=== PATIENT | male | born 1985 | race Caucasian/White ===

== ENCOUNTER 2018-11-02 21:34 | Emergency (ER) | payer SELFPAY ==
--- OUTSIDE RECORDS SUMMARY | 2018-11-02 21:37 | XMS REPORT | Clinical Summary ---
:1985 Author Organization [facility] Address [address] [place] [address] Care Team Providers Name Role Phone Unavailable Primary Care Provider Unavailable Allergies No Known Allergies Medications No known medications Active Problems Problem Noted Date Bipolar 1 disorder with moderate elidia Hallucinations, visual Psychosis Suicidal ideation Encounters Date Type Specialty Care Team Description 10/18/2018 Emergency Emergency Medicine Marbin Smith MD Elevated BP without diagnosis of hypertension (Primary Dx); Danuta Castillo MD Suicidal ideation; Schizophrenia, unspecified type; Schizoaffective disorder, bipolar type after 11/01/2017 Social History Tobacco Use Types Packs/Day Years Used Date Never Smoker Smokeless Tobacco: Never Used Alcohol Use Drinks/Week oz/Week Comments Yes 5-6 Cans of beer 3.0 - 3.6 Sex Assigned at Date Recorded Not on file Job Start Date Occupation Industry Not on file Not on file Not on file Travel History Travel Start Travel End No recent travel history available. Last Filed Vital Signs Vital Sign Reading Time Taken Comments Blood Pressure 136/84 10/18/2018 8:05 PM CDT Pulse 78 10/18/2018 8:05 PM CDT Temperature 36.7 C (98 F) 10/18/2018 8:05 PM CDT Respiratory Rate 18 10/18/2018 8:05 PM CDT Oxygen Saturation 94% 10/18/2018 3:35 PM CDT Inhaled Oxygen Concentration - - Weight - - Height - - Body Mass Index - - Plan of Treatment Health Maintenance Due Date Last Done Comments IMM Influenza Seasonal Nov to April (>/=19 yrs) 11/16/2018 Procedures Procedure Name Priority Date/Time Associated Diagnosis Comments URINALYSIS STAT 10/18/2018 8:02 AM Results for this CDT procedure are in the results section. URINE DRUG SCREEN STAT 10/18/2018 8:02 AM Results for this CDT procedure are in the results section. URINALYSIS STAT 10/18/2018 8:02 AM Results for this CDT procedure are in the results section. BMP POC Routine 10/18/2018 7:49 AM Results for this CDT procedure are in the results section. CBC STAT 10/18/2018 7:43 AM Results for this CDT procedure are in the results section. CBC/DIFF STAT 10/18/2018 7:43 AM Results for this CDT procedure are in the results section. after 11/01/2017 Results URINALYSIS (10/18/2018 8:02 AM CDT) Color Yellow Colorless, Straw, [facility] Yellow Clarity Clear Clear [facility] Spec [place], Ur 1.017 1.001 - 1.035 [facility] pH, Ur 7.0 5.0 - 8.0 [facility] Protein, Ur Negative Negative mg/dL [facility] Glucose, Ur Negative Negative mg/dL [facility] Ketone, Ur 2+ (A) Negative mg/dL [facility] Bilirubin, Ur Negative Negative mg/dL [facility] Nitrite, Ur Negative Negative [facility] Leukocyte Negative Negative mg/dL [facility] Blood, Ur 1+ (A) Negative mg/dL [facility] RBC 2 0 - 4 /HPF [facility] WBC 1 0 - 5 /HPF [facility] Urobilinogen, Ur 2.0 (A) <1.0 EU/dL [facility] Specimen Urine Performing Organization Address City/State/Zipcode Phone Number [facility] [address] [place], [place] [phone] URINE DRUG SCREEN (10/18/2018 8:02 AM CDT) Opiate, Ur Negative Negative [facility] Comment: [facility] Calibrated Standard: Morphine Positive if urine level > hw=265 ng/dL Amphetamine Positive (A) Negative [facility] Comment: [facility] Calibrated Standard: D-Methamphetamine Positive if urine level > oh=5832 ng/mL Barbiturate Negative Negative [facility] Comment: [facility] Calibrated Standard: Secobarbital Positive if urine level is > xm=844 ng/mL Benzodiazepine Negative Negative [facility] Comment: [facility] Calibrated Standard: Lormethazepam Positive if urine level is > bk=032 ng/mL Cocaine Negative Negative [facility] Comment: [facility] Calibrated Standard: Benzoylecgonine Positive if urine level > if=171 ng/dL PCP Negative Negative [facility] Comment: [facility] Calibrated Standard: Phencyclidine Positive if urine level > or=25 ng/dL Cannabinoid Negative Negative [facility] Comment: [facility] Calibrated Standard: 11 nor-delta(9)-THC carboxylic acid Positive if urine level > or=50 ng/mL Specimen Urine - Voided, urine Performing Organization Address [facility] Phone Number [facility] [address] [place] [address] BMP POC (10/18/2018 7:49 AM CDT) Sodium POC 138 136 - 145 [facility] mmol/L [facility] Potassium POC 3.7 3.5 - 5.1 [facility] mmol/L [facility] Chloride POC 100 98 - 107 [facility] mmol/L [facility] TCO2 POC 28 21 - 32 [facility] mmol/L [facility] Urea Nitrogen POC 16 7 - 18 mg/dL [facility] Creatinine POC 0.8 0.6 - 1.3 [facility] mg/dL [facility] Glucose POC 99 74 - 106 [facility] mg/dL [facility] Ionized Calcium 1.01 (L) 1.15 - 1.29 [facility] POC mmol/L [facility] GFR, Estimated >90 >=90 [facility] mL/min/1.73 [facility] m2 Hemoglobin POC 17.3 (H)Comment: 12 - 16 g/dL [facility] Notified Hematocrit POC 51.0 (H) 37.0 - 47.0 % [facility] Specimen Blood, venous Performing Organization Address [facility] Phone Number [facility] [address] [place] [address] CBC (10/18/2018 7:43 AM CDT) WBC 4.0 (L) 4.5 - 12.0 K/uL [facility] RBC 4.94 4.60 - 6.20 [facility] M/uL Hemoglobin 16.4 14.0 - 18.0 [facility] g/dL Hematocrit 48.1 40.0 - 54.0 % [facility] MCV 97.4 (H) 82.0 - 92.0 fL [facility] MCH 33.2 (H) 27.0 - 31.0 pg [facility] MCHC 34.1 32.0 - 36.0 [facility] g/dL RDW 48.1 (H) 35.1 - 43.9 fL [facility] Platelet 209 150 - 400 K/uL [facility] Mean Platelet Volume 10.0 9.4 - 12.4 fL [facility] Percent NRBC 0.0 % [facility] Neutrophil 59.2 34.0 - 67.9 % [facility] Lymphs 23.7 21.8 - 50.0 % [facility] Monocytes 15.7 (H) 5.3 - 12.0 % [facility] Eos 0.2 (L) 0.8 - 5.0 % [facility] Basos 0.5 0.2 - 1.2 % [facility] Immature Granulocytes 0.7 (H) 0.0 - 0.5 % [facility] Neutrophils (Absolute) 2.37 1.78 - 5.36 [facility] K/uL Lymphs (Absolute) 0.95 (L) 1.32 - 3.57 [facility] K/uL Monocytes(Absolute) 0.63 0.30 - 0.82 [facility] K/uL Eos (Absolute) 0.01 (L) 0.04 - 0.54 [facility] K/uL Baso (Absolute) 0.02 0.01 - 0.08 [facility] K/uL Immature Grans (Abs) 0.03 0.00 - 0.03 [facility] K/uL Absolute NRBC 0.00 K/uL [facility] Specimen Blood Performing Organization Address City/State/Zipcode Phone Number [facility] [address] [place] [address] after 11/01/2017 Insurance Payer Benefit Plan / Subscriber ID Effective Phone Address Type Group Dates [facility] xxxxxxxxx 2018-Lily [phone] [address] [employer] [address] [phone] [place] [address] [facility] [address] (Home) [place], [place] [phone] (Work) Marshall Cook Personal/Family Self 1985 [address] (Home) [place], [place] [phone] (Work) Marshall Cook Psych Self [address] [place] [address] (Home) [address] [place], [place] (Work) [phone]
--- OUTSIDE RECORDS SUMMARY | 2018-11-02 21:38 | XMS REPORT ---
:1985 Author Organization [facility] Address [address] [place] [address] [address] [place] [address] Care Team Providers Name Role Phone UNKNOWN, REFFERING Primary Care Provider Unavailable DEJAH SINGH Unavailable Unavailable JADON AGUILAR M.D. Unavailable Unavailable Problems This patient has no known problems. Allergies, Adverse Reactions, Alerts This patient has no known allergies or adverse reactions. Medications This patient has no known medications. Encounters Start End Encounter Admission Attending Care Care Encounter Date/Time Date/Time Type Type Clinicians Facility Department ID 2018-10-18 2018-10-18 Emergency [facility] [id number] 06:08:40 06:08:40 2017-04-02 2017-04-02 Outpatient [facility] [id number] 00:00:00 00:00:00 2017-03-29 2017-03-29 Emergency [facility] [id number] 00:00:48 00:00:48 2017-03-22 2017-03-22 Emergency E [facility] [id number] 11:46:00 11:46:00 DEJAH 2017-03-16 2017-03-20 Inpatient [facility] [id number] 20:46:00 13:41:00 Erasmo DIOP 2017-01-26 2017-01-26 Outpatient [facility] [id number] 00:00:00 00:00:00 Results Test Description Test Time Test Comments Text Results Atomic Results Result Comments Comprehensive Metabolic Panel 2017-03-22 13:14:00 Test Item Value Reference Range Comments Sodium (test code=NA) 141 mmol/L 135-145 Potassium (test code=K) 3.8 mmol/L 3.5-5.1 Chloride (test code=CL) 103 mmol/L 98-105 Carbon Dioxide (test 28 mmol/L 22-29 code=CO2) Glucose (test code=GLU) 83 mg/dL 70-115 Blood Urea Nitrogen (test 17 mg/dL 6-20 code=BUN) Creatinine (test code=CREAT) 0.9 mg/dL 0.7-1.2 Calcium (test code=CA) 9.6 mg/dL 8.3-10.5 Prot Total (test code=TP) 7.3 g/dL 6.4-8.3 Albumin (test code=ALB) 4.6 g/dL 3.5-5.2 A/G Ratio (test 1.7 Ratio code=AGRATIO) Globulin (test code=GLOB) 2.7 2.9-3.1 Bili Total (test code=TBIL) 1.1 mg/dL 0.1-0.9 Alk Phos (test code=APHOS) 73 U/L 40-129 AST (test code=AST) 75 U/L 1-40 ALT (test code=ALT) 60 U/L 1-41 BUN/Creatinine Ratio (test 18.9 code=BCRATIO) Anion Gap (test code=AGAP) 10 mmol/L 7-16 Estimated GFR (test >60 mL/min/1.73m2 eGFR (estimated Glomerular code=GFR) Filtration Rate) is an estimated value,calculated from the patient's serum creatinine using the MDRD equation.It is NOT the patient's actual GFR. The eGFR provides a more clinicallyuseful measure of kidney disease than serum creatinine alone.This calculation takes sex and race into account, if the informationis provided. If the race is not provided, and the patient isAfrican-Austrian, multiply by 1.212. If sex is not provided, and thepatient is female, multiply by 0.742. Results for patients <18 years ofage have not been validated by the MDRD study and should be interpretedwith caution.eGFR Result Interpretation:eGFR > or=60 is in the Normal RangeeGFR < 60 may mean kidney diseaseeGFR < 15 may mean kidney failureRanges recommended by the National Kidney Foundation,http://nkdep.nih.go v [id number] 13:09:00 Test Item Value Reference Range Comments Amphetamine (test code=AMPH) Negative Negative For diagnostic purposes only, positive results should always be assessedin conjunctionwith the patient's medical history,clinical examination and otherfindings.To fulfill legal requirements, a more specific alternate chemical methodmust be used inorder to obtain a Confirmed analytical result. GC/MS is the preferred confirmatory method. Barbiturates (test code=EARL) Negative Negative Benzodiazepine (test Negative Negative code=MILAGROS) Cocaine (test code=COCA) POSITIVE Negative Methadone (test code=MTHD) Negative Negative Opiates (test code=OPIA) Negative Negative PCP (test code=PCP) Negative Negative Propoxyphene (test Negative Negative code=PROPOX) THC (test code=THC) Negative Negative Alcohol, Urine (test <0.01 g/dL 0.00-0.01 code=ETOHU) Urinalysis [id number] 12:59:00 Test Item Value Reference Range Comments Color (test code=COLOR) Yellow Yellow,Straw,Pl yellow Clarity (test code=CLAR) Clear Clear Specific [place] (test 1.027 1.001-1.035 code=SPGR) pH (test code=PH) 8.0 5.0-9.0 Ketone (test code=KET) 15 mg/dL Negative Glucose (test code=GLUCUR) Negative mg/dL Negative Protein (test code=PROT) Negative mg/dL Negative Bilirubin (test code=BILI) See IctoTest mg/dL Negative Occult Blood (test code=UDOB) Negative Negative Urobilinogen (test code=UROB) 8.0 mg/dL 0.2-1.0 Nitrite (test code=NIT) Negative Negative Leuk Esterase (test code=LEUK) Negative Negative Ictotest (test code=ICTOTEST) Confirmed Negative Negative,Confirmed Negative Micros Exam (test code=MEXAM) Indicated Epithelial Cells (test 0-2 /LPF 0-30 code=EPI) WBC, Urine (test code=UWBC) 0-5 /HPF 0-5 RBC, Urine (test code=URBC) 0-3 /HPF 0-5 Bacteria (test code=BACT) Few /HPF CBC with [id number] 12:42:00 Test Item Value Reference Range Comments WBC (test code=WBC) 8.0 K/cumm 4.4-10.5 RBC (test code=RBC) 4.35 M/cumm 4.10-5.70 Hemoglobin (test code=HGB) 14.6 gm/dL 13.4-17.4 Hematocrit (test code=HCT) 42.5 % 38.7-52.0 MCV (test code=MCV) 97.7 fL 80-100 MCH (test code=MCH) 33.4 pg 27.0-32.5 MCHC (test code=MCHC) 34.3 g/dL 32.0-37.5 RDW (test code=RDW) 12.5 % 11.5-14.5 Platelet Count (test code=PLTCT) 277 K/cumm 140-440 MPV (test code=MPV) 6.5 fL Diff Method (test code=DIFFM) Auto Neutrophil (test code=NEUT) 61.9 % 36-70 Lymphocyte (test code=LYMPH) 28.7 % 12-44 Monocyte (test code=MONO) 8.0 % 0-11 Eosinophil (test code=EOS) 1.2 % 0-7 Basophil (test code=BASO) 0.3 % 0-2 Neutro Abs (test code=ANEUT) 5.0 K/cumm 1.6-7.4 Lymph Abs (test code=ALYMPH) 2.3 K/cumm 0.5-4.6 [place] Abs (test code=AMONO) 0.6 K/cumm 0.0-1.2 Eos Abs (test code=AEOS) 0.09 K/cumm 0.00-0.74 Baso Abs (test code=ABASO) 0.0 K/cumm 0.00-0.21 Hepatic Function [id number] 18:55:00 Test Item Value Reference Range Comments Prot Total (test code=TP) 6.0 g/dL 6.4-8.3 Albumin (test code=ALB) 3.9 g/dL 3.5-5.2 A/G Ratio (test code=AGRATIO) 1.9 Ratio Globulin (test code=GLOB) 2.1 2.9-3.1 Bili Total (test code=TBIL) 0.5 mg/dL 0.1-0.9 Bili Direct (test code=DBIL) <0.2 mg/dL 0.0-0.3 Bili Indirect (test code=IBIL) 0.4 Alk Phos (test code=APHOS) 59 U/L 40-129 AST (test code=AST) 56 U/L 1-40 ALT (test code=ALT) 47 U/L 1-41 HIV [id number] 12:45:00 Test Item Value Reference Range Comments HIV 1/2 Antibody (test Non-Reactive Non-Reactive HIV1/2 Antibody screen result code=HIV1/2AB) indicates the absence of HIV1 and [id number].However, A Non-Reactive screen result does not rule out exposure orinfection. If an acute infection is suspected, HIV RNA Quantitative is recommended. P24 Antigen (test Non-Reactive Non-Reactive P24 Ag screen result indicates code=P24) the absence of P24 antigen, which is anindicator of HIV-1 acute infection.However, A Non-Reactive screen does not rule out exposure or infection.If acute HIV-1 is suspected, HIV RNA Quantitative is recommended. RPR, [id number] 21:30:00 Test Item Value Reference Range Comments RPR (test code=RPR) Non-Reactive Non-Reactive Thyroid Stimulating Hormone (TSH)2017-03-17 09:55:00 Test Item Value Reference Range Comments TSH (test code=TSH) 0.94 mIU/mL 0.270-4.200 Lipid [id number] 09:53:00 Test Item Value Reference Range Comments Cholesterol (test 124 mg/dL 0-200 code=CHOL) Triglycerides (test 61 mg/dL 9-200 code=TRIG) HDL (test code=HDL) 47 mg/dL 40-60 Chol/HDL (test 2.6 Ratio 0.0-5.0 code=CHOLPHDL) LDL, Calculated (test 65 0-130 (NOTE)RISK OF HEART code=LDLC) DISEASEPublished by Austrian Heart AssociationAnalyte Optimal Boderline Increased RiskCHOL <200 200-239 >240TRIG <150 150-199 >200HDL Male: >60 <40HDL Female: >60 <50LDL <100 130-159 >160LDL NEAR OPTIMAL IS 100-129 VLDL (test code=VLDL) 12 mg/dL 5-40 LDL/HDL (test code=LDLPHDL) 1 Urinalysis [id number] 15:09:00 Test Item Value Reference Range Comments Color (test code=COLOR) Yellow Yellow,Straw,Pl yellow Clarity (test code=CLAR) Clear Clear Specific [place] (test code=SPGR) 1.028 1.001-1.035 pH (test code=PH) 5.0 5.0-9.0 Ketone (test code=KET) 150 mg/dL Negative Glucose (test code=GLUCUR) Negative mg/dL Negative Protein (test code=PROT) 25 mg/dL Negative Bilirubin (test code=BILI) Negative mg/dL Negative Occult Blood (test code=UDOB) Small Negative Urobilinogen (test code=UROB) 0.2 mg/dL 0.2-1.0 Nitrite (test code=NIT) Negative Negative Leuk Esterase (test code=LEUK) Negative Negative Micros Exam (test code=MEXAM) Indicated Epithelial Cells (test code=EPI) 0-2 /LPF 0-30 WBC, Urine (test code=UWBC) 0-5 /HPF 0-5 RBC, Urine (test code=URBC) 0-3 /HPF 0-5 Bacteria (test code=BACT) Few /HPF Casts (test code=CASTS) 0-1 Granular /HPF Comprehensive Metabolic [id number] 14:24:00 Test Item Value Reference Range Comments Sodium (test code=NA) 138 mmol/L 135-145 Potassium (test code=K) 3.6 mmol/L 3.5-5.1 Chloride (test code=CL) 99 mmol/L 98-105 Carbon Dioxide (test 25 mmol/L 22-29 code=CO2) Glucose (test code=GLU) 116 mg/dL 70-115 Blood Urea Nitrogen 30 mg/dL 6-20 (test code=BUN) Creatinine (test 1.0 mg/dL 0.7-1.2 code=CREAT) Calcium (test code=CA) 9.0 mg/dL 8.3-10.5 Prot Total (test 6.8 g/dL 6.4-8.3 code=TP) Albumin (test code=ALB) 4.5 g/dL 3.5-5.2 A/G Ratio (test 2.0 Ratio code=AGRATIO) Globulin (test 2.3 2.9-3.1 code=GLOB) Bili Total (test 2.0 mg/dL 0.1-0.9 code=TBIL) Alk Phos (test 69 U/L 40-129 code=APHOS) AST (test code=AST) 123 U/L 1-40 ALT (test code=ALT) 57 U/L 1-41 BUN/Creatinine Ratio 30.0 (test code=BCRATIO) Anion Gap (test 14 mmol/L 7-16 code=AGAP) Estimated GFR (test >60 mL/min/1.73m2 eGFR (estimated Glomerular code=GFR) Filtration Rate) is an estimated value,calculated from the patient's serum creatinine using the MDRD equation.It is NOT the patient's actual GFR. The eGFR provides a more clinicallyuseful measure of kidney disease than serum creatinine alone.This calculation takes sex and race into account, if the informationis provided. If the race is not provided, and the patient isAfrican-Austrian, multiply by 1.212. If sex is not provided, and thepatient is female, multiply by 0.742. Results for patients <18 years ofage have not been validated by the MDRD study and should be interpretedwith caution.eGFR Result Interpretation:eGFR > or=60 is in the Normal RangeeGFR < 60 may mean kidney diseaseeGFR < 15 may mean kidney failureRanges recommended by the National Kidney Foundation,http://nkdep.nih .gov [id number] 14:20:00 Test Item Value Reference Range Comments Amphetamine (test code=AMPH) POSITIVE Negative For diagnostic purposes only, positive results should always be assessedin conjunctionwith the patient's medical history,clinical examination and otherfindings.To fulfill legal requirements, a more specific alternate chemical methodmust be used inorder to obtain a Confirmed analytical result. GC/MS is the preferred confirmatory method. Barbiturates (test code=EARL) Negative Negative Benzodiazepine (test Negative Negative code=MILAGROS) Cocaine (test code=COCA) Negative Negative Methadone (test code=MTHD) Negative Negative Opiates (test code=OPIA) Negative Negative PCP (test code=PCP) Negative Negative Propoxyphene (test Negative Negative code=PROPOX) THC (test code=THC) Negative Negative Alcohol, Urine (test <0.01 g/dL 0.00-0.01 code=ETOHU) CBC with [id number] 14:08:00 Test Item Value Reference Range Comments WBC (test code=WBC) 8.5 K/cumm 4.4-10.5 RBC (test code=RBC) 4.20 M/cumm 4.10-5.70 Hemoglobin (test code=HGB) 13.5 gm/dL 13.4-17.4 Hematocrit (test code=HCT) 36.5 % 38.7-52.0 MCV (test code=MCV) 86.8 fL 80-100 MCH (test code=MCH) 32.1 pg 27.0-32.5 MCHC (test code=MCHC) 37.0 g/dL 32.0-37.5 RDW (test code=RDW) 12.4 % 11.5-14.5 Platelet Count (test code=PLTCT) 229 K/cumm 140-440 MPV (test code=MPV) 9.4 fL Diff Method (test code=DIFFM) Auto Neutrophil (test code=NEUT) 62.8 % 36-70 Lymphocyte (test code=LYMPH) 25.5 % 12-44 Monocyte (test code=MONO) 10.7 % 0-11 Eosinophil (test code=EOS) 0.7 % 0-7 Basophil (test code=BASO) 0.3 % 0-2 Neutro Abs (test code=ANEUT) 5.4 K/cumm 1.6-7.4 Lymph Abs (test code=ALYMPH) 2.2 K/cumm 0.5-4.6 [place] Abs (test code=AMONO) 0.9 K/cumm 0.0-1.2 Eos Abs (test code=AEOS) 0.06 K/cumm 0.00-0.74 Baso Abs (test code=ABASO) 0.0 K/cumm 0.00-0.21
[2018-11-02 22:27] LABS: Absolute Lymphocytes (CBC) 1.4 K/uL (0.7-4.9); Basophils % 0.4 % (0-1.3); Hematocrit 47.5 % (39.6-49.0); MPV 8.4 fL (7.6-11.3); RBC Red Blood Cell Count 4.85 M/uL (4.33-5.43)
[2018-11-02 22:48] LABS: BUN Blood Urea Nitrogen 19 mg/dL (7-18); Bicarbonate 29 mmol/L (21-32); Glucose Level 85 mg/dL (74-106); Potassium 3.5 mmol/L (3.5-5.1); Sodium Level 142 mmol/L (136-145); Troponin (Emerg Dept Use Only) < 0.02 ng/mL (0.0-0.045)
--- NOTE | 2018-11-02 23:16 | RAD REPORT ---
EXAM DESCRIPTION: Lyric Single View11/02/2018 10:31 pm CLINICAL HISTORY: Chest pain COMPARISON: 2018 FINDINGS: The lungs appear clear of acute infiltrate. The heart is normal size IMPRESSION: No acute abnormalities displayed
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
--- NOTE | 2018-11-02 23:17 | EDPHYS ---
Physician Documentation [facility] Name: Marshall Cook Age: 33 yrs Sex: Male : 1985 Arrival Date: 11/02/2018 Time: 21:37 Bed 17 Private MD: ED Physician Kennedy Bonds HPI: 11/02 23:13 This 33 yrs old Male presents to ER via EMS with complaints of chest pain. gs 23:13 The patient or guardian reports chest pain that is located primarily in the anterior gs chest wall. The pain does not radiate. Associated signs and symptoms: Pertinent negatives: shortness of breath. The chest pain is described as dull. Duration: The patient or guardian reports multiple episodes, that wax and wane, with no pattern, the episodes last approximately 5 second(s). Modifying factors: The symptoms are alleviated by nothing. the symptoms are aggravated by nothing. Severity of pain: At its worst the pain was moderate in the emergency department the pain has resolved. The patient has experienced similar episodes in the past, a few times. Historical: - Allergies: 21:43 ketorolac tromethamine; bb 21:43 Naproxen; bb 21:43 Tramadol HCl; bb - Home Meds: 21:43 Depakote Oral [Active]; Haldol Oral [Active]; bb - PMHx: 21:43 Anxiety; Schizophrenia; bb - PSHx: 21:43 None; bb - Immunization history:: Adult Immunizations unknown. - Social history:: Smoking status: Patient/guardian denies using tobacco, Patient/guardian denies using alcohol, street drugs. - Ebola Screening: : No symptoms or risks identified at this time. ROS: 23:13 All other systems are negative. gs Exam: 23:13 Head/Face: Normocephalic, atraumatic. Eyes: Pupils equal round and reactive to light, gs extra-ocular motions intact. Lids and lashes normal. Conjunctiva and sclera are non-icteric and not injected. Cornea within normal limits. Periorbital areas with no swelling, redness, or edema. ENT: Nares patent. No nasal discharge, no septal abnormalities noted. Tympanic membranes are normal and external auditory canals are clear. Oropharynx with no redness, swelling, or masses, exudates, or evidence of obstruction, uvula midline. Mucous membranes moist. Neck: Trachea midline, no thyromegaly or masses palpated, and no cervical lymphadenopathy. Supple, full range of motion without nuchal rigidity, or vertebral point tenderness. No Meningismus. Chest/axilla: Normal chest wall appearance and motion. Nontender with no deformity. No lesions are appreciated. Cardiovascular: Regular rate and rhythm with a normal S1 and S2. No gallops, murmurs, or rubs. Normal PMI, no JVD. No pulse deficits. Respiratory: Lungs have equal breath sounds bilaterally, clear to auscultation and percussion. No rales, rhonchi or wheezes noted. No increased work of breathing, no retractions or nasal flaring. Abdomen/GI: Soft, non-tender, with normal bowel sounds. No distension or tympany. No guarding or rebound. No evidence of tenderness throughout. Back: No spinal tenderness. No costovertebral tenderness. Full range of motion. Skin: Warm, dry with normal turgor. Normal color with no rashes, no lesions, and no evidence of cellulitis. MS/ Extremity: Pulses equal, no cyanosis. Neurovascular intact. Full, normal range of motion. Neuro: Awake and alert, GCS 15, oriented to person, place, time, and situation. Cranial nerves II-XII grossly intact. Motor strength 5/5 in all extremities. Sensory grossly intact. Cerebellar exam normal. Normal gait. 23:13 Constitutional: The patient appears alert, awake. 23:13 ECG was reviewed by the Attending Physician. Vital Signs: 21:43 BP 137 / 87; Pulse 112; Resp 16 S; Temp 97.9(O); Pulse Ox 99% on R/A; Weight 74.84 kg bb (R); Height 5 ft. 10 in. (177.80 cm) (R); Pain 7/10; 23:25 BP 144 / 89; Pulse 115; Resp 18 S; Pulse Ox 97% on R/A; jd3 21:43 Body Mass Index 23.67 (74.84 kg, 177.80 cm) bb MDM: 22:23 Patient medically screened. gs 23:14 Differential diagnosis: abnormal EKG, coronary artery disease chest wall pain, gs pleurisy. Data reviewed: vital signs, nurses notes, lab test result(s), EKG, radiologic studies. Counseling: I had a detailed discussion with the patient and/or guardian regarding: the historical points, exam findings, and any diagnostic results supporting the discharge/admit diagnosis, lab results, radiology results, the need for outpatient follow up. Response to treatment: the patient's symptoms have resolved after treatment, the patient's pain is gone. 11/02 22:10 Order name: Basic Metabolic Panel; Complete Time: 23:11 11/02 22:10 Order name: CBC with Diff; Complete Time: 23:11 11/02 22:04 Order name: EKG; Complete Time: 22:05 [facility] 11/02 22:04 Order name: EKG - Nurse/Tech; Complete Time: 22:04 [facility] 11/02 22:10 Order name: Troponin (emerg Dept Use Only); Complete Time: 23:11 11/02 22:10 Order name: XRAY Chest (1 view) 11/02 22:10 Order name: Cardiac monitoring; Complete Time: 22:12 11/02 22:10 Order name: Labs collected and sent; Complete Time: 22:22 11/02 22:10 Order name: O2 Per Protocol; Complete Time: 22:12 11/02 22:10 Order name: O2 Sat Monitoring; Complete Time: 22:12 EC:13 Rate is 103 beats/min. QRS [place] is Normal. No Q waves. T waves are Normal. No ST gs changes noted. Clinical impression: Sinus tachycardia. Interpreted by me. Administered Medications: No medications were administered Disposition: 11/02/18 23:15 Discharged to Home. Impression: Chest pain, unspecified. - Condition is Stable. - Discharge Instructions: Nonspecific Chest Pain. - Medication Reconciliation Form, Thank You Letter, Antibiotic Education, Prescription Opioid Use form. - Follow up: Private Physician; When: 2 - 3 days; Reason: Re-evaluation by your physician. Signatures: Dispatcher [employer] Mally De La O RN RN bb Starr, Gregory, MD MD gs Davies, Jonathon, RN RN jd3 Corrections: (The following items were deleted from the chart) 23:25 23:15 11/02/2018 23:15 Discharged to Home. Impression: Chest pain, unspecified. jd3 Condition is Stable. Forms are Medication Reconciliation Form, Thank You Letter, Antibiotic Education, Prescription Opioid Use. Follow up: Private Physician; When: 2 - 3 days; Reason: Re-evaluation by your physician. gs
[2018-11-02 23:48] VITALS: TEMP 97.9
[2018-11-02 23:49] VITALS: BP 144/89; O2SAT 97
--- NOTE | 2018-11-03 07:26 | EKG ---
Test Date: 2018-11-02 Test Time: 22:00:31 Associate Professor Of History: AUBRIE MEASUREMENT RESULTS: Intervals: Rate: 103 NV: 142 QRSD: 82 QT: 320 QTc: 419 Inez: P: 24 NV: 142 QRS: 45 T: 17 INTERPRETIVE STATEMENTS: Sinus tachycardia Otherwise normal ECG Compared to ECG 04/02/2017 13:45:57 Ventricular premature complex(es) no longer present Electronically Signed On 11-03-18 07:25:09 CDT by Cj Anderson
== END 2018-11-02 23:25 | disposition home or self-care (01) ==
LOC: ER 21:34
DX: R07.9 Chest pain, unspecified (principal); Z88.6 Allergy status to analgesic agent; Z88.8 Allergy status to other drugs, medicaments and biological substances; F41.8 Other specified anxiety disorders
CPT/HCPCS: 36415; 71045; 80048; 84484; 85025; 93005; 99284

== ENCOUNTER 2019-03-18 13:20 | Emergency (ER) | payer OTHER ==
--- NOTE | 2019-03-18 14:06 | ER ---
Nurse's Notes [facility] Name: Marshall Cook Age: 33 yrs Sex: Male : 1985 Arrival Date: 03/18/2019 Time: 13:14 Bed 7 Private MD: Diagnosis: Schizophrenia, unspecified;Restlessness and agitation Presentation: 03/18 13:15 Presenting complaint: EMS states: PD was called because patient was pacing and jogging aj1 down the street. When they arrived patient was mumbling, incoherent and not making any sense, so EMS was called and patient was brought to the hospital for evaluation. Patient denies SI or HI at this time. Transition of care: patient was not received from another setting of care. Onset of symptoms was March 18, 2019. Risk Assessment: Do you want to hurt yourself or someone else? Patient reports no desire to harm self or others. Initial Sepsis Screen: Does the patient meet any 2 criteria? HR > 90 bpm. No. Patient's initial sepsis screen is negative. Does the patient have a suspected source of infection? No. Patient's initial sepsis screen is negative. Care prior to arrival: None. 13:15 Method Of Arrival: EMS: [facility] aj 13:15 Acuity: NICOLE 2 aj1 Triage Assessment: 13:17 General: Appears in no apparent distress. unkempt, Behavior is anxious, restless. Pain: aj1 Denies pain. Historical: - Allergies: 13:17 No Known Allergies; aj1 - Home Meds: 13:17 Fluoxetine Oral [Active]; aj1 - Immunization history:: Flu vaccine status is unknown. - Coronavirus screen:: The patient has NOT traveled to [place], [place], or [place] in the past 14 days. - Social history:: Smoking status: Patient reports the use of cigarette tobacco products. - Family history:: not pertinent. - Ebola Screening: : Patient denies travel to an Ebola-affected area in the 21 days before illness onset. - Hospitalizations: : No recent hospitalization is reported. Screenin:15 Abuse screen: Denies threats or abuse. Denies injuries from another. Nutritional aj1 screening: No deficits noted. Tuberculosis screening: No symptoms or risk factors identified. 14:10 Fall Risk None identified. aj1 Assessment: 13:15 General: Appears in no apparent distress. unkempt, Behavior is agitated, restless. aj1 Pain: Denies pain. Neuro: Level of Consciousness is awake, alert, obeys commands, Oriented to person, place, time, situation. Cardiovascular: Patient's skin is warm and dry. Respiratory: Airway is patent Respiratory effort is even, unlabored, Respiratory pattern is regular, symmetrical. GI: No signs and/or symptoms were reported involving the gastrointestinal system. : No signs and/or symptoms were reported regarding the genitourinary system. EENT: No signs and/or symptoms were reported regarding the EENT system. Derm: No signs and/or symptoms reported regarding the dermatologic system. Skin is pink, warm \\T\\ dry. normal. Musculoskeletal: No signs and/or symptoms reported regarding the musculoskeletal system. Circulation, motion, and sensation intact. 13:25 Reassessment: Patient states that he does not want an IV or blood work done, states aj1 "That's my right, to refuse blood work, right?" Notified Dr. Mathews. 13:56 Reassessment: Patient also refuses EKG and medication, states "I dont really like all aj1 that medical attention, I'm fine and I'm happy with my blood pressure" Explained to patient that his heart rate is high, patient states "I know, I've been running" Patient will not allow us to recheck his vital signs at this time. Patient states that he will not take any medications either. States "I dont like those medicines, I don't like the way they make me feel. I usually just run and yell and then I feel better, but they (the police) said I can't go around yelling anymore" Notified Dr. Mathews. Vital Signs: 13:17 BP 142 / 104; Pulse 140; Resp 20; Temp 99.0; Pulse Ox 99% on R/A; aj1 ED Course: 13:14 Patient arrived in ED. ss 13:14 Erin Chavis, RN is Primary Nurse. aj1 13:14 Francisco Mathews MD is Attending Physician. rn 13:15 Patient has correct armband on for positive identification. aj1 13:15 No provider procedures requiring assistance completed. aj1 13:17 Triage completed. aj1 13:17 Arm band placed on. aj1 14:10 Patient did not have IV access during this emergency room visit. aj1 Administered Medications: No medications were administered Outcome: 14:05 Discharge ordered by . rn 14:11 Discharged to home ambulatory. aj1 14:11 Condition: good 14:11 Discharge instructions given to patient, Instructed on discharge instructions, follow up and referral plans. Demonstrated understanding of instructions, follow-up care. 14:11 Patient left the ED. aj1 Signatures: Erin Chavis RN RN aj1 Francisco Mathews MD MD rn Smirch, Shelby, RN RN ss
--- NOTE | 2019-03-18 14:06 | EDPHYS ---
Physician Documentation [facility] Name: Marshall Cook Age: 33 yrs Sex: Male : 1985 Arrival Date: 03/18/2019 Time: 13:14 Bed 7 Private MD: ED Physician Francisco Mathews HPI: 03/18 13:22 This 33 yrs old Male presents to ER via EMS with complaints of Psych Problem. rn 13:22 Onset: The symptoms/episode began/occurred at an unknown time. Severity of symptoms: At rn their worst the symptoms were. 13:24 The patient has experienced similar episodes in the past. The patient has not recently rn seen a physician. Per EMS, 911 called because of "strange behavior" in public, patient states has schizophrenia, doesn't take his prescribed medication, reports hallucinations and states prefers hallucinations then talking to real people. Denies trauma or drug use. Denies suicidal ideation/homicidal ideation. . Historical: - Allergies: 13:17 No Known Allergies; aj1 - Home Meds: 13:17 Fluoxetine Oral [Active]; aj1 - Immunization history:: Flu vaccine status is unknown. - Coronavirus screen:: The patient has NOT traveled to [place], [place], or [place] in the past 14 days. - Social history:: Smoking status: Patient reports the use of cigarette tobacco products. - Family history:: not pertinent. - Ebola Screening: : Patient denies travel to an Ebola-affected area in the 21 days before illness onset. - Hospitalizations: : No recent hospitalization is reported. ROS: 13:24 Constitutional: Negative for fever, chills, and weight loss, Eyes: Negative for injury, rn pain, redness, and discharge, Neck: Negative for injury, pain, and swelling, Cardiovascular: Negative for chest pain, palpitations, and edema, Respiratory: Negative for shortness of breath, cough, wheezing, and pleuritic chest pain, Abdomen/GI: Negative for abdominal pain, nausea, vomiting, diarrhea, and constipation, MS/Extremity: Negative for injury and deformity, Skin: Negative for injury, rash, and discoloration, Neuro: Negative for headache, weakness, numbness, tingling, and seizure, Psych: + hallucinations, neg for suicidal or homicidal ideations. 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 Eyes: Pupils equal round and reactive to light, extra-ocular motions intact. Lids and lashes normal. Conjunctiva and sclera are non-icteric and not injected. Cornea within normal limits. Periorbital areas with no swelling, redness, or edema. ENT: dry MM Cardiovascular: tachycardic, regular Respiratory: No increased work of breathing, no retractions or nasal flaring. Abdomen/GI: soft, non-tender MS/ Extremity: Pulses equal, no cyanosis. Neurovascular intact. Full, normal range of motion. Equal circumference. Neuro: Awake and alert, GCS 15, oriented to person, place, time, and situation. Cranial nerves II-XII grossly intact. Motor strength 5/5 in all extremities. Sensory grossly intact. Cerebellar exam normal. Normal gait. Vital Signs: 13:17 BP 142 / 104; Pulse 140; Resp 20; Temp 99.0; Pulse Ox 99% on R/A; aj1 MDM: 13:14 Patient medically screened. rn 14:03 Differential diagnosis: psychosis secondary to non-compliance. Data reviewed: vital rn signs, nurses notes, and as a result, I will discharge patient. Counseling: I had a detailed discussion with the patient and/or guardian regarding: the historical points, exam findings, and any diagnostic results supporting the discharge/admit diagnosis, the need for outpatient follow up, to return to the emergency department if symptoms worsen or persist or if there are any questions or concerns that arise at home. Special discussion: I discussed with the patient/guardian in detail that at this point there is no indication for admission to the hospital. It is understood, however, that if the symptoms persist or worsen the patient needs to return immediately for re-evaluation. Based on the history and exam findings, there is no indication for further emergent testing or inpatient evaluation. I discussed with the patient/guardian the need to see the psychiatrist for further evaluation of the symptoms. ED course: Pt refuses all care, doesn't want evaluation or bloodwork, was worke dup and may explain initial vitals, continuously denies suicidal or homicidal ideation. Reports is happy hallucinating and chooses to not take his meds. After long discussion, patient wants to leave. Is currently calm and following commands, oriented, and understands if leaves needs to take psych meds. . 03/18 13:15 Order name: EKG - Nurse/Tech rn 03/18 13:15 Order name: IV Saline Lock rn 03/18 13:15 Order name: Labs collected and sent rn 03/18 13:15 Order name: Urine Dipstick-Ancillary (obtain specimen) rn Administered Medications: No medications were administered Disposition: 03/18/19 14:05 Discharged to Home. Impression: Schizophrenia, unspecified, Restlessness and agitation. - Condition is Stable. - Discharge Instructions: Schizophrenia. - Medication Reconciliation Form, Thank You Letter, Antibiotic Education, Prescription Opioid Use form. - Follow up: Private Physician; When: As needed; Reason: Recheck today's complaints, Re-evaluation by your physician. - Problem is chronic. - Symptoms are unchanged. Signatures: Dispatcher [employer] EDErin Perez RN RN aj1 Francisco Mathews MD MD corner bead operator: (The following items were deleted from the chart) 14:11 14:05 03/18/2019 14:05 Discharged to Home. Impression: Schizophrenia, unspecified; aj1 Restlessness and agitation. Condition is Stable. Forms are Medication Reconciliation Form, Thank You Letter, Antibiotic Education, Prescription Opioid Use. Follow up: Private Physician; When: As needed; Reason: Recheck today's complaints, Re-evaluation by your physician. Problem is chronic. Symptoms are unchanged. rn
--- OUTSIDE RECORDS SUMMARY | 2019-03-18 14:09 | XMS REPORT ---
:1985 [facility] [address] [place] [address] [address] [place] [address] Care Team Providers Name Role Phone UNKNOWN, [...] Date/Time Type Type Clinicians Facility Department ID 2019-02-21 2019-02-[address] [facility] [id number] 00:00:00 00:00:00 2019-02-01 2019-02-01 Outpatient [facility] MED [id number] 22:11:49 22:11:49 2018-10-18 2018-10-18 Emergency [facility] MED [id number] 06:08:40 06:08:40 2017-04-02 2017-04-[address] [facility] [id number] 00:00:00 00:00:00 2017-03-29 2017-03-29 Emergency [facility] [id number] 00:00:48 00:00:48 2017-03-22 2017-03-22 Emergency [facility] [id number] 11:46:00 11:46:00 DEJAH 2017-03-16 2017-03-20 Inpatient E [facility] MED [id number] 20:46:00 13:41:00 Erasmo DIOP 2017-01-26 2017-01-26 [facility] [id number] 00:00:00 00:00:00 Results Test Description Test Time Test Comments Text Results Atomic Results Result Comments RPR Qualitative 2019-02-20 14:01:19 Test Item Value Reference Range Comments RPR Qual (test code=RPR Qual) Non-Reactive Non-Reactive Reactive Control (test code=Reactive Control) Reactive Weak Reactive Control (test code=Weak Reactive Control) Weak Reactive Non-Reactive Control (test code=Non-Reactive Control) Non-Reactive Lot # (test code=Lot #) [id number] Expiration Dt (test code=Expiration Dt) 12-17-2019 Thyroid Stimulating [id number] 09:09:16 Test Item Value Reference Range Comments TSH (test code=TSH) 0.418 mIU/mL 0.270-4.200 Lipid [id number] 08:59:32 Test Item Value Reference Range Comments Cholesterol Total (test 131 mg/dL 0-200 RISK OF HEART DISEASEPublished code=Cholesterol Total) by [place] [employer] Analyte Optimal Borderline Increased RiskCHOL <200 200-239 >240TRIG <150 150-199 >200HDL Male >60 <40HDL Female >60 <50LDL <100 130-159 >160LDL Near optimal is 100-129 Triglycerides (test 81 mg/dL 9-200 code=Triglycerides) HDL (test code=HDL) 40 mg/dL 40-60 LDL (test code=LDL) 75 mg/dL 0-130 The equation being used in this calculation is LDL=(Chol - HDL) - (Trig / 5) VLDL (test code=VLDL) 16 mg/dL 5-40 The equation being used in this calculation is VLDL=Trig / 5 Chol/HDL (test 3.3 ratio 0.0-5.0 code=Chol/HDL) LDL/HDL Ratio (test 2 The equation being used in this code=LDL/HDL Ratio) calculation is LDL/HDL Ratio=LDL Calc/HDL Chol Thyroid Stimulating [id number] 10:03:42 Test Item Value Reference Range Comments TSH (test code=TSH) 1.560 mIU/mL 0.270-4.200 Lipid [id number] 09:52:10 Test Item Value Reference Range Comments Cholesterol Total (test 210 mg/dL 0-200 RISK OF HEART DISEASEPublished code=Cholesterol Total) by [place] [employer] Analyte Optimal Borderline Increased RiskCHOL <200 200-239 >240TRIG <150 150-199 >200HDL Male >60 <40HDL Female >60 <50LDL <100 130-159 >160LDL Near optimal is 100-129 Triglycerides (test 88 mg/dL 9-200 code=Triglycerides) HDL (test code=HDL) 55 mg/dL 40-60 LDL (test code=LDL) 138 mg/dL 0-130 The equation being used in this calculation is LDL=(Chol - HDL) - (Trig / 5) VLDL (test code=VLDL) 18 mg/dL 5-40 The equation being used in this calculation is VLDL=Trig / 5 Chol/HDL (test 3.8 ratio 0.0-5.0 code=Chol/HDL) LDL/HDL Ratio (test 2 The equation being used in this code=LDL/HDL Ratio) calculation is LDL/HDL Ratio=LDL Calc/HDL Chol RPR [id number] 11:37:43 Test Item Value Reference Range Comments RPR Qual (test code=RPR Qual) Non-Reactive Non-Reactive Reactive Control (test code=Reactive Control) Reactive Weak Reactive Control (test code=Weak Reactive Weak Reactive Control) Non-Reactive Control (test code=Non-Reactive Non-Reactive Control) Lot # (test code=Lot #) [id number] Expiration Dt (test code=Expiration Dt) 12-17-19 Urinalysis [id number] 23:07:47 Test Item Value Reference Range Comments UA WBC (test code=UA WBC) None Seen 0-5 UA RBC (test code=UA RBC) None Seen 0-5 UA Bacteria (test code=UA Bacteria) None Seen UA Squam Epithelial (test code=UA Squam 0-5 Epithelial) Comprehensive Metabolic [id number] 22:29:50 Test Item Value Reference Range Comments Sodium Level (test code=Sodium Level) 144.0 mmol/L 135.0-145.0 Potassium Level (test code=Potassium Level) 4.6 mmol/L 3.5-5.1 Chloride Level (test code=Chloride Level) 104 mmol/L 98-105 CO2 (test code=CO2) 24 mmol/L 22-29 Anion Gap (test code=Anion Gap) 16 mmol/L 7-16 BUN (test code=BUN) 10.10 mg/dL 6.00-20.00 Creatinine Level (test code=Creatinine Level) 1.10 mg/dL 0.70-1.20 BUN/Creat Ratio (test code=BUN/Creat Ratio) 9 Glucose Level (test code=Glucose Level) 96 mg/dL 70-115 Calcium Level (test code=Calcium Level) 9.7 mg/dL 8.3-10.5 Alk Phos (test code=Alk Phos) 89 U/L 40-129 Bilirubin Total (test code=Bilirubin Total) 0.3 mg/dL 0.1-0.9 Albumin Level (test code=Albumin Level) 4.7 g/dL 3.5-5.2 Protein Total (test code=Protein Total) 7.4 g/dL 6.4-8.3 ALT (test code=ALT) 29 U/L 1-41 AST (test code=AST) 28 U/L 1-40 Globulin (test code=Globulin) 2.7 g/dL 2.9-3.1 A/G Ratio (test code=A/G Ratio) 1.7 ratio Comprehensive Metabolic [id number] 22:29:50 Test Item Value Reference Range Comments Sodium Level (test 144.0 mmol/L 135.0-145.0 code=Sodium Level) Potassium Level (test 4.6 mmol/L 3.5-5.1 code=Potassium Level) Chloride Level (test 104 mmol/L 98-105 code=Chloride Level) CO2 (test code=CO2) 24 mmol/L 22-29 Anion Gap (test 16 mmol/L 7-16 code=Anion Gap) BUN (test code=BUN) 10.10 mg/dL 6.00-20.00 Creatinine Level (test 1.10 mg/dL 0.70-1.20 code=Creatinine Level) BUN/Creat Ratio (test 9 code=BUN/Creat Ratio) Glucose Level (test 96 mg/dL 70-115 code=Glucose Level) Calcium Level (test 9.7 mg/dL 8.3-10.5 code=Calcium Level) Alk Phos (test code=Alk 89 U/L 40-129 Phos) Bilirubin Total (test 0.3 mg/dL 0.1-0.9 code=Bilirubin Total) Albumin Level (test 4.7 g/dL 3.5-5.2 code=Albumin Level) Protein Total (test 7.4 g/dL 6.4-8.3 code=Protein Total) ALT (test code=ALT) 29 U/L 1-41 AST (test code=AST) 28 U/L 1-40 Globulin (test 2.7 g/dL 2.9-3.1 code=Globulin) A/G Ratio (test code=A/G 1.7 ratio Ratio) eGFR AA (test code=eGFR >60 mL/min/1.73 m2 eGFR (estimated AA) Glomerular Filtration Rate) is an estimated value, calculated from the patient's serum creatinine using the MDRD equation. It is NOT the patient's actual GFR. The eGFR provides a more clinically useful measure of kidney disease than serum creatinine alone.This calculation takes sex and race into account, if the information is provided. If the race is not provided, and the patient is -Salv[place], multiply by 1.212. If sex is not provided, and the patient is female, multiply by 0.742. Results for patients <18 years of age have not been validated by the MDRD study and should be interpreted with caution. eGFR Result Interpretation:eGFR > or=60 is in the Normal RangeeGFR < 60 may mean kidney diseaseeGFR < 15 may mean kidney failure Ranges recommended by the National Kidney Foundation, http://nkdep.nih.gov Alcohol [id number] 22:29:50 Test Item Value Reference Range Comments Ethanol Level (test 0.06 g/dL 0.00-0.01 Intoxicated 0.080 g/dL or more code=Ethanol Level) Ethanol Inst (test 58 code=Ethanol Inst) Comprehensive Metabolic [id number] 22:29:50 Test Item Value Reference Range Comments Sodium Level (test 144.0 mmol/L 135.0-145.0 code=Sodium Level) Potassium Level (test 4.6 mmol/L 3.5-5.1 code=Potassium Level) Chloride Level (test 104 mmol/L 98-105 code=Chloride Level) CO2 (test code=CO2) 24 mmol/L Anion Gap (test 16 mmol/L 7-16 code=Anion Gap) BUN (test code=BUN) 10.10 mg/dL 6.00-20.00 Creatinine Level (test 1.10 mg/dL 0.70-1.20 code=Creatinine Level) BUN/Creat Ratio (test 9 code=BUN/Creat Ratio) Glucose Level (test 96 mg/dL 70-115 code=Glucose Level) Calcium Level (test 9.7 mg/dL 8.3-10.5 code=Calcium Level) Alk Phos (test code=Alk 89 U/L 40-129 Phos) Bilirubin Total (test 0.3 mg/dL 0.1-0.9 code=Bilirubin Total) Albumin Level (test 4.7 g/dL 3.5-5.2 code=Albumin Level) Protein Total (test 7.4 g/dL 6.4-8.3 code=Protein Total) ALT (test code=ALT) 29 U/L 1-41 AST (test code=AST) 28 U/L 1-40 Globulin (test 2.7 g/dL 2.9-3.1 code=Globulin) A/G Ratio (test code=A/G 1.7 ratio Ratio) eGFR AA (test code=eGFR >60 mL/min/1.73 m2 eGFR (estimated AA) Glomerular Filtration Rate) is an estimated value, calculated from the patient's serum creatinine using the MDRD equation. It is NOT the patient's actual GFR. The eGFR provides a more clinically useful measure of kidney disease than serum creatinine alone.This calculation takes sex and race into account, if the information is provided. If the race is not provided, and the patient is -Salvad[place], multiply by 1.212. If sex is not provided, and the patient is female, multiply by 0.742. Results for patients <18 years of age have not been validated by the MDRD study and should be interpreted with caution. eGFR Result Interpretation:eGFR > or=60 is in the Normal RangeeGFR < 60 may mean kidney diseaseeGFR < 15 may mean kidney failure Ranges recommended by the National Kidney Foundation, http://nkdep.nih.gov eGFR Non-AA (test >60.00 mL/min/1.73 eGFR (estimated code=eGFR Non-AA) m2 Glomerular Filtration Rate) is an estimated value, calculated from the patient's serum creatinine using the MDRD equation. It is NOT the patient's actual GFR. The eGFR provides a more clinically useful measure of kidney disease than serum creatinine alone.This calculation takes sex and race into account, if the information is provided. If the race is not provided, and the patient is -Salv[place], multiply by 1.212. If sex is not provided, and the patient is female, multiply by 0.742. Results for patients <18 years of age have not been validated by the MDRD study and should be interpreted with caution. eGFR Result Interpretation:eGFR > or=60 is in the Normal RangeeGFR < 60 may mean kidney diseaseeGFR < 15 may mean kidney failure Ranges recommended by the National Kidney Foundation, http://nkdep.nih.gov Complete Blood Count with [id number] 22:14:44 Test Item Value Reference Range Comments WBC (test code=WBC) 8.5 x10 4.4-10.5 RBC (test code=RBC) 4.74 x10 4.10-5.70 Hgb (test code=Hgb) 16.0 g/dL 13.4-17.4 Hct (test code=Hct) 46.2 % 38.7-52.0 MCV (test code=MCV) 97.50 fL 80.00-100.00 MCHC (test code=MCHC) 34.60 g/dL 32.00-37.50 RDW CV (test code=RDW CV) 13.0 % 11.5-14.5 MCH (test code=MCH) 33.8 pg 27.0-32.5 Platelets (test 265.0 x10 140.0-440.0 code=Platelets) MPV (test code=MPV) 9.9 fL Slide Review (test code=Slide Auto Auto Result created by Review) GL_SJM_SLIDE_REV_AUTO nRBC (test code=nRBC) 0 NRBC Abs (test code=NRBC Abs) 0.00 x10 IPF (test code=IPF) 0 % Automated [id number] 22:14:44 Test Item Value Reference Range Comments Neutro Auto (test code=Neutro Auto) 72.2 % 36.0-70.0 Lymph Auto (test code=Lymph Auto) 19.6 % 12.0-44.0 [place] Auto (test code=[place] Auto) 6.9 % 0.0-11.0 Eos, Auto (test code=Eos, Auto) 0.0 % 0.0-7.0 Basophil Auto (test code=Basophil Auto) 0.4 % 0.0-2.0 Neutro Absolute (test code=Neutro Absolute) 6.1 x10 1.6-7.4 Lymph Absolute (test code=Lymph Absolute) 1.67 x10 .50-4.60 [place] Absolute (test code=[place] Absolute) .59 x10 .00-1.20 Eos Absolute (test code=Eos Absolute) 0.00 x10 0.00-0.74 Baso Absolute (test code=Baso Absolute) 0.03 x10 0.00-0.21 IG [id number] 22:14:44 Test Item Value Reference Range Comments IG (test code=IG) 0.9 % 0.0-5.0 IG Abs (test code=IG Abs) 0 x10 Urine Drug [id number] 22:14:38 Test Item Value Reference Range Comments Amphetamine Screen Ur (test Negative Negative code=Amphetamine Screen Ur) Barbiturate Screen Ur (test Negative Negative code=Barbiturate Screen Ur) Benzodiazepines Ur (test Negative Negative code=Benzodiazepines Ur) Cocaine Screen Ur (test POSITIVE Negative code=Cocaine Screen Ur) U Methadone Scr (test code=U Negative Negative Methadone Scr) Opiate Screen Ur (test Negative Negative code=Opiate Screen Ur) U PCP Scrn (test code=U PCP Negative Negative Scrn) Cannabinoid Screen Ur (test Negative Negative code=Cannabinoid Screen Ur) U TCA (test code=U TCA) Negative Negative The results of all drug screen tests are only preliminary. Clinical consideration and professional judgment should be applied to any drug of abuse test result, particularly when preliminary positive results are obtained. Please order a separate confirmatory test if desired. Urinalysis with Microscopic if [id number] 21:53:48 Test Item Value Reference Range Comments UA Color (test code=UA Color) YELLO Yellow UA Appear (test code=UA CLEAR Clear Appear) UA pH (test code=UA pH) 7 UA Spec Grav (test code=UA 1.014 1.001-1.035 Spec Grav) UA Glucose (test code=UA NEG Negative Glucose) UA Ketones (test code=UA NEG Negative Ketones) UA Blood (test code=UA Blood) 10 cells/mcL Negative UA Protein (test code=UA NEG Negative Protein) UA Bili (test code=UA Bili) NEG Negative UA Urobilinogen (test code=UA 1 mg/dL >0.2 Urobilinogen) UA Nitrite (test code=UA NEG Negative Nitrite) UA Leuk Est (test code=UA Leuk NEG Negative Est) UA Micro Ind? (test code=UA Indicated Not Indicated Result created by rule Micro Ind?) GL_SJM_UA_MICRO_IND Urine Drug [id number] 09:31:28 Test Item Value Reference Range Comments Amphetamine Screen Ur (test POSITIVE Negative code=Amphetamine Screen Ur) Barbiturate Screen Ur (test Negative Negative code=Barbiturate Screen Ur) Benzodiazepines Ur (test Negative Negative code=Benzodiazepines Ur) Cocaine Screen Ur (test POSITIVE Negative code=Cocaine Screen Ur) U Methadone Scr (test code=U Negative Negative Methadone Scr) Opiate Screen Ur (test Negative Negative code=Opiate Screen Ur) U PCP Scrn (test code=U PCP Negative Negative Scrn) Cannabinoid Screen Ur (test Negative Negative code=Cannabinoid Screen Ur) U TCA (test code=U TCA) Negative Negative The results of all drug screen tests are only preliminary. Clinical consideration and professional judgment should be applied to any drug of abuse test result, particularly when preliminary positive results are obtained. Please order a separate confirmatory test if desired. Comprehensive Metabolic [id number] 09:17:22 Test Item Value Reference Range Comments Sodium Level (test code=Sodium Level) 139.0 mmol/L 135.0-145.0 Potassium Level (test code=Potassium Level) 4.7 mmol/L 3.5-5.1 Chloride Level (test code=Chloride Level) 98 mmol/L 98-105 CO2 (test code=CO2) 26 mmol/L 22-29 Anion Gap (test code=Anion Gap) 15 mmol/L 7-16 BUN (test code=BUN) 19.00 mg/dL 6.00-20.00 Creatinine Level (test code=Creatinine Level) 0.90 mg/dL 0.70-1.20 BUN/Creat Ratio (test code=BUN/Creat Ratio) 21 Glucose Level (test code=Glucose Level) 91 mg/dL 70-115 Calcium Level (test code=Calcium Level) 9.9 mg/dL 8.3-10.5 Alk Phos (test code=Alk Phos) 80 U/L 40-129 Bilirubin Total (test code=Bilirubin Total) 1.0 mg/dL 0.1-0.9 Albumin Level (test code=Albumin Level) 5.1 g/dL 3.5-5.2 Protein Total (test code=Protein Total) 7.5 g/dL 6.4-8.3 ALT (test code=ALT) 31 U/L 1-41 AST (test code=AST) 32 U/L 1-40 Globulin (test code=Globulin) 2.4 g/dL 2.9-3.1 A/G Ratio (test code=A/G Ratio) 2.1 ratio Comprehensive Metabolic [id number] 09:17:22 Test Item Value Reference Range Comments Sodium Level (test 139.0 mmol/L 135.0-145.0 code=Sodium Level) Potassium Level (test 4.7 mmol/L 3.5-5.1 code=Potassium Level) Chloride Level (test 98 mmol/L 98-105 code=Chloride Level) CO2 (test code=CO2) 26 mmol/L 22-29 Anion Gap (test 15 mmol/L 7-16 code=Anion Gap) BUN (test code=BUN) 19.00 mg/dL 6.00-20.00 Creatinine Level (test 0.90 mg/dL 0.70-1.20 code=Creatinine Level) BUN/Creat Ratio (test 21 code=BUN/Creat Ratio) Glucose Level (test 91 mg/dL 70-115 code=Glucose Level) Calcium Level (test 9.9 mg/dL 8.3-10.5 code=Calcium Level) Alk Phos (test code=Alk 80 U/L 40-129 Phos) Bilirubin Total (test 1.0 mg/dL 0.1-0.9 code=Bilirubin Total) Albumin Level (test 5.1 g/dL 3.5-5.2 code=Albumin Level) Protein Total (test 7.5 g/dL 6.4-8.3 code=Protein Total) ALT (test code=ALT) 31 U/L 1-41 AST (test code=AST) 32 U/L 1-40 Globulin (test 2.4 g/dL 2.9-3.1 code=Globulin) A/G Ratio (test code=A/G 2.1 ratio Ratio) eGFR AA (test code=eGFR >60 mL/min/1.73 m2 eGFR (estimated AA) Glomerular Filtration Rate) is an estimated value, calculated from the patient's serum creatinine using the MDRD equation. It is NOT the patient's actual GFR. The eGFR provides a more clinically useful measure of kidney disease than serum creatinine alone.This calculation takes sex and race into account, if the information is provided. If the race is not provided, and the patient is -[place], multiply by 1.212. If sex is not provided, and the patient is female, multiply by 0.742. Results for patients <18 years of age have not been validated by the MDRD study and should be interpreted with caution. eGFR Result Interpretation:eGFR > or=60 is in the Normal RangeeGFR < 60 may mean kidney diseaseeGFR < 15 may mean kidney failure Ranges recommended by the National Kidney Foundation, http://nkdep.nih.gov Comprehensive Metabolic [id number] 09:17:22 Test Item Value Reference Range Comments Sodium Level (test 139.0 mmol/L 135.0-145.0 code=Sodium Level) Potassium Level (test 4.7 mmol/L 3.5-5.1 code=Potassium Level) Chloride Level (test 98 mmol/L 98-105 code=Chloride Level) CO2 (test code=CO2) 26 mmol/L 22-29 Anion Gap (test 15 mmol/L 7-16 code=Anion Gap) BUN (test code=BUN) 19.00 mg/dL 6.00-20.00 Creatinine Level (test 0.90 mg/dL 0.70-1.20 code=Creatinine Level) BUN/Creat Ratio (test 21 code=BUN/Creat Ratio) Glucose Level (test 91 mg/dL 70-115 code=Glucose Level) Calcium Level (test 9.9 mg/dL 8.3-10.5 code=Calcium Level) Alk Phos (test code=Alk 80 U/L 40-129 Phos) Bilirubin Total (test 1.0 mg/dL 0.1-0.9 code=Bilirubin Total) Albumin Level (test 5.1 g/dL 3.5-5.2 code=Albumin Level) Protein Total (test 7.5 g/dL 6.4-8.3 code=Protein Total) ALT (test code=ALT) 31 U/L 1-41 AST (test code=AST) 32 U/L 1-40 Globulin (test 2.4 g/dL 2.9-3.1 code=Globulin) A/G Ratio (test code=A/G 2.1 ratio Ratio) eGFR AA (test code=eGFR >60 mL/min/1.73 m2 eGFR (estimated AA) Glomerular Filtration Rate) is an estimated value, calculated from the patient's serum creatinine using the MDRD equation. It is NOT the patient's actual GFR. The eGFR provides a more clinically useful measure of kidney disease than serum creatinine alone.This calculation takes sex and race into account, if the information is provided. If the race is not provided, and the patient is -[place], multiply by 1.212. If sex is not provided, and the patient is female, multiply by 0.742. Results for patients <18 years of age have not been validated by the MDRD study and should be interpreted with caution. eGFR Result Interpretation:eGFR > or=60 is in the Normal RangeeGFR < 60 may mean kidney diseaseeGFR < 15 may mean kidney failure Ranges recommended by the National Kidney Foundation, http://nkdep.nih.gov eGFR Non-AA (test >60.00 mL/min/1.73 eGFR (estimated code=eGFR Non-AA) m2 Glomerular Filtration Rate) is an estimated value, calculated from the patient's serum creatinine using the MDRD equation. It is NOT the patient's actual GFR. The eGFR provides a more clinically useful measure of kidney disease than serum creatinine alone.This calculation takes sex and race into account, if the information is provided. If the race is not provided, and the patient is -[place], multiply by 1.212. If sex is not provided, and the patient is female, multiply by 0.742. Results for patients <18 years of age have not been validated by the MDRD study and should be interpreted with caution. eGFR Result Interpretation:eGFR > or=60 is in the Normal RangeeGFR < 60 may mean kidney diseaseeGFR < 15 may mean kidney failure Ranges recommended by the National Kidney Foundation, http://nkdep.nih.gov IG [id number] 09:08:10 Test Item Value Reference Range Comments IG (test code=IG) 0.4 % 0.0-5.0 IG Abs (test code=IG Abs) 0 x10 Complete Blood Count with [id number] 09:08:09 Test Item Value Reference Range Comments WBC (test code=WBC) 6.9 x10 4.4-10.5 RBC (test code=RBC) 4.98 x10 4.10-5.70 Hgb (test code=Hgb) 18.1 g/dL 13.4-17.4 MCV (test code=MCV) 97.60 fL 80.00-100.00 Hct (test code=Hct) 48.6 % 38.7-52.0 MCHC (test code=MCHC) 37.20 g/dL 32.00-37.50 RDW CV (test code=RDW CV) 12.8 % 11.5-14.5 MCH (test code=MCH) 36.3 pg 27.0-32.5 Platelets (test 239.0 x10 140.0-440.0 code=Platelets) MPV (test code=MPV) 9.9 fL Slide Review (test code=Slide Auto Auto Result created by Review) GL_SJM_SLIDE_REV_AUTO nRBC (test code=nRBC) 0 NRBC Abs (test code=NRBC Abs) 0.00 x10 IPF (test code=IPF) 0 % Automated [id number] 09:08:09 Test Item Value Reference Range Comments Neutro Auto (test code=Neutro Auto) 73.6 % 36.0-70.0 Lymph Auto (test code=Lymph Auto) 17.3 % 12.0-44.0 [place] Auto (test code=[place] Auto) 8.3 % 0.0-11.0 Eos, Auto (test code=Eos, Auto) 0.1 % 0.0-7.0 Basophil Auto (test code=Basophil Auto) 0.3 % 0.0-2.0 Neutro Absolute (test code=Neutro Absolute) 5.1 x10 1.6-7.4 Lymph Absolute (test code=Lymph Absolute) 1.19 x10 .50-4.60 [place] Absolute (test code=[place] Absolute) .57 x10 .00-1.20 Eos Absolute (test code=Eos Absolute) 0.01 x10 0.00-0.74 Baso Absolute (test code=Baso Absolute) 0.02 x10 0.00-0.21 Comprehensive Metabolic [id number] 13:14:00 Test Item Value Reference Range Comments Sodium (test code=NA) 141 mmol/L 135-145 Potassium (test code=K) 3.8 mmol/L 3.5-5.1 Chloride (test code=CL) 103 mmol/L 98-105 Carbon Dioxide (test 28 mmol/L 22-29 code=CO2) Glucose (test code=GLU) 83 mg/dL 70-115 Blood Urea Nitrogen 17 mg/dL 6-20 (test code=BUN) Creatinine (test 0.9 mg/dL 0.7-1.2 code=CREAT) Calcium (test code=CA) 9.6 mg/dL 8.3-10.5 Prot Total (test 7.3 g/dL 6.4-8.3 code=TP) Albumin (test code=ALB) 4.6 g/dL 3.5-5.2 A/G Ratio (test 1.7 Ratio code=AGRATIO) Globulin (test 2.7 2.9-3.1 code=GLOB) Bili Total (test 1.1 mg/dL 0.1-0.9 code=TBIL) Alk Phos (test 73 U/L 40-129 code=APHOS) AST (test code=AST) 75 U/L 1-40 ALT (test code=ALT) 60 U/L 1-41 BUN/Creatinine Ratio 18.9 (test code=BCRATIO) Anion Gap (test 10 mmol/L 7-16 code=AGAP) Estimated GFR (test >60 [...] race is not provided, and the patient isAfrican-Salvadorean, multiply by 1.212. If sex is not provided, and thepatient is female, multiply by 0.742. Results for patients <18 years ofage have not been validated by the MDRD study and should be interpretedwith caution.eGFR Result Interpretation:eGFR > or=60 is in the Normal RangeeGFR < 60 may mean kidney diseaseeGFR < 15 may mean kidney failureRanges recommended by the National Kidney Foundation,http://nkdep.nih .gov [id number] 13:09:00 Test Item Value Reference Range Comments [...] Urine (test <0.01 g/dL 0.00-0.01 code=ETOHU) Urinalysis [id number] 12:59:00 Test Item Value Reference Range Comments Color (test code=COLOR) Yellow Yellow,Straw,Pl yellow Clarity (test code=CLAR) Clear Clear Specific [place] (test 1.027 1.001-1.035 code=SPGR) pH (test code=PH) [...] Bacteria (test code=BACT) Few /HPF CBC with [id number] 12:42:00 Test Item Value Reference Range Comments [...] Lymph Abs (test code=ALYMPH) 2.3 K/cumm 0.5-4.6 [place] Abs (test code=AMONO) 0.6 K/cumm 0.0-1.2 Eos Abs (test code=AEOS) 0.09 K/cumm 0.00-0.74 Baso Abs (test code=ABASO) 0.0 K/cumm 0.00-0.21 Hepatic Function [id number] 18:55:00 Test Item Value Reference Range Comments [...] ALT (test code=ALT) 47 U/L 1-41 HIV [id number] 12:45:00 Test Item Value Reference Range Comments HIV 1/2 Antibody (test Non-Reactive Non-Reactive HIV1/2 Antibody screen result code=HIV1/2AB) indicates the absence of HIV1 and JLX4jcourwiui.However, A Non-Reactive screen result does not rule [...] suspected, HIV RNA Quantitative is recommended. RPR, [id number] 21:30:00 Test Item Value Reference Range Comments RPR (test code=RPR) Non-Reactive Non-Reactive Thyroid Stimulating Hormone (TSH)2017-03-17 09:55:00 Test Item Value Reference Range Comments TSH (test code=TSH) 0.94 mIU/mL 0.270-4.200 Lipid [id number] 09:53:00 Test Item Value Reference Range Comments Cholesterol (test 124 mg/dL 0-200 code=CHOL) Triglycerides (test 61 mg/dL 9-200 code=TRIG) HDL (test code=HDL) 47 mg/dL 40-60 Chol/HDL (test 2.6 Ratio 0.0-5.0 code=CHOLPHDL) LDL, Calculated (test 65 0-130 (NOTE)RISK OF HEART code=LDLC) DISEASEPublished by Salvadorean Heart AssociationAnalyte Optimal Boderline Increased RiskCHOL <200 200-239 >240TRIG <150 150-199 >200HDL Male: >60 <40HDL Female: >60 <50LDL <100 130-159 >160LDL NEAR OPTIMAL IS 100-129 VLDL (test code=VLDL) 12 mg/dL 5-40 LDL/HDL (test code=LDLPHDL) 1 Urinalysis [id number] 15:09:00 Test Item Value Reference Range Comments Color (test code=COLOR) Yellow Yellow,Straw,Pl yellow Clarity (test code=CLAR) Clear Clear Specific [place] (test code=SPGR) 1.028 1.001-1.035 pH (test code=PH) [...] (test code=CASTS) 0-1 Granular /HPF Comprehensive Metabolic [id number] 14:24:00 Test Item Value Reference Range Comments [...] race is not provided, and the patient isAfrican-Salvadorean, multiply by 1.212. If sex is not provided, and thepatient is female, multiply by 0.742. Results for patients <18 years ofage have not been validated by the MDRD study and should be interpretedwith caution.eGFR Result Interpretation:eGFR > or=60 is in the Normal RangeeGFR < 60 may mean kidney diseaseeGFR < 15 may mean kidney failureRanges recommended by the National Kidney Foundation,http://nkdep.nih .gov [id number] 14:20:00 Test Item Value Reference Range Comments [...] (test <0.01 g/dL 0.00-0.01 code=ETOHU) CBC with [id number] 14:08:00 Test Item Value Reference Range Comments [...] Lymph Abs (test code=ALYMPH) 2.2 K/cumm 0.5-4.6 [place] Abs (test code=AMONO) 0.9 K/cumm 0.0-1.2 Eos Abs (test code=AEOS) 0.06 K/cumm 0.00-0.74 Baso Abs (test code=ABASO) 0.0 K/cumm 0.00-0.21
--- OUTSIDE RECORDS SUMMARY | 2019-03-18 14:10 | XMS REPORT | Summary of Care ---
:1985 Author Organization [facility] - [facility] Address [address] [place] [id number] Care Team Providers Name Role Phone Pcp, Patient Does Not Have A Primary Care Provider Reason for Visit Reason Comments Auth/Cert Status Reason Specialty Diagnoses / Referred By Referred To Procedures Contact Contact Emergency [facility] [address] [place] [address] Encounter Details Date Type Department Care Team Description 11/04/2018 - Emergency [facility]-Emergency [place], Suicidal ideation ( Primary Dx); 11/05/2018 Department Hallucination; [address] [place] [address] [place] [address] [place] [address] [id number] [place] [address] [phone] Allergies Active Allergy Reactions Severity Noted Date Comments Naproxen Rash 09/09/2013 Poison Shayy Extract Rash 05/24/2013 Risperidone Other - See comments 09/09/2013 The patient reports a seizure after injesting in 2012 Tramadol Rash 09/09/2013 documented as of this encounter (statuses as of 11/05/2018) Medications Medication Sig Dispensed Refills Start Date End Date Status divalproex sodium Take 500 mg by 0 Active (DEPAKOTE ORAL) mouth 2 (two) times daily. haloperidol 1 mg tablet Take 1 mg by 0 Active mouth 2 (two) times daily. documented as of this encounter (statuses as of 11/05/2018) Active Problems Problem Noted Date Esophageal reflux 09/05/2013 Dysphagia, oropharyngeal phase 09/05/2013 documented as of this encounter (statuses as of 11/05/2018) Social History Tobacco Use Types Packs/Day Years Used Date Current Every Day Smoker Cigarettes 0.5 5 Quit: 02/04/2011 Smokeless Tobacco: Never Used Alcohol Use Drinks/Week oz/Week Comments Yes 20 Glasses of wine 10.0 Sex Assigned at Date Recorded Not on file Job Start Date Occupation Industry Not on file Not on file Not on file Travel History Travel Start Travel End No recent travel history available. 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 CBC WITH DIFFERENTIAL STAT 11/04/2018 9:02 Suicidal ideation Results for this PM CDT procedure are in the results section. CBC WITH DIFF Routine 11/04/2018 9:02 Suicidal ideation Results for this PM CDT procedure are in the results section. ETHANOL STAT 11/04/2018 9:02 Suicidal ideation Results for this PM CDT procedure are in the results section. SALICYLATE STAT 11/04/2018 9:02 Suicidal ideation Results for this PM CDT procedure are in the results section. ACETAMINOPHEN STAT 11/04/2018 9:02 Suicidal ideation Results for this PM CDT procedure are in the results section. BASIC METABOLIC PANEL STAT 11/04/2018 9:02 Suicidal ideation Results for this (NA, K, CL, CO2, PM CDT procedure are in GLUCOSE, BUN, the results CREATININE, CA) section. HEPATIC FUNCTION PANEL STAT 11/04/2018 9:02 Suicidal ideation Results for this (57051) PM CDT procedure are in (ALB,T.PRO,BILI the results T,BU/BC,ALT,AST,ALK section. PHOS) CONSENT/REFUSAL FOR Routine 11/04/2018 8:28 DIAGNOSIS AND PM CDT TREATMENT documented in this encounter Results ADC / LCC - DRUG SCREEN TRIAGE (11/04/2018 9:31 PM CDT) BENZO U Negative Negative [facility] EARL U Negative Negative [facility] AMPHET Presumptive Negative [facility] Positive () [facility] THC Negative Negative [facility] METHADONE Negative Negative [facility] Meth U Presumptive Negative [facility] Positive () [facility] OPIATES Negative Negative [facility] Cocaine Metabolite Negative Negative [facility] PROPOXY Negative Negative [facility] Tric U Negative Negative [facility] PCP Negative Negative [facility] OXYCOD Negative Negative [facility] Specimen Urine - URINE, CLEAN CATCH Narrative Performed At Urine Drug Cutoff Ranges [facility] Benzodiazepines: 150 ng/mL Barbiturates: 200 ng/mL Amphetamine: 500 ng/mL Cannabinoids: 50ng/mL Methadone: 200 ng/mL Methamphetamine: 500 ng/mL Opiates: 100 ng/mL or 2000 ng/mL Cocaine: 150 ng/mL Propoxyphene:300 ng/mL Tricyclics:300 ng/mL Oxycodone: 100 ng/mL PCP: 25ng/mL The results are to be used only for medical (i.e., treatment) purposes. Unconfirmed screening results must not be used for non-medical purposes (e.g., employment testing, legal testing). Performing Organization Address City/State/Zipcode Phone Number [facility] CLIA: [id number], [address] [place] [address] CBC WITH DIFFERENTIAL (11/04/2018 9:02 PM CDT) WBC 5.15 4.20 - 10.70 [facility] 10*3/L [facility] RBC 4.64 4.26 - 5.52 [facility] 10*6/L [facility] HGB 15.1 12.2 - 16.4 [facility] g/dL [facility] HCT 44.4 38.4 - 49.3 % [facility] MCV 95.7 (H) 81.7 - 95.6 fL [facility] MCH 32.5 26.1 - 32.7 pg [facility] MCHC 34.0 31.2 - 35.0 [facility] g/dL [facility] RDW-SD 46.3 38.5 - 51.6 fL [facility] RDW-CV 13.1 12.1 - 15.4 % [facility] PLT 215 150 - 328 [facility] 10*3/L [facility] MPV 9.9 9.8 - 13.0 fL [facility] NRBC/100 WBC 0.0 0.0 - 10.0 /100 [facility] WBCs [facility] NRBC x10^3 <0.01 10*3/L [facility] GRAN MAT (NEUT) % 50.8 % [facility] IMM GRAN % 0.60 % [facility] LYMPH % 33.8 % [facility] MONO % 14.4 % [facility] EOS % 0.0 % [facility] BASO % 0.4 % [facility] GRAN MAT x10^3(ANC) 2.62 1.99 - 6.95 [facility] 10*3/uL [facility]PITAL [facility] IMM GRAN x10^3 0.03 0.00 - 0.06 [facility] 10*3/uL [facility] LYMPH x10^3 1.74 1.09 - 3.23 [facility] 10*3/uL [facility] MONO x10^3 0.74 0.36 - 1.02 [facility] 10*3/uL [facility] EOS x10^3 <0.03 (L) 0.06 - 0.53 [facility] 10*3/uL [facility] BASO x10^3 <0.03 0.01 - 0.09 [facility] 10*3/uL [facility] Specimen Blood - ARM, RIGHT Performing Organization Address [facility] Phone Number [facility] CLIA: [id number], [address] [place] [id number] [address] Hepatic Function Panel (ALB, T.PRO, BILI T, BU/BC, ALT, AST, ALK PHOS) (2018 9:02 PM CDT) TOTAL BILI 1.0 0.1 - 1.1 mg/dL [facility] BILI UNCON 0.8 0.1 - 1.1 mg/dL [facility] BILI CONJ 0.0 0.0 - 0.3 mg/dL [facility] T PROTEIN 7.0 6.3 - 8.2 g/dL [facility] ALBUMIN 4.4 3.5 - 5.0 g/dL [facility] ALK PHOS 71 34 - 122 U/L [facility] ALT(SGPT) 39 9 - 51 U/L [facility] AST(SGOT) 40 13 - 40 U/L [facility] Specimen Blood - ARM, RIGHT Performing Organization Address [facility] Phone Number [facility] CLIA: [id number], [address] [place] [id number] Ethanol (ETOH) Level (11/04/2018 9:02 PM CDT) ALCOHOL <10 mg/dL [facility] Specimen Blood - ARM, RIGHT Narrative Performed At <10 Negative [facility] 50-100 Toxic >100 Depression of TELEMARKETER >400 Fatalities Reported Performing Organization Address [facility] Phone Number [facility] CLIA: [id number], [address] [place] [id number] [address] Salicylate (11/04/2018 9:02 PM CDT) SALICYLATE <10 mg/L [facility] Specimen Blood - ARM, RIGHT Narrative Performed At Therapeutic Range: [facility] Analgesic and Antipyretic Use 20-100 mg/L Anti-Inflammatory Use 100-250 mg/L Toxic Range: Greater than 300 mg/L Performing Organization Address [facility] Phone Number [facility] CLIA: [id number], [address] [place] [address] Acetaminophen (11/04/2018 9:02 PM CDT) ACETAMINOP <10.0 (L) 10.0 - 30.0 ug/mL [facility] Specimen Blood - ARM, RIGHT Narrative Performed At Toxic: Greater than 200 ug/mL @ 4 hour post [facility] ingestion or greater than 50 ug/mL @ 12 hour post ingestion Performing Organization Address City/State/Zipcode Phone Number [facility] CLIA: [id number], [address] [place] [address] Basic Metabolic Panel (NA, K, CL, CO2, Glucose, BUN, Creatinine, CA) (2018 9:02 PM CDT) NA 142 135 - 145 mmol/L [facility] K 3.5 3.5 - 5.0 mmol/L [facility] CL 107 98 - 108 mmol/L [facility] CO2 TOTAL 25 23 - 31 mmol/L [facility] AGAP 10 2 - 16 [facility] BUN 12 7 - 23 mg/dL [facility] GLUCOSE 90 70 - 110 mg/dL [facility] CREATININE 0.77 0.60 - 1.25 [facility] mg/dL [facility] CALCIUM 9.3 8.6 - 10.6 mg/dL [facility] eGFR Calculation 116.4 mL/min/1.73m2 [facility] (Non-) [facility] eGFR Calculation 141.0 mL/min/1.73m2 [facility] () [facility] Specimen Blood - ARM, RIGHT Narrative Performed At Association of Glomerular Filtration Rate (GFR) [facility] and Staging of Kidney Disease* + + +- + | GFR (mL/min/1.73 m2)| With Kidney Damage|Without Kidney Damage + + +- + |>90| Stage one| Normal + + +- + |60-89|S tage two| Decreased GFR + + +- + |30-59|S tage three| Stage three + + +- + |15-29|S tage four | Stage four + + +- + |<15 (or dialysis)|Stage five | Stage five + + +- + *Each stage assumes the associated GFR level has been in effect for at least three months.Stages 1 to 5, with or without kidney disease, indicate chronic kidney disease. Notes: Determination of stages one and two (with eGFR >59mL/min/1.73 m2) requires estimation of kidney damage for at least three months as defined by structural or functional abnormalities of the kidney, manifested by either: Pathological abnormalities or Markers of kidney damage (including abnormalities in the composition of the blood or urine or abnormalities in imaging tests). Performing Organization Address City/State/Zipcode Phone Number [facility] CLIA: [id number], [address] [place] [address] documented in this encounter Visit Diagnoses Diagnosis Suicidal ideation - Primary Hallucination Hallucinations Drug abuse Other, mixed, or unspecified nondependent drug abuse, unspecified documented in this encounter Administered Medications Medication Order MAR Action Action Date Dose Rate Site diazePAM (VALIUM) tablet 5 mg Given 11/05/2018 12:04 AM CDT 5 mg 5 mg, Oral, ONCE, 1 dose, Thu11/05/18 at 0115, ANAMARIA documented in this encounter Insurance Payer Benefit Plan / Subscriber ID Effective Dates Phone Address Type Group [facility] xxxxxxxxx 2018-Present Medicaid COMM PLAN - MANAGED MEDICAID documented as of this encounter"
== END 2019-03-18 14:11 | disposition home or self-care (01) ==
LOC: ER 13:20
DX: R45.1 Restlessness and agitation (principal); F17.210 Nicotine dependence, cigarettes, uncomplicated
CPT/HCPCS: 99283

== ENCOUNTER 2020-06-30 12:23 | Emergency (ER) | payer OTHER ==
--- OUTSIDE RECORDS SUMMARY | 2020-06-30 12:29 | XMS REPORT | Continuity of Care Document ---
:1985 Author Organization [facility] t Address [address] [place] [address] Care Team Providers Name Role Phone UNKNOWN Primary Care Physician Unavailable Andrés DIETZ C Attending Clinician SAMANTHA Attending Clinician Unavailable JADON AGUILAR M.D. Attending Clinician Unavailable SAMANTHA Admitting Clinician Unavailable JADON AGUILAR M.D. Admitting Clinician Unavailable Payers Payer Name Policy Type Policy Number Effective Date Expiration Date S ource Problems This patient has no known problems. Allergies, Adverse Reactions, Alerts Allergy Allergy Status Severity Reaction(s) Onset Inactive Treating Comm ents Source Name Type Date Date Clinician tramadol DA Active MO 2020-0 [facility] 3-29 [facility] 00:00: d 00 [facility] No Known DA Active U 2020-0 [facility] No Known DA Active U 2020-0 [facility] tramadol DA Active MO 2016-0 [facility] 1-04 [facility] 00:00: d 00 [facility] Medications This patient has no known medications. Procedures This patient has no known procedures. Encounters Start End Encounter Admission Attending Care Care Encounter Source Date/Time Date/Time Type Type Clinicians Facility Department ID 2019-02-21 2019-02-21 Outpatient [facility] [id number] [place] 00:00:00 00:00:00 [facility] 2019-02-01 2019-02-01 Outpatient [facility] [id number] [place] 22:11:49 22:11:49 Health 2018-11-04 2018-11-05 Emergency Andrés [facility] [id number] 20:38:48 05:13:00 [place] [id number] [place] [id number] [place] [id number] 2018-10-18 2018-10-18 Emergency [facility] [id number] [place] 06:08:40 06:08:40 [facility] 2017-04-02 2017-04-02 Outpatient [facility] [id number] [place] 00:00:00 00:00:00 [facility] 2017-03-29 2017-03-29 Emergency [facility] [id number] [place] 00:00:48 00:00:48 [facility] 2017-03-22 2017-03-22 [facility] [id number] 11:46:00 11:46:00 [facility] 2017-03-16 2017-03-20 [facility] [id number] 20:46:00 13:41:00 Jonathon DIOP [facility] 2017-01-26 2017-01-26 Outpatient COUNT INCLUDES THE [facility] [id number] [facility] 00:00:00 00:00:00 Results Test Description Test Time Test Comments Results Result Comments Source Coronavirus 2019 nCoV Bedside 2020-05-17 08:52:00 Test Item Value Reference Range Interpretation Comme nts Coronavirus 2019 nCoV Bedside Negative NEGATIVE This test has been authorized by (test code = [id number]) F GARRY under an EUA for use byauthorized la boratories; This test has been a uthorized only for the detection o fnucleic acid from SARS-CoV-2, not for any other viruses orpatho gens; and This test is only au thorized for the duration of the declaration that circumstances e xist justifying theauthorizatio n of emergency use of in vitro maria gnostic testsfor detection and/o r diagnosis of COVID-19 under Rxagzbl323(b)(1) of the Act, 21 U.S .C. 360bbb-3(b)(1), unless theauthorizatio n is terminated or revoked sooner. DRUGS OF ABUSE [id number] 03:16:00 Test Item Value Reference Range Interpretation Comments UR COCAINE (test code = NEGATIVE NEGATIVE CUTO FF >/= 300 NG/ML COCAU) UR THC CANABINOIDS QL NEGATIVE NEGATIVE CUTOFF >/= 20 NG/ML SQN (test code = CANU) UR AMPHETAMINE QL SQN POSITIVE NEGATIVE A CUTOFF >/= 500 NG/ML (test code = AMPHU) UR BARBITURATE QUAL NEGATIVE NEGATIVE CUTOFF >/= 200 NG/ML (test code = BARBQLU) UR BENZODIAZEPINE (test NEGATIVE NEGATIVE CUTO FF >/= 200 NG/ML code = BENZU) UR OPIATES QUAL (test NEGATIVE NEGATIVE CUTOFF >/= 300 NG/ML code = OPIAQLU) UR PHENCYCLIDINE (PCP) NEGATIVE NEGATIVE CUTOF F >/= 25 NG/ML A (test code = PHENCU) Positiv e drug screen result provides only a "PreliminaryPos itive" test result.If a confirmation of positive result is necessary, a morespecific confirmatory te st must be ordered by the physician. Drug screens are per formed for medical (i. e. treatment)purpo ses only. Unconfirm ed screening resul ts must not beused for non-medical pur poses (e.g employment testing). DRUGS OF ABUSE [id number] 02:47:00 Test Item Value Reference Range Interpretation Comments UR COCAINE (test code = NEGATIVE NEGATIVE CUTO FF >/= 300 COCAU) NG/ML UR THC CANABINOIDS QL SQN NEGATIVE NEGATIVE CU TOFF >/= 20 NG/ML (test code = CANU) UR AMPHETAMINE QL SQN POSITIVE NEGATIVE A CUTOFF >/= 500 (test code = AMPHU) NG/ML UR BARBITURATE QUAL (test NEGATIVE NEGATIVE CU TOFF >/= 200 code = BARBQLU) NG/ML UR BENZODIAZEPINE (test NEGATIVE NEGATIVE CUTO FF >/= 200 code = BENZU) NG/ML UR OPIATES QUAL (test code NEGATIVE NEGATIVE C UTOFF >/= 300 = OPIAQLU) NG/ML UR PHENCYCLIDINE (PCP) NEGATIVE (test code = PHENCU) DRUGS OF ABUSE [id number] 02:38:00 Test Item Value Reference Range Interpretation Comments UR COCAINE (test code = NEGATIVE NEGATIVE CUTO FF >/= 300 COCAU) NG/ML UR THC CANABINOIDS QL SQN NEGATIVE NEGATIVE CU TOFF >/= 20 NG/ML (test code = CANU) UR AMPHETAMINE QL SQN NEGATIVE (test code = AMPHU) UR BARBITURATE QUAL (test NEGATIVE NEGATIVE CU TOFF >/= 200 code = BARBQLU) NG/ML UR BENZODIAZEPINE (test NEGATIVE NEGATIVE CUTO FF >/= 200 code = BENZU) NG/ML UR OPIATES QUAL (test code NEGATIVE NEGATIVE C UTOFF >/= 300 = OPIAQLU) NG/ML UR PHENCYCLIDINE (PCP) NEGATIVE (test code = PHENCU) BASIC METABOLIC [id number] 02:34:00 Test Item Value Reference Range Interpretation Comments SODIUM (test code = 138 mmol/L 137-145 N NA) POTASSIUM (test code 4.2 mmol/L 3.4-5.0 N = K) CHLORIDE (test code = 102 mmol/L 98-107 N CL) CARBON DIOXIDE (test 26 mmol/L 22-30 N code = CO2) GLUCOSE (test code = 104 mg/dL 74-106 N GLU) BLOOD UREA NITROGEN 12 mg/dL 9-20 N (test code = BUN) GLOMERULAR FILTRATION 118 >60 The es timated RATE (test code = glomerular filtration GFR) rate is compute d usingpatient ra ce, age (>18), sex, and serum creatinine. If anyof the needed data elements are mi ssing the Laboratory cannot compute an jr mation of the glomerul ar filtration rate . CREATININE (test code 0.8 mg/dL 0.7-1.3 N = CREAT) CALCIUM (test code = 9.7 mg/dL 8.4-10.2 N CA) LIVER FUNCTION [id number] 02:34:00 Test Item Value Reference Range Interpretation Comments TOTAL PROTEIN (test 8.7 g/dL 6.3-8.2 H code = PROT) "A positive bias may occur for patients taking Eltrombopag(a b one marrow stimulan t used to treat thrombocy topenia andaplastic anemia)." ALBUMIN (test code = 5.0 g/dL 3.5-5.0 N ALB) BILIRUBIN TOTAL 1.2 mg/dL 0.2-1.3 N "A positive bias may (test code = BILT) occur for patients taking Eltrombo pag(a bone marrow sti mulant used to treat thrombocytopeni a andaplastic ane ally)." BILIRUBIN CONJUGATED 0 mg/dL 0-0.3 N "A posi tive bias may (test code = BILCON) occur f or patients taking Eltrombo pag(a bone marrow sti mulant used to treat thrombocytopeni a andaplastic ane ally)." CON JUGATED BILIRUBIN IS TH E REPLACEMENT ASS AY FOR DIRECTBILIRUBIN . BILIRUBIN 0.8 mg/dL 0-1.1 N UNCONJUGATED (test code = BILUNC) SGOT/AST (test code 75 U/L 15-46 H = AST) SGPT/ALT (test code 65 U/L 0-34 H = ALT) ALKALINE PHOSPHATASE 76 U/L 38-126 N (test code = ALKP) [id number] 02:34:00 Test Item Value Reference Range Interpretation Comments ACETAMINOPHEN (test code = ACET) <10 ug/mL 10-30 L [id number] 02:34:00 Test Item Value Reference Range Interpretation Comments SALICYLATE (test code < 1.0 mg/dL Negati ve <2.0 = SMITH) mg/dLTherapeuti c Range <20 mg/dL [id number] 02:34:00 Test Item Value Reference Range Interpretation Comments ALCOHOL (test code = < 10 mg/dL <10 ALC) ~~~~~~~~~~~~~~~ ~~~~~~~ ~~~~~~~~~~~~~~~ ~~~~~~~ ~~~~~~ RESU LTS ARE TO BE USED FOR MEDICAL PURPOSES ONLY.F OR LEGAL PURPOSES THE SPECIMEN MUST B E COLLECTED BY A CHAINOF CUSTODY. LEGAL TESTING IS NOT PERFORME D BY THIS FACILITY. ~~~~~~~~~~~~~~~ ~~~~~~~ ~~~~~~~~~~~~~~~ ~~~~~~~ ~~~~~~ URINALYSIS [id number] 02:27:00 Test Item Value Reference Range Interpretation Comments UA COLOR (test code Yellow Yellow = COLU) UA APPEARANCE (test Slightly-Cloudy Clear code = APPU) UA GLUCOSE DIPSTICK Negative Negative (test code = DGLUU) UA BILIRUBIN Negative Negative DIPSTICK (test code = BILU) UA KETONE DIPSTICK Trace mg/dL Negative A (test code = KETU) UA SPECIFIC GRAVITY 1.019 <1.030 (test code = SGU) UA BLOOD DIPSTICK Negative Negative (test code = NARESH) UA PH DIPSTICK (test 6.0 5.0-8.0 code = MIKE) UA PROTEIN DIPSTICK NEGATIVE mg/dL Negative (test code = PROU) UA UROBILINOGEN 4.0 mg/dL Negative A DIPSTICK (test code = URO) UA NITRITE DIPSTICK Negative Negative (test code = SHERIF) UA LEUKOCYTE NEGATIVE Negative ESTERASE DIPSTICK (test code = LEUU) UA WBC (test code = 0-3 /HPF See_Comment [Automa isai WBCU) message] The system which generated this result transmit isai reference range : <4-5. The reference range was not used to interpret this result as normal/abnormal . UA RBC (test code = 6-10 /HPF See_Comment A [Automa isai RBCU) message] The system which generated this result transmit isai reference range : <4-5. The reference range was not used to interpret this result as normal/abnormal . UA BACTERIA (test None /HPF None-Rare code = BACU) UA MUCUS (test code 2+ /LPF See_Comment A [Automa isai = MUCU) message] The system which generated this result transmit isai reference range : <Rare. The reference range was not used to interpret this result as normal/abnormal . CBC W/AUTO [id number] 02:18:00 Test Item Value Reference Range Interpretation Comments WHITE BLOOD CELL (test code = 6.6 x10 3/uL 5.0-12.0 N WBC) RED BLOOD CELL (test code = 4.91 x10 6/uL 4.70-6.10 N RBC) HEMOGLOBIN (test code = HGB) 16.4 g/dL 14.0-18.0 N HEMATOCRIT (test code = HCT) 46.4 % 37.0-49.0 N MEAN CELL VOLUME (test code = 95 fL 80-94 H MCV) MEAN CELL HGB (test code = MCH) 33.4 pg 27-31 H MEAN CELL HGB CONCENTRATION 35.3 g/dL 33-37 N (test code = MCHC) RED CELL DISTRIBUTION WIDTH 12.5 % 11.5-15.5 N (test code = RDW) PLATELET COUNT (test code = 284 x10 3/uL 130-400 N PLT) MEAN PLATELET VOLUME (test code 9.5 fL 9.4-16.4 N = MPV) NEUTROPHIL % (test code = NT%) 66.6 % 43-65 H IMMATURE GRANULOCYTE % (test 1.4 % 0.0-2.0 N code = IG%) LYMPHOCYTE % (test code = LY%) 19.6 % 20.5-45.5 L MONOCYTE % (test code = MO%) 11.9 % 5.5-11.7 H EOSINOPHIL % (test code = EO%) 0.0 % 0.9-2.9 L BASOPHIL % (test code = BA%) 0.5 % 0.2-1.0 N NUCLEATED RBC % (test code = 0.0 % 0-1.0 N NRBC%) NEUTROPHIL # (test code = NT#) 4.38 x10 3/uL 2.2-4.8 N IMMATURE GRANULOCYTE # (test 0.09 x10 3/uL 0-0.03 H code = IG#) LYMPHOCYTE # (test code = LY#) 1.29 x10 3/uL 1.3-2.9 L MONOCYTE # (test code = MO#) 0.78 x10 3/uL 0.3-0.8 N EOSINOPHIL # (test code = EO#) 0.00 x10 3/uL 0.0-0.2 N BASOPHIL # (test code = BA#) 0.03 x10 3/uL 0.0-0.1 N DRUGS OF ABUSE [id number] 06:47:00 Test Item Value Reference Range Interpretation Comments UR COCAINE (test code = NEGATIVE NEGATIVE CUTO FF >/= 300 NG/ML COCAU) UR THC CANABINOIDS QL NEGATIVE NEGATIVE CUTOFF >/= 20 NG/ML SQN (test code = CANU) UR AMPHETAMINE QL SQN POSITIVE NEGATIVE CUTOFF >/= 500 NG/ML (test code = AMPHU) UR BARBITURATE QUAL NEGATIVE NEGATIVE CUTOFF >/= 200 NG/ML (test code = BARBQLU) UR BENZODIAZEPINE (test POSITIVE NEGATIVE A CUTO FF >/= 200 NG/ML code = BENZU) UR OPIATES QUAL (test NEGATIVE NEGATIVE CUTOFF >/= 300 NG/ML code = OPIAQLU) UR PHENCYCLIDINE (PCP) NEGATIVE NEGATIVE CUTOF F >/= 25 NG/ML A (test code = PHENCU) Positiv e drug screen result provides only a "PreliminaryPos itive" test result.If a confirmation of positive result is necessary, a morespecific confirmatory te st must be ordered by the physician. Drug screens are per formed for medical (i. e. treatment)purpo ses only. Unconfirm ed screening resul ts must not beused for non-medical pur poses (e.g employment testing). URINALYSIS [id number] 06:29:00 Test Item Value Reference Range Interpretation Comments UA COLOR (test code [place] Yellow A = COLU) UA APPEARANCE (test Slightly-Cloudy Clear code = APPU) UA GLUCOSE DIPSTICK Negative Negative (test code = DGLUU) UA BILIRUBIN Negative Negative DIPSTICK (test code = BILU) UA KETONE DIPSTICK 15 (1+) mg/dL Negative A (test code = KETU) UA SPECIFIC GRAVITY 1.033 <1.030 A (test code = SGU) UA BLOOD DIPSTICK Negative Negative (test code = NARESH) UA PH DIPSTICK (test 6.0 5.0-8.0 code = MIKE) UA PROTEIN DIPSTICK 30 (1+) mg/dL Negative A (test code = PROU) UA UROBILINOGEN 2.0 mg/dL Negative A DIPSTICK (test code = URO) UA NITRITE DIPSTICK Negative Negative (test code = SHERIF) UA LEUKOCYTE NEGATIVE Negative ESTERASE DIPSTICK (test code = LEUU) UA WBC (test code = 0-3 /HPF See_Comment [Automa isai WBCU) message] The system which generated this result transmit isai reference range : <4-5. The reference range was not used to interpret this result as normal/abnormal . UA RBC (test code = 4-5 /HPF See_Comment A [Automa isai RBCU) message] The system which generated this result transmit isai reference range : <4-5. The reference range was not used to interpret this result as normal/abnormal . UA BACTERIA (test None /HPF None-Rare code = BACU) UA MUCUS (test code 4+ /LPF See_Comment A [Automa isai = MUCU) message] The system which generated this result transmit isai reference range : <Rare. The reference range was not used to interpret this result as normal/abnormal . BASIC METABOLIC [id number] 03:28:00 Test Item Value Reference Range Interpretation Comments SODIUM (test code = 136 mmol/L 137-145 L NA) POTASSIUM (test code 4.0 mmol/L 3.4-5.0 N = K) CHLORIDE (test code = 103 mmol/L 98-107 N CL) CARBON DIOXIDE (test 27 mmol/L 22-30 N code = CO2) GLUCOSE (test code = 105 mg/dL 74-106 N GLU) BLOOD UREA NITROGEN 16 mg/dL 9-20 N (test code = BUN) GLOMERULAR FILTRATION 118 >60 The es timated RATE (test code = glomerular filtration GFR) rate is compute d usingpatient ra ce, age (>18), sex, and serum creatinine. If anyof the needed data elements are mi ssing the Laboratory cannot compute an jr mation of the glomerul ar filtration rate . CREATININE (test code 0.8 mg/dL 0.7-1.3 N = CREAT) CALCIUM (test code = 9.0 mg/dL 8.4-10.2 N CA) LIVER FUNCTION [id number] 03:28:00 Test Item Value Reference Range Interpretation Comments TOTAL PROTEIN (test 7.0 g/dL 6.3-8.2 N code = PROT) "A positive bias may occur for patients taking Eltrombopag(a b one marrow stimulan t used to treat thrombocy topenia andaplastic anemia)." ALBUMIN (test code = 4.2 g/dL 3.5-5.0 N ALB) BILIRUBIN TOTAL 1.2 mg/dL 0.2-1.3 N "A positive bias may (test code = BILT) occur for patients taking Eltrombo pag(a bone marrow sti mulant used to treat thrombocytopeni a andaplastic ane ally)." BILIRUBIN CONJUGATED 0 mg/dL 0-0.3 N "A posi tive bias may (test code = BILCON) occur f or patients taking Eltrombo pag(a bone marrow sti mulant used to treat thrombocytopeni a andaplastic ane ally)." CON JUGATED BILIRUBIN IS TH E REPLACEMENT ASS AY FOR DIRECTBILIRUBIN . BILIRUBIN 1.1 mg/dL 0-1.1 N UNCONJUGATED (test code = BILUNC) SGOT/AST (test code 59 U/L 15-46 H = AST) SGPT/ALT (test code 53 U/L 0-34 H = ALT) ALKALINE PHOSPHATASE 63 U/L 38-126 N (test code = ALKP) [id number] 03:28:00 Test Item Value Reference Range Interpretation Comments ACETAMINOPHEN (test code = ACET) <10 ug/mL 10-30 L [id number] 03:28:00 Test Item Value Reference Range Interpretation Comments SALICYLATE (test code < 1.0 mg/dL Negati ve <2.0 = SMITH) mg/dLTherapeuti c Range <20 mg/dL [id number] 03:28:00 Test Item Value Reference Range Interpretation Comments ALCOHOL (test code = < 10 mg/dL <10 ALC) ~~~~~~~~~~~~~~~ ~~~~~~~ ~~~~~~~~~~~~~~~ ~~~~~~~ ~~~~~~ RESU LTS ARE TO BE USED FOR MEDICAL PURPOSES ONLY.F OR LEGAL PURPOSES THE SPECIMEN MUST B E COLLECTED BY A CHAINOF CUSTODY. LEGAL TESTING IS NOT PERFORME D BY THIS FACILITY. ~~~~~~~~~~~~~~~ ~~~~~~~ ~~~~~~~~~~~~~~~ ~~~~~~~ ~~~~~~ CBC W/AUTO [id number] 00:30:00 Test Item Value Reference Range Interpretation Comments WHITE BLOOD CELL (test code = 8.2 x10 3/uL 5.0-12.0 N WBC) RED BLOOD CELL (test code = 4.56 x10 6/uL 4.70-6.10 L RBC) HEMOGLOBIN (test code = HGB) 15.2 g/dL 14.0-18.0 N HEMATOCRIT (test code = HCT) 42.8 % 37.0-49.0 N MEAN CELL VOLUME (test code = 94 fL 80-94 N MCV) MEAN CELL HGB (test code = MCH) 33.3 pg 27-31 H MEAN CELL HGB CONCENTRATION 35.5 g/dL 33-37 N (test code = MCHC) RED CELL DISTRIBUTION WIDTH 12.4 % 11.5-15.5 N (test code = RDW) PLATELET COUNT (test code = 234 x10 3/uL 130-400 N PLT) MEAN PLATELET VOLUME (test code 9.6 fL 9.4-16.4 N = MPV) NEUTROPHIL % (test code = NT%) 73.4 % 43-65 H IMMATURE GRANULOCYTE % (test 0.6 % 0.0-2.0 N code = IG%) LYMPHOCYTE % (test code = LY%) 14.9 % 20.5-45.5 L MONOCYTE % (test code = MO%) 10.5 % 5.5-11.7 N EOSINOPHIL % (test code = EO%) 0.2 % 0.9-2.9 L BASOPHIL % (test code = BA%) 0.4 % 0.2-1.0 N NUCLEATED RBC % (test code = 0.0 % 0-1.0 N NRBC%) NEUTROPHIL # (test code = NT#) 5.99 x10 3/uL 2.2-4.8 H IMMATURE GRANULOCYTE # (test 0.05 x10 3/uL 0-0.03 H code = IG#) LYMPHOCYTE # (test code = LY#) 1.22 x10 3/uL 1.3-2.9 L MONOCYTE # (test code = MO#) 0.86 x10 3/uL 0.3-0.8 H EOSINOPHIL # (test code = EO#) 0.02 x10 3/uL 0.0-0.2 N BASOPHIL # (test code = BA#) 0.03 x10 3/uL 0.0-0.1 N - CT C-SPINE W/O [id number] 23:37:00 Patient Name: ARLINE RAO Unit No: [id number] EXAMS: CPT CODE: [id number] CT C-SPINE W/O CONT [id number] Location: CT cervical spine, 08/29/19 TECHNIQUE: CT examination of the cervical spine without contrast was performed on a helical scanner without contrast with coronal and sagittal reformatted imaging obtained. This was acquired on CT workstation with 2D reformatted images acquired both coronally and sagittally. Scanning conducted in axial plane from skull base down to upper thoracic spine. 1.25mm contiguous slicethickness acquired . The examination was performed utilizing low dose radiation technique on a helical scanner. Automatic exposure control was utilized to reduce radiation dose.. Examination conducted on a updated helical CT scanner CLINICAL HISTORY: Neck pain. Fall. Seizure event. Trauma , patient presenting to the emergency room COMPARISON EXAMS: None of the cervical spine FINDINGS: There is no acute fracture or subluxation. Do not see a significant ventral epidural defect at any level. Assessment of the skull base unremarkable. Prevertebral soft tissues unremarkable. The atlano axial joint is unremarkable . No pneumothorax or rib fracture is seen IMPRESSION: No acute traumatic injury at [facility] Reported and signed by: Dinorah Stearns M.D. CC: Lan Cooper MD Dictated Date/Time: 08/29/2019 (780) Technologist: Ara Steward CTDI: 16.41 DLP: 366.20 Trnscrpt: 08/29/2019 (5549) [email or web address] TATUM Mcarthur NAME: JALEN[address] [place]: [place] [address] : 1985 AGE: 33 SEX: M LOC: BBlayneERS PHONE #: [phone] EXAM DATE: 08/29/2019 STATUS: REG ER FAX #: [phone] RAD #: D/C DT PAGE 1 Signed Report Patient Name: ARLINE RAO Unit No: [id number] EXAMS: CPT CODE: [id number] CT C-SPINE W/O CONT [id number] <Continued> Orig Print D/T: S: 08/29/2019 (2727) TATUM Mcarthur NAME: J[address]EN[address] PHYS: Lan Munroe MD [place] [address] : 1985 AGE: 33 SEX: M LOC: BBlayneERS PHONE #: [phone] EXAM DATE: 08/29/2019 STATUS: REG ER FAX #: [phone] RAD #: D/C DT PAGE 2 Signed Report- CT HEAD/BRAIN W/O [id number] 23:33:00 Patient Name: ARLINE RAO Unit No: [id number] EXAMS: CPT CODE: [id number] CT HEAD/BRAIN W/O CONT [id number] Location: CT head, 08/29/19 COMPARISON EXAMS: None of the brain TECHNIQUE: CT examination of the brain was performed without contrast on a helical scanner. Scanning conducted from skull base through the vertex in the axial plane acquiring contiguous 5mm slice thickness . The examination was performed on updated helical CT scanner utilizing low-dose radiation technique. Automatic exposure control timing was utilized to minimize radiation dose. CLINICAL HISTORY: Trauma, headache. Fall.Patient hit forehead. Patient presenting to the emergency room FINDINGS: No positive mass-effect, midline shift, extra-axial fluid collections or intracranial hemorrhages seen. In particular, no subarachnoid hemorrhage is identified. No intra or extra-axial masses. No skull fracture is seen. The globes are intact. No acute territorial infarction is seen. No cerebral edema is seen. No significant sinus disease is seen.IMPRESSION: No acute finding at 2333 Reported and signed by: Dinorah Stearsn M.D. CC: Lan Cooper MD Dictated Date/Time: 08/29/2019 (233) Technologist: Ara Steward CTDI: 45.96 DLP: 757.79 Trnscrpt: 08/29/2019 (2333) [email or web address] [facility] Lyubov NAME: ARLINE RAO [address] [place] [address] Blvd PHYS: Lan Munroe MD, [place] [address] : 1985 AGE: 33 SEX: M LOC: CASSANDRA PHONE #:[phone] EXAM DATE: 08/29/2019 STATUS: REG ER FAX #: [phone] RAD #: D/C DT PAGE 1 Signed Report Patient Name: ARLINE RAO Unit No: [id number] EXAMS: CPT CODE: [id number] CT HEAD/BRAIN W/O CONT 61640 <Continued> Orig Print D/T: S: 08/29/2019 (2336) TATUM Mcarthur NAME: ARLINE RAO [address] [place] [address] Blvd PHYS: Lan Munroe [place], [place] [address] : 1985 AGE: 33 SEX: M LOC: B.ERS PHONE #: [phone] EXAM DATE:08/29/2019 STATUS: REG ER FAX #: [phone] RAD #: D/C DT PAGE 2 Signed ReportCOMPREHENSIVE METABOLIC [id number] 23:28:00 Test Item Value Reference Range Interpretation Comments SODIUM (test code = 139.0 mmol/L 133-144 N NA) POTASSIUM (test code 3.9 mmol/L 3.5-5.1 N = K) CHLORIDE (test code 106 mmol/L 95-105 H = CL) CARBON DIOXIDE (test 28 mmol/L 21-32 N code = CO2) ANION GAP (test code 5.0 GAP calc 4.0-15.0 N = GAP) GLUCOSE (test code = 95 MG/DL 70-110 N GLU) BLOOD UREA NITROGEN 11 MG/DL 7-18 N (test code = BUN) GLOMERULAR 96 estGFR >60 The estimated FILTRATION RATE glomerular (test code = GFR) filtration rate is computed usingpatient ra ce, age, sex, and s viola creatinine. If any of theneeded da ta elements are mi ssing the Laboratory can notcompute an estimation of t he glomerular filtration rate .The GFR value units = ml/min/1.73 met er squared. EstimatedGFR va lues above 60 should be interpreted as >60, not anexact number.--- DRUG DOSAGE ALERT -- - Drug dosage adjustments uti lize different calculationpara meter s. CREATININE (test 0.91 MG/DL 0.55-1.30 N Results may be code = CREAT) depressed if p atient is takingN-Acetylc ystei ne (NAC) and Metamizole (Dipyrone). TOTAL PROTEIN (test 7.4 G/DL 6.4-8.2 N code = PROT) ALBUMIN (test code = 3.9 G/DL 3.4-5.0 N ALB) ALBUMIN/GLOBULIN 1.1 RATIO 1.2-2.2 L RATIO (test code = A/G) CALCIUM (test code = 8.9 MG/DL 8.5-10.1 N CA) BILIRUBIN TOTAL 0.43 MG/DL 0.00-1.00 N (test code = BILT) BILIRUBIN DIRECT < 0.10 MG/DL 0.00-0.30 N (test code = BILD) BILIRUBIN INDIRECT CALC STACIE MG/DL 0.2-1.3 L (test code = BILIND) SGOT/AST (test code 24 Unit/L 15-37 N = AST) SGPT/ALT (test code 22 Unit/L 12-78 N = ALT) ALKALINE PHOSPHATASE 58 Unit/L 45-117 N TOTAL (test code = ALKP) INDEX HEMOLYSIS 4 SMALL 50-200 1 NORMAL A (test code = MG Index/DL HEMINDEX) INDEX ICTERIC (test 1 NORMAL <2 MG 1 NORMAL code = ICTINDEX) Index/DL INDEX LIPEMIA (test 1 NORMAL <50 1 NORMAL code = LIPINDEX) MG Index/DL CBC W/AUTO [id number] 23:07:00 Test Item Value Reference Range Interpretation Comments WHITE BLOOD CELL (test code = 6.7 K/mm3 4.1-12.1 N WBC) RED BLOOD CELL (test code = RBC) 4.67 M/mm3 3.8-5.5 N HEMOGLOBIN (test code = HGB) 15.4 G/DL 10.6-15.8 N HEMATOCRIT (test code = HCT) 45.6 % 31.8-47.4 N MEAN CELL VOLUME (test code = 97.6 fL 80.1-101.1 N MCV) MEAN CELL HGB (test code = MCH) 33.0 pg 25.3-35.3 N MEAN CELL HGB CONCETRATION (test 33.8 G/DL 32.7-35.1 N code = MCHC) RED CELL DISTRIBUTION WIDTH 11.9 % 12.2-16.4 L (test code = RDW) RED CELL DISTRIBUTION WIDTH 43.1 fL 35.1-43.9 N (test code = RDW-SD) PLATELET COUNT (test code = PLT) 211 K/mm3 155-337 N MEAN PLATELET VOLUME (test code 10.3 fL 7.6-10.4 N = MPV) GRANULOCYTE % (test code = GR%) 54.5 % 37.8-82.6 N IMMATURE GRANULOCYTE % (test 1.5 % 0.0-2.0 N code = IG%) LYMPHOCYTE % (test code = LY%) 30.8 % 14.1-45.4 N MONOCYTE % (test code = MO%) 11.6 % 2.5-11.7 N EOSINOPHIL % (test code = EO%) 1.1 % 0.0-6.2 N BASOPHIL % (test code = BA%) 0.5 % 0.0-2.6 N NUCLEATED RBC % (test code = 0.0 /100WBC% 0.0-1.0 N NRBC%) GRANULOCYTE # (test code = GR#) 3.63 k/mm3 2.0-13.7 N IMMATURE GRANULOCYTE # (test 0.10 K/mm3 0.00-0.03 H code = IG#) LYMPHOCYTE # (test code = LY#) 2.05 K/mm3 0.6-3.8 N MONOCYTE # (test code = MO#) 0.77 K/mm3 0.11-0.59 H EOSINOPHIL # (test code = EO#) 0.07 K/mm3 0.0-0.4 N BASOPHIL # (test code = BA#) 0.03 K/mm3 0.0-0.1 N NUCLEATED RBC # (test code = 0.00 K/mm3 0.00-0.05 N NRBC#) BASIC METABOLIC [id number] 14:23:00 Test Item Value Reference Range Interpretation Comments SODIUM (test code = 139.0 mmol/L 133-144 N NA) POTASSIUM (test code 3.8 mmol/L 3.5-5.1 N = K) CHLORIDE (test code 108 mmol/L 95-105 H = CL) CARBON DIOXIDE (test 24 mmol/L 21-32 N code = CO2) ANION GAP (test code 7.0 GAP calc 4.0-15.0 N = GAP) GLUCOSE (test code = 98 MG/DL 70-110 N GLU) BLOOD UREA NITROGEN 28 MG/DL 7-18 H (test code = BUN) CREATININE (test 1.00 MG/DL 0.55-1.30 N Results may be code = CREAT) depressed if patient is takingN-Acetylc yste ine (NAC) and Metamizole (Dipyrone). CALCIUM (test code = 9.0 MG/DL 8.5-10.1 N CA) INDEX HEMOLYSIS 3 SMALL 25-50 1 NORMAL (test code = MG Index/DL HEMINDEX) INDEX ICTERIC (test 1 NORMAL <2 MG 1 NORMAL code = ICTINDEX) Index/DL INDEX LIPEMIA (test 1 NORMAL <50 MG 1 NORMAL code = LIPINDEX) Index/DL HEPATIC FUNCTION [id number] 14:23:00 Test Item Value Reference Range Interpretation Comments TOTAL PROTEIN (test code = PROT) 7.1 G/DL 6.4-8.2 N ALBUMIN (test code = ALB) 3.9 G/DL 3.4-5.0 N BILIRUBIN TOTAL (test code = BILT) 1.59 MG/DL 0.00-1.00 H BILIRUBIN DIRECT (test code = 0.38 MG/DL 0.00-0.30 H BILD) BILIRUBIN INDIRECT (test code = 1.21 MG/DL 0.2-1.3 N BILIND) SGOT/AST (test code = AST) 55 Unit/L 15-37 H SGPT/ALT (test code = ALT) 43 Unit/L 12-78 N ALKALINE PHOSPHATASE TOTAL (test 68 Unit/L 45-117 N code = ALKP) [id number] 14:23:00 Test Item Value Reference Range Interpretation Comments ALCOHOL (test code = 3 MG/DL 0-10 N MEDICAL ALCOHOL RESULTS. ALC) SITE WAS PREPPE D WITH BETADINE. <10 MG/DL ARE CONSI DERED NEGATIVE. >400 MG/DL MAY BE FATAL.RESULTS F OR MEDICAL USE ONL Y. NOT TO BE USED FOR FOR ENSIC PURPOSES. BASIC METABOLIC [id number] 14:17:00 Test Item Value Reference Range Interpretation Comments SODIUM (test code = NA) 139.0 mmol/L 133-144 N POTASSIUM (test code = K) 3.8 mmol/L 3.5-5.1 N CHLORIDE (test code = CL) 108 mmol/L 95-105 H CARBON DIOXIDE (test code mmol/L 21-32 = CO2) ANION GAP (test code = GAP calc 4.0-15.0 GAP) GLUCOSE (test code = GLU) MG/DL 70-110 BLOOD UREA NITROGEN (test MG/DL 7-18 code = BUN) CREATININE (test code = MG/DL 0.55-1.30 CREAT) CALCIUM (test code = CA) MG/DL 8.5-10.1 INDEX HEMOLYSIS (test 3 SMALL 25-50 MG 1 NORMAL code = HEMINDEX) Index/DL INDEX ICTERIC (test code 1 NORMAL <2 MG 1 NORMAL = ICTINDEX) Index/DL INDEX LIPEMIA (test code 1 NORMAL <50 MG 1 NORMAL = LIPINDEX) Index/DL HEPATIC FUNCTION [id number] 14:17:00 Test Item Value Reference Range Interpretation Comments TOTAL PROTEIN (test code = PROT) G/DL 6.4-8.2 ALBUMIN (test code = ALB) G/DL 3.4-5.0 BILIRUBIN TOTAL (test code = BILT) MG/DL 0.00-1.00 BILIRUBIN DIRECT (test code = BILD) MG/DL 0.00-0.30 BILIRUBIN INDIRECT (test code = MG/DL 0.2-1.3 BILIND) SGOT/AST (test code = AST) Unit/L 15-37 SGPT/ALT (test code = ALT) Unit/L 12-78 ALKALINE PHOSPHATASE TOTAL (test code Unit/L 45-117 = ALKP) [id number] 14:17:00 Test Item Value Reference Range Interpretation Comments ALCOHOL (test code = ALC) MG/DL 0-10 CBC W/O [id number] 14:04:00 Test Item Value Reference Range Interpretation Comments WHITE BLOOD CELL (test code = WBC) 5.8 K/mm3 4.1-12.1 N RED BLOOD CELL (test code = RBC) 4.13 M/mm3 3.8-5.5 N HEMOGLOBIN (test code = HGB) 13.7 G/DL 10.6-15.8 N HEMATOCRIT (test code = HCT) 39.5 % 31.8-47.4 N MEAN CELL VOLUME (test code = MCV) 95.6 fL 80.1-101.1 N MEAN CELL HGB (test code = MCH) 33.2 pg 25.3-35.3 N MEAN CELL HGB CONCETRATION (test 34.7 G/DL 32.7-35.1 N code = MCHC) RED CELL DISTRIBUTION WIDTH (test 12.5 % 12.2-16.4 N code = RDW) PLATELET COUNT (test code = PLT) 272 K/mm3 155-337 N MEAN PLATELET VOLUME (test code = 9.4 fL 7.6-10.4 N MPV) RPR [id number] 14:01:19 Test Item Value Reference Range Interpretation Comments RPR Qual (test code = RPR Qual) Non-Reactive Non-Reactive Reactive Control (test code = Reactive Reactive Control) Weak Reactive Control (test Weak Reactive code = Weak Reactive Control) Non-Reactive Control (test code Non-Reactive = Non-Reactive Control) Lot # (test code = Lot #) [id number] N Expiration Dt (test code = 12-17-2019 N Expiration Dt) Thyroid Stimulating [id number] 09:09:16 Test Item Value Reference Range Interpretation Comments TSH (test code = TSH) 0.418 mIU/mL 0.270-4.200 Lipid [id number] 08:59:32 Test Item Value Reference Range Interpretation Comments Cholesterol Total 131 mg/dL 0-200 RISK OF HE ART (test code = DISEASEPublishe d by Cholesterol Total) [employer] Giovanna lyte Optimal Borderl ine Increased RiskC HOL <200 200-239 >2 40TRIG <150 150-199 >2 00HDL Male >60 <40H DL Female >60 <5 0LDL <100 130-159 >1 60LDL Near optimal is 100-129 Triglycerides (test 81 mg/dL 9-200 code = Triglycerides) HDL (test code = HDL) 40 mg/dL 40-60 LDL (test code = LDL) 75 mg/dL 0-130 The eq uation being used in this calcula tion is LDL = (Chol - H DL) - (Trig / 5) VLDL (test code = 16 mg/dL 5-40 The equati on being used VLDL) in this calcula tion is VLDL = Trig / 5 Chol/HDL (test code = 3.3 ratio 0.0-5.0 Chol/HDL) LDL/HDL Ratio (test 2 N The equa tion being used code = LDL/HDL Ratio) in thi s calculation is LDL/HDL Ratio=L DL Calc/HDL Chol Thyroid Stimulating [id number] 10:03:42 Test Item Value Reference Range Interpretation Comments TSH (test code = TSH) 1.560 mIU/mL 0.270-4.200 Lipid [id number] 09:52:10 Test Item Value Reference Range Interpretation Comments Cholesterol Total 210 mg/dL 0-200 H RISK OF HE ART (test code = DISEASEPublishe d by Cholesterol Total) [employer] Giovanna lyte Optimal Borderl ine Increased RiskC HOL <200 200-239 >2 40TRIG <150 150-199 >2 00HDL Male >60 <40H DL Female >60 <5 0LDL <100 130-159 >1 60LDL Near optimal is 100-129 Triglycerides (test 88 mg/dL 9-200 code = Triglycerides) HDL (test code = HDL) 55 mg/dL 40-60 LDL (test code = LDL) 138 mg/dL 0-130 H The eq uation being used in this calcula tion is LDL = (Chol - H DL) - (Trig / 5) VLDL (test code = 18 mg/dL 5-40 The equati on being used VLDL) in this calcula tion is VLDL = Trig / 5 Chol/HDL (test code = 3.8 ratio 0.0-5.0 Chol/HDL) LDL/HDL Ratio (test 2 N The equa tion being used code = LDL/HDL Ratio) in thi s calculation is LDL/HDL Ratio=L DL Calc/HDL Chol RPR [id number] 11:37:43 Test Item Value Reference Range Interpretation Comments RPR Qual (test code = RPR Qual) Non-Reactive Non-Reactive Reactive Control (test code = Reactive Reactive Control) Weak Reactive Control (test Weak Reactive code = Weak Reactive Control) Non-Reactive Control (test code Non-Reactive = Non-Reactive Control) Lot # (test code = Lot #) [id number] N Expiration Dt (test code = 12-17-19 N Expiration Dt) Urinalysis [id number] 23:07:47 Test Item Value Reference Range Interpretation Comments UA WBC (test code = UA WBC) None Seen 0-5 UA RBC (test code = UA RBC) None Seen 0-5 UA Bacteria (test code = UA None Seen Bacteria) UA Squam Epithelial (test code = UA 0-5 Squam Epithelial) Comprehensive Metabolic [id number] 22:29:50 Test Item Value Reference Range Interpretation Comments Sodium Level (test code = Sodium 144.0 mmol/L 135.0-145.0 Level) Potassium Level (test code = 4.6 mmol/L 3.5-5.1 Potassium Level) Chloride Level (test code = 104 mmol/L 98-105 Chloride Level) CO2 (test code = CO2) 24 mmol/L 22-29 Anion Gap (test code = Anion 16 mmol/L 7-16 Gap) BUN (test code = BUN) 10.10 mg/dL 6.00-20.00 Creatinine Level (test code = 1.10 mg/dL 0.70-1.20 Creatinine Level) BUN/Creat Ratio (test code = 9 N BUN/Creat Ratio) Glucose Level (test code = 96 mg/dL 70-115 Glucose Level) Calcium Level (test code = 9.7 mg/dL 8.3-10.5 Calcium Level) Alk Phos (test code = Alk Phos) 89 U/L 40-129 Bilirubin Total (test code = 0.3 mg/dL 0.1-0.9 Bilirubin Total) Albumin Level (test code = 4.7 g/dL 3.5-5.2 Albumin Level) Protein Total (test code = 7.4 g/dL 6.4-8.3 Protein Total) ALT (test code = ALT) 29 U/L 1-41 AST (test code = AST) 28 U/L 1-40 Globulin (test code = Globulin) 2.7 g/dL 2.9-3.1 L A/G Ratio (test code = A/G 1.7 ratio N Ratio) Comprehensive Metabolic [id number] 22:29:50 Test Item Value Reference Range Interpretation Comments Sodium Level (test 144.0 mmol/L 135.0-145.0 code = Sodium Level) Potassium Level 4.6 mmol/L 3.5-5.1 (test code = Potassium Level) Chloride Level (test 104 mmol/L 98-105 code = Chloride Level) CO2 (test code = 24 mmol/L 22-29 CO2) Anion Gap (test code 16 mmol/L 7-16 = Anion Gap) BUN (test code = 10.10 mg/dL 6.00-20.00 BUN) Creatinine Level 1.10 mg/dL 0.70-1.20 (test code = Creatinine Level) BUN/Creat Ratio 9 N (test code = BUN/Creat Ratio) Glucose Level (test 96 mg/dL 70-115 code = Glucose Level) Calcium Level (test 9.7 mg/dL 8.3-10.5 code = Calcium Level) Alk Phos (test code 89 U/L 40-129 = Alk Phos) Bilirubin Total 0.3 mg/dL 0.1-0.9 (test code = Bilirubin Total) Albumin Level (test 4.7 g/dL 3.5-5.2 code = Albumin Level) Protein Total (test 7.4 g/dL 6.4-8.3 code = Protein Total) ALT (test code = 29 U/L 1-41 ALT) AST (test code = 28 U/L 1-40 AST) Globulin (test code 2.7 g/dL 2.9-3.1 L = Globulin) A/G Ratio (test code 1.7 ratio N = A/G Ratio) eGFR AA (test code = >60 N eGFR (e stimated eGFR AA) mL/min/1.73 m2 Glomerular Filtration Rate ) is an estimated va lue, calculated from the patient's serum creatinine usin g the MDRD equation. It is NOT the patient 's actual GFR. The eGFR provides a more clinically usef ul measure of kidn ey disease than se rum creatinine alone.This calculation anju es sex and race in to account, if the information is provided. If th e race is not provided, and t he patient is -Julita n, multiply by 1.2 12. If sex is not provided, and t he patient is fema le, multiply by 0.7 42. Results for pat ients <18 years of ag e have not been validated by th e MDRD study and should be interpreted wit h caution. eGFR R esult Interpretation: eGFR > or = 60 is in the Normal RangeeGF R < 60 may mean kid tran diseaseeGFR < 1 5 may mean kidney failure Rang es recommended by the National Kidney Foundation, http://nkdep.ni h.gov Alcohol [id number] 22:29:50 Test Item Value Reference Range Interpretation Comments Ethanol Level (test 0.06 g/dL 0.00-0.01 H Intoxica isai 0.080 g/dL code = Ethanol or more Level) Ethanol Inst (test 58 N code = Ethanol Inst) Comprehensive Metabolic [id number] 22:29:50 Test Item Value Reference Range Interpretation Comments Sodium Level (test 144.0 mmol/L 135.0-145.0 code = Sodium Level) Potassium Level 4.6 mmol/L 3.5-5.1 (test code = Potassium Level) Chloride Level (test 104 mmol/L 98-105 code = Chloride Level) CO2 (test code = 24 mmol/L 22-29 CO2) Anion Gap (test code 16 mmol/L 7-16 = Anion Gap) BUN (test code = 10.10 mg/dL 6.00-20.00 BUN) Creatinine Level 1.10 mg/dL 0.70-1.20 (test code = Creatinine Level) BUN/Creat Ratio 9 N (test code = BUN/Creat Ratio) Glucose Level (test 96 mg/dL 70-115 code = Glucose Level) Calcium Level (test 9.7 mg/dL 8.3-10.5 code = Calcium Level) Alk Phos (test code 89 U/L 40-129 = Alk Phos) Bilirubin Total 0.3 mg/dL 0.1-0.9 (test code = Bilirubin Total) Albumin Level (test 4.7 g/dL 3.5-5.2 code = Albumin Level) Protein Total (test 7.4 g/dL 6.4-8.3 code = Protein Total) ALT (test code = 29 U/L 1-41 ALT) AST (test code = 28 U/L 1-40 AST) Globulin (test code 2.7 g/dL 2.9-3.1 L = Globulin) A/G Ratio (test code 1.7 ratio N = A/G Ratio) eGFR AA (test code = >60 N eGFR (e stimated eGFR AA) mL/min/1.73 m2 Glomerular Filtration Rate ) is an estimated va lue, calculated from the patient's serum creatinine usin g the MDRD equation. It is NOT the patient 's actual GFR. The eGFR provides a more clinically usef ul measure of kidn ey disease than se rum creatinine alone.This calculation anju es sex and race in to account, if the information is provided. If th e race is not provided, and t he patient is -Julita n, multiply by 1.2 12. If sex is not provided, and t he patient is fema le, multiply by 0.7 42. Results for pat ients <18 years of ag e have not been validated by [facility] MDRD study and should be interpreted wit h caution. eGFR R esult Interpretation: eGFR > or = 60 is in the Normal RangeeGF R < 60 may mean kid tran diseaseeGFR < 1 5 may mean kidney failure Rang es recommended by the National Kidney Foundation, http://nkdep.ni h.gov eGFR Non-AA (test >60.00 N eGFR (jr mated code = eGFR Non-AA) mL/min/1.73 m2 Glomer ular Filtration Rate ) is an estimated va lue, calculated from the patient's serum creatinine usin g the MDRD equation. It is NOT the patient 's actual GFR. The eGFR provides a more clinically usef ul measure of kidn ey disease than se rum creatinine alone.This calculation anju es sex and race in to account, if the information is provided. If [facility] race is not provided, and t he patient is -Julita n, multiply by 1.2 12. If sex is not provided, and t he patient is fema le, multiply by 0.7 42. Results for pat ients <18 years of ag e have not been validated by [facility] MDRD study and should be interpreted wit h caution. eGFR R esult Interpretation: eGFR > or = 60 is in the Normal RangeeGF R < 60 may mean kid tran diseaseeGFR < 1 5 may mean kidney failure Rang es recommended by the National Kidney Foundation, http://nkdep.ni h.gov Complete Blood Count with [id number] 22:14:44 Test Item Value Reference Range Interpretation Comments WBC (test code = WBC) 8.5 x10 4.4-10.5 RBC (test code = RBC) 4.74 x10 4.10-5.70 Hgb (test code = Hgb) 16.0 g/dL 13.4-17.4 Hct (test code = Hct) 46.2 % 38.7-52.0 MCV (test code = MCV) 97.50 fL 80.00-100.00 MCHC (test code = 34.60 g/dL 32.00-37.50 MCHC) RDW CV (test code = 13.0 % 11.5-14.5 RDW CV) MCH (test code = MCH) 33.8 pg 27.0-32.5 H Platelets (test code = 265.0 x10 140.0-440.0 Platelets) MPV (test code = MPV) 9.9 fL N Slide Review (test Auto Auto Result cr eated by code = Slide Review) GL_SJM_ SLIDE_REV_AUTO nRBC (test code = 0 N nRBC) NRBC Abs (test code = 0.00 x10 N NRBC Abs) IPF (test code = IPF) 0 % N Automated [id number] 22:14:44 Test Item Value Reference Range Interpretation Comments Neutro Auto (test code = Neutro 72.2 % 36.0-70.0 H Auto) Lymph Auto (test code = Lymph Auto) 19.6 % 12.0-44.0 Highland Auto (test code = Highland Auto) 6.9 % 0.0-11.0 Eos, Auto (test code = Eos, Auto) 0.0 % 0.0-7.0 Basophil Auto (test code = Basophil 0.4 % 0.0-2.0 Auto) Neutro Absolute (test code = Neutro 6.1 x10 1.6-7.4 Absolute) Lymph Absolute (test code = Lymph 1.67 x10 .50-4.60 Absolute) Highland Absolute (test code = Highland .59 x10 .00-1.20 Absolute) Eos Absolute (test code = Eos 0.00 x10 0.00-0.74 Absolute) Baso Absolute (test code = Baso 0.03 x10 0.00-0.21 Absolute) IG [id number] 22:14:44 Test Item Value Reference Range Interpretation Comments IG (test code = IG) 0.9 % 0.0-5.0 IG Abs (test code = IG Abs) 0 x10 N Urine Drug [id number] 22:14:38 Test Item Value Reference Range Interpretation Comments Amphetamine Screen Ur Negative Negative (test code = Amphetamine Screen Ur) Barbiturate Screen Ur Negative Negative (test code = Barbiturate Screen Ur) Benzodiazepines Ur (test Negative Negative code = Benzodiazepines Ur) Cocaine Screen Ur (test POSITIVE Negative A code = Cocaine Screen Ur) U Methadone Scr (test Negative Negative code = U Methadone Scr) Opiate Screen Ur (test Negative Negative code = Opiate Screen Ur) U PCP Scrn (test code = Negative Negative U PCP Scrn) Cannabinoid Screen Ur Negative Negative (test code = Cannabinoid Screen Ur) U TCA (test code = U Negative Negative The res ults of all TCA) drug screen carolee ts are only preliminar y. Clinical consideration a nd professional ju dgment should be appli ed to any drug of abu se test result, particularly wh en preliminary pos itive results are obt ained. Please order a separate confir matory test if desired . Urinalysis with Microscopic if [id number] 21:53:48 Test Item Value Reference Range Interpretation Comments UA Color (test code = YELLO Yellow UA Color) UA Appear (test code = CLEAR Clear UA Appear) UA pH (test code = UA 7 N pH) UA Spec Grav (test code 1.014 1.001-1.035 = UA Spec Grav) UA Glucose (test code = NEG Negative UA Glucose) UA Ketones (test code = NEG Negative UA Ketones) UA Blood (test code = 10 cells/mcL Negative A UA Blood) UA Protein (test code = NEG Negative UA Protein) UA Bili (test code = UA NEG Negative Bili) UA Urobilinogen (test 1 mg/dL >0.2 A code = UA Urobilinogen) UA Nitrite (test code = NEG Negative UA Nitrite) UA Leuk Est (test code NEG Negative = UA Leuk Est) UA Micro Ind? (test Indicated Not Indicated A Result created by code = UA Micro Ind?) rule [id number] _IN D Urine Drug [id number] 09:31:28 Test Item Value Reference Range Interpretation Comments Amphetamine Screen Ur POSITIVE Negative A (test code = Amphetamine Screen Ur) Barbiturate Screen Ur Negative Negative (test code = Barbiturate Screen Ur) Benzodiazepines Ur (test Negative Negative code = Benzodiazepines Ur) Cocaine Screen Ur (test POSITIVE Negative A code = Cocaine Screen Ur) U Methadone Scr (test Negative Negative code = U Methadone Scr) Opiate Screen Ur (test Negative Negative code = Opiate Screen Ur) U PCP Scrn (test code = Negative Negative U PCP Scrn) Cannabinoid Screen Ur Negative Negative (test code = Cannabinoid Screen Ur) U TCA (test code = U Negative Negative The res ults of all TCA) drug screen carolee ts are only preliminar y. Clinical consideration a nd professional ju dgment should be appli ed to any drug of abu se test result, particularly wh en preliminary pos itive results are obt ained. Please order a separate confir matory test if desired . Comprehensive Metabolic [id number] 09:17:22 Test Item Value Reference Range Interpretation Comments Sodium Level (test code = Sodium 139.0 mmol/L 135.0-145.0 Level) Potassium Level (test code = 4.7 mmol/L 3.5-5.1 Potassium Level) Chloride Level (test code = 98 mmol/L 98-105 Chloride Level) CO2 (test code = CO2) 26 mmol/L 22-29 Anion Gap (test code = Anion 15 mmol/L 7-16 Gap) BUN (test code = BUN) 19.00 mg/dL 6.00-20.00 Creatinine Level (test code = 0.90 mg/dL 0.70-1.20 Creatinine Level) BUN/Creat Ratio (test code = 21 N BUN/Creat Ratio) Glucose Level (test code = 91 mg/dL 70-115 Glucose Level) Calcium Level (test code = 9.9 mg/dL 8.3-10.5 Calcium Level) Alk Phos (test code = Alk Phos) 80 U/L 40-129 Bilirubin Total (test code = 1.0 mg/dL 0.1-0.9 H Bilirubin Total) Albumin Level (test code = 5.1 g/dL 3.5-5.2 Albumin Level) Protein Total (test code = 7.5 g/dL 6.4-8.3 Protein Total) ALT (test code = ALT) 31 U/L 1-41 AST (test code = AST) 32 U/L 1-40 Globulin (test code = Globulin) 2.4 g/dL 2.9-3.1 L A/G Ratio (test code = A/G 2.1 ratio N Ratio) Comprehensive Metabolic [id number] 09:17:22 Test Item Value Reference Range Interpretation Comments Sodium Level (test 139.0 mmol/L 135.0-145.0 code = Sodium Level) Potassium Level 4.7 mmol/L 3.5-5.1 (test code = Potassium Level) Chloride Level (test 98 mmol/L 98-105 code = Chloride Level) CO2 (test code = 26 mmol/L 22-29 CO2) Anion Gap (test code 15 mmol/L 7-16 = Anion Gap) BUN (test code = 19.00 mg/dL 6.00-20.00 BUN) Creatinine Level 0.90 mg/dL 0.70-1.20 (test code = Creatinine Level) BUN/Creat Ratio 21 N (test code = BUN/Creat Ratio) Glucose Level (test 91 mg/dL 70-115 code = Glucose Level) Calcium Level (test 9.9 mg/dL 8.3-10.5 code = Calcium Level) Alk Phos (test code 80 U/L 40-129 = Alk Phos) Bilirubin Total 1.0 mg/dL 0.1-0.9 H (test code = Bilirubin Total) Albumin Level (test 5.1 g/dL 3.5-5.2 code = Albumin Level) Protein Total (test 7.5 g/dL 6.4-8.3 code = Protein Total) ALT (test code = 31 U/L 1-41 ALT) AST (test code = 32 U/L 1-40 AST) Globulin (test code 2.4 g/dL 2.9-3.1 L = Globulin) A/G Ratio (test code 2.1 ratio N = A/G Ratio) eGFR AA (test code = >60 N eGFR (e stimated eGFR AA) mL/min/1.73 m2 Glomerular Filtration Rate ) is an estimated va lue, calculated from the patient's serum creatinine usin g the MDRD equation. It is NOT the patient 's actual GFR. The eGFR provides a more clinically usef ul measure of kidn ey disease than se rum creatinine alone.This calculation anju es sex and race in to account, if the information is provided. If th e race is not provided, and t he patient is -Julita n, multiply by 1.2 12. If sex is not provided, and t he patient is fema le, multiply by 0.7 42. Results for pat ients <18 years of ag e have not been validated by th e MDRD study and should be interpreted wit h caution. eGFR R esult Interpretation: eGFR > or = 60 is in the Normal RangeeGF R < 60 may mean kid tran diseaseeGFR < 1 5 may mean kidney failure Rang es recommended by the National Kidney Foundation, http://nkdep.ni h.gov Comprehensive Metabolic [id number] 09:17:22 Test Item Value Reference Range Interpretation Comments Sodium Level (test 139.0 mmol/L 135.0-145.0 code = Sodium Level) Potassium Level 4.7 mmol/L 3.5-5.1 (test code = Potassium Level) Chloride Level (test 98 mmol/L 98-105 code = Chloride Level) CO2 (test code = 26 mmol/L 22-29 CO2) Anion Gap (test code 15 mmol/L 7-16 = Anion Gap) BUN (test code = 19.00 mg/dL 6.00-20.00 BUN) Creatinine Level 0.90 mg/dL 0.70-1.20 (test code = Creatinine Level) BUN/Creat Ratio 21 N (test code = BUN/Creat Ratio) Glucose Level (test 91 mg/dL 70-115 code = Glucose Level) Calcium Level (test 9.9 mg/dL 8.3-10.5 code = Calcium Level) Alk Phos (test code 80 U/L 40-129 = Alk Phos) Bilirubin Total 1.0 mg/dL 0.1-0.9 H (test code = Bilirubin Total) Albumin Level (test 5.1 g/dL 3.5-5.2 code = Albumin Level) Protein Total (test 7.5 g/dL 6.4-8.3 code = Protein Total) ALT (test code = 31 U/L 1-41 ALT) AST (test code = 32 U/L 1-40 AST) Globulin (test code 2.4 g/dL 2.9-3.1 L = Globulin) A/G Ratio (test code 2.1 ratio N = A/G Ratio) eGFR AA (test code = >60 N eGFR (e stimated eGFR AA) mL/min/1.73 m2 Glomerular Filtration Rate ) is an estimated va lue, calculated from the patient's serum creatinine usin g the MDRD equation. It is NOT the patient 's actual GFR. The eGFR provides a more clinically usef ul measure of kidn ey disease than se rum creatinine alone.This calculation anju es sex and race in to account, if the information is provided. If th e race is not provided, and t he patient is -Julita n, multiply by 1.2 12. If sex is not provided, and t he patient is fema le, multiply by 0.7 42. Results for pat ients <18 years of ag e have not been validated by [facility] MDRD study and should be interpreted wit h caution. eGFR R esult Interpretation: eGFR > or = 60 is in the Normal RangeeGF R < 60 may mean kid tran diseaseeGFR < 1 5 may mean kidney failure Rang es recommended by the National Kidney [employer], http://nkdep.ni h.gov eGFR Non-AA (test >60.00 N eGFR (jr mated code = eGFR Non-AA) mL/min/1.73 m2 Glomer ular Filtration Rate ) is an estimated va lue, calculated from the patient's serum creatinine usin g the MDRD equation. It is NOT the patient 's actual GFR. The eGFR provides a more clinically usef ul measure of kidn ey disease than se rum creatinine alone.This calculation anju es sex and race in to account, if the information is provided. If e race is not provided, and t he patient is -Julita n, multiply by 1.2 12. If sex is not provided, and t he patient is fema le, multiply by 0.7 42. Results for pat ients <18 years of ag e have not been validated by [facility] MDRD study and should be interpreted wit h caution. eGFR R esult Interpretation: eGFR > or = 60 is in the Normal RangeeGF R < 60 may mean kid tran diseaseeGFR < 1 5 may mean kidney failure Rang es recommended by the National Kidney Foundation, http://nkdep.ni h.gov IG [id number] 09:08:10 Test Item Value Reference Range Interpretation Comments IG (test code = IG) 0.4 % 0.0-5.0 IG Abs (test code = IG Abs) 0 x10 N Complete Blood Count with [id number] 09:08:09 Test Item Value Reference Range Interpretation Comments WBC (test code = WBC) 6.9 x10 4.4-10.5 RBC (test code = RBC) 4.98 x10 4.10-5.70 Hgb (test code = Hgb) 18.1 g/dL 13.4-17.4 H MCV (test code = MCV) 97.60 fL 80.00-100.00 Hct (test code = Hct) 48.6 % 38.7-52.0 MCHC (test code = 37.20 g/dL 32.00-37.50 MCHC) RDW CV (test code = 12.8 % 11.5-14.5 RDW CV) MCH (test code = MCH) 36.3 pg 27.0-32.5 H Platelets (test code = 239.0 x10 140.0-440.0 Platelets) MPV (test code = MPV) 9.9 fL N Slide Review (test Auto Auto Result cr eated by code = Slide Review) GL_SJM_ SLIDE_REV_AUTO nRBC (test code = 0 N nRBC) NRBC Abs (test code = 0.00 x10 N NRBC Abs) IPF (test code = IPF) 0 % N Automated [id number] 09:08:09 Test Item Value Reference Range Interpretation Comments Neutro Auto (test code = Neutro 73.6 % 36.0-70.0 H Auto) Lymph Auto (test code = Lymph Auto) 17.3 % 12.0-44.0 Highland Auto (test code = [place]land Auto) 8.3 % 0.0-11.0 Eos, Auto (test code = Eos, Auto) 0.1 % 0.0-7.0 Basophil Auto (test code = Basophil 0.3 % 0.0-2.0 Auto) Neutro Absolute (test code = Neutro 5.1 x10 1.6-7.4 Absolute) Lymph Absolute (test code = Lymph 1.19 x10 .50-4.60 Absolute) [place] Absolute (test code = [place] .57 x10 .00-1.20 Absolute) Eos Absolute (test code = Eos 0.01 x10 0.00-0.74 Absolute) Baso Absolute (test code = Baso 0.02 x10 0.00-0.21 Absolute) Comprehensive Metabolic [id number] 13:14:00 Test Item Value Reference Range Interpretation Comments Sodium (test code = 141 mmol/L 135-145 N NA) Potassium (test 3.8 mmol/L 3.5-5.1 N code = K) Chloride (test code 103 mmol/L 98-105 N = CL) Carbon Dioxide 28 mmol/L 22-29 N (test code = CO2) Glucose (test code 83 mg/dL 70-115 N = GLU) Blood Urea Nitrogen 17 mg/dL 6-20 N (test code = BUN) Creatinine (test 0.9 mg/dL 0.7-1.2 N code = CREAT) Calcium (test code 9.6 mg/dL 8.3-10.5 N = CA) Prot Total (test 7.3 g/dL 6.4-8.3 N code = TP) Albumin (test code 4.6 g/dL 3.5-5.2 N = ALB) A/G Ratio (test 1.7 Ratio code = AGRATIO) Globulin (test code 2.7 2.9-3.1 L = GLOB) Bili Total (test 1.1 mg/dL 0.1-0.9 H code = TBIL) Alk Phos (test code 73 U/L 40-129 N = APHOS) AST (test code = 75 U/L 1-40 H AST) ALT (test code = 60 U/L 1-41 H ALT) BUN/Creatinine 18.9 Ratio (test code = BCRATIO) Anion Gap (test 10 mmol/L 7-16 N code = AGAP) Estimated GFR (test >60 eGFR (es timated code = GFR) mL/min/1.73m2 Glomerular Darren tration Rate) is an est imated value,calculate d from the patient's s viola creatinine usin g the MDRD equation.I t is NOT the patient 's actual GFR. The eGFR provides a more clinicallyusefu l measure of kidn ey disease than se rum creatinine alone.This calculation anju es sex and race into account, if the informationis provided. If th e race is not provided , and the patient isAfrican-Ameri can, multiply by 1.2 12. If sex is not prov ided, and thepatient is female, multipl y by 0.742. Results for patients <18 ye ars ofage have not been validated by th e MDRD study and shoul d be interpretedwith caution.eGFR Re sult Interpretation: eGFR > or = 60 is in t he Normal RangeeGF R < 60 may mean kidney diseaseeGFR < 1 5 may mean kidney failureRange s recommended by the National Kidney Foundation,http ://nkd ep.nih.gov [id number] 13:09:00 Test Item Value Reference Range Interpretation Comments Amphetamine (test Negative Negative N For diagno stic code = AMPH) purposes only, positive result s should always b e assessedin conjunctionwith the patient's medic al history,clinica l examination and otherfindings.T o fulfill legal requirements, a more specific altern ate chemical method must be used inorder to obtain a Confirmed giovanna lytical result. GC/MS i s the preferred confi rmatory method. Barbiturates (test Negative Negative N code = EARL) Benzodiazepine (test Negative Negative N code = MILAGROS) Cocaine (test code = POSITIVE Negative A COCA) Methadone (test code Negative Negative N = MTHD) Opiates (test code = Negative Negative N OPIA) PCP (test code = PCP) Negative Negative N Propoxyphene (test Negative Negative N code = PROPOX) THC (test code = THC) Negative Negative N Alcohol, Urine (test <0.01 g/dL 0.00-0.01 N code = ETOHU) Urinalysis [id number] 12:59:00 Test Item Value Reference Range Interpretation Comments Color (test code = Yellow Yellow,Straw,Pl N COLOR) yellow Clarity (test code = Clear Clear N CLAR) Specific [place] (test 1.027 1.001-1.035 N code = SPGR) pH (test code = PH) 8.0 5.0-9.0 N Ketone (test code = 15 mg/dL Negative A KET) Glucose (test code = Negative mg/dL Negative N GLUCUR) Protein (test code = Negative mg/dL Negative N PROT) Bilirubin (test code = See IctoTest mg/dL Negative A BILI) Occult Blood (test code Negative Negative N = UDOB) Urobilinogen (test code 8.0 mg/dL 0.2-1.0 H = UROB) Nitrite (test code = Negative Negative N NIT) Leuk Esterase (test Negative Negative N code = LEUK) Ictotest (test code = Confirmed Negative Negative,Confirmed N ICTOTEST) Negative Micros Exam (test code Indicated = MEXAM) Epithelial Cells (test 0-2 /LPF 0-30 A code = EPI) WBC, Urine (test code = 0-5 /HPF 0-5 N UWBC) RBC, Urine (test code = 0-3 /HPF 0-5 A URBC) Bacteria (test code = Few /HPF BACT) CBC with [id number] 12:42:00 Test Item Value Reference Range Interpretation Comments WBC (test code = WBC) 8.0 K/cumm 4.4-10.5 N RBC (test code = RBC) 4.35 M/cumm 4.10-5.70 N Hemoglobin (test code = HGB) 14.6 gm/dL 13.4-17.4 N Hematocrit (test code = HCT) 42.5 % 38.7-52.0 N MCV (test code = MCV) 97.7 fL 80-100 N MCH (test code = MCH) 33.4 pg 27.0-32.5 H MCHC (test code = MCHC) 34.3 g/dL 32.0-37.5 N RDW (test code = RDW) 12.5 % 11.5-14.5 N Platelet Count (test code = 277 K/cumm 140-440 N PLTCT) MPV (test code = MPV) 6.5 fL Diff Method (test code = DIFFM) Auto Neutrophil (test code = NEUT) 61.9 % 36-70 N Lymphocyte (test code = LYMPH) 28.7 % 12-44 N Monocyte (test code = MONO) 8.0 % 0-11 N Eosinophil (test code = EOS) 1.2 % 0-7 N Basophil (test code = BASO) 0.3 % 0-2 N Neutro Abs (test code = ANEUT) 5.0 K/cumm 1.6-7.4 N Lymph Abs (test code = ALYMPH) 2.3 K/cumm 0.5-4.6 N [place] Abs (test code = AMONO) 0.6 K/cumm 0.0-1.2 N Eos Abs (test code = AEOS) 0.09 K/cumm 0.00-0.74 N Baso Abs (test code = ABASO) 0.0 K/cumm 0.00-0.21 N Hepatic Function [id number] 18:55:00 Test Item Value Reference Range Interpretation Comments Prot Total (test code = TP) 6.0 g/dL 6.4-8.3 L Albumin (test code = ALB) 3.9 g/dL 3.5-5.2 N A/G Ratio (test code = AGRATIO) 1.9 Ratio Globulin (test code = GLOB) 2.1 2.9-3.1 L Bili Total (test code = TBIL) 0.5 mg/dL 0.1-0.9 N Bili Direct (test code = DBIL) <0.2 mg/dL 0.0-0.3 N Bili Indirect (test code = IBIL) 0.4 Alk Phos (test code = APHOS) 59 U/L 40-129 N AST (test code = AST) 56 U/L 1-40 H ALT (test code = ALT) 47 U/L 1-41 H HIV [id number] 12:45:00 Test Item Value Reference Range Interpretation Comments HIV 1/2 Antibody Non-Reactive Non-Reactive N HIV1/2 Anti body screen (test code = result indicate s the HIV1/2AB) absence of HIV1 and [id number].H owever, A Non-Reactive screen result does not rule out exposure orinfection. I f an acute infection is suspected, HIV RNA Quantitative is recommended. P24 Antigen (test Non-Reactive Non-Reactive N P24 Ag scr een result code = P24) indicates the a bsence of P24 antigen, which is anindicator of HIV-1 acute infection.Howev er, A Non-Reactive sc reen does not rule o ut exposure or infection.If ac [place] HIV-1 is suspec isai, HIV RNA Quantit ative is recommended. RPR, [id number] 21:30:00 Test Item Value Reference Range Interpretation Comments RPR (test code = RPR) Non-Reactive Non-Reactive N Thyroid Stimulating Hormone (TSH)[id number] 09:55:00 Test Item Value Reference Range Interpretation Comments TSH (test code = TSH) 0.94 mIU/mL 0.270-4.200 N Lipid [id number] 09:53:00 Test Item Value Reference Range Interpretation Comments Cholesterol (test 124 mg/dL 0-200 N code = CHOL) Triglycerides (test 61 mg/dL 9-200 N code = TRIG) HDL (test code = 47 mg/dL 40-60 N HDL) Chol/HDL (test code 2.6 Ratio 0.0-5.0 N = CHOLPHDL) LDL, Calculated 65 0-130 N (NOTE)RISK O F HEART (test code = LDLC) DISEASEPu blished by [place] Heart AssociationAnal yte Optim al Boderline Increased RiskC HOL <200 200-239 >240TRI G <150 150-199 >200HDL Male: >60 <40HDL Female: >60 <50 LDL < 100 130-15 9 >160 LDL NEAR OPTIMAL IS 100- 129 VLDL (test code = 12 mg/dL 5-40 N VLDL) LDL/HDL (test code = 1 LDLPHDL) Urinalysis [id number] 15:09:00 Test Item Value Reference Range Interpretation Comments Color (test code = Yellow Yellow,Straw,Pl N COLOR) yellow Clarity (test code = Clear Clear N CLAR) Specific [place] (test 1.028 1.001-1.035 N code = SPGR) pH (test code = PH) 5.0 5.0-9.0 N Ketone (test code = 150 mg/dL Negative A KET) Glucose (test code = Negative mg/dL Negative N GLUCUR) Protein (test code = 25 mg/dL Negative A PROT) Bilirubin (test code = Negative mg/dL Negative N BILI) Occult Blood (test code Small Negative A = UDOB) Urobilinogen (test code 0.2 mg/dL 0.2-1.0 N = UROB) Nitrite (test code = Negative Negative N NIT) Leuk Esterase (test Negative Negative N code = LEUK) Micros Exam (test code Indicated = MEXAM) Epithelial Cells (test 0-2 /LPF 0-30 A code = EPI) WBC, Urine (test code = 0-5 /HPF 0-5 N UWBC) RBC, Urine (test code = 0-3 /HPF 0-5 A URBC) Bacteria (test code = Few /HPF BACT) Casts (test code = 0-1 Granular /HPF CASTS) Comprehensive Metabolic [id number] 14:24:00 Test Item Value Reference Range Interpretation Comments Sodium (test code = 138 mmol/L 135-145 N NA) Potassium (test 3.6 mmol/L 3.5-5.1 N code = K) Chloride (test code 99 mmol/L 98-105 N = CL) Carbon Dioxide 25 mmol/L 22-29 N (test code = CO2) Glucose (test code 116 mg/dL 70-115 H = GLU) Blood Urea Nitrogen 30 mg/dL 6-20 H (test code = BUN) Creatinine (test 1.0 mg/dL 0.7-1.2 N code = CREAT) Calcium (test code 9.0 mg/dL 8.3-10.5 N = CA) Prot Total (test 6.8 g/dL 6.4-8.3 N code = TP) Albumin (test code 4.5 g/dL 3.5-5.2 N = ALB) A/G Ratio (test 2.0 Ratio code = AGRATIO) Globulin (test code 2.3 2.9-3.1 L = GLOB) Bili Total (test 2.0 mg/dL 0.1-0.9 H code = TBIL) Alk Phos (test code 69 U/L 40-129 N = APHOS) AST (test code = 123 U/L 1-40 H AST) ALT (test code = 57 U/L 1-41 H ALT) BUN/Creatinine 30.0 Ratio (test code = BCRATIO) Anion Gap (test 14 mmol/L 7-16 N code = AGAP) Estimated GFR (test >60 eGFR (es timated code = GFR) mL/min/1.73m2 Glomerular Darren tration Rate) is an est imated value,calculate d from the patient's s viola creatinine usin g the MDRD equation.I t is NOT the patient 's actual GFR. The eGFR provides a more clinicallyusefu l measure of kidn ey disease than se rum creatinine alone.This calculation anju es sex and race into account, if the informationis provided. If th e race is not provided , and the patient isAfrican-Ameri can, multiply by 1.2 12. If sex is not prov ided, and thepatient is female, multipl y by 0.742. Results for patients <18 ye ars ofage have not been validated by th e MDRD study and shoul d be interpretedwith caution.eGFR Re sult Interpretation: eGFR > or = 60 is in t he Normal RangeeGF R < 60 may mean kidney diseaseeGFR < 1 5 may mean kidney failureRange s recommended by the National Kidney Foundation,http ://nkd ep.nih.gov [id number] 14:20:00 Test Item Value Reference Range Interpretation Comments Amphetamine (test POSITIVE Negative A For diagno stic code = AMPH) purposes only, positive result s should always b e assessedin conjunctionwith the patient's medic al history,clinica l examination and otherfindings.T o fulfill legal requirements, a more specific altern ate chemical method must be used inorder to obtain a Confirmed giovanna lytical result. GC/MS i s the preferred confi rmatory method. Barbiturates (test Negative Negative N code = EARL) Benzodiazepine (test Negative Negative N code = MILAGROS) Cocaine (test code = Negative Negative N COCA) Methadone (test code Negative Negative N = MTHD) Opiates (test code = Negative Negative N OPIA) PCP (test code = PCP) Negative Negative N Propoxyphene (test Negative Negative N code = PROPOX) THC (test code = THC) Negative Negative N Alcohol, Urine (test <0.01 g/dL 0.00-0.01 N code = ETOHU) CBC with [id number] 14:08:00 Test Item Value Reference Range Interpretation Comments WBC (test code = WBC) 8.5 K/cumm 4.4-10.5 N RBC (test code = RBC) 4.20 M/cumm 4.10-5.70 N Hemoglobin (test code = HGB) 13.5 gm/dL 13.4-17.4 N Hematocrit (test code = HCT) 36.5 % 38.7-52.0 L MCV (test code = MCV) 86.8 fL 80-100 N MCH (test code = MCH) 32.1 pg 27.0-32.5 N MCHC (test code = MCHC) 37.0 g/dL 32.0-37.5 N RDW (test code = RDW) 12.4 % 11.5-14.5 N Platelet Count (test code = 229 K/cumm 140-440 N PLTCT) MPV (test code = MPV) 9.4 fL Diff Method (test code = DIFFM) Auto Neutrophil (test code = NEUT) 62.8 % 36-70 N Lymphocyte (test code = LYMPH) 25.5 % 12-44 N Monocyte (test code = MONO) 10.7 % 0-11 N Eosinophil (test code = EOS) 0.7 % 0-7 N Basophil (test code = BASO) 0.3 % 0-2 N Neutro Abs (test code = ANEUT) 5.4 K/cumm 1.6-7.4 N Lymph Abs (test code = ALYMPH) 2.2 K/cumm 0.5-4.6 N [place] Abs (test code = AMONO) 0.9 K/cumm 0.0-1.2 N Eos Abs (test code = AEOS) 0.06 K/cumm 0.00-0.74 N Baso Abs (test code = ABASO) 0.0 K/cumm 0.00-0.21 N
[2020-06-30 12:59] LABS: Absolute Lymphocytes (CBC) 1.7 K/uL (0.7-4.9); Basophils % 0.3 % (0-1.3); Hematocrit 44.1 % (39.6-49.0); Lymphocytes % 34.4 % (15.3-44.8); MPV 8.3 fL (7.6-11.3); RBC Red Blood Cell Count 4.61 M/uL (4.33-5.43)
--- NOTE | 2020-06-30 13:08 | RAD REPORT ---
EXAM DESCRIPTION: Lyric Single View06/30/2020 12:54 pm CLINICAL HISTORY: Chest pain COMPARISON: 1999 and FINDINGS: The lungs appear clear of acute infiltrate. The heart is normal size IMPRESSION: No acute abnormalities displayed
[2020-06-30 13:13] LABS: Protime INR 0.99
[2020-06-30] MEDS ORDERED: ASPIRIN 81 MG CHEWABLE TABLET ONE (13:19)
[2020-06-30 13:25] LABS: ALT/SGPT 63 U/L (12-78); AST/SGOT 35 U/L (15-37); Albumin 4.2 g/dL (3.4-5.0); Alkaline Phosphatase 105 U/L (45-117); BUN Blood Urea Nitrogen 11 mg/dL (7-18); Bicarbonate 25 mmol/L (21-32); Bilirubin Direct 0.4 mg/dL (0-0.2); Bilirubin Total 1.1 mg/dL (0.2-1.0); Glucose Level 88 mg/dL (74-106); Lipase 99 U/L (73-393); Magnesium 2.5 mg/dL (1.8-2.4); NT PRO-BNP 9 pg/mL (<125); Potassium 3.2 mmol/L (3.5-5.1); Protein, Total 7.7 g/dL (6.4-8.2); Sodium Level 138 mmol/L (136-145); Troponin (Emerg Dept Use Only) < 0.02 ng/mL (0.0-0.045)
--- NOTE | 2020-06-30 13:46 | ER ---
Nurse's Notes [facility] Name: Marshall Cook Age: 34 yrs Sex: Male : 1985 Arrival Date: 06/30/2020 Time: 12:25 Bed 13 Private MD: Diagnosis: Chest pain, unspecified;Abuse of non-psychoactive substances;Adverse effect of amphetamines;Bipolar disorder;Hypokalemia;Essential (primary) hypertension Presentation: 06/30 12:29 Chief complaint: EMS states: "pt is reporting chest pain that started about 30 min ago jd3 with some lower back pain. pt also admits to using meth about 6 hours ago and he thinks might be related to that.". Coronavirus screen: At this time, the client does not indicate any symptoms associated with coronavirus-19. Ebola Screen: Patient negative for fever greater than or equal to 101.5 degrees Fahrenheit, and additional compatible Ebola Virus Disease symptoms. Initial Sepsis Screen: Does the patient meet any 2 criteria? No. Patient's initial sepsis screen is negative. Does the patient have a suspected source of infection? No. Patient's initial sepsis screen is negative. Risk Assessment: Do you want to hurt yourself or someone else? Patient reports no desire to harm self or others. Onset of symptoms was June 30, 2020. 12:29 Method Of Arrival: EMS: [facility] jd3 12:29 Acuity: NICOLE 3 jd3 Historical: - Allergies: 12:33 ketorolac tromethamine; jd3 12:33 Naproxen; jd3 12:33 Tramadol HCl; jd3 - Home Meds: 12:33 None [Active]; jd3 - PMHx: 12:33 Anxiety; Schizophrenia; Bipolar disorder; jd3 - PSHx: 12:33 None; jd3 - Immunization history:: Adult Immunizations up to date. - Social history:: Smoking status: Patient reports the use of cigarette tobacco products, denies chronic smoking, but will smoke occasionally, Patient uses street drugs, Methamphetamine (Meth). Screenin:34 Abuse screen: Denies threats or abuse. Nutritional screening: No deficits noted. jd3 Tuberculosis screening: No symptoms or risk factors identified. Fall Risk Ambulatory Aid- None/Bed Rest/Nurse Assist (0 pts). Gait- Normal/Bed Rest/Wheelchair (0 pts) Mental Status- Oriented to own ability (0 pts). Total Shi Fall Scale indicates No Risk (0-24 pts). Assessment: 12:33 General: Appears in no apparent distress. uncomfortable, Behavior is calm, cooperative, jd3 appropriate for age, anxious. Pain: Denies pain. Neuro: Level of Consciousness is awake, alert, obeys commands, Oriented to person, place, time, situation. Cardiovascular: Reports report chest pain prior to arrival. Capillary refill < 3 seconds Patient's skin is warm and dry. Respiratory: Airway is patent Respiratory effort is even, unlabored, Respiratory pattern is regular, symmetrical, Denies cough, shortness of breath. GI: No signs and/or symptoms were reported involving the gastrointestinal system. : No signs and/or symptoms were reported regarding the genitourinary system. EENT: No signs and/or symptoms were reported regarding the EENT system. Derm: Skin is intact, Skin is dry, Skin is normal, Skin temperature is warm. Musculoskeletal: Circulation, motion, and sensation intact. Range of motion: intact in all extremities. 12:53 Reassessment: pt refused IV, but agreed to blood draw. jd3 13:35 Reassessment: Patient appears in no apparent distress at this time. No changes from jd3 previously documented assessment. Patient and/or family updated on plan of care and expected duration. Pain level reassessed. Patient is alert, oriented x 3, equal unlabored respirations, skin warm/dry/pink. 13:56 Reassessment: Patient appears in no apparent distress at this time. Patient and/or [facility] family updated on plan of care and expected duration. Pain level reassessed. Patient is alert, oriented x 3, equal unlabored respirations, skin warm/dry/pink. report understanding of discharge instructions. even and steady gait upon discharge. Vital Signs: 12:31 BP 134 / 97; Pulse 99; Resp 19 S; Temp 98.3(TE); Pulse Ox 99% on R/A; Weight 77.11 kg jd3 (R); Height 5 ft. 10 in. (177.80 cm) (R); Pain 0/10; 13:35 BP 151 / 107; Pulse 90; Resp 17 S; Pulse Ox 99% on R/A; jd3 13:56 BP 135 / 99 LA; Pulse 91; Resp 17 S; Pulse Ox 99% on R/A; jd3 13:56 BP 147 / 100 RA; jd3 12:31 Body Mass Index 24.39 (77.11 kg, 177.80 cm) jd3 ED Course: 12:25 Patient arrived in ED. em1 12:28 Sean Cagle MD is Attending Physician. carl 12:29 Remi Miller, RN is Primary Nurse. jd3 12:31 Triage completed. jd3 12:32 Arm band placed on. jd3 12:35 Patient has correct armband on for positive identification. Bed in low position. Call j light in reach. Side rails up X 1. Adult w/ patient. athletic monitor on. Pulse ox on. NIBP on. 12:54 XRAY Chest (1 view) In Process Unspecified. EDMS 13:09 Initial lab(s) drawn, by me, sent to lab. jd3 13:45 Cj Anderson MD is Referral Physician. [facility] 13:57 No provider procedures requiring assistance completed. Patient did not have IV access jd3 during this emergency room visit. Administered Medications: 12:52 Not Given (Patient Refused): NS 0.9% 1000 ml IV at 125 ml/hr continuous jd3 12:52 Not Given (Patient Refused): NS 0.9% 1000 ml IV at 1 bolus Per protocol; 1000 mL bolus jd3 13:03 Drug: Aspirin 162 mg Route: PO; jd3 13:58 Follow up: Response: No adverse reaction jd3 Outcome: 13:45 Discharge ordered by . [facility] 13:57 Discharged to home ambulatory. jd3 13:57 Condition: stable 13:57 Discharge instructions given to patient, Instructed on discharge instructions, follow up and referral plans. Demonstrated understanding of instructions, follow-up care. 13:58 Patient left the ED. jd3 Signatures: Dispatcher [employer] EDMO Sean Cagle MD MD cha Martinez, Eric em1 Remi Miller, RN RN jd3
--- NOTE | 2020-06-30 13:46 | EDPHYS ---
Physician Documentation [facility] Name: Marshall Cook Age: 34 yrs Sex: Male : 1985 Arrival Date: 06/30/2020 Time: 12:25 Bed 13 Private MD: ED Physician Sean Cagle HPI: 06/30 12:56 This 34 yrs old Male presents to ER via EMS with complaints of chest pain, carl low back pain, sp meth use. 12:56 The patient or guardian reports chest pain that is located primarily in the substernal carl area, epigastric area. The patient presents with pain that is acute, with no known mechanism of injury. The symptoms are located in the low back. Onset: The symptoms/episode began/occurred just prior to arrival. The pain does not radiate. Associated signs and symptoms: The patient has no apparent associated signs or symptoms. The problem was sustained from unknown cause, sp meth use. Modifying factors: The patient symptoms are alleviated by nothing, the patient symptoms are aggravated by nothing. Historical: - Allergies: 12:33 ketorolac tromethamine; jd3 12:33 Naproxen; jd3 12:33 Tramadol HCl; jd3 - Home Meds: 12:33 None [Active]; jd3 - PMHx: 12:33 Anxiety; Schizophrenia; Bipolar disorder; jd3 - PSHx: 12:33 None; jd3 - Immunization history:: Adult Immunizations up to date. - Social history:: Smoking status: Patient reports the use of cigarette tobacco products, denies chronic smoking, but will smoke occasionally, Patient uses street drugs, Methamphetamine (Meth). ROS: 12:58 Constitutional: Negative for fever, chills, and weight loss, Eyes: Negative for injury, carl pain, redness, and discharge, ENT: Negative for injury, pain, and discharge, Neck: Negative for injury, pain, and swelling, Respiratory: Negative for shortness of breath, cough, wheezing, and pleuritic chest pain, Abdomen/GI: Negative for abdominal pain, nausea, vomiting, diarrhea, and constipation, : Negative for injury, bleeding, discharge, and swelling, MS/Extremity: Negative for injury and deformity, Skin: Negative for injury, rash, and discoloration, Neuro: Negative for headache, weakness, numbness, tingling, and seizure, Psych: Negative for depression, anxiety, suicide ideation, homicidal ideation, and hallucinations, Allergy/Immunology: Negative for hives, rash, and allergies, Endocrine: Negative for neck swelling, polydipsia, polyuria, polyphagia, and marked weight changes, Hematologic/Lymphatic: Negative for swollen nodes, abnormal bleeding, and unusual bruising. 12:58 Cardiovascular: Positive for chest pain. 12:58 Back: Positive for of the lumbar area. Exam: 12:58 Constitutional: This is a well developed, well nourished patient who is awake, alert, carl and in no acute distress. Head/Face: Normocephalic, atraumatic. Eyes: Pupils equal round and reactive to light, extra-ocular motions intact. Lids and lashes normal. Conjunctiva and sclera are non-icteric and not injected. Cornea within normal limits. Periorbital areas with no swelling, redness, or edema. ENT: Nares patent. No nasal discharge, no septal abnormalities noted. Tympanic membranes are normal and external auditory canals are clear. Oropharynx with no redness, swelling, or masses, exudates, or evidence of obstruction, uvula midline. Mucous membranes moist. Neck: Trachea midline, no thyromegaly or masses palpated, and no cervical lymphadenopathy. Supple, full range of motion without nuchal rigidity, or vertebral point tenderness. No Meningismus. Chest/axilla: Normal chest wall appearance and motion. Nontender with no deformity. No lesions are appreciated. Cardiovascular: Regular rate and rhythm with a normal S1 and S2. No gallops, murmurs, or rubs. Normal PMI, no JVD. No pulse deficits. Respiratory: Lungs have equal breath sounds bilaterally, clear to auscultation and percussion. No rales, rhonchi or wheezes noted. No increased work of breathing, no retractions or nasal flaring. Abdomen/GI: Soft, non-tender, with normal bowel sounds. No distension or tympany. No guarding or rebound. No evidence of tenderness throughout. Back: No spinal tenderness. No costovertebral tenderness. Full range of motion. Skin: Warm, dry with normal turgor. Normal color with no rashes, no lesions, and no evidence of cellulitis. MS/ Extremity: Pulses equal, no cyanosis. Neurovascular intact. Full, normal range of motion. Neuro: Awake and alert, GCS 15, oriented to person, place, time, and situation. Cranial nerves II-XII grossly intact. Motor strength 5/5 in all extremities. Sensory grossly intact. Cerebellar exam normal. Normal gait. Psych: Awake, alert, with orientation to person, place and time. Behavior, mood, and affect are within normal limits. 12:58 Musculoskeletal/extremity: ROM: no acute changes, intact in all extremities, Circulation is intact in all extremities. Sensation intact. Compartment Syndrome exam of affected extremity: is normal. Joints: All joints appear normal with full range of motion. Weight bearing: able to fully bear weight, able to run, DVT Exam: No signs of deep vein thrombosis. no pain, no swelling, no tenderness, negative Homans' sign noted on exam, no appreciated bluish discoloration, no erythema, no increased warmth. 13:06 ECG was reviewed by the Attending Physician. [facility] Vital Signs: 12:31 BP 134 / 97; Pulse 99; Resp 19 S; Temp 98.3(TE); Pulse Ox 99% on R/A; Weight 77.11 kg jd3 (R); Height 5 ft. 10 in. (177.80 cm) (R); Pain 0/10; 13:35 BP 151 / 107; Pulse 90; Resp 17 S; Pulse Ox 99% on R/A; jd3 13:56 BP 135 / 99 LA; Pulse 91; Resp 17 S; Pulse Ox 99% on R/A; jd3 13:56 BP 147 / 100 RA; jd3 12:31 Body Mass Index 24.39 (77.11 kg, 177.80 cm) jd3 MDM: 12:28 Patient medically screened. [facility] 13:00 Differential diagnosis: abnormal EKG, anxiety, chest wall pain, congestive heart carl failure cholecystitis, chronic back pain, gastroesophageal reflux disease (GERD), pancreatitis, pneumothorax, Hydronephrosis Renal Infarction Ureterolithiasis unstable angina. HEART Score: History: Slightly Suspicious (0), ECG: Normal (0), Age: < or = 45 years (0), Risk Factors: No Risk Factors Known (0), Troponin: < or = 1 x Normal Limit (0). The patient's deep vein thrombosis risk score was calculated as follows: Total Score: 0. This patient was found to be at low risk for a deep vein thrombosis by using the Well's assessment criteria. The patient's pulmonary embolism risk score was calculated as follows: Total Score: 0-2 points. This patient was found to be at low risk for a pulmonary embolism by using the Well's assessment criteria. ARVIN Risk Score: TOTAL SCORE = 0. Data reviewed: vital signs, nurses notes, lab test result(s), EKG, radiologic studies, plain films. Data interpreted: radio intelligence operator: rate is 99 beats/min, rhythm is regular, Pulse oximetry: on room air is 99 %. Test interpretation: by ED physician or midlevel provider: ECG, plain radiologic studies. Counseling: I had a detailed discussion with the patient and/or guardian regarding: the historical points, exam findings, and any diagnostic results supporting the discharge/admit diagnosis, the presence of at least one elevated blood pressure reading (>120/80) during this emergency department visit, lab results, radiology results, the need for outpatient follow up, for definitive care, a aqua ammonia operator, a family practitioner, the need for further work-up and treatment in the hospital. 06/30 12:30 Order name: Basic Metabolic Panel; Complete Time: 13:42 06/30 12:30 Order name: CBC with Diff; Complete Time: 13:42 06/30 12:30 Order name: LFT's; Complete Time: 13:42 06/30 12:30 Order name: Magnesium; Complete Time: 13:42 06/30 12:30 Order name: NT PRO-BNP; Complete Time: 13:42 06/30 12:30 Order name: Troponin (emerg Dept Use Only); Complete Time: 13:42 06/30 12:30 Order name: XRAY Chest (1 view); Complete Time: 13:42 06/30 12:30 Order name: Lipase; Complete Time: 13:42 06/30 12:30 Order name: Acetaminophen; Complete Time: 13:42 06/30 12:30 Order name: ETOH Level; Complete Time: 13:42 06/30 12:30 Order name: PT-INR; Complete Time: 13:42 06/30 12:30 Order name: Ptt, Activated; Complete Time: 13:42 06/30 12:30 Order name: Salicylate; Complete Time: 13:42 06/30 12:30 Order name: EKG; Complete Time: 12:31 15 12:30 Order name: Cardiac monitoring; Complete Time: 12:53 [facility] 06/30 12:30 Order name: EKG - Nurse/Tech; Complete Time: : [facility] 06/30 12:30 Order name: Labs collected and sent; Complete Time: : [facility] 06/30 12:30 Order name: O2 Per Protocol; Complete Time: 12: [facility] 06/30 12:30 Order name: O2 Sat Monitoring; Complete Time: : [facility] EC:06 Rate is 97 beats/min. Rhythm is regular. QRS [place] is Normal. MD interval is normal. QRS carl interval is normal. QT interval is normal. No Q waves. T waves are Normal. No ST changes noted. Clinical impression: Normal ECG and No evidence of ischemia. Interpreted by me. Reviewed by me. Administered Medications: 12:52 Not Given (Patient Refused): NS 0.9% 1000 ml IV at 125 ml/hr continuous jd3 12:52 Not Given (Patient Refused): NS 0.9% 1000 ml IV at 1 bolus Per protocol; 1000 mL bolus jd3 13:03 Drug: Aspirin 162 mg Route: PO; jd3 13:58 Follow up: Response: No adverse reaction jd3 Disposition: 06/30/20 13:45 Discharged to Home. Impression: Chest pain, unspecified, Abuse of non-psychoactive substances, Adverse effect of amphetamines, Bipolar disorder, Hypokalemia, Essential (primary) hypertension. - Condition is Stable. - Discharge Instructions: Nonspecific Chest Pain, Potassium Content of Foods, Hypertension, Bipolar Disorder, Substance Use Disorder, Chest Wall Pain, [id number], Nonspecific Chest Pain, Unke-cf-[id number], Hypertension, [id number], Aspirin and Your Heart, Hypokalemia. - Medication Reconciliation Form, Thank You Letter, Antibiotic Education, Prescription Opioid Use form. - Follow up: Private Physician; When: 2 - 3 days; Reason: Recheck today's complaints, Continuance of care, Re-evaluation by your physician. Follow up: Cj Anderson; When: 2 - 3 days; Reason: Recheck today's complaints, Re-evaluation by your physician. - Problem is new. - Symptoms have improved. Signatures: Dispatcher [employer] EDMS Gurjit, Sean, MD MD carl Miller, Remi, RN RN jd3 Corrections: (The following items were deleted from the chart) 12:52 12:30 Suicide Screening ([place]) ordered. carl [email or web address] 12:53 12:30 IV Saline Lock ordered. carl thorpe 13:58 13:45 06/30/2020 13:45 Discharged to Home. Impression: Chest pain, unspecified; Abuse jd3 of non-psychoactive substances; Adverse effect of amphetamines; Bipolar disorder; Hypokalemia; Essential (primary) hypertension. Condition is Stable. Discharge Instructions: Nonspecific Chest Pain, Bipolar Disorder, Substance Use Disorder, Chest Wall Pain, [id number], Nonspecific Chest Pain, [id number], Aspirin and Your Heart. Forms are Medication Reconciliation Form, Thank You Letter, Antibiotic Education, Prescription Opioid Use. Follow up: Private Physician; When: 2 - 3 days; Reason: Recheck today's complaints, Continuance of care, Re-evaluation by your physician. Follow up: Cj Anderson; When: 2 - 3 days; Reason: Recheck today's complaints, Re-evaluation by your physician. Problem is new. Symptoms have improved. carl
[2020-06-30 14:17] VITALS: TEMP 98.3; O2SAT 99
[2020-06-30 14:19] VITALS: BP 147/100
== END 2020-06-30 13:58 | disposition home or self-care (01) ==
LOC: ER 12:23
DX: F55.8 Abuse of other non-psychoactive substances (principal); T43.625A Adverse effect of amphetamines, initial encounter; E87.6 Hypokalemia; F31.9 Bipolar disorder, unspecified; I10 Essential (primary) hypertension; F17.210 Nicotine dependence, cigarettes, uncomplicated; Z88.5 Allergy status to narcotic agent; Z88.6 Allergy status to analgesic agent; Z88.8 Allergy status to other drugs, medicaments and biological substances
CPT/HCPCS: 36415; 71045; 80048; 80076; 80320; 80329; 83690; 83735; 83880; 84484; 85025; 85610; 85730; 93005; 99284

== ENCOUNTER 2020-07-10 16:15 | Emergency (ER) | payer OTHER ==
--- OUTSIDE RECORDS SUMMARY | 2020-07-10 16:19 | XMS REPORT | Continuity of Care Document ---
:1985 Author Organization [facility] t Address [address] [place] [address] Care Team Providers Name Role Phone UNKNOWN [...] [facility] 00:00: d 00 [facility] No Known DA Active U 2020-0 [facility] [place] 00:[facility]: [facility] No Known DA Active U 2020-0 [facility] [place] 00:[facility]: [address] tramadol DA Active [place] 2016-0 [facility] 1[facility]04 [place] 00:[facility]: d [facility] Medications This patient has no known medications. Procedures This patient has no known procedures. Encounters Start End Encounter Admission Attending Care Care Encounter Source Date/Time Date/Time Type Type Clinicians Facility Department ID 2018-11-04 2018-11-05 Emergency DEMARCO Bowen [id number] 20:38:48 05:13:00 [facility] [place] [id number] [place] [id number] [place] [id number] 2017-03-22 2017-03-22 Emergency E SAMANTHA, [facility] [id number] 11:46:00 11:46:00 [facility] 2017-03-16 2017-03-20 [facility] [id number] 20:46:00 13:41:00 [facility] Results Test Description Test Time Test Comments Results Result Comments Source Coronavirus 2018 nCoV Bedside 2020-05-17 08:52:00 Test Item Value Reference Range Interpretation Comme nts Coronavirus 2019 nCoV Bedside Negative NEGATIVE This test has been authorized by (test code = [id number]) F DA under an EUA for use byauthorized la [...] detection and/o r diagnosis of COVID-19 under Hsabqsx697(b)(1) of the Act, 21 U.S .C. 360bbb-3(b)(1), unless theauthorizatio n is terminated or revoked sooner. DRUGS OF ABUSE [id number] 03:16:00 Test Item Value Reference Range Interpretation [...] poses (e.g employment testing). DRUGS OF ABUSE [id number] 02:47:00 Test Item Value Reference Range Interpretation [...] (test code = PHENCU) DRUGS OF ABUSE [id number] 02:38:00 Test Item Value Reference Range Interpretation [...] NEGATIVE (test code = PHENCU) BASIC METABOLIC [id number] 02:34:00 Test Item Value Reference Range Interpretation [...] 9.7 mg/dL 8.4-10.2 N CA) LIVER FUNCTION [id number] 02:34:00 Test Item Value Reference Range Interpretation [...] U/L 38-126 N (test code = ALKP) [id number] 02:34:00 Test Item Value Reference Range Interpretation Comments ACETAMINOPHEN (test code = ACET) <10 ug/mL 10-30 L [id number] 02:34:00 Test Item Value Reference Range Interpretation Comments SALICYLATE (test code < 1.0 mg/dL Negati ve <2.0 = SMITH) mg/dLTherapeuti c Range <20 mg/dL [id number] 02:34:00 Test Item Value Reference Range Interpretation Comments ALCOHOL (test code = < 10 mg/dL <10 ALC) ~~~~~~~~~~~~~~~ ~~~~~~~ ~~~~~~~~~~~~~~~ ~~~~~~~ ~~~~~~ RESU LTS ARE TO BE USED FOR MEDICAL PURPOSES ONLY.F OR LEGAL PURPOSES THE SPECIMEN MUST B E COLLECTED BY A CHAINOF CUSTODY. LEGAL TESTING IS NOT PERFORME D BY THIS FACILITY. ~~~~~~~~~~~~~~~ ~~~~~~~ ~~~~~~~~~~~~~~~ ~~~~~~~ ~~~~~~ URINALYSIS [id number] 02:27:00 Test Item Value Reference Range Interpretation [...] this result as normal/abnormal . CBC W/AUTO [id number] 02:18:00 Test Item Value Reference Range Interpretation [...] x10 3/uL 0.0-0.1 N DRUGS OF ABUSE [id number] 06:47:00 Test Item Value Reference Range Interpretation [...] non-medical pur poses (e.g employment testing). URINALYSIS [id number] 06:29:00 Test Item Value Reference Range Interpretation [...] this result as normal/abnormal . BASIC METABOLIC [id number] 03:28:00 Test Item Value Reference Range Interpretation [...] 9.0 mg/dL 8.4-10.2 N CA) LIVER FUNCTION [id number] 03:28:00 Test Item Value Reference Range Interpretation [...] U/L 38-126 N (test code = ALKP) [id number] 03:28:00 Test Item Value Reference Range Interpretation Comments ACETAMINOPHEN (test code = ACET) <10 ug/mL 10-30 L [id number] 03:28:00 Test Item Value Reference Range Interpretation Comments SALICYLATE (test code < 1.0 mg/dL Negati ve <2.0 = SMITH) mg/dLTherapeuti c Range <20 mg/dL [id number] 03:28:00 Test Item Value Reference Range Interpretation Comments ALCOHOL (test code = < 10 mg/dL <10 ALC) ~~~~~~~~~~~~~~~ ~~~~~~~ ~~~~~~~~~~~~~~~ ~~~~~~~ ~~~~~~ RESU LTS ARE TO BE USED FOR MEDICAL PURPOSES ONLY.F OR LEGAL PURPOSES THE SPECIMEN MUST B E COLLECTED BY A CHAINOF CUSTODY. LEGAL TESTING IS NOT PERFORME D BY THIS FACILITY. ~~~~~~~~~~~~~~~ ~~~~~~~ ~~~~~~~~~~~~~~~ ~~~~~~~ ~~~~~~ CBC W/AUTO [id number] 00:30:00 Test Item Value Reference Range Interpretation [...] 3/uL 0.0-0.1 N - CT C-SPINE W/O [id number] 23:37:00 Patient Name: ARLINE RAO Unit No: [id number] EXAMS: CPT CODE: [id number] CT C-SPINE W/O CONT [id number] Location: CT cervical spine, 08/29/19 TECHNIQUE: CT [...] seen IMPRESSION: No acute traumatic injury at 2337 Reported and signed by: Dinorah Stearns M.D. CC: Lan Cooper MD Dictated Date/Time: 08/29/2019 (2336) Technologist: Ara Steward CTDI: 16.41 DLP: 366.20 Trnscrpt: 08/29/2019 (907) [email or web address] TATUM Mcarthur NAME: ARLINE RAO [address] [place] [address] PHYS: Lan Munroe [place] [address] : 1985 AGE: 33 SEX: M LOC: B.ERS PHONE #: [phone] EXAM DATE: 08/29/2019 STATUS: REG ER FAX #: [phone] RAD #: D/C DT PAGE 1 Signed Report Patient Name: ARLINE RAO Unit No: [id number] EXAMS: CPT CODE: [id number] CT C-SPINE W/O CONT [id number] <Continued> Orig Print D/T: S: 08/29/2019 (7908) TATUM Mcarthur NAME: ARLINE RAO [address] [place] [address] PHYS: Lan Munroe MD [place] [address] : 1985 AGE: 33 SEX: M LOC: B.ERS PHONE #: [phone] EXAM DATE: 08/29/2019 STATUS: REG ER FAX #: [phone] RAD #: D/C DT PAGE 2 Signed Report- CT HEAD/BRAIN W/O [id number] 23:33:00 Patient Name: ARLINE RAO Unit No: [id number] EXAMS: CPT CODE: [id number] CT HEAD/BRAIN W/O CONT 62933 Location: CT head, 08/29/19 COMPARISON EXAMS: None [...] at 2333 Reported and signed by: Dinorah Stearns M.D. CC: Lan Cooper MD Dictated Date/Time: 08/29/2019 (2332) Technologist: Ara Steward CTDI: 45.96 DLP: 757.79 Trnscrpt: 08/29/2019 (2332) [email or web address] TATUM Mcarthur NAME: JALEN[address] PHYS: Lan Munroe MD [place] [address] : 1985 AGE: 33 SEX: M LOC: KarenERS PHONE #:[phone] EXAM DATE: 08/29/2019 STATUS: REG ER FAX #: [phone] RAD #: D/C DT PAGE 1 Signed Report Patient Name: ARLINE RAO Unit No: [id number] EXAMS: CPT CODE: [id number] CT HEAD/BRAIN W/O CONT [id number] <Continued> Orig Print D/T: S: 08/29/2019 (233) TATUM Mcarthur NAME: J[address]EN[address] PHYS: Lan Munroe [place] [address] : 1985 AGE: 33 SEX: M LOC: KarenERS PHONE #: [phone] EXAM DATE:08/29/2019 STATUS: REG ER FAX #: [phone] RAD #: D/C DT PAGE 2 Signed ReportCOMPREHENSIVE METABOLIC [id number] 23:28:00 Test Item Value Reference Range Interpretation [...] code = LIPINDEX) MG Index/DL CBC W/AUTO [id number] 23:07:00 Test Item Value Reference Range Interpretation [...] 0.00 K/mm3 0.00-0.05 N NRBC#) BASIC METABOLIC [id number] 14:23:00 Test Item Value Reference Range Interpretation [...] NORMAL code = LIPINDEX) Index/DL HEPATIC FUNCTION [id number] 14:23:00 Test Item Value Reference Range Interpretation [...] 68 Unit/L 45-117 N code = ALKP) [id number] 14:23:00 Test Item Value Reference Range Interpretation Comments ALCOHOL (test code = 3 MG/DL 0-10 N MEDICAL ALCOHOL RESULTS. ALC) SITE WAS PREPPE D WITH BETADINE. <10 MG/DL ARE CONSI DERED NEGATIVE. >400 MG/DL MAY BE FATAL.RESULTS F OR MEDICAL USE ONL Y. NOT TO BE USED FOR FOR ENSIC PURPOSES. BASIC METABOLIC [id number] 14:17:00 Test Item Value Reference Range Interpretation [...] 1 NORMAL = LIPINDEX) Index/DL HEPATIC FUNCTION [id number] 14:17:00 Test Item Value Reference Range Interpretation [...] TOTAL (test code Unit/L 45-117 = ALKP) [id number] 14:17:00 Test Item Value Reference Range Interpretation Comments ALCOHOL (test code = ALC) MG/DL 0-10 CBC W/O [id number] 14:04:00 Test Item Value Reference Range Interpretation [...] = 9.4 fL 7.6-10.4 N MPV) RPR [id number] 14:01:19 Test Item Value Reference Range Interpretation [...] = 12-17-2019 N Expiration Dt) Thyroid Stimulating [id number] 09:09:16 Test Item Value Reference Range Interpretation Comments TSH (test code = TSH) 0.418 mIU/mL 0.270-4.200 Lipid [id number] 08:59:32 Test Item Value Reference Range Interpretation Comments Cholesterol Total 131 mg/dL 0-200 RISK OF HE ART (test code = DISEASEPublishe d by Cholesterol Total) [employer] Giovanna lyte Optimal Borderl ine [...] LDL/HDL Ratio=L DL Calc/HDL Chol Thyroid Stimulating [id number] 10:03:42 Test Item Value Reference Range Interpretation Comments TSH (test code = TSH) 1.560 mIU/mL 0.270-4.200 Lipid [id number] 09:52:10 Test Item Value Reference Range Interpretation Comments Cholesterol Total 210 mg/dL 0-200 H RISK OF HE ART (test code = DISEASEPublishe d by Cholesterol Total) [employer] Giovanna lyte Optimal Borderl ine [...] is LDL/HDL Ratio=L DL Calc/HDL Chol RPR [id number] 11:37:43 Test Item Value Reference Range Interpretation Comments RPR Qual (test code = RPR Qual) Non-Reactive Non-Reactive Reactive Control (test code = Reactive Reactive Control) Weak Reactive Control (test Weak Reactive code = Weak Reactive Control) Non-Reactive Control (test code Non-Reactive = Non-Reactive Control) Lot # (test code = Lot #) [id number] N Expiration Dt (test code = 12-17-19 N Expiration Dt) Urinalysis [id number] 23:07:47 Test Item Value Reference Range Interpretation Comments UA WBC (test code = UA WBC) None Seen 0-5 UA RBC (test code = UA RBC) None Seen 0-5 UA Bacteria (test code = UA None Seen Bacteria) UA Squam Epithelial (test code = UA 0-5 Squam Epithelial) Comprehensive Metabolic [id number] 22:29:50 Test Item Value Reference Range Interpretation [...] A/G 1.7 ratio N Ratio) Comprehensive Metabolic [id number] 22:29:50 Test Item Value Reference Range Interpretation [...] the National Kidney Foundation, http://nkdep.ni h.gov Alcohol [id number] 22:29:50 Test Item Value Reference Range Interpretation Comments Ethanol Level (test 0.06 g/dL 0.00-0.01 H Intoxica isai 0.080 g/dL code = Ethanol or more Level) Ethanol Inst (test 58 N code = Ethanol Inst) Comprehensive Metabolic [id number] 22:29:50 Test Item Value Reference Range Interpretation [...] Foundation, http://nkdep.ni h.gov Complete Blood Count with [id number] 22:14:44 Test Item Value Reference Range Interpretation [...] code = IPF) 0 % N Automated [id number] 22:14:44 Test Item Value Reference Range Interpretation Comments Neutro Auto (test code = Neutro 72.2 % 36.0-70.0 H Auto) Lymph Auto (test code = Lymph Auto) 19.6 % 12.0-44.0 [place] Auto (test code = [place] Auto) 6.9 % 0.0-11.0 Eos, Auto (test code = Eos, Auto) 0.0 % 0.0-7.0 Basophil Auto (test code = Basophil 0.4 % 0.0-2.0 Auto) Neutro Absolute (test code = Neutro 6.1 x10 1.6-7.4 Absolute) Lymph Absolute (test code = Lymph 1.67 x10 .50-4.60 Absolute) [place] Absolute (test code = [place] .59 x10 .00-1.20 Absolute) Eos Absolute (test code = Eos 0.00 x10 0.00-0.74 Absolute) Baso Absolute (test code = Baso 0.03 x10 0.00-0.21 Absolute) IG [id number] 22:14:44 Test Item Value Reference Range Interpretation Comments IG (test code = IG) 0.9 % 0.0-5.0 IG Abs (test code = IG Abs) 0 x10 N Urine Drug [id number] 22:14:38 Test Item Value Reference Range Interpretation [...] if desired . Urinalysis with Microscopic if [id number] 21:53:48 Test Item Value Reference Range Interpretation [...] Ind?) rule GL_SJM_UA_MICRO _IN D Urine Drug [id number] 09:31:28 Test Item Value Reference Range Interpretation [...] matory test if desired . Comprehensive Metabolic [id number] 09:17:22 Test Item Value Reference Range Interpretation [...] A/G 2.1 ratio N Ratio) Comprehensive Metabolic [id number] 09:17:22 Test Item Value Reference Range Interpretation [...] not provided, and t he patient is -Ujlita n, multiply by 1.2 12. If sex [...] National Kidney Foundation, http://nkdep.ni h.gov Comprehensive Metabolic [id number] 09:17:22 Test Item Value Reference Range Interpretation [...] the National Kidney Foundation, http://nkdep.ni h.gov IG [id number] 09:08:10 Test Item Value Reference Range Interpretation Comments IG (test code = IG) 0.4 % 0.0-5.0 IG Abs (test code = IG Abs) 0 x10 N Complete Blood Count with [id number] 09:08:09 Test Item Value Reference Range Interpretation [...] code = IPF) 0 % N Automated [id number] 09:08:09 Test Item Value Reference Range Interpretation Comments Neutro Auto (test code = Neutro 73.6 % 36.0-70.0 H Auto) Lymph Auto (test code = Lymph Auto) 17.3 % 12.0-44.0 [place] Auto (test code = [place] Auto) 8.3 % 0.0-11.0 Eos, Auto (test code = Eos, Auto) 0.1 % 0.0-7.0 Basophil Auto (test code = Basophil 0.3 % 0.0-2.0 Auto) Neutro Absolute (test code = Neutro 5.1 x10 1.6-7.4 Absolute) Lymph Absolute (test code = Lymph 1.19 x10 .50-4.60 Absolute) [place] Absolute (test code = [place] .57 x10 .00-1.20 Absolute) Eos Absolute (test code = Eos 0.01 x10 0.00-0.74 Absolute) Baso Absolute (test code = Baso 0.02 x10 0.00-0.21 Absolute) Comprehensive Metabolic [id number] 13:14:00 Test Item Value Reference Range Interpretation [...] by the National Kidney Foundation,http ://nkd ep.nih.gov [id number] 13:09:00 Test Item Value Reference Range Interpretation [...] g/dL 0.00-0.01 N code = ETOHU) Urinalysis [id number] 12:59:00 Test Item Value Reference Range Interpretation Comments Color (test code = Yellow Yellow,Straw,Pl N COLOR) yellow Clarity (test code = Clear Clear N CLAR) Specific [place] (test 1.027 1.001-1.035 N code = SPGR) [...] code = Few /HPF BACT) CBC with [id number] 12:42:00 Test Item Value Reference Range Interpretation [...] code = ALYMPH) 2.3 K/cumm 0.5-4.6 N [place] Abs (test code = AMONO) 0.6 K/cumm 0.0-1.2 N Eos Abs (test code = AEOS) 0.09 K/cumm 0.00-0.74 N Baso Abs (test code = ABASO) 0.0 K/cumm 0.00-0.21 N Hepatic Function [id number] 18:55:00 Test Item Value Reference Range Interpretation [...] = ALT) 47 U/L 1-41 H HIV [id number] 12:45:00 Test Item Value Reference Range Interpretation Comments HIV 1/2 Antibody Non-Reactive Non-Reactive N HIV1/2 Anti body screen (test code = result indicate s the HIV1/2AB) absence of HIV1 and YUA8jvoyqwzkr.H owever, A Non-Reactive screen result does not [...] rule o ut exposure or infection.If ac [place] HIV-1 is suspec isai, HIV RNA Quantit ative is recommended. RPR, [id number] 21:30:00 Test Item Value Reference Range Interpretation Comments RPR (test code = RPR) Non-Reactive Non-Reactive N Thyroid Stimulating Hormone (TSH)2017-03-17 09:55:00 Test Item Value Reference Range Interpretation Comments TSH (test code = TSH) 0.94 mIU/mL 0.270-4.200 N Lipid [id number] 09:53:00 Test Item Value Reference Range Interpretation Comments Cholesterol (test 124 mg/dL 0-200 N code = CHOL) Triglycerides (test 61 mg/dL 9-200 N code = TRIG) HDL (test code = 47 mg/dL 40-60 N HDL) Chol/HDL (test code 2.6 Ratio 0.0-5.0 N = CHOLPHDL) LDL, Calculated 65 0-130 N (NOTE)RISK O F HEART (test code = LDLC) DISEASEPu blished by Finnish Heart AssociationAnal yte Optim al Boderline Increased RiskC HOL <200 200-239 >240TRI G <150 150-199 >200HDL Male: >60 <40HDL Female: >60 <50 LDL < 100 130-15 9 >160 LDL NEAR OPTIMAL IS 100- 129 VLDL (test code = 12 mg/dL 5-40 N VLDL) LDL/HDL (test code = 1 LDLPHDL) Urinalysis [id number] 15:09:00 Test Item Value Reference Range Interpretation Comments Color (test code = Yellow Yellow,Straw,Pl N COLOR) yellow Clarity (test code = Clear Clear N CLAR) Specific [place] (test 1.028 1.001-1.035 N code = SPGR) [...] = 0-1 Granular /HPF CASTS) Comprehensive Metabolic [id number] 14:24:00 Test Item Value Reference Range Interpretation [...] by the National Kidney Foundation,http ://nkd ep.nih.gov [id number] 14:20:00 Test Item Value Reference Range Interpretation [...] 0.00-0.01 N code = ETOHU) CBC with [id number] 14:08:00 Test Item Value Reference Range Interpretation [...] code = ALYMPH) 2.2 K/cumm 0.5-4.6 N [place] Abs (test code = AMONO) 0.9 K/cumm 0.0-1.2 N Eos Abs (test code = AEOS) 0.06 K/cumm 0.00-0.74 N Baso Abs (test code = ABASO) 0.0 K/cumm 0.00-0.21 N
[2020-07-10 17:46] LABS: Absolute Lymphocytes (CBC) 1.3 K/uL (0.7-4.9); Basophils % 0.3 % (0-1.3); Lymphocytes % 26.7 % (15.3-44.8); MPV 8.4 fL (7.6-11.3); RBC Red Blood Cell Count 4.44 M/uL (4.33-5.43)
[2020-07-10 17:49] LABS: Protime INR 1.07
[2020-07-10] MEDS ORDERED: NA CHLORIDE 0.9% 1,000 ML ONE (17:51)
[2020-07-10 17:58] LABS: ALT/SGPT 68 U/L (12-78); AST/SGOT 69 U/L (15-37); Albumin 4.2 g/dL (3.4-5.0); Alkaline Phosphatase 106 U/L (45-117); BUN Blood Urea Nitrogen 16 mg/dL (7-18); Bicarbonate 28 mmol/L (21-32); Bilirubin Direct 0.5 mg/dL (0-0.2); Bilirubin Total 1.9 mg/dL (0.2-1.0); Glucose Level 93 mg/dL (74-106); Potassium 3.9 mmol/L (3.5-5.1); Protein, Total 7.6 g/dL (6.4-8.2); Sodium Level 144 mmol/L (136-145); Troponin (Emerg Dept Use Only) < 0.02 ng/mL (0.0-0.045)
[2020-07-10 19:30] LABS: Urine Blood Negative (Negative); Urine Glucose Negative (Negative); Urine Protein 1+ (Negative); Urine Specific Gravity >=1.030 (1.005-1.030)
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
--- NOTE | 2020-07-10 19:30 | EDPHYS ---
Physician Documentation [facility] Name: Marshall Cook Age: 34 yrs Sex: Male : 1985 Arrival Date: 07/10/2020 Time: 16:18 Bed 18 Private MD: ED Physician Francisco Mathews HPI: 07/10 17:06 This 34 yrs old Male presents to ER via Ambulatory with complaints of Chest pm1 Pain. 17:06 The patient or guardian reports chest pain that is located primarily in the mid-sternal pm1 area. The pain does not radiate. Associated signs and symptoms: The patient has no apparent associated signs or symptoms. The chest pain is described as aching. Duration: The patient or guardian reports a single episode, that is now resolved. Modifying factors: The symptoms are alleviated by nothing. the symptoms are aggravated by nothing. Severity of pain: in the emergency department the pain has resolved. The patient has not experienced similar symptoms in the past. The patient has not recently seen a physician. Patient denies substance abuse. Historical: - Allergies: 16:35 ketorolac tromethamine; ca1 16:35 Naproxen; ca1 16:35 Tramadol HCl; ca1 - PMHx: 16:35 Anxiety; Bipolar disorder; Schizophrenia; ca1 - PSHx: 16:35 None; ca1 - Immunization history:: Client reports receiving the 1st dose of the Covid vaccine. - Social history:: Smoking status: Patient reports the use of cigarette tobacco products, denies chronic smoking, but will smoke occasionally, Patient/guardian denies using alcohol, street drugs, IV drugs. ROS: 17:06 Constitutional: Negative for fever, chills, and weight loss, Eyes: Negative for injury, pm1 pain, redness, and discharge, ENT: Negative for injury, pain, and discharge, Neck: Negative for injury, pain, and swelling, Respiratory: Negative for shortness of breath, cough, wheezing, and pleuritic chest pain, Abdomen/GI: Negative for abdominal pain, nausea, vomiting, diarrhea, and constipation, Back: Negative for injury and pain. 17:06 MS/Extremity: Negative for injury and deformity, Skin: Negative for injury, rash, and discoloration, Neuro: Negative for headache, weakness, numbness, tingling, and seizure. 17:06 Cardiovascular: Positive for chest pain, Negative for edema, palpitations. 17:06 Psych: Negative for auditory hallucinations, visual hallucinations, homicidal ideation, suicide gesture, suicidal ideation. Exam: 17:06 Constitutional: This is a well developed, well nourished patient who is awake, alert, pm1 and in no acute distress. Head/Face: Normocephalic, atraumatic. 17:06 Chest/axilla: Normal chest wall appearance and motion. Nontender with no deformity. No lesions are appreciated. 17:06 Back: No spinal tenderness. No costovertebral tenderness. Full range of motion. Skin: Warm, dry with normal turgor. Normal color with no rashes, no lesions, and no evidence of cellulitis. MS/ Extremity: Pulses equal, no cyanosis. Neurovascular intact. Full, normal range of motion. 17:06 Eyes: Exam is negative for acute changes, Extraocular movements: no acute changes, Conjunctiva: normal. 17:06 ENT: Mouth: Lips: normal, Oral mucosa: normal, pink and intact, moist. 17:06 Cardiovascular: Rate: tachycardic, actual rate is 107 bpm, Rhythm: regular, Pulses: no pulse deficits are appreciated, Edema: is not appreciated. 17:06 Respiratory: Exam negative for acute changes, respiratory distress, shortness of breath. 17:06 Abdomen/GI: Inspection: abdomen appears normal, Palpation: abdomen is soft and non-tender. 17:06 Neuro: Orientation: is normal, Mentation: is normal, Motor: is normal, moves all fours, Gait: is steady, at a normal pace, without difficulty. 17:06 Psych: Behavior/mood is cooperative, Affect is animated, Oriented to person, place, time, Patient has no thoughts/intents to harm self or others. Delusions/hallucinations are not present. Patient appears restless and agitated. Appears under the influence . Vital Signs: 16:23 BP 132 / 82; Pulse 117; Resp 20; Temp 98(TE); Pulse Ox 98% on R/A; Pain 0/10; ca1 16:58 BP 139 / 92; Pulse 107; Pulse Ox 100% on R/A; Pain 0/10; ap3 17:41 BP 130 / 80; Pulse 96; Pulse Ox 100% on R/A; ap3 19:00 BP 135 / 100; Pulse 94; Pulse Ox 100% on R/A; ap3 MDM: 16:27 Patient medically screened. pm1 19:28 Data reviewed: vital signs. Data interpreted: Pulse oximetry: on room air is 100 %. pm1 Interpretation: normal. Counseling: I had a detailed discussion with the patient and/or guardian regarding: the historical points, exam findings, and any diagnostic results supporting the discharge/admit diagnosis, lab results, radiology results, the need for outpatient follow up, to return to the emergency department if symptoms worsen or persist or if there are any questions or concerns that arise at home. 07/10 16:28 Order name: Acetaminophen; Complete Time: 18:15 pm1 07/10 16:28 Order name: Basic Metabolic Panel; Complete Time: 18:15 pm1 07/10 16:28 Order name: CBC with Diff; Complete Time: 17:51 pm07/10 16:28 Order name: ETOH Level; Complete Time: 17:51 pm07/10 16:28 Order name: Hepatic Function; Complete Time: 18:15 pm07/10 16:28 Order name: PT-INR; Complete Time: 17:51 pm07/10 16:28 Order name: Ptt, Activated; Complete Time: 17:51 pm1 07/10 16:28 Order name: Salicylate; Complete Time: 18:15 pm1 07/10 16:28 Order name: Urine Drug Screen; Complete Time: 20:10 pm1 07/10 16:28 Order name: EKG; Complete Time: 16:29 pm1 07/10 16:28 Order name: Troponin (emerg Dept Use Only); Complete Time: 18:15 pm07/10 19:30 Order name: Urine Dipstick-Ancillary; Complete Time: 20:10 EDMS 07/10 19:34 Order name: Urine Dipstick-Ancillary; Complete Time: 20:10 EDMS 07/10 16:28 Order name: EKG - Nurse/Tech; Complete Time: 16:36 pm1 07/10 16:28 Order name: IV Saline Lock; Complete Time: 17:39 pm1 07/10 16:28 Order name: Labs collected and sent; Complete Time: 17:39 pm1 Administered Medications: 17:38 Drug: NS 0.9% 1000 ml Route: IV; Rate: 1000 ml; Site: right antecubital; ap3 Disposition: 07/10/20 19:29 Discharged to Home. Impression: Chest pain, unspecified. - Condition is Stable. - Discharge Instructions: Nonspecific Chest Pain. - Medication Reconciliation Form, Thank You Letter, Antibiotic Education, Prescription Opioid Use form. - Follow up: Emergency Department; When: As needed; Reason: Worsening of condition. Follow up: Private Physician; When: 2 - 3 days; Reason: Recheck today's complaints, Continuance of care, Re-evaluation by your physician. - Problem is new. - Symptoms have improved. Addendum: 07/16/2020 07:58 Co-signature as Attending Physician, Francisco Mathews MD. r n Signatures: Dispatcher [employer] EDMS Francisco Mathews MD MD rn Patrick Coulter, AGER OPERATOR AGER OPERATOR pm1 Niya Cardoso RN RN ap3 Lit Narayanan RN RN rr5 Abigail Romero RN RN ca1 Corrections: (The following items were deleted from the chart) 07/10 16:28 16:28 Suicide Screening ([place]) ordered. pm1 pm1 19:45 19:29 07/10/2020 19:29 Discharged to Home. Impression: Chest pain, unspecified. rr5 Condition is Stable. Forms are Medication Reconciliation Form, Thank You Letter, Antibiotic Education, Prescription Opioid Use. Follow up: Emergency Department; When: As needed; Reason: Worsening of condition. Follow up: Private Physician; When: 2 - 3 days; Reason: Recheck today's complaints, Continuance of care, Re-evaluation by your physician. Problem is new. Symptoms have improved. pm1
[2020-07-10 19:34] LABS: Urine Blood Trace-intact (Negative); Urine Glucose Negative (Negative); Urine Protein 1+ (Negative); Urine Specific Gravity >=1.030 (1.005-1.030)
[2020-07-10 19:48] LABS: Barbiturates NEGATIVE (NEGATIVE); Benzodiazepines NEGATIVE (NEGATIVE); Cocaine NEGATIVE (NEGATIVE); METHAMPHETAM POSITIVE (NEGATIVE); Methadone NEGATIVE (NEGATIVE); Opiates NEGATIVE (NEGATIVE); Phencyclidine NEGATIVE (NEGATIVE); THC Cannibis NEGATIVE (NEGATIVE)
[2020-07-10 20:41] VITALS: TEMP 98
[2020-07-10 20:43] VITALS: O2SAT 100
[2020-07-10 20:46] VITALS: BP 135/100
--- NOTE | 2020-07-11 11:59 | EKG ---
Test Date: 2020-07-10 Test Time: 16:29:11 Bar Manager: KIM MEASUREMENT RESULTS: Intervals: Rate: 113 WI: 132 QRSD: 82 QT: 332 QTc: 455 [place]: P: 36 WI: 132 QRS: 64 T: 40 INTERPRETIVE STATEMENTS: Sinus tachycardia Otherwise normal ECG Compared to ECG 06/30/2020 12:39:12 Sinus rhythm no longer present Electronically Signed On 07-11-20 11:57:03 CDT by Cj Anderson
== END 2020-07-10 19:45 | disposition home or self-care (01) ==
LOC: ER 16:15
DX: R07.9 Chest pain, unspecified (principal); F17.210 Nicotine dependence, cigarettes, uncomplicated; Z88.5 Allergy status to narcotic agent; Z88.6 Allergy status to analgesic agent; Z88.8 Allergy status to other drugs, medicaments and biological substances
CPT/HCPCS: 93005; 85025; 80048; 36415; 80320; 80329 ×2; 85610; 80076; 80307 ×8; 85730; 81003 ×2; 84484; 99284; J7030

== ENCOUNTER 2021-05-06 18:56 | Emergency (ER) | payer OTHER ==
[2021-05-06 19:57] LABS: Urine Blood 2+ (Negative); Urine Glucose Negative (Negative); Urine Protein Negative (Negative)
[2021-05-06 19:59] LABS: Absolute Lymphocytes (CBC) 2.2 K/uL (0.7-4.9); Lymphocytes % 18.3 % (15.3-44.8)
[2021-05-06 20:22] LABS: BUN Blood Urea Nitrogen 10 mg/dL (7-18); Bicarbonate 26 mmol/L (21-32); Glucose Level 96 mg/dL (74-106); Potassium 3.4 mmol/L (3.5-5.1); Sodium Level 137 mmol/L (136-145)
--- NOTE | 2021-05-06 20:27 | RAD REPORT ---
EXAM DESCRIPTION: RAD - Chest Single View - 05/06/2021 8:18 pm CLINICAL HISTORY: CHEST PAIN Chest pain. COMPARISON: Chest Single View dated 06/30/2020; Chest Single View dated 11/02/2018; Chest Single View dated 04/02/2017; Chest Single View dated 10/11/2016 FINDINGS: Portable technique limits examination quality. The lungs are grossly clear. The heart is normal in size. No displaced fractures. IMPRESSION: No acute intrathoracic process suspected.
[2021-05-06 20:29] LABS: Protime INR 1.12
[2021-05-06 20:34] LABS: Barbiturates NEGATIVE (NEGATIVE); Benzodiazepines NEGATIVE (NEGATIVE); Cocaine NEGATIVE (NEGATIVE); METHAMPHETAM POSITIVE (NEGATIVE); Methadone NEGATIVE (NEGATIVE); Opiates NEGATIVE (NEGATIVE); Phencyclidine NEGATIVE (NEGATIVE); THC Cannibis POSITIVE (NEGATIVE)
[2021-05-06 20:51] LABS: ALT/SGPT 33 U/L (12-78); AST/SGOT 24 U/L (15-37); Alkaline Phosphatase 97 U/L (45-117); Bilirubin Direct 0.3 mg/dL (0-0.2); Bilirubin Total 1.3 mg/dL (0.2-1.0); Magnesium 2.1 mg/dL (1.8-2.4); Protein, Total 8.9 g/dL (6.4-8.2)
[2021-05-06 20:53] LABS: Troponin High Sensitivity < 3.00 pg/mL (<58.9)
--- NOTE | 2021-05-06 23:17 | EDPHYS ---
Physician Documentation [facility] Name: Marshall Cook Age: 35 yrs Sex: Male : 1985 Arrival Date: 05/06/2021 Time: 19:02 Bed 20 Private MD: ED Physician Jose Tim HPI: 05/06 19:29 This 35 yrs old Male presents to ER via EMS with complaints of Chest pain. pm1 19:29 The patient or guardian reports chest pain that is located primarily in the mid-sternal pm1 area. The pain does not radiate. Associated signs and symptoms: The patient has no apparent associated signs or symptoms, Pertinent negatives: abdominal pain, cough, nausea, shortness of breath, vomiting. The chest pain is described as aching. Duration: The patient or guardian reports a single episode, that is still ongoing. Modifying factors: the symptoms are aggravated by Patient smoked/vaped drugs prior to onset of chest pain. Severity of pain: in the emergency department the pain is unchanged. The patient has experienced similar episodes in the past, several times, today's symptoms are similar, to previous drug abuse. Historical: - Allergies: 19:11 ketorolac tromethamine; ld1 19:11 Naproxen; ld1 19:11 Tramadol HCl; ld1 - PMHx: 19:11 Anxiety; Bipolar disorder; Schizophrenia; Paraplegic; ld1 - Immunization history:: Adult Immunizations up to date, Client reports receiving the 2nd dose of the Covid vaccine. - Social history:: Smoking status: Patient denies any tobacco usage or history of. Patient/guardian denies using alcohol. ROS: 19:29 Constitutional: Negative for fever, chills, and weight loss. pm1 19:29 Respiratory: Negative for shortness of breath, cough, wheezing, and pleuritic chest pain, Abdomen/GI: Negative for abdominal pain, nausea, vomiting, diarrhea, and constipation, Back: Negative for injury and pain, MS/Extremity: Negative for injury and deformity, Skin: Negative for injury, rash, and discoloration, Neuro: Negative for headache, weakness, numbness, tingling, and seizure. 19:29 Cardiovascular: Positive for chest pain. 19:29 All other systems are negative. Exam: 19:29 Constitutional: This is a well developed, well nourished patient who is awake, alert, pm1 and in no acute distress. Head/Face: Normocephalic, atraumatic. 19:29 Skin: Warm, dry with normal turgor. Normal color with no rashes, no lesions, and no evidence of cellulitis. 19:29 Eyes: Exam is negative for acute changes, Pupils: no acute changes, Extraocular movements: no acute changes, Conjunctiva: no acute changes, no injection. 19:29 ENT: Exam is negative for acute changes, Mouth: no acute changes, Lips: normal, moist, Oral mucosa: normal, pink and intact, moist. 19:29 Cardiovascular: Exam negative for acute changes, Rate: tachycardic, Rhythm: regular, Pulses: no pulse deficits are appreciated. 19:29 Respiratory: Exam negative for acute changes, respiratory distress, shortness of breath, Breath sounds: are clear throughout. 19:29 Abdomen/GI: Inspection: abdomen appears normal, Palpation: Bladder distention. 19:29 Musculoskeletal/extremity: Exam is negative for acute changes. 19:29 Neuro: Exam negative for acute changes, Orientation: is normal, Mentation: is normal. Vital Signs: 19:06 BP 135 / 98 LA (/lg); Pulse 136; Resp 18; Temp 98.6(O); Pulse Ox 100% on R/A; Weight mb7 83.91 kg (R); Height 5 ft. 9 in. (175.26 cm) (R); Pain 0/10; 19:10 BP 135 / 98; Pulse 133; Resp 20; Temp 98.6(TE); Pulse Ox 100% on R/A; Weight 83.91 kg; ld1 Height 5 ft. 8 in. (172.72 cm); Pain 6/10; 20:00 BP 139 / 88; Pulse 136; Resp 18; Pulse Ox 100% on R/A; ld1 23:44 BP 113 / 86; Pulse 121; Resp 16; Pulse Ox 100% on R/A; ke1 05/07 01:13 BP 118 / 84; Pulse 106; Resp 17; Pulse Ox 100% on R/A; ke1 05/06 19:10 Body Mass Index 28.13 (83.91 kg, 172.72 cm) ld1 MDM: 05/06 19:05 Patient medically screened. pm1 23:14 Data reviewed: vital signs. Data interpreted: Pulse oximetry: on room air is 100 %. pm1 Interpretation: normal. Counseling: I had a detailed discussion with the patient and/or guardian regarding: the historical points, exam findings, and any diagnostic results supporting the discharge/admit diagnosis, lab results, radiology results, the need for outpatient follow up, to return to the emergency department if symptoms worsen or persist or if there are any questions or concerns that arise at home. 05/06 19:11 Order name: Basic Metabolic Panel; Complete Time: 22:34 pm1 05/06 19:11 Order name: CBC with Diff; Complete Time: 20:19 pm1 05/06 19:11 Order name: LFT's; Complete Time: 22:34 pm1 05/06 19:11 Order name: Magnesium; Complete Time: 22:34 pm1 05/06 19:11 Order name: PT-INR; Complete Time: 20:33 pm1 05/06 19:11 Order name: Troponin HS; Complete Time: 22:34 pm1 05/06 19:11 Order name: XRAY Chest (1 view); Complete Time: 20:33 pm1 05/06 19:11 Order name: EKG; Complete Time: 19:13 pm05/06 19:11 Order name: Cardiac monitoring; Complete Time: 19:13 pm05/06 19:15 Order name: UDS; Complete Time: 22:34 pm05/06 19:57 Order name: Urine Dipstick-Ancillary; Complete Time: 20:05 [facility] 05/06 20:33 Order name: Urine Microscopic Only; Complete Time: 00:05 pm05/06 23:48 Order name: Urine Culture [facility] 05/06 19:11 Order name: EKG - Nurse/Tech; Complete Time: 19:13 pm05/06 19:11 Order name: IV Saline Lock; Complete Time: 19:31 pm1 05/06 19:11 Order name: Labs collected and sent; Complete Time: 19:31 pm05/06 19:11 Order name: O2 Per Protocol; Complete Time: 19:13 pm05/06 19:11 Order name: O2 Sat Monitoring; Complete Time: 19:13 pm05/06 19:11 Order name: Gómez; Complete Time: 20:00 pm1 03/21 19:11 Order name: Urine Dipstick-Ancillary (obtain specimen); Complete Time: 20:00 pm1 05/06 19:11 Order name: Bladder Scanner; Complete Time: 20:00 pm1 05/06 23:12 Order name: Vital Signs; Complete Time: 23:45 pm1 Administered Medications: 23:47 Drug: NS 0.9% 1000 ml Route: IV; Rate: 1000 ml; Site: right antecubital; ke1 05/07 00:24 Follow up: IV Status: Completed infusion ke1 Disposition Summary: 05/06/21 23:16 Discharge Ordered Location: Home pm1 Problem: new pm1 Symptoms: have improved pm1 Condition: Stable pm1 Diagnosis - Chest pain, unspecified pm1 - Other stimulant abuse - Methamphetamine abuse pm1 - Cannabis abuse pm1 Followup: pm1 - With: Emergency Department - When: As needed - Reason: Worsening of condition Followup: pm1 - With: Private Physician - When: 2 - 3 days - Reason: Recheck today's complaints, Continuance of care, Re-evaluation by your physician Discharge Instructions: - Discharge Summary Sheet pm1 - Nonspecific Chest Pain, Adult pm1 - Cannabis Use Disorder pm1 - Methamphetamines Use Disorder pm1 Forms: - Medication Reconciliation Form pm1 - Thank You Letter pm1 - Antibiotic Education pm1 - Prescription Opioid Use pm1 - SBAR form mw2 Addendum: 05/09/2021 07:26 Co-signature as Attending Physician, Jose Tim MD I agree with the assessment and k dr plan of care. Signatures: Dispatcher [employer] EDMS Jose Tim MD MD kdr Marinas, Patrick, NP LIVESTOCK EXHIBITOR pm1 Eri Strong RN RN ld1 Hannah Swanson RN RN ke1
--- NOTE | 2021-05-06 23:17 | ER ---
Nurse's Notes [facility] Name: Marshall Cook Age: 35 yrs Sex: Male : 1985 Arrival Date: 05/06/2021 Time: 19:02 Bed 20 Private MD: Diagnosis: Chest pain, unspecified;Other stimulant abuse-Methamphetamine abuse;Cannabis abuse Presentation: 05/06 19:10 Chief complaint: EMS states: toned out to [facility] for chest pain. Upon ld1 arrival to facility pt was hyperventilating. Pt reporting midsternal chest pain. Coronavirus screen: At this time, the client does not indicate any symptoms associated with coronavirus-19. Ebola Screen: No symptoms or risks identified at this time. Initial Sepsis Screen: Does the patient meet any 2 criteria? No. Patient's initial sepsis screen is negative. Does the patient have a suspected source of infection? No. Patient's initial sepsis screen is negative. Risk Assessment: Do you want to hurt yourself or someone else? Patient reports no desire to harm self or others. Onset of symptoms was May 06, 2021. 19:10 Method Of Arrival: EMS: [facility] ld1 19:10 Acuity: NICOLE 3 ld1 Triage Assessment: 19:11 General: Appears in no apparent distress. uncomfortable, Behavior is cooperative, ld1 anxious. Pain: Complains of pain in chest Pain does not radiate. Pain currently is 6 out of 10 on a pain scale. Quality of pain is described as throbbing, Pain began suddenly, Is continuous. Neuro: Level of Consciousness is awake, alert, obeys commands, Oriented to person, place, time, situation. Cardiovascular: Capillary refill < 3 seconds Patient's skin is warm and dry. Respiratory: Airway is patent Respiratory effort is even, unlabored. GI: Abdomen is round distended. : No signs and/or symptoms were reported regarding the genitourinary system. Derm: No signs and/or symptoms reported regarding the dermatologic system. Musculoskeletal: No signs and/or symptoms reported regarding the musculoskeletal system. Historical: - Allergies: 19:11 ketorolac tromethamine; ld1 19:11 Naproxen; ld1 19:11 Tramadol HCl; ld1 - PMHx: 19:11 Anxiety; Bipolar disorder; Schizophrenia; Paraplegic; ld1 - Immunization history:: Adult Immunizations up to date, Client reports receiving the 2nd dose of the Covid vaccine. - Social history:: Smoking status: Patient denies any tobacco usage or history of. Patient/guardian denies using alcohol. Screenin/22 00:06 Abuse screen: Denies threats or abuse. Nutritional screening: No deficits noted. ke1 Tuberculosis screening: No symptoms or risk factors identified. Fall Risk No fall in past 12 months (0 pts). Secondary diagnosis (15 points) IV access (20 points). Ambulatory Aid- None/Bed Rest/Nurse Assist (0 pts). Gait- Normal/Bed Rest/Wheelchair (0 pts) Mental Status- Oriented to own ability (0 pts). Total Shi Fall Scale indicates. Assessment: 05/06 20:00 Reassessment: see triage assessment. General:. ld1 05/07 00:23 Reassessment: Report given to nurse Jones. ke1 Vital Signs: 05/06 19:06 BP 135 / 98 LA (/lg); Pulse 136; Resp 18; Temp 98.6(O); Pulse Ox 100% on R/A; Weight mb7 83.91 kg (R); Height 5 ft. 9 in. (175.26 cm) (R); Pain 0/10; 19:10 BP 135 / 98; Pulse 133; Resp 20; Temp 98.6(TE); Pulse Ox 100% on R/A; Weight 83.91 kg; ld1 Height 5 ft. 8 in. (172.72 cm); Pain 6/10; 20:00 BP 139 / 88; Pulse 136; Resp 18; Pulse Ox 100% on R/A; ld1 23:44 BP 113 / 86; Pulse 121; Resp 16; Pulse Ox 100% on R/A; ke1 05/07 01:13 BP 118 / 84; Pulse 106; Resp 17; Pulse Ox 100% on R/A; ke1 05/06 19:10 Body Mass Index 28.13 (83.91 kg, 172.72 cm) ld1 ED Course: 05/06 19:02 Patient arrived in ED. mh5 19:04 Patrick Coulter NP is PHCP. pm1 19:05 Jose Tim MD is Attending Physician. pm1 19:07 Patient has correct armband on for positive identification. Placed in gown. Bed in low mb7 position. Call light in reach. Side rails up X 1. Door closed. Noise minimized. Warm blanket given. 19:10 Eri Strong, RN is Primary Nurse. ld1 19:11 Triage completed. ld1 19:11 Arm band placed on right wrist. ld1 19:31 Inserted saline lock: 20 gauge in right antecubital area, using aseptic technique. ld1 Blood collected. 20:00 UDS Sent. ld1 20:18 XRAY Chest (1 view) In Process Unspecified. EDMS 21:10 Primary Nurse role handed off by Eri Strong, CHELA ke1 21:10 Hannah Swanson, RN is Primary Nurse. ke1 05/07 00:10 No provider procedures requiring assistance completed. ke1 00:24 IV discontinued. ke1 Administered Medications: 05/06 23:47 Drug: NS 0.9% 1000 ml Route: IV; Rate: 1000 ml; Site: right antecubital; ke1 05/07 00:24 Follow up: IV Status: Completed infusion ke1 Output: 05/06 20:00 Urine: 1400ml (Straight Cath); Total: 1400ml. ld1 Outcome: 23:16 Discharge ordered by . pm1 05/07 00:23 Discharged to [facility] 01:11 Discharged to [facility]. Report called to Karen mcfarlane ke1 01:11 Condition: stable 01:11 Discharge instructions given to [facility]. 01:14 Patient left the ED. ke1 Addendum: 05/11/2021 07:36 Addendum: Culture Results: Positive urine culture. No further action required. Other: e b patient seen later the same day and given two antibiotics and that are sensitive to the Prescribed Antibiotics. . Signatures: Dispatcher [employer] EDTX Patrick Coulter NP REGULATORY MANAGER 1 [facility] Eusebia Shrestha Eri Strong, CHELA RN ld1 Ghazal Bolaños 7 Hannah Swanson RN RN ke1
[2021-05-06 23:47] LABS: Urine Bacteria <20 /HPF (NONE SEEN); Urine RBC <5 /HPF (NONE SEEN); Urine Urothelial Cells <5 /HPF (NONE SEEN)
--- OUTSIDE RECORDS SUMMARY | 2021-05-07 00:35 | XMS REPORT | Continuity of Care Document ---
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 2018-11-05 [facility] [id number] [facility] 20:38:48 05:13:00 Brown Nichols 350.1.13.10 [facility] 4.2.7.2.686 [facility] [id number] [address] 2018-11-04 2018-11-05 [facility] [id number] 20:38:48 05:13:00 Brown Nichols 350.1.13.10 [place] 4.2.7.2.686 [place] [id number] [facility] 2018-10-18 2018-10-18 Emergency [facility] [id number] [place] 06:08:40 06:08:40 [facility] 2017-04-02 2017-04-02 Outpatient [facility] [id number] [place] 00:00:00 00:00:00 [facility] 2017-03-29 2017-03-29 Emergency [facility] [id number] [place] 00:00:48 00:00:48 [facility] 2017-03-22 2017-03-22 [facility] [id number] 11:46:00 11:46:00 [facility] 2017-03-16 2017-03-20 [facility] [id number] 20:46:00 13:41:00 Jonathon DIOP M.D. [facility] 2017-01-26 2017-01-26 Outpatient [facility] [id number] [facility] 00:00:00 00:00:00 Results Test Description Test Time Test Comments Results Result Comments Source SARS-CoV-2 ORF1ab Resp Ql BETY+probe 2021-02-11 19:38:49 Test Item Value Reference Range Interpretation Comme nts Hospitalized? (test code = Yes 05185-7) ICU? (test code = 38432-7) No Symptomatic as defined by CDC? No (test code = 99185-0) Employed in Healthcare? (test No code = 74789-0) Resident in a congregate care No setting (including nursing homes, residential care for people with intellectual and developmental disabilities, psychiatric treatment facilities, group homes, board and care homes, homeless long-term, foster care or other): (test code = 93123-0) SARS-CoV-2 ORF1ab Resp Ql NOT DETECTED Not Detected IN TERPRETATION: No BETY+probe (test code = [place] [address]-8) SARS-CoV-2 Zachary navirus (COVID-19) were present in this patient's sample by this test. A no t detected result does not exclude the possibility of active infection with this virus due to other fa ctors that may affect the results such as a poorly col lected sample, viral t iters below the limit of de tection of the assay, and the infrequent poss ibility of inhibitors in t he sample. This result emi uld be interpreted in conjunction with clinical, radiographic, a nd other laboratory find ings and should not be u sed as the sole indicator of active infection with SARS-CoV-2 Coronavirus ([place] VID-19). COMMENT: This FullContact SARS-CoV-2 molecular diagnostic assay utilizes Packing Supervisor Mediated Amplification (TMA) technology to rapidly detect the SARS-CoV-2 (COVID-19) virus from respiratory samples. In accordance with the FDA's guidance document "Policy for Diagnostic Tests for Coronavirus Disease- 2019 during the Public Health Emergency", this test was developed, and its performance characteristics were verified by the [facility] molecular diagnostics laboratory and is authorized for clinical diagnostic use. This laboratory is certified under the Clinical Laboratory Improvement Amendments (CLIA) as qualified to perform high complexity clinical laboratory testing.SARS-CoV-2 RNA Resp Ql [id number]+[id number] 22:20:00 Test Item Value Reference Range Interpretation Comments Hospitalized? (test Yes code = 19375-4) ICU? (test code = No 21510-1) Symptomatic as defined No by CDC? (test code = 76682-8) Employed in Unknown Healthcare? (test code = 62270-4) Resident in a Unknown congregate care setting (including nursing homes, residential care for people with intellectual and developmental disabilities, psychiatric treatment facilities, group homes, board and care homes, homeless long-term, foster care or other): (test code = 96566-8) SARS-CoV-2 RNA Resp Ql NOT DETECTED Not Detected INTER PRETATION: No BETY+probe (test code = detec table levels 44090-1) of SARS-CoV-2 Coronavirus (COVID-19) were present in this patient's sampl e by this test. A no t detected result does not exclud e the possibility of active infectio n with this virus due to other factor s that may affect the results such as a poorly collecte d sample, viral titers below th e limit of detect ion of the assay, a nd the infrequent possibility of inhibitors in t he sample. This re sult should be interpreted in conjunction wit h clinical, radiographic, a nd other laborator y findings and sh ould not be used as the sole indicator of active infectio n with SARS-CoV-2 Coronavirus (COVID-19). COMMENT: This alejandro real-time reverse transcriptase polymerase chain reaction (RT-PCR) test rapidly detects SARS-CoV-2 (COVID-19) virus from nasopharyngeal and nasal swab specimens. In accordance with the FDA's guidance document "Policy for Diagnostic Tests for Coronavirus Disease-2019 during the Public Health Emergency", this test was developed, and its performance characteristics were verified by the [facility] molecular diagnostics laboratory and is authorized for clinical diagnostic use. This laboratory is certified under the Clinical Laboratory Improvement Amendments (CLIA) as qualified to perform high complexity clinical laboratory testing.SARS-CoV-2 ORF1ab Resp Ql [id number]+[id number] 14:59:31 Test Item Value Reference Range Interpretation Comments Hospitalized? (test Yes code = 11371-8) ICU? (test code = Yes 200118-5) Symptomatic as defined No by CDC? (test code = 66724-4) Employed in No Healthcare? (test code = 60132-3) Resident in a No congregate care setting (including nursing homes, residential care for people with intellectual and developmental disabilities, psychiatric treatment facilities, group homes, board and care homes, homeless long-term, foster care or other): (test code = 09393-7) SARS-CoV-2 ORF1ab Resp NOT DETECTED Not Detected INTER PRETATION: No Ql BETY+probe (test detectabl e levels code = 27364-9) of SARS-CoV- 2 Coronavirus (COVID-19) were present in this patient's sampl e by this test. A no t detected result does not exclud e the possibility of active infectio n with this virus due to other factor s that may affect the results such as a poorly collecte d sample, viral titers below th e limit of detect ion of the assay, a nd the infrequent possibility of inhibitors in t he sample. This re sult should be interpreted in conjunction wit h clinical, radiographic, a nd other laborator y findings and sh ould not be used as the sole indicator of active infectio n with SARS-CoV-2 Coronavirus (COVID-19). COMMENT: This DocOnYouima SARS-CoV-2 molecular diagnostic assay utilizes Packing Supervisor Mediated Amplification (TMA) technology to rapidly detect the SARS-CoV-2 (COVID-19) virus from respiratory samples. In accordance with the FDA's guidance document "Policy for Diagnostic Tests for Coronavirus Disease- 2019 during the Public Health Emergency", this test was developed, and its performance characteristics were verified by the [facility] molecular diagnostics laboratory and is authorized for clinical diagnostic use. This laboratory is certified under the Clinical Laboratory Improvement Amendments (CLIA) as qualified to perform high complexity clinical laboratory testing.SARS-CoV-2 RNA Resp Ql [id number]+[id number] 00:53:33 Test Item Value Reference Range Interpretation Comments Hospitalized? (test code Yes = 27981-1) ICU? (test code = No 93170-1) Symptomatic as defined No by CDC? (test code = 17989-1) Employed in Healthcare? No (test code = 11370-0) Resident in a congregate No care setting (including nursing homes, residential care for people with intellectual and developmental disabilities, psychiatric treatment facilities, group homes, board and care homes, homeless long-term, foster care or other): (test code = 59211-3) ? (test code = No 51902-5) SARS-CoV-2 RNA Resp Ql DETECTED Not Detected A INTER PRETATION: This BETY+probe (test code = odalys nt's sample had 56063-5) detectable RNA present for the SARS-CoV-2 Coronavirus (COVID-19). A r esult with detectable RNA does not indica te the severity of infection. This result should b e interpreted in conjunction wit h clinical, radiographic, a nd other laborator y findings and sh ould not be used as the sole indicator of active infectio n with SARS-CoV-2 Coronavirus (COVID-19). COMMENT: This alejandro real-time reverse transcriptase polymerase chain reaction (RT-PCR) test rapidly detects SARS-CoV-2 (COVID-19) virus from nasopharyngeal and nasal swab specimens. In accordance with the FDA's guidance document "Policy for Diagnostic Tests for Coronavirus Disease-2019 during the Public Health Emergency", this test was developed, and its performance characteristics were verified by the [facility] molecular diagnostics laboratory and is authorized for clinical diagnostic use. This laboratory is certified under the Clinical Laboratory Improvement Amendments (CLIA) as qualified to perform high complexity clinical laboratory testing.URINALYSIS COMPLETE 2020-12-20 13:19:00 Test Item Value Reference Range Interpretation Comments UA COLOR (test code = YELLOW DESCRIPT YELLOW COLU) UA APPEARANCE (test CLEAR DESCRIPT CLEAR code = APPU) UA GLUCOSE DIPSTICK NORMAL (0) See_Comment [Automa isai (test code = DGLUU) mg/dL message] The system which generated this result transmit isai reference range : 0 (NORMAL). The reference range was not used to interpret this result as normal/abnormal . UA BILIRUBIN DIPSTICK NEGATIVE (0.0) See_Comment [Au tomated (test code = BILU) mg/dL message] The system which generated this result transmit isai reference range : (NEG) 0. The reference range was not used to interpret this result as normal/abnormal . UA KETONE DIPSTICK 20 (1+) mg/dL See_Comment A [Automa isai (test code = KETU) message] The system which generated this result transmit isai reference range : (NEG) 0. The reference range was not used to interpret this result as normal/abnormal . UA SPECIFIC GRAVITY 1.034 SG 1.001-1.035 (test code = SGU) UA BLOOD DIPSTICK NEGATIVE (0.00) See_Comment [Autom ated (test code = NARESH) mg/dL message] T he system which generated this result transmit isai reference range : 0 (NEG). The reference range was not used to interpret this result as normal/abnormal . UA PH DIPSTICK (test 6.0 pH UNITS 4.6-8.0 code = MIKE) UA PROTEIN DIPSTICK 10 (TRACE) See_Comment A [Automa isai (test code = PROU) mg/dL message] The system which generated this result transmit isai reference range : <30 (1+). The reference range was not used to interpret this result as normal/abnormal . UA UROBILINIOGEN 8 (3+) mg/Dl See_Comment A [Automated DIPSTICK (test code = messag e] The URO) system which generated this result transmit isai reference range : <2.0 (1+). The reference range was not used to interpret this result as normal/abnormal . UA NITRITE DIPSTICK NEGATIVE (0) NEG (test code = SHERIF) SCREEN UA LEUKOCYTE ESTERASE NEGATIVE (0) See_Comment [Auto mated DIPSTICK (test code = Leuk/mcL messag e] The LEUU) system which generated this result transmit isai reference range : (NEG) 0. The reference range was not used to interpret this result as normal/abnormal . UA WBC (test code = 0-3 #WBC/HPF 0-3 WBCU) UA RBC (test code = 0-3 #RBC/HPF 0-3 RBCU) UA BACTERIA (test FEW >1 /HPF NONE-FEW code = BACU) UA SQUAMOUS CELLS RARE >0 /UL NONE-SQepi (test code = SQU) UA MUCUS (test code = MANY /LPF NONE A MUCU) DRUGS OF ABUSE SCREEN [id number] 13:19:00 Test Item Value Reference Interpretation Comments Range URN COCAINE (test NONE DETECTED See_Comment [Automat ed message] The code = COCAURN) (NEG) system which generated SCcutoff this result tra nsmitted reference range : <300 NG/ML. The refe rence range was not u sed to interpret this result as normal/abnormal . URN CANNABINOIDS NONE DETECTED See_Comment [Automate d message] The (test code = (NEG) system which ge nerated CANNABURN) SCcutoff this result tra nsmitted reference range : <50 NG/ML. The refe rence range was not u sed to interpret this result as normal/abnormal . URN AMPHETAMINE POSITIVE See_Comment A [Automated message] The (test code = SCcutoff system which ge nerated AMPHETURN) this result tra nsmitted reference range : <1000 NG/ML. The refe rence range was not u sed to interpret this result as normal/abnormal . URN BARBITURATE NONE DETECTED See_Comment [Automated message] The (test code = (NEG) system which ge nerated BARBITURN) SCcutoff this result tra nsmitted reference range : <200 NG/ML. The refe rence range was not u sed to interpret this result as normal/abnormal . URN BENZODIAZEPINE NONE DETECTED See_Comment [Automa isai message] The (test code = (NEG) system which ge nerated BENZOURN) SCcutoff this result tra nsmitted reference range : <200 NG/ML. The refe rence range was not u sed to interpret this result as normal/abnormal . URN OPIATES (test NONE DETECTED See_Comment [Automat ed message] The code = OPIATURN) (NEG) system whic h generated SCcutoff this result tra nsmitted reference range : <300 NG/ML. The refe rence range was not u sed to interpret this result as normal/abnormal . URN PHENCYCLIDINE NONE DETECTED See_Comment ------ Fo r all drug (PCP) (test code = (NEG) screen an alytes PHENCURN) SCcutoff ------The scree n method provides only a preliminary analyticaltest result. A more specific alternate chemi wero method mustbe u sed in order to obtain a confirmed delmy tical result.Gas chromatography/ mass spectrometry (G C/MS) is thepreferred confirmatory me thod. Other chemical confirmationmet hods are available. Clin ical consideration andprofessional judgement latosha d be applied to any drug ofabuse test re sult, particularly wh en preliminary positiveresults are used. [Automate d message] The sy stem which generated this result transmit isai reference range : <25 NG/ML. The refe rence range was not u sed to interpret this result as normal/abnormal . BASIC METABOLIC [id number] 09:24:00 Test Item Value Reference Range Interpretation Comments SODIUM (test code = 143.0 mmol/L 133-144 N NA) POTASSIUM (test 3.6 mmol/L 3.5-5.1 N code = K) CHLORIDE (test code 107 mmol/L 95-105 H = CL) CARBON DIOXIDE 29 mmol/L 21-32 N (test code = CO2) ANION GAP (test 7.0 GAP calc 4.0-15.0 N code = GAP) GLUCOSE (test code 77 MG/DL 70-110 N = GLU) BLOOD UREA NITROGEN 19 MG/DL 7-18 H (test code = BUN) CREATININE (test 0.73 MG/DL 0.55-1.30 N Results may be code = CREAT) depressed if p atient is takingN-Acetylc ystei ne (NAC) and Metamizole (Dipyrone). CALCIUM (test code 8.8 MG/DL 8.5-10.1 N = CA) INDEX HEMOLYSIS 1 NORMAL <10 MG See_Comment [Automat ed message] (test code = Index/DL The system noa h HEMINDEX) generated this result transmit isai reference range : 1 NORMAL. The reference range was not used to interpret this result as normal/abnormal . INDEX ICTERIC (test 1 NORMAL <2 MG See_Comment [Auto mated message] code = ICTINDEX) Index/DL The system which generated this result transmit isai reference range : 1 NORMAL. The reference range was not used to interpret this result as normal/abnormal . INDEX LIPEMIA (test 1 NORMAL <50 MG See_Comment [Aut omated message] code = LIPINDEX) Index/DL The system which generated this result transmit isai reference range : 1 NORMAL. The reference range was not used to interpret this result as normal/abnormal . HEPATIC FUNCTION [id number] 09:24:00 Test Item Value Reference Range Interpretation Comments TOTAL PROTEIN (test code = PROT) 7.2 G/DL 6.4-8.2 N ALBUMIN (test code = ALB) 3.9 G/DL 3.4-5.0 N BILIRUBIN TOTAL (test code = BILT) 1.65 MG/DL 0.00-1.00 H BILIRUBIN DIRECT (test code = 0.48 MG/DL 0.00-0.30 H BILD) BILIRUBIN INDIRECT (test code = 1.17 MG/DL 0.2-1.3 N BILIND) SGOT/AST (test code = AST) 45 Unit/L 15-37 H SGPT/ALT (test code = ALT) 38 Unit/L 12-78 N ALKALINE PHOSPHATASE TOTAL (test 59 Unit/L 45-117 N code = ALKP) [id number] 09:24:00 Test Item Value Reference Range Interpretation Comments ACETAMINOPHEN (test code = ACET) <2.0 mcG/ML 10.0-30.0 L [id number] 09:24:00 Test Item Value Reference Range Interpretation Comments ALCOHOL (test code = < 3 MG/DL 0-10 N MEDICAL ALCOHOL ALC) RESULTS. SITE W PREPPED WITH BE TADINE. <10 MG/DL ARE CONSIDERED NEGA TIVE. >400 MG/DL MAY BE FATAL.RESULTS F OR MEDICAL USE ONL Y. NOT TO BE USED FOR FORENSIC PURPOSES. [id number] 07:55:00 Test Item Value Reference Range Interpretation Comments SALICYLATE (test code < 1.7 MG/DL See_Comment L RESULT <2.8 IS = SMITH) CONSIDERED NEGA TIVE FOR SALICYLATE. [Automated mess age] The system [employer] generated this result transmitted ref erence range: 2.8-20.0 THER. The reference r johan was not used to interpret this result as normal/abnor mal. CBC W/AUTO [id number] 07:10:00 Test Item Value Reference Range Interpretation Comments WHITE BLOOD CELL (test code = 5.2 K/mm3 4.1-12.1 N WBC) RED BLOOD CELL (test code = RBC) 4.10 M/mm3 3.8-5.5 N HEMOGLOBIN (test code = HGB) 13.5 G/DL 10.6-15.8 N HEMATOCRIT (test code = HCT) 39.6 % 31.8-47.4 N MEAN CELL VOLUME (test code = 96.6 fL 80.1-101.1 N MCV) MEAN CELL HGB (test code = MCH) 32.9 pg 25.3-35.3 N MEAN CELL HGB CONCETRATION (test 34.1 G/DL 32.7-35.1 N code = MCHC) RED CELL DISTRIBUTION WIDTH 13.0 % 12.2-16.4 N (test code = RDW) RED CELL DISTRIBUTION WIDTH 46.1 fL 35.1-43.9 H (test code = RDW-SD) PLATELET COUNT (test code = PLT) 212 K/mm3 155-337 N MEAN PLATELET VOLUME (test code 9.8 fL 7.6-10.4 N = MPV) GRANULOCYTE % (test code = GR%) 55.4 % 37.8-82.6 N IMMATURE GRANULOCYTE % (test 0.2 % 0.0-2.0 N code = IG%) LYMPHOCYTE % (test code = LY%) 28.4 % 14.1-45.4 N MONOCYTE % (test code = MO%) 15.2 % 2.5-11.7 H EOSINOPHIL % (test code = EO%) 0.4 % 0.0-6.2 N BASOPHIL % (test code = BA%) 0.4 % 0.0-2.6 N NUCLEATED RBC % (test code = 0.0 /100WBC% 0.0-1.0 N NRBC%) GRANULOCYTE # (test code = GR#) 2.89 k/mm3 2.0-13.7 N IMMATURE GRANULOCYTE # (test 0.01 K/mm3 0.00-0.03 N code = IG#) LYMPHOCYTE # (test code = LY#) 1.48 K/mm3 0.6-3.8 N MONOCYTE # (test code = MO#) 0.79 K/mm3 0.11-0.59 H EOSINOPHIL # (test code = EO#) 0.02 K/mm3 0.0-0.4 N BASOPHIL # (test code = BA#) 0.02 K/mm3 0.0-0.1 N NUCLEATED RBC # (test code = 0.00 K/mm3 0.00-0.05 N NRBC#) ECG 12 [id number] 22:52:05 Test Item Value Reference Range Interpretation Comments Ventricular rate (test code = 253) Atrial rate (test code = 255) MT interval (test code = 266) QRSD interval (test code = 260) QT interval (test code = 264) QTC interval (test code = 265) P axis 1 (test code = 267) QRS axis 1 (test code = 268) T wave axis (test code = 270) EKG impression (test Normal sinus code = 273) rhythm-Rightward axis-Borderline ECG-No previous ECGs available-Electronica lly Signed By Doron Judge MD ([id number]) on 11/26/2020 5:52:04 PM [id number] 07:28:23 Test Item Value Reference Range Interpretation Comments Urine culture (test SEE COMMENT Bacteriu winston screen code = [id number]) negative. [facility] METABOLIC [id number] 09:20:00 Test Item Value Reference Range Interpretation Comments SODIUM (test code = 137.0 mmol/L 133-144 N NA) POTASSIUM (test 3.2 mmol/L 3.5-5.1 L code = K) CHLORIDE (test code 105 mmol/L 95-105 N = CL) CARBON DIOXIDE 28 mmol/L 21-32 N (test code = CO2) ANION GAP (test 4.0 GAP calc 4.0-15.0 N code = GAP) GLUCOSE (test code 90 MG/DL 70-110 N = GLU) BLOOD UREA NITROGEN 10 MG/DL 7-18 N (test code = BUN) CREATININE (test 0.76 MG/DL 0.55-1.30 N Results may be code = CREAT) depressed if p atient is takingN-Acetylc ystei ne (NAC) and Metamizole (Dipyrone). CALCIUM (test code 8.4 MG/DL 8.5-10.1 L = CA) INDEX HEMOLYSIS 1 NORMAL <10 MG See_Comment [Automat ed message] (test code = Index/DL The system whic h HEMINDEX) generated this result transmit isai reference range : 1 NORMAL. The reference range was not used to interpret this result as normal/abnormal . INDEX ICTERIC (test 1 NORMAL <2 MG See_Comment [Auto mated message] code = ICTINDEX) Index/DL The system which generated this result transmit isai reference range : 1 NORMAL. The reference range was not used to interpret this result as normal/abnormal . INDEX LIPEMIA (test 1 NORMAL <50 MG See_Comment [Aut omated message] code = LIPINDEX) Index/DL The system which generated this result transmit isai reference range : 1 NORMAL. The reference range was not used to interpret this result as normal/abnormal . Specimen comments: [facility] [id number] 09:20:00 Test Item Value Reference Range Interpretation Comments TOTAL PROTEIN (test code = PROT) 7.2 G/DL 6.4-8.2 N ALBUMIN (test code = ALB) 3.7 G/DL 3.4-5.0 N BILIRUBIN TOTAL (test code = BILT) 0.81 MG/DL 0.00-1.00 N BILIRUBIN DIRECT (test code = 0.26 MG/DL 0.00-0.30 N BILD) BILIRUBIN INDIRECT (test code = 0.55 MG/DL 0.2-1.3 N BILIND) SGOT/AST (test code = AST) 46 Unit/L 15-37 H SGPT/ALT (test code = ALT) 56 Unit/L 12-78 N ALKALINE PHOSPHATASE TOTAL (test 82 Unit/L 45-117 N code = ALKP) Specimen comments: CCTHYROID STIMULATING [id number] 09:20:00 Test Item Value Reference Range Interpretation Comments THYROID STIMULATING HORMONE 0.619 mc IU/ML 0.340-4.820 N (test code = TSH) Specimen comments: [id number] 09:20:00 Test Item Value Reference Range Interpretation Comments TROPONIN-I < 0.015 NG/ML 0.000-0.045 N INTERPRET WITH CAUTION, THIS (test code = VALUE EXCEEDS T HE LOWER TROPI) LIMITOF LINEARI TY VERIFICATION ES TABLISHED BY THE LABORATORY. An elevated troponin value alone is not sufficient todi agnose a myocardial infa rction. Rather, the patient'sclinic al presentation (h istory, physical exam) and ECGshould be used in conj unction with troponin in the diagnostic evaluation of s uspected myocardial infa rction. Aserial samplin g protocol is recommended to facilitate theidentificati on of temporal change s in troponin levelscharacter istic of [place]. Specimen comments: [id number] 09:20:00 Test Item Value Reference Range Interpretation Comments ACETAMINOPHEN (test code = ACET) <2.0 mcG/ML 10.0-30.0 L Specimen comments: [id number] 09:20:00 Test Item Value Reference Range Interpretation Comments ALCOHOL (test code = < 3 MG/DL 0-10 N MEDICAL ALCOHOL ALC) RESULTS. SITE W PREPPED WITH BE TADINE. <10 MG/DL ARE CONSIDERED NEGA TIVE. >400 MG/DL MAY BE FATAL.RESULTS F OR MEDICAL USE ONL Y. NOT TO BE USED FOR FORENSIC PURPOSES. Specimen comments: [id number] 08:59:00 Test Item Value Reference Range Interpretation Comments SALICYLATE (test code < 1.7 MG/DL See_Comment L RESULT <2.8 IS = SMITH) CONSIDERED NEGA TIVE FOR SALICYLATE. [Automated mess age] The system [employer] generated this result transmitted ref erence range: 2.8-20.0 THER. The reference r johan was not used to interpret this result as normal/abnor mal. Specimen comments: [facility] METABOLIC [id number] 08:55:00 Test Item Value Reference Range Interpretation Comments SODIUM (test code = 137.0 mmol/L 133-144 N NA) POTASSIUM (test 3.2 mmol/L 3.5-5.1 L code = K) CHLORIDE (test code 105 mmol/L 95-105 N = CL) CARBON DIOXIDE 28 mmol/L 21-32 N (test code = CO2) ANION GAP (test 4.0 GAP calc 4.0-15.0 N code = GAP) GLUCOSE (test code 90 MG/DL 70-110 N = GLU) BLOOD UREA NITROGEN 10 MG/DL 7-18 N (test code = BUN) CREATININE (test 0.76 MG/DL 0.55-1.30 N Results may be code = CREAT) depressed if p atient is takingN-Acetylc ystei ne (NAC) and Metamizole (Dipyrone). CALCIUM (test code 8.4 MG/DL 8.5-10.1 L = CA) INDEX HEMOLYSIS 1 NORMAL <10 MG See_Comment [Automat ed message] (test code = Index/DL The system [employer] HEMINDEX) generated this result transmit isai reference range : 1 NORMAL. The reference range was not used to interpret this result as normal/abnormal . INDEX ICTERIC (test 1 NORMAL <2 MG See_Comment [Auto mated message] code = ICTINDEX) Index/DL The system which generated this result transmit isai reference range : 1 NORMAL. The reference range was not used to interpret this result as normal/abnormal . INDEX LIPEMIA (test 1 NORMAL <50 MG See_Comment [Aut omated message] code = LIPINDEX) Index/DL The system which generated this result transmit isai reference range : 1 NORMAL. The reference range was not used to interpret this result as normal/abnormal . Specimen comments: CCHEPATIC FUNCTION [id number] 08:55:00 Test Item Value Reference Range Interpretation Comments TOTAL PROTEIN (test code = PROT) 7.2 G/DL 6.4-8.2 N ALBUMIN (test code = ALB) 3.7 G/DL 3.4-5.0 N BILIRUBIN TOTAL (test code = BILT) 0.81 MG/DL 0.00-1.00 N BILIRUBIN DIRECT (test code = 0.26 MG/DL 0.00-0.30 N BILD) BILIRUBIN INDIRECT (test code = 0.55 MG/DL 0.2-1.3 N BILIND) SGOT/AST (test code = AST) 46 Unit/L 15-37 H SGPT/ALT (test code = ALT) 56 Unit/L 12-78 N ALKALINE PHOSPHATASE TOTAL (test 82 Unit/L 45-117 N code = ALKP) Specimen comments: CCTHYROID STIMULATING [id number] 08:55:00 Test Item Value Reference Range Interpretation Comments THYROID STIMULATING HORMONE 0.619 mc IU/ML 0.340-4.820 N (test code = TSH) Specimen comments: [id number] 08:55:00 Test Item Value Reference Range Interpretation Comments TROPONIN-I < 0.015 NG/ML 0.000-0.045 N INTERPRET WITH CAUTION, THIS (test code = VALUE EXCEEDS T HE LOWER TROPI) LIMITOF LINEARI TY VERIFICATION ES TABLISHED BY THE LABORATORY. An elevated troponin value alone is not sufficient todi agnose a myocardial infa rction. Rather, the patient'sclinic al presentation (h istory, physical exam) and ECGshould be used in conj unction with troponin in the diagnostic evaluation of s uspected myocardial infa rction. Aserial samplin g protocol is recommended to facilitate theidentificati on of temporal change s in troponin levelscharacter istic of [place]. Specimen comments: [id number] 08:55:00 Test Item Value Reference Range Interpretation Comments ACETAMINOPHEN (test code = ACET) mcG/ML 10.0-30.0 Specimen comments: [id number] 08:55:00 Test Item Value Reference Range Interpretation Comments ALCOHOL (test code = < 3 MG/DL 0-10 N MEDICAL ALCOHOL ALC) RESULTS. SITE W PREPPED WITH BE TADINE. <10 MG/DL ARE CONSIDERED NEGA TIVE. >400 MG/DL MAY BE FATAL.RESULTS F OR MEDICAL USE ONL Y. NOT TO BE USED FOR FORENSIC PURPOSES. Specimen comments: CCCBC W/AUTO [id number] 08:10:00 Test Item Value Reference Range Interpretation Comments WHITE BLOOD CELL (test code = 4.9 K/mm3 4.1-12.1 N WBC) RED BLOOD CELL (test code = RBC) 4.51 M/mm3 3.8-5.5 N HEMOGLOBIN (test code = HGB) 14.6 G/DL 10.6-15.8 N HEMATOCRIT (test code = HCT) 41.2 % 31.8-47.4 N MEAN CELL VOLUME (test code = 91.4 fL 80.1-101.1 N MCV) MEAN CELL HGB (test code = MCH) 32.4 pg 25.3-35.3 N MEAN CELL HGB CONCETRATION (test 35.4 G/DL 32.7-35.1 H code = MCHC) RED CELL DISTRIBUTION WIDTH 12.2 % 12.2-16.4 N (test code = RDW) RED CELL DISTRIBUTION WIDTH 40.5 fL 35.1-43.9 N (test code = RDW-SD) PLATELET COUNT (test code = PLT) 273 K/mm3 155-337 N MEAN PLATELET VOLUME (test code 9.6 fL 7.6-10.4 N = MPV) GRANULOCYTE % (test code = GR%) 46.7 % 37.8-82.6 N IMMATURE GRANULOCYTE % (test 0.6 % 0.0-2.0 N code = IG%) LYMPHOCYTE % (test code = LY%) 35.9 % 14.1-45.4 N MONOCYTE % (test code = MO%) 15.0 % 2.5-11.7 H EOSINOPHIL % (test code = EO%) 1.4 % 0.0-6.2 N BASOPHIL % (test code = BA%) 0.4 % 0.0-2.6 N NUCLEATED RBC % (test code = 0.0 /100WBC% 0.0-1.0 N NRBC%) GRANULOCYTE # (test code = GR#) 2.30 k/mm3 2.0-13.7 N IMMATURE GRANULOCYTE # (test 0.03 K/mm3 0.00-0.03 N code = IG#) LYMPHOCYTE # (test code = LY#) 1.77 K/mm3 0.6-3.8 N MONOCYTE # (test code = MO#) 0.74 K/mm3 0.11-0.59 H EOSINOPHIL # (test code = EO#) 0.07 K/mm3 0.0-0.4 N BASOPHIL # (test code = BA#) 0.02 K/mm3 0.0-0.1 N NUCLEATED RBC # (test code = 0.00 K/mm3 0.00-0.05 N NRBC#) Specimen comments: CC- XR CHEST 1 [id number] 03:12:00 [facility] : 1985 Sex: M FAX: Mahin Smallwood MD [phone] [place]: E St: REG FAX: Vilma Coker [phone] Patient Name: ARLINE RAO Unit No: [id number] EXAMS: CPT CODE: [id number] XR CHEST 1 V [id number] EXAM: - XR CHEST 1 V HISTORY: Chest pain. Covid positive. FINDINGS: Single AP view of the chest is provided. Heart size and vascularity are within normal limits. There is no evidence of a focal consolidation. There isno pleural effusion or pneumothorax. There is no definite acute osseous abnormality. IMPRESSION: No radiographic evidence of acute cardiopulmonary process. t 311 Reported and signed by: Santos Bobby MD CC: Vilma BENNETT Dictated Date/Time: 10/16/2020 (311)Technologist: kD Hale Transcribed Date/Time: 10/16/2020 (311) By: [email or web address] Orig Print D/T: S: 10/16/2020 (314) TATUM Mcarthur NAME: ARLINE RAO [address] [place] [address] PHYS: AQUILES.Vilma [place], [place] [address] : 1985 AGE: 35 SEX: M LOC: CASSANDRA PHONE #: [phone] EXAM DATE: 10/16/2020 STATUS: REG ER FAX #: [phone] RAD NO: DC Dt: PAGE 1 Signed ReportCOVID 19 Asymptomatic IH [id number] 06:58:00 Test Item Value Reference Range Interpretation Comments COVID 19 Asymptomatic IH AG (test POSITIVE Negative A code = COVNONPUIAG) BASIC METABOLIC [id number] 04:22:00 Test Item Value Reference Range Interpretation Comments SODIUM (test code = 139 mmol/L 137-145 N NA) POTASSIUM (test code 3.6 mmol/L 3.4-5.0 N = K) CHLORIDE (test code = 103 mmol/L 98-107 N CL) CARBON DIOXIDE (test 26 mmol/L 22-30 N code = CO2) GLUCOSE (test code = 119 mg/dL 74-106 H GLU) BLOOD UREA NITROGEN 15 mg/dL 9-20 N (test code = BUN) GLOMERULAR FILTRATION 117 >60 The es timated RATE (test code = glomerular filtration GFR) rate is compute d usingpatient ra ce, age (>18), sex, and serum creatinine. If anyof the needed data elements are mi ssing the Laboratory cannot compute an jr mation of the glomerul ar filtration rate . CREATININE (test code 0.8 mg/dL 0.7-1.3 N = CREAT) CALCIUM (test code = 8.3 mg/dL 8.4-10.2 L CA) LIVER FUNCTION [id number] 04:22:00 Test Item Value Reference Range Interpretation Comments TOTAL PROTEIN (test 7.6 g/dL 6.3-8.2 N code = PROT) "A positive bias may occur for patients taking Eltrombopag(a b one marrow stimulan t used to treat thrombocy topenia andaplastic anemia)." ALBUMIN (test code = 4.4 g/dL 3.5-5.0 N ALB) BILIRUBIN TOTAL 0.7 mg/dL 0.2-1.3 N "A positive bias may [...] REPLACEMENT ASS AY FOR DIRECTBILIRUBIN . BILIRUBIN 0.3 mg/dL 0-1.1 N UNCONJUGATED (test code = BILUNC) SGOT/AST (test code 52 U/L 15-46 H = AST) SGPT/ALT (test code 43 U/L 0-34 H = ALT) ALKALINE PHOSPHATASE 72 U/L 38-126 N (test code = ALKP) [id number] 04:22:00 Test Item Value Reference Range Interpretation Comments ALCOHOL (test code = < 10 mg/dL <10 ALC) ~~~~~~~~~~~~~~~ ~~~~~~~ ~~~~~~~~~~~~~~~ ~~~~~~~ ~~~~~~ RESU LTS ARE TO BE USED FOR MEDICAL PURPOSES ONLY.F OR LEGAL PURPOSES THE SPECIMEN MUST B E COLLECTED BY A CHAINOF CUSTODY. LEGAL TESTING IS NOT PERFORME D BY THIS FACILITY. ~~~~~~~~~~~~~~~ ~~~~~~~ ~~~~~~~~~~~~~~~ ~~~~~~~ ~~~~~~ CBC W/AUTO [id number] 04:08:00 Test Item Value Reference Range Interpretation Comments WHITE BLOOD CELL (test code = 2.6 x10 3/uL 5.0-12.0 L WBC) RED BLOOD CELL (test code = 4.65 x10 6/uL 4.70-6.10 L RBC) HEMOGLOBIN (test code = HGB) 15.1 g/dL 14.0-18.0 N HEMATOCRIT (test code = HCT) 45.4 % 37.0-49.0 N MEAN CELL VOLUME (test code = 98 fL 80-94 H MCV) MEAN CELL HGB (test code = MCH) 32.5 pg 27-31 H MEAN CELL HGB CONCENTRATION 33.3 g/dL 33-37 N (test code = MCHC) RED CELL DISTRIBUTION WIDTH 12.6 % 11.5-15.5 N (test code = RDW) PLATELET COUNT (test code = 180 x10 3/uL 130-400 N PLT) MEAN PLATELET VOLUME (test code 10.2 fL 9.4-16.4 N = MPV) NEUTROPHIL % (test code = NT%) 44.4 % 43-65 N IMMATURE GRANULOCYTE % (test 0.4 % 0.0-2.0 N code = IG%) LYMPHOCYTE % (test code = LY%) 37.9 % 20.5-45.5 N MONOCYTE % (test code = MO%) 16.1 % 5.5-11.7 H EOSINOPHIL % (test code = EO%) 0.4 % 0.9-2.9 L BASOPHIL % (test code = BA%) 0.8 % 0.2-1.0 N NUCLEATED RBC % (test code = 0.0 % 0-1.0 N NRBC%) NEUTROPHIL # (test code = NT#) 1.16 x10 3/uL 2.2-4.8 L IMMATURE GRANULOCYTE # (test 0.01 x10 3/uL 0-0.03 N code = IG#) LYMPHOCYTE # (test code = LY#) 0.99 x10 3/uL 1.3-2.9 L MONOCYTE # (test code = MO#) 0.42 x10 3/uL 0.3-0.8 N EOSINOPHIL # (test code = EO#) 0.01 x10 3/uL 0.0-0.2 N BASOPHIL # (test code = BA#) 0.02 x10 3/uL 0.0-0.1 N Coronavirus 2019 nCoV [id number] 17:19:00 Test Item Value Reference Range Interpretation Comments Coronavirus 2019 nCoV Bedside (test Negative Neg code = [id number]) [id number] 13:14:00 Test Item Value Reference Range Interpretation Comments SALICYLATE (test code < 1.7 MG/DL See_Comment L RESULT <2.8 IS = SMITH) CONSIDERED NEGA TIVE FOR SALICYLATE. [Automated mess age] The system [employer] generated this result transmitted ref erence range: 2.8-20.0 THER. The reference r johan was not used to interpret this result as normal/abnor mal. BASIC METABOLIC [id number] 13:03:00 Test Item Value Reference Range Interpretation Comments SODIUM (test code = 138.0 mmol/L 133-144 N NA) POTASSIUM (test 3.5 mmol/L 3.5-5.1 N code = K) CHLORIDE (test code 108 mmol/L 95-105 H = CL) CARBON DIOXIDE 30 mmol/L 21-32 N (test code = CO2) ANION GAP (test 0.0 GAP calc 4.0-15.0 L code = GAP) GLUCOSE (test code 83 MG/DL 70-110 N = GLU) BLOOD UREA NITROGEN 10 MG/DL 7-18 N (test code = BUN) CREATININE (test 0.76 MG/DL 0.55-1.30 N Results may be code = CREAT) depressed if p atient is takingN-Acetylc ystei ne (NAC) and Metamizole (Dipyrone). CALCIUM (test code 8.9 MG/DL 8.5-10.1 N = CA) INDEX HEMOLYSIS 1 NORMAL <10 MG See_Comment [Automat ed message] (test code = Index/DL The system [employer] HEMINDEX) generated this result transmit isai reference range : 1 NORMAL. The reference range was not used to interpret this result as normal/abnormal . INDEX ICTERIC (test 1 NORMAL <2 MG See_Comment [Auto mated message] code = ICTINDEX) Index/DL The system which generated this result transmit isai reference range : 1 NORMAL. The reference range was not used to interpret this result as normal/abnormal . INDEX LIPEMIA (test 1 NORMAL <50 MG See_Comment [Aut omated message] code = LIPINDEX) Index/DL The system which generated this result transmit isai reference range : 1 NORMAL. The reference range was not used to interpret this result as normal/abnormal . HEPATIC FUNCTION [id number] 13:03:00 Test Item Value Reference Range Interpretation Comments TOTAL PROTEIN (test code = PROT) 7.3 G/DL 6.4-8.2 N ALBUMIN (test code = ALB) 3.8 G/DL 3.4-5.0 N BILIRUBIN TOTAL (test code = BILT) 0.56 MG/DL 0.00-1.00 N BILIRUBIN DIRECT (test code = 0.19 MG/DL 0.00-0.30 N BILD) BILIRUBIN INDIRECT (test code = 0.37 MG/DL 0.2-1.3 N BILIND) SGOT/AST (test code = AST) 21 Unit/L 15-37 N SGPT/ALT (test code = ALT) 34 Unit/L 12-78 N ALKALINE PHOSPHATASE TOTAL (test 87 Unit/L 45-117 N code = ALKP) [id number] 13:03:00 Test Item Value Reference Range Interpretation Comments ACETAMINOPHEN (test code = ACET) <2.0 mcG/ML 10.0-30.0 L [id number] 13:03:00 Test Item Value Reference Range Interpretation Comments ALCOHOL (test code = < 3 MG/DL 0-10 N MEDICAL ALCOHOL ALC) RESULTS. SITE W PREPPED WITH BE TADINE. <10 MG/DL ARE CONSIDERED NEGA TIVE. >400 MG/DL MAY BE FATAL.RESULTS F OR MEDICAL USE ONL Y. NOT TO BE USED FOR FORENSIC PURPOSES. DRUGS OF ABUSE SCREEN [id number] 12:38:00 Test Item Value Reference Interpretation Comments Range URN COCAINE (test NONE DETECTED See_Comment [Automat ed message] The code = COCAURN) (NEG) system which generated SCcutoff this result tra nsmitted reference range : <300 NG/ML. The refe rence range was not u sed to interpret this result as normal/abnormal . URN CANNABINOIDS NONE DETECTED See_Comment [Automate d message] The (test code = (NEG) system which ge nerated CANNABURN) SCcutoff this result tra nsmitted reference range : <50 NG/ML. The refe rence range was not u sed to interpret this result as normal/abnormal . URN AMPHETAMINE NONE DETECTED See_Comment [Automated message] The (test code = (NEG) system which ge nerated AMPHETURN) SCcutoff this result tra nsmitted reference range : <1000 NG/ML. The refe rence range was not u sed to interpret this result as normal/abnormal . URN BARBITURATE NONE DETECTED See_Comment [Automated message] The (test code = (NEG) system which ge nerated BARBITURN) SCcutoff this result tra nsmitted reference range : <200 NG/ML. The refe rence range was not u sed to interpret this result as normal/abnormal . URN BENZODIAZEPINE NONE DETECTED See_Comment [Automa isai message] The (test code = (NEG) system which ge nerated BENZOURN) SCcutoff this result tra nsmitted reference range : <200 NG/ML. The refe rence range was not u sed to interpret this result as normal/abnormal . URN OPIATES (test NONE DETECTED See_Comment [Automat ed message] The code = OPIATURN) (NEG) system whic h generated SCcutoff this result tra nsmitted reference range : <300 NG/ML. The refe rence range was not u sed to interpret this result as normal/abnormal . URN PHENCYCLIDINE NONE DETECTED See_Comment ------ Fo r all drug (PCP) (test code = (NEG) screen an alytes PHENCURN) SCcutoff ------The scree n method provides only a preliminary analyticaltest result. A more specific alternate chemi wero method mustbe u sed in order to obtain a confirmed delmy tical result.Gas chromatography/ mass spectrometry (G C/MS) is thepreferred confirmatory me thod. Other chemical confirmationmet hods are available. Clin ical consideration andprofessional judgement shoul d be applied to any drug ofabuse test re sult, particularly wh en preliminary positiveresults are used. [Automate d message] The sy stem which generated this result transmit isai reference range : <25 NG/ML. The refe rence range was not u sed to interpret this result as normal/abnormal . BASIC METABOLIC [id number] 12:37:00 Test Item Value Reference Range Interpretation Comments SODIUM (test code = 138.0 mmol/L 133-144 N NA) POTASSIUM (test 3.5 mmol/L 3.5-5.1 N code = K) CHLORIDE (test code 108 mmol/L 95-105 H = CL) CARBON DIOXIDE 30 mmol/L 21-32 N (test code = CO2) ANION GAP (test 0.0 GAP calc 4.0-15.0 L code = GAP) GLUCOSE (test code 83 MG/DL 70-110 N = GLU) BLOOD UREA NITROGEN 10 MG/DL 7-18 N (test code = BUN) CREATININE (test 0.76 MG/DL 0.55-1.30 N Results may be code = CREAT) depressed if p atient is takingN-Acetylc ystei ne (NAC) and Metamizole (Dipyrone). CALCIUM (test code 8.9 MG/DL 8.5-10.1 N = CA) INDEX HEMOLYSIS 1 NORMAL <10 MG See_Comment [Automat ed message] (test code = Index/DL The system [employer] HEMINDEX) generated this result transmit isai reference range : 1 NORMAL. The reference range was not used to interpret this result as normal/abnormal . INDEX ICTERIC (test 1 NORMAL <2 MG See_Comment [Auto mated message] code = ICTINDEX) Index/DL The system which generated this result transmit isai reference range : 1 NORMAL. The reference range was not used to interpret this result as normal/abnormal . INDEX LIPEMIA (test 1 NORMAL <50 MG See_Comment [Aut omated message] code = LIPINDEX) Index/DL The system which generated this result transmit isai reference range : 1 NORMAL. The reference range was not used to interpret this result as normal/abnormal . HEPATIC FUNCTION [id number] 12:37:00 Test Item Value Reference Range Interpretation Comments TOTAL PROTEIN (test code = PROT) 7.3 G/DL 6.4-8.2 N ALBUMIN (test code = ALB) 3.8 G/DL 3.4-5.0 N BILIRUBIN TOTAL (test code = BILT) 0.56 MG/DL 0.00-1.00 N BILIRUBIN DIRECT (test code = 0.19 MG/DL 0.00-0.30 N BILD) BILIRUBIN INDIRECT (test code = 0.37 MG/DL 0.2-1.3 N BILIND) SGOT/AST (test code = AST) 21 Unit/L 15-37 N SGPT/ALT (test code = ALT) 34 Unit/L 12-78 N ALKALINE PHOSPHATASE TOTAL (test 87 Unit/L 45-117 N code = ALKP) [id number] 12:37:00 Test Item Value Reference Range Interpretation Comments ACETAMINOPHEN (test code = ACET) mcG/ML 10.0-30.0 [id number] 12:37:00 Test Item Value Reference Range Interpretation Comments ALCOHOL (test code = < 3 MG/DL 0-10 N MEDICAL ALCOHOL ALC) RESULTS. SITE W PREPPED WITH BE TADINE. <10 MG/DL ARE CONSIDERED NEGA TIVE. >400 MG/DL MAY BE FATAL.RESULTS F OR MEDICAL USE ONL Y. NOT TO BE USED FOR FORENSIC PURPOSES. CBC W/AUTO [id number] 12:02:00 Test Item Value Reference Range Interpretation Comments WHITE BLOOD CELL (test code = 4.4 K/mm3 4.1-12.1 N WBC) RED BLOOD CELL (test code = RBC) 4.92 M/mm3 3.8-5.5 N HEMOGLOBIN (test code = HGB) 16.1 G/DL 10.6-15.8 H HEMATOCRIT (test code = HCT) 48.3 % 31.8-47.4 H MEAN CELL VOLUME (test code = 98.2 fL 80.1-101.1 N MCV) MEAN CELL HGB (test code = MCH) 32.7 pg 25.3-35.3 N MEAN CELL HGB CONCETRATION (test 33.3 G/DL 32.7-35.1 N code = MCHC) RED CELL DISTRIBUTION WIDTH 13.0 % 12.2-16.4 N (test code = RDW) RED CELL DISTRIBUTION WIDTH 46.8 fL 35.1-43.9 H (test code = RDW-SD) PLATELET COUNT (test code = PLT) 241 K/mm3 155-337 N MEAN PLATELET VOLUME (test code 9.6 fL 7.6-10.4 N = MPV) GRANULOCYTE % (test code = GR%) 55.9 % 37.8-82.6 N IMMATURE GRANULOCYTE % (test 0.5 % 0.0-2.0 N code = IG%) LYMPHOCYTE % (test code = LY%) 33.2 % 14.1-45.4 N MONOCYTE % (test code = MO%) 9.4 % 2.5-11.7 N EOSINOPHIL % (test code = EO%) 0.5 % 0.0-6.2 N BASOPHIL % (test code = BA%) 0.5 % 0.0-2.6 N NUCLEATED RBC % (test code = 0.0 /100WBC% 0.0-1.0 N NRBC%) GRANULOCYTE # (test code = GR#) 2.45 k/mm3 2.0-13.7 N IMMATURE GRANULOCYTE # (test 0.02 K/mm3 0.00-0.03 N code = IG#) LYMPHOCYTE # (test code = LY#) 1.45 K/mm3 0.6-3.8 N MONOCYTE # (test code = MO#) 0.41 K/mm3 0.11-0.59 N EOSINOPHIL # (test code = EO#) 0.02 K/mm3 0.0-0.4 N BASOPHIL # (test code = BA#) 0.02 K/mm3 0.0-0.1 N NUCLEATED RBC # (test code = 0.00 K/mm3 0.00-0.05 N NRBC#) [id number] 23:33:00 Test Item Value Reference Range Interpretation Comments TROPONIN-I < 0.015 NG/ML 0.000-0.045 N INTERPRET WITH CAUTION, THIS (test code = VALUE EXCEEDS T HE LOWER TROPI) LIMITOF LINEARI TY VERIFICATION ES TABLISHED BY THE LABORATORY. An elevated troponin value alone is not sufficient todi agnose a myocardial infa rction. Rather, the patient'sclinic al presentation (h istory, physical exam) and ECGshould be used in conj unction with troponin in the diagnostic evaluation of s uspected myocardial infa rction. Aserial samplin g protocol is recommended to facilitate theidentificati on of temporal change s in troponin levelscharacter istic of [place]. B-TYPE NATRIURETIC [id number] 19:24:00 Test Item Value Reference Range Interpretation Comments B-TYPE NATRIURETIC PEPTIDE < 30.00 PG/ML 0.00-100.00 N (test code = BNP) URINALYSIS [id number] 15:43:00 Test Item Value Reference Range Interpretation Comments UA COLOR (test code = DESCRIPT YELLOW COLU) UA APPEARANCE (test DESCRIPT CLEAR code = APPU) UA GLUCOSE DIPSTICK mg/dL See_Comment [Automa isai message] (test code = DGLUU) The syst em which generated this result transmitted ref erence range: 0 (NATHALY L). The reference r johan was not used to interpret this result as normal/abnor mal. UA BILIRUBIN DIPSTICK mg/dL See_Comment [Auto mated message] (test code = BILU) The syste m which generated this result transmitted ref erence range: (NEG) 0. The reference range was not used to int erpret this result as normal/abnormal . UA KETONE DIPSTICK mg/dL See_Comment [Automat ed message] (test code = KETU) The syste m which generated this result transmitted ref erence range: (NEG) 0. The reference range was not used to int erpret this result as normal/abnormal . UA SPECIFIC GRAVITY SG 1.001-1.035 (test code = SGU) UA BLOOD DIPSTICK (test mg/dL See_Comment [Au tomated message] code = NARESH) The system whic h generated this result transmitted ref erence range: 0 (NEG). The reference range was not used to int erpret this result as normal/abnormal . UA PH DIPSTICK (test pH UNITS 4.6-8.0 code = MIKE) UA PROTEIN DIPSTICK mg/dL See_Comment [Automa isai message] (test code = PROU) The syste m which generated this result transmitted ref erence range: <30 (1+) . The reference range was not used to int erpret this result as normal/abnormal . UA UROBILINIOGEN mg/Dl See_Comment [Automated message] DIPSTICK (test code = The sy stem which URO) generated this result transmitted ref erence range: <2.0 (1+ ). The reference range was not used to int erpret this result as normal/abnormal . UA NITRITE DIPSTICK SCREEN NEG (test code = SHERIF) UA LEUKOCYTE ESTERASE Leuk/mcL See_Comment [Auto mated message] DIPSTICK (test code = The sy stem which LEUU) generated this result transmitted ref erence range: (NEG) 0. The reference range was not used to int erpret this result as normal/abnormal . UA RBC (test code = #RBC/HPF 0-3 RBCU) PENDING RECEIPT OF SPECIMEN PER a.STF.VT15 AT 08/11/20 1302DRUGS OF ABUSE SCREEN [id number] 15:43:00 Test Item Value Reference Interpretation Comments Range URN COCAINE (test POSITIVE See_Comment A [Automate d message] The code = COCAURN) SCcutoff system which generated this result tra nsmitted reference range : <300 NG/ML. The refe rence range was not u sed to interpret this result as normal/abnormal . URN CANNABINOIDS NONE DETECTED See_Comment [Automate d message] The (test code = (NEG) system which ge nerated CANNABURN) SCcutoff this result tra nsmitted reference range : <50 NG/ML. The refe rence range was not u sed to interpret this result as normal/abnormal . URN AMPHETAMINE POSITIVE See_Comment A [Automated message] The (test code = SCcutoff system which ge nerated AMPHETURN) this result tra nsmitted reference range : <1000 NG/ML. The refe rence range was not u sed to interpret this result as normal/abnormal . URN BARBITURATE NONE DETECTED See_Comment [Automated message] The (test code = (NEG) system which ge nerated BARBITURN) SCcutoff this result tra nsmitted reference range : <200 NG/ML. The refe rence range was not u sed to interpret this result as normal/abnormal . URN BENZODIAZEPINE NONE DETECTED See_Comment [Automa isai message] The (test code = (NEG) system which ge nerated BENZOURN) SCcutoff this result tra nsmitted reference range : <200 NG/ML. The refe rence range was not u sed to interpret this result as normal/abnormal . URN OPIATES (test NONE DETECTED See_Comment [Automat ed message] The code = OPIATURN) (NEG) system whic h generated SCcutoff this result tra nsmitted reference range : <300 NG/ML. The refe rence range was not u sed to interpret this result as normal/abnormal . URN PHENCYCLIDINE NONE DETECTED See_Comment ------ Fo r all drug (PCP) (test code = (NEG) screen an alytes PHENCURN) SCcutoff ------The scree n method provides only a preliminary analyticaltest result. A more specific alternate chemi wero method mustbe u sed in order to obtain a confirmed delmy tical result.Gas chromatography/ mass spectrometry (G C/MS) is thepreferred confirmatory me thod. Other chemical confirmationmet hods are available. Clin ical consideration andprofessional judgement shoul d be applied to any drug ofabuse test re sult, particularly wh en preliminary positiveresults are used. [Automate d message] The sy stem which generated this result transmit isai reference range : <25 NG/ML. The refe rence range was not u sed to interpret this result as normal/abnormal . PENDING RECEIPT OF SPECIMEN PER a.STF.VT15 AT 08/11/20 1302URINALYSIS COMPLETE 2020-08-11 15:43:00 Test Item Value Reference Range Interpretation Comments UA COLOR (test code = LIGHT-YELLOW YELLOW COLU) DESCRIPT UA APPEARANCE (test CLEAR DESCRIPT CLEAR code = APPU) UA GLUCOSE DIPSTICK 30 (TRACE) See_Comment A [Automa isai (test code = DGLUU) mg/dL message] The system which generated this result transmit isai reference range : 0 (NORMAL). The reference range was not used to interpret this result as normal/abnormal . UA BILIRUBIN DIPSTICK NEGATIVE (0.0) See_Comment [Au tomated (test code = BILU) mg/dL message] The system which generated this result transmit isia reference range : (NEG) 0. The reference range was not used to interpret this result as normal/abnormal . UA KETONE DIPSTICK 10 (1+) mg/dL See_Comment A [Automa isai (test code = KETU) message] The system which generated this result transmit isai reference range : (NEG) 0. The reference range was not used to interpret this result as normal/abnormal . UA SPECIFIC GRAVITY 1.026 SG 1.001-1.035 (test code = SGU) UA BLOOD DIPSTICK NEGATIVE (0.00) See_Comment [Autom ated (test code = NARESH) mg/dL message] T he system which generated this result transmit isai reference range : 0 (NEG). The reference range was not used to interpret this result as normal/abnormal . UA PH DIPSTICK (test 6.5 pH UNITS 4.6-8.0 code = MIKE) UA PROTEIN DIPSTICK 10 (TRACE) See_Comment A [Automa isai (test code = PROU) mg/dL message] The system which generated this result transmit isai reference range : <30 (1+). The reference range was not used to interpret this result as normal/abnormal . UA UROBILINIOGEN 2 (1+) mg/Dl See_Comment A [Automated DIPSTICK (test code = messag e] The URO) system which generated this result transmit isai reference range : <2.0 (1+). The reference range was not used to interpret this result as normal/abnormal . UA NITRITE DIPSTICK NEGATIVE (0) NEG (test code = SHERIF) SCREEN UA LEUKOCYTE ESTERASE NEGATIVE (0) See_Comment [Auto mated DIPSTICK (test code = Leuk/mcL messag e] The LEUU) system which generated this result transmit isai reference range : (NEG) 0. The reference range was not used to interpret this result as normal/abnormal . UA WBC (test code = 0-3 #WBC/HPF 0-3 WBCU) UA RBC (test code = NONE #RBC/HPF 0-3 RBCU) UA SQUAMOUS CELLS RARE >0 /UL NONE-SQepi (test code = SQU) UA MUCUS (test code = MANY /LPF NONE A MUCU) PENDING RECEIPT OF SPECIMEN PER a.[facility].VT15 AT 08/11/20 1302DRUGS OF ABUSE SCREEN [id number] 15:43:00 Test Item Value Reference Interpretation Comments Range URN COCAINE (test POSITIVE See_Comment A [Automate d message] The code = COCAURN) SCcutoff system which generated this result tra nsmitted reference range : <300 NG/ML. The refe rence range was not u sed to interpret this result as normal/abnormal . URN CANNABINOIDS NONE DETECTED See_Comment [Automate d message] The (test code = (NEG) system which ge nerated CANNABURN) SCcutoff this result tra nsmitted reference range : <50 NG/ML. The refe rence range was not u sed to interpret this result as normal/abnormal . URN AMPHETAMINE POSITIVE See_Comment A [Automated message] The (test code = SCcutoff system which ge nerated AMPHETURN) this result tra nsmitted reference range : <1000 NG/ML. The refe rence range was not u sed to interpret this result as normal/abnormal . URN BARBITURATE NONE DETECTED See_Comment [Automated message] The (test code = (NEG) system which ge nerated BARBITURN) SCcutoff this result tra nsmitted reference range : <200 NG/ML. The refe rence range was not u sed to interpret this result as normal/abnormal . URN BENZODIAZEPINE NONE DETECTED See_Comment [Automa isai message] The (test code = (NEG) system which ge nerated BENZOURN) SCcutoff this result tra nsmitted reference range : <200 NG/ML. The refe rence range was not u sed to interpret this result as normal/abnormal . URN OPIATES (test NONE DETECTED See_Comment [Automat ed message] The code = OPIATURN) (NEG) system whic h generated SCcutoff this result tra nsmitted reference range : <300 NG/ML. The refe rence range was not u sed to interpret this result as normal/abnormal . URN PHENCYCLIDINE NONE DETECTED See_Comment ------ Fo r all drug (PCP) (test code = (NEG) screen an alytes PHENCURN) SCcutoff ------The scree n method provides only a preliminary analyticaltest result. A more specific alternate chemi wero method mustbe u sed in order to obtain a confirmed delmy tical result.Gas chromatography/ mass spectrometry (G C/MS) is thepreferred confirmatory me thod. Other chemical confirmationmet hods are available. Clin ical consideration andprofessional judgement shoul d be applied to any drug ofabuse test re sult, particularly wh en preliminary positiveresults are used. [Automate d message] The sy stem which generated this result transmit isai reference range : <25 NG/ML. The refe rence range was not u sed to interpret this result as normal/abnormal . PENDING RECEIPT OF SPECIMEN PER F.VT15 AT 08/11/20 1302- XR HAND 3 + V LT 2020-08-11 13:43:00 [facility] : 1985 Sex: M FAX: Lan Agee MD [phone] [place]: E St: PRE Patient Name: ARLINE RAO Unit No: [id number] EXAMS: CPT CODE: [id number] XR HAND 3 + V LT [id number] EXAM: - XR HAND 3 + V LT HISTORY: Left hand swollen and tender laterally H49 COMPARISON: None available time of interpretation. FINDINGS: PA, oblique, and lateral viewof the left hand is provided. External wire overlies the distal tuft of the second digit, obscuring visualization. There is some cortical irregularity about the fifth metacarpal carpal head, which may represent a nondisplaced fracture of indeterminate chronicity. No other findings to suggest no acute fracture or malalignment. The joint spaces are preserved. No radiopaque foreign body in the soft tissues. IMPRESSION: Cortical irregularity about the fifth metacarpal carpal head, which may represent a nondisplaced fracture of indeterminate chronicity. Correlate clinically for a history oftrauma and point tenderness on physical exam. at 1343 Reported and signed by: Merle Gold MD CC: Lan Cooper MD Dictated Date/Time: 08/11/2020 (9193)Technologist: Damaris Martinez Transcribed Date/Time: 08/11/2020 (1343) By: [email or web address] Orig Print D/T: S: 08/11/2020 (2291) TATUM Mcarthur NAME: RAOEDMUND [address] [place]: [place], [place] [address] : 1985 AGE: 34 SEX: M LOC: CASSANDRA PHONE #: [phone] EXAM DATE: 08/11/2020 STATUS: PRE ER FAX #: [phone] RAD NO: DC Dt: PAGE 1 Signed Report- XR CHEST 1 [id number] 13:41:00 [facility] : 1985 Sex: M FAX: Lan Agee MD [phone] [place]: E St: PRE Patient Name: ARLINE RAO Unit No: [id number] EXAMS: CPT CODE: [id number] XR CHEST 1 V 61602 EXAM: - XR CHEST 1 V Location code:C3 HISTORY: Chest pain COMPARISON: None available time of interpretation. FINDINGS: Frontal view of the chest is submitted. Heart size and vascularity are within normal limits. The lungs are clear of focal consolidation. No effusion or evidence of pneumothorax.. No acute osseous pathology. IMPRESSION 1. No radiographic evidence of acute cardiopulmonary process. at 1341 Reported and signed by: Merle Gold MD CC: Lan Cooper MD Dictated Date/Time: 08/11/2020 (134)Technologist: Damaris Martinez Transcribed Date/Time: 08/11/2020 (134) By: [email or web address] Orig Print D/T: S: 08/11/2020 (6423) [facility] Lyubov NAME: ARLINE RAO [address] [place] [address] PHYS: Lan [place], [place] [address] : 1985 AGE: 34 SEX: M LOC: CASSANDRA PHONE #: [phone] EXAM DATE: 08/11/2020 STATUS: PRE ER FAX #: [phone] RAD NO: DC Dt: PAGE 1 Signed ReportCOMPREHENSIVE METABOLIC [id number] 12:50:00 Test Item Value Reference Range Interpretation Comments SODIUM (test code = 138.0 mmol/L 133-144 N NA) POTASSIUM (test code 3.8 mmol/L 3.5-5.1 N = K) CHLORIDE (test code 108 mmol/L 95-105 H = CL) CARBON DIOXIDE (test 26 mmol/L 21-32 N code = CO2) ANION GAP (test code 4.0 GAP calc 4.0-15.0 N = GAP) GLUCOSE (test code = 92 MG/DL 70-110 N GLU) BLOOD UREA NITROGEN 11 MG/DL 7-18 N (test code = BUN) GLOMERULAR 138 estGFR >60 The estimated FILTRATION RATE glomerular [...] lize different calculationpara meter s. CREATININE (test 0.66 MG/DL 0.55-1.30 N Results may be code = CREAT) depressed if p atient is takingN-Acetylc ystei ne (NAC) and Metamizole (Dipyrone). TOTAL PROTEIN (test 6.3 G/DL 6.4-8.2 L code = PROT) ALBUMIN (test code = 3.3 G/DL 3.4-5.0 L ALB) ALBUMIN/GLOBULIN 1.1 RATIO 1.2-2.2 L RATIO (test code = A/G) CALCIUM (test code = 8.5 MG/DL 8.5-10.1 N CA) BILIRUBIN TOTAL 0.69 MG/DL 0.00-1.00 N (test code = BILT) BILIRUBIN DIRECT 0.24 MG/DL 0.00-0.30 N (test code = BILD) BILIRUBIN INDIRECT 0.45 MG/DL 0.2-1.3 N (test code = BILIND) SGOT/AST (test code 26 Unit/L 15-37 N = AST) SGPT/ALT (test code 30 Unit/L 12-78 N = ALT) ALKALINE PHOSPHATASE 98 Unit/L 45-117 N TOTAL (test code = ALKP) INDEX HEMOLYSIS 1 NORMAL <10 See_Comment [Automated message] (test code = MG Index/DL The system [employer] HEMINDEX) generated this result transmit isai reference range : 1 NORMAL. The reference range was not used to interpret this result as normal/abnormal . INDEX ICTERIC (test 1 NORMAL <2 MG See_Comment [Auto mated message] code = ICTINDEX) Index/DL The system which generated this result transmit isai reference range : 1 NORMAL. The reference range was not used to interpret this result as normal/abnormal . INDEX LIPEMIA (test 1 NORMAL <50 See_Comment [Automa isai message] code = LIPINDEX) MG Index/DL The system which generated this result transmit isai reference range : 1 NORMAL. The reference range was not used to interpret this result as normal/abnormal . [id number] 12:50:00 Test Item Value Reference Range Interpretation Comments TROPONIN-I < 0.015 NG/ML 0.000-0.045 N INTERPRET WITH CAUTION, THIS (test code = VALUE EXCEEDS T HE LOWER TROPI) LIMITOF LINEARI TY VERIFICATION ES TABLISHED BY THE LABORATORY. An elevated troponin value alone is not sufficient todi agnose a myocardial infa rction. Rather, the patient'sclinic al presentation (h istory, physical exam) and ECGshould be used in conj unction with troponin in the diagnostic evaluation of s uspected myocardial infa rction. Aserial samplin g protocol is recommended to facilitate theidentificati on of temporal change s in troponin levelscharacter istic of [place]. [id number] 12:50:00 Test Item Value Reference Range Interpretation Comments ACETAMINOPHEN (test code = ACET) < 2.0 mcG/ML 10.0-30.0 L [id number] 12:50:00 Test Item Value Reference Range Interpretation Comments ALCOHOL (test code = <3 MG/DL 0-10 N MEDICAL ALCOHOL RESULTS. ALC) SITE WAS PREPPE D WITH BETADINE. <10 MG/DL ARE CONSI DERED NEGATIVE. >400 MG/DL MAY BE FATAL.RESULTS F OR MEDICAL USE ONL Y. NOT TO BE USED FOR FOR ENSIC PURPOSES. [id number] 12:39:00 Test Item Value Reference Range Interpretation Comments SALICYLATE (test code 3.1 MG/DL See_Comment N [Auto mated message] = SMITH) The system [employer] generated this result transmitted ref erence range: 2.8-20.0 THER. The reference r johan was not used to interpret this result as normal/abnor mal. COMPREHENSIVE METABOLIC [id number] 12:39:00 Test Item Value Reference Range Interpretation Comments SODIUM (test code = 138.0 mmol/L 133-144 N NA) POTASSIUM (test code 3.8 mmol/L 3.5-5.1 N = K) CHLORIDE (test code 108 mmol/L 95-105 H = CL) CARBON DIOXIDE (test 26 mmol/L 21-32 N code = CO2) ANION GAP (test code 4.0 GAP calc 4.0-15.0 N = GAP) GLUCOSE (test code = 92 MG/DL 70-110 N GLU) BLOOD UREA NITROGEN 11 MG/DL 7-18 N (test code = BUN) GLOMERULAR 138 estGFR >60 The estimated FILTRATION RATE glomerular [...] lize different calculationpara meter s. CREATININE (test 0.66 MG/DL 0.55-1.30 N Results may be code = CREAT) depressed if p atient is takingN-Acetylc ystei ne (NAC) and Metamizole (Dipyrone). TOTAL PROTEIN (test 6.3 G/DL 6.4-8.2 L code = PROT) ALBUMIN (test code = 3.3 G/DL 3.4-5.0 L ALB) ALBUMIN/GLOBULIN 1.1 RATIO 1.2-2.2 L RATIO (test code = A/G) CALCIUM (test code = 8.5 MG/DL 8.5-10.1 N CA) BILIRUBIN TOTAL 0.69 MG/DL 0.00-1.00 N (test code = BILT) BILIRUBIN DIRECT 0.24 MG/DL 0.00-0.30 N (test code = BILD) BILIRUBIN INDIRECT 0.45 MG/DL 0.2-1.3 N (test code = BILIND) SGOT/AST (test code 26 Unit/L 15-37 N = AST) SGPT/ALT (test code 30 Unit/L 12-78 N = ALT) ALKALINE PHOSPHATASE 98 Unit/L 45-117 N TOTAL (test code = ALKP) INDEX HEMOLYSIS 1 NORMAL <10 See_Comment [Automated message] (test code = MG Index/DL The system [email or web address]) generated this result transmit isai reference range : 1 NORMAL. The reference range was not used to interpret this result as normal/abnormal . INDEX ICTERIC (test 1 NORMAL <2 MG See_Comment [Auto mated message] code = ICTINDEX) Index/DL The system which generated this result transmit isai reference range : 1 NORMAL. The reference range was not used to interpret this result as normal/abnormal . INDEX LIPEMIA (test 1 NORMAL <50 See_Comment [Automa isai message] code = LIPINDEX) MG Index/DL The system which generated this result transmit isai reference range : 1 NORMAL. The reference range was not used to interpret this result as normal/abnormal . [id number] 12:39:00 Test Item Value Reference Range Interpretation Comments TROPONIN-I < 0.015 NG/ML 0.000-0.045 N INTERPRET WITH CAUTION, THIS (test code = VALUE EXCEEDS T HE LOWER TROPI) LIMITOF LINEARI TY VERIFICATION ES TABLISHED BY THE LABORATORY. An elevated troponin value alone is not sufficient todi agnose a myocardial infa rction. Rather, the patient'sclinic al presentation (h istory, physical exam) and ECGshould be used in conj unction with troponin in the diagnostic evaluation of s uspected myocardial infa rction. Aserial samplin g protocol is recommended to facilitate theidentificati on of temporal change s in troponin levelscharacter istic of [place]. [id number] 12:39:00 Test Item Value Reference Range Interpretation Comments ACETAMINOPHEN (test code = ACET) < 2.0 mcG/ML 10.0-30.0 L [id number] 12:39:00 Test Item Value Reference Range Interpretation Comments ALCOHOL (test code = ALC) MG/DL 0-10 COMPREHENSIVE METABOLIC [id number] 12:34:00 Test Item Value Reference Range Interpretation Comments SODIUM (test code = 138.0 mmol/L 133-144 N NA) POTASSIUM (test code 3.8 mmol/L 3.5-5.1 N = K) CHLORIDE (test code 108 mmol/L 95-105 H = CL) CARBON DIOXIDE (test 26 mmol/L 21-32 N code = CO2) ANION GAP (test code 4.0 GAP calc 4.0-15.0 N = GAP) GLUCOSE (test code = 92 MG/DL 70-110 N GLU) BLOOD UREA NITROGEN 11 MG/DL 7-18 N (test code = BUN) GLOMERULAR 138 estGFR >60 The estimated FILTRATION RATE glomerular [...] lize different calculationpara meter s. CREATININE (test 0.66 MG/DL 0.55-1.30 N Results may be code = CREAT) depressed if p atient is takingN-Acetylc ystei ne (NAC) and Metamizole (Dipyrone). TOTAL PROTEIN (test G/DL 6.4-8.2 code = PROT) ALBUMIN (test code = 3.3 G/DL 3.4-5.0 L ALB) ALBUMIN/GLOBULIN RATIO 1.2-2.2 RATIO (test code = A/G) CALCIUM (test code = 8.5 MG/DL 8.5-10.1 N CA) BILIRUBIN TOTAL MG/DL 0.00-1.00 (test code = BILT) BILIRUBIN DIRECT 0.24 MG/DL 0.00-0.30 N (test code = BILD) BILIRUBIN INDIRECT MG/DL 0.2-1.3 (test code = BILIND) SGOT/AST (test code 26 Unit/L 15-37 N = AST) SGPT/ALT (test code 30 Unit/L 12-78 N = ALT) ALKALINE PHOSPHATASE Unit/L 45-117 TOTAL (test code = ALKP) INDEX HEMOLYSIS 1 NORMAL <10 See_Comment [Automated message] (test code = MG Index/DL The system [employer] HEMINDEX) generated this result transmit isai reference range : 1 NORMAL. The reference range was not used to interpret this result as normal/abnormal . INDEX ICTERIC (test 1 NORMAL <2 MG See_Comment [Auto mated message] code = ICTINDEX) Index/DL The system which generated this result transmit isai reference range : 1 NORMAL. The reference range was not used to interpret this result as normal/abnormal . INDEX LIPEMIA (test 1 NORMAL <50 See_Comment [Automa isai message] code = LIPINDEX) MG Index/DL The system which generated this result transmit isai reference range : 1 NORMAL. The reference range was not used to interpret this result as normal/abnormal . [id number] 12:34:00 Test Item Value Reference Range Interpretation Comments TROPONIN-I (test code = TROPI) NG/ML 0.000-0.045 [id number] 12:34:00 Test Item Value Reference Range Interpretation Comments ACETAMINOPHEN (test code = ACET) < 2.0 mcG/ML 10.0-30.0 L [id number] 12:34:00 Test Item Value Reference Range Interpretation Comments ALCOHOL (test code = ALC) MG/DL 0-10 CBC W/AUTO [id number] 12:23:00 Test Item Value Reference Range Interpretation Comments WHITE BLOOD CELL (test code = 3.7 K/mm3 4.1-12.1 L WBC) RED BLOOD CELL (test code = RBC) 4.46 M/mm3 3.8-5.5 N HEMOGLOBIN (test code = HGB) 14.6 G/DL 10.6-15.8 N HEMATOCRIT (test code = HCT) 44.4 % 31.8-47.4 N MEAN CELL VOLUME (test code = 99.6 fL 80.1-101.1 N MCV) MEAN CELL HGB (test code = MCH) 32.7 pg 25.3-35.3 N MEAN CELL HGB CONCETRATION (test 32.9 G/DL 32.7-35.1 N code = MCHC) RED CELL DISTRIBUTION WIDTH 13.8 % 12.2-16.4 N (test code = RDW) RED CELL DISTRIBUTION WIDTH 49.8 fL 35.1-43.9 H (test code = RDW-SD) PLATELET COUNT (test code = PLT) 234 K/mm3 155-337 N MEAN PLATELET VOLUME (test code 9.6 fL 7.6-10.4 N = MPV) GRANULOCYTE % (test code = GR%) 45.3 % 37.8-82.6 N IMMATURE GRANULOCYTE % (test 0.8 % 0.0-2.0 N code = IG%) LYMPHOCYTE % (test code = LY%) 40.8 % 14.1-45.4 N MONOCYTE % (test code = MO%) 12.1 % 2.5-11.7 H EOSINOPHIL % (test code = EO%) 0.5 % 0.0-6.2 N BASOPHIL % (test code = BA%) 0.5 % 0.0-2.6 N NUCLEATED RBC % (test code = 0.0 /100WBC% 0.0-1.0 N NRBC%) GRANULOCYTE # (test code = GR#) 1.65 k/mm3 2.0-13.7 L IMMATURE GRANULOCYTE # (test 0.03 K/mm3 0.00-0.03 N code = IG#) LYMPHOCYTE # (test code = LY#) 1.49 K/mm3 0.6-3.8 N MONOCYTE # (test code = MO#) 0.44 K/mm3 0.11-0.59 N EOSINOPHIL # (test code = EO#) 0.02 K/mm3 0.0-0.4 N BASOPHIL # (test code = BA#) 0.02 K/mm3 0.0-0.1 N NUCLEATED RBC # (test code = 0.00 K/mm3 0.00-0.05 N NRBC#) CBC WITH [id number] 09:49:19 Test Item Value Reference Range Interpretation Comments WBC (test code = See_Comment [Automated 6690-2) message] The sy stem which generated this result transmitted reference range : 4.20 - 10.70 10*3/?L. The reference range was not used to interpret this result as normal/abnormal . RBC (test code = See_Comment L [Automated 789-8) message] The sy stem which generated this result transmitted reference range : 4.26 - 5.52 10*6/?L. The reference range was not used to interpret this result as normal/abnormal . HGB (test code = 13.7 g/dL 12.2-16.4 718-7) HCT (test code = 38.6 % 38.4-49.3 4544-3) MCV (test code = 93.9 fL 81.7-95.6 787-2) MCH (test code = 33.3 pg 26.1-32.7 H 785-6) MCHC (test code = 35.5 g/dL 31.2-35.0 H 786-4) RDW-SD (test code = 42.9 fL 38.5-51.6 21000-4) RDW-CV (test code = 12.4 % 12.1-15.4 788-0) PLT (test code = See_Comment [Automated 777-3) message] The sy stem which generated this result transmitted reference range : 150 - 328 10*3/ ?L. The reference r johan was not used to interpret this result as normal/abnormal . MPV (test code = 9.8 fL 9.8-13.0 16317-3) NRBC/100 WBC (test See_Comment [Automat ed code = [id number]) message] The system which generated this result transmitted reference range : 0.0 - 10.0 /100 WBCs. The refer ence range was not u sed to interpret th is result as normal/abnormal . NRBC x10^3 (test code <0.01 See_Comment [Auto mated = 9715609718) message] The s ystem which generated this result transmitted reference range : 10*3/?L. The reference range was not used to interpret this result as normal/abnormal . GRAN MAT (NEUT) % 41.9 % (test code = 770-8) IMM GRAN % (test code 0.20 % = 3619277718) LYMPH % (test code = 40.9 % 736-9) MONO % (test code = 13.7 % 5905-5) EOS % (test code = 3.1 % 713-8) BASO % (test code = 0.2 % 706-2) GRAN MAT x10^3(ANC) 1.89 10*3/uL 1.99-6.95 L (test code = 6097431753) IMM GRAN x10^3 (test <0.03 0.00-0.06 code = 0974338481) LYMPH x10^3 (test code 1.85 10*3/uL 1.09-3.23 = 731-0) MONO x10^3 (test code 0.62 10*3/uL 0.36-1.02 = 742-7) EOS x10^3 (test code = 0.14 10*3/uL 0.06-0.53 711-2) BASO x10^3 (test code <0.03 0.01-0.09 = 704-7) Lab Interpretation Abnormal (test code = 91655-9) [facility] [id number] 09:39:48 Test Item Value Reference Range Interpretation Comments TROPONIN I (test 0.002 ng/mL See_Comment [Automated code = 9072302232) message] The system which generated this result transmitted reference range : <=0.034. The reference range was not used to interpret this result as normal/abnormal . GEORGIE (test code = Equal or Less than GEORGIE) 0.034 ng/ml---Normal ?Note: Cardiac troponin begins to rise 3-4 hours after the onset of ischemia. Repeat in 4-6 hours if the sample was drawn within 3-4 hours of the onset of the symptom and found normal. Between 0.035 and 0.120 ng/mL--- Borderline. Questionable myocardial injury or necrosis ? ?Note: Serial measurement may be necessary to confirm or exclude the diagnosis of myocardial injury or necrosis; Clinical correlation (symptoms, EKGs, imaging studies, and others) required; Repeat in 4-6 hours if clinically indicated. ? Equal or Higher than 0.121 ng/mL---Abnormal. Myocardial Injury or Necrosis Likely ? Biotin has been reported to cause a negative bias, interpret results relative to patient's use of biotin. ? Lab Interpretation Normal (test code = 92922-3) [facility]. METABOLIC PANEL (00770)2020-07-12 09:22:19 Test Item Value Reference Range Interpretation Comments NA (test code = 135 mmol/L 135-145 5423073655) K (test code = 3.6 mmol/L 3.5-5.0 2305083977) CL (test code = 103 mmol/L 98-108 0678990921) CO2 TOTAL (test code = 26 mmol/L 23-31 3737690551) AGAP (test code = 2-16 3395054596) BUN (test code = 17 mg/dL 7-23 6184569709) GLUCOSE (test code = 98 mg/dL 70-110 8656540974) CREATININE (test code = 0.82 mg/dL 0.60-1.25 0617471832) TOTAL BILI (test code = 1.3 mg/dL 0.1-1.1 H 0483546096) CALCIUM (test code = 8.4 mg/dL 8.6-10.6 L 8937046486) T PROTEIN (test code = 6.6 g/dL 6.3-8.2 6982296871) ALBUMIN (test code = 3.7 g/dL 3.5-5.0 8113230741) ALK PHOS (test code = 81 U/L 34-122 0029697699) ALTv (test code = 51 U/L 5-50 H 1742-6) AST(SGOT) (test code = 68 U/L 13-40 H 0674198448) eGFR (test code = mL/min/1.73m2 8651259643) GEORGIE (test code = GEORGIE) Association of Glomerular Filtration Rate (GFR) and Staging of Kidney Disease* + --+ --+ ------+| GFR (mL/min/1.73 m2) ?| With Kidney Damage ?| ?Without Kidney Damage+ --------+ --------+ +| ?>90 ?| ?Stage one ?| ? Normal ?+ ---+ ---+ -------+| ?60-89 ?| ?Stage two ?| ? Decreased GFR ? + --+ --+ ------+| ?30-59 ?| ?Stage three ?| ? Stage three ? + --+ --+ ------+| ?15-29 ?| ?Stage four ? | ? Stage four ?+ ---+ ---+ -------+| ?<15 (or dialysis) ? ?| ?Stage five ? | ? Stage five ?+ ---+ ---+ -------+ *Each stage assumes the associated GFR level has been in effect for at least three months. ?Stages 1 to 5, with or without kidney disease, indicate chronic kidney disease. Notes: Determination of stages one and two (with eGFR >59mL/min/1.73 m2) requires estimation of kidney damage for at least three months as defined by structural or functional abnormalities of the kidney, manifested by either:Pathological abnormalities or Markers of kidney damage (including abnormalities in the composition of the blood or urine or abnormalities in imaging tests). Lab Interpretation Abnormal (test code = 73257-5) [facility]LIP[facility], [id number] 09:22:14 Test Item Value Reference Range Interpretation Comments LIPASE (test code = 3106365045) 106 U/L 0-220 Lab Interpretation (test code = Normal 16735-6) [facility] HospitalaPTT2021-05-27 09:13:54 Test Item Value Reference Range Interpretation Comments APTT Patient (test See_Comment [Automat ed code = 3173-2) message] The system which generated this result transmitted reference range : 23 - 38 Seconds . The reference range was not used to interpr et this result as normal/abnormal . GEORGIE (test code = GEORGIE) The [facility] patient population mean normal value for aPTT is 30 seconds. Lab Interpretation Normal (test code = 85204-5) [facility] HospitalPROTHROMBIN TIME / [id number] 09:11:53 Test Item Value Reference Range Interpretation Comments PROTIME PATIENT (test See_Comment [Auto mated message] code = 5964-2) The system wh ich generated this result transmitted ref erence range: 12.0 - 1 4.7 Seconds. The re ference range was not u sed to interpret this result as normal/abnor mal. INR (test code = 6301-6) Nor mal INR <1.1; Warfarin Therap eutic range 2.0 to 3. 0 or 2.5 to 3.5, dep ending upon the indica tions. Lab Interpretation (test Normal code = 81931-7) [facility] HospitalCoronavirus 2019 nCoV [id number] 08:52:00 Test Item Value Reference Range Interpretation Comments Coronavirus 2019 Negative NEGATIVE This test h as been nCoV Bedside (test authorize d by FDA under code = [id number]) an EUA for use byauthorized laboratories; This test has been author ized only for the detecti on ofnucleic acid from SARS-CoV-2, not for any other viruses orpathogens; an d This test is only au thorized for the duratio n of thedeclaration that circumstances e xist justifying theauthorizatio n of emergency use o f in vitro diagnostic test sfor detection and/o r diagnosis of CO VID-19 under Nrjyjya35 4(b)(1) of the Act, 21 U.S .C. 360bbb-3(b)(1), unless theauthorizatio n is terminated or r evoked sooner. DRUGS OF ABUSE [id number] 03:16:00 Test Item Value Reference Range Interpretation [...] poses (e.g employment testing). DRUGS OF ABUSE [id number] 02:47:00 Test Item Value Reference Range Interpretation [...] (test code = PHENCU) DRUGS OF ABUSE [id number] 02:38:00 Test Item Value Reference Range Interpretation [...] NEGATIVE (test code = PHENCU) BASIC METABOLIC [id number] 02:34:00 Test Item Value Reference Range Interpretation [...] 9.7 mg/dL 8.4-10.2 N CA) LIVER FUNCTION [id number] 02:34:00 Test Item Value Reference Range Interpretation [...] U/L 38-126 N (test code = ALKP) [id number] 02:34:00 Test Item Value Reference Range Interpretation Comments ACETAMINOPHEN (test code = ACET) <10 ug/mL 10-30 L [id number] 02:34:00 Test Item Value Reference Range Interpretation Comments SALICYLATE (test code < 1.0 mg/dL Negati ve <2.0 = SMITH) mg/dLTherapeuti c Range <20 mg/dL [id number] 02:34:00 Test Item Value Reference Range Interpretation Comments ALCOHOL (test code = < 10 mg/dL <10 ALC) ~~~~~~~~~~~~~~~ ~~~~~~~ ~~~~~~~~~~~~~~~ ~~~~~~~ ~~~~~~ RESU LTS ARE TO BE USED FOR MEDICAL PURPOSES ONLY.F OR LEGAL PURPOSES THE SPECIMEN MUST B E COLLECTED BY A CHAINOF CUSTODY. LEGAL TESTING IS NOT PERFORME D BY THIS FACILITY. ~~~~~~~~~~~~~~~ ~~~~~~~ ~~~~~~~~~~~~~~~ ~~~~~~~ ~~~~~~ URINALYSIS [id number] 02:27:00 Test Item Value Reference Range Interpretation [...] this result as normal/abnormal . CBC W/AUTO [id number] 02:18:00 Test Item Value Reference Range Interpretation [...] x10 3/uL 0.0-0.1 N DRUGS OF ABUSE [id number] 06:47:00 Test Item Value Reference Range Interpretation [...] non-medical pur poses (e.g employment testing). URINALYSIS [id number] 06:29:00 Test Item Value Reference Range Interpretation [...] this result as normal/abnormal . BASIC METABOLIC [id number] 03:28:00 Test Item Value Reference Range Interpretation [...] 9.0 mg/dL 8.4-10.2 N CA) LIVER FUNCTION [id number] 03:28:00 Test Item Value Reference Range Interpretation [...] U/L 38-126 N (test code = ALKP) [id number] 03:28:00 Test Item Value Reference Range Interpretation Comments ACETAMINOPHEN (test code = ACET) <10 ug/mL 10-30 L [id number] 03:28:00 Test Item Value Reference Range Interpretation Comments SALICYLATE (test code < 1.0 mg/dL Negati ve <2.0 = SMITH) mg/dLTherapeuti c Range <20 mg/dL [id number] 03:28:00 Test Item Value Reference Range Interpretation Comments ALCOHOL (test code = < 10 mg/dL <10 ALC) ~~~~~~~~~~~~~~~ ~~~~~~~ ~~~~~~~~~~~~~~~ ~~~~~~~ ~~~~~~ RESU LTS ARE TO BE USED FOR MEDICAL PURPOSES ONLY.F OR LEGAL PURPOSES THE SPECIMEN MUST B E COLLECTED BY A CHAINOF CUSTODY. LEGAL TESTING IS NOT PERFORME D BY THIS FACILITY. ~~~~~~~~~~~~~~~ ~~~~~~~ ~~~~~~~~~~~~~~~ ~~~~~~~ ~~~~~~ CBC W/AUTO [id number] 00:30:00 Test Item Value Reference Range Interpretation [...] 3/uL 0.0-0.1 N - CT C-SPINE W/O [id number] 23:37:00 Patient Name: ARLINE RAO Unit No: [id number] EXAMS: CPT CODE: [id number] CT C-SPINE W/O CONT 81455 Location: CT cervical spine, 08/29/19 TECHNIQUE: CT [...] CC: Lan Cooper MD Dictated Date/Time: 08/29/2019 (6459) Technologist: Ara Steward CTDI: 16.41 DLP: 366.20 Trnscrpt: 08/29/2019 (4437) HeatherDAS6 [facility] Lyubov NAME: RAO,[address] PHYS: COLIN ZengLan [place], [place] [address] : 1985 AGE: 33 SEX: M LOC: CASSANDRA PHONE #: [phone] EXAM DATE: 08/29/2019 STATUS: REG ER FAX #: [phone] RAD #: D/C DT PAGE 1 Signed Report Patient Name: ARLINE RAO Unit No: [id number] EXAMS: CPT CODE: [id number] CT C-SPINE W/O CONT 10181 <Continued> Orig Print D/T: S: 08/29/2019 (2340) TATUM Mcarthur NAME: JALEN[address] PHYS: Clementine Munroesamm DIETZ [place], [place] [address] : 1985 AGE: 33 SEX: M LOC: CASSANDRA PHONE #: [phone] EXAM DATE: 08/29/2019 STATUS: REG ER FAX #: [phone] RAD #: D/C DT PAGE 2 Signed Report- CT HEAD/BRAIN W/O [id number] 23:33:00 Patient Name: ARLINE RAO Unit No: [id number] EXAMS: CPT CODE: [id number] CT HEAD/BRAIN W/O CONT 80884 Location: CT head, 08/29/19 COMPARISON EXAMS: None [...] Steward CTDI: 45.96 DLP: 757.79 Trnscrpt: 08/29/2019 ([facility]) HeatherDAS6 TATUM Mcarthur NAME: JALEN[address] PHYS: Lan [place] [address] : 1985 AGE: 33 SEX: M LOC: KarenERS PHONE #:[phone] EXAM DATE: 08/29/2019 STATUS: REG ER FAX #: [phone] RAD #: D/C DT PAGE 1 Signed Report Patient Name: ARLINE RAO Unit No: [id number] EXAMS: CPT CODE: [id number] CT HEAD/BRAIN W/O CONT 45006 <Continued> Orig Print D/T: S: 08/29/2019 ([facility]) TATUM Mcarthur NAME: JALEN[address] PHYS: Lan Munroe [place] [address] : 1985 AGE: 33 SEX: M LOC: B.ERS PHONE #: [phone] EXAM DATE:08/29/2019 STATUS: REG ER FAX #: [phone] RAD #: D/C DT PAGE 2 Signed ReportCOMPREHENSIVE METABOLIC [id number] 23:28:00 Test Item Value Reference Range Interpretation [...] code = LIPINDEX) MG Index/DL CBC W/AUTO [id number] 23:07:00 Test Item Value Reference Range Interpretation [...] 0.00 K/mm3 0.00-0.05 N NRBC#) BASIC METABOLIC [id number] 14:23:00 Test Item Value Reference Range Interpretation [...] NORMAL code = LIPINDEX) Index/DL HEPATIC FUNCTION [id number] 14:23:00 Test Item Value Reference Range Interpretation [...] 68 Unit/L 45-117 N code = ALKP) [id number] 14:23:00 Test Item Value Reference Range Interpretation Comments ALCOHOL (test code = 3 MG/DL 0-10 N MEDICAL ALCOHOL RESULTS. ALC) SITE WAS PREPPE D WITH BETADINE. <10 MG/DL ARE CONSI DERED NEGATIVE. >400 MG/DL MAY BE FATAL.RESULTS F OR MEDICAL USE ONL Y. NOT TO BE USED FOR FOR ENSIC PURPOSES. BASIC METABOLIC [id number] 14:17:00 Test Item Value Reference Range Interpretation [...] 1 NORMAL = LIPINDEX) Index/DL HEPATIC FUNCTION [id number] 14:17:00 Test Item Value Reference Range Interpretation [...] TOTAL (test code Unit/L 45-117 = ALKP) [id number] 14:17:00 Test Item Value Reference Range Interpretation Comments ALCOHOL (test code = ALC) MG/DL 0-10 CBC W/O [id number] 14:04:00 Test Item Value Reference Range Interpretation [...] = 9.4 fL 7.6-10.4 N MPV) RPR [id number] 14:01:19 Test Item Value Reference Range Interpretation [...] = 12-17-2019 N Expiration Dt) Thyroid Stimulating [id number] 09:09:16 Test Item Value Reference Range Interpretation Comments TSH (test code = TSH) 0.418 mIU/mL 0.270-4.200 Lipid [id number] 08:59:32 Test Item Value Reference Range Interpretation Comments Cholesterol Total 131 mg/dL 0-200 RISK OF HE ART (test code = DISEASEPublishe d by Cholesterol Total) [place] [employer] Giovanna lyte Optimal Borderl ine [...] LDL/HDL Ratio=L DL Calc/HDL Chol Thyroid Stimulating [id number] 10:03:42 Test Item Value Reference Range Interpretation Comments TSH (test code = TSH) 1.560 mIU/mL 0.270-4.200 Lipid [id number] 09:52:10 Test Item Value Reference Range Interpretation Comments Cholesterol Total 210 mg/dL 0-200 H RISK OF HE ART (test code = DISEASEPublishe d by Cholesterol Total) [employer] Giovanna lyte Optimal Borderl ine [...] being used code = LDL/HDL Ratio) in moisés s calculation is LDL/HDL Ratio=L DL Calc/HDL Chol RPR [id number] 11:37:43 Test Item Value Reference Range Interpretation Comments RPR Qual (test code = RPR Qual) Non-Reactive Non-Reactive Reactive Control (test code = Reactive Reactive Control) Weak Reactive Control (test Weak Reactive code = Weak Reactive Control) Non-Reactive Control (test code Non-Reactive = Non-Reactive Control) Lot # (test code = Lot #) [id number] N Expiration Dt (test code = 12-17-19 N Expiration Dt) Urinalysis [id number] 23:07:47 Test Item Value Reference Range Interpretation Comments UA WBC (test code = UA WBC) None Seen 0-5 UA RBC (test code = UA RBC) None Seen 0-5 UA Bacteria (test code = UA None Seen Bacteria) UA Squam Epithelial (test code = UA 0-5 Squam Epithelial) Comprehensive Metabolic [id number] 22:29:50 Test Item Value Reference Range Interpretation [...] A/G 1.7 ratio N Ratio) Comprehensive Metabolic [id number] 22:29:50 Test Item Value Reference Range Interpretation [...] the National Kidney Foundation, http://nkdep.ni h.gov Alcohol [id number] 22:29:50 Test Item Value Reference Range Interpretation Comments Ethanol Level (test 0.06 g/dL 0.00-0.01 H Intoxica isai 0.080 g/dL code = Ethanol or more Level) Ethanol Inst (test 58 N code = Ethanol Inst) Comprehensive Metabolic [id number] 22:29:50 Test Item Value Reference Range Interpretation [...] ag e have not been validated by e MDRD study and should be interpreted wit h caution. eGFR R esult Interpretation: eGFR > or = 60 is in the Normal RangeeGF R < 60 may mean kid tran diseaseeGFR < 1 5 may mean kidney failure Rang es recommended by the National Kidney Foundation, http://nkdep.ni h.gov Complete Blood Count with Wbhtliabbggs9102-40-35 22:14:44 Test Item Value Reference Range Interpretation [...] code = IPF) 0 % N Automated [id number] 22:14:44 Test Item Value Reference Range Interpretation Comments Neutro Auto (test code = Neutro 72.2 % 36.0-70.0 H Auto) Lymph Auto (test code = Lymph Auto) 19.6 % 12.0-44.0 Wilcox Auto (test code = Wilcox Auto) 6.9 % 0.0-11.0 Eos, Auto (test code = Eos, Auto) 0.0 % 0.0-7.0 Basophil Auto (test code = Basophil 0.4 % 0.0-2.0 Auto) Neutro Absolute (test code = Neutro 6.1 x10 1.6-7.4 Absolute) Lymph Absolute (test code = Lymph 1.67 x10 .50-4.60 Absolute) Wilcox Absolute (test code = Wilcox .59 x10 .00-1.20 Absolute) Eos Absolute (test code = Eos 0.00 x10 0.00-0.74 Absolute) Baso Absolute (test code = Baso 0.03 x10 0.00-0.21 Absolute) IG [id number] 22:14:44 Test Item Value Reference Range Interpretation Comments IG (test code = IG) 0.9 % 0.0-5.0 IG Abs (test code = IG Abs) 0 x10 N Urine Drug [id number] 22:14:38 Test Item Value Reference Range Interpretation [...] if desired . Urinalysis with Microscopic if [id number] 21:53:48 Test Item Value Reference Range Interpretation [...] Ind?) rule GL_SJM_UA_MICRO _IN D Urine Drug [id number] 09:31:28 Test Item Value Reference Range Interpretation [...] matory test if desired . Comprehensive Metabolic [id number] 09:17:22 Test Item Value Reference Range Interpretation [...] A/G 2.1 ratio N Ratio) Comprehensive Metabolic [id number] 09:17:22 Test Item Value Reference Range Interpretation [...] National Kidney Foundation, http://nkdep.ni h.gov Comprehensive Metabolic [id number] 09:17:22 Test Item Value Reference Range Interpretation [...] ag e have not been validated by e MDRD study and should be interpreted wit h caution. eGFR R esult Interpretation: eGFR > or = 60 is in the Normal RangeeGF R < 60 may mean kid tran diseaseeGFR < 1 5 may mean kidney failure Rang es recommended by the National Kidney Foundation, http://nkdep.ni h.gov IG Fzpek8044-90-47 09:08:10 Test Item Value Reference Range Interpretation Comments IG (test code = IG) 0.4 % 0.0-5.0 IG Abs (test code = IG Abs) 0 x10 N Complete Blood Count with Cvquhwfjjmvk6427-73-48 09:08:09 Test Item Value Reference Range Interpretation [...] code = IPF) 0 % N Automated Njdopewqcvge8024-23-34 09:08:09 Test Item Value Reference Range Interpretation Comments Neutro Auto (test code = Neutro 73.6 % 36.0-70.0 H Auto) Lymph Auto (test code = Lymph Auto) 17.3 % 12.0-44.0 Wilcox Auto (test code = Wilcox Auto) 8.3 % 0.0-11.0 Eos, Auto (test code = Eos, Auto) 0.1 % 0.0-7.0 Basophil Auto (test code = Basophil 0.3 % 0.0-2.0 Auto) Neutro Absolute (test code = Neutro 5.1 x10 1.6-7.4 Absolute) Lymph Absolute (test code = Lymph 1.19 x10 .50-4.60 Absolute) Wilcox Absolute (test code = Wilcox .57 x10 .00-1.20 Absolute) Eos Absolute (test code = Eos 0.01 x10 0.00-0.74 Absolute) Baso Absolute (test code = Baso 0.02 x10 0.00-0.21 Absolute) [facility] - DRUG SCREEN [id number] 02:56:00 Test Item Value Reference Range Interpretation Comments BENZO U (test code = Negative Negative 0631222027) EARL U (test code = Negative Negative 3334139544) AMPHET (test code = Presumptive Positive Negative A 9648997560) THC (test code = Negative Negative 1627831696) METHADONE (test code = Negative Negative 9882631256) Meth U (test code = Presumptive Positive Negative A 8416154440) OPIATES (test code = Negative Negative 2844410365) Cocaine Metabolite (test Negative Negative code = 2689735263) PROPOXY (test code = Negative Negative 1820624382) Tric U (test code = Negative Negative 5860793054) PCP (test code = Negative Negative 1021208902) OXYCOD (test code = Negative Negative 7280509459) GEORGIE (test code = GEORGIE) Urine Drug Cutoff RangesBenzodiazepines : ? ? 150 ng/mLBarbiturates: ?200 ng/mLAmphetamine: ? 500 ng/mLCannabinoids: ?50?ng/mLMethadone: ? 200 ng/mLMethamphetamine: ? 500 ng/mL Opiates: ? 100 ng/mL or 2000 ng/mLCocaine: ? 150 ng/mLPropoxyphene:?30 0 ng/mLTricyclics:?300 ng/mLOxycodone:? 100 ng/mLPCP:? 25?ng/mLThe results are to be used only for medical (i.e., treatment) purposes. Unconfirmed screening results must not be used for non-medical purposes (e.g., employment testing, legal testing). Lab Interpretation (test Abnormal code = 36024-9) [facility] HospitalAcetaminophen2019 02:40:00 Test Item Value Reference Range Interpretation Comments ACETAMINOP (test code = <10.0 10-30 L 0686710095) GEORGIE (test code = GEORGIE) Toxic: Greater than 200 ug/mL @ 4 hour post ingestion or greater than 50 ug/mL @ 12 hour post ingestion Lab Interpretation (test Abnormal code = 87659-7) [facility] HospitalSalicylate2019 02:40:00 Test Item Value Reference Range Interpretation Comments SALICYLATE (test code <10 mg/L = 6161913342) GEORGIE (test code = GEORGIE) Therapeutic Range:? Analgesic and Antipyretic Use? 20-100 mg/L? Anti-Inflammatory Use? 100-250 mg/LToxic Range:? Greater than 300 mg/L [facility] HospitalEthanol (ETOH) [id number] 02:40:00 Test Item Value Reference Range Interpretation Comments ALCOHOL (test code = <10 mg/dL 0348769577) GEORGIE (test code = GEORGIE) <10 Bgcgbkrz97-467 Toxic>100 Depression of TERRAZZO ROLLER>400 Fatalities Reported [facility] HospitalBasi Metabolic Panel (NA, K, CL, CO2, Glucose, BUN, Creatinine, CA)2018-11-05 02:35:00 Test Item Value Reference Range Interpretation Comments NA (test code = 142 mmol/L 135-145 1888091193) K (test code = 3.5 mmol/L 3.5-5 4228585506) CL (test code = 107 mmol/L 98-108 0670717029) CO2 TOTAL (test code = 25 mmol/L 23-31 1421273253) AGAP (test code = 2-16 5398187832) BUN (test code = 12 mg/dL 7-23 2454637164) GLUCOSE (test code = 90 mg/dL 70-110 6440538368) CREATININE (test code 0.77 mg/dL 0.6-1.25 = 8035214558) CALCIUM (test code = 9.3 mg/dL 8.6-10.6 9230518575) eGFR Calculation mL/min/1.73m2 (Non-) (test code = 5346501397) eGFR Calculation mL/min/1.73m2 () (test code = 4908661511) GEORGIE (test code = GEORGIE) Association of Glomerular Filtration Rate (GFR) and Staging of Kidney Disease*+ ---------+ --------+ +| GFR (mL/min/1.73 m2)?| With Kidney Damage?|?Without Kidney Damage+ -------+ ------+ ---------+|?>90?|?Stage one?|? Normal?+ --------+ -------+ +|?60-89?|?St age two?|? Decreased GFR? + -+ + ---+|?30-59?|?Stage three?|? Stage three? + -+ + ---+|?15-29?|?Stage four? |? Stage four?+ ------+ -----+ --------+|?<15 (or dialysis)?|?Stage five? |? Stage five?+ ------+ -----+ --------+*Each stage assumes the associated GFR level has been in effect for at least three months.?Stages 1 to 5, with or without kidney disease, indicate chronic kidney disease.Notes: Determination of stages one and two (with eGFR >59mL/min/1.73 m2) requires estimation of kidney damage for at least three months as defined by structural or functional abnormalities of the kidney, manifested by either:Pathological abnormalities or Markers of kidney damage (including abnormalities in the composition of the blood or urine or abnormalities in imaging tests). [facility] HospitalHepatic Function Panel (ALB, T.PRO, BILI T, BU/BC, ALT, AST, ALK PHOS)2018-11-05 02:35:00 Test Item Value Reference Range Interpretation Comments TOTAL BILI (test code = 2685530444) 1.0 mg/dL 0.1-1.1 BILI UNCON (test code = 9658429791) 0.8 mg/dL 0.1-1.1 BILI CONJ (test code = 5862520113) 0.0 mg/dL 0-0.3 T PROTEIN (test code = 6169559599) 7.0 g/dL 6.3-8.2 ALBUMIN (test code = 1288886047) 4.4 g/dL 3.5-5 ALK PHOS (test code = 2012509743) 71 U/L 34-122 ALT(SGPT) (test code = 1473043781) 39 U/L 9-51 AST(SGOT) (test code = 0166155932) 40 U/L 13-40 Lab Interpretation (test code = Normal 98803-9) [facility] WITH [id number] 02:10:00 Test Item Value Reference Range Interpretation Comments WBC (test code = See_Comment [Automated 6690-2) message] The sy stem which generated this result transmitted reference range : 4.20 - 10.70 10*3/?L. The reference range was not used to interpret this result as normal/abnormal . RBC (test code = See_Comment [Automated 789-8) message] The sy stem which generated this result transmitted reference range : 4.26 - 5.52 10*6/?L. The reference range was not used to interpret this result as normal/abnormal . HGB (test code = 15.1 g/dL 12.2-16.4 718-7) HCT (test code = 44.4 % 38.4-49.3 4544-3) MCV (test code = 95.7 fL 81.7-95.6 H 787-2) MCH (test code = 32.5 pg 26.1-32.7 785-6) MCHC (test code = 34.0 g/dL 31.2-35 786-4) RDW-SD (test code = 46.3 fL 38.5-51.6 73440-6) RDW-CV (test code = 13.1 % 12.1-15.4 788-0) PLT (test code = See_Comment [Automated 777-3) message] The sy stem which generated this result transmitted reference range : 150 - 328 10*3/ ?L. The reference r johan was not used to interpret this result as normal/abnormal . MPV (test code = 9.9 fL 9.8-13 43300-2) NRBC/100 WBC (test See_Comment [Automat ed code = 1503508208) message] The system which generated this result transmitted reference range : 0.0 - 10.0 /100 WBCs. The refer ence range was not u sed to interpret th is result as normal/abnormal . NRBC x10^3 (test code <0.01 See_Comment [Auto mated = [id number]) message] The s ystem which generated this result transmitted reference range : 10*3/?L. The reference range was not used to interpret this result as normal/abnormal . GRAN MAT (NEUT) % 50.8 % (test code = 770-8) IMM GRAN % (test code 0.60 % = [id number]) LYMPH % (test code = 33.8 % 736-9) MONO % (test code = 14.4 % 5905-5) EOS % (test code = 0.0 % 713-8) BASO % (test code = 0.4 % 706-2) GRAN MAT x10^3(ANC) 2.62 10*3/uL 1.99-6.95 (test code = 5417250268) IMM GRAN x10^3 (test 0.03 10*3/uL 0-0.06 code = 2465012947) LYMPH x10^3 (test code 1.74 10*3/uL 1.09-3.23 = 731-0) MONO x10^3 (test code 0.74 10*3/uL 0.36-1.02 = 742-7) EOS x10^3 (test code = <0.03 0.06-0.53 L 711-2) BASO x10^3 (test code <0.03 0.01-0.09 = 704-7) Lab Interpretation Abnormal (test code = 92526-0) [id number] 13:14:00 Test Item Value Reference Range Interpretation [...] by the [employer],http :[email or web address] ep.nih.gov [id number] 13:09:00 Test Item Value Reference Range Interpretation [...] g/dL 0.00-0.01 N code = ETOHU) Urinalysis [id number] 12:59:00 Test Item Value Reference Range Interpretation Comments Color (test code = Yellow Yellow,Straw,Pl N COLOR) yellow Clarity (test code = Clear Clear N CLAR) Specific [place] (test 1.027 1.001-1.035 N code = SPGR) [...] code = Few /HPF BACT) CBC with [id number] 12:42:00 Test Item Value Reference Range Interpretation [...] code = ALYMPH) 2.3 K/cumm 0.5-4.6 N [place] Abs (test code = AMONO) 0.6 K/cumm 0.0-1.2 N Eos Abs (test code = AEOS) 0.09 K/cumm 0.00-0.74 N Baso Abs (test code = ABASO) 0.0 K/cumm 0.00-0.21 N Hepatic Function [id number] 18:55:00 Test Item Value Reference Range Interpretation [...] = ALT) 47 U/L 1-41 H HIV [id number] 12:45:00 Test Item Value Reference Range Interpretation Comments HIV 1/2 Antibody Non-Reactive Non-Reactive N HIV1/2 Anti body screen (test code = result indicate s the HIV1/2AB) absence of HIV1 and LGM1syxepzgcj.H owever, A Non-Reactive screen result does not [...] rule o ut exposure or infection.If ac john HIV-1 is suspec isai, HIV RNA Quantit ative is recommended. RPR, [id number] 21:30:00 Test Item Value Reference Range Interpretation Comments RPR (test code = RPR) Non-Reactive Non-Reactive N Thyroid Stimulating Hormone (TSH)2017-03-17 09:55:00 Test Item Value Reference Range Interpretation Comments TSH (test code = TSH) 0.94 mIU/mL 0.270-4.200 N Lipid [id number] 09:53:00 Test Item Value Reference Range Interpretation Comments Cholesterol (test 124 mg/dL 0-200 N code = CHOL) Triglycerides (test 61 mg/dL 9-200 N code = TRIG) HDL (test code = 47 mg/dL 40-60 N HDL) Chol/HDL (test code 2.6 Ratio 0.0-5.0 N = CHOLPHDL) LDL, Calculated 65 0-130 N (NOTE)RISK O F HEART (test code = LDLC) DISEASEPu blished by [place] Heart AssociationAnal yte Optim al Boderline Increased RiskC HOL <200 200-239 >240TRI G <150 150-199 >200HDL Male: >60 <40HDL Female: >60 <50 LDL < 100 130-15 9 >160 LDL NEAR OPTIMAL IS 100- 129 VLDL (test code = 12 mg/dL 5-40 N VLDL) LDL/HDL (test code = 1 LDLPHDL) Urinalysis [id number] 15:09:00 Test Item Value Reference Range Interpretation Comments Color (test code = Yellow Yellow,Straw,Pl N COLOR) yellow Clarity (test code = Clear Clear N CLAR) Specific [place] (test 1.028 1.001-1.035 N code = SPGR) [...] = 0-1 Granular /HPF CASTS) Comprehensive Metabolic [id number] 14:24:00 Test Item Value Reference Range Interpretation [...] by the [employer],http :[email or web address] ep.nih.gov [id number] 14:20:00 Test Item Value Reference Range Interpretation [...] 0.00-0.01 N code = ETOHU) CBC with [id number] 14:08:00 Test Item Value Reference Range Interpretation [...] code = ALYMPH) 2.2 K/cumm 0.5-4.6 N [place] Abs (test code = AMONO) 0.9 K/cumm 0.0-1.2 N Eos Abs (test code = AEOS) 0.06 K/cumm 0.00-0.74 N Baso Abs (test code = ABASO) 0.0 K/cumm 0.00-0.21 N
[2021-05-07 02:23] VITALS: TEMP 98.6; O2SAT 100
[2021-05-07 02:29] VITALS: BP 118/84
--- NOTE | 2021-05-07 08:44 | EKG ---
Test Date: 2021-05-06 Test Time: 19:02:54 Underwriter: SULAIMAN MEASUREMENT RESULTS: Intervals: Rate: 138 IL: 126 QRSD: 80 QT: 282 QTc: 427 [place]: P: 44 IL: 126 QRS: 78 T: 23 INTERPRETIVE STATEMENTS: Sinus tachycardia Cannot rule out Anterior infarct, age undetermined Abnormal ECG Compared to ECG 07/10/2020 16:29:11 Myocardial infarct finding now present Electronically Signed On 05-07-21 08:42:15 CDT by Cj Anderson
== END 2021-05-07 01:14 | disposition home or self-care (01) ==
LOC: ER 18:56
DX: F15.10 Other stimulant abuse, uncomplicated (principal); F12.10 Cannabis abuse, uncomplicated; F20.9 Schizophrenia, unspecified; Z88.5 Allergy status to narcotic agent; Z88.8 Allergy status to other drugs, medicaments and biological substances
CPT/HCPCS: 36415; 71045; 80048; 80076; 80307; 81003; 81015; 83735; 84484; 85025; 85610; 87077; 87086; 87088; 87186; 93005; 96360; 99284

== ENCOUNTER 2021-05-08 09:32 | Emergency (ER) | payer OTHER ==
--- OUTSIDE RECORDS SUMMARY | 2021-05-08 09:40 | XMS REPORT | Continuity of Care Document ---
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 TROPONIN I 2020-07-12 08:34:00 Michael Phillips [facility] COMP. METABOLIC PANEL 2020-07-12 08:34:00 Michael Phillips [facility] ([id number]) [facility] CBC WITH DIFF 2020-07-12 08:34:00 Michale Phillips [facility] PROTHROMBIN TIME / INR 2020-07-12 08:34:[address] [facility] ACTIVATED PARTIAL 2020-07-12 08:34:00 Michael Phillips [facility] OF [facility]IVACY 2020-07-12 08:13:09 Doctor Gayathri, [facility]USAL FOR 2020-07-12 08:12:53 Doctor Gayathri [facility] DIAGNOSIS AND TREAT[facility] NOTICE OF PRIVACY 2020-07-12 08:10:55 Doctor Gayathri, [facility] ADC / LCC - DRUG SCREEN 2018-11-05 02:31:00 Brown Bowen [facility] TRIAGE [facility] HEPATIC FUNCTION PANEL 2018-11-05 02:02:00 Brown Bowen [facility] ([id number]) (ALB,T.PRO,BILI Medical Branch T,BU/BC,ALT,AST,ALK PHOS) BASIC METABOLIC PANEL 2018-11-05 02:02:00 Brown Bowen [facility] (NA, K, CL, CO2, GLUCOSE, Medica l Branch BUN, CREATININE, CA) SALICYLATE 2018-11-05 02:02:[address] [facility] ETHANOL 2018-11-05 02:02:[address] [facility] CBC WITH DIFFERENTIAL 2018-11-05 02:02:00 Brown Bowen [facility] CONSENT/REFUSAL FOR 2018-11-05 01:28:18 Doctor Gayathri [facility] DIAGNOSIS AND TREATMENT [facility] [facility] Plan of Care Planned Activity Planned Date Details Comments Source Future Scheduled 2021-01-31 [facility] Test 17:19:18 screening (procedure) [code = 905413820] Future Scheduled 2021-01-31 [facility] 17:19:18 [code = INFLUENZA VACCINE] Future Scheduled 2021-01-31 COVID-19 VACCINE (3 [facility] Test 17:19:18 - Booster) [code = COVID-19 VACCINE (3 - Booster)] Encounters Start End Encounter Admission Attending Care Care Encounter Source Date/Time Date/Time Type Type Clinicians Facility Department ID 2021-03-14 Outpatient 3 [id number] ENC[facility] CARLENE ENCPL 13:33:41 [id number] Outpatient [id number] ENC[facility] REF [id number] ENCPL 13:33:01 12202021-02-11 Inpatient MENDEL, [facility] [id number] H arris 00:00:00 [facility] 2021-01-24 [facility] [id number] [address] [place] [address] 07:00:09 [facility] 2021-01-22 Inpatient [facility] [id number] H arris 00:00:00 [facility] 2021-01-21 Inpatient [facility] [id number] H arris 00:00:00 [facility] 2021-01-20 Inpatient [facility] [id number] H arris 00:00:00 [facility] 2021-01-18 Inpatient [facility] [id number] H arris 00:00:00 [facility] 2021-01-17 Inpatient [facility] [id number] H arris 00:00:00 [facility] 2021-01-16 Inpatient [facility] [id number] H arris 00:00:00 [facility] 2021-01-15 Inpatient ROLDAN, [facility] [id number] [place] 00:00:00 [facility] 2021-01-13 Inpatient [facility] [id number] H arris 00:00:00 [facility] 2021-01-12 Inpatient [facility] [id number] H arris 00:00:00 [facility] 2021-01-11 Inpatient [facility] [id number] H arris 00:00:00 [facility] 2021-01-10 Inpatient [facility] [id number] H arris 00:00:00 [facility] 2021-01-09 Inpatient [facility] [id number] H arris 00:00:00 [facility] 2021-01-08 Inpatient YULI, [facility] [id number] [place] 00:00:00 [facility] 2021-01-06 Inpatient [facility] [id number] H arris 00:00:00 [facility] 2021-01-05 Inpatient YULI, [facility] [id number] [place] 00:00:00 [facility] 2021-01-04 Inpatient YULI, [facility] [id number] [place] 00:00:00 [facility] 2021-01-03 Inpatient YULI, [facility] [id number] [place] 00:00:00 [facility] 2021-01-02 Inpatient [facility] [id number] H arris 00:00:00 [facility] 2020-12-30 Inpatient 1 MAREK, [facility] [id number] H arris 22:32:00 BUSHRA Reid 2020-12-30 Inpatient LORENE, [facility] [id number] [place] 00:00:00 [facility] 2020-12-30 Inpatient LORENE, [facility] [id number] [place] 00:00:00 [facility] 2020-05-17 Inpatient HCAKW MALIKA [id number] [facility] 01:21:00 [id number] [facility] 2020-05-14 Inpatient HCAKW MALIKA [id number] [facility] 23:22:00 [id number] [facility] 2019-08-29 Inpatient HCACR MALIKA [id number] [facility] 22:17:00 [id number] [facility] 2019-06-22 Inpatient HCACR MALIKA [id number] [facility] 13:23:00 [id number] [facility] 2021-05-07 2021-05-08 Outpatient X OBED [facility] [id number] Univers 08:26:00 04:30:00 MARTIN pinto [facility] 2021-05-07 2021-05-08 Emergency Tono Roberto [facility] [id number] Univers 08:26:00 04:30:00 Martin Clay 350.1.13.10 blair [facility] 4.2.7.2.686 [facility] [id number] [place] [address] [place] 2021-03-28 2021-03-28 [facility] [id number] [place] 00:00:00 00:00:00 GALE maldonado 2021-03-20 2021-03-20 Outpatient PASCUAL MAHAN [facility] [id number] [place] 00:00:00 00:00:00 [facility] 2020-12-30 2021-02-28 [facility] [id number] [place] 22:32:00 18:41:00 BUSHRA Heal 2020-12-30 2021-02-28 [facility] [id number] [place] 22:32:00 18:41:00 BUSHRA Heal 2021-02-15 2021-02-15 Inpatient [facility] [id number] [place] 10:50:13 11:18:57 Health 2021-02-14 2021-02-14 Inpatient [facility] [id number] [place] 16:43:15 18:41:33 Health 2021-02-14 2021-02-14 Inpatient [facility] [id number] [place] 07:24:16 09:18:07 Health 2021-01-31 2021-01-31 Inpatient [facility] [id number] [place] 01:03:14 03:25:48 Health 2021-01-25 2021-01-25 Inpatient [facility] [id number] [place] 01:35:50 03:05:16 [facility] 2021-01-23 2021-01-23 Inpatient [facility] [id number] [place] 02:10:17 04:59:36 Health 2021-01-21 2021-01-21 Inpatient VIKASH [facility] [id number] [place] 15:43:59 16:18:10 FIORELLALA GRANGE Joce maldonado 2021-01-13 2021-01-13 Inpatient [facility] [id number] [place] 16:20:12 17:12:27 Health 2021-01-07 2021-01-07 Inpatient [facility] [id number] [place] 18:28:43 18:28:46 Health 2021-01-07 2021-01-07 Inpatient [facility] [id number] [place] 00:12:42 01:07:25 Health 2021-01-04 2021-01-04 Inpatient [facility] [id number] [place] 17:11:58 18:14:36 Health 2021-01-04 2021-01-04 Inpatient KARYN, [facility] [id number] [place] 13:40:49 15:55:44 GUME [facility] 2021-01-03 2021-01-03 Inpatient [facility] [id number] [place] 17:58:59 17:59:03 [facility] 2021-01-01 2021-01-01 Inpatient [facility] [id number] [place] 16:44:03 16:44:07 [facility] 2021-01-01 2021-01-01 Inpatient EMMA, [facility] [id number] [place] 08:36:00 09:12:12 Count includes the [facility] 2021-01-01 2021-01-01 Inpatient [facility] [id number] [place] 07:46:21 08:35:30 [facility] 2021-01-01 2021-01-01 Inpatient YULI, [facility] [id number] [place] 02:09:24 03:31:22 [facility] 2020-12-31 2020-12-31 Inpatient MAREK, [facility] [id number] [place] 05:17:16 06:34:53 BUSHRA [facility] 2020-12-31 2020-12-31 Inpatient [facility] [id number] [place] 01:50:33 06:34:15 [facility] 2020-12-31 2020-12-31 Inpatient [facility] [id number] [place] 03:50:31 04:54:13 [facility] 2020-12-31 2020-12-31 Inpatient [facility] [id number] [place] 01:43:22 04:38:47 [facility] 2020-12-30 2020-12-30 Emergency [facility] [id number] [place] 22:46:36 23:04:47 [facility] 2020-12-30 2020-12-30 Emergency [facility] [id number] [place] 22:46:20 23:04:03 Health 2020-12-30 2020-12-30 Emergency [facility] [id number] [place] 22:47:41 23:03:11 [facility] 2020-12-30 2020-12-30 Emergency LAKHWINDER, [facility] [id number] [place] 00:00:00 00:00:[facility] 2020-12-20 2020-12-20 Emergency EM Uziel, HCACR [facility] [id number] [facility] 06:26:00 16:34:00 Erich 52 [facility] 2020-12-20 2020-12-20 Emergency EM Uziel, JYOTICR MALIKA [id number] [facility] 06:26:00 16:34:00 Erich [id number] [facility] 2020-11-15 2020-11-16 Emergency Eusebia Bland 1.2.840 .1 [id number] Methodi 00:55:00 14:35:00 William Nunes [id number] 84 8 Mio Sorensen 3.430.2.7 Hospita .3.217291 l .8 2020-11-14 2020-11-14 Emergency Manju 1.2.840.1 [id number] Methodi 15:47:00 16:03:00 William Langston [address]85.1.[address] 3.430.2.7 Hospit a .3.674416 l .8 2020-10-22 2020-10-24 [facility] Kingsley Dennis G. 1.2.840.1 [id number] Methodi 16:52:00 16:26:00 Encounter Pepito Lauren [id number] Jessica Awad 3.430.2.7 [facility] .3.190001 l .8 2020-10-16 2020-10-16 Emergency EM Crismon, MARINO DALY [id number] [facility] 00:20:00 08:00:00 Gale [id number] [facility] 2020-10-06 2020-10-06 Emergency EM Zia, HCAKW MALIKA [id number] [facility] 01:57:00 20:14:00 Darlene [id number] [facility] 2020-09-05 2020-09-05 Emergency EM Michael Montero MARINO DALY [id number] [facility] 11:17:00 18:22:00 [id number] [facility] 2020-09-03 2020-09-03 Emergency EM [facility] [id number] [facility] 03:35:00 15:00:00 Farhad [id number] [facility] 2020-09-02 2020-09-03 Emergency EM Michael Montero HCACR MALIKA [id number] [facility] 23:16:00 01:53:00 [id number] [facility] 2020-08-11 2020-08-12 Emergency EM Karri, [facility] MALIKA [id number] [facility] 11:12:00 00:40:00 Nasamm [id number] [facility] 2020-07-12 2020-07-12 Emergency [facility] [id number] [facility] 03:16:00 05:05:00 Michael Nichols 350.1.13.10 ity ildefonso [place] 4.2.7.2.686 [facility] [id number] [address] 2020-07-12 2020-07-12 Emergency [facility] [id number] 03:16:00 05:05:00 Michael Nichols 350.1.13.[address] [place] [address] [id number] [facility] 2020-07-12 2020-07-12 Emergency X [facility] ERT [id number] Univers 03:16:00 03:16:00 MICHAEL pinto [facility] 2019-02-21 2019-02-21 Outpatient [facility] [id number] [place] 00:00:00 00:00:00 Health 2019-02-19 2019-02-19 Emergency [facility] TAMEKA [id number] 07:23:00 07:23:00 [facility] 2019-02-01 2019-02-[address] [facility] [id number] [place] 22:11:49 22:11:49 Health 2018-11-04 2018-11-05 Emergency [facility] [id number] Univers 20:38:48 05:13:00 Brown Nichols 350.1.13.10 i [facility] 4.2.7.2.686 [facility] [id number] [facility] [address] [place] 2018-11-04 2018-11-05 Emergency DEMARCO Bowen [id number] 20:38:48 05:13:00 Brown Nichols 350.1.13.10 [place] 4.2.7.2.686 [place] [id number] 2018-10-18 2018-10-[address] [facility] [id number] [place] 06:08:40 06:08:40 [facility] 2017-04-02 2017-04-02 Outpatient [facility] [id number] [place] 00:00:00 00:00:00 [facility] 2017-03-29 2017-03-[address] [facility] [id number] [place] 00:00:48 00:00:48 [facility] 2017-03-22 2017-03-22 Emergency [facility] [id number] 11:46:00 11:46:00 POND [facility] 2017-03-16 2017-03-20 [facility] [id number] 20:46:00 13:41:00 [facility] 2017-01-26 2017-01-26 Outpatient [facility] [id number] [facility] 00:00:00 00:00:00 Results Test Description Test Time Test Comments Results Result Comments Source TROPONIN I 2021-05-08 04:00:37 Test Item Value Reference Range Interpretation Comme nts TROPONIN I (test code = 0.000 ng/mL See_Comment [Au tomated message] The [id number]) system which ge nerated this result tra nsmitted reference range : <=0.034. The reference r johan was not used to int erpret this result as normal/abnormal . GEORGIE (test code = GEORGIE) Reference (Normal) Range (defined by the 99th percentile reference limit): <= 0.034 ng/mL Note: Cardiac troponin begins to rise 3-4 hours after the onset of ischemia. Repeat in 4-6 hours if the sample was drawn within 3-4 hours of the onset of the symptom and found normal. Diagnosis of myocardial injury is made with acute changes in cTn concentrations with at least one serial sample above the 99th percentile upper reference limit (URL), taken together with the patient's clinical presentation. Biotin has been reported to cause a negative bias, interpret results relative to patient's use of biotin. Lab Interpretation Normal (test code = 38678-6) [facility] South[facility]EDIMENTATION [id number] 00:46:10 Test Item Value Reference Range Interpretation Comments ESR (test code = See_Comment H [Automated message] [id number]) The system Action[employer] generated this result transmitted ref erence range: 0 - 10 m m/HR. The reference r johan was not used to interpret this result as normal/abnor mal. Lab Interpretation (test Abnormal code = 57685-0) [facility] SouthGLYCOSYLATED HEMOGLOBIN (A1C)2021-05-07 20:23:40 Test Item Value Reference Range Interpretation Comments HGB A1C (test code = 5.3 % 4.0-5.7 4548-4) GEORGIE (test code = GEORGIE) Reference RangesNormal: <5.7%Prediabetes: 5.7 - 6.4%Diabetes: > 6.5% Lab Interpretation (test Normal code = 67957-4) [facility] SouthCOMP. METABOLIC PANEL (43480)2021-05-07 16:11:59 Test Item Value Reference Range Interpretation Comments NA (test code = 139 mmol/L 135-145 7397689343) K (test code = 3.9 mmol/L 3.5-5.0 8651990804) CL (test code = 101 mmol/L 98-108 1989591723) CO2 TOTAL (test code = 23 mmol/L 23-31 9368748892) AGAP (test code = 2-16 0217754366) BUN (test code = 13 mg/dL 7-23 5962937437) GLUCOSE (test code = 92 mg/dL 70-110 2756079909) CREATININE (test code = 0.40 mg/dL 0.60-1.25 L 0780467851) TOTAL BILI (test code = 1.6 mg/dL 0.1-1.1 H 3462785031) CALCIUM (test code = 9.6 mg/dL 8.6-10.6 1358570474) T PROTEIN (test code = 7.7 g/dL 6.3-8.2 5540354002) ALBUMIN (test code = 4.6 g/dL 3.5-5.0 4243116360) ALK PHOS (test code = 91 U/L 34-122 4255102392) ALTv (test code = 24 U/L 5-50 1742-6) AST(SGOT) (test code = 31 U/L 13-40 2468662691) eGFR (test code = mL/min/1.73m2 8962324673) GEORGIE (test code = GEORGIE) Association of [...] tests). Lab Interpretation Abnormal (test code = 36433-9) [facility] SouthACTIVATED PARTIAL THRMPLAS [id number] 15:52:36 Test Item Value Reference Range Interpretation Comments APTT Patient (test See_Comment [Automat ed code = 3173-2) message] The system which generated this result transmitted reference range : 23 - 38 Seconds . The reference range was not used to interpr et this result as normal/abnormal . GEORGIE (test code = GEORGIE) The [facility] patient population mean normal value for aPTT is 30 seconds. Lab Interpretation Normal (test code = 95403-6) [facility] SouthPROTHROMBIN TIME / [id number] 15:50:30 Test Item Value Reference Range Interpretation Comments [...] tions. Lab Interpretation (test Normal code = 70415-9) [facility] SouthCBC WITH [id number] 15:42:54 Test Item Value Reference Range Interpretation Comments WBC (test code = See_Comment [Automated 9990-2) message] The sy stem which generated this result transmitted reference range : 4.20 - 10.70 10*3/?L. The reference range was not used to interpret this result as normal/abnormal . RBC (test code = See_Comment [Automated 329-8) message] The sy stem which generated this result transmitted reference range : 4.26 - 5.52 10*6/?L. The reference range was not used to interpret this result as normal/abnormal . HGB (test code = 15.6 g/dL 12.2-16.4 718-7) HCT (test code = 45.1 % 38.4-49.3 4544-3) MCV (test code = 89.3 fL 81.7-95.6 787-2) MCH (test code = 30.9 pg 26.1-32.7 785-6) MCHC (test code = 34.6 g/dL 31.2-35.0 786-4) RDW-SD (test code = 44.1 fL 38.5-51.6 51651-1) RDW-CV (test code = 13.3 % 12.1-15.4 788-0) PLT (test code = See_Comment [Automated 777-3) message] The sy stem which generated this result transmitted reference range : 150 - 328 10*3/ ?L. The reference r johan was not used to interpret this result as normal/abnormal . MPV (test code = 9.7 fL 9.8-13.0 L 26998-5) NRBC/100 WBC (test See_Comment [Automat ed code = 1680712951) message] The system which generated this result transmitted reference range : 0.0 - 10.0 /100 WBCs. The refer ence range was not u sed to interpret th is result as normal/abnormal . NRBC x10^3 (test code <0.01 See_Comment [Auto mated = 0205087323) message] The s ystem which generated this result transmitted reference range : 10*3/?L. The reference range was not used to interpret this result as normal/abnormal . GRAN MAT (NEUT) % 77.6 % (test code = 770-8) IMM GRAN % (test code 0.60 % = 4030890917) LYMPH % (test code = 13.7 % 736-9) MONO % (test code = 7.7 % 5905-5) EOS % (test code = 0.2 % 713-8) BASO % (test code = 0.2 % 706-2) GRAN MAT x10^3(ANC) 7.68 10*3/uL 1.99-6.95 H (test code = 1951415283) IMM GRAN x10^3 (test 0.06 10*3/uL 0.00-0.06 code = 2292814807) LYMPH x10^3 (test code 1.35 10*3/uL 1.09-3.23 = 731-0) MONO x10^3 (test code 0.76 10*3/uL 0.36-1.02 = 742-7) EOS x10^3 (test code = <0.03 0.06-0.53 L 711-2) BASO x10^3 (test code <0.03 0.01-0.09 = 704-7) Lab Interpretation Abnormal (test code = 46780-0) [facility] SouthSARS-CoV-2 ORF1ab Resp Ql [id number] 19:38:49 Test Item Value Reference Range Interpretation Comments Hospitalized? (test Yes code = 49454-2) ICU? (test code = No 61057-7) Symptomatic as defined No by CDC? (test code = 09576-5) Employed in No Healthcare? (test code = 53223-3) Resident in a No congregate care setting (including nursing homes, residential care for people with intellectual and developmental disabilities, psychiatric treatment facilities, group homes, board and care homes, homeless usp, foster care or other): (test code = 36478-0) SARS-CoV-2 ORF1ab Resp NOT DETECTED Not Detected INTER PRETATION: No Ql BETY+probe (test detectabl e levels code = 40690-1) of SARS-CoV- 2 Coronavirus (COVID-19) were present [...] n with SARS-CoV-2 Coronavirus (COVID-19). COMMENT: This BIBA [employer] SARS-CoV-2 molecular diagnostic assay utilizes Roll Scale Worker Mediated Amplification (TMA) technology to rapidly detect the SARS-CoV-2 (COVID-19) virus from respiratory samples. In accordance with the FDA's guidance document "Policy for Diagnostic Tests for Coronavirus Disease- 2019 during the Public Health Emergency", this test was developed, and its performance characteristics were verified by the [facility] molecular diagnostics laboratory and is authorized for clinical diagnostic use. This laboratory is certified under the Clinical Laboratory Improvement Amendments (CLIA) as qualified to perform high complexity clinical laboratory testing.SARS-CoV-2 RNA Resp Ql [id number]+[id number] 22:20:00 Test Item Value Reference Range Interpretation Comments Hospitalized? (test Yes code = 82393-5) ICU? (test code = No 72912-6) Symptomatic as defined No by CDC? (test code = 27617-7) Employed in Unknown Healthcare? (test code = 79892-8) Resident in a Unknown congregate care setting (including nursing homes, residential care for people with intellectual and developmental disabilities, psychiatric treatment facilities, group homes, board and care homes, homeless usp, foster care or other): (test code = 45110-1) SARS-CoV-2 RNA Resp Ql NOT DETECTED Not Detected INTER PRETATION: No BETY+probe (test code = detec table levels 48767-6) of SARS-CoV-2 Coronavirus (COVID-19) were present in [...] its performance characteristics were verified by the [facility] molecular diagnostics laboratory and is authorized for clinical diagnostic use. This laboratory is certified under the Clinical Laboratory Improvement Amendments (CLIA) as qualified to perform high complexity clinical laboratory testing.SARS-CoV-2 ORF1ab Resp Ql BETY+[id number] 14:59:31 Test Item Value Reference Range Interpretation Comments Hospitalized? (test Yes code = 11678-6) ICU? (test code = Yes 461339-5) Symptomatic as defined No by CDC? (test code = 01711-6) Employed in No Healthcare? (test code = 24593-0) Resident in a No congregate care setting (including nursing homes, residential care for people with intellectual and developmental disabilities, psychiatric treatment facilities, group homes, board and care homes, homeless usp, foster care or other): (test code = 08942-7) SARS-CoV-2 ORF1ab Resp NOT DETECTED Not Detected INTER PRETATION: No Ql BETY+probe (test detectabl e levels code = 62751-4) of SARS-CoV- 2 Coronavirus (COVID-19) were present [...] n with SARS-CoV-2 Coronavirus (COVID-19). COMMENT: This [employer] SARS-CoV-2 molecular diagnostic assay utilizes Roll Scale Worker Mediated Amplification (TMA) technology to rapidly detect the SARS-CoV-2 (COVID-19) virus from respiratory samples. In accordance with the FDA's guidance document "Policy for Diagnostic Tests for Coronavirus Disease- 2019 during the Public Health Emergency", this test was developed, and its performance characteristics were verified by the [facility] molecular diagnostics laboratory and is authorized for clinical diagnostic use. This laboratory is certified under the Clinical Laboratory Improvement Amendments (CLIA) as qualified to perform high complexity clinical laboratory testing.SARS-CoV-2 RNA Resp Ql BETY+[id number] 00:53:33 Test Item Value Reference Range Interpretation Comments Hospitalized? (test code Yes = 32194-0) ICU? (test code = No 72321-9) Symptomatic as defined No by CDC? (test code = 09779-2) Employed in Healthcare? No (test code = 11178-8) Resident in a congregate No care setting (including nursing homes, residential care for people with intellectual and developmental disabilities, psychiatric treatment facilities, group homes, board and care homes, homeless usp, foster care or other): (test code = 17571-6) ? (test code = No 91417-4) SARS-CoV-2 RNA Resp Ql DETECTED Not Detected A INTER PRETATION: This BETY+probe (test code = [place] 804[address]-2) detectable RNA present for the SARS-CoV-2 Coronavirus [...] its performance characteristics were verified by the [facility] molecular diagnostics laboratory and is authorized for [...] NONE A MUCU) DRUGS OF ABUSE SCREEN [id number] 13:19:00 Test Item Value Reference Interpretation Comments [...] this result as normal/abnormal . BASIC METABOLIC [id number] 09:24:00 Test Item Value Reference Range Interpretation [...] message] (test code = Index/DL The system [employer]) generated this result transmit isai reference range [...] this result as normal/abnormal . HEPATIC FUNCTION [id number] 09:24:00 Test Item Value Reference Range Interpretation [...] 59 Unit/L 45-117 N code = ALKP) [id number] 09:24:00 Test Item Value Reference Range Interpretation Comments ACETAMINOPHEN (test code = ACET) <2.0 mcG/ML 10.0-30.0 L [id number] 09:24:00 Test Item Value Reference Range Interpretation Comments ALCOHOL (test code = < 3 MG/DL 0-10 N MEDICAL ALCOHOL ALC) RESULTS. SITE W PREPPED WITH BE TADINE. <10 MG/DL ARE CONSIDERED NEGA TIVE. >400 MG/DL MAY BE FATAL.RESULTS F OR MEDICAL USE ONL Y. NOT TO BE USED FOR FORENSIC PURPOSES. [id number] 07:55:00 Test Item Value Reference Range Interpretation Comments SALICYLATE (test code < 1.7 MG/DL See_Comment L RESULT <2.8 IS = SMITH) CONSIDERED NEGA TIVE FOR SALICYLATE. [Automated mess age] The system Action[employer] generated this result transmitted ref erence range: 2.8-20.0 THER. The reference r johan was not used to interpret this result as normal/abnor mal. CBC W/AUTO [id number] 07:10:00 Test Item Value Reference Range Interpretation [...] 0.00 K/mm3 0.00-0.05 N NRBC#) ECG 12 [id number] 22:52:05 Test Item Value Reference Range Interpretation Comments Ventricular rate (test code = 253) Atrial rate (test code = 255) SD interval (test code = 266) QRSD interval [...] available-Electronica lly Signed By Doron Judge MD ([id number]) on 11/26/2020 5:52:04 PM [facility] [id number] 07:28:23 Test Item Value Reference Range Interpretation Comments Urine culture (test SEE COMMENT Bacteriu [place] screen code = 4391665) negative. [facility] METABOLIC [id number] 09:20:00 Test Item Value Reference Range Interpretation [...] message] (test code = Index/DL The system [employer] HEMINDEX) generated this result transmit isai reference [...] as normal/abnormal . Specimen comments: CCHEPATIC FUNCTION [id number] 09:20:00 Test Item Value Reference Range Interpretation [...] code = ALKP) Specimen comments: CCTHYROID STIMULATING [id number] 09:20:00 Test Item Value Reference Range Interpretation Comments THYROID STIMULATING HORMONE 0.619 mc IU/ML 0.340-4.820 N (test code = TSH) Specimen comments: [id number] 09:20:00 Test Item Value Reference Range Interpretation [...] change s in troponin levelscharacter istic of [place]. Specimen comments: [id number] 09:20:00 Test Item Value Reference Range Interpretation Comments ACETAMINOPHEN (test code = ACET) <2.0 mcG/ML 10.0-30.0 L Specimen comments: [id number] 09:20:00 Test Item Value Reference Range Interpretation Comments ALCOHOL (test code = < 3 MG/DL 0-10 N MEDICAL ALCOHOL ALC) RESULTS. SITE W PREPPED WITH BE TADINE. <10 MG/DL ARE CONSIDERED NEGA TIVE. >400 MG/DL MAY BE FATAL.RESULTS F OR MEDICAL USE ONL Y. NOT TO BE USED FOR FORENSIC PURPOSES. Specimen comments: [id number] 08:59:00 Test Item Value Reference Range Interpretation Comments SALICYLATE (test code < 1.7 MG/DL See_Comment L RESULT <2.8 IS = SMITH) CONSIDERED NEGA TIVE FOR SALICYLATE. [Automated mess age] The system Action[employer] generated this result transmitted ref erence range: 2.8-20.0 THER. The reference r johan was not used to interpret this result as normal/abnor mal. Specimen comments: [facility] METABOLIC [id number] 08:55:00 Test Item Value Reference Range Interpretation [...] message] (test code = Index/DL The system [employer] HEMINDEX) generated this result transmit isai reference [...] this result as normal/abnormal . Specimen comments: [facility] [id number] 08:55:00 Test Item Value Reference Range Interpretation [...] code = ALKP) Specimen comments: CCTHYROID STIMULATING [id number] 08:55:00 Test Item Value Reference Range Interpretation Comments THYROID STIMULATING HORMONE 0.619 mc IU/ML 0.340-4.820 N (test code = TSH) Specimen comments: [id number] 08:55:00 Test Item Value Reference Range Interpretation [...] change s in troponin levelscharacter istic of [place]. Specimen comments: [id number] 08:55:00 Test Item Value Reference Range Interpretation Comments ACETAMINOPHEN (test code = ACET) mcG/ML 10.0-30.0 Specimen comments: [id number] 08:55:00 Test Item Value Reference Range Interpretation Comments ALCOHOL (test code = < 3 MG/DL 0-10 N MEDICAL ALCOHOL ALC) RESULTS. SITE W PREPPED WITH BE TADINE. <10 MG/DL ARE CONSIDERED NEGA TIVE. >400 MG/DL MAY BE FATAL.RESULTS F OR MEDICAL USE ONL Y. NOT TO BE USED FOR FORENSIC PURPOSES. Specimen comments: CCCBC W/AUTO [id number] 08:10:00 Test Item Value Reference Range Interpretation [...] NRBC#) Specimen comments: CC- XR CHEST 1 [id number] 03:12:00 [facility] ARLINE RA[facility] : 1985 Sex: M FAX: Mahin Smallwood MD [phone] [place]: St: [facility] FAX: Vilma Coker [phone] Patient Name: ARLINE RAO Unit No: [id number] EXAMS: CPT CODE: [id number] XR CHEST 1 V 43827 EXAM: - XR CHEST 1 V HISTORY: [...] CC: Vilma BENNETT Dictated Date/Time: 10/16/2020 (311)Technologist: Dk Hale Transcribed Date/Time: 10/16/2020 (311) By: [email or web address] Orig Print D/T: S: 10/16/2020 (314) TATUM Mcarthur NAME: [address] PHYS: Vilma [place], [place] [address] : 1985 AGE: 35 SEX: M LOC: B.ERS PHONE #: [phone] EXAM DATE: 10/16/2020 STATUS: REG ER FAX #: [phone] RAD NO: DC Dt: PAGE 1 Signed ReportCOVID 19 Asymptomatic IH [id number] 06:58:00 Test Item Value Reference Range Interpretation Comments COVID 19 Asymptomatic IH AG (test POSITIVE Negative A code = COVNONPUIAG) BASIC METABOLIC [id number] 04:22:00 Test Item Value Reference Range Interpretation [...] 8.3 mg/dL 8.4-10.2 L CA) LIVER FUNCTION [id number] 04:22:00 Test Item Value Reference Range Interpretation [...] U/L 38-126 N (test code = ALKP) [id number] 04:22:00 Test Item Value Reference Range Interpretation Comments ALCOHOL (test code = < 10 mg/dL <10 ALC) ~~~~~~~~~~~~~~~ ~~~~~~~ ~~~~~~~~~~~~~~~ ~~~~~~~ ~~~~~~ RESU LTS ARE TO BE USED FOR MEDICAL PURPOSES ONLY.F OR LEGAL PURPOSES THE SPECIMEN MUST B E COLLECTED BY A CHAINOF CUSTODY. LEGAL TESTING IS NOT PERFORME D BY THIS FACILITY. ~~~~~~~~~~~~~~~ ~~~~~~~ ~~~~~~~~~~~~~~~ ~~~~~~~ ~~~~~~ CBC W/AUTO [id number] 04:08:00 Test Item Value Reference Range Interpretation [...] 0.02 x10 3/uL 0.0-0.1 N [id number] 17:19:00 Test Item Value Reference Range Interpretation Comments Coronavirus 2019 [facility] Bedside (test Negative Neg code = [id number]) [id number] 13:14:00 Test Item Value Reference Range Interpretation Comments SALICYLATE (test code < 1.7 MG/DL See_Comment L RESULT <2.8 IS = SMITH) CONSIDERED NEGA TIVE FOR SALICYLATE. [Automated mess age] The system [employer] generated this result transmitted ref erence range: 2.8-20.0 THER. The reference r johan was not used to interpret this result as normal/abnor mal. BASIC METABOLIC [id number] 13:03:00 Test Item Value Reference Range Interpretation [...] message] (test code = Index/DL The system [employer] HEMINDEX) generated this result transmit isia reference range : 1 NORMAL. The reference [...] this result as normal/abnormal . HEPATIC FUNCTION [id number] 13:03:00 Test Item Value Reference Range Interpretation [...] 87 Unit/L 45-117 N code = ALKP) [id number] 13:03:00 Test Item Value Reference Range Interpretation Comments ACETAMINOPHEN (test code = ACET) <2.0 mcG/ML 10.0-30.0 L [id number] 13:03:00 Test Item Value Reference Range Interpretation Comments ALCOHOL (test code = < 3 MG/DL 0-10 N MEDICAL ALCOHOL ALC) RESULTS. SITE W PREPPED WITH BE TADINE. <10 MG/DL ARE CONSIDERED NEGA TIVE. >400 MG/DL MAY BE FATAL.RESULTS F OR MEDICAL USE ONL Y. NOT TO BE USED FOR FORENSIC PURPOSES. DRUGS OF ABUSE SCREEN [id number] 12:38:00 Test Item Value Reference Interpretation Comments [...] message] The code = OPIATURN) (NEG) system [employer] h generated SCcutoff this result tra nsmitted [...] this result as normal/abnormal . BASIC METABOLIC [id number] 12:37:00 Test Item Value Reference Range Interpretation [...] message] (test code = Index/DL The system [employer] HEMINDEX) generated this result transmit isai reference [...] this result as normal/abnormal . HEPATIC FUNCTION [id number] 12:37:00 Test Item Value Reference Range Interpretation [...] 87 Unit/L 45-117 N code = ALKP) [id number] 12:37:00 Test Item Value Reference Range Interpretation Comments ACETAMINOPHEN (test code = ACET) mcG/ML 10.0-30.0 [id number] 12:37:00 Test Item Value Reference Range Interpretation Comments ALCOHOL (test code = < 3 MG/DL 0-10 N MEDICAL ALCOHOL ALC) RESULTS. SITE W PREPPED WITH BE TADINE. <10 MG/DL ARE CONSIDERED NEGA TIVE. >400 MG/DL MAY BE FATAL.RESULTS F OR MEDICAL USE ONL Y. NOT TO BE USED FOR FORENSIC PURPOSES. CBC W/AUTO [id number] 12:02:00 Test Item Value Reference Range Interpretation [...] code = 0.00 K/mm3 0.00-0.05 N NRBC#) [id number] 23:33:00 Test Item Value Reference Range Interpretation [...] change s in troponin levelscharacter istic of [place]. B-TYPE NATRIURETIC [id number] 19:24:00 Test Item Value Reference Range Interpretation Comments B-TYPE NATRIURETIC PEPTIDE < 30.00 PG/ML 0.00-100.00 N (test code = BNP) URINALYSIS [id number] 15:43:00 Test Item Value Reference Range Interpretation [...] a.STF.VT15 AT 08/11/20 1302DRUGS OF ABUSE SCREEN [id number] 15:43:00 Test Item Value Reference Interpretation Comments [...] normal/abnormal . PENDING RECEIPT OF SPECIMEN PER dustin.STF.VT15 AT 08/11/20 1302URINALYSIS COMPLETE 2020-08-11 15:43:00 Test [...] (0.00) See_Comment [Autom ated (test code = NAERSH) mg/dL message] T he system which generated [...] A MUCU) PENDING RECEIPT OF SPECIMEN PER a.ST.VT15 AT 08/11/20 1302DRUGS OF ABUSE SCREEN [id number] 15:43:00 Test Item Value Reference Interpretation Comments [...] RECEIPT OF SPECIMEN PER a.STF.VT15 AT 08/11/20 1302- XR HAND 3 + V LT 2020-08-11 13:43:00 [facility]: ARLINE RAO : 1985 Sex: M FAX: Lan gAee MD [phone] [place]: E St: PRE Patient Name: RAOARLINE Unit No: [id number] EXAMS: CPT CODE: [id number] XR HAND 3 + V LT [address]30 EXAM: - XR HAND 3 + V [...] CC: Lan Cooper MD Dictated Date/Time: 08/11/2020 (1343)Technologist: Damaris Martinez Transcribed Date/Time: 08/11/2020 (1343) By: [email or web address] Orig Print D/T: S: 08/11/2020 (0547) TATUM Mcarthur NAME: EDMUND RAO [address] PHYS: Lan Dykes [place], [place] [address] : 1985 AGE: 34 SEX: M LOC: B.ERS PHONE #: [phone] EXAM DATE: 08/11/2020 STATUS: PRE ER FAX #: [phone] RAD NO: DC Dt: PAGE 1 Signed Report- XR CHEST 1 [id number] 13:41:00 [facility]: ARLINE RAO : 1985 Sex: M FAX: Lan Agee MD [phone] [place]: E St: PRE Patient Name: ARLINE RAO Unit No: [id number] EXAMS: CPT CODE: [id number] XR CHEST 1 V 73269 EXAM: - XR CHEST 1 V Location [...] CC: Lan Cooper MD Dictated Date/Time: 08/11/2020 (1341)Technologist: Damaris Martinez Transcribed Date/Time: 08/11/2020 (1341) By: [email or web address] Orig Print D/T: S: 08/11/2020 (1093) TATUM Mcarthur NAME: JALENARLINE [address] [place], [place] [address] PHYS: Lan [place], [place] [address] : 1985 AGE: 34 SEX: M LOC: B.ERS PHONE #: [phone] EXAM DATE: 08/11/2020 STATUS: PRE ER FAX #: [phone] RAD NO: DC Dt: PAGE 1 Signed ReportCOMPREHENSIVE METABOLIC [id number] 12:50:00 Test Item Value Reference Range Interpretation [...] (test code = MG Index/DL The system Action[employer] HEMINDEX) generated this result transmit isai reference [...] to interpret this result as normal/abnormal . [id number] 12:50:00 Test Item Value Reference Range Interpretation [...] change s in troponin levelscharacter istic of [place]. [id number] 12:50:00 Test Item Value Reference Range Interpretation Comments ACETAMINOPHEN (test code = ACET) < 2.0 mcG/ML 10.0-30.0 L [id number] 12:50:00 Test Item Value Reference Range Interpretation Comments ALCOHOL (test code = <3 MG/DL 0-10 N MEDICAL ALCOHOL RESULTS. ALC) SITE WAS PREPPE D WITH BETADINE. <10 MG/DL ARE CONSI DERED NEGATIVE. >400 MG/DL MAY BE FATAL.RESULTS F OR MEDICAL USE ONL Y. NOT TO BE USED FOR FOR ENSIC PURPOSES. [id number] 12:39:00 Test Item Value Reference Range Interpretation Comments SALICYLATE (test code 3.1 MG/DL See_Comment N [Auto mated message] = SMITH) The system [employer] generated this result transmitted ref erence range: 2.8-20.0 THER. The reference r johan was not used to interpret this result as normal/abnor mal. COMPREHENSIVE METABOLIC [id number] 12:39:00 Test Item Value Reference Range Interpretation [...] (test code = MG Index/DL The system [employer] HEMINDEX) generated this result transmit isai reference [...] to interpret this result as normal/abnormal . [id number] 12:39:00 Test Item Value Reference Range Interpretation [...] change s in troponin levelscharacter istic of [place]. [id number] 12:39:00 Test Item Value Reference Range Interpretation Comments ACETAMINOPHEN (test code = ACET) < 2.0 mcG/ML 10.0-30.0 L [id number] 12:39:00 Test Item Value Reference Range Interpretation Comments ALCOHOL (test code = ALC) MG/DL 0-10 COMPREHENSIVE METABOLIC [id number] 12:34:00 Test Item Value Reference Range Interpretation [...] (test code = MG Index/DL The system [employer] HEMINDEX) generated this result transmit isai reference [...] to interpret this result as normal/abnormal . [id number] 12:34:00 Test Item Value Reference Range Interpretation Comments TROPONIN-I (test code = TROPI) NG/ML 0.000-0.045 [id number] 12:34:00 Test Item Value Reference Range Interpretation Comments ACETAMINOPHEN (test code = ACET) < 2.0 mcG/ML 10.0-30.0 L [id number] 12:34:00 Test Item Value Reference Range Interpretation Comments ALCOHOL (test code = ALC) MG/DL 0-10 CBC W/AUTO [id number] 12:23:00 Test Item Value Reference Range Interpretation [...] 0.00 K/mm3 0.00-0.05 N NRBC#) CBC WITH [id number] 09:49:19 Test Item Value Reference Range Interpretation Comments WBC (test code = See_Comment [Automated 9570-2) message] The sy stem which generated this [...] RDW-SD (test code = 42.9 fL 38.5-51.6 21616-1) RDW-CV (test code = 12.4 % 12.1-15.4 788-0) PLT (test code = See_Comment [Automated 777-3) message] The sy stem which generated this result transmitted reference range : 150 - 328 10*3/ ?L. The reference r johan was not used to interpret this result as normal/abnormal . MPV (test code = 9.8 fL 9.8-13.0 64051-0) NRBC/100 WBC (test See_Comment [Automat ed code = 0722015309) message] The system which generated this result transmitted reference range : 0.0 - 10.0 /100 WBCs. The refer ence range was not u sed to interpret th is result as normal/abnormal . NRBC x10^3 (test code <0.01 See_Comment [Auto mated = 1417055571) message] The s ystem which generated this result transmitted reference range : 10*3/?L. The reference range was not used to interpret this result as normal/abnormal . GRAN MAT (NEUT) % 41.9 % (test code = 770-8) IMM GRAN % (test code 0.20 % = 4692682777) LYMPH % (test code = 40.9 % 736-9) MONO % (test code = 13.7 % 5905-5) EOS % (test code = 3.1 % 713-8) BASO % (test code = 0.2 % 706-2) GRAN MAT x10^3(ANC) 1.89 10*3/uL 1.99-6.95 L (test code = 7414667675) IMM GRAN x10^3 (test <0.03 0.00-0.06 code = 3630362126) LYMPH x10^3 (test code 1.85 10*3/uL 1.09-3.23 = 731-0) MONO x10^3 (test code 0.62 10*3/uL 0.36-1.02 = 742-7) EOS x10^3 (test code = 0.14 10*3/uL 0.06-0.53 711-2) BASO x10^3 (test code <0.03 0.01-0.09 = 704-7) Lab Interpretation Abnormal (test code = 83895-1) [facility] [id number] 09:39:48 Test Item Value Reference Range Interpretation Comments TROPONIN I (test 0.002 ng/mL See_Comment [Automated code = 5953248721) message] The system which generated this result [...] ? Lab Interpretation Normal (test code = 32955-1) [facility] MET[facility]OLIC PANEL (51884)2020-07-12 09:22:19 Test Item Value Reference Range Interpretation Comments NA (test code = 135 mmol/L 135-145 2915185143) K (test code = 3.6 mmol/L 3.5-5.0 0067152194) CL (test code = 103 mmol/L 98-108 8091989751) CO2 TOTAL (test code = 26 mmol/L 23-31 6262532559) AGAP (test code = 2-16 5111010222) BUN (test code = 17 mg/dL 7-23 0135996091) GLUCOSE (test code = 98 mg/dL 70-110 8380893128) CREATININE (test code = 0.82 mg/dL 0.60-1.25 4507234169) TOTAL BILI (test code = 1.3 mg/dL 0.1-1.1 H 8484121703) CALCIUM (test code = 8.4 mg/dL 8.6-10.6 L 0394014319) T PROTEIN (test code = 6.6 g/dL 6.3-8.2 7643245367) ALBUMIN (test code = 3.7 g/dL 3.5-5.0 4056652692) ALK PHOS (test code = 81 U/L 34-122 0012258371) ALTv (test code = 51 U/L 5-50 H 1742-6) AST(SGOT) (test code = 68 U/L 13-40 H 9396818295) eGFR (test code = mL/min/1.73m2 3434581328) GEORGIE (test code = GEORGIE) Association of [...] tests). Lab Interpretation Abnormal (test code = 92180-9) [facility], [id number] 09:22:14 Test Item Value Reference Range Interpretation Comments LIPASE (test code = 0642690140) 106 U/L 0-220 Lab Interpretation (test code = Normal 83192-3) [facility] SouthaPTT2021-05-27 09:13:54 Test Item Value Reference Range Interpretation Comments APTT Patient (test See_Comment [Automat ed code = 3173-2) message] The system which generated this result transmitted reference range : 23 - 38 Seconds . The reference range was not used to interpr et this result as normal/abnormal . GEORGIE (test code = GEORGIE) The [facility] patient population mean normal value for aPTT is 30 seconds. Lab Interpretation Normal (test code = 37412-7) [facility] SouthPROTHROMBIN TIME / [id number] 09:11:53 Test Item Value Reference Range Interpretation [...] tions. Lab Interpretation (test Normal code = 25867-8) [facility] SouthCoronavirus 2019 nCoV [id number] 08:52:00 Test Item Value Reference Range Interpretation Comments Coronavirus 2019 Negative NEGATIVE This test h as been nCoV Bedside (test authorize d by FDA under code = [id number]) an EUA for use byauthorized laboratories; This [...] and/o r diagnosis of CO VID-19 under Vwwpjwd97 4(b)(1) of the Act, 21 U.S .C. 360bbb-3(b)(1), unless theauthorizatio n is terminated or r evoked sooner. DRUGS OF ABUSE [id number] 03:16:00 Test Item Value Reference Range Interpretation [...] poses (e.g employment testing). DRUGS OF ABUSE [id number] 02:47:00 Test Item Value Reference Range Interpretation [...] (test code = PHENCU) DRUGS OF ABUSE [id number] 02:38:00 Test Item Value Reference Range Interpretation [...] NEGATIVE (test code = PHENCU) BASIC METABOLIC [id number] 02:34:00 Test Item Value Reference Range Interpretation [...] 9.7 mg/dL 8.4-10.2 N CA) LIVER FUNCTION [id number] 02:34:00 Test Item Value Reference Range Interpretation [...] U/L 38-126 N (test code = ALKP) [id number] 02:34:00 Test Item Value Reference Range Interpretation Comments ACETAMINOPHEN (test code = ACET) <10 ug/mL 10-30 L [id number] 02:34:00 Test Item Value Reference Range Interpretation Comments SALICYLATE (test code < 1.0 mg/dL Negati ve <2.0 = SMITH) mg/dLTherapeuti c Range <20 mg/dL [id number] 02:34:00 Test Item Value Reference Range Interpretation Comments ALCOHOL (test code = < 10 mg/dL <10 ALC) ~~~~~~~~~~~~~~~ ~~~~~~~ ~~~~~~~~~~~~~~~ ~~~~~~~ ~~~~~~ RESU LTS ARE TO BE USED FOR MEDICAL PURPOSES ONLY.F OR LEGAL PURPOSES THE SPECIMEN MUST B E COLLECTED BY A CHAINOF CUSTODY. LEGAL TESTING IS NOT PERFORME D BY THIS FACILITY. ~~~~~~~~~~~~~~~ ~~~~~~~ ~~~~~~~~~~~~~~~ ~~~~~~~ ~~~~~~ URINALYSIS [id number] 02:27:00 Test Item Value Reference Range Interpretation [...] this result as normal/abnormal . CBC W/AUTO [id number] 02:18:00 Test Item Value Reference Range Interpretation [...] x10 3/uL 0.0-0.1 N DRUGS OF ABUSE [id number] 06:47:00 Test Item Value Reference Range Interpretation [...] non-medical pur poses (e.g employment testing). URINALYSIS [id number] 06:29:00 Test Item Value Reference Range Interpretation [...] this result as normal/abnormal . BASIC METABOLIC [id number] 03:28:00 Test Item Value Reference Range Interpretation [...] 9.0 mg/dL 8.4-10.2 N CA) LIVER FUNCTION [id number] 03:28:00 Test Item Value Reference Range Interpretation [...] U/L 38-126 N (test code = ALKP) [id number] 03:28:00 Test Item Value Reference Range Interpretation Comments ACETAMINOPHEN (test code = ACET) <10 ug/mL 10-30 L [id number] 03:28:00 Test Item Value Reference Range Interpretation Comments SALICYLATE (test code < 1.0 mg/dL Negati ve <2.0 = SMITH) mg/dLTherapeuti c Range <20 mg/dL [id number] 03:28:00 Test Item Value Reference Range Interpretation Comments ALCOHOL (test code = < 10 mg/dL <10 ALC) ~~~~~~~~~~~~~~~ ~~~~~~~ ~~~~~~~~~~~~~~~ ~~~~~~~ ~~~~~~ RESU LTS ARE TO BE USED FOR MEDICAL PURPOSES ONLY.F OR LEGAL PURPOSES THE SPECIMEN MUST B E COLLECTED BY A [employer]. LEGAL TESTING IS NOT PERFORME D BY THIS FACILITY. ~~~~~~~~~~~~~~~ ~~~~~~~ ~~~~~~~~~~~~~~~ ~~~~~~~ ~~~~~~ CBC W/AUTO [id number] 00:30:00 Test Item Value Reference Range Interpretation [...] 3/uL 0.0-0.1 N - CT C-SPINE W/O [id number] 23:37:00 Patient Name: ARLINE RAO Unit No: [id number] EXAMS: CPT CODE: [id number] CT C-SPINE W/O CONT 61937 Location: CT cervical spine, 08/29/19 TECHNIQUE: CT [...] CC: Lan Cooper MD Dictated Date/Time: 08/29/2019 (2337) Technologist: Ara Steward CTDI: 16.41 DLP: 366.20 Trnscrpt: 08/29/2019 (2337) HeatherDAS6 [facility] NAME: ARLINE RAO [address] [place] [address] PHYS: Lan Munroe MD, [place] [address] : 1985 AGE: 33 SEX: M LOC: B.ERS PHONE #: [phone] EXAM DATE: 08/29/2019 STATUS: REG ER FAX #: [phone] RAD #: D/C DT PAGE 1 Signed Report Patient Name: ARLINE RAO Unit No: [id number] EXAMS: CPT CODE: [id number] CT C-SPINE W/O CONT 69267 <Continued> Orig Print D/T: S: 08/29/2019 (4356) JYOTI Lyubov NAME: ARLINE RAO [address] [place] [address] Blvd PHYS: Lan Munroe [place], [place] [address] : 1985 AGE: 33 SEX: M LOC: B.ERS PHONE #: [phone] EXAM DATE: 08/29/2019 STATUS: REG ER FAX #: [phone] RAD #: D/C DT PAGE 2 Signed Report- CT HEAD/BRAIN W/O [id number] 23:33:00 Patient Name: ARLINE RAO Unit No: [id number] EXAMS: CPT CODE: [id number] CT HEAD/BRAIN W/O CONT 27774 Location: CT head, 08/29/19 COMPARISON EXAMS: None [...] CC: Lan Cooper MD Dictated Date/Time: 08/29/2019 (2333) Technologist: Ara Steward CTDI: 45.96 DLP: 757.79 Trnscrpt: 08/29/2019 (2332) HeatherDAS6 TATUM Mcarthur NAME: ARLINE RAO [address] [place] [address] PHYS: [place] [address] : 1985 AGE: 33 SEX: M LOC: B.ERS PHONE #:[phone] EXAM DATE: 08/29/2019 STATUS: REG ER FAX #: [phone] RAD #: D/C DT PAGE 1 Signed Report Patient Name: ARLINE RAO Unit No: [id number] EXAMS: CPT CODE: [id number] CT HEAD/BRAIN W/O CONT 13418 <Continued> Orig Print D/T: S: 08/29/2019 (2335) TATUM Mcarthur NAME: ARLINE RAO [address] [place] [address] PHYS: [place] [address] : 1985 AGE: 33 SEX: M LOC: B.ERS PHONE #: [phone] EXAM DATE:08/29/2019 STATUS: REG ER FAX #: [phone] RAD #: D/C DT PAGE 2 Signed ReportCOMPREHENSIVE METABOLIC [id number] 23:28:00 Test Item Value Reference Range Interpretation [...] code = LIPINDEX) MG Index/DL CBC W/AUTO [id number] 23:07:00 Test Item Value Reference Range Interpretation [...] 0.00 K/mm3 0.00-0.05 N NRBC#) BASIC METABOLIC [id number] 14:23:00 Test Item Value Reference Range Interpretation [...] NORMAL code = LIPINDEX) Index/DL HEPATIC FUNCTION [id number] 14:23:00 Test Item Value Reference Range Interpretation [...] 68 Unit/L 45-117 N code = ALKP) [id number] 14:23:00 Test Item Value Reference Range Interpretation Comments ALCOHOL (test code = 3 MG/DL 0-10 N MEDICAL ALCOHOL RESULTS. ALC) SITE WAS PREPPE D WITH BETADINE. <10 MG/DL ARE CONSI DERED NEGATIVE. >400 MG/DL MAY BE FATAL.RESULTS F OR MEDICAL USE ONL Y. NOT TO BE USED FOR FOR ENSIC PURPOSES. BASIC METABOLIC [id number] 14:17:00 Test Item Value Reference Range Interpretation [...] 1 NORMAL = LIPINDEX) Index/DL HEPATIC FUNCTION [id number] 14:17:00 Test Item Value Reference Range Interpretation [...] TOTAL (test code Unit/L 45-117 = ALKP) [id number] 14:17:00 Test Item Value Reference Range Interpretation Comments ALCOHOL (test code = ALC) MG/DL 0-10 CBC W/O [id number] 14:04:00 Test Item Value Reference Range Interpretation [...] = 9.4 fL 7.6-10.4 N MPV) RPR [id number] 14:01:19 Test Item Value Reference Range Interpretation [...] = 12-17-2019 N Expiration Dt) Thyroid Stimulating [id number] 09:09:16 Test Item Value Reference Range Interpretation Comments TSH (test code = TSH) 0.418 mIU/mL 0.270-4.200 Lipid [id number] 08:59:32 Test Item Value Reference Range Interpretation Comments Cholesterol Total 131 mg/dL 0-200 RISK OF HE ART (test code = DISEASEPublishe d by Cholesterol Total) [employer] Giovanna lyte Optimal Borderl ine [...] being used code = LDL/HDL Ratio) in [facility] s calculation is LDL/HDL Ratio=L DL Calc/HDL Chol Thyroid Stimulating [id number] 10:03:42 Test Item Value Reference Range Interpretation Comments TSH (test code = TSH) 1.560 mIU/mL 0.270-4.200 Lipid [id number] 09:52:10 Test Item Value Reference Range Interpretation Comments Cholesterol Total 210 mg/dL 0-200 H RISK OF HE ART (test code = DISEASEPublishe d by Cholesterol Total) [employer] Giovanna lyte Optimal Borderl ine [...] being used code = LDL/HDL Ratio) in [facility] s calculation is LDL/HDL Ratio=L DL Calc/HDL Chol RPR [id number] 11:37:43 Test Item Value Reference Range Interpretation Comments RPR Qual (test code = RPR Qual) Non-Reactive Non-Reactive Reactive Control (test code = Reactive Reactive Control) Weak Reactive Control (test Weak Reactive code = Weak Reactive Control) Non-Reactive Control (test code Non-Reactive = Non-Reactive Control) Lot # (test code = Lot #) [id number] N Expiration Dt (test code = 12-17-19 N Expiration Dt) Urinalysis [id number] 23:07:47 Test Item Value Reference Range Interpretation Comments UA WBC (test code = UA WBC) None Seen 0-5 UA RBC (test code = UA RBC) None Seen 0-5 UA Bacteria (test code = UA None Seen Bacteria) UA Squam Epithelial (test code = UA 0-5 Squam Epithelial) Comprehensive Metabolic [id number] 22:29:50 Test Item Value Reference Range Interpretation [...] A/G 1.7 ratio N Ratio) Comprehensive Metabolic [id number] 22:29:50 Test Item Value Reference Range Interpretation [...] the National Kidney Foundation, http://nkdep.ni h.gov Alcohol [id number] 22:29:50 Test Item Value Reference Range Interpretation Comments Ethanol Level (test 0.06 g/dL 0.00-0.01 H Intoxica isai 0.080 g/dL code = Ethanol or more Level) Ethanol Inst (test 58 N code = Ethanol Inst) Comprehensive Metabolic [id number] 22:29:50 Test Item Value Reference Range Interpretation [...] ag e have not been validated by [facility] MDRD study and should be interpreted wit [...] ag e have not been validated by [facility] MDRD study and should be interpreted wit h caution. eGFR R esult Interpretation: eGFR > or = 60 is in the Normal RangeeGF R < 60 may mean kid tran diseaseeGFR < 1 5 may mean kidney failure Rang es recommended by the National Kidney Foundation, http://nkdep.[facility] [place].gov Complete Blood Count with Mlhyeskidqif8156-18-50 22:14:44 Test Item Value Reference Range Interpretation [...] code = IPF) 0 % N Automated [id number] 22:14:44 Test Item Value Reference Range Interpretation Comments Neutro Auto (test code = Neutro 72.2 % 36.0-70.0 H Auto) Lymph Auto (test code = Lymph Auto) 19.6 % 12.0-44.0 Granite Auto (test code = Granite Auto) 6.9 % 0.0-11.0 Eos, Auto (test code = Eos, Auto) 0.0 % 0.0-7.0 Basophil Auto (test code = Basophil 0.4 % 0.0-2.0 Auto) Neutro Absolute (test code = Neutro 6.1 x10 1.6-7.4 Absolute) Lymph Absolute (test code = Lymph 1.67 x10 .50-4.60 Absolute) Granite Absolute (test code = Granite .59 x10 .00-1.20 Absolute) Eos Absolute (test code = Eos 0.00 x10 0.00-0.74 Absolute) Baso Absolute (test code = Baso 0.03 x10 0.00-0.21 Absolute) IG [id number] 22:14:44 Test Item Value Reference Range Interpretation Comments IG (test code = IG) 0.9 % 0.0-5.0 IG Abs (test code = IG Abs) 0 x10 N Urine Drug [id number] 22:14:38 Test Item Value Reference Range Interpretation [...] if desired . Urinalysis with Microscopic if [id number] 21:53:48 Test Item Value Reference Range Interpretation [...] Ind?) rule GL_SJM_UA_MICRO _IN D Urine Drug Hetbxw1143-03-97 09:31:28 Test Item Value Reference Range Interpretation [...] matory test if desired . Comprehensive Metabolic [id number] 09:17:22 Test Item Value Reference Range Interpretation [...] A/G 2.1 ratio N Ratio) Comprehensive Metabolic [id number] 09:17:22 Test Item Value Reference Range Interpretation [...] National Kidney Foundation, http://nkdep.ni h.gov Comprehensive Metabolic [id number] 09:17:22 Test Item Value Reference Range Interpretation [...] ag e have not been validated by [facility] MDRD study and should be interpreted wit [...] ag e have not been validated by [facility] MDRD study and should be interpreted wit h caution. eGFR R esult Interpretation: eGFR > or = 60 is in the Normal RangeeGF R < 60 may mean kid tran diseaseeGFR < 1 5 may mean kidney failure Rang es recommended by the National Kidney Foundation, http://nkdep.ni h.gov IG Ygtrj1023-43-74 09:08:10 Test Item Value Reference Range Interpretation Comments IG (test code = IG) 0.4 % 0.0-5.0 IG Abs (test code = IG Abs) 0 x10 N Complete Blood Count with [id number] 09:08:09 Test Item Value Reference Range Interpretation [...] code = IPF) 0 % N Automated Rxqhzfxanpdh1186-38-68 09:08:09 Test Item Value Reference Range Interpretation Comments Neutro Auto (test code = Neutro 73.6 % 36.0-70.0 H Auto) Lymph Auto (test code = Lymph Auto) 17.3 % 12.0-44.0 Granite Auto (test code = Granite Auto) 8.3 % 0.0-11.0 Eos, Auto (test code = Eos, Auto) 0.1 % 0.0-7.0 Basophil Auto (test code = Basophil 0.3 % 0.0-2.0 Auto) Neutro Absolute (test code = Neutro 5.1 x10 1.6-7.4 Absolute) Lymph Absolute (test code = Lymph 1.19 x10 .50-4.60 Absolute) Granite Absolute (test code = Granite .57 x10 .00-1.20 Absolute) Eos Absolute (test code = Eos 0.01 x10 0.00-0.74 Absolute) Baso Absolute (test code = Baso 0.02 x10 0.00-0.21 Absolute) ADC / LCC - DRUG SCREEN [id number] 02:56:00 Test Item Value Reference Range Interpretation Comments BENZO U (test code = Negative Negative 4288879774) EARL U (test code = Negative Negative 9338577220) AMPHET (test code = Presumptive Positive Negative A 4269408459) THC (test code = Negative Negative 8029086283) METHADONE (test code = Negative Negative 0128760960) Meth U (test code = Presumptive Positive Negative A 7151514869) OPIATES (test code = Negative Negative 5006853600) Cocaine Metabolite (test Negative Negative code = 9775951457) PROPOXY (test code = Negative Negative 0947921944) Tric U (test code = Negative Negative 9692739142) PCP (test code = Negative Negative 6161301198) OXYCOD (test code = Negative Negative 9396909114) GEORGIE (test code = GEORGIE) Urine Drug [...] testing). Lab Interpretation (test Abnormal code = 08096-3) [facility] 02[facility] Test Item Value Reference Range Interpretation Comments ACETAMINOP (test code = <10.0 10-30 L 1698364636) GEORGIE (test code = GEORGIE) Toxic: Greater than 200 ug/mL @ 4 hour post ingestion or greater than 50 ug/mL @ 12 hour post ingestion Lab Interpretation (test Abnormal code = 61573-1) [facility] South[facility]ic[facility]2019 02:40:00 Test Item Value Reference Range Interpretation Comments SALICYLATE (test code <10 mg/L = 4700558803) GEORGIE (test code = GEORGIE) Therapeutic Range:? Analgesic and Antipyretic Use? 20-100 mg/L? Anti-Inflammatory Use? 100-250 mg/LToxic Range:? Greater than 300 mg/L [facility]Eth[facility] (ETOH) [id number] 02:40:00 Test Item Value Reference Range Interpretation Comments ALCOHOL (test code = <10 mg/dL 2276991136) GEORGIE (test code = GEORGIE) <10 Zthimgnk06-717 Toxic>100 Depression of [employer]>400 Fatalities Reported [facility] (NA, K, CL, CO2, Glucose, BUN, Creatinine, CA)2018-11-05 02:35:00 Test Item Value Reference Range Interpretation Comments NA (test code = 142 mmol/L 135-145 5819819228) K (test code = 3.5 mmol/L 3.5-5 7407859849) CL (test code = 107 mmol/L 98-108 3240156345) CO2 TOTAL (test code = 25 mmol/L 23-31 9988415434) AGAP (test code = 2-16 8838432326) BUN (test code = 12 mg/dL 7-23 5574047048) GLUCOSE (test code = 90 mg/dL 70-110 7342404759) CREATININE (test code 0.77 mg/dL 0.6-1.25 = 0044081653) CALCIUM (test code = 9.3 mg/dL 8.6-10.6 7225954075) eGFR Calculation mL/min/1.73m2 (Non-) (test code = 6115980903) eGFR Calculation mL/min/1.73m2 () (test code = 3406793803) GEORGIE (test code = GEORGIE) Association of [...] or urine or abnormalities in imaging tests). [facility] Function Panel (ALB, T.PRO, BILI T, BU/BC, ALT, AST, ALK PHOS)2018-11-05 02:35:00 Test Item Value Reference Range Interpretation Comments TOTAL BILI (test code = 3825390082) 1.0 mg/dL 0.1-1.1 BILI UNCON (test code = 9771653982) 0.8 mg/dL 0.1-1.1 BILI CONJ (test code = 2897497889) 0.0 mg/dL 0-0.3 T PROTEIN (test code = 4873195560) 7.0 g/dL 6.3-8.2 ALBUMIN (test code = 3929824168) 4.4 g/dL 3.5-5 ALK PHOS (test code = 2490997217) 71 U/L 34-122 ALT(SGPT) (test code = 2427588634) 39 U/L 9-51 AST(SGOT) (test code = 2073551545) 40 U/L 13-40 Lab Interpretation (test code = Normal 62515-4) [facility] WITH [id number] 02:10:00 Test Item Value Reference Range Interpretation [...] RDW-SD (test code = 46.3 fL 38.5-51.6 09068-9) RDW-CV (test code = 13.1 % 12.1-15.4 788-0) PLT (test code = See_Comment [Automated 777-3) message] The sy stem which generated this result transmitted reference range : 150 - 328 10*3/ ?L. The reference r johan was not used to interpret this result as normal/abnormal . MPV (test code = 9.9 fL 9.8-13 97978-3) NRBC/100 WBC (test See_Comment [Automat ed code = 7708874136) message] The system which generated this result transmitted reference range : 0.0 - 10.0 /100 WBCs. The refer ence range was not u sed to interpret th is result as normal/abnormal . NRBC x10^3 (test code <0.01 See_Comment [Auto mated = 0824071006) message] The s ystem which generated this result transmitted reference range : 10*3/?L. The reference range was not used to interpret this result as normal/abnormal . GRAN MAT (NEUT) % 50.8 % (test code = 770-8) IMM GRAN % (test code 0.60 % = 3673832050) LYMPH % (test code = 33.8 % 736-9) MONO % (test code = 14.4 % 5905-5) EOS % (test code = 0.0 % 713-8) BASO % (test code = 0.4 % 706-2) GRAN MAT x10^3(ANC) 2.62 10*3/uL 1.99-6.95 (test code = 8175994744) IMM GRAN x10^3 (test 0.03 10*3/uL 0-0.06 code = 3752774841) LYMPH x10^3 (test code 1.74 10*3/uL 1.09-3.23 = 731-0) MONO x10^3 (test code 0.74 10*3/uL 0.36-1.02 = 742-7) EOS x10^3 (test code = <0.03 0.06-0.53 L 711-2) BASO x10^3 (test code <0.03 0.01-0.09 = 704-7) Lab Interpretation Abnormal (test code = 55566-9) [facility] Metabolic Lbdec7528-14-73 13:14:00 Test Item Value Reference Range Interpretation [...] by the National Kidney Foundation,http ://nkd ep.nih.gov [id number] 13:09:00 Test Item Value Reference Range Interpretation [...] g/dL 0.00-0.01 N code = ETOHU) Urinalysis Szreysel8660-65-87 12:59:00 Test Item Value Reference Range Interpretation Comments Color (test code = Yellow Yellow,Straw,Pl N COLOR) yellow Clarity (test code = Clear Clear N CLAR) Specific [place] (test 1.027 1.001-1.035 N code = SPGR) [...] code = Few /HPF BACT) CBC with Tpnvewoefoqn3530-36-27 12:42:00 Test Item Value Reference Range Interpretation [...] code = ALYMPH) 2.3 K/cumm 0.5-4.6 N Granite Abs (test code = AMONO) 0.6 K/cumm 0.0-1.2 N Eos Abs (test code = AEOS) 0.09 K/cumm 0.00-0.74 N Baso Abs (test code = ABASO) 0.0 K/cumm 0.00-0.21 N Hepatic Function [id number] 18:55:00 Test Item Value Reference Range Interpretation [...] = ALT) 47 U/L 1-41 H HIV [id number] 12:45:00 Test Item Value Reference Range Interpretation Comments HIV 1/2 Antibody Non-Reactive Non-Reactive N HIV1/2 Anti body screen (test code = result indicate s the HIV1/2AB) absence of HIV1 and JIE9jadrgfcnl.H owever, A Non-Reactive screen result does not [...] rule o ut exposure or infection.If ac [place] HIV-1 is suspec isai, HIV RNA Quantit ative is recommended. RPR, Boqi1192-46-48 21:30:00 Test Item Value Reference Range Interpretation Comments RPR (test code = RPR) Non-Reactive Non-Reactive N Thyroid Stimulating Hormone (TSH)2017-03-17 09:55:00 Test Item Value Reference Range Interpretation Comments TSH (test code = TSH) 0.94 mIU/mL 0.270-4.200 N Lipid Bhngtbh1866-12-52 09:53:00 Test Item Value Reference Range Interpretation Comments Cholesterol (test 124 mg/dL 0-200 N code = CHOL) Triglycerides (test 61 mg/dL 9-200 N code = TRIG) HDL (test code = 47 mg/dL 40-60 N HDL) Chol/HDL (test code 2.6 Ratio 0.0-5.0 N = CHOLPHDL) LDL, Calculated 65 0-130 N (NOTE)RISK O F HEART (test code = LDLC) DISEASEPu blished by [place] Heart AssociationAnal yte Optim al Boderline Increased RiskC HOL <200 200-239 >240TRI G <150 150-199 >200HDL Male: >60 <40HDL Female: >60 <50 LDL < 100 130-15 9 >160 LDL NEAR OPTIMAL IS 100- 129 VLDL (test code = 12 mg/dL 5-40 N VLDL) LDL/HDL (test code = 1 LDLPHDL) Urinalysis Gpjwrkrl2169-63-32 15:09:00 Test Item Value Reference Range Interpretation Comments Color (test code = Yellow Yellow,Straw,Pl N COLOR) yellow Clarity (test code = Clear Clear N CLAR) Specific [place] (test 1.028 1.001-1.035 N code = SPGR) [...] = 0-1 Granular /HPF CASTS) Comprehensive Metabolic Vnozf9454-12-14 14:24:00 Test Item Value Reference Range Interpretation [...] by the National Kidney Foundation,http ://nkd ep.nih.gov [id number] 14:20:00 Test Item Value Reference Range Interpretation [...] 0.00-0.01 N code = ETOHU) CBC with Khxdgpavtewl0959-13-39 14:08:00 Test Item Value Reference Range Interpretation [...] code = ALYMPH) 2.2 K/cumm 0.5-4.6 N Granite Abs (test code = AMONO) 0.9 K/cumm 0.0-1.2 N Eos Abs (test code = AEOS) 0.06 K/cumm 0.00-0.74 N Baso Abs (test code = ABASO) 0.0 K/cumm 0.00-0.21 N
[2021-05-08 10:25] LABS: Absolute Lymphocytes (CBC) 1.5 K/uL (0.7-4.9); Hematocrit 41.3 % (39.6-49.0); Lymphocytes % 15.8 % (15.3-44.8); MPV 7.4 fL (7.6-11.3); RBC Red Blood Cell Count 4.62 M/uL (4.33-5.43)
[2021-05-08 10:31] LABS: Protime INR 1.04
[2021-05-08 10:49] LABS: ALT/SGPT 27 U/L (12-78); AST/SGOT 16 U/L (15-37); Albumin 3.4 g/dL (3.4-5.0); Alkaline Phosphatase 85 U/L (45-117); BUN Blood Urea Nitrogen 11 mg/dL (7-18); Bicarbonate 25 mmol/L (21-32); Bilirubin Direct 0.2 mg/dL (0-0.2); Bilirubin Total 0.7 mg/dL (0.2-1.0); Glucose Level 88 mg/dL (74-106); Potassium 3.3 mmol/L (3.5-5.1); Protein, Total 7.9 g/dL (6.4-8.2); Sodium Level 136 mmol/L (136-145)
[2021-05-08 10:50] LABS: Troponin High Sensitivity < 3.00 pg/mL (<58.9)
--- NOTE | 2021-05-08 11:45 | RAD REPORT ---
EXAM DESCRIPTION: CT - Chest For Pe Angio - 05/08/2021 11:25 am CLINICAL HISTORY: Chest pain. CHEST PAIN COMPARISON: THORAX WO CONTRAST dated 01/29/2011 TECHNIQUE: CT angiogram of the pulmonary arteries was performed with MIP. All CT scans are performed using dose optimization technique as appropriate and may include automated exposure control or mA/KV adjustment according to patient size. FINDINGS: No evidence of pulmonary thromboembolism. No acute aortic finding demonstrated. Mild linear atelectasis is present in the right lung base laterally. The lungs are otherwise clear. No significant pericardial or pleural fluid. No concerning bony finding. IMPRESSION: No evidence of pulmonary thromboembolism. Areas of atelectasis are seen in the right lung base.
[2021-05-08] MEDS ORDERED: VANCOMYCIN 1 GM/VIAL ONE (11:49)
[2021-05-08] MEDS ORDERED: NA CHLORIDE 0.9% 250 ML ONE (11:50)
[2021-05-08] MEDS ORDERED: LORazepam 2 MG/ML VIAL ONE (11:51)
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
--- NOTE | 2021-05-09 07:45 | EKG ---
Test Date: 2021-05-08 Test Time: 10:36:33 Commercial Loan Reviewer: MEASUREMENT RESULTS: Intervals: Rate: 119 ID: [id number] QRSD: 86 QT: 310 QTc: 436 [place]: P: 36 ID: [id number] QRS: 70 T: 13 INTERPRETIVE STATEMENTS: Sinus tachycardia Otherwise normal ECG Compared to ECG 05/06/2021 19:02:54 Myocardial infarct finding no longer present Electronically Signed On 05-09-21 07:41:35 CDT by Cj Anderson
[2021-05-09] MEDS ORDERED: DOXYCYCLINE 100 MG CAP PO ONE (10:47)
[2021-05-09] MEDS ORDERED: SMZ./TMP. 800/160 MG TABLET ONE (10:47)
[2021-05-09 18:23] VITALS: TEMP 98.6
[2021-05-09 18:27] VITALS: O2SAT 100
[2021-05-09 18:30] VITALS: BP 123/79
== END 2021-05-09 17:24 | disposition home or self-care (01) ==
LOC: ER 09:32
PROC: 0J990ZZ Drainage of Buttock Subcutaneous Tissue and Fascia, Open Approach (ICD-10-PCS; principal; 2021-05-09)
DX: R07.9 Chest pain, unspecified (principal); L02.31 Cutaneous abscess of buttock; F41.9 Anxiety disorder, unspecified; F17.210 Nicotine dependence, cigarettes, uncomplicated; Z88.5 Allergy status to narcotic agent; Z88.6 Allergy status to analgesic agent; Z88.8 Allergy status to other drugs, medicaments and biological substances
CPT/HCPCS: 93005; 87040 ×2; 85025; 80048; 36415; 80320; 82550; 80329 ×2; 85610; 80076; 83605; 85730; 84484; 84145; 71275; 51702; 96375; 96374; 99285; 10060; Q9967; J3370; J7050

== ENCOUNTER 2021-05-17 04:35 | Emergency (ER) | payer OTHER ==
--- OUTSIDE RECORDS SUMMARY | 2021-05-17 04:43 | XMS REPORT | Continuity of Care Document ---
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 2021-01-18 Inpatient [facility] [id number] H arris 00:00:[address] [facility] 2021-01-17 Inpatient [facility] [id number] H arris 00:00:[address] [facility] 2021-01-16 Inpatient [facility] [id number] H arris 00:00:[address] [facility] 2021-01-15 Inpatient MORRIS RUN, [facility] [id number] [place] 00:00:00 [facility] 2021-01-13 Inpatient [facility] [id number] H arris 00:00:[address] [facility] 2021-01-12 Inpatient [facility] [id number] H arris 00:00:[address] [facility] 2021-01-11 Inpatient [facility] [id number] H arris 00:00:[address] [facility] 2021-01-10 Inpatient [facility] [id number] H arris 00:00:[address] [facility] 2021-01-09 Inpatient [facility] [id number] H arris 00:00:[address] [facility] 2021-01-08 Inpatient YULI, [facility] [id number] [place] 00:00:00 [facility] 2021-01-06 Inpatient [facility] [id number] H arris 00:00:[address] [facility] 2021-01-05 Inpatient YULI, [facility] [id number] [place] 00:00:00 [facility] 2021-01-04 Inpatient YULI, [facility] [id number] [place] 00:00:00 [facility] 2021-01-03 Inpatient YULI, [facility] [id number] [place] 00:00:00 [facility] 2021-01-02 Inpatient [facility] [id number] H arris 00:00:[address] [facility] 2020-12-30 Inpatient 1 MAREK, [facility] [id number] H arris 22:32:00 BUSHRA Reid 2020-12-30 Inpatient LORENE, [facility] [id number] [place] 00:00:00 [facility] 2020-12-30 [facility] [id number] [place] 00:00:00 [facility] 2020-05-17 Inpatient HCAKW MALIKA [id number] [facility] 01:21:00 [id number] [facility] 2020-05-14 Inpatient HCAKW MALIKA [id number] [facility] 23:22:00 [id number] [facility] 2019-08-29 Inpatient HCACR MALIKA [id number] [facility] 22:17:00 [id number] [facility] 2019-06-22 Inpatient HCACR MALIKA [id number] [facility] 13:23:00 [id number] [facility] 2021-05-07 2021-05-08 Outpatient X OBED [facility] [id number] [place] 08:26:00 04:30:00 MARTIN pinto [facility] 2021-05-07 2021-05-08 Emergency Tono Roberto [facility] [id number] Univers 08:26:00 04:30:00 [facility].10 [facility] 4.2.7.2.686 [facility] [id number] [address] 2021-03-28 2021-03-28 Outpatient PAULSON, [facility] [id number] [place] 00:00:00 00:00:00 PRIMOARLEY maldonado 2021-03-20 2021-03-20 Outpatient PASCUAL MAHAN [facility] [id number] [place] 00:00:00 00:00:[address] [facility] 2020-12-30 2021-02-28 [facility] [id number] [place] 22:32:00 18:41:00 BUSHRA Heal 2020-12-30 2021-02-28 [facility] [id number] [place] 22:32:00 18:41:00 BUSHRA Heal 2021-02-15 2021-02-15 Inpatient [facility] [id number] [place] 10:50:13 11:18:[address] [facility] 2021-02-14 2021-02-14 Inpatient [facility] [id number] [place] 16:43:15 18:41:[address] [facility] 2021-02-14 2021-02-14 Inpatient [facility] [id number] [place] 07:24:16 09:18:[address] [facility] 2021-01-31 2021-01-31 Inpatient [facility] [id number] [place] 01:03:14 03:25:[address] [facility] 2021-01-25 2021-01-25 Inpatient [facility] [id number] [place] 01:35:50 03:05:[address] [facility] 2021-01-23 2021-01-23 Inpatient [facility] [id number] [place] 02:10:17 04:59:[address] [facility] 2021-01-21 2021-01-21 Inpatient VIKASH [facility] [id number] [place] 15:43:59 16:18:10 VANE Joce maldonado 2021-01-13 2021-01-13 Inpatient [facility] [id number] [place] 16:20:12 17:12:[address] [facility] 2021-01-07 2021-01-07 Inpatient [facility] [id number] [place] 18:28:43 18:28:[address] [facility] 2021-01-07 2021-01-07 Inpatient [facility] [id number] [place] 00:12:42 01:07:[address] [facility] 2021-01-04 2021-01-04 Inpatient [facility] [id number] [place] 17:11:58 18:14:[address] [facility] 2021-01-04 2021-01-04 Inpatient KARYN, [facility] [id number] [place] 13:40:49 15:55:[address] [facility] 2021-01-03 2021-01-03 Inpatient [facility] [id number] [place] 17:58:59 17:59:[address] [facility] 2021-01-01 2021-01-01 Inpatient [facility] [id number] [place] 16:44:03 16:44:[address] [facility] 2021-01-01 2021-01-01 Inpatient EMMA, [facility] [id number] [place] 08:36:00 09:12:12 [facility] 2021-01-01 2021-01-01 Inpatient [facility] [id number] [place] 07:46:21 08:35:[address] [facility] 2021-01-01 2021-01-01 Inpatient YULI, [facility] [id number] [place] 02:09:24 03:31:22 [facility] 2020-12-31 2020-12-31 Inpatient MAREK, [facility] [id number] [place] 05:17:16 06:34:53 BUSHRA [facility] 2020-12-31 2020-12-31 Inpatient [facility] [id number] [place] 01:50:33 06:34:[address] [facility] 2020-12-31 2020-12-31 Inpatient [facility] [id number] [place] 03:50:31 04:54:[address] [facility] 2020-12-31 2020-12-31 Inpatient [facility] [id number] [place] 01:43:22 04:38:47 Health 2020-12-30 2020-12-30 Emergency [facility] [id number] [place] 22:46:36 23:04:[address] [facility] 2020-12-30 2020-12-30 Emergency [facility] [id number] [place] 22:46:20 23:04:03 Health 2020-12-30 2020-12-30 Emergency [facility] [id number] [place] 22:47:41 23:03:11 Health 2020-12-30 2020-12-30 Emergency LAKHWINDER, [facility] [id number] [place] 00:00:00 00:00:00 [facility] 2020-12-20 2020-12-20 Emergency EM Ardeel, HCACR HCACR [id number] [facility] 06:26:00 16:34:00 Erich 52 [facility] 2020-12-20 2020-12-20 Emergency EM Uziel, HCACR MALIKA [id number] [facility] 06:26:00 16:34:00 Erich [id number] [facility] 2020-11-15 2020-11-16 Emergency Eusebia Bland 1.2.840 .1 [id number] Methodi 00:55:00 14:35:00 William Nunes 92052.1.1 84 8 [facility]7 [facility] .3.709219 l .8 2020-11-14 2020-11-14 Emergency Manju 1.2.840.1 [id number] Methodi 15:47:00 16:03:00 William Langston 22631.1.[address] 3.430.2.7 Hospit a .3.025166 l .8 2020-10-22 2020-10-24 [facility] Kingsley Dennis JimenezBlayne 1.2.840.1 [id number] Methodi 16:52:00 16:26:00 Encounter Pepito Lauren 23717.1.[address] Jessica Awad 3.430.2.7 [facility] .3.977086 l .8 2020-10-16 2020-10-16 Emergency EM Hunter, HCACR MALIKA [id number] [facility] 00:20:00 08:00:00 Danish [id number] [facility] 2020-10-06 2020-10-06 Emergency EM Zia, HCAKW MALIKA [id number] [facility] 01:57:00 20:14:00 Darlene [id number] [facility] 2020-09-05 2020-09-05 Emergency EM Michael Montero MARINO DALY [id number] [facility] 11:17:00 18:22:00 [id number] [facility] 2020-09-03 2020-09-03 Emergency EM Edvin, HCACR MALIKA [id number] [facility] 03:35:00 15:00:00 Farhad [id number] [facility] 2020-09-02 2020-09-03 Emergency EM Michael Montero HCACR MALIKA [id number] [facility] 23:16:00 01:53:00 [id number] [facility] 2020-08-11 2020-08-12 Emergency EM Giovanni-Kenneth, HCACR MALIKA [id number] 52-2 [facility] 11:12:00 00:40:00 Lan [id number] [facility] 2020-07-12 2020-07-12 Emergency [facility] 1.2.371.137 [id number] 03:16:00 05:05:00 Michael Nichols 350.1.13.10 [place] 4.2.7.2.[address] [place] [id number] [facility] 2020-07-12 2020-07-12 Emergency [facility] 1.2.080.247 [id number] [facility] 03:16:00 05:05:00 Michael Nichols [facility]13.10 [facility] 4.2.7.2.686 [facility] [id number] 2020-07-12 2020-07-12 Emergency X [facility] ERT [id number] Univers 03:16:00 03:16:00 MICHAEL pinto [facility] 2019-02-21 2019-02-21 Outpatient [facility] [id number] [place] 00:00:00 00:00:00 Health 2019-02-19 2019-02-19 Emergency [facility] TAMEKA [id number] 07:23:00 07:23:00 [facility] 2019-02-01 2019-02-01 Outpatient [facility] [id number] [place] 22:11:49 22:11:49 Health 2018-11-04 2018-11-[address] [facility] [id number] 20:38:48 05:13:00 Brown Nichols 350.1.13.10 [place] 4.2.7.2.686 [place] [id number] 2018-11-04 2018-11-05 Emergency Andrés [facility] 1.2.343.318 [id number] [facility] 20:38:48 05:13:00 Brown Nichols 350.1.13.10 i ty of [place] 4.2.7.2.686 [facility] [id number] [place] [id number] Branch 2018-10-18 2018-10-18 Emergency [facility] [id number] [place] 06:08:40 06:08:[address] [facility] 2017-04-02 2017-04-02 Outpatient [facility] [id number] [place] 00:00:00 00:00:[address] [facility] 2017-03-29 2017-03-29 Emergency [facility] [id number] [place] 00:00:48 00:00:[address] [facility] 2017-03-22 2017-03-22 Emergency [facility] [id number] 11:46:00 11:46:00 POND [facility] 2017-03-16 2017-03-20 [facility] [id number] 20:46:00 13:41:00 [facility] 2017-01-26 2017-01-26 [facility] [id number] [facility] 00:00:00 00:00:00 Results Test Description Test Time Test Comments Results Result Comments Source TROPONIN I 2021-05-08 04:00:37 Test Item Value Reference Range Interpretation Comme nts TROPONIN I (test code = 0.000 ng/mL See_Comment [Au tomated message] The 9099027590) system which ge nerated this result tra [...] biotin. Lab Interpretation Normal (test code = 24092-9) [facility] [id number] 00:46:10 Test Item Value Reference Range Interpretation Comments ESR (test code = See_Comment H [Automated message] [id number]) The system [employer] generated this result transmitted ref erence range: 0 - 10 m m/HR. The reference r johan was not used to interpret this result as normal/abnor mal. Lab Interpretation (test Abnormal code = 60306-2) [facility] HospitalGLYCOSYLATED HEMOGLOBIN (A1C)2021-05-07 20:23:40 Test Item Value Reference Range Interpretation Comments HGB A1C (test code = 5.3 % 4.0-5.7 4548-4) GEORGIE (test code = GEORGIE) Reference RangesNormal: <5.7%Prediabetes: 5.7 - 6.4%Diabetes: > 6.5% Lab Interpretation (test Normal code = 09566-3) [facility] METABOLIC PANEL (66904)2021-05-07 16:11:59 Test Item Value Reference Range Interpretation Comments NA (test code = 139 mmol/L 135-145 8455254851) K (test code = 3.9 mmol/L 3.5-5.0 2889198361) CL (test code = 101 mmol/L 98-108 9733853474) CO2 TOTAL (test code = 23 mmol/L 23-31 4845143801) AGAP (test code = 2-16 3142264915) BUN (test code = 13 mg/dL 7-23 0312895256) GLUCOSE (test code = 92 mg/dL 70-110 7657558038) CREATININE (test code = 0.40 mg/dL 0.60-1.25 L 0173671092) TOTAL BILI (test code = 1.6 mg/dL 0.1-1.1 H 5585909747) CALCIUM (test code = 9.6 mg/dL 8.6-10.6 7521709836) T PROTEIN (test code = 7.7 g/dL 6.3-8.2 3525289521) ALBUMIN (test code = 4.6 g/dL 3.5-5.0 6646056418) ALK PHOS (test code = 91 U/L 34-122 3602482861) ALTv (test code = 24 U/L 5-50 1742-6) AST(SGOT) (test code = 31 U/L 13-40 8466535853) eGFR (test code = mL/min/1.73m2 5800742355) GEORGIE (test code = GEORGIE) Association of [...] tests). Lab Interpretation Abnormal (test code = 15506-9) [facility] PARTIAL THRMPLAS [id number] 15:52:36 Test Item Value Reference Range Interpretation Comments APTT Patient (test See_Comment [Automat ed code = 3173-2) message] The system which generated this result transmitted reference range : 23 - 38 Seconds . The reference range was not used to interpr et this result as normal/abnormal . GEORGIE (test code = GEORGIE) The [facility] patient population mean normal value for aPTT is 30 seconds. Lab Interpretation Normal (test code = 27265-7) [facility] HospitalPROTHROMBIN TIME / [id number] 15:50:30 Test Item Value Reference Range Interpretation [...] tions. Lab Interpretation (test Normal code = 98672-8) [facility] WITH [id number] 15:42:54 Test Item Value Reference Range Interpretation Comments WBC (test code = See_Comment [Automated 9490-2) message] The sy stem which generated this result transmitted reference range : 4.20 - 10.70 10*3/?L. The reference range was not used to interpret this result as normal/abnormal . RBC (test code = See_Comment [Automated 999-8) message] The sy stem which generated this [...] RDW-SD (test code = 44.1 fL 38.5-51.6 08098-5) RDW-CV (test code = 13.3 % 12.1-15.4 788-0) PLT (test code = See_Comment [Automated 777-3) message] The sy stem which generated this result transmitted reference range : 150 - 328 10*3/ ?L. The reference r johan was not used to interpret this result as normal/abnormal . MPV (test code = 9.7 fL 9.8-13.0 L 17328-6) NRBC/100 WBC (test See_Comment [Automat ed code = 5678177524) message] The system which generated this result transmitted reference range : 0.0 - 10.0 /100 WBCs. The refer ence range was not u sed to interpret th is result as normal/abnormal . NRBC x10^3 (test code <0.01 See_Comment [Auto mated = 0429769499) message] The s ystem which generated this result transmitted reference range : 10*3/?L. The reference range was not used to interpret this result as normal/abnormal . GRAN MAT (NEUT) % 77.6 % (test code = 770-8) IMM GRAN % (test code 0.60 % = 3666868574) LYMPH % (test code = 13.7 % 736-9) MONO % (test code = 7.7 % 5905-5) EOS % (test code = 0.2 % 713-8) BASO % (test code = 0.2 % 706-2) GRAN MAT x10^3(ANC) 7.68 10*3/uL 1.99-6.95 H (test code = 7320602146) IMM GRAN x10^3 (test 0.06 10*3/uL 0.00-0.06 code = 4283288348) LYMPH x10^3 (test code 1.35 10*3/uL 1.09-3.23 = 731-0) MONO x10^3 (test code 0.76 10*3/uL 0.36-1.02 = 742-7) EOS x10^3 (test code = <0.03 0.06-0.53 L 711-2) BASO x10^3 (test code <0.03 0.01-0.09 = 704-7) Lab Interpretation Abnormal (test code = 68541-1) [facility] FlhdwqEISY-XsY-8 ORF1ab Resp Ql [id number] 19:38:49 Test Item Value Reference Range Interpretation Comments Hospitalized? (test Yes code = 48669-8) ICU? (test code = No 03093-6) Symptomatic as defined No by CDC? (test code = 82479-9) Employed in No Healthcare? (test code = 89680-1) Resident in a No congregate care setting (including nursing homes, residential care for people with intellectual and developmental disabilities, psychiatric treatment facilities, group homes, board and care homes, homeless assisted, foster care or other): (test code = 92904-8) SARS-CoV-2 ORF1ab Resp NOT DETECTED Not Detected INTER PRETATION: No Ql BETY+probe (test detectabl e levels code = 07307-4) of SARS-CoV- 2 Coronavirus (COVID-19) were present [...] n with SARS-CoV-2 Coronavirus (COVID-19). COMMENT: This [employer] SARS-CoV-2 molecular diagnostic assay utilizes Production Team Member Mediated Amplification (TMA) technology to rapidly detect the SARS-CoV-2 (COVID-19) virus from respiratory samples. In accordance with the FDA's guidance document "Policy for Diagnostic Tests for Coronavirus Disease- 2019 during the Public Health Emergency", this test was developed, and its performance characteristics were verified by the [facility] molecular diagnostics laboratory and is authorized for clinical diagnostic use. This laboratory is certified under the Clinical Laboratory Improvement Amendments (CLIA) as qualified to perform high complexity clinical laboratory testing.SARS-CoV-2 RNA Resp Ql [id number] 22:20:00 Test Item Value Reference Range Interpretation Comments Hospitalized? (test Yes code = 73718-3) ICU? (test code = No 62772-4) Symptomatic as defined No by CDC? (test code = 30460-0) Employed in Unknown Healthcare? (test code = 43128-5) Resident in a Unknown congregate care setting (including nursing homes, residential care for people with intellectual and developmental disabilities, psychiatric treatment facilities, group homes, board and care homes, homeless assisted, foster care or other): (test code = 22050-5) SARS-CoV-2 RNA Resp Ql NOT DETECTED Not Detected INTER PRETATION: No BETY+probe (test code = detec table levels 67978-8) of SARS-CoV-2 Coronavirus (COVID-19) were present in [...] its performance characteristics were verified by the [facility] molecular diagnostics laboratory and is authorized for clinical diagnostic use. This laboratory is certified under the Clinical Laboratory Improvement Amendments (CLIA) as qualified to perform high complexity clinical laboratory testing.SARS-CoV-2 ORF1ab Resp Ql [id number]+[id number] 14:59:31 Test Item Value Reference Range Interpretation Comments Hospitalized? (test Yes code = 93909-9) ICU? (test code = Yes 462699-5) Symptomatic as defined No by CDC? (test code = 25596-6) Employed in No Healthcare? (test code = 09609-8) Resident in a No congregate care setting (including nursing homes, residential care for people with intellectual and developmental disabilities, psychiatric treatment facilities, group homes, board and care homes, homeless assisted, foster care or other): (test code = 09755-3) SARS-CoV-2 ORF1ab Resp NOT DETECTED Not Detected INTER PRETATION: No Ql BETY+probe (test detectabl e levels code = 57399-8) of SARS-CoV- 2 Coronavirus (COVID-19) were present [...] n with SARS-CoV-2 Coronavirus (COVID-19). COMMENT: This [employer] SARS-CoV-2 molecular diagnostic assay utilizes Production Team Member Mediated Amplification (TMA) technology to rapidly detect the SARS-CoV-2 (COVID-19) virus from respiratory samples. In accordance with the FDA's guidance document "Policy for Diagnostic Tests for Coronavirus Disease- 2019 during the Public Health Emergency", this test was developed, and its performance characteristics were verified by the [facility] molecular diagnostics laboratory and is authorized for clinical diagnostic use. This laboratory is certified under the Clinical Laboratory Improvement Amendments (CLIA) as qualified to perform high complexity clinical laboratory testing.SARS-CoV-2 RNA Resp Ql BETY+[id number] 00:53:33 Test Item Value Reference Range Interpretation Comments Hospitalized? (test code Yes = 03529-4) ICU? (test code = No 55086-3) Symptomatic as defined No by CDC? (test code = 27145-3) Employed in Healthcare? No (test code = 00409-8) Resident in a congregate No care setting (including nursing homes, residential care for people with intellectual and developmental disabilities, psychiatric treatment facilities, group homes, board and care homes, homeless assisted, foster care or other): (test code = 27005-6) ? ([place] = [place] 96935-4) SARS-CoV-2 RNA Resp Ql DETECTED Not Detected A INTER PRETATION: This BETY+probe (test code = odalys nt's sample had 55536-5) detectable RNA present for the SARS-CoV-2 Coronavirus [...] its performance characteristics were verified by the [facility] molecular diagnostics laboratory and is authorized for [...] NONE A MUCU) DRUGS OF ABUSE SCREEN [id number] 13:19:00 Test Item Value Reference Interpretation Comments [...] this result as normal/abnormal . BASIC METABOLIC [id number] 09:24:00 Test Item Value Reference Range Interpretation [...] message] (test code = Index/DL The system [employer]) generated this result transmit isai reference range [...] this result as normal/abnormal . HEPATIC FUNCTION [id number] 09:24:00 Test Item Value Reference Range Interpretation [...] 59 Unit/L 45-117 N code = ALKP) [id number] 09:24:00 Test Item Value Reference Range Interpretation Comments ACETAMINOPHEN (test code = ACET) <2.0 mcG/ML 10.0-30.0 L [id number] 09:24:00 Test Item Value Reference Range Interpretation Comments ALCOHOL (test code = < 3 MG/DL 0-10 N MEDICAL ALCOHOL ALC) RESULTS. SITE W PREPPED WITH BE TADINE. <10 MG/DL ARE CONSIDERED NEGA TIVE. >400 MG/DL MAY BE FATAL.RESULTS F OR MEDICAL USE ONL Y. NOT TO BE USED FOR FORENSIC PURPOSES. [id number] 07:55:00 Test Item Value Reference Range Interpretation Comments SALICYLATE (test code < 1.7 MG/DL See_Comment L RESULT <2.8 IS = SMITH) CONSIDERED NEGA TIVE FOR SALICYLATE. [Automated mess age] The system [employer] generated this result transmitted ref erence range: 2.8-20.0 THER. The reference r johan was not used to interpret this result as normal/abnor mal. CBC W/AUTO [id number] 07:10:00 Test Item Value Reference Range Interpretation [...] 0.00 K/mm3 0.00-0.05 N NRBC#) ECG 12 [id number] 22:52:05 Test Item Value Reference Range Interpretation Comments Ventricular rate (test code = 253) Atrial rate (test code = 255) ID interval (test code = 266) QRSD interval [...] available-Electronica lly Signed By Doron Judge MD ([id number]) on 11/26/2020 5:52:04 PM [facility] [id number] 07:28:23 Test Item Value Reference Range Interpretation Comments Urine culture (test SEE COMMENT Bacteriu win[place] screen code = 0985424) negative. [facility] METABOLIC [id number] 09:20:00 Test Item Value Reference Range Interpretation [...] message] (test code = Index/DL The system [facility] h HEMINDEX) generated this result transmit isai [...] as normal/abnormal . Specimen comments: CCHEPATIC FUNCTION [id number] 09:20:00 Test Item Value Reference Range Interpretation [...] code = ALKP) Specimen comments: CCTHYROID STIMULATING [id number] 09:20:00 Test Item Value Reference Range Interpretation Comments THYROID STIMULATING HORMONE 0.619 mc IU/ML 0.340-4.820 N (test code = TSH) Specimen comments: [id number] 09:20:00 Test Item Value Reference Range Interpretation [...] change s in troponin levelscharacter istic of IA. Specimen comments: [id number] 09:20:00 Test Item Value Reference Range Interpretation Comments ACETAMINOPHEN (test code = ACET) <2.0 mcG/ML 10.0-30.0 L Specimen comments: [id number] 09:20:00 Test Item Value Reference Range Interpretation Comments ALCOHOL (test code = < 3 MG/DL 0-10 N MEDICAL ALCOHOL ALC) RESULTS. SITE W PREPPED WITH BE TADINE. <10 MG/DL ARE CONSIDERED NEGA TIVE. >400 MG/DL MAY BE FATAL.RESULTS F OR MEDICAL USE ONL Y. NOT TO BE USED FOR FORENSIC PURPOSES. Specimen comments: [id number] 08:59:00 Test Item Value Reference Range Interpretation Comments SALICYLATE (test code < 1.7 MG/DL See_Comment L RESULT <2.8 IS = SMITH) CONSIDERED NEGA TIVE FOR SALICYLATE. [Automated mess age] The system [employer] generated this result transmitted ref erence range: 2.8-20.0 THER. The reference r johan was not used to interpret this result as normal/abnor mal. Specimen comments: [facility] METABOLIC [id number] 08:55:00 Test Item Value Reference Range Interpretation [...] message] (test code = Index/DL The system [employer] HEMINDEX) generated this result transmit isai reference [...] this result as normal/abnormal . Specimen comments: [facility] [id number] 08:55:00 Test Item Value Reference Range Interpretation [...] code = ALKP) Specimen comments: CCTHYROID STIMULATING [id number] 08:55:00 Test Item Value Reference Range Interpretation Comments THYROID STIMULATING HORMONE 0.619 mc IU/ML 0.340-4.820 N (test code = TSH) Specimen comments: [id number] 08:55:00 Test Item Value Reference Range Interpretation [...] change s in troponin levelscharacter istic of IA. Specimen comments: [id number] 08:55:00 Test Item Value Reference Range Interpretation Comments ACETAMINOPHEN (test code = ACET) mcG/ML 10.0-30.0 Specimen comments: [id number] 08:55:00 Test Item Value Reference Range Interpretation Comments ALCOHOL (test code = < 3 MG/DL 0-10 N MEDICAL ALCOHOL ALC) RESULTS. SITE W PREPPED WITH BE TADINE. <10 MG/DL ARE CONSIDERED NEGA TIVE. >400 MG/DL MAY BE FATAL.RESULTS F OR MEDICAL USE ONL Y. NOT TO BE USED FOR FORENSIC PURPOSES. Specimen comments: CCCBC W/AUTO [id number] 08:10:00 Test Item Value Reference Range Interpretation [...] NRBC#) Specimen comments: CC- XR CHEST 1 [id number] 03:12:00 [facility] : 1985 Sex: M FAX: Mahin Smallwood MD [phone] [place]: St: REG FAX: Vilma Coker [phone] Patient Name: ARLINE RAO Darvin Unit No: [id number] EXAMS: CPT CODE: [id number] XR CHEST 1 V 70989 EXAM: - XR CHEST 1 V HISTORY: [...] Orig Print D/T: S: 10/16/2020 (314) TATUM Mcarthru NAME: [address] PHYS: Vilma Keyes, [place] [address] : 1985 AGE: 35 SEX: M LOC: B.ERS PHONE #: [phone] EXAM DATE: 10/16/2020 STATUS: REG ER FAX #: [phone] RAD NO: DC Dt: PAGE 1 Signed ReportCOVID 19 Asymptomatic IH [id number] 06:58:00 Test Item Value Reference Range Interpretation Comments COVID 19 Asymptomatic IH AG (test POSITIVE Negative A code = COVNONPUIAG) BASIC METABOLIC [id number] 04:22:00 Test Item Value Reference Range Interpretation [...] 8.3 mg/dL 8.4-10.2 L CA) LIVER FUNCTION [id number] 04:22:00 Test Item Value Reference Range Interpretation [...] U/L 38-126 N (test code = ALKP) [id number] 04:22:00 Test Item Value Reference Range Interpretation Comments ALCOHOL (test code = < 10 mg/dL <10 ALC) ~~~~~~~~~~~~~~~ ~~~~~~~ ~~~~~~~~~~~~~~~ ~~~~~~~ ~~~~~~ RESU LTS ARE TO BE USED FOR MEDICAL PURPOSES ONLY.F OR LEGAL PURPOSES THE SPECIMEN MUST B E COLLECTED BY A CHAINOF CUSTODY. LEGAL TESTING IS NOT PERFORME D BY THIS FACILITY. ~~~~~~~~~~~~~~~ ~~~~~~~ ~~~~~~~~~~~~~~~ ~~~~~~~ ~~~~~~ CBC W/AUTO [id number] 04:08:00 Test Item Value Reference Range Interpretation [...] 0.02 x10 3/uL 0.0-0.1 N Coronavirus 2019 [facility] [id number] 17:19:00 Test Item Value Reference Range Interpretation Comments Coronavirus 2019 [facility] Bedside (test Negative Neg code = [id number]) [id number] 13:14:00 Test Item Value Reference Range Interpretation Comments SALICYLATE (test code < 1.7 MG/DL See_Comment L RESULT <2.8 IS = SMITH) CONSIDERED NEGA TIVE FOR SALICYLATE. [Automated mess age] The system [employer] generated this result transmitted ref erence range: 2.8-20.0 THER. The reference r johan was not used to interpret this result as normal/abnor mal. BASIC METABOLIC [id number] 13:03:00 Test Item Value Reference Range Interpretation [...] message] (test code = Index/DL The system [employer]) generated this result transmit isai reference range [...] this result as normal/abnormal . HEPATIC FUNCTION [id number] 13:03:00 Test Item Value Reference Range Interpretation [...] 87 Unit/L 45-117 N code = ALKP) [id number] 13:03:00 Test Item Value Reference Range Interpretation Comments ACETAMINOPHEN (test code = ACET) <2.0 mcG/ML 10.0-30.0 L [id number] 13:03:00 Test Item Value Reference Range Interpretation Comments ALCOHOL (test code = < 3 MG/DL 0-10 N MEDICAL ALCOHOL ALC) RESULTS. SITE W PREPPED WITH BE TADINE. <10 MG/DL ARE CONSIDERED NEGA TIVE. >400 MG/DL MAY BE FATAL.RESULTS F OR MEDICAL USE ONL Y. NOT TO BE USED FOR FORENSIC PURPOSES. DRUGS OF ABUSE SCREEN [id number] 12:38:00 Test Item Value Reference Interpretation Comments [...] this result as normal/abnormal . BASIC METABOLIC [id number] 12:37:00 Test Item Value Reference Range Interpretation [...] this result as normal/abnormal . HEPATIC FUNCTION [id number] 12:37:00 Test Item Value Reference Range Interpretation [...] 87 Unit/L 45-117 N code = ALKP) [id number] 12:37:00 Test Item Value Reference Range Interpretation Comments ACETAMINOPHEN (test code = ACET) mcG/ML 10.0-30.0 [id number] 12:37:00 Test Item Value Reference Range Interpretation Comments ALCOHOL (test code = < 3 MG/DL 0-10 N MEDICAL ALCOHOL ALC) RESULTS. SITE W PREPPED WITH BE TADINE. <10 MG/DL ARE CONSIDERED NEGA TIVE. >400 MG/DL MAY BE FATAL.RESULTS F OR MEDICAL USE ONL Y. NOT TO BE USED FOR FORENSIC PURPOSES. CBC W/AUTO [id number] 12:02:00 Test Item Value Reference Range Interpretation [...] code = 0.00 K/mm3 0.00-0.05 N NRBC#) [id number] 23:33:00 Test Item Value Reference Range Interpretation [...] change s in troponin levelscharacter istic of IA. B-TYPE NATRIURETIC [id number] 19:24:00 Test Item Value Reference Range Interpretation Comments B-TYPE NATRIURETIC PEPTIDE < 30.00 PG/ML 0.00-100.00 N (test code = BNP) URINALYSIS [id number] 15:43:00 Test Item Value Reference Range Interpretation [...] a.STF.VT15 AT 08/11/20 1302DRUGS OF ABUSE SCREEN [id number] 15:43:00 Test Item Value Reference Interpretation Comments [...] LEUU) system which generated this result transmit iasi reference range : (NEG) 0. The reference [...] a.ST.VT15 AT 08/11/20 1302DRUGS OF ABUSE SCREEN [id number] 15:43:00 Test Item Value Reference Interpretation Comments [...] 08/11/20 1302- XR HAND 3 + V 2020-08-11 13:43:00 [facility] : 1985 Sex: M FAX: Lan Agee MD [phone] [place]: Art St: PRE Patient Name: ARLINE RAO Unit No: [id number] EXAMS: CPT CODE: [id number] XR HAND 3 + V LT 98961 EXAM: - XR HAND 3 + V [...] CC: Lan Cooper MD Dictated Date/Time: 08/11/2020 (4333)Technologist: Damaris Martinez Transcribed Date/Time: 08/11/2020 (7113) By: [email or web address] Orig Print D/T: S: 08/11/2020 (6812) TATUM Mcarthur NAME: EDMUND RAO [address] PHYS: Lan Dykes [place], [place] [address] : 1985 AGE: 34 SEX: M LOC: B.ERS PHONE #: [phone] EXAM DATE: 08/11/2020 STATUS: PRE ER FAX #: [phone] RAD NO: DC Dt: PAGE 1 Signed Report- XR CHEST 1 [id number] 13:41:00 [facility] : 1985 Sex: M FAX: Lan Agee MD [phone] [place]: St: PRE Patient Name: ARLINE RAO Unit No: [id number] EXAMS: CPT CODE: [id number] XR CHEST 1 V 44719 EXAM: - XR CHEST 1 V Location [...] By: [email or web address] Orig Print D/T: S: 08/11/2020 (9994) [facility] [place] NAME: ARLINE RAO [address] [place] [address] PHYS: Lan Munroe MD, [place] [address] : 1985 AGE: 34 SEX: M LOC: B.ERS PHONE #: [phone] EXAM DATE: 08/11/2020 STATUS: PRE ER FAX #: [phone] RAD NO: DC Dt: PAGE 1 Signed ReportCOMPREHENSIVE METABOLIC [id number] 12:50:00 Test Item Value Reference Range Interpretation [...] (test code = MG Index/DL The system [employer]EM[employer]) generated this result transmit isai reference [...] to interpret this result as normal/abnormal . [id number] 12:50:00 Test Item Value Reference Range Interpretation [...] change s in troponin levelscharacter istic of IA. [id number] 12:50:00 Test Item Value Reference Range Interpretation Comments ACETAMINOPHEN (test code = ACET) < 2.0 mcG/ML 10.0-30.0 L [id number] 12:50:00 Test Item Value Reference Range Interpretation Comments ALCOHOL (test code = <3 MG/DL 0-10 N MEDICAL ALCOHOL RESULTS. ALC) SITE WAS PREPPE D WITH BETADINE. <10 MG/DL ARE CONSI DERED NEGATIVE. >400 MG/DL MAY BE FATAL.RESULTS F OR MEDICAL USE ONL Y. NOT TO BE USED FOR FOR ENSIC PURPOSES. [id number] 12:39:00 Test Item Value Reference Range Interpretation Comments SALICYLATE (test code 3.1 MG/DL See_Comment N [Auto mated message] = SMITH) The system [employer] generated this result transmitted ref erence range: 2.8-20.0 THER. The reference r johan was not used to interpret this result as normal/abnor mal. COMPREHENSIVE METABOLIC [id number] 12:39:00 Test Item Value Reference Range Interpretation [...] (test code = MG Index/DL The system [employer]) generated this result transmit isai reference range [...] to interpret this result as normal/abnormal . [id number] 12:39:00 Test Item Value Reference Range Interpretation [...] change s in troponin levelscharacter istic of IA. [id number] 12:39:00 Test Item Value Reference Range Interpretation Comments ACETAMINOPHEN (test code = ACET) < 2.0 mcG/ML 10.0-30.0 L [id number] 12:39:00 Test Item Value Reference Range Interpretation Comments ALCOHOL (test code = ALC) MG/DL 0-10 COMPREHENSIVE METABOLIC [id number] 12:34:00 Test Item Value Reference Range Interpretation [...] (test code = MG Index/DL The system [employer]) generated this result transmit isai reference [...] to interpret this result as normal/abnormal . [id number] 12:34:00 Test Item Value Reference Range Interpretation Comments TROPONIN-I (test code = TROPI) NG/ML 0.000-0.045 [id number] 12:34:00 Test Item Value Reference Range Interpretation Comments ACETAMINOPHEN (test code = ACET) < 2.0 mcG/ML 10.0-30.0 L [id number] 12:34:00 Test Item Value Reference Range Interpretation Comments ALCOHOL (test code = ALC) MG/DL 0-10 CBC W/AUTO [id number] 12:23:00 Test Item Value Reference Range Interpretation [...] 0.00 K/mm3 0.00-0.05 N NRBC#) CBC WITH [id number] 09:49:19 Test Item Value Reference Range Interpretation Comments WBC (test code = See_Comment [Automated 5273-2) message] The sy stem which generated this [...] RDW-SD (test code = 42.9 fL 38.5-51.6 13469-0) RDW-CV (test code = 12.4 % 12.1-15.4 788-0) PLT (test code = See_Comment [Automated 777-3) message] The sy stem which generated this result transmitted reference range : 150 - 328 10*3/ ?L. The reference r johan was not used to interpret this result as normal/abnormal . MPV (test code = 9.8 fL 9.8-13.0 43866-0) NRBC/100 WBC (test See_Comment [Automat ed code = 0478697687) message] The system which generated this result transmitted reference range : 0.0 - 10.0 /100 WBCs. The refer ence range was not u sed to interpret th is result as normal/abnormal . NRBC x10^3 (test code <0.01 See_Comment [Auto mated = 7665783514) message] The s ystem which generated this result transmitted reference range : 10*3/?L. The reference range was not used to interpret this result as normal/abnormal . GRAN MAT (NEUT) % 41.9 % (test code = 770-8) IMM GRAN % (test code 0.20 % = 4562659174) LYMPH % (test code = 40.9 % 736-9) MONO % (test code = 13.7 % 5905-5) EOS % (test code = 3.1 % 713-8) BASO % (test code = 0.2 % 706-2) GRAN MAT x10^3(ANC) 1.89 10*3/uL 1.99-6.95 L (test code = 5139534236) IMM GRAN x10^3 (test <0.03 0.00-0.06 code = 2769741458) LYMPH x10^3 (test code 1.85 10*3/uL 1.09-3.23 = 731-0) MONO x10^3 (test code 0.62 10*3/uL 0.36-1.02 = 742-7) EOS x10^3 (test code = 0.14 10*3/uL 0.06-0.53 711-2) BASO x10^3 (test code <0.03 0.01-0.09 = 704-7) Lab Interpretation Abnormal (test code = 56414-9) [facility] [id number] 09:39:48 Test Item Value Reference Range Interpretation Comments TROPONIN I (test 0.002 ng/mL See_Comment [Automated code = 4134813972) message] The system which generated this result [...] ? Lab Interpretation Normal (test code = 25545-8) [facility]. METABOLIC PANEL (28130)2020-07-12 09:22:19 Test Item Value Reference Range Interpretation Comments NA (test code = 135 mmol/L 135-145 6803094695) K (test code = 3.6 mmol/L 3.5-5.0 7672133074) CL (test code = 103 mmol/L 98-108 1111481049) CO2 TOTAL (test code = 26 mmol/L 23-31 7544120146) AGAP (test code = 2-16 1751479685) BUN (test code = 17 mg/dL 7-23 8177998058) GLUCOSE (test code = 98 mg/dL 70-110 6171489821) CREATININE (test code = 0.82 mg/dL 0.60-1.25 6167224986) TOTAL BILI (test code = 1.3 mg/dL 0.1-1.1 H 7739036223) CALCIUM (test code = 8.4 mg/dL 8.6-10.6 L 4347612664) T PROTEIN (test code = 6.6 g/dL 6.3-8.2 0268324428) ALBUMIN (test code = 3.7 g/dL 3.5-5.0 6419179770) ALK PHOS (test code = 81 U/L 34-122 7387446614) ALTv (test code = 51 U/L 5-50 H 1742-6) AST(SGOT) (test code = 68 U/L 13-40 H 3087265039) eGFR (test code = mL/min/1.73m2 9515161558) GEORGIE (test code = GEORGIE) Association of [...] tests). Lab Interpretation Abnormal (test code = 25442-4) [facility], [id number] 09:22:14 Test Item Value Reference Range Interpretation Comments LIPASE (test code = 6739295152) 106 U/L 0-220 Lab Interpretation (test code = Normal 51642-3) [facility]TT2021-05-27 09:13:54 Test Item Value Reference Range Interpretation Comments APTT Patient (test See_Comment [Automat ed code = 3173-2) message] The system which generated this result transmitted reference range : 23 - 38 Seconds . The reference range was not used to interpr et this result as normal/abnormal . GEORGIE (test code = GEORGIE) The [facility] patient population mean normal value for aPTT is 30 seconds. Lab Interpretation Normal (test code = 88737-6) [facility] HospitalPROTHROMBIN TIME / [id number] 09:11:53 Test Item Value Reference Range Interpretation [...] tions. Lab Interpretation (test Normal code = 92743-9) [facility] nCoV [id number] 08:52:00 Test Item Value Reference Range Interpretation Comments Coronavirus 2019 Negative NEGATIVE This test h as been nCoV Bedside (test authorize d by FDA under code = [id number]) an EUA for use byauthorized laboratories; This [...] and/o r diagnosis of CO VID-19 under Yconlbs47 4(b)(1) of the Act, 21 U.S .C. 360bbb-3(b)(1), unless theauthorizatio n is terminated or r evoked sooner. DRUGS OF ABUSE [id number] 03:16:00 Test Item Value Reference Range Interpretation [...] poses (e.g employment testing). DRUGS OF ABUSE [id number] 02:47:00 Test Item Value Reference Range Interpretation [...] (test code = PHENCU) DRUGS OF ABUSE [id number] 02:38:00 Test Item Value Reference Range Interpretation [...] NEGATIVE (test code = PHENCU) BASIC METABOLIC [id number] 02:34:00 Test Item Value Reference Range Interpretation [...] 9.7 mg/dL 8.4-10.2 N CA) LIVER FUNCTION [id number] 02:34:00 Test Item Value Reference Range Interpretation [...] U/L 38-126 N (test code = ALKP) [id number] 02:34:00 Test Item Value Reference Range Interpretation Comments ACETAMINOPHEN (test code = ACET) <10 ug/mL 10-30 L [id number] 02:34:00 Test Item Value Reference Range Interpretation Comments SALICYLATE (test code < 1.0 mg/dL Negati ve <2.0 = SMITH) mg/dLTherapeuti c Range <20 mg/dL [id number] 02:34:00 Test Item Value Reference Range Interpretation Comments ALCOHOL (test code = < 10 mg/dL <10 ALC) ~~~~~~~~~~~~~~~ ~~~~~~~ ~~~~~~~~~~~~~~~ ~~~~~~~ ~~~~~~ RESU LTS ARE TO BE USED FOR MEDICAL PURPOSES ONLY.F OR LEGAL PURPOSES THE SPECIMEN MUST B E COLLECTED BY A CHAINOF CUSTODY. LEGAL TESTING IS NOT PERFORME D BY THIS FACILITY. ~~~~~~~~~~~~~~~ ~~~~~~~ ~~~~~~~~~~~~~~~ ~~~~~~~ ~~~~~~ URINALYSIS [id number] 02:27:00 Test Item Value Reference Range Interpretation [...] this result as normal/abnormal . CBC W/AUTO [id number] 02:18:00 Test Item Value Reference Range Interpretation [...] x10 3/uL 0.0-0.1 N DRUGS OF ABUSE [id number] 06:47:00 Test Item Value Reference Range Interpretation [...] non-medical pur poses (e.g employment testing). URINALYSIS [id number] 06:29:00 Test Item Value Reference Range Interpretation [...] this result as normal/abnormal . BASIC METABOLIC [id number] 03:28:00 Test Item Value Reference Range Interpretation [...] 9.0 mg/dL 8.4-10.2 N CA) LIVER FUNCTION [id number] 03:28:00 Test Item Value Reference Range Interpretation [...] U/L 38-126 N (test code = ALKP) [id number] 03:28:00 Test Item Value Reference Range Interpretation Comments ACETAMINOPHEN (test code = ACET) <10 ug/mL 10-30 L [id number] 03:28:00 Test Item Value Reference Range Interpretation Comments SALICYLATE (test code < 1.0 mg/dL Negati ve <2.0 = SMITH) mg/dLTherapeuti c Range <20 mg/dL [id number] 03:28:00 Test Item Value Reference Range Interpretation Comments ALCOHOL (test code = < 10 mg/dL <10 ALC) ~~~~~~~~~~~~~~~ ~~~~~~~ ~~~~~~~~~~~~~~~ ~~~~~~~ ~~~~~~ RESU LTS ARE TO BE USED FOR MEDICAL PURPOSES ONLY.F OR LEGAL PURPOSES THE SPECIMEN MUST B E COLLECTED BY A CHAINOF CUSTODY. LEGAL TESTING IS NOT PERFORME D BY THIS FACILITY. ~~~~~~~~~~~~~~~ ~~~~~~~ ~~~~~~~~~~~~~~~ ~~~~~~~ ~~~~~~ CBC W/AUTO [id number] 00:30:00 Test Item Value Reference Range Interpretation [...] 3/uL 0.0-0.1 N - CT C-SPINE W/O [id number] 23:37:00 Patient Name: ARLINE RAO Unit No: [id number] EXAMS: CPT CODE: [id number] CT C-SPINE W/O CONT 02787 Location: CT cervical spine, 08/29/19 TECHNIQUE: CT [...] 16.41 DLP: 366.20 Trnscrpt: 08/29/2019 (2337) HeatherDAS6 [facility] [place] NAME: ARLINE RAO [address] [place], [place] [address] PHYS: Lan Munroe MD, [place] [address] : 1985 AGE: 33 SEX: M LOC: B.ERS PHONE #: [phone] EXAM DATE: 08/29/2019 STATUS: REG ER FAX #: [phone] RAD #: D/C DT PAGE 1 Signed Report Patient Name: ARLINE RAO Unit No: [id number] EXAMS: CPT CODE: [id number] CT C-SPINE W/O CONT 36526 <Continued> Orig Print D/T: S: 08/29/2019 (2340) [facility] [place] NAME: ARLINE RAO [address] [place] [address] Bl PHYS: Lan Munroe MD, [place] [address] : 1985 AGE: 33 SEX: M LOC: B.ERS PHONE #: [phone] EXAM DATE: 08/29/2019 STATUS: REG ER FAX #: [phone] RAD #: D/C DT PAGE 2 Signed Report- CT HEAD/BRAIN W/O [id number] 23:33:00 Patient Name: ARLINE RAO Unit No: [id number] EXAMS: CPT CODE: [id number] CT HEAD/BRAIN W/O CONT 97534 Location: CT head, 08/29/19 COMPARISON EXAMS: None [...] (2332) HeatherDAS6 TATUM Mcarthur NAME: ARLINE RAO [address] [place] [address] PHYS: Lan [place] [address] : 1985 AGE: 33 SEX: M LOC: ErnestoBlayneERS PHONE #:[phone] EXAM DATE: 08/29/2019 STATUS: REG ER FAX #: [phone] RAD #: D/C DT PAGE 1 Signed Report Patient Name: ARLINE RAO Unit No: [id number] EXAMS: CPT CODE: [id number] CT HEAD/BRAIN W/O CONT 91495 <Continued> Orig Print D/T: S: 08/29/2019 (2335) TATUM Mcarthur NAME: ARLINE RAO [address] [place] [address] PHYS: Lan Munroe MD [place] [address] : 1985 AGE: 33 SEX: M LOC: [facility] PHONE #: [phone] EXAM DATE:08/29/2019 STATUS: REG ER FAX #: [phone] RAD #: D/C DT PAGE 2 Signed ReportCOMPREHENSIVE METABOLIC [id number] 23:28:00 Test Item Value Reference Range Interpretation [...] code = LIPINDEX) MG Index/DL CBC W/AUTO [id number] 23:07:00 Test Item Value Reference Range Interpretation [...] 0.00 K/mm3 0.00-0.05 N NRBC#) BASIC METABOLIC [id number] 14:23:00 Test Item Value Reference Range Interpretation [...] NORMAL code = LIPINDEX) Index/DL HEPATIC FUNCTION [id number] 14:23:00 Test Item Value Reference Range Interpretation [...] 68 Unit/L 45-117 N code = ALKP) [id number] 14:23:00 Test Item Value Reference Range Interpretation Comments ALCOHOL (test code = 3 MG/DL 0-10 N MEDICAL ALCOHOL RESULTS. ALC) SITE WAS PREPPE D WITH BETADINE. <10 MG/DL ARE CONSI DERED NEGATIVE. >400 MG/DL MAY BE FATAL.RESULTS F OR MEDICAL USE ONL Y. NOT TO BE USED FOR FOR ENSIC PURPOSES. BASIC METABOLIC [id number] 14:17:00 Test Item Value Reference Range Interpretation [...] 1 NORMAL = LIPINDEX) Index/DL HEPATIC FUNCTION [id number] 14:17:00 Test Item Value Reference Range Interpretation [...] TOTAL (test code Unit/L 45-117 = ALKP) [id number] 14:17:00 Test Item Value Reference Range Interpretation Comments ALCOHOL (test code = ALC) MG/DL 0-10 CBC W/O [id number] 14:04:00 Test Item Value Reference Range Interpretation [...] = 9.4 fL 7.6-10.4 N MPV) RPR [id number] 14:01:19 Test Item Value Reference Range Interpretation [...] = 12-17-2019 N Expiration Dt) Thyroid Stimulating [id number] 09:09:16 Test Item Value Reference Range Interpretation Comments TSH (test code = TSH) 0.418 mIU/mL 0.270-4.200 Lipid [id number] 08:59:32 Test Item Value Reference Range Interpretation Comments Cholesterol Total 131 mg/dL 0-200 RISK OF HE ART (test code = DISEASEPublishe d by Cholesterol Total) [place] [employer] Giovanna lyte Optimal Borderl ine [...] being used code = LDL/HDL Ratio) in [facility] calculation is LDL/HDL Ratio=L DL Calc/HDL Chol Thyroid Stimulating [id number] 10:03:42 Test Item Value Reference Range Interpretation Comments TSH (test code = TSH) 1.560 mIU/mL 0.270-4.200 Lipid [id number] 09:52:10 Test Item Value Reference Range Interpretation Comments Cholesterol Total 210 mg/dL 0-200 H RISK OF HE ART (test code = DISEASEPublishe d by Cholesterol Total) [place] [employer] Giovanna lyte Optimal Borderl ine [...] being used code = LDL/HDL Ratio) in [facility] s calculation is LDL/HDL Ratio=L DL Calc/HDL Chol RPR [id number] 11:37:43 Test Item Value Reference Range Interpretation Comments RPR Qual (test code = RPR Qual) Non-Reactive Non-Reactive Reactive Control (test code = Reactive Reactive Control) Weak Reactive Control (test Weak Reactive code = Weak Reactive Control) Non-Reactive Control (test code Non-Reactive = Non-Reactive Control) Lot # (test code = Lot #) [id number] N Expiration Dt (test code = 12-17-19 N Expiration Dt) Urinalysis [id number] 23:07:47 Test Item Value Reference Range Interpretation Comments UA WBC (test code = UA WBC) None Seen 0-5 UA RBC (test code = UA RBC) None Seen 0-5 UA Bacteria (test code = UA None Seen Bacteria) UA Squam Epithelial (test code = UA 0-5 Squam Epithelial) Comprehensive Metabolic [id number] 22:29:50 Test Item Value Reference Range Interpretation [...] A/G 1.7 ratio N Ratio) Comprehensive Metabolic [id number] 22:29:50 Test Item Value Reference Range Interpretation [...] not provided, and t he patient is aliyah neri, multiply by 0.7 42. Results for pat [...] the National Kidney Foundation, http://nkdep.ni h.gov Alcohol [id number] 22:29:50 Test Item Value Reference Range Interpretation Comments Ethanol Level (test 0.06 g/dL 0.00-0.01 H Intoxica isai 0.080 g/dL code = Ethanol or more Level) Ethanol Inst (test 58 N code = Ethanol Inst) Comprehensive Metabolic [id number] 22:29:50 Test Item Value Reference Range Interpretation [...] ag e have not been validated by [facility] MDRD study and should be interpreted wit [...] ag e have not been validated by [facility] MDRD study and should be interpreted wit h caution. eGFR R esult Interpretation: eGFR > or = 60 is in the Normal RangeeGF R < 60 may mean kid tran diseaseeGFR < 1 5 may mean kidney failure Rang es recommended by the National Kidney Foundation, http://nkdep.ni h.gov Complete Blood Count with [id number] 22:14:44 Test Item Value Reference Range Interpretation [...] code = IPF) 0 % N Automated [id number] 22:14:44 Test Item Value Reference Range Interpretation Comments Neutro Auto (test code = Neutro 72.2 % 36.0-70.0 H Auto) Lymph Auto (test code = Lymph Auto) 19.6 % 12.0-44.0 [place] Auto (test code = [place] Auto) 6.9 % 0.0-11.0 Eos, Auto (test code = Eos, Auto) 0.0 % 0.0-7.0 Basophil Auto (test code = Basophil 0.4 % 0.0-2.0 Auto) Neutro Absolute (test code = Neutro 6.1 x10 1.6-7.4 Absolute) Lymph Absolute (test code = Lymph 1.67 x10 .50-4.60 Absolute) [place] Absolute (test code = [place] .59 x10 .00-1.20 Absolute) Eos Absolute (test code = Eos 0.00 x10 0.00-0.74 Absolute) Baso Absolute (test code = Baso 0.03 x10 0.00-0.21 Absolute) IG [id number] 22:14:44 Test Item Value Reference Range Interpretation Comments IG (test code = IG) 0.9 % 0.0-5.0 IG Abs (test code = IG Abs) 0 x10 N Urine Drug [id number] 22:14:38 Test Item Value Reference Range Interpretation [...] if desired . Urinalysis with Microscopic if [id number] 21:53:48 Test Item Value Reference Range Interpretation [...] Ind?) rule GL_SJM_UA_MICRO _IN D Urine Drug [id number] 09:31:28 Test Item Value Reference Range Interpretation [...] y. Clinical consideration a nd professional ju dgkelvin should be appli ed to any drug of abu se test result, particularly wh en preliminary pos itive results are obt ained. Please order a separate confir matory test if desired . Comprehensive Metabolic [id number] 09:17:22 Test Item Value Reference Range Interpretation [...] A/G 2.1 ratio N Ratio) Comprehensive Metabolic [id number] 09:17:22 Test Item Value Reference Range Interpretation [...] National Kidney Foundation, http://nkdep.ni h.gov Comprehensive Metabolic [id number] 09:17:22 Test Item Value Reference Range Interpretation [...] ag e have not been validated by [facility] MDRD study and should be interpreted wit [...] ag e have not been validated by [facility] MDRD study and should be interpreted wit h caution. eGFR R esult Interpretation: eGFR > or = 60 is in the Normal RangeeGF R < 60 may mean kid tran diseaseeGFR < 1 5 may mean kidney failure Rang es recommended by the National Kidney Foundation, http://nkdep.ni h.gov IG [id number] 09:08:10 Test Item Value Reference Range Interpretation Comments IG (test code = IG) 0.4 % 0.0-5.0 IG Abs (test code = IG Abs) 0 x10 N Complete Blood Count with [id number] 09:08:09 Test Item Value Reference Range Interpretation [...] code = IPF) 0 % N Automated [id number] 09:08:09 Test Item Value Reference Range Interpretation Comments Neutro Auto (test code = Neutro 73.6 % 36.0-70.0 H Auto) Lymph Auto (test code = Lymph Auto) 17.3 % 12.0-44.0 [place] Auto (test code = [place] Auto) 8.3 % 0.0-11.0 Eos, Auto (test code = Eos, Auto) 0.1 % 0.0-7.0 Basophil Auto (test code = Basophil 0.3 % 0.0-2.0 Auto) Neutro Absolute (test code = Neutro 5.1 x10 1.6-7.4 Absolute) Lymph Absolute (test code = Lymph 1.19 x10 .50-4.60 Absolute) [place] Absolute (test code = [place] .57 x10 .00-1.20 Absolute) Eos Absolute (test code = Eos 0.01 x10 0.00-0.74 Absolute) Baso Absolute (test code = Baso 0.02 x10 0.00-0.21 Absolute) ADC / LCC - DRUG SCREEN [id number] 02:56:00 Test Item Value Reference Range Interpretation Comments BENZO U (test code = Negative Negative 6884932348) EARL U (test code = Negative Negative 2592506026) AMPHET (test code = Presumptive Positive Negative A 5432041730) THC (test code = Negative Negative 4536462606) METHADONE (test code = Negative Negative 3379714879) Meth U (test code = Presumptive Positive Negative A 4648800230) OPIATES (test code = Negative Negative 6555155467) Cocaine Metabolite (test Negative Negative code = 1146441404) PROPOXY (test code = Negative Negative 9032077778) Tric U (test code = Negative Negative 5388329357) PCP (test code = Negative Negative 2590246992) OXYCOD (test code = Negative Negative 4306782050) GEORGIE (test code = GEORGIE) Urine Drug [...] testing). Lab Interpretation (test Abnormal code = 43105-4) [facility] Test Item Value Reference Range Interpretation Comments ACETAMINOP (test code = <10.0 10-30 L 0808714883) GEORGIE (test code = EGORGIE) Toxic: Greater than 200 ug/mL @ 4 hour post ingestion or greater than 50 ug/mL @ 12 hour post ingestion Lab Interpretation (test Abnormal code = 42625-7) [facility] 02:40:00 Test Item Value Reference Range Interpretation Comments SALICYLATE (test code <10 mg/L = 3268380374) GEORGIE (test code = GEORGIE) Therapeutic Range:? Analgesic and Antipyretic Use? 20-100 mg/L? Anti-Inflammatory Use? 100-250 mg/LToxic Range:? Greater than 300 mg/L 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 (NA, K, CL, CO2, Glucose, BUN, Creatinine, CA)2018-11-05 02:35:00 Test Item Value Reference Range Interpretation Comments NA (test code = 142 mmol/L 135-145 4629725762) K (test code = 3.5 mmol/L 3.5-5 9401268907) CL (test code = 107 mmol/L 98-108 7601873616) CO2 TOTAL (test code = 25 mmol/L 23-31 8962220768) AGAP (test code = 2-16 5331218763) BUN (test code = 12 mg/dL 7-23 4526695832) GLUCOSE (test code = 90 mg/dL 70-110 1455213130) CREATININE (test code 0.77 mg/dL 0.6-1.25 = 1102974712) CALCIUM (test code = 9.3 mg/dL 8.6-10.6 0196427918) eGFR Calculation mL/min/1.73m2 (Non-) (test code = 2439817839) eGFR Calculation mL/min/1.73m2 () (test code = 7389387415) GEORGIE (test code = GEORGIE) Association of [...] or urine or abnormalities in imaging tests). [facility] (ALB, T.PRO, BILI T, BU/BC, ALT, AST, ALK PHOS)2018-11-05 02:35:00 Test Item Value Reference Range Interpretation Comments TOTAL BILI (test code = 4488578025) 1.0 mg/dL 0.1-1.1 BILI UNCON (test code = 0511899416) 0.8 mg/dL 0.1-1.1 BILI CONJ (test code = 4116089438) 0.0 mg/dL 0-0.3 T PROTEIN (test code = 4826964972) 7.0 g/dL 6.3-8.2 ALBUMIN (test code = 6854579738) 4.4 g/dL 3.5-5 ALK PHOS (test code = 5217930614) 71 U/L 34-122 ALT(SGPT) (test code = 7163524538) 39 U/L 9-51 AST(SGOT) (test code = 1787142360) 40 U/L 13-40 Lab Interpretation (test code = Normal 89354-1) [facility] WITH [id number] 02:10:00 Test Item Value Reference Range Interpretation [...] RDW-SD (test code = 46.3 fL 38.5-51.6 32792-9) RDW-CV (test code = 13.1 % 12.1-15.4 788-0) PLT (test code = See_Comment [Automated 777-3) message] The sy stem which generated this result transmitted reference range : 150 - 328 10*3/ ?L. The reference r johan was not used to interpret this result as normal/abnormal . MPV (test code = 9.9 fL 9.8-13 62750-7) NRBC/100 WBC (test See_Comment [Automat ed code = 6711227194) message] The system which generated this result transmitted reference range : 0.0 - 10.0 /100 WBCs. The refer ence range was not u sed to interpret th is result as normal/abnormal . NRBC x10^3 (test code <0.01 See_Comment [Auto mated = 9644676359) message] The s ystem which generated this result transmitted reference range : 10*3/?L. The reference range was not used to interpret this result as normal/abnormal . GRAN MAT (NEUT) % 50.8 % (test code = 770-8) IMM GRAN % (test code 0.60 % = 9045370764) LYMPH % (test code = 33.8 % 736-9) MONO % (test code = 14.4 % 5905-5) EOS % (test code = 0.0 % 713-8) BASO % (test code = 0.4 % 706-2) GRAN MAT x10^3(ANC) 2.62 10*3/uL 1.99-6.95 (test code = 5722739513) IMM GRAN x10^3 (test 0.03 10*3/uL 0-0.06 code = 6856807518) LYMPH x10^3 (test code 1.74 10*3/uL 1.09-3.23 = 731-0) MONO x10^3 (test code 0.74 10*3/uL 0.36-1.02 = 742-7) EOS x10^3 (test code = <0.03 0.06-0.53 L 711-2) BASO x10^3 (test code <0.03 0.01-0.09 = 704-7) Lab Interpretation Abnormal (test code = 43990-5) [facility] [id number] 13:14:00 Test Item Value Reference Range Interpretation [...] by the National Kidney Foundation,http ://nkd ep.nih.gov [id number] 13:09:00 Test Item Value Reference Range Interpretation [...] g/dL 0.00-0.01 N code = ETOHU) Urinalysis [id number] 12:59:00 Test Item Value Reference Range Interpretation Comments Color (test code = Yellow Yellow,Straw,Pl N COLOR) yellow Clarity (test code = Clear Clear N CLAR) Specific [place] (test 1.027 1.001-1.035 N code = SPGR) [...] code = Few /HPF BACT) CBC with Aspeocuwdfvk9563-41-40 12:42:00 Test Item Value Reference Range Interpretation [...] code = ALYMPH) 2.3 K/cumm 0.5-4.6 N [place] Abs (test code = AMONO) 0.6 K/cumm 0.0-1.2 N Eos Abs (test code = AEOS) 0.09 K/cumm 0.00-0.74 N Baso Abs (test code = ABASO) 0.0 K/cumm 0.00-0.21 N Hepatic Function [id number] 18:55:00 Test Item Value Reference Range Interpretation [...] = ALT) 47 U/L 1-41 H HIV [id number] 12:45:00 Test Item Value Reference Range Interpretation Comments HIV 1/2 Antibody Non-Reactive Non-Reactive N HIV1/2 Anti body screen (test code = result indicate s the HIV1/2AB) absence of HIV1 and RKU9buyziypvr.H owever, A Non-Reactive screen result does not [...] HIV RNA Quantit ative is recommended. RPR, [id number] 21:30:00 Test Item Value Reference Range Interpretation Comments RPR (test code = RPR) Non-Reactive Non-Reactive N Thyroid Stimulating Hormone (TSH)2017-03-17 09:55:00 Test Item Value Reference Range Interpretation Comments TSH (test code = TSH) 0.94 mIU/mL 0.270-4.200 N Lipid [id number] 09:53:00 Test Item Value Reference Range Interpretation Comments Cholesterol (test 124 mg/dL 0-200 N code = CHOL) Triglycerides (test 61 mg/dL 9-200 N code = TRIG) HDL (test code = 47 mg/dL 40-60 N HDL) Chol/HDL (test code 2.6 Ratio 0.0-5.0 N = CHOLPHDL) LDL, Calculated 65 0-130 N (NOTE)RISK O F HEART (test code = LDLC) DISEASEPu blished by [place] Heart AssociationAnal yte Optim al Boderline Increased RiskC HOL <200 200-239 >240TRI G <150 150-199 >200HDL Male: >60 <40HDL Female: >60 <50 LDL < 100 130-15 9 >160 LDL NEAR OPTIMAL IS 100- 129 VLDL (test code = 12 mg/dL 5-40 N VLDL) LDL/HDL (test code = 1 LDLPHDL) Urinalysis [id number] 15:09:00 Test Item Value Reference Range Interpretation Comments Color (test code = Yellow Yellow,Straw,Pl N COLOR) yellow Clarity (test code = Clear Clear N CLAR) Specific [place] (test 1.028 1.001-1.035 N code = SPGR) [...] = 0-1 Granular /HPF CASTS) Comprehensive Metabolic [id number] 14:24:00 Test Item Value Reference Range Interpretation [...] by the National Kidney Foundation,http ://nkd ep.nih.gov [id number] 14:20:00 Test Item Value Reference Range Interpretation [...] 0.00-0.01 N code = ETOHU) CBC with Ncckvfapnmid9811-92-09 14:08:00 Test Item Value Reference Range Interpretation [...] code = ALYMPH) 2.2 K/cumm 0.5-4.6 N [place] Abs (test code = AMONO) 0.9 K/cumm 0.0-1.2 N Eos Abs (test code = AEOS) 0.06 K/cumm 0.00-0.74 N Baso Abs (test code = ABASO) 0.0 K/cumm 0.00-0.21 N
[2021-05-17 05:59] LABS: Urine Blood Trace-intact (Negative); Urine Glucose Negative (Negative); Urine Protein Negative (Negative); Urine pH 6.5 (5.0-7.0)
[2021-05-17 06:14] LABS: Barbiturates NEGATIVE (NEGATIVE); Benzodiazepines NEGATIVE (NEGATIVE); Cocaine NEGATIVE (NEGATIVE); METHAMPHETAM POSITIVE (NEGATIVE); Methadone NEGATIVE (NEGATIVE); Opiates NEGATIVE (NEGATIVE); Phencyclidine NEGATIVE (NEGATIVE); THC Cannibis NEGATIVE (NEGATIVE)
[2021-05-17 06:23] LABS: Absolute Lymphocytes (CBC) 1.4 K/uL (0.7-4.9); Hematocrit 47.6 % (39.6-49.0); Lymphocytes % 21.7 % (15.3-44.8); MPV 6.9 fL (7.6-11.3); RBC Red Blood Cell Count 5.28 M/uL (4.33-5.43)
[2021-05-17 06:45] LABS: BUN Blood Urea Nitrogen 14 mg/dL (7-18); Bicarbonate 27 mmol/L (21-32); Glucose Level 97 mg/dL (74-106); Potassium 3.6 mmol/L (3.5-5.1); Sodium Level 134 mmol/L (136-145)
[2021-05-17 06:47] LABS: Troponin High Sensitivity < 3.0 pg/mL (<58.9)
--- NOTE | 2021-05-17 07:48 | RAD REPORT ---
EXAM DESCRIPTION: USExtrem Venous W Compress Bil05/17/2021 7:03 am CLINICAL HISTORY: Bilateral leg pain COMPARISON: none FINDINGS: The common femoral, superficial femoral, popliteal and posterior tibial veins bilaterally are compressible and demonstrate augmentation. Doppler demonstrates good flow. Grayscale, color and spectral analysis performed on all vessels IMPRESSION: No evidence of deep venous thrombosis involving either lower extremity.
[2021-05-17] MEDS ORDERED: ASPIRIN 81 MG CHEWABLE TABLET ONE (07:54)
--- NOTE | 2021-05-17 07:54 | RAD REPORT ---
EXAM DESCRIPTION: CT - Chest For Pe Angio - 05/17/2021 7:19 am CLINICAL HISTORY: Cough COMPARISON: May 08, 2021 TECHNIQUE: Dynamically enhanced axial 3 mm thick images of the chest were obtained during administra tion of <100> mL Isovue 370 IV contrast. Coronal and oblique reconstruction images were generated and reviewed. Exam utilizes a protocol for optimal evaluation of pulmonary arterial tree. Maximum intensity projections 3D imaging was utilized All CT scans are performed using dose optimization technique as appropriate and may include automated exposure control or mA/KV adjustment according to patient size. FINDINGS: Opacification of pulmonary arteries is suboptimal. No gross pulmonary embolus is seen. A thoracic aortic aneurysm is not noted. A pleural effusion is not seen. A pericardial effusion is not seen. A few small areas of atelectasis within the right lung. IMPRESSION: No gross evidence of a pulmonary embolism
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
--- NOTE | 2021-05-17 10:41 | RAD REPORT ---
EXAM DESCRIPTION: Lyric Single View05/17/2021 5:53 am CLINICAL HISTORY: Cough COMPARISON: May 06, 2021 FINDINGS: The lungs appear clear of acute infiltrate. The heart is normal size IMPRESSION: No acute abnormalities displayed
[2021-05-17 11:43] VITALS: BP 96/59; TEMP 98.6; O2SAT 99
--- NOTE | 2021-05-20 11:22 | EKG ---
Test Date: 2021-05-17 Test Time: 04:47:56 Placement Director: MEASUREMENT RESULTS: Intervals: Rate: 117 AL: 118 QRSD: 80 QT: 298 QTc: 415 [place]: P: 60 AL: 118 QRS: 79 T: 57 INTERPRETIVE STATEMENTS: Sinus tachycardia Otherwise normal ECG Compared to ECG 05/08/2021 10:36:33 No significant changes Electronically Signed On 05-20-21 11:13:42 CDT by Cj Anderson
--- NOTE | 2021-05-21 08:35 | EKG ---
Test Date: 2021-05-17 Test Time: 06:08:39 Commodity Supervisor: FANNY MEASUREMENT RESULTS: Intervals: Rate: 111 AL: 122 QRSD: 82 QT: 320 QTc: 435 [place]: P: 51 AL: 122 QRS: 80 T: 56 INTERPRETIVE STATEMENTS: Sinus tachycardia Otherwise normal ECG Compared to ECG 05/17/2021 04:47:56 No significant changes Electronically Signed On 05-21-21 08:28:35 CDT by Cj Anderson
== END 2021-05-17 11:32 | disposition home or self-care (01) ==
LOC: ER 04:35
DX: R07.9 Chest pain, unspecified (principal); F55.8 Abuse of other non-psychoactive substances; F20.9 Schizophrenia, unspecified; F17.210 Nicotine dependence, cigarettes, uncomplicated; Z88.5 Allergy status to narcotic agent; Z88.6 Allergy status to analgesic agent; Z88.8 Allergy status to other drugs, medicaments and biological substances
CPT/HCPCS: 93005 ×2; 85025; 80048; 36415; 85379; 81003; 84484; 80307; 71275; 71045; 93970; 99285; Q9967

== ENCOUNTER 2021-05-28 01:00 | Emergency (ER) | payer OTHER ==
--- OUTSIDE RECORDS SUMMARY | 2021-05-28 01:11 | XMS REPORT | Continuity of Care Document ---
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 2021-01-31 COVID-19 VACCINE (3 [facility] Test 17:19:18 - Booster) [code = COVID-19 VACCINE (3 - Booster)] Encounters Start End Encounter Admission Attending Care Care Encounter Source Date/Time Date/Time Type Type Clinicians Facility Department ID 2021-03-14 Outpatient [id number] ENCPL CARLENE ENCPL 13:33:41 [id number] Outpatient [id number] ENCPL REF ENCPL 13:33:01 12202021-02-11 Inpatient MENDEL, [facility] [id number] H arris 00:00:00 [facility] 2021-01-24 Inpatient VIKASH, [facility] [id number] [place] 07:00:09 [facility] 2021-01-22 Inpatient [facility] [id number] H arris 00:00:00 [facility] 2021-01-21 Inpatient [facility] [id number] H arris 00:00:00 [facility] 2021-01-20 Inpatient [facility] [id number] H arris 00:00:00 [facility] 2021-01-18 Inpatient [facility] [id number] H arris 00:00:00 [facility] 2021-01-17 Inpatient [facility] [id number] H arris 00:00:00 [facility] 2021-01-16 Inpatient [facility] [id number] H arris 00:00:00 [facility] 2021-01-15 Inpatient ROLDAN, [facility] [id number] [place] 00:00:00 [facility] 2021-01-13 Inpatient [facility] [id number] H arris 00:00:00 [facility] 2021-01-12 Inpatient [facility] [id number] H arris 00:00:00 [facility] 2021-01-11 Inpatient [facility] [id number] H arris 00:00:00 [facility] 2021-01-10 Inpatient [facility] [id number] H arris 00:00:00 [facility] 2021-01-09 Inpatient [facility] [id number] H arris 00:00:00 [facility] 2021-01-08 Inpatient YULI, [facility] [id number] [place] 00:00:00 [facility] 2021-01-06 Inpatient [facility] [id number] H arris 00:00:00 [facility] 2021-01-05 Inpatient YULI, [facility] [id number] [place] 00:00:00 [facility] 2021-01-04 Inpatient YULI, [facility] [id number] [place] 00:00:00 [facility] 2021-01-03 Inpatient YULI, [facility] [id number] [place] 00:00:00 [facility] 2021-01-02 Inpatient [facility] [id number] H arris 00:00:00 [facility] 2020-12-30 Inpatient 1 MAREK, [facility] [id number] H arris 22:32:00 BUSHRA Bookerlupe 2020-12-30 Inpatient PAULSON, [facility] [id number] [place] 00:00:00 [facility] 2020-12-30 Inpatient PAULSON, [facility] [id number] [place] 00:00:00 [facility] 2020-05-17 Inpatient HCAKW MALIKA [id number] [facility] 01:21:00 [id number] [facility] 2020-05-14 Inpatient HCAKW MALIKA [id number] [facility] 23:22:00 [id number] [facility] 2019-08-29 Inpatient [facility]CR MALIKA [id number] [facility] 22:17:[id number] [facility] 2019-06-22 Inpatient [facility] MALIKA [id number] [facility] 13:23:[id number] [facility] 2021-05-27 2021-05-27 Outpatient GC_[facility]_Tod PRIV PRIV [id number] [facility] 03:48:00 03:48:00 d_J [id number] Medica l 2021-05-24 2021-05-24 Outpatient GC_BAHC_Spa PRIV PRIV [id number] [facility] 04:32:00 04:32:00 saroj_Tony [id number] Medica l 2021-05-07 2021-05-08 Outpatient Jagjit CLAY [facility] [id number] Univers 08:26:00 04:30:00 MARTIN pinto [facility] 2021-05-07 2021-05-08 Emergency Tono Roberto [facility] [id number]. [id number] Univers 08:26:00 04:30:00 Martin Clay DEMA 350.1.13.10 ity [facility] 4.2.7.2.686 [facility] [id number] [address] 2021-03-28 2021-03-28 Outpatient [facility] [id number] [place] 00:00:00 00:00:00 GALE maldonado 2021-03-20 2021-03-20 Outpatient PASCUAL MAHAN [facility] [id number] [place] 00:00:00 00:00:00 [facility] 2020-12-30 2021-02-28 [facility] [id number] [place] 22:32:00 18:41:00 BUSHRA Booker 2020-12-30 2021-02-28 [facility] [id number] [place] 22:32:00 18:41:00 BUSHRA Booker 2021-02-15 2021-02-15 Inpatient [facility] [id number] [place] 10:50:13 11:18:57 [facility] 2021-02-14 2021-02-14 Inpatient [facility] [id number] [place] 16:43:15 18:41:33 Health 2021-02-14 2021-02-14 Inpatient [facility] [id number] [place] 07:24:16 09:18:07 [facility] 2021-01-31 2021-01-31 Inpatient [facility] [id number] [place] 01:03:14 03:25:48 Health 2021-01-25 2021-01-25 Inpatient [facility] [id number] [place] 01:35:50 03:05:16 Health 2021-01-23 2021-01-23 Inpatient [facility] [id number] [place] 02:10:17 04:59:36 [facility] 2021-01-21 2021-01-21 Inpatient VIKASH, [facility] [id number] [place] 15:43:59 16:18:10 VANE maldonado I 2021-01-13 2021-01-13 Inpatient [facility] [id number] [place] 16:20:12 17:12:27 Health 2021-01-07 2021-01-07 Inpatient [facility] [id number] [place] 18:28:43 18:28:46 Health 2021-01-07 2021-01-07 Inpatient [facility] [id number] [place] 00:12:42 01:07:25 Health 2021-01-04 2021-01-04 Inpatient [facility] [id number] [place] 17:11:58 18:14:36 [facility] 2021-01-04 2021-01-04 Inpatient KARYN, [facility] [id number] [place] 13:40:49 15:55:44 [facility] 2021-01-03 2021-01-03 Inpatient [facility] [id number] [place] 17:58:59 17:59:03 [facility] 2021-01-01 2021-01-01 Inpatient [facility] [id number] [place] 16:44:03 16:44:07 [facility] 2021-01-01 2021-01-01 Inpatient EMMA, [facility] [id number] [place] 08:36:00 09:12:12 [facility] 2021-01-01 2021-01-01 Inpatient [facility] [id number] [place] 07:46:21 08:35:30 [facility] 2021-01-01 2021-01-01 Inpatient ROLDAN, [facility] [id number] [place] 02:09:24 03:31:22 GRISEL [facility] 2020-12-31 2020-12-31 Inpatient MAREK, [facility] [id number] [place] 05:17:16 06:34:53 BUSHRA Booker 2020-12-31 2020-12-31 Inpatient [facility] [id number] [place] 01:50:33 06:34:15 [facility] 2020-12-31 2020-12-31 Inpatient [facility] [id number] [place] 03:50:31 04:54:13 [facility] 2020-12-31 2020-12-31 Inpatient [facility] [id number] [place] 01:43:22 04:38:47 Health 2020-12-30 2020-12-30 Emergency [facility] [id number] [place] 22:46:36 23:04:47 Health 2020-12-30 2020-12-30 Emergency [facility] [id number] [place] 22:46:20 23:04:03 [facility] 2020-12-30 2020-12-30 Emergency [facility] [id number] [place] 22:47:41 23:03:11 [facility] 2020-12-30 2020-12-30 Emergency [facility] [id number] [place] 00:00:00 00:00:00 [facility] 2020-12-20 2020-12-20 Emergency EM Uziel, [facility] [id number] [facility] 06:26:00 16:34:[address] [facility] 2020-12-20 2020-12-20 Emergency EM Uziel, [facility] [id number] [facility] 06:26:00 16:34:[id number] [facility] 2020-11-15 2020-11-16 Emergency Eusebia Bland 1.2.840 .1 [id number] Methodi 00:55:00 14:35:00 William Nunes 44197.1.[address] Gerard Sorensenin 3.430.2.7 Hospita .3.981601 l .8 2020-11-14 2020-11-14 Emergency Manju 1.2.840.1 [id number] Methodi 15:47:00 16:03:00 William Langston 39876.1.[address] 3.430.2.7 Hospit a .3.182763 l .8 2020-10-22 2020-10-24 [facility] Dennis Wynn 1.2.840.1 [id number] Methodi 16:52:00 16:26:00 Encounter Pepito Lauren 21949.1.[address] Jessica Awad 3.430.2.7 Hospita MeLashaun dunbar .3.777383 l .8 2020-10-16 2020-10-16 Emergency EM Crismon, [facility] MALIKA [id number] [facility] 00:20:00 08:00:00 Gale [id number] [facility] 2020-10-06 2020-10-06 Emergency EM Zia, HCAKW MALIKA [id number] [facility] 01:57:00 20:14:00 [facility] [id number] [facility] 2020-09-05 2020-09-05 Emergency EM Kylah, Michael [facility] MALIKA [id number] [facility] 11:17:00 18:22:[id number] [facility] 2020-09-03 2020-09-03 Emergency EM Pardo[facility] [id number] [facility] 03:35:00 15:00:[id number] [facility] 2020-09-02 2020-09-03 Emergency EM Marshall, Michael [facility] [id number] [facility] 23:16:00 01:53:[id number] [facility] 2020-08-11 2020-08-12 Emergency EM Giovanni-Kenneth[facility] [id number] [facility] 11:12:00 00:40:[id number] [facility] 2020-07-12 2020-07-12 [facility] 1.2.821.409 [id number] [facility] 03:16:00 05:05:00 Michael Carmita Magdalena 350.1.13.10 ity of [place] 4.2.7.2.686 [facility] [id number] [facility] 084 Branch 2020-07-12 2020-07-12 Emergency [facility] 1.2.217.755 [id number] 03:16:00 05:05:00 Michael Carmita Magdalena 350.1.13.10 [place] 4.2.7.2.686 [place] [id number] 2020-07-12 2020-07-12 Emergency X [facility] ERT [id number] Univers 03:16:00 03:16:00 MICHAEL pinto [facility] 2019-02-21 2019-02-21 Outpatient [facility] [id number] [place] 00:00:00 00:00:00 [facility] 2019-02-19 2019-02-19 Emergency [facility] TAMEKA [id number] St[address] 07:23:00 07:23:00 [facility] 2019-02-01 2019-02-01 Outpatient [facility] [id number] [place] 22:11:49 22:11:49 [facility] 2018-11-04 2018-11-05 [facility] [id number] [facility] 20:38:48 05:13:00 Brown Nichols 350.1.13.10 [facility] 4.2.7.2.686 [facility] [id number] [address] 2018-11-04 2018-11-05 [facility] 1.2.411.133 [id number] 20:38:48 05:13:00 Brown Nichols 350.1.13.10 [place] [address] [place] [address] [id number] [facility] 2018-10-18 2018-10-18 Emergency [facility] MED [id number] [place] 06:08:40 06:08:40 [facility] 2017-04-02 2017-04-02 Outpatient [facility] [id number] [place] 00:00:00 00:00:00 [facility] 2017-03-29 2017-03-29 Emergency [facility] [id number] [place] 00:00:48 00:00:48 [facility] 2017-03-22 2017-03-22 [facility] [id number] 11:46:00 11:46:00 [facility] 2017-03-16 2017-03-20 [facility] [id number] 20:46:00 13:41:00 Jonathon DIOP M.D. [facility] 2017-01-26 2017-01-26 Outpatient [facility] [id number] [facility] 00:00:00 00:00:00 Results Test Description Test Time Test Comments Results Result Comments Source TROPONIN I 2021-05-08 04:00:37 Test Item Value Reference Range Interpretation Comme nts TROPONIN I (test code = 0.000 ng/mL See_Comment [Au tomated message] The [id number]) system which ge nerated this result tra [...] biotin. Lab Interpretation Normal (test code = 08610-9) [facility] [id number] 00:46:10 Test Item Value Reference Range Interpretation Comments ESR (test code = See_Comment H [Automated message] [id number]) The system [employer] generated this result transmitted ref erence range: 0 - 10 m m/HR. The reference r johan was not used to interpret this result as normal/abnor mal. Lab Interpretation (test Abnormal code = 21280-4) [facility]inteGLYCOSYLATED HEMOGLOBIN (A1C)2021-05-07 20:23:40 Test Item Value Reference Range Interpretation Comments HGB A1C (test code = 5.3 % 4.0-5.7 4548-4) GEORGIE (test code = GEORGIE) Reference RangesNormal: <5.7%Prediabetes: 5.7 - 6.4%Diabetes: > 6.5% Lab Interpretation (test Normal code = 88416-4) [facility] METABOLIC PANEL (30564)2021-05-07 16:11:59 Test Item Value Reference Range Interpretation Comments NA (test code = 139 mmol/L 135-145 0251411000) K (test code = 3.9 mmol/L 3.5-5.0 1558408342) CL (test code = 101 mmol/L 98-108 0028384328) CO2 TOTAL (test code = 23 mmol/L 23-31 2072995743) AGAP (test code = 2-16 0366846395) BUN (test code = 13 mg/dL 7-23 7280749820) GLUCOSE (test code = 92 mg/dL 70-110 4272421044) CREATININE (test code = 0.40 mg/dL 0.60-1.25 L 0156075208) TOTAL BILI (test code = 1.6 mg/dL 0.1-1.1 H 1628856957) CALCIUM (test code = 9.6 mg/dL 8.6-10.6 6088620787) T PROTEIN (test code = 7.7 g/dL 6.3-8.2 9080202993) ALBUMIN (test code = 4.6 g/dL 3.5-5.0 2290773706) ALK PHOS (test code = 91 U/L 34-122 1821264553) ALTv (test code = 24 U/L 5-50 1742-6) AST(SGOT) (test code = 31 U/L 13-40 5894036362) eGFR (test code = mL/min/1.73m2 9022656153) GEORGIE (test code = GEORGIE) Association of [...] tests). Lab Interpretation Abnormal (test code = 25853-0) [facility]IV[facility] PARTIAL THRMPLAS [id number] 15:52:36 Test Item Value Reference Range Interpretation Comments APTT Patient (test See_Comment [Automat ed code = 3173-2) message] The system which generated this result transmitted reference range : 23 - 38 Seconds . The reference range was not used to interpr et this result as normal/abnormal . GEORGIE (test code = GEORGIE) The [facility] patient population mean normal value for aPTT is 30 seconds. Lab Interpretation Normal (test code = 68812-9) [facility]intePROTHROMBIN TIME / [id number] 15:50:30 Test Item Value Reference Range Interpretation [...] tions. Lab Interpretation (test Normal code = 00268-2) [facility]CBC WITH [id number] 15:42:54 Test Item Value Reference Range Interpretation Comments WBC (test code = See_Comment [Automated 90-2) message] The sy stem which generated this result transmitted reference range : 4.20 - 10.70 10*3/?L. The reference range was not used to interpret this result as normal/abnormal . RBC (test code = See_Comment [Automated 779-8) message] The sy stem which generated this [...] RDW-SD (test code = 44.1 fL 38.5-51.6 49990-5) RDW-CV (test code = 13.3 % 12.1-15.4 788-0) PLT (test code = See_Comment [Automated 777-3) message] The sy stem which generated this result transmitted reference range : 150 - 328 10*3/ ?L. The reference r johan was not used to interpret this result as normal/abnormal . MPV (test code = 9.7 fL 9.8-13.0 L 59249-4) NRBC/100 WBC (test See_Comment [Automat ed code = 0975614089) message] The system which generated this result transmitted reference range : 0.0 - 10.0 /100 WBCs. The refer ence range was not u sed to interpret th is result as normal/abnormal . NRBC x10^3 (test code <0.01 See_Comment [Auto mated = 2940375261) message] The s ystem which generated this result transmitted reference range : 10*3/?L. The reference range was not used to interpret this result as normal/abnormal . GRAN MAT (NEUT) % 77.6 % (test code = 770-8) IMM GRAN % (test code 0.60 % = 0693256802) LYMPH % (test code = 13.7 % 736-9) MONO % (test code = 7.7 % 5905-5) EOS % (test code = 0.2 % 713-8) BASO % (test code = 0.2 % 706-2) GRAN MAT x10^3(ANC) 7.68 10*3/uL 1.99-6.95 H (test code = 8395611349) IMM GRAN x10^3 (test 0.06 10*3/uL 0.00-0.06 code = 1204290079) LYMPH x10^3 (test code 1.35 10*3/uL 1.09-3.23 = 731-0) MONO x10^3 (test code 0.76 10*3/uL 0.36-1.02 = 742-7) EOS x10^3 (test code = <0.03 0.06-0.53 L 711-2) BASO x10^3 (test code <0.03 0.01-0.09 = 704-7) Lab Interpretation Abnormal (test code = 87785-5) [facility]inte[facility]ARS-CoV-2 ORF1ab Resp Ql [id number] 19:38:49 Test Item Value Reference Range Interpretation Comments Hospitalized? (test Yes code = 69634-1) ICU? (test code = No 10201-7) Symptomatic as defined No by CDC? (test code = 40684-9) Employed in No Healthcare? (test code = 05368-3) Resident in a No congregate care setting (including nursing homes, residential care for people with intellectual and developmental disabilities, psychiatric treatment facilities, group homes, board and care homes, homeless residential, foster care or other): (test code = 48951-3) SARS-CoV-2 ORF1ab Resp NOT DETECTED Not Detected INTER PRETATION: No Ql BETY+probe (test detectabl e levels code = 70472-2) of SARS-CoV- 2 Coronavirus (COVID-19) were present [...] n with SARS-CoV-2 Coronavirus (COVID-19). COMMENT: This Hologic Aptima SARS-CoV-2 molecular diagnostic assay utilizes Tobacco Sorter Mediated Amplification (TMA) technology to rapidly detect the SARS-CoV-2 (COVID-19) virus from respiratory samples. In accordance with the FDA's guidance document "Policy for Diagnostic Tests for Coronavirus Disease- 2019 during the Public Health Emergency", this test was developed, and its performance characteristics were verified by the [facility] molecular diagnostics laboratory and is authorized for clinical diagnostic use. This laboratory is certified under the Clinical Laboratory Improvement Amendments (CLIA) as qualified to perform high complexity clinical laboratory testing.SARS-CoV-2 RNA Resp Ql [id number]+[id number] 22:20:00 Test Item Value Reference Range Interpretation Comments Hospitalized? (test Yes code = 76962-8) ICU? (test code = No 13485-9) Symptomatic as defined No by CDC? (test code = 28563-1) Employed in Unknown Healthcare? (test code = 49375-0) Resident in a Unknown congregate care setting (including nursing homes, residential care for people with intellectual and developmental disabilities, psychiatric treatment facilities, group homes, board and care homes, homeless residential, foster care or other): (test code = 90842-2) SARS-CoV-2 RNA Resp Ql NOT DETECTED Not Detected INTER PRETATION: No BETY+probe (test code = detec table levels 02435-3) of SARS-CoV-2 Coronavirus (COVID-19) were present in [...] its performance characteristics were verified by the [facility] molecular diagnostics laboratory and is authorized for clinical diagnostic use. This laboratory is certified under the Clinical Laboratory Improvement Amendments (CLIA) as qualified to perform high complexity clinical laboratory testing.SARS-CoV-2 ORF1ab Resp Ql [id number]+[id number] 14:59:31 Test Item Value Reference Range Interpretation Comments Hospitalized? (test Yes code = 02703-7) ICU? (test code = Yes 525079-4) Symptomatic as defined No by CDC? (test code = 06267-9) Employed in No Healthcare? (test code = 70624-3) Resident in a No congregate care setting (including nursing homes, residential care for people with intellectual and developmental disabilities, psychiatric treatment facilities, group homes, board and care homes, homeless residential, foster care or other): (test code = 28567-7) SARS-CoV-2 ORF1ab Resp NOT DETECTED Not Detected INTER PRETATION: No Ql BETY+probe (test detectabl e levels code = 07534-2) of SARS-CoV- 2 Coronavirus (COVID-19) were present [...] n with SARS-CoV-2 Coronavirus (COVID-19). COMMENT: This GIVTEDima SARS-CoV-2 molecular diagnostic assay utilizes Tobacco Sorter Mediated Amplification (TMA) technology to rapidly detect the SARS-CoV-2 (COVID-19) virus from respiratory samples. In accordance with the FDA's guidance document "Policy for Diagnostic Tests for Coronavirus Disease- 2019 during the Public Health Emergency", this test was developed, and its performance characteristics were verified by the [facility] molecular diagnostics laboratory and is authorized for clinical diagnostic use. This laboratory is certified under the Clinical Laboratory Improvement Amendments (CLIA) as qualified to perform high complexity clinical laboratory testing.SARS-CoV-2 RNA Resp Ql BETY+[id number] 00:53:33 Test Item Value Reference Range Interpretation Comments Hospitalized? (test code Yes = 25464-8) ICU? (test code = No 11668-7) Symptomatic as defined No by CDC? (test code = 73892-5) Employed in Healthcare? No (test code = 86222-4) Resident in a congregate No care setting (including nursing homes, residential care for people with intellectual and developmental disabilities, psychiatric treatment facilities, group homes, board and care homes, homeless residential, foster care or other): (test code = 33911-4) ? (test code = No 57805-3) SARS-CoV-2 RNA Resp Ql DETECTED Not Detected A INTER PRETATION: This BETY+probe (test code = [place]ys [place] 70082-1) detectable RNA present for the SARS-CoV-2 Coronavirus [...] its performance characteristics were verified by the [facility] molecular diagnostics laboratory and is authorized for [...] NONE A MUCU) DRUGS OF ABUSE SCREEN [id number] 13:19:00 Test Item Value Reference Interpretation Comments [...] this result as normal/abnormal . BASIC METABOLIC [id number] 09:24:00 Test Item Value Reference Range Interpretation [...] this result as normal/abnormal . HEPATIC FUNCTION [id number] 09:24:00 Test Item Value Reference Range Interpretation [...] 59 Unit/L 45-117 N code = ALKP) [id number] 09:24:00 Test Item Value Reference Range Interpretation Comments ACETAMINOPHEN (test code = ACET) <2.0 mcG/ML 10.0-30.0 L [id number] 09:24:00 Test Item Value Reference Range Interpretation Comments ALCOHOL (test code = < 3 MG/DL 0-10 N MEDICAL ALCOHOL ALC) RESULTS. SITE W PREPPED WITH BE TADINE. <10 MG/DL ARE CONSIDERED NEGA TIVE. >400 MG/DL MAY BE FATAL.RESULTS F OR MEDICAL USE ONL Y. NOT TO BE USED FOR FORENSIC PURPOSES. [id number] 07:55:00 Test Item Value Reference Range Interpretation Comments SALICYLATE (test code < 1.7 MG/DL See_Comment L RESULT <2.8 IS = SMITH) CONSIDERED NEGA TIVE FOR SALICYLATE. [Automated mess age] The system [employer] generated this result transmitted ref erence range: 2.8-20.0 THER. The reference r johan was not used to interpret this result as normal/abnor mal. CBC W/AUTO [id number] 07:10:00 Test Item Value Reference Range Interpretation [...] 0.00 K/mm3 0.00-0.05 N NRBC#) ECG 12 [id number] 22:52:05 Test Item Value Reference Range Interpretation Comments Ventricular rate (test code = 253) Atrial rate (test code = 255) [place] interval (test code = 266) QRSD interval [...] available-Electronica lly Signed By Doron Judge MD ([id number]) on 11/26/2020 5:52:04 PM [facility] [id number] 07:28:23 Test Item Value Reference Range Interpretation Comments Urine culture (test SEE COMMENT Bacteriu winston screen code = 3765112) negative. [facility] METABOLIC [id number] 09:20:00 Test Item Value Reference Range Interpretation [...] this result as normal/abnormal . Specimen comments: [facility] [id number] 09:20:00 Test Item Value Reference Range Interpretation [...] code = ALKP) Specimen comments: CCTHYROID STIMULATING [id number] 09:20:00 Test Item Value Reference Range Interpretation Comments THYROID STIMULATING HORMONE 0.619 mc IU/ML 0.340-4.820 N (test code = TSH) Specimen comments: [id number] 09:20:00 Test Item Value Reference Range Interpretation [...] change s in troponin levelscharacter istic of ND. Specimen comments: [id number] 09:20:00 Test Item Value Reference Range Interpretation Comments ACETAMINOPHEN (test code = ACET) <2.0 mcG/ML 10.0-30.0 L Specimen comments: [id number] 09:20:00 Test Item Value Reference Range Interpretation Comments ALCOHOL (test code = < 3 MG/DL 0-10 N MEDICAL ALCOHOL ALC) RESULTS. SITE W PREPPED WITH BE TADINE. <10 MG/DL ARE CONSIDERED NEGA TIVE. >400 MG/DL MAY BE FATAL.RESULTS F OR MEDICAL USE ONL Y. NOT TO BE USED FOR FORENSIC PURPOSES. Specimen comments: [id number] 08:59:00 Test Item Value Reference Range Interpretation Comments SALICYLATE (test code < 1.7 MG/DL See_Comment L RESULT <2.8 IS = SMITH) CONSIDERED NEGA TIVE FOR SALICYLATE. [Automated mess age] The system [employer] generated this result transmitted ref erence range: 2.8-20.0 THER. The reference r johan was not used to interpret this result as normal/abnor mal. Specimen comments: BASI METABOLIC [id number] 08:55:00 Test Item Value Reference Range Interpretation [...] message] (test code = Index/DL The system [employer] HEMINDEX) generated this result transmit isai [...] as normal/abnormal . Specimen comments: CCHEPATIC FUNCTION [id number] 08:55:00 Test Item Value Reference Range Interpretation [...] code = ALKP) Specimen comments: CCTHYROID STIMULATING [id number] 08:55:00 Test Item Value Reference Range Interpretation Comments THYROID STIMULATING HORMONE 0.619 mc IU/ML 0.340-4.820 N (test code = TSH) Specimen comments: [id number] 08:55:00 Test Item Value Reference Range Interpretation [...] change s in troponin levelscharacter istic of ND. Specimen comments: [id number] 08:55:00 Test Item Value Reference Range Interpretation Comments ACETAMINOPHEN (test code = ACET) mcG/ML 10.0-30.0 Specimen comments: [id number] 08:55:00 Test Item Value Reference Range Interpretation Comments ALCOHOL (test code = < 3 MG/DL 0-10 N MEDICAL ALCOHOL ALC) RESULTS. SITE W PREPPED WITH BE TADINE. <10 MG/DL ARE CONSIDERED NEGA TIVE. >400 MG/DL MAY BE FATAL.RESULTS F OR MEDICAL USE ONL Y. NOT TO BE USED FOR FORENSIC PURPOSES. Specimen comments: CCCBC W/AUTO [id number] 08:10:00 Test Item Value Reference Range Interpretation [...] NRBC#) Specimen comments: CC- XR CHEST 1 [id number] 03:12:00 [facility] : 1985 Sex: M FAX: Mahin Smallwood MD [phone] [place]: E St: REG FAX: Vilma Coker [phone] Patient Name: ARLINE RAO Unit No: [id number] EXAMS: CPT CODE: [id number] XR CHEST 1 V 67297 EXAM: - XR CHEST 1 V HISTORY: [...] 10/16/2020 (314) TATUM Mcarthur NAME: ARLINE RAO [address] [place] [address] PHYS: Vilma [place], [place] [address] : 1985 AGE: 35 SEX: M LOC: CASSANDRA PHONE #: [phone] EXAM DATE: 10/16/2020 STATUS: REG ER FAX #: [phone] RAD NO: DC Dt: PAGE 1 Signed ReportCOVID 19 Asymptomatic IH [id number] 06:58:00 Test Item Value Reference Range Interpretation Comments COVID 19 Asymptomatic IH AG (test POSITIVE Negative A code = COVNONPUIAG) BASIC METABOLIC [id number] 04:22:00 Test Item Value Reference Range Interpretation [...] 8.3 mg/dL 8.4-10.2 L CA) LIVER FUNCTION [id number] 04:22:00 Test Item Value Reference Range Interpretation [...] U/L 38-126 N (test code = ALKP) [id number] 04:22:00 Test Item Value Reference Range Interpretation Comments ALCOHOL (test code = < 10 mg/dL <10 ALC) ~~~~~~~~~~~~~~~ ~~~~~~~ ~~~~~~~~~~~~~~~ ~~~~~~~ ~~~~~~ RESU LTS ARE TO BE USED FOR MEDICAL PURPOSES ONLY.F OR LEGAL PURPOSES THE SPECIMEN MUST B E COLLECTED BY A CHAINOF CUSTODY. LEGAL TESTING IS NOT PERFORME D BY THIS FACILITY. ~~~~~~~~~~~~~~~ ~~~~~~~ ~~~~~~~~~~~~~~~ ~~~~~~~ ~~~~~~ CBC W/AUTO [id number] 04:08:00 Test Item Value Reference Range Interpretation [...] BA#) 0.02 x10 3/uL 0.0-0.1 N Coronavirus 2018 nCoV [id number] 17:19:00 Test Item Value Reference Range Interpretation Comments Coronavirus 2019 nCoV Bedside (test Negative Neg code = XFVFU03SYIQD) [id number] 13:14:00 Test Item Value Reference Range Interpretation Comments SALICYLATE (test code < 1.7 MG/DL See_Comment L RESULT <2.8 IS = SMITH) CONSIDERED NEGA TIVE FOR SALICYLATE. [Automated mess age] The system [employer] generated this result transmitted ref erence range: 2.8-20.0 THER. The reference r johan was not used to interpret this result as normal/abnor mal. BASIC METABOLIC [id number] 13:03:00 Test Item Value Reference Range Interpretation [...] message] (test code = Index/DL The system [employer] HEMINDEX) generated this result transmit isai [...] The system which generated this result transmit siai reference range : 1 NORMAL. The reference range was not used to interpret this result as normal/abnormal . HEPATIC FUNCTION [id number] 13:03:00 Test Item Value Reference Range Interpretation [...] 87 Unit/L 45-117 N code = ALKP) [id number] 13:03:00 Test Item Value Reference Range Interpretation Comments ACETAMINOPHEN (test code = ACET) <2.0 mcG/ML 10.0-30.0 L [id number] 13:03:00 Test Item Value Reference Range Interpretation Comments ALCOHOL (test code = < 3 MG/DL 0-10 N MEDICAL ALCOHOL ALC) RESULTS. SITE W PREPPED WITH BE TADINE. <10 MG/DL ARE CONSIDERED NEGA TIVE. >400 MG/DL MAY BE FATAL.RESULTS F OR MEDICAL USE ONL Y. NOT TO BE USED FOR FORENSIC PURPOSES. DRUGS OF ABUSE SCREEN [id number] 12:38:00 Test Item Value Reference Interpretation Comments [...] this result as normal/abnormal . BASIC METABOLIC [id number] 12:37:00 Test Item Value Reference Range Interpretation [...] message] (test code = Index/DL The system [employer] [facility]) generated this result transmit isai reference range [...] this result as normal/abnormal . HEPATIC FUNCTION [id number] 12:37:00 Test Item Value Reference Range Interpretation [...] 87 Unit/L 45-117 N code = ALKP) [id number] 12:37:00 Test Item Value Reference Range Interpretation Comments ACETAMINOPHEN (test code = ACET) mcG/ML 10.0-30.0 [id number] 12:37:00 Test Item Value Reference Range Interpretation Comments ALCOHOL (test code = < 3 MG/DL 0-10 N MEDICAL ALCOHOL ALC) RESULTS. SITE W PREPPED WITH BE TADINE. <10 MG/DL ARE CONSIDERED NEGA TIVE. >400 MG/DL MAY BE FATAL.RESULTS F OR MEDICAL USE ONL Y. NOT TO BE USED FOR FORENSIC PURPOSES. CBC W/AUTO [id number] 12:02:00 Test Item Value Reference Range Interpretation [...] code = 0.00 K/mm3 0.00-0.05 N NRBC#) [id number] 23:33:00 Test Item Value Reference Range Interpretation [...] change s in troponin levelscharacter istic of ND. B-TYPE NATRIURETIC [id number] 19:24:00 Test Item Value Reference Range Interpretation Comments B-TYPE NATRIURETIC PEPTIDE < 30.00 PG/ML 0.00-100.00 N (test code = BNP) URINALYSIS [id number] 15:43:00 Test Item Value Reference Range Interpretation Comments UA COLOR (test code = DESCRIPT YELLOW COLU) UA APPEARANCE (test DESCRIPT CLEAR code = APPU) UA GLUCOSE DIPSTICK mg/dL See_Comment [Automa isai message] (test code = DGLUU) The [employer] em which generated this result transmitted ref erence range: 0 (NATHALY L). The reference r johna was not used to interpret this result [...] tomated message] code = NARESH) The system [employer] h generated this result transmitted ref erence [...] a.STF.VT15 AT 08/11/20 1302DRUGS OF ABUSE SCREEN [id number] 15:43:00 Test Item Value Reference Interpretation Comments [...] available. Clin ical consideration andprofessional judgement latosha adams be applied to any drug ofabuse test [...] (0.00) See_Comment [Autom ated (test code = NRAESH) mg/dL message] T he system which generated [...] A MUCU) PENDING RECEIPT OF SPECIMEN PER a.STF.VT15 AT 08/11/20 1302DRUGS OF ABUSE SCREEN [id number] 15:43:00 Test Item Value Reference Interpretation Comments [...] XR HAND 3 + V 2020-08-11 13:43:00 [facility] : 1985 Sex: M FAX: Lan Agee MD [phone] [place]: St: PRE Patient Name: ARLINE RAO Unit No: [id number] EXAMS: CPT CODE: [id number] XR HAND 3 + V LT [address]89 EXAM: - XR HAND 3 + V [...] By: [email or web address] Orig Print D/T: S: 08/11/2020 (1053) [facility] Lyubov NAME: JALENEDMUND [address] PHYS: Lan [place], [place] [address] : 1985 AGE: 34 SEX: M LOC: CASSANDRA PHONE #: [phone] EXAM DATE: 08/11/2020 STATUS: PRE ER FAX #: [phone] RAD NO: DC Dt: PAGE 1 Signed Report- XR CHEST 1 [id number] 13:41:00 [facility] : 1985 Sex: M FAX: Lan Agee MD [phone] [place]: E St: PRE Patient Name: ARLINE RAO Unit No: [id number] EXAMS: CPT CODE: [id number] XR CHEST 1 V 98544 EXAM: - XR CHEST 1 V Location [...] CC: Lan Cooper MD Dictated Date/Time: 08/11/2020 (497)Technologist: Damaris Martinez Transcribed Date/Time: 08/11/2020 (134) By: [email or web address] Orig Print D/T: S: 08/11/2020 (7803) TATUM Mcarthur NAME: JALEN[address] PHYS: Lan Munroe [place], [place] [address] : 1985 AGE: 34 SEX: M LOC: B.ERS PHONE #: [phone] EXAM DATE: 08/11/2020 STATUS: PRE ER FAX #: [phone] RAD NO: DC Dt: PAGE 1 Signed ReportCOMPREHENSIVE METABOLIC [id number] 12:50:00 Test Item Value Reference Range Interpretation [...] (test code = MG Index/DL The system [employer] HEMINDEX) generated this result transmit isai [...] to interpret this result as normal/abnormal . [id number] 12:50:00 Test Item Value Reference Range Interpretation [...] change s in troponin levelscharacter istic of ND. [id number] 12:50:00 Test Item Value Reference Range Interpretation Comments ACETAMINOPHEN (test code = ACET) < 2.0 mcG/ML 10.0-30.0 L [id number] 12:50:00 Test Item Value Reference Range Interpretation Comments ALCOHOL (test code = <3 MG/DL 0-10 N MEDICAL ALCOHOL RESULTS. ALC) SITE WAS PREPPE D WITH BETADINE. <10 MG/DL ARE CONSI DERED NEGATIVE. >400 MG/DL MAY BE FATAL.RESULTS F OR MEDICAL USE ONL Y. NOT TO BE USED FOR FOR ENSIC PURPOSES. [id number] 12:39:00 Test Item Value Reference Range Interpretation Comments SALICYLATE (test code 3.1 MG/DL See_Comment N [Auto mated message] = SMITH) The system [employer] generated this result transmitted ref erence range: 2.8-20.0 THER. The reference r johan was not used to interpret this result as normal/abnor mal. COMPREHENSIVE METABOLIC [id number] 12:39:00 Test Item Value Reference Range Interpretation [...] (test code = MG Index/DL The system [employer] HEMINDEX) generated this result transmit isai [...] to interpret this result as normal/abnormal . [id number] 12:39:00 Test Item Value Reference Range Interpretation [...] change s in troponin levelscharacter istic of ND. [id number] 12:39:00 Test Item Value Reference Range Interpretation Comments ACETAMINOPHEN (test code = ACET) < 2.0 mcG/ML 10.0-30.0 L [id number] 12:39:00 Test Item Value Reference Range Interpretation Comments ALCOHOL (test code = ALC) MG/DL 0-10 COMPREHENSIVE METABOLIC [id number] 12:34:00 Test Item Value Reference Range Interpretation [...] (test code = MG Index/DL The system [employer] generated this result transmit isai reference range [...] to interpret this result as normal/abnormal . [id number] 12:34:00 Test Item Value Reference Range Interpretation Comments TROPONIN-I (test code = TROPI) NG/ML 0.000-0.045 [id number] 12:34:00 Test Item Value Reference Range Interpretation Comments ACETAMINOPHEN (test code = ACET) < 2.0 mcG/ML 10.0-30.0 L [id number] 12:34:00 Test Item Value Reference Range Interpretation Comments ALCOHOL (test code = ALC) MG/DL 0-10 CBC W/AUTO [id number] 12:23:00 Test Item Value Reference Range Interpretation [...] 0.00 K/mm3 0.00-0.05 N NRBC#) CBC WITH [id number] 09:49:19 Test Item Value Reference Range Interpretation [...] RDW-SD (test code = 42.9 fL 38.5-51.6 94647-5) RDW-CV (test code = 12.4 % 12.1-15.4 788-0) PLT (test code = See_Comment [Automated 777-3) message] The sy stem which generated this result transmitted reference range : 150 - 328 10*3/ ?L. The reference r johan was not used to interpret this result as normal/abnormal . MPV (test code = 9.8 fL 9.8-13.0 39754-0) NRBC/100 WBC (test See_Comment [Automat ed code = 0656964768) message] The system which generated this result transmitted reference range : 0.0 - 10.0 /100 WBCs. The refer ence range was not u sed to interpret th is result as normal/abnormal . NRBC x10^3 (test code <0.01 See_Comment [Auto mated = 0472810297) message] The s [email or web address] which generated this result transmitted reference range : 10*3/?L. The reference range was not used to interpret this result as normal/abnormal . GRAN MAT (NEUT) % 41.9 % (test code = 770-8) IMM GRAN % (test code 0.20 % = 9841992557) LYMPH % (test code = 40.9 % 736-9) MONO % (test code = 13.7 % 5905-5) EOS % (test code = 3.1 % 713-8) BASO % (test code = 0.2 % 706-2) GRAN MAT x10^3(ANC) 1.89 10*3/uL 1.99-6.95 L (test code = 1643806524) IMM GRAN x10^3 (test <0.03 0.00-0.06 code = 3489012543) LYMPH x10^3 (test code 1.85 10*3/uL 1.09-3.23 = 731-0) MONO x10^3 (test code 0.62 10*3/uL 0.36-1.02 = 742-7) EOS x10^3 (test code = 0.14 10*3/uL 0.06-0.53 711-2) BASO x10^3 (test code <0.03 0.01-0.09 = 704-7) Lab Interpretation Abnormal (test code = 45130-6) [facility] [id number] 09:39:48 Test Item Value Reference Range Interpretation Comments TROPONIN I (test 0.002 ng/mL See_Comment [Automated code = 0985963700) message] The system which generated this result [...] ? Lab Interpretation Normal (test code = 85980-4) [facility]. METABOLIC PANEL (53819)2020-07-12 09:22:19 Test Item Value Reference Range Interpretation Comments NA (test code = 135 mmol/L 135-145 5389582729) K (test code = 3.6 mmol/L 3.5-5.0 1383654620) CL (test code = 103 mmol/L 98-108 1473211538) CO2 TOTAL (test code = 26 mmol/L 23-31 5734840619) AGAP (test code = 2-16 8899209611) BUN (test code = 17 mg/dL 7-23 1025854990) GLUCOSE (test code = 98 mg/dL 70-110 2267728411) CREATININE (test code = 0.82 mg/dL 0.60-1.25 4354439842) TOTAL BILI (test code = 1.3 mg/dL 0.1-1.1 H 6573747760) CALCIUM (test code = 8.4 mg/dL 8.6-10.6 L 2055091296) T PROTEIN (test code = 6.6 g/dL 6.3-8.2 7184862697) ALBUMIN (test code = 3.7 g/dL 3.5-5.0 0481667502) ALK PHOS (test code = 81 U/L 34-122 0684422503) ALTv (test code = 51 U/L 5-50 H 2-6) AST(SGOT) (test code = 68 U/L 13-40 H 7183643976) eGFR (test code = mL/min/1.73m2 8616202413) GEORGIE (test code = GEORGIE) Association of [...] tests). Lab Interpretation Abnormal (test code = 72433-5) [facility], [id number] 09:22:14 Test Item Value Reference Range Interpretation Comments LIPASE (test code = 5253110348) 106 U/L 0-220 Lab Interpretation (test code = Normal 78702-6) [facility]inteaPTT2021-05-27 09:13:54 Test Item Value Reference Range Interpretation Comments APTT Patient (test See_Comment [Automat ed code = 3173-2) message] The system which generated this result transmitted reference range : 23 - 38 Seconds . The reference range was not used to interpr et this result as normal/abnormal . GEORGIE (test code = GEORGIE) The [facility] patient population mean normal value for aPTT is 30 seconds. Lab Interpretation Normal (test code = 91607-8) [facility]intePROTHROMBIN TIME / [id number] 09:11:53 Test Item Value Reference Range Interpretation Comments PROTIME PATIENT (test See_Comment [Auto mated message] code = 5964-2) The system [employer] generated this result transmitted ref erence range: 12.0 - 1 4.7 Seconds. The re ference range was not u sed to interpret this result as normal/abnor mal. INR (test code = 6301-6) Nor mal INR <1.1; Warfarin Therap eutic range 2.0 to 3. 0 or 2.5 to 3.5, dep ending upon the indica tions. Lab Interpretation (test Normal code = 98386-0) [facility]inteCoronavirus 2019 nCoV [id number] 08:52:00 Test Item Value Reference Range Interpretation Comments Coronavirus 2019 Negative NEGATIVE This test h as been nCoV Bedside (test authorize d by FDA under code = [id number]) an EUA for use byauthorized laboratories; This [...] and/o r diagnosis of CO VID-19 under Rlchnqp55 4(b)(1) of the Act, 21 U.S .C. 360bbb-3(b)(1), unless theauthorizatio n is terminated or r evoked sooner. DRUGS OF ABUSE [id number] 03:16:00 Test Item Value Reference Range Interpretation [...] poses (e.g employment testing). DRUGS OF ABUSE [id number] 02:47:00 Test Item Value Reference Range Interpretation [...] (test code = PHENCU) DRUGS OF ABUSE [id number] 02:38:00 Test Item Value Reference Range Interpretation [...] NEGATIVE (test code = PHENCU) BASIC METABOLIC [id number] 02:34:00 Test Item Value Reference Range Interpretation [...] 9.7 mg/dL 8.4-10.2 N CA) LIVER FUNCTION [id number] 02:34:00 Test Item Value Reference Range Interpretation [...] U/L 38-126 N (test code = ALKP) [id number] 02:34:00 Test Item Value Reference Range Interpretation Comments ACETAMINOPHEN (test code = ACET) <10 ug/mL 10-30 L [id number] 02:34:00 Test Item Value Reference Range Interpretation Comments SALICYLATE (test code < 1.0 mg/dL Negati ve <2.0 = SMITH) mg/dLTherapeuti c Range <20 mg/dL [id number] 02:34:00 Test Item Value Reference Range Interpretation Comments ALCOHOL (test code = < 10 mg/dL <10 ALC) ~~~~~~~~~~~~~~~ ~~~~~~~ ~~~~~~~~~~~~~~~ ~~~~~~~ ~~~~~~ RESU LTS ARE TO BE USED FOR MEDICAL PURPOSES ONLY.F OR LEGAL PURPOSES THE SPECIMEN MUST B E COLLECTED BY A CHAINOF CUSTODY. LEGAL TESTING IS NOT PERFORME D BY THIS FACILITY. ~~~~~~~~~~~~~~~ ~~~~~~~ ~~~~~~~~~~~~~~~ ~~~~~~~ ~~~~~~ URINALYSIS [id number] 02:27:00 Test Item Value Reference Range Interpretation [...] this result as normal/abnormal . CBC W/AUTO [id number] 02:18:00 Test Item Value Reference Range Interpretation [...] x10 3/uL 0.0-0.1 N DRUGS OF ABUSE [id number] 06:47:00 Test Item Value Reference Range Interpretation [...] non-medical pur poses (e.g employment testing). URINALYSIS [id number] 06:29:00 Test Item Value Reference Range Interpretation [...] this result as normal/abnormal . BASIC METABOLIC [id number] 03:28:00 Test Item Value Reference Range Interpretation [...] 9.0 mg/dL 8.4-10.2 N CA) LIVER FUNCTION [id number] 03:28:00 Test Item Value Reference Range Interpretation [...] U/L 38-126 N (test code = ALKP) [id number] 03:28:00 Test Item Value Reference Range Interpretation Comments ACETAMINOPHEN (test code = ACET) <10 ug/mL 10-30 L [id number] 03:28:00 Test Item Value Reference Range Interpretation Comments SALICYLATE (test code < 1.0 mg/dL Negati ve <2.0 = SMITH) mg/dLTherapeuti c Range <20 mg/dL [id number] 03:28:00 Test Item Value Reference Range Interpretation Comments ALCOHOL (test code = < 10 mg/dL <10 ALC) ~~~~~~~~~~~~~~~ ~~~~~~~ ~~~~~~~~~~~~~~~ ~~~~~~~ ~~~~~~ RESU LTS ARE TO BE USED FOR MEDICAL PURPOSES ONLY.F OR LEGAL PURPOSES THE SPECIMEN MUST B E COLLECTED BY A CHAINOF CUSTODY. LEGAL TESTING IS NOT PERFORME D BY THIS FACILITY. ~~~~~~~~~~~~~~~ ~~~~~~~ ~~~~~~~~~~~~~~~ ~~~~~~~ ~~~~~~ CBC W/AUTO [id number] 00:30:00 Test Item Value Reference Range Interpretation [...] 3/uL 0.0-0.1 N - CT C-SPINE W/O [id number] 23:37:00 Patient Name: ARLINE RAO Unit No: [id number] EXAMS: CPT CODE: [id number] CT C-SPINE W/O CONT 11714 Location: CT cervical spine, 08/29/19 TECHNIQUE: CT [...] Steward CTDI: 16.41 DLP: 366.20 Trnscrpt: 08/29/2019 (830) [email or web address] TATUM Mcarthur NAME: ARLINE RAO [address] [place] [address] PHYS: Lan [place] [address] : 1985 AGE: 33 SEX: M LOC: BBlayneERS PHONE #: [phone] EXAM DATE: 08/29/2019 STATUS: REG ER FAX #: [phone] RAD #: D/C DT PAGE 1 Signed Report Patient Name: ARLINE RAO Unit No: [id number] EXAMS: CPT CODE: [id number] CT C-SPINE W/O CONT 96174 <Continued> Orig Print D/T: S: 08/29/2019 (9150) TATUM Mcarthur NAME: ARLINE RAO [address] [place] [address] PHYS: [place] [address] : 1985 AGE: 33 SEX: M LOC: B.ERS PHONE #: [phone] EXAM DATE: 08/29/2019 STATUS: REG ER FAX #: [phone] RAD #: D/C DT PAGE 2 Signed Report- CT HEAD/BRAIN W/O [id number] 23:33:00 Patient Name: ARLINE RAO Unit No: [id number] EXAMS: CPT CODE: [id number] CT HEAD/BRAIN W/O CONT 49460 Location: CT head, 08/29/19 COMPARISON EXAMS: None [...] Steward CTDI: 45.96 DLP: 757.79 Trnscrpt: 08/29/2019 (233) Johnathan.DAS6 TATUM Mcarthur NAME: JALEN[address] PHYS: Lan [place] [address] : 1985 AGE: 33 SEX: M LOC: KarenERS PHONE #:[phone] EXAM DATE: 08/29/2019 STATUS: REG ER FAX #: [phone] RAD #: D/C DT PAGE 1 Signed Report Patient Name: ARLINE RAO Unit No: [id number] EXAMS: CPT CODE: [id number] CT HEAD/BRAIN W/O CONT 52543 <Continued> Orig Print D/T: S: 08/29/2019 (233) TATUM Mcarthur NAME: J[address]EN[address] PHYS: Lan [place] [address] : 1985 AGE: 33 SEX: M LOC: KarenERS PHONE #: [phone] EXAM DATE:08/29/2019 STATUS: REG ER FAX #: [phone] RAD #: D/C DT PAGE 2 Signed ReportCOMPREHENSIVE METABOLIC [id number] 23:28:00 Test Item Value Reference Range Interpretation [...] code = LIPINDEX) MG Index/DL CBC W/AUTO [id number] 23:07:00 Test Item Value Reference Range Interpretation [...] 0.00 K/mm3 0.00-0.05 N NRBC#) BASIC METABOLIC [id number] 14:23:00 Test Item Value Reference Range Interpretation [...] NORMAL code = LIPINDEX) Index/DL HEPATIC FUNCTION [id number] 14:23:00 Test Item Value Reference Range Interpretation [...] 68 Unit/L 45-117 N code = ALKP) [id number] 14:23:00 Test Item Value Reference Range Interpretation Comments ALCOHOL (test code = 3 MG/DL 0-10 N MEDICAL ALCOHOL RESULTS. ALC) SITE WAS PREPPE D WITH BETADINE. <10 MG/DL ARE CONSI DERED NEGATIVE. >400 MG/DL MAY BE FATAL.RESULTS F OR MEDICAL USE ONL Y. NOT TO BE USED FOR FOR ENSIC PURPOSES. BASIC METABOLIC [id number] 14:17:00 Test Item Value Reference Range Interpretation [...] 1 NORMAL = LIPINDEX) Index/DL HEPATIC FUNCTION [id number] 14:17:00 Test Item Value Reference Range Interpretation [...] TOTAL (test code Unit/L 45-117 = ALKP) [id number] 14:17:00 Test Item Value Reference Range Interpretation Comments ALCOHOL (test code = ALC) MG/DL 0-10 CBC W/O [id number] 14:04:00 Test Item Value Reference Range Interpretation [...] = 9.4 fL 7.6-10.4 N MPV) RPR [id number] 14:01:19 Test Item Value Reference Range Interpretation [...] = 12-17-2019 N Expiration Dt) Thyroid Stimulating [id number] 09:09:16 Test Item Value Reference Range Interpretation Comments TSH (test code = TSH) 0.418 mIU/mL 0.270-4.200 Lipid [id number] 08:59:32 Test Item Value Reference Range Interpretation Comments Cholesterol Total 131 mg/dL 0-200 RISK OF HE ART (test code = DISEASEPublishe d by Cholesterol Total) [employer] Giovanna lyte Optimal Borderl ine [...] LDL/HDL Ratio=L DL Calc/HDL Chol Thyroid Stimulating [id number] 10:03:42 Test Item Value Reference Range Interpretation Comments TSH (test code = TSH) 1.560 mIU/mL 0.270-4.200 Lipid [id number] 09:52:10 Test Item Value Reference Range Interpretation Comments Cholesterol Total 210 mg/dL 0-200 H RISK OF HE ART (test code = DISEASEPublishe d by Cholesterol Total) [employer] Giovanna lyte Optimal Borderl ine [...] is LDL/HDL Ratio=L DL Calc/HDL Chol RPR [id number] 11:37:43 Test Item Value Reference Range Interpretation Comments RPR Qual (test code = RPR Qual) Non-Reactive Non-Reactive Reactive Control (test code = Reactive Reactive Control) Weak Reactive Control (test Weak Reactive code = Weak Reactive Control) Non-Reactive Control (test code Non-Reactive = Non-Reactive Control) Lot # (test code = Lot #) [id number] N Expiration Dt (test code = 12-17-19 N Expiration Dt) Urinalysis [id number] 23:07:47 Test Item Value Reference Range Interpretation Comments UA WBC (test code = UA WBC) None Seen 0-5 UA RBC (test code = UA RBC) None Seen 0-5 UA Bacteria (test code = UA None Seen Bacteria) UA Squam Epithelial (test code = UA 0-5 Squam Epithelial) Comprehensive Metabolic [id number] 22:29:50 Test Item Value Reference Range Interpretation [...] A/G 1.7 ratio N Ratio) Comprehensive Metabolic [id number] 22:29:50 Test Item Value Reference Range Interpretation [...] the National Kidney Foundation, http://nkdep.ni h.gov Alcohol [id number] 22:29:50 Test Item Value Reference Range Interpretation Comments Ethanol Level (test 0.06 g/dL 0.00-0.01 H Intoxica isai 0.080 g/dL code = Ethanol or more Level) Ethanol Inst (test 58 N code = Ethanol Inst) Comprehensive Metabolic [id number] 22:29:50 Test Item Value Reference Range Interpretation [...] Foundation, http://nkdep.ni h.gov Complete Blood Count with [id number] 22:14:44 Test Item Value Reference Range Interpretation [...] code = IPF) 0 % N Automated [id number] 22:14:44 Test Item Value Reference Range Interpretation Comments Neutro Auto (test code = Neutro 72.2 % 36.0-70.0 H Auto) Lymph Auto (test code = Lymph Auto) 19.6 % 12.0-44.0 Peach Auto (test code = Peach Auto) 6.9 % 0.0-11.0 Eos, Auto (test code = Eos, Auto) 0.0 % 0.0-7.0 Basophil Auto (test code = Basophil 0.4 % 0.0-2.0 Auto) Neutro Absolute (test code = Neutro 6.1 x10 1.6-7.4 Absolute) Lymph Absolute (test code = Lymph 1.67 x10 .50-4.60 Absolute) Peach Absolute (test code = Peach .59 x10 .00-1.20 Absolute) Eos Absolute (test code = Eos 0.00 x10 0.00-0.74 Absolute) Baso Absolute (test code = Baso 0.03 x10 0.00-0.21 Absolute) IG [id number] 22:14:44 Test Item Value Reference Range Interpretation Comments IG (test code = IG) 0.9 % 0.0-5.0 IG Abs (test code = IG Abs) 0 x10 N Urine Drug [id number] 22:14:38 Test Item Value Reference Range Interpretation [...] if desired . Urinalysis with Microscopic if [id number] 21:53:48 Test Item Value Reference Range Interpretation [...] Ind?) rule GL_SJM_UA_MICRO _IN D Urine Drug [id number] 09:31:28 Test Item Value Reference Range Interpretation [...] matory test if desired . Comprehensive Metabolic [id number] 09:17:22 Test Item Value Reference Range Interpretation [...] A/G 2.1 ratio N Ratio) Comprehensive Metabolic [id number] 09:17:22 Test Item Value Reference Range Interpretation [...] National Kidney Foundation, http://nkdep.ni h.gov Comprehensive Metabolic [id number] 09:17:22 Test Item Value Reference Range Interpretation [...] the National Kidney Foundation, http://nkdep.ni h.gov IG [id number] 09:08:10 Test Item Value Reference Range Interpretation Comments IG (test code = IG) 0.4 % 0.0-5.0 IG Abs (test code = IG Abs) 0 x10 N Complete Blood Count with [id number] 09:08:09 Test Item Value Reference Range Interpretation [...] code = IPF) 0 % N Automated [id number] 09:08:09 Test Item Value Reference Range Interpretation Comments Neutro Auto (test code = Neutro 73.6 % 36.0-70.0 H Auto) Lymph Auto (test code = Lymph Auto) 17.3 % 12.0-44.0 Peach Auto (test code = Peach Auto) 8.3 % 0.0-11.0 Eos, Auto (test code = Eos, Auto) 0.1 % 0.0-7.0 Basophil Auto (test code = Basophil 0.3 % 0.0-2.0 Auto) Neutro Absolute (test code = Neutro 5.1 x10 1.6-7.4 Absolute) Lymph Absolute (test code = Lymph 1.19 x10 .50-4.60 Absolute) Peach Absolute (test code = Peach .57 x10 .00-1.20 Absolute) Eos Absolute (test code = Eos 0.01 x10 0.00-0.74 Absolute) Baso Absolute (test code = Baso 0.02 x10 0.00-0.21 Absolute) ADC / C - DRUG SCREEN [id number] 02:56:00 Test Item Value Reference Range Interpretation Comments BENZO U (test code = Negative Negative 8890649517) EARL U (test code = Negative Negative 9619811890) AMPHET (test code = Presumptive Positive Negative A 6388014292) THC (test code = Negative Negative 5123054188) METHADONE (test code = Negative Negative 0062936060) Meth U (test code = Presumptive Positive Negative A 1690759595) OPIATES (test code = Negative Negative 8620564424) Cocaine Metabolite (test Negative Negative code = 7887764682) PROPOXY (test code = Negative Negative 4923758395) Tric U (test code = Negative Negative 0417149005) PCP (test code = Negative Negative 2325671663) OXYCOD (test code = Negative Negative 1952636896) GEORGIE (test code = GEORGIE) Urine Drug [...] testing). Lab Interpretation (test Abnormal code = 14585-4) [facility] Test Item Value Reference Range Interpretation Comments ACETAMINOP (test code = <10.0 10-30 L 0817264708) GEORGIE (test code = GEORGIE) Toxic: Greater than 200 ug/mL @ 4 hour post ingestion or greater than 50 ug/mL @ 12 hour post ingestion Lab Interpretation (test Abnormal code = 61891-6) [facility] 02:40:00 Test Item Value Reference Range Interpretation Comments SALICYLATE (test code <10 mg/L = 3380775699) GEORGIE (test code = GEORGIE) Therapeutic Range:? Analgesic and Antipyretic Use? 20-100 mg/L? Anti-Inflammatory Use? 100-250 mg/LToxic Range:? Greater than 300 mg/L [facility] (ETOH) [id number] 02:40:00 Test Item Value Reference Range Interpretation Comments ALCOHOL (test code = <10 mg/dL 7699533302) GEORGIE (test code = GEORGIE) <10 Xaawnstt04-618 Toxic>100 Depression of MEDICAL SURGERY NURSE>400 Fatalities Reported [facility] (NA, K, CL, CO2, Glucose, BUN, Creatinine, CA)2018-11-05 02:35:00 Test Item Value Reference Range Interpretation Comments NA (test code = 142 mmol/L 135-145 6107469792) K (test code = 3.5 mmol/L 3.5-5 1650233038) CL (test code = 107 mmol/L 98-108 8588187806) CO2 TOTAL (test code = 25 mmol/L 23-31 4314947525) AGAP (test code = 2-16 1645390328) BUN (test code = 12 mg/dL 7-23 6000774504) GLUCOSE (test code = 90 mg/dL 70-110 0589001429) CREATININE (test code 0.77 mg/dL 0.6-1.25 = 4090189189) CALCIUM (test code = 9.3 mg/dL 8.6-10.6 0158132338) eGFR Calculation mL/min/1.73m2 (Non-) (test code = 9882781907) eGFR Calculation mL/min/1.73m2 () (test code = 0971181151) GEORGIE (test code = GEORGIE) Association of [...] or urine or abnormalities in imaging tests). [facility] Function [facility] (ALB, T.PRO, BILI T, BU/BC, ALT, AST, ALK PHOS)2018-11-05 02:35:00 Test Item Value Reference Range Interpretation Comments TOTAL BILI (test code = 5436698280) 1.0 mg/dL 0.1-1.1 BILI UNCON (test code = 2094630948) 0.8 mg/dL 0.1-1.1 BILI CONJ (test code = 7738167796) 0.0 mg/dL 0-0.3 T PROTEIN (test code = 5687497157) 7.0 g/dL 6.3-8.2 ALBUMIN (test code = 7416780896) 4.4 g/dL 3.5-5 ALK PHOS (test code = 6827400085) 71 U/L 34-122 ALT(SGPT) (test code = 1078185507) 39 U/L 9-51 AST(SGOT) (test code = 8261154241) 40 U/L 13-40 Lab Interpretation (test code = Normal 15491-3) [facility] WITH [id number] 02:10:00 Test Item Value Reference Range Interpretation Comments WBC (test code = See_Comment [Automated 5551-2) message] The sy stem which generated this result transmitted reference range : 4.20 - 10.70 10*3/?L. The reference range was not used to interpret this result as normal/abnormal . RBC (test code = See_Comment [Automated 626-8) message] The sy stem which generated this [...] RDW-SD (test code = 46.3 fL 38.5-51.6 74959-6) RDW-CV (test code = 13.1 % 12.1-15.4 788-0) PLT (test code = See_Comment [Automated 727-3) message] The sy stem which generated this result transmitted reference range : 150 - 328 10*3/ ?L. The reference r johan was not used to interpret this result as normal/abnormal . MPV (test code = 9.9 fL 9.8-13 80053-5) NRBC/100 WBC (test See_Comment [Automat ed code = 3707866012) message] The system which generated this result transmitted reference range : 0.0 - 10.0 /100 WBCs. The refer ence range was not u sed to interpret th is result as normal/abnormal . NRBC x10^3 (test code <0.01 See_Comment [Auto mated = 7722904413) message] The s ystem which generated this result transmitted reference range : 10*3/?L. The reference range was not used to interpret this result as normal/abnormal . GRAN MAT (NEUT) % 50.8 % (test code = 770-8) IMM GRAN % (test code 0.60 % = 4166740693) LYMPH % (test code = 33.8 % 736-9) MONO % (test code = 14.4 % 5905-5) EOS % (test code = 0.0 % 713-8) BASO % (test code = 0.4 % 706-2) GRAN MAT x10^3(ANC) 2.62 10*3/uL 1.99-6.95 (test code = 0552026665) IMM GRAN x10^3 (test 0.03 10*3/uL 0-0.06 code = 9777941660) LYMPH x10^3 (test code 1.74 10*3/uL 1.09-3.23 = 731-0) MONO x10^3 (test code 0.74 10*3/uL 0.36-1.02 = 742-7) EOS x10^3 (test code = <0.03 0.06-0.53 L 711-2) BASO x10^3 (test code <0.03 0.01-0.09 = 704-7) Lab Interpretation Abnormal (test code = 48182-9) [facility] Met[facility] [id number] 13:14:00 Test Item Value Reference Range Interpretation [...] validated by th e MDRD study and latosha d be interpretedwith caution.eGFR Re sult Interpretation: eGFR > or = 60 is in t he Normal RangeeGF R < 60 may mean kidney diseaseeGFR < 1 5 may mean kidney failureRange s recommended by the National Kidney Foundation,http ://nkd ep.nih.gov [id number] 13:09:00 Test Item Value Reference Range Interpretation [...] g/dL 0.00-0.01 N code = ETOHU) Urinalysis [id number] 12:59:00 Test Item Value Reference Range Interpretation Comments Color (test code = Yellow Yellow,Straw,Pl N COLOR) yellow Clarity (test code = Clear Clear N CLAR) Specific [place] (test 1.027 1.001-1.035 N code = SPGR) [...] code = Few /HPF BACT) CBC with Mxkgtssnchuw3077-38-65 12:42:00 Test Item Value Reference Range Interpretation [...] code = ALYMPH) 2.3 K/cumm 0.5-4.6 N Peach Abs (test code = AMONO) 0.6 K/cumm 0.0-1.2 N Eos Abs (test code = AEOS) 0.09 K/cumm 0.00-0.74 N Baso Abs (test code = ABASO) 0.0 K/cumm 0.00-0.21 N Hepatic Function [id number] 18:55:00 Test Item Value Reference Range Interpretation [...] = ALT) 47 U/L 1-41 H HIV [id number] 12:45:00 Test Item Value Reference Range Interpretation Comments HIV 1/2 Antibody Non-Reactive Non-Reactive N HIV1/2 Anti body screen (test code = result indicate s the HIV1/2AB) absence of HIV1 and EHW8ktmxaiofn.H owever, A Non-Reactive screen result does not [...] HIV RNA Quantit ative is recommended. RPR, [id number] 21:30:00 Test Item Value Reference Range Interpretation Comments RPR (test code = RPR) Non-Reactive Non-Reactive N Thyroid Stimulating Hormone (TSH)2017-03-17 09:55:00 Test Item Value Reference Range Interpretation Comments TSH (test code = TSH) 0.94 mIU/mL 0.270-4.200 N Lipid Grabnzh7464-80-73 09:53:00 Test Item Value Reference Range Interpretation Comments Cholesterol (test 124 mg/dL 0-200 N code = CHOL) Triglycerides (test 61 mg/dL 9-200 N code = TRIG) HDL (test code = 47 mg/dL 40-60 N HDL) Chol/HDL (test code 2.6 Ratio 0.0-5.0 N = CHOLPHDL) LDL, Calculated 65 0-130 N (NOTE)RISK O F HEART (test code = LDLC) DISEASEPu blished by [place] Heart AssociationAnal yte Optim al Boderline Increased RiskC HOL <200 200-239 >240TRI G <150 150-199 >200HDL Male: >60 <40HDL Female: >60 <50 LDL < 100 130-15 9 >160 LDL NEAR OPTIMAL IS 100- 129 VLDL (test code = 12 mg/dL 5-40 N VLDL) LDL/HDL (test code = 1 LDLPHDL) Urinalysis Gqcrgbee9433-00-02 15:09:00 Test Item Value Reference Range Interpretation Comments Color (test code = Yellow Yellow,Straw,Pl N COLOR) yellow Clarity (test code = Clear Clear N CLAR) Specific [place] (test 1.028 1.001-1.035 N code = SPGR) [...] = 0-1 Granular /HPF CASTS) Comprehensive Metabolic [id number] 14:24:00 Test Item Value Reference Range Interpretation [...] validated by th e MDRD study and emiul d be interpretedwith caution.eGFR Re sult Interpretation: eGFR > or = 60 is in t he Normal RangeeGF R < 60 may mean kidney diseaseeGFR < 1 5 may mean kidney failureRange s recommended by the National Kidney Foundation,http ://nkd ep.nih.gov [id number] 14:20:00 Test Item Value Reference Range Interpretation [...] 0.00-0.01 N code = ETOHU) CBC with Udwqnwmdlsow9018-77-80 14:08:00 Test Item Value Reference Range Interpretation [...] code = ALYMPH) 2.2 K/cumm 0.5-4.6 N Peach Abs (test code = AMONO) 0.9 K/cumm 0.0-1.2 N Eos Abs (test code = AEOS) 0.06 K/cumm 0.00-0.74 N Baso Abs (test code = ABASO) 0.0 K/cumm 0.00-0.21 N
[2021-05-28] MEDS ORDERED: NA CHLORIDE 0.9% 1,000 ML ONE (01:57)
[2021-05-28 02:05] LABS: Absolute Lymphocytes (CBC) 2.1 K/uL (0.7-4.9); Hematocrit 48.3 % (39.6-49.0); Lymphocytes % 34.6 % (15.3-44.8); MPV 7.7 fL (7.6-11.3)
[2021-05-28 02:05] LABS: Barbiturates NEGATIVE (NEGATIVE); Benzodiazepines NEGATIVE (NEGATIVE); Cocaine POSITIVE (NEGATIVE); METHAMPHETAM POSITIVE (NEGATIVE); Methadone NEGATIVE (NEGATIVE); Opiates POSITIVE (NEGATIVE); Phencyclidine NEGATIVE (NEGATIVE); THC Cannibis POSITIVE (NEGATIVE)
[2021-05-28 02:09] LABS: Protime INR 0.97
[2021-05-28 02:42] LABS: ALT/SGPT 42 U/L (12-78); AST/SGOT 21 U/L (15-37); Albumin 3.9 g/dL (3.4-5.0); Alkaline Phosphatase 86 U/L (45-117); BUN Blood Urea Nitrogen 20 mg/dL (7-18); Bicarbonate 28 mmol/L (21-32); Bilirubin Direct 0.2 mg/dL (0-0.2); Bilirubin Total 0.8 mg/dL (0.2-1.0); Glucose Level 96 mg/dL (74-106); Potassium 4.1 mmol/L (3.5-5.1); Protein, Total 7.8 g/dL (6.4-8.2); Sodium Level 139 mmol/L (136-145)
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
[2021-05-28 03:05] LABS: Urine Bacteria 20-50 /HPF (NONE SEEN)
[2021-05-28] MEDS ORDERED: CEFTRIAXONE 1000 MG/VIAL ONE (03:16)
[2021-05-28] MEDS ORDERED: NA CHLORIDE 0.9% 50 ML ONE (03:16)
[2021-05-28 11:42] VITALS: TEMP 98.3; O2SAT 100
[2021-05-28 11:45] VITALS: BP 123/84
--- NOTE | 2021-05-29 11:02 | EKG ---
Test Date: 2021-05-28 Test Time: 02:00:28 Mobile Security Architect: RASHAD MEASUREMENT RESULTS: Intervals: Rate: 105 VA: 144 QRSD: 82 QT: 326 QTc: 430 [place]: P: 30 VA: 144 QRS: 63 T: 38 INTERPRETIVE STATEMENTS: Sinus tachycardia Septal infarct, age undetermined Abnormal ECG Compared to ECG 05/17/2021 06:08:39 Myocardial infarct finding now present Electronically Signed On 05-29-21 10:57:38 CDT by Cj Anderson
== END 2021-05-28 03:32 | disposition home or self-care (01) ==
LOC: ER 01:00
DX: R42 Dizziness and giddiness (principal); T40.5X5A Adverse effect of cocaine, initial encounter; T40.2X5A Adverse effect of other opioids, initial encounter; N39.0 Urinary tract infection, site not specified; F20.9 Schizophrenia, unspecified; G82.20 Paraplegia, unspecified; Z88.5 Allergy status to narcotic agent; Z88.8 Allergy status to other drugs, medicaments and biological substances
CPT/HCPCS: 96361; 93005; 87088; 85025; 87086; 80048; 36415; 80320; 80329 ×2; 85610; 80076; 85730; 81015; 80307; 96374; 99284; J7030

== ENCOUNTER 2021-05-31 23:51 | Emergency (ER) | payer OTHER ==
--- OUTSIDE RECORDS SUMMARY | 2021-06-01 00:01 | XMS REPORT | Continuity of Care Document ---
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 [facility] CARLENE [id number] [facility] 13:33:41 12212021-03-14 Outpatient [id number] E[facility] REF [id number] E[facility] 13:33:01 1221 2021-02-11 Inpatient ATASSI, [facility] [id number] H [place] 00:00:00 [facility] 2021-01-24 [facility] [id number] [place] 07:00:09 [facility] 2021-01-22 Inpatient [facility] [id number] H arris 00:00:00 [facility] 2021-01-21 Inpatient [facility] [id number] H arris 00:00:00 [facility] 2021-01-20 Inpatient [facility] [id number] H arris 00:00:00 [facility] 2021-01-18 Inpatient [facility] [id number] H arris 00:00:00 [facility] 2021-01-17 Inpatient [facility] [id number] H [place] 00:00:00 [facility] 2021-01-16 Inpatient [facility] [id number] H arris 00:00:00 [facility] 2021-01-15 Inpatient [facility] [id number] [place] 00:00:00 [facility] 2021-01-13 Inpatient [facility] [id number] H arr[place] 00:00:00 [facility] 2021-01-12 Inpatient [facility] [id number] H arr[place] 00:00:00 [facility] 2021-01-11 Inpatient [facility] [id number] H [place] 00:00:00 [facility] 2021-01-10 Inpatient [facility] [id number] H arr[place] 00:00:00 [facility] 2021-01-09 Inpatient [facility] [id number] H arris 00:00:00 [facility] 2021-01-08 Inpatient [facility]OLD[facility]VA [facility] [id number] [place] 00:00:00 [facility] 2021-01-06 Inpatient [facility] [id number] H arris 00:00:00 [facility] 2021-01-05 [facility] [id number] [place] 00:00:00 [facility] 2021-01-04 Inpatient [facility] [id number] [place] 00:00:00 [facility] 2021-01-03 Inpatient [facility] [id number] [place] 00:00:00 [facility] 2021-01-02 Inpatient [facility] [id number] H arr[place] 00:00:00 [facility] 2020-12-30 Inpatient 1 MAREK, [facility] [id number] H [place] 22:32:00 BUSHRA Reid 2020-12-30 [facility] [id number] [place] 00:00:00 [facility] 2020-12-30 [facility] [id number] [place] 00:00:00 [facility] 2020-05-17 Inpatient HCAK[facility] [id number] [facility] 01:21:00 [id number] [facility] 2020-05-14 Inpatient HCAKW MALIKA [id number] [facility] 23:22:00 [id number] [facility] 2019-08-29 Inpatient HCACR MALIKA [id number] [facility] 22:17:00 [id number] [facility] 2019-06-22 Inpatient [facility]CA[facility] MALIKA [id number] [facility] 13:23:00 [id number] [facility] 2021-05-30 2021-05-30 Outpatient GC_[facility]_Tod PRIV PRIV [id number] [facility] 11:28:00 11:28:00 d_J [id number] [facility] 2021-05-28 2021-05-28 Outpatient GC_BAHC_Tod PRIV PRIV [id number] [facility] 01:25:00 01:25:00 d_J [id number] [facility] 2021-05-27 2021-05-27 Outpatient GC_BAHC_Tod PRIV PRIV [id number] [facility] 03:48:00 03:48:00 d_J [id number] Medica l 2021-05-24 2021-05-24 Outpatient GC_BAHC_Spa PRIV PRIV [id number] [facility] 04:32:00 04:32:00 Samuel [id number] [facility]ica 2021-05-07 2021-05-08 Outpatient X OBED [facility] [id number] [facility] 08:26:00 04:30:00 MARTIN pinto [facility] 2021-05-07 2021-05-08 Emergency Tono Roberto [facility] [id number] [facility] 08:26:00 04:30:00 [place] [id number] [facility] [id number] [facility] [id number] [address] 2021-03-28 2021-03-28 Outpatient LORENE, [facility] [id number] [place] 00:00:00 00:00:00 GALE maldonado 2021-03-20 2021-03-20 Outpatient PASCUAL MAHAN [facility] [id number] [place] 00:00:00 00:00:00 [facility] 2020-12-30 2021-02-28 Inpatient MAREK, [facility] DASHA [id number] [place] 22:32:00 18:41:00 BUSHRA Booker 2020-12-30 2021-02-28 Inpatient MAREK, [facility] DASHA [id number] [place] 22:32:00 18:41:00 BUSHRA Booker 2021-02-15 2021-02-15 Inpatient [facility] [id number] [place] 10:50:13 11:18:57 Health 2021-02-14 2021-02-14 Inpatient [facility] [id number] [place] 16:43:15 18:41:33 [facility] 2021-02-14 2021-02-14 Inpatient [facility] [id number] [place] 07:24:16 09:18:07 [facility] 2021-01-31 2021-01-31 Inpatient [facility] [id number] [place] 01:03:14 03:25:48 [facility] 2021-01-25 2021-01-25 Inpatient [facility] [id number] [place] 01:35:50 03:05:16 [facility] 2021-01-23 2021-01-23 Inpatient [facility] [id number] [place] 02:10:17 04:59:36 [facility] 2021-01-21 2021-01-21 Inpatient VIKASH, [facility] [id number] [place] 15:43:59 16:18:10 [facility] 2021-01-13 2021-01-13 Inpatient [facility] [id number] [place] 16:20:12 17:12:27 [facility] 2021-01-07 2021-01-07 Inpatient [facility] [id number] [place] 18:28:43 18:28:46 [facility] 2021-01-07 2021-01-07 Inpatient [facility] [id number] [place] 00:12:42 01:07:25 [facility] 2021-01-04 2021-01-04 Inpatient [facility] [id number] [place] 17:11:58 18:14:36 [facility] 2021-01-04 2021-01-04 Inpatient KARYN, [facility] [id number] [place] 13:40:49 15:55:44 [facility] 2021-01-03 2021-01-03 Inpatient [facility] [id number] [place] 17:58:59 17:59:03 [facility] 2021-01-01 2021-01-01 Inpatient [facility] [id number] [place] 16:44:03 16:44:07 [facility] 2021-01-01 2021-01-01 Inpatient EMMA, [facility] [id number] [place] 08:36:00 09:12:12 [facility] 2021-01-01 2021-01-01 Inpatient [facility] [id number] [place] 07:46:21 08:35:30 [facility] 2021-01-01 2021-01-01 Inpatient YULI, [facility] [id number] [place] 02:09:24 03:31:22 GRISEL [facility] 2020-12-31 2020-12-31 Inpatient MAREK, [facility] [id number] [place] 05:17:16 06:34:53 BUSHRA [facility] 2020-12-31 2020-12-31 Inpatient [facility] [id number] [place] 01:50:33 06:34:15 [facility] 2020-12-31 2020-12-31 Inpatient [facility] [id number] [place] 03:50:31 04:54:13 [facility] 2020-12-31 2020-12-31 Inpatient [facility] [id number] [place] 01:43:22 04:38:47 [facility] 2020-12-30 2020-12-30 Emergency [facility] [id number] [place] 22:46:36 23:04:47 [facility] 2020-12-30 2020-12-30 Emergency [facility] [id number] [place] 22:46:20 23:04:03 [facility] 2020-12-30 2020-12-30 Emergency [facility] [id number] [place] 22:47:41 23:03:11 [facility] 2020-12-30 2020-12-30 Emergency [facility], [facility] [id number] [place] 00:00:00 00:00:00 VÍCTOR [facility] 2020-12-20 2020-12-20 Emergency JYOTI SchroederCR [facility] [id number] [facility] 06:26:00 16:34:00 Erich 52 [facility] 2020-12-20 2020-12-20 Emergency MARINO Schroeder [facility] [id number] [facility] 06:26:00 16:34:00 Erich [id number] [facility] 2020-11-15 2020-11-16 Emergency Eusebia Bland 1.2.840 .[id number] Methodi 00:55:00 14:35:00 William Nunes 61274.1.[address] Mio Sorensen 3.430.2.7 Hospita .3.259057 l .8 2020-11-14 2020-11-14 Emergency Manju 1.2.840.1 [id number] [id number] Methodi 15:47:00 16:03:00 William Langston 84496.1.[address] 3.430.2.7 Hospit a .3.851196 l .8 2020-10-22 2020-10-24 [facility] Kingsley Dennis JimenezBlayne 1.2.840.1 [id number] Methodi 16:52:00 16:26:00 Encounter Pepito Lauren 45042.1.[address] Jessica Awad 3.430.2.7 [facility]oks .3.472070 l .8 2020-10-16 2020-10-16 Emergency EM Crismon, HCACR MALIKA [id number] [facility] 00:20:00 08:00:00 Gale [id number] Ammon [facility] 2020-10-06 2020-10-06 Emergency EM Zia, HCAKW MALIKA [id number] [facility] 01:57:00 20:14:00 Jonny-Cedric [id number] [facility] 2020-09-05 2020-09-05 Emergency EM [place], Michael [facility] MALIKA [id number] [facility] 11:17:00 18:22:00 [id number] [facility] 2020-09-03 2020-09-03 Emergency EM Pardo, [facility] MALIKA [id number] [facility] 03:35:00 15:00:00 Farhad [id number] [facility] 2020-09-02 2020-09-03 Emergency EM [place], Michael [facility] MALIKA [id number] [facility] 23:16:00 01:53:00 [id number] [facility] 2020-08-11 2020-08-12 Emergency EM Karri [facility] MALIKA [id number] [facility] 11:12:00 00:40:00 Naim [id number] [facility] 2020-07-12 2020-07-12 Emergency [facility] 1.2.119.894 [id number] [facility] 03:16:00 05:05:00 Michael Nichols [id number] [facility] [place] 4.2.7.2.686 [facility] [id number] [address] 2020-07-12 2020-07-12 Emergency [facility] 1.2.594.529 [id number] 03:16:00 05:05:00 Michael Nichols 350.1.13.[address] [place] [address] [place] [address] [id number] [facility] 2020-07-12 2020-07-12 Emergency X [facility] ERT [id number] Univers 03:16:00 03:16:00 MICHAEL pinto [facility] 2019-02-21 2019-02-21 Outpatient [facility] [id number] [place] 00:00:00 00:00:00 Health 2019-02-19 2019-02-19 Emergency [facility] TAMEKA [id number] 07:23:00 07:23:00 [facility] 2019-02-01 2019-02-01 Outpatient [facility] [id number] [address] [place] [address] 22:11:49 22:11:49 [facility] 2018-11-04 2018-11-05 Emergency [facility] [id number] [facility] 20:38:48 05:13:00 Brown Nichols 350.1.13.10 i [facility] [place] 4.2.7.2.686 [facility] [id number] [place] [address] [place] 2018-11-04 2018-11-05 Emergency [facility] 1.2.778.160 [id number] 20:38:48 05:13:00 Brown Nichols 350.1.13.10 [place] 4.2.7.2.686 [place] [id number] 2018-10-18 2018-10-18 Emergency [facility] [id number] [place] 06:08:40 06:08:40 [facility] 2017-04-02 2017-04-02 Outpatient [facility] [id number] [place] 00:00:00 00:00:00 [facility] 2017-03-29 2017-03-29 Emergency [facility] [id number] [place] 00:00:48 00:00:48 [facility] 2017-03-22 2017-03-22 Emergency E SAMANTHA, [facility] [id number] 11:46:00 11:46:00 POND [facility] 2017-03-16 2017-03-20 Inpatient E JEFF, [facility] [id number] 20:46:00 13:41:00 [facility] 2017-01-26 2017-01-26 Outpatient [facility] [id number] [facility] 00:00:00 00:00:00 Results Test Description Test Time Test Comments Results Result Comments Source TROPONIN I 2021-05-08 04:00:37 Test Item Value Reference Range Interpretation Comme nts TROPONIN I (test code = 0.000 ng/mL See_Comment [Au tomated message] The [id number]) system which ge nerated this result tra [...] biotin. Lab Interpretation Normal (test code = 73776-7) [id number] 00:46:10 Test Item Value Reference Range Interpretation Comments ESR (test code = See_Comment H [Automated message] [id number]) The system Anomo generated this result transmitted ref erence range: 0 - 10 m m/HR. The reference r johan was not used to interpret this result as normal/abnor mal. Lab Interpretation (test Abnormal code = 21094-0) [facility] (A1C)2021-05-07 20:23:40 Test Item Value Reference Range Interpretation Comments HGB A1C (test code = 5.3 % 4.0-5.7 4548-4) [place]IE (test code = [place]) Reference RangesNormal: <5.7%Prediabetes: 5.7 - 6.4%Diabetes: > 6.5% Lab Interpretation (test Normal code = 21601-8) [facility]OLIC PANEL ([id number])2021-05-07 16:11:59 Test Item Value Reference Range Interpretation Comments NA (test code = 139 mmol/L 135-145 4901077221) K (test code = 3.9 mmol/L 3.5-5.0 5837358945) CL (test code = 101 mmol/L 98-108 7661879848) CO2 TOTAL (test code = 23 mmol/L 23-31 7588638044) AGAP (test code = 2-16 9106468986) BUN (test code = 13 mg/dL 7-23 8956152708) GLUCOSE (test code = 92 mg/dL 70-110 9730368246) CREATININE (test code = 0.40 mg/dL 0.60-1.25 L 6070414105) TOTAL BILI (test code = 1.6 mg/dL 0.1-1.1 H 8646383221) CALCIUM (test code = 9.6 mg/dL 8.6-10.6 0717391894) T PROTEIN (test code = 7.7 g/dL 6.3-8.2 1561488997) ALBUMIN (test code = 4.6 g/dL 3.5-5.0 3332211124) ALK PHOS (test code = 91 U/L 34-122 8198798571) ALTv (test code = 24 U/L 5-50 1742-6) AST(SGOT) (test code = 31 U/L 13-40 4821529501) eGFR (test code = mL/min/1.73m2 3323348610) GE[place]IE (test code = GEORGIE) Association of [...] tests). Lab Interpretation Abnormal (test code = 86129-8) [facility] THRMPLAS [id number] 15:52:36 Test Item Value Reference Range Interpretation Comments APTT Patient (test See_Comment [Automat ed code = 3173-2) message] The system which generated this result transmitted reference range : 23 - 38 Seconds . The reference range was not used to interpr et this result as normal/abnormal . GEORGIE (test code = GEORGIE) The [facility] patient population mean normal value for aPTT is 30 seconds. Lab Interpretation Normal (test code = 97657-0) [facility] / [id number] 15:50:30 Test Item Value Reference Range Interpretation [...] tions. Lab Interpretation (test Normal code = 94322-1) [facility] WITH [id number] 15:42:54 Test Item Value Reference Range Interpretation Comments WBC (test code = See_Comment [Automated 5990-2) message] The sy stem which generated this result transmitted reference range : 4.20 - 10.70 10*3/?L. The reference range was not used to interpret this result as normal/abnormal . RBC (test code = See_Comment [Automated 559-8) message] The sy stem which generated this [...] RDW-SD (test code = 44.1 fL 38.5-51.6 36285-8) RDW-CV (test code = 13.3 % 12.1-15.4 788-0) PLT (test code = See_Comment [Automated 777-3) message] The sy stem which generated this result transmitted reference range : 150 - 328 10*3/ ?L. The reference r johan was not used to interpret this result as normal/abnormal . MPV (test code = 9.7 fL 9.8-13.0 L 88722-8) NRBC/100 WBC (test See_Comment [Automat ed code = 3319003245) message] The system which generated this result transmitted reference range : 0.0 - 10.0 /100 WBCs. The refer ence range was not u sed to interpret th is result as normal/abnormal . NRBC x10^3 (test code <0.01 See_Comment [Auto mated = 6753307980) message] The s ystem which generated this result transmitted reference range : 10*3/?L. The reference range was not used to interpret this result as normal/abnormal . GRAN MAT (NEUT) % 77.6 % (test code = 770-8) IMM GRAN % (test code 0.60 % = 2229658568) LYMPH % (test code = 13.7 % 736-9) MONO % (test code = 7.7 % 5905-5) EOS % (test code = 0.2 % 713-8) BASO % (test code = 0.2 % 706-2) GRAN MAT x10^3(ANC) 7.68 10*3/uL 1.99-6.95 H (test code = 9164821738) IMM GRAN x10^3 (test 0.06 10*3/uL 0.00-0.06 code = 9160495943) LYMPH x10^3 (test code 1.35 10*3/uL 1.09-3.23 = 731-0) MONO x10^3 (test code 0.76 10*3/uL 0.36-1.02 = 742-7) EOS x10^3 (test code = <0.03 0.06-0.53 L 711-2) BASO x10^3 (test code <0.03 0.01-0.09 = 704-7) Lab Interpretation Abnormal (test code = 96078-2) [facility]ville[facility]ARS-CoV-[facility] ORF1ab Resp Ql [id number]+[id number] 19:38:49 Test Item Value Reference Range Interpretation Comments Hospitalized? (test Yes code = 03727-7) ICU? (test code = No 37127-1) Symptomatic as defined No by CDC? (test code = 81855-7) Employed in No Healthcare? (test code = 34416-5) Resident in a No congregate care setting (including nursing homes, residential care for people with intellectual and developmental disabilities, psychiatric treatment facilities, group homes, board and care homes, homeless senior care, foster care or other): (test code = 84255-5) SARS-CoV-2 ORF1ab Resp NOT DETECTED Not Detected INTER PRETATION: No Ql BETY+probe (test detectabl e levels code = 55628-0) of SARS-CoV- 2 Coronavirus (COVID-19) were present [...] n with SARS-CoV-2 Coronavirus (COVID-19). COMMENT: This [employer] SARS-CoV-2 molecular diagnostic assay utilizes [employer]ology Faculty Member Mediated Amplification (TMA) technology to rapidly detect the SARS-CoV-2 (COVID-19) virus from respiratory samples. In accordance with the FDA's guidance document "Policy for Diagnostic Tests for Coronavirus Disease- 2019 during the Public Health Emergency", this test was developed, and its performance characteristics were verified by the [facility] molecular diagnostics laboratory and is authorized for clinical diagnostic use. This laboratory is certified under the Clinical Laboratory Improvement Amendments (CLIA) as qualified to perform high complexity clinical laboratory testing.SARS-CoV-2 RNA Resp Ql BETY+[id number] 22:20:00 Test Item Value Reference Range Interpretation Comments Hospitalized? (test Yes code = 09014-8) ICU? (test code = No 64027-9) Symptomatic as defined No by CDC? (test code = 18887-6) Employed in Unknown Healthcare? (test code = 50636-7) Resident in a Unknown congregate care setting (including nursing homes, residential care for people with intellectual and developmental disabilities, psychiatric treatment facilities, group homes, board and care homes, homeless senior care, foster care or other): (test code = 81788-4) SARS-CoV-2 RNA Resp Ql NOT DETECTED Not Detected INTER PRETATION: No BETY+probe (test code = detec table levels 64761-5) of SARS-CoV-2 Coronavirus (COVID-19) were present in [...] performance characteristics were verified by the [facility] molecular diagnostics laboratory and is authorized for clinical diagnostic use. This laboratory is certified under the Clinical Laboratory Improvement Amendments (CLIA) as qualified to perform high complexity clinical laboratory testing.SARS-CoV-2 ORF1ab Resp Ql BETY+[id number] 14:59:31 Test Item Value Reference Range Interpretation Comments Hospitalized? (test Yes code = 16043-2) ICU? (test code = Yes 866382-8) Symptomatic as defined No by CDC? (test code = 52066-8) Employed in No Healthcare? (test code = 75899-1) Resident in a No congregate care setting (including nursing homes, residential care for people with intellectual and developmental disabilities, psychiatric treatment facilities, group homes, board and care homes, homeless senior care, foster care or other): (test code = 87289-9) SARS-CoV-2 ORF1ab Resp NOT DETECTED Not Detected INTER PRETATION: No Ql BETY+probe (test detectabl e levels code = 04870-3) of SARS-CoV- 2 Coronavirus (COVID-19) were present [...] n with SARS-CoV-2 Coronavirus (COVID-19). COMMENT: This [employer] [employer] SARS-CoV-2 molecular diagnostic assay utilizes [employer] Member Mediated Amplification (TMA) technology to rapidly detect the SARS-CoV-2 (COVID-19) virus from respiratory samples. In accordance with the FDA's guidance document "Policy for Diagnostic Tests for Coronavirus Disease- 2019 during the Public Health Emergency", this test was developed, and its performance characteristics were verified by the [facility] molecular diagnostics laboratory and is authorized for clinical diagnostic use. This laboratory is certified under the Clinical Laboratory Improvement Amendments (CLIA) as qualified to perform high complexity clinical laboratory testing.SARS-CoV-2 RNA Resp Ql BETY+[id number] 00:53:33 Test Item Value Reference Range Interpretation Comments Hospitalized? (test code Yes = 24598-6) ICU? (test code = No 23800-4) Symptomatic as defined No by CDC? (test code = 32613-5) Employed in Healthcare? No (test code = 32100-8) Resident in a congregate No care setting (including nursing homes, residential care for people with intellectual and developmental disabilities, psychiatric treatment facilities, group homes, board and care homes, homeless senior care, foster care or other): (test code = 19259-8) ? (test [place] = No 83902-2) SARS-CoV-2 RNA Resp Ql DETECTED Not Detected A INTER PRETATION: This BETY+probe (test code = pat[place] 66236-8) detectable RNA present for the SARS-CoV-2 Coronavirus [...] performance characteristics were verified by the [facility] molecular diagnostics laboratory and is authorized [...] NONE A MUCU) DRUGS OF ABUSE SCREEN [id number] 13:19:00 Test Item Value Reference Interpretation Comments [...] this result as normal/abnormal . BASIC METABOLIC [id number] 09:24:00 Test Item Value Reference Range Interpretation [...] message] (test code = Index/DL The system [employer]) generated this result transmit isai reference range [...] this result as normal/abnormal . HEPATIC FUNCTION [id number] 09:24:00 Test Item Value Reference Range Interpretation [...] 59 Unit/L 45-117 N code = ALKP) [id number] 09:24:00 Test Item Value Reference Range Interpretation Comments ACETAMINOPHEN (test code = ACET) <2.0 mcG/ML 10.0-30.0 L [id number] 09:24:00 Test Item Value Reference Range Interpretation Comments ALCOHOL (test code = < 3 MG/DL 0-10 N MEDICAL ALCOHOL ALC) RESULTS. SITE W PREPPED WITH BE TADINE. <10 MG/DL ARE CONSIDERED NEGA TIVE. >400 MG/DL MAY BE FATAL.RESULTS F OR MEDICAL USE ONL Y. NOT TO BE USED FOR FORENSIC PURPOSES. [id number] 07:55:00 Test Item Value Reference Range Interpretation Comments SALICYLATE (test code < 1.7 MG/DL See_Comment L RESULT <2.8 IS = SMITH) CONSIDERED NEGA TIVE FOR SALICYLATE. [Automated mess age] The system [employer] generated this result transmitted ref erence range: 2.8-20.0 THER. The reference r johan was not used to interpret this result as normal/abnor mal. CBC W/AUTO [id number] 07:10:00 Test Item Value Reference Range Interpretation [...] 0.00 K/mm3 0.00-0.05 N NRBC#) ECG 12 [id number] 22:52:05 Test Item Value Reference Range Interpretation [...] available-Electronica lly Signed By Doron Judge MD ([id number]) on 11/26/2020 5:52:04 PM [facility] [id number] 07:28:23 Test Item Value Reference Range Interpretation Comments Urine culture (test SEE COMMENT Bacteriu winston screen code = 1870521) negative. [facility] METABOLIC [id number] 09:20:00 Test Item Value Reference Range Interpretation [...] message] (test code = Index/DL The system [employer]) generated this result transmit isai reference range [...] this result as normal/abnormal . Specimen comments: [facility] [id number] 09:20:00 Test Item Value Reference Range Interpretation [...] code = ALKP) Specimen comments: CCTHYROID STIMULATING [id number] 09:20:00 Test Item Value Reference Range Interpretation Comments THYROID STIMULATING HORMONE 0.619 mc IU/ML 0.340-4.820 N (test code = TSH) Specimen comments: [id number] 09:20:00 Test Item Value Reference Range Interpretation [...] change s in troponin levelscharacter istic of MO. Specimen comments: [id number] 09:20:00 Test Item Value Reference Range Interpretation Comments ACETAMINOPHEN (test code = ACET) <2.0 mcG/ML 10.0-30.0 L Specimen comments: [id number] 09:20:00 Test Item Value Reference Range Interpretation Comments ALCOHOL (test code = < 3 MG/DL 0-10 N MEDICAL ALCOHOL ALC) RESULTS. SITE W PREPPED WITH BE TADINE. <10 MG/DL ARE CONSIDERED NEGA TIVE. >400 MG/DL MAY BE FATAL.RESULTS F OR MEDICAL USE ONL Y. NOT TO BE USED FOR FORENSIC PURPOSES. Specimen comments: [id number] 08:59:00 Test Item Value Reference Range Interpretation Comments SALICYLATE (test code < 1.7 MG/DL See_Comment L RESULT <2.8 IS = SMITH) CONSIDERED NEGA TIVE FOR SALICYLATE. [Automated mess age] The system An[employer] generated this result transmitted ref erence range: 2.8-20.0 THER. The reference r johan was not used to interpret this result as normal/abnor mal. Specimen comments: CCBASI METABOLIC [id number] 08:55:00 Test Item Value Reference Range Interpretation [...] message] (test code = Index/DL The system [employer] HEM[employer]) generated this result transmit isai reference [...] this result as normal/abnormal . Specimen comments: [facility] [id number] 08:55:00 Test Item Value Reference Range Interpretation [...] code = ALKP) Specimen comments: CCTHYROID STIMULATING [id number] 08:55:00 Test Item Value Reference Range Interpretation Comments THYROID STIMULATING HORMONE 0.619 mc IU/ML 0.340-4.820 N (test code = TSH) Specimen comments: [id number] 08:55:00 Test Item Value Reference Range Interpretation [...] change s in troponin levelscharacter istic of MO. Specimen comments: [id number] 08:55:00 Test Item Value Reference Range Interpretation Comments ACETAMINOPHEN (test code = ACET) mcG/ML 10.0-30.0 Specimen comments: [id number] 08:55:00 Test Item Value Reference Range Interpretation Comments ALCOHOL (test code = < 3 MG/DL 0-10 N MEDICAL ALCOHOL ALC) RESULTS. SITE W PREPPED WITH BE TADINE. <10 MG/DL ARE CONSIDERED NEGA TIVE. >400 MG/DL MAY BE FATAL.RESULTS F OR MEDICAL USE ONL Y. NOT TO BE USED FOR FORENSIC PURPOSES. Specimen comments: CCCBC W/AUTO [id number] 08:10:00 Test Item Value Reference Range Interpretation [...] NRBC#) Specimen comments: CC- XR CHEST 1 [id number] 03:12:00 [facility] : 1985 Sex: M FAX: Mahin Smallwood MD [phone] [place]: St: [facility] FAX: Vilma Coker [phone] Patient Name: ARLINE RAO Unit No: [id number] EXAMS: CPT CODE: [id number] XR CHEST 1 V 13668 EXAM: - XR CHEST 1 V HISTORY: Chest pain. Covid positive. FINDINGS: Single AP view of the chest is provided. Heart size and vascularity are within normal limits. There is no evidence of a focal consolidation. There isno pleural effusion or pneumothorax. There is no definite acute osseous abnormality. IMPRESSION: No radiographic evidence of acute cardiopulmonary process. t 0312 Reported and signed by: Santos Bobby MD CC: Vilma BENNETT Dictated Date/Time: 10/16/2020 (311)Technologist: Dk Hale Transcribed Date/Time: 10/16/2020 (311) By: [email or web address] Orig Print D/T: S: 10/16/2020 (314) TATUM Mcarthur NAME: [address] PHYS: Vilma [place], [place] [address] : 1985 AGE: 35 SEX: M LOC: CASSANDRA PHONE #: [phone] EXAM DATE: 10/16/2020 STATUS: REG ER FAX #: [phone] RAD NO: DC Dt: PAGE 1 Signed ReportCOVID 19 Asymptomatic IH [id number] 06:58:00 Test Item Value Reference Range Interpretation Comments COVID 19 Asymptomatic IH AG (test POSITIVE Negative A code = COVNONPUIAG) BASIC METABOLIC [id number] 04:22:00 Test Item Value Reference Range Interpretation [...] 8.3 mg/dL 8.4-10.2 L CA) LIVER FUNCTION [id number] 04:22:00 Test Item Value Reference Range Interpretation [...] U/L 38-126 N (test code = ALKP) [id number] 04:22:00 Test Item Value Reference Range Interpretation Comments ALCOHOL (test code = < 10 mg/dL <10 ALC) ~~~~~~~~~~~~~~~ ~~~~~~~ ~~~~~~~~~~~~~~~ ~~~~~~~ ~~~~~~ RESU LTS ARE TO BE USED FOR MEDICAL PURPOSES ONLY.F OR LEGAL PURPOSES THE SPECIMEN MUST B E COLLECTED BY A CHAINOF CUSTODY. LEGAL TESTING IS NOT PERFORME D BY THIS FACILITY. ~~~~~~~~~~~~~~~ ~~~~~~~ ~~~~~~~~~~~~~~~ ~~~~~~~ ~~~~~~ CBC W/AUTO [id number] 04:08:00 Test Item Value Reference Range Interpretation [...] x10 3/uL 0.0-0.1 N Coronavirus 2019 nCoV [id number] 17:19:00 Test Item Value Reference Range Interpretation Comments Coronavirus 2019 nCoV Bedside (test Negative Neg code = [id number]) [id number] 13:14:00 Test Item Value Reference Range Interpretation Comments SALICYLATE (test code < 1.7 MG/DL See_Comment L RESULT <2.8 IS = SMITH) CONSIDERED NEGA TIVE FOR SALICYLATE. [Automated mess age] The system [employer] generated this result transmitted ref erence range: 2.8-20.0 THER. The reference r johan was not used to interpret this result as normal/abnor mal. BASIC METABOLIC [id number] 13:03:00 Test Item Value Reference Range Interpretation [...] message] (test code = Index/DL The system [employer]) generated this result transmit isai reference range [...] this result as normal/abnormal . HEPATIC FUNCTION [id number] 13:03:00 Test Item Value Reference Range Interpretation [...] 87 Unit/L 45-117 N code = ALKP) [id number] 13:03:00 Test Item Value Reference Range Interpretation Comments ACETAMINOPHEN (test code = ACET) <2.0 mcG/ML 10.0-30.0 L [id number] 13:03:00 Test Item Value Reference Range Interpretation Comments ALCOHOL (test code = < 3 MG/DL 0-10 N MEDICAL ALCOHOL ALC) RESULTS. SITE W PREPPED WITH BE TADINE. <10 MG/DL ARE CONSIDERED NEGA TIVE. >400 MG/DL MAY BE FATAL.RESULTS F OR MEDICAL USE ONL Y. NOT TO BE USED FOR FORENSIC PURPOSES. DRUGS OF ABUSE SCREEN [id number] 12:38:00 Test Item Value Reference Interpretation Comments [...] this result as normal/abnormal . BASIC METABOLIC [id number] 12:37:00 Test Item Value Reference Range Interpretation [...] message] (test code = Index/DL The system nao h HEMINDEX) generated this result transmit isai [...] this result as normal/abnormal . HEPATIC FUNCTION [id number] 12:37:00 Test Item Value Reference Range Interpretation [...] 87 Unit/L 45-117 N code = ALKP) [id number] 12:37:00 Test Item Value Reference Range Interpretation Comments ACETAMINOPHEN (test code = ACET) mcG/ML 10.0-30.0 [id number] 12:37:00 Test Item Value Reference Range Interpretation Comments ALCOHOL (test code = < 3 MG/DL 0-10 N MEDICAL ALCOHOL ALC) RESULTS. SITE W PREPPED WITH BE LAURENINE. <10 MG/DL ARE CONSIDERED NEGA TIVE. >400 MG/DL MAY BE FATAL.RESULTS F OR MEDICAL USE ONL Y. NOT TO BE USED FOR FORENSIC PURPOSES. CBC W/AUTO [id number] 12:02:00 Test Item Value Reference Range Interpretation [...] code = 0.00 K/mm3 0.00-0.05 N NRBC#) [id number] 23:33:00 Test Item Value Reference Range Interpretation [...] change s in troponin levelscharacter istic of MO. B-TYPE NATRIURETIC [id number] 19:24:00 Test Item Value Reference Range Interpretation Comments B-TYPE NATRIURETIC PEPTIDE < 30.00 PG/ML 0.00-100.00 N (test code = BNP) URINALYSIS [id number] 15:43:00 Test Item Value Reference Range Interpretation [...] tomated message] code = NARESH) The system [employer] h generated this result transmitted ref erence [...] a.STF.VT15 AT 08/11/20 1302DRUGS OF ABUSE SCREEN [id number] 15:43:00 Test Item Value Reference Interpretation Comments [...] a.STF.VT15 AT 08/11/20 1302DRUGS OF ABUSE SCREEN [id number] 15:43:00 Test Item Value Reference Interpretation Comments [...] HAND 3 + V LT 2020-08-11 13:43:00 [facility] : 1985 Sex: M FAX: Lan Agee MD [phone] [place]: E St: PRE Patient Name: ARLINE RAO Unit No: [id number] EXAMS: CPT CODE: [id number] XR HAND 3 + V LT [address] EXAM: - XR HAND 3 + V [...] CC: Lan Cooper MD Dictated Date/Time: 08/11/2020 (5753)Technologist: Damaris Martinez Transcribed Date/Time: 08/11/2020 (0243) By: [email or web address] Orig Print D/T: S: 08/11/2020 (7620) [facility] NAME: EDMUND RAO [address] PHYS: Lan Dykes MD [place], [place] [address] : 1985 AGE: 34 SEX: M LOC: Ernesto.BANDAR PHONE #: [phone] EXAM DATE: 08/11/2020 STATUS: PRE ER FAX #: [phone] RAD NO: DC Dt: PAGE 1 Signed Report- XR CHEST 1 [id number] 13:41:00 [facility] : 1985 Sex: M FAX: Lan Agee MD [phone] [place]: E St: PRE Patient Name: ARLINE RAO Unit No: [id number] EXAMS: CPT CODE: [id number] XR CHEST 1 V 58832 EXAM: - XR CHEST 1 V Location [...] By: [email or web address] Orig Print D/T: S: 08/11/2020 (9434) [facility]: ARLINE RAO [address] [place] [address] PHYS: Lan Mun[place], [place] [address] : 1985 AGE: 34 SEX: M LOC: B.ERS PHONE #: [phone] EXAM DATE: 08/11/2020 STATUS: PRE ER FAX #: [phone] RAD NO: DC Dt: PAGE 1 Signed ReportCOMPREHENSIVE METABOLIC [id number] 12:50:00 Test Item Value Reference Range Interpretation [...] (test code = MG Index/DL The system [employer]) generated this result transmit isai reference [...] to interpret this result as normal/abnormal . [id number] 12:50:00 Test Item Value Reference Range Interpretation [...] change s in troponin levelscharacter istic of MO. [id number] 12:50:00 Test Item Value Reference Range Interpretation Comments ACETAMINOPHEN (test code = ACET) < 2.0 mcG/ML 10.0-30.0 L [id number] 12:50:00 Test Item Value Reference Range Interpretation Comments ALCOHOL (test code = <3 MG/DL 0-10 N MEDICAL ALCOHOL RESULTS. ALC) SITE WAS PREPPE D WITH BETADINE. <10 MG/DL ARE CONSI DERED NEGATIVE. >400 MG/DL MAY BE FATAL.RESULTS F OR MEDICAL USE ONL Y. NOT TO BE USED FOR FOR ENSIC PURPOSES. [id number] 12:39:00 Test Item Value Reference Range Interpretation Comments SALICYLATE (test code 3.1 MG/DL See_Comment N [Auto mated message] = SMITH) The system [employer] generated this result transmitted ref erence range: 2.8-20.0 THER. The reference r johan was not used to interpret this result as normal/abnor mal. COMPREHENSIVE METABOLIC [id number] 12:39:00 Test Item Value Reference Range Interpretation [...] (test code = MG Index/DL The system [employer]) generated this result transmit isai reference [...] to interpret this result as normal/abnormal . [id number] 12:39:00 Test Item Value Reference Range Interpretation [...] change s in troponin levelscharacter istic of MO. [id number] 12:39:00 Test Item Value Reference Range Interpretation Comments ACETAMINOPHEN (test code = ACET) < 2.0 mcG/ML 10.0-30.0 L [id number] 12:39:00 Test Item Value Reference Range Interpretation Comments ALCOHOL (test code = ALC) MG/DL 0-10 COMPREHENSIVE METABOLIC [id number] 12:34:00 Test Item Value Reference Range Interpretation [...] (test code = MG Index/DL The system [employer]) generated this result transmit isai [...] to interpret this result as normal/abnormal . [id number] 12:34:00 Test Item Value Reference Range Interpretation Comments TROPONIN-I (test code = TROPI) NG/ML 0.000-0.045 [id number] 12:34:00 Test Item Value Reference Range Interpretation Comments ACETAMINOPHEN (test code = ACET) < 2.0 mcG/ML 10.0-30.0 L [id number] 12:34:00 Test Item Value Reference Range Interpretation Comments ALCOHOL (test code = ALC) MG/DL 0-10 CBC W/AUTO [id number] 12:23:00 Test Item Value Reference Range Interpretation [...] 0.00 K/mm3 0.00-0.05 N NRBC#) CBC WITH [id number] 09:49:19 Test Item Value Reference Range Interpretation Comments WBC (test code = See_Comment [Automated 1583-2) message] The sy stem which generated this result transmitted reference range : 4.20 - 10.70 10*3/?L. The reference range was not used to interpret this result as normal/abnormal . RBC (test code = See_Comment L [Automated 328-4) message] The sy stem which generated this [...] RDW-SD (test code = 42.9 fL 38.5-51.6 59311-6) RDW-CV (test code = 12.4 % 12.1-15.4 788-0) PLT (test code = See_Comment [Automated 777-3) message] The sy stem which generated this result transmitted reference range : 150 - 328 10*3/ ?L. The reference r johan was not used to interpret this result as normal/abnormal . MPV (test code = 9.8 fL 9.8-13.0 77998-0) NRBC/100 WBC (test See_Comment [Automat ed code = 4075529701) message] The system which generated this result transmitted reference range : 0.0 - 10.0 /100 WBCs. The refer ence range was not u sed to interpret th is result as normal/abnormal . NRBC x10^3 (test code <0.01 See_Comment [Auto mated = 0347801957) message] The s ystem which generated this result transmitted reference range : 10*3/?L. The reference range was not used to interpret this result as normal/abnormal . GRAN MAT (NEUT) % 41.9 % (test code = 770-8) IMM GRAN % (test code 0.20 % = 1739597192) LYMPH % (test code = 40.9 % 736-9) MONO % (test code = 13.7 % 5905-5) EOS % (test code = 3.1 % 713-8) BASO % (test code = 0.2 % 706-2) GRAN MAT x10^3(ANC) 1.89 10*3/uL 1.99-6.95 L (test code = 6112719449) IMM GRAN x10^3 (test <0.03 0.00-0.06 code = 7130426673) LYMPH x10^3 (test code 1.85 10*3/uL 1.09-3.23 = 731-0) MONO x10^3 (test code 0.62 10*3/uL 0.36-1.02 = 742-7) EOS x10^3 (test code = 0.14 10*3/uL 0.06-0.53 711-2) BASO x10^3 (test code <0.03 0.01-0.09 = 704-7) Lab Interpretation Abnormal (test code = 67091-8) [facility] [id number] 09:39:48 Test Item Value Reference Range Interpretation Comments TROPONIN I (test 0.002 ng/mL See_Comment [Automated code = 6987369027) message] The system which generated this result [...] ? Lab Interpretation Normal (test code = 23985-6) [facility]villeCOMP. METABOLIC PANEL (16947)2020-07-12 09:22:19 Test Item Value Reference Range Interpretation Comments NA (test code = 135 mmol/L 135-145 6982854154) K (test code = 3.6 mmol/L 3.5-5.0 1949139617) CL (test code = 103 mmol/L 98-108 5292176143) CO2 TOTAL (test code = 26 mmol/L 23-31 2942186917) AGAP (test code = 2-16 2134967393) BUN (test code = 17 mg/dL 7-23 1154526739) GLUCOSE (test code = 98 mg/dL 70-110 9246872329) CREATININE (test code = 0.82 mg/dL 0.60-1.25 1376808912) TOTAL BILI (test code = 1.3 mg/dL 0.1-1.1 H 8420517813) CALCIUM (test code = 8.4 mg/dL 8.6-10.6 L 8640272377) T PROTEIN (test code = 6.6 g/dL 6.3-8.2 5348839879) ALBUMIN (test code = 3.7 g/dL 3.5-5.0 4466219950) ALK PHOS (test code = 81 U/L 34-122 9006870033) ALTv (test code = 51 U/L 5-50 H 1742-6) AST(SGOT) (test code = 68 U/L 13-40 H 7551562538) eGFR (test code = mL/min/1.73m2 0320337832) GEORGIE (test code = GEORGIE) Association of [...] tests). Lab Interpretation Abnormal (test code = 74397-9) [facility]villeLIPASE, [id number] 09:22:14 Test Item Value Reference Range Interpretation Comments LIPASE (test code = 6146514970) 106 U/L 0-220 Lab Interpretation (test code = Normal 77214-7) [facility]villeaPTT2021-05-27 09:13:54 Test Item Value Reference Range Interpretation Comments APTT Patient (test See_Comment [Automat ed code = 3173-2) message] The system which generated this result transmitted reference range : 23 - 38 Seconds . The reference range was not used to interpr et this result as normal/abnormal . GEORGIE (test code = GEORGIE) The [facility] patient population mean normal value for aPTT is 30 seconds. Lab Interpretation Normal (test code = 88388-7) [facility] GreenvillePROTHROMBIN TIME / [id number] 09:11:53 Test Item Value Reference Range Interpretation [...] tions. Lab Interpretation (test Normal code = 08874-7) [facility]villeCoronavirus 2019 nCoV [id number] 08:52:00 Test Item Value Reference Range Interpretation Comments Coronavirus 2019 Negative NEGATIVE This test h as been nCoV Bedside (test authorize d by FDA under code = [id number]) an EUA for use byauthorized laboratories; This [...] and/o r diagnosis of CO VID-19 under Fhvvmwq70 4(b)(1) of the Act, 21 U.S .C. 360bbb-3(b)(1), unless theauthorizatio n is terminated or r evoked sooner. DRUGS OF ABUSE [id number] 03:16:00 Test Item Value Reference Range Interpretation [...] poses (e.g employment testing). DRUGS OF ABUSE [id number] 02:47:00 Test Item Value Reference Range Interpretation [...] (test code = PHENCU) DRUGS OF ABUSE [id number] 02:38:00 Test Item Value Reference Range Interpretation [...] NEGATIVE (test code = PHENCU) BASIC METABOLIC [id number] 02:34:00 Test Item Value Reference Range Interpretation [...] 9.7 mg/dL 8.4-10.2 N CA) LIVER FUNCTION [id number] 02:34:00 Test Item Value Reference Range Interpretation [...] U/L 38-126 N (test code = ALKP) [id number] 02:34:00 Test Item Value Reference Range Interpretation Comments ACETAMINOPHEN (test code = ACET) <10 ug/mL 10-30 L [id number] 02:34:00 Test Item Value Reference Range Interpretation Comments SALICYLATE (test code < 1.0 mg/dL Negati ve <2.0 = SMITH) mg/dLTherapeuti c Range <20 mg/dL [id number] 02:34:00 Test Item Value Reference Range Interpretation Comments ALCOHOL (test code = < 10 mg/dL <10 ALC) ~~~~~~~~~~~~~~~ ~~~~~~~ ~~~~~~~~~~~~~~~ ~~~~~~~ ~~~~~~ RESU LTS ARE TO BE USED FOR MEDICAL PURPOSES ONLY.F OR LEGAL PURPOSES THE SPECIMEN MUST B E COLLECTED BY A CHAINOF CUSTODY. LEGAL TESTING IS NOT PERFORME D BY THIS FACILITY. ~~~~~~~~~~~~~~~ ~~~~~~~ ~~~~~~~~~~~~~~~ ~~~~~~~ ~~~~~~ URINALYSIS [id number] 02:27:00 Test Item Value Reference Range Interpretation [...] this result as normal/abnormal . CBC W/AUTO [id number] 02:18:00 Test Item Value Reference Range Interpretation [...] x10 3/uL 0.0-0.1 N DRUGS OF ABUSE [id number] 06:47:00 Test Item Value Reference Range Interpretation [...] non-medical pur poses (e.g employment testing). URINALYSIS [id number] 06:29:00 Test Item Value Reference Range Interpretation [...] this result as normal/abnormal . BASIC METABOLIC [id number] 03:28:00 Test Item Value Reference Range Interpretation [...] 9.0 mg/dL 8.4-10.2 N CA) LIVER FUNCTION [id number] 03:28:00 Test Item Value Reference Range Interpretation [...] U/L 38-126 N (test code = ALKP) [id number] 03:28:00 Test Item Value Reference Range Interpretation Comments ACETAMINOPHEN (test code = ACET) <10 ug/mL 10-30 L [id number] 03:28:00 Test Item Value Reference Range Interpretation Comments SALICYLATE (test code < 1.0 mg/dL Negati ve <2.0 = SMITH) mg/dLTherapeuti c Range <20 mg/dL [id number] 03:28:00 Test Item Value Reference Range Interpretation Comments ALCOHOL (test code = < 10 mg/dL <10 ALC) ~~~~~~~~~~~~~~~ ~~~~~~~ ~~~~~~~~~~~~~~~ ~~~~~~~ ~~~~~~ RESU LTS ARE TO BE USED FOR MEDICAL PURPOSES ONLY.F OR LEGAL PURPOSES THE SPECIMEN MUST B E COLLECTED BY A CHAINOF CUSTODY. LEGAL TESTING IS NOT PERFORME D BY THIS FACILITY. ~~~~~~~~~~~~~~~ ~~~~~~~ ~~~~~~~~~~~~~~~ ~~~~~~~ ~~~~~~ CBC W/AUTO [id number] 00:30:00 Test Item Value Reference Range Interpretation [...] 3/uL 0.0-0.1 N - CT C-SPINE W/O [id number] 23:37:00 Patient Name: ARLINE RAO Unit No: [id number] EXAMS: CPT CODE: [id number] CT C-SPINE W/O CONT 96171 Location: CT cervical spine, 08/29/19 TECHNIQUE: CT [...] Steward CTDI: 16.41 DLP: 366.20 Trnscrpt: 08/29/2019 (5527) [email or web address] [facility] [place] NAME: ARLINE RAO [address] [place], [place] [address] PHYS: Lan Mun[place], [place] [address] : 1985 AGE: 33 SEX: M LOC: CASSANDRA PHONE #: [phone] EXAM DATE: 08/29/2019 STATUS: REG ER FAX #: [phone] RAD #: D/C DT PAGE 1 Signed Report Patient Name: ARLINE RAO Unit No: [id number] EXAMS: CPT CODE: [id number] CT C-SPINE W/O CONT 95025 <Continued> Orig Print D/T: S: 08/29/2019 (4380) TATUM Mcarthur NAME: ARLINE RAO [address] [place] [address] PHYS: Lan Munroe MD, [place] [address] : 1985 AGE: 33 SEX: M LOC: B.BANDAR PHONE #: [phone] EXAM DATE: 08/29/2019 STATUS: REG ER FAX #: [phone] RAD #: D/C DT PAGE 2 Signed Report- CT HEAD/BRAIN W/O [id number] 23:33:00 Patient Name: ARLINE RAO Unit No: [id number] EXAMS: CPT CODE: [id number] CT HEAD/BRAIN W/O CONT 24232 Location: CT head, 08/29/19 COMPARISON EXAMS: None [...] CTDI: 45.96 DLP: 757.79 Trnscrpt: 08/29/2019 (2333) HeatherDAS6 TATUM Mcarthur NAME: ARLINE RAO [address] [place] [address] PHYS: [place] [address] : 1985 AGE: 33 SEX: M LOC: KarenERS PHONE #:[phone] EXAM DATE: 08/29/2019 STATUS: REG ER FAX #: [phone] RAD #: D/C DT PAGE 1 Signed Report Patient Name: ARLINE RAO Unit No: [id number] EXAMS: CPT CODE: [id number] CT HEAD/BRAIN W/O CONT 84622 <Continued> Orig Print D/T: S: 08/29/2019 (2336) TATUM Crisostomoe NAME: ARLINE RAO [address] [place] [address] PHYS: [place] [address] : 1985 AGE: 33 SEX: M LOC: KarenERS PHONE #: [phone] EXAM DATE:08/29/2019 STATUS: REG ER FAX #: [phone] RAD #: D/C DT PAGE 2 Signed ReportCOMPREHENSIVE METABOLIC [id number] 23:28:00 Test Item Value Reference Range Interpretation [...] code = LIPINDEX) MG Index/DL CBC W/AUTO [id number] 23:07:00 Test Item Value Reference Range Interpretation [...] 0.00 K/mm3 0.00-0.05 N NRBC#) BASIC METABOLIC [id number] 14:23:00 Test Item Value Reference Range Interpretation [...] NORMAL code = LIPINDEX) Index/DL HEPATIC FUNCTION [id number] 14:23:00 Test Item Value Reference Range Interpretation [...] 68 Unit/L 45-117 N code = ALKP) [id number] 14:23:00 Test Item Value Reference Range Interpretation Comments ALCOHOL (test code = 3 MG/DL 0-10 N MEDICAL ALCOHOL RESULTS. ALC) SITE WAS PREPPE D WITH BETADINE. <10 MG/DL ARE CONSI DERED NEGATIVE. >400 MG/DL MAY BE FATAL.RESULTS F OR MEDICAL USE ONL Y. NOT TO BE USED FOR FOR ENSIC PURPOSES. BASIC METABOLIC [id number] 14:17:00 Test Item Value Reference Range Interpretation [...] 1 NORMAL = LIPINDEX) Index/DL HEPATIC FUNCTION [id number] 14:17:00 Test Item Value Reference Range Interpretation [...] TOTAL (test code Unit/L 45-117 = ALKP) [id number] 14:17:00 Test Item Value Reference Range Interpretation Comments ALCOHOL (test code = ALC) MG/DL 0-10 CBC W/O [id number] 14:04:00 Test Item Value Reference Range Interpretation [...] = 9.4 fL 7.6-10.4 N MPV) RPR [id number] 14:01:19 Test Item Value Reference Range Interpretation [...] = 12-17-2019 N Expiration Dt) Thyroid Stimulating [id number] 09:09:16 Test Item Value Reference Range Interpretation Comments TSH (test code = TSH) 0.418 mIU/mL 0.270-4.200 Lipid [id number] 08:59:32 Test Item Value Reference Range Interpretation Comments Cholesterol Total 131 mg/dL 0-200 RISK OF HE ART (test code = DISEASEPublishe d by Cholesterol Total) [employer] Gioavnna lyte Optimal Borderl ine Increased RiskC HOL [...] being used code = LDL/HDL Ratio) in [facility] calculation is LDL/HDL Ratio=L DL Calc/HDL Chol Thyroid Stimulating [id number] 10:03:42 Test Item Value Reference Range Interpretation Comments TSH (test code = TSH) 1.560 mIU/mL 0.270-4.200 Lipid Zaelt3932-22-03 09:52:10 Test Item Value Reference Range Interpretation Comments Cholesterol Total 210 mg/dL 0-200 H RISK OF HE ART (test code = DISEASEPublishe d by Cholesterol Total) [employer] Giovanna lyte Optimal Borderl ine [...] being used code = LDL/HDL Ratio) in [facility] calculation is LDL/HDL Ratio=L DL Calc/HDL Chol RPR [id number] 11:37:43 Test Item Value Reference Range Interpretation Comments RPR Qual (test code = RPR Qual) Non-Reactive Non-Reactive Reactive Control (test code = Reactive Reactive Control) Weak Reactive Control (test Weak Reactive code = Weak Reactive Control) Non-Reactive Control (test code Non-Reactive = Non-Reactive Control) Lot # (test code = Lot #) [id number] N Expiration Dt (test code = 10-31-20 N Expiration Dt) Urinalysis [id number] 23:07:47 Test Item Value Reference Range Interpretation Comments UA WBC (test code = UA WBC) None Seen 0-5 UA RBC (test code = UA RBC) None Seen 0-5 UA Bacteria (test code = UA None Seen Bacteria) UA Squam Epithelial (test code = UA 0-5 Squam Epithelial) Comprehensive Metabolic [id number] 22:29:50 Test Item Value Reference Range Interpretation [...] A/G 1.7 ratio N Ratio) Comprehensive Metabolic [id number] 22:29:50 Test Item Value Reference Range Interpretation [...] the National Kidney Foundation, http://nkdep.ni h.gov Alcohol Esttw9974-01-35 22:29:50 Test Item Value Reference Range Interpretation Comments Ethanol Level (test 0.06 g/dL 0.00-0.01 H Intoxica isai 0.080 g/dL code = Ethanol or more Level) Ethanol Inst (test 58 N code = Ethanol Inst) Comprehensive Metabolic [id number] 22:29:50 Test Item Value Reference Range Interpretation [...] e have not been validated by [facility] MDRD study and should be interpreted [...] e have not been validated by [facility] MDRD study and should be interpreted wit h caution. eGFR R esult Interpretation: eGFR > or = 60 is in the Normal RangeeGF R < 60 may mean kid tran diseaseeGFR < 1 5 may mean kidney failure Rang es recommended by the National Kidney Foundation, http://nkdep.ni h.gov Complete Blood Count with Zipmjrewqkcb0988-78-60 22:14:44 Test Item Value Reference Range Interpretation [...] code = IPF) 0 % N Automated Bzqojwmsydqf0935-47-49 22:14:44 Test Item Value Reference Range Interpretation Comments Neutro Auto (test code = Neutro 72.2 % 36.0-70.0 H Auto) Lymph Auto (test code = Lymph Auto) 19.6 % 12.0-44.0 Roosevelt Auto (test code = Roosevelt Auto) 6.9 % 0.0-11.0 Eos, Auto (test code = Eos, Auto) 0.0 % 0.0-7.0 Basophil Auto (test code = Basophil 0.4 % 0.0-2.0 Auto) Neutro Absolute (test code = Neutro 6.1 x10 1.6-7.4 Absolute) Lymph Absolute (test code = Lymph 1.67 x10 .50-4.60 Absolute) Roosevelt Absolute (test code = Roosevelt .59 x10 .00-1.20 Absolute) Eos Absolute (test code = Eos 0.00 x10 0.00-0.74 Absolute) Baso Absolute (test code = Baso 0.03 x10 0.00-0.21 Absolute) IG [id number] 22:14:44 Test Item Value Reference Range Interpretation Comments IG (test code = IG) 0.9 % 0.0-5.0 IG Abs (test code = IG Abs) 0 x10 N Urine Drug [id number] 22:14:38 Test Item Value Reference Range Interpretation [...] if desired . Urinalysis with Microscopic if qnawanrsr0692-05-30 21:53:48 Test Item Value Reference Range Interpretation [...] Ind?) rule GL_SJM_UA_MICRO _IN D Urine Drug Oekyoi2830-97-93 09:31:28 Test Item Value Reference Range Interpretation [...] matory test if desired . Comprehensive Metabolic Omabp2432-10-67 09:17:22 Test Item Value Reference Range Interpretation [...] A/G 2.1 ratio N Ratio) Comprehensive Metabolic [id number] 09:17:22 Test Item Value Reference Range Interpretation [...] not provided, and t he patient is femdustin le, multiply by 0.7 42. Results for [...] National Kidney Foundation, http://nkdep.ni h.gov Comprehensive Metabolic Iyzee5362-14-14 09:17:22 Test Item Value Reference Range Interpretation [...] e have not been validated by [facility] MDRD study and should be interpreted [...] e have not been validated by [facility] MDRD study and should be interpreted wit h caution. eGFR R esult Interpretation: eGFR > or = 60 is in the Normal RangeeGF R < 60 may mean kid tran diseaseeGFR < 1 5 may mean kidney failure Rang es recommended by the National Kidney Foundation, http://nkdep.ni h.gov IG Reccd9338-73-80 09:08:10 Test Item Value Reference Range Interpretation Comments IG (test code = IG) 0.4 % 0.0-5.0 IG Abs (test code = IG Abs) 0 x10 N Complete Blood Count with Kestbbmypyid6209-28-62 09:08:09 Test Item Value Reference Range Interpretation [...] code = IPF) 0 % N Automated Kvggkxqvawcd9852-92-82 09:08:09 Test Item Value Reference Range Interpretation Comments Neutro Auto (test code = Neutro 73.6 % 36.0-70.0 H Auto) Lymph Auto (test code = Lymph Auto) 17.3 % 12.0-44.0 Roosevelt Auto (test code = Roosevelt Auto) 8.3 % 0.0-11.0 Eos, Auto (test code = Eos, Auto) 0.1 % 0.0-7.0 Basophil Auto (test code = Basophil 0.3 % 0.0-2.0 Auto) Neutro Absolute (test code = Neutro 5.1 x10 1.6-7.4 Absolute) Lymph Absolute (test code = Lymph 1.19 x10 .50-4.60 Absolute) Roosevelt Absolute (test code = Roosevelt .57 x10 .00-1.20 Absolute) Eos Absolute (test code = Eos 0.01 x10 0.00-0.74 Absolute) Baso Absolute (test code = Baso 0.02 x10 0.00-0.21 Absolute) [facility] - DRUG SCREEN [id number] 02:56:00 Test Item Value Reference Range Interpretation Comments BENZO U (test code = Negative Negative 4731401486) EARL U (test code = Negative Negative 1613964057) AMPHET (test code = Presumptive Positive Negative A 3977806170) THC (test code = Negative Negative 6361372517) METHADONE (test code = Negative Negative 5703938922) Meth U (test code = Presumptive Positive Negative A 2340803687) OPIATES (test code = Negative Negative 4218383326) Cocaine Metabolite (test Negative Negative code = 4001750500) PROPOXY (test code = Negative Negative 6893813568) Tric U (test code = Negative Negative 1126528861) PCP (test code = Negative Negative 3545389927) OXYCOD (test code = Negative Negative 0884689222) GEORGIE (test code = GEORGIE) Urine Drug [...] testing). Lab Interpretation (test Abnormal code = 33028-1) [facility] Test Item Value Reference Range Interpretation Comments ACETAMINOP (test code = <10.0 10-30 L 8540288174) GEORGIE (test code = GEORGIE) Toxic: Greater than 200 ug/mL @ 4 hour post ingestion or greater than 50 ug/mL @ 12 hour post ingestion Lab Interpretation (test Abnormal code = 53080-0) [facility]ville[facility] 02:40:00 Test Item Value Reference Range Interpretation Comments SALICYLATE (test code <10 mg/L = 2226857065) GEORGIE (test code = GEORGIE) Therapeutic Range:? Analgesic and Antipyretic Use? 20-100 mg/L? Anti-Inflammatory Use? 100-250 mg/LToxic Range:? Greater than 300 mg/L [facility]ville[facility] (ETOH) [id number] 02:40:00 Test Item Value Reference Range Interpretation Comments ALCOHOL (test code = <10 mg/dL 5324184052) GEORGIE (test code = GEORGIE) <10 Dojxkhcw41-593 Toxic>100 Depression of COSMETIC SALES ADVISOR>400 Fatalities Reported [facility]ville[facility] (NA, K, CL, CO2, Glucose, BUN, Creatinine, CA)2018-11-05 02:35:00 Test Item Value Reference Range Interpretation Comments NA (test code = 142 mmol/L 135-145 9037889919) K (test code = 3.5 mmol/L 3.5-5 3031328120) CL (test code = 107 mmol/L 98-108 1181936386) CO2 TOTAL (test code = 25 mmol/L 23-31 5525848653) AGAP (test code = 2-16 0352404300) BUN (test code = 12 mg/dL 7-23 6969806948) GLUCOSE (test code = 90 mg/dL 70-110 8935304137) CREATININE (test code 0.77 mg/dL 0.6-1.25 = 7861745387) CALCIUM (test code = 9.3 mg/dL 8.6-10.6 1668711408) eGFR Calculation mL/min/1.73m2 (Non-) (test code = 7049003250) eGFR Calculation mL/min/1.73m2 () (test code = 7390880264) GEORGIE (test code = GEORGIE) Association of [...] or urine or abnormalities in imaging tests). [facility]ville[facility] Function [facility] (ALB, T.PRO, BILI T, BU/BC, ALT, AST, ALK PHOS)2018-11-05 02:35:00 Test Item Value Reference Range Interpretation Comments TOTAL BILI (test code = 8985841781) 1.0 mg/dL 0.1-1.1 BILI UNCON (test code = 8008009060) 0.8 mg/dL 0.1-1.1 BILI CONJ (test code = 1940737514) 0.0 mg/dL 0-0.3 T PROTEIN (test code = 2492319861) 7.0 g/dL 6.3-8.2 ALBUMIN (test code = 4613444010) 4.4 g/dL 3.5-5 ALK PHOS (test code = 8382289963) 71 U/L 34-122 ALT(SGPT) (test code = 1044477205) 39 U/L 9-51 AST(SGOT) (test code = 2042957883) 40 U/L 13-40 Lab Interpretation (test code = Normal 01310-4) [facility]villeCB WITH [id number] 02:10:00 Test Item Value Reference Range Interpretation Comments WBC (test code = See_Comment [Automated 8152-2) message] The sy stem which generated this result transmitted reference range : 4.20 - 10.70 10*3/?L. The reference range was not used to interpret this result as normal/abnormal . RBC (test code = See_Comment [Automated 669-2) message] The sy stem which generated this [...] RDW-SD (test code = 46.3 fL 38.5-51.6 04708-0) RDW-CV (test code = 13.1 % 12.1-15.4 788-0) PLT (test code = See_Comment [Automated 777-3) message] The sy stem which generated this result transmitted reference range : 150 - 328 10*3/ ?L. The reference r johan was not used to interpret this result as normal/abnormal . MPV (test code = 9.9 fL 9.8-13 30405-4) NRBC/100 WBC (test See_Comment [Automat ed code = 1898778873) message] The system which generated this result transmitted reference range : 0.0 - 10.0 /100 WBCs. The refer ence range was not u sed to interpret th is result as normal/abnormal . NRBC x10^3 (test code <0.01 See_Comment [Auto mated = 0185343263) message] The s ystem which generated this result transmitted reference range : 10*3/?L. The reference range was not used to interpret this result as normal/abnormal . GRAN MAT (NEUT) % 50.8 % (test code = 770-8) IMM GRAN % (test code 0.60 % = 6225825063) LYMPH % (test code = 33.8 % 736-9) MONO % (test code = 14.4 % 5905-5) EOS % (test code = 0.0 % 713-8) BASO % (test code = 0.4 % 706-2) GRAN MAT x10^3(ANC) 2.62 10*3/uL 1.99-6.95 (test code = 6526768077) IMM GRAN x10^3 (test 0.03 10*3/uL 0-0.06 code = 7651962679) LYMPH x10^3 (test code 1.74 10*3/uL 1.09-3.23 = 731-0) MONO x10^3 (test code 0.74 10*3/uL 0.36-1.02 = 742-7) EOS x10^3 (test code = <0.03 0.06-0.53 L 711-2) BASO x10^3 (test code <0.03 0.01-0.09 = 704-7) Lab Interpretation Abnormal (test code = 66970-1) [facility]ville[facility] Metabolic Hggto1249-48-73 13:14:00 Test Item Value Reference Range Interpretation [...] by the National Kidney Foundation,http ://nkd ep.nih.gov [id number] 13:09:00 Test Item Value Reference Range Interpretation [...] g/dL 0.00-0.01 N code = ETOHU) Urinalysis Vckmtpmk4848-91-82 12:59:00 Test Item Value Reference Range Interpretation Comments Color (test code = Yellow Yellow,Straw,Pl N COLOR) yellow Clarity (test code = Clear Clear N CLAR) Specific [place] (test 1.027 1.001-1.035 N code = SPGR) [...] code = Few /HPF BACT) CBC with Kfbgwwhuknix7171-74-98 12:42:00 Test Item Value Reference Range Interpretation [...] code = ALYMPH) 2.3 K/cumm 0.5-4.6 N Roosevelt Abs (test code = AMONO) 0.6 K/cumm 0.0-1.2 N Eos Abs (test code = AEOS) 0.09 K/cumm 0.00-0.74 N Baso Abs (test code = ABASO) 0.0 K/cumm 0.00-0.21 N Hepatic Function Ietux1393-17-14 18:55:00 Test Item Value Reference Range Interpretation [...] = ALT) 47 U/L 1-41 H HIV Jckhz7708-01-09 12:45:00 Test Item Value Reference Range Interpretation Comments HIV 1/2 Antibody Non-Reactive Non-Reactive N HIV1/2 Anti body screen (test code = result indicate s the HIV1/2AB) absence of HIV1 and CVQ7uphkbtusm.H owever, A Non-Reactive screen result does not [...] HIV RNA Quantit ative is recommended. RPR, Vrre2364-34-96 21:30:00 Test Item Value Reference Range Interpretation Comments RPR (test code = RPR) Non-Reactive Non-Reactive N Thyroid Stimulating Hormone (TSH)2017-03-17 09:55:00 Test Item Value Reference Range Interpretation Comments TSH (test code = TSH) 0.94 mIU/mL 0.270-4.200 N Lipid Oyncddp6783-00-51 09:53:00 Test Item Value Reference Range Interpretation Comments Cholesterol (test 124 mg/dL 0-200 N code = CHOL) Triglycerides (test 61 mg/dL 9-200 N code = TRIG) HDL (test code = 47 mg/dL 40-60 N HDL) Chol/HDL (test code 2.6 Ratio 0.0-5.0 N = CHOLPHDL) LDL, Calculated 65 0-130 N (NOTE)RISK O F HEART (test code = LDLC) DISEASEPu blished by [place] Heart AssociationAnal yte Optim al Boderline Increased RiskC HOL <200 200-239 >240TRI G <150 150-199 >200HDL Male: >60 <40HDL Female: >60 <50 LDL < 100 130-15 9 >160 LDL NEAR OPTIMAL IS 100- 129 VLDL (test code = 12 mg/dL 5-40 N VLDL) LDL/HDL (test code = 1 LDLPHDL) Urinalysis Hoculjsa6790-14-94 15:09:00 Test Item Value Reference Range Interpretation Comments Color (test code = Yellow Yellow,Straw,Pl N COLOR) yellow Clarity (test code = Clear Clear N CLAR) Specific [place] (test 1.028 1.001-1.035 N code = SPGR) [...] = 0-1 Granular /HPF CASTS) Comprehensive Metabolic Pygzt1768-09-09 14:24:00 Test Item Value Reference Range Interpretation [...] by the National Kidney Foundation,http ://nkd ep.nih.gov [id number] 14:20:00 Test Item Value Reference Range Interpretation [...] 0.00-0.01 N code = ETOHU) CBC with Wzjoeowjrkpg1503-92-00 14:08:00 Test Item Value Reference Range Interpretation [...] code = ALYMPH) 2.2 K/cumm 0.5-4.6 N Roosevelt Abs (test code = AMONO) 0.9 K/cumm 0.0-1.2 N Eos Abs (test code = AEOS) 0.06 K/cumm 0.00-0.74 N Baso Abs (test code = ABASO) 0.0 K/cumm 0.00-0.21 N
[2021-06-01 00:52] LABS: Absolute Lymphocytes (CBC) 1.4 K/uL (0.7-4.9); Hematocrit 45.7 % (39.6-49.0); Lymphocytes % 25.9 % (15.3-44.8); MPV 7.7 fL (7.6-11.3); RBC Red Blood Cell Count 4.87 M/uL (4.33-5.43)
[2021-06-01 01:20] LABS: ALT/SGPT 35 U/L (12-78); AST/SGOT 24 U/L (15-37); Albumin 3.7 g/dL (3.4-5.0); Alkaline Phosphatase 78 U/L (45-117); BUN Blood Urea Nitrogen 13 mg/dL (7-18); Bicarbonate 28 mmol/L (21-32); Bilirubin Direct 0.2 mg/dL (0-0.2); Bilirubin Total 0.7 mg/dL (0.2-1.0); Glucose Level 82 mg/dL (74-106); Potassium 3.9 mmol/L (3.5-5.1); Protein, Total 7.4 g/dL (6.4-8.2); Sodium Level 138 mmol/L (136-145)
[2021-06-01 01:53] LABS: SARS-COV-2 RT PCR NEGATIVE (NEGATIVE)
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
[2021-06-01] MEDS ORDERED: HYDROCODONE/APAP 5/325 MG TAB ONE ×2 (02:19→23:17)
[2021-06-01 05:00] LABS: Barbiturates NEGATIVE (NEGATIVE); Benzodiazepines NEGATIVE (NEGATIVE); Cocaine NEGATIVE (NEGATIVE); METHAMPHETAM POSITIVE (NEGATIVE); Methadone NEGATIVE (NEGATIVE); Opiates POSITIVE (NEGATIVE); Phencyclidine NEGATIVE (NEGATIVE); THC Cannibis POSITIVE (NEGATIVE)
[2021-06-01 05:02] LABS: Urine Blood Trace-intact (Negative); Urine Glucose Negative (Negative); Urine Protein Negative (Negative); Urine Specific Gravity >=1.030 (1.005-1.030); Urine pH 5.5 (5.0-7.0)
[2021-06-01] MEDS ORDERED: ONDANSETRON 4 MG (ODT) TAB ONE ×2 (08:21→08:22)
[2021-06-01] MEDS ORDERED: MAGNESIUM HYDROXIDE 8% 30 ML ONE (23:17)
[2021-06-02] MEDS ORDERED: CIPROFLOXACIN HCL 500 MG TAB ONE ×2 (11:01→22:20)
[2021-06-02] MEDS ORDERED: PREGABALIN 75 MG CAP PO ONE (11:02)
[2021-06-02] MEDS ORDERED: HYDROCODONE/APAP 5/325 MG TAB ONE ×2 (11:02→22:21)
[2021-06-02] MEDS ORDERED: CYCLOBENZAPRINE 10 MG TAB ONE ×2 (11:02→22:20)
[2021-06-02] MEDS ORDERED: GABAPENTIN 300 MG CAP ONE ×2 (11:03→22:21)
[2021-06-02] MEDS ORDERED: LACTULOSE 20 GM/30 ML UCUP ONE (11:03)
[2021-06-02] MEDS ORDERED: GABAPENTIN 300 MG CAP PO ONE (12:00)
[2021-06-02] MEDS ORDERED: NICOTINE 7 MG/PAT TD ONE (12:00)
[2021-06-02] MEDS ORDERED: GABAPENTIN 100 MG CAP PO ONE (12:00)
[2021-06-02] MEDS ORDERED: DOCUSATE NA 100 MG CAP PO ONE (12:00)
[2021-06-02] MEDS ORDERED: GLYCERIN PEDI RECTAL SUPP PR ONE (15:15)
[2021-06-02] MEDS ORDERED: MELATONIN 5 MG TABLET PO ONE (22:21)
[2021-06-02] MEDS ORDERED: METOPROLOL TAR 25 MG TAB ONE (22:22)
[2021-06-03] MEDS ORDERED: PREGABALIN 75 MG CAP PO ONE (09:03)
[2021-06-03] MEDS ORDERED: HYDROCODONE/APAP 5/325 MG TAB ONE ×2 (09:03→16:52)
[2021-06-03] MEDS ORDERED: CYCLOBENZAPRINE 10 MG TAB ONE (09:03)
[2021-06-03] MEDS ORDERED: ZINC SULFATE 220 MG CAP ONE (09:04)
[2021-06-03] MEDS ORDERED: GABAPENTIN 300 MG CAP ONE (09:04)
[2021-06-03] MEDS ORDERED: METOPROLOL TAR 25 MG TAB ONE (09:04)
[2021-06-03] MEDS ORDERED: LACTULOSE 20 GM/30 ML UCUP ONE (09:04)
[2021-06-03] MEDS ORDERED: ARIPiprazole 5 MG TAB ONE (09:04)
[2021-06-03] MEDS ORDERED: DOCUSATE NA 100 MG CAP PO ONE (09:06)
[2021-06-04 01:18] VITALS: TEMP 97.7; O2SAT 97
[2021-06-04 01:19] VITALS: BP 111/78
== END 2021-06-03 19:30 | disposition home or self-care (01) ==
LOC: ER 23:51
DX: F41.8 Other specified anxiety disorders (principal); F31.9 Bipolar disorder, unspecified; F20.9 Schizophrenia, unspecified; F17.210 Nicotine dependence, cigarettes, uncomplicated
CPT/HCPCS: 80307; 84484; 93005; 99284

== ENCOUNTER 2021-06-10 20:06 | Emergency (ER) | payer OTHER ==
--- OUTSIDE RECORDS SUMMARY | 2021-06-10 20:15 | XMS REPORT | Continuity of Care Document ---
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 [facility] [id number] [place] 00:00:00 [facility] 2021-01-06 Inpatient [facility] [id number] H arris 00:00:00 [facility] 2021-01-05 Inpatient YULI, [facility] [id number] [place] 00:00:00 [facility] 2021-01-04 Inpatient YULI, [facility] [id number] [place] 00:00:00 [facility] 2021-01-03 Inpatient YULI, [facility] [id number] [place] 00:00:00 [facility] 2021-01-02 Inpatient [facility] [id number] H arris 00:00:00 [facility] 2020-12-30 Inpatient 1 MAREK, [facility] [id number] H arris 22:32:00 BUSHRA Reid 2020-12-30 Inpatient PAULSON, [facility] [id number] [place] 00:00:00 [facility] 2020-12-30 [facility] [id number] [place] 00:00:00 [facility] 2020-05-17 Inpatient HCAKW MALIKA [id number] [facility] 01:21:00 [id number] [facility] 2020-05-14 Inpatient HCAKW MALIKA [id number] [facility] 23:22:00 [id number] [facility] 2019-08-29 Inpatient HCACR MALIKA [id number] [facility] 22:17:00 [id number] [facility] 2019-06-22 Inpatient HCACR MALIAK [id number] [facility] 13:23:00 [id number] [facility] 2021-06-06 2021-06-06 Outpatient GC_BA[facility]_Tod PRIV PRIV [id number] [facility] 01:01:00 01:01:00 d_J [id number] Medica l 2021-06-05 2021-06-05 Outpatient GC_BAHC_Tod PRIV PRIV [id number] [facility] 03:19:00 03:19:00 d_J [id number] Medica l 2021-06-04 2021-06-04 Outpatient GC_BAHC_Tod PRIV PRIV [id number] [facility] 01:42:00 01:42:00 d_J [id number] Medica l 2021-05-30 2021-05-30 Outpatient GC_BAHC_Tod PRIV PRIV [id number] [facility] 11:28:00 11:28:00 d_J [id number] Medica l 2021-05-28 2021-05-28 Outpatient GC_BAHC_Tod PRIV PRIV [id number] [facility] 01:25:00 01:25:00 d_J [id number] Medica l 2021-05-27 2021-05-27 Outpatient GC_BAHC_Tod PRIV PRIV [id number] [facility] 03:48:00 03:48:00 d_J [id number] Medica l 2021-05-24 2021-05-24 Outpatient GC_BAHC_Spa PRIV PRIV [id number] [facility] 04:32:00 04:32:00 Samuel [id number] Medica l 2021-05-07 2021-05-08 Outpatient X OBED [facility] [id number] [facility] 08:26:00 04:30:00 MARTIN pinto [facility] 2021-05-07 2021-05-08 Emergency Tono Roberto [facility] [id number]. [id number] Univers 08:26:00 04:30:00 Martin Clay [facility] 350.1.13.10 [facility] 4.2.7.2.686 [facility] [id number] [address] 2021-03-28 2021-03-28 Outpatient LORENE [facility] [id number] [place] 00:00:00 00:00:00 GALE maldonado 2021-03-20 2021-03-20 Outpatient PASCUAL MAHAN [facility] [id number] [place] 00:00:00 00:00:00 [facility] 2020-12-30 2021-02-28 Inpatient MAREK, [facility] [id number] [place] 22:32:00 18:41:00 BUSHRA Booker 2020-12-30 2021-02-28 Inpatient MAREK, [facility] [id number] [place] 22:32:00 18:41:00 BUSHRA Heal 2021-02-15 2021-02-15 Inpatient [facility] [id number] [place] 10:50:13 11:18:57 Health 2021-02-14 2021-02-14 Inpatient [facility] [id number] [place] 16:43:15 18:41:33 Health 2021-02-14 2021-02-14 Inpatient [facility] [id number] [place] 07:24:16 09:18:07 Health 2021-01-31 2021-01-31 Inpatient [facility] [id number] [place] 01:03:14 03:25:48 Health 2021-01-25 2021-01-25 Inpatient [facility] [id number] [place] 01:35:50 03:05:16 [facility] 2021-01-23 2021-01-23 Inpatient [facility] [id number] [place] 02:10:17 04:59:36 Health 2021-01-21 2021-01-21 Inpatient VIKASH, [facility] [id number] [place] 15:43:59 16:18:10 [facility] 2021-01-13 2021-01-13 Inpatient [facility] [id number] [place] 16:20:12 17:12:27 Health 2021-01-07 2021-01-07 Inpatient [facility] [id number] [place] 18:28:43 18:28:46 Health 2021-01-07 2021-01-07 Inpatient [facility] [id number] [place] 00:12:42 01:07:25 Health 2021-01-04 2021-01-04 Inpatient [facility] [id number] [place] 17:11:58 18:14:36 Health 2021-01-04 2021-01-04 Inpatient KARYN, [facility] [id number] [place] 13:40:49 15:55:44 [facility] 2021-01-03 2021-01-03 Inpatient [facility] [id number] [place] 17:58:59 17:59:03 Health 2021-01-01 2021-01-01 Inpatient [facility] [id number] [place] 16:44:03 16:44:07 [facility] 2021-01-01 2021-01-01 Inpatient EMMA, [facility] [id number] [place] 08:36:00 09:12:12 [facility] 2021-01-01 2021-01-01 Inpatient [facility] [id number] [place] 07:46:21 08:35:30 [facility] 2021-01-01 2021-01-01 Inpatient YULI, [facility] [id number] [place] 02:09:24 03:31:22 GRISEL [facility] 2020-12-31 2020-12-31 Inpatient MAREK, [facility] [id number] [place] 05:17:16 06:34:53 BUSHRA Booker 2020-12-31 2020-12-31 Inpatient [facility] [id number] [place] 01:50:33 06:34:15 [facility] 2020-12-31 2020-12-31 Inpatient [facility] [id number] [place] 03:50:31 04:54:13 [facility] 2020-12-31 2020-12-31 Inpatient [facility] [id number] [place] 01:43:22 04:38:47 [facility] 2020-12-30 2020-12-30 Emergency [facility] [id number] [place] 22:46:36 23:04:47 [facility] 2020-12-30 2020-12-30 Emergency [facility] [id number] [place] 22:46:20 23:04:03 [facility] 2020-12-30 2020-12-30 Emergency [facility] [id number] [place] 22:47:41 23:03:11 [facility] 2020-12-30 2020-12-30 Emergency LAKHWINDER, [facility] [id number] [place] 00:00:00 00:00:00 VÍCTOR [facility] 2020-12-20 2020-12-20 Emergency AURE Triplett[facility] [id number] [facility] 06:26:00 16:34:00 Erich 52 [facility] 2020-12-20 2020-12-20 Emergency AURE Triplett, [facility] [id number] [facility] 06:26:00 16:34:00 Erich [id number] [facility] 2020-11-15 2020-11-16 Emergency Eusebia Bland 1.2.840 .1 [id number] Methodi 00:55:00 14:35:00 William Nunes [id number] 84 8 Mio Sorensen 3.430.2.7 Hospita .3.684233 l .8 2020-11-14 2020-11-14 Emergency Manju 1.2.840.1 [id number] Methodi 15:47:00 16:03:00 William Langston [id number] 3.430.2.7 Hospit a .3.761222 l .8 2020-10-22 2020-10-24 [facility] Kingsley Dennis JimenezBlayne 1.2.840.1 [id number] Methodi 16:52:00 16:26:00 Encounter Pepito Lauren [id number] 50 Jessica Awad 3.430.2.7 [facility] .3.868870 l .8 2020-10-16 2020-10-16 Emergency EM Crismon, [facility] MALIKA [id number] [facility] 00:20:00 08:00:00 Gale [id number] Am[facility] 2020-10-06 2020-10-06 Emergency EM Zia, HCAKW MALIKA [id number] [facility] 01:57:00 20:14:00 Jonny-Cedric [id number] [facility] 2020-09-05 2020-09-05 Emergency EM Kylah, Michael [facility]CR MALIKA [id number] [facility] 11:17:00 18:22:00 [id number] [facility] 2020-09-03 2020-09-03 Emergency EM Pardo, [facility] MALIKA [id number] [facility] 03:35:00 15:00:00 Farhad [id number] [facility] 2020-09-02 2020-09-03 Emergency EM Fulton, Mcihael [facility] MALIKA [id number] [facility] 23:16:00 01:53:00 [id number] [facility] 2020-08-11 2020-08-12 Emergency AURE Zeng, JYOTICR [facility] [id number] [facility] 11:12:00 00:40:00 Lan [id number] [facility] 2020-07-12 2020-07-12 Emergency [facility] 1.2.780.433 [id number] [facility] 03:16:00 05:05:00 Michael Nichols 350.1.13.10 [facility] [place] 4.2.7.2.686 [facility] [id number] [address] 2020-07-12 2020-07-12 Emergency [facility] 1.2.498.001 [id number] 03:16:00 05:05:00 Michael Nichols 350.1.13.10 [place] [address].2.7.[address] [place] [address] [id number] [facility] 2020-07-12 2020-07-12 Emergency X [facility] ERT [id number] Univers 03:16:00 03:16:00 MICHAEL pinto [facility] 2019-02-21 2019-02-21 Outpatient [facility] [id number] [place] 00:00:00 00:00:00 [facility] 2019-02-19 2019-02-19 Emergency [facility] [id number] 07:23:00 07:23:00 [facility] 2019-02-01 2019-02-01 Outpatient [facility] [id number] [place] 22:11:49 22:11:49 [facility] 2018-11-04 2018-11-05 Emergency [facility] [id number] [facility] 20:38:48 05:13:00 Brown Nichols 350.1.13.10 i ty [facility] [place] 4.2.7.[address] [place] [address] [id number] [place] [address] [place] 2018-11-04 2018-11-05 Emergency [facility] 1.2.250.622 [id number] 20:38:48 05:13:00 Brown Nichols 350.1.13.10 [place] 4.2.7.2.686 [place] [id number] 2018-10-18 2018-10-18 Emergency [facility] [id number] [place] 06:08:40 06:08:40 [facility] 2017-04-02 2017-04-02 Outpatient [facility] [id number] [place] 00:00:00 00:00:00 [facility] 2017-03-29 2017-03-29 Emergency [facility] [id number] [place] 00:00:48 00:00:48 [facility] 2017-03-22 2017-03-22 Emergency [facility] [id number] 11:46:00 11:46:00 [facility] 2017-03-16 2017-03-20 [facility] [id number] 20:46:00 13:41:00 Jonathon DIOP [facility] 2017-01-26 2017-01-26 Outpatient [facility] [id number] [facility] 00:00:00 00:00:00 Results Test Description Test Time Test Comments Results Result Comments Source TROPONIN I 2021-05-08 04:00:37 Test Item Value Reference Range Interpretation Comme nts TROPONIN I (test code = 0.000 ng/mL See_Comment [Au tomated message] The [id number]) system which ge nerated this result tra [...] biotin. Lab Interpretation Normal (test code = 38485-5) [facility] [id number] 00:46:10 Test Item Value Reference Range Interpretation Comments ESR (test code = See_Comment H [Automated message] [id number]) The system CX generated this result transmitted ref erence range: 0 - 10 m m/HR. The reference r johan was not used to interpret this result as normal/abnor mal. Lab Interpretation (test Abnormal code = 11363-2) [facility] (A1C)2021-05-07 20:23:40 Test Item Value Reference Range Interpretation Comments HGB A1C (test code = 5.3 % 4.0-5.7 4548-4) GEORGIE (test code = GEORGIE) Reference RangesNormal: <5.7%Prediabetes: 5.7 - 6.4%Diabetes: > 6.5% Lab Interpretation (test Normal code = 97687-9) [facility]OL[facility] PAN[facility] (61650)2021-05-07 16:11:59 Test Item Value Reference Range Interpretation Comments NA (test code = 139 mmol/L 135-145 4762014181) K (test code = 3.9 mmol/L 3.5-5.0 7092448242) CL (test code = 101 mmol/L 98-108 2403029753) CO2 TOTAL (test code = 23 mmol/L 23-31 3749042811) AGAP (test code = 2-16 0769243693) BUN (test code = 13 mg/dL 7-23 0148142775) GLUCOSE (test code = 92 mg/dL 70-110 0312654474) CREATININE (test code = 0.40 mg/dL 0.60-1.25 L 3001598231) TOTAL BILI (test code = 1.6 mg/dL 0.1-1.1 H 6190952907) CALCIUM (test code = 9.6 mg/dL 8.6-10.6 9929540003) T PROTEIN (test code = 7.7 g/dL 6.3-8.2 9753275009) ALBUMIN (test code = 4.6 g/dL 3.5-5.0 3200856709) ALK PHOS (test code = 91 U/L 34-122 2240239729) ALTv (test code = 24 U/L 5-50 1742-6) AST(SGOT) (test code = 31 U/L 13-40 6660095124) eGFR (test code = mL/min/1.73m2 2596121749) GEORGIE (test code = GEORGIE) Association of [...] tests). Lab Interpretation Abnormal (test code = 85492-4) [facility] THRM[facility] [id number] 15:52:36 Test Item Value Reference Range Interpretation Comments APTT Patient (test See_Comment [Automat ed code = 3173-2) message] The system which generated this result transmitted reference range : 23 - 38 Seconds . The reference range was not used to interpr et this result as normal/abnormal . GEORGIE (test code = GEORGIE) The [facility] patient population mean normal value for aPTT is 30 seconds. Lab Interpretation Normal (test code = 44066-0) [facility] / [id number] 15:50:30 Test Item Value Reference Range Interpretation [...] tions. Lab Interpretation (test Normal code = 28382-6) [facility] WITH [id number] 15:42:54 Test Item Value Reference Range Interpretation Comments WBC (test code = See_Comment [Automated 7390-2) message] The sy stem which generated this result transmitted reference range : 4.20 - 10.70 10*3/?L. The reference range was not used to interpret this result as normal/abnormal . RBC (test code = See_Comment [Automated 639-8) message] The sy stem which generated this [...] RDW-SD (test code = 44.1 fL 38.5-51.6 44859-7) RDW-CV (test code = 13.3 % 12.1-15.4 788-0) PLT (test code = See_Comment [Automated 777-3) message] The sy stem which generated this result transmitted reference range : 150 - 328 10*3/ ?L. The reference r jhoan was not used to interpret this result as normal/abnormal . MPV (test code = 9.7 fL 9.8-13.0 L 21559-9) NRBC/100 WBC (test See_Comment [Automat ed code = 5418553509) message] The system which generated this result transmitted reference range : 0.0 - 10.0 /100 WBCs. The refer ence range was not u sed to interpret th is result as normal/abnormal . NRBC x10^3 (test code <0.01 See_Comment [Auto mated = 5327512641) message] The s ystem which generated this result transmitted reference range : 10*3/?L. The reference range was not used to interpret this result as normal/abnormal . GRAN MAT (NEUT) % 77.6 % (test code = 770-8) IMM GRAN % (test code 0.60 % = 3629422932) LYMPH % (test code = 13.7 % 736-9) MONO % (test code = 7.7 % 5905-5) EOS % (test code = 0.2 % 713-8) BASO % (test code = 0.2 % 706-2) GRAN MAT x10^3(ANC) 7.68 10*3/uL 1.99-6.95 H (test code = 9261174923) IMM GRAN x10^3 (test 0.06 10*3/uL 0.00-0.06 code = 1840857438) LYMPH x10^3 (test code 1.35 10*3/uL 1.09-3.23 = 731-0) MONO x10^3 (test code 0.76 10*3/uL 0.36-1.02 = 742-7) EOS x10^3 (test code = <0.03 0.06-0.53 L 711-2) BASO x10^3 (test code <0.03 0.01-0.09 = 704-7) Lab Interpretation Abnormal (test code = 25565-5) [facility]2 ORF1ab Resp Ql [id number] 19:38:49 Test Item Value Reference Range Interpretation Comments Hospitalized? (test Yes code = 74347-3) ICU? (test code = No 47387-9) Symptomatic as defined No by CDC? (test code = 82073-0) Employed in No Healthcare? (test code = 41476-1) Resident in a No congregate care setting (including nursing homes, residential care for people with intellectual and developmental disabilities, psychiatric treatment facilities, group homes, board and care homes, homeless retirement, foster care or other): (test code = 98219-8) SARS-CoV-2 ORF1ab Resp NOT DETECTED Not Detected INTER PRETATION: No Ql BETY+probe (test detectabl e levels code = 57547-4) of SARS-CoV- 2 Coronavirus (COVID-19) were present [...] n with SARS-CoV-2 Coronavirus (COVID-19). COMMENT: This [employer] SARS-CoV-2 molecular diagnostic assay utilizes Sample Room Supervisor Mediated Amplification (TMA) technology to rapidly detect the SARS-CoV-2 (COVID-19) virus from respiratory samples. In accordance with the FDA's guidance document "Policy for Diagnostic Tests for Coronavirus Disease- 2019 during the Public Health Emergency", this test was developed, and its performance characteristics were verified by the [facility] molecular diagnostics laboratory and is authorized for clinical diagnostic use. This laboratory is certified under the Clinical Laboratory Improvement Amendments (CLIA) as qualified to perform high complexity clinical laboratory testing.SARS-CoV-2 RNA Resp Ql [id number]+[id number] 22:20:00 Test Item Value Reference Range Interpretation Comments Hospitalized? (test Yes code = 45613-5) ICU? (test code = No 17692-5) Symptomatic as defined No by CDC? (test code = 68225-7) Employed in Unknown Healthcare? (test code = 63293-1) Resident in a Unknown congregate care setting (including nursing homes, residential care for people with intellectual and developmental disabilities, psychiatric treatment facilities, group homes, board and care homes, homeless retirement, foster care or other): (test code = 66363-6) SARS-CoV-2 RNA Resp Ql NOT DETECTED Not Detected INTER PRETATION: No BETY+probe (test code = detec table levels 51280-0) of SARS-CoV-2 Coronavirus (COVID-19) were present in [...] performance characteristics were verified by the [facility] molecular diagnostics laboratory and is authorized for clinical diagnostic use. This laboratory is certified under the Clinical Laboratory Improvement Amendments (CLIA) as qualified to perform high complexity clinical laboratory testing.SARS-CoV-2 ORF1ab Resp Ql BETY+[id number] 14:59:31 Test Item Value Reference Range Interpretation Comments Hospitalized? (test Yes code = 10202-3) ICU? (test code = Yes 754572-9) Symptomatic as defined No by CDC? (test code = 50147-7) Employed in No Healthcare? (test code = 02592-4) Resident in a No congregate care setting (including nursing homes, residential care for people with intellectual and developmental disabilities, psychiatric treatment facilities, group homes, board and care homes, homeless retirement, foster care or other): (test code = 67797-5) SARS-CoV-2 ORF1ab Resp NOT DETECTED Not Detected INTER PRETATION: No Ql BETY+probe (test detectabl e levels code = 66612-8) of SARS-CoV- 2 Coronavirus (COVID-19) were present [...] n with SARS-CoV-2 Coronavirus (COVID-19). COMMENT: This [employer] SARS-CoV-2 molecular diagnostic assay utilizes Sample Room Supervisor Mediated Amplification (TMA) technology to rapidly detect the SARS-CoV-2 (COVID-19) virus from respiratory samples. In accordance with the FDA's guidance document "Policy for Diagnostic Tests for Coronavirus Disease- 2019 during the Public Health Emergency", this test was developed, and its performance characteristics were verified by the [facility] molecular diagnostics laboratory and is authorized for clinical diagnostic use. This laboratory is certified under the Clinical Laboratory Improvement Amendments (CLIA) as qualified to perform high complexity clinical laboratory testing.SARS-CoV-2 RNA Resp Ql [id number] 00:53:33 Test Item Value Reference Range Interpretation Comments Hospitalized? (test code Yes = 80264-4) ICU? (test code = No 94617-6) Symptomatic as defined No by CDC? (test code = 30418-6) Employed in Healthcare? No (test code = 42131-4) Resident in a congregate No care setting (including nursing homes, residential care for people with intellectual and developmental disabilities, psychiatric treatment facilities, group homes, board and care homes, homeless retirement, foster care or other): (test code = 67623-9) ? (test code = No 23115-9) SARS-CoV-2 RNA Resp Ql DETECTED Not Detected A INTER PRETATION: This BETY+probe (test code = patie nt's sample had 68509-7) detectable RNA present for the SARS-CoV-2 Coronavirus [...] performance characteristics were verified by the [facility] molecular diagnostics laboratory and is authorized [...] NONE A MUCU) DRUGS OF ABUSE SCREEN [id number] 13:19:00 Test Item Value Reference Interpretation Comments [...] this result as normal/abnormal . BASIC METABOLIC [id number] 09:24:00 Test Item Value Reference Range Interpretation [...] message] (test code = Index/DL The system CX HEM[employer]WaveRx) generated this result transmit isai reference range [...] this result as normal/abnormal . HEPATIC FUNCTION [id number] 09:24:00 Test Item Value Reference Range Interpretation [...] 59 Unit/L 45-117 N code = ALKP) [id number] 09:24:00 Test Item Value Reference Range Interpretation Comments ACETAMINOPHEN (test code = ACET) <2.0 mcG/ML 10.0-30.0 L [id number] 09:24:00 Test Item Value Reference Range Interpretation Comments ALCOHOL (test code = < 3 MG/DL 0-10 N MEDICAL ALCOHOL ALC) RESULTS. SITE W PREPPED WITH BE TADINE. <10 MG/DL ARE CONSIDERED NEGA TIVE. >400 MG/DL MAY BE FATAL.RESULTS F OR MEDICAL USE ONL Y. NOT TO BE USED FOR FORENSIC PURPOSES. [id number] 07:55:00 Test Item Value Reference Range Interpretation Comments SALICYLATE (test code < 1.7 MG/DL See_Comment L RESULT <2.8 IS = SMITH) CONSIDERED NEGA TIVE FOR SALICYLATE. [Automated mess age] The system CX generated this result transmitted ref erence range: 2.8-20.0 THER. The reference r johan was not used to interpret this result as normal/abnor mal. CBC W/AUTO [id number] 07:10:00 Test Item Value Reference Range Interpretation [...] 0.00 K/mm3 0.00-0.05 N NRBC#) ECG 12 [id number] 22:52:05 Test Item Value Reference Range Interpretation Comments Ventricular rate (test code = 253) Atrial rate (test code = 255) IN interval (test code = 266) QRSD interval [...] available-Electronica lly Signed By Doron Judge MD ([id number]) on 11/26/2020 5:52:04 PM [facility] [id number] 07:28:23 Test Item Value Reference Range Interpretation Comments Urine culture (test SEE COMMENT Bacteriu winston screen code = 6290888) negative. [facility] [id number] 09:20:00 Test Item Value Reference Range Interpretation [...] message] (test code = Index/DL The system [employer]) generated this result transmit isai reference range [...] this result as normal/abnormal . Specimen comments: [facility] [id number] 09:20:00 Test Item Value Reference Range Interpretation [...] code = ALKP) Specimen comments: CCTHYROID STIMULATING [id number] 09:20:00 Test Item Value Reference Range Interpretation Comments THYROID STIMULATING HORMONE 0.619 mc IU/ML 0.340-4.820 N (test code = TSH) Specimen comments: [id number] 09:20:00 Test Item Value Reference Range Interpretation [...] change s in troponin levelscharacter istic of [place]. Specimen comments: [id number] 09:20:00 Test Item Value Reference Range Interpretation Comments ACETAMINOPHEN (test code = ACET) <2.0 mcG/ML 10.0-30.0 L Specimen comments: [id number] 09:20:00 Test Item Value Reference Range Interpretation Comments ALCOHOL (test code = < 3 MG/DL 0-10 N MEDICAL ALCOHOL ALC) RESULTS. SITE W PREPPED WITH BE TADINE. <10 MG/DL ARE CONSIDERED NEGA TIVE. >400 MG/DL MAY BE FATAL.RESULTS F OR MEDICAL USE ONL Y. NOT TO BE USED FOR FORENSIC PURPOSES. Specimen comments: [id number] 08:59:00 Test Item Value Reference Range Interpretation Comments SALICYLATE (test code < 1.7 MG/DL See_Comment L RESULT <2.8 IS = SMITH) CONSIDERED NEGA TIVE FOR SALICYLATE. [Automated mess age] The system CX generated this result transmitted ref erence range: 2.8-20.0 THER. The reference r johan was not used to interpret this result as normal/abnor mal. Specimen comments: CCBASI METABOLIC [id number] 08:55:00 Test Item Value Reference Range Interpretation [...] message] (test code = Index/DL The system CX HEMINDEX) generated this result transmit isai reference [...] this result as normal/abnormal . Specimen comments: [facility] [id number] 08:55:00 Test Item Value Reference Range Interpretation [...] code = ALKP) Specimen comments: CCTHYROID STIMULATING [id number] 08:55:00 Test Item Value Reference Range Interpretation Comments THYROID STIMULATING HORMONE 0.619 mc IU/ML 0.340-4.820 N (test code = TSH) Specimen comments: [id number] 08:55:00 Test Item Value Reference Range Interpretation [...] change s in troponin levelscharacter istic of [place]. Specimen comments: [id number] 08:55:00 Test Item Value Reference Range Interpretation Comments ACETAMINOPHEN (test code = ACET) mcG/ML 10.0-30.0 Specimen comments: [id number] 08:55:00 Test Item Value Reference Range Interpretation Comments ALCOHOL (test code = < 3 MG/DL 0-10 N MEDICAL ALCOHOL ALC) RESULTS. SITE W PREPPED WITH BE TADINE. <10 MG/DL ARE CONSIDERED NEGA TIVE. >400 MG/DL MAY BE FATAL.RESULTS F OR MEDICAL USE ONL Y. NOT TO BE USED FOR FORENSIC PURPOSES. Specimen comments: [facility] W/AUTO [id number] 08:10:00 Test Item Value Reference Range Interpretation [...] NRBC#) Specimen comments: CC- XR CHEST 1 [id number] 03:12:00 [facility] : 1985 Sex: M FAX: Mahin Smallwood MD [phone] [place]: St: [facility] FAX: Vilma Coker [phone] Patient Name: ARLINE RAO Unit No: [id number] EXAMS: CPT CODE: [id number] XR CHEST 1 V 23935 EXAM: - XR CHEST 1 V HISTORY: Chest pain. Covid positive. FINDINGS: Single AP view of the chest is provided. Heart size and vascularity are within normal limits. There is no evidence of a focal consolidation. There isno pleural effusion or pneumothorax. There is no definite acute osseous abnormality. IMPRESSION: No radiographic evidence of acute cardiopulmonary process. Electronically Signed by Santos Bobby MD on 1at 0312 Reported and signed by: Santos Bobby MD CC: Vilma BENNETT Dictated Date/Time: 10/16/2020 (311)Technologist: Dk Hale Transcribed Date/Time: 10/16/2020 (311) By: [email or web address] Orig Print D/T: S: 10/16/2020 (314) TATUM Lyubov NAME: RA[address] PHYS: Vilma [place], [place] [address] : 1985 AGE: 35 SEX: M LOC: B.ERS PHONE #: [phone] EXAM DATE: 10/16/2020 STATUS: REG ER FAX #: [phone] RAD NO: DC Dt: PAGE 1 Signed ReportCOVID 19 Asymptomatic IH [id number] 06:58:00 Test Item Value Reference Range Interpretation Comments COVID 19 Asymptomatic IH AG (test POSITIVE Negative A code = COVNONPUIAG) BASIC METABOLIC [id number] 04:22:00 Test Item Value Reference Range Interpretation [...] 8.3 mg/dL 8.4-10.2 L CA) LIVER FUNCTION [id number] 04:22:00 Test Item Value Reference Range Interpretation [...] U/L 38-126 N (test code = ALKP) [id number] 04:22:00 Test Item Value Reference Range Interpretation Comments ALCOHOL (test code = < 10 mg/dL <10 ALC) ~~~~~~~~~~~~~~~ ~~~~~~~ ~~~~~~~~~~~~~~~ ~~~~~~~ ~~~~~~ RESU LTS ARE TO BE USED FOR MEDICAL PURPOSES ONLY.F OR LEGAL PURPOSES THE SPECIMEN MUST B E COLLECTED BY A CHAINOF CUSTODY. LEGAL TESTING IS NOT PERFORME D BY THIS FACILITY. ~~~~~~~~~~~~~~~ ~~~~~~~ ~~~~~~~~~~~~~~~ ~~~~~~~ ~~~~~~ CBC W/AUTO [id number] 04:08:00 Test Item Value Reference Range Interpretation [...] x10 3/uL 0.0-0.1 N Coronavirus 2018 nCoV [id number] 17:19:00 Test Item Value Reference Range Interpretation Comments Coronavirus 2019 nCoV Bedside (test Negative Neg code = [id number]) [id number] 13:14:00 Test Item Value Reference Range Interpretation Comments SALICYLATE (test code < 1.7 MG/DL See_Comment L RESULT <2.8 IS = SMITH) CONSIDERED NEGA TIVE FOR SALICYLATE. [Automated mess age] The system CX generated this result transmitted ref erence range: 2.8-20.0 THER. The reference r johan was not used to interpret this result as normal/abnor mal. BASIC METABOLIC [id number] 13:03:00 Test Item Value Reference Range Interpretation [...] message] (test code = Index/DL The system [employer]) generated this result transmit isai reference range [...] this result as normal/abnormal . HEPATIC FUNCTION [id number] 13:03:00 Test Item Value Reference Range Interpretation [...] 87 Unit/L 45-117 N code = ALKP) [id number] 13:03:00 Test Item Value Reference Range Interpretation Comments ACETAMINOPHEN (test code = ACET) <2.0 mcG/ML 10.0-30.0 L [id number] 13:03:00 Test Item Value Reference Range Interpretation Comments ALCOHOL (test code = < 3 MG/DL 0-10 N MEDICAL ALCOHOL ALC) RESULTS. SITE W PREPPED WITH BE TADINE. <10 MG/DL ARE CONSIDERED NEGA TIVE. >400 MG/DL MAY BE FATAL.RESULTS F OR MEDICAL USE ONL Y. NOT TO BE USED FOR FORENSIC PURPOSES. DRUGS OF ABUSE SCREEN [id number] 12:38:00 Test Item Value Reference Interpretation Comments [...] this result as normal/abnormal . BASIC METABOLIC [id number] 12:37:00 Test Item Value Reference Range Interpretation [...] this result as normal/abnormal . HEPATIC FUNCTION [id number] 12:37:00 Test Item Value Reference Range Interpretation [...] 87 Unit/L 45-117 N code = ALKP) [id number] 12:37:00 Test Item Value Reference Range Interpretation Comments ACETAMINOPHEN (test code = ACET) mcG/ML 10.0-30.0 [id number] 12:37:00 Test Item Value Reference Range Interpretation Comments ALCOHOL (test code = < 3 MG/DL 0-10 N MEDICAL ALCOHOL ALC) RESULTS. SITE W PREPPED WITH BE TADINE. <10 MG/DL ARE CONSIDERED NEGA TIVE. >400 MG/DL MAY BE FATAL.RESULTS F OR MEDICAL USE ONL Y. NOT TO BE USED FOR FORENSIC PURPOSES. CBC W/AUTO [id number] 12:02:00 Test Item Value Reference Range Interpretation [...] code = 0.00 K/mm3 0.00-0.05 N NRBC#) [id number] 23:33:00 Test Item Value Reference Range Interpretation [...] change s in troponin levelscharacter istic of [place]. B-TYPE NATRIURETIC [id number] 19:24:00 Test Item Value Reference Range Interpretation Comments B-TYPE NATRIURETIC PEPTIDE < 30.00 PG/ML 0.00-100.00 N (test code = BNP) URINALYSIS [id number] 15:43:00 Test Item Value Reference Range Interpretation [...] tomated message] code = NARESH) The system [employer] h generated this result transmitted ref erence [...] 0-3 RBCU) PENDING RECEIPT OF SPECIMEN PER a.F.VT15 AT 08/11/20 1302DRUGS OF ABUSE SCREEN [id number] 15:43:00 Test Item Value Reference Interpretation Comments [...] a.STF.VT15 AT 08/11/20 1302DRUGS OF ABUSE SCREEN [id number] 15:43:00 Test Item Value Reference Interpretation Comments [...] HAND 3 + V LT 2020-08-11 13:43:00 [facility] : 1985 Sex: M FAX: Lan Agee MD [phone] [place]: E St: PRE Patient Name: ARLINE RAO Unit No: [id number] EXAMS: CPT CODE: [id number] XR HAND 3 + V LT [address] EXAM: - XR HAND 3 + V [...] CC: Lan Cooper MD Dictated Date/Time: 08/11/2020 (615)Technologist: Damaris Martinez Transcribed Date/Time: 08/11/2020 (1343) By: [email or web address] Orig Print D/T: S: 08/11/2020 (3052) [facility] Lyubov NAME: EMDUND RAO [address] PHYS: Lan Dykes [place], [place] [address] : 1985 AGE: 34 SEX: M LOC: CASSANDRA PHONE #: [phone] EXAM DATE: 08/11/2020 STATUS: PRE ER FAX #: [phone] RAD NO: DC Dt: PAGE 1 Signed Report- XR CHEST 1 [id number] 13:41:00 [facility] : 1985 Sex: M FAX: Lan Agee MD [phone] [place]: St: PRE Patient Name: ARLINE RAO Unit No: [id number] EXAMS: CPT CODE: [id number] XR CHEST 1 V 60780 EXAM: - XR CHEST 1 V Location [...] 08/11/2020 (1341)Technologist: Damaris Martinez Transcribed Date/Time: 08/11/2020 (134) By: [email or web address] [facility] Print D/T: S: 08/11/2020 (5344) TATUM Mcarthur NAME: ARLINE RAO [address] [place] [address] PHYS: Lan Munroe [place], [place] [address] : 1985 AGE: 34 SEX: M LOC: B.BANDAR PHONE #: [phone] EXAM DATE: 08/11/2020 STATUS: PRE ER FAX #: [phone] RAD NO: DC Dt: PAGE 1 Signed ReportCOMPREHENSIVE METABOLIC [id number] 12:50:00 Test Item Value Reference Range Interpretation [...] (test code = MG Index/DL The system CX HEMINDEX) generated this result transmit isai reference [...] to interpret this result as normal/abnormal . [id number] 12:50:00 Test Item Value Reference Range Interpretation [...] change s in troponin levelscharacter istic of [place]. [id number] 12:50:00 Test Item Value Reference Range Interpretation Comments ACETAMINOPHEN (test code = ACET) < 2.0 mcG/ML 10.0-30.0 L [id number] 12:50:00 Test Item Value Reference Range Interpretation Comments ALCOHOL (test code = <3 MG/DL 0-10 N MEDICAL ALCOHOL RESULTS. ALC) SITE WAS PREPPE D WITH BETADINE. <10 MG/DL ARE CONSI DERED NEGATIVE. >400 MG/DL MAY BE FATAL.RESULTS F OR MEDICAL USE ONL Y. NOT TO BE USED FOR FOR ENSIC PURPOSES. [id number] 12:39:00 Test Item Value Reference Range Interpretation Comments SALICYLATE (test code 3.1 MG/DL See_Comment N [Auto mated message] = SMITH) The system CX generated this result transmitted ref erence range: 2.8-20.0 THER. The reference r johan was not used to interpret this result as normal/abnor mal. COMPREHENSIVE METABOLIC [id number] 12:39:00 Test Item Value Reference Range Interpretation [...] (test code = MG Index/DL The system CX HEMINDEX) generated this result transmit isai reference [...] to interpret this result as normal/abnormal . [id number] 12:39:00 Test Item Value Reference Range Interpretation [...] change s in troponin levelscharacter istic of [place]. [id number] 12:39:00 Test Item Value Reference Range Interpretation Comments ACETAMINOPHEN (test code = ACET) < 2.0 mcG/ML 10.0-30.0 L [id number] 12:39:00 Test Item Value Reference Range Interpretation Comments ALCOHOL (test code = ALC) MG/DL 0-10 COMPREHENSIVE METABOLIC [id number] 12:34:00 Test Item Value Reference Range Interpretation [...] (test code = MG Index/DL The system [employer]) generated this result transmit isai reference range [...] to interpret this result as normal/abnormal . [id number] 12:34:00 Test Item Value Reference Range Interpretation Comments TROPONIN-I (test code = TROPI) NG/ML 0.000-0.045 [id number] 12:34:00 Test Item Value Reference Range Interpretation Comments ACETAMINOPHEN (test code = ACET) < 2.0 mcG/ML 10.0-30.0 L [id number] 12:34:00 Test Item Value Reference Range Interpretation Comments ALCOHOL (test code = ALC) MG/DL 0-10 CBC W/AUTO [id number] 12:23:00 Test Item Value Reference Range Interpretation [...] 0.00 K/mm3 0.00-0.05 N NRBC#) CBC WITH [id number] 09:49:19 Test Item Value Reference Range Interpretation Comments WBC (test code = See_Comment [Automated 1021-2) message] The sy stem which generated this result transmitted reference range : 4.20 - 10.70 10*3/?L. The reference range was not used to interpret this result as normal/abnormal . RBC (test code = See_Comment L [Automated 315-6) message] The sy stem which generated this [...] RDW-SD (test code = 42.9 fL 38.5-51.6 89874-0) RDW-CV (test code = 12.4 % 12.1-15.4 788-0) PLT (test code = See_Comment [Automated 777-3) message] The sy stem which generated this result transmitted reference range : 150 - 328 10*3/ ?L. The reference r johan was not used to interpret this result as normal/abnormal . MPV (test code = 9.8 fL 9.8-13.0 03654-1) NRBC/100 WBC (test See_Comment [Automat ed code = 7019076691) message] The system which generated this result transmitted reference range : 0.0 - 10.0 /100 WBCs. The refer ence range was not u sed to interpret th is result as normal/abnormal . NRBC x10^3 (test code <0.01 See_Comment [Auto mated = 4938470345) message] The s ystem which generated this result transmitted reference range : 10*3/?L. The reference range was not used to interpret this result as normal/abnormal . GRAN MAT (NEUT) % 41.9 % (test code = 770-8) IMM GRAN % (test code 0.20 % = 4778578011) LYMPH % (test code = 40.9 % 736-9) MONO % (test code = 13.7 % 5905-5) EOS % (test code = 3.1 % 713-8) BASO % (test code = 0.2 % 706-2) GRAN MAT x10^3(ANC) 1.89 10*3/uL 1.99-6.95 L (test code = 7383203657) IMM GRAN x10^3 (test <0.03 0.00-0.06 code = 7616251128) LYMPH x10^3 (test code 1.85 10*3/uL 1.09-3.23 = 731-0) MONO x10^3 (test code 0.62 10*3/uL 0.36-1.02 = 742-7) EOS x10^3 (test code = 0.14 10*3/uL 0.06-0.53 711-2) BASO x10^3 (test code <0.03 0.01-0.09 = 704-7) Lab Interpretation Abnormal (test code = 94629-4) [facility] [id number] 09:39:48 Test Item Value Reference Range Interpretation Comments TROPONIN I (test 0.002 ng/mL See_Comment [Automated code = 4492938766) message] The system which generated this result [...] ? Lab Interpretation Normal (test code = 77911-8) [facility] (13153)2020-07-12 09:22:19 Test Item Value Reference Range Interpretation Comments NA (test code = 135 mmol/L 135-145 3620004041) K (test code = 3.6 mmol/L 3.5-5.0 4689062047) CL (test code = 103 mmol/L 98-108 7076575080) CO2 TOTAL (test code = 26 mmol/L 23-31 7466611137) AGAP (test code = 2-16 5548824187) BUN (test code = 17 mg/dL 7-23 2398740460) GLUCOSE (test code = 98 mg/dL 70-110 3393694958) CREATININE (test code = 0.82 mg/dL 0.60-1.25 5312295234) TOTAL BILI (test code = 1.3 mg/dL 0.1-1.1 H 1253410964) CALCIUM (test code = 8.4 mg/dL 8.6-10.6 L 5957804810) T PROTEIN (test code = 6.6 g/dL 6.3-8.2 4578988783) ALBUMIN (test code = 3.7 g/dL 3.5-5.0 0404216487) ALK PHOS (test code = 81 U/L 34-122 8293770150) ALTv (test code = 51 U/L 5-50 H 1742-6) AST(SGOT) (test code = 68 U/L 13-40 H 0906001239) eGFR (test code = mL/min/1.73m2 5853248581) GEORGIE (test code = GEORGIE) Association of [...] tests). Lab Interpretation Abnormal (test code = 36573-0) [facility]IP[facility], [id number] 09:22:14 Test Item Value Reference Range Interpretation Comments LIPASE (test code = 7499775968) 106 U/L 0-220 Lab Interpretation (test code = Normal 14057-0) [facility]aPTT2021-05-27 09:13:54 Test Item Value Reference Range Interpretation Comments APTT Patient (test See_Comment [Automat ed code = 3173-2) message] The system which generated this result transmitted reference range : 23 - 38 Seconds . The reference range was not used to interpr et this result as normal/abnormal . GEORGIE (test code = GEORGIE) The [facility] patient population mean normal value for aPTT is 30 seconds. Lab Interpretation Normal (test code = 11574-4) [facility] TexasPROTHROMBIN TIME / [id number] 09:11:53 Test Item Value Reference Range Interpretation [...] tions. Lab Interpretation (test Normal code = 67630-4) [facility]onavirus 2019 nCoV [id number] 08:52:00 Test Item Value Reference Range Interpretation Comments Coronavirus 2019 Negative NEGATIVE This test h as been nCoV Bedside (test authorize d by FDA under code = [id number]) an EUA for use byauthorized laboratories; This [...] and/o r diagnosis of CO VID-19 under Dqqltqa55 4(b)(1) of the Act, 21 U.S .C. 360bbb-3(b)(1), unless theauthorizatio n is terminated or r evoked sooner. DRUGS OF ABUSE [id number] 03:16:00 Test Item Value Reference Range Interpretation [...] poses (e.g employment testing). DRUGS OF ABUSE [id number] 02:47:00 Test Item Value Reference Range Interpretation [...] (test code = PHENCU) DRUGS OF ABUSE [id number] 02:38:00 Test Item Value Reference Range Interpretation [...] NEGATIVE (test code = PHENCU) BASIC METABOLIC [id number] 02:34:00 Test Item Value Reference Range Interpretation [...] 9.7 mg/dL 8.4-10.2 N CA) LIVER FUNCTION [id number] 02:34:00 Test Item Value Reference Range Interpretation [...] U/L 38-126 N (test code = ALKP) [id number] 02:34:00 Test Item Value Reference Range Interpretation Comments ACETAMINOPHEN (test code = ACET) <10 ug/mL 10-30 L [id number] 02:34:00 Test Item Value Reference Range Interpretation Comments SALICYLATE (test code < 1.0 mg/dL Negati ve <2.0 = SMITH) mg/dLTherapeuti c Range <20 mg/dL [id number] 02:34:00 Test Item Value Reference Range Interpretation Comments ALCOHOL (test code = < 10 mg/dL <10 ALC) ~~~~~~~~~~~~~~~ ~~~~~~~ ~~~~~~~~~~~~~~~ ~~~~~~~ ~~~~~~ RESU LTS ARE TO BE USED FOR MEDICAL PURPOSES ONLY.F OR LEGAL PURPOSES THE SPECIMEN MUST B E COLLECTED BY A CHAINOF CUSTODY. LEGAL TESTING IS NOT PERFORME D BY THIS FACILITY. ~~~~~~~~~~~~~~~ ~~~~~~~ ~~~~~~~~~~~~~~~ ~~~~~~~ ~~~~~~ URINALYSIS [id number] 02:27:00 Test Item Value Reference Range Interpretation [...] this result as normal/abnormal . CBC W/AUTO [id number] 02:18:00 Test Item Value Reference Range Interpretation [...] x10 3/uL 0.0-0.1 N DRUGS OF ABUSE [id number] 06:47:00 Test Item Value Reference Range Interpretation [...] non-medical pur poses (e.g employment testing). URINALYSIS [id number] 06:29:00 Test Item Value Reference Range Interpretation [...] this result as normal/abnormal . BASIC METABOLIC [id number] 03:28:00 Test Item Value Reference Range Interpretation [...] 9.0 mg/dL 8.4-10.2 N CA) LIVER FUNCTION [id number] 03:28:00 Test Item Value Reference Range Interpretation [...] U/L 38-126 N (test code = ALKP) [id number] 03:28:00 Test Item Value Reference Range Interpretation Comments ACETAMINOPHEN (test code = ACET) <10 ug/mL 10-30 L [id number] 03:28:00 Test Item Value Reference Range Interpretation Comments SALICYLATE (test code < 1.0 mg/dL Negati ve <2.0 = SMITH) mg/dLTherapeuti c Range <20 mg/dL [id number] 03:28:00 Test Item Value Reference Range Interpretation Comments ALCOHOL (test code = < 10 mg/dL <10 ALC) ~~~~~~~~~~~~~~~ ~~~~~~~ ~~~~~~~~~~~~~~~ ~~~~~~~ ~~~~~~ RESU LTS ARE TO BE USED FOR MEDICAL PURPOSES ONLY.F OR LEGAL PURPOSES THE SPECIMEN MUST B E COLLECTED BY A CHAINOF CUSTODY. LEGAL TESTING IS NOT PERFORME D BY THIS FACILITY. ~~~~~~~~~~~~~~~ ~~~~~~~ ~~~~~~~~~~~~~~~ ~~~~~~~ ~~~~~~ CBC W/AUTO [id number] 00:30:00 Test Item Value Reference Range Interpretation [...] 3/uL 0.0-0.1 N - CT C-SPINE W/O [id number] 23:37:00 Patient Name: ARLINE RAO Unit No: [id number] EXAMS: CPT CODE: [id number] CT C-SPINE W/O CONT 16867 Location: H3 CT cervical spine, 08/29/19 TECHNIQUE: CT examination [...] Steward CTDI: 16.41 DLP: 366.20 Trnscrpt: 08/29/2019 (233) [email or web address] [facility] Lyubov NAME: ARLINE RAO [address] [place] [address] PHYS: Lan Munroe [place], [place] [address] : 1985 AGE: 33 SEX: M LOC: B.ERS PHONE #: [phone] EXAM DATE: 08/29/2019 STATUS: REG ER FAX #: [phone] RAD #: D/C DT PAGE 1 Signed Report Patient Name: ARLINE RAO Unit No: [id number] EXAMS: CPT CODE: [id number] CT C-SPINE W/O CONT 80405 <Continued> Orig Print D/T: S: 08/29/2019 (0478) TATUM [place] NAME: ARLINE RAO [address] [place] [address] PHYS: Lan Munroe MD, [place] [address] : 1985 AGE: 33 SEX: M LOC: [facility] PHONE #: [phone] EXAM DATE: 08/29/2019 STATUS: REG ER FAX #: [phone] RAD #: D/C DT PAGE 2 Signed Report- CT HEAD/BRAIN W/O [id number] 23:33:00 Patient Name: ARLINE RAO Unit No: [id number] EXAMS: CPT CODE: [id number] CT HEAD/BRAIN W/O CONT 83765 Location: CT head, 08/29/19 COMPARISON EXAMS: None [...] CTDI: 45.96 DLP: 757.79 Trnscrpt: 08/29/2019 (2333) Johnathan.DAS6 TATUM [place] NAME: ARLINE RAO [address] [place] [address] PHYS: Lan [place], [place] [address] : 1985 AGE: 33 SEX: M LOC: B.ERS PHONE #:[phone] EXAM DATE: 08/29/2019 STATUS: REG ER FAX #: [phone] RAD #: D/C DT PAGE 1 Signed Report Patient Name: ARLINE RAO Unit No: [id number] EXAMS: CPT CODE: [id number] CT HEAD/BRAIN W/O CONT 65292 <Continued> Orig Print D/T: S: 08/29/2019 (2336) TATUM [place] NAME: ARLINE RAO [address] [place] [address] Blvd PHYS: [place], [place] [address] : 1985 AGE: 33 SEX: M LOC: Ernesto.ERS PHONE #: [phone] EXAM DATE:08/29/2019 STATUS: REG ER FAX #: [phone] RAD #: D/C DT PAGE 2 Signed ReportCOMPREHENSIVE METABOLIC [id number] 23:28:00 Test Item Value Reference Range Interpretation [...] code = LIPINDEX) MG Index/DL CBC W/AUTO [id number] 23:07:00 Test Item Value Reference Range Interpretation [...] 0.00 K/mm3 0.00-0.05 N NRBC#) BASIC METABOLIC [id number] 14:23:00 Test Item Value Reference Range Interpretation [...] NORMAL code = LIPINDEX) Index/DL HEPATIC FUNCTION [id number] 14:23:00 Test Item Value Reference Range Interpretation [...] 68 Unit/L 45-117 N code = ALKP) [id number] 14:23:00 Test Item Value Reference Range Interpretation Comments ALCOHOL (test code = 3 MG/DL 0-10 N MEDICAL ALCOHOL RESULTS. ALC) SITE WAS PREPPE D WITH BETADINE. <10 MG/DL ARE CONSI DERED NEGATIVE. >400 MG/DL MAY BE FATAL.RESULTS F OR MEDICAL USE ONL Y. NOT TO BE USED FOR FOR ENSIC PURPOSES. BASIC METABOLIC [id number] 14:17:00 Test Item Value Reference Range Interpretation [...] 1 NORMAL = LIPINDEX) Index/DL HEPATIC FUNCTION [id number] 14:17:00 Test Item Value Reference Range Interpretation [...] TOTAL (test code Unit/L 45-117 = ALKP) [id number] 14:17:00 Test Item Value Reference Range Interpretation Comments ALCOHOL (test code = ALC) MG/DL 0-10 CBC W/O [id number] 14:04:00 Test Item Value Reference Range Interpretation [...] = 9.4 fL 7.6-10.4 N MPV) RPR [id number] 14:01:19 Test Item Value Reference Range Interpretation [...] = 12-17-2019 N Expiration Dt) Thyroid Stimulating [id number] 09:09:16 Test Item Value Reference Range Interpretation Comments TSH (test code = TSH) 0.418 mIU/mL 0.270-4.200 Lipid [id number] 08:59:32 Test Item Value Reference Range Interpretation Comments Cholesterol Total 131 mg/dL 0-200 RISK OF HE ART (test code = DISEASEPublishe d by Cholesterol Total) [employer] Giovanna lyte Optimal Borderl ine [...] being used code = LDL/HDL Ratio) in [facility] calculation is LDL/HDL Ratio=L DL Calc/HDL Chol Thyroid Stimulating [id number] 10:03:42 Test Item Value Reference Range Interpretation Comments TSH (test code = TSH) 1.560 mIU/mL 0.270-4.200 Lipid [id number] 09:52:10 Test Item Value Reference Range Interpretation Comments Cholesterol Total 210 mg/dL 0-200 H RISK OF HE ART (test code = DISEASEPublishe d by Cholesterol Total) [employer] Giovanna lyte Optimal Borderl ine [...] being used code = LDL/HDL Ratio) in [facility] calculation is LDL/HDL Ratio=L DL Calc/HDL Chol RPR [id number] 11:37:43 Test Item Value Reference Range Interpretation Comments RPR Qual (test code = RPR Qual) Non-Reactive Non-Reactive Reactive Control (test code = Reactive Reactive Control) Weak Reactive Control (test Weak Reactive code = Weak Reactive Control) Non-Reactive Control (test code Non-Reactive = Non-Reactive Control) Lot # (test code = Lot #) [id number] N Expiration Dt (test code = 12-17-19 N Expiration Dt) Urinalysis [id number] 23:07:47 Test Item Value Reference Range Interpretation Comments UA WBC (test code = UA WBC) None Seen 0-5 UA RBC (test code = UA RBC) None Seen 0-5 UA Bacteria (test code = UA None Seen Bacteria) UA Squam Epithelial (test code = UA 0-5 Squam Epithelial) Comprehensive Metabolic [id number] 22:29:50 Test Item Value Reference Range Interpretation Comments Sodium Level (test code = Sodium 144.0 mmol/L 135.0-145.0 Level) Potassium Level (test code = 4.6 mmol/L 3.5-5.1 Potassium Level) Chloride Level (test code = 104 mmol/L 98-105 Chloride Level) CO2 (test code = CO2) 24 mmol/L -29 Anion Gap (test code = Anion 16 [...] A/G 1.7 ratio N Ratio) Comprehensive Metabolic [id number] 22:29:50 Test Item Value Reference Range Interpretation [...] the National Kidney Foundation, http://nkdep.ni h.gov Alcohol [id number] 22:29:50 Test Item Value Reference Range Interpretation Comments Ethanol Level (test 0.06 g/dL 0.00-0.01 H Intoxica isai 0.080 g/dL code = Ethanol or more Level) Ethanol Inst (test 58 N code = Ethanol Inst) Comprehensive Metabolic [id number] 22:29:50 Test Item Value Reference Range Interpretation [...] ag e have not been validated by [facility] MDRD study and should be interpreted wit [...] ag e have not been validated by [facility] MDRD study and should be interpreted wit h caution. eGFR R esult Interpretation: eGFR > or = 60 is in the Normal RangeeGF R < 60 may mean kid tran diseaseeGFR < 1 5 may mean kidney failure Rang es recommended by the National Kidney Foundation, http://nkdep.ni h.gov Complete Blood Count with Cueepssgyvda5789-41-06 22:14:44 Test Item Value Reference Range Interpretation [...] code = IPF) 0 % N Automated [id number] 22:14:44 Test Item Value Reference Range Interpretation Comments Neutro Auto (test code = Neutro 72.2 % 36.0-70.0 H Auto) Lymph Auto (test code = Lymph Auto) 19.6 % 12.0-44.0 Ulster Auto (test code = Ulster Auto) 6.9 % 0.0-11.0 Eos, Auto (test code = Eos, Auto) 0.0 % 0.0-7.0 Basophil Auto (test code = Basophil 0.4 % 0.0-2.0 Auto) Neutro Absolute (test code = Neutro 6.1 x10 1.6-7.4 Absolute) Lymph Absolute (test code = Lymph 1.67 x10 .50-4.60 Absolute) Ulster Absolute (test code = Ulster .59 x10 .00-1.20 Absolute) Eos Absolute (test code = Eos 0.00 x10 0.00-0.74 Absolute) Baso Absolute (test code = Baso 0.03 x10 0.00-0.21 Absolute) IG [id number] 22:14:44 Test Item Value Reference Range Interpretation Comments IG (test code = IG) 0.9 % 0.0-5.0 IG Abs (test code = IG Abs) 0 x10 N Urine Drug [id number] 22:14:38 Test Item Value Reference Range Interpretation [...] if desired . Urinalysis with Microscopic if [id number] 21:53:48 Test Item Value Reference Range Interpretation [...] Ind?) rule GL_SJM_UA_MICRO _IN D Urine Drug [id number] 09:31:28 Test Item Value Reference Range Interpretation [...] matory test if desired . Comprehensive Metabolic [id number] 09:17:22 Test Item Value Reference Range Interpretation [...] A/G 2.1 ratio N Ratio) Comprehensive Metabolic [id number] 09:17:22 Test Item Value Reference Range Interpretation [...] National Kidney Foundation, http://nkdep.ni h.gov Comprehensive Metabolic [id number] 09:17:22 Test Item Value Reference Range Interpretation [...] ag e have not been validated by [facility] MDRD study and should be interpreted wit [...] ag e have not been validated by [facility] MDRD study and should be interpreted wit h caution. eGFR R esult Interpretation: eGFR > or = 60 is in the Normal RangeeGF R < 60 may mean kid tran diseaseeGFR < 1 5 may mean kidney failure Rang es recommended by the National Kidney Foundation, http://nkdep.ni h.gov IG [id number] 09:08:10 Test Item Value Reference Range Interpretation Comments IG (test code = IG) 0.4 % 0.0-5.0 IG Abs (test code = IG Abs) 0 x10 N Complete Blood Count with Mjsqohgqwmde4887-36-01 09:08:09 Test Item Value Reference Range Interpretation [...] code = IPF) 0 % N Automated Igevhqduisiu6974-46-33 09:08:09 Test Item Value Reference Range Interpretation Comments Neutro Auto (test code = Neutro 73.6 % 36.0-70.0 H Auto) Lymph Auto (test code = Lymph Auto) 17.3 % 12.0-44.0 Ulster Auto (test code = Ulster Auto) 8.3 % 0.0-11.0 Eos, Auto (test code = Eos, Auto) 0.1 % 0.0-7.0 Basophil Auto (test code = Basophil 0.3 % 0.0-2.0 Auto) Neutro Absolute (test code = Neutro 5.1 x10 1.6-7.4 Absolute) Lymph Absolute (test code = Lymph 1.19 x10 .50-4.60 Absolute) Ulster Absolute (test code = Ulster .57 x10 .00-1.20 Absolute) Eos Absolute (test code = Eos 0.01 x10 0.00-0.74 Absolute) Baso Absolute (test code = Baso 0.02 x10 0.00-0.21 Absolute) ADC / C - DRUG SCREEN [id number] 02:56:00 Test Item Value Reference Range Interpretation Comments BENZO U (test code = Negative Negative 1457470254) EARL U (test code = Negative Negative 4452688913) AMPHET (test code = Presumptive Positive Negative A 0420462368) THC (test code = Negative Negative 5685549052) METHADONE (test code = Negative Negative 4729343831) Meth U (test code = Presumptive Positive Negative A 8578693873) OPIATES (test code = Negative Negative 2070793599) Cocaine Metabolite (test Negative Negative code = 9404861182) PROPOXY (test code = Negative Negative 3447399882) Tric U (test code = Negative Negative 6490562557) PCP (test code = Negative Negative 1862717772) OXYCOD (test code = Negative Negative 5865833745) GEORGIE (test code = GEORGIE) Urine Drug [...] testing). Lab Interpretation (test Abnormal code = 77883-1) [facility] Test Item Value Reference Range Interpretation Comments ACETAMINOP (test code = <10.0 10-30 L 9679091303) GEORGIE (test code = GEORGIE) Toxic: Greater than 200 ug/mL @ 4 hour post ingestion or greater than 50 ug/mL @ 12 hour post ingestion Lab Interpretation (test Abnormal code = 85854-2) [facility] [place] 02:40:00 Test Item Value Reference Range Interpretation Comments SALICYLATE (test code <10 mg/L = 2021305385) GEORGIE (test code = GEORGIE) Therapeutic Range:? Analgesic and Antipyretic Use? 20-100 mg/L? Anti-Inflammatory Use? 100-250 mg/LToxic Range:? Greater than 300 mg/L [facility] (ETOH) [id number] 02:40:00 Test Item Value Reference Range Interpretation Comments ALCOHOL (test code = <10 mg/dL 3094590624) GEORGIE (test code = GEORGIE) <10 Ypculjsc82-581 Toxic>100 Depression of SCOOTER MECHANIC>400 Fatalities Reported [facility] (NA, K, CL, CO2, Glucose, BUN, Creatinine, CA)2018-11-05 02:35:00 Test Item Value Reference Range Interpretation Comments NA (test code = 142 mmol/L 135-145 4751162311) K (test code = 3.5 mmol/L 3.5-5 7220149384) CL (test code = 107 mmol/L 98-108 9625937308) CO2 TOTAL (test code = 25 mmol/L 23-31 2191245202) AGAP (test code = 2-16 4757538547) BUN (test code = 12 mg/dL 7-23 5003308013) GLUCOSE (test code = 90 mg/dL 70-110 8347647520) CREATININE (test code 0.77 mg/dL 0.6-1.25 = 1893991710) CALCIUM (test code = 9.3 mg/dL 8.6-10.6 9740573911) eGFR Calculation mL/min/1.73m2 (Non-) (test code = 7130436886) eGFR Calculation mL/min/1.73m2 () (test code = 4054337667) GEORGIE (test code = GEORGIE) Association of [...] or urine or abnormalities in imaging tests). [facility] (ALB, T.PRO, BILI T, BU/BC, ALT, AST, ALK PHOS)2018-11-05 02:35:00 Test Item Value Reference Range Interpretation Comments TOTAL BILI (test code = 1124251170) 1.0 mg/dL 0.1-1.1 BILI UNCON (test code = 6806111985) 0.8 mg/dL 0.1-1.1 BILI CONJ (test code = 5159799788) 0.0 mg/dL 0-0.3 T PROTEIN (test code = 4564220541) 7.0 g/dL 6.3-8.2 ALBUMIN (test code = 6889927730) 4.4 g/dL 3.5-5 ALK PHOS (test code = 7967562574) 71 U/L 34-122 ALT(SGPT) (test code = 3812304828) 39 U/L 9-51 AST(SGOT) (test code = 3707746970) 40 U/L 13-40 Lab Interpretation (test code = Normal 81486-8) [facility] WITH [id number] 02:10:00 Test Item Value Reference Range Interpretation Comments WBC (test code = See_Comment [Automated 8466-2) message] The sy stem which generated this result transmitted reference range : 4.20 - 10.70 10*3/?L. The reference range was not used to interpret this result as normal/abnormal . RBC (test code = See_Comment [Automated 666-8) message] The sy stem which generated this [...] RDW-SD (test code = 46.3 fL 38.5-51.6 65322-6) RDW-CV (test code = 13.1 % 12.1-15.4 788-0) PLT (test code = See_Comment [Automated 777-3) message] The sy stem which generated this result transmitted reference range : 150 - 328 10*3/ ?L. The reference r johan was not used to interpret this result as normal/abnormal . MPV (test code = 9.9 fL 9.8-13 57287-2) NRBC/100 WBC (test See_Comment [Automat ed code = 3069979229) message] The system which generated this result transmitted reference range : 0.0 - 10.0 /100 WBCs. The refer ence range was not u sed to interpret th is result as normal/abnormal . NRBC x10^3 (test code <0.01 See_Comment [Auto mated = 0240711822) message] The s ystem which generated this result transmitted reference range : 10*3/?L. The reference range was not used to interpret this result as normal/abnormal . GRAN MAT (NEUT) % 50.8 % (test code = 770-8) IMM GRAN % (test code 0.60 % = 6039996606) LYMPH % (test code = 33.8 % 736-9) MONO % (test code = 14.4 % 5905-5) EOS % (test code = 0.0 % 713-8) BASO % (test code = 0.4 % 706-2) GRAN MAT x10^3(ANC) 2.62 10*3/uL 1.99-6.95 (test code = 8552012768) IMM GRAN x10^3 (test 0.03 10*3/uL 0-0.06 code = 6038792106) LYMPH x10^3 (test code 1.74 10*3/uL 1.09-3.23 = 731-0) MONO x10^3 (test code 0.74 10*3/uL 0.36-1.02 = 742-7) EOS x10^3 (test code = <0.03 0.06-0.53 L 711-2) BASO x10^3 (test code <0.03 0.01-0.09 = 704-7) Lab Interpretation Abnormal (test code = 17457-0) [facility] [id number] 13:14:00 Test Item Value Reference Range Interpretation [...] ars ofage have not been validated by e MDRD study and shoul d be interpretedwith caution.eGFR Re sult Interpretation: eGFR > or = 60 is in t he Normal RangeeGF R < 60 may mean kidney diseaseeGFR < 1 5 may mean kidney failureRange s recommended by the National Kidney Foundation,http ://nkd ep.nih.gov [id number] 13:09:00 Test Item Value Reference Range Interpretation [...] g/dL 0.00-0.01 N code = ETOHU) Urinalysis Njhdhhnj7537-35-66 12:59:00 Test Item Value Reference Range Interpretation Comments Color (test code = Yellow Yellow,Straw,Pl N COLOR) yellow Clarity (test code = Clear Clear N CLAR) Specific Henderson (test 1.027 1.001-1.035 N code = SPGR) [...] code = Few /HPF BACT) CBC with Chisargqgnqx7937-37-58 12:42:00 Test Item Value Reference Range Interpretation [...] code = ALYMPH) 2.3 K/cumm 0.5-4.6 N Ulster Abs (test code = AMONO) 0.6 K/cumm 0.0-1.2 N Eos Abs (test code = AEOS) 0.09 K/cumm 0.00-0.74 N Baso Abs (test code = ABASO) 0.0 K/cumm 0.00-0.21 N Hepatic Function Lflls3751-95-51 18:55:00 Test Item Value Reference Range Interpretation [...] = ALT) 47 U/L 1-41 H HIV Zswfj6379-71-16 12:45:00 Test Item Value Reference Range Interpretation Comments HIV 1/2 Antibody Non-Reactive Non-Reactive N HIV1/2 Anti body screen (test code = result indicate s the HIV1/2AB) absence of HIV1 and SVH3bsghrviaz.H owever, A Non-Reactive screen result does not [...] HIV RNA Quantit ative is recommended. RPR, [id number] 21:30:00 Test Item Value Reference Range Interpretation Comments RPR (test code = RPR) Non-Reactive Non-Reactive N Thyroid Stimulating Hormone (TSH)2017-03-17 09:55:00 Test Item Value Reference Range Interpretation Comments TSH (test code = TSH) 0.94 mIU/mL 0.270-4.200 N Lipid Ztzllza6551-39-38 09:53:00 Test Item Value Reference Range Interpretation Comments Cholesterol (test 124 mg/dL 0-200 N code = CHOL) Triglycerides (test 61 mg/dL 9-200 N code = TRIG) HDL (test code = 47 mg/dL 40-60 N HDL) Chol/HDL (test code 2.6 Ratio 0.0-5.0 N = CHOLPHDL) LDL, Calculated 65 0-130 N (NOTE)RISK O F HEART (test code = LDLC) DISEASEPu blished by [place] Heart AssociationAnal yte Optim al Boderline Increased RiskC HOL <200 200-239 >240TRI G <150 150-199 >200HDL Male: >60 <40HDL Female: >60 <50 LDL < 100 130-15 9 >160 LDL NEAR OPTIMAL IS 100- 129 VLDL (test code = 12 mg/dL 5-40 N VLDL) LDL/HDL (test code = 1 LDLPHDL) Urinalysis Isncmmbc1419-40-63 15:09:00 Test Item Value Reference Range Interpretation Comments Color (test code = Yellow Yellow,Straw,Pl N COLOR) yellow Clarity (test code = Clear Clear N CLAR) Specific Henderson (test 1.028 1.001-1.035 N code = SPGR) [...] = 0-1 Granular /HPF CASTS) Comprehensive Metabolic Wpzof4785-48-03 14:24:00 Test Item Value Reference Range Interpretation [...] ars ofage have not been validated by e MDRD study and shoul d be interpretedwith caution.eGFR Re sult Interpretation: eGFR > or = 60 is in t he Normal RangeeGF R < 60 may mean kidney diseaseeGFR < 1 5 may mean kidney failureRange s recommended by the National Kidney Foundation,http ://nkd ep.nih.gov [id number] 14:20:00 Test Item Value Reference Range Interpretation [...] 0.00-0.01 N code = ETOHU) CBC with Wourxtwevwun9515-14-37 14:08:00 Test Item Value Reference Range Interpretation [...] code = ALYMPH) 2.2 K/cumm 0.5-4.6 N Ulster Abs (test code = AMONO) 0.9 K/cumm 0.0-1.2 N Eos Abs (test code = AEOS) 0.06 K/cumm 0.00-0.74 N Baso Abs (test code = ABASO) 0.0 K/cumm 0.00-0.21 N
[2021-06-10 21:20] LABS: Absolute Lymphocytes (CBC) 2.4 K/uL (0.7-4.9); Hematocrit 44.5 % (39.6-49.0); Lymphocytes % 33.2 % (15.3-44.8); MPV 7.7 fL (7.6-11.3); RBC Red Blood Cell Count 4.84 M/uL (4.33-5.43)
[2021-06-10 21:23] LABS: Protime INR 0.96
[2021-06-10 21:38] LABS: ALT/SGPT 58 U/L (12-78); AST/SGOT 64 U/L (15-37); Albumin 3.9 g/dL (3.4-5.0); Alkaline Phosphatase 81 U/L (45-117); BUN Blood Urea Nitrogen 10 mg/dL (7-18); Bicarbonate 27 mmol/L (21-32); Bilirubin Direct 0.2 mg/dL (0-0.2); Bilirubin Total 0.5 mg/dL (0.2-1.0); Glucose Level 89 mg/dL (74-106); Lipase 60 U/L (73-393); Magnesium 2.1 mg/dL (1.8-2.4); NT PRO-BNP 14 pg/mL (<125); Potassium 3.5 mmol/L (3.5-5.1); Protein, Total 7.5 g/dL (6.4-8.2); Sodium Level 139 mmol/L (136-145); Troponin High Sensitivity 5.2 pg/mL (<58.9)
[2021-06-10 21:44] LABS: Urine Blood Negative (Negative); Urine Glucose Negative (Negative); Urine Protein Negative (Negative); Urine pH 6.5 (5.0-7.0)
[2021-06-10 22:07] LABS: Urine Bacteria <20 /HPF (NONE SEEN); Urine RBC <5 /HPF (NONE SEEN)
[2021-06-10 22:34] LABS: Barbiturates NEGATIVE (NEGATIVE); Benzodiazepines NEGATIVE (NEGATIVE); Cocaine NEGATIVE (NEGATIVE); METHAMPHETAM POSITIVE (NEGATIVE); Methadone NEGATIVE (NEGATIVE); Opiates POSITIVE (NEGATIVE); Phencyclidine NEGATIVE (NEGATIVE); THC Cannibis NEGATIVE (NEGATIVE)
--- NOTE | 2021-06-10 22:50 | RAD REPORT ---
EXAM DESCRIPTION: RAD - Chest Single View - 06/10/2021 10:09 pm CLINICAL HISTORY: CHEST PAIN COMPARISON: Chest Single View dated 05/17/2021; Chest Single View dated 05/06/2021; Chest Single View d ated 06/30/2020; Chest Single View dated 11/02/2018 FINDINGS: Lines: None. Lungs: No evidence of edema or pneumonia. Pleural: No significant pleural effusions or pneumothorax. Cardiac: The heart size is within normal limits. Bones: No acute fractures. Other: IMPRESSION: No acute cardiopulmonary disease.
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
[2021-06-11 05:12] VITALS: TEMP 99.7; O2SAT 100
[2021-06-11 05:14] VITALS: BP 128/80
--- NOTE | 2021-06-11 10:18 | RAD REPORT ---
EXAM DESCRIPTION: CT - Angio Aorta For Dissection - 06/11/2021 6:53 am CLINICAL HISTORY: 35 years, Male, chest pain, abdomen pain COMPARISON: None. TECHNIQUE: Multiple transaxial tomograms from the thoracic and abdominal aorta from the lung apex ba ses to the ischial tuberosities performed before and after the administration of large bolus of IV co ntrast for complete opacification of the thoracic, abdominal aorta and iliac arteries utilizing 3 mm slice thickness at 3 mm interval reconstruction. 2-D and 3-D multiplanar reformats, volume rendering technique and maximum intensity projection images were generated and reviewed. This exam was performed according to our departmental dose-optimization protocol, which includes auto mated exposure control, adjustment of the mA and/or kV according to patient size and/or use of iterat josseline reconstruction technique. FINDINGS: Thoracic aorta: The thoracic aorta demonstrate to be within normal limits. There is no evidence for aneurysm/or disse ction. The ascending thoracic measured 2.5 x 2.4 cm on image 41, the aortic arch measured 2.6 cm on i mage 32. The descending thoracic aorta measured 1.9 x 1.9 cm on image 64. There is normal takeoff of the great vessels with normal branching pattern. No evidence for significant stenosis/or proximal occ lusion. Abdominal aorta: The abdominal aorta demonstrate to be within normal limits. There is no evidence for dissection and/o r aneurysm. The proximal aspect of the abdominal aorta measured 1.8 x 1.8 cm on image 99, at the prox imal aspect of the abdominal aorta measured 1.3 x 1.4 cm on image 112, at the distal portion of the a bdominal aorta measured 1.2 x 1.1 cm on image 135. There is normal branching pattern of the iliac art eries with no evidence for stenosis and/or significant abnormalities. The celiac trunk, superior mese nteric artery and inferior mesenteric artery demonstrate to be patent with no evidence for significan t stenosis/or major occlusions. There are single right renal artery and dual supply within the left r enal artery. Chest: The lung parenchyma demonstrate demonstrate to be clear. No significant pulmonary nodules/or masses i dentified. There is no evidence for pneumothorax. The trachea mainstem bronchus demonstrate to be unremarkable. There is no pleural/or pericardial effu sions. The heart is not enlarged. There are not no coronary artery calcifications. The central pulmonary art eries demonstrate no significant major filling defects. There is no significant mediastinal and/or hilar lymphadenopathy. The axillary regions demonstrate to be clear. The bone windows demonstrate no significant skeletal lesions. Abdomen and pelvis: The liver demonstrated presence of a medial segment dome of the liver left hepatic lobe cyst measurin g 0.9 cm on image 74/225. Otherwise the liver, gallbladder, spleen, adrenal glands, pancreas demonstr ate to be unremarkable. The kidneys demonstrate normal uptake of contrast media. There is no evidence for nephrolithiasis/or hydronephrosis. The unopacified stomach, small bowel and large bowel demonstrate to be unremarkable. There is mild fe wero stasis. The appendix is normal. The urinary bladder demonstrate minimal urinary bladder wall thickening slightly more pronounced left side than right perhaps related to underdistention. There is no evidence for retroperitoneal lymphad enopathy. There is no evidence for ascites. The bone windows demonstrate no significant skeletal lesi ons. IMPRESSION: No evidence for aortic aneurysm or dissection. Minimal urinary bladder wall thickening slightly more pronounced left side than right perhaps related to underdistention, infection cannot be excluded correlate with urinalysis. Mild fecal stasis. Otherwise unremarkable CT scan of the chest, abdomen and pelvis with contrast. Electronically signed by: Jet Fowler MD 06/10/2021 11:49 PM CDT Due to temporary technical issues with the PACS/Fluency reporting system, reports are being signed by the in house radiologist without review as a courtesy to ensure prompt reporting. The interpreting r adiologist is fully responsible for the content of the report.
--- NOTE | 2021-06-12 13:00 | EKG ---
Test Date: 2021-06-10 Test Time: 20:13:29 [employer]: [facility] MEASUREMENT RESULTS: Intervals: Rate: 111 HI: 136 QRSD: 84 QT: 306 QTc: 416 [place]: P: 36 HI: 136 QRS: 78 T: 37 INTERPRETIVE STATEMENTS: Sinus tachycardia Otherwise normal ECG Compared to ECG 06/01/2021 00:17:56 Sinus rhythm no longer present Electronically Signed On 06-12-21 12:57:47 CDT by Cj Anderson
== END 2021-06-11 01:09 | disposition home or self-care (01) ==
LOC: ER 20:06
DX: R07.9 Chest pain, unspecified (principal); R10.9 Unspecified abdominal pain; T43.625A Adverse effect of amphetamines, initial encounter; F20.9 Schizophrenia, unspecified; Z88.5 Allergy status to narcotic agent; Z88.8 Allergy status to other drugs, medicaments and biological substances
CPT/HCPCS: 93005; 85025; 80048; 36415; 83735; 85610; 85379; 80076; 84484; 83690; 83880; 80307; 71275; 74175; 71045; 99283; Q9967; 81003; 81015

== ENCOUNTER 2021-06-12 23:21 | Emergency (ER) | payer OTHER ==
--- OUTSIDE RECORDS SUMMARY | 2021-06-12 23:27 | XMS REPORT | Continuity of Care Document ---
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 [facility] 2021-06-11 2021-06-11 Outpatient GC_[facility]_Tod PRIV PRIV [id number] [facility] 09:50:00 09:50:00 d_J [id number] Medica l 2021-06-06 2021-06-06 Outpatient GC_[facility]_Tod PRIV PRIV [id number] [facility] 01:01:00 01:01:00 d_J [id number] Medica l 2021-06-05 2021-06-05 Outpatient GC_[facility]_Tod PRIV PRIV [id number] [facility] 03:19:00 03:19:00 d_J [id number] Medica l 2021-06-04 2021-06-04 Outpatient GC_BAHC_Tod PRIV PRIV [id number] [facility] 01:42:00 01:42:00 d_J [id number] Medica l 2021-05-30 2021-05-30 Outpatient GC_BAHC_Tod PRIV PRIV [id number] [facility] 11:28:00 11:28:00 d_J [id number] Medica l 2021-05-28 2021-05-28 Outpatient GC_BAHC_Tod PRIV PRIV [id number] [facility] 01:25:00 01:25:00 d_J [id number] Medica l 2021-05-27 2021-05-27 Outpatient GC_BAHC_Tod PRIV PRIV [id number] [facility] 03:48:00 03:48:00 d_J [id number] Medica l 2021-05-24 2021-05-24 Outpatient GC_BAHC_Spa PRIV PRIV [id number] [facility] 04:32:00 04:32:00 Samuel [id number] Medica l 2021-05-07 2021-05-08 Outpatient X OBED NEJUAQUIN [facility] [id number] Univers 08:26:00 04:30:00 MARTIN pinto [facility] 2021-05-07 2021-05-08 Emergency PardeepMelloTono [facility] [id number] Univers 08:26:00 04:30:00 Martin Clay 350.1.13.10 blair [facility] 4.2.7.2.686 [facility] [id number] [place] [address] Branch 2021-03-28 2021-03-28 [facility] [id number] [place] 00:00:00 00:00:00 CHRISTOPHER He alth 2021-03-20 2021-03-20 Outpatient MAHAN, PASCUAL [facility] [id number] [place] 00:00:00 00:00:00 [facility] 2020-12-30 2021-02-28 [facility] D[facility] [id number] [place] 22:32:00 18:41:00 BUSHRA Booker 2020-12-30 2021-02-28 [facility] [id number] [place] 22:32:00 18:41:00 BUSHRA Heal 2021-02-15 2021-02-15 Inpatient [facility] [id number] [place] 10:50:13 11:18:57 Health 2021-02-14 2021-02-14 Inpatient [facility] [id number] [place] 16:43:15 18:41:33 Health 2021-02-14 2021-02-14 Inpatient [facility] [id number] [place] 07:24:16 09:18:07 Health 2021-01-31 2021-01-31 Inpatient [facility] [id number] [place] 01:03:14 03:25:48 Health 2021-01-25 2021-01-25 Inpatient [facility] [id number] [place] 01:35:50 03:05:16 Health 2021-01-23 2021-01-23 Inpatient [facility] [id number] [place] 02:10:17 04:59:36 Health 2021-01-21 2021-01-21 Inpatient VIKASH, [facility] [id number] [place] 15:43:59 16:18:10 VANE maldonado 2021-01-13 2021-01-13 Inpatient [facility] [id number] [place] 16:20:12 17:12:27 Health 2021-01-07 2021-01-07 Inpatient [facility] [id number] [place] 18:28:43 18:28:46 Health 2021-01-07 2021-01-07 Inpatient [facility] [id number] [place] 00:12:42 01:07:25 Health 2021-01-04 2021-01-04 Inpatient [facility] [id number] [place] 17:11:58 18:14:36 Health 2021-01-04 2021-01-04 Inpatient VERA, [facility] [id number] [place] 13:40:49 15:55:44 [facility] 2021-01-03 2021-01-03 Inpatient [facility] [id number] [place] 17:58:59 17:59:03 [facility] 2021-01-01 2021-01-01 Inpatient [facility] [id number] [place] 16:44:03 16:44:07 [facility] 2021-01-01 2021-01-01 Inpatient CARTER, [facility] [id number] [place] 08:36:00 09:12:12 [facility] 2021-01-01 2021-01-01 Inpatient [facility] [id number] [place] 07:46:21 08:35:30 [facility] 2021-01-01 2021-01-01 Inpatient YULI, [facility] [id number] [place] 02:09:24 03:31:22 [facility] 2020-12-31 2020-12-31 Inpatient MAREK, [facility] [id number] [place] 05:17:16 06:34:53 BUSHRA [facility] 2020-12-31 2020-12-31 Inpatient [facility] [id number] [place] 01:50:33 06:34:15 [facility] 2020-12-31 2020-12-31 Inpatient [facility] [id number] [place] 03:50:31 04:54:13 [facility] 2020-12-31 2020-12-31 Inpatient [facility] [id number] [place] 01:43:22 04:38:47 [facility] 2020-12-30 2020-12-30 Emergency [facility] [id number] [place] 22:46:36 23:04:47 [facility] 2020-12-30 2020-12-30 Emergency [facility] [id number] [place] 22:46:20 23:04:03 [facility] 2020-12-30 2020-12-30 Emergency [facility] [id number] [place] 22:47:41 23:03:11 [facility] 2020-12-30 2020-12-30 Emergency LAKHWINDER, [facility] [id number] [place] 00:00:00 00:00:00 [facility]-20 2020-12-20 Emergency EM Uziel, HCACR HCACR [id number] [facility] 06:26:00 16:34:[address] [place] [address] 2020-12-20 2020-12-20 Emergency EM Uziel, HCACR MALIKA [id number] [facility] 06:26:00 16:34:00 Erich [id number] [facility] 2020-11-15 2020-11-16 Emergency Eusebia Bland 1.2.840 .1 [id number] Methodi 00:55:00 14:35:00 William Nunes [id number] 84 8 Mio Sorensen 3.430.2.7 Hospita .3.480231 l .8 2020-11-14 2020-11-14 Emergency Manju 1.2.840.1 [id number] Methodi 15:47:00 16:03:00 William Langston [address].1.[address] 3.430.2.7 Hospit a .3.808210 l .8 2020-10-22 2020-10-24 [facility] Dennis Wynn 1.2.840.1 [id number] Methodi 16:52:00 16:26:00 Encounter Pepito Lauren 42129.1.[address] Jessica Awad 3.430.2.7 Hospita CaLashaun dunbar .3.698976 l .8 2020-10-16 2020-10-16 Emergency EM Crismon, HCACR MALIKA [id number] [facility] 00:20:00 08:00:00 Danish [id number] [facility] 2020-10-06 2020-10-06 Emergency EM Zia, HCAKW MALIKA [id number] [facility] 01:57:00 20:14:00 Darlene [id number] [facility] 2020-09-05 2020-09-05 Emergency EM Michael Montero HCAMIMI DALY [id number] [facility] 11:17:00 18:22:00 [id number] [facility] 2020-09-03 2020-09-03 Emergency EM Pardo, HCACR MALIKA [id number] [facility] 03:35:00 15:00:00 Farhad [id number] [facility] 2020-09-02 2020-09-03 Emergency EM Michael Montero HCACR MALIKA [id number] [facility] 23:16:00 01:53:00 [id number] [facility] 2020-08-11 2020-08-12 Emergency EM Karri HCACR MALIKA [id number] [facility] 11:12:00 00:40:00 Naim [id number] [facility] 2020-07-12 2020-07-[address] [facility] 1.2.602.701 [id number] [facility] 03:16:00 05:05:00 Michael Nichols 350.1.13.10 ity [place] 4.2.7.2.686 [facility] [id number] [address] 2020-07-12 2020-07-[address] [facility] 1.2.239.020 [id number] 03:16:00 05:05:00 Michael Nichols 350.1.13.[address] [place] [address] [place] [address] [id number] 2020-07-12 2020-07-12 Emergency X [facility] ERT [id number] Univers 03:16:00 03:16:00 MICHAEL pinto [facility] 2019-02-21 2019-02-21 Outpatient [facility] [id number] [place] 00:00:00 00:00:00 Health 2019-02-19 2019-02-19 Emergency [facility] [id number] [facility] 07:23:00 07:23:00 [facility] 2019-02-01 2019-02-01 Outpatient [facility] [id number] [place] 22:11:49 22:11:49 [facility] 2018-11-04 2018-11-05 Emergency [facility] [id number] [id number] Univers 20:38:48 05:13:00 Brown Nichols 350.1.13.10 i ty of [place] 4.2.7.2.686 [facility] [id number] [address] 2018-11-04 2018-11-05 Emergency Andrés [facility] [id number] 20:38:48 05:13:00 Brown Nichols 350.1.13.10 [place] 4.2.7.2.686 [place] [id number] 2018-10-18 2018-10-18 Emergency [facility] [id number] [place] 06:08:40 06:08:40 [facility] 2017-04-02 2017-04-02 Outpatient [facility] [id number] [place] 00:00:00 00:00:00 [facility] 2017-03-29 2017-03-29 Emergency [facility] [id number] [place] 00:00:48 00:00:48 [facility] 2017-03-22 2017-03-22 [id number] 11:46:00 11:46:00 [facility] 2017-03-16 2017-03-20 [facility] [id number] 20:46:00 13:41:00 Jonathon DIOP [facility] 2017-01-26 2017-01-26 Outpatient [facility] [id number] [facility] 00:00:00 00:00:00 Results Test Description Test Time Test Comments Results Result Comments Source TROPONIN I 2021-05-08 04:00:37 Test Item Value Reference Range Interpretation Comme nts TROPONIN I (test code = 0.000 ng/mL See_Comment [Au tomated message] The [id number]) system which ge nerated this result tra [...] biotin. Lab Interpretation Normal (test code = 01988-3) [id number] 00:46:10 Test Item Value Reference Range Interpretation Comments ESR (test code = See_Comment H [Automated message] [id number]) The system Trover generated this result transmitted ref erence range: 0 - 10 m m/HR. The reference r johan was not used to interpret this result as normal/abnor mal. Lab Interpretation (test Abnormal code = 81743-9) [facility] HEMOGLOBIN (A1C)2021-05-07 20:23:40 Test Item Value Reference Range Interpretation Comments HGB A1C (test code = 5.3 % 4.0-5.7 4548-4) GEORGIE (test code = GEORGIE) Reference RangesNormal: <5.7%Prediabetes: 5.7 - 6.4%Diabetes: > 6.5% Lab Interpretation (test Normal code = 29786-6) [facility]OLIC PANEL (30105)2021-05-07 16:11:59 Test Item Value Reference Range Interpretation Comments NA (test code = 139 mmol/L 135-145 7230083921) K (test code = 3.9 mmol/L 3.5-5.0 1147388271) CL (test code = 101 mmol/L 98-108 0933464059) CO2 TOTAL (test code = 23 mmol/L 23-31 9419097970) AGAP (test code = 2-16 8870021999) BUN (test code = 13 mg/dL 7-23 5230280380) GLUCOSE (test code = 92 mg/dL 70-110 8566967022) CREATININE (test code = 0.40 mg/dL 0.60-1.25 L 5481364883) TOTAL BILI (test code = 1.6 mg/dL 0.1-1.1 H 6182806939) CALCIUM (test code = 9.6 mg/dL 8.6-10.6 7800583643) T PROTEIN (test code = 7.7 g/dL 6.3-8.2 6772053926) ALBUMIN (test code = 4.6 g/dL 3.5-5.0 6071392975) ALK PHOS (test code = 91 U/L 34-122 6201518464) ALTv (test code = 24 U/L 5-50 1742-6) AST(SGOT) (test code = 31 U/L 13-40 5504375091) eGFR (test code = mL/min/1.73m2 9235972930) GEORGIE (test code = EGORGIE) Association of Glomerular Filtration Rate (GFR) and [...] tests). Lab Interpretation Abnormal (test code = 22197-1) [facility] THRMPLAS [id number] 15:52:36 Test Item Value Reference Range Interpretation Comments APTT Patient (test See_Comment [Automat ed code = 3173-2) message] The system which generated this result transmitted reference range : 23 - 38 Seconds . The reference range was not used to interpr et this result as normal/abnormal . GEORGIE (test code = GEORGIE) The [facility] patient population mean normal value for aPTT is 30 seconds. Lab Interpretation Normal (test code = 72262-3) [facility] HospitalPROTHROMBIN TIME / [id number] 15:50:30 Test Item Value Reference Range Interpretation [...] tions. Lab Interpretation (test Normal code = 61947-5) [facility] HospitalCB WITH [id number] 15:42:54 Test Item Value Reference Range Interpretation Comments WBC (test code = See_Comment [Automated 9490-2) message] The sy stem which generated this result transmitted reference range : 4.20 - 10.70 10*3/?L. The reference range was not used to interpret this result as normal/abnormal . RBC (test code = See_Comment [Automated 899-8) message] The sy stem which generated this [...] RDW-SD (test code = 44.1 fL 38.5-51.6 01535-6) RDW-CV (test code = 13.3 % 12.1-15.4 788-0) PLT (test code = See_Comment [Automated 097-3) message] The sy stem which generated this result transmitted reference range : 150 - 328 10*3/ ?L. The reference r johan was not used to interpret this result as normal/abnormal . MPV (test code = 9.7 fL 9.8-13.0 L 22954-9) NRBC/100 WBC (test See_Comment [Automat ed code = 6835152401) message] The system which generated this result transmitted reference range : 0.0 - 10.0 /100 WBCs. The refer ence range was not u sed to interpret th is result as normal/abnormal . NRBC x10^3 (test code <0.01 See_Comment [Auto mated = 5610127243) message] The s ystem which generated this result transmitted reference range : 10*3/?L. The reference range was not used to interpret this result as normal/abnormal . GRAN MAT (NEUT) % 77.6 % (test code = 770-8) IMM GRAN % (test code 0.60 % = 7119060537) LYMPH % (test code = 13.7 % 736-9) MONO % (test code = 7.7 % 5905-5) EOS % (test code = 0.2 % 713-8) BASO % (test code = 0.2 % 706-2) GRAN MAT x10^3(ANC) 7.68 10*3/uL 1.99-6.95 H (test code = 0943689049) IMM GRAN x10^3 (test 0.06 10*3/uL 0.00-0.06 code = 5579073049) LYMPH x10^3 (test code 1.35 10*3/uL 1.09-3.23 = 731-0) MONO x10^3 (test code 0.76 10*3/uL 0.36-1.02 = 742-7) EOS x10^3 (test code = <0.03 0.06-0.53 L 711-2) BASO x10^3 (test code <0.03 0.01-0.09 = 704-7) Lab Interpretation Abnormal (test code = 07609-1) [facility] Hospital[facility]ARS[facility]CoV-2 ORF1ab Resp Ql BETY+[id number] 19:38:49 Test Item Value Reference Range Interpretation Comments Hospitalized? (test Yes code = 63734-6) ICU? (test code = No 11139-8) Symptomatic as defined No by CDC? (test code = 54871-7) Employed in No Healthcare? (test code = 63952-5) Resident in a No congregate care setting (including nursing homes, residential care for people with intellectual and developmental disabilities, psychiatric treatment facilities, group homes, board and care homes, homeless group home, foster care or other): (test code = 72968-9) SARS-CoV-2 ORF1ab Resp NOT DETECTED Not Detected INTER PRETATION: No Ql BETY+probe (test detectabl e levels code = 04567-3) of SARS-CoV- 2 Coronavirus (COVID-19) were present [...] n with SARS-CoV-2 Coronavirus (COVID-19). COMMENT: This [employer] SARS-CoV-2 molecular diagnostic assay utilizes [employer] Mediated Amplification (TMA) technology to rapidly detect [...] complexity clinical laboratory testing.SARS-CoV-2 RNA Resp Ql BETY+[id number] 22:20:00 Test Item Value Reference Range Interpretation Comments Hospitalized? (test Yes code = 17030-4) ICU? (test code = No 16418-2) Symptomatic as defined No by CDC? (test code = 45963-7) Employed in Unknown Healthcare? (test code = 16318-8) Resident in a Unknown congregate care setting (including nursing homes, residential care for people with intellectual and developmental disabilities, psychiatric treatment facilities, group homes, board and care homes, homeless group home, foster care or other): (test code = 53257-2) SARS-CoV-2 RNA Resp Ql NOT DETECTED Not Detected INTER PRETATION: No BETY+probe (test code = detec table levels 61366-6) of SARS-CoV-2 Coronavirus (COVID-19) were present in [...] complexity clinical laboratory testing.SARS-CoV-2 ORF1ab Resp Ql BETY+amhya6512-08-16 14:59:31 Test Item Value Reference Range Interpretation Comments Hospitalized? (test Yes code = 94903-7) ICU? (test code = Yes 259418-2) Symptomatic as defined No by CDC? (test code = 20837-5) Employed in No Healthcare? (test code = 18364-5) Resident in a No congregate care setting (including nursing homes, residential care for people with intellectual and developmental disabilities, psychiatric treatment facilities, group homes, board and care homes, homeless group home, foster care or other): (test code = 39825-9) SARS-CoV-2 ORF1ab Resp NOT DETECTED Not Detected INTER PRETATION: No Ql BETY+probe (test detectabl e levels code = 33111-5) of SARS-CoV- 2 Coronavirus (COVID-19) were present [...] n with SARS-CoV-2 Coronavirus (COVID-19). COMMENT: This [employer] SARS-CoV-2 molecular diagnostic assay utilizes [employer] Mediated Amplification (TMA) technology to rapidly detect [...] complexity clinical laboratory testing.SARS-CoV-2 RNA Resp Ql BETY+[id number] 00:53:33 Test Item Value Reference Range Interpretation Comments Hospitalized? (test code Yes = 94374-3) ICU? (test code = No 78900-5) Symptomatic as defined No by CDC? (test code = 40121-8) Employed in Healthcare? No (test code = 06447-4) Resident in a congregate No care setting (including nursing homes, residential care for people with intellectual and developmental disabilities, psychiatric treatment facilities, group homes, board and care homes, homeless group home, foster care or other): (test code = 65643-7) ? (test code = No 92603-5) SARS-CoV-2 RNA Resp Ql DETECTED Not Detected A INTER PRETATION: This BETY+probe (test code = patie nt's sample had 55401-1) detectable RNA present for the SARS-CoV-2 Coronavirus [...] PROTEIN DIPSTICK 10 (TRACE) See_Comment A [Automa isia (test code = PROU) mg/dL message] The [...] NONE A MUCU) DRUGS OF ABUSE SCREEN [id number] 13:19:00 Test Item Value Reference Interpretation Comments [...] this result as normal/abnormal . BASIC METABOLIC [id number] 09:24:00 Test Item Value Reference Range Interpretation [...] message] (test code = Index/DL The system TodacellNDDIIME) generated this result transmit isai reference range [...] this result as normal/abnormal . HEPATIC FUNCTION [id number] 09:24:00 Test Item Value Reference Range Interpretation [...] 59 Unit/L 45-117 N code = ALKP) [id number] 09:24:00 Test Item Value Reference Range Interpretation Comments ACETAMINOPHEN (test code = ACET) <2.0 mcG/ML 10.0-30.0 L [id number] 09:24:00 Test Item Value Reference Range Interpretation Comments ALCOHOL (test code = < 3 MG/DL 0-10 N MEDICAL ALCOHOL ALC) RESULTS. SITE W PREPPED WITH BE TADINE. <10 MG/DL ARE CONSIDERED NEGA TIVE. >400 MG/DL MAY BE FATAL.RESULTS F OR MEDICAL USE ONL Y. NOT TO BE USED FOR FORENSIC PURPOSES. [id number] 07:55:00 Test Item Value Reference Range Interpretation Comments SALICYLATE (test code < 1.7 MG/DL See_Comment L RESULT <2.8 IS = SMITH) CONSIDERED NEGA TIVE FOR SALICYLATE. [Automated mess age] The system Trover generated this result transmitted ref erence range: 2.8-20.0 THER. The reference r johan was not used to interpret this result as normal/abnor mal. CBC W/AUTO [id number] 07:10:00 Test Item Value Reference Range Interpretation [...] 0.00 K/mm3 0.00-0.05 N NRBC#) ECG 12 [id number] 22:52:05 Test Item Value Reference Range Interpretation Comments Ventricular rate (test code = 253) Atrial rate (test code = 255) VA interval (test code = 266) QRSD interval [...] available-Electronica lly Signed By Doron Judge MD ([id number]) on 11/26/2020 5:52:04 PM [facility] [id number] 07:28:23 Test Item Value Reference Range Interpretation Comments Urine culture (test SEE COMMENT Bacteriu win[place] screen code = 3075127) negative. [facility] METABOLIC [id number] 09:20:00 Test Item Value Reference Range Interpretation [...] message] (test code = Index/DL The system ROKT) generated this result transmit isai reference range [...] this result as normal/abnormal . Specimen comments: [facility] NORTHEPATIC FUNCTION [id number] 09:20:00 Test Item Value Reference Range Interpretation [...] code = ALKP) Specimen comments: CCTHYROID STIMULATING [id number] 09:20:00 Test Item Value Reference Range Interpretation Comments THYROID STIMULATING HORMONE 0.619 mc IU/ML 0.340-4.820 N (test code = TSH) Specimen comments: [id number] 09:20:00 Test Item Value Reference Range Interpretation [...] change s in troponin levelscharacter istic of [place]. Specimen comments: [id number] 09:20:00 Test Item Value Reference Range Interpretation Comments ACETAMINOPHEN (test code = ACET) <2.0 mcG/ML 10.0-30.0 L Specimen comments: [id number] 09:20:00 Test Item Value Reference Range Interpretation Comments ALCOHOL (test code = < 3 MG/DL 0-10 N MEDICAL ALCOHOL ALC) RESULTS. SITE W PREPPED WITH BE TADINE. <10 MG/DL ARE CONSIDERED NEGA TIVE. >400 MG/DL MAY BE FATAL.RESULTS F OR MEDICAL USE ONL Y. NOT TO BE USED FOR FORENSIC PURPOSES. Specimen comments: [id number] 08:59:00 Test Item Value Reference Range Interpretation Comments SALICYLATE (test code < 1.7 MG/DL See_Comment L RESULT <2.8 IS = SMITH) CONSIDERED NEGA TIVE FOR SALICYLATE. [Automated mess age] The system Trover generated this result transmitted ref erence range: 2.8-20.0 THER. The reference r johan was not used to interpret this result as normal/abnor mal. Specimen comments: [facility] MET[facility]OLIC [id number] 08:55:00 Test Item Value Reference Range Interpretation [...] message] (test code = Index/DL The system Trover HEMINDEX) generated this result transmit isai reference [...] this result as normal/abnormal . Specimen comments: [facility] NORTHEPATIC FUNCTION [id number] 08:55:00 Test Item Value Reference Range Interpretation [...] code = ALKP) Specimen comments: CCTHYROID STIMULATING [id number] 08:55:00 Test Item Value Reference Range Interpretation Comments THYROID STIMULATING HORMONE 0.619 mc IU/ML 0.340-4.820 N (test code = TSH) Specimen comments: [id number] 08:55:00 Test Item Value Reference Range Interpretation [...] change s in troponin levelscharacter istic of [place]. Specimen comments: [id number] 08:55:00 Test Item Value Reference Range Interpretation Comments ACETAMINOPHEN (test code = ACET) mcG/ML 10.0-30.0 Specimen comments: [id number] 08:55:00 Test Item Value Reference Range Interpretation Comments ALCOHOL (test code = < 3 MG/DL 0-10 N MEDICAL ALCOHOL ALC) RESULTS. SITE W PREPPED WITH BE TADINE. <10 MG/DL ARE CONSIDERED NEGA TIVE. >400 MG/DL MAY BE FATAL.RESULTS F OR MEDICAL USE ONL Y. NOT TO BE USED FOR FORENSIC PURPOSES. Specimen comments: CCCBC W/AUTO [id number] 08:10:00 Test Item Value Reference Range Interpretation [...] NRBC#) Specimen comments: CC- XR CHEST 1 [id number] 03:12:00 [facility] : 1985 Sex: M FAX: Mahin Smallwood MD [phone] [place]: [facility]: [facility] FAX: Vilma Coker [phone] Patient Name: ARLINE RAO Darvin Unit No: [id number] EXAMS: CPT CODE: [id number] XR CHEST 1 V 20959 EXAM: - XR CHEST 1 V HISTORY: [...] D/T: S: 10/16/2020 (314) TATUM Mcarthur NAME: J[address] PHYS: AQUILES.Vilma [place], [place] [address] : 1985 AGE: 35 SEX: M LOC: CASSANDRA PHONE #: [phone] EXAM DATE: 10/16/2020 STATUS: REG ER FAX #: [phone] RAD NO: DC Dt: PAGE 1 Signed ReportCOVID 19 Asymptomatic IH [id number] 06:58:00 Test Item Value Reference Range Interpretation Comments COVID 19 Asymptomatic IH AG (test POSITIVE Negative A code = COVNONPUIAG) BASIC METABOLIC [id number] 04:22:00 Test Item Value Reference Range Interpretation [...] 8.3 mg/dL 8.4-10.2 L CA) LIVER FUNCTION [id number] 04:22:00 Test Item Value Reference Range Interpretation [...] U/L 38-126 N (test code = ALKP) [id number] 04:22:00 Test Item Value Reference Range Interpretation Comments ALCOHOL (test code = < 10 mg/dL <10 ALC) ~~~~~~~~~~~~~~~ ~~~~~~~ ~~~~~~~~~~~~~~~ ~~~~~~~ ~~~~~~ RESU LTS ARE TO BE USED FOR MEDICAL PURPOSES ONLY.F OR LEGAL PURPOSES THE SPECIMEN MUST B E COLLECTED BY A CHAINOF CUSTODY. LEGAL TESTING IS NOT PERFORME D BY THIS FACILITY. ~~~~~~~~~~~~~~~ ~~~~~~~ ~~~~~~~~~~~~~~~ ~~~~~~~ ~~~~~~ CBC W/AUTO [id number] 04:08:00 Test Item Value Reference Range Interpretation [...] x10 3/uL 0.0-0.1 N Coronavirus 2019 nCoV [id number] 17:19:00 Test Item Value Reference Range Interpretation Comments Coronavirus 2019 nCoV Bedside (test Negative Neg code = [id number]) [id number] 13:14:00 Test Item Value Reference Range Interpretation Comments SALICYLATE (test code < 1.7 MG/DL See_Comment L RESULT <2.8 IS = SMITH) CONSIDERED NEGA TIVE FOR SALICYLATE. [Automated mess age] The system Trover generated this result transmitted ref erence range: 2.8-20.0 THER. The reference r johan was not used to interpret this result as normal/abnor mal. BASIC METABOLIC [id number] 13:03:00 Test Item Value Reference Range Interpretation [...] message] (test code = Index/DL The system ROKT) generated this result transmit isai reference range [...] this result as normal/abnormal . HEPATIC FUNCTION [id number] 13:03:00 Test Item Value Reference Range Interpretation [...] 87 Unit/L 45-117 N code = ALKP) [id number] 13:03:00 Test Item Value Reference Range Interpretation Comments ACETAMINOPHEN (test code = ACET) <2.0 mcG/ML 10.0-30.0 L [id number] 13:03:00 Test Item Value Reference Range Interpretation Comments ALCOHOL (test code = < 3 MG/DL 0-10 N MEDICAL ALCOHOL ALC) RESULTS. SITE W PREPPED WITH BE TADINE. <10 MG/DL ARE CONSIDERED NEGA TIVE. >400 MG/DL MAY BE FATAL.RESULTS F OR MEDICAL USE ONL Y. NOT TO BE USED FOR FORENSIC PURPOSES. DRUGS OF ABUSE SCREEN [id number] 12:38:00 Test Item Value Reference Interpretation Comments [...] are available. Clin ical consideration andprofessional judgement shoneeraj d be applied to any drug ofabuse test re sult, particularly wh en preliminary positiveresults are used. [Automate d message] The sy stem which generated this result transmit isai reference range : <25 NG/ML. The refe rence range was not u sed to interpret this result as normal/abnormal . BASIC METABOLIC [id number] 12:37:00 Test Item Value Reference Range Interpretation [...] this result as normal/abnormal . HEPATIC FUNCTION [id number] 12:37:00 Test Item Value Reference Range Interpretation [...] 87 Unit/L 45-117 N code = ALKP) [id number] 12:37:00 Test Item Value Reference Range Interpretation Comments ACETAMINOPHEN (test code = ACET) mcG/ML 10.0-30.0 [id number] 12:37:00 Test Item Value Reference Range Interpretation Comments ALCOHOL (test code = < 3 MG/DL 0-10 N MEDICAL ALCOHOL ALC) RESULTS. SITE W PREPPED WITH BE TADINE. <10 MG/DL ARE CONSIDERED NEGA TIVE. >400 MG/DL MAY BE FATAL.RESULTS F OR MEDICAL USE ONL Y. NOT TO BE USED FOR FORENSIC PURPOSES. CBC W/AUTO [id number] 12:02:00 Test Item Value Reference Range Interpretation [...] code = 0.00 K/mm3 0.00-0.05 N NRBC#) [id number] 23:33:00 Test Item Value Reference Range Interpretation [...] change s in troponin levelscharacter istic of [place]. B-TYPE NATRIURETIC [id number] 19:24:00 Test Item Value Reference Range Interpretation Comments B-TYPE NATRIURETIC PEPTIDE < 30.00 PG/ML 0.00-100.00 N (test code = BNP) URINALYSIS [id number] 15:43:00 Test Item Value Reference Range Interpretation [...] 0-3 RBCU) PENDING RECEIPT OF SPECIMEN PER a.ST.VT15 AT 08/11/20 1302DRUGS OF ABUSE SCREEN [id number] 15:43:00 Test Item Value Reference Interpretation Comments [...] A MUCU) PENDING RECEIPT OF SPECIMEN PER a.[facility].VT15 AT 08/11/20 1302DRUGS OF ABUSE SCREEN [id number] 15:43:00 Test Item Value Reference Interpretation Comments [...] HAND 3 + V LT 2020-08-11 13:43:00 [facility] : 1985 Sex: M FAX: Lan Agee MD [phone] [place]: E St: PRE Patient Name: ARLINE RAO Unit No: [id number] EXAMS: CPT CODE: [id number] XR HAND 3 + V LT [address] EXAM: - XR HAND 3 + V [...] CC: Lan Cooper MD Dictated Date/Time: 08/11/2020 (0913)Technologist: Damaris Martinez Transcribed Date/Time: 08/11/2020 (5063) By: [email or web address] Orig Print D/T: S: 08/11/2020 (4316) [facility] [place] NAME: EDMUND RAO [address] PHYS: Lan Dykes [place], [place] [address] : 1985 AGE: 34 SEX: M LOC: B.ERS PHONE #: [phone] EXAM DATE: 08/11/2020 STATUS: PRE ER FAX #: [phone] RAD NO: DC Dt: PAGE 1 Signed Report- XR CHEST 1 [id number] 13:41:00 [facility] : 1985 Sex: M FAX: Lan Agee MD [phone] [place]: St: PRE Patient Name: ARLINE RAO Unit No: [id number] EXAMS: CPT CODE: [id number] XR CHEST 1 V 71345 EXAM: - XR CHEST 1 V Location [...] By: [email or web address] Orig Print D/T: S: 08/11/2020 (1128) TATUM Mcarthur NAME: ARLINE RAO [address] [place] [address] Blvd PHYS: Lan Mun[place], [place] [address] : 1985 AGE: 34 SEX: M LOC: KarenBANDAR PHONE #: [phone] EXAM DATE: 08/11/2020 STATUS: PRE ER FAX #: [phone] RAD NO: DC Dt: PAGE 1 Signed ReportCOMPREHENSIVE METABOLIC [id number] 12:50:00 Test Item Value Reference Range Interpretation [...] (test code = MG Index/DL The system Trover HEMINDEX) generated this result transmit isai reference [...] to interpret this result as normal/abnormal . [id number] 12:50:00 Test Item Value Reference Range Interpretation [...] change s in troponin levelscharacter istic of [place]. [id number] 12:50:00 Test Item Value Reference Range Interpretation Comments ACETAMINOPHEN (test code = ACET) < 2.0 mcG/ML 10.0-30.0 L [id number] 12:50:00 Test Item Value Reference Range Interpretation Comments ALCOHOL (test code = <3 MG/DL 0-10 N MEDICAL ALCOHOL RESULTS. ALC) SITE WAS PREPPE D WITH BETADINE. <10 MG/DL ARE CONSI DERED NEGATIVE. >400 MG/DL MAY BE FATAL.RESULTS F OR MEDICAL USE ONL Y. NOT TO BE USED FOR FOR ENSIC PURPOSES. [id number] 12:39:00 Test Item Value Reference Range Interpretation Comments SALICYLATE (test code 3.1 MG/DL See_Comment N [Auto mated message] = SMITH) The system Trover generated this result transmitted ref erence range: 2.8-20.0 THER. The reference r johan was not used to interpret this result as normal/abnor mal. COMPREHENSIVE METABOLIC [id number] 12:39:00 Test Item Value Reference Range Interpretation [...] (test code = MG Index/DL The system Trover HEMINDEX) generated this result transmit isai reference [...] to interpret this result as normal/abnormal . [id number] 12:39:00 Test Item Value Reference Range Interpretation [...] change s in troponin levelscharacter istic of [place]. [id number] 12:39:00 Test Item Value Reference Range Interpretation Comments ACETAMINOPHEN (test code = ACET) < 2.0 mcG/ML 10.0-30.0 L [id number] 12:39:00 Test Item Value Reference Range Interpretation Comments ALCOHOL (test code = ALC) MG/DL 0-10 COMPREHENSIVE METABOLIC [id number] 12:34:00 Test Item Value Reference Range Interpretation [...] (test code = MG Index/DL The system Trover HEMINDEX) generated this result transmit isai reference [...] to interpret this result as normal/abnormal . [id number] 12:34:00 Test Item Value Reference Range Interpretation Comments TROPONIN-I (test code = TROPI) NG/ML 0.000-0.045 [id number] 12:34:00 Test Item Value Reference Range Interpretation Comments ACETAMINOPHEN (test code = ACET) < 2.0 mcG/ML 10.0-30.0 L [id number] 12:34:00 Test Item Value Reference Range Interpretation Comments ALCOHOL (test code = ALC) MG/DL 0-10 CBC W/AUTO [id number] 12:23:00 Test Item Value Reference Range Interpretation [...] 0.00 K/mm3 0.00-0.05 N NRBC#) CBC WITH [id number] 09:49:19 Test Item Value Reference Range Interpretation Comments WBC (test code = See_Comment [Automated 2521-2) message] The sy stem which generated this result transmitted reference range : 4.20 - 10.70 10*3/?L. The reference range was not used to interpret this result as normal/abnormal . RBC (test code = See_Comment L [Automated 857-8) message] The sy stem which generated this [...] RDW-SD (test code = 42.9 fL 38.5-51.6 89235-0) RDW-CV (test code = 12.4 % 12.1-15.4 788-0) PLT (test code = See_Comment [Automated 777-3) message] The sy stem which generated this result transmitted reference range : 150 - 328 10*3/ ?L. The reference r johan was not used to interpret this result as normal/abnormal . MPV (test code = 9.8 fL 9.8-13.0 74697-3) NRBC/100 WBC (test See_Comment [Automat ed code = 7806290925) message] The system which generated this result transmitted reference range : 0.0 - 10.0 /100 WBCs. The refer ence range was not u sed to interpret th is result as normal/abnormal . NRBC x10^3 (test code <0.01 See_Comment [Auto mated = 1426171898) message] The s ystem which generated this result transmitted reference range : 10*3/?L. The reference range was not used to interpret this result as normal/abnormal . GRAN MAT (NEUT) % 41.9 % (test code = 770-8) IMM GRAN % (test code 0.20 % = 9876996260) LYMPH % (test code = 40.9 % 736-9) MONO % (test code = 13.7 % 5905-5) EOS % (test code = 3.1 % 713-8) BASO % (test code = 0.2 % 706-2) GRAN MAT x10^3(ANC) 1.89 10*3/uL 1.99-6.95 L (test code = 0994814447) IMM GRAN x10^3 (test <0.03 0.00-0.06 code = 0080987892) LYMPH x10^3 (test code 1.85 10*3/uL 1.09-3.23 = 731-0) MONO x10^3 (test code 0.62 10*3/uL 0.36-1.02 = 742-7) EOS x10^3 (test code = 0.14 10*3/uL 0.06-0.53 711-2) BASO x10^3 (test code <0.03 0.01-0.09 = 704-7) Lab Interpretation Abnormal (test code = 98908-6) [id number] 09:39:48 Test Item Value Reference Range Interpretation Comments TROPONIN I (test 0.002 ng/mL See_Comment [Automated code = 2143958976) message] The system which generated this result [...] ? Lab Interpretation Normal (test code = 36274-9) [facility]. METABOLIC PANEL (51941)2020-07-12 09:22:19 Test Item Value Reference Range Interpretation Comments NA (test code = 135 mmol/L 135-145 9978839089) K (test code = 3.6 mmol/L 3.5-5.0 1854626754) CL (test code = 103 mmol/L 98-108 0977320873) CO2 TOTAL (test code = 26 mmol/L 23-31 8082388776) AGAP (test code = 2-16 6008976391) BUN (test code = 17 mg/dL 7-23 8256897226) GLUCOSE (test code = 98 mg/dL 70-110 8089076481) CREATININE (test code = 0.82 mg/dL 0.60-1.25 0039888038) TOTAL BILI (test code = 1.3 mg/dL 0.1-1.1 H 8970121494) CALCIUM (test code = 8.4 mg/dL 8.6-10.6 L 3880109591) T PROTEIN (test code = 6.6 g/dL 6.3-8.2 9855992581) ALBUMIN (test code = 3.7 g/dL 3.5-5.0 5945731134) ALK PHOS (test code = 81 U/L 34-122 8087440598) ALTv (test code = 51 U/L 5-50 H 1742-6) AST(SGOT) (test code = 68 U/L 13-40 H 0050906626) eGFR (test code = mL/min/1.73m2 0218738536) GEORGIE (test code = GEORGIE) Association of [...] tests). Lab Interpretation Abnormal (test code = 73044-3) [facility] [id number] 09:22:14 Test Item Value Reference Range Interpretation Comments LIPASE (test code = 5736671158) 106 U/L 0-220 Lab Interpretation (test code = Normal 73803-8) [facility] 09:13:54 Test Item Value Reference Range Interpretation Comments APTT Patient (test See_Comment [Automat ed code = 3173-2) message] The system which generated this result transmitted reference range : 23 - 38 Seconds . The reference range was not used to interpr et this result as normal/abnormal . GEORGIE (test code = GEORGIE) The [facility] patient population mean normal value for aPTT is 30 seconds. Lab Interpretation Normal (test code = 40688-2) [facility] / [id number] 09:11:53 Test Item Value Reference Range Interpretation [...] tions. Lab Interpretation (test Normal code = 13926-2) [facility] 2019 nCoV [id number] 08:52:00 Test Item Value Reference Range Interpretation Comments Coronavirus 2019 Negative NEGATIVE This test h as been nCoV Bedside (test authorize d by FDA under code = [id number]) an EUA for use byauthorized laboratories; This [...] and/o r diagnosis of CO VID-19 under Qgfptix62 4(b)(1) of the Act, 21 U.S .C. 360bbb-3(b)(1), unless theauthorizatio n is terminated or r evoked sooner. DRUGS OF ABUSE [id number] 03:16:00 Test Item Value Reference Range Interpretation [...] poses (e.g employment testing). DRUGS OF ABUSE [id number] 02:47:00 Test Item Value Reference Range Interpretation [...] (test code = PHENCU) DRUGS OF ABUSE [id number] 02:38:00 Test Item Value Reference Range Interpretation [...] NEGATIVE (test code = PHENCU) BASIC METABOLIC [id number] 02:34:00 Test Item Value Reference Range Interpretation [...] 9.7 mg/dL 8.4-10.2 N CA) LIVER FUNCTION [id number] 02:34:00 Test Item Value Reference Range Interpretation [...] U/L 38-126 N (test code = ALKP) [id number] 02:34:00 Test Item Value Reference Range Interpretation Comments ACETAMINOPHEN (test code = ACET) <10 ug/mL 10-30 L [id number] 02:34:00 Test Item Value Reference Range Interpretation Comments SALICYLATE (test code < 1.0 mg/dL Negati ve <2.0 = SMITH) mg/dLTherapeuti c Range <20 mg/dL [id number] 02:34:00 Test Item Value Reference Range Interpretation Comments ALCOHOL (test code = < 10 mg/dL <10 ALC) ~~~~~~~~~~~~~~~ ~~~~~~~ ~~~~~~~~~~~~~~~ ~~~~~~~ ~~~~~~ RESU LTS ARE TO BE USED FOR MEDICAL PURPOSES ONLY.F OR LEGAL PURPOSES THE SPECIMEN MUST B E COLLECTED BY A CHAINOF CUSTODY. LEGAL TESTING IS NOT PERFORME D BY THIS FACILITY. ~~~~~~~~~~~~~~~ ~~~~~~~ ~~~~~~~~~~~~~~~ ~~~~~~~ ~~~~~~ URINALYSIS [id number] 02:27:00 Test Item Value Reference Range Interpretation [...] this result as normal/abnormal . CBC W/AUTO [id number] 02:18:00 Test Item Value Reference Range Interpretation [...] x10 3/uL 0.0-0.1 N DRUGS OF ABUSE [id number] 06:47:00 Test Item Value Reference Range Interpretation [...] non-medical pur poses (e.g employment testing). URINALYSIS [id number] 06:29:00 Test Item Value Reference Range Interpretation [...] this result as normal/abnormal . BASIC METABOLIC [id number] 03:28:00 Test Item Value Reference Range Interpretation [...] 9.0 mg/dL 8.4-10.2 N CA) LIVER FUNCTION [id number] 03:28:00 Test Item Value Reference Range Interpretation [...] U/L 38-126 N (test code = ALKP) [id number] 03:28:00 Test Item Value Reference Range Interpretation Comments ACETAMINOPHEN (test code = ACET) <10 ug/mL 10-30 L [id number] 03:28:00 Test Item Value Reference Range Interpretation Comments SALICYLATE (test code < 1.0 mg/dL Negati ve <2.0 = SMITH) mg/dLTherapeuti c Range <20 mg/dL [id number] 03:28:00 Test Item Value Reference Range Interpretation Comments ALCOHOL (test code = < 10 mg/dL <10 ALC) ~~~~~~~~~~~~~~~ ~~~~~~~ ~~~~~~~~~~~~~~~ ~~~~~~~ ~~~~~~ RESU LTS ARE TO BE USED FOR MEDICAL PURPOSES ONLY.F OR LEGAL PURPOSES THE SPECIMEN MUST B E COLLECTED BY A CHAINOF CUSTODY. LEGAL TESTING IS NOT PERFORME D BY THIS FACILITY. ~~~~~~~~~~~~~~~ ~~~~~~~ ~~~~~~~~~~~~~~~ ~~~~~~~ ~~~~~~ CBC W/AUTO [id number] 00:30:00 Test Item Value Reference Range Interpretation [...] 3/uL 0.0-0.1 N - CT C-SPINE W/O [id number] 23:37:00 Patient Name: ARLINE RAO Unit No: [id number] EXAMS: CPT CODE: [id number] CT C-SPINE W/O CONT 85246 Location: CT cervical spine, 08/29/19 TECHNIQUE: CT [...] Date/Time: 08/29/2019 (233) Technologist: Ara Steward CTDI: 16.41 DLP: 366.20 Trnscrpt: 08/29/2019 (2337) [email or web address] [facility] [place] NAME: ARLINE RAO [address] [place] [address] Blvd PHYS: Lan [place], [place] [address] : 1985 AGE: 33 SEX: M LOC: B.ERS PHONE #: [phone] EXAM DATE: 08/29/2019 STATUS: REG ER FAX #: [phone] RAD #: D/C DT PAGE 1 Signed Report Patient Name: ARLINE RAO Unit No: [id number] EXAMS: CPT CODE: [id number] CT C-SPINE W/O CONT 55906 <Continued> Orig Print D/T: S: 08/29/2019 (9070) TATUM Lyubov NAME: ARLINE RAO [address] [place] [address] Blvd PHYS: Lan Munroe [place]De, [place] [address] : 1985 AGE: 33 SEX: M LOC: B.ERS PHONE #: [phone] EXAM DATE: 08/29/2019 STATUS: REG ER FAX #: [phone] RAD #: D/C DT PAGE 2 Signed Report- CT HEAD/BRAIN W/O [id number] 23:33:00 Patient Name: ARLINE RAO Unit No: [id number] EXAMS: CPT CODE: [id number] CT HEAD/BRAIN W/O CONT 81966 Location: CT head, 08/29/19 COMPARISON EXAMS: None [...] CC: Lan Cooper MD Dictated Date/Time: 08/29/2019 (7088) Technologist: Ara Steward CTDI: 45.96 DLP: 757.79 Trnscrpt: 08/29/2019 (2333) t.SDR.DAS6 TATUM Mcarthur NAME: JALEN[address] PHYS: COLIN [place] [address] : 1985 AGE: 33 SEX: M LOC: B.ERS PHONE #:[phone] EXAM DATE: 08/29/2019 STATUS: REG ER FAX #: [phone] RAD #: D/C DT PAGE 1 Signed Report Patient Name: ARLINE RAO Unit No: [id number] EXAMS: CPT CODE: [id number] CT HEAD/BRAIN W/O CONT 84030 <Continued> Orig Print D/T: S: 08/29/2019 (2336) TATUM Mcarthur NAME: JALEN[address] PHYS: Lan [place] [address] : 1985 AGE: 33 SEX: M LOC: B.ERS PHONE #: [phone] EXAM DATE:08/29/2019 STATUS: REG ER FAX #: [phone] RAD #: D/C DT PAGE 2 Signed ReportCOMPREHENSIVE METABOLIC [id number] 23:28:00 Test Item Value Reference Range Interpretation [...] code = LIPINDEX) MG Index/DL CBC W/AUTO [id number] 23:07:00 Test Item Value Reference Range Interpretation [...] 0.00 K/mm3 0.00-0.05 N NRBC#) BASIC METABOLIC [id number] 14:23:00 Test Item Value Reference Range Interpretation [...] NORMAL code = LIPINDEX) Index/DL HEPATIC FUNCTION [id number] 14:23:00 Test Item Value Reference Range Interpretation [...] 68 Unit/L 45-117 N code = ALKP) [id number] 14:23:00 Test Item Value Reference Range Interpretation Comments ALCOHOL (test code = 3 MG/DL 0-10 N MEDICAL ALCOHOL RESULTS. ALC) SITE WAS PREPPE D WITH BETADINE. <10 MG/DL ARE CONSI DERED NEGATIVE. >400 MG/DL MAY BE FATAL.RESULTS F OR MEDICAL USE ONL Y. NOT TO BE USED FOR FOR ENSIC PURPOSES. BASIC METABOLIC [id number] 14:17:00 Test Item Value Reference Range Interpretation [...] 1 NORMAL = LIPINDEX) Index/DL HEPATIC FUNCTION [id number] 14:17:00 Test Item Value Reference Range Interpretation [...] TOTAL (test code Unit/L 45-117 = ALKP) [id number] 14:17:00 Test Item Value Reference Range Interpretation Comments ALCOHOL (test code = ALC) MG/DL 0-10 CBC W/O [id number] 14:04:00 Test Item Value Reference Range Interpretation [...] = 9.4 fL 7.6-10.4 N MPV) RPR [id number] 14:01:19 Test Item Value Reference Range Interpretation [...] = 12-17-2019 N Expiration Dt) Thyroid Stimulating [id number] 09:09:16 Test Item Value Reference Range Interpretation Comments TSH (test code = TSH) 0.418 mIU/mL 0.270-4.200 Lipid [id number] 08:59:32 Test Item Value Reference Range Interpretation Comments Cholesterol Total 131 mg/dL 0-200 RISK OF HE ART (test code = DISEASEPublishe d by Cholesterol Total) [employer] [employer] Giovanna lyte Optimal Borderl ine [...] being used code = LDL/HDL Ratio) in [facility] s calculation is LDL/HDL Ratio=L DL Calc/HDL Chol Thyroid Stimulating [id number] 10:03:42 Test Item Value Reference Range Interpretation Comments TSH (test code = TSH) 1.560 mIU/mL 0.270-4.200 Lipid [id number] 09:52:10 Test Item Value Reference Range Interpretation Comments Cholesterol Total 210 mg/dL 0-200 H RISK OF HE ART (test code = DISEASEPublishe d by Cholesterol Total) [employer] Giovanna lyte Optimal Borderl ine [...] is LDL/HDL Ratio=L DL Calc/HDL Chol RPR [id number] 11:37:43 Test Item Value Reference Range Interpretation Comments RPR Qual (test code = RPR Qual) Non-Reactive Non-Reactive Reactive Control (test code = Reactive Reactive Control) Weak Reactive Control (test Weak Reactive code = Weak Reactive Control) Non-Reactive Control (test code Non-Reactive = Non-Reactive Control) Lot # (test code = Lot #) [id number] N Expiration Dt (test code = 12-17-19 N Expiration Dt) Urinalysis [id number] 23:07:47 Test Item Value Reference Range Interpretation Comments UA WBC (test code = UA WBC) None Seen 0-5 UA RBC (test code = UA RBC) None Seen 0-5 UA Bacteria (test code = UA None Seen Bacteria) UA Squam Epithelial (test code = UA 0-5 Squam Epithelial) Comprehensive Metabolic [id number] 22:29:50 Test Item Value Reference Range Interpretation [...] A/G 1.7 ratio N Ratio) Comprehensive Metabolic [id number] 22:29:50 Test Item Value Reference Range Interpretation [...] the National Kidney Foundation, http://nkdep.ni h.gov Alcohol [id number] 22:29:50 Test Item Value Reference Range Interpretation Comments Ethanol Level (test 0.06 g/dL 0.00-0.01 H Intoxica isai 0.080 g/dL code = Ethanol or more Level) Ethanol Inst (test 58 N code = Ethanol Inst) Comprehensive Metabolic [id number] 22:29:50 Test Item Value Reference Range Interpretation [...] ag e have not been validated by [facility] MDRD study and should be interpreted [...] ag e have not been validated by [facility] MDRD study and should be interpreted wit h caution. eGFR R esult Interpretation: eGFR > or = 60 is in the Normal RangeeGF R < 60 may mean kid tran diseaseeGFR < 1 5 may mean kidney failure Rang es recommended by the National Kidney Foundation, http://nkdep.ni h.gov Complete Blood Count with [id number] 22:14:44 Test Item Value Reference Range Interpretation [...] code = IPF) 0 % N Automated [id number] 22:14:44 Test Item Value Reference Range Interpretation Comments Neutro Auto (test code = Neutro 72.2 % 36.0-70.0 H Auto) Lymph Auto (test code = Lymph Auto) 19.6 % 12.0-44.0 Rowan Auto (test code = Rowan Auto) 6.9 % 0.0-11.0 Eos, Auto (test code = Eos, Auto) 0.0 % 0.0-7.0 Basophil Auto (test code = Basophil 0.4 % 0.0-2.0 Auto) Neutro Absolute (test code = Neutro 6.1 x10 1.6-7.4 Absolute) Lymph Absolute (test code = Lymph 1.67 x10 .50-4.60 Absolute) Rowan Absolute (test code = Rowan .59 x10 .00-1.20 Absolute) Eos Absolute (test code = Eos 0.00 x10 0.00-0.74 Absolute) Baso Absolute (test code = Baso 0.03 x10 0.00-0.21 Absolute) IG [id number] 22:14:44 Test Item Value Reference Range Interpretation Comments IG (test code = IG) 0.9 % 0.0-5.0 IG Abs (test code = IG Abs) 0 x10 N Urine Drug [id number] 22:14:38 Test Item Value Reference Range Interpretation [...] if desired . Urinalysis with Microscopic if [id number] 21:53:48 Test Item Value Reference Range Interpretation [...] Ind?) rule GL_SJM_UA_MICRO _IN D Urine Drug [id number] 09:31:28 Test Item Value Reference Range Interpretation [...] matory test if desired . Comprehensive Metabolic [id number] 09:17:22 Test Item Value Reference Range Interpretation [...] A/G 2.1 ratio N Ratio) Comprehensive Metabolic [id number] 09:17:22 Test Item Value Reference Range Interpretation [...] National Kidney Foundation, http://nkdep.ni h.gov Comprehensive Metabolic [id number] 09:17:22 Test Item Value Reference Range Interpretation [...] ag e have not been validated by [facility] MDRD study and should be interpreted [...] not provided, and t he patient is -Jluita n, multiply by 1.2 12. If sex is not provided, and t he patient is fema le, multiply by 0.7 42. Results for pat ients <18 years of ag e have not been validated by [facility] MDRD study and should be interpreted wit h caution. eGFR R esult Interpretation: eGFR > or = 60 is in the Normal RangeeGF R < 60 may mean kid tran diseaseeGFR < 1 5 may mean kidney failure Rang es recommended by the National Kidney Foundation, http://nkdep.ni h.gov IG [id number] 09:08:10 Test Item Value Reference Range Interpretation Comments IG (test code = IG) 0.4 % 0.0-5.0 IG Abs (test code = IG Abs) 0 x10 N Complete Blood Count with [id number] 09:08:09 Test Item Value Reference Range Interpretation [...] code = IPF) 0 % N Automated Uhmkimrpshbd1605-14-30 09:08:09 Test Item Value Reference Range Interpretation Comments Neutro Auto (test code = Neutro 73.6 % 36.0-70.0 H Auto) Lymph Auto (test code = Lymph Auto) 17.3 % 12.0-44.0 Rowan Auto (test code = Rowan Auto) 8.3 % 0.0-11.0 Eos, Auto (test code = Eos, Auto) 0.1 % 0.0-7.0 Basophil Auto (test code = Basophil 0.3 % 0.0-2.0 Auto) Neutro Absolute (test code = Neutro 5.1 x10 1.6-7.4 Absolute) Lymph Absolute (test code = Lymph 1.19 x10 .50-4.60 Absolute) Rowan Absolute (test code = Rowan .57 x10 .00-1.20 Absolute) Eos Absolute (test code = Eos 0.01 x10 0.00-0.74 Absolute) Baso Absolute (test code = Baso 0.02 x10 0.00-0.21 Absolute) [facility] - DRUG SCREEN [id number] 02:56:00 Test Item Value Reference Range Interpretation Comments BENZO U (test code = Negative Negative 2409701915) EARL U (test code = Negative Negative 5114418834) AMPHET (test code = Presumptive Positive Negative A 8547011453) THC (test code = Negative Negative 0303176543) METHADONE (test code = Negative Negative 5875684515) Meth U (test code = Presumptive Positive Negative A 5539391078) OPIATES (test code = Negative Negative 5276595713) Cocaine Metabolite (test Negative Negative code = 0026379668) PROPOXY (test code = Negative Negative 8241611774) Tric U (test code = Negative Negative 9036233578) PCP (test code = Negative Negative 2276648839) OXYCOD (test code = Negative Negative 6455177356) GEORGIE (test code = GEORGIE) Urine Drug [...] testing). Lab Interpretation (test Abnormal code = 96527-9) [facility] Test Item Value Reference Range Interpretation Comments ACETAMINOP (test code = <10.0 10-30 L 4995282526) GEORGIE (test code = GEORGIE) Toxic: Greater than 200 ug/mL @ 4 hour post ingestion or greater than 50 ug/mL @ 12 hour post ingestion Lab Interpretation (test Abnormal code = 98782-8) [facility] 02:[facility]00 Test Item Value Reference Range Interpretation Comments SALICYLATE (test code <10 mg/L = 3755649692) GEORGIE (test code = GEORGIE) Therapeutic Range:? Analgesic and Antipyretic Use? 20-100 mg/L? Anti-Inflammatory Use? 100-250 mg/LToxic Range:? Greater than 300 mg/L [facility] (ETOH) [id number] 02:40:00 Test Item Value Reference Range Interpretation Comments ALCOHOL (test code = <10 mg/dL 3842997610) GEORGIE (test code = GEORGIE) <10 Ddxagoux73-074 Toxic>100 Depression of SUPERVISOR MATRIX>400 Fatalities Reported [facility] (NA, K, CL, CO2, Glucose, BUN, Creatinine, CA)2018-11-05 02:35:00 Test Item Value Reference Range Interpretation Comments NA (test code = 142 mmol/L 135-145 2355491418) K (test code = 3.5 mmol/L 3.5-5 3739551685) CL (test code = 107 mmol/L 98-108 3054541703) CO2 TOTAL (test code = 25 mmol/L 23-31 1551838414) AGAP (test code = 2-16 8580240914) BUN (test code = 12 mg/dL 7-23 9447422035) GLUCOSE (test code = 90 mg/dL 70-110 2711622907) CREATININE (test code 0.77 mg/dL 0.6-1.25 = 9388660286) CALCIUM (test code = 9.3 mg/dL 8.6-10.6 6338146432) eGFR Calculation mL/min/1.73m2 (Non-) (test code = 3699940421) eGFR Calculation mL/min/1.73m2 () (test code = 9609604525) GEORGIE (test code = GEORGIE) Association of [...] or urine or abnormalities in imaging tests). [facility] (ALB, T.PRO, BILI T, BU/BC, ALT, AST, ALK PHOS)2018-11-05 02:35:00 Test Item Value Reference Range Interpretation Comments TOTAL BILI (test code = 3442966628) 1.0 mg/dL 0.1-1.1 BILI UNCON (test code = 9236913444) 0.8 mg/dL 0.1-1.1 BILI CONJ (test code = 6506250849) 0.0 mg/dL 0-0.3 T PROTEIN (test code = 5647596811) 7.0 g/dL 6.3-8.2 ALBUMIN (test code = 5653880693) 4.4 g/dL 3.5-5 ALK PHOS (test code = 3713109247) 71 U/L 34-122 ALT(SGPT) (test code = 3153865458) 39 U/L 9-51 AST(SGOT) (test code = 1777888159) 40 U/L 13-40 Lab Interpretation (test code = Normal 84735-4) [facility] WITH [id number] 02:10:00 Test Item Value Reference Range Interpretation [...] RDW-SD (test code = 46.3 fL 38.5-51.6 77449-1) RDW-CV (test code = 13.1 % 12.1-15.4 788-0) PLT (test code = See_Comment [Automated 777-3) message] The sy stem which generated this result transmitted reference range : 150 - 328 10*3/ ?L. The reference r johan was not used to interpret this result as normal/abnormal . MPV (test code = 9.9 fL 9.8-13 57587-8) NRBC/100 WBC (test See_Comment [Automat ed code = 3869539755) message] The system which generated this result transmitted reference range : 0.0 - 10.0 /100 WBCs. The refer ence range was not u sed to interpret th is result as normal/abnormal . NRBC x10^3 (test code <0.01 See_Comment [Auto mated = 8298276085) message] The s ystem which generated this result transmitted reference range : 10*3/?L. The reference range was not used to interpret this result as normal/abnormal . GRAN MAT (NEUT) % 50.8 % (test code = 770-8) IMM GRAN % (test code 0.60 % = 7424233917) LYMPH % (test code = 33.8 % 736-9) MONO % (test code = 14.4 % 5905-5) EOS % (test code = 0.0 % 713-8) BASO % (test code = 0.4 % 706-2) GRAN MAT x10^3(ANC) 2.62 10*3/uL 1.99-6.95 (test code = 8749154019) IMM GRAN x10^3 (test 0.03 10*3/uL 0-0.06 code = 6454734566) LYMPH x10^3 (test code 1.74 10*3/uL 1.09-3.23 = 731-0) MONO x10^3 (test code 0.74 10*3/uL 0.36-1.02 = 742-7) EOS x10^3 (test code = <0.03 0.06-0.53 L 711-2) BASO x10^3 (test code <0.03 0.01-0.09 = 704-7) Lab Interpretation Abnormal (test code = 21619-6) [facility] [id number] 13:14:00 Test Item Value Reference Range Interpretation [...] by the National Kidney Foundation,http ://nkd ep.nih.gov [id number] 13:09:00 Test Item Value Reference Range Interpretation [...] g/dL 0.00-0.01 N code = ETOHU) Urinalysis [id number] 12:59:00 Test Item Value Reference Range Interpretation Comments Color (test code = Yellow Yellow,Straw,Pl N COLOR) yellow Clarity (test code = Clear Clear N CLAR) Specific [place] (test 1.027 1.001-1.035 N code = SPGR) [...] code = Few /HPF BACT) CBC with [id number] 12:42:00 Test Item Value Reference Range Interpretation [...] code = ALYMPH) 2.3 K/cumm 0.5-4.6 N Rowan Abs (test code = AMONO) 0.6 K/cumm 0.0-1.2 N Eos Abs (test code = AEOS) 0.09 K/cumm 0.00-0.74 N Baso Abs (test code = ABASO) 0.0 K/cumm 0.00-0.21 N Hepatic Function [id number] 18:55:00 Test Item Value Reference Range Interpretation [...] = ALT) 47 U/L 1-41 H HIV [id number] 12:45:00 Test Item Value Reference Range Interpretation Comments HIV 1/2 Antibody Non-Reactive Non-Reactive N HIV1/2 Anti body screen (test code = result indicate s the HIV1/2AB) absence of HIV1 and EYX2chxlldxeb.H owever, A Non-Reactive screen result does not [...] HIV RNA Quantit ative is recommended. RPR, [id number] 21:30:00 Test Item Value Reference Range Interpretation Comments RPR (test code = RPR) Non-Reactive Non-Reactive N Thyroid Stimulating Hormone (TSH)2017-03-17 09:55:00 Test Item Value Reference Range Interpretation Comments TSH (test code = TSH) 0.94 mIU/mL 0.270-4.200 N Lipid [id number] 09:53:00 Test Item Value Reference Range Interpretation Comments Cholesterol (test 124 mg/dL 0-200 N code = CHOL) Triglycerides (test 61 mg/dL 9-200 N code = TRIG) HDL (test code = 47 mg/dL 40-60 N HDL) Chol/HDL (test code 2.6 Ratio 0.0-5.0 N = CHOLPHDL) LDL, Calculated 65 0-130 N (NOTE)RISK O F HEART (test code = LDLC) DISEASEPu blished by [place] Heart AssociationAnal yte Optim al Boderline Increased RiskC HOL <200 200-239 >240TRI G <150 150-199 >200HDL Male: >60 <40HDL Female: >60 <50 LDL < 100 130-15 9 >160 LDL NEAR OPTIMAL IS 100- 129 VLDL (test code = 12 mg/dL 5-40 N VLDL) LDL/HDL (test code = 1 LDLPHDL) Urinalysis [id number] 15:09:00 Test Item Value Reference Range Interpretation Comments Color (test code = Yellow Yellow,Straw,Pl N COLOR) yellow Clarity (test code = Clear Clear N CLAR) Specific [place] (test 1.028 1.001-1.035 N code = SPGR) [...] = 0-1 Granular /HPF CASTS) Comprehensive Metabolic [id number] 14:24:00 Test Item Value Reference Range Interpretation [...] by the National Kidney Foundation,http ://nkd ep.nih.gov [id number] 14:20:00 Test Item Value Reference Range Interpretation [...] 0.00-0.01 N code = ETOHU) CBC with [id number] 14:08:00 Test Item Value Reference Range Interpretation [...] code = ALYMPH) 2.2 K/cumm 0.5-4.6 N Rowan Abs (test code = AMONO) 0.9 K/cumm 0.0-1.2 N Eos Abs (test code = AEOS) 0.06 K/cumm 0.00-0.74 N Baso Abs (test code = ABASO) 0.0 K/cumm 0.00-0.21 N
[2021-06-12] MEDS ORDERED: NA CHLORIDE 0.9% 1,000 ML ONE (23:40)
[2021-06-13 00:10] LABS: Absolute Lymphocytes (CBC) 1.9 K/uL (0.7-4.9); Hematocrit 42.7 % (39.6-49.0); Lymphocytes % 31.5 % (15.3-44.8); MPV 7.6 fL (7.6-11.3); RBC Red Blood Cell Count 4.53 M/uL (4.33-5.43)
[2021-06-13 00:11] LABS: Protime INR 0.96
[2021-06-13 00:23] LABS: ALT/SGPT 50 U/L (12-78); AST/SGOT 32 U/L (15-37); Albumin 3.6 g/dL (3.4-5.0); Alkaline Phosphatase 76 U/L (45-117); BUN Blood Urea Nitrogen 8 mg/dL (7-18); Bicarbonate 27 mmol/L (21-32); Bilirubin Direct 0.1 mg/dL (0-0.2); Bilirubin Total 0.4 mg/dL (0.2-1.0); Glucose Level 105 mg/dL (74-106); NT PRO-BNP 6 pg/mL (<125); Potassium 3.6 mmol/L (3.5-5.1); Protein, Total 6.8 g/dL (6.4-8.2); Sodium Level 140 mmol/L (136-145)
[2021-06-13 00:40] LABS: Troponin High Sensitivity < 3.0 pg/mL (<58.9)
[2021-06-13 00:58] LABS: Urine Blood Negative (Negative); Urine Glucose Negative (Negative); Urine Protein Negative (Negative)
[2021-06-13 01:44] LABS: Barbiturates NEGATIVE (NEGATIVE); Benzodiazepines NEGATIVE (NEGATIVE); Cocaine NEGATIVE (NEGATIVE); METHAMPHETAM POSITIVE (NEGATIVE); Methadone NEGATIVE (NEGATIVE); Opiates NEGATIVE (NEGATIVE); Phencyclidine NEGATIVE (NEGATIVE); THC Cannibis POSITIVE (NEGATIVE)
[2021-06-13] MEDS ORDERED: CYCLOBENZAPRINE 10 MG TAB ONE (02:48)
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
[2021-06-13 08:04] VITALS: TEMP 97.6; O2SAT 100
[2021-06-13 08:08] VITALS: BP 118/81
--- NOTE | 2021-06-13 13:10 | RAD REPORT ---
EXAM DESCRIPTION: RAD - Chest Single View - 06/13/2021 12:04 am CLINICAL HISTORY: 35 years Male, CHEST PAIN TECHNIQUE: 1 view (Single frontal view of the chest) COMPARISON: 05/17/2021 FINDINGS: LINES AND TUBES: None. CARDIOVASCULAR STRUCTURES: ormal heart size. No pulmonary venous congestion. LUNGS: No confluent areas of acute consolidation. PLEURA: No layering pleural effusions. No pneumothorax. BONES: No acute osseous abnormality of the thorax. IMPRESSION: 1. No acute cardiopulmonary disease. Electronically signed by: Marshall Pa MD 06/13/2021 12:13 AM CDT Due to temporary technical issues with the PACS/Fluency reporting system, reports are being signed by the in house radiologist without review as a courtesy to ensure prompt reporting. The interpreting r adiologist is fully responsible for the content of the report.
== END 2021-06-13 05:31 | disposition home or self-care (01) ==
LOC: ER 23:21
DX: R07.89 Other chest pain (principal); R29.91 Unspecified symptoms and signs involving the musculoskeletal system; F20.9 Schizophrenia, unspecified; G82.20 Paraplegia, unspecified; Z88.5 Allergy status to narcotic agent; Z88.6 Allergy status to analgesic agent
CPT/HCPCS: 93005; 85025; 80048; 36415; 83735; 85610; 80076; 81003; 84484; 83880; 80307; 71045; 99284; J7030

== ENCOUNTER 2021-06-22 17:23 | Emergency (ER) | payer OTHER ==
--- OUTSIDE RECORDS SUMMARY | 2021-06-22 17:30 | XMS REPORT | Continuity of Care Document ---
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 2020-07-12 08:13:09 Doctor Unassigned, No PRACTICES Name CONSENT/REFUSAL FOR 2020-07-12 08:12:53 Doctor Unassigned, No RELAY TESTER HELPER I:[id number] DIAGNOSIS AND TREATMENT Name NOTICE OF PRIVACY 2020-07-12 08:10:55 Doctor Unassigned, No PRACTICES Name ADC / [facility] - DRUG SCREEN 2018-11-05 02:31:00 Brown Bowen TRIAGE HEPATIC FUNCTION PANEL 2018-11-05 02:02:00 Brown Bowen NPI:1 [id number] ([id number]) (ALB,T.PRO,BILI T,BU/BC,ALT,AST,ALK PHOS) BASIC METABOLIC PANEL 2018-11-05 02:02:00 Brown Bowen NPI:[id number] (NA, K, CL, CO2, GLUCOSE, BUN, CREATININE, CA) SALICYLATE 2018-11-05 02:02:00 Brown Bowen NPI:[id number] ETHANOL 2018-11-05 02:02:00 Brown Bowen NPI:[id number] CBC WITH DIFFERENTIAL 2018-11-05 02:02:00 Jean Pierre Bowenio C NPI:18 [id number] CONSENT/REFUSAL FOR 2018-11-05 01:28:18 Doctor Unassigned, No RELAY TESTER HELPER I:[id number] DIAGNOSIS AND TREATMENT Name Plan of Care Planned Activity Planned Date Details Comments Source Future Scheduled 2021-05-23 [facility] 21:56:30 screening (procedure) [code = 799401004] Future Scheduled 2021-05-23 COVID-19 VACCINE (3 [facility] 21:56:30 - Booster) [code = COVID-19 VACCINE (3 - Booster)] Future Scheduled 2021-05-23 INFLUENZA VACCINE [facility] 21:56:30 [code = INFLUENZA VACCINE] Encounters Start End Encounter Admission Attending Care Care Encounter Source Date/Time Date/Time Type Type Clinicians Facility Department ID 2021-03-14 Outpatient [id number] [facility] CARLENE [id number] [facility] 13:33:41 12212021-03-14 Outpatient [id number] [facility] REF [id number] [facility] 13:33:01 [facility] 2021-02-11 Inpatient MENDEL, [facility] [id number] H arris 00:00:00 [facility] 2021-01-24 [facility] [id number] [place] 07:00:09 ELIS Rocha [facility] 2021-01-22 Inpatient [facility] [id number] H arris 00:00:00 [facility] 2021-01-21 Inpatient [facility] [id number] H arris 00:00:00 [facility] 2021-01-20 Inpatient [facility] [id number] H arris 00:00:00 [facility] 2021-01-18 Inpatient [facility] [id number] H arr[place] 00:00:00 [facility] 2021-01-17 Inpatient [facility] [id number] H arris 00:00:00 [facility] 2021-01-16 Inpatient [facility] [id number] H arris 00:00:00 [facility] 2021-01-15 Inpatient YULI, [facility] [id number] [place] 00:00:00 [facility] 2021-01-13 Inpatient [facility] [id number] H arris 00:00:00 [facility] 2021-01-12 Inpatient [facility] [id number] H arris 00:00:00 [facility] 2021-01-11 Inpatient [facility] [id number] H arris 00:00:00 [facility] 2021-01-10 Inpatient [facility] [id number] H [place] 00:00:00 [facility] 2021-01-09 Inpatient [facility] [id number] H arris 00:00:00 [facility] 2021-01-08 Inpatient YULI, [facility] [id number] [place] 00:00:00 [facility] 2021-01-06 Inpatient [facility] [id number] H arris 00:00:00 [facility] 2021-01-05 Inpatient YULI, [facility] [id number] [place] 00:00:00 [facility] 2021-01-04 Inpatient YULI, [facility] [id number] [place] 00:00:00 [facility] 2021-01-03 Inpatient YULI, [facility] [id number] [place] 00:00:00 [facility] 2021-01-02 Inpatient [facility] [id number] [place] 00:00:00 [facility] 2020-12-30 Inpatient 1 MAREK, [facility] [id number] H arris 22:32:00 BUSHRA Jeanette 2020-12-30 Inpatient LORENE, [facility] [id number] [place] 00:00:00 [facility] 2020-12-30 Inpatient LORENE, [facility] [id number] [place] 00:00:00 [facility] 2020-05-17 Inpatient HCAKW MALIKA [id number] [facility] 01:21:00 [id number] [facility] 2020-05-14 Inpatient HCAKW MALIKA [id number] [facility] 23:22:00 [id number] [facility] 2019-08-29 Inpatient [facility] MALIKA [id number] [facility] 22:17:00 [id number] [facility] 2019-06-22 Inpatient [facility] MALIKA [id number] [facility] 13:23:00 [id number] [facility] 2021-06-18 2021-06-18 Outpatient [facility]_Tod PRIV PRIV [id number] NPI:157 01:40:00 01:40:00 Schuyler [id number] 5 2021-06-14 2021-06-14 Outpatient [facility]_Tod PRIV PRIV [id number] NPI:157 08:35:00 08:35:00 d_J [id number] 2021-06-11 2021-06-11 Outpatient [facility]_Tod PRIV PRIV [id number] NPI:157 09:50:00 09:50:00 d_J [id number] 2021-06-11 2021-06-11 Outpatient Michael, PRIV PRIV [id number] 00:00:00 00:00:00 Marina [id number] 2021-06-06 2021-06-06 Outpatient [facility]_Tod PRIV PRIV [id number] NPI:157 01:01:00 01:01:00 d_J [id number] 2021-06-05 2021-06-05 Outpatient [facility]_Tod PRIV PRIV [id number] NPI:157 03:19:00 03:19:00 d_J [id number] 2021-06-04 2021-06-04 Outpatient [facility]_Tod PRIV PRIV [id number] NPI:157 01:42:00 01:42:00 d_J [id number] 2021-06-04 2021-06-04 Outpatient Michael, PRIV PRIV [id number] 00:00:00 00:00:00 Marina [id number] 2021-05-30 2021-05-30 Outpatient [facility]_Tod PRIV PRIV [id number] NPI:157 11:28:00 11:28:00 d_J [id number] 2021-05-30 2021-05-30 Outpatient Lilly, PRIV PRIV [id number]-c 00:00:00 00:00:00 Jonah Garcia [id number] 2021-05-28 2021-05-28 Outpatient [facility]_Tod PRIV PRIV [id number] NPI:157 01:25:00 01:25:00 d_J [id number] 2021-05-28 2021-05-28 Outpatient Michael, PRIV PRIV [id number] 00:00:00 00:00:00 Marina [id number] 2021-05-27 2021-05-27 Outpatient [facility]_Tod PRIV PRIV [id number] NPI:157 03:48:00 03:48:00 d_J [id number] 2021-05-24 2021-05-24 Outpatient GC_[facility]_Spa PRIV PRIV [id number] NPI:157 04:32:00 04:32:00 ngTiffany [id number] 2021-05-07 2021-05-08 Outpatient X [facility] [id number] NPI:183 08:26:00 04:30:00 MARTIN [id number] 2021-05-07 2021-05-08 Emergency Tono Roberto [facility] 1.2.840. [id number] NPI:183 08:26:00 04:30:00 Martin Clay [place] [id number] [id number] [place] 4.2.7.2.686 [place] [id number] 2021-03-28 2021-03-28 [facility] [id number] [place] 00:00:00 00:00:00 GALE maldonado 2021-03-20 2021-03-20 Outpatient PASCUAL MAHAN [facility] [id number] [place] 00:00:00 00:00:00 [facility] 2020-12-30 2021-02-28 [facility] [id number] [place] 22:32:00 18:41:00 BUSHRA Heal 2020-12-30 2021-02-28 Inpatient MAREK, [facility] DASHA [id number] [place] 22:32:00 18:41:00 BUSHRA Heal 2021-02-15 2021-02-15 Inpatient [facility] [id number] [place] 10:50:13 11:18:57 Health 2021-02-14 2021-02-14 Inpatient [facility] [id number] [place] 16:43:15 18:41:33 Health 2021-02-14 2021-02-14 Inpatient [facility] [id number] [place] 07:24:16 09:18:07 Health 2021-01-31 2021-01-31 Inpatient [facility] [id number] [place] 01:03:14 03:25:48 Health 2021-01-25 2021-01-25 Inpatient [facility] [id number] [place] 01:35:50 03:05:16 [facility] 2021-01-23 2021-01-23 Inpatient [facility] [id number] [place] 02:10:17 04:59:36 Health 2021-01-21 2021-01-21 Inpatient VIKASH, [facility] [id number] [place] 15:43:59 16:18:10 [facility]ce maldonado 2021-01-13 2021-01-13 Inpatient [facility] [id number] [place] 16:20:12 17:12:27 [facility] 2021-01-07 2021-01-07 Inpatient [facility] [id number] [place] 18:28:43 18:28:46 Health 2021-01-07 2021-01-07 Inpatient [facility] [id number] [place] 00:12:42 01:07:25 [facility] 2021-01-04 2021-01-04 Inpatient [facility] [id number] [place] 17:11:58 18:14:36 Health 2021-01-04 2021-01-04 Inpatient KARYN, [facility] [id number] [place] 13:40:49 15:55:44 [facility] 2021-01-03 2021-01-03 Inpatient [facility] [id number] [place] 17:58:59 17:59:03 [facility] 2021-01-01 2021-01-01 Inpatient [facility] [id number] [place] 16:44:03 16:44:07 Health 2021-01-01 2021-01-01 Inpatient CARTER, [facility] [id number] [place] 08:36:00 09:12:12 [facility] 2021-01-01 2021-01-01 Inpatient [facility] [id number] [place] 07:46:21 08:35:30 [facility] 2021-01-01 2021-01-01 Inpatient YULI, [facility] [id number] [place] 02:09:24 03:31:22 [facility] 2020-12-31 2020-12-31 Inpatient MAREK, [facility] [id number] [place] 05:17:16 06:34:53 BUSHRA Booker 2020-12-31 2020-12-31 Inpatient [facility] [id number] [place] 01:50:33 06:34:15 [facility] 2020-12-31 2020-12-31 Inpatient [facility] [id number] [place] 03:50:31 04:54:13 [facility] 2020-12-31 2020-12-31 Inpatient [facility] [id number] [place] 01:43:22 04:38:47 [facility] 2020-12-30 2020-12-30 Emergency [facility] [id number] [place] 22:46:36 23:04:47 [facility] 2020-12-30 2020-12-30 Emergency [facility] [id number] [place] 22:46:20 23:04:03 [facility] 2020-12-30 2020-12-30 Emergency [facility] [id number] [place] 22:47:41 23:03:11 [facility] 2020-12-30 2020-12-30 Emergency LAKHWINDER, [facility] [id number] [place] 00:00:00 00:00:00 [facility] 2020-12-20 2020-12-20 Emergency [id number] [facility] 06:26:00 16:34:00 Erich 52 [facility] 2020-12-20 2020-12-20 Emergency EM Uziel, [facility] [id number] [facility] 06:26:00 16:34:00 Erich [id number] [facility] 2020-11-15 2020-11-16 Emergency Eusebia Bland 1.2.840 .1 [id number] Methodi 00:55:00 14:35:00 William Nunes [id number] 84 8 Mio Sorensen 3.430.2.7 Hospita .3.012584 l .8 2020-11-14 2020-11-14 Emergency Manju 1.2.840.1 [id number] Methodi 15:47:00 16:03:00 William Langston [address]80.1.[address] 3.430.2.7 Hospit a .3.076009 l .8 2020-10-22 2020-10-24 [facility] Dennis Wynn 1.2.840.1 [id number] Methodi 16:52:00 16:26:00 Encounter Pepito LaurenBlayne [id number] [facility] 3.430.2.7 [facility] .3.507017 l .8 2020-10-16 2020-10-16 Emergency EM Crismon, [facility] MALIKA [id number] [facility] 00:20:00 08:00:00 Gale [id number] [facility] 2020-10-06 2020-10-06 Emergency EM Zia, [facility] MALIKA [id number] [facility] 01:57:00 20:14:00 [id number] 2020-09-05 2020-09-05 Emergency EM KylahMichael peters [facility] MALIKA [id number] [facility] 11:17:00 18:22:00 [id number] [facility] 2020-09-03 2020-09-03 Emergency EM Pardo, [facility] MALIKA [id number] [facility] 03:35:00 15:00:00 Farhad [id number] [facility] 2020-09-02 2020-09-03 Emergency EM Michael Montero [facility] MALIKA [id number] [facility] 23:16:00 01:53:00 [id number] [facility] 2020-08-11 2020-08-12 Emergency EM Giovanni-Kenneth, [facility] MALIKA [id number] [facility] 11:12:00 00:40:00 Lan [id number] [facility] 2020-07-12 2020-07-12 Emergency [facility], [facility] [id number] NPI:183 03:16:00 05:05:00 Michael Nichols 350.1.13.10 [id number] [place] 4.2.7.2.[address] [id number] 2020-07-12 2020-07-12 Emergency [facility] 1.2.165.394 [id number] 03:16:00 05:05:00 Michael Nichols 350.1.13.10 [place] 4.2.7.2.686 [place] [address] [id number] 2020-07-12 2020-07-12 Emergency [facility] [id number] NPI:183 03:16:00 03:16:00 MICHAEL [id number] 2019-02-21 2019-02-21 Outpatient [facility] [id number] [place] 00:00:00 00:00:00 [facility] 2019-02-19 2019-02-19 Emergency [facility] TAMEKA [id number] 07:23:00 07:23:00 [facility] 2019-02-01 2019-02-01 Outpatient [facility] [id number] [place] 22:11:49 22:11:49 [facility] 2018-11-04 2018-11-05 [facility] [id number] [id number] NPI:183 20:38:48 05:13:00 Brown Nichols 350.1.13.10 1 [id number] [place] 4.2.7.2.686 [place] [address] [id number] 2018-11-04 2018-11-05 [facility] [id number] 20:38:48 05:13:00 Brown Nichols 350.1.13.10 [place] 4.2.7.2.686 [place] [address] [id number] 2018-10-18 2018-10-18 Emergency [facility] [id number] [place] 06:08:40 06:08:40 [facility] 2017-04-02 2017-04-02 Outpatient [facility] [id number] [place] 00:00:00 00:00:00 [facility] 2017-03-29 2017-03-29 Emergency [facility] [id number] [place] 00:00:48 00:00:48 [facility] 2017-03-22 2017-03-22 Emergency Art [facility] [id number] 11:46:00 11:46:00 POND [facility] 2017-03-16 2017-03-20 Inpatient Art AGUILAR [facility] [id number] 20:46:00 13:41:00 Jonathon DIOP M.D. [facility] 2017-01-26 2017-01-26 Outpatient [facility] [id number] [facility] 00:00:00 00:00:00 Results Test Description Test Time Test Comments Results Result Comments Source TROPONIN I 2021-05-08 04:00:37 Test Item Value Reference Range Interpretation Comme nts TROPONIN I (test code = 0.000 ng/mL See_Comment [Au tomated message] The 1445743187) system which ge nerated this result tra [...] biotin. Lab Interpretation Normal (test code = 80040-0) NPI:[id number] [id number] 00:46:10 Test Item Value Reference Range Interpretation Comments ESR (test code = See_Comment H [Automated message] 7049702237) The system Woch[employer] generated this result transmitted ref erence range: 0 - 10 m m/HR. The reference r johan was not used to interpret this result as normal/abnor mal. Lab Interpretation (test Abnormal code = 82088-8) NPI:[id number] HEMOGLOBIN (A1C)2021-05-07 20:23:40 Test Item Value Reference Range Interpretation Comments HGB A1C (test code = 5.3 % 4.0-5.7 4548-4) GEORGIE (test code = GEORGIE) Reference RangesNormal: <5.7%Prediabetes: 5.7 - 6.4%Diabetes: > 6.5% Lab Interpretation (test Normal code = 60257-7) NPI:[id number]. METABOLIC PANEL (08195)2021-05-07 16:11:59 Test Item Value Reference Range Interpretation Comments NA (test code = 139 mmol/L 135-145 9252207039) K (test code = 3.9 mmol/L 3.5-5.0 6211245301) CL (test code = 101 mmol/L 98-108 3892586529) CO2 TOTAL (test code = 23 mmol/L 23-31 2834603233) AGAP (test code = 2-16 1445728044) BUN (test code = 13 mg/dL 7-23 6700524437) GLUCOSE (test code = 92 mg/dL 70-110 7691350574) CREATININE (test code = 0.40 mg/dL 0.60-1.25 L 0493061784) TOTAL BILI (test code = 1.6 mg/dL 0.1-1.1 H 1286774427) CALCIUM (test code = 9.6 mg/dL 8.6-10.6 4169309470) T PROTEIN (test code = 7.7 g/dL 6.3-8.2 2077977640) ALBUMIN (test code = 4.6 g/dL 3.5-5.0 4116754501) ALK PHOS (test code = 91 U/L 34-122 8248183089) ALTv (test code = 24 U/L 5-50 2-6) AST(SGOT) (test code = 31 U/L 13-40 0875053898) eGFR (test code = mL/min/1.73m2 8644447724) GEORGIE (test code = GEORGIE) Association of [...] tests). Lab Interpretation Abnormal (test code = 50091-1) NPI:[id number] PARTIAL THRMPLAS [id number] 15:52:36 Test Item Value Reference Range Interpretation Comments APTT Patient (test See_Comment [Automat ed code = 3173-2) message] The system which generated this result transmitted reference range : 23 - 38 Seconds . The reference range was not used to interpr et this result as normal/abnormal . GEORGIE (test code = GEORGIE) The [facility] patient population mean normal value for aPTT is 30 seconds. Lab Interpretation Normal (test code = 93913-5) NPI:[id number] TIME / [id number] 15:50:30 Test Item Value Reference Range Interpretation [...] tions. Lab Interpretation (test Normal code = 88671-6) NPI:[id number] WITH [id number] 15:42:54 Test Item Value Reference Range Interpretation [...] RDW-SD (test code = 44.1 fL 38.5-51.6 12098-0) RDW-CV (test code = 13.3 % 12.1-15.4 788-0) PLT (test code = See_Comment [Automated 777-3) message] The sy stem which generated this result transmitted reference range : 150 - 328 10*3/ ?L. The reference r johan was not used to interpret this result as normal/abnormal . MPV (test code = 9.7 fL 9.8-13.0 L 65430-8) NRBC/100 WBC (test See_Comment [Automat ed code = 0903809579) message] The system which generated this result transmitted reference range : 0.0 - 10.0 /100 WBCs. The refer ence range was not u sed to interpret th is result as normal/abnormal . NRBC x10^3 (test code <0.01 See_Comment [Auto mated = 9288619010) message] The s ystem which generated this result transmitted reference range : 10*3/?L. The reference range was not used to interpret this result as normal/abnormal . GRAN MAT (NEUT) % 77.6 % (test code = 770-8) IMM GRAN % (test code 0.60 % = 5511498313) LYMPH % (test code = 13.7 % 736-9) MONO % (test code = 7.7 % 5905-5) EOS % (test code = 0.2 % 713-8) BASO % (test code = 0.2 % 706-2) GRAN MAT x10^3(ANC) 7.68 10*3/uL 1.99-6.95 H (test code = 6816657414) IMM GRAN x10^3 (test 0.06 10*3/uL 0.00-0.06 code = 3919246858) LYMPH x10^3 (test code 1.35 10*3/uL 1.09-3.23 = 731-0) MONO x10^3 (test code 0.76 10*3/uL 0.36-1.02 = 742-7) EOS x10^3 (test code = <0.03 0.06-0.53 L 711-2) BASO x10^3 (test code <0.03 0.01-0.09 = 704-7) Lab Interpretation Abnormal (test code = 25297-6) NPI:[id number]-MpR-2 ORF1ab Resp Ql [id number]+[id number] 19:38:49 Test Item Value Reference Range Interpretation Comments Hospitalized? (test Yes code = 44869-9) ICU? (test code = No 23925-4) Symptomatic as defined No by CDC? (test code = 33585-1) Employed in No Healthcare? (test code = 86926-3) Resident in a No congregate care setting (including nursing homes, residential care for people with intellectual and developmental disabilities, psychiatric treatment facilities, group homes, board and care homes, homeless jail, foster care or other): (test code = 73473-7) SARS-CoV-2 ORF1ab Resp NOT DETECTED Not Detected INTER PRETATION: No Ql BETY+probe (test detectabl e levels code = 16109-0) of SARS-CoV- 2 Coronavirus (COVID-19) were present [...] n with SARS-CoV-2 Coronavirus (COVID-19). COMMENT: This [employer] SARS-CoV-2 molecular diagnostic assay utilizes President And Chief Operating Officer Mediated Amplification (TMA) technology to rapidly detect the SARS-CoV-2 (COVID-19) virus from respiratory samples. In accordance with the FDA's guidance document "Policy for Diagnostic Tests for Coronavirus Disease- 2019 during the Public Health Emergency", this test was developed, and its performance characteristics were verified by the [facility] molecular diagnostics laboratory and is authorized for clinical diagnostic use. This laboratory is certified under the Clinical Laboratory Improvement Amendments (CLIA) as qualified to perform high complexity clinical laboratory testing.SARS-CoV-2 RNA Resp Ql [id number] 22:20:00 Test Item Value Reference Range Interpretation Comments Hospitalized? (test Yes code = 40301-7) ICU? (test code = No 15268-5) Symptomatic as defined No by CDC? (test code = 44579-1) Employed in Unknown Healthcare? (test code = 30519-0) Resident in a Unknown congregate care setting (including nursing homes, residential care for people with intellectual and developmental disabilities, psychiatric treatment facilities, group homes, board and care homes, homeless jail, foster care or other): (test code = 60688-0) SARS-CoV-2 RNA Resp Ql NOT DETECTED Not Detected INTER PRETATION: No BETY+probe (test code = detec table levels 90545-9) of SARS-CoV-2 Coronavirus (COVID-19) were present in [...] its performance characteristics were verified by the [facility] molecular diagnostics laboratory and is authorized for clinical diagnostic use. This laboratory is certified under the Clinical Laboratory Improvement Amendments (CLIA) as qualified to perform high complexity clinical laboratory testing.SARS-CoV-2 ORF1ab Resp Ql [id number] 14:59:31 Test Item Value Reference Range Interpretation Comments Hospitalized? (test Yes code = 63742-8) ICU? (test code = Yes 536620-5) Symptomatic as defined No by CDC? (test code = 82485-7) Employed in No Healthcare? (test code = 12826-8) Resident in a No congregate care setting (including nursing homes, residential care for people with intellectual and developmental disabilities, psychiatric treatment facilities, group homes, board and care homes, homeless jail, foster care or other): (test code = 22875-3) SARS-CoV-2 ORF1ab Resp NOT DETECTED Not Detected INTER PRETATION: No Ql BETY+probe (test detectabl e levels code = 43106-7) of SARS-CoV- 2 Coronavirus (COVID-19) were present [...] Hologic Aptima SARS-CoV-2 molecular diagnostic assay utilizes President And Chief Operating Officer Mediated Amplification (TMA) technology to rapidly detect the SARS-CoV-2 (COVID-19) virus from respiratory samples. In accordance with the FDA's guidance document "Policy for Diagnostic Tests for Coronavirus Disease- 2019 during the Public Health Emergency", this test was developed, and its performance characteristics were verified by the [facility] molecular diagnostics laboratory and is authorized for clinical diagnostic use. This laboratory is certified under the Clinical Laboratory Improvement Amendments (CLIA) as qualified to perform high complexity clinical laboratory testing.SARS-CoV-2 RNA Resp Ql BETY+[id number] 00:53:33 Test Item Value Reference Range Interpretation Comments Hospitalized? (test code Yes = 20153-5) ICU? (test code = No 14319-4) Symptomatic as defined No by CDC? (test code = 17356-3) Employed in Healthcare? No (test code = 00230-9) Resident in a congregate No care setting (including nursing homes, residential care for people with intellectual and developmental disabilities, psychiatric treatment facilities, group homes, board and care homes, homeless jail, foster care or other): (test code = 28421-0) ? (test code = No 46621-7) SARS-CoV-2 RNA Resp Ql DETECTED Not Detected A INTER PRETATION: This BETY+probe (test code = odalys nt's sample had 42335-4) detectable RNA present for the SARS-CoV-2 Coronavirus [...] its performance characteristics were verified by the [facility] molecular diagnostics laboratory and is authorized for [...] NONE A MUCU) DRUGS OF ABUSE SCREEN [id number] 13:19:00 Test Item Value Reference Interpretation Comments [...] this result as normal/abnormal . BASIC METABOLIC [id number] 09:24:00 Test Item Value Reference Range Interpretation [...] (test code = Index/DL The system whic [employer] HEMINDEX) generated this result transmit isai reference [...] this result as normal/abnormal . HEPATIC FUNCTION [id number] 09:24:00 Test Item Value Reference Range Interpretation [...] 59 Unit/L 45-117 N code = ALKP) [id number] 09:24:00 Test Item Value Reference Range Interpretation Comments ACETAMINOPHEN (test code = ACET) <2.0 mcG/ML 10.0-30.0 L [id number] 09:24:00 Test Item Value Reference Range Interpretation Comments ALCOHOL (test code = < 3 MG/DL 0-10 N MEDICAL ALCOHOL ALC) RESULTS. SITE W PREPPED WITH BE TADINE. <10 MG/DL ARE CONSIDERED NEGA TIVE. >400 MG/DL MAY BE FATAL.RESULTS F OR MEDICAL USE ONL Y. NOT TO BE USED FOR FORENSIC PURPOSES. [id number] 07:55:00 Test Item Value Reference Range Interpretation Comments SALICYLATE (test code < 1.7 MG/DL See_Comment L RESULT <2.8 IS = SMITH) CONSIDERED NEGA TIVE FOR SALICYLATE. [Automated mess age] The system Wochit generated this result transmitted ref erence range: 2.8-20.0 THER. The reference r johan was not used to interpret this result as normal/abnor mal. CBC W/AUTO [id number] 07:10:00 Test Item Value Reference Range Interpretation [...] 0.00 K/mm3 0.00-0.05 N NRBC#) ECG 12 [id number] 22:52:05 Test Item Value Reference Range Interpretation Comments Ventricular rate (test code = 253) Atrial rate (test code = 255) WI interval (test code = 266) QRSD interval [...] available-Electronica lly Signed By Doron Judge MD ([id number]) on 11/26/2020 5:52:04 PM [facility] [id number] 07:28:23 Test Item Value Reference Range Interpretation Comments Urine culture (test SEE COMMENT Bacteriu winston screen code = 8521631) negative. [facility] Hospital[facility]OLIC [id number] 09:20:00 Test Item Value Reference Range Interpretation [...] message] (test code = Index/DL The system Wochit HEMINDReadmill) generated this result transmit isai reference range [...] this result as normal/abnormal . Specimen comments: [facility] [id number] 09:20:00 Test Item Value Reference Range Interpretation [...] code = ALKP) Specimen comments: CCTHYROID STIMULATING [id number] 09:20:00 Test Item Value Reference Range Interpretation Comments THYROID STIMULATING HORMONE 0.619 mc IU/ML 0.340-4.820 N (test code = TSH) Specimen comments: [id number] 09:20:00 Test Item Value Reference Range Interpretation [...] change s in troponin levelscharacter istic of MA. Specimen comments: [id number] 09:20:00 Test Item Value Reference Range Interpretation Comments ACETAMINOPHEN (test code = ACET) <2.0 mcG/ML 10.0-30.0 L Specimen comments: [id number] 09:20:00 Test Item Value Reference Range Interpretation Comments ALCOHOL (test code = < 3 MG/DL 0-10 N MEDICAL ALCOHOL ALC) RESULTS. SITE W PREPPED WITH BE TADINE. <10 MG/DL ARE CONSIDERED NEGA TIVE. >400 MG/DL MAY BE FATAL.RESULTS F OR MEDICAL USE ONL Y. NOT TO BE USED FOR FORENSIC PURPOSES. Specimen comments: [id number] 08:59:00 Test Item Value Reference Range Interpretation Comments SALICYLATE (test code < 1.7 MG/DL See_Comment L RESULT <2.8 IS = SMITH) CONSIDERED NEGA TIVE FOR SALICYLATE. [Automated mess age] The system Wochit generated this result transmitted ref erence range: 2.8-20.0 THER. The reference r johan was not used to interpret this result as normal/abnor mal. Specimen comments: CCBASIC METABOLIC [id number] 08:55:00 Test Item Value Reference Range Interpretation [...] message] (test code = Index/DL The system [employer]) generated this result transmit isai reference range [...] as normal/abnormal . Specimen comments: CCHEPATIC FUNCTION [id number] 08:55:00 Test Item Value Reference Range Interpretation [...] code = ALKP) Specimen comments: CCTHYROID STIMULATING [id number] 08:55:00 Test Item Value Reference Range Interpretation Comments THYROID STIMULATING HORMONE 0.619 mc IU/ML 0.340-4.820 N (test code = TSH) Specimen comments: [id number] 08:55:00 Test Item Value Reference Range Interpretation [...] change s in troponin levelscharacter istic of MA. Specimen comments: [id number] 08:55:00 Test Item Value Reference Range Interpretation Comments ACETAMINOPHEN (test code = ACET) mcG/ML 10.0-30.0 Specimen comments: [id number] 08:55:00 Test Item Value Reference Range Interpretation Comments ALCOHOL (test code = < 3 MG/DL 0-10 N MEDICAL ALCOHOL ALC) RESULTS. SITE W PREPPED WITH BE TADINE. <10 MG/DL ARE CONSIDERED NEGA TIVE. >400 MG/DL MAY BE FATAL.RESULTS F OR MEDICAL USE ONL Y. NOT TO BE USED FOR FORENSIC PURPOSES. Specimen comments: CCCBC W/AUTO [id number] 08:10:00 Test Item Value Reference Range Interpretation [...] NRBC#) Specimen comments: CC- XR CHEST 1 [id number] 03:12:00 [facility] : 1985 Sex: M FAX: Mahin Smallwood MD [phone] [place]: St: [facility] FAX: Vilma Coker [phone] Patient Name: ARLINE RAO Unit No: [id number] EXAMS: CPT CODE: [id number] XR CHEST 1 V 74407 EXAM: - XR CHEST 1 V HISTORY: [...] Signed by Santos Bobby MD on 1at 311 Reported and signed by: Santos Bobby MD CC: Vilma BENNETT Dictated Date/Time: 10/16/2020 (311)Technologist: Dk Hale Transcribed Date/Time: 10/16/2020 (311) By: [email or web address] Orig Print D/T: S: 10/16/2020 (314) [facility] [place] NAME: ARLINE RAO [address] [place] [address] PHYS: AQUILES. - Vilma Curry[place], [place] [address] : 1985 AGE: 35 SEX: M LOC: CASSANDRA PHONE #: [phone] EXAM DATE: 10/16/2020 STATUS: JUDE FERNANDEZ FAX #: [phone] RAD NO: DC Dt: PAGE 1 Signed ReportCOVID 19 Asymptomatic IH [id number] 06:58:00 Test Item Value Reference Range Interpretation Comments COVID 19 Asymptomatic IH AG (test POSITIVE Negative A code = COVNONPUIAG) BASIC METABOLIC [id number] 04:22:00 Test Item Value Reference Range Interpretation [...] 8.3 mg/dL 8.4-10.2 L CA) LIVER FUNCTION [id number] 04:22:00 Test Item Value Reference Range Interpretation [...] U/L 38-126 N (test code = ALKP) [id number] 04:22:00 Test Item Value Reference Range Interpretation Comments ALCOHOL (test code = < 10 mg/dL <10 ALC) ~~~~~~~~~~~~~~~ ~~~~~~~ ~~~~~~~~~~~~~~~ ~~~~~~~ ~~~~~~ RESU LTS ARE TO BE USED FOR MEDICAL PURPOSES ONLY.F OR LEGAL PURPOSES THE SPECIMEN MUST B E COLLECTED BY A CHAINOF CUSTODY. LEGAL TESTING IS NOT PERFORME D BY THIS FACILITY. ~~~~~~~~~~~~~~~ ~~~~~~~ ~~~~~~~~~~~~~~~ ~~~~~~~ ~~~~~~ CBC W/AUTO [id number] 04:08:00 Test Item Value Reference Range Interpretation [...] x10 3/uL 0.0-0.1 N Coronavirus 2019 nCoV [id number] 17:19:00 Test Item Value Reference Range Interpretation Comments Coronavirus 2019 nCoV Bedside (test Negative Neg code = [id number]) [id number] 13:14:00 Test Item Value Reference Range Interpretation Comments SALICYLATE (test code < 1.7 MG/DL See_Comment L RESULT <2.8 IS = SMITH) CONSIDERED NEGA TIVE FOR SALICYLATE. [Automated mess age] The system Wochit generated this result transmitted ref erence range: 2.8-20.0 THER. The reference r johan was not used to interpret this result as normal/abnor mal. BASIC METABOLIC [id number] 13:03:00 Test Item Value Reference Range Interpretation [...] message] (test code = Index/DL The system Wochit HEMINDEX) generated this result transmit isai reference [...] this result as normal/abnormal . HEPATIC FUNCTION [id number] 13:03:00 Test Item Value Reference Range Interpretation [...] 87 Unit/L 45-117 N code = ALKP) [id number] 13:03:00 Test Item Value Reference Range Interpretation Comments ACETAMINOPHEN (test code = ACET) <2.0 mcG/ML 10.0-30.0 L [id number] 13:03:00 Test Item Value Reference Range Interpretation Comments ALCOHOL (test code = < 3 MG/DL 0-10 N MEDICAL ALCOHOL ALC) RESULTS. SITE W PREPPED WITH BE TADINE. <10 MG/DL ARE CONSIDERED NEGA TIVE. >400 MG/DL MAY BE FATAL.RESULTS F OR MEDICAL USE ONL Y. NOT TO BE USED FOR FORENSIC PURPOSES. DRUGS OF ABUSE SCREEN [id number] 12:38:00 Test Item Value Reference Interpretation Comments [...] this result as normal/abnormal . BASIC METABOLIC [id number] 12:37:00 Test Item Value Reference Range Interpretation [...] message] (test code = Index/DL The system Wochit HEMINDEX) generated this result transmit isai reference [...] this result as normal/abnormal . HEPATIC FUNCTION [id number] 12:37:00 Test Item Value Reference Range Interpretation [...] 87 Unit/L 45-117 N code = ALKP) [id number] 12:37:00 Test Item Value Reference Range Interpretation Comments ACETAMINOPHEN (test code = ACET) mcG/ML 10.0-30.0 [id number] 12:37:00 Test Item Value Reference Range Interpretation Comments ALCOHOL (test code = < 3 MG/DL 0-10 N MEDICAL ALCOHOL ALC) RESULTS. SITE W PREPPED WITH BE TADINE. <10 MG/DL ARE CONSIDERED NEGA TIVE. >400 MG/DL MAY BE FATAL.RESULTS F OR MEDICAL USE ONL Y. NOT TO BE USED FOR FORENSIC PURPOSES. CBC W/AUTO [id number] 12:02:00 Test Item Value Reference Range Interpretation [...] code = 0.00 K/mm3 0.00-0.05 N NRBC#) [id number] 23:33:00 Test Item Value Reference Range Interpretation [...] change s in troponin levelscharacter istic of MA. B-TYPE NATRIURETIC [id number] 19:24:00 Test Item Value Reference Range Interpretation Comments B-TYPE NATRIURETIC PEPTIDE < 30.00 PG/ML 0.00-100.00 N (test code = BNP) URINALYSIS [id number] 15:43:00 Test Item Value Reference Range Interpretation [...] MIKE) UA PROTEIN DIPSTICK mg/dL See_Comment [Automa isia message] (test code = PROU) The syste [...] 0-3 RBCU) PENDING RECEIPT OF SPECIMEN PER a.[facility].VT15 AT 08/11/20 1302DRUGS OF ABUSE SCREEN [id number] 15:43:00 Test Item Value Reference Interpretation Comments [...] normal/abnormal . PENDING RECEIPT OF SPECIMEN PER a.F.VT15 AT 08/11/20 1302URINALYSIS COMPLETE 2020-08-11 15:43:00 Test [...] a.STF.VT15 AT 08/11/20 1302DRUGS OF ABUSE SCREEN [id number] 15:43:00 Test Item Value Reference Interpretation Comments [...] HAND 3 + V LT 2020-08-11 13:43:00 [facility] : 1985 Sex: M FAX: Lan Agee MD [phone] [place]: E St: PRE Patient Name: ARLINE RAO Unit No: [id number] EXAMS: CPT CODE: [id number] XR HAND 3 + V LT [address] EXAM: - XR HAND 3 + V [...] By: [email or web address] Orig Print D/T: S: 08/11/2020 (7467) [facility] NAME: EDMUND RAO [address] PHYS: Lan Dykes [place], [place] [address] : 1985 AGE: 34 SEX: M LOC: BDELMI PHONE #: [phone] EXAM DATE: 08/11/2020 STATUS: PRE ER FAX #: [phone] RAD NO: DC Dt: PAGE 1 Signed Report- XR CHEST 1 [id number] 13:41:00 [facility] : 1985 Sex: M FAX: Lan Agee MD [phone] [place]: E St: PRE Patient Name: ARLINE RAO Unit No: [id number] EXAMS: CPT CODE: [id number] XR CHEST 1 V 24168 EXAM: - XR CHEST 1 V Location [...] By: [email or web address] Orig Print D/T: S: 08/11/2020 (1954) TATUM [place] NAME: RA[address] PHYS: Lan Munroe MD [place], [place] [address] : 1985 AGE: 34 SEX: M LOC: B.ERS PHONE #: [phone] EXAM DATE: 08/11/2020 STATUS: PRE ER FAX #: [phone] RAD NO: DC Dt: PAGE 1 Signed ReportCOMPREHENSIVE METABOLIC [id number] 12:50:00 Test Item Value Reference Range Interpretation [...] (test code = MG Index/DL The system whharshil h HEMINDEX) generated this result transmit isai [...] to interpret this result as normal/abnormal . [id number] 12:50:00 Test Item Value Reference Range Interpretation [...] change s in troponin levelscharacter istic of MA. [id number] 12:50:00 Test Item Value Reference Range Interpretation Comments ACETAMINOPHEN (test code = ACET) < 2.0 mcG/ML 10.0-30.0 L [id number] 12:50:00 Test Item Value Reference Range Interpretation Comments ALCOHOL (test code = <3 MG/DL 0-10 N MEDICAL ALCOHOL RESULTS. ALC) SITE WAS PREPPE D WITH BETADINE. <10 MG/DL ARE CONSI DERED NEGATIVE. >400 MG/DL MAY BE FATAL.RESULTS F OR MEDICAL USE ONL Y. NOT TO BE USED FOR FOR ENSIC PURPOSES. [id number] 12:39:00 Test Item Value Reference Range Interpretation Comments SALICYLATE (test code 3.1 MG/DL See_Comment N [Auto mated message] = SMITH) The system Wochit generated this result transmitted ref erence range: 2.8-20.0 THER. The reference r johan was not used to interpret this result as normal/abnor mal. COMPREHENSIVE METABOLIC [id number] 12:39:00 Test Item Value Reference Range Interpretation [...] (test code = MG Index/DL The system Wochit HEMINDEX) generated this result transmit isai reference [...] to interpret this result as normal/abnormal . [id number] 12:39:00 Test Item Value Reference Range Interpretation [...] change s in troponin levelscharacter istic of MA. [id number] 12:39:00 Test Item Value Reference Range Interpretation Comments ACETAMINOPHEN (test code = ACET) < 2.0 mcG/ML 10.0-30.0 L [id number] 12:39:00 Test Item Value Reference Range Interpretation Comments ALCOHOL (test code = ALC) MG/DL 0-10 COMPREHENSIVE METABOLIC [id number] 12:34:00 Test Item Value Reference Range Interpretation [...] (test code = MG Index/DL The system harshil h HEMINDEX) generated this result transmit isai [...] to interpret this result as normal/abnormal . [id number] 12:34:00 Test Item Value Reference Range Interpretation Comments TROPONIN-I (test code = TROPI) NG/ML 0.000-0.045 [id number] 12:34:00 Test Item Value Reference Range Interpretation Comments ACETAMINOPHEN (test code = ACET) < 2.0 mcG/ML 10.0-30.0 L [id number] 12:34:00 Test Item Value Reference Range Interpretation Comments ALCOHOL (test code = ALC) MG/DL 0-10 CBC W/AUTO [id number] 12:23:00 Test Item Value Reference Range Interpretation [...] 0.00 K/mm3 0.00-0.05 N NRBC#) CBC WITH [id number] 09:49:19 Test Item Value Reference Range Interpretation Comments WBC (test code = See_Comment [Automated 0390-2) message] The sy stem which generated this result transmitted reference range : 4.20 - 10.70 10*3/?L. The reference range was not used to interpret this result as normal/abnormal . RBC (test code = See_Comment L [Automated 689-8) message] The sy stem which generated this [...] RDW-SD (test code = 42.9 fL 38.5-51.6 50553-2) RDW-CV (test code = 12.4 % 12.1-15.4 788-0) PLT (test code = See_Comment [Automated 777-3) message] The sy stem which generated this result transmitted reference range : 150 - 328 10*3/ ?L. The reference r johan was not used to interpret this result as normal/abnormal . MPV (test code = 9.8 fL 9.8-13.0 72650-3) NRBC/100 WBC (test See_Comment [Automat ed code = 5472917936) message] The system which generated this result transmitted reference range : 0.0 - 10.0 /100 WBCs. The refer ence range was not u sed to interpret th is result as normal/abnormal . NRBC x10^3 (test code <0.01 See_Comment [Auto mated = 8642625283) message] The s ystem which generated this result transmitted reference range : 10*3/?L. The reference range was not used to interpret this result as normal/abnormal . GRAN MAT (NEUT) % 41.9 % (test code = 770-8) IMM GRAN % (test code 0.20 % = 0658183919) LYMPH % (test code = 40.9 % 736-9) MONO % (test code = 13.7 % 5905-5) EOS % (test code = 3.1 % 713-8) BASO % (test code = 0.2 % 706-2) GRAN MAT x10^3(ANC) 1.89 10*3/uL 1.99-6.95 L (test code = 3979069733) IMM GRAN x10^3 (test <0.03 0.00-0.06 code = 7389315232) LYMPH x10^3 (test code 1.85 10*3/uL 1.09-3.23 = 731-0) MONO x10^3 (test code 0.62 10*3/uL 0.36-1.02 = 742-7) EOS x10^3 (test code = 0.14 10*3/uL 0.06-0.53 711-2) BASO x10^3 (test code <0.03 0.01-0.09 = 704-7) Lab Interpretation Abnormal (test code = 16180-1) NPI:[id number] [id number] 09:39:48 Test Item Value Reference Range Interpretation Comments TROPONIN I (test 0.002 ng/mL See_Comment [Automated code = 1713266839) message] The system which generated this result [...] ? Lab Interpretation Normal (test code = 41328-9) NPI:[id number]. METABOLIC PANEL (80259)2020-07-12 09:22:19 Test Item Value Reference Range Interpretation Comments NA (test code = 135 mmol/L 135-145 8968703693) K (test code = 3.6 mmol/L 3.5-5.0 6268969727) CL (test code = 103 mmol/L 98-108 8667695751) CO2 TOTAL (test code = 26 mmol/L 23-31 3138663421) AGAP (test code = 2-16 7203560664) BUN (test code = 17 mg/dL 7-23 8522020375) GLUCOSE (test code = 98 mg/dL 70-110 2620334584) CREATININE (test code = 0.82 mg/dL 0.60-1.25 7259729003) TOTAL BILI (test code = 1.3 mg/dL 0.1-1.1 H 0787496871) CALCIUM (test code = 8.4 mg/dL 8.6-10.6 L 2644127868) T PROTEIN (test code = 6.6 g/dL 6.3-8.2 8374804303) ALBUMIN (test code = 3.7 g/dL 3.5-5.0 8469618322) ALK PHOS (test code = 81 U/L 34-122 5200242629) ALTv (test code = 51 U/L 5-50 H 2-6) AST(SGOT) (test code = 68 U/L 13-40 H 2000638828) eGFR (test code = mL/min/1.73m2 2116693750) GEORGIE (test code = GEORGIE) Association of [...] tests). Lab Interpretation Abnormal (test code = 94023-5) NPI:[id number], [id number] 09:22:14 Test Item Value Reference Range Interpretation Comments LIPASE (test code = 8707946683) 106 U/L 0-220 Lab Interpretation (test code = Normal 70459-2) NPI:[id number] 09:13:54 Test Item Value Reference Range Interpretation Comments APTT Patient (test See_Comment [Automat ed code = 3173-2) message] The system which generated this result transmitted reference range : 23 - 38 Seconds . The reference range was not used to interpr et this result as normal/abnormal . GEORGIE (test code = GEORGIE) The [facility] patient population mean normal value for aPTT is 30 seconds. Lab Interpretation Normal (test code = 28188-3) NPI:[id number] TIME / [id number] 09:11:53 Test Item Value Reference Range Interpretation [...] tions. Lab Interpretation (test Normal code = 19562-2) NPI:[id number] 2019 nCoV [id number] 08:52:00 Test Item Value Reference Range Interpretation Comments Coronavirus 2019 Negative NEGATIVE This test h as been nCoV Bedside (test authorize d by FDA under code = [id number]) an EUA for use byauthorized laboratories; This [...] and/o r diagnosis of CO VID-19 under Nvfluwj92 4(b)(1) of the Act, 21 U.S .C. 360bbb-3(b)(1), unless theauthorizatio n is terminated or r evoked sooner. DRUGS OF ABUSE [id number] 03:16:00 Test Item Value Reference Range Interpretation [...] poses (e.g employment testing). DRUGS OF ABUSE [id number] 02:47:00 Test Item Value Reference Range Interpretation [...] (test code = PHENCU) DRUGS OF ABUSE [id number] 02:38:00 Test Item Value Reference Range Interpretation [...] NEGATIVE (test code = PHENCU) BASIC METABOLIC [id number] 02:34:00 Test Item Value Reference Range Interpretation [...] 9.7 mg/dL 8.4-10.2 N CA) LIVER FUNCTION [id number] 02:34:00 Test Item Value Reference Range Interpretation [...] U/L 38-126 N (test code = ALKP) [id number] 02:34:00 Test Item Value Reference Range Interpretation Comments ACETAMINOPHEN (test code = ACET) <10 ug/mL 10-30 L [id number] 02:34:00 Test Item Value Reference Range Interpretation Comments SALICYLATE (test code < 1.0 mg/dL Negati ve <2.0 = SMITH) mg/dLTherapeuti c Range <20 mg/dL [id number] 02:34:00 Test Item Value Reference Range Interpretation Comments ALCOHOL (test code = < 10 mg/dL <10 ALC) ~~~~~~~~~~~~~~~ ~~~~~~~ ~~~~~~~~~~~~~~~ ~~~~~~~ ~~~~~~ RESU LTS ARE TO BE USED FOR MEDICAL PURPOSES ONLY.F OR LEGAL PURPOSES THE SPECIMEN MUST B E COLLECTED BY A CHAINOF CUSTODY. LEGAL TESTING IS NOT PERFORME D BY THIS FACILITY. ~~~~~~~~~~~~~~~ ~~~~~~~ ~~~~~~~~~~~~~~~ ~~~~~~~ ~~~~~~ URINALYSIS [id number] 02:27:00 Test Item Value Reference Range Interpretation [...] this result as normal/abnormal . CBC W/AUTO [id number] 02:18:00 Test Item Value Reference Range Interpretation [...] x10 3/uL 0.0-0.1 N DRUGS OF ABUSE [id number] 06:47:00 Test Item Value Reference Range Interpretation [...] non-medical pur poses (e.g employment testing). URINALYSIS [id number] 06:29:00 Test Item Value Reference Range Interpretation [...] this result as normal/abnormal . BASIC METABOLIC [id number] 03:28:00 Test Item Value Reference Range Interpretation [...] 9.0 mg/dL 8.4-10.2 N CA) LIVER FUNCTION [id number] 03:28:00 Test Item Value Reference Range Interpretation [...] U/L 38-126 N (test code = ALKP) [id number] 03:28:00 Test Item Value Reference Range Interpretation Comments ACETAMINOPHEN (test code = ACET) <10 ug/mL 10-30 L [id number] 03:28:00 Test Item Value Reference Range Interpretation Comments SALICYLATE (test code < 1.0 mg/dL Negati ve <2.0 = SMITH) mg/dLTherapeuti c Range <20 mg/dL [id number] 03:28:00 Test Item Value Reference Range Interpretation Comments ALCOHOL (test code = < 10 mg/dL <10 ALC) ~~~~~~~~~~~~~~~ ~~~~~~~ ~~~~~~~~~~~~~~~ ~~~~~~~ ~~~~~~ RESU LTS ARE TO BE USED FOR MEDICAL PURPOSES ONLY.F OR LEGAL PURPOSES THE SPECIMEN MUST B E COLLECTED BY A CHAINOF CUSTODY. LEGAL TESTING IS NOT PERFORME D BY THIS FACILITY. ~~~~~~~~~~~~~~~ ~~~~~~~ ~~~~~~~~~~~~~~~ ~~~~~~~ ~~~~~~ CBC W/AUTO [id number] 00:30:00 Test Item Value Reference Range Interpretation [...] 3/uL 0.0-0.1 N - CT C-SPINE W/O [id number] 23:37:00 Patient Name: ARLINE RAO Unit No: [id number] EXAMS: CPT CODE: [id number] CT C-SPINE W/O CONT 83003 Location: CT cervical spine, 08/29/19 TECHNIQUE: CT [...] Steward CTDI: 16.41 DLP: 366.20 Trnscrpt: 08/29/2019 (2241) [email or web address] TATUM Mcarthur NAME: [address] PHYS: Lan Munroe MD [place] [address] : 1985 AGE: 33 SEX: M LOC: KarenERS PHONE #: [phone] EXAM DATE: 08/29/2019 STATUS: REG ER FAX #: [phone] RAD #: D/C DT PAGE 1 Signed Report Patient Name: ARLINE RAO Unit No: [id number] EXAMS: CPT CODE: [id number] CT C-SPINE W/O CONT 41236 <Continued> Orig Print D/T: S: 08/29/2019 (1792) JYOTI Lyubov NAME: [address] PHYS: Lan Munroe MD [place] [address] : 1985 AGE: 33 SEX: M LOC: [facility] PHONE #: [phone] EXAM DATE: 08/29/2019 STATUS: REG ER FAX #: [phone] RAD #: D/C DT PAGE 2 Signed Report- CT HEAD/BRAIN W/O [id number] 23:33:00 Patient Name: ARLINE RAO Unit No: [id number] EXAMS: CPT CODE: [id number] CT HEAD/BRAIN W/O CONT 78908 Location: H3 CT head, 08/29/19 COMPARISON EXAMS: None of [...] 45.96 DLP: 757.79 Trnscrpt: 08/29/2019 (2333) HeatherDAS[facility] Elfrida NAME: ARLINE RAO [address] [place] [address] PHYS: Lan Munroe MD, [place] [address] : 1985 AGE: 33 SEX: M LOC: [facility] PHONE #:[phone] EXAM DATE: 08/29/2019 STATUS: REG ER FAX #: [phone] RAD #: D/C DT PAGE 1 Signed Report Patient Name: ARLINE RAO Unit No: [id number] EXAMS: CPT CODE: [id number] CT HEAD/BRAIN W/O CONT 85723 <Continued> Orig Print D/T: S: 08/29/2019 (2336) JYOTIVida Mcarthur NAME: [address] PHYS: Lan Munroe MD, [place] [address] : 1985 AGE: 33 SEX: M LOC: B.ERS PHONE #: [phone] EXAM DATE:08/29/2019 STATUS: REG ER FAX #: [phone] RAD #: D/C DT PAGE 2 Signed ReportCOMPREHENSIVE METABOLIC [id number] 23:28:00 Test Item Value Reference Range Interpretation [...] code = LIPINDEX) MG Index/DL CBC W/AUTO [id number] 23:07:00 Test Item Value Reference Range Interpretation [...] 0.00 K/mm3 0.00-0.05 N NRBC#) BASIC METABOLIC [id number] 14:23:00 Test Item Value Reference Range Interpretation [...] NORMAL code = LIPINDEX) Index/DL HEPATIC FUNCTION [id number] 14:23:00 Test Item Value Reference Range Interpretation [...] 68 Unit/L 45-117 N code = ALKP) [id number] 14:23:00 Test Item Value Reference Range Interpretation Comments ALCOHOL (test code = 3 MG/DL 0-10 N MEDICAL ALCOHOL RESULTS. ALC) SITE WAS PREPPE D WITH BETADINE. <10 MG/DL ARE CONSI DERED NEGATIVE. >400 MG/DL MAY BE FATAL.RESULTS F OR MEDICAL USE ONL Y. NOT TO BE USED FOR FOR ENSIC PURPOSES. BASIC METABOLIC [id number] 14:17:00 Test Item Value Reference Range Interpretation [...] 1 NORMAL = LIPINDEX) Index/DL HEPATIC FUNCTION [id number] 14:17:00 Test Item Value Reference Range Interpretation [...] TOTAL (test code Unit/L 45-117 = ALKP) [id number] 14:17:00 Test Item Value Reference Range Interpretation Comments ALCOHOL (test code = ALC) MG/DL 0-10 CBC W/O [id number] 14:04:00 Test Item Value Reference Range Interpretation [...] = 9.4 fL 7.6-10.4 N MPV) RPR Zbscajrysqw8620-10-21 14:01:19 Test Item Value Reference Range Interpretation [...] = 12-17-2019 N Expiration Dt) Thyroid Stimulating Rakhydk6749-69-11 09:09:16 Test Item Value Reference Range Interpretation Comments TSH (test code = TSH) 0.418 mIU/mL 0.270-4.200 Lipid Svmyk6443-56-01 08:59:32 Test Item Value Reference Range Interpretation Comments Cholesterol Total 131 mg/dL 0-200 RISK OF HE ART (test code = DISEASEPublishe d by Cholesterol Total) [employer] Giovanna lyte Optimal Borderl ine [...] LDL/HDL Ratio=L DL Calc/HDL Chol Thyroid Stimulating [id number] 10:03:42 Test Item Value Reference Range Interpretation Comments TSH (test code = TSH) 1.560 mIU/mL 0.270-4.200 Lipid [id number] 09:52:10 Test Item Value Reference Range Interpretation Comments Cholesterol Total 210 mg/dL 0-200 H RISK OF HE ART (test code = DISEASEPublishe d by Cholesterol Total) [employer] Giovanna lyte Optimal Borderl ine [...] is LDL/HDL Ratio=L DL Calc/HDL Chol RPR Lkjzcloffkc6599-22-91 11:37:43 Test Item Value Reference Range Interpretation Comments RPR Qual (test code = RPR Qual) Non-Reactive Non-Reactive Reactive Control (test code = Reactive Reactive Control) Weak Reactive Control (test Weak Reactive code = Weak Reactive Control) Non-Reactive Control (test code Non-Reactive = Non-Reactive Control) Lot # (test code = Lot #) [id number] N Expiration Dt (test code = 12-17-19 N Expiration Dt) Urinalysis Bydxyxuhpry3738-17-64 23:07:47 Test Item Value Reference Range Interpretation Comments UA WBC (test code = UA WBC) None Seen 0-5 UA RBC (test code = UA RBC) None Seen 0-5 UA Bacteria (test code = UA None Seen Bacteria) UA Squam Epithelial (test code = UA 0-5 Squam Epithelial) Comprehensive Metabolic [id number] 22:29:50 Test Item Value Reference Range Interpretation [...] A/G 1.7 ratio N Ratio) Comprehensive Metabolic [id number] 22:29:50 Test Item Value Reference Range Interpretation [...] the National Kidney Foundation, http://nkdep.ni h.gov Alcohol Mlyem5327-04-82 22:29:50 Test Item Value Reference Range Interpretation Comments Ethanol Level (test 0.06 g/dL 0.00-0.01 H Intoxica isai 0.080 g/dL code = Ethanol or more Level) Ethanol Inst (test 58 N code = Ethanol Inst) Comprehensive Metabolic [id number] 22:29:50 Test Item Value Reference Range Interpretation [...] e have not been validated by [facility] MDRD study and should be interpreted wit h caution. eGFR R esult Interpretation: eGFR > or = 60 is in the Normal RangeeGF R < 60 may mean kid tran diseaseeGFR < 1 5 may mean kidney failure Rang es recommended by the National Kidney Foundation, http://nkdep.ni h.gov Complete Blood Count with Nthqtsnjpmse9891-10-33 22:14:44 Test Item Value Reference Range Interpretation [...] code = IPF) 0 % N Automated Xakvwvanvjvi6912-26-13 22:14:44 Test Item Value Reference Range Interpretation Comments Neutro Auto (test code = Neutro 72.2 % 36.0-70.0 H Auto) Lymph Auto (test code = Lymph Auto) 19.6 % 12.0-44.0 Marion Auto (test code = Marion Auto) 6.9 % 0.0-11.0 Eos, Auto (test code = Eos, Auto) 0.0 % 0.0-7.0 Basophil Auto (test code = Basophil 0.4 % 0.0-2.0 Auto) Neutro Absolute (test code = Neutro 6.1 x10 1.6-7.4 Absolute) Lymph Absolute (test code = Lymph 1.67 x10 .50-4.60 Absolute) Marion Absolute (test code = Marion .59 x10 .00-1.20 Absolute) Eos Absolute (test code = Eos 0.00 x10 0.00-0.74 Absolute) Baso Absolute (test code = Baso 0.03 x10 0.00-0.21 Absolute) IG [id number] 22:14:44 Test Item Value Reference Range Interpretation Comments IG (test code = IG) 0.9 % 0.0-5.0 IG Abs (test code = IG Abs) 0 x10 N Urine Drug [id number] 22:14:38 Test Item Value Reference Range Interpretation [...] if desired . Urinalysis with Microscopic if cwickttxq6299-42-46 21:53:48 Test Item Value Reference Range Interpretation [...] Ind?) rule GL_SJM_UA_MICRO _IN D Urine Drug Gtrcay2510-16-39 09:31:28 Test Item Value Reference Range Interpretation [...] matory test if desired . Comprehensive Metabolic [id number] 09:17:22 Test Item Value Reference Range Interpretation [...] A/G 2.1 ratio N Ratio) Comprehensive Metabolic Prgty1606-84-00 09:17:22 Test Item Value Reference Range Interpretation [...] National Kidney Foundation, http://nkdep.ni h.gov Comprehensive Metabolic Vcqaz4413-61-10 09:17:22 Test Item Value Reference Range Interpretation [...] e have not been validated by [facility] MDRD study and should be interpreted wit h caution. eGFR R esult Interpretation: eGFR > or = 60 is in the Normal RangeeGF R < 60 may mean kid tran diseaseeGFR < 1 5 may mean kidney failure Rang es recommended by the National Kidney Foundation, http://nkdep.ni h.gov IG Qplmv1110-20-79 09:08:10 Test Item Value Reference Range Interpretation Comments IG (test code = IG) 0.4 % 0.0-5.0 IG Abs (test code = IG Abs) 0 x10 N Complete Blood Count with Ejyfcbttqgxp6116-56-42 09:08:09 Test Item Value Reference Range Interpretation [...] code = IPF) 0 % N Automated Jdwrousxotlq7618-55-09 09:08:09 Test Item Value Reference Range Interpretation Comments Neutro Auto (test code = Neutro 73.6 % 36.0-70.0 H Auto) Lymph Auto (test code = Lymph Auto) 17.3 % 12.0-44.0 Marion Auto (test code = Marion Auto) 8.3 % 0.0-11.0 Eos, Auto (test code = Eos, Auto) 0.1 % 0.0-7.0 Basophil Auto (test code = Basophil 0.3 % 0.0-2.0 Auto) Neutro Absolute (test code = Neutro 5.1 x10 1.6-7.4 Absolute) Lymph Absolute (test code = Lymph 1.19 x10 .50-4.60 Absolute) Marion Absolute (test code = Marion .57 x10 .00-1.20 Absolute) Eos Absolute (test code = Eos 0.01 x10 0.00-0.74 Absolute) Baso Absolute (test code = Baso 0.02 x10 0.00-0.21 Absolute) ADC / LCC - DRUG SCREEN [id number] 02:56:00 Test Item Value Reference Range Interpretation Comments BENZO U (test code = Negative Negative 8274515230) EARL U (test code = Negative Negative 9590744385) AMPHET (test code = Presumptive Positive Negative A 8920873622) THC (test code = Negative Negative 2184476828) METHADONE (test code = Negative Negative 0500436171) Meth U (test code = Presumptive Positive Negative A 9045748236) OPIATES (test code = Negative Negative 2564672282) Cocaine Metabolite (test Negative Negative code = 0453623230) PROPOXY (test code = Negative Negative 6857818182) Tric U (test code = Negative Negative 3811008830) PCP (test code = Negative Negative 8425133100) OXYCOD (test code = Negative Negative 1302964652) GEORGIE (test code = GEORGIE) Urine Drug [...] testing). Lab Interpretation (test Abnormal code = 73178-4) NPI:[id number] 02:40:00 Test Item Value Reference Range Interpretation Comments ACETAMINOP (test code = <10.0 10-30 L 0535147905) GEORGIE (test code = GEORGIE) Toxic: Greater than 200 ug/mL @ 4 hour post ingestion or greater than 50 ug/mL @ 12 hour post ingestion Lab Interpretation (test Abnormal code = 08146-4) NPI:[id number] 02:40:00 Test Item Value Reference Range Interpretation Comments SALICYLATE (test code <10 mg/L = 2511998474) GEORGIE (test code = GEORGIE) Therapeutic Range:? Analgesic and Antipyretic Use? 20-100 mg/L? Anti-Inflammatory Use? 100-250 mg/LToxic Range:? Greater than 300 mg/L NPI:[id number] (ETOH) Ttrhi5483-27-94 02:40:00 Test Item Value Reference Range Interpretation Comments ALCOHOL (test code = <10 mg/dL 0521046793) GEORGIE (test code = GEORGIE) <10 Nllmpvcs56-295 Toxic>100 Depression of AIR/[employer] EXPORT CLERK>400 Fatalities Reported NPI:[id number] Metabolic Panel (NA, K, CL, CO2, Glucose, BUN, Creatinine, CA)2018-11-05 02:35:00 Test Item Value Reference Range Interpretation Comments NA (test code = 142 mmol/L 135-145 2528892726) K (test code = 3.5 mmol/L 3.5-5 7225848114) CL (test code = 107 mmol/L 98-108 8457795982) CO2 TOTAL (test code = 25 mmol/L 23-31 6744127098) AGAP (test code = 2-16 4628281721) BUN (test code = 12 mg/dL 7-23 1754438445) GLUCOSE (test code = 90 mg/dL 70-110 2341537650) CREATININE (test code 0.77 mg/dL 0.6-1.25 = 4823867143) CALCIUM (test code = 9.3 mg/dL 8.6-10.6 5735545064) eGFR Calculation mL/min/1.73m2 (Non-) (test code = 2128134897) eGFR Calculation mL/min/1.73m2 () (test code = 7256968649) GEORGIE (test code = GEORGIE) Association of [...] or urine or abnormalities in imaging tests). NPI:[id number] Function Panel (ALB, T.PRO, BILI T, BU/BC, ALT, AST, ALK PHOS)2018-11-05 02:35:00 Test Item Value Reference Range Interpretation Comments TOTAL BILI (test code = 0559711050) 1.0 mg/dL 0.1-1.1 BILI UNCON (test code = 4388967232) 0.8 mg/dL 0.1-1.1 BILI CONJ (test code = 8611492339) 0.0 mg/dL 0-0.3 T PROTEIN (test code = 9170848501) 7.0 g/dL 6.3-8.2 ALBUMIN (test code = 1572798390) 4.4 g/dL 3.5-5 ALK PHOS (test code = 6440662855) 71 U/L 34-122 ALT(SGPT) (test code = 3928289941) 39 U/L 9-51 AST(SGOT) (test code = 4346178372) 40 U/L 13-40 Lab Interpretation (test code = Normal 89342-0) NPI:[id number] WITH YBDNQEZXBQFS1558-59-16 02:10:00 Test Item Value Reference Range Interpretation Comments WBC (test code = See_Comment [Automated 4890-2) message] The sy stem which generated this result transmitted reference range : 4.20 - 10.70 10*3/?L. The reference range was not used to interpret this result as normal/abnormal . RBC (test code = See_Comment [Automated 554-8) message] The sy stem which generated this [...] RDW-SD (test code = 46.3 fL 38.5-51.6 38589-0) RDW-CV (test code = 13.1 % 12.1-15.4 788-0) PLT (test code = See_Comment [Automated 777-3) message] The sy stem which generated this result transmitted reference range : 150 - 328 10*3/ ?L. The reference r johan was not used to interpret this result as normal/abnormal . MPV (test code = 9.9 fL 9.8-13 74682-3) NRBC/100 WBC (test See_Comment [Automat ed code = 0510272174) message] The system which generated this result transmitted reference range : 0.0 - 10.0 /100 WBCs. The refer ence range was not u sed to interpret th is result as normal/abnormal . NRBC x10^3 (test code <0.01 See_Comment [Auto mated = 0508679704) message] The s ystem which generated this result transmitted reference range : 10*3/?L. The reference range was not used to interpret this result as normal/abnormal . GRAN MAT (NEUT) % 50.8 % (test code = 770-8) IMM GRAN % (test code 0.60 % = 0000441113) LYMPH % (test code = 33.8 % 736-9) MONO % (test code = 14.4 % 5905-5) EOS % (test code = 0.0 % 713-8) BASO % (test code = 0.4 % 706-2) GRAN MAT x10^3(ANC) 2.62 10*3/uL 1.99-6.95 (test code = 8919047967) IMM GRAN x10^3 (test 0.03 10*3/uL 0-0.06 code = 1479399389) LYMPH x10^3 (test code 1.74 10*3/uL 1.09-3.23 = 731-0) MONO x10^3 (test code 0.74 10*3/uL 0.36-1.02 = 742-7) EOS x10^3 (test code = <0.03 0.06-0.53 L 711-2) BASO x10^3 (test code <0.03 0.01-0.09 = 704-7) Lab Interpretation Abnormal (test code = 05434-4) NPI:[id number] Metabolic Ltdve8900-11-24 13:14:00 Test Item Value Reference Range Interpretation [...] is not provided , and the patient isAngy-Mamadou can, multiply by 1.2 12. If sex [...] by the National Kidney Foundation,http ://nkd ep.nih.gov [id number] 13:09:00 Test Item Value Reference Range Interpretation [...] g/dL 0.00-0.01 N code = ETOHU) Urinalysis Vubijsnv2021-49-79 12:59:00 Test Item Value Reference Range Interpretation Comments Color (test code = Yellow Yellow,Straw,Pl N COLOR) yellow Clarity (test code = Clear Clear N CLAR) Specific [place] (test 1.027 1.001-1.035 N code = SPGR) [...] code = Few /HPF BACT) CBC with Drbehtcqmrwu8829-03-31 12:42:00 Test Item Value Reference Range Interpretation [...] code = ALYMPH) 2.3 K/cumm 0.5-4.6 N Marion Abs (test code = AMONO) 0.6 K/cumm 0.0-1.2 N Eos Abs (test code = AEOS) 0.09 K/cumm 0.00-0.74 N Baso Abs (test code = ABASO) 0.0 K/cumm 0.00-0.21 N Hepatic Function Jyekl7858-87-20 18:55:00 Test Item Value Reference Range Interpretation [...] = ALT) 47 U/L 1-41 H HIV Bnuxd1025-99-74 12:45:00 Test Item Value Reference Range Interpretation Comments HIV 1/2 Antibody Non-Reactive Non-Reactive N HIV1/2 Anti body screen (test code = result indicate s the HIV1/2AB) absence of HIV1 and GFB9yckakslxu.H owever, A Non-Reactive screen result does not [...] rule o ut exposure or infection.If ac [place] HIV-1 is suspec isai, HIV RNA Quantit ative is recommended. RPR, Erpg0327-40-13 21:30:00 Test Item Value Reference Range Interpretation Comments RPR (test code = RPR) Non-Reactive Non-Reactive N Thyroid Stimulating Hormone (TSH)2017-03-17 09:55:00 Test Item Value Reference Range Interpretation Comments TSH (test code = TSH) 0.94 mIU/mL 0.270-4.200 N Lipid Uyztzcy8293-58-44 09:53:00 Test Item Value Reference Range Interpretation Comments Cholesterol (test 124 mg/dL 0-200 N code = CHOL) Triglycerides (test 61 mg/dL 9-200 N code = TRIG) HDL (test code = 47 mg/dL 40-60 N HDL) Chol/HDL (test code 2.6 Ratio 0.0-5.0 N = CHOLPHDL) LDL, Calculated 65 0-130 N (NOTE)RISK O F HEART (test code = LDLC) DISEASEPu blished by [employer] Heart AssociationAnal yte Optim al Boderline Increased RiskC HOL <200 200-239 >240TRI G <150 150-199 >200HDL Male: >60 <40HDL Female: >60 <50 LDL < 100 130-15 9 >160 LDL NEAR OPTIMAL IS 100- 129 VLDL (test code = 12 mg/dL 5-40 N VLDL) LDL/HDL (test code = 1 LDLPHDL) Urinalysis Uhmiqqbk4337-30-19 15:09:00 Test Item Value Reference Range Interpretation Comments Color (test code = Yellow Yellow,Straw,Pl N COLOR) yellow Clarity (test code = Clear Clear N CLAR) Specific [place] (test 1.028 1.001-1.035 N code = SPGR) [...] = 0-1 Granular /HPF CASTS) Comprehensive Metabolic Fmfgm1244-65-84 14:24:00 Test Item Value Reference Range Interpretation [...] is not provided , and the patient isAfjia-Amector can, multiply by 1.2 12. If sex [...] by the National Kidney Foundation,http ://nkd ep.nih.gov [id number] 14:20:00 Test Item Value Reference Range Interpretation [...] 0.00-0.01 N code = ETOHU) CBC with Ipeyqfdibciz1371-03-70 14:08:00 Test Item Value Reference Range Interpretation [...] code = ALYMPH) 2.2 K/cumm 0.5-4.6 N Marion Abs (test code = AMONO) 0.9 K/cumm 0.0-1.2 N Eos Abs (test code = AEOS) 0.06 K/cumm 0.00-0.74 N Baso Abs (test code = ABASO) 0.0 K/cumm 0.00-0.21 N
[2021-06-22 18:09] LABS: Absolute Lymphocytes (CBC) 1.6 K/uL (0.7-4.9); Hematocrit 46.3 % (39.6-49.0); Lymphocytes % 31.1 % (15.3-44.8); MPV 7.7 fL (7.6-11.3); Protime INR 1.05; RBC Red Blood Cell Count 4.87 M/uL (4.33-5.43)
[2021-06-22 18:23] LABS: Urine Blood Trace-intact (Negative); Urine Glucose Negative (Negative); Urine Protein Negative (Negative)
[2021-06-22 18:26] LABS: BUN Blood Urea Nitrogen 12 mg/dL (7-18); Bicarbonate 29 mmol/L (21-32); Glucose Level 102 mg/dL (74-106); Magnesium 2.3 mg/dL (1.8-2.4); Potassium 3.9 mmol/L (3.5-5.1); Sodium Level 139 mmol/L (136-145); Troponin High Sensitivity 5.5 pg/mL (<58.9)
[2021-06-22 18:49] LABS: Urine Amorphous Sediment 3+ /HPF (NONE SEEN); Urine Bacteria 20-50 /HPF (NONE SEEN); Urine RBC <5 /HPF (NONE SEEN)
[2021-06-22 18:53] LABS: Barbiturates NEGATIVE (NEGATIVE); Benzodiazepines NEGATIVE (NEGATIVE); Cocaine NEGATIVE (NEGATIVE); METHAMPHETAM POSITIVE (NEGATIVE); Methadone NEGATIVE (NEGATIVE); Opiates NEGATIVE (NEGATIVE); Phencyclidine NEGATIVE (NEGATIVE); THC Cannibis NEGATIVE (NEGATIVE)
--- NOTE | 2021-06-22 19:32 | RAD REPORT ---
EXAM DESCRIPTION: RAD - Chest Single View - 06/22/2021 6:52 pm CLINICAL HISTORY: CHEST PAIN COMPARISON: Chest Single View dated 06/12/2021; Chest Single View dated 06/10/2021; Chest Single View dated 05/17/2021; Chest Single View dated 05/06/2021 FINDINGS: Lines: None. Lungs: No evidence of edema or pneumonia. Pleural: No significant pleural effusions or pneumothorax. Cardiac: The heart size is within normal limits. Bones: No acute fractures. Other: IMPRESSION: No acute cardiopulmonary disease.
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
[2021-06-22] MEDS ORDERED: CEFTRIAXONE 1000 MG/VIAL ONE (20:30)
[2021-06-22 21:46] LABS: SARS-COV-2 RT PCR POSITIVE (NEGATIVE)
[2021-06-23] MEDS ORDERED: LORazepam 2 MG/ML VIAL ONE (02:10)
[2021-06-23] MEDS ORDERED: HYDROCODONE/APAP 10/325 TAB ONE ×2 (02:11→10:10)
[2021-06-23 10:31] VITALS: TEMP 97.8
[2021-06-23 10:32] VITALS: BP 137/74; O2SAT 98
--- NOTE | 2021-06-24 09:00 | EKG ---
Test Date: 2021-06-22 Test Time: 17:42:47 [place]spring Studder: MB MEASUREMENT RESULTS: Intervals: Rate: 86 [place]: 142 QRSD: 82 QT: 332 QTc: 397 [place]: P: 36 [place]: 142 QRS: 76 T: 54 INTERPRETIVE STATEMENTS: Normal sinus rhythm with sinus arrhythmia Normal ECG Compared to ECG 06/12/2021 23:38:37 No significant changes Electronically Signed On 06-24-21 08:56:54 CDT by Cj Anderson
== END 2021-06-23 10:24 | disposition home or self-care (01) ==
LOC: ER 17:23
DX: U07.1 COVID-19 (principal); F31.9 Bipolar disorder, unspecified; T43.625A Adverse effect of amphetamines, initial encounter; N39.0 Urinary tract infection, site not specified; F20.9 Schizophrenia, unspecified; Z88.5 Allergy status to narcotic agent; Z88.6 Allergy status to analgesic agent; Z88.8 Allergy status to other drugs, medicaments and biological substances
CPT/HCPCS: 93005; 87088; 85025; 87086; 80048; 36415; 80320; 83735; 80329 ×2; 85610; 87077; 87186; 84484; 0240U; 80307; 71045; 96375; 96374; 99285; 81003; 81015

== ENCOUNTER 2021-07-23 15:31 | Emergency (ER) | payer OTHER ==
--- OUTSIDE RECORDS SUMMARY | 2021-07-23 15:39 | XMS REPORT | Continuity of Care Document ---
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 Amplification (TMA) technology to rapidly detect the SARS-CoV-2 (COVID-19) virus from respiratory samples. In accordance with the FDA's guidance document "Policy for Diagnostic Tests for Coronavirus Disease- 2019 during the Public Health Emergency", this test was developed, and its performance characteristics were verified by the [facility] molecular diagnostics laboratory and is authorized for clinical diagnostic use. This laboratory is certified under the Clinical Laboratory Improvement Amendments (CLIA) as qualified to perform high complexity clinical laboratory testing.SARS-CoV-2 RNA Resp Ql BETY+cdlbg5179-37-62 00:53:33 Test Item Value Reference Range Interpretation Comments Hospitalized? (test code Yes = 71242-0) ICU? (test code = No 78580-4) Symptomatic as defined No by CDC? (test code = 18817-3) Employed in Healthcare? No (test code = 47619-1) Resident in a congregate No care setting (including nursing homes, residential care for people with intellectual and developmental disabilities, psychiatric treatment facilities, group homes, board and care homes, homeless senior care, foster care or other): (test code = 95274-1) ? (test code = No 73292-6) SARS-CoV-2 RNA Resp Ql DETECTED Not Detected A INTER PRETATION: This BETY+probe (test code = [place] sample [place] 73745-2) detectable RNA present for the SARS-CoV-2 Coronavirus [...] [facility] and is authorized for [...] NONE A MUCU) DRUGS OF ABUSE SCREEN [id number] 13:19:00 Test Item Value Reference Interpretation Comments [...] this result as normal/abnormal . BASIC METABOLIC [id number] 09:24:00 Test Item Value Reference Range Interpretation [...] this result as normal/abnormal . HEPATIC FUNCTION [id number] 09:24:00 Test Item Value Reference Range Interpretation [...] 59 Unit/L 45-117 N code = ALKP) [id number] 09:24:00 Test Item Value Reference Range Interpretation Comments ACETAMINOPHEN (test code = ACET) <2.0 mcG/ML 10.0-30.0 L [id number] 09:24:00 Test Item Value Reference Range Interpretation Comments ALCOHOL (test code = < 3 MG/DL 0-10 N MEDICAL ALCOHOL ALC) RESULTS. SITE W PREPPED WITH BE TADINE. <10 MG/DL ARE CONSIDERED NEGA TIVE. >400 MG/DL MAY BE FATAL.RESULTS F OR MEDICAL USE ONL Y. NOT TO BE USED FOR FORENSIC PURPOSES. [id number] 07:55:00 Test Item Value Reference Range Interpretation Comments SALICYLATE (test code < 1.7 MG/DL See_Comment L RESULT <2.8 IS = SMITH) CONSIDERED NEGA TIVE FOR SALICYLATE. [Automated mess age] The system [employer] [facility] generated this result transmitted ref erence range: 2.8-20.0 THER. The reference r johan was not used to interpret this result as normal/abnor mal. CBC W/AUTO [id number] 07:10:00 Test Item Value Reference Range Interpretation [...] 0.00 K/mm3 0.00-0.05 N NRBC#) ECG 12 [id number] 22:52:05 Test Item Value Reference Range Interpretation Comments Ventricular rate (test code = 253) Atrial rate (test code = 255) HI interval (test code = 266) QRSD interval [...] available-Electronica lly Signed By Doron Judge MD ([id number]) on 11/26/2020 5:52:[address]2021-10-11 22:52:05 Test Item Value Reference Range Interpretation Comments Ventricular rate (test code = 253) Atrial rate (test code = 255) HI interval (test code = 266) QRSD interval [...] available-Electronica lly Signed By Doron Judge MD ([id number]) on 11/26/2020 5:52:04 PM [address]2021-10-11 22:52:05 Test Item Value Reference Range Interpretation Comments Ventricular rate (test code = 253) Atrial rate (test code = 255) HI interval (test code = 266) QRSD interval [...] available-Electronica lly Signed By Doron Judge MD ([id number]) on 11/26/2020 5:52:04 PM [address]2021-10-11 22:52:05 Test Item Value Reference Range Interpretation Comments Ventricular rate (test code = 253) Atrial rate (test code = 255) HI interval (test code = 266) QRSD interval [...] available-Electronica lly Signed By Doron Judge MD ([id number]) on 11/26/2020 5:52:04 PM [address]2021-10-11 22:52:05 Test Item Value Reference Range Interpretation Comments Ventricular rate (test code = 253) Atrial rate (test code = 255) HI interval (test code = 266) QRSD interval [...] available-Electronica lly Signed By Doron Judge MD ([id number]) on 11/26/2020 5:52:04 PM [facility]2021-09-30 07:28:23 Test Item Value Reference Range Interpretation Comments Urine culture (test SEE COMMENT Bacteriu winston screen code = 4298312) negative. [facility]2021-09-30 07:28:23 Test Item Value Reference Range Interpretation Comments Urine culture (test SEE COMMENT Bacteriu winston screen code = 1731824) negative. [facility]2021-09-30 07:28:23 Test Item Value Reference Range Interpretation Comments Urine culture (test SEE COMMENT Bacteriu winston screen code = 9645554) negative. [facility]2021-09-30 07:28:23 Test Item Value Reference Range Interpretation Comments Urine culture (test SEE COMMENT Bacteriu winston screen code = 1961770) negative. [facility]2021-09-30 07:28:23 Test Item Value Reference Range Interpretation Comments Urine culture (test SEE COMMENT Bacteriu winston screen code = 0505078) negative. Uatsdin LdruhvkpDAYH-ReS-2 (COVID-19) RNA [Presence] in Respiratory specimen by BETY with probe [id number] 02:40:47 Test Item Value Reference Range Interpretation Comments SARS-CoV-2 (COVID-19) RNA Not detected Not-Detected [Presence] in Respiratory specimen by BETY with probe detection (test code = 58138-1) Whether patient is employed in a healthcare setting (test code = 12938-0) Whether the patient has symptoms related to condition of interest (test code = 03300-0) Patient was hospitalized because of this condition (test code = 81388-6) Whether the patient was admitted to intensive care unit (ICU) for condition of interest (test code = 78378-1) Whether patient resides in a congregate care setting (test code = 99258-7) SARS-CoV-2 (COVID-19) RNA [Presence] in Respiratory specimen by BETY with probe [id number] 03:12:16 Test Item Value Reference Range Interpretation Comments SARS-CoV-2 (COVID-19) RNA Not detected Not-Detected [Presence] in Respiratory specimen by BETY with probe detection (test code = 53811-1) Whether patient is employed in a healthcare setting (test code = 74389-6) Whether the patient has symptoms related to condition of interest (test code = 52324-8) Patient was hospitalized because of this condition (test code = 45566-4) Whether the patient was admitted to intensive care unit (ICU) for condition of interest (test code = 72419-8) Whether patient resides in a congregate care setting (test code = 52454-0) BASIC METABOLIC [id number] 09:20:00 Test Item Value Reference Range Interpretation [...] message] (test code = Index/DL The system [employer]) generated this result transmit isai reference range [...] as normal/abnormal . Specimen comments: CCHEPATIC FUNCTION [id number] 09:20:00 Test Item Value Reference Range Interpretation [...] code = ALKP) Specimen comments: CCTHYROID STIMULATING [id number] 09:20:00 Test Item Value Reference Range Interpretation Comments THYROID STIMULATING HORMONE 0.619 mc IU/ML 0.340-4.820 N (test code = TSH) Specimen comments: [id number] 09:20:00 Test Item Value Reference Range Interpretation [...] change s in troponin levelscharacter istic of [place]. Specimen comments: [id number] 09:20:00 Test Item Value Reference Range Interpretation Comments ACETAMINOPHEN (test code = ACET) <2.0 mcG/ML 10.0-30.0 L Specimen comments: [id number] 09:20:00 Test Item Value Reference Range Interpretation Comments ALCOHOL (test code = < 3 MG/DL 0-10 N MEDICAL ALCOHOL ALC) RESULTS. SITE W PREPPED WITH BE TADINE. <10 MG/DL ARE CONSIDERED NEGA TIVE. >400 MG/DL MAY BE FATAL.RESULTS F OR MEDICAL USE ONL Y. NOT TO BE USED FOR FORENSIC PURPOSES. Specimen comments: [id number] 08:59:00 Test Item Value Reference Range Interpretation Comments SALICYLATE (test code < 1.7 MG/DL See_Comment L RESULT <2.8 IS = SMITH) CONSIDERED NEGA TIVE FOR SALICYLATE. [Automated mess age] The system [employer] generated this result transmitted ref erence range: 2.8-20.0 THER. The reference r johan was not used to interpret this result as normal/abnor mal. Specimen comments: CCBASIC METABOLIC [id number] 08:55:00 Test Item Value Reference Range Interpretation [...] message] (test code = Index/DL The system [employer]) generated this result transmit isai reference range [...] this result as normal/abnormal . Specimen comments: [facility] [id number] 08:55:00 Test Item Value Reference Range Interpretation [...] code = ALKP) Specimen comments: CCTHYROID STIMULATING [id number] 08:55:00 Test Item Value Reference Range Interpretation Comments THYROID STIMULATING HORMONE 0.619 mc IU/ML 0.340-4.820 N (test code = TSH) Specimen comments: [id number] 08:55:00 Test Item Value Reference Range Interpretation [...] change s in troponin levelscharacter istic of [place]. Specimen comments: [id number] 08:55:00 Test Item Value Reference Range Interpretation Comments ACETAMINOPHEN (test code = ACET) mcG/ML 10.0-30.0 Specimen comments: [id number] 08:55:00 Test Item Value Reference Range Interpretation Comments ALCOHOL (test code = < 3 MG/DL 0-10 N MEDICAL ALCOHOL ALC) RESULTS. SITE W PREPPED WITH BE TADINE. <10 MG/DL ARE CONSIDERED NEGA TIVE. >400 MG/DL MAY BE FATAL.RESULTS F OR MEDICAL USE ONL Y. NOT TO BE USED FOR FORENSIC PURPOSES. Specimen comments: CCCBC W/AUTO [id number] 08:10:00 Test Item Value Reference Range Interpretation [...] NRBC#) Specimen comments: CC- XR CHEST 1 [id number] 03:12:00 [facility] : 1985 Sex: M FAX: Mahin Smallwood MD [phone] [place]: St: [facility] FAX: Vilma Coker [phone] Patient Name: ARLINE RAO Unit No: [id number] EXAMS: CPT CODE: [id number] XR CHEST 1 V 47034 EXAM: - XR CHEST 1 V HISTORY: [...] 10/16/2020 (314) TATUM Mcarthur NAME: ARLINE RAO Darvin [address] [place] [address] PHYS: [facility].03 - Vil[place], [place] [address] : 1985 AGE: 35 SEX: M LOC: [facility] PHONE #: [phone] EXAM DATE: 10/16/2020 STATUS: JUDE FERNANDEZ FAX #: [phone] RAD NO: DC Dt: PAGE 1 Signed ReportCOVID 19 Asymptomatic IH [id number] 06:58:00 Test Item Value Reference Range Interpretation Comments COVID 19 Asymptomatic IH AG (test POSITIVE Negative A code = COVNONPUIAG) BASIC METABOLIC [id number] 04:22:00 Test Item Value Reference Range Interpretation [...] 8.3 mg/dL 8.4-10.2 L CA) LIVER FUNCTION [id number] 04:22:00 Test Item Value Reference Range Interpretation [...] U/L 38-126 N (test code = ALKP) [id number] 04:22:00 Test Item Value Reference Range Interpretation Comments ALCOHOL (test code = < 10 mg/dL <10 ALC) ~~~~~~~~~~~~~~~ ~~~~~~~ ~~~~~~~~~~~~~~~ ~~~~~~~ ~~~~~~ RESU LTS ARE TO BE USED FOR MEDICAL PURPOSES ONLY.F OR LEGAL PURPOSES THE SPECIMEN MUST B E COLLECTED BY A CHAINOF CUSTODY. LEGAL TESTING IS NOT PERFORME D BY THIS FACILITY. ~~~~~~~~~~~~~~~ ~~~~~~~ ~~~~~~~~~~~~~~~ ~~~~~~~ ~~~~~~ CBC W/AUTO [id number] 04:08:00 Test Item Value Reference Range Interpretation [...] x10 3/uL 0.0-0.1 N Coronavirus 2019 nCoV [id number] 17:19:00 Test Item Value Reference Range Interpretation Comments Coronavirus 2019 nCoV Bedside (test Negative Neg code = [id number]) [id number] 13:14:00 Test Item Value Reference Range Interpretation Comments SALICYLATE (test code < 1.7 MG/DL See_Comment L RESULT <2.8 IS = SMITH) CONSIDERED NEGA TIVE FOR SALICYLATE. [Automated mess age] The system [employer] generated this result transmitted ref erence range: 2.8-20.0 THER. The reference r johan was not used to interpret this result as normal/abnor mal. BASIC METABOLIC [id number] 13:03:00 Test Item Value Reference Range Interpretation [...] message] (test code = Index/DL The system [employer]) generated this result transmit isai reference [...] this result as normal/abnormal . HEPATIC FUNCTION [id number] 13:03:00 Test Item Value Reference Range Interpretation [...] 87 Unit/L 45-117 N code = ALKP) [id number] 13:03:00 Test Item Value Reference Range Interpretation Comments ACETAMINOPHEN (test code = ACET) <2.0 mcG/ML 10.0-30.0 L [id number] 13:03:00 Test Item Value Reference Range Interpretation Comments ALCOHOL (test code = < 3 MG/DL 0-10 N MEDICAL ALCOHOL ALC) RESULTS. SITE W PREPPED WITH BE TADINE. <10 MG/DL ARE CONSIDERED NEGA TIVE. >400 MG/DL MAY BE FATAL.RESULTS F OR MEDICAL USE ONL Y. NOT TO BE USED FOR FORENSIC PURPOSES. DRUGS OF ABUSE SCREEN [id number] 12:38:00 Test Item Value Reference Interpretation Comments [...] this result as normal/abnormal . BASIC METABOLIC [id number] 12:37:00 Test Item Value Reference Range Interpretation [...] this result as normal/abnormal . HEPATIC FUNCTION [id number] 12:37:00 Test Item Value Reference Range Interpretation [...] 87 Unit/L 45-117 N code = ALKP) [id number] 12:37:00 Test Item Value Reference Range Interpretation Comments ACETAMINOPHEN (test code = ACET) mcG/ML 10.0-30.0 [id number] 12:37:00 Test Item Value Reference Range Interpretation Comments ALCOHOL (test code = < 3 MG/DL 0-10 N MEDICAL ALCOHOL ALC) RESULTS. SITE W PREPPED WITH BE TADINE. <10 MG/DL ARE CONSIDERED NEGA TIVE. >400 MG/DL MAY BE FATAL.RESULTS F OR MEDICAL USE ONL Y. NOT TO BE USED FOR FORENSIC PURPOSES. CBC W/AUTO [id number] 12:02:00 Test Item Value Reference Range Interpretation [...] code = 0.00 K/mm3 0.00-0.05 N NRBC#) [id number] 23:33:00 Test Item Value Reference Range Interpretation [...] change s in troponin levelscharacter istic of [place]. B-TYPE NATRIURETIC [id number] 19:24:00 Test Item Value Reference Range Interpretation Comments B-TYPE NATRIURETIC PEPTIDE < 30.00 PG/ML 0.00-100.00 N (test code = BNP) URINALYSIS [id number] 15:43:00 Test Item Value Reference Range Interpretation [...] a.STF.VT15 AT 08/11/20 1302DRUGS OF ABUSE SCREEN [id number] 15:43:00 Test Item Value Reference Interpretation Comments [...] a.STF.VT15 AT 08/11/20 1302DRUGS OF ABUSE SCREEN [id number] 15:43:00 Test Item Value Reference Interpretation Comments [...] HAND 3 + V LT 2020-08-11 13:43:00 [facility] : 1985 Sex: M FAX: Lan Agee MD [phone] [place]: E St: PRE Patient Name: ARLINE RAO Unit No: [id number] EXAMS: CPT CODE: [id number] XR HAND 3 + V LT [address] EXAM: - XR HAND 3 + V [...] By: [email or web address] Orig Print D/T: S: 08/11/2020 (8214) [facility] NAME: RAOEDMUND [address] PHYS: Lan Dykes [place], [place] [address] : 1985 AGE: 34 SEX: M LOC: [facility] PHONE #: [phone] EXAM DATE: 08/11/2020 STATUS: PRE ER FAX #: [phone] RAD NO: DC Dt: PAGE 1 Signed Report- XR CHEST 1 [id number] 13:41:00 [facility] : 1985 Sex: M FAX: Lan Agee MD [phone] [place]: E St: PRE Patient Name: ARLINE RAO Unit No: [id number] EXAMS: CPT CODE: [id number] XR CHEST 1 V 67710 EXAM: - XR CHEST 1 V Location [...] By: [email or web address] Orig Print D/T: S: 08/11/2020 (2094) [facility] Lyubov NAME: ARLINE RAO [address] [place] [address] PHYS: Lan Munroe MD [place], [place] [address] : 1985 AGE: 34 SEX: M LOC: [facility] PHONE #: [phone] EXAM DATE: 08/11/2020 STATUS: PRE ER FAX #: [phone] RAD NO: DC Dt: PAGE 1 Signed ReportCOMPREHENSIVE METABOLIC [id number] 12:50:00 Test Item Value Reference Range Interpretation [...] (test code = MG Index/DL The system [employer]) generated this result transmit isai reference [...] to interpret this result as normal/abnormal . [id number] 12:50:00 Test Item Value Reference Range Interpretation [...] change s in troponin levelscharacter istic of [place]. [id number] 12:50:00 Test Item Value Reference Range Interpretation Comments ACETAMINOPHEN (test code = ACET) < 2.0 mcG/ML 10.0-30.0 L [id number] 12:50:00 Test Item Value Reference Range Interpretation Comments ALCOHOL (test code = <3 MG/DL 0-10 N MEDICAL ALCOHOL RESULTS. ALC) SITE WAS PREPPE D WITH BETADINE. <10 MG/DL ARE CONSI DERED NEGATIVE. >400 MG/DL MAY BE FATAL.RESULTS F OR MEDICAL USE ONL Y. NOT TO BE USED FOR FOR ENSIC PURPOSES. [id number] 12:39:00 Test Item Value Reference Range Interpretation Comments SALICYLATE (test code 3.1 MG/DL See_Comment N [Auto mated message] = SMITH) The system [employer] generated this result transmitted ref erence range: 2.8-20.0 THER. The reference r johan was not used to interpret this result as normal/abnor mal. COMPREHENSIVE METABOLIC [id number] 12:39:00 Test Item Value Reference Range Interpretation [...] (test code = MG Index/DL The system [employer] HEMINDEX) generated this result transmit isai reference [...] to interpret this result as normal/abnormal . [id number] 12:39:00 Test Item Value Reference Range Interpretation [...] change s in troponin levelscharacter istic of [place]. [id number] 12:39:00 Test Item Value Reference Range Interpretation Comments ACETAMINOPHEN (test code = ACET) < 2.0 mcG/ML 10.0-30.0 L [id number] 12:39:00 Test Item Value Reference Range Interpretation Comments ALCOHOL (test code = ALC) MG/DL 0-10 COMPREHENSIVE METABOLIC [id number] 12:34:00 Test Item Value Reference Range Interpretation [...] (test code = MG Index/DL The system [employer] HEMINDEX) generated this result transmit isai reference [...] to interpret this result as normal/abnormal . [id number] 12:34:00 Test Item Value Reference Range Interpretation Comments TROPONIN-I (test code = TROPI) NG/ML 0.000-0.045 [id number] 12:34:00 Test Item Value Reference Range Interpretation Comments ACETAMINOPHEN (test code = ACET) < 2.0 mcG/ML 10.0-30.0 L [id number] 12:34:00 Test Item Value Reference Range Interpretation Comments ALCOHOL (test code = ALC) MG/DL 0-10 CBC W/AUTO [id number] 12:23:00 Test Item Value Reference Range Interpretation [...] 0.00 K/mm3 0.00-0.05 N NRBC#) CBC WITH [id number] 09:49:19 Test Item Value Reference Range Interpretation Comments WBC (test code = See_Comment [Automated 6690-2) message] The sy stem which generated this result transmitted reference range : 4.20 - 10.70 10*3/?L. The reference range was not used to interpret this result as normal/abnormal . RBC (test code = See_Comment L [Automated 899-8) message] The sy stem which [...] RDW-SD (test code = 42.9 fL 38.5-51.6 64530-3) RDW-CV (test code = 12.4 % 12.1-15.4 788-0) PLT (test code = See_Comment [Automated 777-3) message] The sy stem which generated this result transmitted reference range : 150 - 328 10*3/ ?L. The reference r johan was not used to interpret this result as normal/abnormal . MPV (test code = 9.8 fL 9.8-13.0 70645-3) NRBC/100 WBC (test See_Comment [Automat ed code = 2286156753) message] The system which generated this result transmitted reference range : 0.0 - 10.0 /100 WBCs. The refer ence range was not u sed to interpret th is result as normal/abnormal . NRBC x10^3 (test code <0.01 See_Comment [Auto mated = 9279950219) message] The s ystem which generated this result transmitted reference range : 10*3/?L. The reference range was not used to interpret this result as normal/abnormal . GRAN MAT (NEUT) % 41.9 % (test code = 770-8) IMM GRAN % (test code 0.20 % = 1813277280) LYMPH % (test code = 40.9 % 736-9) MONO % (test code = 13.7 % 5905-5) EOS % (test code = 3.1 % 713-8) BASO % (test code = 0.2 % 706-2) GRAN MAT x10^3(ANC) 1.89 10*3/uL 1.99-6.95 L (test code = 6570472039) IMM GRAN x10^3 (test <0.03 0.00-0.06 code = 5416310275) LYMPH x10^3 (test code 1.85 10*3/uL 1.09-3.23 = 731-0) MONO x10^3 (test code 0.62 10*3/uL 0.36-1.02 = 742-7) EOS x10^3 (test code = 0.14 10*3/uL 0.06-0.53 711-2) BASO x10^3 (test code <0.03 0.01-0.09 = 704-7) Lab Interpretation Abnormal (test code = 83709-0) [id number] 09:39:48 Test Item Value Reference Range Interpretation Comments TROPONIN I (test 0.002 ng/mL See_Comment [Automated code = 5248604714) message] The system which generated this result [...] ? Lab Interpretation Normal (test code = 78183-1) [facility] (52674[facility]2020-07-12 09:22:19 Test Item Value Reference Range Interpretation Comments NA (test code = 135 mmol/L 135-145 0208315125) K (test code = 3.6 mmol/L 3.5-5.0 5248704838) CL (test code = 103 mmol/L 98-108 0376329136) CO2 TOTAL (test code = 26 mmol/L 23-31 4660224298) AGAP (test code = 2-16 0729857980) BUN (test code = 17 mg/dL 7-23 7282847598) GLUCOSE (test code = 98 mg/dL 70-110 7372662719) CREATININE (test code = 0.82 mg/dL 0.60-1.25 9291810367) TOTAL BILI (test code = 1.3 mg/dL 0.1-1.1 H 2813160205) CALCIUM (test code = 8.4 mg/dL 8.6-10.6 L 7210779164) T PROTEIN (test code = 6.6 g/dL 6.3-8.2 5157489963) ALBUMIN (test code = 3.7 g/dL 3.5-5.0 4423885074) ALK PHOS (test code = 81 U/L 34-122 4112781460) ALTv (test code = 51 U/L 5-50 H 1742-6) AST(SGOT) (test code = 68 U/L 13-40 H 1631447817) eGFR (test code = mL/min/1.73m2 5611901131) GEORGIE (test code = GEORGIE) Association of [...] tests). Lab Interpretation Abnormal (test code = 16246-1) [facility], [id number] 09:22:14 Test Item Value Reference Range Interpretation Comments LIPASE (test code = 8439292394) 106 U/L 0-220 Lab Interpretation (test code = Normal 31096-1) [facility]eraPTT2021-[facility] 09:13:54 Test Item Value Reference Range Interpretation Comments APTT Patient (test See_Comment [Automat ed code = 3173-2) message] The system which generated this result transmitted reference range : 23 - 38 Seconds . The reference range was not used to interpr et this result as normal/abnormal . GEORGIE (test code = GEORGIE) The [facility] patient population mean normal value for aPTT is 30 seconds. Lab Interpretation Normal (test code = 25487-4) [facility] CenterPROTHROMBIN TIME / [id number] 09:11:53 Test Item Value Reference Range Interpretation [...] tions. Lab Interpretation (test Normal code = 76196-8) [facility] CenterCoronavirus 2019 nCoV Voiokys6351-03-25 08:52:00 Test Item Value Reference Range Interpretation Comments Coronavirus 2019 Negative NEGATIVE This test h as been nCoV Bedside (test authorize d by FDA under code = [id number]) an EUA for use byauthorized laboratories; This [...] and/o r diagnosis of CO VID-19 under Jpdopph09 4(b)(1) of the Act, 21 U.S .C. 360bbb-3(b)(1), unless theauthorizatio n is terminated or r evoked sooner. DRUGS OF ABUSE [id number] 03:16:00 Test Item Value Reference Range Interpretation [...] poses (e.g employment testing). DRUGS OF ABUSE [id number] 02:47:00 Test Item Value Reference Range Interpretation [...] (test code = PHENCU) DRUGS OF ABUSE [id number] 02:38:00 Test Item Value Reference Range Interpretation [...] NEGATIVE (test code = PHENCU) BASIC METABOLIC [id number] 02:34:00 Test Item Value Reference Range Interpretation [...] 9.7 mg/dL 8.4-10.2 N CA) LIVER FUNCTION [id number] 02:34:00 Test Item Value Reference Range Interpretation [...] U/L 38-126 N (test code = ALKP) [id number] 02:34:00 Test Item Value Reference Range Interpretation Comments ACETAMINOPHEN (test code = ACET) <10 ug/mL 10-30 L [id number] 02:34:00 Test Item Value Reference Range Interpretation Comments SALICYLATE (test code < 1.0 mg/dL Negati ve <2.0 = SMITH) mg/dLTherapeuti c Range <20 mg/dL [id number] 02:34:00 Test Item Value Reference Range Interpretation Comments ALCOHOL (test code = < 10 mg/dL <10 ALC) ~~~~~~~~~~~~~~~ ~~~~~~~ ~~~~~~~~~~~~~~~ ~~~~~~~ ~~~~~~ RESU LTS ARE TO BE USED FOR MEDICAL PURPOSES ONLY.F OR LEGAL PURPOSES THE SPECIMEN MUST B E COLLECTED BY A CHAINOF CUSTODY. LEGAL TESTING IS NOT PERFORME D BY THIS FACILITY. ~~~~~~~~~~~~~~~ ~~~~~~~ ~~~~~~~~~~~~~~~ ~~~~~~~ ~~~~~~ URINALYSIS [id number] 02:27:00 Test Item Value Reference Range Interpretation [...] this result as normal/abnormal . CBC W/AUTO [id number] 02:18:00 Test Item Value Reference Range Interpretation [...] x10 3/uL 0.0-0.1 N DRUGS OF ABUSE [id number] 06:47:00 Test Item Value Reference Range Interpretation [...] non-medical pur poses (e.g employment testing). URINALYSIS [id number] 06:29:00 Test Item Value Reference Range Interpretation [...] this result as normal/abnormal . BASIC METABOLIC [id number] 03:28:00 Test Item Value Reference Range Interpretation [...] 9.0 mg/dL 8.4-10.2 N CA) LIVER FUNCTION [id number] 03:28:00 Test Item Value Reference Range Interpretation [...] U/L 38-126 N (test code = ALKP) [id number] 03:28:00 Test Item Value Reference Range Interpretation Comments ACETAMINOPHEN (test code = ACET) <10 ug/mL 10-30 L [id number] 03:28:00 Test Item Value Reference Range Interpretation Comments SALICYLATE (test code < 1.0 mg/dL Negati ve <2.0 = SMITH) mg/dLTherapeuti c Range <20 mg/dL [id number] 03:28:00 Test Item Value Reference Range Interpretation Comments ALCOHOL (test code = < 10 mg/dL <10 ALC) ~~~~~~~~~~~~~~~ ~~~~~~~ ~~~~~~~~~~~~~~~ ~~~~~~~ ~~~~~~ RESU LTS ARE TO BE USED FOR MEDICAL PURPOSES ONLY.F OR LEGAL PURPOSES THE SPECIMEN MUST B E COLLECTED BY A CHAINOF CUSTODY. LEGAL TESTING IS NOT PERFORME D BY THIS FACILITY. ~~~~~~~~~~~~~~~ ~~~~~~~ ~~~~~~~~~~~~~~~ ~~~~~~~ ~~~~~~ CBC W/AUTO [id number] 00:30:00 Test Item Value Reference Range Interpretation [...] 3/uL 0.0-0.1 N - CT C-SPINE W/O [id number] 23:37:00 Patient Name: ARLINE RAO Unit No: [id number] EXAMS: CPT CODE: [id number] CT C-SPINE W/O CONT 20219 Location: CT cervical spine, 08/29/19 TECHNIQUE: CT [...] CC: Lan Cooper MD Dictated Date/Time: 08/29/2019 (355) Technologist: Ara Steward CTDI: 16.41 DLP: 366.20 Trnscrpt: 08/29/2019 (1389) HeatherDAS6 TATUM Mcarthur NAME: JALEN[address] PHYS: Lan Munroe MD [place] [address] : 1985 AGE: 33 SEX: M LOC: BBlayneERS PHONE #: [phone] EXAM DATE: 08/29/2019 STATUS: REG ER FAX #: [phone] RAD #: D/C DT PAGE 1 Signed Report Patient Name: ARLINE RAO Unit No: [id number] EXAMS: CPT CODE: [id number] CT C-SPINE W/O CONT 67709 <Continued> Orig Print D/T: S: 08/29/2019 (9632) TATUM Mcarthur NAME: RAO[address] PHYS: [place] [address] : 1985 AGE: 33 SEX: M LOC: B.ERS PHONE #: [phone] EXAM DATE: 08/29/2019 STATUS: REG ER FAX #: [phone] RAD #: D/C DT PAGE 2 Signed Report- CT HEAD/BRAIN W/O [id number] 23:33:00 Patient Name: ARLINE RAO Unit No: [id number] EXAMS: CPT CODE: [id number] CT HEAD/BRAIN W/O CONT 60946 Location: H3 CT head, 08/29/19 COMPARISON EXAMS: [...] 45.96 DLP: 757.79 Trnscrpt: 08/29/2019 (2333) HeatherDAS6 [facility] Lyubov NAME: ARLINE RAO [address] [place] [address] PHYS: Lan Munroe MD, [place] [address] : 1985 AGE: 33 SEX: M LOC: CASSANDRA PHONE #:[phone] EXAM DATE: 08/29/2019 STATUS: REG ER FAX #: [phone] RAD #: D/C DT PAGE 1 Signed Report Patient Name: ARLINE RAO Unit No: [id number] EXAMS: CPT CODE: [id number] CT HEAD/BRAIN W/O CONT 82926 <Continued> Orig Print D/T: S: 08/29/2019 (2336) TATUM Mcarthur NAME: [address] PHYS: Lan Munroe [place], [place] [address] : 1985 AGE: 33 SEX: M LOC: B.ERS PHONE #: [phone] EXAM DATE:08/29/2019 STATUS: REG ER FAX #: [phone] RAD #: D/C DT PAGE 2 Signed ReportCOMPREHENSIVE METABOLIC [id number] 23:28:00 Test Item Value Reference Range Interpretation [...] code = LIPINDEX) MG Index/DL CBC W/AUTO [id number] 23:07:00 Test Item Value Reference Range Interpretation [...] 0.00 K/mm3 0.00-0.05 N NRBC#) BASIC METABOLIC [id number] 14:23:00 Test Item Value Reference Range Interpretation [...] NORMAL code = LIPINDEX) Index/DL HEPATIC FUNCTION [id number] 14:23:00 Test Item Value Reference Range Interpretation [...] 68 Unit/L 45-117 N code = ALKP) [id number] 14:23:00 Test Item Value Reference Range Interpretation Comments ALCOHOL (test code = 3 MG/DL 0-10 N MEDICAL ALCOHOL RESULTS. ALC) SITE WAS PREPPE D WITH BETADINE. <10 MG/DL ARE CONSI DERED NEGATIVE. >400 MG/DL MAY BE FATAL.RESULTS F OR MEDICAL USE ONL Y. NOT TO BE USED FOR FOR ENSIC PURPOSES. BASIC METABOLIC [id number] 14:17:00 Test Item Value Reference Range Interpretation [...] 1 NORMAL = LIPINDEX) Index/DL HEPATIC FUNCTION [id number] 14:17:00 Test Item Value Reference Range Interpretation [...] TOTAL (test code Unit/L 45-117 = ALKP) [id number] 14:17:00 Test Item Value Reference Range Interpretation Comments ALCOHOL (test code = ALC) MG/DL 0-10 CBC W/O [id number] 14:04:00 Test Item Value Reference Range Interpretation [...] = 9.4 fL 7.6-10.4 N MPV) RPR [id number] 14:01:19 Test Item Value Reference Range Interpretation [...] = 12-17-2019 N Expiration Dt) Thyroid Stimulating Lpqpfxv4382-56-84 09:09:16 Test Item Value Reference Range Interpretation Comments TSH (test code = TSH) 0.418 mIU/mL 0.270-4.200 Lipid [id number] 08:59:32 Test Item Value Reference Range Interpretation Comments Cholesterol Total 131 mg/dL 0-200 RISK OF HE ART (test code = DISEASEPublishe d by Cholesterol Total) [employer] [employer] Giovanna lyte Optimal Borderl ine [...] LDL/HDL Ratio=L DL Calc/HDL Chol Thyroid Stimulating Rxpvmlo6880-90-58 10:03:42 Test Item Value Reference Range Interpretation Comments TSH (test code = TSH) 1.560 mIU/mL 0.270-4.200 Lipid Kjmmv9828-07-75 09:52:10 Test Item Value Reference Range Interpretation Comments Cholesterol Total 210 mg/dL 0-200 H RISK OF HE ART (test code = DISEASEPublishe d by Cholesterol Total) [employer] Giovanna lyte Optimal Borderl ine [...] is LDL/HDL Ratio=L DL Calc/HDL Chol RPR Rpntyoydjfq9598-02-73 11:37:43 Test Item Value Reference Range Interpretation Comments RPR Qual (test code = RPR Qual) Non-Reactive Non-Reactive Reactive Control (test code = Reactive Reactive Control) Weak Reactive Control (test Weak Reactive code = Weak Reactive Control) Non-Reactive Control (test code Non-Reactive = Non-Reactive Control) Lot # (test code = Lot #) [id number] N Expiration Dt (test code = 12-17-19 N Expiration Dt) Urinalysis Jhahhwvrwtq0179-75-08 23:07:47 Test Item Value Reference Range Interpretation Comments UA WBC (test code = UA WBC) None Seen 0-5 UA RBC (test code = UA RBC) None Seen 0-5 UA Bacteria (test code = UA None Seen Bacteria) UA Squam Epithelial (test code = UA 0-5 Squam Epithelial) Comprehensive Metabolic [id number] 22:29:50 Test Item Value Reference Range Interpretation [...] A/G 1.7 ratio N Ratio) Comprehensive Metabolic [id number] 22:29:50 Test Item Value Reference Range Interpretation [...] the National Kidney Foundation, http://nkdep.ni h.gov Alcohol Pstnd1548-72-49 22:29:50 Test Item Value Reference Range Interpretation Comments Ethanol Level (test 0.06 g/dL 0.00-0.01 H Intoxica isai 0.080 g/dL code = Ethanol or more Level) Ethanol Inst (test 58 N code = Ethanol Inst) Comprehensive Metabolic [id number] 22:29:50 Test Item Value Reference Range Interpretation [...] ag e have not been validated by [facility] MDRD study and should be interpreted [...] ag e have not been validated by [facility] MDRD study and should be interpreted wit h caution. eGFR R esult Interpretation: eGFR > or = 60 is in the Normal RangeeGF R < 60 may mean kid tran diseaseeGFR < 1 5 may mean kidney failure Rang es recommended by the National Kidney Foundation, http://nkdep.ni h.gov Complete Blood Count with Qpqbcpctigas6582-60-04 22:14:44 Test Item Value Reference Range Interpretation [...] code = IPF) 0 % N Automated Ddwzbmwjvdtv4823-18-98 22:14:44 Test Item Value Reference Range Interpretation Comments Neutro Auto (test code = Neutro 72.2 % 36.0-70.0 H Auto) Lymph Auto (test code = Lymph Auto) 19.6 % 12.0-44.0 Socorro Auto (test code = Socorro Auto) 6.9 % 0.0-11.0 Eos, Auto (test code = Eos, Auto) 0.0 % 0.0-7.0 Basophil Auto (test code = Basophil 0.4 % 0.0-2.0 Auto) Neutro Absolute (test code = Neutro 6.1 x10 1.6-7.4 Absolute) Lymph Absolute (test code = Lymph 1.67 x10 .50-4.60 Absolute) Socorro Absolute (test code = Socorro .59 x10 .00-1.20 Absolute) Eos Absolute (test code = Eos 0.00 x10 0.00-0.74 Absolute) Baso Absolute (test code = Baso 0.03 x10 0.00-0.21 Absolute) IG [id number] 22:14:44 Test Item Value Reference Range Interpretation Comments IG (test code = IG) 0.9 % 0.0-5.0 IG Abs (test code = IG Abs) 0 x10 N Urine Drug [id number] 22:14:38 Test Item Value Reference Range Interpretation [...] if desired . Urinalysis with Microscopic if sjrnnekad8307-19-72 21:53:48 Test Item Value Reference Range Interpretation [...] Ind?) rule GL_SJM_UA_MICRO _IN D Urine Drug [id number] 09:31:28 Test Item Value Reference Range Interpretation [...] matory test if desired . Comprehensive Metabolic [id number] 09:17:22 Test Item Value Reference Range Interpretation [...] A/G 2.1 ratio N Ratio) Comprehensive Metabolic [id number] 09:17:22 Test Item Value Reference Range Interpretation [...] National Kidney Foundation, http://nkdep.ni h.gov Comprehensive Metabolic Irdms1032-34-73 09:17:22 Test Item Value Reference Range Interpretation [...] multiply by 0.7 42. Results for pat simeons <18 years of ag e have not been validated by [facility] MDRD study and should be interpreted [...] ag e have not been validated by [facility] MDRD study and should be interpreted wit h caution. eGFR R esult Interpretation: eGFR > or = 60 is in the Normal RangeeGF R < 60 may mean kid tran diseaseeGFR < 1 5 may mean kidney failure Rang es recommended by the National Kidney Foundation, http://nkdep.ni h.gov IG Qxepa3143-25-91 09:08:10 Test Item Value Reference Range Interpretation Comments IG (test code = IG) 0.4 % 0.0-5.0 IG Abs (test code = IG Abs) 0 x10 N Complete Blood Count with Mjrsdujwxobr2586-28-06 09:08:09 Test Item Value Reference Range Interpretation [...] code = IPF) 0 % N Automated Izpvryfwiazq8236-08-18 09:08:09 Test Item Value Reference Range Interpretation Comments Neutro Auto (test code = Neutro 73.6 % 36.0-70.0 H Auto) Lymph Auto (test code = Lymph Auto) 17.3 % 12.0-44.0 Socorro Auto (test code = Socorro Auto) 8.3 % 0.0-11.0 Eos, Auto (test code = Eos, Auto) 0.1 % 0.0-7.0 Basophil Auto (test code = Basophil 0.3 % 0.0-2.0 Auto) Neutro Absolute (test code = Neutro 5.1 x10 1.6-7.4 Absolute) Lymph Absolute (test code = Lymph 1.19 x10 .50-4.60 Absolute) Socorro Absolute (test code = Socorro .57 x10 .00-1.20 Absolute) Eos Absolute (test code = Eos 0.01 x10 0.00-0.74 Absolute) Baso Absolute (test code = Baso 0.02 x10 0.00-0.21 Absolute) ADC / LCC - DRUG SCREEN [id number] 02:56:00 Test Item Value Reference Range Interpretation Comments BENZO U (test code = Negative Negative 4006688744) EARL U (test code = Negative Negative 5924767098) AMPHET (test code = Presumptive Positive Negative A 1982080800) THC (test code = Negative Negative 2499673781) METHADONE (test code = Negative Negative 9767224318) Meth U (test code = Presumptive Positive Negative A 4102411306) OPIATES (test code = Negative Negative 3840462030) Cocaine Metabolite (test Negative Negative code = 9318924045) PROPOXY (test code = Negative Negative 5084219076) Tric U (test code = Negative Negative 7802000389) PCP (test code = Negative Negative 1078535418) OXYCOD (test code = Negative Negative 1643481228) GEORGIE (test code = GEORGIE) Urine Drug [...] testing). Lab Interpretation (test Abnormal code = 58338-0) [facility]et[facility] Test Item Value Reference Range Interpretation Comments ACETAMINOP (test code = <10.0 10-30 L 7408593280) GEORGIE (test code = GEORGIE) Toxic: Greater than 200 ug/mL @ 4 hour post ingestion or greater than 50 ug/mL @ 12 hour post ingestion Lab Interpretation (test Abnormal code = 47736-7) [facility] CenterSalicylate[facility] 02:40:00 Test Item Value Reference Range Interpretation Comments SALICYLATE (test code <10 mg/L = 5466221322) GEORGIE (test code = GEORGIE) Therapeutic Range:? Analgesic and Antipyretic Use? 20-100 mg/L? Anti-Inflammatory Use? 100-250 mg/LToxic Range:? Greater than 300 mg/L [facility] CenterEthanol (ETOH) [id number] 02:40:00 Test Item Value Reference Range Interpretation Comments ALCOHOL (test code = <10 mg/dL 9195619796) GEORGIE (test code = GEORGIE) <10 Pzztzarh70-588 Toxic>100 Depression of BECK TENDER>400 Fatalities Reported [facility] Metabolic Panel (NA, K, CL, CO2, Glucose, BUN, Creatinine, CA)2018-11-05 02:35:00 Test Item Value Reference Range Interpretation Comments NA (test code = 142 mmol/L 135-145 1685583190) K (test code = 3.5 mmol/L 3.5-5 1305950417) CL (test code = 107 mmol/L 98-108 7897740885) CO2 TOTAL (test code = 25 mmol/L 23-31 5580211388) AGAP (test code = 2-16 3497354344) BUN (test code = 12 mg/dL 7-23 3527915909) GLUCOSE (test code = 90 mg/dL 70-110 3424477755) CREATININE (test code 0.77 mg/dL 0.6-1.25 = 0609855593) CALCIUM (test code = 9.3 mg/dL 8.6-10.6 7229220781) eGFR Calculation mL/min/1.73m2 (Non-) (test code = 9401777709) eGFR Calculation mL/min/1.73m2 () (test code = 2399468949) GEORGIE (test code = GEORGIE) Association of [...] or urine or abnormalities in imaging tests). [facility] (ALB, T.PRO, BILI T, BU/BC, ALT, AST, ALK PHOS)2018-11-05 02:35:00 Test Item Value Reference Range Interpretation Comments TOTAL BILI (test code = 9168708381) 1.0 mg/dL 0.1-1.1 BILI UNCON (test code = 0143819111) 0.8 mg/dL 0.1-1.1 BILI CONJ (test code = 2367592355) 0.0 mg/dL 0-0.3 T PROTEIN (test code = 3601166404) 7.0 g/dL 6.3-8.2 ALBUMIN (test code = 5486657164) 4.4 g/dL 3.5-5 ALK PHOS (test code = 1362855127) 71 U/L 34-122 ALT(SGPT) (test code = 8069381058) 39 U/L 9-51 AST(SGOT) (test code = 6462546888) 40 U/L 13-40 Lab Interpretation (test code = Normal 67595-8) [facility] CenterCB WITH [id number] 02:10:00 Test Item Value Reference Range Interpretation Comments WBC (test code = See_Comment [Automated 5690-2) message] The sy stem which generated this result transmitted reference range : 4.20 - 10.70 10*3/?L. The reference range was not used to interpret this result as normal/abnormal . RBC (test code = See_Comment [Automated 449-8) message] The sy stem which generated this [...] RDW-SD (test code = 46.3 fL 38.5-51.6 09457-7) RDW-CV (test code = 13.1 % 12.1-15.4 788-0) PLT (test code = See_Comment [Automated 777-3) message] The sy stem which generated this result transmitted reference range : 150 - 328 10*3/ ?L. The reference r johan was not used to interpret this result as normal/abnormal . MPV (test code = 9.9 fL 9.8-13 16230-4) NRBC/100 WBC (test See_Comment [Automat ed code = 8952100334) message] The system which generated this result transmitted reference range : 0.0 - 10.0 /100 WBCs. The refer ence range was not u sed to interpret th is result as normal/abnormal . NRBC x10^3 (test code <0.01 See_Comment [Auto mated = 0520207285) message] The s ystem which generated this result transmitted reference range : 10*3/?L. The reference range was not used to interpret this result as normal/abnormal . GRAN MAT (NEUT) % 50.8 % (test code = 770-8) IMM GRAN % (test code 0.60 % = 1542832853) LYMPH % (test code = 33.8 % 736-9) MONO % (test code = 14.4 % 5905-5) EOS % (test code = 0.0 % 713-8) BASO % (test code = 0.4 % 706-2) GRAN MAT x10^3(ANC) 2.62 10*3/uL 1.99-6.95 (test code = 2447808586) IMM GRAN x10^3 (test 0.03 10*3/uL 0-0.06 code = 5047013150) LYMPH x10^3 (test code 1.74 10*3/uL 1.09-3.23 = 731-0) MONO x10^3 (test code 0.74 10*3/uL 0.36-1.02 = 742-7) EOS x10^3 (test code = <0.03 0.06-0.53 L 711-2) BASO x10^3 (test code <0.03 0.01-0.09 = 704-7) Lab Interpretation Abnormal (test code = 81375-1) [facility] CenterCom[facility]abolic Xoity3846-91-01 13:14:00 Test Item Value Reference Range Interpretation [...] by the National Kidney Foundation,http ://nkd ep.nih.gov [id number] 13:09:00 Test Item Value Reference Range Interpretation [...] g/dL 0.00-0.01 N code = ETOHU) Urinalysis Gahmaksl7457-86-10 12:59:00 Test Item Value Reference Range Interpretation Comments Color (test code = Yellow Yellow,Straw,Pl N COLOR) yellow Clarity (test code = Clear Clear N CLAR) Specific Reagan (test 1.027 1.001-1.035 N code = SPGR) [...] code = Few /HPF BACT) CBC with Uklthsgvgbmj0482-04-88 12:42:00 Test Item Value Reference Range Interpretation [...] code = ALYMPH) 2.3 K/cumm 0.5-4.6 N [place] Abs (test code = AMONO) 0.6 K/cumm 0.0-1.2 N Eos Abs (test code = AEOS) 0.09 K/cumm 0.00-0.74 N Baso Abs (test code = ABASO) 0.0 K/cumm 0.00-0.21 N Hepatic Function Mhzet3068-18-27 18:55:00 Test Item Value Reference Range Interpretation [...] = ALT) 47 U/L 1-41 H HIV Pwrgn9927-77-77 12:45:00 Test Item Value Reference Range Interpretation Comments HIV 1/2 Antibody Non-Reactive Non-Reactive N HIV1/2 Anti body screen (test code = result indicate s the HIV1/2AB) absence of HIV1 and CED2whuhjwnti.H owever, A Non-Reactive screen result does not [...] HIV RNA Quantit ative is recommended. RPR, [id number] 21:30:00 Test Item Value Reference Range Interpretation Comments RPR (test code = RPR) Non-Reactive Non-Reactive N Thyroid Stimulating Hormone (TSH)2017-03-17 09:55:00 Test Item Value Reference Range Interpretation Comments TSH (test code = TSH) 0.94 mIU/mL 0.270-4.200 N Lipid [id number] 09:53:00 Test Item Value Reference Range Interpretation Comments Cholesterol (test 124 mg/dL 0-200 N code = CHOL) Triglycerides (test 61 mg/dL 9-200 N code = TRIG) HDL (test code = 47 mg/dL 40-60 N HDL) Chol/HDL (test code 2.6 Ratio 0.0-5.0 N = CHOLPHDL) LDL, Calculated 65 0-130 N (NOTE)RISK O F HEART (test code = LDLC) DISEASEPu blished by [place] Heart AssociationAnal yte Optim al Boderline Increased RiskC HOL <200 200-239 >240TRI G <150 150-199 >200HDL Male: >60 <40HDL Female: >60 <50 LDL < 100 130-15 9 >160 LDL NEAR OPTIMAL IS 100- 129 VLDL (test code = 12 mg/dL 5-40 N VLDL) LDL/HDL (test code = 1 LDLPHDL) Urinalysis [id number] 15:09:00 Test Item Value Reference Range Interpretation Comments Color (test code = Yellow Yellow,Straw,Pl N COLOR) yellow Clarity (test code = Clear Clear N CLAR) Specific Reagan (test 1.028 1.001-1.035 N code = SPGR) [...] = 0-1 Granular /HPF CASTS) Comprehensive Metabolic [id number] 14:24:00 Test Item Value Reference Range Interpretation [...] by the National Kid[employer] Foundation,http ://nkd ep.nih.gov [id number] 14:20:00 Test Item Value Reference Range Interpretation [...] 0.00-0.01 N code = ETOHU) CBC with [id number] 14:08:00 Test Item Value Reference Range Interpretation [...] code = ALYMPH) 2.2 K/cumm 0.5-4.6 N [place] Abs (test code = AMONO) 0.9 K/cumm 0.0-1.2 N Eos Abs (test code = AEOS) 0.06 K/cumm 0.00-0.74 N Baso Abs (test code = ABASO) 0.0 K/cumm 0.00-0.21 N
[2021-07-23 16:33] LABS: Absolute Lymphocytes (CBC) 1.9 K/uL (0.7-4.9); Hematocrit 50.1 % (39.6-49.0); Lymphocytes % 33.4 % (15.3-44.8); MPV 7.6 fL (7.6-11.3); RBC Red Blood Cell Count 5.18 M/uL (4.33-5.43)
[2021-07-23 16:53] LABS: Magnesium 2.8 mg/dL (1.8-2.4); Potassium 3.9 mmol/L (3.5-5.1); Troponin High Sensitivity 3.2 pg/mL (<58.9)
[2021-07-23 17:39] LABS: Urine Bacteria >50 /HPF (NONE SEEN); Urine Mucus 1+ /HPF (NONE SEEN)
--- NOTE | 2021-07-23 17:52 | EDPHYS ---
Physician Documentation [facility] Name: Marshall Cook Age: 35 yrs Sex: Male : 1985 Arrival Date: 07/23/2021 Time: 15:38 Bed 18 Private MD: ED Physician Francisco Mathews HPI: 07/23 17:27 This 35 yrs old Male presents to ER via EMS with complaints of chest pain. rn 17:27 The patient or guardian reports chest pain that is located primarily in the chest rn diffusely. The pain does not radiate. Associated signs and symptoms: Pertinent positives: None. Pertinent negatives: cough, diaphoresis, near syncope, palpitations, shortness of breath, syncope. The chest pain is described as aching. Modifying factors: The symptoms are alleviated by nothing. the symptoms are aggravated by physical exertion. Severity of pain: At its worst the pain was moderate in the emergency department the pain has resolved. The patient has experienced similar episodes in the past. The patient has not recently seen a physician. Pt reports lately has been increasing amount of physical therapy, doing extra on his own, has been having increased spasms of legs, with burning sensations, radiates upward to chest. When got to his chest, he worried and wanted to come and be evaluated. . Historical: - Allergies: 15:42 ketorolac tromethamine; [facility] 15:42 Naproxen; [facility] 15:42 Tramadol HCl; [facility] - PMHx: 15:42 Anxiety; Schizophrenia; paraplegic; Bipolar disorder; [facility] - Immunization history:: Adult Immunizations. - Social history:: Smoking status: . - Family history:: not pertinent. - Hospitalizations: : No recent hospitalization is reported. ROS: 17:27 Constitutional: Negative for fever, chills, and weight loss, Eyes: Negative for injury, rn pain, redness, and discharge, Cardiovascular: Negative for palpitations, and edema Respiratory: Negative for shortness of breath, cough, wheezing, and pleuritic chest pain, Abdomen/GI: Negative for abdominal pain, nausea, vomiting, diarrhea, and constipation, Back: Negative for injury and pain, MS/Extremity: Negative for injury and deformity, Skin: Negative for injury, rash, and discoloration, Neuro: Negative for headache and seizure. Exam: 17:27 Constitutional: This is a well developed, well nourished patient who is awake, alert, rn and in no acute distress. Better appearing than times I have seen him in past Head/Face: Normocephalic, atraumatic. Eyes: Periorbital areas with no swelling, redness, or edema. Cardiovascular: Regular rate and rhythm. No pulse deficits. Respiratory: No increased work of breathing, no retractions or nasal flaring. Abdomen/GI: Soft, non-tender Skin: Warm, dry with normal turgor. Normal color with no rashes, no lesions, and no evidence of cellulitis. MS/ Extremity: Pulses equal, no cyanosis. Neurovascular intact. Equal circumference. Neuro: Awake and alert, GCS 15 Vital Signs: 15:38 BP 118 / 74; Pulse 81; Resp 17; Temp 97.7(O); Pulse Ox 100% ; Weight 81.65 kg; Height 5 jh6 ft. 8 in. (172.72 cm); Pain 7/10; 15:45 BP 121 / 72; Pulse 82; Resp 16; Pulse Ox 98% ; ww 16:45 BP 119 / 76; Pulse 72; Resp 17; Pulse Ox 96% on R/A; ww 17:41 BP 130 / 84; Pulse 93; Resp 16; Pulse Ox 96% on R/A; ww 19:26 BP 126 / 82; Pulse 86; Resp 16; Pulse Ox 97% on R/A; lg3 15:38 Body Mass Index 27.37 (81.65 kg, 172.72 cm) jh6 MDM: 15:42 Patient medically screened. rn 17:50 Differential diagnosis: anxiety, chest wall pain, costochondritis, pleurisy, muscle rn spasm, radiculopathy, UTI. Data reviewed: vital signs, nurses notes, lab test result(s), EKG, and as a result, I will discharge patient. Counseling: I had a detailed discussion with the patient and/or guardian regarding: the historical points, exam findings, and any diagnostic results supporting the discharge/admit diagnosis, lab results, the need for outpatient follow up, to return to the emergency department if symptoms worsen or persist or if there are any questions or concerns that arise at home. Response to treatment: the patient's symptoms have mildly improved after treatment, and as a result, I will discharge patient. Special discussion: Based on the patient's history, exam, and Dx evaluation, there is no indication for emergent intervention or inpatient Tx. It is understood by the patient/guardian that if the Sx's persist or worsen they need to return immediately for re-evaluation. I discussed with the patient/guardian in detail that at this point there is no indication for admission to the hospital. It is understood, however, that if the symptoms persist or worsen the patient needs to return immediately for re-evaluation. ED course: No acute findings in blood, stable vitals, + UTI, last culture shows susceptible to levaquin, will give IV dose and dc home with po levaquin. . 07/23 15:55 Order name: CBC with Diff; Complete Time: 17:08 07/23 15:55 Order name: Basic Metabolic Panel; Complete Time: 17:08 07/23 15:55 Order name: Magnesium; Complete Time: 17:08 07/23 15:55 Order name: Urine Microscopic Only; Complete Time: 17:47 07/23 15:55 Order name: Urine Culture 07/23 15:55 Order name: Troponin High Sensitivity; Complete Time: 17:08 07/23 15:55 Order name: IV Start; Complete Time: 16:51 07/23 15:55 Order name: Urine Dipstick-Ancillary (obtain specimen); Complete Time: 16:51 07/23 15:55 Order name: Cath; Complete Time: 16:51 07/23 15:55 Order name: EKG; Complete Time: 15:56 07/23 15:55 Order name: EKG - Nurse/Tech; Complete Time: 16:50 rn Administered Medications: 18:10 Drug: LevaQUIN (levofloxacin) 750 mg Volume: 150 ml; Route: IVPB; Infused Over: 90 ww mins; Site: right antecubital; 19:27 Follow up: Response: No adverse reaction; IV Status: Completed infusion; IV Intake: lg3 150ml Disposition Summary: 07/23/21 17:51 Discharge Ordered Location: Home rn Problem: new rn Symptoms: have improved rn Condition: Stable rn Diagnosis - Chest pain, unspecified rn - UTI/ Urinary tract infection, site not specified rn Followup: rn - With: Private Physician - When: As needed - Reason: Recheck today's complaints, Re-evaluation by your physician Discharge Instructions: - Discharge Summary Sheet rn - Nonspecific Chest Pain, Adult rn - Urinary Tract Infection, Adult rn Forms: - Medication Reconciliation Form rn - Thank You Letter rn - Antibiotic [employer] - Prescription Opioid Use rn Prescriptions: - levofloxacin 500 mg Oral Tablet - take 1 tablet by ORAL route once daily for 10 days; 10 tablet; Refills: 0, rn Product Selection Permitted Signatures: Dispatcher [employer] Francisco Salas MD MD rn Hastedt, Jennifer RN RN jh6 Alyson Schwartz RN RN Irene Coe RN lg3
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
[2021-07-23] MEDS ORDERED: Levofloxacin 750mg IV 750 MG/150 ML BAG IV ONE (18:12)
[2021-07-23 20:31] VITALS: TEMP 97.7
[2021-07-23 20:37] VITALS: BP 126/82; O2SAT 97
--- NOTE | 2021-07-24 07:54 | EKG ---
Test Date: 2021-07-23 Test Time: 16:36:19 Client Care Coordinator: TITI MEASUREMENT RESULTS: Intervals: Rate: 82 SD: 146 QRSD: 82 QT: 344 QTc: 401 [place]: P: 32 SD: 146 QRS: 73 T: 57 INTERPRETIVE STATEMENTS: Normal sinus rhythm Normal ECG Compared to ECG 06/22/2021 17:42:47 Sinus arrhythmia no longer present Electronically Signed On 07-24-21 07:52:34 CDT by Cj Anderson
== END 2021-07-23 20:25 | disposition home or self-care (01) ==
LOC: ER 15:31
DX: R07.9 Chest pain, unspecified (principal); N39.0 Urinary tract infection, site not specified; F20.9 Schizophrenia, unspecified; Z88.5 Allergy status to narcotic agent; Z88.8 Allergy status to other drugs, medicaments and biological substances
CPT/HCPCS: 36415; 80048; 81015; 83735; 84484; 85025; 87077; 87086; 87088; 87186; 93005; 96365; 99284

== ENCOUNTER 2021-07-28 14:05 | Emergency (ER) | payer OTHER ==
--- OUTSIDE RECORDS SUMMARY | 2021-07-28 14:13 | XMS REPORT | Continuity of Care Document ---
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 GC_BAHC_Tod PRIV PRIV [id number] [facility] 02:03:00 02:03:00 d_J [id number] Medica l 2021-07-18 2021-07-18 Outpatient Lilly, PRIV PRIV [id number] 00:00:00 00:00:00 Jonah Jose [id number] 3927-05-30 2021-07-15 Outpatient GC_BAHC_Tod PRIV PRIV [id number] [facility] 10:43:00 10:43:00 d_J [id number] Medica l 2021-07-11 2021-07-11 Outpatient GC_BAHC_Tod PRIV PRIV [id number] [facility] 01:44:00 01:44:00 d_J [id number] Medica l 2021-07-05 2021-07-05 Outpatient GC_BAHC_Tod PRIV PRIV [id number] [facility] 09:29:00 09:29:00 d_J [id number] Medica l 2021-07-05 2021-07-05 Outpatient Michael, PRIV PRIV [id number] 00:00:00 00:00:00 Marina [id number] 2021-07-02 2021-07-02 Outpatient GC_BAHC_Tod PRIV PRIV [id number] [facility] 10:48:00 10:48:00 d_J [id number] Medica l 2021-07-02 2021-07-02 Outpatient Michael, PRIV PRIV [id number] e-[id number] 00:00:00 00:00:00 Marina [id number] 2021-06-30 2021-06-30 Outpatient GC_BAHC_Tod PRIV PRIV 239 [id number] [facility] 06:52:00 06:52:00 d_J [id number] Medica l 2021-06-25 2021-06-25 Outpatient GC_BAHC_Tod PRIV PRIV [id number] [facility] 01:28:00 01:28:00 d_J [id number] Medica l 2021-06-25 2021-06-25 Outpatient Michael, PRIV PRIV [id number] c-d 00:00:00 00:00:00 Marina [id number] 2021-06-23 2021-06-23 Outpatient GC_BAHC_Tod PRIV PRIV [id number] [facility] 10:46:00 10:46:00 d_J [id number] Medica l 2021-06-18 2021-06-18 Outpatient GC_BAHC_Tod PRIV PRIV 239 [id number] [facility] 01:40:00 01:40:00 d_J [id number] Medica l 2021-06-14 2021-06-14 Outpatient GC_BAHC_Tod PRIV PRIV 239 [id number] [facility] 08:35:00 08:35:00 d_J [id number] Medica l 2021-06-14 2021-06-14 Outpatient Michael, PRIV PRIV [id number] 00:00:00 00:00:00 Marina [id number] 6952-04-26 2021-06-11 Outpatient GC_BAHC_Tod PRIV PRIV [id number] [facility] 09:50:00 09:50:00 d_J [id number] Medica l 2021-06-11 2021-06-11 Outpatient Michael, PRIV PRIV [id number] 00:00:00 00:00:00 Marina [id number] 2021-06-06 2021-06-06 Outpatient GC_BAHC_Tod PRIV PRIV [id number] [facility] 01:01:00 01:01:00 d_J [id number] Medica l 2021-06-05 2021-06-05 Outpatient GC_BAHC_Tod PRIV PRIV 239 [id number] [facility] 03:19:00 03:19:00 d_J [id number] Medica l 2021-06-04 2021-06-04 Outpatient GC_BAHC_Tod PRIV PRIV [id number] [facility] 01:42:00 01:42:00 d_J [id number] Medica l 2021-06-04 2021-06-04 Outpatient Michael, PRIV PRIV [id number] 00:00:00 00:00:00 Marina [id number] 2021-05-30 2021-05-30 Outpatient GC_BAHC_Tod PRIV PRIV [id number] [facility] 11:28:00 11:28:00 d_J [id number] Medica l 2021-05-30 2021-05-30 Outpatient Lilly, PRIV PRIV [id number]-[id number] 00:00:00 00:00:00 Jonah Garcia [id number] 2021-05-28 2021-05-28 Outpatient GC_BAHC_Tod PRIV PRIV [id number] [facility] 01:25:00 01:25:00 d_J [id number] Medica l 2021-05-28 2021-05-28 Outpatient Michael, PRIV PRIV [id number] 00:00:00 00:00:00 Marina [id number] 2021-05-27 2021-05-27 Outpatient GC_BAHC_Tod PRIV PRIV [id number] [facility] 03:48:00 03:48:00 d_J [id number] Medica l 2021-05-24 2021-05-24 Outpatient GC_BAHC_Spa PRIV PRIV [id number] [facility] 04:32:00 04:32:00 Samuel [id number] Medica l 2021-05-07 2021-05-08 Outpatient Jagjit [facility] [id number] [place] 08:26:00 04:30:[address] [facility] 2021-05-07 2021-05-08 Emergency Tono Roberto [facility] 1.2.840. [id number] [facility] 08:26:00 04:30:00 Ronaldling Martinjone VIVAS 350.1.13.10 [facility] ildefonso BERMAN 4.2.7.2.686 [facility] [id number] [facility] 080 [place] 2021-03-28 2021-03-28 [facility] [id number] [place] 00:00:00 00:00:00 GALE maldonado 2021-03-20 2021-03-20 Outpatient PASCUAL MAHAN [facility] [id number] [place] 00:00:00 00:00:00 [facility] 2020-12-30 2021-02-28 [facility] [id number] [place] 22:32:00 18:41:00 BUSHRA Booker 2020-12-30 2021-02-28 [facility] [id number] [place] 22:32:00 18:41:00 BUSHRA Booker 2021-02-15 2021-02-15 Inpatient [facility] [id number] [place] 10:50:13 11:18:57 [facility] 2021-02-14 2021-02-14 Inpatient [facility] [id number] [place] 16:43:15 18:41:33 [facility] 2021-02-14 2021-02-14 Inpatient [facility] [id number] [place] 07:24:16 09:18:07 [facility] 2021-01-31 2021-01-31 Inpatient [facility] [id number] [place] 01:03:14 03:25:48 [facility] 2021-01-25 2021-01-25 Inpatient [facility] [id number] [place] 01:35:50 03:05:16 [facility] 2021-01-23 2021-01-23 Inpatient [facility] [id number] [place] 02:10:17 04:59:36 [facility] 2021-01-21 2021-01-21 [facility] [id number] [place] 15:43:59 16:18:10 VANE maldonado I 2021-01-13 2021-01-13 Inpatient [facility] [id number] [place] 16:20:12 17:12:27 [facility] 2021-01-07 2021-01-07 Inpatient [facility] [id number] [place] 18:28:43 18:28:46 Health 2021-01-07 2021-01-07 Inpatient [facility] [id number] [place] 00:12:42 01:07:25 [facility] 2021-01-04 2021-01-04 Inpatient [facility] [id number] [place] 17:11:58 18:14:36 Health 2021-01-04 2021-01-04 Inpatient KARYN, [facility] [id number] [place] 13:40:49 15:55:44 [facility] 2021-01-03 2021-01-03 Inpatient [facility] [id number] [place] 17:58:59 17:59:03 [facility] 2021-01-01 2021-01-01 Inpatient [facility] [id number] [place] 16:44:03 16:44:07 [facility] 2021-01-01 2021-01-01 Inpatient EMMA, [facility] [id number] [place] 08:36:00 09:12:12 [facility] 2021-01-01 2021-01-01 Inpatient [facility] [id number] [place] 07:46:21 08:35:30 [facility] 2021-01-01 2021-01-01 Inpatient YULI, [facility] [id number] [place] 02:09:24 03:31:22 GRISEL [facility] 2020-12-31 2020-12-31 Inpatient MAREK, [facility] [id number] [place] 05:17:16 06:34:53 BUSHRA [facility] 2020-12-31 2020-12-31 Inpatient [facility] [id number] [place] 01:50:33 06:34:15 [facility] 2020-12-31 2020-12-31 Inpatient [facility] [id number] [place] 03:50:31 04:54:13 [facility] 2020-12-31 2020-12-31 Inpatient [facility] [id number] [place] 01:43:22 04:38:47 Health 2020-12-30 2020-12-30 Emergency [facility] [id number] [place] 22:46:36 23:04:47 Health 2020-12-30 2020-12-30 Emergency [facility] [id number] [place] 22:46:20 23:04:03 Health 2020-12-30 2020-12-30 Emergency [facility] [id number] [place] 22:47:41 23:03:11 [facility] 2020-12-30 2020-12-30 Emergency LAKHWINDER, [facility] [id number] [place] 00:00:00 00:00:00 [facility] 2020-12-20 2020-12-20 Emergency EM Uziel, [facility] MALIKA [id number] [facility] 06:26:00 16:34:00 Erich 52 [facility] 2020-11-15 2020-11-16 Emergency Eusebia Ruelas 1.2.840 .1 [id number] [facility] 00:55:00 14:35:00 William Nunes 50795.1.[address] Mio Sorensen 3.430.2.7 Hospita .3.343760 l .8 2020-11-14 2020-11-14 Emergency Manju 1.2.840.1 [id number] [facility]i 15:47:00 16:03:00 William Langston [address]907.1.[address] 3.430.2.7 Hospit a .3.810475 l .8 2020-10-22 2020-10-24 [facility] Dennis Wynn 1.2.840.1 [id number] Methodi 16:52:00 16:26:00 Encounter Pepito Gordillo [id number] Jessica Awad 3.430.2.7 Hospita InLashaun dunbar .3.914340 l .8 2020-10-16 2020-10-16 Emergency EM Crismon, [facility] MALIKA [id number] [facility] 00:20:00 08:00:00 [facility] 2020-[facility]06 2020-10-06 Emergency EM Zia, HCAKW MALIKA [id number] [facility] 01:57:00 20:14:00 Darlene 71 [facility] 2020-09-05 2020-09-05 Emergency EM Speer, Michael DALY [id number] [facility] 11:17:00 18:22:00 21 [facility] 2020-09-03 2020-09-03 Emergency EM Edvin, [facility] MALIKA [id number] [facility] 03:35:00 15:00:00 Farhad Maradiaga [facility] 2020-09-02 2020-09-03 Emergency EM Michael Montero [facility] [id number] [facility] 23:16:00 01:53:00 82 [facility] 2020-08-11 2020-08-12 Emergency EM Karri, [facility] MALIKA [id number] [facility] 11:12:00 00:40:00 Naim 18 [facility] 2020-07-12 2020-07-12 Emergency [facility] [id number] [facility] 03:16:00 05:05:00 Divineoliveriolashonda Carmita Magdalena 350.1.13.10 ity [facility] 4.2.7.2.686 [facility] [id number] [address] 2020-07-12 2020-07-12 Emergency [facility] [id number] [id number] 03:16:00 05:05:00 Michael [place] 350.1.13.10 [place] 4.2.7.2.686 [place] [id number] 2020-07-12 2020-07-12 Emergency X [facility] ERT [id number] [facility] 03:16:00 03:16:[address] [facility] 2019-08-29 2019-09-01 Inpatient [facility] [id number] [facility] 22:17:00 04:16:38 62 [facility] 2019-06-22 2019-06-24 Inpatient [facility] MAL[facility] [id number] [facility] 13:23:00 06:39:56 74 [facility] 2019-02-21 2019-02-21 Outpatient [facility] [id number] [place] 00:00:00 00:00:00 Health 2019-02-19 2019-02-19 Emergency [facility] TAMEKA [id number] 07:23:00 07:23:00 [facility] 2019-02-01 2019-02-01 Outpatient [facility] [id number] [place] 22:11:49 22:11:49 [facility] 2018-11-04 2018-11-05 Emergency DEMARCO Bowen [id number] [id number] [facility] 20:38:48 05:13:00 Brown Vivas 350.1.13.10 i ty of [place] 4.2.7.2.686 [facility] [id number] [address] 2018-11-04 2018-11-05 Emergency Andrés [facility] [id number] [id number] 20:38:48 05:13:00 Brown Vivas 350.1.13.10 [place] 4.2.7.2.686 [place] [id number] [facility] 2018-10-18 2018-10-18 Emergency [facility] [id number] [place] 06:08:40 06:08:40 [facility] 2017-04-02 2017-04-02 Outpatient [facility] [id number] [place] 00:00:00 00:00:00 [facility] 2017-03-29 2017-03-29 Emergency [facility] [id number] [place] 00:00:48 00:00:48 [facility] 2017-03-22 2017-03-22 [id number] 11:46:00 11:46:00 POND [facility] 2017-03-16 2017-03-20 [facility] [id number] [facility] 20:46:00 13:41:00 [facility] 2017-01-26 2017-01-26 [facility]patient [facility] [id number] [facility] 00:00:00 00:00:00 Results Test Description Test Time Test Comments Results Result Comments Source TROPONIN I 2021-05-08 04:00:37 Test Item Value Reference Range Interpretation Comme nts TROPONIN I (test code = 0.000 ng/mL See_Comment [Au tomated message] The [id number]) system which ge nerated this result tra [...] biotin. Lab Interpretation Normal (test code = 96940-0) [facility] [id number] 00:46:10 Test Item Value Reference Range Interpretation Comments ESR (test code = See_Comment H [Automated message] [id number]) The system [employer] generated this result transmitted ref erence range: 0 - 10 m m/HR. The reference r johan was not used to interpret this result as normal/abnor mal. Lab Interpretation (test Abnormal code = 49904-3) [facility]EMOGLOBIN (A1C)2021-05-07 20:23:40 Test Item Value Reference Range Interpretation Comments HGB A1C (test code = 5.3 % 4.0-5.7 4548-4) GEORGIE (test code = GEORGIE) Reference RangesNormal: <5.7%Prediabetes: 5.7 - 6.4%Diabetes: > 6.5% Lab Interpretation (test Normal code = 13813-9) [facility]OLIC PAN[facility] (17007)2021-05-07 16:11:59 Test Item Value Reference Range Interpretation Comments NA (test code = 139 mmol/L 135-145 5993007829) K (test code = 3.9 mmol/L 3.5-5.0 2797743002) CL (test code = 101 mmol/L 98-108 5188577671) CO2 TOTAL (test code = 23 mmol/L 23-31 1753036543) AGAP (test code = 2-16 0258990978) BUN (test code = 13 mg/dL 7-23 8237912923) GLUCOSE (test code = 92 mg/dL 70-110 4255095275) CREATININE (test code = 0.40 mg/dL 0.60-1.25 L 0038330166) TOTAL BILI (test code = 1.6 mg/dL 0.1-1.1 H 5025919100) CALCIUM (test code = 9.6 mg/dL 8.6-10.6 9355722619) T PROTEIN (test code = 7.7 g/dL 6.3-8.2 8593040423) ALBUMIN (test code = 4.6 g/dL 3.5-5.0 0319042989) ALK PHOS (test code = 91 U/L 34-122 1204407733) ALTv (test code = 24 U/L 5-50 1742-6) AST(SGOT) (test code = 31 U/L 13-40 3610805058) eGFR (test code = mL/min/1.73m2 0946074612) GEORGIE (test code = GEORGIE) Association of [...] tests). Lab Interpretation Abnormal (test code = 79831-8) [facility]ACTIVATED PARTIAL THRMPLAS [id number] 15:52:36 Test Item Value Reference Range Interpretation Comments APTT Patient (test See_Comment [Automat ed code = 3173-2) message] The system which generated this result transmitted reference range : 23 - 38 Seconds . The reference range was not used to interpr et this result as normal/abnormal . GEORGIE (test code = GEORGIE) The [facility] patient population mean normal value for aPTT is 30 seconds. Lab Interpretation Normal (test code = 02889-9) [facility] HospitalPROTHROMBIN TIME / [id number] 15:50:30 Test Item Value Reference Range Interpretation [...] tions. Lab Interpretation (test Normal code = 64417-4) [facility] HospitalCBC WITH [id number] 15:42:54 Test Item Value Reference Range Interpretation Comments WBC (test code = See_Comment [Automated 1090-2) message] The sy stem which generated this [...] RDW-SD (test code = 44.1 fL 38.5-51.6 83389-3) RDW-CV (test code = 13.3 % 12.1-15.4 788-0) PLT (test code = See_Comment [Automated 777-3) message] The sy stem which generated this result transmitted reference range : 150 - 328 10*3/ ?L. The reference r johan was not used to interpret this result as normal/abnormal . MPV (test code = 9.7 fL 9.8-13.0 L 65392-9) NRBC/100 WBC (test See_Comment [Automat ed code = 1319632008) message] The system which generated this result transmitted reference range : 0.0 - 10.0 /100 WBCs. The refer ence range was not u sed to interpret th is result as normal/abnormal . NRBC x10^3 (test code <0.01 See_Comment [Auto mated = 4044538242) message] The s ystem which generated this result transmitted reference range : 10*3/?L. The reference range was not used to interpret this result as normal/abnormal . GRAN MAT (NEUT) % 77.6 % (test code = 770-8) IMM GRAN % (test code 0.60 % = 1395352897) LYMPH % (test code = 13.7 % 736-9) MONO % (test code = 7.7 % 5905-5) EOS % (test code = 0.2 % 713-8) BASO % (test code = 0.2 % 706-2) GRAN MAT x10^3(ANC) 7.68 10*3/uL 1.99-6.95 H (test code = 8790410150) IMM GRAN x10^3 (test 0.06 10*3/uL 0.00-0.06 code = 5773921393) LYMPH x10^3 (test code 1.35 10*3/uL 1.09-3.23 = 731-0) MONO x10^3 (test code 0.76 10*3/uL 0.36-1.02 = 742-7) EOS x10^3 (test code = <0.03 0.06-0.53 L 711-2) BASO x10^3 (test code <0.03 0.01-0.09 = 704-7) Lab Interpretation Abnormal (test code = 05381-9) [facility] HospitalSARS-CoV-2 ORF1ab Resp Ql [id number] 19:38:49 Test Item Value Reference Range Interpretation Comments Hospitalized? (test Yes code = 26070-4) ICU? (test code = No 40445-4) Symptomatic as defined No by CDC? (test code = 16512-3) Employed in No Healthcare? (test code = 76957-3) Resident in a No congregate care setting (including nursing homes, residential care for people with intellectual and developmental disabilities, psychiatric treatment facilities, group homes, board and care homes, homeless assisted, foster care or other): (test code = 55022-6) SARS-CoV-2 ORF1ab Resp NOT DETECTED Not Detected INTER PRETATION: No Ql BETY+probe (test detectabl e levels code = 78040-4) of SARS-CoV- 2 Coronavirus (COVID-19) were present [...] n with SARS-CoV-2 Coronavirus (COVID-19). COMMENT: This [employer] SARS-CoV-2 molecular diagnostic assay utilizes [employer] Mediated Amplification (TMA) technology to rapidly detect the SARS-CoV-2 (COVID-19) virus from respiratory samples. In accordance with the FDA's guidance document "Policy for Diagnostic Tests for Coronavirus Disease- 2019 during the Public Health Emergency", this test was developed, and its performance characteristics were verified by the [facility] molecular diagnostics laboratory and is authorized for clinical diagnostic use. This laboratory is certified under the Clinical Laboratory Improvement Amendments (CLIA) as qualified to perform high complexity clinical laboratory testing.SARS-CoV-2 RNA Resp Ql BETY+[id number] 22:20:00 Test Item Value Reference Range Interpretation Comments Hospitalized? (test Yes code = 96720-6) ICU? (test code = No 44691-2) Symptomatic as defined No by CDC? (test code = 83190-9) Employed in Unknown Healthcare? (test code = 26301-9) Resident in a Unknown congregate care setting (including nursing homes, residential care for people with intellectual and developmental disabilities, psychiatric treatment facilities, group homes, board and care homes, homeless assisted, foster care or other): (test code = 96391-6) SARS-CoV-2 RNA Resp Ql NOT DETECTED Not Detected INTER PRETATION: No BETY+probe (test code = detec table levels 21947-1) of SARS-CoV-2 Coronavirus (COVID-19) were present in [...] its performance characteristics were verified by the [facility] molecular diagnostics laboratory and is authorized for clinical diagnostic use. This laboratory is certified under the Clinical Laboratory Improvement Amendments (CLIA) as qualified to perform high complexity clinical laboratory testing.SARS-CoV-2 ORF1ab Resp Ql BETY+[id number] 14:59:31 Test Item Value Reference Range Interpretation Comments Hospitalized? (test Yes code = 28518-6) ICU? (test code = Yes 181033-6) Symptomatic as defined No by CDC? (test code = 30100-8) Employed in No Healthcare? (test code = 91002-9) Resident in a No congregate care setting (including nursing homes, residential care for people with intellectual and developmental disabilities, psychiatric treatment facilities, group homes, board and care homes, homeless assisted, foster care or other): (test code = 56796-9) SARS-CoV-2 ORF1ab Resp NOT DETECTED Not Detected INTER PRETATION: No Ql BETY+probe (test detectabl e levels code = 04206-7) of SARS-CoV- 2 Coronavirus (COVID-19) were present [...] n with SARS-CoV-2 Coronavirus (COVID-19). COMMENT: This [employer] SARS-CoV-2 molecular diagnostic assay utilizes Manager [employer] Mediated Amplification (TMA) technology to rapidly detect the SARS-CoV-2 (COVID-19) virus from respiratory samples. In accordance with the FDA's guidance document "Policy for Diagnostic Tests for Coronavirus Disease- 2019 during the Public Health Emergency", this test was developed, and its performance characteristics were verified by the [facility] molecular diagnostics laboratory and is authorized for clinical diagnostic use. This laboratory is certified under the Clinical Laboratory Improvement Amendments (CLIA) as qualified to perform high complexity clinical laboratory testing.SARS-CoV-2 RNA Resp Ql BETY+[id number] 00:53:33 Test Item Value Reference Range Interpretation Comments Hospitalized? (test code Yes = 30547-2) ICU? (test code = No 66159-6) Symptomatic as defined No by CDC? (test code = 78538-6) Employed in Healthcare? No (test code = 69033-1) Resident in a congregate No care setting (including nursing homes, residential care for people with intellectual and developmental disabilities, psychiatric treatment facilities, group homes, board and care homes, homeless assisted, foster care or other): (test code = 45749-6) ? (test code = No 54638-8) SARS-CoV-2 RNA Resp Ql DETECTED Not Detected A INTER PRETATION: This BETY+probe (test code = [place] 847[address]-2) detectable RNA present for the SARS-CoV-2 Coronavirus [...] its performance characteristics were verified by the [facility] molecular diagnostics laboratory and is authorized for [...] NONE A MUCU) DRUGS OF ABUSE SCREEN [id number] 13:19:00 Test Item Value Reference Interpretation Comments [...] this result as normal/abnormal . BASIC METABOLIC [id number] 09:24:00 Test Item Value Reference Range Interpretation [...] this result as normal/abnormal . HEPATIC FUNCTION [id number] 09:24:00 Test Item Value Reference Range Interpretation [...] 59 Unit/L 45-117 N code = ALKP) [id number] 09:24:00 Test Item Value Reference Range Interpretation Comments ACETAMINOPHEN (test code = ACET) <2.0 mcG/ML 10.0-30.0 L [id number] 09:24:00 Test Item Value Reference Range Interpretation Comments ALCOHOL (test code = < 3 MG/DL 0-10 N MEDICAL ALCOHOL ALC) RESULTS. SITE W PREPPED WITH BE TADINE. <10 MG/DL ARE CONSIDERED NEGA TIVE. >400 MG/DL MAY BE FATAL.RESULTS F OR MEDICAL USE ONL Y. NOT TO BE USED FOR FORENSIC PURPOSES. [id number] 07:55:00 Test Item Value Reference Range Interpretation Comments SALICYLATE (test code < 1.7 MG/DL See_Comment L RESULT <2.8 IS = SMITH) CONSIDERED NEGA TIVE FOR SALICYLATE. [Automated mess age] The system [employer] generated this result transmitted ref erence range: 2.8-20.0 THER. The reference r johan was not used to interpret this result as normal/abnor mal. CBC W/AUTO [id number] 07:10:00 Test Item Value Reference Range Interpretation [...] 0.00 K/mm3 0.00-0.05 N NRBC#) ECG 12 [id number] 22:52:05 Test Item Value Reference Range Interpretation Comments Ventricular rate (test code = 253) Atrial rate (test code = 255) OH interval (test code = 266) QRSD interval [...] Judge MD ([id number]) on 11/26/2020 5:52:[address] PM [address]2021-10-11 22:52:05 Test Item Value Reference Range Interpretation Comments Ventricular rate (test code = 253) Atrial rate (test code = 255) OH interval (test code = 266) QRSD interval [...] Judge MD ([id number]) on 11/26/2020 5:52:04 PM [address]2021-10-11 22:52:05 Test Item Value Reference Range Interpretation Comments Ventricular rate (test code = 253) Atrial rate (test code = 255) OH interval (test code = 266) QRSD interval [...] Judge MD ([id number]) on 11/26/2020 5:52:04 PM [address]2021-10-11 22:52:05 Test Item Value Reference Range Interpretation Comments Ventricular rate (test code = 253) Atrial rate (test code = 255) OH interval (test code = 266) QRSD interval [...] Judge MD ([id number]) on 11/26/2020 5:52:04 PM [address]2021-10-11 22:52:05 Test Item Value Reference Range Interpretation Comments Ventricular rate (test code = 253) Atrial rate (test code = 255) OH interval (test code = 266) QRSD interval (test code = 260) QT interval (test code = 264) QTC interval (test code = 265) P axis 1 (test code = 267) QRS axis 1 (test code = 268) T wave axis (test code = 270) EKG impression (test Normal sinus code = 273) rhythm-Rightward axis-Borderline ECG-No previous ECGs available-Electronica y Signed By Doron Judge MD ([id number]) on 11/26/2020 5:52:04 PM [address]2021-10-11 22:52:05 Test Item Value Reference Range Interpretation Comments Ventricular rate (test code = 253) Atrial rate (test code = 255) OH interval (test code = 266) QRSD interval [...] Judge MD ([id number]) on 11/26/2020 5:52:04 PM [address]2021-10-11 22:52:05 Test Item Value Reference Range Interpretation Comments Ventricular rate (test code = 253) Atrial rate (test code = 255) OH interval (test code = 266) QRSD interval [...] Judge MD ([id number]) on 11/26/2020 5:52:04 PM [facility] 12 [id number] 22:52:05 Test Item Value Reference Range Interpretation Comments Ventricular rate (test code = 253) Atrial rate (test code = 255) OH interval (test code = 266) QRSD interval [...] Judge MD ([id number]) on 11/26/2020 5:52:04 PM [facility]2021-09-30 07:28:23 Test Item Value Reference Range Interpretation Comments Urine culture (test SEE COMMENT Bacteriu winston screen code = 8613021) negative. [facility]2021-09-30 07:28:23 Test Item Value Reference Range Interpretation Comments Urine culture (test SEE COMMENT Bacteriu winston screen code = 6376903) negative. [facility]2021-09-30 07:28:23 Test Item Value Reference Range Interpretation Comments Urine culture (test SEE COMMENT Bacteriu winston screen code = 9677423) negative. [facility]2021-09-30 07:28:23 Test Item Value Reference Range Interpretation Comments Urine culture (test SEE COMMENT Bacteriu winston screen code = 4381358) negative. [facility]2021-09-30 07:28:23 Test Item Value Reference Range Interpretation Comments Urine culture (test SEE COMMENT Bacteriu winston screen code = 6793411) negative. [facility]2021-09-30 07:28:23 Test Item Value Reference Range Interpretation Comments Urine culture (test SEE COMMENT Bacteriu winston screen code = 3342513) negative. [facility]2021-09-30 07:28:23 Test Item Value Reference Range Interpretation Comments Urine culture (test SEE COMMENT Bacteriu winston screen code = 8094719) negative. [facility]2021-09-30 07:28:23 Test Item Value Reference Range Interpretation Comments Urine culture (test SEE COMMENT Bacteriu winston screen code = 0575622) negative. [facility] VbmkylebQGQK-XtV-1 (COVID-19) RNA [Presence] in Respiratory specimen by BETY with probe [id number] 02:40:47 Test Item Value Reference Range Interpretation Comments SARS-CoV-2 (COVID-19) RNA Not detected Not-Detected [Presence] in Respiratory specimen by BETY with probe detection (test code = 36930-0) Whether patient is employed in a healthcare setting (test code = 16407-3) Whether the patient has symptoms related to condition of interest (test code = 85872-3) Patient was hospitalized because of this condition (test code = 73366-1) Whether the patient was admitted to intensive care unit (ICU) for condition of interest (test code = 35620-1) Whether patient resides in a congregate care setting (test code = 91485-4) SARS-CoV-2 (COVID-19) RNA [Presence] in Respiratory specimen by BETY with probe [id number] 03:12:16 Test Item Value Reference Range Interpretation Comments SARS-CoV-2 (COVID-19) RNA Not detected Not-Detected [Presence] in Respiratory specimen by BETY with probe detection (test code = 28887-7) Whether patient is employed in a healthcare setting (test code = 85870-1) Whether the patient has symptoms related to condition of interest (test code = 89689-4) Patient was hospitalized because of this condition (test code = 40908-9) Whether the patient was admitted to intensive care unit (ICU) for condition of interest (test code = 42618-5) Whether patient resides in a congregate care setting (test code = 70867-5) BASIC METABOLIC [id number] 09:20:00 Test Item Value Reference Range Interpretation [...] message] (test code = Index/DL The system [employer] HEMINDMinka) generated this result transmit isai reference range [...] as normal/abnormal . Specimen comments: CCHEPATIC FUNCTION [id number] 09:20:00 Test Item Value Reference Range Interpretation [...] code = ALKP) Specimen comments: CCTHYROID STIMULATING [id number] 09:20:00 Test Item Value Reference Range Interpretation Comments THYROID STIMULATING HORMONE 0.619 mc IU/ML 0.340-4.820 N (test code = TSH) Specimen comments: [id number] 09:20:00 Test Item Value Reference Range Interpretation [...] change s in troponin levelscharacter istic of ID. Specimen comments: [id number] 09:20:00 Test Item Value Reference Range Interpretation Comments ACETAMINOPHEN (test code = ACET) <2.0 mcG/ML 10.0-30.0 L Specimen comments: [id number] 09:20:00 Test Item Value Reference Range Interpretation Comments ALCOHOL (test code = < 3 MG/DL 0-10 N MEDICAL ALCOHOL ALC) RESULTS. SITE W PREPPED WITH BE TADINE. <10 MG/DL ARE CONSIDERED NEGA TIVE. >400 MG/DL MAY BE FATAL.RESULTS F OR MEDICAL USE ONL Y. NOT TO BE USED FOR FORENSIC PURPOSES. Specimen comments: [id number] 08:59:00 Test Item Value Reference Range Interpretation Comments SALICYLATE (test code < 1.7 MG/DL See_Comment L RESULT <2.8 IS = SMITH) CONSIDERED NEGA TIVE FOR SALICYLATE. [Automated mess age] The system [employer] generated this result transmitted ref erence range: 2.8-20.0 THER. The reference r johan was not used to interpret this result as normal/abnor mal. Specimen comments: CCBASIC METABOLIC [id number] 08:55:00 Test Item Value Reference Range Interpretation [...] message] (test code = Index/DL The system [employer] HEMINDMinka) generated this result transmit isai reference range [...] this result as normal/abnormal . Specimen comments: [facility] [id number] 08:55:00 Test Item Value Reference Range Interpretation [...] code = ALKP) Specimen comments: CCTHYROID STIMULATING [id number] 08:55:00 Test Item Value Reference Range Interpretation Comments THYROID STIMULATING HORMONE 0.619 mc IU/ML 0.340-4.820 N (test code = TSH) Specimen comments: [id number] 08:55:00 Test Item Value Reference Range Interpretation [...] change s in troponin levelscharacter istic of ID. Specimen comments: [id number] 08:55:00 Test Item Value Reference Range Interpretation Comments ACETAMINOPHEN (test code = ACET) mcG/ML 10.0-30.0 Specimen comments: [id number] 08:55:00 Test Item Value Reference Range Interpretation Comments ALCOHOL (test code = < 3 MG/DL 0-10 N MEDICAL ALCOHOL ALC) RESULTS. SITE W PREPPED WITH BE TADINE. <10 MG/DL ARE CONSIDERED NEGA TIVE. >400 MG/DL MAY BE FATAL.RESULTS F OR MEDICAL USE ONL Y. NOT TO BE USED FOR FORENSIC PURPOSES. Specimen comments: CCCBC W/AUTO [id number] 08:10:00 Test Item Value Reference Range Interpretation [...] NRBC#) Specimen comments: CC- XR CHEST 1 [id number] 03:12:00 [facility] : 1985 Sex: M FAX: Mahin Smallwood MD [phone] [place]: St: [facility] FAX: Vilma Coker [phone] Patient Name: ARLINE RAO Unit No: [id number] EXAMS: CPT CODE: [id number] XR CHEST 1 V 13911 EXAM: - XR CHEST 1 V HISTORY: [...] (314) TATUM Mcarthur NAME: ARLINE RAO Darvin [address] [place] [address] PHYS: [email or web address] - Vilma Curry, [place] [id number] : 1985 AGE: 35 SEX: M LOC: [facility] PHONE #: [phone] EXAM DATE: 10/16/2020 STATUS: JUDE FERNANDEZ FAX #: [phone] RAD NO: DC Dt: PAGE 1 Signed ReportCOVID 19 Asymptomatic IH [id number] 06:58:00 Test Item Value Reference Range Interpretation Comments COVID 19 Asymptomatic IH AG (test POSITIVE Negative A code = COVNONPUIAG) BASIC METABOLIC [id number] 04:22:00 Test Item Value Reference Range Interpretation [...] 8.3 mg/dL 8.4-10.2 L CA) LIVER FUNCTION [id number] 04:22:00 Test Item Value Reference Range Interpretation [...] U/L 38-126 N (test code = ALKP) [id number] 04:22:00 Test Item Value Reference Range Interpretation Comments ALCOHOL (test code = < 10 mg/dL <10 ALC) ~~~~~~~~~~~~~~~ ~~~~~~~ ~~~~~~~~~~~~~~~ ~~~~~~~ ~~~~~~ RESU LTS ARE TO BE USED FOR MEDICAL PURPOSES ONLY.F OR LEGAL PURPOSES THE SPECIMEN MUST B E COLLECTED BY A CHAINOF CUSTODY. LEGAL TESTING IS NOT PERFORME D BY THIS FACILITY. ~~~~~~~~~~~~~~~ ~~~~~~~ ~~~~~~~~~~~~~~~ ~~~~~~~ ~~~~~~ CBC W/AUTO [id number] 04:08:00 Test Item Value Reference Range Interpretation [...] x10 3/uL 0.0-0.1 N Coronavirus 2018 nCoV [id number] 17:19:00 Test Item Value Reference Range Interpretation Comments Coronavirus 2019 nCoV Bedside (test Negative Neg code = [id number]) [id number] 13:14:00 Test Item Value Reference Range Interpretation Comments SALICYLATE (test code < 1.7 MG/DL See_Comment L RESULT <2.8 IS = SMITH) CONSIDERED NEGA TIVE FOR SALICYLATE. [Automated mess age] The system [employer] generated this result transmitted ref erence range: 2.8-20.0 THER. The reference r johan was not used to interpret this result as normal/abnor mal. BASIC METABOLIC [id number] 13:03:00 Test Item Value Reference Range Interpretation [...] message] (test code = Index/DL The system [employer] HEMINDEX) generated this result transmit isai reference [...] this result as normal/abnormal . HEPATIC FUNCTION [id number] 13:03:00 Test Item Value Reference Range Interpretation [...] 87 Unit/L 45-117 N code = ALKP) [id number] 13:03:00 Test Item Value Reference Range Interpretation Comments ACETAMINOPHEN (test code = ACET) <2.0 mcG/ML 10.0-30.0 L [id number] 13:03:00 Test Item Value Reference Range Interpretation Comments ALCOHOL (test code = < 3 MG/DL 0-10 N MEDICAL ALCOHOL ALC) RESULTS. SITE W PREPPED WITH BE TADINE. <10 MG/DL ARE CONSIDERED NEGA TIVE. >400 MG/DL MAY BE FATAL.RESULTS F OR MEDICAL USE ONL Y. NOT TO BE USED FOR FORENSIC PURPOSES. DRUGS OF ABUSE SCREEN [id number] 12:38:00 Test Item Value Reference Interpretation Comments [...] this result as normal/abnormal . BASIC METABOLIC [id number] 12:37:00 Test Item Value Reference Range Interpretation [...] this result as normal/abnormal . HEPATIC FUNCTION [id number] 12:37:00 Test Item Value Reference Range Interpretation [...] 87 Unit/L 45-117 N code = ALKP) [id number] 12:37:00 Test Item Value Reference Range Interpretation Comments ACETAMINOPHEN (test code = ACET) mcG/ML 10.0-30.0 [id number] 12:37:00 Test Item Value Reference Range Interpretation Comments ALCOHOL (test code = < 3 MG/DL 0-10 N MEDICAL ALCOHOL ALC) RESULTS. SITE W PREPPED WITH BE TADINE. <10 MG/DL ARE CONSIDERED NEGA TIVE. >400 MG/DL MAY BE FATAL.RESULTS F OR MEDICAL USE ONL Y. NOT TO BE USED FOR FORENSIC PURPOSES. CBC W/AUTO [id number] 12:02:00 Test Item Value Reference Range Interpretation [...] code = 0.00 K/mm3 0.00-0.05 N NRBC#) [id number] 23:33:00 Test Item Value Reference Range Interpretation [...] change s in troponin levelscharacter istic of ID. B-TYPE NATRIURETIC [id number] 19:24:00 Test Item Value Reference Range Interpretation Comments B-TYPE NATRIURETIC PEPTIDE < 30.00 PG/ML 0.00-100.00 N (test code = BNP) URINALYSIS [id number] 15:43:00 Test Item Value Reference Range Interpretation [...] a.STF.VT15 AT 08/11/20 1302DRUGS OF ABUSE SCREEN [id number] 15:43:00 Test Item Value Reference Interpretation Comments [...] a.ST.VT15 AT 08/11/20 1302DRUGS OF ABUSE SCREEN [id number] 15:43:00 Test Item Value Reference Interpretation Comments [...] HAND 3 + V LT 2020-08-11 13:43:00 [facility] : 1985 Sex: M FAX: Lan Agee MD [phone] [place]: E St: PRE Patient Name: ARLINE RAO Unit No: [id number] EXAMS: CPT CODE: [id number] XR HAND 3 + V LT [address]199 EXAM: - XR HAND 3 + V [...] By: [email or web address] Orig Print D/T: S: 08/11/2020 (9496) [facility] NAME: JALENEDMUND [address] PHYS: Lan Dykes MD, [place] [address] : 1985 AGE: 34 SEX: M LOC: [facility] PHONE #: [phone] EXAM DATE: 08/11/2020 STATUS: PRE ER FAX #: [phone] RAD NO: DC Dt: PAGE 1 Signed Report- XR CHEST 1 [id number] 13:41:00 [facility] : 1985 Sex: M FAX: Lan Agee MD [phone] [place]: Art St: PRE Patient Name: ARLINE RAO Unit No: [id number] EXAMS: CPT CODE: [id number] XR CHEST 1 V 77560 EXAM: - XR CHEST 1 V Location [...] By: [email or web address] Orig Print D/T: S: 08/11/2020 (6874) [facility] Lyubov NAME: ARLINE RAO [address] [place] [address] PHYS: Lan Munroe MD [place], [place] [address] : 1985 AGE: 34 SEX: M LOC: [facility] PHONE #: [phone] EXAM DATE: 08/11/2020 STATUS: PRE ER FAX #: [phone] RAD NO: DC Dt: PAGE 1 Signed ReportCOMPREHENSIVE METABOLIC [id number] 12:50:00 Test Item Value Reference Range Interpretation [...] (test code = MG Index/DL The system [employer] HEMINDEX) generated this result transmit isai reference [...] to interpret this result as normal/abnormal . [id number] 12:50:00 Test Item Value Reference Range Interpretation [...] change s in troponin levelscharacter istic of ID. [id number] 12:50:00 Test Item Value Reference Range Interpretation Comments ACETAMINOPHEN (test code = ACET) < 2.0 mcG/ML 10.0-30.0 L [id number] 12:50:00 Test Item Value Reference Range Interpretation Comments ALCOHOL (test code = <3 MG/DL 0-10 N MEDICAL ALCOHOL RESULTS. ALC) SITE WAS PREPPE D WITH BETADINE. <10 MG/DL ARE CONSI DERED NEGATIVE. >400 MG/DL MAY BE FATAL.RESULTS F OR MEDICAL USE ONL Y. NOT TO BE USED FOR FOR ENSIC PURPOSES. [id number] 12:39:00 Test Item Value Reference Range Interpretation Comments SALICYLATE (test code 3.1 MG/DL See_Comment N [Auto mated message] = SMITH) The system [employer] generated this result transmitted ref erence range: 2.8-20.0 THER. The reference r johan was not used to interpret this result as normal/abnor mal. COMPREHENSIVE METABOLIC [id number] 12:39:00 Test Item Value Reference Range Interpretation [...] (test code = MG Index/DL The system [employer] HEMINDEX) generated this result transmit isai reference [...] to interpret this result as normal/abnormal . [id number] 12:39:00 Test Item Value Reference Range Interpretation [...] change s in troponin levelscharacter istic of ID. [id number] 12:39:00 Test Item Value Reference Range Interpretation Comments ACETAMINOPHEN (test code = ACET) < 2.0 mcG/ML 10.0-30.0 L [id number] 12:39:00 Test Item Value Reference Range Interpretation Comments ALCOHOL (test code = ALC) MG/DL 0-10 COMPREHENSIVE METABOLIC [id number] 12:34:00 Test Item Value Reference Range Interpretation [...] (test code = MG Index/DL The system [employer] HEMINDEX) generated this result transmit isai reference [...] to interpret this result as normal/abnormal . [id number] 12:34:00 Test Item Value Reference Range Interpretation Comments TROPONIN-I (test code = TROPI) NG/ML 0.000-0.045 [id number] 12:34:00 Test Item Value Reference Range Interpretation Comments ACETAMINOPHEN (test code = ACET) < 2.0 mcG/ML 10.0-30.0 L [id number] 12:34:00 Test Item Value Reference Range Interpretation Comments ALCOHOL (test code = ALC) MG/DL 0-10 CBC W/AUTO [id number] 12:23:00 Test Item Value Reference Range Interpretation [...] 0.00 K/mm3 0.00-0.05 N NRBC#) CBC WITH [id number] 09:49:19 Test Item Value Reference Range Interpretation Comments WBC (test code = See_Comment [Automated 6690-2) message] The sy stem which generated this result transmitted reference range : 4.20 - 10.70 10*3/?L. The reference range was not used to interpret this result as normal/abnormal . RBC (test code = See_Comment L [Automated 209-8) message] The sy stem which generated this [...] RDW-SD (test code = 42.9 fL 38.5-51.6 97845-5) RDW-CV (test code = 12.4 % 12.1-15.4 788-0) PLT (test code = See_Comment [Automated 777-3) message] The sy stem which generated this result transmitted reference range : 150 - 328 10*3/ ?L. The reference r johan was not used to interpret this result as normal/abnormal . MPV (test code = 9.8 fL 9.8-13.0 39564-2) NRBC/100 WBC (test See_Comment [Automat ed code = 8074247935) message] The system which generated this result transmitted reference range : 0.0 - 10.0 /100 WBCs. The refer ence range was not u sed to interpret th is result as normal/abnormal . NRBC x10^3 (test code <0.01 See_Comment [Auto mated = 6067405274) message] The s ystem which generated this result transmitted reference range : 10*3/?L. The reference range was not used to interpret this result as normal/abnormal . GRAN MAT (NEUT) % 41.9 % (test code = 770-8) IMM GRAN % (test code 0.20 % = 6897525308) LYMPH % (test code = 40.9 % 736-9) MONO % (test code = 13.7 % 5905-5) EOS % (test code = 3.1 % 713-8) BASO % (test code = 0.2 % 706-2) GRAN MAT x10^3(ANC) 1.89 10*3/uL 1.99-6.95 L (test code = 1504213020) IMM GRAN x10^3 (test <0.03 0.00-0.06 code = 9806070859) LYMPH x10^3 (test code 1.85 10*3/uL 1.09-3.23 = 731-0) MONO x10^3 (test code 0.62 10*3/uL 0.36-1.02 = 742-7) EOS x10^3 (test code = 0.14 10*3/uL 0.06-0.53 711-2) BASO x10^3 (test code <0.03 0.01-0.09 = 704-7) Lab Interpretation Abnormal (test code = 41928-3) [id number] 09:39:48 Test Item Value Reference Range Interpretation Comments TROPONIN I (test 0.002 ng/mL See_Comment [Automated code = 7422186264) message] The system which generated this result [...] ? Lab Interpretation Normal (test code = 07430-6) [facility] (36238[facility]2020-07-12 09:22:19 Test Item Value Reference Range Interpretation Comments NA (test code = 135 mmol/L 135-145 1483027394) K (test code = 3.6 mmol/L 3.5-5.0 1516573143) CL (test code = 103 mmol/L 98-108 9231452516) CO2 TOTAL (test code = 26 mmol/L 23-31 7206293943) AGAP (test code = 2-16 8331204291) BUN (test code = 17 mg/dL 7-23 0227068410) GLUCOSE (test code = 98 mg/dL 70-110 6366481707) CREATININE (test code = 0.82 mg/dL 0.60-1.25 9392418334) TOTAL BILI (test code = 1.3 mg/dL 0.1-1.1 H 5338715962) CALCIUM (test code = 8.4 mg/dL 8.6-10.6 L 9803598076) T PROTEIN (test code = 6.6 g/dL 6.3-8.2 7255229157) ALBUMIN (test code = 3.7 g/dL 3.5-5.0 8206281952) ALK PHOS (test code = 81 U/L 34-122 2857397655) ALTv (test code = 51 U/L 5-50 H 1742-6) AST(SGOT) (test code = 68 U/L 13-40 H 2443642295) eGFR (test code = mL/min/1.73m2 1185833987) GEORGIE (test code = GEORGIE) Association of [...] tests). Lab Interpretation Abnormal (test code = 92811-0) [facility], [id number] 09:22:14 Test Item Value Reference Range Interpretation Comments LIPASE (test code = 0880978505) 106 U/L 0-220 Lab Interpretation (test code = Normal 51767-3) [facility]21-[facility] 09:13:54 Test Item Value Reference Range Interpretation Comments APTT Patient (test See_Comment [Automat ed code = 3173-2) message] The system which generated this result transmitted reference range : 23 - 38 Seconds . The reference range was not used to interpr et this result as normal/abnormal . GEORGIE (test code = GEORGIE) [facility] patient population mean normal value for aPTT is 30 seconds. Lab Interpretation Normal (test code = 25932-3) [facility] / [id number] 09:11:53 Test Item Value Reference Range Interpretation [...] tions. Lab Interpretation (test Normal code = 82694-6) [facility] 2019 nCoV [id number] 08:52:00 Test Item Value Reference Range Interpretation Comments Coronavirus 2019 Negative NEGATIVE This test h as been nCoV Bedside (test authorize d by FDA under code = [id number]) an EUA for use byauthorized laboratories; This [...] and/o r diagnosis of CO VID-19 under Okxuyaj04 4(b)(1) of the Act, 21 U.S .C. 360bbb-3(b)(1), unless theauthorizatio n is terminated or r evoked sooner. DRUGS OF ABUSE [id number] 03:16:00 Test Item Value Reference Range Interpretation [...] poses (e.g employment testing). DRUGS OF ABUSE [id number] 02:47:00 Test Item Value Reference Range Interpretation [...] (test code = PHENCU) DRUGS OF ABUSE [id number] 02:38:00 Test Item Value Reference Range Interpretation [...] NEGATIVE (test code = PHENCU) BASIC METABOLIC [id number] 02:34:00 Test Item Value Reference Range Interpretation [...] 9.7 mg/dL 8.4-10.2 N CA) LIVER FUNCTION [id number] 02:34:00 Test Item Value Reference Range Interpretation [...] U/L 38-126 N (test code = ALKP) [id number] 02:34:00 Test Item Value Reference Range Interpretation Comments ACETAMINOPHEN (test code = ACET) <10 ug/mL 10-30 L [id number] 02:34:00 Test Item Value Reference Range Interpretation Comments SALICYLATE (test code < 1.0 mg/dL Negati ve <2.0 = SMITH) mg/dLTherapeuti c Range <20 mg/dL [id number] 02:34:00 Test Item Value Reference Range Interpretation Comments ALCOHOL (test code = < 10 mg/dL <10 ALC) ~~~~~~~~~~~~~~~ ~~~~~~~ ~~~~~~~~~~~~~~~ ~~~~~~~ ~~~~~~ RESU LTS ARE TO BE USED FOR MEDICAL PURPOSES ONLY.F OR LEGAL PURPOSES THE SPECIMEN MUST B E COLLECTED BY A CHAINOF CUSTODY. LEGAL TESTING IS NOT PERFORME D BY THIS FACILITY. ~~~~~~~~~~~~~~~ ~~~~~~~ ~~~~~~~~~~~~~~~ ~~~~~~~ ~~~~~~ URINALYSIS [id number] 02:27:00 Test Item Value Reference Range Interpretation [...] this result as normal/abnormal . CBC W/AUTO [id number] 02:18:00 Test Item Value Reference Range Interpretation [...] x10 3/uL 0.0-0.1 N DRUGS OF ABUSE [id number] 06:47:00 Test Item Value Reference Range Interpretation [...] non-medical pur poses (e.g employment testing). URINALYSIS [id number] 06:29:00 Test Item Value Reference Range Interpretation [...] this result as normal/abnormal . BASIC METABOLIC [id number] 03:28:00 Test Item Value Reference Range Interpretation [...] 9.0 mg/dL 8.4-10.2 N CA) LIVER FUNCTION [id number] 03:28:00 Test Item Value Reference Range Interpretation [...] U/L 38-126 N (test code = ALKP) [id number] 03:28:00 Test Item Value Reference Range Interpretation Comments ACETAMINOPHEN (test code = ACET) <10 ug/mL 10-30 L [id number] 03:28:00 Test Item Value Reference Range Interpretation Comments SALICYLATE (test code < 1.0 mg/dL Negati ve <2.0 = SMITH) mg/dLTherapeuti c Range <20 mg/dL [id number] 03:28:00 Test Item Value Reference Range Interpretation Comments ALCOHOL (test code = < 10 mg/dL <10 ALC) ~~~~~~~~~~~~~~~ ~~~~~~~ ~~~~~~~~~~~~~~~ ~~~~~~~ ~~~~~~ RESU LTS ARE TO BE USED FOR MEDICAL PURPOSES ONLY.F OR LEGAL PURPOSES THE SPECIMEN MUST B E COLLECTED BY A CHAINOF CUSTODY. LEGAL TESTING IS NOT PERFORME D BY THIS FACILITY. ~~~~~~~~~~~~~~~ ~~~~~~~ ~~~~~~~~~~~~~~~ ~~~~~~~ ~~~~~~ CBC W/AUTO [id number] 00:30:00 Test Item Value Reference Range Interpretation [...] 3/uL 0.0-0.1 N - CT C-SPINE W/O [id number] 23:37:00 Patient Name: ARLINE RAO Unit No: [id number] EXAMS: CPT CODE: [id number] CT C-SPINE W/O CONT 64403 Location: CT cervical spine, 08/29/19 TECHNIQUE: CT [...] CC: Lan Cooper MD Dictated Date/Time: 08/29/2019 (291) Technologist: Ara Steward CTDI: 16.41 DLP: 366.20 Trnscrpt: 08/29/2019 (8960) HeatherDAS6 TATUM Mcarthur NAME: JALEN[address] PHYS: Lan Munroe MD [place] [address] : 1985 AGE: 33 SEX: M LOC: KarenERS PHONE #: [phone] EXAM DATE: 08/29/2019 STATUS: REG ER FAX #: [phone] RAD #: D/C DT PAGE 1 Signed Report Patient Name: ARLINE RAO Unit No: [id number] EXAMS: CPT CODE: [id number] CT C-SPINE W/O CONT 17736 <Continued> Orig Print D/T: S: 08/29/2019 (0563) TATUM Mcarthur NAME: RAO[address] PHYS: [place] [address] : 1985 AGE: 33 SEX: M LOC: B.ERS PHONE #: [phone] EXAM DATE: 08/29/2019 STATUS: REG ER FAX #: [phone] RAD #: D/C DT PAGE 2 Signed Report- CT HEAD/BRAIN W/O [id number] 23:33:00 Patient Name: ARLINE ROA Unit No: [id number] EXAMS: CPT CODE: [id number] CT HEAD/BRAIN W/O CONT 21249 Location: H3 CT head, 08/29/19 COMPARISON EXAMS: [...] 45.96 DLP: 757.79 Trnscrpt: 08/29/2019 (2333) HeatherDAS6 [facility] [place] NAME: ARLINE RAO [address] [place] [address] PHYS: Lan Munroe MD, [place] [address] : 1985 AGE: 33 SEX: M LOC: CASSANDRA PHONE #:[phone] EXAM DATE: 08/29/2019 STATUS: REG ER FAX #: [phone] RAD #: D/C DT PAGE 1 Signed Report Patient Name: ARLINE RAO Unit No: [id number] EXAMS: CPT CODE: [id number] CT HEAD/BRAIN W/O CONT 10137 <Continued> Orig Print D/T: S: 08/29/2019 (2336) TATUM Mcarthur NAME: [address] PHYS: Lan Munroe MD, [place] [address] : 1985 AGE: 33 SEX: M LOC: B.ERS PHONE #: [phone] EXAM DATE:08/29/2019 STATUS: REG ER FAX #: [phone] RAD #: D/C DT PAGE 2 Signed ReportCOMPREHENSIVE METABOLIC [id number] 23:28:00 Test Item Value Reference Range Interpretation [...] code = LIPINDEX) MG Index/DL CBC W/AUTO [id number] 23:07:00 Test Item Value Reference Range Interpretation [...] 0.00 K/mm3 0.00-0.05 N NRBC#) BASIC METABOLIC [id number] 14:23:00 Test Item Value Reference Range Interpretation [...] NORMAL code = LIPINDEX) Index/DL HEPATIC FUNCTION [id number] 14:23:00 Test Item Value Reference Range Interpretation [...] 68 Unit/L 45-117 N code = ALKP) [id number] 14:23:00 Test Item Value Reference Range Interpretation Comments ALCOHOL (test code = 3 MG/DL 0-10 N MEDICAL ALCOHOL RESULTS. ALC) SITE WAS PREPPE D WITH BETADINE. <10 MG/DL ARE CONSI DERED NEGATIVE. >400 MG/DL MAY BE FATAL.RESULTS F OR MEDICAL USE ONL Y. NOT TO BE USED FOR FOR ENSIC PURPOSES. BASIC METABOLIC [id number] 14:17:00 Test Item Value Reference Range Interpretation [...] 1 NORMAL = LIPINDEX) Index/DL HEPATIC FUNCTION [id number] 14:17:00 Test Item Value Reference Range Interpretation [...] TOTAL (test code Unit/L 45-117 = ALKP) [id number] 14:17:00 Test Item Value Reference Range Interpretation Comments ALCOHOL (test code = ALC) MG/DL 0-10 CBC W/O [id number] 14:04:00 Test Item Value Reference Range Interpretation [...] = 9.4 fL 7.6-10.4 N MPV) RPR [id number] 14:01:19 Test Item Value Reference Range Interpretation [...] = 12-17-2019 N Expiration Dt) Thyroid Stimulating [id number] 09:09:16 Test Item Value Reference Range Interpretation Comments TSH (test code = TSH) 0.418 mIU/mL 0.270-4.200 Lipid [id number] 08:59:32 Test Item Value Reference Range Interpretation Comments Cholesterol Total 131 mg/dL 0-200 RISK OF HE ART (test code = DISEASEPublishe d by Cholesterol Total) Citizen Of [place] Heart Association Giovanna lyte Optimal Borderl ine [...] LDL/HDL Ratio=L DL Calc/HDL Chol Thyroid Stimulating [id number] 10:03:42 Test Item Value Reference Range Interpretation Comments TSH (test code = TSH) 1.560 mIU/mL 0.270-4.200 Lipid [id number] 09:52:10 Test Item Value Reference Range Interpretation Comments Cholesterol Total 210 mg/dL 0-200 H RISK OF HE ART (test code = DISEASEPublishe d by Cholesterol Total) Citizen [place] Heart Association Giovanna lyte Optimal Borderl ine [...] is LDL/HDL Ratio=L DL Calc/HDL Chol RPR [id number] 11:37:43 Test Item Value Reference Range Interpretation Comments RPR Qual (test code = RPR Qual) Non-Reactive Non-Reactive Reactive Control (test code = Reactive Reactive Control) Weak Reactive Control (test Weak Reactive code = Weak Reactive Control) Non-Reactive Control (test code Non-Reactive = Non-Reactive Control) Lot # (test code = Lot #) [id number] N Expiration Dt (test code = 12-17-19 N Expiration Dt) Urinalysis [id number] 23:07:47 Test Item Value Reference Range Interpretation Comments UA WBC (test code = UA WBC) None Seen 0-5 UA RBC (test code = UA RBC) None Seen 0-5 UA Bacteria (test code = UA None Seen Bacteria) UA Squam Epithelial (test code = UA 0-5 Squam Epithelial) Comprehensive Metabolic [id number] 22:29:50 Test Item Value Reference Range Interpretation [...] A/G 1.7 ratio N Ratio) Comprehensive Metabolic [id number] 22:29:50 Test Item Value Reference Range Interpretation [...] the National Kidney Foundation, http://nkdep.ni h.gov Alcohol Srnry5583-74-18 22:29:50 Test Item Value Reference Range Interpretation Comments Ethanol Level (test 0.06 g/dL 0.00-0.01 H Intoxica isai 0.080 g/dL code = Ethanol or more Level) Ethanol Inst (test 58 N code = Ethanol Inst) Comprehensive Metabolic [id number] 22:29:50 Test Item Value Reference Range Interpretation [...] ag e have not been validated by [facility] MDRD study and should be interpreted [...] ag e have not been validated by [facility] MDRD study and should be interpreted wit h caution. eGFR R esult Interpretation: eGFR > or = 60 is in the Normal RangeeGF R < 60 may mean kid tran diseaseeGFR < 1 5 may mean kidney failure Rang es recommended by the National Kidney Foundation, http://nkdep.ni h.gov Complete Blood Count with Mseppatdtrwq9147-10-48 22:14:44 Test Item Value Reference Range Interpretation [...] code = IPF) 0 % N Automated [id number] 22:14:44 Test Item Value Reference Range Interpretation Comments Neutro Auto (test code = Neutro 72.2 % 36.0-70.0 H Auto) Lymph Auto (test code = Lymph Auto) 19.6 % 12.0-44.0 Donley Auto (test code = Donley Auto) 6.9 % 0.0-11.0 Eos, Auto (test code = Eos, Auto) 0.0 % 0.0-7.0 Basophil Auto (test code = Basophil 0.4 % 0.0-2.0 Auto) Neutro Absolute (test code = Neutro 6.1 x10 1.6-7.4 Absolute) Lymph Absolute (test code = Lymph 1.67 x10 .50-4.60 Absolute) Donley Absolute (test code = Donley .59 x10 .00-1.20 Absolute) Eos Absolute (test code = Eos 0.00 x10 0.00-0.74 Absolute) Baso Absolute (test code = Baso 0.03 x10 0.00-0.21 Absolute) IG [id number] 22:14:44 Test Item Value Reference Range Interpretation Comments IG (test code = IG) 0.9 % 0.0-5.0 IG Abs (test code = IG Abs) 0 x10 N Urine Drug [id number] 22:14:38 Test Item Value Reference Range Interpretation [...] if desired . Urinalysis with Microscopic if [id number] 21:53:48 Test Item Value Reference Range Interpretation [...] Ind?) rule GL_SJM_UA_MICRO _IN D Urine Drug [id number] 09:31:28 Test Item Value Reference Range Interpretation [...] matory test if desired . Comprehensive Metabolic [id number] 09:17:22 Test Item Value Reference Range Interpretation [...] A/G 2.1 ratio N Ratio) Comprehensive Metabolic [id number] 09:17:22 Test Item Value Reference Range Interpretation [...] National Kidney Foundation, http://nkdep.ni h.gov Comprehensive Metabolic Ufjeh2085-10-57 09:17:22 Test Item Value Reference Range Interpretation [...] ag e have not been validated by [facility] MDRD study and should be interpreted [...] ag e have not been validated by [facility] MDRD study and should be interpreted wit h caution. eGFR R esult Interpretation: eGFR > or = 60 is in the Normal RangeeGF R < 60 may mean kid tran diseaseeGFR < 1 5 may mean kidney failure Rang es recommended by the National Kidney Foundation, http://nkdep.ni h.gov IG Ijhbe1436-55-58 09:08:10 Test Item Value Reference Range Interpretation Comments IG (test code = IG) 0.4 % 0.0-5.0 IG Abs (test code = IG Abs) 0 x10 N Complete Blood Count with [id number] 09:08:09 Test Item Value Reference Range Interpretation [...] code = IPF) 0 % N Automated [id number] 09:08:09 Test Item Value Reference Range Interpretation Comments Neutro Auto (test code = Neutro 73.6 % 36.0-70.0 H Auto) Lymph Auto (test code = Lymph Auto) 17.3 % 12.0-44.0 Donley Auto (test code = Donley Auto) 8.3 % 0.0-11.0 Eos, Auto (test code = Eos, Auto) 0.1 % 0.0-7.0 Basophil Auto (test code = Basophil 0.3 % 0.0-2.0 Auto) Neutro Absolute (test code = Neutro 5.1 x10 1.6-7.4 Absolute) Lymph Absolute (test code = Lymph 1.19 x10 .50-4.60 Absolute) Donley Absolute (test code = Donley .57 x10 .00-1.20 Absolute) Eos Absolute (test code = Eos 0.01 x10 0.00-0.74 Absolute) Baso Absolute (test code = Baso 0.02 x10 0.00-0.21 Absolute) ADC / LCC - DRUG SCREEN [id number] 02:56:00 Test Item Value Reference Range Interpretation Comments BENZO U (test code = Negative Negative 4325988258) EARL U (test code = Negative Negative 8023694863) AMPHET (test code = Presumptive Positive Negative A 2657823317) THC (test code = Negative Negative 0583417783) METHADONE (test code = Negative Negative 0809209450) Meth U (test code = Presumptive Positive Negative A 6024746656) OPIATES (test code = Negative Negative 7527786423) Cocaine Metabolite (test Negative Negative code = 7316295523) PROPOXY (test code = Negative Negative 1591554898) Tric U (test code = Negative Negative 3090029976) PCP (test code = Negative Negative 6263808398) OXYCOD (test code = Negative Negative 0679451641) GEORGIE (test code = GEORGIE) Urine Drug [...] testing). Lab Interpretation (test Abnormal code = 66550-5) [facility]et[facility]ophen[facility] Test Item Value Reference Range Interpretation Comments ACETAMINOP (test code = <10.0 10-30 L 1882920713) GEORGIE (test code = GEORGIE) Toxic: Greater than 200 ug/mL @ 4 hour post ingestion or greater than 50 ug/mL @ 12 hour post ingestion Lab Interpretation (test Abnormal code = 46545-1) [facility] HospitalSalicylate2019 02:40:00 Test Item Value Reference Range Interpretation Comments SALICYLATE (test code <10 mg/L = 0236539789) GEORGIE (test code = GEORGIE) Therapeutic Range:? Analgesic and Antipyretic Use? 20-100 mg/L? Anti-Inflammatory Use? 100-250 mg/LToxic Range:? Greater than 300 mg/L [facility] HospitalEthanol (ETOH) [id number] 02:40:00 Test Item Value Reference Range Interpretation Comments ALCOHOL (test code = <10 mg/dL 1412234764) GEORGIE (test code = GEORGIE) <10 Xunstuvf32-018 Toxic>100 Depression of EMPLOYMENT EDUCATIONAL COORD>400 Fatalities Reported [facility] Metabolic Panel (NA, K, CL, CO2, Glucose, BUN, Creatinine, CA)2018-11-05 02:35:00 Test Item Value Reference Range Interpretation Comments NA (test code = 142 mmol/L 135-145 7237898970) K (test code = 3.5 mmol/L 3.5-5 5566893743) CL (test code = 107 mmol/L 98-108 7208148069) CO2 TOTAL (test code = 25 mmol/L 23-31 0053901867) AGAP (test code = 2-16 7289508629) BUN (test code = 12 mg/dL 7-23 0648801479) GLUCOSE (test code = 90 mg/dL 70-110 5130122274) CREATININE (test code 0.77 mg/dL 0.6-1.25 = 4520339219) CALCIUM (test code = 9.3 mg/dL 8.6-10.6 3981460289) eGFR Calculation mL/min/1.73m2 (Non-) (test code = 7667364848) eGFR Calculation mL/min/1.73m2 () (test code = 9925331495) GEORGIE (test code = GEORGIE) Association of [...] or urine or abnormalities in imaging tests). [facility]Hep[facility] Function Panel (ALB, T.PRO, BILI T, BU/BC, ALT, AST, ALK PHOS)2018-11-05 02:35:00 Test Item Value Reference Range Interpretation Comments TOTAL BILI (test code = 0052888749) 1.0 mg/dL 0.1-1.1 BILI UNCON (test code = 1369519391) 0.8 mg/dL 0.1-1.1 BILI CONJ (test code = 5726310244) 0.0 mg/dL 0-0.3 T PROTEIN (test code = 6433397159) 7.0 g/dL 6.3-8.2 ALBUMIN (test code = 5395805270) 4.4 g/dL 3.5-5 ALK PHOS (test code = 9681143742) 71 U/L 34-122 ALT(SGPT) (test code = 3047790289) 39 U/L 9-51 AST(SGOT) (test code = 7107392875) 40 U/L 13-40 Lab Interpretation (test code = Normal 16897-4) [facility] HospitalCB WITH [id number] 02:10:00 Test Item Value Reference Range Interpretation Comments WBC (test code = See_Comment [Automated 7678-2) message] The sy stem which generated this result transmitted reference range : 4.20 - 10.70 10*3/?L. The reference range was not used to interpret this result as normal/abnormal . RBC (test code = See_Comment [Automated 979-8) message] The sy stem which generated this [...] RDW-SD (test code = 46.3 fL 38.5-51.6 88182-3) RDW-CV (test code = 13.1 % 12.1-15.4 788-0) PLT (test code = See_Comment [Automated 777-3) message] The sy stem which generated this result transmitted reference range : 150 - 328 10*3/ ?L. The reference r johan was not used to interpret this result as normal/abnormal . MPV (test code = 9.9 fL 9.8-13 09456-8) NRBC/100 WBC (test See_Comment [Automat ed code = 9928823917) message] The system which generated this result transmitted reference range : 0.0 - 10.0 /100 WBCs. The refer ence range was not u sed to interpret th is result as normal/abnormal . NRBC x10^3 (test code <0.01 See_Comment [Auto mated = 8278388348) message] The s ystem which generated this result transmitted reference range : 10*3/?L. The reference range was not used to interpret this result as normal/abnormal . GRAN MAT (NEUT) % 50.8 % (test code = 770-8) IMM GRAN % (test code 0.60 % = 8685603983) LYMPH % (test code = 33.8 % 736-9) MONO % (test code = 14.4 % 5905-5) EOS % (test code = 0.0 % 713-8) BASO % (test code = 0.4 % 706-2) GRAN MAT x10^3(ANC) 2.62 10*3/uL 1.99-6.95 (test code = 0063190125) IMM GRAN x10^3 (test 0.03 10*3/uL 0-0.06 code = 6382922213) LYMPH x10^3 (test code 1.74 10*3/uL 1.09-3.23 = 731-0) MONO x10^3 (test code 0.74 10*3/uL 0.36-1.02 = 742-7) EOS x10^3 (test code = <0.03 0.06-0.53 L 711-2) BASO x10^3 (test code <0.03 0.01-0.09 = 704-7) Lab Interpretation Abnormal (test code = 47029-8) [facility] HospitalComprehensive Metabolic Lwtop8869-77-28 13:14:00 Test Item Value Reference Range Interpretation [...] by the National Kidney Foundation,http ://nkd ep.nih.gov [id number] 13:09:00 Test Item Value Reference Range Interpretation [...] g/dL 0.00-0.01 N code = ETOHU) Urinalysis Fmfjltcc1174-04-61 12:59:00 Test Item Value Reference Range Interpretation Comments Color (test code = Yellow Yellow,Straw,Pl N COLOR) yellow Clarity (test code = Clear Clear N CLAR) Specific [place] (test 1.027 1.001-1.035 N code = SPGR) [...] code = Few /HPF BACT) CBC with Lnukikpeoylc4299-40-70 12:42:00 Test Item Value Reference Range Interpretation [...] code = ALYMPH) 2.3 K/cumm 0.5-4.6 N Donley Abs (test code = AMONO) 0.6 K/cumm 0.0-1.2 N Eos Abs (test code = AEOS) 0.09 K/cumm 0.00-0.74 N Baso Abs (test code = ABASO) 0.0 K/cumm 0.00-0.21 N Hepatic Function [id number] 18:55:00 Test Item Value Reference Range Interpretation [...] = ALT) 47 U/L 1-41 H HIV [id number] 12:45:00 Test Item Value Reference Range Interpretation Comments HIV 1/2 Antibody Non-Reactive Non-Reactive N HIV1/2 Anti body screen (test code = result indicate s the HIV1/2AB) absence of HIV1 and QEJ8vgzpywxoi.H owever, A Non-Reactive screen result does not [...] rule o ut exposure or infection.If ac [facility] HIV-1 is suspec isai, HIV RNA Quantit ative is recommended. RPR, Kacx0910-40-14 21:30:00 Test Item Value Reference Range Interpretation Comments RPR (test code = RPR) Non-Reactive Non-Reactive N Thyroid Stimulating Hormone (TSH)2017-03-17 09:55:00 Test Item Value Reference Range Interpretation Comments TSH (test code = TSH) 0.94 mIU/mL 0.270-4.200 N Lipid Plwdxle6810-43-32 09:53:00 Test Item Value Reference Range Interpretation Comments Cholesterol (test 124 mg/dL 0-200 N code = CHOL) Triglycerides (test 61 mg/dL 9-200 N code = TRIG) HDL (test code = 47 mg/dL 40-60 N HDL) Chol/HDL (test code 2.6 Ratio 0.0-5.0 N = CHOLPHDL) LDL, Calculated 65 0-130 N (NOTE)RISK O F HEART (test code = LDLC) DISEASEPu blished by Citizen Of [place] Heart AssociationAnal yte Optim al Boderline Increased RiskC HOL <200 200-239 >240TRI G <150 150-199 >200HDL Male: >60 <40HDL Female: >60 <50 LDL < 100 130-15 9 >160 LDL NEAR OPTIMAL IS 100- 129 VLDL (test code = 12 mg/dL 5-40 N VLDL) LDL/HDL (test code = 1 LDLPHDL) Urinalysis Xcvvyupv8060-07-44 15:09:00 Test Item Value Reference Range Interpretation Comments Color (test code = Yellow Yellow,Straw,Pl N COLOR) yellow Clarity (test code = Clear Clear N CLAR) Specific [place] (test 1.028 1.001-1.035 N code = SPGR) [...] = 0-1 Granular /HPF CASTS) Comprehensive Metabolic Tofdz3945-94-95 14:24:00 Test Item Value Reference Range Interpretation [...] by the National Kidney Foundation,http ://nkd ep.nih.gov [id number] 14:20:00 Test Item Value Reference Range Interpretation [...] 0.00-0.01 N code = ETOHU) CBC with Toigxndndvrp4870-00-25 14:08:00 Test Item Value Reference Range Interpretation [...] code = ALYMPH) 2.2 K/cumm 0.5-4.6 N Donley Abs (test code = AMONO) 0.9 K/cumm 0.0-1.2 N Eos Abs (test code = AEOS) 0.06 K/cumm 0.00-0.74 N Baso Abs (test code = ABASO) 0.0 K/cumm 0.00-0.21 N
[2021-07-28] MEDS ORDERED: HYDROCODONE/APAP 5/325 MG TAB ONE (14:57)
[2021-07-28] MEDS ORDERED: LORAZEPAM 0.5 MG TABLET ONE (14:57)
[2021-07-28 15:29] LABS: Absolute Lymphocytes (CBC) 2.1 K/uL (0.7-4.9); Hematocrit 47.1 % (39.6-49.0); Lymphocytes % 30.7 % (15.3-44.8); MPV 7.8 fL (7.6-11.3); RBC Red Blood Cell Count 4.89 M/uL (4.33-5.43)
[2021-07-28 15:30] LABS: Protime INR 0.89
--- NOTE | 2021-07-28 15:32 | RAD REPORT ---
EXAM DESCRIPTION: RAD - Elbow Right 3 View - 07/28/2021 3:03 pm CLINICAL HISTORY: Elbow pain FINDINGS: Bony/calcific densities lie adjacent to medial aspect of right elbow. All are presumably chronic No fracture or dislocation. If patient continues have symptoms to suggest an occult fracture, MRI would recommended
--- NOTE | 2021-07-28 15:33 | RAD REPORT ---
EXAM DESCRIPTION: Lyric Single View07/28/2021 3:03 pm CLINICAL HISTORY: Chest pain COMPARISON: June 2021 FINDINGS: The lungs appear clear of acute infiltrate. The heart is normal size IMPRESSION: No acute abnormalities displayed
[2021-07-28 15:42] LABS: ALT/SGPT 95 U/L (12-78); AST/SGOT 53 U/L (15-37); Albumin 3.5 g/dL (3.4-5.0); Alkaline Phosphatase 103 U/L (45-117); BUN Blood Urea Nitrogen 9 mg/dL (7-18); Bicarbonate 27 mmol/L (21-32); Bilirubin Total 0.3 mg/dL (0.2-1.0); Glomerular Filtration Rate 117 ml/min (=/>90); Glucose Level 87 mg/dL (74-106); NT PRO-BNP 9 pg/mL (<125); Potassium 3.8 mmol/L (3.5-5.1); Protein, Total 7.1 g/dL (6.4-8.2); Sodium Level 139 mmol/L (136-145); Troponin High Sensitivity 5.3 pg/mL (<58.9)
[2021-07-28 15:43] LABS: Bilirubin Direct < 0.1 mg/dL (0-0.2)
--- NOTE | 2021-07-28 16:36 | RAD REPORT ---
EXAM DESCRIPTION: CT - Chest For Pe Angio - 07/28/2021 4:18 pm CLINICAL HISTORY: Chest pain COMPARISON: May 2021 TECHNIQUE: Dynamically enhanced axial 3 mm thick images of the chest were obtained during administra tion of <100> mL Isovue 370 IV contrast. Coronal and oblique reconstruction images were generated and reviewed. Exam utilizes a protocol for optimal evaluation of pulmonary arterial tree. Maximum intensity projections 3D imaging was utilized All CT scans are performed using dose optimization technique as appropriate and may include automated exposure control or mA/KV adjustment according to patient size. FINDINGS: A pulmonary embolus is not seen. A thoracic aortic aneurysm is not noted. A pleural effusion is not seen. A pericardial effusion is not seen. A lung consolidation is not present. IMPRESSION: Negative for a pulmonary embolism.
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
[2021-07-28 18:18] VITALS: TEMP 98.2; O2SAT 100
[2021-07-28 18:23] VITALS: BP 108/53
--- NOTE | 2021-07-29 13:35 | EKG ---
Test Date: 2021-07-28 Test Time: 15:10:08 Heel Breaster: MANJIT MEASUREMENT RESULTS: Intervals: Rate: 80 TX: 148 QRSD: 90 QT: 346 QTc: 399 [place]: P: 41 TX: 148 QRS: 86 T: 61 INTERPRETIVE STATEMENTS: Normal sinus rhythm Normal ECG Compared to ECG 07/23/2021 16:36:19 No significant changes Electronically Signed On 07-29-21 13:33:47 CDT by Reza Salas
== END 2021-07-28 18:12 | disposition home or self-care (01) ==
LOC: ER 14:05
DX: R07.89 Other chest pain (principal); F41.9 Anxiety disorder, unspecified; Z88.6 Allergy status to analgesic agent; Z88.8 Allergy status to other drugs, medicaments and biological substances
CPT/HCPCS: 93005; 85025; 80048; 36415; 85610; 85379; 80076; 84484; 83880; 71275; 71045; 73080; 99284; Q9967

== ENCOUNTER 2021-07-31 21:46 | Emergency (ER) | payer OTHER ==
--- OUTSIDE RECORDS SUMMARY | 2021-07-31 21:55 | XMS REPORT | Continuity of Care Document ---
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 Future Scheduled 2021-07-02 INFLUENZA VACCINE [facility] Test 10:04:06 [code = INFLUENZA VACCINE] Future Scheduled 2021-07-02 Pneumococcal Vaccine: [facility] Test 10:04:06 Pediatrics (0 to 5 Years) and At-Risk Patients (6 to 64 Years) (1 - PCV) [code = Pneumococcal Vaccine: Pediatrics (0 to 5 Years) and At-Risk Patients (6 to 64 Years) (1 - PCV)] Future Scheduled 2021-07-02 Hepatitis C screening [facility] Test 10:04:06 (procedure) [code = 110162849] Future Scheduled 2021-07-02 COVID-19 VACCINE (3 - [facility] Test 10:04:06 Booster) [code = COVID-19 VACCINE (3 - Booster)] Future Scheduled 2021-07-02 INFLUENZA VACCINE [facility] Test 10:04:06 [code = INFLUENZA VACCINE] Future Scheduled 2021-07-02 Pneumococcal Vaccine: [facility] Test 10:04:06 Pediatrics (0 to 5 Years) and At-Risk Patients (6 to 64 Years) (1 - PCV) [code = Pneumococcal Vaccine: Pediatrics (0 to 5 Years) and At-Risk Patients (6 to 64 Years) (1 - PCV)] Future Scheduled 2021-07-02 Hepatitis C screening [facility] Test 10:04:06 (procedure) [code = 752902563] Future Scheduled 2021-07-02 COVID-19 VACCINE (3 - [facility] Test 10:04:06 Booster) [code = COVID-19 VACCINE (3 - Booster)] Future Scheduled 2021-07-02 INFLUENZA VACCINE [facility] Test 10:04:06 [code = INFLUENZA VACCINE] Future Scheduled 2021-05-23 Hep[facility] C [facility] Test 21:56:30 (procedure) [code = 619701994] Future Scheduled 2021-05-23 COVID-19 VACCINE (3 - [facility] Test 21:56:30 Booster) [code = COVID-19 VACCINE (3 - Booster)] Future Scheduled 2021-05-23 INFLUENZA VACCINE [facility] Test 21:56:30 [code = INFLUENZA VACCINE] Future Scheduled 2021-05-23 Hep[facility] C [facility] Test 21:56:30 (procedure) [code = 054326402] Future Scheduled 2021-05-23 COVID-19 VACCINE (3 - [facility] Test 21:56:30 Booster) [code = COVID-19 VACCINE (3 - Booster)] Future Scheduled 2021-05-23 INFLUENZA VACCINE [facility] Test 21:56:30 [code = INFLUENZA VACCINE] Future Scheduled 2021-05-23 [facility]56[facility]30 (procedure) [code = 247164602] Future Scheduled 2021-05-23 COVID-19 [facility]INE [facility] 21:56:30 Booster) [code = COVID-19 VACCINE (3 - Booster)] Future Scheduled 2021-05-23 INFLUENZA VACCINE [facility] 21:56:30 [code = INFLUENZA VACCINE] Future Scheduled 2021-01-31 [facility] 17:19:18 (procedure) [code = 636971924] Future Scheduled 2021-01-31 INFLUENZA VACCINE [facility] Test 17:19:18 [code = INFLUENZA VACCINE] Future Scheduled 2021-01-31 COVID-19 [facility]ACCINE [facility] 17:19:18 Booster) [code = COVID-19 VACCINE (3 - Booster)] Future Scheduled 2021-01-31 [facility] 17:19:18 (procedure) [code = 825797078] Future Scheduled 2021-01-31 INFLUENZA VACCINE [facility] Test 17:19:18 [code = INFLUENZA VACCINE] Future Scheduled 2021-01-31 COVID-19 VACCINE ([facility] 17:19:18 Booster) [code = COVID-19 VACCINE (3 - Booster)] Encounters Start End Encounter Admission Attending Care Care Encounter Source Date/Time Date/Time Type Type Clinicians Facility Department ID 2021-06-23 Outpatient [facility] [id number] [place] 01:45:[id number] [facility] 2021-03-14 Outpatient [id number] E[facility] CARLENE [id number] E[facility] 13:33:41 12212021-03-14 Outpatient [id number] E[facility] REF [id number] ENC[facility] 13:33:01 12202021-02-11 Inpatient NGHIAI, [facility] [id number] H arris 00:00:00 [facility] 2021-01-[address] [facility] [id number] [place] 07:00:09 [facility] 2021-01-22 Inpatient [facility] [id number] H arris 00:00:[address] [facility] 2021-01-21 Inpatient [facility] [id number] H arris 00:00:[address] [facility] 2021-01-20 Inpatient [facility] [id number] H arris 00:00:[address] [facility] 2021-01-18 Inpatient [facility] [id number] H arris 00:00:[address] [facility] 2021-01-17 Inpatient [facility] [id number] H arris 00:00:[address] [facility] 2021-01-16 Inpatient [facility] [id number] H arris 00:00:[address] [facility] 2021-01-15 Inpatient ROLDAN, [facility] [id number] [place] 00:00:00 [facility] 2021-01-13 Inpatient [facility] [id number] H arris 00:00:[address] [facility] 2021-01-12 Inpatient [facility] [id number] H arris 00:00:[address] [facility] 2021-01-11 Inpatient [facility] [id number] H arris 00:00:[address] [facility] 2021-01-10 Inpatient [facility] [id number] H arris 00:00:[address] [facility] 2021-01-09 Inpatient [facility] [id number] H arris 00:00:[address] [facility] 2021-01-08 [facility] [id number] [place] 00:00:00 [facility] 2021-01-06 Inpatient [facility] [id number] H arris 00:00:[address] [facility] 2021-01-05 [facility] [id number] [place] 00:00:00 [facility] 2021-01-04 [facility] [id number] [place] 00:00:00 [facility] 2021-01-03 [facility] [id number] [place] 00:00:00 [facility] 2021-01-02 Inpatient [facility] [id number] H arris 00:00:[address] [facility] 2020-12-30 Inpatient 1 MAREK, [facility] [id number] H arr[place] 22:32:00 BUSHRA Reid 2020-12-30 [facility] [id number] [place] 00:00:00 [facility] 2020-12-30 [facility] [id number] [place] 00:00:00 [facility] 2021-07-30 2021-07-30 Outpatient GC_BAHC_Tod PRIV PRIV [id number] [facility] 03:48:00 03:48:00 d_J [id number] [facility] 2021-07-26 2021-07-26 Outpatient GC_BAHC_Tod PRIV PRIV [id number] [facility] 08:05:00 08:05:00 d_J [id number] Medica l 2021-07-20 2021-07-20 Outpatient GC_BAHC_Tod PRIV PRIV [id number] [facility] 10:41:00 10:41:00 d_J [id number] Medica l 2021-07-18 2021-07-18 Outpatient GC_BAHC_Tod PRIV PRIV [id number] [facility] 02:03:00 02:03:00 d_J [id number] Medica l 2021-07-18 2021-07-18 Outpatient Lilly, PRIV PRIV [id number] 00:00:00 00:00:00 Jonah Garcia [id number] 2021-07-15 Outpatient GC_BAHC_Tod PRIV PRIV [id number] [facility] 10:43:00 10:43:00 d_J [id number] Medica l 2021-07-11 2021-07-11 Outpatient GC_BAHC_Tod PRIV PRIV [id number] [facility] 01:44:00 01:44:00 d_J [id number] Medica l 2021-07-05 2021-07-05 Outpatient GC_BAHC_Tod PRIV PRIV [id number] [facility] 09:29:00 09:29:00 d_J [id number] Medica l 2021-07-05 2021-07-05 Outpatient Michael, PRIV PRIV [id number] 00:00:00 00:00:00 Marina [id number] 2021-07-02 2021-07-02 Outpatient GC_BAHC_Tod PRIV PRIV [id number] [facility] 10:48:00 10:48:00 d_J [id number] Medica l 2021-07-02 2021-07-02 Outpatient Michael, PRIV PRIV [id number] e-[id number] 00:00:00 00:00:00 Marina [id number] 2021-06-30 2021-06-30 Outpatient GC_BAHC_Tod PRIV PRIV [id number] [facility] 06:52:00 06:52:00 d_J [id number] Medica l 2021-06-25 2021-06-25 Outpatient GC_BAHC_Tod PRIV PRIV [id number] [facility] 01:28:00 01:28:00 d_J [id number] Medica l 2021-06-25 2021-06-25 Outpatient Michael, PRIV PRIV [id number] c-d 00:00:00 00:00:00 Marina [id number] 2021-06-23 2021-06-23 Outpatient GC_BAHC_Tod PRIV PRIV [id number] [facility] 10:46:00 10:46:00 d_J [id number] Medica l 2021-06-18 2021-06-18 Outpatient GC_BAHC_Tod PRIV PRIV [id number] [facility] 01:40:00 01:40:00 d_J [id number] Medica l 2021-06-14 2021-06-14 Outpatient GC_BAHC_Tod PRIV PRIV [id number] [facility] 08:35:00 08:35:00 d_J [id number] Medica l 2021-06-14 2021-06-14 Outpatient Michael, PRIV PRIV [id number] 00:00:00 00:00:00 Marina [id number] 2021-06-11 Outpatient GC_BAHC_Tod PRIV PRIV [id number] [facility] 09:50:00 09:50:00 d_J [id number] Medica l 2021-06-11 2021-06-11 Outpatient Michael, PRIV PRIV [id number] 00:00:00 00:00:00 Marina [id number] 2021-06-06 2021-06-06 Outpatient GC_BAHC_Tod PRIV PRIV [id number] [facility] 01:01:00 01:01:00 d_J [id number] Medica l 2021-06-05 2021-06-05 Outpatient GC_BAHC_Tod PRIV PRIV [id number] [facility] 03:19:00 03:19:00 d_J [id number] Medica l 2021-06-04 2021-06-04 Outpatient GC_BAHC_Tod PRIV PRIV [id number] [facility] 01:42:00 01:42:00 d_J [id number] Medica l 2021-06-04 2021-06-04 Outpatient Michael, PRIV PRIV [id number] 00:00:00 00:00:00 Marina [id number] 2021-05-30 2021-05-30 Outpatient GC_BAHC_Tod PRIV PRIV [id number] [facility] 11:28:00 11:28:00 d_J [id number] Medica l 2021-05-30 2021-05-30 Outpatient Lilly, PRIV PRIV [id number]-[id number] 00:00:00 00:00:00 Jonah Garcia [id number] 2021-05-28 2021-05-28 Outpatient GC_BAHC_Tod PRIV PRIV [id number] [facility] 01:25:00 01:25:00 d_J [id number] Medica l 2021-05-28 2021-05-28 Outpatient Michael, PRIV PRIV [id number] 6-[id number] 00:00:00 00:00:00 Marina [id number] 2021-05-27 2021-05-27 Outpatient GC_BAHC_Tod PRIV PRIV [id number] [facility] 03:48:00 03:48:00 d_J [id number] Medica l 2021-05-24 2021-05-24 Outpatient GC_BAHC_Spa PRIV PRIV [id number] [facility] 04:32:00 04:32:00 Samuel [id number] Medica l 2021-05-07 2021-05-08 Outpatient Jagjit [facility] [id number] [facility] 08:26:00 04:30:00 MARTIN pinto [facility] 2021-05-07 2021-05-08 Emergency Tono Roberto [facility] 1.2.840. [id number] [facility] 08:26:00 04:30:00 Martin Clay 350.1.13.10 ity [facility] 4.2.7.2.686 [facility] [id number] [address] 2021-03-28 2021-03-28 Outpatient [facility] [id number] [place] 00:00:00 00:00:00 GALE maldonado 2021-03-20 2021-03-20 Outpatient PASCUAL MAHAN [facility] [id number] [place] 00:00:00 00:00:[address] [facility] 2020-12-30 2021-02-28 [facility] [id number] [place] 22:32:00 18:41:00 BUSHRA Booker 2020-12-30 2021-02-28 [facility] [id number] [place] 22:32:00 18:41:00 BUSHRA Booker 2021-02-15 2021-02-15 Inpatient [facility] [id number] [place] 10:50:13 11:18:[address] [facility] 2021-02-14 2021-02-14 Inpatient [facility] [id number] [place] 16:43:15 18:41:[address] [facility] 2021-02-14 2021-02-14 Inpatient [facility] [id number] [place] 07:24:16 09:18:[address] [facility] 2021-01-31 2021-01-31 Inpatient [facility] [id number] [place] 01:03:14 03:25:[address] [facility] 2021-01-25 2021-01-25 Inpatient [facility] [id number] [place] 01:35:50 03:05:[address] [facility] 2021-01-23 2021-01-23 Inpatient [facility] [id number] [place] 02:10:17 04:59:[address] [facility] 2021-01-21 2021-01-21 [facility] [id number] [place] 15:43:59 16:18:10 VANE maldonado I 2021-01-13 2021-01-13 Inpatient [facility] [id number] [place] 16:20:12 17:12:27 Health 2021-01-07 2021-01-07 Inpatient [facility] [id number] [place] 18:28:43 18:28:46 Health 2021-01-07 2021-01-07 Inpatient [facility] [id number] [place] 00:12:42 01:07:25 Health 2021-01-04 2021-01-04 Inpatient [facility] [id number] [place] 17:11:58 18:14:36 Health 2021-01-04 2021-01-04 Inpatient KARYN, [facility] [id number] [place] 13:40:49 15:55:44 [facility] 2021-01-03 2021-01-03 Inpatient [facility] [id number] [place] 17:58:59 17:59:[address] [facility] 2021-01-01 2021-01-01 Inpatient [facility] [id number] [place] 16:44:03 16:44:[address] [facility] 2021-01-01 2021-01-01 Inpatient CARTER, [facility] [id number] [place] 08:36:00 09:12:12 [facility] 2021-01-01 2021-01-01 Inpatient [facility] [id number] [place] 07:46:21 08:35:[address] [facility] 2021-01-01 2021-01-01 Inpatient YULI, [facility] [id number] [place] 02:09:24 03:31:22 [facility] 2020-12-31 2020-12-31 Inpatient MAREK, [facility] [id number] [place] 05:17:16 06:34:53 BUSHRA Booker 2020-12-31 2020-12-31 Inpatient [facility] [id number] [place] 01:50:33 06:34:[address] [facility] 2020-12-31 2020-12-31 Inpatient [facility] [id number] [place] 03:50:31 04:54:13 Health 2020-12-31 2020-12-31 Inpatient [facility] [id number] [place] 01:43:22 04:38:47 Health 2020-12-30 2020-12-30 Emergency [facility] [id number] [place] 22:46:36 23:04:47 Health 2020-12-30 2020-12-30 Emergency [facility] [id number] [place] 22:46:20 23:04:03 Health 2020-12-30 2020-12-30 Emergency [facility] [id number] [place] 22:47:41 23:03:[address] [facility] 2020-12-30 2020-12-30 Emergency LAKHWINDER, [facility] [id number] [place] 00:00:00 00:00:00 [facility] 2020-12-20 2020-12-20 Emergency EM Uziel, JYOTICR MALIKA [id number] [facility] 06:26:00 16:34:00 Erich 52 [facility] 2020-11-15 2020-11-16 Emergency Jodeereji Eusebia Ortiz 1.2.840 .1 [id number] Methodi 00:55:00 14:35:00 William Nunes [id number] 84 8 Mio Sorensen 3.430.2.7 Hospita .3.450329 l .8 2020-11-14 2020-11-14 Emergency Manju 1.2.840.1 [id number] Methodi 15:47:00 16:03:00 William Langston [address]258.1.[address] 3.430.2.7 Hospit a .3.234491 l .8 2020-10-22 2020-10-24 [facility] Dennis Wynn 1.2.840.1 [id number] Methodi 16:52:00 16:26:00 Encounter Pepito Gordillo [id number] Frieda Awadyla 3.430.2.7 [facility]un .3.293698 l .8 2020-10-16 2020-10-16 Emergency EM Hunter, JYOTICR MALIKA [id number] [facility] 00:20:00 08:00:00 Gale 21 [facility] 2020-10-06 2020-10-06 Emergency EM Zia, GORDON DALY [id number] [facility] 01:57:00 20:14:00 Darlene 71 [facility] 2020-09-05 2020-09-05 Emergency EM Michael Montero [facility] MALIKA [id number] [facility] 11:17:00 18:22:00 21 [facility] 2020-09-03 2020-09-03 Emergency EM Edvin, [facility] MAL[facility]A [id number] [facility] 03:35:00 15:00:00 Farhad Maradiaga [facility] 2020-09-02 2020-09-03 Emergency EM KylahMichael peters [facility] [id number] [facility] 23:16:00 01:53:00 82 [facility] 2020-08-11 2020-08-12 Emergency EM Giovanni-Kenneth, [facility] MAL[facility] [id number] [facility] 11:12:00 00:40:00 Naim 18 [facility] 2020-07-12 2020-07-12 Emergency [facility] [id number] 03:16:00 05:05:00 Michael Nichols 350.1.13.10 [place] 4.2.7.2.686 [place] [id number] [facility] 2020-07-12 2020-07-12 Emergency [facility] 1.2.352.539 [id number] [facility] 03:16:00 05:05:00 Namlashonda Carmita [place] 350.1.13.10 ity [facility] 4.2.7.2.686 [facility] [id number] [address] 2020-07-12 2020-07-12 Emergency X [facility] ERT [id number] [facility] 03:16:00 03:16:00 MICHAEL pinto [facility] 2019-08-29 2019-09-01 Inpatient [facility] [id number] [facility] 22:17:00 04:16:38 62 [facility] 2019-06-22 2019-06-24 Inpatient [facility] [id number] [facility] 13:23:00 06:39:56 74 [facility] 2019-02-21 2019-02-21 Outpatient [facility] [id number] [place] 00:00:00 00:00:[address] [facility] 2019-02-19 2019-02-19 Emergency [facility] T[facility] [id number] 07:23:00 07:23:00 [facility] 2019-02-01 2019-02-01 Outpatient [facility] [id number] [place] 22:11:49 22:11:[address] [facility] 2018-11-04 2018-11-05 Emergency Andrés, [facility] [id number] 20:38:48 05:13:00 Brown Nichols 350.1.13.10 [place] 4.2.7.2.686 [place] [id number] [facility] 2018-11-04 2018-11-05 Emergency Tiffany, [facility] [id number] [id number] [facility] 20:38:48 05:13:00 Brown Nichols 350.1.13.10 i ty of [place] 4.2.7.2.686 [facility] [id number] [address] 2018-10-18 2018-10-18 Emergency [facility] MED [id number] [place] 06:08:40 06:08:[address] [facility] 2017-04-02 2017-04-02 Outpatient [facility] [id number] [place] 00:00:00 00:00:[address] [facility] 2017-03-29 2017-03-29 Emergency [facility] [id number] [place] 00:00:48 00:00:[address] [facility] 2017-03-22 2017-03-22 Emergency [facility] [id number] 11:46:00 11:46:00 DEJAH V[facility] 2017-03-16 2017-03-20 [facility] [id number] 20:46:00 13:41:00 Jonathon DIOP M.D. [facility] 2017-01-26 2017-01-26 Outpatient COUNTS INCLUDE 234 [facility] [id number] [facility] 00:00:00 00:00:00 Results Test Description Test Time Test Comments Results Result Comments Source TROPONIN I 2021-05-08 04:00:37 Test Item Value Reference Range Interpretation Comme nts TROPONIN I (test code = 0.000 ng/mL See_Comment [Au tomated message] The [id number]) system which ge nerated this result tra [...] biotin. Lab Interpretation Normal (test code = 58978-3) [facility] [id number] 00:46:10 Test Item Value Reference Range Interpretation Comments ESR (test code = See_Comment H [Automated message] [id number]) The system [employer] generated this result transmitted ref erence range: 0 - 10 m m/HR. The reference r johan was not used to interpret this result as normal/abnor mal. Lab Interpretation (test Abnormal code = 65433-6) [facility] (A1C)2021-05-07 20:23:40 Test Item Value Reference Range Interpretation Comments HGB A1C (test code = 5.3 % 4.0-5.7 4548-4) GEORGIE (test code = GEORGIE) Reference RangesNormal: <5.7%Prediabetes: 5.7 - 6.4%Diabetes: > 6.5% Lab Interpretation (test Normal code = 29533-2) [facility] MET[facility]OLIC PANEL (78563)2021-05-07 16:11:59 Test Item Value Reference Range Interpretation Comments NA (test code = 139 mmol/L 135-145 7426345736) K (test code = 3.9 mmol/L 3.5-5.0 3169712133) CL (test code = 101 mmol/L 98-108 9700376337) CO2 TOTAL (test code = 23 mmol/L 23-31 7816506328) AGAP (test code = 2-16 6355022369) BUN (test code = 13 mg/dL 7-23 4795226132) GLUCOSE (test code = 92 mg/dL 70-110 9313534957) CREATININE (test code = 0.40 mg/dL 0.60-1.25 L 3182267349) TOTAL BILI (test code = 1.6 mg/dL 0.1-1.1 H 9951401683) CALCIUM (test code = 9.6 mg/dL 8.6-10.6 5522983600) T PROTEIN (test code = 7.7 g/dL 6.3-8.2 6758354604) ALBUMIN (test code = 4.6 g/dL 3.5-5.0 8045692774) ALK PHOS (test code = 91 U/L 34-122 4329517994) ALTv (test code = 24 U/L 5-50 1742-6) AST(SGOT) (test code = 31 U/L 13-40 8001134215) eGFR (test code = mL/min/1.73m2 6483902865) GEORGIE (test code = GEORGIE) Association of [...] tests). Lab Interpretation Abnormal (test code = 49060-6) [facility] [id number] 15:52:36 Test Item Value Reference Range Interpretation Comments APTT Patient (test See_Comment [Automat ed code = 3173-2) message] The system which generated this result transmitted reference range : 23 - 38 Seconds . The reference range was not used to interpr et this result as normal/abnormal . GEORGIE (test code = GEORGIE) The [facility] patient population mean normal value for aPTT is 30 seconds. Lab Interpretation Normal (test code = 98523-9) [facility] / [id number] 15:50:30 Test Item Value Reference Range Interpretation [...] tions. Lab Interpretation (test Normal code = 53841-8) [facility] [id number] 15:42:54 Test Item Value Reference Range Interpretation Comments WBC (test code = See_Comment [Automated 7990-2) message] The sy stem which generated this result transmitted reference range : 4.20 - 10.70 10*3/?L. The reference range was not used to interpret this result as normal/abnormal . RBC (test code = See_Comment [Automated 949-8) message] The sy stem which generated this [...] RDW-SD (test code = 44.1 fL 38.5-51.6 91767-2) RDW-CV (test code = 13.3 % 12.1-15.4 788-0) PLT (test code = See_Comment [Automated 777-3) message] The sy stem which generated this result transmitted reference range : 150 - 328 10*3/ ?L. The reference r johan was not used to interpret this result as normal/abnormal . MPV (test code = 9.7 fL 9.8-13.0 L 57675-7) NRBC/100 WBC (test See_Comment [Automat ed code = 5688618696) message] The system which generated this result transmitted reference range : 0.0 - 10.0 /100 WBCs. The refer ence range was not u sed to interpret th is result as normal/abnormal . NRBC x10^3 (test code <0.01 See_Comment [Auto mated = 1736510449) message] The s ystem which generated this result transmitted reference range : 10*3/?L. The reference range was not used to interpret this result as normal/abnormal . GRAN MAT (NEUT) % 77.6 % (test code = 770-8) IMM GRAN % (test code 0.60 % = 3937646900) LYMPH % (test code = 13.7 % 736-9) MONO % (test code = 7.7 % 5905-5) EOS % (test code = 0.2 % 713-8) BASO % (test code = 0.2 % 706-2) GRAN MAT x10^3(ANC) 7.68 10*3/uL 1.99-6.95 H (test code = 0098248084) IMM GRAN x10^3 (test 0.06 10*3/uL 0.00-0.06 code = 4429092156) LYMPH x10^3 (test code 1.35 10*3/uL 1.09-3.23 = 731-0) MONO x10^3 (test code 0.76 10*3/uL 0.36-1.02 = 742-7) EOS x10^3 (test code = <0.03 0.06-0.53 L 711-2) BASO x10^3 (test code <0.03 0.01-0.09 = 704-7) Lab Interpretation Abnormal (test code = 24578-6) [facility] HospitalSARS[facility] ORF1ab Resp Ql [id number] 19:38:49 Test Item Value Reference Range Interpretation Comments Hospitalized? (test Yes code = 28079-4) ICU? (test code = No 87377-6) Symptomatic as defined No by CDC? (test code = 72790-5) Employed in No Healthcare? (test code = 96117-0) Resident in a No congregate care setting (including nursing homes, residential care for people with intellectual and developmental disabilities, psychiatric treatment facilities, group homes, board and care homes, homeless assisted, foster care or other): (test code = 17447-2) SARS-CoV-2 ORF1ab Resp NOT DETECTED Not Detected INTER PRETATION: No Ql BETY+probe (test detectabl e levels code = 08310-8) of SARS-CoV- 2 Coronavirus (COVID-19) were present [...] n with SARS-CoV-2 Coronavirus (COVID-19). COMMENT: This Hol[employer]ptima SARS-CoV-2 molecular diagnostic assay utilizes Security Agent Mediated Amplification (TMA) technology to rapidly detect the SARS-CoV-2 (COVID-19) virus from respiratory samples. In accordance with the FDA's guidance document "Policy for Diagnostic Tests for Coronavirus Disease- 2019 during the Public Health Emergency", this test was developed, and its performance characteristics were verified by the [facility] molecular diagnostics laboratory and is authorized for clinical diagnostic use. This laboratory is certified under the Clinical Laboratory Improvement Amendments (CLIA) as qualified to perform high complexity clinical laboratory testing.SARS-CoV-2 RNA Resp Ql [id number] 22:20:00 Test Item Value Reference Range Interpretation Comments Hospitalized? (test Yes code = 70898-9) ICU? (test code = No 28253-3) Symptomatic as defined No by CDC? (test code = 46127-6) Employed in Unknown Healthcare? (test code = 47081-8) Resident in a Unknown congregate care setting (including nursing homes, residential care for people with intellectual and developmental disabilities, psychiatric treatment facilities, group homes, board and care homes, homeless assisted, foster care or other): (test code = 84460-0) SARS-CoV-2 RNA Resp Ql NOT DETECTED Not Detected INTER PRETATION: No BETY+probe (test code = detec table levels 39000-4) of SARS-CoV-2 Coronavirus (COVID-19) were present in [...] its performance characteristics were verified by the [facility] molecular diagnostics laboratory and is authorized for clinical diagnostic use. This laboratory is certified under the Clinical Laboratory Improvement Amendments (CLIA) as qualified to perform high complexity clinical laboratory testing.SARS-CoV-2 ORF1ab Resp Ql BETY+oypui7320-11-86 14:59:31 Test Item Value Reference Range Interpretation Comments Hospitalized? (test Yes code = 79118-5) ICU? (test code = Yes 470911-9) Symptomatic as defined No by CDC? (test code = 91176-1) Employed in No Healthcare? (test code = 24469-0) Resident in a No congregate care setting (including nursing homes, residential care for people with intellectual and developmental disabilities, psychiatric treatment facilities, group homes, board and care homes, homeless assisted, foster care or other): (test code = 83573-4) SARS-CoV-2 ORF1ab Resp NOT DETECTED Not Detected INTER PRETATION: No Ql BETY+probe (test detectabl e levels code = 97459-0) of SARS-CoV- 2 Coronavirus (COVID-19) were present [...] n with SARS-CoV-2 Coronavirus (COVID-19). COMMENT: This [employer] SARS-CoV-2 molecular diagnostic assay utilizes Security Agent Mediated Amplification (TMA) technology to rapidly detect the SARS-CoV-2 (COVID-19) virus from respiratory samples. In accordance with the FDA's guidance document "Policy for Diagnostic Tests for Coronavirus Disease- 2019 during the Public Health Emergency", this test was developed, and its performance characteristics were verified by the [facility] molecular diagnostics laboratory and is authorized for clinical diagnostic use. This laboratory is certified under the Clinical Laboratory Improvement Amendments (CLIA) as qualified to perform high complexity clinical laboratory testing.SARS-CoV-2 RNA Resp Ql BETY+[id number] 00:53:33 Test Item Value Reference Range Interpretation Comments Hospitalized? (test code Yes = 77035-2) ICU? (test code = No 64569-6) Symptomatic as defined No by CDC? (test code = 69511-4) Employed in Healthcare? No (test code = 97177-2) Resident in a congregate No care setting (including nursing homes, residential care for people with intellectual and developmental disabilities, psychiatric treatment facilities, group homes, board and care homes, homeless assisted, foster care or other): (test code = 33039-8) ? (test code = No 62565-1) SARS-CoV-2 RNA Resp Ql DETECTED Not Detected A INTER PRETATION: This BETY+probe (test code = odalys nt's sample had 15716-5) detectable RNA present for the SARS-CoV-2 Coronavirus [...] its performance characteristics were verified by the [facility] molecular diagnostics laboratory and is authorized [...] NONE A MUCU) DRUGS OF ABUSE SCREEN [id number] 13:19:00 Test Item Value Reference Interpretation Comments [...] this result as normal/abnormal . BASIC METABOLIC [id number] 09:24:00 Test Item Value Reference Range Interpretation [...] (test code = Index/DL The system noa vidales HEMINDEX) generated this result transmit isai reference [...] this result as normal/abnormal . HEPATIC FUNCTION [id number] 09:24:00 Test Item Value Reference Range Interpretation [...] 59 Unit/L 45-117 N code = ALKP) [id number] 09:24:00 Test Item Value Reference Range Interpretation Comments ACETAMINOPHEN (test code = ACET) <2.0 mcG/ML 10.0-30.0 L [id number] 09:24:00 Test Item Value Reference Range Interpretation Comments ALCOHOL (test code = < 3 MG/DL 0-10 N MEDICAL ALCOHOL ALC) RESULTS. SITE W PREPPED WITH BE TADINE. <10 MG/DL ARE CONSIDERED NEGA TIVE. >400 MG/DL MAY BE FATAL.RESULTS F OR MEDICAL USE ONL Y. NOT TO BE USED FOR FORENSIC PURPOSES. [id number] 07:55:00 Test Item Value Reference Range Interpretation Comments SALICYLATE (test code < 1.7 MG/DL See_Comment L RESULT <2.8 IS = SMITH) CONSIDERED NEGA TIVE FOR SALICYLATE. [Automated mess age] The system Zhou Heiya h generated this result transmitted ref erence range: 2.8-20.0 THER. The reference r johan was not used to interpret this result as normal/abnor mal. CBC W/AUTO [id number] 07:10:00 Test Item Value Reference Range Interpretation [...] 0.00 K/mm3 0.00-0.05 N NRBC#) ECG 12 [id number] 22:52:05 Test Item Value Reference Range Interpretation Comments Ventricular rate (test code = 253) Atrial rate (test code = 255) NM interval (test code = 266) QRSD interval [...] Judge MD ([id number]) on 11/26/2020 5:52:[address]2021-10-11 22:52:05 Test Item Value Reference Range Interpretation Comments Ventricular rate (test code = 253) Atrial rate (test code = 255) NM interval (test code = 266) QRSD interval [...] Judge MD ([id number]) on 11/26/2020 5:52:[address]2021-10-11 22:52:05 Test Item Value Reference Range Interpretation Comments Ventricular rate (test code = 253) Atrial rate (test code = 255) NM interval (test code = 266) QRSD interval [...] Judge MD ([id number]) on 11/26/2020 5:52:[address]2021-10-11 22:52:05 Test Item Value Reference Range Interpretation Comments Ventricular rate (test code = 253) Atrial rate (test code = 255) NM interval (test code = 266) QRSD interval [...] Judge MD ([id number]) on 11/26/2020 5:52:[address]2021-10-11 22:52:05 Test Item Value Reference Range Interpretation Comments Ventricular rate (test code = 253) Atrial rate (test code = 255) NM interval (test code = 266) QRSD interval [...] Judge MD ([id number]) on 11/26/2020 5:52:[address]2021-10-11 22:52:05 Test Item Value Reference Range Interpretation Comments Ventricular rate (test code = 253) Atrial rate (test code = 255) NM interval (test code = 266) QRSD interval [...] Judge MD ([id number]) on 11/26/2020 5:52:[address]2021-10-11 22:52:05 Test Item Value Reference Range Interpretation Comments Ventricular rate (test code = 253) Atrial rate (test code = 255) NM interval (test code = 266) QRSD interval [...] Judge MD ([id number]) on 11/26/2020 5:52:04 PM [facility] 12 [id number] 22:52:05 Test Item Value Reference Range Interpretation Comments Ventricular rate (test code = 253) Atrial rate (test code = 255) NM interval (test code = 266) QRSD interval [...] Judge MD ([id number]) on 11/26/2020 5:52:[address] [facility]2021-09-30 07:28:23 Test Item Value Reference Range Interpretation Comments Urine culture (test SEE COMMENT Bacteriu winston screen code = 4451501) negative. [facility]2021-09-30 07:28:23 Test Item Value Reference Range Interpretation Comments Urine culture (test SEE COMMENT Bacteriu [place] screen code = 3026517) negative. [facility]2021-09-30 07:28:23 Test Item Value Reference Range Interpretation Comments Urine culture (test SEE COMMENT Bacteriu [place] screen code = 2536460) negative. [facility]2021-09-30 07:28:23 Test Item Value Reference Range Interpretation Comments Urine culture (test SEE COMMENT Bacteriu [place] screen code = 2158947) negative. [facility]2021-09-30 07:28:23 Test Item Value Reference Range Interpretation Comments Urine culture (test SEE COMMENT Bacteriu [place] screen code = 4736317) negative. [place] [id number] 07:28:23 Test Item Value Reference Range Interpretation Comments Urine culture (test SEE COMMENT Bacteriu win[place] screen code = 2740943) negative. [facility]2021-09-30 07:28:23 Test Item Value Reference Range Interpretation Comments Urine culture (test SEE COMMENT Bacteriu [place] screen code = 3582599) [id number] 07:28:23 Test Item Value Reference Range Interpretation Comments Urine culture (test SEE COMMENT Bacteriu [place] screen code = 0602471) [facility] [Presence] in Respiratory specimen by BETY with probe [id number] 02:40:47 Test Item Value Reference Range Interpretation Comments SARS-CoV-2 (COVID-19) RNA Not detected Not-Detected [Presence] in Respiratory specimen by BETY with probe detection (test code = 38689-1) Whether patient is employed in a healthcare setting (test code = 79300-5) Whether the patient has symptoms related to condition of interest (test code = 20059-1) Patient was hospitalized because of this condition (test code = 23371-8) Whether the patient was admitted to intensive care unit (ICU) for condition of interest (test code = 30051-3) Whether patient resides in a congregate care setting (test code = 06026-7) SARS-CoV-2 (COVID-19) RNA [Presence] in Respiratory specimen by BETY with probe [id number] 03:12:16 Test Item Value Reference Range Interpretation Comments SARS-CoV-2 (COVID-19) RNA Not detected Not-Detected [Presence] in Respiratory specimen by BETY with probe detection (test code = 32418-2) Whether patient is employed in a healthcare setting (test code = 73399-1) Whether the patient has symptoms related to condition of interest (test code = 51861-8) Patient was hospitalized because of this condition (test code = 83224-6) Whether the patient was admitted to intensive care unit (ICU) for condition of interest (test code = 20842-8) Whether patient resides in a congregate care setting (test code = 36957-3) BASIC METABOLIC [id number] 09:20:00 Test Item Value Reference Range Interpretation [...] message] (test code = Index/DL The system [employer]) generated this result transmit isai reference range [...] this result as normal/abnormal . Specimen comments[facility] [id number] 09:20:00 Test Item Value Reference Range Interpretation [...] code = ALKP) Specimen comments: CCTHYROID STIMULATING [id number] 09:20:00 Test Item Value Reference Range Interpretation Comments THYROID STIMULATING HORMONE 0.619 mc IU/ML 0.340-4.820 N (test code = TSH) Specimen comments: [id number] 09:20:00 Test Item Value Reference Range Interpretation [...] change s in troponin levelscharacter istic of [place]. Specimen comments: [id number] 09:20:00 Test Item Value Reference Range Interpretation Comments ACETAMINOPHEN (test code = ACET) <2.0 mcG/ML 10.0-30.0 L Specimen comments: [id number] 09:20:00 Test Item Value Reference Range Interpretation Comments ALCOHOL (test code = < 3 MG/DL 0-10 N MEDICAL ALCOHOL ALC) RESULTS. SITE W PREPPED WITH BE TADINE. <10 MG/DL ARE CONSIDERED NEGA TIVE. >400 MG/DL MAY BE FATAL.RESULTS F OR MEDICAL USE ONL Y. NOT TO BE USED FOR FORENSIC PURPOSES. Specimen comments: [id number] 08:59:00 Test Item Value Reference Range Interpretation Comments SALICYLATE (test code < 1.7 MG/DL See_Comment L RESULT <2.8 IS = SMITH) CONSIDERED NEGA TIVE FOR SALICYLATE. [Automated mess age] The system [employer] generated this result transmitted ref erence range: 2.8-20.0 THER. The reference r johan was not used to interpret this result as normal/abnor mal. Specimen comments: CCBASIC METABOLIC [id number] 08:55:00 Test Item Value Reference Range Interpretation [...] message] (test code = Index/DL The system [employer] HEMINDEX) generated this result transmit isai reference [...] this result as normal/abnormal . Specimen comments: [facility] [id number] 08:55:00 Test Item Value Reference Range Interpretation [...] code = ALKP) Specimen comments: CCTHYROID STIMULATING [id number] 08:55:00 Test Item Value Reference Range Interpretation Comments THYROID STIMULATING HORMONE 0.619 mc IU/ML 0.340-4.820 N (test code = TSH) Specimen comments: [id number] 08:55:00 Test Item Value Reference Range Interpretation [...] change s in troponin levelscharacter istic of [place]. Specimen comments: [id number] 08:55:00 Test Item Value Reference Range Interpretation Comments ACETAMINOPHEN (test code = ACET) mcG/ML 10.0-30.0 Specimen comments: [id number] 08:55:00 Test Item Value Reference Range Interpretation Comments ALCOHOL (test code = < 3 MG/DL 0-10 N MEDICAL ALCOHOL ALC) RESULTS. SITE W PREPPED WITH BE TADINE. <10 MG/DL ARE CONSIDERED NEGA TIVE. >400 MG/DL MAY BE FATAL.RESULTS F OR MEDICAL USE ONL Y. NOT TO BE USED FOR FORENSIC PURPOSES. Specimen comments: CCCBC W/AUTO [id number] 08:10:00 Test Item Value Reference Range Interpretation [...] NRBC#) Specimen comments: CC- XR CHEST 1 [id number] 03:12:00 [facility] : 1985 Sex: M FAX: Mahin Smallwood MD [phone] [place]: St: REG FAX: Vilma Coker [phone] Patient Name: ARLINE RAO Unit No: [id number] EXAMS: CPT CODE: [id number] XR CHEST 1 V 35967 EXAM: - XR CHEST 1 V HISTORY: [...] By: [email or web address] Orig Print D/T: S: 10/16/2020 (0315) TATUM Mcarthur NAME: ARLINE RAO [address] PHYS: Vilma [place], [place] [address] : 1985 AGE: 35 SEX: M LOC: [facility] PHONE #: [phone] EXAM DATE: 10/16/2020 STATUS: REG ER FAX #: [phone] RAD NO: DC Dt: PAGE 1 Signed ReportCOVID 19 Asymptomatic IH [id number] 06:58:00 Test Item Value Reference Range Interpretation Comments COVID 19 Asymptomatic IH AG (test POSITIVE Negative A code = COVNONPUIAG) BASIC METABOLIC [id number] 04:22:00 Test Item Value Reference Range Interpretation [...] 8.3 mg/dL 8.4-10.2 L CA) LIVER FUNCTION [id number] 04:22:00 Test Item Value Reference Range Interpretation [...] U/L 38-126 N (test code = ALKP) [id number] 04:22:00 Test Item Value Reference Range Interpretation Comments ALCOHOL (test code = < 10 mg/dL <10 ALC) ~~~~~~~~~~~~~~~ ~~~~~~~ ~~~~~~~~~~~~~~~ ~~~~~~~ ~~~~~~ RESU LTS ARE TO BE USED FOR MEDICAL PURPOSES ONLY.F OR LEGAL PURPOSES THE SPECIMEN MUST B E COLLECTED BY A CHAINOF CUSTODY. LEGAL TESTING IS NOT PERFORME D BY THIS FACILITY. ~~~~~~~~~~~~~~~ ~~~~~~~ ~~~~~~~~~~~~~~~ ~~~~~~~ ~~~~~~ CBC W/AUTO [id number] 04:08:00 Test Item Value Reference Range Interpretation [...] x10 3/uL 0.0-0.1 N Coronavirus 2018 nCoV [id number] 17:19:00 Test Item Value Reference Range Interpretation Comments Coronavirus 2019 nCoV Bedside (test Negative Neg code = [id number]) [id number] 13:14:00 Test Item Value Reference Range Interpretation Comments SALICYLATE (test code < 1.7 MG/DL See_Comment L RESULT <2.8 IS = SMITH) CONSIDERED NEGA TIVE FOR SALICYLATE. [Automated mess age] The system [employer] generated this result transmitted ref erence range: 2.8-20.0 THER. The reference r johan was not used to interpret this result as normal/abnor mal. BASIC METABOLIC [id number] 13:03:00 Test Item Value Reference Range Interpretation [...] message] (test code = Index/DL The system [employer] HEMINDEX) generated this result transmit isai reference [...] this result as normal/abnormal . HEPATIC FUNCTION [id number] 13:03:00 Test Item Value Reference Range Interpretation [...] 87 Unit/L 45-117 N code = ALKP) [id number] 13:03:00 Test Item Value Reference Range Interpretation Comments ACETAMINOPHEN (test code = ACET) <2.0 mcG/ML 10.0-30.0 L [id number] 13:03:00 Test Item Value Reference Range Interpretation Comments ALCOHOL (test code = < 3 MG/DL 0-10 N MEDICAL ALCOHOL ALC) RESULTS. SITE W PREPPED WITH BE TADINE. <10 MG/DL ARE CONSIDERED NEGA TIVE. >400 MG/DL MAY BE FATAL.RESULTS F OR MEDICAL USE ONL Y. NOT TO BE USED FOR FORENSIC PURPOSES. DRUGS OF ABUSE SCREEN [id number] 12:38:00 Test Item Value Reference Interpretation Comments [...] this result as normal/abnormal . BASIC METABOLIC [id number] 12:37:00 Test Item Value Reference Range Interpretation [...] (test code = Index/DL The system noa vida HEMINDEX) generated this result transmit isai reference [...] this result as normal/abnormal . HEPATIC FUNCTION [id number] 12:37:00 Test Item Value Reference Range Interpretation [...] 87 Unit/L 45-117 N code = ALKP) [id number] 12:37:00 Test Item Value Reference Range Interpretation Comments ACETAMINOPHEN (test code = ACET) mcG/ML 10.0-30.0 [id number] 12:37:00 Test Item Value Reference Range Interpretation Comments ALCOHOL (test code = < 3 MG/DL 0-10 N MEDICAL ALCOHOL ALC) RESULTS. SITE W PREPPED WITH BE TADINE. <10 MG/DL ARE CONSIDERED NEGA TIVE. >400 MG/DL MAY BE FATAL.RESULTS F OR MEDICAL USE ONL Y. NOT TO BE USED FOR FORENSIC PURPOSES. CBC W/AUTO [id number] 12:02:00 Test Item Value Reference Range Interpretation [...] code = 0.00 K/mm3 0.00-0.05 N NRBC#) [id number] 23:33:00 Test Item Value Reference Range Interpretation [...] change s in troponin levelscharacter istic of [place]. B-TYPE NATRIURETIC [id number] 19:24:00 Test Item Value Reference Range Interpretation Comments B-TYPE NATRIURETIC PEPTIDE < 30.00 PG/ML 0.00-100.00 N (test code = BNP) URINALYSIS [id number] 15:43:00 Test Item Value Reference Range Interpretation [...] 0-3 RBCU) PENDING RECEIPT OF SPECIMEN PER a.[facility].VT15 AT 08/11/20 1302DRUGS OF ABUSE SCREEN [id number] 15:43:00 Test Item Value Reference Interpretation Comments [...] a.ST.VT15 AT 08/11/20 1302DRUGS OF ABUSE SCREEN [id number] 15:43:00 Test Item Value Reference Interpretation Comments [...] HAND 3 + V LT 2020-08-11 13:43:00 [facility] : 1985 Sex: M FAX: Lan Agee MD [phone] [place]: E St: PRE Patient Name: ARLINE RAO Unit No: [id number] EXAMS: CPT CODE: [id number] XR HAND 3 + V LT 47216 EXAM: - XR HAND 3 + V [...] CC: Lan Cooper MD Dictated Date/Time: 08/11/2020 (8763)Technologist: Damaris Martinez Transcribed Date/Time: 08/11/2020 (1343) By: [email or web address] Orig Print D/T: S: 08/11/2020 (2924) [facility] Lyubov NAME: EDMUND RAO [address] PHYS: Lan Dykes [place], [place] [address] : 1985 AGE: 34 SEX: M LOC: B.ERS PHONE #: [phone] EXAM DATE: 08/11/2020 STATUS: PRE ER FAX #: [phone] RAD NO: DC Dt: PAGE 1 Signed Report- XR CHEST 1 [id number] 13:41:00 [facility] : 1985 Sex: M FAX: Lan Agee MD [phone] [place]: E St: PRE Patient Name: ARLINE RAO Unit No: [id number] EXAMS: CPT CODE: [id number] XR CHEST 1 V 86580 EXAM: - XR CHEST 1 V Location [...] By: [email or web address] Orig Print D/T: S: 08/11/2020 (9080) TATUM Mcarthur NAME: ARLINE RAO [address] [place] [address] PHYS: Lan [place], [place] [address] : 1985 AGE: 34 SEX: M LOC: [facility] PHONE #: [phone] EXAM DATE: 08/11/2020 STATUS: PRE ER FAX #: [phone] RAD NO: DC Dt: PAGE 1 Signed ReportCOMPREHENSIVE METABOLIC [id number] 12:50:00 Test Item Value Reference Range Interpretation [...] (test code = MG Index/DL The system [employer] HEMINDEX) generated this result transmit isai reference [...] to interpret this result as normal/abnormal . [id number] 12:50:00 Test Item Value Reference Range Interpretation [...] change s in troponin levelscharacter istic of [place]. [id number] 12:50:00 Test Item Value Reference Range Interpretation Comments ACETAMINOPHEN (test code = ACET) < 2.0 mcG/ML 10.0-30.0 L [id number] 12:50:00 Test Item Value Reference Range Interpretation Comments ALCOHOL (test code = <3 MG/DL 0-10 N MEDICAL ALCOHOL RESULTS. ALC) SITE WAS PREPPE D WITH BETADINE. <10 MG/DL ARE CONSI DERED NEGATIVE. >400 MG/DL MAY BE FATAL.RESULTS F OR MEDICAL USE ONL Y. NOT TO BE USED FOR FOR ENSIC PURPOSES. [id number] 12:39:00 Test Item Value Reference Range Interpretation Comments SALICYLATE (test code 3.1 MG/DL See_Comment N [Auto mated message] = SMITH) The system XE Corporation generated this result transmitted ref erence range: 2.8-20.0 THER. The reference r johan was not used to interpret this result as normal/abnor mal. COMPREHENSIVE METABOLIC [id number] 12:39:00 Test Item Value Reference Range Interpretation [...] (test code = MG Index/DL The system [employer] HEMINDEX) generated this result transmit isai reference [...] to interpret this result as normal/abnormal . [id number] 12:39:00 Test Item Value Reference Range Interpretation [...] change s in troponin levelscharacter istic of [place]. [id number] 12:39:00 Test Item Value Reference Range Interpretation Comments ACETAMINOPHEN (test code = ACET) < 2.0 mcG/ML 10.0-30.0 L [id number] 12:39:00 Test Item Value Reference Range Interpretation Comments ALCOHOL (test code = ALC) MG/DL 0-10 COMPREHENSIVE METABOLIC [id number] 12:34:00 Test Item Value Reference Range Interpretation [...] (test code = MG Index/DL The system [employer] HEMINDEX) generated this result transmit isai reference [...] to interpret this result as normal/abnormal . [id number] 12:34:00 Test Item Value Reference Range Interpretation Comments TROPONIN-I (test code = TROPI) NG/ML 0.000-0.045 [id number] 12:34:00 Test Item Value Reference Range Interpretation Comments ACETAMINOPHEN (test code = ACET) < 2.0 mcG/ML 10.0-30.0 L [id number] 12:34:00 Test Item Value Reference Range Interpretation Comments ALCOHOL (test code = ALC) MG/DL 0-10 CBC W/AUTO [id number] 12:23:00 Test Item Value Reference Range Interpretation [...] 0.00 K/mm3 0.00-0.05 N NRBC#) CBC WITH [id number] 09:49:19 Test Item Value Reference Range Interpretation Comments WBC (test code = See_Comment [Automated 0190-2) message] The sy stem which generated this result transmitted reference range : 4.20 - 10.70 10*3/?L. The reference range was not used to interpret this result as normal/abnormal . RBC (test code = See_Comment L [Automated 429-8) message] The sy stem which generated this [...] RDW-SD (test code = 42.9 fL 38.5-51.6 90788-9) RDW-CV (test code = 12.4 % 12.1-15.4 788-0) PLT (test code = See_Comment [Automated 777-3) message] The sy stem which generated this result transmitted reference range : 150 - 328 10*3/ ?L. The reference r johan was not used to interpret this result as normal/abnormal . MPV (test code = 9.8 fL 9.8-13.0 66399-9) NRBC/100 WBC (test See_Comment [Automat ed code = 1294470854) message] The system which generated this result transmitted reference range : 0.0 - 10.0 /100 WBCs. The refer ence range was not u sed to interpret th is result as normal/abnormal . NRBC x10^3 (test code <0.01 See_Comment [Auto mated = 1441014914) message] The s ystem which generated this result transmitted reference range : 10*3/?L. The reference range was not used to interpret this result as normal/abnormal . GRAN MAT (NEUT) % 41.9 % (test code = 770-8) IMM GRAN % (test code 0.20 % = 2866190088) LYMPH % (test code = 40.9 % 736-9) MONO % (test code = 13.7 % 5905-5) EOS % (test code = 3.1 % 713-8) BASO % (test code = 0.2 % 706-2) GRAN MAT x10^3(ANC) 1.89 10*3/uL 1.99-6.95 L (test code = 2257621136) IMM GRAN x10^3 (test <0.03 0.00-0.06 code = 3571025026) LYMPH x10^3 (test code 1.85 10*3/uL 1.09-3.23 = 731-0) MONO x10^3 (test code 0.62 10*3/uL 0.36-1.02 = 742-7) EOS x10^3 (test code = 0.14 10*3/uL 0.06-0.53 711-2) BASO x10^3 (test code <0.03 0.01-0.09 = 704-7) Lab Interpretation Abnormal (test code = 48511-0) [facility] [id number] 09:39:48 Test Item Value Reference Range Interpretation Comments TROPONIN I (test 0.002 ng/mL See_Comment [Automated code = 6106621592) message] The system which generated this result [...] ? Lab Interpretation Normal (test code = 32000-1) [facility]OL[facility] PANEL (40058)2020-07-12 09:22:19 Test Item Value Reference Range Interpretation Comments NA (test code = 135 mmol/L 135-145 6725347464) K (test code = 3.6 mmol/L 3.5-5.0 5763689353) CL (test code = 103 mmol/L 98-108 0790318306) CO2 TOTAL (test code = 26 mmol/L 23-31 2097053254) AGAP (test code = 2-16 3724799537) BUN (test code = 17 mg/dL 7-23 8929331437) GLUCOSE (test code = 98 mg/dL 70-110 1298540509) CREATININE (test code = 0.82 mg/dL 0.60-1.25 9671891055) TOTAL BILI (test code = 1.3 mg/dL 0.1-1.1 H 9404699230) CALCIUM (test code = 8.4 mg/dL 8.6-10.6 L 7303832646) T PROTEIN (test code = 6.6 g/dL 6.3-8.2 3016062530) ALBUMIN (test code = 3.7 g/dL 3.5-5.0 7894631073) ALK PHOS (test code = 81 U/L 34-122 8104486227) ALTv (test code = 51 U/L 5-50 H 1742-6) AST(SGOT) (test code = 68 U/L 13-40 H 3774039556) eGFR (test code = mL/min/1.73m2 9555078012) GEORGIE (test code = GEORGIE) Association of [...] tests). Lab Interpretation Abnormal (test code = 59394-9) [facility]LIP[facility], [id number] 09:22:14 Test Item Value Reference Range Interpretation Comments LIPASE (test code = 2025580507) 106 U/L 0-220 Lab Interpretation (test code = Normal 02437-1) [facility] HospitalaPTT2021-05-27 09:13:54 Test Item Value Reference Range Interpretation Comments APTT Patient (test See_Comment [Automat ed code = 3173-2) message] The system which generated this result transmitted reference range : 23 - 38 Seconds . The reference range was not used to interpr et this result as normal/abnormal . GEORGIE (test code = GEORGIE) The [facility] patient population mean normal value for aPTT is 30 seconds. Lab Interpretation Normal (test code = 11733-5) [facility] HospitalPROTHROMBIN TIME / [id number] 09:11:53 Test Item Value Reference Range Interpretation [...] tions. Lab Interpretation (test Normal code = 18308-5) [facility] HospitalCoronavirus 2019 nCoV Guuqrrx7151-67-23 08:52:00 Test Item Value Reference Range Interpretation Comments Coronavirus 2019 Negative NEGATIVE This test h as been nCoV Bedside (test authorize d by FDA under code = [id number]) an EUA for use byauthorized laboratories; This [...] and/o r diagnosis of CO VID-19 under Nvdhccf60 4(b)(1) of the Act, 21 U.S .C. 360bbb-3(b)(1), unless theauthorizatio n is terminated or r evoked sooner. DRUGS OF ABUSE [id number] 03:16:00 Test Item Value Reference Range Interpretation [...] poses (e.g employment testing). DRUGS OF ABUSE [id number] 02:47:00 Test Item Value Reference Range Interpretation [...] (test code = PHENCU) DRUGS OF ABUSE [id number] 02:38:00 Test Item Value Reference Range Interpretation [...] NEGATIVE (test code = PHENCU) BASIC METABOLIC [id number] 02:34:00 Test Item Value Reference Range Interpretation [...] 9.7 mg/dL 8.4-10.2 N CA) LIVER FUNCTION [id number] 02:34:00 Test Item Value Reference Range Interpretation [...] U/L 38-126 N (test code = ALKP) [id number] 02:34:00 Test Item Value Reference Range Interpretation Comments ACETAMINOPHEN (test code = ACET) <10 ug/mL 10-30 L [id number] 02:34:00 Test Item Value Reference Range Interpretation Comments SALICYLATE (test code < 1.0 mg/dL Negati ve <2.0 = SMITH) mg/dLTherapeuti c Range <20 mg/dL [id number] 02:34:00 Test Item Value Reference Range Interpretation Comments ALCOHOL (test code = < 10 mg/dL <10 ALC) ~~~~~~~~~~~~~~~ ~~~~~~~ ~~~~~~~~~~~~~~~ ~~~~~~~ ~~~~~~ RESU LTS ARE TO BE USED FOR MEDICAL PURPOSES ONLY.F OR LEGAL PURPOSES THE SPECIMEN MUST B E COLLECTED BY A CHAINOF CUSTODY. LEGAL TESTING IS NOT PERFORME D BY THIS FACILITY. ~~~~~~~~~~~~~~~ ~~~~~~~ ~~~~~~~~~~~~~~~ ~~~~~~~ ~~~~~~ URINALYSIS [id number] 02:27:00 Test Item Value Reference Range Interpretation [...] this result as normal/abnormal . CBC W/AUTO [id number] 02:18:00 Test Item Value Reference Range Interpretation [...] x10 3/uL 0.0-0.1 N DRUGS OF ABUSE [id number] 06:47:00 Test Item Value Reference Range Interpretation [...] non-medical pur poses (e.g employment testing). URINALYSIS [id number] 06:29:00 Test Item Value Reference Range Interpretation [...] this result as normal/abnormal . BASIC METABOLIC [id number] 03:28:00 Test Item Value Reference Range Interpretation [...] 9.0 mg/dL 8.4-10.2 N CA) LIVER FUNCTION [id number] 03:28:00 Test Item Value Reference Range Interpretation [...] U/L 38-126 N (test code = ALKP) [id number] 03:28:00 Test Item Value Reference Range Interpretation Comments ACETAMINOPHEN (test code = ACET) <10 ug/mL 10-30 L [id number] 03:28:00 Test Item Value Reference Range Interpretation Comments SALICYLATE (test code < 1.0 mg/dL Negati ve <2.0 = SMITH) mg/dLTherapeuti c Range <20 mg/dL [id number] 03:28:00 Test Item Value Reference Range Interpretation Comments ALCOHOL (test code = < 10 mg/dL <10 ALC) ~~~~~~~~~~~~~~~ ~~~~~~~ ~~~~~~~~~~~~~~~ ~~~~~~~ ~~~~~~ RESU LTS ARE TO BE USED FOR MEDICAL PURPOSES ONLY.F OR LEGAL PURPOSES THE SPECIMEN MUST B E COLLECTED BY A CHAINOF CUSTODY. LEGAL TESTING IS NOT PERFORME D BY THIS FACILITY. ~~~~~~~~~~~~~~~ ~~~~~~~ ~~~~~~~~~~~~~~~ ~~~~~~~ ~~~~~~ CBC W/AUTO [id number] 00:30:00 Test Item Value Reference Range Interpretation [...] 3/uL 0.0-0.1 N - CT C-SPINE W/O [id number] 23:37:00 Patient Name: ARLINE RAO Unit No: [id number] EXAMS: CPT CODE: [id number] CT C-SPINE W/O CONT 18711 Location: CT cervical spine, 08/29/19 TECHNIQUE: CT [...] CC: Lan Cooper MD Dictated Date/Time: 08/29/2019 (5915) Technologist: Ara Steward CTDI: 16.41 DLP: 366.20 Trnscrpt: 08/29/2019 (0721) HeatherDAS6 TATUM Mcarthur NAME: JALEN[address] PHYS: Lan [place] [address] : 1985 AGE: 33 SEX: M LOC: BDELMI PHONE #: [phone] EXAM DATE: 08/29/2019 STATUS: REG ER FAX #: [phone] RAD #: D/C DT PAGE 1 Signed Report Patient Name: ARLINE RAO Unit No: [id number] EXAMS: CPT CODE: [id number] CT C-SPINE W/O CONT 64039 <Continued> Orig Print D/T: S: 08/29/2019 (3332) TATUM Mcarthur NAME: J[address]EN[address] PHYS: Lan Munroe [place] [address] : 1985 AGE: 33 SEX: M LOC: Hayder.ERS PHONE #: [phone] EXAM DATE: 08/29/2019 STATUS: REG ER FAX #: [phone] RAD #: D/C DT PAGE 2 Signed Report- CT HEAD/BRAIN W/O [id number] 23:33:00 Patient Name: ARLINE RAO Unit No: [id number] EXAMS: CPT CODE: [id number] CT HEAD/BRAIN W/O CONT 63753 Location: CT head, 08/29/19 COMPARISON EXAMS: None [...] MD Dictated Date/Time: 08/29/2019 (2333) Technologist: Ara Steawrd CTDI: 45.96 DLP: 757.79 Trnscrpt: 08/29/2019 (2333) HeatherDAS6 [facility] NAME: ARLINE RAO [address] [place] [address] PHYS: Lan Munroe MD, [place] [address] : 1985 AGE: 33 SEX: M LOC: Hayder.ERS PHONE #:[phone] EXAM DATE: 08/29/2019 STATUS: REG ER FAX #: [phone] RAD #: D/C DT PAGE 1 Signed Report Patient Name: ARLINE RAO Unit No: [id number] EXAMS: CPT CODE: [id number] CT HEAD/BRAIN W/O CONT 00924 <Continued> Orig Print D/T: S: 08/29/2019 (2336) TATUM Mcarthur NAME: ARLINE RAO [address] [place] [address] Blvd PHYS: Lan Munroe MD, [place] [address] : 1985 AGE: 33 SEX: M LOC: B.ERS PHONE #: [phone] EXAM DATE:08/29/2019 STATUS: REG ER FAX #: [phone] RAD #: D/C DT PAGE 2 Signed ReportCOMPREHENSIVE METABOLIC [id number] 23:28:00 Test Item Value Reference Range Interpretation [...] code = LIPINDEX) MG Index/DL CBC W/AUTO [id number] 23:07:00 Test Item Value Reference Range Interpretation [...] 0.00 K/mm3 0.00-0.05 N NRBC#) BASIC METABOLIC [id number] 14:23:00 Test Item Value Reference Range Interpretation [...] NORMAL code = LIPINDEX) Index/DL HEPATIC FUNCTION [id number] 14:23:00 Test Item Value Reference Range Interpretation [...] 68 Unit/L 45-117 N code = ALKP) [id number] 14:23:00 Test Item Value Reference Range Interpretation Comments ALCOHOL (test code = 3 MG/DL 0-10 N MEDICAL ALCOHOL RESULTS. ALC) SITE WAS PREPPE D WITH BETADINE. <10 MG/DL ARE CONSI DERED NEGATIVE. >400 MG/DL MAY BE FATAL.RESULTS F OR MEDICAL USE ONL Y. NOT TO BE USED FOR FOR ENSIC PURPOSES. BASIC METABOLIC [id number] 14:17:00 Test Item Value Reference Range Interpretation [...] 1 NORMAL = LIPINDEX) Index/DL HEPATIC FUNCTION [id number] 14:17:00 Test Item Value Reference Range Interpretation [...] TOTAL (test code Unit/L 45-117 = ALKP) [id number] 14:17:00 Test Item Value Reference Range Interpretation Comments ALCOHOL (test code = ALC) MG/DL 0-10 CBC W/O [id number] 14:04:00 Test Item Value Reference Range Interpretation [...] = 9.4 fL 7.6-10.4 N MPV) RPR Cfuprtxqjvm9549-11-86 14:01:19 Test Item Value Reference Range Interpretation [...] = 12-17-2019 N Expiration Dt) Thyroid Stimulating [id number] 09:09:16 Test Item Value Reference Range Interpretation Comments TSH (test code = TSH) 0.418 mIU/mL 0.270-4.200 Lipid [id number] 08:59:32 Test Item Value Reference Range Interpretation Comments Cholesterol Total 131 mg/dL 0-200 RISK OF HE ART (test code = DISEASEPublishe d by Cholesterol Total) [place] [employer] Giovanna lyte Optimal Borderl ine [...] LDL/HDL Ratio=L DL Calc/HDL Chol Thyroid Stimulating [id number] 10:03:42 Test Item Value Reference Range Interpretation Comments TSH (test code = TSH) 1.560 mIU/mL 0.270-4.200 Lipid [id number] 09:52:10 Test Item Value Reference Range Interpretation Comments Cholesterol Total 210 mg/dL 0-200 H RISK OF HE ART (test code = DISEASEPublishe d by Cholesterol Total) [place] [employer] Giovanna lyte Optimal Borderl ine [...] is LDL/HDL Ratio=L DL Calc/HDL Chol RPR Trugyvbtpdn0790-02-79 11:37:43 Test Item Value Reference Range Interpretation Comments RPR Qual (test code = RPR Qual) Non-Reactive Non-Reactive Reactive Control (test code = Reactive Reactive Control) Weak Reactive Control (test Weak Reactive code = Weak Reactive Control) Non-Reactive Control (test code Non-Reactive = Non-Reactive Control) Lot # (test code = Lot #) [id number] N Expiration Dt (test code = 12-17-19 N Expiration Dt) Urinalysis Oeegvhubzum9840-58-73 23:07:47 Test Item Value Reference Range Interpretation Comments UA WBC (test code = UA WBC) None Seen 0-5 UA RBC (test code = UA RBC) None Seen 0-5 UA Bacteria (test code = UA None Seen Bacteria) UA Squam Epithelial (test code = UA 0-5 Squam Epithelial) Comprehensive Metabolic [id number] 22:29:50 Test Item Value Reference Range Interpretation [...] A/G 1.7 ratio N Ratio) Comprehensive Metabolic [id number] 22:29:50 Test Item Value Reference Range Interpretation [...] the National Kidney Foundation, http://nkdep.ni h.gov Alcohol Evcom2492-03-95 22:29:50 Test Item Value Reference Range Interpretation Comments Ethanol Level (test 0.06 g/dL 0.00-0.01 H Intoxica isai 0.080 g/dL code = Ethanol or more Level) Ethanol Inst (test 58 N code = Ethanol Inst) Comprehensive Metabolic [id number] 22:29:50 Test Item Value Reference Range Interpretation [...] ag e have not been validated by [facility] MDRD study and should be interpreted [...] ag e have not been validated by [facility] MDRD study and should be interpreted wit h caution. eGFR R esult Interpretation: eGFR > or = 60 is in the Normal RangeeGF R < 60 may mean kid tran diseaseeGFR < 1 5 may mean kidney failure Rang es recommended by the National Kidney Foundation, http://nkdep.ni h.gov Complete Blood Count with Dvkunmaobroq8028-74-10 22:14:44 Test Item Value Reference Range Interpretation [...] code = IPF) 0 % N Automated Vhnvlkbfvdla8565-41-92 22:14:44 Test Item Value Reference Range Interpretation Comments Neutro Auto (test code = Neutro 72.2 % 36.0-70.0 H Auto) Lymph Auto (test code = Lymph Auto) 19.6 % 12.0-44.0 [place] Auto (test code = [place] Auto) 6.9 % 0.0-11.0 Eos, Auto (test code = Eos, Auto) 0.0 % 0.0-7.0 Basophil Auto (test code = Basophil 0.4 % 0.0-2.0 Auto) Neutro Absolute (test code = Neutro 6.1 x10 1.6-7.4 Absolute) Lymph Absolute (test code = Lymph 1.67 x10 .50-4.60 Absolute) [place] Absolute (test code = [place] .59 x10 .00-1.20 Absolute) Eos Absolute (test code = Eos 0.00 x10 0.00-0.74 Absolute) Baso Absolute (test code = Baso 0.03 x10 0.00-0.21 Absolute) IG [id number] 22:14:44 Test Item Value Reference Range Interpretation Comments IG (test code = IG) 0.9 % 0.0-5.0 IG Abs (test code = IG Abs) 0 x10 N Urine Drug [id number] 22:14:38 Test Item Value Reference Range Interpretation [...] if desired . Urinalysis with Microscopic if hdcovtjgi4301-73-99 21:53:48 Test Item Value Reference Range Interpretation [...] Ind?) rule GL_SJM_UA_MICRO _IN D Urine Drug Ozhzju9573-64-90 09:31:28 Test Item Value Reference Range Interpretation [...] matory test if desired . Comprehensive Metabolic [id number] 09:17:22 Test Item Value Reference Range Interpretation [...] A/G 2.1 ratio N Ratio) Comprehensive Metabolic [id number] 09:17:22 Test Item Value Reference Range Interpretation [...] National Kidney Foundation, http://nkdep.ni h.gov Comprehensive Metabolic Ilquc0473-71-95 09:17:22 Test Item Value Reference Range Interpretation [...] ag e have not been validated by [facility] MDRD study and should be interpreted [...] ag e have not been validated by [facility] MDRD study and should be interpreted wit h caution. eGFR R esult Interpretation: eGFR > or = 60 is in the Normal RangeeGF R < 60 may mean kid tran diseaseeGFR < 1 5 may mean kidney failure Rang es recommended by the National Kidney Foundation, http://nkdep.ni h.gov IG Tfbns0091-36-17 09:08:10 Test Item Value Reference Range Interpretation Comments IG (test code = IG) 0.4 % 0.0-5.0 IG Abs (test code = IG Abs) 0 x10 N Complete Blood Count with Ifktgecpmhzg1443-50-33 09:08:09 Test Item Value Reference Range Interpretation [...] code = IPF) 0 % N Automated Etocafypmwbh0264-62-87 09:08:09 Test Item Value Reference Range Interpretation Comments Neutro Auto (test code = Neutro 73.6 % 36.0-70.0 H Auto) Lymph Auto (test code = Lymph Auto) 17.3 % 12.0-44.0 [place] Auto (test code = [place] Auto) 8.3 % 0.0-11.0 Eos, Auto (test code = Eos, Auto) 0.1 % 0.0-7.0 Basophil Auto (test code = Basophil 0.3 % 0.0-2.0 Auto) Neutro Absolute (test code = Neutro 5.1 x10 1.6-7.4 Absolute) Lymph Absolute (test code = Lymph 1.19 x10 .50-4.60 Absolute) [place] Absolute (test code = [place] .57 x10 .00-1.20 Absolute) Eos Absolute (test code = Eos 0.01 x10 0.00-0.74 Absolute) Baso Absolute (test code = Baso 0.02 x10 0.00-0.21 Absolute) ADC / LCC - DRUG SCREEN [id number] 02:56:00 Test Item Value Reference Range Interpretation Comments BENZO U (test code = Negative Negative 5431064523) EARL U (test code = Negative Negative 5073651971) AMPHET (test code = Presumptive Positive Negative A 7926785803) THC (test code = Negative Negative 7896144928) METHADONE (test code = Negative Negative 1121280836) Meth U (test code = Presumptive Positive Negative A 8019484912) OPIATES (test code = Negative Negative 6375319030) Cocaine Metabolite (test Negative Negative code = 2086894969) PROPOXY (test code = Negative Negative 2594472870) Tric U (test code = Negative Negative 8360176276) PCP (test code = Negative Negative 4111271830) OXYCOD (test code = Negative Negative 4633612131) GEORGIE (test code = GEORGIE) Urine Drug [...] testing). Lab Interpretation (test Abnormal code = 76951-9) [facility]et[facility] 02[facility]00 Test Item Value Reference Range Interpretation Comments ACETAMINOP (test code = <10.0 10-30 L 6747835692) GEORGIE (test code = GEORGIE) Toxic: Greater than 200 ug/mL @ 4 hour post ingestion or greater than 50 ug/mL @ 12 hour post ingestion Lab Interpretation (test Abnormal code = 35328-6) [facility] HospitalSalicylate2019 02:40:00 Test Item Value Reference Range Interpretation Comments SALICYLATE (test code <10 mg/L = 6120706855) GEORGIE (test code = GEORGIE) Therapeutic Range:? Analgesic and Antipyretic Use? 20-100 mg/L? Anti-Inflammatory Use? 100-250 mg/LToxic Range:? Greater than 300 mg/L [facility] HospitalEthanol (ETOH) [id number] 02:40:00 Test Item Value Reference Range Interpretation Comments ALCOHOL (test code = <10 mg/dL 9674571586) GEORGIE (test code = GEORGIE) <10 Eprchndy34-591 Toxic>100 Depression of TINNER AUTOMATIC>400 Fatalities Reported [facility] HospitalBasic Metabolic Panel (NA, K, CL, CO2, Glucose, BUN, Creatinine, CA)2018-11-05 02:35:00 Test Item Value Reference Range Interpretation Comments NA (test code = 142 mmol/L 135-145 5816566137) K (test code = 3.5 mmol/L 3.5-5 3934937465) CL (test code = 107 mmol/L 98-108 7888998109) CO2 TOTAL (test code = 25 mmol/L 23-31 4062711212) AGAP (test code = 2-16 4831505939) BUN (test code = 12 mg/dL 7-23 4695242607) GLUCOSE (test code = 90 mg/dL 70-110 5709567231) CREATININE (test code 0.77 mg/dL 0.6-1.25 = 7462086610) CALCIUM (test code = 9.3 mg/dL 8.6-10.6 7364096542) eGFR Calculation mL/min/1.73m2 (Non-) (test code = 0047568340) eGFR Calculation mL/min/1.73m2 () (test code = 3285510553) GEORGIE (test code = GEORGIE) Association of [...] or urine or abnormalities in imaging tests). [facility] HospitalHepatic Function Panel (ALB, T.PRO, BILI T, BU/BC, ALT, AST, ALK PHOS)2018-11-05 02:35:00 Test Item Value Reference Range Interpretation Comments TOTAL BILI (test code = 4741992329) 1.0 mg/dL 0.1-1.1 BILI UNCON (test code = 1412513842) 0.8 mg/dL 0.1-1.1 BILI CONJ (test code = 3234853320) 0.0 mg/dL 0-0.3 T PROTEIN (test code = 3618845102) 7.0 g/dL 6.3-8.2 ALBUMIN (test code = 5549506005) 4.4 g/dL 3.5-5 ALK PHOS (test code = 6485167877) 71 U/L 34-122 ALT(SGPT) (test code = 8539963242) 39 U/L 9-51 AST(SGOT) (test code = 5206885798) 40 U/L 13-40 Lab Interpretation (test code = Normal 54197-6) [facility] HospitalCB WITH [id number] 02:10:00 Test Item Value Reference Range Interpretation Comments WBC (test code = See_Comment [Automated 7622-2) message] The sy stem which generated this result transmitted reference range : 4.20 - 10.70 10*3/?L. The reference range was not used to interpret this result as normal/abnormal . RBC (test code = See_Comment [Automated 584-8) message] The sy stem which generated this [...] RDW-SD (test code = 46.3 fL 38.5-51.6 17571-5) RDW-CV (test code = 13.1 % 12.1-15.4 788-0) PLT (test code = See_Comment [Automated 777-3) message] The sy stem which generated this result transmitted reference range : 150 - 328 10*3/ ?L. The reference r johan was not used to interpret this result as normal/abnormal . MPV (test code = 9.9 fL 9.8-13 00213-7) NRBC/100 WBC (test See_Comment [Automat ed code = 7118431413) message] The system which generated this result transmitted reference range : 0.0 - 10.0 /100 WBCs. The refer ence range was not u sed to interpret th is result as normal/abnormal . NRBC x10^3 (test code <0.01 See_Comment [Auto mated = 4767823274) message] The s ystem which generated this result transmitted reference range : 10*3/?L. The reference range was not used to interpret this result as normal/abnormal . GRAN MAT (NEUT) % 50.8 % (test code = 770-8) IMM GRAN % (test code 0.60 % = 2860002182) LYMPH % (test code = 33.8 % 736-9) MONO % (test code = 14.4 % 5905-5) EOS % (test code = 0.0 % 713-8) BASO % (test code = 0.4 % 706-2) GRAN MAT x10^3(ANC) 2.62 10*3/uL 1.99-6.95 (test code = 0533224053) IMM GRAN x10^3 (test 0.03 10*3/uL 0-0.06 code = 3861631302) LYMPH x10^3 (test code 1.74 10*3/uL 1.09-3.23 = 731-0) MONO x10^3 (test code 0.74 10*3/uL 0.36-1.02 = 742-7) EOS x10^3 (test code = <0.03 0.06-0.53 L 711-2) BASO x10^3 (test code <0.03 0.01-0.09 = 704-7) Lab Interpretation Abnormal (test code = 82600-4) [facility] HospitalCom[facility] Metabolic Ftpjp9892-41-18 13:14:00 Test Item Value Reference Range Interpretation [...] been validated by e MDRD study and emiul d be interpretedwith caution.eGFR Re sult Interpretation: eGFR > or = 60 is in t he Normal RangeeGF R < 60 may mean kidney diseaseeGFR < 1 5 may mean kidney failureRange s recommended by the National Kidney Foundation,http ://nkd ep.nih.gov [id number] 13:09:00 Test Item Value Reference Range Interpretation [...] g/dL 0.00-0.01 N code = ETOHU) Urinalysis Ytvymodp1777-17-10 12:59:00 Test Item Value Reference Range Interpretation Comments Color (test code = Yellow Yellow,Straw,Pl N COLOR) yellow Clarity (test code = Clear Clear N CLAR) Specific [place] (test 1.027 1.001-1.035 N code = SPGR) [...] code = Few /HPF BACT) CBC with [id number] 12:42:00 Test Item Value Reference Range Interpretation [...] code = ALYMPH) 2.3 K/cumm 0.5-4.6 N [place] Abs (test code = AMONO) 0.6 K/cumm 0.0-1.2 N Eos Abs (test code = AEOS) 0.09 K/cumm 0.00-0.74 N Baso Abs (test code = ABASO) 0.0 K/cumm 0.00-0.21 N Hepatic Function [id number] 18:55:00 Test Item Value Reference Range Interpretation [...] = ALT) 47 U/L 1-41 H HIV [id number] 12:45:00 Test Item Value Reference Range Interpretation Comments HIV 1/2 Antibody Non-Reactive Non-Reactive N HIV1/2 Anti body screen (test code = result indicate s the HIV1/2AB) absence of HIV1 and GRJ6qcmhxgviv.H owever, A Non-Reactive screen result does not [...] rule o ut exposure or infection.If ac [place] HIV-1 is suspec isai, HIV RNA Quantit ative is recommended. RPR, [id number] 21:30:00 Test Item Value Reference Range Interpretation Comments RPR (test code = RPR) Non-Reactive Non-Reactive N Thyroid Stimulating Hormone (TSH)2017-03-17 09:55:00 Test Item Value Reference Range Interpretation Comments TSH (test code = TSH) 0.94 mIU/mL 0.270-4.200 N Lipid [id number] 09:53:00 Test Item Value Reference Range Interpretation Comments Cholesterol (test 124 mg/dL 0-200 N code = CHOL) Triglycerides (test 61 mg/dL 9-200 N code = TRIG) HDL (test code = 47 mg/dL 40-60 N HDL) Chol/HDL (test code 2.6 Ratio 0.0-5.0 N = CHOLPHDL) LDL, Calculated 65 0-130 N (NOTE)RISK O F HEART (test code = LDLC) DISEASEPu blished by [place] Heart AssociationAnal yte Optim al Boderline Increased RiskC HOL <200 200-239 >240TRI G <150 150-199 >200HDL Male: >60 <40HDL Female: >60 <50 LDL < 100 130-15 9 >160 LDL NEAR OPTIMAL IS 100- 129 VLDL (test code = 12 mg/dL 5-40 N VLDL) LDL/HDL (test code = 1 LDLPHDL) Urinalysis [id number] 15:09:00 Test Item Value Reference Range Interpretation Comments Color (test code = Yellow Yellow,Straw,Pl N COLOR) yellow Clarity (test code = Clear Clear N CLAR) Specific [place] (test 1.028 1.001-1.035 N code = SPGR) [...] = 0-1 Granular /HPF CASTS) Comprehensive Metabolic [id number] 14:24:00 Test Item Value Reference Range Interpretation [...] by the National Kid[employer] Foundation,http ://nkd ep.nih.gov [id number] 14:20:00 Test Item Value Reference Range Interpretation [...] 0.00-0.01 N code = ETOHU) CBC with [id number] 14:08:00 Test Item Value Reference Range Interpretation [...] code = ALYMPH) 2.2 K/cumm 0.5-4.6 N [place] Abs (test code = AMONO) 0.9 K/cumm 0.0-1.2 N Eos Abs (test code = AEOS) 0.06 K/cumm 0.00-0.74 N Baso Abs (test code = ABASO) 0.0 K/cumm 0.00-0.21 N
[2021-07-31 22:45] LABS: Absolute Lymphocytes (CBC) 2.1 K/uL (0.7-4.9); Hematocrit 47.5 % (39.6-49.0); Lymphocytes % 34.2 % (15.3-44.8); MPV 7.6 fL (7.6-11.3); Protime INR 0.86; RBC Red Blood Cell Count 4.89 M/uL (4.33-5.43)
[2021-07-31 23:05] LABS: ALT/SGPT 80 U/L (12-78); AST/SGOT 34 U/L (15-37); Albumin 3.7 g/dL (3.4-5.0); Alkaline Phosphatase 92 U/L (45-117); BUN Blood Urea Nitrogen 12 mg/dL (7-18); Bicarbonate 24 mmol/L (21-32); Bilirubin Direct < 0.1 mg/dL (0-0.2); Bilirubin Total 0.4 mg/dL (0.2-1.0); Glomerular Filtration Rate 130 ml/min (=/>90); Glucose Level 94 mg/dL (74-106); Magnesium 2.5 mg/dL (1.8-2.4); NT PRO-BNP < 5 pg/mL (<125); Potassium 4.2 mmol/L (3.5-5.1); Protein, Total 7.4 g/dL (6.4-8.2); Sodium Level 137 mmol/L (136-145); Troponin High Sensitivity 3.5 pg/mL (<58.9)
[2021-07-31 23:37] LABS: Urine Blood Negative (Negative); Urine Glucose Negative (Negative); Urine Protein Negative (Negative); Urine Specific Gravity 1.015 (1.005-1.030)
[2021-08-01 00:15] LABS: Barbiturates NEGATIVE (NEGATIVE); Benzodiazepines NEGATIVE (NEGATIVE); Cocaine NEGATIVE (NEGATIVE); METHAMPHETAM POSITIVE (NEGATIVE); Methadone NEGATIVE (NEGATIVE); Opiates NEGATIVE (NEGATIVE); Phencyclidine NEGATIVE (NEGATIVE); THC Cannibis NEGATIVE (NEGATIVE)
[2021-08-01 00:25] LABS: Urine Urothelial Cells <5 /HPF (NONE SEEN)
[2021-08-01 00:26] LABS: Urine Bacteria <20 /HPF (NONE SEEN); Urine RBC <5 /HPF (NONE SEEN)
[2021-08-01] MEDS ORDERED: HYDROCODONE/APAP 7.5/325 MG TAB ONE (01:52)
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
[2021-08-01 03:49] VITALS: TEMP 97.2
[2021-08-01 03:52] VITALS: O2SAT 99
[2021-08-01 03:56] VITALS: BP 128/80
--- NOTE | 2021-08-01 08:43 | RAD REPORT ---
EXAM DESCRIPTION: RAD - Chest Single View - 07/31/2021 10:25 pm CLINICAL HISTORY: CHEST PAIN Chest pain. COMPARISON: Chest Single View dated 07/28/2021; Chest Single View dated 06/22/2021; Chest Single View d ated 06/12/2021; Chest Single View dated 06/10/2021 FINDINGS: Portable technique limits examination quality. The lungs are grossly clear. The heart is normal in size. No displaced fractures. IMPRESSION: No acute intrathoracic process suspected.
--- NOTE | 2021-08-01 15:28 | EKG ---
Test Date: 2021-07-31 Test Time: 22:35:24 Zinc Plater: FANNY MEASUREMENT RESULTS: Intervals: Rate: 80 OK: 158 QRSD: 82 QT: 346 QTc: 399 [place]: P: 27 OK: 158 QRS: 68 T: 56 INTERPRETIVE STATEMENTS: Normal sinus rhythm Normal ECG Compared to ECG 07/28/2021 15:10:08 No significant changes Electronically Signed On 08-01-21 15:27:03 CDT by Reza Salas
== END 2021-08-01 03:18 | disposition home or self-care (01) ==
LOC: ER 21:46
DX: R07.9 Chest pain, unspecified (principal); T43.625A Adverse effect of amphetamines, initial encounter; F20.9 Schizophrenia, unspecified; Z88.5 Allergy status to narcotic agent; Z88.8 Allergy status to other drugs, medicaments and biological substances
CPT/HCPCS: 36415; 71045; 80048; 80076; 80307; 81003; 81015; 83735; 83880; 84484; 85025; 85610; 93005; 99284

== ENCOUNTER 2021-08-06 16:23 | Emergency (ER) | payer OTHER ==
--- OUTSIDE RECORDS SUMMARY | 2021-08-06 16:31 | XMS REPORT | Continuity of Care Document ---
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 (0 to 5 Years) and At-Risk Patients (6 to 64 Years) (1 - PCV) [code = Pneumococcal Vaccine: Pediatrics (0 to 5 Years) and At-Risk Patients (6 to 64 Years) (1 - PCV)] Future Scheduled 2021-07-02 Hepatitis C screening [facility] Test 10:04:06 (procedure) [code = [id number]] Future Scheduled 2021-07-02 COVID-19 VACCINE (3 - [facility] Test 10:04:06 Booster) [code = COVID-19 VACCINE (3 - Booster)] Future Scheduled 2021-07-02 INFLUENZA VACCINE Method [facility] Test 10:04:06 [code = INFLUENZA VACCINE] Future Scheduled 2021-05-23 Hepatitis C screening [facility] Test 21:56:30 (procedure) [code = [id number]] Future Scheduled 2021-05-23 COVID-19 VACCINE (3 - [facility] Test 21:56:30 Booster) [code = COVID-19 VACCINE (3 - Booster)] Future Scheduled 2021-05-23 INFLUENZA VACCINE Method [facility] Hospital Test 21:56:30 [code = INFLUENZA VACCINE] Future Scheduled 2021-05-23 Hepatitis C screening [facility] Test 21:56:30 (procedure) [code = [id number]] Future Scheduled 2021-05-23 COVID-19 VACCINE (3 - [facility] Test 21:56:30 Booster) [code = COVID-19 VACCINE (3 - Booster)] Future Scheduled 2021-05-23 INFLUENZA VACCINE Method [facility] Hospital Test 21:56:30 [code = INFLUENZA VACCINE] Future Scheduled 2021-05-23 Hepatitis C screening [facility] Test 21:56:30 (procedure) [code = 308831915] Future Scheduled 2021-05-23 COVID-19 VACCINE (3 - [facility] Test 21:56:30 Booster) [code = COVID-19 VACCINE (3 - Booster)] Future Scheduled 2021-05-23 INFLUENZA VACCINE Method [facility] Test 21:56:30 [code = INFLUENZA VACCINE] Future Scheduled 2021-01-31 COVID-19 VACCINE (3 - [facility] Test 17:19:18 Booster) [code = COVID-19 VACCINE (3 - Booster)] Future Scheduled 2021-01-31 Hepatitis C screening [facility] Test 17:19:18 (procedure) [code = 066586689] Future Scheduled 2021-01-31 INFLUENZA VACCINE Method [facility] Test 17:19:18 [code = INFLUENZA VACCINE] Future Scheduled 2021-01-31 COVID-19 VACCINE (3 - [facility] Test 17:19:18 Booster) [code = COVID-19 VACCINE (3 - Booster)] Future Scheduled 2021-01-31 Hepatitis C screening [facility] Hospital Test 17:19:18 (procedure) [code = 117449858] Future Scheduled 2021-01-31 INFLUENZA VACCINE Method is Hospital Test 17:19:18 [code = INFLUENZA VACCINE] Encounters Start End Encounter Admission Attending Care Care Encounter Source Date/Time Date/Time Type Type Clinicians Facility Department ID 2021-06-23 Outpatient [facility] [id number] [place] 01:45:03 [id number] [facility] 2021-03-14 Outpatient [id number] ENCPL CARLENE ENCPL 13:33:41 [facility] 2021-03-14 Outpatient [id number] ENCPL REF [id number] ENCPL 13:33:01 2021-02-11 Inpatient ATASSI, [facility] [id number] H arris 00:00:00 [facility] 2021-01-24 Inpatient VIKASH, [facility] [id number] [place] 07:00:09 [facility] 2021-01-22 Inpatient [facility] [id number] H arr[place] 00:00:00 [facility] 2021-01-21 Inpatient [facility] [id number] H [place] 00:00:00 [facility] 2021-01-20 Inpatient [facility] [id number] H [place] 00:00:00 [facility] 2021-01-18 Inpatient [facility] [id number] H [place] 00:00:00 [facility] 2021-01-17 Inpatient [facility] [id number] H [place] 00:00:00 [facility] 2021-01-16 Inpatient [facility] [id number] H [place] 00:00:00 [facility] 2021-01-15 [facility] [id number] [place] 00:[facility]:00 [facility] 2021-01-13 Inpatient [facility] [id number] [place] 00:00:00 [facility] 2021-01-12 Inpatient [facility] [id number] H [place] 00:00:00 [facility] 2021-01-11 Inpatient [facility] [id number] H [place] 00:00:00 [facility] 2021-01-10 Inpatient [facility] [id number] H [place] 00:00:00 [facility] 2021-01-09 Inpatient [facility] [id number] H [place] 00:00:00 [facility] 2021-01-08 [facility] [id number] [place] 00:00:00 [facility] 2021-01-06 Inpatient [facility] [id number] H [place] 00:00:00 [facility] 2021-01-05 [facility] [id number] [place] 00:00:00 [facility] 2021-01-04 [facility] [id number] [place] 00:00:00 [facility] 2021-01-03 [facility] [id number] [place] 00:00:00 [facility] 2021-01-02 Inpatient [facility] [id number] H [place] 00:00:00 [facility] 2020-12-30 Inpatient 1 MAREK, [facility] [id number] [place] 22:32:00 BUSHRA Reid 2020-12-30 [facility] [id number] [place] 00:00:00 [facility] 2020-12-30 [facility] [id number] [place] 00:00:00 [facility] 2021-08-05 2021-08-05 Outpatient GC_BAHC_Tod PRIV PRIV [id number] [facility] 11:07:00 11:07:00 d_J [id number] [facility] 2021-08-02 2021-08-02 Outpatient GC_BAHC_Tod PRIV PRIV [id number] [facility] 09:06:00 09:06:00 d_J [id number] [facility] 2021-07-30 2021-07-30 Outpatient GC_BAHC_Tod PRIV PRIV [id number] [facility] 03:48:00 03:48:00 d_J [id number] Medica [facility] 2021-07-26 2021-07-26 Outpatient GC_BAHC_Tod PRIV PRIV [id number] [facility] 08:05:00 08:05:00 d_J [id number] [facility] 2021-07-26 2021-07-26 Outpatient Michael, PRIV PRIV [id number] a-f 00:00:00 00:00:00 Marina [id number] 2021-07-20 2021-07-20 Outpatient GC_BAHC_Tod PRIV PRIV [id number] [facility] 10:41:00 10:41:00 d_J [id number] Medica l 2021-07-18 2021-07-18 Outpatient GC_BAHC_Tod PRIV PRIV [id number] [facility] 02:03:00 02:03:00 d_J [id number] Medica l 2021-07-18 2021-07-18 Outpatient Lilly, PRIV PRIV [id number] 00:00:00 00:00:00 Jonah Garcia [id number]-9 [id number] 2457-05-30 2021-07-15 Outpatient GC_BAHC_Tod PRIV PRIV [id number] [facility] 10:43:00 10:43:00 d_J [id number] Medica l 2021-07-11 2021-07-11 Outpatient GC_BAHC_Tod PRIV PRIV [id number] [facility] 01:44:00 01:44:00 d_J [id number] Medica l 2021-07-05 2021-07-05 Outpatient GC_BAHC_Tod PRIV PRIV [id number] [facility] 09:29:00 09:29:00 d_J [id number] Medica [facility] 2021-07-05 2021-07-05 Outpatient Michael, PRIV PRIV [id number] 00:00:00 00:00:00 Marina [id number]-11ec-9 [id number] 2021-07-02 2021-07-02 Outpatient GC_BAHC_Tod PRIV PRIV [id number] [facility] 10:48:00 10:48:00 d_J [id number] Medica l 2021-07-02 2021-07-02 Outpatient Michael, PRIV PRIV [id number] e-[id number] 00:00:00 00:00:00 Marina [id number]-1 [id number] 2021-06-30 2021-06-30 Outpatient GC_BAHC_Tod PRIV PRIV [id number] [facility] 06:52:00 06:52:00 d_J [id number] Medica l 2021-06-25 2021-06-25 Outpatient GC_BAHC_Tod PRIV PRIV [id number] [facility] 01:28:00 01:28:00 d_J [id number] Med[facility] 2021-06-25 2021-06-25 Outpatient Michael, PRIV PRIV [id number] c-d 00:00:00 00:00:00 Marina [id number] 2021-06-23 2021-06-23 Outpatient GC_BAHC_Tod PRIV PRIV [id number] [facility] 10:46:00 10:46:00 d_J [id number] Medica l 2021-06-18 2021-06-18 Outpatient GC_BAHC_Tod PRIV PRIV [id number] [facility] 01:40:00 01:40:00 d_J [id number] Medica l 2021-06-14 2021-06-14 Outpatient GC_BAHC_Tod PRIV PRIV [id number] [facility] 08:35:00 08:35:00 d_J [id number] Medica l 2021-06-14 2021-06-14 Outpatient Michael, PRIV PRIV [id number] 00:00:00 00:00:00 Marina [id number]-[id number] 9071-04-26 2021-06-11 Outpatient GC_BAHC_Tod PRIV PRIV [id number] [facility] 09:50:00 09:50:00 d_J [id number] Medica l 2021-06-11 2021-06-11 Outpatient Michael, PRIV PRIV [id number] 00:00:00 00:00:00 Marina [id number] 2021-06-06 2021-06-06 Outpatient GC_BAHC_Tod PRIV PRIV [id number] [facility] 01:01:00 01:01:00 d_J [id number] Medica l 2021-06-05 2021-06-05 Outpatient GC_BAHC_Tod PRIV PRIV [id number] [facility] 03:19:00 03:19:00 d_J [id number] Medica l 2021-06-04 2021-06-04 Outpatient GC_BAHC_Tod PRIV PRIV [id number] [facility] 01:42:00 01:42:00 d_J [id number] Medica l 2021-06-04 2021-06-04 Outpatient Michael, PRIV PRIV [id number]-c 00:00:00 00:00:00 Marina [id number]-11ec-b [id number] 2021-05-30 2021-05-30 Outpatient GC_BAHC_Tod PRIV PRIV [id number] [facility] 11:28:00 11:28:00 d_J [id number] Medica l 2021-05-30 2021-05-30 Outpatient Lilly, PRIV PRIV [id number]-c 00:00:00 00:00:00 Jonah Garcia [id number]-[id number] 2021-05-28 2021-05-28 Outpatient GC_BAHC_Tod PRIV PRIV [id number] [facility] 01:25:00 01:25:00 d_J [id number] Medica l 2021-05-28 2021-05-28 Outpatient Michael, PRIV PRIV [id number] [id number] 00:00:00 00:00:00 Marina [id number] 2021-05-27 2021-05-27 Outpatient GC_BAHC_Tod PRIV PRIV [id number] [facility] 03:48:00 03:48:00 bryan_Ivis [id number] Medica l 2021-05-24 2021-05-24 Outpatient GC_BAHC_Spa PRIV PRIV [id number] [facility] 04:32:00 04:32:00 Samuel [id number] Medica l 2021-05-07 2021-05-08 Outpatient X OBED [facility] [id number] [facility] 08:26:00 04:30:00 MARTIN pinto [facility] 2021-05-07 2021-05-08 Emergency Tono Roberto [facility] [id number]. [id number] [facility] 08:26:00 04:30:00 Martin Clay [place] 350.1.13.10 [facility] 4.2.7.2.686 [facility] [id number] 2021-03-28 2021-03-28 [facility] [id number] [place] 00:00:00 00:00:00 GALE maldonado 2021-03-20 2021-03-20 Outpatient PASCUAL MAHAN [facility] [id number] [place] 00:00:00 00:00:00 [facility] 2020-12-30 2021-02-28 [facility] [id number] [place] 22:32:00 18:41:00 BUSHRA Booker 2020-12-30 2021-02-28 [facility] [id number] [place] 22:32:00 18:41:00 BUSHRA Booker 2021-02-15 2021-02-15 Inpatient [facility] [id number] [place] 10:50:13 11:18:57 Health 2021-02-14 2021-02-14 Inpatient [facility] [id number] [place] 16:43:15 18:41:33 Health 2021-02-14 2021-02-14 Inpatient [facility] [id number] [place] 07:24:16 09:18:07 Health 2021-01-31 2021-01-31 Inpatient [facility] [id number] [place] 01:03:14 03:25:48 Health 2021-01-25 2021-01-25 Inpatient [facility] [id number] [place] 01:35:50 03:05:16 Health 2021-01-23 2021-01-23 Inpatient [facility] [id number] [place] 02:10:17 04:59:36 Health 2021-01-21 2021-01-21 Inpatient VIKASH, [facility] [id number] [place] 15:43:59 16:18:10 [facility] 2021-01-13 2021-01-13 Inpatient [facility] [id number] [place] 16:20:12 17:12:27 Health 2021-01-07 2021-01-07 Inpatient [facility] [id number] [place] 18:28:43 18:28:46 Health 2021-01-07 2021-01-07 Inpatient [facility] [id number] [place] 00:12:42 01:07:25 Health 2021-01-04 2021-01-04 Inpatient [facility] [id number] [place] 17:11:58 18:14:36 Health 2021-01-04 2021-01-04 Inpatient KARYN, [facility] [id number] [place] 13:40:49 15:55:44 [facility] 2021-01-03 2021-01-03 Inpatient [facility] [id number] [place] 17:58:59 17:59:03 Health 2021-01-01 2021-01-01 Inpatient [facility] [id number] [place] 16:44:03 16:44:07 Health 2021-01-01 2021-01-01 Inpatient CARTER, [facility] [id number] [place] 08:36:00 09:12:12 [facility] 2021-01-01 2021-01-01 Inpatient [facility] [id number] [place] 07:46:21 08:35:30 [facility] 2021-01-01 2021-01-01 Inpatient YULI, [facility] [id number] [place] 02:09:24 03:31:22 [facility] 2020-12-31 2020-12-31 Inpatient MAREK, [facility] [id number] [place] 05:17:16 06:34:53 BUSHRA [facility] 2020-12-31 2020-12-31 Inpatient [facility] [id number] [place] 01:50:33 06:34:15 Health 2020-12-31 2020-12-31 Inpatient [facility] [id number] [place] 03:50:31 04:54:13 Health 2020-12-31 2020-12-31 Inpatient [facility] [id number] [place] 01:43:22 04:38:47 [facility] 2020-12-30 2020-12-30 Emergency [facility] [id number] [place] 22:46:36 23:04:47 Health 2020-12-30 2020-12-30 Emergency [facility] [id number] [place] 22:46:20 23:04:03 [facility] 2020-12-30 2020-12-30 Emergency [facility] [id number] [place] 22:47:41 23:03:11 [facility] 2020-12-30 2020-12-30 Emergency LAKHWINDER, [facility] [id number] [place] 00:00:00 00:00:00 [facility] 2020-12-20 2020-12-20 Emergency EM [facility]ziel[facility] [id number] [facility] 06:26:00 16:34:[address] [place] [address] 2020-11-15 2020-11-16 Emergency Eusebia Ruelas 1.2.840 .1 [id number] Methodi 00:55:00 14:35:00 William Nunes [id number] Gerard Sorensenin 3.430.2.7 Hospita .3.120397 l .8 2020-11-14 2020-11-14 Emergency Manju 1.2.840.1 [id number] Methodi 15:47:00 16:03:00 William Langston [address]171.1.[address] 3.430.2.7 Hospit a .3.625728 l .8 2020-10-22 2020-10-24 [facility] Dennis Wynn 1.2.840.1 [id number] Methodi 16:52:00 16:26:00 Encounter Pepito Gordillo [id number] Jessica Awad 3.430.2.7 Hospita Lashaun Awad .3.346672 l .8 2020-10-16 2020-10-16 Emergency EM Crismon, [facility] MALIKA [id number] [facility] 00:20:00 08:00:00 Oklethaer 21 [facility] 2020-10-06 2020-10-06 Emergency EM Zia, HCAKW MALIKA [id number] [facility] 01:57:00 20:14:00 Jonny-Chin 71 [facility] 2020-09-05 2020-09-05 Emergency EM Kylah, Michael [id number] [facility] 11:17:00 18:22:00 21 [facility] 2020-09-03 2020-09-03 Emergency EM Pardo, [facility] MAL[facility]A [id number] [facility] 03:35:00 15:00:00 Farhad Maradiaga [facility] 2020-09-02 2020-09-03 Emergency EM [place], Michael [id number] [facility] 23:16:00 01:53:00 82 [facility] 2020-08-11 2020-08-12 Emergency EM El-Aswad, [facility] MAL[facility] [id number] [facility] 11:12:00 00:40:00 Naim 18 [facility] 2020-07-12 2020-07-12 Emergency [facility] [id number] [facility] 03:16:00 05:05:00 Michael Nichols 350.1.13.10 [place] 4.2.7.2.686 [facility] [id number] [address] 2020-07-12 2020-07-12 Emergency [facility] [id number] 03:16:00 05:05:00 Michael Nichols 350.1.13.[address] [place] [address] [place] [address] [id number] [facility] 2020-07-12 2020-07-12 Emergency X [facility] ERT [id number] [facility] 03:16:00 03:16:00 MICHAEL pinto [facility] 2019-08-29 2019-09-01 Inpatient [facility] MALIKA [id number] [facility] 22:17:00 04:16:38 62 [facility] 2019-06-22 2019-06-24 Inpatient [facility] MALIKA [id number] [facility] 13:23:00 06:39:56 74 [facility] 2019-02-21 2019-02-21 Outpatient [facility] [id number] [place] 00:00:00 00:00:00 [facility] 2019-02-19 2019-02-19 Emergency [facility] TAME[facility] [id number] 07:23:00 07:23:00 [facility] 2019-02-01 2019-02-01 Outpatient [facility] [id number] [place] 22:11:49 22:11:49 [facility] 2018-11-04 2018-11-05 [facility] [id number] [facility] 20:38:48 05:13:00 Brown Nichols 350.1.13.10 [facility] 4.2.7.2.686 [facility] [id number] [address] 2018-11-04 2018-11-05 Emergency [facility] [id number] 20:38:48 05:13:00 Brown Nichols 350.1.13.[address] [place] [address] [place] [address] [id number] [facility] 2018-10-18 2018-10-18 Emergency [facility] [id number] [place] 06:08:40 06:08:40 [facility] 2017-04-02 2017-04-02 Outpatient [facility] [id number] [place] 00:00:00 00:00:00 [facility] 2017-03-29 2017-03-29 Emergency [facility] [id number] [place] 00:00:48 00:00:48 [facility] 2017-03-22 2017-03-22 Emergency [facility] [id number] 11:46:00 11:46:00 [facility] 2017-03-16 2017-03-20 Inpatient [facility] [id number] 20:46:00 13:41:00 Jonathon DIOP M.D. [facility] 2017-01-26 2017-01-26 Outpatient [facility] [id number] [facility] 00:00:00 00:00:00 Results Test Description Test Time Test Comments Results Result Comments Source COMPREHENSIVE METABOLIC PANEL 2021-08-02 04:00:00 Test Item Value Reference Range Interpretation Comme nts SODIUM (test code = NA) 137 mmol/L 135-145 N POTASSIUM (test code = K) 3.5 mmol/L 3.6-5.0 L CHLORIDE (test code = CL) 103 mmol/L 101-111 N CARBON DIOXIDE (test code = 26 mmol/L 21-31 N CO2) GLUCOSE (test code = GLU) 63 mg/dl 70-100 L BLOOD UREA NITROGEN (test 11 mg/dl 6-20 N code = BUN) GLOMERULAR FILTRATION RATE >=60 max estimate >60 The estimated glomerular (test code = GFR) filtration rate is computed usingpatient ra ce, age (>18), sex, and serum creatinine. If anyof the needed data rabia ments are missing the Lab oratory cannot compute an estimation of the glomerul ar filtration rate. CREATININE (test code = 0.52 mg/dL 0.64-1.27 L CREAT) TOTAL PROTEIN (test code = 5.9 g/dL 6.7-8.2 L PROT) ALBUMIN (test code = ALB) 3.6 g/dL 3.2-5.5 N CALCIUM (test code = CA) 9.1 mg/dL 8.5-10.5 N BILIRUBIN TOTAL (test code 0.80 mg/dL 0.2-1.3 N = BILT) SGOT/AST (test code = AST) 32 U/L 10-42 N SGPT/ALT (test code = ALT) 55 U/L 10-60 N ALKALINE PHOSPHATASE (test 70 U/L 42-121 N code = ALKP) CBC W/AUTO [id number] 03:12:00 Test Item Value Reference Range Interpretation Comments WHITE BLOOD CELL (test code = 5.4 x10 3/uL 3.2-11.5 N WBC) RED BLOOD CELL (test code = 4.61 x10(6)/m 4.20-5.70 N RBC) HEMOGLOBIN (test code = HGB) 15.2 g/dL 12.9-17.3 N HEMATOCRIT (test code = HCT) 44.9 % 38.7-51.0 N MEAN CELL VOLUME (test code = 97 fL 80-100 N MCV) MEAN CELL HGB (test code = MCH) 33.0 pg 26.7-33.3 N MEAN CELL HGB CONCENTRATION 33.9 g/dL 30.0-34.0 N (test code = MCHC) RED CELL DISTRIBUTION WIDTH 13.8 % 11.3-14.5 N (test code = RDW) PLATELET COUNT (test code = 192 x10 3/uL 130-408 N PLT) MEAN PLATELET VOLUME (test code 10.8 fL 8.6-12.6 N = MPV) NEUTROPHIL % (test code = NT%) 47.2 % 40.0-70.0 N IMMATURE GRANULOCYTE % (test 2.0 % 0.0-2.0 N code = IG%) LYMPHOCYTE % (test code = LY%) 39.0 % 20-40 N MONOCYTE % (test code = MO%) 10.2 % 1-10 H EOSINOPHIL % (test code = EO%) 0.9 % 0.0-5.0 N BASOPHIL % (test code = BA%) 0.7 % 0.0-1.0 N NUCLEATED RBC % (test code = 0.0 % 0.0-0.9 N NRBC%) NEUTROPHIL # (test code = NT#) 2.5 x10 3/uL 1.6-7.2 N LYMPHOCYTE # (test code = LY#) 2.10 x10 3/uL 1.1-2.7 N MONOCYTE # (test code = MO#) 0.6 x10 3/uL 0.3-0.8 N EOSINOPHIL # (test code = EO#) 0.1 x10 3/uL 0.0-0.5 N BASOPHIL # (test code = BA#) 0.0 x10 3/uL 0.0-0.1 N TROPONIN [id number] 04:00:37 Test Item Value Reference Interpretation Comments Range TROPONIN I (test 0.000 ng/mL See_Comment [Automated code = 6059815539) message] The system which generated this result transmitted reference range : <=0.034. The reference range was not used to interpret this result as normal/abnormal . GEORGIE (test code = Reference (Normal) GEORGIE) Range (defined by the 99th percentile reference [...] biotin. Lab Interpretation Normal (test code = 79237-1) [facility]ED[facility] [id number] 00:46:10 Test Item Value Reference Range Interpretation Comments ESR (test code = See_Comment H [Automated message] [id number]) The system [employer] generated this result transmitted ref erence range: 0 - 10 m m/HR. The reference r johan was not used to interpret this result as normal/abnor mal. Lab Interpretation (test Abnormal code = 07377-7) [facility] HoustonGLYCOSYL[facility]EMOGLOBIN (A1C)2021-05-07 20:23:40 Test Item Value Reference Range Interpretation Comments HGB A1C (test code = 5.3 % 4.0-5.7 4548-4) GEORGIE (test code = GEORGIE) Reference RangesNormal: <5.7%Prediabetes: 5.7 - 6.4%Diabetes: > 6.5% Lab Interpretation (test Normal code = 00257-4) [facility] METABOLIC PANEL (39347)2021-05-07 16:11:59 Test Item Value Reference Range Interpretation Comments NA (test code = 139 mmol/L 135-145 4972869085) K (test code = 3.9 mmol/L 3.5-5.0 2913282576) CL (test code = 101 mmol/L 98-108 8870487883) CO2 TOTAL (test code = 23 mmol/L 23-31 6722623549) AGAP (test code = 2-16 2808248155) BUN (test code = 13 mg/dL 7-23 0267088748) GLUCOSE (test code = 92 mg/dL 70-110 9241251539) CREATININE (test code = 0.40 mg/dL 0.60-1.25 L 8110036024) TOTAL BILI (test code = 1.6 mg/dL 0.1-1.1 H 5547257923) CALCIUM (test code = 9.6 mg/dL 8.6-10.6 3791809821) T PROTEIN (test code = 7.7 g/dL 6.3-8.2 6446532044) ALBUMIN (test code = 4.6 g/dL 3.5-5.0 2651703763) ALK PHOS (test code = 91 U/L 34-122 6133570563) ALTv (test code = 24 U/L 5-50 1742-6) AST(SGOT) (test code = 31 U/L 13-40 0941110085) eGFR (test code = mL/min/1.73m2 1705976073) GEORGIE (test code = GEORGIE) Association of [...] tests). Lab Interpretation Abnormal (test code = 23562-2) [facility] HoustonACTIV[facility] PARTIAL THRMPLAS [id number] 15:52:36 Test Item Value Reference Range Interpretation Comments APTT Patient (test See_Comment [Automat ed code = 3173-2) message] The system which generated this result transmitted reference range : 23 - 38 Seconds . The reference range was not used to interpr et this result as normal/abnormal . GEORGIE (test code = GEORGIE) The [facility] patient population mean normal value for aPTT is 30 seconds. Lab Interpretation Normal (test code = 12592-6) [facility] HoustonPROTHROMBIN TIME / [id number] 15:50:30 Test Item Value Reference Range Interpretation [...] tions. Lab Interpretation (test Normal code = 00782-0) [facility] HoustonCBC WITH [id number] 15:42:54 Test Item Value Reference Range Interpretation Comments WBC (test code = See_Comment [Automated 0390-2) message] The sy stem which generated this result transmitted reference range : 4.20 - 10.70 10*3/?L. The reference range was not used to interpret this result as normal/abnormal . RBC (test code = See_Comment [Automated 209-8) message] The sy stem which [...] RDW-SD (test code = 44.1 fL 38.5-51.6 63251-7) RDW-CV (test code = 13.3 % 12.1-15.4 788-0) PLT (test code = See_Comment [Automated 777-3) message] The sy stem which generated this result transmitted reference range : 150 - 328 10*3/ ?L. The reference r johan was not used to interpret this result as normal/abnormal . MPV (test code = 9.7 fL 9.8-13.0 L 70831-1) NRBC/100 WBC (test See_Comment [Automat ed code = 6759146196) message] The system which generated this result transmitted reference range : 0.0 - 10.0 /100 WBCs. The refer ence range was not u sed to interpret th is result as normal/abnormal . NRBC x10^3 (test code <0.01 See_Comment [Auto mated = 4997644942) message] The s ystem which generated this result transmitted reference range : 10*3/?L. The reference range was not used to interpret this result as normal/abnormal . GRAN MAT (NEUT) % 77.6 % (test code = 770-8) IMM GRAN % (test code 0.60 % = 9877366919) LYMPH % (test code = 13.7 % 736-9) MONO % (test code = 7.7 % 5905-5) EOS % (test code = 0.2 % 713-8) BASO % (test code = 0.2 % 706-2) GRAN MAT x10^3(ANC) 7.68 10*3/uL 1.99-6.95 H (test code = 0005556110) IMM GRAN x10^3 (test 0.06 10*3/uL 0.00-0.06 code = 7246890688) LYMPH x10^3 (test code 1.35 10*3/uL 1.09-3.23 = 731-0) MONO x10^3 (test code 0.76 10*3/uL 0.36-1.02 = 742-7) EOS x10^3 (test code = <0.03 0.06-0.53 L 711-2) BASO x10^3 (test code <0.03 0.01-0.09 = 704-7) Lab Interpretation Abnormal (test code = 20932-8) [facility] HoustonSARS-CoV-2 ORF1ab Resp Ql [id number] 19:38:49 Test Item Value Reference Range Interpretation Comments Hospitalized? (test Yes code = 62942-9) ICU? (test code = No 70997-2) Symptomatic as defined No by CDC? (test code = 45368-2) Employed in No Healthcare? (test code = 31871-3) Resident in a No congregate care setting (including nursing homes, residential care for people with intellectual and developmental disabilities, psychiatric treatment facilities, group homes, board and care homes, homeless long term, foster care or other): (test code = 26693-4) SARS-CoV-2 ORF1ab Resp NOT DETECTED Not Detected INTER PRETATION: No Ql BETY+probe (test detectabl e levels code = 14744-2) of SARS-CoV- 2 Coronavirus (COVID-19) were present [...] n with SARS-CoV-2 Coronavirus (COVID-19). COMMENT: This Authentic8 SARS-CoV-2 molecular diagnostic assay utilizes [employer] Mediated Amplification (TMA) technology to rapidly detect [...] complexity clinical laboratory testing.SARS-CoV-2 RNA Resp Ql BETY+[id number] 22:20:00 Test Item Value Reference Range Interpretation Comments Hospitalized? (test Yes code = 86316-6) ICU? (test code = No 08371-6) Symptomatic as defined No by CDC? (test code = 37972-7) Employed in Unknown Healthcare? (test code = 08609-5) Resident in a Unknown congregate care setting (including nursing homes, residential care for people with intellectual and developmental disabilities, psychiatric treatment facilities, group homes, board and care homes, homeless long term, foster care or other): (test code = 07255-6) SARS-CoV-2 RNA Resp Ql NOT DETECTED Not Detected INTER PRETATION: No BETY+probe (test code = detec table levels 18718-6) of SARS-CoV-2 Coronavirus (COVID-19) were present in [...] complexity clinical laboratory testing.SARS-CoV-2 ORF1ab Resp Ql BETY+[id number] 14:59:31 Test Item Value Reference Range Interpretation Comments Hospitalized? (test Yes code = 64099-5) ICU? (test code = Yes 095583-5) Symptomatic as defined No by CDC? (test code = 21332-7) Employed in No Healthcare? (test code = 05863-2) Resident in a No congregate care setting (including nursing homes, residential care for people with intellectual and developmental disabilities, psychiatric treatment facilities, group homes, board and care homes, homeless long term, foster care or other): (test code = 77061-5) SARS-CoV-2 ORF1ab Resp NOT DETECTED Not Detected INTER PRETATION: No Ql BETY+probe (test detectabl e levels code = 22778-6) of SARS-CoV- 2 Coronavirus (COVID-19) were present [...] n with SARS-CoV-2 Coronavirus (COVID-19). COMMENT: This Authentic8 SARS-CoV-2 molecular diagnostic assay utilizes [employer] Mediated Amplification (TMA) technology to rapidly detect [...] complexity clinical laboratory testing.SARS-CoV-2 RNA Resp Ql BETY+[id number] 00:53:33 Test Item Value Reference Range Interpretation Comments Hospitalized? (test code Yes = 04577-3) ICU? (test code = No 52454-4) Symptomatic as defined No by CDC? (test code = 95261-3) Employed in Healthcare? No (test code = 93283-5) Resident in a congregate No care setting (including nursing homes, residential care for people with intellectual and developmental disabilities, psychiatric treatment facilities, group homes, board and care homes, homeless long term, foster care or other): (test code = 11036-2) ? (test code = No 73762-0) SARS-CoV-2 RNA Resp Ql DETECTED Not Detected A INTER PRETATION: This BETY+probe (test code = [place] 27087-1) detectable RNA present for the SARS-CoV-2 Coronavirus [...] NONE A MUCU) DRUGS OF ABUSE SCREEN [id number] 13:19:00 Test Item Value Reference Interpretation Comments [...] this result as normal/abnormal . BASIC METABOLIC [id number] 09:24:00 Test Item Value Reference Range Interpretation [...] this result as normal/abnormal . HEPATIC FUNCTION [id number] 09:24:00 Test Item Value Reference Range Interpretation [...] 59 Unit/L 45-117 N code = ALKP) [id number] 09:24:00 Test Item Value Reference Range Interpretation Comments ACETAMINOPHEN (test code = ACET) <2.0 mcG/ML 10.0-30.0 L [id number] 09:24:00 Test Item Value Reference Range Interpretation Comments ALCOHOL (test code = < 3 MG/DL 0-10 N MEDICAL ALCOHOL ALC) RESULTS. SITE W PREPPED WITH BE TADINE. <10 MG/DL ARE CONSIDERED NEGA TIVE. >400 MG/DL MAY BE FATAL.RESULTS F OR MEDICAL USE ONL Y. NOT TO BE USED FOR FORENSIC PURPOSES. [id number] 07:55:00 Test Item Value Reference Range Interpretation Comments SALICYLATE (test code < 1.7 MG/DL See_Comment L RESULT <2.8 IS = SMITH) CONSIDERED NEGA TIVE FOR SALICYLATE. [Automated mess age] The system Grand[employer] generated this result transmitted ref erence range: 2.8-20.0 THER. The reference r johan was not used to interpret this result as normal/abnor mal. CBC W/AUTO [id number] 07:10:00 Test Item Value Reference Range Interpretation [...] 0.00 K/mm3 0.00-0.05 N NRBC#) ECG 12 [id number] 22:52:05 Test Item Value Reference Range Interpretation Comments Ventricular rate (test code = 253) Atrial rate (test code = 255) SC interval (test code = 266) QRSD interval [...] MD (8059) on 11/26/2020 5:52:[address]2021-10-11 22:52:05 Test Item Value Reference Range Interpretation Comments Ventricular rate (test code = 253) Atrial rate (test code = 255) SC interval (test code = 266) QRSD interval [...] MD (8059) on 11/26/2020 5:52:04 PM [address]2021-10-11 22:52:05 Test Item Value Reference Range Interpretation Comments Ventricular rate (test code = 253) Atrial rate (test code = 255) SC interval (test code = 266) QRSD interval [...] MD (8059) on 11/26/2020 5:52:04 [address]2021-10-11 22:52:05 Test Item Value Reference Range Interpretation Comments Ventricular rate (test code = 253) Atrial rate (test code = 255) SC interval (test code = 266) QRSD interval [...] MD (8059) on 11/26/2020 5:52:04 [address]2021-10-11 22:52:05 Test Item Value Reference Range Interpretation Comments Ventricular rate (test code = 253) Atrial rate (test code = 255) SC interval (test code = 266) QRSD interval [...] MD (8059) on 11/26/2020 5:52:04 [address]2021-10-11 22:52:05 Test Item Value Reference Range Interpretation Comments Ventricular rate (test code = 253) Atrial rate (test code = 255) SC interval (test code = 266) QRSD interval [...] MD (8059) on 11/26/2020 5:52:04 [address]2021-10-11 22:52:05 Test Item Value Reference Range Interpretation Comments Ventricular rate (test code = 253) Atrial rate (test code = 255) SC interval (test code = 266) QRSD interval [...] MD (8059) on 11/26/2020 5:52:[address]2021-10-11 22:52:05 Test Item Value Reference Range Interpretation Comments Ventricular rate (test code = 253) Atrial rate (test code = 255) SC interval (test code = 266) QRSD interval [...] MD (8059) on 11/26/2020 5:52:[address]2021-10-11 22:52:05 Test Item Value Reference Range Interpretation Comments Ventricular rate (test code = 253) Atrial rate (test code = 255) SC interval (test code = 266) QRSD interval [...] Judge MD (8059) on 11/26/2020 5:52:04 PM [facility]2021-09-30 07:28:23 Test Item Value Reference Range Interpretation Comments Urine culture (test SEE COMMENT Bacteriu winston screen code = 8316227) negative. [facility]2021-09-30 07:28:23 Test Item Value Reference Range Interpretation Comments Urine culture (test SEE COMMENT Bacteriu winston screen code = 0581541) negative. [facility]2021-09-30 07:28:23 Test Item Value Reference Range Interpretation Comments Urine culture (test SEE COMMENT Bacteriu winston screen code = 3185473) negative. [facility]2021-09-30 07:28:23 Test Item Value Reference Range Interpretation Comments Urine culture (test SEE COMMENT Bacteriu winston screen code = 6004384) negative. [facility]2021-09-30 07:28:23 Test Item Value Reference Range Interpretation Comments Urine culture (test SEE COMMENT Bacteriu winston screen code = 4991860) negative. [facility]2021-09-30 07:28:23 Test Item Value Reference Range Interpretation Comments Urine culture (test SEE COMMENT Bacteriu winston screen code = 7738646) negative. [facility]2021-09-30 07:28:23 Test Item Value Reference Range Interpretation Comments Urine culture (test SEE COMMENT Bacteriu winston screen code = 9148307) negative. [facility]2021-09-30 07:28:23 Test Item Value Reference Range Interpretation Comments Urine culture (test SEE COMMENT Bacteriu winsotn screen code = 5034369) negative. [facility]2021-09-30 07:28:23 Test Item Value Reference Range Interpretation Comments Urine culture (test SEE COMMENT Bacteriu winston screen code = 4496067) [facility] [Presence] in Respiratory specimen by BETY with probe [id number] 02:40:47 Test Item Value Reference Range Interpretation Comments SARS-CoV-2 (COVID-19) RNA Not detected Not-Detected [Presence] in Respiratory specimen by BETY with probe detection (test code = 63919-9) Whether patient is employed in a healthcare setting (test code = 27347-5) Whether the patient has symptoms related to condition of interest (test code = 41694-3) Patient was hospitalized because of this condition (test code = 16193-8) Whether the patient was admitted to intensive care unit (ICU) for condition of interest (test code = 05900-9) Whether patient resides in a congregate care setting (test code = 53760-0) SARS-CoV-2 (COVID-19) RNA [Presence] in Respiratory specimen by BETY with probe [id number] 03:12:16 Test Item Value Reference Range Interpretation Comments SARS-CoV-2 (COVID-19) RNA Not detected Not-Detected [Presence] in Respiratory specimen by BETY with probe detection (test code = 10693-0) Whether patient is employed in a healthcare setting (test code = 70097-9) Whether the patient has symptoms related to condition of interest (test code = 54679-8) Patient was hospitalized because of this condition (test code = 91553-5) Whether the patient was admitted to intensive care unit (ICU) for condition of interest (test code = 57736-3) Whether patient resides in a congregate care setting (test code = 47371-7) BASIC METABOLIC [id number] 09:20:00 Test Item Value Reference Range Interpretation [...] message] (test code = Index/DL The system Grandis HEMINDEX) generated this result transmit isai reference [...] as normal/abnormal . Specimen comments: CCHEPATIC FUNCTION [id number] 09:20:00 Test Item Value Reference Range Interpretation [...] code = ALKP) Specimen comments: CCTHYROID STIMULATING [id number] 09:20:00 Test Item Value Reference Range Interpretation Comments THYROID STIMULATING HORMONE 0.619 mc IU/ML 0.340-4.820 N (test code = TSH) Specimen comments: [id number] 09:20:00 Test Item Value Reference Range Interpretation [...] change s in troponin levelscharacter istic of [place]. Specimen comments: [id number] 09:20:00 Test Item Value Reference Range Interpretation Comments ACETAMINOPHEN (test code = ACET) <2.0 mcG/ML 10.0-30.0 L Specimen comments: [id number] 09:20:00 Test Item Value Reference Range Interpretation Comments ALCOHOL (test code = < 3 MG/DL 0-10 N MEDICAL ALCOHOL ALC) RESULTS. SITE W PREPPED WITH BE TADINE. <10 MG/DL ARE CONSIDERED NEGA TIVE. >400 MG/DL MAY BE FATAL.RESULTS F OR MEDICAL USE ONL Y. NOT TO BE USED FOR FORENSIC PURPOSES. Specimen comments: [id number] 08:59:00 Test Item Value Reference Range Interpretation Comments SALICYLATE (test code < 1.7 MG/DL See_Comment L RESULT <2.8 IS = SMITH) CONSIDERED NEGA TIVE FOR SALICYLATE. [Automated mess age] The system [employer] generated this result transmitted ref erence range: 2.8-20.0 THER. The reference r johan was not used to interpret this result as normal/abnor mal. Specimen comments: BASI METABOLIC [id number] 08:55:00 Test Item Value Reference Range Interpretation [...] message] (test code = Index/DL The system [employer] HEMINDEX) generated this result transmit isai reference [...] this result as normal/abnormal . Specimen comments: [facility] [id number] 08:55:00 Test Item Value Reference Range Interpretation [...] code = ALKP) Specimen comments: CCTHYROID STIMULATING [id number] 08:55:00 Test Item Value Reference Range Interpretation Comments THYROID STIMULATING HORMONE 0.619 mc IU/ML 0.340-4.820 N (test code = TSH) Specimen comments: [id number] 08:55:00 Test Item Value Reference Range Interpretation [...] change s in troponin levelscharacter istic of [place]. Specimen comments: [id number] 08:55:00 Test Item Value Reference Range Interpretation Comments ACETAMINOPHEN (test code = ACET) mcG/ML 10.0-30.0 Specimen comments: [id number] 08:55:00 Test Item Value Reference Range Interpretation Comments ALCOHOL (test code = < 3 MG/DL 0-10 N MEDICAL ALCOHOL ALC) RESULTS. SITE W PREPPED WITH BE TADINE. <10 MG/DL ARE CONSIDERED NEGA TIVE. >400 MG/DL MAY BE FATAL.RESULTS F OR MEDICAL USE ONL Y. NOT TO BE USED FOR FORENSIC PURPOSES. Specimen comments: CCCBC W/AUTO [id number] 08:10:00 Test Item Value Reference Range Interpretation [...] NRBC#) Specimen comments: CC- XR CHEST 1 [id number] 03:12:00 [facility] : 1985 Sex: M FAX: Mahin Smallwood MD [phone] [place]: [facility]: [facility] FAX: Vilma Coker [phone] Patient Name: RAOARLINE Unit No: [id number] EXAMS: CPT CODE: [id number] XR CHEST 1 V 76465 EXAM: - XR CHEST 1 V HISTORY: [...] D/T: S: 10/16/2020 (314) TATUM Mcarthur NAME: J[address] PHYS: Vilma [place], [place] [address] : 1985 AGE: 35 SEX: M LOC: KarenERS PHONE #: [phone] EXAM DATE: 10/16/2020 STATUS: REG ER FAX #: [phone] RAD NO: DC Dt: PAGE 1 Signed ReportCOVID 19 Asymptomatic IH [id number] 06:58:00 Test Item Value Reference Range Interpretation Comments COVID 19 Asymptomatic IH AG (test POSITIVE Negative A code = COVNONPUIAG) BASIC METABOLIC [id number] 04:22:00 Test Item Value Reference Range Interpretation [...] 8.3 mg/dL 8.4-10.2 L CA) LIVER FUNCTION [id number] 04:22:00 Test Item Value Reference Range Interpretation [...] U/L 38-126 N (test code = ALKP) [id number] 04:22:00 Test Item Value Reference Range Interpretation Comments ALCOHOL (test code = < 10 mg/dL <10 ALC) ~~~~~~~~~~~~~~~ ~~~~~~~ ~~~~~~~~~~~~~~~ ~~~~~~~ ~~~~~~ RESU LTS ARE TO BE USED FOR MEDICAL PURPOSES ONLY.F OR LEGAL PURPOSES THE SPECIMEN MUST B E COLLECTED BY A CHAINOF CUSTODY. LEGAL TESTING IS NOT PERFORME D BY THIS FACILITY. ~~~~~~~~~~~~~~~ ~~~~~~~ ~~~~~~~~~~~~~~~ ~~~~~~~ ~~~~~~ CBC W/AUTO [id number] 04:08:00 Test Item Value Reference Range Interpretation [...] 0.02 x10 3/uL 0.0-0.1 N Coronavirus 2018 [facility] [id number] 17:19:00 Test Item Value Reference Range Interpretation Comments Coronavirus 2019 [facility] Bedside (test Negative Neg code = [id number]) [id number] 13:14:00 Test Item Value Reference Range Interpretation Comments SALICYLATE (test code < 1.7 MG/DL See_Comment L RESULT <2.8 IS = SMITH) CONSIDERED NEGA TIVE FOR SALICYLATE. [Automated mess age] The system [employer] generated this result transmitted ref erence range: 2.8-20.0 THER. The reference r johan was not used to interpret this result as normal/abnor mal. BASIC METABOLIC [id number] 13:03:00 Test Item Value Reference Range Interpretation [...] message] (test code = Index/DL The system [employer]) generated this result transmit isai reference range [...] this result as normal/abnormal . HEPATIC FUNCTION [id number] 13:03:00 Test Item Value Reference Range Interpretation [...] 87 Unit/L 45-117 N code = ALKP) [id number] 13:03:00 Test Item Value Reference Range Interpretation Comments ACETAMINOPHEN (test code = ACET) <2.0 mcG/ML 10.0-30.0 L [id number] 13:03:00 Test Item Value Reference Range Interpretation Comments ALCOHOL (test code = < 3 MG/DL 0-10 N MEDICAL ALCOHOL ALC) RESULTS. SITE W PREPPED WITH BE TADINE. <10 MG/DL ARE CONSIDERED NEGA TIVE. >400 MG/DL MAY BE FATAL.RESULTS F OR MEDICAL USE ONL Y. NOT TO BE USED FOR FORENSIC PURPOSES. DRUGS OF ABUSE SCREEN [id number] 12:38:00 Test Item Value Reference Interpretation Comments [...] this result as normal/abnormal . BASIC METABOLIC [id number] 12:37:00 Test Item Value Reference Range Interpretation [...] message] (test code = Index/DL The system [employer] HEMINDEX) generated this result transmit isai reference [...] this result as normal/abnormal . HEPATIC FUNCTION [id number] 12:37:00 Test Item Value Reference Range Interpretation [...] 87 Unit/L 45-117 N code = ALKP) [id number] 12:37:00 Test Item Value Reference Range Interpretation Comments ACETAMINOPHEN (test code = ACET) mcG/ML 10.0-30.0 [id number] 12:37:00 Test Item Value Reference Range Interpretation Comments ALCOHOL (test code = < 3 MG/DL 0-10 N MEDICAL ALCOHOL ALC) RESULTS. SITE W PREPPED WITH BE TADINE. <10 MG/DL ARE CONSIDERED NEGA TIVE. >400 MG/DL MAY BE FATAL.RESULTS F OR MEDICAL USE ONL Y. NOT TO BE USED FOR FORENSIC PURPOSES. CBC W/AUTO [id number] 12:02:00 Test Item Value Reference Range Interpretation [...] code = 0.00 K/mm3 0.00-0.05 N NRBC#) [id number] 23:33:00 Test Item Value Reference Range Interpretation [...] change s in troponin levelscharacter istic of [place]. B-TYPE NATRIURETIC [id number] 19:24:00 Test Item Value Reference Range Interpretation Comments B-TYPE NATRIURETIC PEPTIDE < 30.00 PG/ML 0.00-100.00 N (test code = BNP) URINALYSIS [id number] 15:43:00 Test Item Value Reference Range Interpretation [...] a.ST.VT15 AT 08/11/20 1302DRUGS OF ABUSE SCREEN [id number] 15:43:00 Test Item Value Reference Interpretation Comments [...] analyticaltest result. A more specific alternate chemi ewro method mustbe u sed in order to [...] a.ST.VT15 AT 08/11/20 1302DRUGS OF ABUSE SCREEN [id number] 15:43:00 Test Item Value Reference Interpretation Comments [...] HAND 3 + V LT 2020-08-11 13:43:00 [facility] : 1985 Sex: M FAX: Lan Agee MD [phone] [place]: [address] St: PRE Patient Name: ARLINE RAO Unit No: [id number] EXAMS: CPT CODE: [id number] XR HAND 3 + V LT [address] EXAM: - XR HAND 3 + V [...] By: [email or web address] Orig Print D/T: S: 08/11/2020 (2201) TATUM Mcarthur NAME: EDMUND RAO [address] PHYS: Lan Dykes MD [place], [place] [address] : 1985 AGE: 34 SEX: M LOC: B.ERS PHONE #: [phone] EXAM DATE: 08/11/2020 STATUS: PRE ER FAX #: [phone] RAD NO: DC Dt: PAGE 1 Signed Report- XR CHEST 1 [id number] 13:41:00 [facility] ARLINE RAO : 1985 Sex: M FAX: Lan Agee MD [phone] [place]: E St: PRE Patient Name: ARLINE RAO Unit No: [id number] EXAMS: CPT CODE: [id number] XR CHEST 1 V 19440 EXAM: - XR CHEST 1 V Location [...] By: [email or web address] Orig Print D/T: S: 08/11/2020 (3755) [facility] NAME: ARLINE RAO [address] [place], [place] [address] PHYS: Lan Munroe MD, [place] [address] : 1985 AGE: 34 SEX: M LOC: CASSANDRA PHONE #: [phone] EXAM DATE: 08/11/2020 STATUS: PRE ER FAX #: [phone] RAD NO: DC Dt: PAGE 1 Signed ReportACETAMINOPHEN 2020-08-11 12:50:00 Test Item Value Reference Range Interpretation Comments ACETAMINOPHEN (test code = ACET) < 2.0 mcG/ML 10.0-30.0 L [id number] 12:50:00 Test Item Value Reference Range Interpretation Comments ALCOHOL (test code = <3 MG/DL 0-10 N MEDICAL ALCOHOL RESULTS. ALC) SITE WAS PREPPE D WITH BETADINE. <10 MG/DL ARE CONSI DERED NEGATIVE. >400 MG/DL MAY BE FATAL.RESULTS F OR MEDICAL USE ONL Y. NOT TO BE USED FOR FOR ENSIC PURPOSES. COMPREHENSIVE METABOLIC [id number] 12:50:00 Test Item Value Reference Range Interpretation [...] (test code = MG Index/DL The system [employer]) generated this result transmit isai reference range [...] to interpret this result as normal/abnormal . [id number] 12:50:00 Test Item Value Reference Range Interpretation [...] change s in troponin levelscharacter istic of [place]. [id number] 12:39:00 Test Item Value Reference Range Interpretation Comments SALICYLATE (test code 3.1 MG/DL See_Comment N [Auto mated message] = SMITH) The system [employer] generated this result transmitted ref erence range: 2.8-20.0 THER. The reference r johan was not used to interpret this result as normal/abnor mal. COMPREHENSIVE METABOLIC [id number] 12:39:00 Test Item Value Reference Range Interpretation [...] (test code = MG Index/DL The system [employer]) generated this result transmit isai reference range [...] to interpret this result as normal/abnormal . [id number] 12:39:00 Test Item Value Reference Range Interpretation [...] change s in troponin levelscharacter istic of CO. [id number] 12:39:00 Test Item Value Reference Range Interpretation Comments ACETAMINOPHEN (test code = ACET) < 2.0 mcG/ML 10.0-30.0 L [id number] 12:39:00 Test Item Value Reference Range Interpretation Comments ALCOHOL (test code = ALC) MG/DL 0-10 COMPREHENSIVE METABOLIC [id number] 12:34:00 Test Item Value Reference Range Interpretation [...] (test code = MG Index/DL The system [employer]) generated this result transmit isai reference [...] to interpret this result as normal/abnormal . [id number] 12:34:00 Test Item Value Reference Range Interpretation Comments TROPONIN-I (test code = TROPI) NG/ML 0.000-0.045 [id number] 12:34:00 Test Item Value Reference Range Interpretation Comments ACETAMINOPHEN (test code = ACET) < 2.0 mcG/ML 10.0-30.0 L [id number] 12:34:00 Test Item Value Reference Range Interpretation Comments ALCOHOL (test code = ALC) MG/DL 0-10 CBC W/AUTO [id number] 12:23:00 Test Item Value Reference Range Interpretation [...] 0.00 K/mm3 0.00-0.05 N NRBC#) CBC WITH [id number] 09:49:19 Test Item Value Reference Range Interpretation [...] RDW-SD (test code = 42.9 fL 38.5-51.6 25020-0) RDW-CV (test code = 12.4 % 12.1-15.4 788-0) PLT (test code = See_Comment [Automated 777-3) message] The sy stem which generated this result transmitted reference range : 150 - 328 10*3/ ?L. The reference r johan was not used to interpret this result as normal/abnormal . MPV (test code = 9.8 fL 9.8-13.0 45904-4) NRBC/100 WBC (test See_Comment [Automat ed code = 1003895790) message] The system which generated this result transmitted reference range : 0.0 - 10.0 /100 WBCs. The refer ence range was not u sed to interpret th is result as normal/abnormal . NRBC x10^3 (test code <0.01 See_Comment [Auto mated = 6759624897) message] The s ystem which generated this result transmitted reference range : 10*3/?L. The reference range was not used to interpret this result as normal/abnormal . GRAN MAT (NEUT) % 41.9 % (test code = 770-8) IMM GRAN % (test code 0.20 % = 6760718386) LYMPH % (test code = 40.9 % 736-9) MONO % (test code = 13.7 % 5905-5) EOS % (test code = 3.1 % 713-8) BASO % (test code = 0.2 % 706-2) GRAN MAT x10^3(ANC) 1.89 10*3/uL 1.99-6.95 L (test code = 9329153003) IMM GRAN x10^3 (test <0.03 0.00-0.06 code = 8902828355) LYMPH x10^3 (test code 1.85 10*3/uL 1.09-3.23 = 731-0) MONO x10^3 (test code 0.62 10*3/uL 0.36-1.02 = 742-7) EOS x10^3 (test code = 0.14 10*3/uL 0.06-0.53 711-2) BASO x10^3 (test code <0.03 0.01-0.09 = 704-7) Lab Interpretation Abnormal (test code = 00474-2) [facility] [id number] 09:39:48 Test Item Value Reference Range Interpretation Comments TROPONIN I (test 0.002 ng/mL See_Comment [Automated code = 5500890993) message] The system which generated this result [...] ? Lab Interpretation Normal (test code = 33498-4) [facility]. METABOLIC PANEL (65540)2020-07-12 09:22:19 Test Item Value Reference Range Interpretation Comments NA (test code = 135 mmol/L 135-145 1536826816) K (test code = 3.6 mmol/L 3.5-5.0 8873465957) CL (test code = 103 mmol/L 98-108 0248099986) CO2 TOTAL (test code = 26 mmol/L 23-31 4898102425) AGAP (test code = 2-16 2024962962) BUN (test code = 17 mg/dL 7-23 0619563599) GLUCOSE (test code = 98 mg/dL 70-110 7046312417) CREATININE (test code = 0.82 mg/dL 0.60-1.25 8802897209) TOTAL BILI (test code = 1.3 mg/dL 0.1-1.1 H 7587143145) CALCIUM (test code = 8.4 mg/dL 8.6-10.6 L 9153507583) T PROTEIN (test code = 6.6 g/dL 6.3-8.2 2947480103) ALBUMIN (test code = 3.7 g/dL 3.5-5.0 7895878420) ALK PHOS (test code = 81 U/L 34-122 8328472179) ALTv (test code = 51 U/L 5-50 H 1742-6) AST(SGOT) (test code = 68 U/L 13-40 H 1672442902) eGFR (test code = mL/min/1.73m2 2155062742) GEORGIE (test code = GEORGIE) Association of [...] tests). Lab Interpretation Abnormal (test code = 13258-8) [facility]IP[facility], [id number] 09:22:14 Test Item Value Reference Range Interpretation Comments LIPASE (test code = 4616047619) 106 U/L 0-220 Lab Interpretation (test code = Normal 69448-0) [facility]aPTT2021-05-27 09:13:54 Test Item Value Reference Range Interpretation Comments APTT Patient (test See_Comment [Automat ed code = 3173-2) message] The system which generated this result transmitted reference range : 23 - 38 Seconds . The reference range was not used to interpr et this result as normal/abnormal . GEORGIE (test code = GEORGIE) The [facility] patient population mean normal value for aPTT is 30 seconds. Lab Interpretation Normal (test code = 12100-7) [facility] HoustonPROTHROMBIN TIME / [id number] 09:11:53 Test Item Value Reference Range Interpretation [...] tions. Lab Interpretation (test Normal code = 03859-4) [facility] HoustonCoronavirus 2019 nCoV Mffhadu9075-79-85 08:52:00 Test Item Value Reference Range Interpretation Comments Coronavirus 2019 Negative NEGATIVE This test h as been nCoV Bedside (test authorize d by FDA under code = [id number]) an EUA for use byauthorized laboratories; This [...] and/o r diagnosis of CO VID-19 under Fukmmwd94 4(b)(1) of the Act, 21 U.S .C. 360bbb-3(b)(1), unless theauthorizatio n is terminated or r evoked sooner. DRUGS OF ABUSE [id number] 03:16:00 Test Item Value Reference Range Interpretation [...] poses (e.g employment testing). DRUGS OF ABUSE [id number] 02:47:00 Test Item Value Reference Range Interpretation [...] (test code = PHENCU) DRUGS OF ABUSE [id number] 02:38:00 Test Item Value Reference Range Interpretation [...] NEGATIVE (test code = PHENCU) BASIC METABOLIC [id number] 02:34:00 Test Item Value Reference Range Interpretation [...] 9.7 mg/dL 8.4-10.2 N CA) LIVER FUNCTION [id number] 02:34:00 Test Item Value Reference Range Interpretation [...] U/L 38-126 N (test code = ALKP) [id number] 02:34:00 Test Item Value Reference Range Interpretation Comments ACETAMINOPHEN (test code = ACET) <10 ug/mL 10-30 L [id number] 02:34:00 Test Item Value Reference Range Interpretation Comments SALICYLATE (test code < 1.0 mg/dL Negati ve <2.0 = SMITH) mg/dLTherapeuti c Range <20 mg/dL [id number] 02:34:00 Test Item Value Reference Range Interpretation Comments ALCOHOL (test code = < 10 mg/dL <10 ALC) ~~~~~~~~~~~~~~~ ~~~~~~~ ~~~~~~~~~~~~~~~ ~~~~~~~ ~~~~~~ RESU LTS ARE TO BE USED FOR MEDICAL PURPOSES ONLY.F OR LEGAL PURPOSES THE SPECIMEN MUST B E COLLECTED BY A CHAINOF CUSTODY. LEGAL TESTING IS NOT PERFORME D BY THIS FACILITY. ~~~~~~~~~~~~~~~ ~~~~~~~ ~~~~~~~~~~~~~~~ ~~~~~~~ ~~~~~~ URINALYSIS [id number] 02:27:00 Test Item Value Reference Range Interpretation [...] this result as normal/abnormal . CBC W/AUTO [id number] 02:18:00 Test Item Value Reference Range Interpretation [...] x10 3/uL 0.0-0.1 N DRUGS OF ABUSE [id number] 06:47:00 Test Item Value Reference Range Interpretation [...] non-medical pur poses (e.g employment testing). URINALYSIS [id number] 06:29:00 Test Item Value Reference Range Interpretation [...] this result as normal/abnormal . BASIC METABOLIC [id number] 03:28:00 Test Item Value Reference Range Interpretation [...] 9.0 mg/dL 8.4-10.2 N CA) LIVER FUNCTION [id number] 03:28:00 Test Item Value Reference Range Interpretation [...] U/L 38-126 N (test code = ALKP) [id number] 03:28:00 Test Item Value Reference Range Interpretation Comments ACETAMINOPHEN (test code = ACET) <10 ug/mL 10-30 L [id number] 03:28:00 Test Item Value Reference Range Interpretation Comments SALICYLATE (test code < 1.0 mg/dL Negati ve <2.0 = SMITH) mg/dLTherapeuti c Range <20 mg/dL [id number] 03:28:00 Test Item Value Reference Range Interpretation Comments ALCOHOL (test code = < 10 mg/dL <10 ALC) ~~~~~~~~~~~~~~~ ~~~~~~~ ~~~~~~~~~~~~~~~ ~~~~~~~ ~~~~~~ RESU LTS ARE TO BE USED FOR MEDICAL PURPOSES ONLY.F OR LEGAL PURPOSES THE SPECIMEN MUST B E COLLECTED BY A CHAINOF CUSTODY. LEGAL TESTING IS NOT PERFORME D BY THIS FACILITY. ~~~~~~~~~~~~~~~ ~~~~~~~ ~~~~~~~~~~~~~~~ ~~~~~~~ ~~~~~~ CBC W/AUTO [id number] 00:30:00 Test Item Value Reference Range Interpretation [...] 3/uL 0.0-0.1 N - CT C-SPINE W/O [id number] 23:37:00 Patient Name: ARLINE RAO Unit No: [id number] EXAMS: CPT CODE: [id number] CT C-SPINE W/O CONT 32632 Location: CT cervical spine, 08/29/19 TECHNIQUE: CT [...] 16.41 DLP: 366.20 Trnscrpt: 08/29/2019 (233) HeatherDAS6 TTAUM Mcarthur NAME: ARLINE RAO [address] [place] [address] PHYS: Lan Munroe [place], [place] [address] : 1985 AGE: 33 SEX: M LOC: B.ERS PHONE #: [phone] EXAM DATE: 08/29/2019 STATUS: REG ER FAX #: [phone] RAD #: D/C DT PAGE 1 Signed Report Patient Name: ARLINE RAO Unit No: [id number] EXAMS: CPT CODE: [id number] CT C-SPINE W/O CONT 66792 <Continued> Orig Print D/T: S: 08/29/2019 (6331) [facility] NAME: ARLINE RAO [address] [place] [address] PHYS: Lan Mun[place], [place] [address] : 1985 AGE: 33 SEX: M LOC: B.ERS PHONE #: [phone] EXAM DATE: 08/29/2019 STATUS: REG ER FAX #: [phone] RAD #: D/C DT PAGE 2 Signed Report- CT HEAD/BRAIN W/O [id number] 23:33:00 Patient Name: ARLINE RAO Unit No: [id number] EXAMS: CPT CODE: [id number] CT HEAD/BRAIN W/O CONT 63361 Location: CT head, 08/29/19 COMPARISON EXAMS: None [...] (2332) HeatherDAS6 TATUM Mcarthur NAME: ARLINE RAO [address] [place] [address] PHYS: [place] [address] : 1985 AGE: 33 SEX: M LOC: KarenERS PHONE #:[phone] EXAM DATE: 08/29/2019 STATUS: REG ER FAX #: [phone] RAD #: D/C DT PAGE 1 Signed Report Patient Name: ARLINE RAO Unit No: [id number] EXAMS: CPT CODE: [id number] CT HEAD/BRAIN W/O CONT 88363 <Continued> Orig Print D/T: S: 08/29/2019 (2335) TATUM Mcarthur NAME: [address] PHYS: [place] [address] : 1985 AGE: 33 SEX: M LOC: B.ERS PHONE #: [phone] EXAM DATE:08/29/2019 STATUS: REG ER FAX #: [phone] RAD #: D/C DT PAGE 2 Signed ReportCOMPREHENSIVE METABOLIC [id number] 23:28:00 Test Item Value Reference Range Interpretation [...] code = LIPINDEX) MG Index/DL CBC W/AUTO [id number] 23:07:00 Test Item Value Reference Range Interpretation [...] 0.00 K/mm3 0.00-0.05 N NRBC#) BASIC METABOLIC [id number] 14:23:00 Test Item Value Reference Range Interpretation [...] NORMAL code = LIPINDEX) Index/DL HEPATIC FUNCTION [id number] 14:23:00 Test Item Value Reference Range Interpretation [...] 68 Unit/L 45-117 N code = ALKP) [id number] 14:23:00 Test Item Value Reference Range Interpretation Comments ALCOHOL (test code = 3 MG/DL 0-10 N MEDICAL ALCOHOL RESULTS. ALC) SITE WAS PREPPE D WITH BETADINE. <10 MG/DL ARE CONSI DERED NEGATIVE. >400 MG/DL MAY BE FATAL.RESULTS F OR MEDICAL USE ONL Y. NOT TO BE USED FOR FOR ENSIC PURPOSES. BASIC METABOLIC [id number] 14:17:00 Test Item Value Reference Range Interpretation [...] 1 NORMAL = LIPINDEX) Index/DL HEPATIC FUNCTION [id number] 14:17:00 Test Item Value Reference Range Interpretation [...] TOTAL (test code Unit/L 45-117 = ALKP) [id number] 14:17:00 Test Item Value Reference Range Interpretation Comments ALCOHOL (test code = ALC) MG/DL 0-10 CBC W/O [id number] 14:04:00 Test Item Value Reference Range Interpretation [...] = 9.4 fL 7.6-10.4 N MPV) RPR [id number] 14:01:19 Test Item Value Reference Range Interpretation [...] = 12-17-2019 N Expiration Dt) Thyroid Stimulating [id number] 09:09:16 Test Item Value Reference Range Interpretation Comments TSH (test code = TSH) 0.418 mIU/mL 0.270-4.200 Lipid Unrmi6833-85-10 08:59:32 Test Item Value Reference Range Interpretation Comments Cholesterol Total 131 mg/dL 0-200 RISK OF HE ART (test code = DISEASEPublishe d by Cholesterol Total) [employer] Giovanna lyte Optimal Borderl ine [...] being used code = LDL/HDL Ratio) in [facility] calculation is LDL/HDL Ratio=L DL Calc/HDL Chol Thyroid Stimulating [id number] 10:03:42 Test Item Value Reference Range Interpretation Comments TSH (test code = TSH) 1.560 mIU/mL 0.270-4.200 Lipid [id number] 09:52:10 Test Item Value Reference Range Interpretation Comments Cholesterol Total 210 mg/dL 0-200 H RISK OF HE ART (test code = DISEASEPublishe d by Cholesterol Total) [employer] Giovanna lyte Optimal Borderl ine [...] being used code = LDL/HDL Ratio) in [facility] calculation is LDL/HDL Ratio=L DL Calc/HDL Chol RPR Pwbukpzgbzp0596-98-19 11:37:43 Test Item Value Reference Range Interpretation Comments RPR Qual (test code = RPR Qual) Non-Reactive Non-Reactive Reactive Control (test code = Reactive Reactive Control) Weak Reactive Control (test Weak Reactive code = Weak Reactive Control) Non-Reactive Control (test code Non-Reactive = Non-Reactive Control) Lot # (test code = Lot #) [id number] N Expiration Dt (test code = 12-17-19 N Expiration Dt) Urinalysis [id number] 23:07:47 Test Item Value Reference Range Interpretation Comments UA WBC (test code = UA WBC) None Seen 0-5 UA RBC (test code = UA RBC) None Seen 0-5 UA Bacteria (test code = UA None Seen Bacteria) UA Squam Epithelial (test code = UA 0-5 Squam Epithelial) Comprehensive Metabolic [id number] 22:29:50 Test Item Value Reference Range Interpretation [...] A/G 1.7 ratio N Ratio) Comprehensive Metabolic [id number] 22:29:50 Test Item Value Reference Range Interpretation [...] provided, and t he patient is aliyah le, multiply by 0.7 42. Results for [...] the National Kidney Foundation, http://nkdep.ni h.gov Alcohol Qrgjt3926-57-82 22:29:50 Test Item Value Reference Range Interpretation Comments Ethanol Level (test 0.06 g/dL 0.00-0.01 H Intoxica isai 0.080 g/dL code = Ethanol or more Level) Ethanol Inst (test 58 N code = Ethanol Inst) Comprehensive Metabolic [id number] 22:29:50 Test Item Value Reference Range Interpretation [...] ag e have not been validated by [facility] MDRD study and should be interpreted [...] ag e have not been validated by [facility] MDRD study and should be interpreted wit h caution. eGFR R esult Interpretation: eGFR > or = 60 is in the Normal RangeeGF R < 60 may mean kid tran diseaseeGFR < 1 5 may mean kidney failure Rang es recommended by the National Kidney Foundation, http://nkdep.ni h.gov Complete Blood Count with Paoorduowpkz0045-43-16 22:14:44 Test Item Value Reference Range Interpretation [...] code = IPF) 0 % N Automated Hlknfsmjlhas4498-57-83 22:14:44 Test Item Value Reference Range Interpretation Comments Neutro Auto (test code = Neutro 72.2 % 36.0-70.0 H Auto) Lymph Auto (test code = Lymph Auto) 19.6 % 12.0-44.0 Norton Auto (test code = Norton Auto) 6.9 % 0.0-11.0 Eos, Auto (test code = Eos, Auto) 0.0 % 0.0-7.0 Basophil Auto (test code = Basophil 0.4 % 0.0-2.0 Auto) Neutro Absolute (test code = Neutro 6.1 x10 1.6-7.4 Absolute) Lymph Absolute (test code = Lymph 1.67 x10 .50-4.60 Absolute) Norton Absolute (test code = Norton .59 x10 .00-1.20 Absolute) Eos Absolute (test code = Eos 0.00 x10 0.00-0.74 Absolute) Baso Absolute (test code = Baso 0.03 x10 0.00-0.21 Absolute) IG [id number] 22:14:44 Test Item Value Reference Range Interpretation Comments IG (test code = IG) 0.9 % 0.0-5.0 IG Abs (test code = IG Abs) 0 x10 N Urine Drug [id number] 22:14:38 Test Item Value Reference Range Interpretation [...] if desired . Urinalysis with Microscopic if msywtbuph7886-03-65 21:53:48 Test Item Value Reference Range Interpretation [...] Ind?) rule GL_SJM_UA_MICRO _IN D Urine Drug Pftqpt1222-27-31 09:31:28 Test Item Value Reference Range Interpretation [...] matory test if desired . Comprehensive Metabolic Suahu1675-28-55 09:17:22 Test Item Value Reference Range Interpretation [...] A/G 2.1 ratio N Ratio) Comprehensive Metabolic [id number] 09:17:22 Test Item Value Reference Range Interpretation [...] National Kidney Foundation, http://nkdep.ni h.gov Comprehensive Metabolic Yxjnx3311-29-94 09:17:22 Test Item Value Reference Range Interpretation [...] ag e have not been validated by [facility] MDRD study and should be interpreted [...] ag e have not been validated by [facility] MDRD study and should be interpreted wit h caution. eGFR R esult Interpretation: eGFR > or = 60 is in the Normal RangeeGF R < 60 may mean kid tran diseaseeGFR < 1 5 may mean kidney failure Rang es recommended by the National Kidney Foundation, http://nkdep.ni h.gov IG Plxzu8423-53-86 09:08:10 Test Item Value Reference Range Interpretation Comments IG (test code = IG) 0.4 % 0.0-5.0 IG Abs (test code = IG Abs) 0 x10 N Complete Blood Count with Fiuravauqbcq5731-58-59 09:08:09 Test Item Value Reference Range Interpretation [...] code = IPF) 0 % N Automated Eaevmjjwgcgc5371-47-37 09:08:09 Test Item Value Reference Range Interpretation Comments Neutro Auto (test code = Neutro 73.6 % 36.0-70.0 H Auto) Lymph Auto (test code = Lymph Auto) 17.3 % 12.0-44.0 Norton Auto (test code = Norton Auto) 8.3 % 0.0-11.0 Eos, Auto (test code = Eos, Auto) 0.1 % 0.0-7.0 Basophil Auto (test code = Basophil 0.3 % 0.0-2.0 Auto) Neutro Absolute (test code = Neutro 5.1 x10 1.6-7.4 Absolute) Lymph Absolute (test code = Lymph 1.19 x10 .50-4.60 Absolute) Norton Absolute (test code = Norton .57 x10 .00-1.20 Absolute) Eos Absolute (test code = Eos 0.01 x10 0.00-0.74 Absolute) Baso Absolute (test code = Baso 0.02 x10 0.00-0.21 Absolute) [facility] - DRUG SCREEN [id number] 02:56:00 Test Item Value Reference Range Interpretation Comments BENZO U (test code = Negative Negative 4099701945) EARL U (test code = Negative Negative 3557565697) AMPHET (test code = Presumptive Positive Negative A 4073378951) THC (test code = Negative Negative 4365344326) METHADONE (test code = Negative Negative 4118245380) Meth U (test code = Presumptive Positive Negative A 5967816980) OPIATES (test code = Negative Negative 5918075443) Cocaine Metabolite (test Negative Negative code = 2417787080) PROPOXY (test code = Negative Negative 5849115590) Tric U (test code = Negative Negative 3671981059) PCP (test code = Negative Negative 2301795116) OXYCOD (test code = Negative Negative 4469944303) GEORGIE (test code = GEORGIE) Urine Drug [...] testing). Lab Interpretation (test Abnormal code = 89873-0) [facility]et[facility] 02:40:00 Test Item Value Reference Range Interpretation Comments ACETAMINOP (test code = <10.0 10-30 L 3191306660) GEORGIE (test code = GEORGIE) Toxic: Greater than 200 ug/mL @ 4 hour post ingestion or greater than 50 ug/mL @ 12 hour post ingestion Lab Interpretation (test Abnormal code = 76510-1) [facility] HoustonSalicylate2019 02:40:00 Test Item Value Reference Range Interpretation Comments SALICYLATE (test code <10 mg/L = 9970313439) GEORGIE (test code = GEORGIE) Therapeutic Range:? Analgesic and Antipyretic Use? 20-100 mg/L? Anti-Inflammatory Use? 100-250 mg/LToxic Range:? Greater than 300 mg/L [facility] HoustonEthanol (ETOH) [id number] 02:40:00 Test Item Value Reference Range Interpretation Comments ALCOHOL (test code = <10 mg/dL 1754720140) GEORGIE (test code = GEORGIE) <10 Oknhdxfa60-722 Toxic>100 Depression of ASSOCIATE PROGRAMMER>400 Fatalities Reported [facility] Houston[facility] Met[facility] (NA, K, CL, CO2, Glucose, BUN, Creatinine, CA)2018-11-05 02:35:00 Test Item Value Reference Range Interpretation Comments NA (test code = 142 mmol/L 135-145 8417796417) K (test code = 3.5 mmol/L 3.5-5 0026956167) CL (test code = 107 mmol/L 98-108 6468776655) CO2 TOTAL (test code = 25 mmol/L 23-31 6347276845) AGAP (test code = 2-16 0413581406) BUN (test code = 12 mg/dL 7-23 8521509248) GLUCOSE (test code = 90 mg/dL 70-110 4477965148) CREATININE (test code 0.77 mg/dL 0.6-1.25 = 5035948394) CALCIUM (test code = 9.3 mg/dL 8.6-10.6 5540176864) eGFR Calculation mL/min/1.73m2 (Non-) (test code = 0103680293) eGFR Calculation mL/min/1.73m2 () (test code = 9546123371) GEORGIE (test code = GEORGIE) Association of [...] or urine or abnormalities in imaging tests). [facility] HoustonHepatic Function Panel (ALB, T.PRO, BILI T, BU/BC, ALT, AST, ALK PHOS)2018-11-05 02:35:00 Test Item Value Reference Range Interpretation Comments TOTAL BILI (test code = 8256674662) 1.0 mg/dL 0.1-1.1 BILI UNCON (test code = 7596361573) 0.8 mg/dL 0.1-1.1 BILI CONJ (test code = 8524656619) 0.0 mg/dL 0-0.3 T PROTEIN (test code = 9385031457) 7.0 g/dL 6.3-8.2 ALBUMIN (test code = 1980716441) 4.4 g/dL 3.5-5 ALK PHOS (test code = 9363070957) 71 U/L 34-122 ALT(SGPT) (test code = 5435518530) 39 U/L 9-51 AST(SGOT) (test code = 0517412292) 40 U/L 13-40 Lab Interpretation (test code = Normal 13073-0) [facility] HoustonCB WITH CDKUTHVBLCFN5528-72-87 02:10:00 Test Item Value Reference Range Interpretation [...] RDW-SD (test code = 46.3 fL 38.5-51.6 70243-1) RDW-CV (test code = 13.1 % 12.1-15.4 788-0) PLT (test code = See_Comment [Automated 777-3) message] The sy stem which generated this result transmitted reference range : 150 - 328 10*3/ ?L. The reference r johan was not used to interpret this result as normal/abnormal . MPV (test code = 9.9 fL 9.8-13 97223-6) NRBC/100 WBC (test See_Comment [Automat ed code = 0023451045) message] The system which generated this result transmitted reference range : 0.0 - 10.0 /100 WBCs. The refer ence range was not u sed to interpret th is result as normal/abnormal . NRBC x10^3 (test code <0.01 See_Comment [Auto mated = 7349199467) message] The s ystem which generated this result transmitted reference range : 10*3/?L. The reference range was not used to interpret this result as normal/abnormal . GRAN MAT (NEUT) % 50.8 % (test code = 770-8) IMM GRAN % (test code 0.60 % = 7047758548) LYMPH % (test code = 33.8 % 736-9) MONO % (test code = 14.4 % 5905-5) EOS % (test code = 0.0 % 713-8) BASO % (test code = 0.4 % 706-2) GRAN MAT x10^3(ANC) 2.62 10*3/uL 1.99-6.95 (test code = 6987963528) IMM GRAN x10^3 (test 0.03 10*3/uL 0-0.06 code = 0014588370) LYMPH x10^3 (test code 1.74 10*3/uL 1.09-3.23 = 731-0) MONO x10^3 (test code 0.74 10*3/uL 0.36-1.02 = 742-7) EOS x10^3 (test code = <0.03 0.06-0.53 L 711-2) BASO x10^3 (test code <0.03 0.01-0.09 = 704-7) Lab Interpretation Abnormal (test code = 66972-1) [facility] [id number] 13:14:00 Test Item Value Reference Range Interpretation [...] by the National Kidney Foundation,http ://nkd ep.nih.gov [id number] 13:09:00 Test Item Value Reference Range Interpretation [...] g/dL 0.00-0.01 N code = ETOHU) Urinalysis [id number] 12:59:00 Test Item Value Reference Range Interpretation Comments Color (test code = Yellow Yellow,Straw,Pl N COLOR) yellow Clarity (test code = Clear Clear N CLAR) Specific [place] (test 1.027 1.001-1.035 N code = SPGR) [...] code = Few /HPF BACT) CBC with [id number] 12:42:00 Test Item Value Reference Range Interpretation [...] code = ALYMPH) 2.3 K/cumm 0.5-4.6 N Norton Abs (test code = AMONO) 0.6 K/cumm 0.0-1.2 N Eos Abs (test code = AEOS) 0.09 K/cumm 0.00-0.74 N Baso Abs (test code = ABASO) 0.0 K/cumm 0.00-0.21 N Hepatic Function [id number] 18:55:00 Test Item Value Reference Range Interpretation [...] = ALT) 47 U/L 1-41 H HIV [id number] 12:45:00 Test Item Value Reference Range Interpretation Comments HIV 1/2 Antibody Non-Reactive Non-Reactive N HIV1/2 Anti body screen (test code = result indicate s the HIV1/2AB) absence of HIV1 and HCS9anvqetnwn.H owever, A Non-Reactive screen result does not [...] rule o ut exposure or infection.If ac [place] HIV-1 is suspec isai, HIV RNA Quantit ative is recommended. RPR, [id number] 21:30:00 Test Item Value Reference Range Interpretation Comments RPR (test code = RPR) Non-Reactive Non-Reactive N Thyroid Stimulating Hormone (TSH)2017-03-17 09:55:00 Test Item Value Reference Range Interpretation Comments TSH (test code = TSH) 0.94 mIU/mL 0.270-4.200 N Lipid [id number] 09:53:00 Test Item Value Reference Range Interpretation Comments Cholesterol (test 124 mg/dL 0-200 N code = CHOL) Triglycerides (test 61 mg/dL 9-200 N code = TRIG) HDL (test code = 47 mg/dL 40-60 N HDL) Chol/HDL (test code 2.6 Ratio 0.0-5.0 N = CHOLPHDL) LDL, Calculated 65 0-130 N (NOTE)RISK O F HEART (test code = LDLC) DISEASEPu blished by [place] Heart AssociationAnal yte Optim al Boderline Increased RiskC HOL <200 200-239 >240TRI G <150 150-199 >200HDL Male: >60 <40HDL Female: >60 <50 LDL < 100 130-15 9 >160 LDL NEAR OPTIMAL IS 100- 129 VLDL (test code = 12 mg/dL 5-40 N VLDL) LDL/HDL (test code = 1 LDLPHDL) Urinalysis [id number] 15:09:00 Test Item Value Reference Range Interpretation Comments Color (test code = Yellow Yellow,Straw,Pl N COLOR) yellow Clarity (test code = Clear Clear N CLAR) Specific [place] (test 1.028 1.001-1.035 N code = SPGR) [...] = 0-1 Granular /HPF CASTS) Comprehensive Metabolic [id number] 14:24:00 Test Item Value Reference Range Interpretation [...] by the National Kidney Foundation,http ://nkd ep.nih.gov [id number] 14:20:00 Test Item Value Reference Range Interpretation [...] 0.00-0.01 N code = ETOHU) CBC with [id number] 14:08:00 Test Item Value Reference Range Interpretation [...] code = ALYMPH) 2.2 K/cumm 0.5-4.6 N Norton Abs (test code = AMONO) 0.9 K/cumm 0.0-1.2 N Eos Abs (test code = AEOS) 0.06 K/cumm 0.00-0.74 N Baso Abs (test code = ABASO) 0.0 K/cumm 0.00-0.21 N
[2021-08-06 17:17] LABS: Absolute Lymphocytes (CBC) 1.5 K/uL (0.7-4.9); Hematocrit 50.3 % (39.6-49.0); Lymphocytes % 25.8 % (15.3-44.8); MPV 7.5 fL (7.6-11.3); RBC Red Blood Cell Count 5.15 M/uL (4.33-5.43)
--- NOTE | 2021-08-06 17:22 | RAD REPORT ---
EXAM DESCRIPTION: RAD - Chest Single View - 08/06/2021 4:59 pm CLINICAL HISTORY: CHEST PAIN COMPARISON: Chest Single View dated 07/31/2021; Chest Single View dated 07/28/2021; Chest Single View dated 06/22/2021; Chest Single View dated 06/12/2021 FINDINGS: Lines: None. Lungs: No evidence of edema or pneumonia. Pleural: No significant pleural effusions or pneumothorax. Cardiac: The heart size is within normal limits. Bones: No acute fractures. Other: IMPRESSION: No acute cardiopulmonary disease.
[2021-08-06 17:28] LABS: Protime INR 0.88
[2021-08-06 17:39] LABS: ALT/SGPT 106 U/L (12-78); AST/SGOT 49 U/L (15-37); Albumin 3.9 g/dL (3.4-5.0); Alkaline Phosphatase 96 U/L (45-117); BUN Blood Urea Nitrogen 14 mg/dL (7-18); Bicarbonate 28 mmol/L (21-32); Bilirubin Direct 0.1 mg/dL (0-0.2); Bilirubin Total 0.6 mg/dL (0.2-1.0); Glomerular Filtration Rate 127 ml/min (=/>90); Glucose Level 91 mg/dL (74-106); Magnesium 2.5 mg/dL (1.8-2.4); Potassium 4.2 mmol/L (3.5-5.1); Protein, Total 7.5 g/dL (6.4-8.2); Sodium Level 137 mmol/L (136-145); Troponin High Sensitivity 4.2 pg/mL (<58.9)
[2021-08-06 17:41] LABS: NT PRO-BNP < 5 pg/mL (<125)
[2021-08-06] MEDS ORDERED: NA CHLORIDE 0.9% 1,000 ML ONE (18:00)
--- NOTE | 2021-08-06 18:30 | RAD REPORT ---
EXAM DESCRIPTION: US - Extrem Venous W Compress Liban - 08/06/2021 6:22 pm CLINICAL HISTORY: PAIN COMPARISON: Extrem Venous W Compress Liban dated 05/17/2021 TECHNIQUE: Real-time sonographic evaluation of the lower extremity deep venous systems was performed using color Doppler, grayscale, and compression. FINDINGS: Bilateral lower extremities. Normal compressibility, flow augmentation, phasic flow and spontaneous flow is identified in both the left and right lower extremity deep venous systems. No intraluminal filling defects seen. IMPRESSION: No DVT in either lower extremity.
[2021-08-06 18:35] LABS: White Blood Cell Scan OK (OK)
[2021-08-06 18:36] LABS: Blood Morphology Comment NOT SEEN (NOT SEEN); Platelet Estimate ADEQ
--- NOTE | 2021-08-06 18:56 | RAD REPORT ---
EXAM DESCRIPTION: CT - Chest For Pe Angio - 08/06/2021 6:41 pm CLINICAL HISTORY: CP/SOB COMPARISON: Chest For Pe Angio dated 07/28/2021; Chest For Pe Angio dated 05/17/2021; Chest For Pe Annabel o dated 05/08/2021; THORAX WO CONTRAST dated 01/29/2011 FINDINGS: Chest Wall: No suspicious thyroid nodules or pathologic lymphadenopathy. Lungs: No acute abnormality. Pleura: No significant effusions or pneumothorax. Mediastinum/blake: No pathologic lymphadenopathy. Pulmonary arteries/Aorta: Suboptimal contrast opacification of the pulmonary arteries results in some mixing artifact but no evidence of a pulmonary embolus. No filling defect identified. No aortic aneu rysm. Heart: No significant pericardial effusion. Normal heart size. Upper abdomen: No acute abnormality. Low-density lesion in the right hepatic lobe is likely benign. T his is unchanged. Bones: No acute abnormality. All CT scans are performed using dose optimization technique as appropriate and may include automated exposure control or mA/KV adjustment according to patient size. IMPRESSION: Negative for pulmonary embolism. No significant change compared with 07/28/2021.
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
[2021-08-06 20:43] VITALS: TEMP 97.7
[2021-08-06 20:50] VITALS: BP 125/88; O2SAT 97
--- NOTE | 2021-08-07 07:19 | EKG ---
Test Date: 2021-08-06 Test Time: 16:28:04 Head Irrigator: KARLA MEASUREMENT RESULTS: Intervals: Rate: 72 NC: 158 QRSD: 82 QT: 354 QTc: 387 [place]: P: 13 NC: 158 QRS: 58 T: 41 INTERPRETIVE STATEMENTS: Normal sinus rhythm Normal ECG Compared to ECG 07/31/2021 22:35:24 No significant changes Electronically Signed On 08-07-21 07:17:18 CDT by Cj Anderson
== END 2021-08-06 20:36 | disposition home or self-care (01) ==
LOC: ER 16:23
DX: R07.9 Chest pain, unspecified (principal); F55.8 Abuse of other non-psychoactive substances; G82.20 Paraplegia, unspecified; Z72.0 Tobacco use; Z88.5 Allergy status to narcotic agent; Z88.8 Allergy status to other drugs, medicaments and biological substances
CPT/HCPCS: 85025; 80048; 36415; 83735; 85610; 85379; 80076; 84484; 83880; 71275; 71045; 93970; Q9967; J7030; 93005

== ENCOUNTER 2021-08-11 12:48 | Emergency (ER) | payer OTHER ==
--- OUTSIDE RECORDS SUMMARY | 2021-08-11 12:57 | XMS REPORT | Continuity of Care Document ---
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 to 5 Years) and At-Risk Patients (6 to 64 Years) (1 - PCV) [code = Pneumococcal Vaccine: Pediatrics (0 to 5 Years) and At-Risk Patients (6 to 64 Years) (1 - PCV)] Future Scheduled 2021-07-02 Hepatitis C screening [facility] Test 10:04:06 (procedure) [code = [id number]] Future Scheduled 2021-07-02 COVID-19 VACCINE (3 - [facility] Test 10:04:06 Booster) [code = COVID-19 VACCINE (3 - Booster)] Future Scheduled 2021-07-02 INFLUENZA VACCINE Method [facility] Test 10:04:06 [code = INFLUENZA VACCINE] Future Scheduled 2021-07-02 Pneumococcal Vaccine: [facility] Test 10:04:06 Pediatrics (0 to 5 Years) and At-Risk Patients (6 to 64 Years) (1 - PCV) [code = Pneumococcal Vaccine: Pediatrics (0 to 5 Years) and At-Risk Patients (6 to 64 Years) (1 - PCV)] Future Scheduled 2021-07-02 Hepatitis C screening [facility] Test 10:04:06 (procedure) [code = [id number]] Future Scheduled 2021-07-02 COVID-19 VACCINE (3 - [facility] Test 10:04:06 Booster) [code = COVID-19 VACCINE (3 - Booster)] Future Scheduled 2021-07-02 [facility]ZA VACCINE [facility] Test 10:04:06 [code = INFLUENZA VACCINE] Future Scheduled 2021-07-02 Pneumococcal Vaccine: [facility] Test 10:04:06 Pediatrics (0 to 5 Years) and At-Risk Patients (6 to 64 Years) (1 - PCV) [code = Pneumococcal Vaccine: Pediatrics (0 to 5 Years) and At-Risk Patients (6 to 64 Years) (1 - PCV)] Future Scheduled 2021-07-02 Hepatitis C screening [facility] Test 10:04:06 (procedure) [code = [id number]] Future Scheduled 2021-07-02 COVID-19 VACCINE (3 - [facility] Test 10:04:06 Booster) [code = COVID-19 VACCINE (3 - Booster)] Future Scheduled 2021-07-02 [facility]ZA VACCINE [facility] Test 10:04:06 [code = INFLUENZA VACCINE] Future Scheduled 2021-07-02 Pneumococcal Vaccine: [facility] Test 10:04:06 Pediatrics (0 to 5 Years) and At-Risk Patients (6 to 64 Years) (1 - PCV) [code = Pneumococcal Vaccine: Pediatrics (0 to 5 Years) and At-Risk Patients (6 to 64 Years) (1 - PCV)] Future Scheduled 2021-07-02 Hepatitis C screening [facility] Test 10:04:06 (procedure) [code = 042391248] Future Scheduled 2021-07-02 COVID-19 VACCINE (3 - [facility] Test 10:04:06 Booster) [code = COVID-19 VACCINE (3 - Booster)] Future Scheduled 2021-07-02 [facility]ZA VACCINE [facility] Test 10:04:06 [code = INFLUENZA VACCINE] Future Scheduled 2021-05-23 Hepatitis C screening [facility] Test 21:56:30 (procedure) [code = [id number]] Future Scheduled 2021-05-23 COVID-19 VACCINE (3 - [facility] Test 21:56:30 Booster) [code = COVID-19 VACCINE (3 - Booster)] Future Scheduled 2021-05-23 [facility] Test 21:56:30 [code = INFLUENZA VACCINE] Future Scheduled 2021-05-23 Hepatitis C screening [facility] Test 21:56:30 (procedure) [code = 504772229] Future Scheduled 2021-05-23 COVID-19 VACCINE (3 - [facility] Test 21:56:30 Booster) [code = COVID-19 VACCINE (3 - Booster)] Future Scheduled 2021-05-23 [facility] Test 21:56:30 [code = INFLUENZA VACCINE] Future Scheduled 2021-05-23 Hepatitis C screening [facility] Test 21:56:30 (procedure) [code = 169309792] Future Scheduled 2021-05-23 COVID-19 VACCINE (3 - [facility] Test 21:56:30 Booster) [code = COVID-19 VACCINE (3 - Booster)] Future Scheduled 2021-05-23 INFLUENZA VACCINE Method [facility] Test 21:56:30 [code = INFLUENZA VACCINE] Future Scheduled 2021-01-31 Hepatitis C screening [facility] Test 17:19:18 (procedure) [code = 577398249] Future Scheduled 2021-01-31 INFLUENZA VACCINE Method [facility] Test 17:19:18 [code = INFLUENZA VACCINE] Future Scheduled 2021-01-31 COVID-19 VACCINE (3 - [facility] Test 17:19:18 Booster) [code = COVID-19 VACCINE (3 - Booster)] Future Scheduled 2021-01-31 Hepatitis C screening [facility] Test 17:19:18 (procedure) [code = 407909516] Future Scheduled 2021-01-31 INFLUENZA VACCINE Method is Hospital Test 17:19:18 [code = INFLUENZA VACCINE] Future Scheduled 2021-01-31 COVID-19 VACCINE (3 - Me [facility] Test 17:19:18 Booster) [code = COVID-19 VACCINE (3 - Booster)] Encounters Start End Encounter Admission Attending Care Care Encounter Source Date/Time Date/Time Type Type Clinicians Facility Department ID 2021-06-23 Outpatient [facility] [id number] MD 01:45:03 [id number] [facility] 2021-03-14 Outpatient [id number] ENCPL CARLENE ENCPL 13:33:41 12212021-03-14 Outpatient [id number] ENCPL REF ENCPL 13:33:01 2021-02-11 Inpatient JOSEI, [facility] [id number] H arris 00:00:00 [facility] 2021-01-24 Inpatient VIKASH, [facility] [id number] [place] 07:00:09 FIORELLAAVALON [facility] 2021-01-22 Inpatient [facility] [id number] H arris 00:00:00 [facility] 2021-01-21 Inpatient [facility] [id number] H arris 00:00:00 [facility] 2021-01-20 Inpatient [facility] [id number] H arris 00:00:00 Health 2021-01-18 Inpatient [facility] [id number] H arris 00:00:00 [facility] 2021-01-17 Inpatient [facility] [id number] H arris 00:00:00 [facility] 2021-01-16 Inpatient [facility] [id number] H arris 00:00:00 [facility] 2021-01-15 Inpatient YULI, [facility] [id number] [place] 00:00:00 [facility] 2021-01-13 Inpatient [facility] [id number] H arris 00:00:00 [facility] 2021-01-12 Inpatient [facility] [id number] H arris 00:00:00 [facility] 2021-01-11 Inpatient [facility] [id number] H arris 00:00:00 [facility] 2021-01-10 Inpatient [facility] [id number] H arris 00:00:00 [facility] 2021-01-09 Inpatient [facility] [id number] H arris 00:00:00 [facility] 2021-01-08 Inpatient YULI, [facility] [id number] [place] 00:00:00 [facility] 2021-01-06 Inpatient [facility] [id number] H arris 00:00:00 [facility] 2021-01-05 [facility] [id number] [place] 00[facility]:00 [facility] 2021-01-04 [facility] [id number] [place] 00:00:00 [facility] 2021-01-03 [facility] [id number] [place] 00:00:00 [facility] 2021-01-02 Inpatient [facility] [id number] H arris 00:00:00 [facility] 2020-12-30 Inpatient 1 MAREK, [facility] [id number] H arris 22:32:00 BUSHRA Reid 2020-12-30 [facility] [id number] [place] 00:00:00 [facility] 2020-12-30 [facility] [id number] [place] 00:00:00 [facility] 2021-08-09 2021-08-09 Outpatient GC_BAHC_Tod PRIV PRIV [id number] [facility] 12:22:00 12:22:00 Schuyler [id number] [facility] 2021-08-08 2021-08-08 Outpatient GC_BAHC_Tod PRIV PRIV [id number] [facility] 04:53:00 04:53:00 Schuyler [id number] [facility] 2021-08-05 2021-08-05 Outpatient GC_BAHC_Tod PRIV PRIV [id number] [facility] 11:07:00 11:07:00 d_J [id number] [facility] 2021-08-02 2021-08-02 Outpatient GC_BAHC_Tod PRIV PRIV [id number] [facility] 09:06:00 09:06:00 d_J [id number] [facility] 2021-07-30 2021-07-30 Outpatient GC_BAHC_Tod PRIV PRIV [id number] [facility] 03:48:00 03:48:00 d_J [id number] [facility] 2021-07-30 2021-07-30 Outpatient Michael, PRIV PRIV [id number] 00:00:00 00:00:00 Marina [id number] 2021-07-26 2021-07-26 Outpatient GC_BAHC_Tod PRIV PRIV [id number] [facility] 08:05:00 08:05:00 d_J [id number] [facility] 2021-07-26 2021-07-26 Outpatient Michael, PRIV PRIV [id number] 00:00:00 00:00:00 Marina [id number] 2021-07-20 2021-07-20 Outpatient GC_BAHC_Tod PRIV PRIV [id number] [facility] 10:41:00 10:41:00 d_J [id number] Medica [facility] 2021-07-18 2021-07-18 Outpatient GC_BAHC_Tod PRIV PRIV [id number] [facility] 02:03:00 02:03:00 d_J [id number] Medica [facility] 2021-07-18 2021-07-18 Outpatient Lilyl, PRIV PRIV [id number] 00:00:00 00:00:00 Jonah Jose [id number] 0630-05-30 2021-07-15 Outpatient GC_BAHC_Tod PRIV PRIV [id number] [facility] 10:43:00 10:43:00 d_J [id number] Medica l 2021-07-11 2021-07-11 Outpatient GC_BAHC_Tod PRIV PRIV [id number] [facility] 01:44:00 01:44:00 d_J [id number] Medica l 2021-07-05 2021-07-05 Outpatient GC_BAHC_Tod PRIV PRIV [id number] [facility] 09:29:00 09:29:00 d_J [id number] Medica [facility] 2021-07-05 2021-07-05 Outpatient Michael, PRIV PRIV [id number] 00:00:00 00:00:00 Marina [id number] 2021-07-02 2021-07-02 Outpatient GC_BAHC_Tod PRIV PRIV [id number] [facility] 10:48:00 10:48:00 d_J [id number] [facility] 2021-07-02 2021-07-02 Outpatient Michael, PRIV PRIV [id number] e-[id number] 00:00:00 00:00:00 Marina [id number] 2021-06-30 2021-06-30 Outpatient GC_BAHC_Tod PRIV PRIV [id number] [facility] 06:52:00 06:52:00 d_J [id number] Medica l 2021-06-25 2021-06-25 Outpatient GC_BAHC_Tod PRIV PRIV [id number] [facility] 01:28:00 01:28:00 d_J [id number] Medica [facility] 2021-06-25 2021-06-25 Outpatient Michael, PRIV PRIV [id number] c-[id number] 00:00:00 00:00:00 Marina [id number] 2021-06-23 2021-06-23 Outpatient GC_BAHC_Tod PRIV PRIV [id number] [facility] 10:46:00 10:46:00 d_J [id number] Medica l 2021-06-18 2021-06-18 Outpatient GC_BAHC_Tod PRIV PRIV [id number] [facility] 01:40:00 01:40:00 d_J [id number] Medica l 2021-06-14 2021-06-14 Outpatient GC_BAHC_Tod PRIV PRIV [id number] [facility] 08:35:00 08:35:00 d_J [id number] Medica l 2021-06-14 2021-06-14 Outpatient Michael, PRIV PRIV [id number] 00:00:00 00:00:00 Marina [id number] 0945-04-26 2021-06-11 Outpatient GC_BAHC_Tod PRIV PRIV [id number] [facility] 09:50:00 09:50:00 d_J [id number] Medica l 2021-06-11 2021-06-11 Outpatient Michael, PRIV PRIV [id number] 00:00:00 00:00:00 Marina [id number] 2021-06-06 2021-06-06 Outpatient GC_BAHC_Tod PRIV PRIV [id number] [facility] 01:01:00 01:01:00 d_J [id number] Medica l 2021-06-05 2021-06-05 Outpatient GC_BAHC_Tod PRIV PRIV [id number] [facility] 03:19:00 03:19:00 d_J [id number] Medica l 2021-06-04 2021-06-04 Outpatient GC_BAHC_Tod PRIV PRIV [id number] [facility] 01:42:00 01:42:00 d_J [id number] Medica l 2021-06-04 2021-06-04 Outpatient Michael PRIV PRIV [id number] 00:00:00 00:00:00 Marina [id number] 2021-05-30 2021-05-30 Outpatient GC_BAHC_Tod PRIV PRIV [id number] [facility] 11:28:00 11:28:00 d_J [id number] Medica l 2021-05-30 2021-05-30 Outpatient Lilly, PRIV PRIV [id number] 00:00:00 00:00:00 Jonah Jose [id number] 2021-05-282021-05-28 Outpatient GC_BAHC_Tod PRIV PRIV [id number] [facility] 01:25:00 01:25:00 d_J [id number] Medica l 2021-05-28 2021-05-28 Outpatient Michael, PRIV PRIV [id number] 00:00:00 00:00:00 Marina [id number] 2021-05-27 2021-05-27 Outpatient GC_BAHC_Tod PRIV PRIV [id number] [facility] 03:48:00 03:48:00 d_J [id number] Medica l 2021-05-24 2021-05-24 Outpatient GC_BAHC_Spa PRIV PRIV [id number] [facility] 04:32:00 04:32:00 Samuel [id number] Medica l 2021-05-07 2021-05-08 Outpatient Jagjit [facility] [id number] [facility] 08:26:00 04:30:00 MARTIN [facility] 2021-05-07 2021-05-08 Emergency Tono Roberto [facility] [id number]. [id number] [facility] 08:26:00 04:30:00 Martin Clay [facility] [id number] [address] 2021-03-28 2021-03-28 Outpatient LORENE [facility] [id number] [place] 00:00:00 00:00:00 GALE maldonado 2021-03-20 2021-03-20 Outpatient PASCUAL MAHAN [facility] [id number] [place] 00:00:00 00:00:00 [facility] 2020-12-30 2021-02-28 Inpatient MAREK, [facility] DASHA [id number] [place] 22:32:00 18:41:00 BUSHRA Heal 2020-12-30 2021-02-28 Inpatient MAREK, [facility] DASHA [id number] [place] 22:32:00 18:41:00 BUSHRA Heal 2021-02-15 2021-02-15 Inpatient [facility] [id number] [place] 10:50:13 11:18:57 Health 2021-02-14 2021-02-14 Inpatient [facility] [id number] [place] 16:43:15 18:41:33 Health 2021-02-14 2021-02-14 Inpatient [facility] [id number] [place] 07:24:16 09:18:07 Health 2021-01-31 2021-01-31 Inpatient [facility] [id number] [place] 01:03:14 03:25:48 Health 2021-01-25 2021-01-25 Inpatient [facility] [id number] [place] 01:35:50 03:05:16 [facility] 2021-01-23 2021-01-23 Inpatient [facility] [id number] [place] 02:10:17 04:59:36 Health 2021-01-21 2021-01-21 Inpatient VIKASH, [facility] [id number] [place] 15:43:59 16:18:10 [facility] 2021-01-13 2021-01-13 Inpatient [facility] [id number] [place] 16:20:12 17:12:27 [facility] 2021-01-07 2021-01-07 Inpatient [facility] [id number] [place] 18:28:43 18:28:46 Health 2021-01-07 2021-01-07 Inpatient [facility] [id number] [place] 00:12:42 01:07:25 [facility] 2021-01-04 2021-01-04 Inpatient [facility] [id number] [place] 17:11:58 18:14:36 [facility] 2021-01-04 2021-01-04 Inpatient KARYN, [facility] [id number] [place] 13:40:49 15:55:44 [facility] 2021-01-03 2021-01-03 Inpatient [facility] [id number] [place] 17:58:59 17:59:03 [facility] 2021-01-01 2021-01-01 Inpatient [facility] [id number] [place] 16:44:03 16:44:07 [facility] 2021-01-01 2021-01-01 Inpatient CARTER, [facility] [id number] [place] 08:36:00 09:12:12 [facility] 2021-01-01 2021-01-01 Inpatient [facility] [id number] [place] 07:46:21 08:35:30 Health 2021-01-01 2021-01-01 Inpatient YULI, [facility] [id number] [place] 02:09:24 03:31:22 GRISEL [facility] 2020-12-31 2020-12-31 Inpatient MAREK, [facility] [id number] [place] 05:17:16 06:34:53 BUSHRA Booker 2020-12-31 2020-12-31 Inpatient [facility] [id number] [place] 01:50:33 06:34:15 [facility] 2020-12-31 2020-12-31 Inpatient [facility] [id number] [place] 03:50:31 04:54:13 [facility] 2020-12-31 2020-12-31 Inpatient [facility] [id number] [place] 01:43:22 04:38:47 [facility] 2020-12-30 2020-12-30 Emergency [facility] [id number] [place] 22:46:36 23:04:47 [facility] 2020-12-30 2020-12-30 Emergency [facility] [id number] [place] 22:46:20 23:04:03 [facility] 2020-12-30 2020-12-30 Emergency [facility] [id number] [place] 22:47:41 23:03:11 [facility] 2020-12-30 2020-12-30 Emergency LAKHWINDER, [facility] [id number] [place] 00:00:00 00:00:00 [facility] 2020-12-20 2020-12-20 Emergency AURE Triplett [facility] [id number] [facility] 06:26:00 16:34:[address] [place] [address] 2020-11-15 2020-11-16 Emergency Eusebia Ruelas 1.2.840 .1 [id number] Methodi 00:55:00 14:35:00 William Nunes [id number] Mio Sorensen 3.430.2.7 Hospita .3.645697 l .8 2020-11-14 2020-11-14 Emergency Manju 1.2.840.1 [id number] Methodi 15:47:00 16:03:00 William Langston [id number] 3.430.2.7 Hospit a .3.577500 l .8 2020-10-22 2020-10-24 [facility] Dennis Wynn 1.2.840.1 [id number] Methodi 16:52:00 16:26:00 Encounter Pepito Gordillo [id number] [facility] 3.430.2.7 [facility] .[id number] l .8 2020-10-16 2020-10-16 Emergency EM Crismon, [facility] MALIKA [id number] [facility] 00:20:00 08:00:00 Gale [facility] 2020-10-06 2020-10-06 Emergency EM Zia, HCAKW MALIKA [id number] [facility] 01:57:00 20:14:00 [facility] 71 [facility] 2020-09-05 2020-09-05 Emergency EM Michael Montero [facility] MALIKA [id number] [facility] 11:17:00 18:22:00 21 [facility] 2020-09-03 2020-09-03 Emergency EM Pardo, [facility] MALIKA [id number] [facility] 03:35:00 15:00:00 Farhad 97 [facility] 2020-09-02 2020-09-03 Emergency EM Michael Montero [facility] MALIKA [id number] [facility] 23:16:00 01:53:00 82 [facility] 2020-08-11 2020-08-12 [facility] MAL[facility] [id number] [facility] 11:12:00 00:40:00 Naim 18 [facility] 2020-07-12 2020-07-12 Emergency [facility] [id number] [facility] 03:16:00 05:05:00 Michael Nichols 350.1.13.10 [facility] 4.2.7.2.686 [facility] [id number] [facility] 0[address] [place] 2020-07-12 2020-07-12 Emergency Yarima, [facility] [id number] 03:16:00 05:05:00 Michael Vizcarra Magdalena 350.1.13.10 [place] 4.2.7.2.686 [place] [id number] 2020-07-12 2020-07-12 Emergency [facility] [id number] [facility] 03:16:00 03:16:00 MICHAEL pinto [facility] 2019-08-29 2019-09-01 Inpatient [facility] MALIKA [id number] [facility] 22:17:00 04:16:38 62 [facility] 2019-06-22 2019-06-24 Inpatient [facility] MALIKA [id number] [facility] 13:23:00 06:39:56 74 [facility] 2019-02-21 2019-02-21 Outpatient [facility] [id number] [place] 00:00:00 00:00:00 [facility] 2019-02-19 2019-02-19 Emergency [facility] TAMEKA [id number] 07:23:00 07:23:00 [facility] 2019-02-01 2019-02-01 Outpatient [facility] MED [id number] [place] 22:11:49 22:11:49 [facility] 2018-11-04 2018-11-05 Emergency [facility] [id number] 20:38:48 05:13:00 [facility] [id number] [place] [id number] [place] [address] [id number] [facility] 2018-11-04 2018-11-05 Emergency [facility] [id number] [facility] 20:38:48 05:13:00 [facility] [id number] janak [place] 4[address] [place] [address] [id number] 2018-10-18 2018-10-18 Emergency [facility] MED [id number] [place] 06:08:40 06:08:40 Health 2017-04-02 2017-04-02 Outpatient [facility] [id number] [place] 00:00:00 00:00:00 [facility] 2017-03-29 2017-03-29 Emergency [facility] [id number] [place] 00:00:48 00:00:48 Health 2017-03-22 2017-03-22 Emergency Art SINGH, [facility] MED [id number] 11:46:00 11:46:00 [facility] 2017-03-16 2017-03-20 Inpatient Art [facility] MED [id number] [address] 20:46:00 13:41:00 Jonathon DIOP M.D. [facility] 2017-01-26 2017-01-26 Outpatient [facility] [id number] 15 [facility] 00:00:00 00:00:00 Results Test Description [...] 42-121 N code = ALKP) CBC W/AUTO [id number] 03:12:00 Test Item Value Reference Range Interpretation [...] BA#) 0.0 x10 3/uL 0.0-0.1 N TROPONIN [id number] 04:00:37 Test Item Value Reference Interpretation Comments Range TROPONIN I (test 0.000 ng/mL See_Comment [Automated code = 2762169013) message] The system which generated this result [...] biotin. Lab Interpretation Normal (test code = 38411-5) [facility]IM[facility] [id number] 00:46:10 Test Item Value Reference Range Interpretation Comments ESR (test code = See_Comment H [Automated message] [id number]) The system Squareknot generated this result transmitted ref erence range: 0 - 10 m m/HR. The reference r johan was not used to interpret this result as normal/abnor mal. Lab Interpretation (test Abnormal code = 31762-3) [facility]lake[facility]YCOSYL[facility] HEMOGLOBIN (A1C)2021-05-07 20:23:40 Test Item Value Reference Range Interpretation Comments HGB A1C (test code = 5.3 % 4.0-5.7 4548-4) GEORGIE (test code = GEORGIE) Reference RangesNormal: <5.7%Prediabetes: 5.7 - 6.4%Diabetes: > 6.5% Lab Interpretation (test Normal code = 89282-2) [facility]lake[facility] METABOLIC PANEL (91810)2021-05-07 16:11:59 Test Item Value Reference Range Interpretation Comments NA (test code = 139 mmol/L 135-145 7443782767) K (test code = 3.9 mmol/L 3.5-5.0 0824375877) CL (test code = 101 mmol/L 98-108 4057791925) CO2 TOTAL (test code = 23 mmol/L 23-31 8315922084) AGAP (test code = 2-16 0297018787) BUN (test code = 13 mg/dL 7-23 7182862283) GLUCOSE (test code = 92 mg/dL 70-110 9898498774) CREATININE (test code = 0.40 mg/dL 0.60-1.25 L 6896354024) TOTAL BILI (test code = 1.6 mg/dL 0.1-1.1 H 7449698759) CALCIUM (test code = 9.6 mg/dL 8.6-10.6 2926530015) T PROTEIN (test code = 7.7 g/dL 6.3-8.2 0959300782) ALBUMIN (test code = 4.6 g/dL 3.5-5.0 2193185643) ALK PHOS (test code = 91 U/L 34-122 5389428973) ALTv (test code = 24 U/L 5-50 1742-6) AST(SGOT) (test code = 31 U/L 13-40 1292651849) eGFR (test code = mL/min/1.73m2 1506044424) GEORGIE (test code = GEORGIE) Association of [...] tests). Lab Interpretation Abnormal (test code = 81816-4) [facility]lakeACTIV[facility] PARTIAL THRMPLAS [id number] 15:52:36 Test Item Value Reference Range Interpretation [...] seconds. Lab Interpretation Normal (test code = 87239-5) [facility]lakePROTHROMBIN TIME / [id number] 15:50:30 Test Item Value Reference Range Interpretation [...] tions. Lab Interpretation (test Normal code = 75037-0) [facility]lakeCBC WITH [id number] 15:42:54 Test Item Value Reference Range Interpretation Comments WBC (test code = See_Comment [Automated 3890-2) message] The sy stem which generated this result transmitted reference range : 4.20 - 10.70 10*3/?L. The reference range was not used to interpret this result as normal/abnormal . RBC (test code = See_Comment [Automated 519-8) message] The sy stem which generated this [...] RDW-SD (test code = 44.1 fL 38.5-51.6 25909-1) RDW-CV (test code = 13.3 % 12.1-15.4 788-0) PLT (test code = See_Comment [Automated 777-3) message] The sy stem which generated this result transmitted reference range : 150 - 328 10*3/ ?L. The reference r johan was not used to interpret this result as normal/abnormal . MPV (test code = 9.7 fL 9.8-13.0 L 50936-6) NRBC/100 WBC (test See_Comment [Automat ed code = 9152154225) message] The system which generated this result transmitted reference range : 0.0 - 10.0 /100 WBCs. The refer ence range was not u sed to interpret th is result as normal/abnormal . NRBC x10^3 (test code <0.01 See_Comment [Auto mated = 7664821277) message] The s ystem which generated this result transmitted reference range : 10*3/?L. The reference range was not used to interpret this result as normal/abnormal . GRAN MAT (NEUT) % 77.6 % (test code = 770-8) IMM GRAN % (test code 0.60 % = 3628655289) LYMPH % (test code = 13.7 % 736-9) MONO % (test code = 7.7 % 5905-5) EOS % (test code = 0.2 % 713-8) BASO % (test code = 0.2 % 706-2) GRAN MAT x10^3(ANC) 7.68 10*3/uL 1.99-6.95 H (test code = 4602317141) IMM GRAN x10^3 (test 0.06 10*3/uL 0.00-0.06 code = 4815816527) LYMPH x10^3 (test code 1.35 10*3/uL 1.09-3.23 = 731-0) MONO x10^3 (test code 0.76 10*3/uL 0.36-1.02 = 742-7) EOS x10^3 (test code = <0.03 0.06-0.53 L 711-2) BASO x10^3 (test code <0.03 0.01-0.09 = 704-7) Lab Interpretation Abnormal (test code = 98126-9) [facility]lake[facility]ARS-CoV-2 ORF1ab Resp Ql [id number] 19:38:49 Test Item Value Reference Range Interpretation Comments Hospitalized? (test Yes code = 51084-9) ICU? (test code = No 52011-7) Symptomatic as defined No by CDC? (test code = 17716-2) Employed in No Healthcare? (test code = 69795-1) Resident in a No congregate care setting (including nursing homes, residential care for people with intellectual and developmental disabilities, psychiatric treatment facilities, group homes, board and care homes, homeless senior living, foster care or other): (test code = 09383-3) SARS-CoV-2 ORF1ab Resp NOT DETECTED Not Detected INTER PRETATION: No Ql BETY+probe (test detectabl e levels code = 41312-2) of SARS-CoV- 2 Coronavirus (COVID-19) were present [...] Hologic Aptima SARS-CoV-2 molecular diagnostic assay utilizes Commissioning Manager Mediated Amplification (TMA) technology to rapidly detect the SARS-CoV-2 (COVID-19) virus from respiratory samples. In accordance with the FDA's guidance document "Policy for Diagnostic Tests for Coronavirus Disease- 2019 during the Public Health Emergency", this test was developed, and its performance characteristics were verified by the [facility] molecular diagnostics laboratory and is authorized for clinical diagnostic use. This laboratory is certified under the Clinical Laboratory Improvement Amendments (CLIA) as qualified to perform high complexity clinical laboratory testing.SARS-CoV-2 RNA Resp Ql [id number] 22:20:00 Test Item Value Reference Range Interpretation Comments Hospitalized? (test Yes code = 50526-9) ICU? (test code = No 88596-7) Symptomatic as defined No by CDC? (test code = 48227-3) Employed in Unknown Healthcare? (test code = 52777-3) Resident in a Unknown congregate care setting (including nursing homes, residential care for people with intellectual and developmental disabilities, psychiatric treatment facilities, group homes, board and care homes, homeless senior living, foster care or other): (test code = 72575-1) SARS-CoV-2 RNA Resp Ql NOT DETECTED Not Detected INTER PRETATION: No BETY+probe (test code = detec table levels 21278-8) of SARS-CoV-2 Coronavirus (COVID-19) were present in [...] its performance characteristics were verified by the [facility] molecular diagnostics laboratory and is authorized for clinical diagnostic use. This laboratory is certified under the Clinical Laboratory Improvement Amendments (CLIA) as qualified to perform high complexity clinical laboratory testing.SARS-CoV-2 ORF1ab Resp Ql BETY+[id number] 14:59:31 Test Item Value Reference Range Interpretation Comments Hospitalized? (test Yes code = 95683-7) ICU? (test code = Yes 431144-9) Symptomatic as defined No by CDC? (test code = 04703-1) Employed in No Healthcare? (test code = 81624-4) Resident in a No congregate care setting (including nursing homes, residential care for people with intellectual and developmental disabilities, psychiatric treatment facilities, group homes, board and care homes, homeless senior living, foster care or other): (test code = 82483-3) SARS-CoV-2 ORF1ab Resp NOT DETECTED Not Detected INTER PRETATION: No Ql BETY+probe (test detectabl e levels code = 91833-7) of SARS-CoV- 2 Coronavirus (COVID-19) were present [...] n with SARS-CoV-2 Coronavirus (COVID-19). COMMENT: This TrackDuckima SARS-CoV-2 molecular diagnostic assay utilizes Commissioning Manager Mediated Amplification (TMA) technology to rapidly detect the SARS-CoV-2 (COVID-19) virus from respiratory samples. In accordance with the FDA's guidance document "Policy for Diagnostic Tests for Coronavirus Disease- 2019 during the Public Health Emergency", this test was developed, and its performance characteristics were verified by the [facility] molecular diagnostics laboratory and is authorized for clinical diagnostic use. This laboratory is certified under the Clinical Laboratory Improvement Amendments (CLIA) as qualified to perform high complexity clinical laboratory testing.SARS-CoV-2 RNA Resp Ql BETY+[id number] 00:53:33 Test Item Value Reference Range Interpretation Comments Hospitalized? (test code Yes = 24464-0) ICU? (test code = No 22051-6) Symptomatic as defined No by CDC? (test code = 04290-4) Employed in Healthcare? No (test code = 28596-0) Resident in a congregate No care setting (including nursing homes, residential care for people with intellectual and developmental disabilities, psychiatric treatment facilities, group homes, board and care homes, homeless senior living, foster care or other): (test code = 82263-0) ? (test code = No 60021-6) SARS-CoV-2 RNA Resp Ql DETECTED Not Detected A INTER PRETATION: This BETY+probe (test code = [place] sample [place] 36538-7) detectable RNA present for the SARS-CoV-2 Coronavirus [...] its performance characteristics were verified by the [facility] molecular diagnostics laboratory and is authorized [...] NONE A MUCU) DRUGS OF ABUSE SCREEN [id number] 13:19:00 Test Item Value Reference Interpretation Comments [...] this result as normal/abnormal . BASIC METABOLIC [id number] 09:24:00 Test Item Value Reference Range Interpretation [...] this result as normal/abnormal . HEPATIC FUNCTION [id number] 09:24:00 Test Item Value Reference Range Interpretation [...] 59 Unit/L 45-117 N code = ALKP) [id number] 09:24:00 Test Item Value Reference Range Interpretation Comments ACETAMINOPHEN (test code = ACET) <2.0 mcG/ML 10.0-30.0 L [id number] 09:24:00 Test Item Value Reference Range Interpretation Comments ALCOHOL (test code = < 3 MG/DL 0-10 N MEDICAL ALCOHOL ALC) RESULTS. SITE W PREPPED WITH BE TADINE. <10 MG/DL ARE CONSIDERED NEGA TIVE. >400 MG/DL MAY BE FATAL.RESULTS F OR MEDICAL USE ONL Y. NOT TO BE USED FOR FORENSIC PURPOSES. [id number] 07:55:00 Test Item Value Reference Range Interpretation Comments SALICYLATE (test code < 1.7 MG/DL See_Comment L RESULT <2.8 IS = SMITH) CONSIDERED NEGA TIVE FOR SALICYLATE. [Automated mess age] The system Squareknot generated this result transmitted ref erence range: 2.8-20.0 THER. The reference r johan was not used to interpret this result as normal/abnor mal. CBC W/AUTO [id number] 07:10:00 Test Item Value Reference Range Interpretation [...] 0.00 K/mm3 0.00-0.05 N NRBC#) ECG 12 [id number] 22:52:05 Test Item Value Reference Range Interpretation Comments Ventricular rate (test code = 253) Atrial rate (test code = 255) MN interval (test code = 266) QRSD interval [...] Judge MD ([id number]) on 11/26/2020 5:52:04 PM [address]2021-10-11 22:52:05 Test Item Value Reference Range Interpretation Comments Ventricular rate (test code = 253) Atrial rate (test code = 255) MN interval (test code = 266) QRSD interval [...] Judge MD ([id number]) on 11/26/2020 5:52:[address]2021-10-11 22:52:05 Test Item Value Reference Range Interpretation Comments Ventricular rate (test code = 253) Atrial rate (test code = 255) MN interval (test code = 266) QRSD interval [...] Judge MD ([id number]) on 11/26/2020 5:52:[address]2021-10-11 22:52:05 Test Item Value Reference Range Interpretation Comments Ventricular rate (test code = 253) Atrial rate (test code = 255) MN interval (test code = 266) QRSD interval [...] available-Electronica lly Signed By Doron Judge MD ([id number]) on 11/26/2020 5:52:[address]2021-10-11 22:52:05 Test Item Value Reference Range Interpretation Comments Ventricular rate (test code = 253) Atrial rate (test code = 255) MN interval (test code = 266) QRSD interval [...] Judge MD ([id number]) on 11/26/2020 5:52:[address]2021-10-11 22:52:05 Test Item Value Reference Range Interpretation Comments Ventricular rate (test code = 253) Atrial rate (test code = 255) MN interval (test code = 266) QRSD interval [...] available-Electronica lly Signed By Doron Judge MD [id number]) on 11/26/2020 5:52:04 [address]2021-10-11 22:52:05 Test Item Value Reference Range Interpretation Comments Ventricular rate (test code = 253) Atrial rate (test code = 255) MN interval (test code = 266) QRSD interval [...] Judge MD ([id number]) on 11/26/2020 5:52:[address]2021-10-11 22:52:05 Test Item Value Reference Range Interpretation Comments Ventricular rate (test code = 253) Atrial rate (test code = 255) MN interval (test code = 266) QRSD interval [...] Judge MD ([id number]) on 11/26/2020 5:52:[address]2021-10-11 22:52:05 Test Item Value Reference Range Interpretation Comments Ventricular rate (test code = 253) Atrial rate (test code = 255) MN interval (test code = 266) QRSD interval [...] Judge MD ([id number]) on 11/26/2020 5:52:[address]2021-10-11 22:52:05 Test Item Value Reference Range Interpretation Comments Ventricular rate (test code = 253) Atrial rate (test code = 255) MN interval (test code = 266) QRSD interval [...] available-Electronica lly Signed By Doron Judge MD ([id number]) on 11/26/2020 5:52:04 PM [facility]2021-09-30 07:28:23 Test Item Value Reference Range Interpretation Comments Urine culture (test SEE COMMENT Bacteriu [place] screen code = 5090516) negative. [facility]2021-09-30 07:28:23 Test Item Value Reference Range Interpretation Comments Urine culture (test SEE COMMENT Bacteriu [place] screen code = 4895486) negative. [facility]2021-09-30 07:28:23 Test Item Value Reference Range Interpretation Comments Urine culture (test SEE COMMENT Bacteriu [place] screen code = 8322818) negative. [facility]2021-09-30 07:28:23 Test Item Value Reference Range Interpretation Comments Urine culture (test SEE COMMENT Bacteriu [place] screen code = 3291291) negative. [facility]2021-09-30 07:28:23 Test Item Value Reference Range Interpretation Comments Urine culture (test SEE COMMENT Bacteriu [place] screen code = 5715819) negative. [facility]2021-09-30 07:28:23 Test Item Value Reference Range Interpretation Comments Urine culture (test SEE COMMENT Bacteriu [place] screen code = 5207345) negative. [facility]2021-09-30 07:28:23 Test Item Value Reference Range Interpretation Comments Urine culture (test SEE COMMENT Bacteriu [place] screen code = 6857563) negative. [place] 935521-09-30 07:28:23 Test Item Value Reference Range Interpretation Comments Urine culture (test SEE COMMENT Bacteriu [place] screen code = 5632644) negative. [place] 935521-09-30 07:28:23 Test Item Value Reference Range Interpretation Comments Urine culture (test SEE COMMENT Bacteriu [place] screen code = 4147096) negative. [facility]2021-09-30 07:28:23 Test Item Value Reference Range Interpretation Comments Urine culture (test SEE COMMENT Bacteriu [place] screen code = 6210989) negative. [facility] HcveiiwlDSVR-MfX-8 (COVID-19) RNA [Presence] in Respiratory specimen by BETY with probe [id number] 02:40:47 Test Item Value Reference Range Interpretation Comments SARS-CoV-2 (COVID-19) RNA Not detected Not-Detected [Presence] in Respiratory specimen by BETY with probe detection (test code = 46138-7) Whether patient is employed in a healthcare setting (test code = 74228-2) Whether the patient has symptoms related to condition of interest (test code = 04054-4) Patient was hospitalized because of this condition (test code = 98399-3) Whether the patient was admitted to intensive care unit (ICU) for condition of interest (test code = 48130-8) Whether patient resides in a congregate care setting (test code = 80654-6) SARS-CoV-2 (COVID-19) RNA [Presence] in Respiratory specimen by BETY with probe [id number] 03:12:16 Test Item Value Reference Range Interpretation Comments SARS-CoV-2 (COVID-19) RNA Not detected Not-Detected [Presence] in Respiratory specimen by BETY with probe detection (test code = 70600-0) Whether patient is employed in a healthcare setting (test code = 97942-2) Whether the patient has symptoms related to condition of interest (test code = 79582-0) Patient was hospitalized because of this condition (test code = 58657-5) Whether the patient was admitted to intensive care unit (ICU) for condition of interest (test code = 79087-5) Whether patient resides in a congregate care setting (test code = 74314-0) BASIC METABOLIC [id number] 09:20:00 Test Item Value Reference Range Interpretation [...] message] (test code = Index/DL The system Squareknot HEMINDEX) generated this result transmit isai reference [...] as normal/abnormal . Specimen comments: CCHEPATIC FUNCTION [id number] 09:20:00 Test Item Value Reference Range Interpretation [...] code = ALKP) Specimen comments: CCTHYROID STIMULATING [id number] 09:20:00 Test Item Value Reference Range Interpretation Comments THYROID STIMULATING HORMONE 0.619 mc IU/ML 0.340-4.820 N (test code = TSH) Specimen comments: [id number] 09:20:00 Test Item Value Reference Range Interpretation [...] troponin levelscharacter istic of [place]. Specimen comments: [id number] 09:20:00 Test Item Value Reference Range Interpretation Comments ACETAMINOPHEN (test code = ACET) <2.0 mcG/ML 10.0-30.0 L Specimen comments: [id number] 09:20:00 Test Item Value Reference Range Interpretation Comments ALCOHOL (test code = < 3 MG/DL 0-10 N MEDICAL ALCOHOL ALC) RESULTS. SITE W PREPPED WITH BE TADINE. <10 MG/DL ARE CONSIDERED NEGA TIVE. >400 MG/DL MAY BE FATAL.RESULTS F OR MEDICAL USE ONL Y. NOT TO BE USED FOR FORENSIC PURPOSES. Specimen comments: [id number] 08:59:00 Test Item Value Reference Range Interpretation Comments SALICYLATE (test code < 1.7 MG/DL See_Comment L RESULT <2.8 IS = SMITH) CONSIDERED NEGA TIVE FOR SALICYLATE. [Automated mess age] The system Squareknot generated this result transmitted ref erence range: 2.8-20.0 THER. The reference r johan was not used to interpret this result as normal/abnor mal. Specimen comments: CCBASIC METABOLIC [id number] 08:55:00 Test Item Value Reference Range Interpretation [...] message] (test code = Index/DL The system BeiBei) generated this result transmit isai reference range [...] this result as normal/abnormal . Specimen comments: [facility] [id number] 08:55:00 Test Item Value Reference Range Interpretation [...] code = ALKP) Specimen comments: CCTHYROID STIMULATING [id number] 08:55:00 Test Item Value Reference Range Interpretation Comments THYROID STIMULATING HORMONE 0.619 mc IU/ML 0.340-4.820 N (test code = TSH) Specimen comments: [id number] 08:55:00 Test Item Value Reference Range Interpretation [...] troponin levelscharacter istic of [place]. Specimen comments: [id number] 08:55:00 Test Item Value Reference Range Interpretation Comments ACETAMINOPHEN (test code = ACET) mcG/ML 10.0-30.0 Specimen comments: [id number] 08:55:00 Test Item Value Reference Range Interpretation Comments ALCOHOL (test code = < 3 MG/DL 0-10 N MEDICAL ALCOHOL ALC) RESULTS. SITE W PREPPED WITH BE TADINE. <10 MG/DL ARE CONSIDERED NEGA TIVE. >400 MG/DL MAY BE FATAL.RESULTS F OR MEDICAL USE ONL Y. NOT TO BE USED FOR FORENSIC PURPOSES. Specimen comments: CCCBC W/AUTO [id number] 08:10:00 Test Item Value Reference Range Interpretation [...] NRBC#) Specimen comments: CC- XR CHEST 1 [id number] 03:12:00 [facility] : 1985 Sex: M FAX: Mahin Smallwood MD [phone] [place]: St: [facility] FAX: Vilma Coker [phone] Patient Name: ARLINE RAO Unit No: [id number] EXAMS: CPT CODE: [id number] XR CHEST 1 V 64319 EXAM: - XR CHEST 1 V HISTORY: [...] HeatherMKM4 Orig Print D/T: S: 10/16/2020 (314) JYOTI Lyubov NAME: RAOARLINE [address] [place] [address] PHYS: [place]IL[place], [place] [address] : 1985 AGE: 35 SEX: M LOC: [facility] PHONE #: [phone] EXAM DATE: 10/16/2020 STATUS: JUDE FERNANDEZ FAX #: [phone] RAD NO: DC Dt: PAGE 1 Signed ReportCOVID 19 Asymptomatic IH [id number] 06:58:00 Test Item Value Reference Range Interpretation Comments COVID 19 Asymptomatic IH AG (test POSITIVE Negative A code = COVNONPUIAG) BASIC METABOLIC [id number] 04:22:00 Test Item Value Reference Range Interpretation [...] 8.3 mg/dL 8.4-10.2 L CA) LIVER FUNCTION [id number] 04:22:00 Test Item Value Reference Range Interpretation [...] U/L 38-126 N (test code = ALKP) [id number] 04:22:00 Test Item Value Reference Range Interpretation Comments ALCOHOL (test code = < 10 mg/dL <10 ALC) ~~~~~~~~~~~~~~~ ~~~~~~~ ~~~~~~~~~~~~~~~ ~~~~~~~ ~~~~~~ RESU LTS ARE TO BE USED FOR MEDICAL PURPOSES ONLY.F OR LEGAL PURPOSES THE SPECIMEN MUST B E COLLECTED BY A CHAINOF CUSTODY. LEGAL TESTING IS NOT PERFORME D BY THIS FACILITY. ~~~~~~~~~~~~~~~ ~~~~~~~ ~~~~~~~~~~~~~~~ ~~~~~~~ ~~~~~~ CBC W/AUTO [id number] 04:08:00 Test Item Value Reference Range Interpretation [...] x10 3/uL 0.0-0.1 N Coronavirus 2019 nCoV [id number] 17:19:00 Test Item Value Reference Range Interpretation Comments Coronavirus 2019 nCoV Bedside (test Negative Neg code = [id number]) [id number] 13:14:00 Test Item Value Reference Range Interpretation Comments SALICYLATE (test code < 1.7 MG/DL See_Comment L RESULT <2.8 IS = SIMTH) CONSIDERED NEGA TIVE FOR SALICYLATE. [Automated mess age] The system Squareknot generated this result transmitted ref erence range: 2.8-20.0 THER. The reference r johan was not used to interpret this result as normal/abnor mal. BASIC METABOLIC [id number] 13:03:00 Test Item Value Reference Range Interpretation [...] this result as normal/abnormal . HEPATIC FUNCTION [id number] 13:03:00 Test Item Value Reference Range Interpretation [...] 87 Unit/L 45-117 N code = ALKP) [id number] 13:03:00 Test Item Value Reference Range Interpretation Comments ACETAMINOPHEN (test code = ACET) <2.0 mcG/ML 10.0-30.0 L [id number] 13:03:00 Test Item Value Reference Range Interpretation Comments ALCOHOL (test code = < 3 MG/DL 0-10 N MEDICAL ALCOHOL ALC) RESULTS. SITE W PREPPED WITH BE TADINE. <10 MG/DL ARE CONSIDERED NEGA TIVE. >400 MG/DL MAY BE FATAL.RESULTS F OR MEDICAL USE ONL Y. NOT TO BE USED FOR FORENSIC PURPOSES. DRUGS OF ABUSE SCREEN [id number] 12:38:00 Test Item Value Reference Interpretation Comments [...] this result as normal/abnormal . BASIC METABOLIC [id number] 12:37:00 Test Item Value Reference Range Interpretation [...] message] (test code = Index/DL The system whharshil h HEMINDEX) generated [...] this result as normal/abnormal . HEPATIC FUNCTION [id number] 12:37:00 Test Item Value Reference Range Interpretation [...] 87 Unit/L 45-117 N code = ALKP) [id number] 12:37:00 Test Item Value Reference Range Interpretation Comments ACETAMINOPHEN (test code = ACET) mcG/ML 10.0-30.0 [id number] 12:37:00 Test Item Value Reference Range Interpretation Comments ALCOHOL (test code = < 3 MG/DL 0-10 N MEDICAL ALCOHOL ALC) RESULTS. SITE W PREPPED WITH BE TADINE. <10 MG/DL ARE CONSIDERED NEGA TIVE. >400 MG/DL MAY BE FATAL.RESULTS F OR MEDICAL USE ONL Y. NOT TO BE USED FOR FORENSIC PURPOSES. CBC W/AUTO [id number] 12:02:00 Test Item Value Reference Range Interpretation [...] code = 0.00 K/mm3 0.00-0.05 N NRBC#) [id number] 23:33:00 Test Item Value Reference Range Interpretation [...] troponin levelscharacter istic of [place]. B-TYPE NATRIURETIC [id number] 19:24:00 Test Item Value Reference Range Interpretation Comments B-TYPE NATRIURETIC PEPTIDE < 30.00 PG/ML 0.00-100.00 N (test code = BNP) URINALYSIS [id number] 15:43:00 Test Item Value Reference Range Interpretation [...] a.STF.VT15 AT 08/11/20 1302DRUGS OF ABUSE SCREEN [id number] 15:43:00 Test Item Value Reference Interpretation Comments [...] A MUCU) PENDING RECEIPT OF SPECIMEN PER a.[facility].VT15 AT 08/11/20 1302DRUGS OF ABUSE SCREEN [id number] 15:43:00 Test Item Value Reference Interpretation Comments [...] HAND 3 + V LT 2020-08-11 13:43:00 [facility] : 1985 Sex: M FAX: Lan Agee MD [phone] [place]: E St: PRE Patient Name: ARLINE RAO Unit No: [id number] EXAMS: CPT CODE: [id number] XR HAND 3 + V LT [address] EXAM: - XR HAND 3 + V [...] CC: Lan Cooper MD Dictated Date/Time: 08/11/2020 (6473)Technologist: Damaris Martinez Transcribed Date/Time: 08/11/2020 (1343) By: [email or web address] Orig Print D/T: S: 08/11/2020 (2466) [facility] NAME: EDMUND RAO [address] PHYS: Lan [place], [place] [address] : 1985 AGE: 34 SEX: M LOC: CASSANDRA PHONE #: [phone] EXAM DATE: 08/11/2020 STATUS: PRE ER FAX #: [phone] RAD NO: DC Dt: PAGE 1 Signed Report- XR CHEST 1 [id number] 13:41:00 [facility] : 1985 Sex: M FAX: Lan Agee MD [phone] [place]: E St: PRE Patient Name: ARLINE RAO Unit No: [id number] EXAMS: CPT CODE: [id number] XR CHEST 1 V 80771 EXAM: - XR CHEST 1 V Location [...] By: [email or web address] Orig Print D/T: S: 08/11/2020 (2338) TATUM Mcarthur NAME: ARLINE RAO [address] [place] [address] PHYS: Lan Mun[place], [place] [address] : 1985 AGE: 34 SEX: M LOC: CASSANDRA PHONE #: [phone] EXAM DATE: 08/11/2020 STATUS: PRE ER FAX #: [phone] RAD NO: DC Dt: PAGE 1 Signed ReportCOMPREHENSIVE METABOLIC [id number] 12:50:00 Test Item Value Reference Range Interpretation [...] (test code = MG Index/DL The system [employer] HEMINDEX) generated this result transmit isai reference [...] to interpret this result as normal/abnormal . [id number] 12:50:00 Test Item Value Reference Range Interpretation [...] s in troponin levelscharacter istic of [place]. [id number] 12:50:00 Test Item Value Reference Range Interpretation Comments ACETAMINOPHEN (test code = ACET) < 2.0 mcG/ML 10.0-30.0 L [id number] 12:50:00 Test Item Value Reference Range Interpretation Comments ALCOHOL (test code = <3 MG/DL 0-10 N MEDICAL ALCOHOL RESULTS. ALC) SITE WAS PREPPE D WITH BETADINE. <10 MG/DL ARE CONSI DERED NEGATIVE. >400 MG/DL MAY BE FATAL.RESULTS F OR MEDICAL USE ONL Y. NOT TO BE USED FOR FOR ENSIC PURPOSES. [id number] 12:39:00 Test Item Value Reference Range Interpretation Comments SALICYLATE (test code 3.1 MG/DL See_Comment N [Auto mated message] = SMITH) The system [employer] generated this result transmitted ref erence range: 2.8-20.0 THER. The reference r johan was not used to interpret this result as normal/abnor mal. COMPREHENSIVE METABOLIC [id number] 12:39:00 Test Item Value Reference Range Interpretation [...] (test code = MG Index/DL The system [employer] HEMINDEX) generated this result transmit isai reference [...] to interpret this result as normal/abnormal . [id number] 12:39:00 Test Item Value Reference Range Interpretation [...] s in troponin levelscharacter istic of [place]. [id number] 12:39:00 Test Item Value Reference Range Interpretation Comments ACETAMINOPHEN (test code = ACET) < 2.0 mcG/ML 10.0-30.0 L [id number] 12:39:00 Test Item Value Reference Range Interpretation Comments ALCOHOL (test code = ALC) MG/DL 0-10 COMPREHENSIVE METABOLIC [id number] 12:34:00 Test Item Value Reference Range Interpretation [...] (test code = MG Index/DL The system [employer] HEMINDEX) generated this result transmit isai reference [...] to interpret this result as normal/abnormal . [id number] 12:34:00 Test Item Value Reference Range Interpretation Comments TROPONIN-I (test code = TROPI) NG/ML 0.000-0.045 [id number] 12:34:00 Test Item Value Reference Range Interpretation Comments ACETAMINOPHEN (test code = ACET) < 2.0 mcG/ML 10.0-30.0 L [id number] 12:34:00 Test Item Value Reference Range Interpretation Comments ALCOHOL (test code = ALC) MG/DL 0-10 CBC W/AUTO [id number] 12:23:00 Test Item Value Reference Range Interpretation [...] 0.00 K/mm3 0.00-0.05 N NRBC#) CBC WITH [id number] 09:49:19 Test Item Value Reference Range Interpretation [...] RDW-SD (test code = 42.9 fL 38.5-51.6 47592-7) RDW-CV (test code = 12.4 % 12.1-15.4 788-0) PLT (test code = See_Comment [Automated 777-3) message] The sy stem which generated this result transmitted reference range : 150 - 328 10*3/ ?L. The reference r johan was not used to interpret this result as normal/abnormal . MPV (test code = 9.8 fL 9.8-13.0 92831-1) NRBC/100 WBC (test See_Comment [Automat ed code = 2776896808) message] The system which generated this result transmitted reference range : 0.0 - 10.0 /100 WBCs. The refer ence range was not u sed to interpret th is result as normal/abnormal . NRBC x10^3 (test code <0.01 See_Comment [Auto mated = 3825531326) message] The s ystem which generated this result transmitted reference range : 10*3/?L. The reference range was not used to interpret this result as normal/abnormal . GRAN MAT (NEUT) % 41.9 % (test code = 770-8) IMM GRAN % (test code 0.20 % = 1026058332) LYMPH % (test code = 40.9 % 736-9) MONO % (test code = 13.7 % 5905-5) EOS % (test code = 3.1 % 713-8) BASO % (test code = 0.2 % 706-2) GRAN MAT x10^3(ANC) 1.89 10*3/uL 1.99-6.95 L (test code = 3945352889) IMM GRAN x10^3 (test <0.03 0.00-0.06 code = 0774257030) LYMPH x10^3 (test code 1.85 10*3/uL 1.09-3.23 = 731-0) MONO x10^3 (test code 0.62 10*3/uL 0.36-1.02 = 742-7) EOS x10^3 (test code = 0.14 10*3/uL 0.06-0.53 711-2) BASO x10^3 (test code <0.03 0.01-0.09 = 704-7) Lab Interpretation Abnormal (test code = 51620-4) [facility] [id number] 09:39:48 Test Item Value Reference Range Interpretation Comments TROPONIN I (test 0.002 ng/mL See_Comment [Automated code = 4942384397) message] The system which generated this result [...] ? Lab Interpretation Normal (test code = 18659-5) [facility]lakeCOMP. METABOLIC PANEL (36688)2020-07-12 09:22:19 Test Item Value Reference Range Interpretation Comments NA (test code = 135 mmol/L 135-145 4656525255) K (test code = 3.6 mmol/L 3.5-5.0 9430837121) CL (test code = 103 mmol/L 98-108 9999979549) CO2 TOTAL (test code = 26 mmol/L 23-31 1957997248) AGAP (test code = 2-16 8377497472) BUN (test code = 17 mg/dL 7-23 8603448698) GLUCOSE (test code = 98 mg/dL 70-110 9012499031) CREATININE (test code = 0.82 mg/dL 0.60-1.25 7899103669) TOTAL BILI (test code = 1.3 mg/dL 0.1-1.1 H 0618767105) CALCIUM (test code = 8.4 mg/dL 8.6-10.6 L 1055715906) T PROTEIN (test code = 6.6 g/dL 6.3-8.2 0575058888) ALBUMIN (test code = 3.7 g/dL 3.5-5.0 5988127022) ALK PHOS (test code = 81 U/L 34-122 4866837866) ALTv (test code = 51 U/L 5-50 H 1742-6) AST(SGOT) (test code = 68 U/L 13-40 H 5373659430) eGFR (test code = mL/min/1.73m2 9122877526) GEORGIE (test code = GEORGIE) Association of [...] tests). Lab Interpretation Abnormal (test code = 83722-2) [facility]lakeLIPASE, [id number] 09:22:14 Test Item Value Reference Range Interpretation Comments LIPASE (test code = 2337348024) 106 U/L 0-220 Lab Interpretation (test code = Normal 99170-2) [facility]lakeaPTT2021-05-27 09:13:54 Test Item Value Reference Range Interpretation [...] seconds. Lab Interpretation Normal (test code = 40554-4) [facility]lakePROTHROMBIN TIME / [id number] 09:11:53 Test Item Value Reference Range Interpretation [...] tions. Lab Interpretation (test Normal code = 98055-9) [facility]lakeCoronavirus 2019 nCoV Pcsfqvc5434-13-68 08:52:00 Test Item Value Reference Range Interpretation Comments Coronavirus 2019 Negative NEGATIVE This test h as been nCoV Bedside (test authorize d by FDA under code = [id number]) an EUA for use byauthorized laboratories; This [...] and/o r diagnosis of CO VID-19 under Ebiescz76 4(b)(1) of the Act, 21 U.S .C. 360bbb-3(b)(1), unless theauthorizatio n is terminated or r evoked sooner. DRUGS OF ABUSE [id number] 03:16:00 Test Item Value Reference Range Interpretation [...] poses (e.g employment testing). DRUGS OF ABUSE [id number] 02:47:00 Test Item Value Reference Range Interpretation [...] (test code = PHENCU) DRUGS OF ABUSE [id number] 02:38:00 Test Item Value Reference Range Interpretation [...] NEGATIVE (test code = PHENCU) BASIC METABOLIC [id number] 02:34:00 Test Item Value Reference Range Interpretation [...] 9.7 mg/dL 8.4-10.2 N CA) LIVER FUNCTION [id number] 02:34:00 Test Item Value Reference Range Interpretation [...] U/L 38-126 N (test code = ALKP) [id number] 02:34:00 Test Item Value Reference Range Interpretation Comments ACETAMINOPHEN (test code = ACET) <10 ug/mL 10-30 L [id number] 02:34:00 Test Item Value Reference Range Interpretation Comments SALICYLATE (test code < 1.0 mg/dL Negati ve <2.0 = SMITH) mg/dLTherapeuti c Range <20 mg/dL [id number] 02:34:00 Test Item Value Reference Range Interpretation Comments ALCOHOL (test code = < 10 mg/dL <10 ALC) ~~~~~~~~~~~~~~~ ~~~~~~~ ~~~~~~~~~~~~~~~ ~~~~~~~ ~~~~~~ RESU LTS ARE TO BE USED FOR MEDICAL PURPOSES ONLY.F OR LEGAL PURPOSES THE SPECIMEN MUST B E COLLECTED BY A CHAINOF CUSTODY. LEGAL TESTING IS NOT PERFORME D BY THIS FACILITY. ~~~~~~~~~~~~~~~ ~~~~~~~ ~~~~~~~~~~~~~~~ ~~~~~~~ ~~~~~~ URINALYSIS [id number] 02:27:00 Test Item Value Reference Range Interpretation [...] this result as normal/abnormal . CBC W/AUTO [id number] 02:18:00 Test Item Value Reference Range Interpretation [...] x10 3/uL 0.0-0.1 N DRUGS OF ABUSE [id number] 06:47:00 Test Item Value Reference Range Interpretation [...] non-medical pur poses (e.g employment testing). URINALYSIS [id number] 06:29:00 Test Item Value Reference Range Interpretation [...] this result as normal/abnormal . BASIC METABOLIC [id number] 03:28:00 Test Item Value Reference Range Interpretation [...] 9.0 mg/dL 8.4-10.2 N CA) LIVER FUNCTION [id number] 03:28:00 Test Item Value Reference Range Interpretation [...] U/L 38-126 N (test code = ALKP) [id number] 03:28:00 Test Item Value Reference Range Interpretation Comments ACETAMINOPHEN (test code = ACET) <10 ug/mL 10-30 L [id number] 03:28:00 Test Item Value Reference Range Interpretation Comments SALICYLATE (test code < 1.0 mg/dL Negati ve <2.0 = SMITH) mg/dLTherapeuti c Range <20 mg/dL [id number] 03:28:00 Test Item Value Reference Range Interpretation Comments ALCOHOL (test code = < 10 mg/dL <10 ALC) ~~~~~~~~~~~~~~~ ~~~~~~~ ~~~~~~~~~~~~~~~ ~~~~~~~ ~~~~~~ RESU LTS ARE TO BE USED FOR MEDICAL PURPOSES ONLY.F OR LEGAL PURPOSES THE SPECIMEN MUST B E COLLECTED BY A CHAINOF CUSTODY. LEGAL TESTING IS NOT PERFORME D BY THIS FACILITY. ~~~~~~~~~~~~~~~ ~~~~~~~ ~~~~~~~~~~~~~~~ ~~~~~~~ ~~~~~~ CBC W/AUTO [id number] 00:30:00 Test Item Value Reference Range Interpretation [...] 3/uL 0.0-0.1 N - CT C-SPINE W/O [id number] 23:37:00 Patient Name: ARLINE RAO Unit No: [id number] EXAMS: CPT CODE: [id number] CT C-SPINE W/O CONT 24053 Location: CT cervical spine, 08/29/19 TECHNIQUE: CT [...] CC: Lan Cooper MD Dictated Date/Time: 08/29/2019 (812) Technologist: Ara Steward CTDI: 16.41 DLP: 366.20 Trnscrpt: 08/29/2019 (3594) [email or web address] TATUM Mcarthur NAME: J[address] PHYS: Lan Munroe MD [place] [address] : 1985 AGE: 33 SEX: M LOC: KarenERS PHONE #: [phone] EXAM DATE: 08/29/2019 STATUS: REG ER FAX #: [phone] RAD #: D/C DT PAGE 1 Signed Report Patient Name: ARLINE RAO Unit No: [id number] EXAMS: CPT CODE: [id number] CT C-SPINE W/O CONT 60595 <Continued> Orig Print D/T: S: 08/29/2019 (5738) TATUM Mcarthur NAME: J[address]EN[address] PHYS: [place] [address] : 1985 AGE: 33 SEX: M LOC: BBlayneERS PHONE #: [phone] EXAM DATE: 08/29/2019 STATUS: REG ER FAX #: [phone] RAD #: D/C DT PAGE 2 Signed Report- CT HEAD/BRAIN W/O [id number] 23:33:00 Patient Name: ARLINE RAO Unit No: [id number] EXAMS: CPT CODE: [id number] CT HEAD/BRAIN W/O CONT 33998 Location: H3 CT head, 08/29/19 COMPARISON EXAMS: [...] 45.96 DLP: 757.79 Trnscrpt: 08/29/2019 (2333) [email or web address] [facility] NAME: ARLINE RAO [address] [place] [address] PHYS: Lan Munroe MD [place], [place] [address] : 1985 AGE: 33 SEX: M LOC: ErnestoDELMI PHONE #:[phone] EXAM DATE: 08/29/2019 STATUS: REG ER FAX #: [phone] RAD #: D/C DT PAGE 1 Signed Report Patient Name: ARLINE RAO Unit No: [id number] EXAMS: CPT CODE: [id number] CT HEAD/BRAIN W/O CONT 69064 <Continued> Orig Print D/T: S: 08/29/2019 (2336) TATUM Lyubov NAME: [address] PHYS: Lan Mun[place], [place] [address] : 1985 AGE: 33 SEX: M LOC: B.ERS PHONE #: [phone] EXAM DATE:08/29/2019 STATUS: REG ER FAX #: [phone] RAD #: D/C DT PAGE 2 Signed ReportCOMPREHENSIVE METABOLIC [id number] 23:28:00 Test Item Value Reference Range Interpretation [...] code = LIPINDEX) MG Index/DL CBC W/AUTO [id number] 23:07:00 Test Item Value Reference Range Interpretation [...] 0.00 K/mm3 0.00-0.05 N NRBC#) BASIC METABOLIC [id number] 14:23:00 Test Item Value Reference Range Interpretation [...] NORMAL code = LIPINDEX) Index/DL HEPATIC FUNCTION [id number] 14:23:00 Test Item Value Reference Range Interpretation [...] 68 Unit/L 45-117 N code = ALKP) [id number] 14:23:00 Test Item Value Reference Range Interpretation Comments ALCOHOL (test code = 3 MG/DL 0-10 N MEDICAL ALCOHOL RESULTS. ALC) SITE WAS PREPPE D WITH BETADINE. <10 MG/DL ARE CONSI DERED NEGATIVE. >400 MG/DL MAY BE FATAL.RESULTS F OR MEDICAL USE ONL Y. NOT TO BE USED FOR FOR ENSIC PURPOSES. BASIC METABOLIC [id number] 14:17:00 Test Item Value Reference Range Interpretation [...] 1 NORMAL = LIPINDEX) Index/DL HEPATIC FUNCTION [id number] 14:17:00 Test Item Value Reference Range Interpretation [...] TOTAL (test code Unit/L 45-117 = ALKP) [id number] 14:17:00 Test Item Value Reference Range Interpretation Comments ALCOHOL (test code = ALC) MG/DL 0-10 CBC W/O [id number] 14:04:00 Test Item Value Reference Range Interpretation [...] = 9.4 fL 7.6-10.4 N MPV) RPR [id number] 14:01:19 Test Item Value Reference Range Interpretation [...] = 12-17-2019 N Expiration Dt) Thyroid Stimulating [id number] 09:09:16 Test Item Value Reference Range Interpretation Comments TSH (test code = TSH) 0.418 mIU/mL 0.270-4.200 Lipid Uehmr5618-15-02 08:59:32 Test Item Value Reference Range Interpretation Comments Cholesterol Total 131 mg/dL 0-200 RISK OF HE ART (test code = DISEASEPublishe d by Cholesterol Total) [employer] Giovanna lyte Optimal Borderl ine [...] LDL/HDL Ratio=L DL Calc/HDL Chol Thyroid Stimulating [id number] 10:03:42 Test Item Value Reference Range Interpretation Comments TSH (test code = TSH) 1.560 mIU/mL 0.270-4.200 Lipid [id number] 09:52:10 Test Item Value Reference Range Interpretation Comments Cholesterol Total 210 mg/dL 0-200 H RISK OF HE ART (test code = DISEASEPublishe d by Cholesterol Total) [employer] Giovanna lyte Optimal Borderl ine [...] is LDL/HDL Ratio=L DL Calc/HDL Chol RPR Putdyqtxcxt1852-94-23 11:37:43 Test Item Value Reference Range Interpretation Comments RPR Qual (test code = RPR Qual) Non-Reactive Non-Reactive Reactive Control (test code = Reactive Reactive Control) Weak Reactive Control (test Weak Reactive code = Weak Reactive Control) Non-Reactive Control (test code Non-Reactive = Non-Reactive Control) Lot # (test code = Lot #) [id number] N Expiration Dt (test code = 12-17-19 N Expiration Dt) Urinalysis [id number] 23:07:47 Test Item Value Reference Range Interpretation Comments UA WBC (test code = UA WBC) None Seen 0-5 UA RBC (test code = UA RBC) None Seen 0-5 UA Bacteria (test code = UA None Seen Bacteria) UA Squam Epithelial (test code = UA 0-5 Squam Epithelial) Comprehensive Metabolic [id number] 22:29:50 Test Item Value Reference Range Interpretation [...] A/G 1.7 ratio N Ratio) Comprehensive Metabolic [id number] 22:29:50 Test Item Value Reference Range Interpretation [...] the National Kidney Foundation, http://nkdep.ni h.gov Alcohol Juzrw4374-88-80 22:29:50 Test Item Value Reference Range Interpretation Comments Ethanol Level (test 0.06 g/dL 0.00-0.01 H Intoxica isai 0.080 g/dL code = Ethanol or more Level) Ethanol Inst (test 58 N code = Ethanol Inst) Comprehensive Metabolic [id number] 22:29:50 Test Item Value Reference Range Interpretation [...] ag e have not been validated by [facility] MDRD study and should be interpreted wit [...] ag e have not been validated by [facility] MDRD study and should be interpreted wit h caution. eGFR R esult Interpretation: eGFR > or = 60 is in the Normal RangeeGF R < 60 may mean kid tran diseaseeGFR < 1 5 may mean kidney failure Rang es recommended by the National Kidney Foundation, http://nkdep.ni h.gov Complete Blood Count with Ywtlvypdptyg5993-86-67 22:14:44 Test Item Value Reference Range Interpretation [...] code = IPF) 0 % N Automated Yidrqrjuexud0553-61-09 22:14:44 Test Item Value Reference Range Interpretation Comments Neutro Auto (test code = Neutro 72.2 % 36.0-70.0 H Auto) Lymph Auto (test code = Lymph Auto) 19.6 % 12.0-44.0 [place] Auto (test code = [place] Auto) 6.9 % 0.0-11.0 Eos, Auto (test code = Eos, Auto) 0.0 % 0.0-7.0 Basophil Auto (test code = Basophil 0.4 % 0.0-2.0 Auto) Neutro Absolute (test code = Neutro 6.1 x10 1.6-7.4 Absolute) Lymph Absolute (test code = Lymph 1.67 x10 .50-4.60 Absolute) [place] Absolute (test code = [place] .59 x10 .00-1.20 Absolute) Eos Absolute (test code = Eos 0.00 x10 0.00-0.74 Absolute) Baso Absolute (test code = Baso 0.03 x10 0.00-0.21 Absolute) IG [id number] 22:14:44 Test Item Value Reference Range Interpretation Comments IG (test code = IG) 0.9 % 0.0-5.0 IG Abs (test code = IG Abs) 0 x10 N Urine Drug [id number] 22:14:38 Test Item Value Reference Range Interpretation [...] if desired . Urinalysis with Microscopic if nqvxnhtzi4239-59-31 21:53:48 Test Item Value Reference Range Interpretation [...] Ind?) rule GL_SJM_UA_MICRO _IN D Urine Drug Cntddp0101-13-31 09:31:28 Test Item Value Reference Range Interpretation [...] matory test if desired . Comprehensive Metabolic Lhmhc3423-52-72 09:17:22 Test Item Value Reference Range Interpretation [...] A/G 2.1 ratio N Ratio) Comprehensive Metabolic Ztsrf4249-79-46 09:17:22 Test Item Value Reference Range Interpretation [...] National Kidney Foundation, http://nkdep.ni h.gov Comprehensive Metabolic Yxogv1645-69-76 09:17:22 Test Item Value Reference Range Interpretation [...] ag e have not been validated by [facility] MDRD study and should be interpreted wit [...] ag e have not been validated by [facility] MDRD study and should be interpreted wit h caution. eGFR R esult Interpretation: eGFR > or = 60 is in the Normal RangeeGF R < 60 may mean kid tran diseaseeGFR < 1 5 may mean kidney failure Rang es recommended by the National Kidney Foundation, http://nkdep.ni h.gov IG Hdwqr8359-04-85 09:08:10 Test Item Value Reference Range Interpretation Comments IG (test code = IG) 0.4 % 0.0-5.0 IG Abs (test code = IG Abs) 0 x10 N Complete Blood Count with Ppilzbgydfgu5980-70-01 09:08:09 Test Item Value Reference Range Interpretation [...] code = IPF) 0 % N Automated Tmoxpwtvcztk2089-02-36 09:08:09 Test Item Value Reference Range Interpretation Comments Neutro Auto (test code = Neutro 73.6 % 36.0-70.0 H Auto) Lymph Auto (test code = Lymph Auto) 17.3 % 12.0-44.0 [place] Auto (test code = [place] Auto) 8.3 % 0.0-11.0 Eos, Auto (test code = Eos, Auto) 0.1 % 0.0-7.0 Basophil Auto (test code = Basophil 0.3 % 0.0-2.0 Auto) Neutro Absolute (test code = Neutro 5.1 x10 1.6-7.4 Absolute) Lymph Absolute (test code = Lymph 1.19 x10 .50-4.60 Absolute) [place] Absolute (test code = [place] .57 x10 .00-1.20 Absolute) Eos Absolute (test code = Eos 0.01 x10 0.00-0.74 Absolute) Baso Absolute (test code = Baso 0.02 x10 0.00-0.21 Absolute) ADC / LCC - DRUG SCREEN [id number] 02:56:00 Test Item Value Reference Range Interpretation Comments BENZO U (test code = Negative Negative 6190497657) EARL U (test code = Negative Negative 9190041773) AMPHET (test code = Presumptive Positive Negative A 7908276007) THC (test code = Negative Negative 9747684598) METHADONE (test code = Negative Negative 6544529798) Meth U (test code = Presumptive Positive Negative A 1117733734) OPIATES (test code = Negative Negative 9781406100) Cocaine Metabolite (test Negative Negative code = 7255768567) PROPOXY (test code = Negative Negative 9214745177) Tric U (test code = Negative Negative 9016024406) PCP (test code = Negative Negative 8427162532) OXYCOD (test code = Negative Negative 6937081173) GEORGIE (test code = GEORGIE) Urine Drug [...] testing). Lab Interpretation (test Abnormal code = 18863-8) [facility] 02:40:00 Test Item Value Reference Range Interpretation Comments ACETAMINOP (test code = <10.0 10-30 L 5873499853) GEORGIE (test code = GEORGIE) Toxic: Greater than 200 ug/mL @ 4 hour post ingestion or greater than 50 ug/mL @ 12 hour post ingestion Lab Interpretation (test Abnormal code = 90037-4) [facility]lakeSalicylate2019 02:40:00 Test Item Value Reference Range Interpretation Comments SALICYLATE (test code <10 mg/L = 1846280275) GEORGIE (test code = GEORGIE) Therapeutic Range:? Analgesic and Antipyretic Use? 20-100 mg/L? Anti-Inflammatory Use? 100-250 mg/LToxic Range:? Greater than 300 mg/L [facility]lakeEth[facility] (ETOH) [id number] 02:40:00 Test Item Value Reference Range Interpretation Comments ALCOHOL (test code = <10 mg/dL 4670217723) GEORGIE (test code = GEORGIE) <10 Vtoyavjb07-169 Toxic>100 Depression of LANGUAGE TRANSLATOR>[address] [facility] Metabolic Panel (NA, K, CL, CO2, Glucose, BUN, Creatinine, CA)2018-11-05 02:35:00 Test Item Value Reference Range Interpretation Comments NA (test code = 142 mmol/L 135-145 1878754872) K (test code = 3.5 mmol/L 3.5-5 3329720165) CL (test code = 107 mmol/L 98-108 6004879538) CO2 TOTAL (test code = 25 mmol/L 23-31 5795593575) AGAP (test code = 2-16 6605636208) BUN (test code = 12 mg/dL 7-23 9442236000) GLUCOSE (test code = 90 mg/dL 70-110 0079027791) CREATININE (test code 0.77 mg/dL 0.6-1.25 = 7980019859) CALCIUM (test code = 9.3 mg/dL 8.6-10.6 8480884885) eGFR Calculation mL/min/1.73m2 (Non-) (test code = 3292871196) eGFR Calculation mL/min/1.73m2 () (test code = 8848054699) GEORGIE (test code = GEORGIE) Association of [...] or abnormalities in imaging tests). [facility]lake[facility]atic Function Panel (ALB, T.PRO, BILI T, BU/BC, ALT, AST, ALK PHOS)2018-11-05 02:35:00 Test Item Value Reference Range Interpretation Comments TOTAL BILI (test code = 4158221225) 1.0 mg/dL 0.1-1.1 BILI UNCON (test code = 6302964202) 0.8 mg/dL 0.1-1.1 BILI CONJ (test code = 9699816535) 0.0 mg/dL 0-0.3 T PROTEIN (test code = 8321420225) 7.0 g/dL 6.3-8.2 ALBUMIN (test code = 7502194437) 4.4 g/dL 3.5-5 ALK PHOS (test code = 8172861072) 71 U/L 34-122 ALT(SGPT) (test code = 7345232531) 39 U/L 9-51 AST(SGOT) (test code = 6603879754) 40 U/L 13-40 Lab Interpretation (test code = Normal 94747-1) [facility] [id number] 02:10:00 Test Item Value Reference Range Interpretation Comments WBC (test code = See_Comment [Automated 6499-2) message] The sy stem which generated this result transmitted reference range : 4.20 - 10.70 10*3/?L. The reference range was not used to interpret this result as normal/abnormal . RBC (test code = See_Comment [Automated 798-8) message] The sy stem which generated this [...] RDW-SD (test code = 46.3 fL 38.5-51.6 00226-0) RDW-CV (test code = 13.1 % 12.1-15.4 788-0) PLT (test code = See_Comment [Automated 777-3) message] The sy stem which generated this result transmitted reference range : 150 - 328 10*3/ ?L. The reference r johan was not used to interpret this result as normal/abnormal . MPV (test code = 9.9 fL 9.8-13 62556-7) NRBC/100 WBC (test See_Comment [Automat ed code = 2442217890) message] The system which generated this result transmitted reference range : 0.0 - 10.0 /100 WBCs. The refer ence range was not u sed to interpret th is result as normal/abnormal . NRBC x10^3 (test code <0.01 See_Comment [Auto mated = 1156167305) message] The s ystem which generated this result transmitted reference range : 10*3/?L. The reference range was not used to interpret this result as normal/abnormal . GRAN MAT (NEUT) % 50.8 % (test code = 770-8) IMM GRAN % (test code 0.60 % = 9324935445) LYMPH % (test code = 33.8 % 736-9) MONO % (test code = 14.4 % 5905-5) EOS % (test code = 0.0 % 713-8) BASO % (test code = 0.4 % 706-2) GRAN MAT x10^3(ANC) 2.62 10*3/uL 1.99-6.95 (test code = 7010074910) IMM GRAN x10^3 (test 0.03 10*3/uL 0-0.06 code = 0509324803) LYMPH x10^3 (test code 1.74 10*3/uL 1.09-3.23 = 731-0) MONO x10^3 (test code 0.74 10*3/uL 0.36-1.02 = 742-7) EOS x10^3 (test code = <0.03 0.06-0.53 L 711-2) BASO x10^3 (test code <0.03 0.01-0.09 = 704-7) Lab Interpretation Abnormal (test code = 77893-3) [facility] [id number] 13:14:00 Test Item Value Reference Range Interpretation [...] by the [employer] Foundation,http ://nkd ep.nih.gov [id number] 13:09:00 Test Item Value Reference Range Interpretation [...] g/dL 0.00-0.01 N code = ETOHU) Urinalysis [id number] 12:59:00 Test Item Value Reference Range Interpretation Comments Color (test code = Yellow Yellow,Straw,Pl N COLOR) yellow Clarity (test code = Clear Clear N CLAR) Specific Tina (test 1.027 1.001-1.035 N code = SPGR) [...] code = Few /HPF BACT) CBC with [id number] 12:42:00 Test Item Value Reference Range Interpretation [...] code = ALYMPH) 2.3 K/cumm 0.5-4.6 N [place] Abs (test code = AMONO) 0.6 K/cumm 0.0-1.2 N Eos Abs (test code = AEOS) 0.09 K/cumm 0.00-0.74 N Baso Abs (test code = ABASO) 0.0 K/cumm 0.00-0.21 N Hepatic Function [id number] 18:55:00 Test Item Value Reference Range Interpretation [...] = ALT) 47 U/L 1-41 H HIV [id number] 12:45:00 Test Item Value Reference Range Interpretation Comments HIV 1/2 Antibody Non-Reactive Non-Reactive N HIV1/2 Anti body screen (test code = result indicate s the HIV1/2AB) absence of HIV1 and GEY3jaxvirhff.H owever, A Non-Reactive screen result does not [...] HIV RNA Quantit ative is recommended. RPR, [id number] 21:30:00 Test Item Value Reference Range Interpretation Comments RPR (test code = RPR) Non-Reactive Non-Reactive N Thyroid Stimulating Hormone (TSH)2017-03-17 09:55:00 Test Item Value Reference Range Interpretation Comments TSH (test code = TSH) 0.94 mIU/mL 0.270-4.200 N Lipid [id number] 09:53:00 Test Item Value Reference Range Interpretation Comments Cholesterol (test 124 mg/dL 0-200 N code = CHOL) Triglycerides (test 61 mg/dL 9-200 N code = TRIG) HDL (test code = 47 mg/dL 40-60 N HDL) Chol/HDL (test code 2.6 Ratio 0.0-5.0 N = CHOLPHDL) LDL, Calculated 65 0-130 N (NOTE)RISK O F HEART (test code = LDLC) DISEASEPu blished by Armenian Heart AssociationAnal yte Optim al Boderline Increased RiskC HOL <200 200-239 >240TRI G <150 150-199 >200HDL Male: >60 <40HDL Female: >60 <50 LDL < 100 130-15 9 >160 LDL NEAR OPTIMAL IS 100- 129 VLDL (test code = 12 mg/dL 5-40 N VLDL) LDL/HDL (test code = 1 LDLPHDL) Urinalysis [id number] 15:09:00 Test Item Value Reference Range Interpretation Comments Color (test code = Yellow Yellow,Straw,Pl N COLOR) yellow Clarity (test code = Clear Clear N CLAR) Specific Tina (test 1.028 1.001-1.035 N code = SPGR) [...] = 0-1 Granular /HPF CASTS) Comprehensive Metabolic [id number] 14:24:00 Test Item Value Reference Range Interpretation [...] by the National Kidney Foundation,http ://nkd ep.nih.gov [id number] 14:20:00 Test Item Value Reference Range Interpretation [...] 0.00-0.01 N code = ETOHU) CBC with [id number] 14:08:00 Test Item Value Reference Range Interpretation [...] code = ALYMPH) 2.2 K/cumm 0.5-4.6 N [place] Abs (test code = AMONO) 0.9 K/cumm 0.0-1.2 N Eos Abs (test code = AEOS) 0.06 K/cumm 0.00-0.74 N Baso Abs (test code = ABASO) 0.0 K/cumm 0.00-0.21 N
[2021-08-11 13:25] LABS: Absolute Lymphocytes (CBC) 1.4 K/uL (0.7-4.9); Hematocrit 48.9 % (39.6-49.0); Lymphocytes % 15.3 % (15.3-44.8); MPV 7.5 fL (7.6-11.3)
[2021-08-11 13:49] LABS: BUN Blood Urea Nitrogen 12 mg/dL (7-18); Bicarbonate 30 mmol/L (21-32); Glomerular Filtration Rate 127 ml/min (=/>90); Glucose Level 108 mg/dL (74-106); Potassium 3.9 mmol/L (3.5-5.1); Sodium Level 138 mmol/L (136-145)
[2021-08-11 13:51] LABS: NT PRO-BNP < 5 pg/mL (<125); Troponin High Sensitivity < 3.0 pg/mL (<58.9)
--- NOTE | 2021-08-11 15:08 | RAD REPORT ---
EXAM DESCRIPTION: RAD - Chest Single View - 08/11/2021 1:50 pm CLINICAL HISTORY: CHEST PAIN COMPARISON: Portable 08/06/2021 TECHNIQUE: AP portable chest image was obtained 08/11/2021 1:50 pm . FINDINGS: No acute lung parenchymal process. Interstitial pattern matches comparison. Heart and vasc ulature are normal. No measurable pleural effusion and no pneumothorax. No acute bony abnormality see n. No acute aortic findings suspected. IMPRESSION: No acute cardiopulmonary process. No significant change from comparison study.
--- NOTE | 2021-08-11 16:43 | RAD REPORT ---
EXAM DESCRIPTION: CT - Head Brain Wo Cont - 08/11/2021 4:22 pm CLINICAL HISTORY: Headache, new or worsening, positional COMPARISON: <Comparisons>CT head March 2017 TECHNIQUE: Axial 5 mm thick images of the head were obtained without IV contrast. All CT scans are performed using dose optimization technique as appropriate and may include automated exposure control or mA/KV adjustment according to patient size. FINDINGS: No intracranial hemorrhage, mass, edema or shift of mid-line structures. No acute infarcti on changes seen. No abnormal extra-axial fluid collections. Ventricles are normal. No suspicion for a sella or supra sella mass. No tonsillar ectopia. Mastoid air cells and visualized portions of the paranasal sinuses are clear. No acute bony findings. No significant change from March 2017 IMPRESSION: Negative non-contrast CT head examination.
--- NOTE | 2021-08-11 17:00 | ER ---
Nurse's Notes [facility] Name: Marshall Cook Age: 35 yrs Sex: Male : 1985 Arrival Date: 08/11/2021 Time: 12:53 Bed 15 Private MD: Diagnosis: Chest pain on breathing Presentation: 08/11 13:01 Chief complaint: Patient states: chest pain. Coronavirus screen: Vaccine status: [facility] Patient reports receiving the 2nd dose of the covid vaccine. Ebola Screen: Patient negative for fever greater than or equal to 101.5 degrees Fahrenheit, and additional compatible Ebola Virus Disease symptoms Patient denies exposure to infectious person. Patient denies travel to an Ebola-affected area in the 21 days before illness onset. Initial Sepsis Screen: Does the patient meet any 2 criteria? No. Patient's initial sepsis screen is negative. Does the patient have a suspected source of infection? No. Patient's initial sepsis screen is negative. Risk Assessment: Do you want to hurt yourself or someone else? Patient reports no desire to harm self or others. Onset of symptoms was August 11, 2021. 13:01 Method Of Arrival: EMS: [facility] 13:01 Acuity: NICOLE 3 [facility] Triage Assessment: 13:03 General: Appears in no apparent distress. Behavior is calm, cooperative. Pain: [facility] Complains of pain in chest Pain currently is 7 out of 10 on a pain scale. Quality of pain is described as aching, dull, sharp, Pain began 1 day ago. Is continuous, Alleviated by nothing. Aggravated by increased activity, repositioning, Noted to be quiet/stoic. Cardiovascular: No deficits noted. Reports chest pain, Capillary refill < 3 seconds Clubbing of nail beds is absent JVD is absent Thorax Patient's skin is warm and dry. Rhythm is regular. Respiratory: No deficits noted. GI: No deficits noted. Abdomen is distended, Bowel sounds present X 4 quads. Abd is soft and non tender. Historical: - Allergies: 18:11 ketorolac tromethamine; [facility] 18:11 Tramadol HCl; [facility] 18:11 Naproxen; [facility] - Immunization history:: Adult Immunizations up to date. - Social history:: Patient/guardian denies using alcohol, street drugs, The patient lives with family, Smoking status: Patient/guardian denies using tobacco. Screenin:05 Abuse screen: Denies threats or abuse. Nutritional screening: No deficits noted. jh6 Tuberculosis screening: No symptoms or risk factors identified. Fall Risk Secondary diagnosis (15 points) impaired mobility. Assessment: 13:25 General: Appears in no apparent distress. Behavior is calm, cooperative. jh6 13:25 Pain: Complains of pain in chest Pain does not radiate. Pain currently is 4 out of 10 jh6 on a pain scale. Quality of pain is described as sharp, Pain began suddenly, Is intermittent, Alleviated by nothing. Aggravated by. Neuro: No deficits noted. Reports occasional blurred vision. Cardiovascular: Reports chest pain, Capillary refill < 3 seconds Clubbing of nail beds is absent JVD is absent Patient's skin is warm and dry. Pulses are all present. Edema is absent. Rhythm is regular. Respiratory: No deficits noted. GI: No deficits noted. Bowel sounds present X 4 quads. Abd is soft. 15:00 Reassessment: No changes from previously documented assessment. Patient and/or family 6 updated on plan of care and expected duration. Pain level reassessed. Patient is alert, oriented x 3, equal unlabored respirations, skin warm/dry/pink. pt resting watching tv on his phone. waiting for results of bloodwork. 16:10 Reassessment: Patient and/or family updated on plan of care and expected duration. Pain jh6 level reassessed. Patient is alert, oriented x 3, equal unlabored respirations, skin warm/dry/pink. large BM cleaned and then taken to ct. pt requesting urine to be tested for poss uti. pt does self cath. 17:21 Reassessment: Patient and/or family updated on plan of care and expected duration. Pain jh6 level reassessed. Patient is alert, oriented x 3, equal unlabored respirations, skin warm/dry/pink. pt given meds for vague ear pressure and "funny feeling" in his head. pt self cathing and order for dip placed. Vital Signs: 14:00 BP 109 / 68; Pulse 70; Resp 16; Pulse Ox 100% ; Pain 4/10; jh6 15:00 BP 100 / 63; Pulse 74; Resp 16; Pulse Ox 100% ; Pain 4/10; jh6 16:00 BP 97 / 61; Pulse 82; Resp 17; Pulse Ox 100% ; Pain 4/10; 6 ED Course: 12:53 Patient arrived in ED. aa5 12:53 Dorothy Horta MD is Attending Physician. ma2 13:00 Marina Gonzalez, RN is Primary Nurse. 6 13:03 Triage completed. jh6 13:04 Arm band placed on left wrist. Patient placed in the treatment room, on a stretcher, on jh6 furniture mover, on pulse oximetry. 13:25 Placed in gown. Bed in low position. Call light in reach. Side rails up X2. jh6 13:52 XRAY Chest (1 view) In Process Unspecified. EDMS 14:18 EKG done, by ED staff. tm3 14:30 Inserted saline lock: 20 gauge in right hand, using aseptic technique. Blood collected. jh6 16:[address] jh6 16:22 CT Head Brain wo Cont In Process Unspecified. EDMS 17:50 No provider procedures requiring assistance completed. 6 17:50 IV discontinued, intact, bleeding controlled, No redness/swelling at site. Pressure 6 dressing applied. Administered Medications: 17:21 Drug: Meclizine 25 mg Route: PO; 6 18:14 Follow up: Response: No adverse reaction [facility] Outcome: 16:59 Discharge ordered by . [facility] 17:50 Discharged to [facility]. Transfer form completed. jh6 17:50 Condition: good 17:50 Discharge instructions given to patient, Instructed on discharge instructions, follow up and referral plans. Demonstrated understanding of instructions, medications, Prescriptions given X 3. 18:14 Patient left the ED. [facility] Signatures: Dispatcher [employer] EDMS Shaan Mariai tm3 Marsha Whitaker, RN RN aa5 Dorothy Horta MD MD wi2 Marina Gonzalez, RN RN [facility]
--- NOTE | 2021-08-11 17:00 | EDPHYS ---
Physician Documentation [facility] Name: Marshall Cook Age: 35 yrs Sex: Male : 1985 Arrival Date: 08/11/2021 Time: 12:53 Bed 15 Private MD: ED Physician Dorothy Horta HPI: 08/11 12:54 This 35 yrs old Male presents to ER via Unassigned with complaints of Chest Pain. ma2 12:54 The patient or guardian reports chest pain that is located primarily in the anterior ma2 chest wall. Associated signs and symptoms: Pertinent negatives: cough, headache, lower extremity swelling, nausea, near syncope. The chest pain is described as causing indigestion. Severity of pain: At its worst the pain was mild in the emergency department the pain has resolved. 15:14 I reinterviewed the patient, at 314 p.m. and now he states that he never had chest ma2 pain, he said he has mild headache has been gradual over the last few months, patient asked for MRI brain. He said he had a MRI in the past that was normal however he would like repeat at this time. Historical: - Allergies: 18:11 ketorolac tromethamine; jh6 18:11 Tramadol HCl; 6 18:11 Naproxen; 6 - Immunization history:: Adult Immunizations up to date. - Social history:: Patient/guardian denies using alcohol, street drugs, The patient lives with family, Smoking status: Patient/guardian denies using tobacco. ROS: 12:54 Constitutional: Negative for fever, chills, and weight loss. ma2 12:54 All other systems are negative. Exam: 12:54 Constitutional: This is a well developed, well nourished patient who is awake, alert, ma2 and in no acute distress. Head/Face: Normocephalic, atraumatic. Eyes: Pupils equal round and reactive to light, extra-ocular motions intact. Lids and lashes normal. Conjunctiva and sclera are non-icteric and not injected. Cornea within normal limits. Periorbital areas with no swelling, redness, or edema. ENT: Nares patent. No nasal discharge, no septal abnormalities noted. Tympanic membranes are normal and external auditory canals are clear. Oropharynx with no redness, swelling, or masses, exudates, or evidence of obstruction, uvula midline. Mucous membranes moist. Neck: Trachea midline, no thyromegaly or masses palpated, and no cervical lymphadenopathy. Supple, full range of motion without nuchal rigidity, or vertebral point tenderness. No Meningismus. Chest/axilla: Normal chest wall appearance and motion. Reproducible chest pain on exam. No lesions are appreciated. Cardiovascular: Regular rate and rhythm with a normal S1 and S2. No gallops, murmurs, or rubs. Normal PMI, no JVD. No pulse deficits. Respiratory: Lungs have equal breath sounds bilaterally, clear to auscultation and percussion. No rales, rhonchi or wheezes noted. No increased work of breathing, no retractions or nasal flaring. Abdomen/GI: Soft, non-tender, with normal bowel sounds. No distension or tympany. No guarding or rebound. No evidence of tenderness throughout. MS/ Extremity: Pulses equal, no cyanosis. Neurovascular intact. Full, normal range of motion. Neuro: Awake and alert, GCS 15, oriented to person, place, time, and situation. Cranial nerves II-XII grossly intact. Motor strength 5/5 in all extremities. Sensory grossly intact. Cerebellar exam normal. Normal gait. Vital Signs: 14:00 BP 109 / 68; Pulse 70; Resp 16; Pulse Ox 100% ; Pain 4/10; jh6 15:00 BP 100 / 63; Pulse 74; Resp 16; Pulse Ox 100% ; Pain 4/10; jh6 16:00 BP 97 / 61; Pulse 82; Resp 17; Pulse Ox 100% ; Pain 4/10; jh6 MDM: 12:54 Differential diagnosis: anxiety, chest wall pain, costochondritis, gastroesophageal ma2 reflux disease (GERD). HEART Score: History: Slightly Suspicious (0), ECG: Normal (0), Age: < or = 45 years (0), Risk Factors: No Risk Factors Known (0), Troponin: < or = 1 x Normal Limit (0). ARVIN Risk Score: not applicable. Data reviewed: vital signs, nurses notes. 14:26 Patient medically screened. ma2 16:59 Response to treatment: the patient's symptoms have resolved after treatment. [facility] 08/11 12:54 Order name: Basic Metabolic Panel; Complete Time: 14:52 [facility] 08/11 12:54 Order name: CBC with Diff; Complete Time: 14:52 [facility] 08/11 12:54 Order name: NT PRO-BNP; Complete Time: 14:52 [facility] 08/11 12:54 Order name: Troponin HS; Complete Time: 14:52 [facility] 08/11 12:54 Order name: XRAY Chest (1 view); Complete Time: 15:46 [facility] 08/11 17:34 Order name: Urine Dipstick-Ancillary; Complete Time: 17:50 EDCT 08/11 12:54 Order name: EKG; Complete Time: 12:55 [facility] 08/11 12:54 Order name: Cardiac monitoring; Complete Time: 13:06 [facility] 08/11 12:54 Order name: EKG - Nurse/Tech; Complete Time: 14:44 [facility] 08/11 12:54 Order name: IV Saline Lock; Complete Time: 14:00 [facility] 08/11 12:54 Order name: Labs collected and sent; Complete Time: 14:00 [facility] 08/11 12:54 Order name: O2 Per Protocol; Complete Time: 13:06 [facility] 08/11 15:01 Order name: CT Head Brain wo Cont; Complete Time: 16:59 [facility] 08/11 12:54 Order name: O2 Sat Monitoring; Complete Time: 13:06 [facility] 08/11 17:24 Order name: Urine Dipstick-Ancillary (obtain specimen) [facility] Administered Medications: 17:21 Drug: Meclizine 25 mg Route: PO; [facility] 18:14 Follow up: Response: No adverse reaction [facility] Disposition Summary: 08/11/21 16:59 Discharge Ordered Location: Home ma2 Condition: Stable ma2 Diagnosis - Chest pain on breathing ma2 Followup: ma2 - With: Private Physician - When: Tomorrow - Reason: Continuance of care Discharge Instructions: - Discharge Summary Sheet ma2 - Chest Wall Pain ma2 - Urinary Tract Infection, Adult ma2 Forms: - Medication Reconciliation Form ma2 - Thank You Letter ma2 - Antibiotic Education ma2 - Prescription Opioid Use ma2 - SBAR form em1 Prescriptions: - Diclofenac Sodium 75 mg Oral Tablet Sustained Release - take 1 tablet by ORAL route 2 times per day; 30 tablet; Refills: 0, Product ma2 Selection Permitted - Reglan 10 mg Oral Tablet - take 1 tablet by ORAL route every 6 hours . take 30 minutes before meals and at ky2 bedtime; 100 tablet; Refills: 0, Product Selection Permitted - cefpodoxime 200 mg Oral Tablet - take 2 tablets by ORAL route every 12 hours with food; 14 tablet; Refills: 0, ma2 Product Selection Permitted Signatures: Dispatcher [employer] Dorothy Mccoy MD MD ky2 Marina Gonzalez RN RN 6
[2021-08-11] MEDS ORDERED: MECLIZINE HCL 12.5 MG TAB ONE (17:26)
[2021-08-11 17:34] LABS: Urine Blood Trace-lysed (Negative); Urine Glucose Negative (Negative); Urine Protein 1+ (Negative); Urine pH 7.5 (5.0-7.0)
[2021-08-11 18:42] VITALS: O2SAT 100
[2021-08-11 18:45] VITALS: BP 97/61
--- NOTE | 2021-08-12 14:42 | EKG ---
Test Date: 2021-08-11 Test Time: 14:10:38 Steel Buffer: TM MEASUREMENT RESULTS: Intervals: Rate: 71 CO: 158 QRSD: 84 QT: 364 QTc: 395 [place]: P: 19 CO: 158 QRS: 63 T: 51 INTERPRETIVE STATEMENTS: Normal sinus rhythm Normal ECG Compared to ECG 08/06/2021 16:28:04 No significant changes Electronically Signed On 08-12-21 14:40:39 CDT by Reza Salas
== END 2021-08-11 18:14 | disposition home or self-care (01) ==
LOC: ER 12:48
DX: R07.89 Other chest pain (principal); Z88.5 Allergy status to narcotic agent; Z88.8 Allergy status to other drugs, medicaments and biological substances
CPT/HCPCS: 93005; 85025; 80048; 36415; 81003; 84484; 83880; 70450; 71045; 99285; J8597

== ENCOUNTER 2021-08-14 18:37 | Emergency (ER) | payer OTHER ==
[2021-08-14 23:10] LABS: Urine Blood Trace-lysed (Negative); Urine Glucose Negative (Negative); Urine Protein Negative (Negative); Urine Specific Gravity 1.025 (1.005-1.030)
[2021-08-14 23:18] LABS: Absolute Lymphocytes (CBC) 1.9 K/uL (0.7-4.9); Hematocrit 50.1 % (39.6-49.0); Lymphocytes % 32.2 % (15.3-44.8); MCV 97.3 fL (80-100); MPV 7.9 fL (7.6-11.3); RBC Red Blood Cell Count 5.15 M/uL (4.33-5.43)
[2021-08-14 23:40] LABS: ALT/SGPT 220 U/L (12-78); AST/SGOT 90 U/L (15-37); Albumin 3.8 g/dL (3.4-5.0); Alkaline Phosphatase 101 U/L (45-117); BUN Blood Urea Nitrogen 16 mg/dL (7-18); Bicarbonate 28 mmol/L (21-32); Bilirubin Direct 0.1 mg/dL (0-0.2); Bilirubin Total 0.5 mg/dL (0.2-1.0); Glomerular Filtration Rate 121 ml/min (=/>90); Glucose Level 126 mg/dL (74-106); Potassium 3.8 mmol/L (3.5-5.1); Protein, Total 7.5 g/dL (6.4-8.2); Sodium Level 138 mmol/L (136-145)
[2021-08-15 00:42] LABS: Barbiturates NEGATIVE (NEGATIVE); Benzodiazepines NEGATIVE (NEGATIVE); Cocaine POSITIVE (NEGATIVE); METHAMPHETAM POSITIVE (NEGATIVE); Methadone NEGATIVE (NEGATIVE); Opiates NEGATIVE (NEGATIVE); Phencyclidine NEGATIVE (NEGATIVE); THC Cannibis NEGATIVE (NEGATIVE)
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
[2021-08-15] MEDS ORDERED: SMZ./TMP. 800/160 MG TABLET ONE (01:38)
[2021-08-15] MEDS ORDERED: DIPHENHYDRAMINE 50 MG/ML VIAL ONE (02:07)
[2021-08-15] MEDS ORDERED: HYDROCODONE/APAP 5/325 MG TAB ONE (02:25)
[2021-08-15 04:31] VITALS: TEMP 96
[2021-08-15 04:42] VITALS: BP 106/69; O2SAT 96
--- NOTE | 2021-08-15 13:51 | RAD REPORT ---
EXAM DESCRIPTION: RAD - Chest Single View - 08/15/2021 2:40 am CLINICAL HISTORY: CHEST PAIN COMPARISON: 06/12/2021 FINDINGS: Single frontal radiograph view of the chest. Cardiomediastinal silhouette: Normal size and contour. Lungs: No consolidation, pneumothorax, or pleural effusion. Bones: No acute osseous abnormality. Leads overlie the chest. Upper abdomen: No abnormality identified. IMPRESSION: 1. No acute pulmonary process identified. Electronically signed by: Danish Blankenship 08/15/2021 2:59 AM CDT Due to temporary technical issues with the PACS/Fluency reporting system, reports are being signed by the in house radiologists without. review as a courtesy to insure prompt reporting. The interpreting radiologist is fully responsible for the content of the report
== END 2021-08-15 04:26 | disposition home or self-care (01) ==
LOC: ER 18:37
DX: N39.0 Urinary tract infection, site not specified (principal); F15.10 Other stimulant abuse, uncomplicated; Z88.5 Allergy status to narcotic agent; Z91.048 Other nonmedicinal substance allergy status
CPT/HCPCS: 36415; 71045; 80053; 80307; 80320; 80329; 81003; 82248; 85025; 85610; 85730; 87086; 87088; J1200

== ENCOUNTER 2021-09-02 21:32 | Emergency (ER) | payer OTHER ==
--- NOTE | 2021-09-02 22:03 | RAD REPORT ---
EXAM DESCRIPTION: Lyric Single View09/02/2021 9:55 pm CLINICAL HISTORY: Chest pain COMPARISON: July 2021 FINDINGS: The lungs appear clear of acute infiltrate. The heart is normal size IMPRESSION: No acute abnormalities displayed
[2021-09-02] MEDS ORDERED: NA CHLORIDE 0.9% 1,000 ML ONE (22:05)
[2021-09-02 22:13] LABS: Absolute Lymphocytes (CBC) 1.6 K/uL (0.7-4.9); Hematocrit 46.9 % (39.6-49.0); Lymphocytes % 33.1 % (15.3-44.8); MCV 96.6 fL (80-100); MPV 7.7 fL (7.6-11.3); RBC Red Blood Cell Count 4.85 M/uL (4.33-5.43)
[2021-09-02 22:24] LABS: Potassium 4.2 mmol/L (3.5-5.1); Troponin High Sensitivity 3.8 pg/mL (<58.9)
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
[2021-09-03] MEDS ORDERED: MEPERIDINE HCL 25 MG/ML SYR ONE (01:50)
[2021-09-03 03:09] VITALS: TEMP 98.9; O2SAT 100
[2021-09-03 03:11] VITALS: BP 129/69
--- NOTE | 2021-09-03 08:14 | EKG ---
Test Date: 2021-09-02 Test Time: 21:55:20 Hairspring Inspector: RASHAD MEASUREMENT RESULTS: Intervals: Rate: 100 CO: 154 QRSD: 86 QT: 328 QTc: 423 [place]: P: 42 CO: 154 QRS: 82 T: 42 INTERPRETIVE STATEMENTS: Normal sinus rhythm Normal ECG Compared to ECG 08/11/2021 14:10:38 No significant changes Electronically Signed On 09-03-21 08:12:27 CDT by Cj Anderson
--- NOTE | 2021-09-03 16:31 | RAD REPORT ---
EXAM DESCRIPTION: CT - Chest For Pe Angio - 09/03/2021 6:13 am CLINICAL HISTORY: The patient is 35 years old and is Male; Pulmonary embolism (PE) suspected, positi ve D-dimer TECHNIQUE: Axial computed tomographic angiography images of the chest with intravenous contrast. T his CT exam was performed using one or more of the following dose reduction techniques: automated e xposure control, adjustment of the mA and/or kV according to patient size, and/or use of iterative re construction technique. MIP reconstructed images were created and reviewed. DLP: 507 mGy*cm COMPARISON: Chest radiograph of the same day. FINDINGS: PULMONARY ARTERIES: Limited evaluation due to poor bolus timing. No central pulmonary em boli. AORTA: No acute findings. No thoracic aortic aneurysm. LUNGS: Bibasilar atelectasis or scarring. No focal consolidation. PLEURAL SPACE: Unremarkable. No significant effusion. No pneumothorax. HEART: Unremarkable. No cardiomegaly. No significant pericardial effusion. No evidence of RV dysfunction. BONES/JOINTS: No acute fracture. No dislocation. SOFT TISSUES: Unremarkable. LYMPH NODES: Unremarkable. No enlarged lymph nodes. LIVER: Subcentimeter hepatic hypodensity. IMPRESSION: 1. Limited evaluation due to poor bolus timing. No central pulmonary emboli. 2. Bibasilar atelectasis or scarring. No focal consolidation. Electronically signed by: Fabian Aldana DO 09/03/2021 12:10 AM CDT Due to temporary technical issues with the PACS/Fluency reporting system, reports are being signed by the in house radiologists without review as a courtesy to insure prompt reporting. The interpreting radiologist is fully responsible for the content of the report.
== END 2021-09-03 02:53 | disposition home or self-care (01) ==
LOC: ER 21:32
DX: R07.9 Chest pain, unspecified (principal); Z20.822 Contact with and (suspected) exposure to COVID-19; F20.9 Schizophrenia, unspecified; Z88.5 Allergy status to narcotic agent; Z88.8 Allergy status to other drugs, medicaments and biological substances
CPT/HCPCS: 93005; 85025; 80048; 36415; 85379; 84484; 71275; 71045; U0003; Q9967; J2175; J7030

== ENCOUNTER 2021-09-15 19:11 | Emergency (ER) | payer OTHER ==
[2021-09-15 19:56] LABS: Absolute Lymphocytes (CBC) 1.6 K/uL (0.7-4.9); Hematocrit 49.8 % (39.6-49.0); MCV 96.5 fL (80-100); MPV 7.1 fL (7.6-11.3); RBC Red Blood Cell Count 5.16 M/uL (4.33-5.43)
[2021-09-15 20:12] LABS: Potassium 3.8 mmol/L (3.5-5.1); Troponin High Sensitivity 3.9 pg/mL (<58.9)
[2021-09-15 20:57] LABS: Urine Blood Trace-lysed (Negative); Urine Glucose Negative (Negative); Urine Protein Negative (Negative); Urine Specific Gravity 1.015 (1.005-1.030)
[2021-09-15] MEDS ORDERED: NA CHLORIDE 0.9% 1,000 ML ONE (21:07)
--- NOTE | 2021-09-15 21:11 | RAD REPORT ---
EXAM DESCRIPTION: RAD - Chest Single View - 09/15/2021 8:44 pm CLINICAL HISTORY: CHEST PAIN COMPARISON: Chest Single View dated 09/02/2021; Chest Single View dated 08/15/2021; Chest Single View dated 08/11/2021; Chest Single View dated 08/06/2021 FINDINGS: Lines: None. Lungs: No evidence of edema or pneumonia. Pleural: No significant pleural effusions or pneumothorax. Cardiac: The heart size is within normal limits. Bones: No acute fractures. Other: IMPRESSION: No acute cardiopulmonary disease.
[2021-09-15 21:22] LABS: Barbiturates NEGATIVE (NEGATIVE); Benzodiazepines NEGATIVE (NEGATIVE); Cocaine NEGATIVE (NEGATIVE); METHAMPHETAM POSITIVE (NEGATIVE); Methadone NEGATIVE (NEGATIVE); Opiates NEGATIVE (NEGATIVE); Phencyclidine NEGATIVE (NEGATIVE); THC Cannibis NEGATIVE (NEGATIVE)
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
--- NOTE | 2021-09-16 12:21 | EKG ---
Test Date: 2021-09-15 Test Time: 19:39:13 Visual Manager: LL MEASUREMENT RESULTS: Intervals: Rate: 99 MT: 148 QRSD: 84 QT: 328 QTc: 420 [place]: P: 24 MT: 148 QRS: 55 T: 37 INTERPRETIVE STATEMENTS: Normal sinus rhythm Normal ECG Compared to ECG 09/04/2021 21:32:49 Sinus tachycardia no longer present Electronically Signed On 09-16-21 12:19:59 CDT by Reza Salas
== END 2021-09-15 22:29 | disposition home or self-care (01) ==
LOC: ER 19:11
DX: R07.89 Other chest pain (principal); R53.1 Weakness; G82.20 Paraplegia, unspecified; F20.9 Schizophrenia, unspecified; F17.210 Nicotine dependence, cigarettes, uncomplicated; Z88.5 Allergy status to narcotic agent; Z88.6 Allergy status to analgesic agent; Z88.8 Allergy status to other drugs, medicaments and biological substances
CPT/HCPCS: 93005; 85025; 80048; 36415; 80320; 81003; 84484; 80307; 71045; 96360; 99285; J7030

== ENCOUNTER 2021-10-03 15:51 | Emergency (ER) | payer OTHER ==
--- OUTSIDE RECORDS SUMMARY | 2021-10-03 16:03 | XMS REPORT | Continuity of Care Document ---
:1985 Author Organization [facility] t Address [address] [place] [address] Care Team Providers Name Role Phone UNKNOWN, REFFERING Primary Care Physician Unavailable [id number] Attending Clinician Unavailable PRAVIN OGLESBY Attending Clinician Unavailable YURY SUH Attending Clinician Unavailable GRISEL ROLDAN Attending Clinician Unavailable BUSHRA JARA Attending Clinician Unavailable BILL PAULSON Attending Clinician Unavailable MICHAEL PHILLIPS Attending Clinician Unavailable Joy Doss Attending Clinician Michael Phillips MD Attending Clinician VILMA_MARIJA_[place] Attending Clinician Unavailable Doctor Unassigned, Mckee Attending Clinician Unavailable Marina Rodriguez Attending Clinician [phone] Jonah Carr Attending Clinician [phone] Erick Murillo MD Attending Clinician UNKNOWN Attending Clinician Unavailable GC_BAHC_Spangler_G Attending Clinician Unavailable MARTIN CLAY Attending Clinician Unavailable Tono Roberto MD Attending Clinician Martin Clay MD Attending Clinician GALE PAULSON Attending Clinician Unavailable PASCUAL MAHAN Attending Clinician Unavailable GUME BOSS Attending Clinician Unavailable TONYA CARTER Attending Clinician Unavailable VÍCTOR KEANE Attending Clinician Unavailable Erich Triplett Attending Clinician Unavailable Eusebia Ruelas MD Attending Clinician [phone] William Nunes DO Attending Clinician Mio Sorensen MD Attending Clinician MD EUSEBIA RUELAS Attending Clinician Unavailable Dennis Wynn MD Attending Clinician Madeleine Gordillo MD Attending Clinician Jessica Awad MD Attending Clinician Lashaun Awad MD Attending Clinician MD MADELEINE GORDILLO Attending Clinician Unavailable Gale Harrison Attending Clinician Unavailable Darlene Lizarraga Attending Clinician Unavailable Michael Montero Attending Clinician Unavailable Farhad Pardo Attending Clinician Unavailable Lan Zeng Attending Clinician Unavailable Brown Bowen MD Attending Clinician DEJAH SINGH Attending Clinician Unavailable JADON AGUILAR M.D., Erasmo DIOP Attending Clinician Unavailable [id number] Admitting Clinician Unavailable BUSHRA JARA Admitting Clinician Unavailable VILMA_BAHC_Michael_Ivis Admitting Clinician Unavailable GC_BAHC_Spangler_G Admitting Clinician Unavailable MARTIN CLAY Admitting Clinician Unavailable Martin Clay MD Admitting Clinician Physician, No Primary or Family Admitting Clinician UnavailMD EUSEBIA Nielsen Admitting Clinician Unavailable MADELEINE GORDILLO Admitting Clinician Unavailable MD MADELEINE GORDILLO Admitting Clinician Unavailable KNOW, DOES_NOT Admitting Clinician Unavailable DEJAH SINGH Admitting Clinician Unavailable JADON AGUILAR M.D., JADON Admitting Clinician Unavail able Payers Payer Name Policy Type Policy Number Effective Date Expiration Date Carmita moreno [facility] [id number] 2020 2021 SSI 00:00:00 00:00:00 [facility] [id number] 2021 MEDICAID 00:00:00 [facility] [id number] 2021 [facility] (MEDICAID 00:00:00 HMO) [employer] [place] - [id number] 2021 2021 COMMUNITY CARE - 00:00:00 00:00:00 [facility] (MEDICAID HMO) Problems Condition Condition Condition Status Onset Resolution Last Treating Co mments Source Name Details Category Date Date Treatment Clinician Date Schizophre Schizophre Disease Active U nivers mati mati 3-23 ity of 00:: [facility] Branch Cellulitis Cellulitis Disease Active U nivers of left of left 3-22 ity of buttock buttock 00:00: Medical Branch Chest Chest Disease Active Univers discomfort discomfort 3-22 it y of 00:: Medical Branch Disorienta Disorienta Disease Active M ethodi tion tion 9-06 st [facility] l Esophageal Esophageal Disease Active U nivers reflux reflux 7-21 ity of 00:00: Medical Branch Dysphagia, Dysphagia, Disease Active U nivers oropharyng oropharyng 7-21 it y of eal phase eal phase 00:00: s Medical Branch Allergies, Adverse Reactions, Alerts Allergy Allergy Status Severity Reaction(s) Onset Inactive Treating Comm ents Source Name Type Date Date Clinician KETOROLA DRUG Active Hives Univers C INGREDI 8-16 ity of 00:00: [place] [facility] Ketorola Propensi Active Hives 0 Univer s c ty to 8-16 ity of adverse 00:00: [place] reaction 00 Medical s Branch tramadol DA Active MO HIVES 2020-0 [facility] 8-21 [facility] 00:00: d 00 [facility] tramadol DA Active MO 2020-0 [facility] 8-21 [facility] 00:00: d 00 Medical Center No Known DA Active U 2020-0 [facility] Allergie 7-19 [facility] 00:[facility]: [facility] No Known DA Active U 2020-0 [facility] Allergie 7-19 [facility] 00:[facility]: [facility] No Known DA Active U 2020-0 [facility] Allergie 7-18 [facility] 00:[facility]: [facility] No Known DA Active U 2020-0 [facility] Allergie 7-18 [facility] 00:00: [facility] tramadol DA Active MO HIVES 2020-0 [facility] 3-29 [facility] 00:00: d 00 [facility] tramadol DA Active MO 2020-0 [facility] 3-29 [facility] 00:00: d 00 Medical Center No Known DA Active U 2020-0 [facility] Allergie 7-13 [facility] 00:00: [facility] No Known DA Active U 2020-0 [facility] Allergie 7-13 [facility] 00:00: [facility] No Known DA Active U 2020-0 [facility] Allergie 5-06 [facility] 00:00: [facility] No Known DA Active U 2020-0 [facility] Allergie 5-06 [facility] 00:00: [facility] tramadol DA Active MO HIVES 2016-0 [facility] 1-04 [facility] 00:00: d 00 [facility] tramadol DA Active MO 2016-0 [facility] 1-04 [facility] 00:00: d 00 [facility] Risperid Propensi Active Other - [...] 00 Medical s Branch traMADol Drug Active [facility] RisperDA Drug Active [facility] traMADol Drug Active [facility] RisperDA Drug Active [facility] traMADol Drug Active [facility] RisperDA Drug Active [facility] traMADol Drug Active [facility] traMADol Drug Active [facility] traMADol Drug Active [facility] RisperDA Drug Active [facility] RisperDA Drug Active [facility] traMADol Drug Active [facility] RisperDA Drug Active [facility] traMADol Drug Active [facility] RisperDA Drug Active [facility] RisperDA Drug Active [facility] traMADol Drug Active [facility] RisperDA Drug Active [facility] traMADol Drug Active [facility] RisperDA Drug Active [facility] traMADol Drug Active [facility] RisperDA Drug Active [facility] traMADol Drug Active [facility] RisperDA Drug Active [facility] Social History Social Habit Start Date Stop Date Quantity Comments Source Exposure to 2021-09-22 2021-10-02 Not sure University SARS-CoV-2 (event) 00:00:00 00:02:00 [facility] Cigarettes smoked 2021-05-07 2021-05-07 Univers ity of current (pack per 00:00:00 00:00:00 ) - Reported Branch Cigarette 2021-05-07 2021-05-07 University of pack-years 00:00:00 00:00:00 [facility] Tobacco use and 2020-11-14 2020-11-14 Smokeless [facility] exposure 00:00:00 00:00:00 tobacco non-user Hospital Alcohol intake 2020-11-14 2020-11-14 Current drinker [facility] dist 00:00:00 00:00:00 of alcohol Hospital (finding) History of tobacco 2011-02-04 Cigarette Smoker University of use 00:00:00 [facility] Sex Ass[birth year] At [birth year] [facility] 00:00:00 00:00:00 Hospital Smoking Status Start Date Stop Date Source Smokes tobacco daily 2020-11-14 00:00:00 [facility] Medications Ordered Filled Start Stop Current Ordering Indication Dosage Frequency Signature Comments Components Source Medication Medication Date Date Medication? Clinician (SIG) Name Name vancomycin Yes 1000mg 1,000 mg, Univers (VANCOCIN) 3-23 IV ity of 1,000 mg in 15:00: [employer], [place] NaCl 0.9% 00 Q12H ABX, Medic [...] ity of 1,000 mg in 14:23: [place]gy[place], [place] NaCl 0.9% 00 Q12H ABX, Medic al [...] at Branch 0200, Until Discontinu ed, Routine cyclobenzap 2021-0 Yes 10mg Take 10 mg Univers rine 10 mg 3-23 by mouth ity o f tablet 05:21: every 8 [place] [address] (eight) Medical hours. Branch docusate 2021-0 Yes 100mg Take 100 Univ ers 100 mg 3-23 mg by ity of capsule 05:21: mouth 2 [place] 56 (two) Medical times Branch daily. gabapentin 2-0 Yes 300mg Take 300 Un mona 300 mg 3-23 mg by ity of capsule 05:21: mouth 2 [place] 56 (two) Medical times Branch daily. HYDROcodone 2-0 Yes 2{tbl} Take 2 Un mona -acetaminop 3-23 tablets by it y of hen 5-325 05:21: mouth [place] mg tablet 56 every 6 Medical (six) Branch hours. lactulose 0 Yes 30mL Take 30 mL Un mona 10 gram/15 3-23 by mouth ity o f mL oral 05:21: [place] solution 56 as needed Medica l for Branch Constipati on (daily). Magnesium Yes 2{tbl} Take 2 Univ ers 250 mg Tab 3-23 tablets by ity of 05:21: mouth [place] 56 daily. Medical Branch melatonin 2021-0 Yes 10mg Take 10 mg Un mona 10 mg Tab 3-23 by mouth ity of 05:21: at [place] [address] bedtime. Medical Branch metoprolol 0 Yes 12.5mg Take 12.5 Univers tartrate 25 3-23 mg by ity of mg tablet 05:21: mouth 2 [place] [address] (two) Medical times Branch daily. polyethylen Yes 17g Take 17 g U nivers e glycol 3-23 by mouth ity of 3350 05:21: daily. [place] (MIRALAX) Medical 17 Branch gram/dose powder nicotine 2021-0 Yes 1{patch Apply 1 Uni vers (NICODERM 3-23 } Patch to ity of CQ) 7 mg/24 05:21: area(s) Jose R as hr patch 56 every 24 Medical (twenty-fo Branch ur) hours. pregabalin 0 Yes 150mg Take 150 Un mona 150 mg 3-23 mg by ity of capsule 05:21: mouth 2 [place] [address] (two) Medical times Branch daily. ascorbic 2021-0 Yes 500mg Take 500 Univ ers acid, 3-23 mg by ity of vitamin C, 05:21: mouth. [place] (VITAMIN C) Medical 500 mg Branch tablet Zinc 50 mg 2021-0 Yes 50mg Take 50 mg U nivers Tab 3-23 by mouth ity of 05:21: daily. [place] [address] Medical Branch acetaminoph 2021-0 Yes 500mg Take 500 U nivers en 500 mg 3-23 mg by ity of tablet 05:21: mouth [place] 56 every 6 Medical (six) Branch hours as needed for Pain. AMMONIUM 2021-0 Yes 1{appli Apply 1 Uni [...] ity o f tablet 05:21: every 8 [place] [address] (eight) Medical hours. Branch docusate 2021-0 Yes 100mg Take 100 Univ ers 100 mg 3-23 mg by ity of capsule 05:21: mouth 2 [place] [address] (two) Medical times Branch daily. gabapentin 2021-0 Yes 300mg Take 300 Un mona 300 mg 3-23 mg by ity of capsule 05:21: mouth 2 [place] [address] (two) Medical times Branch daily. HYDROcodone 2021-0 [...] tablets by ity of 05:21: mouth [place] daily. Medical Branch melatonin 2021-0 Yes 10mg Take 10 mg Un mona 10 mg Tab 3-23 by mouth ity of 05:21: at [place] bedtime. Medical Branch metoprolol 2021-0 Yes 12.5mg Take 12.5 Univers tartrate 25 3-23 mg by ity of mg tablet 05:21: mouth 2 [place] 56 (two) Medical times Branch daily. polyethylen 2021-0 Yes 17g Take 17 g U nivers e glycol 3-23 by mouth ity of 3350 05:21: daily. [place] (MIRALAX) 56 Medical 17 Branch gram/dose powder nicotine 2021-0 Yes 1{patch Apply 1 Uni vers (NICODERM 3-23 } Patch to ity of CQ) 7 mg/24 05:21: area(s) [place] R as hr patch 56 every 24 Medical (twenty-fo Branch ur) hours. pregabalin 202-0 Yes 150mg Take 150 Un mona 150 mg 3-23 mg by ity of capsule 05:21: mouth 2 [place] [address] (two) Medical times Branch daily. ascorbic 2022-0 Yes 500mg Take 500 Univ ers acid, 3-23 mg by ity of vitamin C, 05:21: mouth. [place] (VITAMIN C) Medical 500 mg Branch tablet Zinc 50 mg 2021-0 Yes 50mg Take 50 mg U nivers Tab 3-23 by mouth ity of 05:21: daily. [place] [address] Medical Branch acetaminoph 2021-0 Yes 500mg Take 500 U nivers en 500 mg 3-23 mg by ity of tablet 05:21: mouth [place] 56 every 6 Medical (six) Branch hours as needed for Pain. AMMONIUM 202-0 Yes 1{appli Apply 1 Uni vers LACTATE [...] ity o f tablet 05:21: every 8 [place] [address] (eight) Medical hours. Branch docusate 202-0 Yes 100mg Take 100 Univ ers 100 mg 3-23 mg by ity of capsule 05:21: mouth 2 [place] [address] (two) Medical times Branch daily. gabapentin 2022-0 Yes 300mg Take 300 Un mona 300 mg 3-23 mg by ity of capsule 05:21: mouth 2 [place] [address] (two) Medical times Branch daily. HYDROcodone 2022-0 Yes 2{tbl} Take 2 Un mona -acetaminop 3-23 tablets by it y of hen 5-325 05:21: mouth [place] mg tablet 56 every 6 Medical (six) Branch hours. lactulose 2022-0 Yes 30mL Take 30 mL Un mona 10 gram/15 3-23 by mouth ity o f mL oral 05:21: once daily [place] solution 56 as needed Medica l for Branch Constipati on (daily). Magnesium 2021-0 Yes 2{tbl} Take 2 Univ ers 250 mg Tab 3-23 tablets by ity of 05:21: mouth [place] [address] daily. Medical Branch melatonin 2021-0 Yes 10mg Take 10 mg Un mona 10 mg Tab 3-23 by mouth ity of 05:21: at [place] [address] bedtime. Medical Branch metoprolol 0 Yes 12.5mg Take 12.5 Univers tartrate 25 3-23 mg by ity of mg tablet 05:21: mouth 2 [place] [address] (two) Medical times Branch daily. polyethylen 0 Yes 17g Take 17 g U nivers e glycol 3-23 by mouth ity of 3350 05:21: daily. [place] (MIRALAX) Medical 17 Branch gram/dose powder nicotine 2021-0 Yes 1{patch Apply 1 Uni vers (NICODERM 3-23 } Patch to ity of CQ) 7 mg/24 05:21: area(s) [place] as hr patch 56 every 24 Medical (twenty-fo Branch ur) hours. pregabalin 0 Yes 150mg Take 150 Un mona 150 mg 3-23 mg by ity of capsule 05:21: mouth 2 [place] [address] (two) Medical times Branch daily. ascorbic 2021-0 Yes 500mg Take 500 Univ ers acid, 3-23 mg by ity of vitamin C, 05:21: mouth. [place] (VITAMIN C) Medical 500 mg Branch tablet Zinc 50 mg 2021-0 Yes 50mg Take 50 mg U nivers Tab 3-23 by mouth ity of 05:21: daily. [place] [address] Medical Branch acetaminoph 0 Yes 500mg Take 500 U nivers en 500 mg 3-23 mg by ity of tablet 05:21: mouth [place] every 6 Medical (six) Branch hours as needed for Pain. AMMONIUM 2021-0 Yes 1{appli Apply 1 Uni [...] ity o f tablet 05:21: every 8 [place] [address] (eight) Medical hours. Branch docusate 0 Yes 100mg Take 100 Univ ers 100 mg 3-23 mg by ity of capsule 05:21: mouth 2 [place] [address] (two) Medical times Branch daily. gabapentin 2021-0 Yes 300mg Take 300 Un mona 300 mg 3-23 mg by ity of capsule 05:21: mouth 2 [place] [address] (two) Medical times Branch daily. HYDROcodone 2021-0 [...] 3-23 tablets by ity of 05:21: mouth [place] [address] daily. Medical Branch melatonin 0 Yes 10mg Take 10 mg Un mona 10 mg Tab 3-23 by mouth ity of 05:21: at [place] [address] bedtime. Medical Branch metoprolol Yes 12.5mg Take 12.5 Univers tartrate 25 3-23 mg by ity of mg tablet 05:21: mouth 2 [place] [address] (two) Medical times Branch daily. polyethylen 2021-0 Yes 17g Take 17 g U nivers e glycol 3-23 by mouth ity of 3350 05:21: daily. [place] (MIRALAX) Medical 17 Branch gram/dose powder nicotine [...] [place] 56 (two) Medical times Branch daily. ascorbic 2022-0 Yes 500mg Take 500 Univ ers acid, 3-23 mg by ity of vitamin C, 05:21: mouth. [place] (VITAMIN C) Medical 500 mg Branch tablet Zinc 50 mg 2022-0 Yes 50mg Take 50 mg U nivers Tab 3-23 by mouth ity of 05:21: daily. [place] [address] Medical Branch acetaminoph 202-0 Yes 500mg Take 500 U nivers en 500 mg 3-23 mg by ity of tablet 05:21: mouth [place] 56 every 6 Medical (six) Branch hours as needed for Pain. AMMONIUM 2022-0 Yes 1{appli Apply 1 Uni vers LACTATE 3-23 cator} Applicator ity of TOPICAL 05:21: to area(s) [place] 56 2 (two) Medical times Branch daily. bisacodyL 2021-0 Yes 10mg Insert 10 Uni vers 10 mg 3-23 mg into ity of suppository 05:21: rectum [place] 56 once daily Medical as needed Branch (neurogeni c bladder). cyclobenzap 2022-0 Yes 10mg Take 10 mg Univers rine 10 mg 3-23 by mouth ity o f tablet 05:21: every 8 [place] [address] (eight) Medical hours. Branch docusate 2021-0 Yes 100mg Take 100 Univ ers 100 mg 3-23 mg by ity of capsule 05:21: mouth 2 [place] 56 (two) Medical times Branch daily. gabapentin 2022-0 Yes 300mg Take 300 Un mona 300 mg 3-23 mg by ity of capsule 05:21: mouth 2 [place] [address] (two) Medical times Branch daily. HYDROcodone 2022-0 Yes 2{tbl} Take 2 Un mona -acetaminop 3-23 tablets by it y of hen 5-325 05:21: mouth [place] mg tablet 56 every 6 Medical (six) Branch hours. lactulose 2022-0 Yes 30mL Take 30 mL Un mona 10 gram/15 3-23 by mouth ity o f mL oral 05:21: once daily [place] solution 56 as needed Medica l for Branch Constipati on (daily). Magnesium 2022-0 Yes 2{tbl} Take 2 Univ ers 250 mg Tab 3-23 tablets by ity of 05:21: mouth [place] 56 daily. Medical Branch melatonin 2021-0 Yes 10mg Take 10 mg Un mona 10 mg Tab 3-23 by mouth ity of 05:21: at [place] [address] bedtime. Medical Branch metoprolol 0 Yes 12.5mg Take 12.5 Univers tartrate 25 3-23 mg by ity of mg tablet 05:21: mouth 2 [place] [address] (two) Medical times Branch daily. polyethylen 2021-0 Yes 17g Take 17 g U nivers e glycol 3-23 by mouth ity of 3350 05:21: daily. [place] (MIRALAX) Medical 17 Branch gram/dose powder nicotine 2021-0 Yes 1{patch Apply 1 Uni vers (NICODERM 3-23 } Patch to ity of CQ) 7 mg/24 05:21: area(s) [place] as hr patch 56 every 24 Medical (twenty-fo Branch ur) hours. pregabalin 2021-0 Yes 150mg Take 150 Un mona 150 mg 3-23 mg by ity of capsule 05:21: mouth 2 [place] [address] (two) Medical times Branch daily. ascorbic 2021-0 Yes 500mg Take 500 Univ ers acid, 3-23 mg by ity of vitamin C, 05:21: mouth. [place] (VITAMIN C) Medical 500 mg Branch tablet Zinc 50 mg 2021-0 Yes 50mg Take 50 mg U nivers Tab 3-23 by mouth ity of 05:21: daily. [address] Branch acetaminoph 2021-0 Yes 500mg Take 500 U nivers en 500 mg 3-23 mg by ity of tablet 05:21: mouth [place] [address] every 6 Medical (six) Branch hours as needed for Pain. AMMONIUM 2021-0 Yes 1{appli Apply 1 Uni vers LACTATE 3-23 cator} Applicator ity of TOPICAL 05:21: to area(s) [place] 56 2 (two) Medical times Branch daily. bisacodyL 2021-0 Yes 10mg Insert 10 Uni vers 10 mg 3-23 mg into ity of suppository 05:21: rectum [place] 56 once daily Medical as needed Branch (neurogeni c bladder). nicotine 2021-0 Yes 1{patch 1 Patch, Un mona (NICODERM) 3-23 } Topical, ity o f 14 mg/24 hr 04:00: Administer [place] patch 1 00 over 24 Medical Patch Hours, Branch Q24H, First dose on 05/07/21 at 2300, Until Discontinu ed, Routine pantoprazol Yes 40mg 40 mg, [facility] ers e 05-08 Oral, ity of (PROTONIX) 03:00: DAILY, [place] EC tablet 00 First dose Medi wero 40 mg on [facility] Branch 05/07/21 at 2200, Until Discontinu ed, Routine cyclobenzap Yes 10mg 10 mg, [facility] ers rine 05-08 Oral, TID, ity of (FLEXERIL) 03:00: First dose [place] tablet 10 00 on [facility] Medical mg 05/07/21 at Branch 2200, Until Discontinu ed, Routine gabapentin Yes 300mg 300 mg, Uni vers (NEURONTIN) 05-08 Oral, BID, it y of capsule 300 03:00: First dose [place] mg 00 on [facility] 05/07/21 at Branch 2200, Until Discontinu ed, Routine pregabalin 2021- No 50mg 50 mg, Univ ers (LYRICA) 05-08 Oral, BID, ity of capsule 50 03:00: 06:51 First dose [place] mg 00 :31 on [facility] 05/07/21 at Branch 2200, Until Discontinu ed, Routine morpHINE 2021- No 2mg 2 mg, Slow Un mona injection 2 05-08 IV Push, ity of mg 02:44: 19:29 Q4HPRN, [place] 06 :32 Starting Medical on [facility] Branch 05/07/21 at 2144, Until 05/08/21 at 1429, Routine, Pain (scale 7-10) HYDROcodone 2021- No 2{tbl} 2 tablet, Univers -acetaminop 05-08 Oral, ity of hen (NORCO 02:43: 19:29 Q6HPRN, [place] as 5) 5-325 mg 59 :34 Starting Medi wero tablet 2 on Thu Branch tablet 05/07/21 at 2143, Until Deanna 05/09/21 at 1429, Routine, Pain (scale 4-6) docusate Yes [id number] 100mg Take 1 Un mona 100 mg 3-23 capsule by ity of capsule 00:00: mouth [place] 00 daily. Medical Branch docusate Yes [id number] 100mg Take 1 Un mona 100 mg 3-23 capsule by ity of capsule 00:00: mouth [place] 00 daily. Medical Branch docusate Yes [id number] 100mg Take 1 Un mona 100 mg 3-23 capsule by ity of capsule 00:00: mouth [place] 00 daily. Medical Branch docusate Yes [id number] 100mg Take 1 Un mona 100 mg 3-23 capsule by ity of capsule 00:00: mouth [place] 00 daily. Medical Branch docusate Yes [id number] 100mg Take 1 Un mona 100 mg 3-23 capsule by ity of capsule 00:00: mouth [place] 00 daily. Medical Branch sennosides 2021- No [id number] 8.6mg Take 1 Univers 8.6 mg 3-23 - tablet by ity of tablet 00:00: 04:59 mouth [place] 00 :00 daily for Medical 30 days. Branch pantoprazol 2021- No [id number] 40mg Take 1 Univers e 40 mg EC -08 06- tablet by ity of tablet 00:00: 04:59 mouth [place] 00 :00 daily for Medical 14 days. Branch QUEtiapine 2021- No [id number] 50mg Take 1 Univers 50 mg -08 06-07 tablet by ity of tablet 00:00: 04:59 mouth [place] 00 :00 every Medical evening Branch for 14 days. doxycycline 2021- No [id number] 100mg Take 1 Univers hyclate 100 3-08 06- capsule by i ty of mg capsule 00:00: 04:59 mouth 2 [place] as 00 :00 (two) Medical times Branch daily for 10 days. levoFLOXaci 2021- No [id number] 750mg Take 1 Univers n 750 mg 3-23 -03 tablet by ity o f tablet 00:00: 04:59 mouth [place] 00 :00 every 24 Medical (twenty-fo Branch ur) hours for 10 days. enoxaparin Yes 40mg 40 mg, Unive rs (LOVENOX) 3-22 Subcutaneo ity of injection 22:00: [place]ILY, [place] 40 mg 00 First dose Medical on [facility] Branch 05/07/21 at 1700, Until Discontinu ed, Routine NaCl 0.9% 2021- No 1000mL at 999 Uni vers (NS) bolus 05-07 mL/hr, ity of infusion 19:45: 23:06 1,000 mL, Jose R as 1,000 mL 00 :00 IV Medical Infusion, Branch ONCE, 1 dose, On Thu05/07/21 at 1445, STAT ondansetron Yes 4mg 4 mg, Slow Univers (ZOFRAN 05-07 IV Push, ity of (PF)) 19:30: [place], [place] injection 4 37 Starting Medi wero mg on [facility] 05/07/21 at 1430, Until Discontinu ed, Routine, Nausea and Vomiting (N/V) morpHINE 2021- No 4mg 4 mg, Slow Un mona injection 4 05-0723 IV Push, ity of mg 19:30: 02:44 Q4HPRN, [place] 32 :22 Starting Medical on [facility] Branch 05/07/21 at 1430, Until [facility] 05/07/21 at 2144, Routine, Pain (scale 7-10) acetaminoph Yes 650mg 650 mg, Un mona en 05-07 Oral, ity of (TYLENOL) 19:30: [place], [place] tablet 650 24 Starting Medic al mg on [facility] 05/07/21 at 1430, Until Discontinu ed, Routine, [...] of NS 250 mL 19:15: 20:32 from [place] RTU IV 00 :00 1,258.5 mg Medical Piggy[place] = 15 mg/kg Bran ch 1,250 mg ?83.9 kg), IV [place]gy[place], ONCE, 1 dose, On 05/07/21 at 1415, Administer over 90 Minutes
Reason for Anti-Infec tive: Documented Infection< br>Documen isai Infection Site: Skin / Soft Tissue
Duration of Therapy: Other (see Comments) iopamidol 2021- No [id number] 120mL 120 mL, Univers (ISOVUE 05-07 Intravenou ity o f 370-500 mL) 15:58: 15:57 s, ONCE, 1 [place] injection 00 :00 dose, On Medica l 120 mL Tu Branch 05/07/21 at 1115, Routine ARIPiprazol 2020- [...] QD Take 1 Met hodi e (ABILIFY) 9 10-10 tablet (10 s t 10 MG [...] QD Take 1 Met hodi e (ABILIFY) 9 10-10 tablet (10 s t 10 MG [...] 100mg QD Take 1 Metho di mononitrate 9- 10-[address] , vit B1, 00:00: [...] 2020-2020- No 50mg QD Take 1 Meth felsiha (ZOLOFT) 50 10-25 10-10 tablet (50 s [...] 100mg QD Take 1 Metho di mononitrate 9- 10-[address] , vit B1, 00:00: [...] mouth daily for 30 days. ARIPiprazol 2020- 202- No 10mg QD Take 1 Met hodi [...] 100mg QD Take 1 Metho di mononitrate 9- 10-[address] , vit B1, 00:00: [...] Take 1 Meth felisha (FOLVITE) 1 10-25 tablet (1 st MG tablet 00:00: 04:59 [...] :00 (two) Medical times Branch daily. haloperidol 2020-2020- No 1mg Take 1 mg Univers 1 mg tablet -27 05-27 by mouth 2 i ty of 08:24: 00:00 (two) [place] 41 :00 times Medical daily. Branch diazePAM 2018- No 5mg 5 mg, Univers (VALIUM) 11-05 Oral, ity of tablet 5 mg 06:15: 05:04 [place], Fri Medical 11/05/18 at Branch 0115, ANAMARIA haloperidol 2019-0 Yes 1mg Take 1 mg U nivers 1 mg tablet 9-20 by mouth 2 it y of 03:40: (two) [place] 52 times Medical daily. Branch divalproex 2019-0 Yes 500mg Take 500 Un mona sodium 9-20 mg by ity of (DEPAKOTE 03:40: mouth 2 [place] ORAL) 02 (two) Medical times [place] daily. Immunizations Ordered Immunization Filled Immunization Date Status Commen ts Source Name Name PFIZER COVID-19 MRNA 2020-10-24 Completed Meth odist VACCINATION 00:00:00 [facility] PFIZER COVID-19 MRNA 2020-10-24 Completed Meth odist VACCINATION 00:00:00 [facility] PFIZER COVID-19 MRNA 2020-10-24 Completed Meth odist VACCINATION 00:00:00 [facility] PFIZER COVID-19 MRNA 2020-10-24 Completed Meth odist VACCINATION 00:00:00 [facility] PFIZER COVID-19 MRNA 2020-10-24 Completed Meth odist VACCINATION 00:00:00 [facility] PFIZER COVID-19 MRNA 2020-10-24 Completed Meth odist VACCINATION 00:00:00 [facility] PFIZER COVID-19 MRNA 2020-10-24 Completed Meth odist VACCINATION 00:00:00 [facility] PFIZER COVID-19 MRNA 2020-10-24 Completed Meth odist VACCINATION 00:00:00 [facility] PFIZER COVID-19 MRNA 2020-10-24 Completed Meth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 At-Risk Patients (6 to 64 Years) (1 - PCV)] Future Scheduled 2021-07-02 Hepatitis C screening [facility] Test 10:04:06 (procedure) [code = 122253448] Future Scheduled 2021-07-02 COVID-19 VACCINE (3 - [facility] Test 10:04:06 Booster) [code = COVID-19 VACCINE (3 - Booster)] Future Scheduled 2021-07-02 INFLUENZA VACCINE Method [facility] Test 10:04:06 [code = INFLUENZA VACCINE] Future Scheduled 2021-05-23 Hepatitis C screening [facility] Test 21:56:30 (procedure) [code = 110396301] Future Scheduled 2021-05-23 COVID-19 VACCINE (3 - [facility] 21:56:30 Booster) [code = COVID-19 VACCINE (3 - Booster)] Future Scheduled 2021-05-23 INFLUENZA VACCINE [facility] Test 21:56:30 [code = INFLUENZA VACCINE] Future Scheduled 2021-05-23 [facility] Test 21:56:30 (procedure) [code = 153329860] Future Scheduled 2021-05-23 COVID-19 VACCINE (3 - [facility] Test 21:56:30 Booster) [code = COVID-19 VACCINE (3 - Booster)] Future Scheduled 2021-05-23 [facility]ZA VACCINE [facility] 21:56:30 [code = INFLUENZA VACCINE] Future Scheduled 2021-05-23 Hep[facility] C screening [facility] Test 21:56:30 (procedure) [code = 447054871] Future Scheduled 2021-05-23 COVID-19 VACCINE (3 - [facility] Test 21:56:30 Booster) [code = COVID-19 VACCINE (3 - Booster)] Future Scheduled 2021-05-23 INFLUENZA VACCINE [facility] Test 21:56:30 [code = INFLUENZA VACCINE] Future Scheduled 2021-01-31 Hepatitis C screening [facility] Test 17:19:18 (procedure) [code = 247818407] Future Scheduled 2021-01-31 INFLUENZA VACCINE [facility] Test 17:19:18 [code = INFLUENZA VACCINE] Future Scheduled 2021-01-31 COVID-19 VACCINE (3 - [facility] Test 17:19:18 Booster) [code = COVID-19 VACCINE (3 - Booster)] Future Scheduled 2021-01-31 [facility] C screening [facility] Test 17:19:18 (procedure) [code = 836352971] Future Scheduled 2021-01-31 INFLUENZA VACCINE Method [facility] Test 17:19:18 [code = INFLUENZA VACCINE] Future Scheduled 2021-01-31 COVID-19 VACCINE (3 - [facility] Test 17:19:18 Booster) [code = COVID-19 VACCINE (3 - Booster)] Encounters Start End Encounter Admission Attending Care Care Encounter Source Date/Time Date/Time Type Type Clinicians Facility Department ID 2021-06-23 Outpatient [facility] [id number] [place] 01:45:[id number] 2021-03-14 Outpatient [id number] [facility] CARLENE [id number] [facility] 13:33:41 [facility] 2021-03-14 Outpatient [id number] [facility] REF [id number] E[facility] 13:33:01 [facility] 2021-02-11 Inpatient MENDEL, [facility] [id number] H [place] 00:00:00 [facility] 2021-02-11 Inpatient MENDEL, [facility] [id number] H [place] 00:00:00 [facility] 2021-01-24 Inpatient VIKASH, [facility] [id number] [place] 07:00:09 [facility] 2021-01-24 Inpatient VIKASH, [facility] [id number] [place] 07:00:09 [facility] 2021-01-22 Inpatient [facility] [id number] H arr[place] 00:00:00 [facility] 2021-01-22 Inpatient [facility] [id number] H arr[place] 00:00:00 [facility] 2021-01-21 Inpatient [facility] [id number] H arris 00:00:00 [facility] 2021-01-21 Inpatient [facility] [id number] H [place] 00:00:00 [facility] 2021-01-20 Inpatient [facility] [id number] H [place] 00:00:00 [facility] 2021-01-20 Inpatient [facility] [id number] H [place] 00:00:00 [facility] 2021-01-18 Inpatient [facility] [id number] H [place] 00:00:00 [facility] 2021-01-18 Inpatient [facility] [id number] H [place] 00:00:00 [facility] 2021-01-17 Inpatient [facility] [id number] H [place] 00:00:00 [facility] 2021-01-17 Inpatient [facility] [id number] H [place] 00:00:00 [facility] 2021-01-16 Inpatient [facility] [id number] H [place] 00:00:00 [facility] 2021-01-16 Inpatient [facility] [id number] H [place] 00:00:00 [facility] 2021-01-15 [facility] [id number] [place] 00[facility]00:00 [facility]01-15 [facility] [id number] [place] 00:00:00 [facility] 2021-01-13 Inpatient [facility] [id number] H arr[place] 00:00:00 [facility] 2021-01-13 Inpatient [facility] [id number] H arris 00:00:00 [facility] 2021-01-12 Inpatient [facility] [id number] H arr[place] 00:00:00 [facility] 2021-01-12 Inpatient [facility] [id number] H [place] 00:00:00 [facility] 2021-01-11 Inpatient [facility] [id number] H [place] 00:00:00 [facility] 2021-01-11 Inpatient [facility] [id number] H [place] 00:00:00 [facility] 2021-01-10 Inpatient [facility] [id number] H arr[place] 00:00:00 [facility] 2021-01-10 Inpatient [facility] [id number] H [place] 00:00:00 [facility] 2021-01-09 Inpatient [facility] [id number] H [place] 00:00:00 [facility] 2021-01-09 Inpatient [facility] [id number] H [place] 00:00:00 [facility] 2021-01-08 [facility] [id number] [place] 00:00:00 [facility] 2021-01-08 [facility] [id number] [place] 00:00:00 [facility] 2021-01-06 Inpatient [facility] [id number] H [place] 00:00:00 [facility] 2021-01-06 Inpatient [facility] [id number] H [place] 00:00:[facility] 2021-01-05 [facility] [id number] [place] 00:00:00 [facility] 2021-01-05 [facility] [id number] [place] 00:00:00 [facility] 2021-01-04 [facility] [id number] [place] 00:00:00 [facility] 2021-01-04 [facility] [id number] [place] 00:00:00 [facility] 2021-01-03 [facility] [id number] [place] 00:00:00 [facility] 2021-01-03 [facility] [id number] [place] 00:00:00 [facility] 2021-01-02 Inpatient [facility] [id number] H arr[place] 00:00:00 [facility] 2021-01-02 Inpatient [facility] [id number] H [place] 00:00:00 [facility] 2020-12-30 Inpatient 1 MAREK, [facility] [id number] H arris 22:32:00 BUSHRA Reid h 2020-12-30 Inpatient PAULSON, [facility] [id number] [place] 00:00:00 [facility] 2020-12-30 Inpatient PAULSON, [facility] [id number] [place] 00:00:00 [facility] 2020-12-30 Inpatient PAULSON, [facility] [id number] [place] 00:00:00 [facility] 2020-12-30 Inpatient PAULSON, [facility] [id number] [place] 00:00:00 [facility] 2021-10-01 2021-10-02 Emergency X ALLYN [facility] ERT [id number] [facility] 23:42:00 04:47:00 MICHAEL pinto [facility] 2021-10-01 2021-10-02 Emergency Joy Barillas [facility] [id number] [id number] [facility] 23:42:00 04:47:00 Michael Phillips [id number] ity [facility] [id number] [facility] [phone] [facility] [address] 2021-09-23 2021-09-23 Outpatient [facility] PRIV PRIV [id number] [facility] 00:00:00 00:00:00 d_J [id number] Medica l 2021 2021 Outpatient [facility]Tod PRIV PRIV [id number] [facility] 00:00:00 00:00:00 d_J [id number] Medica l 2021-09-17 2021-09-17 Orders Doctor CASTANEDA [id number] [facility] 00:00:00 00:00:00 Only Unassigned, DUDLEY [id number] [facility] [id number] [facility] [phone] [facility] 009 Branch 2021-09-16 2021-09-16 Outpatient GC_[facility]_Tod PRIV PRIV [id number] [facility] 00:00:00 00:00:00 d_J [id number] Medica l 2021-09-13 2021-09-13 Outpatient [facility]_Tod PRIV PRIV [id number] [facility] 00:00:00 00:00:00 d_J [id number] Medica l 2021-09-13 2021-09-13 Outpatient Michael, PRIV PRIV [id number] 00:00:00 00:00:00 Marina 72a-11ed-8 [id number] 2021-09-12 2021-09-12 Outpatient [facility]_Tod PRIV PRIV [id number] [facility] 00:00:00 00:00:00 d_J [id number] Medica l 2021-09-12 2021-09-12 Outpatient Lilly, PRIV PRIV [id number] 00:00:00 00:00:00 Jonah Garcia 1ad-11ed-9 [id number] 2021-09-11 2021-09-11 Outpatient [facility]_Tod PRIV PRIV [id number] [facility] 00:00:00 00:00:00 d_J [id number] Medica l 2021-09-03 2021-09-03 Outpatient [facility]_Tod PRIV PRIV [id number] [facility] 10:03:00 10:03:00 d_J [id number] Medica l 2021-09-03 2021-09-03 Outpatient Michael, PRIV PRIV [id number] [id number] 00:00:00 00:00:00 Marina cf8-11ed-9 [id number] 2021-08-30 2021-08-30 Outpatient [facility]_Tod PRIV PRIV [id number] [facility] 08:32:00 08:32:00 d_J [id number] Medica l 2021-08-28 2021-08-28 Telephone DEMARCO Murillo 1.2.840.114 [id number] [facility] 00:00:00 00:00:00 [facility] [id number] blair [facility] 4.2.7.2.686 Jose R as ANSLEY?BLEA [phone] [address] MEDICAL OFFICE BUILDING 2021-08-28 2021-08-28 Orders Doctor TONYA [id number] [id number] [facility] 00:00:00 00:00:00 Only Unassigned, [place] [id number] ity of [place] [facility] 4.2.7.2.686 Jose R as [phone] [address] 2021-08-25 2021-08-25 Outpatient [facility]_Tod PRIV PRIV [id number] [facility] 11:00:00 11:00:00 d_J [id number] Medica l 2021-08-23 2021-08-23 Outpatient GC_[facility]_Tod PRIV PRIV [id number] [facility] 10:25:00 10:25:00 d_J [id number] Medica l 2021-08-22 2021-08-22 Outpatient GC_[facility]_Tod PRIV PRIV [id number] [facility] 11:45:00 11:45:00 d_J [id number] Medica l 2021-08-19 2021-08-19 Outpatient GC_[facility]_Tod PRIV PRIV [id number] [facility] 12:00:00 12:00:00 d_J [id number] Medica l 2021-08-16 2021-08-16 Outpatient [facility]_Tod PRIV PRIV [id number] [facility] 04:10:00 04:10:00 d_J [id number] Medica l 2021-08-16 2021-08-16 Outpatient Michael, PRIV PRIV [id number] a-[id number] 00:00:00 00:00:00 Marina 068-11ed-8 [id number] 2021-08-14 2021-08-14 Outpatient [facility]_Tod PRIV PRIV [id number] [facility] 09:12:00 09:12:00 d_J [id number] Medica l 2021-08-14 2021-08-14 Outpatient Michael, PRIV PRIV [id number] c-f 00:00:00 00:00:00 Marina df1-11ec-a [id number] 2021-08-11 2021-08-11 Outpatient GC_[facility]_Tod PRIV PRIV [id number] [facility] 10:44:00 10:44:00 d_J [id number] Medica l 2021-08-09 2021-08-09 Outpatient GC_BAHC_Tod PRIV PRIV [id number] [facility] 12:22:00 12:22:00 d_J [id number] Medica l 2021-08-08 2021-08-08 Outpatient GC_BAHC_Tod PRIV PRIV [id number] [facility] 04:53:00 04:53:00 d_J [id number] Medica l 2021-08-05 2021-08-05 Outpatient GC_[facility]_Tod PRIV PRIV [id number] [facility] 11:07:00 11:07:00 d_J [id number] Medica l 2021-08-02 2021-08-02 Outpatient GC_[facility]_Tod PRIV PRIV 239 [id number] [facility] 09:06:00 09:06:00 d_J [id number] Medica l 2021-08-02 2021-08-02 Outpatient Michael, PRIV PRIV [id number] [id number] 00:00:00 00:00:00 Marina 5bf-11ec-a [id number] 2021-07-30 2021-07-30 Outpatient GC_[facility]_Tod PRIV PRIV [id number] [facility] 03:48:00 03:48:00 d_J [id number] Medica l 2021-07-30 2021-07-30 Outpatient Michael, PRIV PRIV [id number] [id number] 00:00:00 00:00:00 Marina 327-11ec-a [id number] 2021-07-26 2021-07-26 Outpatient [facility]_Tod PRIV PRIV [id number] [facility] 08:05:00 08:05:00 d_J [id number] Medica l 2021-07-26 2021-07-26 Outpatient Michael, PRIV PRIV [id number] a-f 00:00:00 00:00:00 Marina [id number] 2021-07-20 2021-07-20 Outpatient GC_[facility]_Tod PRIV PRIV [id number] [facility] 10:41:00 10:41:00 d_J [id number] Medica l 2021-07-18 2021-07-18 Outpatient GC_[facility]_Tod PRIV PRIV [id number] [facility] 02:03:00 02:03:00 d_J [id number] Medica l 2021-07-18 2021-07-18 Outpatient Lilly, PRIV PRIV [id number] 00:00:00 00:00:00 Jonah Garcia 40c-11ec-9 [id number] 7405-05-30 2021-07-15 Outpatient [facility]_Tod PRIV PRIV [id number] [facility] 10:43:00 10:43:00 d_J [id number] Medica l 2021-07-11 2021-07-11 Outpatient GC_BA[facility]_Tod PRIV PRIV [id number] [facility] 01:44:00 01:44:00 d_J [id number] Medica l 2021-07-05 2021-07-05 Outpatient GC_[facility]_Tod PRIV PRIV [id number] [facility] 09:29:00 09:29:00 d_J [id number] Medica l 2021-07-05 2021-07-05 Outpatient Michael, PRIV PRIV [id number] 00:00:00 00:00:00 Marina 04b-11ec-9 [id number] 2021-07-02 2021-07-02 Outpatient [facility]_Tod PRIV PRIV [id number] [facility] 10:48:00 10:48:00 d_J [id number] Medica l 2021-07-02 2021-07-02 Outpatient Michael, PRIV PRIV [id number] e-[id number] 00:00:00 00:00:00 Marina [id number] 2021-06-30 2021-06-30 Outpatient GC_[facility]_Tod PRIV PRIV [id number] [facility] 06:52:00 06:52:00 d_J [id number] Medica l 2021-06-25 2021-06-25 Outpatient GC_BAHC_Tod PRIV PRIV [id number] [facility] 01:28:00 01:28:00 d_J [id number] Medica l 2021-06-25 2021-06-25 Outpatient Michael, PRIV PRIV [id number] c-d 00:00:00 00:00:00 Marina 5fa-11ec-8 [id number] 2021-06-23 2021-06-23 Outpatient GC_[facility]_Tod PRIV PRIV [id number] [facility] 10:46:00 10:46:00 d_J [id number] Medica l 2021-06-18 2021-06-18 Outpatient GC_BAHC_Tod PRIV PRIV [id number] [facility] 01:40:00 01:40:00 d_J [id number] Medica l 2021-06-14 2021-06-14 Outpatient GC_BA[facility]_Tod PRIV PRIV [id number] [facility] 08:35:00 08:35:00 d_J [id number] Medica l 2021-06-14 2021-06-14 Outpatient Michael, PRIV PRIV [id number] [id number] 00:00:00 00:00:00 Marina [id number] 2021-06-11 Outpatient [facility]_Tod PRIV PRIV [id number] [facility] 09:50:00 09:50:00 d_J [id number] Medica l 2021-06-11 2021-06-11 Outpatient Michael, PRIV PRIV [id number] 2-[id number] 00:00:00 00:00:00 Marina [id number] 2021-06-06 2021-06-06 Outpatient [facility]_Tod PRIV PRIV [id number] [facility] 01:01:00 01:01:00 d_J [id number] Medica l 2021-06-05 2021-06-05 Outpatient GC_BA[facility]_Tod PRIV PRIV [id number] [facility] 03:19:00 03:19:00 d_J [id number] Medica l 2021-06-04 2021-06-04 Outpatient GC_BA[facility]_Tod PRIV PRIV [id number] [facility] 01:42:00 01:42:00 d_J [id number] Medica l 2021-06-04 2021-06-04 Outpatient Michael, PRIV PRIV [id number] 2-c 00:00:00 00:00:00 Marina 4ac-11ec-b [id number] 2021-06-04 2021-06-04 Outpatient Michael, PRIV PRIV [id number] a-f 00:00:00 00:00:00 Marina ecc-11ec-9 [id number] 2021-05-30 2021-05-30 Outpatient [facility]_Tod PRIV PRIV [id number] [facility] 11:28:00 11:28:00 d_J [id number] Medica l 2021-05-30 2021-05-30 Outpatient Lilly, PRIV PRIV [id number] ac8-c 00:00:00 00:00:00 Jonah Garcia [id number] 2021-05-30 2021-05-30 Outpatient Lilly, PRIV PRIV [id number] 00:00:00 00:00:00 Jonah Garcia [id number] 2021-05-28 2021-05-28 Outpatient [facility]_Tod PRIV PRIV [id number] [facility] 01:25:00 01:25:00 d_J [id number] Medica l 2021-05-28 2021-05-28 Outpatient Michael, PRIV PRIV [id number] 6-[id number] 00:00:00 00:00:00 Marina 046-11ec-a [id number] 2021-05-28 2021-05-28 Outpatient Michael, PRIV PRIV [id number] 4-f 00:00:00 00:00:00 Marina 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 [id number] [facility] 08:26:00 04:30:00 MARTIN pinto [facility] 2021-05-07 2021-05-08 Emergency Tono Roberto [facility] 1.2.840. [id number] [facility] 08:26:00 04:30:00 [facility] [place] [id number] [id number] [address] 2021-03-28 2021-03-28 [facility] [id number] [place] 00:00:00 00:00:00 GALE maldonado 2021-03-20 2021-03-20 Outpatient PASCUAL MAHAN [facility] [id number] [place] 00:00:00 00:00:00 [facility] 2020-12-30 2021-02-28 Inpatient [facility] [id number] [place] 22:32:00 18:41:00 BUSHRA Booker 2020-12-30 2021-02-28 [id number] [place] 22:32:00 18:41:00 BUSHRA Booker 2021-02-15 2021-02-15 Inpatient [facility] [id number] [place] 10:50:13 11:18:57 Health 2021-02-15 2021-02-15 Inpatient [facility] [id number] [place] 10:50:13 11:18:57 Health 2021-02-14 2021-02-14 Inpatient [facility] [id number] [place] 16:43:15 18:41:33 Health 2021-02-14 2021-02-14 Inpatient [facility] [id number] [place] 16:43:15 18:41:33 Health 2021-02-14 2021-02-14 Inpatient [facility] [id number] [place] 07:24:16 09:18:07 Health 2021-02-14 2021-02-14 Inpatient [facility] [id number] [place] 07:24:16 09:18:07 Health 2021-01-31 2021-01-31 Inpatient [facility] [id number] [place] 01:03:14 03:25:48 Health 2021-01-31 2021-01-31 Inpatient [facility] [id number] [place] 01:03:14 03:25:48 Health 2021-01-25 2021-01-25 Inpatient [facility] [id number] [place] 01:35:50 03:05:16 Health 2021-01-25 2021-01-25 Inpatient [facility] [id number] [place] 01:35:50 03:05:16 Health 2021-01-23 2021-01-23 Inpatient [facility] [id number] [place] 02:10:17 04:59:36 Health 2021-01-23 2021-01-23 Inpatient [facility] [id number] [place] 02:10:17 04:59:36 Health 2021-01-21 2021-01-21 Inpatient VIKASH, [facility] [id number] [place] 15:43:59 16:18:10 [facility] 2021-01-21 2021-01-21 Inpatient VIKASH, [facility] [id number] [place] 15:43:59 16:18:10 FIORELLAKAYLEE [facility] I 2021-01-13 2021-01-13 Inpatient [facility] [id number] [place] 16:20:12 17:12:27 Health 2021-01-13 2021-01-13 Inpatient [facility] [id number] [place] 16:20:12 17:12:27 Health 2021-01-07 2021-01-07 Inpatient [facility] [id number] [place] 18:28:43 18:28:46 Health 2021-01-07 2021-01-07 Inpatient [facility] [id number] [place] 18:28:43 18:28:46 Health 2021-01-07 2021-01-07 Inpatient [facility] [id number] [place] 00:12:42 01:07:25 Health 2021-01-07 2021-01-07 Inpatient [facility] [id number] [place] 00:12:42 01:07:25 Health 2021-01-04 2021-01-04 Inpatient [facility] [id number] [place] 17:11:58 18:14:36 Health 2021-01-04 2021-01-04 Inpatient [facility] [id number] [place] 17:11:58 18:14:36 [facility] 2021-01-04 2021-01-04 Inpatient GAVINA, [facility] [id number] [place] 13:40:49 15:55:44 [facility] 2021-01-04 2021-01-04 Inpatient GAVINA, [facility] [id number] [place] 13:40:49 15:55:44 [facility] 2021-01-03 2021-01-03 Inpatient [facility] [id number] [place] 17:58:59 17:59:03 [facility] 2021-01-03 2021-01-03 Inpatient [facility] [id number] [place] 17:58:59 17:59:03 [facility] 2021-01-01 2021-01-01 Inpatient [facility] [id number] [place] 16:44:03 16:44:07 [facility] 2021-01-01 2021-01-01 Inpatient [facility] [id number] [place] 16:44:03 16:44:07 [facility] 2021-01-01 2021-01-01 Inpatient CARTER, [facility] [id number] [place] 08:36:00 09:12:12 [facility] 2021-01-01 2021-01-01 Inpatient EMMA, [facility] [id number] [place] 08:36:00 09:12:12 [facility] 2021-01-01 2021-01-01 Inpatient [facility] [id number] [place] 07:46:21 08:35:30 [facility] 2021-01-01 2021-01-01 Inpatient [facility] [id number] [place] 07:46:21 08:35:30 [facility] 2021-01-01 2021-01-01 Inpatient ROLDAN, [facility] [id number] [place] 02:09:24 03:31:22 [facility] 2021-01-01 2021-01-01 Inpatient YULI, [facility] [id number] [place] 02:09:24 03:31:22 [facility] 2020-12-31 2020-12-31 Inpatient MAREK, [facility] [id number] [place] 05:17:16 06:34:53 BUSHRA Booker 2020-12-31 2020-12-31 [facility] [id number] [place] 05:17:16 06:34:53 BUSHRA Booker 2020-12-31 2020-12-31 Inpatient [facility] [id number] [place] 01:50:33 06:34:15 [facility] 2020-12-31 2020-12-31 Inpatient [facility] [id number] [place] 01:50:33 06:34:15 [facility] 2020-12-31 2020-12-31 Inpatient [facility] [id number] [place] 03:50:31 04:54:13 Health 2020-12-31 2020-12-31 Inpatient [facility] [id number] [place] 03:50:31 04:54:13 [facility] 2020-12-31 2020-12-31 Inpatient [facility] [id number] [place] 01:43:22 04:38:47 [facility] 2020-12-31 2020-12-31 Inpatient [facility] [id number] [place] 01:43:22 04:38:47 [facility] 2020-12-30 2020-12-30 Emergency [facility] [id number] [place] 22:46:36 23:04:47 Health 2020-12-30 2020-12-30 Emergency [facility] [id number] [place] 22:46:36 23:04:47 Health 2020-12-30 2020-12-30 Emergency [facility] [id number] [place] 22:46:20 23:04:03 [facility] 2020-12-30 2020-12-30 Emergency [facility] [id number] [place] 22:46:20 23:04:03 [facility] 2020-12-30 2020-12-30 Emergency [facility] [id number] [place] 22:47:41 23:03:11 [facility] 2020-12-30 2020-12-30 Emergency [facility] [id number] [place] 22:47:41 23:03:11 [facility] 2020-12-30 2020-12-30 Emergency LAKHWINDER, [facility] [id number] [place] 00:00:00 00:00:00 [facility] 2020-12-30 2020-12-30 Emergency LAKHWINDER, [facility] [id number] [place] 00:00:00 00:00:00 [facility] [employer] 2020-12-20 2020-12-20 Emergency EM Uziel HCAMIMI MALIKA [id number] [facility] 06:26:00 16:34:00 Erich 52 [facility] 2020-11-15 2020-11-16 Emergency Eusebia Ruelas 1.2.840 .1 [id number] Methodi 00:55:00 14:35:00 William Nunes 40723.1.[address] Mio Sorensen 3.430.2.7 Hospita .3.697260 l .8 2020-11-14 2020-11-14 Emergency Manju 1.2.840.1 [id number] [id number] Methodi 15:47:00 16:03:00 William Langston 65834.1.[address] 3.430.2.7 Hospit a .3.792488 l .8 2020-10-22 2020-10-24 [facility] Kingsley Dennis JimenezBlayne 1.2.840.1 [id number] Methodi 16:52:00 16:26:00 Encounter Madeleine Gordillo 04502.1.[address] Jessica Awad 3.430.2.7 Hospita NjLashaun dunbar .3.538492 l .8 2020-10-16 2020-10-16 Emergency EM Crismon, HCACR MALIKA [id number] [facility] 00:20:00 08:00:00 Gale 21 [facility] 2020-10-06 2020-10-06 Emergency EM Zia, HCAKW MALIKA [id number] [facility] 01:57:00 20:14:00 Darlene 71 [facility] 2020-09-05 2020-09-05 Emergency EM Michael Montero [facility] MALIKA [id number] [facility] 11:17:00 18:22:00 21 [facility] 2020-09-03 2020-09-03 Emergency EM Pardo, H[facility] MALIKA [id number] [facility] 03:35:00 15:00:00 Farhad Maradiaga [facility] 2020-09-02 2020-09-03 Emergency EM Kylah, Michael [facility] MALIKA [id number] [facility] 23:16:00 01:53:00 82 [facility] 2020-08-11 2020-08-12 Emergency AURE Zeng, [facility] MALIKA [id number] [facility] 11:12:00 00:40:00 Naim 18 [facility] 2020-07-12 2020-07-12 Emergency [facility] [id number] 03:16:00 05:05:00 Michael Nichols 350.1.13.10 [place] 4.2.7.2.686 [place] [id number] [facility] 2020-07-12 2020-07-12 Emergency [facility] [id number] [id number] 5814 [facility] 03:16:00 05:05:00 Michael Nichols 350.1.13.10 ity [facility] 4.2.7.2.686 [facility] [id number] [address] 2020-07-12 2020-07-12 Emergency X [facility] ERT [id number] [facility] 03:16:00 03:16:00 OTONIEL blair [facility] 2019-08-29 2019-09-01 Inpatient [facility] MAL[facility] [id number] [facility] 22:17:00 04:16:38 62 [facility] 2019-06-22 2019-06-24 Inpatient [facility] MAL[facility] [id number] [facility] 13:23:00 06:39:56 74 [facility] 2019-02-21 2019-02-21 Outpatient [facility] [id number] [place] 00:00:00 00:00:00 Health 2019-02-19 2019-02-19 Emergency [facility] TAMEKA [id number] 07:23:00 07:23:00 [facility] 2019-02-01 2019-02-01 Outpatient [facility] [id number] [place] 22:11:49 22:11:49 [facility] 2018-11-04 2018-11-05 Emergency [facility] [id number] 20:38:48 05:13:00 Brown Nichols 350.1.13.10 [place] 4.2.7.2.686 [place] [id number] 084 2018-11-04 2018-11-05 Emergency Andrés [facility] [id number] [facility] 20:38:48 05:13:00 Brown Nichols 350.1.13.10 i ty of [place] 4.2.7.2.686 [facility] [id number] [place] [id number] [place] 2018-10-18 2018-10-18 Emergency [facility] MED [id number] [place] 06:08:40 06:08:40 [facility] 2017-04-02 2017-04-02 Outpatient [facility] [id number] [place] 00:00:00 00:00:00 [facility] 2017-03-29 2017-03-29 Emergency [facility] [id number] [place] 00:00:48 00:00:48 [facility] 2017-03-22 2017-03-22 Emergency E SAMANTHAGULF [facility] [id number] 11:46:00 11:46:00 [facility] 2017-03-16 2017-03-20 Inpatient E [facility]FFGULF [facility] [id number] 20:46:00 13:41:00 [facility] 2017-01-26 2017-01-26 Outpatient [facility] [id number] [facility] 00:00:00 00:00:00 Results Test Description Test Time Test Comments Results Result Comments Source TROPONIN I 2021-10-02 08:33:49 Test Item Value Reference Range Interpretation Comme nts TROPONIN I (test code = 0.001 ng/mL See_Comment [Au tomated message] The [id number]) system which ge nerated this result tra [...] biotin. Lab Interpretation Normal (test code = 19399-8) [facility] [id number] 05:55:41 Test Item Value Reference Interpretation Comments Range TROPONIN I (test 0.004 ng/mL See_Comment [Automated code = 6391940187) message] The system which generated this result [...] biotin. Lab Interpretation Normal (test code = 10843-4) [facility] METABOLIC PANEL ([id number])2021-10-02 05:45:45 Test Item Value Reference Range Interpretation Comments NA (test code = 138 mmol/L 135-145 3201067754) K (test code = 3.9 mmol/L 3.5-5 0462640274) CL (test code = 103 mmol/L 98-108 9467514958) CO2 TOTAL (test code = 29 mmol/L 23-31 3947738228) AGAP (test code = 2-16 8981174767) BUN (test code = 11 mg/dL 7-23 3639468706) GLUCOSE (test code = 96 mg/dL 70-110 1997194623) CREATININE (test code = 0.60 mg/dL 0.6-1.25 5270805649) TOTAL BILI (test code = 1.1 mg/dL 0.1-1.3 3275106152) CALCIUM (test code = 8.9 mg/dL 8.6-10.6 0238960089) T PROTEIN (test code = 7.1 g/dL 6.3-8.2 7650584493) ALBUMIN (test code = 4.5 g/dL 3.5-5 1263743183) ALK PHOS (test code = 70 U/L 34-122 9133677609) ALTv (test code = 74 U/L 5-50 H 1742-6) AST(SGOT) (test code = 85 U/L 13-40 H 9494234549) eGFR (test code = mL/min/1.73m2 1763298426) GEORGIE (test code = GEORGIE) Association of [...] tests). Lab Interpretation Abnormal (test code = 43122-8) [facility]2022-[facility]-17 05:45:00 Test Item Value Reference Range Interpretation Comments LIPASE (test code = 3670399735) 40 U/L 0-220 Lab Interpretation (test code = Normal 96991-5) [facility] WITH [id number] 05:30:41 Test Item Value Reference Range Interpretation Comments [...] as normal/abnormal . HGB (test code = 17.0 g/dL 12.2-16.4 H 718-7) HCT (test code = 48.8 % 38.4-49.3 4544-3) MCV (test code = 94.8 fL 81.7-95.6 787-2) MCH (test code = 33.0 pg 26.1-32.7 H 785-6) MCHC (test code = 34.8 g/dL 31.2-35 786-4) RDW-SD (test code = 43.0 fL 38.5-51.6 40397-1) RDW-CV (test code = 12.4 % 12.1-15.4 788-0) PLT (test code = See_Comment [Automated 777-3) message] The sy stem which generated this result transmitted reference range : 150 - 328 10*3/ ?L. The reference r johan was not used to interpret this result as normal/abnormal . MPV (test code = 9.5 fL 9.8-13 L 23619-4) NRBC/100 WBC (test See_Comment [Automat ed code = 7320749946) message] The system which generated this result transmitted reference range : 0.0 - 10.0 /100 WBCs. The refer ence range was not u sed to interpret th is result as normal/abnormal . NRBC x10^3 (test code See_Comment [Auto mated = 1407903107) message] The s ystem which generated this result transmitted reference range : 10*3/?L. The reference range was not used to interpret this result as normal/abnormal . GRAN MAT (NEUT) % 61.8 % (test code = 770-8) IMM GRAN % (test code 1.50 % = 2121032173) LYMPH % (test code = 27.4 % 736-9) MONO % (test code = 8.3 % 5905-5) EOS % (test code = 0.5 % 713-8) BASO % (test code = 0.5 % 706-2) GRAN MAT x10^3(ANC) 4.11 10*3/uL 1.99-6.95 (test code = 7653517272) IMM GRAN x10^3 (test 0.10 10*3/uL 0-0.06 H code = 9016582641) LYMPH x10^3 (test code 1.82 10*3/uL 1.09-3.23 = 731-0) MONO x10^3 (test code 0.55 10*3/uL 0.36-1.02 = 742-7) EOS x10^3 (test code = 0.03 10*3/uL 0.06-0.53 L 711-2) BASO x10^3 (test code 0.03 10*3/uL 0.01-0.09 = 704-7) Lab Interpretation Abnormal (test code = 87094-6) [facility]PREH[facility] METABOLIC [id number] 04:00:00 Test Item Value Reference Range Interpretation Comments SODIUM (test code = 137 mmol/L 135-145 N NA) POTASSIUM (test 3.5 mmol/L 3.6-5.0 L code = K) CHLORIDE (test code 103 mmol/L 101-111 N = CL) CARBON DIOXIDE 26 mmol/L 21-31 N (test code = CO2) GLUCOSE (test code 63 mg/dl 70-100 L = GLU) BLOOD UREA NITROGEN 11 mg/dl 6-20 N (test code = BUN) GLOMERULAR >=60 max >60 The estimated FILTRATION RATE estimate glomerular (test code = GFR) filtration rate is computed usingpatient ra ce, age (>18), sex, and serum creatinin e. If anyof the ne eded data elements a re missing the Laboratory tricia ot compute an estimation of t he glomerular filtration rate . CREATININE (test 0.52 mg/dL 0.64-1.27 L code = CREAT) TOTAL PROTEIN (test 5.9 g/dL 6.7-8.2 L code = PROT) ALBUMIN (test code 3.6 g/dL 3.2-5.5 N = ALB) CALCIUM (test code 9.1 mg/dL 8.5-10.5 N = CA) BILIRUBIN TOTAL 0.80 mg/dL 0.2-1.3 N (test code = BILT) SGOT/AST (test code 32 U/L 10-42 N = AST) SGPT/ALT (test code 55 U/L 10-60 N = ALT) ALKALINE 70 U/L 42-121 N PHOSPHATASE (test code = ALKP) CBC W/AUTO [id number] 03:12:00 Test Item Value Reference Range Interpretation [...] BA#) 0.0 x10 3/uL 0.0-0.1 N TROPONIN [id number] 04:00:37 Test Item Value Reference Interpretation Comments Range TROPONIN I (test 0.000 ng/mL See_Comment [Automated code = 8743280342) message] The system which generated this result [...] biotin. Lab Interpretation Normal (test code = 66648-1) [facility]hamSEDIMENTATION [id number] 00:46:10 Test Item Value Reference Range Interpretation Comments ESR (test code = See_Comment H [Automated message] 6243355158) The system [employer] generated this result transmitted ref erence range: 0 - 10 m m/HR. The reference r johan was not used to interpret this result as normal/abnor mal. Lab Interpretation (test Abnormal code = 30557-8) [facility]hamGLYCOSYLATED HEMOGLOBIN (A1C)2021-05-07 20:23:40 Test Item Value Reference Range Interpretation Comments HGB A1C (test code = 5.3 % 4.0-5.7 4548-4) GEORGIE (test code = GEORGIE) Reference RangesNormal: <5.7%Prediabetes: 5.7 - 6.4%Diabetes: > 6.5% Lab Interpretation (test Normal code = 01055-4) [facility]. METABOLIC PANEL ([id number])2021-05-07 16:11:59 Test Item Value Reference Range Interpretation Comments NA (test code = 139 mmol/L 135-145 6338673058) K (test code = 3.9 mmol/L 3.5-5.0 2336631127) CL (test code = 101 mmol/L 98-108 0863954062) CO2 TOTAL (test code = 23 mmol/L 23-31 3672622908) AGAP (test code = 2-16 9259566478) BUN (test code = 13 mg/dL 7-23 4540247617) GLUCOSE (test code = 92 mg/dL 70-110 0082201907) CREATININE (test code = 0.40 mg/dL 0.60-1.25 L 3052668473) TOTAL BILI (test code = 1.6 mg/dL 0.1-1.1 H 4752340054) CALCIUM (test code = 9.6 mg/dL 8.6-10.6 1594876426) T PROTEIN (test code = 7.7 g/dL 6.3-8.2 0925304089) ALBUMIN (test code = 4.6 g/dL 3.5-5.0 9755430672) ALK PHOS (test code = 91 U/L 34-122 0096105556) ALTv (test code = 24 U/L 5-50 1742-6) AST(SGOT) (test code = 31 U/L 13-40 8146451037) eGFR (test code = mL/min/1.73m2 0496551249) GEORGIE (test code = GEORGIE) Association of [...] tests). Lab Interpretation Abnormal (test code = 22107-7) [facility]hamACTIVATED PARTIAL THRMPLAS [id number] 15:52:36 Test Item Value Reference Range Interpretation Comments APTT Patient (test See_Comment [Automat ed code = 3173-2) message] The system which generated this result transmitted reference range : 23 - 38 Seconds . The reference range was not used to interpr et this result as normal/abnormal . GEORGIE (test code = GEORGIE) The [facility] patient population mean normal value for aPTT is 30 seconds. Lab Interpretation Normal (test code = 33542-0) [facility]hamPROTHROMBIN TIME / [id number] 15:50:30 Test Item Value Reference Range Interpretation [...] tions. Lab Interpretation (test Normal code = 39638-0) [facility] WITH [id number] 15:42:54 Test Item Value Reference Range Interpretation [...] RDW-SD (test code = 44.1 fL 38.5-51.6 32346-6) RDW-CV (test code = 13.3 % 12.1-15.4 788-0) PLT (test code = See_Comment [Automated 777-3) message] The sy stem which generated this result transmitted reference range : 150 - 328 10*3/ ?L. The reference r johan was not used to interpret this result as normal/abnormal . MPV (test code = 9.7 fL 9.8-13.0 L 95082-9) NRBC/100 WBC (test See_Comment [Automat ed code = 7374936919) message] The system which generated this result transmitted reference range : 0.0 - 10.0 /100 WBCs. The refer ence range was not u sed to interpret th is result as normal/abnormal . NRBC x10^3 (test code <0.01 See_Comment [Auto mated = 8957947301) message] The s ystem which generated this result transmitted reference range : 10*3/?L. The reference range was not used to interpret this result as normal/abnormal . GRAN MAT (NEUT) % 77.6 % (test code = 770-8) IMM GRAN % (test code 0.60 % = 2493290968) LYMPH % (test code = 13.7 % 736-9) MONO % (test code = 7.7 % 5905-5) EOS % (test code = 0.2 % 713-8) BASO % (test code = 0.2 % 706-2) GRAN MAT x10^3(ANC) 7.68 10*3/uL 1.99-6.95 H (test code = 7446149549) IMM GRAN x10^3 (test 0.06 10*3/uL 0.00-0.06 code = 5355193038) LYMPH x10^3 (test code 1.35 10*3/uL 1.09-3.23 = 731-0) MONO x10^3 (test code 0.76 10*3/uL 0.36-1.02 = 742-7) EOS x10^3 (test code = <0.03 0.06-0.53 L 711-2) BASO x10^3 (test code <0.03 0.01-0.09 = 704-7) Lab Interpretation Abnormal (test code = 40271-5) [facility]hamSARS-CoV-2 ORF1ab Resp Ql [id number] 19:38:49 Test Item Value Reference Range Interpretation Comments Hospitalized? (test Yes code = 42850-6) ICU? (test code = No 29526-7) Symptomatic as defined No by CDC? (test code = 24133-5) Employed in No Healthcare? (test code = 42010-4) Resident in a No congregate care setting (including nursing homes, residential care for people with intellectual and developmental disabilities, psychiatric treatment facilities, group homes, board and care homes, homeless fpc, foster care or other): (test code = 66508-0) SARS-CoV-2 ORF1ab Resp NOT DETECTED Not Detected INTER PRETATION: No Ql BETY+probe (test detectabl e levels code = 08435-1) of SARS-CoV- 2 Coronavirus (COVID-19) were present [...] n with SARS-CoV-2 Coronavirus (COVID-19). COMMENT: This [employer] SARS-CoV-2 molecular diagnostic assay utilizes Import/Export Freight [employer]er Mediated Amplification (TMA) technology to rapidly detect the SARS-CoV-2 (COVID-19) virus from respiratory samples. In accordance with the FDA's guidance document "Policy for Diagnostic Tests for Coronavirus Disease- 2019 during the Public Health Emergency", this test was developed, and its performance characteristics were verified by the [facility] molecular diagnostics laboratory and is authorized for clinical diagnostic use. This laboratory is certified under the Clinical Laboratory Improvement Amendments (CLIA) as qualified to perform high complexity clinical laboratory testing.SARS-CoV-2 RNA Resp Ql [id number] 22:20:00 Test Item Value Reference Range Interpretation Comments Hospitalized? (test Yes code = 42403-6) ICU? (test code = No 02519-3) Symptomatic as defined No by CDC? (test code = 21680-3) Employed in Unknown Healthcare? (test code = 24232-8) Resident in a Unknown congregate care setting (including nursing homes, residential care for people with intellectual and developmental disabilities, psychiatric treatment facilities, group homes, board and care homes, homeless fpc, foster care or other): (test code = 45274-6) SARS-CoV-2 RNA Resp Ql NOT DETECTED Not Detected INTER PRETATION: No BETY+probe (test code = detec table levels 29343-2) of SARS-CoV-2 Coronavirus (COVID-19) were present in [...] its performance characteristics were verified by the [facility] molecular diagnostics laboratory and is authorized for clinical diagnostic use. This laboratory is certified under the Clinical Laboratory Improvement Amendments (CLIA) as qualified to perform high complexity clinical laboratory testing.SARS-CoV-2 ORF1ab Resp Ql [id number] 14:59:31 Test Item Value Reference Range Interpretation Comments Hospitalized? (test Yes code = 06064-0) ICU? (test code = Yes 652425-3) Symptomatic as defined No by CDC? (test code = 94560-8) Employed in No Healthcare? (test code = 95153-7) Resident in a No congregate care setting (including nursing homes, residential care for people with intellectual and developmental disabilities, psychiatric treatment facilities, group homes, board and care homes, homeless fpc, foster care or other): (test code = 16300-9) SARS-CoV-2 ORF1ab Resp NOT DETECTED Not Detected INTER PRETATION: No Ql BETY+probe (test detectabl e levels code = 53799-9) of SARS-CoV- 2 Coronavirus (COVID-19) were present [...] n with SARS-CoV-2 Coronavirus (COVID-19). COMMENT: This [employer] SARS-CoV-2 molecular diagnostic assay utilizes Import/Export Fre[employer] Mediated Amplification (TMA) technology to rapidly detect the SARS-CoV-2 (COVID-19) virus from respiratory samples. In accordance with the FDA's guidance document "Policy for Diagnostic Tests for Coronavirus Disease- 2019 during the Public Health Emergency", this test was developed, and its performance characteristics were verified by the [facility] molecular diagnostics laboratory and is authorized for clinical diagnostic use. This laboratory is certified under the Clinical Laboratory Improvement Amendments (CLIA) as qualified to perform high complexity clinical laboratory testing.SARS-CoV-2 RNA Resp Ql [id number] 00:53:33 Test Item Value Reference Range Interpretation Comments Hospitalized? (test code Yes = 32507-6) ICU? (test code = No 32167-1) Symptomatic as defined No by CDC? (test code = 64063-6) Employed in Healthcare? No (test code = 69445-9) Resident in a congregate No care setting (including nursing homes, residential care for people with intellectual and developmental disabilities, psychiatric treatment facilities, group homes, board and care homes, homeless fpc, foster care or other): (test code = 58864-1) ? (test code = No 43174-2) SARS-CoV-2 RNA Resp Ql DETECTED Not Detected A INTER PRETATION: This BETY+probe (test code = [place] 42242-8) detectable RNA present for the SARS-CoV-2 Coronavirus [...] its performance characteristics were verified by the [facility] molecular diagnostics laboratory and is [...] NONE A MUCU) DRUGS OF ABUSE SCREEN [id number] 13:19:00 Test Item Value Reference Interpretation Comments [...] a preliminary analyticaltest result. A more specific a lternate chemical method mustbe used in order t o obtain a confirmed giovanna lytical result.Gas chromatography/ mass spectrometry (G C/MS) is [...] this result as normal/abnormal . BASIC METABOLIC [id number] 09:24:00 Test Item Value Reference Range Interpretation [...] message] (test code = Index/DL The system [employer]EM[employer]) generated this result transmit isai reference [...] this result as normal/abnormal . HEPATIC FUNCTION [id number] 09:24:00 Test Item Value Reference Range Interpretation [...] 59 Unit/L 45-117 N code = ALKP) [id number] 09:24:00 Test Item Value Reference Range Interpretation Comments ACETAMINOPHEN (test code = ACET) <2.0 mcG/ML 10.0-30.0 L [id number] 09:24:00 Test Item Value Reference Range Interpretation Comments ALCOHOL (test code = < 3 MG/DL 0-10 N MEDICAL ALCOHOL ALC) RESULTS. SITE W PREPPED WITH BE TADINE. <10 MG/DL ARE CONSIDERED NEGA TIVE. >400 MG/DL MAY BE FATAL.RESULTS F OR MEDICAL USE ONL Y. NOT TO BE USED FOR FORENSIC PURPOSES. [id number] 07:55:00 Test Item Value Reference Range Interpretation Comments SALICYLATE (test code < 1.7 MG/DL See_Comment L RESULT <2.8 IS = SMITH) CONSIDERED NEGA TIVE FOR SALICYLATE. [Automated mess age] The system [employer] Group generated this result transmitted ref erence range: 2.8-20.0 THER. The reference r johan was not used to interpret this result as normal/abnor mal. CBC W/AUTO [id number] 07:10:00 Test Item Value Reference Range Interpretation [...] 0.00 K/mm3 0.00-0.05 N NRBC#) ECG 12 [id number] 22:52:05 Test Item Value Reference Range Interpretation Comments Ventricular rate (test code = 253) Atrial rate (test code = 255) WY interval (test code = 266) QRSD interval [...] Judge MD ([id number]) on 11/26/2020 5:52:04 PM [facility] 12 [id number] 22:52:05 Test Item Value Reference Range Interpretation Comments Ventricular rate (test code = 253) Atrial rate (test code = 255) WY interval (test code = 266) QRSD interval [...] Judge MD ([id number]) on 11/26/2020 5:52:[address]2021-10-11 22:52:05 Test Item Value Reference Range Interpretation Comments Ventricular rate (test code = 253) Atrial rate (test code = 255) WY interval (test code = 266) QRSD interval [...] Judge MD ([id number]) on 11/26/2020 5:52:[address]2021-10-11 22:52:05 Test Item Value Reference Range Interpretation Comments Ventricular rate (test code = 253) Atrial rate (test code = 255) WY interval (test code = 266) QRSD interval [...] Judge MD ([id number]) on 11/26/2020 5:52:[address] PM [address]2021-10-11 22:52:05 Test Item Value Reference Range Interpretation Comments Ventricular rate (test code = 253) Atrial rate (test code = 255) WY interval (test code = 266) QRSD interval [...] Judge MD ([id number]) on 11/26/2020 5:52:[address] PM [address]2021-10-11 22:52:05 Test Item Value Reference Range Interpretation Comments Ventricular rate (test code = 253) Atrial rate (test code = 255) WY interval (test code = 266) QRSD interval [...] Judge MD ([id number]) on 11/26/2020 5:52:[address] PM [address]2021-10-11 22:52:05 Test Item Value Reference Range Interpretation Comments Ventricular rate (test code = 253) Atrial rate (test code = 255) WY interval (test code = 266) QRSD interval [...] Judge MD ([id number]) on 11/26/2020 5:52:04 PM [address]2021-10-11 22:52:05 Test Item Value Reference Range Interpretation Comments Ventricular rate (test code = 253) Atrial rate (test code = 255) WY interval (test code = 266) QRSD interval [...] Judge MD ([id number]) on 11/26/2020 5:52:[address] PM [address]2021-10-11 22:52:05 Test Item Value Reference Range Interpretation Comments Ventricular rate (test code = 253) Atrial rate (test code = 255) WY interval (test code = 266) QRSD interval [...] Judge MD ([id number]) on 11/26/2020 5:52:[address] PM [address]2021-10-11 22:52:05 Test Item Value Reference Range Interpretation Comments Ventricular rate (test code = 253) Atrial rate (test code = 255) WY interval (test code = 266) QRSD interval [...] Judge MD ([id number]) on 11/26/2020 5:52:[address] PM [address]2021-10-11 22:52:05 Test Item Value Reference Range Interpretation Comments Ventricular rate (test code = 253) Atrial rate (test code = 255) WY interval (test code = 266) QRSD interval [...] Judge MD ([id number]) on 11/26/2020 5:52:[address] PM [address]2021-10-11 22:52:05 Test Item Value Reference Range Interpretation Comments Ventricular rate (test code = 253) Atrial rate (test code = 255) WY interval (test code = 266) QRSD interval [...] Judge MD ([id number]) on 11/26/2020 5:52:[address] PM [address]2021-10-11 22:52:05 Test Item Value Reference Range Interpretation Comments Ventricular rate (test code = 253) Atrial rate (test code = 255) WY interval (test code = 266) QRSD interval [...] Judge MD ([id number]) on 11/26/2020 5:52:[address] PM [address]2021-10-11 22:52:05 Test Item Value Reference Range Interpretation Comments Ventricular rate (test code = 253) Atrial rate (test code = 255) WY interval (test code = 266) QRSD interval [...] Judge MD ([id number]) on 11/26/2020 5:52:[address] PM [address]2021-10-11 22:52:05 Test Item Value Reference Range Interpretation Comments Ventricular rate (test code = 253) Atrial rate (test code = 255) WY interval (test code = 266) QRSD interval [...] Judge MD ([id number]) on 11/26/2020 5:52:[address] PM [address]2021-10-11 22:52:05 Test Item Value Reference Range Interpretation Comments Ventricular rate (test code = 253) Atrial rate (test code = 255) WY interval (test code = 266) QRSD interval [...] Judge MD ([id number]) on 11/26/2020 5:52:[address]2021-10-11 22:52:05 Test Item Value Reference Range Interpretation Comments Ventricular rate (test code = 253) Atrial rate (test code = 255) WY interval (test code = 266) QRSD interval [...] Judge MD ([id number]) on 11/26/2020 5:52:[address]2021-10-11 22:52:05 Test Item Value Reference Range Interpretation Comments Ventricular rate (test code = 253) Atrial rate (test code = 255) WY interval (test code = 266) QRSD interval [...] Judge MD ([id number]) on 11/26/2020 5:52:[address]2021-10-11 22:52:05 Test Item Value Reference Range Interpretation Comments Ventricular rate (test code = 253) Atrial rate (test code = 255) WY interval (test code = 266) QRSD interval [...] Judge MD ([id number]) on 11/26/2020 5:52:[address]2021-10-11 22:52:05 Test Item Value Reference Range Interpretation Comments Ventricular rate (test code = 253) Atrial rate (test code = 255) WY interval (test code = 266) QRSD interval [...] Judge MD ([id number]) on 11/26/2020 5:52:[address]2021-10-11 22:52:05 Test Item Value Reference Range Interpretation Comments Ventricular rate (test code = 253) Atrial rate (test code = 255) WY interval (test code = 266) QRSD interval [...] Judge MD ([id number]) on 11/26/2020 5:52:[address]2021-10-11 22:52:05 Test Item Value Reference Range Interpretation Comments Ventricular rate (test code = 253) Atrial rate (test code = 255) WY interval (test code = 266) QRSD interval [...] Judge MD ([id number]) on 11/26/2020 5:52:[address]2021-10-11 22:52:05 Test Item Value Reference Range Interpretation Comments Ventricular rate (test code = 253) Atrial rate (test code = 255) WY interval (test code = 266) QRSD interval [...] available-Electronica lly Signed By Doron Judge MD ([id number]) on 11/26/2020 5:52:[address]2021-10-11 22:52:05 Test Item Value Reference Range Interpretation Comments Ventricular rate (test code = 253) Atrial rate (test code = 255) WY interval (test code = 266) QRSD interval [...] available-Electronica lly Signed By Doron Judge MD ([id number]) on 11/26/2020 5:52:[address] [facility]2021-09-30 07:28:23 Test Item Value Reference Range Interpretation Comments Urine culture (test SEE COMMENT Bacteriu [place] screen code = 2398945) negative. [facility]2021-09-30 07:28:23 Test Item Value Reference Range Interpretation Comments Urine culture (test SEE COMMENT Bacteriu [place] screen code = 2541265) negative. [facility]2021-09-30 07:28:23 Test Item Value Reference Range Interpretation Comments Urine culture (test SEE COMMENT Bacteriu [place] screen code = 7389278) negative. [facility]2021-09-30 07:28:23 Test Item Value Reference Range Interpretation Comments Urine culture (test SEE COMMENT Bacteriu [place] screen code = 8259489) negative. [place] 114041-09-30 07:28:23 Test Item Value Reference Range Interpretation Comments Urine culture (test SEE COMMENT Bacteriu [place] screen code = 3633925) negative. [place] 114041-09-30 07:28:23 Test Item Value Reference Range Interpretation Comments Urine culture (test SEE COMMENT Bacteriu [place] screen code = 9715224) negative. [facility]2021-09-30 07:28:23 Test Item Value Reference Range Interpretation Comments Urine culture (test SEE COMMENT Bacteriu [place] screen code = 6053084) negative. [facility]2021-09-30 07:28:23 Test Item Value Reference Range Interpretation Comments Urine culture (test SEE COMMENT Bacteriu [place] screen code = 1431647) negative. [facility]2021-09-30 07:28:23 Test Item Value Reference Range Interpretation Comments Urine culture (test SEE COMMENT Bacteriu [place] screen code = 1460169) negative. [facility]2021-09-30 07:28:23 Test Item Value Reference Range Interpretation Comments Urine culture (test SEE COMMENT Bacteriu [place] screen code = 4780347) negative. [place] 114041-09-30 07:28:23 Test Item Value Reference Range Interpretation Comments Urine culture (test SEE COMMENT Bacteriu [place] screen code = 6846828) negative. [place] 114041-09-30 07:28:23 Test Item Value Reference Range Interpretation Comments Urine culture (test SEE COMMENT Bacteriu [place] screen code = 0500555) negative. [facility]2021-09-30 07:28:23 Test Item Value Reference Range Interpretation Comments Urine culture (test SEE COMMENT Bacteriu [place] screen code = 8765991) negative. [place] 114041-09-30 07:28:23 Test Item Value Reference Range Interpretation Comments Urine culture (test SEE COMMENT Bacteriu [place] screen code = 7408764) negative. [facility]2021-09-30 07:28:23 Test Item Value Reference Range Interpretation Comments Urine culture (test SEE COMMENT Bacteriu [place] screen code = 0804841) negative. [facility]2021-09-30 07:28:23 Test Item Value Reference Range Interpretation Comments Urine culture (test SEE COMMENT Bacteriu [place] screen code = 3976514) negative. [facility]2021-09-30 07:28:23 Test Item Value Reference Range Interpretation Comments Urine culture (test SEE COMMENT Bacteriu [place] screen code = 4784121) negative. [facility]2021-09-30 07:28:23 Test Item Value Reference Range Interpretation Comments Urine culture (test SEE COMMENT Bacteriu [place] screen code = 8895864) negative. [facility]2021-09-30 07:28:23 Test Item Value Reference Range Interpretation Comments Urine culture (test SEE COMMENT Bacteriu [place] screen code = 1029913) negative. [facility]2021-09-30 07:28:23 Test Item Value Reference Range Interpretation Comments Urine culture (test SEE COMMENT Bacteriu [place] screen code = 1099055) negative. [facility]2021-09-30 07:28:23 Test Item Value Reference Range Interpretation Comments Urine culture (test SEE COMMENT Bacteriu [place] screen code = 2015489) negative. [facility]2021-09-30 07:28:23 Test Item Value Reference Range Interpretation Comments Urine culture (test SEE COMMENT Bacteriu [place] screen code = 0492934) negative. [facility]2021-09-30 07:28:23 Test Item Value Reference Range Interpretation Comments Urine culture (test SEE COMMENT Bacteriu [place] screen code = 2027554) negative. [facility]2021-09-30 07:28:23 Test Item Value Reference Range Interpretation Comments Urine culture (test SEE COMMENT Bacteriu [place] screen code = 0548600) negative. [facility] [Presence] in Respiratory specimen by BETY with probe [id number] 02:40:47 Test Item Value Reference Range Interpretation Comments SARS-CoV-2 (COVID-19) RNA Not detected Not-Detected [Presence] in Respiratory specimen by BETY with probe detection (test code = 04764-0) Whether patient is employed in a healthcare setting (test code = 05541-1) Whether the patient has symptoms related to condition of interest (test code = 08496-7) Patient was hospitalized because of this condition (test code = 97073-4) Whether the patient was admitted to intensive care unit (ICU) for condition of interest (test code = 19463-8) Whether patient resides in a congregate care setting (test code = 13243-5) SARS-CoV-2 (COVID-19) RNA [Presence] in Respiratory specimen by BETY with probe [id number] 03:12:16 Test Item Value Reference Range Interpretation Comments SARS-CoV-2 (COVID-19) RNA Not detected Not-Detected [Presence] in Respiratory specimen by BETY with probe detection (test code = 68049-2) Whether patient is employed in a healthcare setting (test code = 26142-0) Whether the patient has symptoms related to condition of interest (test code = 07890-9) Patient was hospitalized because of this condition (test code = 93593-8) Whether the patient was admitted to intensive care unit (ICU) for condition of interest (test code = 93994-6) Whether patient resides in a congregate care setting (test code = 13229-1) BASIC METABOLIC [id number] 09:20:00 Test Item Value Reference Range Interpretation [...] message] (test code = Index/DL The system [employer] HEM[employer]) generated this result transmit isai reference [...] as normal/abnormal . Specimen comments: CCHEPATIC FUNCTION [id number] 09:20:00 Test Item Value Reference Range Interpretation [...] code = ALKP) Specimen comments: CCTHYROID STIMULATING [id number] 09:20:00 Test Item Value Reference Range Interpretation Comments THYROID STIMULATING HORMONE 0.619 mc IU/ML 0.340-4.820 N (test code = TSH) Specimen comments: [id number] 09:20:00 Test Item Value Reference Range Interpretation [...] troponin levelscharacter istic of [place]. Specimen comments: [id number] 09:20:00 Test Item Value Reference Range Interpretation Comments ACETAMINOPHEN (test code = ACET) <2.0 mcG/ML 10.0-30.0 L Specimen comments: [id number] 09:20:00 Test Item Value Reference Range Interpretation Comments ALCOHOL (test code = < 3 MG/DL 0-10 N MEDICAL ALCOHOL ALC) RESULTS. SITE W PREPPED WITH BE TADINE. <10 MG/DL ARE CONSIDERED NEGA TIVE. >400 MG/DL MAY BE FATAL.RESULTS F OR MEDICAL USE ONL Y. NOT TO BE USED FOR FORENSIC PURPOSES. Specimen comments: [id number] 08:59:00 Test Item Value Reference Range Interpretation Comments SALICYLATE (test code < 1.7 MG/DL See_Comment L RESULT <2.8 IS = SMITH) CONSIDERED NEGA TIVE FOR SALICYLATE. [Automated mess age] The system [employer] generated this result transmitted ref erence range: 2.8-20.0 THER. The reference r johan was not used to interpret this result as normal/abnor mal. Specimen comments: CCBASIC METABOLIC [id number] 08:55:00 Test Item Value Reference Range Interpretation [...] message] (test code = Index/DL The system [employer]) generated this result transmit isai reference range [...] as normal/abnormal . Specimen comments: CCHEPATIC FUNCTION [id number] 08:55:00 Test Item Value Reference Range Interpretation [...] code = ALKP) Specimen comments: CCTHYROID STIMULATING [id number] 08:55:00 Test Item Value Reference Range Interpretation Comments THYROID STIMULATING HORMONE 0.619 mc IU/ML 0.340-4.820 N (test code = TSH) Specimen comments: [id number] 08:55:00 Test Item Value Reference Range Interpretation [...] troponin levelscharacter istic of OR. Specimen comments: [id number] 08:55:00 Test Item Value Reference Range Interpretation Comments ACETAMINOPHEN (test code = ACET) mcG/ML 10.0-30.0 Specimen comments: [id number] 08:55:00 Test Item Value Reference Range Interpretation Comments ALCOHOL (test code = < 3 MG/DL 0-10 N MEDICAL ALCOHOL ALC) RESULTS. SITE W PREPPED WITH BE TADINE. <10 MG/DL ARE CONSIDERED NEGA TIVE. >400 MG/DL MAY BE FATAL.RESULTS F OR MEDICAL USE ONL Y. NOT TO BE USED FOR FORENSIC PURPOSES. Specimen comments: CCCBC W/AUTO [id number] 08:10:00 Test Item Value Reference Range Interpretation [...] NRBC#) Specimen comments: CC- XR CHEST 1 [id number] 03:12:00 [facility]: 1985 Sex: M FAX: Mahin Smallwood MD [phone] [place]: St: [facility] FAX: Vilma Coker [phone] [id number] EXAMS: CPT CODE: [id number] XR CHEST 1 V 03677 EXAM: - XR CHEST 1 V HISTORY: Chest pain. Covid positive. FINDINGS: Single AP view of the chest is provided. Heart size and vascularity are within normal limits. There is no evidence of a focal consolidation. There is no pleural effusion or pneumothorax. There is no definite acute osseous abnormality. IMPRESSION: No radiographic evidence ofacute cardiopulmonary process. at 0312 Reported and signed by: Santos Bobby MD CC: Vilma BENNETT Dictated Date/Time: 10/16/2020 (311)Technologist: Dk Hale Transcribed Date/Time: 10/16/2020 (311) By: [email or web address] Orig Print D/T: S: 10/16/2020 (314) TATUM Mcarthur NAME: ARLINE RAO aDrvin [address] [place] [address] PHYS: Vilma Keyes, [place] [address] : 1985 AGE: 35 SEX: M LOC: B.ERS PHONE #: [phone] EXAM DATE: 10/16/2020 STATUS: REG ER FAX #: [phone] RAD NO: DC Dt: PAGE 1 Signed ReportCOVID 19 Asymptomatic IH [id number] 06:58:00 Test Item Value Reference Range Interpretation Comments COVID 19 Asymptomatic IH AG (test POSITIVE Negative A code = COVNONPUIAG) BASIC METABOLIC [id number] 04:22:00 Test Item Value Reference Range Interpretation [...] 8.3 mg/dL 8.4-10.2 L CA) LIVER FUNCTION [id number] 04:22:00 Test Item Value Reference Range Interpretation [...] U/L 38-126 N (test code = ALKP) [id number] 04:22:00 Test Item Value Reference Range Interpretation Comments ALCOHOL (test code = < 10 mg/dL <10 ~~~~~~ ~~~~~~~~~~~~~~~ ALC) ~~~~~~~~~~~~~~~ ~~~~~~~ ~~~~~~~ RESULTS ARE TO BE USED FOR MED ICAL PURPOSES ONLY.F OR LEGAL PURPOSES THE SPECIMEN MUST B E COLLECTED BY A CHAINOF CUSTODY. LEGAL TESTING IS NOT PERFORME D BY THIS FACILITY. ~~~~~~~~~~~~~~~ ~~~~~~~ ~~~~~~~~~~~~~~~ ~~~~~~~ ~~~~~~ CBC W/AUTO [id number] 04:08:00 Test Item Value Reference Range Interpretation [...] x10 3/uL 0.0-0.1 N Coronavirus 2019 nCoV [id number] 17:19:00 Test Item Value Reference Range Interpretation Comments Coronavirus 2019 nCoV Bedside (test Negative Neg code = [id number]) [id number] 13:14:00 Test Item Value Reference Range Interpretation Comments SALICYLATE (test code < 1.7 MG/DL See_Comment L RESULT <2.8 IS = SMITH) CONSIDERED NEGA TIVE FOR SALICYLATE. [Automated mess age] The system [employer] generated this result transmitted ref erence range: 2.8-20.0 THER. The reference r johan was not used to interpret this result as normal/abnor mal. BASIC METABOLIC [id number] 13:03:00 Test Item Value Reference Range Interpretation [...] message] (test code = Index/DL The system [employer]) generated this result transmit isai reference [...] this result as normal/abnormal . HEPATIC FUNCTION [id number] 13:03:00 Test Item Value Reference Range Interpretation [...] 87 Unit/L 45-117 N code = ALKP) [id number] 13:03:00 Test Item Value Reference Range Interpretation Comments ACETAMINOPHEN (test code = ACET) <2.0 mcG/ML 10.0-30.0 L [id number] 13:03:00 Test Item Value Reference Range Interpretation Comments ALCOHOL (test code = < 3 MG/DL 0-10 N MEDICAL ALCOHOL ALC) RESULTS. SITE W PREPPED WITH BE TADINE. <10 MG/DL ARE CONSIDERED NEGA TIVE. >400 MG/DL MAY BE FATAL.RESULTS F OR MEDICAL USE ONL Y. NOT TO BE USED FOR FORENSIC PURPOSES. DRUGS OF ABUSE SCREEN [id number] 12:38:00 Test Item Value Reference Interpretation Comments [...] a preliminary analyticaltest result. A more specific a lternate chemical method mustbe used in order t o obtain a confirmed giovanna lytical result.Gas chromatography/ mass spectrometry (G C/MS) is [...] this result as normal/abnormal . BASIC METABOLIC [id number] 12:37:00 Test Item Value Reference Range Interpretation [...] message] (test code = Index/DL The system [employer]) generated this result transmit isai reference range [...] this result as normal/abnormal . HEPATIC FUNCTION [id number] 12:37:00 Test Item Value Reference Range Interpretation [...] 87 Unit/L 45-117 N code = ALKP) [id number] 12:37:00 Test Item Value Reference Range Interpretation Comments ACETAMINOPHEN (test code = ACET) mcG/ML 10.0-30.0 [id number] 12:37:00 Test Item Value Reference Range Interpretation Comments ALCOHOL (test code = < 3 MG/DL 0-10 N MEDICAL ALCOHOL ALC) RESULTS. SITE W PREPPED WITH BE TADINE. <10 MG/DL ARE CONSIDERED NEGA TIVE. >400 MG/DL MAY BE FATAL.RESULTS F OR MEDICAL USE ONL Y. NOT TO BE USED FOR FORENSIC PURPOSES. CBC W/AUTO [id number] 12:02:00 Test Item Value Reference Range Interpretation [...] code = 0.00 K/mm3 0.00-0.05 N NRBC#) [id number] 23:33:00 Test Item Value Reference Range Interpretation [...] troponin levelscharacter istic of [place]. B-TYPE NATRIURETIC [id number] 19:24:00 Test Item Value Reference Range Interpretation Comments B-TYPE NATRIURETIC PEPTIDE < 30.00 PG/ML 0.00-100.00 N (test code = BNP) URINALYSIS [id number] 15:43:00 Test Item Value Reference Range Interpretation [...] a.STF.VT15 AT 08/11/20 1302DRUGS OF ABUSE SCREEN [id number] 15:43:00 Test Item Value Reference Interpretation Comments [...] a preliminary analyticaltest result. A more specific a lternate chemical method mustbe used in order t o obtain a confirmed giovanna lytical result.Gas chromatography/ mass spectrometry (G C/MS) is [...] A MUCU) PENDING RECEIPT OF SPECIMEN PER a.[facility].VT15 AT 08/11/20 1302DRUGS OF ABUSE SCREEN [id number] 15:43:00 Test Item Value Reference Interpretation Comments [...] a preliminary analyticaltest result. A more specific a lternate chemical method mustbe used in order t o obtain a confirmed giovanna lytical result.Gas chromatography/ mass spectrometry (G C/MS) is [...] normal/abnormal . PENDING RECEIPT OF SPECIMEN PER Myra.VT15 AT 08/11/20 1302- XR HAND 3 + V LT 2020-08-11 13:43:00 [facility]: ARLINE RAO : 1985 Sex: M FAX: Lan Zeng MD [phone] [place]: E St: PRE Patient Name: ARLINE RAO Unit No: [id number] EXAMS: CPT CODE: [id number] XR HAND 3 + V LT [address] EXAM: - XR HAND 3 + V LT HISTORY: Left hand swollen and tender laterally H49 COMPARISON: None available time of interpretation. FINDINGS: PA, oblique, and lateral view of the lefthand is provided. External wire overlies the distal tuft of the second digit, obscuring visualization. There is some cortical irregularity about the fifth metacarpal carpal head, which may represent a nondisplaced fracture of indeterminate chronicity. No other findings to suggest no acute fracture ormalalignment. The joint spaces are preserved. No radiopaque foreign body in the soft tissues. IMPRESSION: Cortical irregularity about the fifth metacarpal carpal head, which may represent a nondisplaced fracture of indeterminate chronicity. Correlate clinically for a history of trauma and point tenderness on physical exam. at 1343 Reported and signed by: Merle Gold MD CC: Lan Cooper MD Dictated Date/Time: 08/11/2020 (1343)Technologist: Damaris Martinez Transcribed Date/Time: 08/11/2020 (9843) By: [email or web address] Orig Print D/T: S: 08/11/2020 (3302) [facility] NAME: ARLINE RAO [address] [place] [address] PHYS: Lan Dykes [place], [place] [address] : 1985 AGE: 34 SEX: M LOC: B.ERS PHONE #: [phone] EXAM DATE: 08/11/2020 STATUS: PRE ER FAX #: [phone] RAD NO: DC Dt: PAGE 1 Signed Report- XR CHEST 1 V 2020-08-11 13:41:00 [facility]: ARL[facility] : 1985 Sex: M FAX: Lan Zeng MD [phone] [place]: E St: PRE Patient Name: ARLINE RAO Unit No: [id number] EXAMS: CPT CODE: [id number] XR CHEST 1 V [id number] EXAM: - XR CHEST 1 V Location [...] By: [email or web address] Orig Print D/T: S: 08/11/2020 (5494) [facility] Lyubov NAME: J[address]EN[address] PHYS: Lan Munroe [place], [place] [address] : 1985 AGE: 34 SEX: M LOC: B.ERS PHONE #: [phone] EXAM DATE: 08/11/2020 STATUS: PRE ER FAX #: [phone] RAD NO: DC Dt: PAGE 1 Signed ReportCOMPREHENSIVE METABOLIC [id number] 12:50:00 Test Item Value Reference Range Interpretation [...] (test code = MG Index/DL The system [employer]) generated this result transmit isai reference [...] to interpret this result as normal/abnormal . [id number] 12:50:00 Test Item Value Reference Range Interpretation [...] s in troponin levelscharacter istic of [place]. [id number] 12:50:00 Test Item Value Reference Range Interpretation Comments ACETAMINOPHEN (test code = ACET) < 2.0 mcG/ML 10.0-30.0 L [id number] 12:50:00 Test Item Value Reference Range Interpretation Comments ALCOHOL (test code = <3 MG/DL 0-10 N MEDICAL ALCOHOL RESULTS. ALC) SITE WAS PREPPE D WITH BETADINE. <10 M G/DL ARE CONSIDERED NEGA TIVE. >400 MG/DL MAY BE FATAL.RESULTS F OR MEDICAL USE ONL Y. NOT TO BE USED FOR FOR ENSIC PURPOSES. [id number] 12:39:00 Test Item Value Reference Range Interpretation Comments SALICYLATE (test code 3.1 MG/DL See_Comment N [Auto mated message] = SMITH) The system [employer] generated this result transmitted ref erence range: 2.8-20.0 THER. The reference r johan was not used to interpret this result as normal/abnor mal. COMPREHENSIVE METABOLIC [id number] 12:39:00 Test Item Value Reference Range Interpretation [...] (test code = MG Index/DL The system [employer] HEMINDEX) generated this result transmit isai [...] to interpret this result as normal/abnormal . [id number] 12:39:00 Test Item Value Reference Range Interpretation [...] s in troponin levelscharacter istic of [place]. [id number] 12:39:00 Test Item Value Reference Range Interpretation Comments ACETAMINOPHEN (test code = ACET) < 2.0 mcG/ML 10.0-30.0 L [id number] 12:39:00 Test Item Value Reference Range Interpretation Comments ALCOHOL (test code = ALC) MG/DL 0-10 COMPREHENSIVE METABOLIC [id number] 12:34:00 Test Item Value Reference Range Interpretation [...] (test code = MG Index/DL The system [employer] HEMINDEX) generated this result transmit isai reference [...] to interpret this result as normal/abnormal . [id number] 12:34:00 Test Item Value Reference Range Interpretation Comments TROPONIN-I (test code = TROPI) NG/ML 0.000-0.045 [id number] 12:34:00 Test Item Value Reference Range Interpretation Comments ACETAMINOPHEN (test code = ACET) < 2.0 mcG/ML 10.0-30.0 L [id number] 12:34:00 Test Item Value Reference Range Interpretation Comments ALCOHOL (test code = ALC) MG/DL 0-10 CBC W/AUTO [id number] 12:23:00 Test Item Value Reference Range Interpretation [...] 0.00 K/mm3 0.00-0.05 N NRBC#) CBC WITH [id number] 09:49:19 Test Item Value Reference Range Interpretation Comments WBC (test code = See_Comment [Automated 5690-2) message] The sy stem which generated this result transmitted reference range : 4.20 - 10.70 10*3/?L. The reference range was not used to interpret this result as normal/abnormal . RBC (test code = See_Comment L [Automated 159-8) message] The sy stem which generated this [...] RDW-SD (test code = 42.9 fL 38.5-51.6 51032-0) RDW-CV (test code = 12.4 % 12.1-15.4 788-0) PLT (test code = See_Comment [Automated 777-3) message] The sy stem which generated this result transmitted reference range : 150 - 328 10*3/ ?L. The reference r johan was not used to interpret this result as normal/abnormal . MPV (test code = 9.8 fL 9.8-13.0 30192-5) NRBC/100 WBC (test See_Comment [Automat ed code = 1272789009) message] The system which generated this result transmitted reference range : 0.0 - 10.0 /100 WBCs. The refer ence range was not u sed to interpret th is result as normal/abnormal . NRBC x10^3 (test code <0.01 See_Comment [Auto mated = 2581221323) message] The s ystem which generated this result transmitted reference range : 10*3/?L. The reference range was not used to interpret this result as normal/abnormal . GRAN MAT (NEUT) % 41.9 % (test code = 770-8) IMM GRAN % (test code 0.20 % = 9532130006) LYMPH % (test code = 40.9 % 736-9) MONO % (test code = 13.7 % 5905-5) EOS % (test code = 3.1 % 713-8) BASO % (test code = 0.2 % 706-2) GRAN MAT x10^3(ANC) 1.89 10*3/uL 1.99-6.95 L (test code = 0563625548) IMM GRAN x10^3 (test <0.03 0.00-0.06 code = 9667973911) LYMPH x10^3 (test code 1.85 10*3/uL 1.09-3.23 = 731-0) MONO x10^3 (test code 0.62 10*3/uL 0.36-1.02 = 742-7) EOS x10^3 (test code = 0.14 10*3/uL 0.06-0.53 711-2) BASO x10^3 (test code <0.03 0.01-0.09 = 704-7) Lab Interpretation Abnormal (test code = 20415-3) [facility] [id number] 09:39:48 Test Item Value Reference Range Interpretation Comments TROPONIN I (test 0.002 ng/mL See_Comment [Automated code = 3915088138) message] The system which generated this result [...] ? Lab Interpretation Normal (test code = 87935-3) [facility] PAN[facility] (19614)2020-07-12 09:22:19 Test Item Value Reference Range Interpretation Comments NA (test code = 135 mmol/L 135-145 5817706463) K (test code = 3.6 mmol/L 3.5-5.0 2673975351) CL (test code = 103 mmol/L 98-108 0195899315) CO2 TOTAL (test code = 26 mmol/L 23-31 5866712171) AGAP (test code = 2-16 3118361522) BUN (test code = 17 mg/dL 7-23 0301337681) GLUCOSE (test code = 98 mg/dL 70-110 6355893428) CREATININE (test code = 0.82 mg/dL 0.60-1.25 7348020048) TOTAL BILI (test code = 1.3 mg/dL 0.1-1.1 H 2814474124) CALCIUM (test code = 8.4 mg/dL 8.6-10.6 L 8152095221) T PROTEIN (test code = 6.6 g/dL 6.3-8.2 7233353539) ALBUMIN (test code = 3.7 g/dL 3.5-5.0 9366389940) ALK PHOS (test code = 81 U/L 34-122 0413592248) ALTv (test code = 51 U/L 5-50 H 1742-6) AST(SGOT) (test code = 68 U/L 13-40 H 8470315155) eGFR (test code = mL/min/1.73m2 3478941199) GEORGIE (test code = GEORGIE) Association of [...] tests). Lab Interpretation Abnormal (test code = 36410-3) [facility], [id number] 09:22:14 Test Item Value Reference Range Interpretation Comments LIPASE (test code = 3033924773) 106 U/L 0-220 Lab Interpretation (test code = Normal 71318-3) [facility]hamaPTT2021-05-27 09:13:54 Test Item Value Reference Range Interpretation Comments APTT Patient (test See_Comment [Automat ed code = 3173-2) message] The system which generated this result transmitted reference range : 23 - 38 Seconds . The reference range was not used to interpr et this result as normal/abnormal . GEORGIE (test code = GEORGIE) The [facility] patient population mean normal value for aPTT is 30 seconds. Lab Interpretation Normal (test code = 05408-1) [facility]hamPROTHROMBIN TIME / [id number] 09:11:53 Test Item Value Reference Range Interpretation [...] tions. Lab Interpretation (test Normal code = 40112-9) [facility] 2019 nCoV [id number] 08:52:00 Test Item Value Reference Range Interpretation Comments Coronavirus 2019 Negative NEGATIVE This test h as been nCoV Bedside (test authorize d by FDA under code = [id number]) an EUA for use byauthorized laboratories; T his test has been author ized only for the detecti on ofnucleic acid from SARS-CoV-2, not for any other viruses orpathogens; an d This test is only au thorized for the duratio n of thedeclaration that circumstances e xist justifying theauthorizatio n of emergency use o f in vitro diagnostic test sfor detection and/o r diagnosis of CO VID-19 under Tzwanyu83 4(b)(1) of the Act, 21 U.S .C. 360bbb-3(b)(1), unless theauthorizatio n is terminated or r evoked sooner. DRUGS OF ABUSE [id number] 03:16:00 Test Item Value Reference Range Interpretation Comments UR COCAINE (test code = NEGATIVE NEGATIVE CUTO FF >/= 300 NG/ML COCAU) UR THC CANABINOIDS QL NEGATIVE NEGATIVE CUTOFF >/= 20 NG/ML SQN (test code = CANU) UR AMPHETAMINE QL SQN POSITIVE NEGATIVE A CUTOFF >/= 500 NG/ML (test code = AMPHU) UR BARBITURATE QUAL NEGATIVE NEGATIVE CUTOFF > /= 200 NG/ML (test code = BARBQLU) UR [...] poses (e.g employment testing). DRUGS OF ABUSE [id number] 02:47:00 Test Item Value Reference Range Interpretation [...] (test code = PHENCU) DRUGS OF ABUSE [id number] 02:38:00 Test Item Value Reference Range Interpretation [...] NEGATIVE (test code = PHENCU) BASIC METABOLIC [id number] 02:34:00 Test Item Value Reference Range Interpretation [...] 9.7 mg/dL 8.4-10.2 N CA) LIVER FUNCTION [id number] 02:34:00 Test Item Value Reference Range Interpretation [...] U/L 38-126 N (test code = ALKP) [id number] 02:34:00 Test Item Value Reference Range Interpretation Comments ACETAMINOPHEN (test code = ACET) <10 ug/mL 10-30 L [id number] 02:34:00 Test Item Value Reference Range Interpretation Comments SALICYLATE (test code < 1.0 mg/dL Negati ve <2.0 = SMITH) mg/dLTherapeuti c Range <20 mg/dL [id number] 02:34:00 Test Item Value Reference Range Interpretation Comments ALCOHOL (test code = < 10 mg/dL <10 ~~~~~~ ~~~~~~~~~~~~~~~ ALC) ~~~~~~~~~~~~~~~ ~~~~~~~ ~~~~~~~ RESULTS ARE TO BE USED FOR MED ICAL PURPOSES ONLY.F OR LEGAL PURPOSES THE SPECIMEN MUST B E COLLECTED BY A CHAINOF CUSTODY. LEGAL TESTING IS NOT PERFORME D BY THIS FACILITY. ~~~~~~~~~~~~~~~ ~~~~~~~ ~~~~~~~~~~~~~~~ ~~~~~~~ ~~~~~~ URINALYSIS [id number] 02:27:00 Test Item Value Reference Range Interpretation [...] this result as normal/abnormal . CBC W/AUTO [id number] 02:18:00 Test Item Value Reference Range Interpretation [...] x10 3/uL 0.0-0.1 N DRUGS OF ABUSE [id number] 06:47:00 Test Item Value Reference Range Interpretation Comments UR COCAINE (test code = NEGATIVE NEGATIVE CUTO FF >/= 300 NG/ML COCAU) UR THC CANABINOIDS QL NEGATIVE NEGATIVE CUTOFF >/= 20 NG/ML SQN (test code = CANU) UR AMPHETAMINE QL SQN POSITIVE NEGATIVE CUTOFF >/= 500 NG/ML (test code = AMPHU) UR BARBITURATE QUAL NEGATIVE NEGATIVE CUTOFF > /= 200 NG/ML (test code = BARBQLU) UR [...] non-medical pur poses (e.g employment testing). URINALYSIS [id number] 06:29:00 Test Item Value Reference Range Interpretation [...] this result as normal/abnormal . BASIC METABOLIC [id number] 03:28:00 Test Item Value Reference Range Interpretation [...] 9.0 mg/dL 8.4-10.2 N CA) LIVER FUNCTION [id number] 03:28:00 Test Item Value Reference Range Interpretation [...] U/L 38-126 N (test code = ALKP) [id number] 03:28:00 Test Item Value Reference Range Interpretation Comments ACETAMINOPHEN (test code = ACET) <10 ug/mL 10-30 L [id number] 03:28:00 Test Item Value Reference Range Interpretation Comments SALICYLATE (test code < 1.0 mg/dL Negati ve <2.0 = SMITH) mg/dLTherapeuti c Range <20 mg/dL [id number] 03:28:00 Test Item Value Reference Range Interpretation Comments ALCOHOL (test code = < 10 mg/dL <10 ~~~~~~ ~~~~~~~~~~~~~~~ ALC) ~~~~~~~~~~~~~~~ ~~~~~~~ ~~~~~~~ RESULTS ARE TO BE USED FOR MED ICAL PURPOSES ONLY.F OR LEGAL PURPOSES THE SPECIMEN MUST B E COLLECTED BY A CHAINOF CUSTODY. LEGAL TESTING IS NOT PERFORME D BY THIS FACILITY. ~~~~~~~~~~~~~~~ ~~~~~~~ ~~~~~~~~~~~~~~~ ~~~~~~~ ~~~~~~ CBC W/AUTO [id number] 00:30:00 Test Item Value Reference Range Interpretation [...] 3/uL 0.0-0.1 N - CT C-SPINE W/O [id number] 23:37:00 Patient Name: ARLINE RAO Unit No: [id number] EXAMS: CPT CODE: [id number] CT C-SPINE W/O CONT 82806 Location: CT cervical spine, 08/29/19 TECHNIQUE: CT examination of the cervical spine without contrast was performed on a helical scanner without contrast with coronal and sagittal reformatted imaging obtained. This was acquired on CT workstation with 2D reformatted images acquired both coronally and sagittally. Scanning conducted in axial plane from skull base down to upper thoracic spine. 1.25mm contiguous slice thickness acquired . The examination was performed utilizing low dose radiationtechnique on a helical scanner. Automatic exposure control [...] Steward CTDI: 16.41 DLP: 366.20 Trnscrpt: 08/29/2019 (6667) HeatherDAS6 TATUM Mcarthur NAME: JALEN[address] PHYS: [place] [address] : 1985 AGE: 33 SEX: M LOC: B.ERS PHONE #: [phone] EXAM DATE: 08/29/2019 STATUS: REG ER FAX #: [phone] RAD #: D/C DT PAGE 1 Signed Report Patient Name: ARLINE RAO Unit No: [id number] EXAMS: CPT CODE: [id number] CT C-SPINE W/O CONT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
--- NOTE | 2021-10-03 18:55 | RAD REPORT ---
EXAM DESCRIPTION: RAD - Abdomen 1 View (KUB) - 10/03/2021 6:38 pm CLINICAL HISTORY: Constipation Pain COMPARISON: <Comparisons> FINDINGS: The bowel gas pattern is non-obstructive. No evidence of free air or pneumatosis. No suspi cious calcifications. No significant bony findings. Moderate stool throughout the colon. IMPRESSION: Moderate constipation.
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
[2021-10-03 23:31] VITALS: BP 132/90; TEMP 97.7; O2SAT 99
== END 2021-10-03 22:26 | disposition home or self-care (01) ==
LOC: ER 15:51
DX: T76.21XA Adult sexual abuse, suspected, initial encounter (principal); K59.00 Constipation, unspecified; F17.220 Nicotine dependence, chewing tobacco, uncomplicated; Z88.5 Allergy status to narcotic agent; Z88.8 Allergy status to other drugs, medicaments and biological substances
CPT/HCPCS: 74018; 99283

== ENCOUNTER 2022-01-06 02:27 | Emergency (ER) | payer OTHER ==
--- OUTSIDE RECORDS SUMMARY | 2022-01-06 02:46 | XMS REPORT | Continuity of Care Document ---
:1985 Author Organization [facility] t Address [address] [place] [address] Care Team Providers Name Role Phone UNKNOWN, REFFERING Primary Care Physician Unavailable [id number] Attending Clinician Unavailable PRAVIN OGLESBY Attending Clinician Unavailable YURY SUH Attending Clinician Unavailable GRISEL ROLDAN Attending Clinician Unavailable BUSHRA JARA Attending Clinician Unavailable BILL PAULSON Attending Clinician Unavailable GAMAL MONROY Attending Clinician Unavailable Gamal Monroy MD Attending Clinician [phone] Karly Bhatti RN Attending Clinician Unavailable CHAVA MEZA Attending Clinician Unavailable Chava Meza MD Attending Clinician Doctor Unassigned, [employer] Attending Clinician Unavailable MICHAEL PHILLIPS Attending Clinician Unavailable Michael Phillips MD Attending Clinician LASHAY ARREOLA Attending Clinician Unavailable ARLINE BOWERS Attending Clinician Unavailable Orquidea Alfonso Attending Clinician ORQUIDEA ALFONSO Attending Clinician Unavailable Elvi Parekh MD Attending Clinician NdumGiovany Attending Clinician NDUM, GIOVANY WELCH Attending Clinician Unavailable Shalonda Renee Attending Clinician SHALONDA RENEE Attending Clinician Unavailable Elfego Blackburn Attending Clinician ELFEGO BLACKBURN Attending Clinician Unavailable Elis Addison Attending Clinician ELIS ADDISON Attending Clinician Unavailable JEWEL RODRIGUEZ Attending Clinician Unavailable Jewel Rodriguez MD Attending Clinician Adam Mullins DO Attending Clinician Guerita Ruano Attending Clinician GUERITA RUANO Attending Clinician Unavailable José Antonio Montanez Attending Clinician Perez Best Attending Clinician PEREZ BEST Attending Clinician Unavailable Juliann Ruano Attending Clinician ALDEN SABCANDI Attending Clinician Unavailable Celestina Louis MD Attending Clinician VILMA_MARIJA_[place] Attending Clinician Unavailable Amari Jeronimo MD Attending Clinician Gaurang POWERS Attending Clinician Unavailable Gaurang Butler Attending Clinician Joy Doss Attending Clinician Marina Rodriguez Attending Clinician [phone] Jonah Carr Attending Clinician [phone] Erick Murillo MD Attending Clinician UNKNOWN Attending Clinician Unavailable _[facility]_Lilly_Tony Attending Clinician Unavailable MARTIN CLAY Attending Clinician Unavailable Tono Roberto MD Attending Clinician Martin Clay MD Attending Clinician GALE PAULSON Attending Clinician Unavailable PASCUAL MAHAN Attending Clinician Unavailable GUME BOSS Attending Clinician Unavailable TONYA CARTER Attending Clinician Unavailable VÍCTOR KEANE Attending Clinician Unavailable Erich Triplett Attending Clinician Unavailable Eusebia Bland MD Attending Clinician William Nunes DO Attending Clinician Mio Sorensen MD Attending Clinician MD EUSEBIA BLAND Attending Clinician Unavailable Dennis Wynn MD Attending Clinician Madeleine Lauren MD Attending Clinician Jessica Awad MD Attending Clinician Lashaun Awad MD Attending Clinician MD MADELEINE LAUREN Attending Clinician Unavailable Gale Harrison Attending Clinician Unavailable Darlene Lizarraga Attending Clinician Unavailable Michael Montero Attending Clinician Unavailable Farhad Pardo Attending Clinician Unavailable Lan Zeng Attending Clinician Unavailable Jose Ceballos Attending Clinician Isac Gar Attending Clinician Arline Florence Attending Clinician Brown Bowen MD Attending Clinician Melonie Cruz Attending Clinician DEJAH SINGH Attending Clinician Unavailable JADON AGUILAR M.D., Kimmie DIOPD. Attending Clinician Unavailable [id number] Admitting Clinician Unavailable BUSHRA JARA Admitting Clinician Unavailable Dax Montgomery Admitting Clinician _[facility]_Michael_J Admitting Clinician Unavailable AMARI JERONIMO Admitting Clinician Unavailable Gaurang POWERS Admitting Clinician Unavailable MICHAEL PHILLIPS Admitting Clinician Unavailable [facility]_Lilly_Tony Admitting Clinician Unavailable MARTIN CLAY Admitting Clinician Unavailable Martin Clay MD Admitting Clinician Physician, No Primary or Family Admitting Clinician UnavailMD EUSEBIA Nielsen Admitting Clinician Unavailable MADELEINE LAUREN Admitting Clinician Unavailable MD MADELEINE LAUREN Admitting Clinician Unavailable KNOW, DOES_NOT Admitting Clinician Unavailable Arline Florence Admitting Clinician DEJAH SINGH Admitting Clinician Unavailable JADON AGUILAR M.D., JADON Admitting Clinician Unavail able Payers Payer Name Policy Type Policy Number Effective Date Expiration Date Carmita RAY DE MEDICAID [id number] 2021 STARPLUS OON EXC 00:00:00 [facility] COMMUNITY PLAN [id number] 2020 2021 SSI 00:00:00 00:00:00 [facility] [id number] 2021 STAR PLUS 00:00:00 [facility] [id number] 2021 STAR 00:00:00 [facility] [id number] 2021 [facility] (MEDICAID 00:00:00 HMO) [employer] [place] - [id number] 2021 2021 COMMUNITY CARE - 00:00:00 00:00:00 STAR PLUS - ASSISTED CARE (MEDICAID HMO) Problems Condition Condition Condition Status Onset Resolution Last Treating Co mments Source Name Details Category Date Date Treatment Clinician Date Tobacco Tobacco Problem Active [facility] dependence Dependence 8-15 Me dical caused by Caused by 00:00: chewing Chewing 00 tobacco Tobacco Malodorous Malodorous Problem Active [facility] urine Urine 8-08 Medical 00:00: 00 Dizziness Dizziness Problem Active [facility] via 7-26 Medical 00:00: 00 Secondary Secondary Problem Active [facility] via peripheral Peripheral 7-26 Me dical neuropathy Neuropathy 00:00: 00 Insomnia Insomnia Problem Active [facility] a disorder Disorder 7-26 Medica l related to Related to 00:00: another Another 00 mental Mental disorder Disorder Cocaine Cocaine Problem Active [facility] abuse Abuse 7-10 Medical 00:00: 00 Polyneurop Polyneurop Problem Active [facility] athy athy 5-31 Medical 00:00: 00 Insomnia Insomnia Problem Active [facility] a 5-30 Medical 00:00: 00 Acute Acute Problem Active [facility] urinary Urinary 5-17 Medical tract Tract 00:00: infection Infection 00 Recurrent Recurrent Problem Active [facility] via urinary Urinary 5-17 Medical tract Tract 00:00: infection Infection 00 Vitamin D Vitamin D Problem Active [facility] via deficiency Deficiency 5-08 Me dical 00:00: 00 Neurogenic Neurogenic Problem Active [facility] bladder Bladder 5-08 Medical 00:00: 00 Chest pain Chest Pain Problem Active [facility] 5-08 Medical 00:00: 00 Opioid Opioid Problem Active [facility] dependence Dependence 5-08 Me dical with with 00:00: current Current 00 use Use Polysubsta Polysubsta Problem Active [facility] nce abuse nce Abuse 4-19 Medi wero 00:00: 00 Paraplegia Paraplegia Problem Active [facility] 4-19 Medical 00:00: 00 Tachycardi Tachycardi Problem Active [facility] a a 4-19 Medical 00:00: 00 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 Major 00:00: depression Depression 00 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 4-12 Medical abuse Abuse 00:00: 00 Schizophre Schizophre Disease Active U nivers mati mati 3-23 ity of 00:00: [place] 00 Medical Branch Cellulitis Cellulitis Disease Active 0 U nivers of left of left 3-22 ity of buttock buttock 00:00: 00 Medical Branch Chest Chest Disease Active [facility] discomfort discomfort 3-22 it y of 00:00: Medical Branch Disorienta Disorienta Disease Active M ethodi tion tion 10-22 st 00:00: Hospita 00 l Esophageal Esophageal Disease Active U nivers reflux reflux 7-21 ity of 00:00: 00 Medical Branch Dysphagia, Dysphagia, Disease Active [facility] oropharyng oropharyng 7- it y of e[place] 00[place] Schizoaffe Schizoaffe Problem Active [facility] ctive ctive Medical disorder, Disorder, bipolar Bipolar type Type Chronic Chronic Problem Active [facility] pain Pain Medical following Following trauma Trauma Cigarette Cigarette Problem Active [facility] via smoker Smoker Medical Allergies, Adverse Reactions, Alerts Allergy Allergy Status Severity Reaction(s) Onset Inactive Treating Comm ents Source Name Type Date Date Clinician Naproxen Propensi Active Rash Method i ty to 10-20 st adverse 00:00: Hospita reaction 00 l s to drug Tramadol Propensi Active Shortness Of Methodi ty to Breath 10-20 st adverse 00:00: Hospita reaction 00 l s to drug [place] Allergy Active High H[facility] [place] DRUG Active Hives 2021- Univers C INGREDI 8-16 ity of 00:00: Medical Branch [place] Propensi Active Hives Univer s c ty to 8-16 ity of adverse 00:00: [place] reaction 00 [facility] s Branch [place] Drug Active Hives [facility] tramadol DA Active [place] HIVES 2020-0 [facility] 8[facility]21 [place] 00:[facility]: d 00 [facility] tramadol DA Active MO 2020-0 [facility] 8[facility]21 [place] 00:00: d 00 [facility] No Known DA Active U [facility] Allergie 7-19 [place] s 00:00: Region 00 [facility] No Known DA Active U [facility] Allergie 7-19 [place] s 00:00: Region 00 [facility] No Known DA Active U [facility] Allergie 7-18 [place] s 00:00: Regiona 00 [facility] No Known DA Active U 2020-0 [facility] Allergie 7-18 [place] s 00:00: Region 00 [facility] Center tramadol DA Active MO HIVES 2020-0 [facility] 3-29 [facility] 00[facility]00: d 00 Medical Center tramadol DA Active MO 2020-0 [facility] 3-29 [facility] 00:00: d 00 Medical Center No Known DA Active U 2019-0 [facility] Allergie 7[facility]13 [place] s 00:00: Regiona 00 [facility] No Known DA Active U 2020-0 [facility] Allergie 7-13 [place] [facility] 00:00: Region 00 [facility] No Known DA Active U 2020-0 [facility] Allergie 5-06 [place] [facility] 00:00: Region 00 [facility] No Known DA Active U 2019-0 [facility] Allergie 5-06 [place] s 00:00: Region [facility] tramadol DA Active MO HIVES 2016-0 [facility] 1-04 [facility] 00:00: d 00 Medical Center tramadol DA Active MO 2016-0 [facility] 1-04 [facility] 00:00: d 00 Medical Center TRAMADOL Allergy Active Low Rash [facility] RISPERID Allergy Active [facility] 00:[facility]: Medical 00 Center NAPROXEN Allergy Active Low Rash [facility] Medical 00 Center Risperid Propensi Active Other - See [...] 00 Medical Branch TRAMADOL DRUG Active Rash 2014-0 Univers INGREDI 7-25 ity of 00:00: [place] 00 Medical Branch Naproxen Allergy Active Rash 2013-0 [facility] to 09-09 Medical substanc 00:00: e 00 Risperid Allergy Active Other 2013-0 [facility] one to 09-09 Medical substanc 00:00: e 00 Tramadol Allergy Active Rash 2013-0 [facility] to 09-09 Medical substanc 00:00: e 00 Naproxen Drug Active Rash 2013-[address] [facility] 00:[facility]: Medical 00 [place] Risperid Drug Active 2013-[address] [facility] Allergy 09-09 reaction( [facility] 00:00: s): Medical 00 Other, [place] SeizureTh e patient reports a seizure after injesting in 2012 Tramadol Drug Active Rash 2013- Other [facility]( [facility] 00:00: s): HIVES Medical 00 [place] POISON Allergy Active Low Rash 2013-[address] [facility] [facility] 4-08 [facility] EXTRACT 00:00: Medical 00 [place] POISON DRUG Active Rash 2013-0 Univers SHAYY INGREDI 4-08 ity of EXTRACT 00:00: [place] 00 Medical Branch Poison Propensi Active Rash 2013-0 Univers Shayy ty to 4-08 ity of Extract adverse 00:00: [place] reaction 00 Medical s Branch Poison Allergy Active Rash 2013-0 [facility] Shayy to 4-08 Medical Extract substanc 00:00: e 00 Poison Drug Active Rash 2013-[address] [facility] [facility] Allergy 4-08 [facility] Extract 00:00: Medical 00 [place] traMADol Drug Active [facility] RisperDA Drug Active [facility] traMADol Drug Active [facility] RisperDA Drug Active [facility] traMADol Drug Active [facility] RisperDA Drug Active [facility] traMADol Drug Active [facility] traMADol Drug Active [facility] traMADol Drug Active [facility] RisperDA Drug Active [facility] RisperDA Drug Active [facility] traMADol Drug Active [facility] RisperDA Drug Active [facility] traMADol Drug Active [facility] RisperDA Drug Active [facility] RisperDA Drug Active [facility] traMADol Drug Active [facility] RisperDA Drug Active [facility] traMADol Drug Active [facility] RisperDA Drug Active [facility] traMADol Drug Active [facility] RisperDA Drug Active [facility] traMADol Drug Active [facility] RisperDA Drug Active [facility] Social History Social Habit Start Date Stop Date Quantity Comments Source Exposure to 2021-12-25 2022-01-04 Yes University of SARS-CoV-2 (event) 00:00:00 11:52:00 [facility] Cigarettes smoked 2021-05-07 2021-05-07 Univers ity of current (pack per 00:00:00 00:00:00 [facility] ) - Reported [place] Cigarette 2021-05-07 2021-05-07 University of pack-years 00:00:00 00:00:00 [facility] Tobacco use and 2020-11-14 2020-11-14 Smokeless [facility] exposure 00:00:00 00:00:00 tobacco non-user Hospital Alcohol intake 2020-11-14 2020-11-14 Current drinker Metho dist 00:00:00 00:00:00 of [facility] Hospital (finding) History of tobacco 2011-02-04 Cigarette Smoker University of use 00:00:00 [facility] Sex Ass[birth year] At [birth year] [facility] 00:00:00 00:00:00 Hospital Smoking Status Start Date Stop Date Source Light Tobacco Smoker Tresa Bradley wero Smokes tobacco daily 2020-11-14 00:00:00 [facility] Medications Ordered Filled Start Stop Current Ordering Indication Dosage Frequency Signature Comments Components Source Medication Medication Date Date Medication? Clinician (SIG) Name Name acetaminoph 2021-02- No 1000mg 1,000 mg, Univers en 03-06 Oral, ONCE ity of (TYLENOL) 20:15: 19:33 NOW, 1 [place] tablet 00 :00 dose, On Medical 1,000 mg Sat Branch 01/04/22 at 1415, Routine iopamidol 2021-02- No [id number] 75mL 75 mL, Univers (ISOVUE 03-06 Intravenou ity o f 370-500 mL) 19:20: 19:30 s, ONCE, 1 [place] injection 00 :00 dose, On Medica l 75 mL Sat Branch 01/04/22 at 1330, Routine acetaminoph 2021-02 Yes 500mg Take 500 U nivers en 500 mg 1-11 mg by ity of tablet 10:28: mouth [place] 16 every 6 Medical (six) Branch hours as needed for Pain. AMMONIUM 2021-02 Yes 1{appli Apply 1 Uni vers LACTATE 1-11 cator} Applicator ity of TOPICAL 10:28: to area(s[place] 16 2 (two) Medical times Branch daily. bisacodyL 2021-02 Yes 10mg Insert 10 Uni vers 10 mg 1-11 mg into ity of suppository 10:28: rectum [place] 16 once daily Medical as needed Branch (neurogeni c bladder). cyclobenzap 2021-02 Yes 10mg Take 10 mg Univers rine 10 mg 1-11 by mouth ity o f tablet 10:28: every 8 [place] 16 (eight) Medical hours. Branch docusate 2021-02 Yes 100mg Take 100 Univ ers 100 mg 1-11 mg by ity of capsule 10:28: mouth 2 [place] 16 (two) Medical times Branch daily. gabapentin 2021-02 Yes 300mg Take 300 Un mona 300 mg 1-11 mg by ity of capsule 10:28: mouth 2 [place] 16 (two) Medical times Branch daily. HYDROcodone 2021-02 Yes 2{tbl} Take 2 Un mona -acetaminop 1-11 tablets by it y of hen 5-325 10:28: mouth [place] mg tablet 16 every 6 Medical (six) Branch hours. lactulose 2021-02 Yes 30mL Take 30 mL Un mona 10 gram/15 1-11 by mouth ity o f mL oral 10:28: once daily [place] solution 16 as needed Medica l for Branch Constipati on (daily). Magnesium 2021-02 Yes 2{tbl} Take 2 Univ ers 250 mg Tab 1-11 tablets by ity of 10:28: mouth [place] 16 daily. Medical Branch melatonin 2021-02 Yes 10mg Take 10 mg Un mona 10 mg Tab 1-11 by mouth ity of 10:28: at [place] [address] bedtime. Medical Branch metoprolol 2021-02 Yes 12.5mg Take 12.5 Univers tartrate 25 1-11 mg by ity of mg tablet 10:28: mouth 2 [place] [address] (two) Medical times Branch daily. polyethylen 2021-02 Yes 17g Take 17 g U nivers e glycol 1-11 by mouth ity of 3350 17 10:28: daily. [place] gram/dose 16 Medical powder Branch nicotine 7 2021-02 Yes 1{patch Apply 1 U nivers mg/24 hr 1-11 } Patch to ity of patch 10:28: area(s) [place] every 24 Medical (twenty-fo Branch ur) hours. pregabalin 2021-02 Yes 150mg Take 150 Un mona 150 mg 1-11 mg by ity of capsule 10:28: mouth 2 [place] [address] (two) Medical times Branch daily. ascorbic 2021-02 Yes 500mg Take 500 Univ ers acid, 1-11 mg by ity of vitamin C, 10:28: mouth. [place] 500 16 Medical tablet Branch Zinc 50 mg 2021-02 Yes 50mg Take 50 mg U nivers Tab 1-11 by mouth ity of 10:28: daily. [place] [address] Medical Branch acetaminoph 2021-02 Yes 500mg Take 500 U nivers en 500 mg 1-11 mg by ity of tablet 10:28: mouth [place] every 6 Medical (six) Branch hours as needed for Pain. AMMONIUM 2021-02 Yes 1{appli Apply 1 Uni vers LACTATE 1-11 cator} Applicator ity of TOPICAL 10:28: to area(s) [place] 16 2 (two) Medical times Branch daily. bisacodyL 2021-02 Yes 10mg Insert 10 Uni vers 10 mg 1-11 mg into ity of suppository 10:28: rectum [place] 16 once daily Medical as needed Branch (neurogeni c bladder). cyclobenzap 2021-02 Yes 10mg Take 10 mg Univers rine 10 mg 1-11 by mouth ity o f tablet 10:28: every 8 [place] [address] (eight) Medical hours. Branch docusate 2021-02 Yes 100mg Take 100 Univ ers 100 mg 1-11 mg by ity of capsule 10:28: mouth 2 [place] [address] (two) Medical times Branch daily. gabapentin 2021-02 Yes 300mg Take 300 Un mona 300 mg 1-11 mg by ity of capsule 10:28: mouth 2 [place] 16 (two) Medical times Branch daily. HYDROcodone 2021-02 Yes 2{tbl} Take 2 Un mona -acetaminop 1-11 tablets by it y of hen 5-325 10:28: mouth [place] mg tablet 16 every 6 Medical (six) Branch hours. lactulose 2021-02 Yes 30mL Take 30 mL Un mona 10 gram/15 1-11 by mouth ity o f mL oral 10:28: once daily [place] solution 16 as needed Medica l for Branch Constipati on (daily). Magnesium 2021-02 Yes 2{tbl} Take 2 Univ ers 250 mg Tab 1-11 tablets by ity of 10:28: mouth [place] 16 daily. Medical Branch melatonin 2021-02 Yes 10mg Take 10 mg Un mona 10 mg Tab 1-11 by mouth ity of 10:28: at [place] [address] bedtime. Medical Branch metoprolol 2021-02 Yes 12.5mg Take 12.5 Univers tartrate 25 1-11 mg by ity of mg tablet 10:28: mouth 2 [place] 16 (two) Medical times Branch daily. polyethylen 2021-02 Yes 17g Take 17 g U nivers e glycol 1-11 by mouth ity of 3350 17 10:28: daily. [place] gram/dose 16 Medical powder Branch nicotine 7 2021-02 Yes 1{patch Apply 1 U nivers mg/24 hr 1-11 } Patch to ity of patch 10:28: area(s) [place] 16 every 24 Medical (twenty-fo Branch ur) hours. pregabalin 2021-02 Yes 150mg Take 150 Un mona 150 mg 1-11 mg by ity of capsule 10:28: mouth 2 [place] 16 (two) Medical times Branch daily. ascorbic 2021-02 Yes 500mg Take 500 Univ ers acid, 1-11 mg by ity of vitamin C, 10:28: mouth. [place] 500 mg 16 Medical tablet Branch Zinc 50 mg 2021-02 Yes 50mg Take 50 mg U nivers Tab 1-11 by mouth ity of 10:28: daily. [place] [address] Medical Branch acetaminoph 2021-02 Yes 500mg Take 500 U nivers en 500 mg 1-11 mg by ity of tablet 10:28: mouth [place] 16 every 6 Medical (six) Branch hours as needed for Pain. AMMONIUM 2021-02 Yes 1{appli Apply 1 Uni vers LACTATE 1-11 cator} Applicator ity of TOPICAL 10:28: to [place](s) [place] 16 2 (two) Medical times Branch daily. bisacodyL 2021-02 Yes 10mg Insert 10 Uni vers 10 mg 1-11 mg into ity of suppository 10:28: rectum [place] 16 once daily Medical as needed Branch (neurogeni c bladder). cyclobenzap 2021-02 Yes 10mg Take 10 mg Univers rine 10 mg 1-11 by mouth ity o f tablet 10:28: every 8 [place] 16 (eight) Medical hours. Branch docusate 2021-02 Yes 100mg Take 100 Univ ers 100 mg 1-11 mg by ity of capsule 10:28: mouth 2 [place] 16 (two) Medical times Branch daily. gabapentin 2021-02 Yes 300mg Take 300 Un mona 300 mg 1-11 mg by ity of capsule 10:28: mouth 2 [place] 16 (two) Medical times Branch daily. HYDROcodone 2021-02 Yes 2{tbl} Take 2 Un mona -acetaminop 1-11 tablets by it y of hen 5-325 10:28: mouth [place] mg tablet 16 every 6 Medical (six) Branch hours. lactulose 2021-02 Yes 30mL Take 30 mL Un mona 10 gram/15 1-11 by mouth ity o f mL oral 10:28: once daily [place] solution 16 as needed Medica l for Branch Constipati on (daily). Magnesium 2021-02 Yes 2{tbl} Take 2 Univ ers 250 mg Tab 1-11 tablets by ity of 10:28: mouth [place] 16 daily. Medical Branch melatonin 2021-02 Yes 10mg Take 10 mg Un mona 10 mg Tab 1-11 by mouth ity of 10:28: at [place] 16 bedtime. Medical Branch metoprolol 2021-02 Yes 12.5mg Take 12.5 Univers tartrate 25 1-11 mg by ity of mg tablet 10:28: mouth 2 [place] 16 (two) Medical times Branch daily. polyethylen 2021-02 Yes 17g Take 17 g U nivers e glycol 1-11 by mouth ity of 3350 17 10:28: daily. [place] gram/dose 16 Medical powder Branch nicotine 7 2021-02 Yes 1{patch Apply 1 U nivers mg/24 hr 1-11 } Patch to ity of patch 10:28: area(s) [place] 16 every 24 Medical (twenty-fo Branch ur) hours. pregabalin 2021-02 Yes 150mg Take 150 Un mona 150 mg 1-11 mg by ity of capsule 10:28: mouth 2 [place] 16 (two) Medical times Branch daily. ascorbic 2021-02 Yes 500mg Take 500 Univ ers acid, 1-11 mg by ity of vitamin C, 10:28: mouth. [place] 500 mg 16 Medical tablet Branch Zinc 50 mg 2021-02 Yes 50mg Take 50 mg U nivers Tab 1-11 by mouth ity of 10:28: daily. [place] [address] Medical Branch acetaminoph 2021-02 Yes 500mg Take 500 U nivers en 500 mg 1-11 mg by ity of tablet 10:28: mouth [place] 16 every 6 Medical (six) Branch hours as needed for Pain. AMMONIUM 2021-02 Yes 1{appli Apply 1 Uni vers LACTATE 1-11 cator} Applicator ity of TOPICAL 10:28: to area(s) [place] 16 2 (two) Medical times Branch daily. bisacodyL 2021-02 Yes 10mg Insert 10 Uni vers 10 mg 1-11 mg into ity of suppository 10:28: rectum [place] 16 once daily Medical as needed Branch (neurogeni c bladder). cyclobenzap 2021-02 Yes 10mg Take 10 mg Univers rine 10 mg 1-11 by mouth ity o f tablet 10:28: every 8 [place] [address] (eight) Medical hours. Branch docusate 2021-02 Yes 100mg Take 100 Univ ers 100 mg 1-11 mg by ity of capsule 10:28: mouth 2 [place] [address] (two) Medical times Branch daily. gabapentin 2021-02 Yes 300mg Take 300 Un mona 300 mg 1-11 mg by ity of capsule 10:28: mouth 2 [place] 16 (two) Medical times Branch daily. HYDROcodone 2021-02 Yes 2{tbl} Take 2 Un mona -acetaminop 1-11 tablets by it y of hen 5-325 10:28: mouth [place] mg tablet 16 every 6 Medical (six) Branch hours. lactulose 2021-02 Yes 30mL Take 30 mL Un mona 10 gram/15 1-11 by mouth ity o f mL oral 10:28: once daily [place] solution 16 as needed Medica l for Branch Constipati on (daily). Magnesium 2021-02 Yes 2{tbl} Take 2 Univ ers 250 mg Tab 1-11 tablets by ity of 10:28: mouth [place] 16 daily. Medical Branch melatonin 2021-02 Yes 10mg Take 10 mg Un mona 10 mg Tab 1-11 by mouth ity of 10:28: at [place] [address] bedtime. Medical Branch metoprolol 2021-02 Yes 12.5mg Take 12.5 Univers tartrate 25 1-11 mg by ity of mg tablet 10:28: mouth 2 [place] [address] (two) Medical times Branch daily. polyethylen 2021-02 Yes 17g Take 17 g U nivers e glycol 1-11 by mouth ity of 3350 17 10:28: daily. [place] gram/dose 16 Medical powder Branch nicotine 7 2021-02 Yes 1{patch Apply 1 U nivers mg/24 hr 1-11 } Patch to ity of patch 10:28: area(s) [place] 16 every 24 Medical (twenty-fo Branch ur) hours. pregabalin 2021-02 Yes 150mg Take 150 Un mona 150 mg 1-11 mg by ity of capsule 10:28: mouth 2 [place] [address] (two) Medical times Branch daily. ascorbic 2021-02 Yes 500mg Take 500 Univ ers acid, 1-11 mg by ity of vitamin C, 10:28: mouth. [place] 500 mg 16 Medical tablet Branch Zinc 50 mg 2021-02 Yes 50mg Take 50 mg U nivers Tab 1-11 by mouth ity of 10:28: daily. [place] [address] Medical Branch acetaminoph 2021-02 Yes 500mg Take 500 U nivers en 500 mg 1-11 mg by ity of tablet 10:28: mouth [place] [address] every 6 Medical (six) Branch hours as needed for Pain. AMMONIUM 2021-02 Yes 1{appli Apply 1 Uni vers LACTATE 1-11 cator} Applicator ity of TOPICAL 10:28: to area(s[place] 16 2 (two) Medical times Branch daily. bisacodyL 2021-02 Yes 10mg Insert 10 Uni vers 10 mg 1-11 mg into ity of suppository 10:28: rectum [place] 16 once daily Medical as needed Branch (neurogeni c bladder). cyclobenzap 2021-02 Yes 10mg Take 10 mg [facility] rine 10 mg 1-11 by mouth ity o f tablet 10:28: every 8 [place] 16 (eight) Medical hours. Branch docusate 2021-02 Yes 100mg Take 100 Univ ers 100 mg 1-11 mg by ity of capsule 10:28: mouth 2 [place] 16 (two) Medical times Branch daily. gabapentin 2021-02 Yes 300mg Take 300 [facility] 300 mg 1-11 mg by ity of capsule 10:28: mouth 2 [place] 16 (two) Medical times Branch daily. HYDROcodone 2021-02 Yes 2{tbl} Take 2 [facility] -acetaminop 1-11 tablets by it y of hen 5-325 10:28: mouth [place] mg tablet 16 every 6 Medical (six) Branch hours. lactulose 2021-02 Yes 30mL Take 30 mL [facility] 10 gram/15 1-11 by mouth ity o f mL oral 10:28: once daily [place] solution 16 as needed Medica l for Branch Constipati on (daily). Magnesium 2021-02 Yes 2{tbl} Take 2 Univ ers 250 mg Tab 1-11 tablets by ity of 10:28: mouth [place] 16 daily. Medical Branch melatonin 2021-02 Yes 10mg Take 10 mg [facility] 10 mg Tab 1-11 by mouth ity of 10:28: at [place] 16 bedtime. Medical Branch metoprolol 2021-02 Yes 12.5mg Take 12.5 [facility] tartrate 25 1-11 mg by ity of mg tablet 10:28: mouth 2 [place] 16 (two) Medical times Branch daily. polyethylen 2021-02 Yes 17g Take 17 g U nivers e glycol 1-11 by mouth ity of 3350 17 10:28: daily. [place] gram/dose 16 Medical powder Branch nicotine 7 2021-02 Yes 1{patch Apply 1 U nivers mg/24 hr 1-11 } Patch to ity of patch 10:28: area(s) [place] 16 every 24 Medical (twenty-fo Branch ur) hours. pregabalin 2021-02 Yes 150mg Take 150 [facility] 150 mg 1-11 mg by ity of capsule 10:28: mouth 2 [place] 16 (two) Medical times Branch daily. ascorbic 2021-02 Yes 500mg Take 500 Univ ers acid, 1-11 mg by ity of vitamin C, 10:28: mouth. [place] 500 mg 16 Medical tablet Branch Zinc 50 mg 2021-02 Yes 50mg Take 50 mg U nivers Tab 1-11 by mouth ity of 10:28: daily. [place] [address] Medical Branch levoFLOXaci 2021-02 No 500mg 500 mg, U nivers n 0-16 10-16 Oral, ity of (LEVAQUIN) 03:30: 03:40 ONCE, 1 [place] [facility] tablet 500 00 :00 dose, On Medic al mg Sat Branch 11/30/21 at 2230, ANAMARIA
Re ason for Anti-Infec tive: Documented Infection< br>Documen isai Infection Site: Urine
D uration of Therapy: Other (see Comments) levoFLOXaci 2021-02 Yes [id number] 500mg Take 1 [facility] n 0-15 tablet by ity of (LEVAQUIN) 00:00: mouth [place] 500 mg 00 every 24 Medical tablet (twenty-fo Branch ur) hours. levoFLOXaci 2021-02 Yes [id number] 500mg Take 1 [facility] n 0-15 tablet by ity of (LEVAQUIN) 00:00: mouth [place] 500 mg 00 every 24 Medical tablet (twenty-fo Branch ur) hours. levoFLOXaci 2021-02 Yes [id number] 500mg Take 1 [facility] n 0-15 tablet by ity of (LEVAQUIN) 00:00: mouth [place] 500 mg 00 every 24 Medical tablet (twenty-fo Branch ur) hours. levoFLOXaci 2021-02 Yes [id number] 500mg Take 1 [facility] n 0-15 tablet by ity of (LEVAQUIN) 00:00: mouth [place] 500 mg 00 every 24 Medical tablet (twenty-fo Branch ur) hours. levoFLOXaci 2021-02 Yes [id number] 500mg Take 1 [facility] n 0-15 tablet by ity of (LEVAQUIN) 00:00: mouth [place] 500 mg 00 every 24 Medical tablet (twenty-fo Branch ur) hours. levoFLOXaci 2021-02 Yes [id number] 500mg Take 1 [facility] n 0-15 tablet by ity of (LEVAQUIN) 00:00: mouth [place] 500 mg 00 every 24 Medical tablet (twenty-fo Branch ur) hours. levoFLOXaci 2021-02 Yes [id number] 500mg Take 1 [facility] n 0-15 tablet by ity of (LEVAQUIN) 00:00: mouth [place] 500 mg 00 every 24 Medical tablet (twenty-fo Branch ur) hours. cefdinir 2021- No 300mg Q.5D Take 1 Metho di (OMNICEF) 11-[address] 300 MG 00:00: 04:59 (300 mg [facility] capsule 00 :00 total) by l mouth 2 (two) times a day for 7 days. nicotine 2021- Yes 4mg Chew 1 Method i polacrilex 10-20 10-05 each ([address] (NICORETTE) 00:00: 04:59 total) as [facility] 4 MG gum 00 :00 needed for l smoking cessation for up to 30 days. nicotine 2021- No 4mg Chew 1 Method i polacrilex 10-20-05 each ([address] (NICORETTE) 00:00: 04:59 total) as [facility]osp[facility] 4 MG gum 00 :00 needed for l smoking cessation for up to 30 days. HYDROcodone 2021- No 2{tbl} 2 tablet, Univers -acetaminop 10-08 Oral, ity of hen (NORCO 05:30: 04:18 ONCE, 1 [place] [facility] as 5) 5-325 mg 00 :00 dose, On [facility] wero tablet 2 [facility] tablet 10/08/21 at 0030, Routine pregabalin 2021- No 150mg 150 mg, [facility] (LYRICA) 10-08 Oral, ONCE ity of capsule 150 05:30: 05:04 NOW, 1 [place] as mg 00 :00 dose, On [facility] Branch 10/08/21 at 0030, Routine gabapentin 2021- No 300mg 300 mg, [facility] (NEURONTIN) 10-08 Oral, ity of capsule 300 04:30: 04:18 ONCE, 1 [place] mg 00 :00 dose, On [facility] Branch 10/07/21 at 2330, ANAMARIA acetaminoph 2021- No 1000mg 1,000 mg, Univers en 10-08 Oral, PRN, ity of (TYLENOL) 03:41: 03:44 1 dose, [place] tablet 35 :00 Starting Medical 1,000 mg on Mon Branch 10/07/21 at 2241, Until 10/07/21 at 2244, ANAMARIA, Pain (scale 4-6), headache nicotine Yes 1{patch 1 Patch, [facility] (NICODERM) 10-06 } Topical, ity o f 21 mg/24 hr 08:45: Administer [place] patch 1 00 over 24 Medical Patch Hours, Branch Q24H, First dose on 10/06/21 at 0345, Until Discontinu ed, Routine gabapentin 2021- No 300mg 300 mg, [facility] (NEURONTIN) 10-06 Oral, ity of capsule 300 08:30: 08:19 ONCE, 1 [place] mg 00 :00 dose, On Medical Sun Branch 10/06/21 at 0330, ANAMARIA cephALEXin 2021- No 500mg 500 mg, [facility] (KEFLEX) 10-06 Oral, ity of capsule 500 03:15: 02:16 ONCE, 1 [place] mg 00 :00 dose, On Medical Sat Branch 10/05/21 at 2215, ANAMARIA
Re ason for Anti-Infec tive: Documented Infection< br>Documen isai Infection Site: Urine
D uration of Therapy: 10 days iopamidol 2021- No [id number] 65mL 65 mL, U nivers (ISOVUE 10-06 Intravenou ity o f 370-500 mL) 00:40: 00:41 s, ONCE, 1 [place] injection 00 :00 dose, On Medica l 65 mL Sat Branch 10/05/21 at 2000, Routine cephALEXin 2021-0 2021- No [id number] 500mg Take 1 Univers (KEFLEX) 10-06 capsule by ity of 500 mg 00:00: 04:59 mouth 4 [place] capsule 00 :00 (four) Medical times Branch daily for 7 days. cephALEXin 2021-0 2021- No [id number] 500mg Take 1 Univers (KEFLEX) 10-06 capsule by ity of 500 mg 00:00: 04:59 mouth 4 [place] capsule 00 :00 (four) Medical times Branch daily for 7 days. cephALEXin 2021- No [id number] 500mg Take 1 [facility] (KEFLEX) 10-06 capsule by ity of 500 mg 00:00: 04:59 mouth 4 [place] capsule 00 :00 (four) Medical times Branch daily for 7 days. vancomycin Yes 1000mg 1,000 mg, Univers (VANCOCIN) 05-08 IV ity of 1,000 mg in 15:00: Piggyback, [place] NaCl 0.9% 00 Q12H ABX, Medic al (NS) 250 mL First dose Br anch VIAL-MATE (after IV last piggyback reorder) on Thu05/08/21 at 1000, Until Discontinu ed, Administer over 60 Minutes, 250 mL
Reas on for Anti-Infec tive: Documented Infection& lt;br>Docu mented Infection Site: Skin / Soft Tissue
Duration of Therapy: Other (see Comments) cefTRIAXone Yes 1000mg 1,000 mg, Univers (ROCEPHIN) 05-08 IV ity of 1,000 mg in 14:23: Piggyback, [place] NaCl 0.9% 00 Q12H ABX, Medic al (NS) 50 mL First dose Bra nch MINI-BAG (after last modificati on) on Thu05/08/21 at 0930, Until Discontinu ed, Administer over 30 Minutes, 50 mL
Reas on for Anti-Infec tive: Documented Infection< br>Documen isai Infection Site: Skin / Soft Tissue
Duration of Therapy: 7 days pregabalin Yes 100mg 100 mg, Uni vers (LYRICA) 05-08 Oral, BID, ity o f capsule 100 13:00: First dose [place] mg 00 (after Medical last Branch modificati on) on Thu05/08/21 at 0800, Until Discontinu ed, Routine QUEtiapine Yes 50mg 50 mg, Unive rs (SEROQUEL) 3- Oral, QPM, ity of tablet 50 07:00: First dose [place] mg 00 on Thu05/08/21 at Branch 0200, Until Discontinu ed, Routine docusate 0 Yes 100mg 100 mg, Unive rs (COLACE) 3-23 Oral, BID, ity o f capsule 100 07:00: First dose [place] mg 00 on Thu Medical 05/08/21 at Branch 0200, Until Discontinu ed, Routine sennosides 0 Yes 8.6mg 8.6 mg, Uni vers (SENOKOT) 3-23 Oral, BID, ity of tablet 8.6 07:00: First dose [place] mg 00 on Thu Medical 05/08/21 at Branch 0200, Until Discontinu ed, Routine metoprolol 0 Yes 25mg 25 mg, Unive rs tartrate 3-23 Oral, BID, ity o f (LOPRESSOR) 07:00: First dose [place] tablet 25 00 on Thu Medical mg 05/08/21 at Branch 0200, Until Discontinu ed, Routine AMMONIUM 2021-0 Yes 1{appli Apply 1 Uni vers LACTATE 3-23 cator} Applicator ity of TOPICAL 05:21: to area(s[place] 56 2 (two) Medical times Branch daily. bisacodyL 0 Yes 10mg Insert 10 Uni vers 10 mg 3-23 mg into ity of suppository 05:21: rectum [place] 56 once daily Medical as needed Branch (neurogeni c bladder). cyclobenzap 2021-0 Yes 10mg Take 10 mg [facility] rine 10 mg 3-23 by mouth ity o f tablet 05:21: every 8 [place] 56 (eight) Medical hours. Branch docusate 0 Yes 100mg Take 100 Univ ers 100 mg 3-23 mg by ity of capsule 05:21: mouth 2 [place] 56 (two) Medical times Branch daily. gabapentin 2021-0 Yes 300mg Take 300 [facility] 300 mg 3-23 mg by ity of capsule 05:21: mouth 2 [place] 56 (two) Medical times Branch daily. HYDROcodone [...] 05:21: mouth [place] daily. Medical Branch melatonin 0 Yes 10mg Take 10 mg [facility] 10 mg Tab 3-23 by mouth ity of 05:21: at [place] [address] bedtime. Medical Branch metoprolol 0 Yes 12.5mg Take 12.5 Univers tartrate 25 3-23 mg by ity of mg tablet 05:21: mouth 2 [place] [address] (two) Medical times Branch daily. polyethylen 0 Yes 17g Take 17 g U nivers e glycol 3-23 by mouth ity of 3350 05:21: daily. [place] (MIRALAX) Medical 17 Branch gram/dose powder nicotine 2021-0 Yes 1{patch Apply 1 Uni vers (NICODERM 3-23 } Patch to ity of CQ) 7 mg/24 05:21: area(s) [place] as hr patch 56 every 24 Medical (twenty-fo Branch ur) hours. pregabalin 0 Yes 150mg Take 150 [facility] 150 mg 3-23 mg by ity of capsule 05:21: mouth 2 [place] [address] (two) Medical times Branch daily. ascorbic 2021-0 Yes 500mg Take 500 Univ ers acid, 3-23 mg by ity of vitamin C, 05:21: mouth. [place] (VITAMIN C) Medical 500 mg Branch tablet Zinc 50 mg 2021-0 Yes 50mg Take 50 mg U nivers Tab 3-23 by mouth ity of 05:21: daily. [place] [address] Medical Branch acetaminoph 0 Yes 500mg Take [...] ity o f tablet 05:21: every 8 [place] [address] (eight) Medical hours. Branch docusate 0 Yes 100mg Take 100 Univ ers 100 mg 3-23 mg by ity of capsule 05:21: mouth 2 [place] [address] (two) Medical times Branch daily. gabapentin 2021-0 Yes 300mg Take 300 [facility] 300 mg 3-23 mg by ity of capsule 05:21: mouth 2 [place] [address] (two) Medical times Branch daily. HYDROcodone 2021-0 [...] 3-23 tablets by ity of 05:21: mouth [place] [address] daily. Medical Branch melatonin 0 Yes 10mg Take 10 mg [facility] 10 mg Tab 3-23 by mouth ity of 05:21: at [place] [address] bedtime. Medical Branch metoprolol Yes 12.5mg Take 12.5 [facility] tartrate 25 3-23 mg by ity of mg tablet 05:21: mouth 2 [place] [address] (two) Medical times Branch daily. polyethylen 2021-0 Yes 17g Take 17 g U nivers e glycol 3-23 by mouth ity of 3350 05:21: daily. [place] (MIRALAX) Medical 17 Branch gram/dose powder nicotine [...] 56 (two) Medical times Branch daily. ascorbic 202-0 Yes 500mg Take 500 Univ ers acid, 3-23 mg by ity of vitamin C, 05:21: mouth. [place] (VITAMIN C) Medical 500 mg Branch tablet Zinc 50 mg 2021-0 Yes 50mg Take 50 mg U nivers Tab 3-23 by mouth ity of 05:21: daily. [place] [address] Medical Branch acetaminoph 202-0 Yes 500mg Take [...] ity o f tablet 05:21: every 8 [place] [address] (eight) Medical hours. Branch docusate 2021-0 Yes 100mg Take 100 Univ ers 100 mg 3-23 mg by ity of capsule 05:21: mouth 2 [place] [address] (two) Medical times Branch daily. gabapentin 2-0 Yes 300mg Take 300 [facility] 300 mg 3-23 mg by ity of capsule 05:21: mouth 2 [place] [address] (two) Medical times Branch daily. HYDROcodone 2022-0 [...] mouth [place] 56 daily. Medical Branch melatonin 2022-0 Yes 10mg Take 10 mg [facility] 10 mg Tab 3-23 by mouth ity of 05:21: at [place] [address] bedtime. Medical Branch metoprolol Yes 12.5mg Take 12.5 [facility] tartrate 25 3-23 mg by ity of mg tablet 05:21: mouth 2 [place] [address] (two) Medical times Branch daily. polyethylen 0 Yes 17g Take 17 g U nivers e glycol 3-23 by mouth ity of 3350 05:21: daily. [place] (MIRALAX) Medical 17 Branch gram/dose powder nicotine 0 Yes 1{patch Apply 1 Uni vers (NICODERM 3-23 } Patch to ity of CQ) 7 mg/24 05:21: area(s) [place] as hr patch 56 every 24 Medical (twenty-fo Branch ur) hours. pregabalin Yes 150mg Take 150 [facility] 150 mg 3-23 mg by ity of capsule 05:21: mouth 2 [place] [address] (two) Medical times Branch daily. ascorbic 0 Yes 500mg Take 500 Univ ers acid, 3-23 mg by ity of vitamin C, 05:21: mouth. [place] (VITAMIN C) Medical 500 mg Branch tablet Zinc 50 mg 0 Yes 50mg Take 50 mg U nivers Tab 3-23 by mouth ity of 05:21: daily. [place] [address] Medical Branch acetaminoph 0 Yes 500mg Take 500 U nivers en 500 mg 3-23 mg by ity of tablet 05:21: mouth [place] [address] every 6 Medical (six) Branch hours as needed for Pain. AMMONIUM 0 Yes 1{appli Apply 1 Uni vers LACTATE [...] ity o f tablet 05:21: every 8 [place] [address] (eight) Medical hours. Branch docusate 0 Yes 100mg Take 100 Univ ers 100 mg 3-23 mg by ity of capsule 05:21: mouth 2 [place] [address] (two) Medical times Branch daily. gabapentin 2021-0 Yes 300mg Take 300 [facility] 300 mg 3-23 mg by ity of capsule 05:21: mouth 2 [place] [address] (two) Medical times Branch daily. HYDROcodone 2021-0 [...] 3-23 tablets by ity of 05:21: mouth [place] [address] daily. Medical Branch melatonin 2021-0 Yes 10mg Take 10 mg [facility] 10 mg Tab 3-23 by mouth ity of 05:21: at [place] [address] bedtime. Medical Branch metoprolol 0 Yes 12.5mg Take 12.5 [facility] tartrate 25 3-23 mg by ity of mg tablet 05:21: mouth 2 [place] [address] (two) Medical times Branch daily. polyethylen 0 Yes 17g Take 17 g U nivers e glycol 3-23 by mouth ity of 3350 05:21: daily. [place] (MIRALAX) Medical 17 Branch gram/dose powder nicotine 2021-0 Yes 1{patch Apply 1 Uni vers (NICODERM 3-23 } Patch to ity of CQ) 7 mg/24 05:21: area(s) [place] as hr patch 56 every 24 Medical (twenty-fo Branch ur) hours. pregabalin 2021-0 Yes 150mg Take 150 [facility] 150 mg 3-23 mg by ity of capsule 05:21: mouth 2 [place] [address] (two) Medical times Branch daily. ascorbic 2021-0 Yes 500mg Take 500 Univ ers acid, 3-23 mg by ity of vitamin C, 05:21: mouth. [place] (VITAMIN C) 56 Medical 500 mg Branch tablet Zinc 50 mg 2021-0 Yes 50mg Take 50 mg U nivers Tab 3-23 by mouth ity of 05:21: daily. [place] [address] Medical Branch acetaminoph 2021-0 Yes 500mg Take [...] ity o f tablet 05:21: every 8 [place] [address] (eight) Medical hours. Branch docusate 0 Yes 100mg Take 100 Univ ers 100 mg 3-23 mg by ity of capsule 05:21: mouth 2 [place] 56 (two) Medical times Branch daily. gabapentin 2021-0 Yes 300mg Take 300 [facility] 300 mg 3-23 mg by ity of capsule 05:21: mouth 2 [place] 56 (two) Medical times Branch daily. HYDROcodone [...] ity of mg tablet 05:21: mouth 2 [place] [address] (two) Medical times Branch daily. polyethylen 2021-0 Yes 17g Take 17 g U nivers e glycol 3-23 by mouth ity of 3350 05:21: daily. [place] (MIRALAX) Medical 17 Branch gram/dose powder nicotine 2021-0 Yes 1{patch Apply 1 Uni vers (NICODERM 3-23 } Patch to ity of CQ) 7 mg/24 05:21: area(s) [place] as hr patch 56 every 24 Medical (twenty-fo Branch ur) hours. pregabalin 2021-0 Yes 150mg Take 150 [place] 150 mg 3-23 mg by ity of capsule 05:21: mouth 2 [place] [address] (two) Medical times Branch daily. ascorbic 2021-0 Yes 500mg Take 500 Univ ers acid, 3-23 mg by ity of vitamin C, 05:21: mouth. [place] (VITAMIN C) Medical 500 mg Branch tablet Zinc 50 mg 2021-0 Yes 50mg Take 50 mg U nivers Tab 3-23 by mouth ity of 05:21: daily. [place] [address] Medical Branch acetaminoph 2021-0 Yes 500mg Take 500 U nivers en 500 mg 3-23 mg by ity of tablet 05:21: mouth [place] [address] every 6 Medical (six) Branch hours as [...] ity o f tablet 05:21: every 8 [place] [address] (eight) Medical hours. Branch docusate 2021-0 Yes 100mg Take 100 Univ ers 100 mg 3-23 mg by ity of capsule 05:21: mouth 2 [place] [address] (two) Medical times Branch daily. gabapentin 2022-0 Yes 300mg Take 300 [place] 300 mg 3-23 mg by ity of capsule 05:21: mouth 2 [place] [address] (two) Medical times Branch daily. HYDROcodone 2021-0 [...] 3-23 tablets by ity of 05:21: mouth [place] [address] daily. Medical Branch melatonin 2021-0 Yes 10mg Take 10 mg [place] 10 mg Tab 3-23 by mouth ity of 05:21: at [place] [address] bedtime. Medical Branch metoprolol 2021-0 Yes 12.5mg Take 12.5 [facility] tartrate 25 3-23 mg by ity of mg tablet 05:21: mouth 2 [place] [address] (two) Medical times Branch daily. polyethylen 2021-0 Yes 17g Take 17 g U nivers e glycol 3-23 by mouth ity of 3350 05:21: daily. [place] (MIRALAX) Medical 17 Branch gram/dose powder nicotine 2021-0 Yes 1{patch Apply 1 Uni vers (NICODERM 3-23 } Patch to ity of CQ) 7 mg/24 05:21: area(s) [place] as hr patch 56 every 24 Medical (twenty-fo Branch ur) hours. pregabalin 2021-0 Yes 150mg Take 150 [place] 150 mg 3-23 mg by ity of capsule 05:21: mouth 2 [place] [address] (two) Medical times Branch daily. ascorbic 2021-0 Yes 500mg Take 500 Univ ers acid, 3-23 mg by ity of vitamin C, 05:21: mouth. [place] (VITAMIN C) Medical 500 mg Branch tablet Zinc 50 mg 2021-0 Yes 50mg Take 50 mg U nivers Tab 3-23 by mouth ity of 05:21: daily. [address] Branch acetaminoph 2021-0 Yes 500mg Take [...] [place] 56 (two) Medical times Branch daily. HYDROcodone [...] ity of 3350 05:21: daily. [place] (MIRALAX) Medical 17 Branch gram/dose powder nicotine 2021-0 Yes 1{patch Apply 1 Uni vers (NICODERM 3-23 } Patch to ity of CQ) 7 mg/24 05:21: area(s) [place] as hr patch 56 every 24 Medical (twenty-fo Branch ur) hours. pregabalin 202-0 Yes 150mg Take 150 [place] 150 mg 3-23 mg by ity of capsule 05:21: mouth 2 [place] [address] (two) Medical times Branch daily. ascorbic 2022-0 Yes 500mg Take 500 Univ ers acid, 3-23 mg by ity of vitamin C, 05:21: mouth. [place] (VITAMIN C) Medical 500 mg Branch tablet Zinc 50 mg 2021-0 Yes 50mg Take 50 mg U nivers Tab 3-23 by mouth ity of 05:21: daily. [place] [address] Medical Branch acetaminoph 2021-0 Yes 500mg Take 500 U nivers en 500 mg 3-23 mg by ity of tablet 05:21: mouth [place] [address] every 6 Medical (six) Branch hours as [...] as needed Branch (neurogeni c bladder). cyclobenzap 202-0 Yes 10mg Take 10 mg [facility] rine 10 mg 3-23 by mouth ity o f tablet 05:21: every 8 [place] [address] (eight) Medical hours. Branch docusate 2022-0 Yes 100mg Take 100 Univ ers 100 mg 3-23 mg by ity of capsule 05:21: mouth 2 [place] [address] (two) Medical times Branch daily. gabapentin 2022-0 Yes 300mg Take 300 [place] 300 mg 3-23 mg by ity of capsule 05:21: mouth 2 [place] [address] (two) Medical times Branch daily. HYDROcodone 2022-0 Yes 2{tbl} Take 2 [facility] -acetaminop 3-23 tablets by it y of hen 5-325 05:21: mouth [place] mg tablet 56 every 6 Medical (six) Branch hours. lactulose Yes 30mL Take 30 mL Un [facility]a [...] 3-23 by mouth ity of 05:21: at [place] [address] bedtime. Medical Branch metoprolol Yes 12.5mg Take 12.5 [facility] tartrate 25 3-23 mg by ity of mg tablet 05:21: mouth 2 [place] 56 (two) Medical times Branch daily. polyethylen Yes 17g Take 17 g U nivers e glycol 3-23 by mouth ity of 3350 05:21: daily. [place] (MIRALAX) Medical 17 Branch gram/dose powder nicotine Yes 1{patch Apply 1 Uni vers (NICODERM 3-23 } Patch to ity of CQ) 7 mg/24 05:21: area(s) [place] as hr patch 56 every 24 Medical (twenty-fo Branch ur) hours. pregabalin Yes 150mg Take 150 [place] 150 mg 3-23 mg by ity of capsule 05:21: mouth 2 [place] [address] (two) Medical times Branch daily. ascorbic Yes 500mg Take 500 Univ ers acid, 3-23 mg by ity of vitamin C, 05:21: mouth. [place] (VITAMIN C) 56 Medical 500 mg Branch tablet Zinc 50 mg 0 Yes 50mg Take 50 mg U nivers Tab 3-23 by mouth ity of 05:21: daily. [place] [address] Medical Branch acetaminoph 0 Yes 500mg Take [...] ity o f tablet 05:21: every 8 [place] 56 (eight) Medical hours. Branch docusate 2021-0 Yes 100mg Take 100 Univ ers 100 mg 3-23 mg by ity of capsule 05:21: mouth 2 [place] 56 (two) Medical times Branch daily. gabapentin 2021-0 Yes 300mg Take 300 [place] 300 mg 3-23 mg by ity of capsule 05:21: mouth 2 [place] 56 (two) Medical times Branch daily. HYDROcodone [...] 3-23 by mouth ity of 05:21: at [place] [address] bedtime. Medical Branch metoprolol 2021-0 Yes 12.5mg Take 12.5 [facility] tartrate 25 3-23 mg by ity of mg tablet 05:21: mouth 2 [place] 56 (two) Medical times Branch daily. polyethylen [...] by ity of capsule 05:21: mouth 2 [place] [address] (two) Medical times Branch daily. ascorbic 2022-0 Yes 500mg Take 500 Univ ers acid, 3-23 mg by ity of vitamin C, 05:21: mouth. [place] (VITAMIN C) Medical 500 mg Branch tablet Zinc 50 mg 2021-0 Yes 50mg Take 50 mg U nivers Tab 3-23 by mouth ity of 05:21: daily. [place] [address] Medical Branch acetaminoph 2021-0 Yes 500mg Take [...] ity o f tablet 05:21: every 8 [place] [address] (eight) Medical hours. Branch docusate 2021-0 Yes 100mg Take 100 Univ ers 100 mg 3-23 mg by ity of capsule 05:21: mouth 2 [place] [address] (two) Medical times Branch daily. gabapentin 2022-0 Yes 300mg Take 300 [facility] [place] 300 mg 3-23 mg by ity of capsule 05:21: mouth 2 [place] [address] (two) Medical times Branch daily. HYDROcodone 2022-0 [...] 3-23 tablets by ity of 05:21: mouth [place] [address] daily. Medical Branch melatonin 2021-0 Yes 10mg Take 10 mg [facility] [place] 10 mg Tab 3-23 by mouth ity of 05:21: at [place] [address] bedtime. Medical Branch metoprolol 2021-0 Yes 12.5mg Take 12.5 [facility] tartrate 25 3-23 mg by ity of mg tablet 05:21: mouth 2 [place] [address] (two) Medical times Branch daily. polyethylen 2021-0 Yes 17g Take 17 g U nivers e glycol 3-23 by mouth ity of 3350 05:21: daily. [place] (MIRALAX) Medical 17 Branch gram/dose powder nicotine 2021-0 Yes 1{patch Apply 1 Uni vers (NICODERM 3-23 } Patch to ity of CQ) 7 mg/24 05:21: area(s) [place] as hr patch 56 every 24 Medical (twenty-fo Branch ur) hours. pregabalin 2021-0 Yes 150mg Take 150 [facility] [place] 150 mg 3-23 mg by ity of capsule 05:21: mouth 2 [place] [address] (two) Medical times Branch daily. ascorbic 2021-0 Yes 500mg Take 500 Univ ers acid, 3-23 mg by ity of vitamin C, 05:21: mouth. [place] (VITAMIN C) Medical 500 mg Branch tablet Zinc 50 mg 2021-0 Yes 50mg Take 50 mg U nivers Tab 3-23 by mouth ity of 05:21: daily. [place] [address] Medical Branch acetaminoph 2021-0 Yes 500mg Take [...] ity o f tablet 05:21: every 8 [place] [address] (eight) Medical hours. Branch docusate 0 Yes 100mg Take 100 Univ ers 100 mg 3-23 mg by ity of capsule 05:21: mouth 2 [place] [address] (two) Medical times Branch daily. gabapentin 2021-0 Yes 300mg Take 300 [facility] 300 mg 3-23 mg by ity of capsule 05:21: mouth 2 [place] [address] (two) Medical times Branch daily. HYDROcodone 0 [...] 3-23 tablets by ity of 05:21: mouth [place] [address] daily. Medical Branch melatonin 0 Yes 10mg Take 10 mg [facility] 10 mg Tab 3-23 by mouth ity of 05:21: at [place] [address] bedtime. Medical Branch metoprolol Yes 12.5mg Take 12.5 [facility] tartrate 25 3-23 mg by ity of mg tablet 05:21: mouth 2 [place] [address] (two) Medical times Branch daily. polyethylen 0 Yes 17g Take 17 g U nivers e glycol 3-23 by mouth ity of 3350 05:21: daily. [place] (MIRALAX) Medical 17 Branch gram/dose powder nicotine 2021-0 Yes 1{patch Apply 1 Uni vers (NICODERM 3-23 } Patch to ity of CQ) 7 mg/24 05:21: area(s) [place] as hr patch 56 every 24 Medical (twenty-fo Branch ur) hours. pregabalin 2021-0 Yes 150mg Take 150 [facility] 150 mg 3-23 mg by ity of capsule 05:21: mouth 2 [place] [address] (two) Medical times Branch daily. ascorbic 2022-0 Yes 500mg Take 500 Univ ers acid, 3-23 mg by ity of vitamin C, 05:21: mouth. [place] (VITAMIN C) Medical 500 mg Branch tablet Zinc 50 mg 2021-0 Yes 50mg Take 50 mg U nivers Tab 3-23 by mouth ity of 05:21: daily. [place] [address] Medical Branch acetaminoph 202-0 Yes 500mg Take [...] as needed Branch (neurogeni c bladder). cyclobenzap 202-0 Yes 10mg Take 10 mg [facility] rine 10 mg 3-23 by mouth ity o f tablet 05:21: every 8 [place] [address] (eight) Medical hours. Branch docusate 2021-0 Yes 100mg Take 100 [facility] ers 100 mg 3-23 mg by ity of capsule 05:21: mouth 2 [place] 56 (two) Medical times Branch daily. gabapentin 202-0 Yes 300mg Take 300 [facility] 300 mg 3-23 mg by ity of capsule 05:21: mouth 2 [place] 56 (two) Medical times Branch daily. HYDROcodone 2022-0 [...] mouth [place] 56 daily. Medical Branch melatonin 2022-0 Yes 10mg Take 10 mg [facility] 10 mg Tab 3-23 by mouth ity of 05:21: at [place] [address] bedtime. Medical Branch metoprolol 2021-0 Yes 12.5mg Take 12.5 [facility] tartrate 25 3-23 mg by ity of mg tablet 05:21: mouth 2 [place] [address] (two) Medical times Branch daily. polyethylen 2021-0 Yes 17g Take 17 g U nivers e glycol 3-23 by mouth ity of 3350 05:21: daily. [place] (MIRALAX) Medical 17 Branch gram/dose powder nicotine 2021-0 Yes 1{patch Apply 1 Uni vers (NICODERM 3-23 } Patch to ity of CQ) 7 mg/24 05:21: area(s) Jose R as hr patch 56 every 24 Medical (twenty-fo Branch ur) hours. pregabalin 0 Yes 150mg Take 150 [facility] 150 mg 3-23 mg by ity of capsule 05:21: mouth 2 [place] [address] (two) Medical times Branch daily. ascorbic 2021-0 Yes 500mg Take 500 Univ ers acid, 3-23 mg by ity of vitamin C, 05:21: mouth. [place] (VITAMIN C) Medical 500 mg Branch tablet Zinc 50 mg 2021-0 Yes 50mg Take 50 mg U nivers Tab 3-23 by mouth ity of 05:21: daily. [place] [address] Medical Branch acetaminoph 2021-0 Yes 500mg Take 500 U nivers en 500 mg 3-23 mg by ity of tablet 05:21: mouth [place] [address] every 6 Medical (six) Branch hours as [...] ity o f tablet 05:21: every 8 [place] [address] (eight) Medical hours. Branch docusate 2021-0 Yes 100mg Take 100 [facility] ers 100 mg 3-23 mg by ity of capsule 05:21: mouth 2 [place] [address] (two) Medical times Branch daily. gabapentin 202-0 Yes 300mg Take 300 [facility] 300 mg 3-23 mg by ity of capsule 05:21: mouth 2 [place] [address] (two) Medical times Branch daily. HYDROcodone 2021-0 [...] 3-23 tablets by ity of 05:21: mouth [place] [address] daily. Medical Branch melatonin 2021-0 Yes 10mg Take 10 mg [facility] 10 mg Tab 3-23 by mouth ity of 05:21: at [place] [address] bedtime. Medical Branch metoprolol 2021-0 Yes 12.5mg Take 12.5 [facility] tartrate 25 3-23 mg by ity of mg tablet 05:21: mouth 2 [place] [address] (two) Medical times Branch daily. polyethylen 2021-0 Yes 17g Take 17 g U nivers e glycol 3-23 by mouth ity of 3350 05:21: daily. [place] (MIRALAX) Medical 17 Branch gram/dose powder nicotine 2021-0 Yes 1{patch Apply 1 Uni vers (NICODERM 3-23 } Patch to ity of CQ) 7 mg/24 05:21: area(s) Jose R as hr patch 56 every 24 Medical (twenty-fo Branch ur) hours. pregabalin 2021-0 Yes 150mg Take 150 [facility] 150 mg 3-23 mg by ity of capsule 05:21: mouth 2 [place] [address] (two) Medical times Branch daily. ascorbic 2022-0 Yes 500mg Take 500 Univ ers acid, 3-23 mg by ity of vitamin C, 05:21: mouth. [place] (VITAMIN C) 56 Medical 500 mg Branch tablet Zinc 50 mg 2021-0 Yes 50mg Take 50 mg U nivers Tab 3-23 by mouth ity of 05:21: daily. [place] [address] Medical Branch acetaminoph 2021-0 Yes 500mg Take [...] [place] 56 (two) Medical times Branch daily. HYDROcodone [...] ity of mg tablet 05:21: mouth 2 [place] [address] (two) Medical times Branch daily. polyethylen 202-0 Yes 17g Take 17 g U nivers e glycol 3-23 by mouth ity of 3350 05:21: daily. [place] (MIRALAX) Medical 17 Branch gram/dose powder nicotine 2021-0 Yes 1{patch Apply 1 Uni vers (NICODERM 3-23 } Patch to ity of CQ) 7 mg/24 05:21: area(s) Jose R as hr patch 56 every 24 Medical (twenty-fo Branch ur) hours. pregabalin 2021-0 Yes 150mg Take 150 [facility] 150 mg 3-23 mg by ity of capsule 05:21: mouth 2 [place] [address] (two) Medical times Branch daily. ascorbic 2022-0 Yes 500mg Take 500 [facility] ers acid, 3-23 mg by ity of vitamin C, 05:21: mouth. [place] (VITAMIN C) Medical 500 mg Branch tablet Zinc 50 mg 2021-0 Yes 50mg Take 50 mg U nivers Tab 3-23 by mouth ity of 05:21: daily. [place] [address] Medical Branch acetaminoph 2021-0 Yes 500mg Take [...] 3-23 Oral, ity of (PROTONIX) 03:00: DAILY, [place] EC tablet 00 First dose Medi wero 40 mg on Thu Branch 05/07/21 at 2200, Until Discontinu ed, Routine cyclobenzap 2021-0 Yes 10mg 10 mg, Univ ers rine 3-23 Oral, TID, ity of (FLEXERIL) 03:00: First dose [place] tablet 10 00 on Medical mg 05/07/21 at Branch 2200, Until Discontinu ed, Routine gabapentin 2021-0 Yes 300mg 300 mg, Uni vers (NEURONTIN) 05-08 Oral, BID, it y of capsule 300 03:00: First dose [place] mg 00 on [facility] 05/07/21 at Branch 2200, Until Discontinu ed, Routine pregabalin 2021- No 50mg 50 mg, Univ ers (LYRICA) 05-08 Oral, BID, ity of capsule 50 03:00: 06:51 First dose [place] mg 00 :31 on [facility] 05/07/21 at Branch 2200, Until Discontinu ed, Routine morpHINE 2021- No 2mg 2 mg, Slow [facility] injection 2 05-08 IV Push, ity of mg 02:44: 19:29 Q4HPRN, [place] 06 :32 Starting Medical on [facility] 05/07/21 at 2144, Until Thu05/08/21 at 1429, Routine, Pain (scale 7-10) HYDROcodone 2021- No 2{tbl} 2 tablet, Univers -acetaminop 05-08 Oral, ity of hen (NORCO 02:43: 19:29 Q6HPRN, Jose R as 5) 5-325 mg 59 :34 Starting Medi wero tablet 2 on [facility] tablet 05/07/21 at 2143, Until [place] 05/09/21 at 1429, Routine, Pain (scale 4-6) docusate Yes [id number] 100mg Take 1 [facility] 100 mg 3-23 capsule by ity of capsule 00:00: mouth [place] 00 daily. [facility] docusate 0 Yes [id number] 100mg Take 1 Un mon[facility] 100 mg 3-23 capsule by ity of capsule 00:00: mouth [place] 00 daily. [facility] docusate 0 Yes [id number] 100mg Take 1 [facility] 100 mg 3-23 capsule by ity of capsule 00:00: mouth [place] 00 daily. [facility] docusate 0 Yes [id number] 100mg Take 1 [facility] 100 mg 3-23 capsule by ity of capsule 00:00: mouth [place] 00 daily. [facility] docusate 0 Yes [id number] 100mg Take 1 [facility] 100 mg 3-23 capsule by ity of capsule 00:00: mouth [place] 00 daily. Medical Branch docusate 2021-0 Yes [id number] 100mg Take 1 [facility] 100 mg 3-23 capsule by ity of capsule 00:00: mouth [place] 00 daily. Medical Branch docusate 2021-0 Yes [id number] 100mg Take 1 [facility] 100 mg 3-23 capsule by ity of capsule 00:00: mouth [place] 00 daily. Medical Branch docusate 2021-0 Yes [id number] 100mg Take 1 [facility] 100 mg 3-23 capsule by ity of capsule 00:00: mouth [place] 00 daily. Medical Branch docusate 2021-0 Yes [id number] 100mg Take 1 [facility] 100 mg 3-23 capsule by ity of capsule 00:00: mouth [place] 00 daily. Medical Branch docusate 2021-0 Yes [id number] 100mg Take 1 [facility] 100 mg 3-23 capsule by ity of capsule 00:00: mouth [place] 00 daily. Medical Branch docusate 2021-0 Yes [id number] 100mg Take 1 [facility] 100 mg 3-23 capsule by ity of capsule 00:00: mouth [place] 00 daily. Medical Branch docusate 2021-0 Yes [id number] 100mg Take 1 [facility] 100 mg 3-23 capsule by ity of capsule 00:00: mouth [place] 00 daily. Medical Branch docusate 2021-0 Yes [id number] 100mg Take 1 [facility] 100 mg 3-23 capsule by ity of capsule 00:00: mouth [place] 00 daily. Medical Branch docusate 2021-0 Yes [id number] 100mg Take 1 [facility] 100 mg 3-23 capsule by ity of capsule 00:00: mouth [place] 00 daily. Medical Branch docusate 2021-0 Yes [id number] 100mg Take 1 [facility] 100 mg 3-23 capsule by ity of capsule 00:00: mouth [place] 00 daily. Medical Branch docusate 2021-0 Yes [id number] 100mg Take 1 [facility] 100 mg 3-23 capsule by ity of capsule 00:00: mouth [place] 00 daily. Medical Branch docusate 2021-0 Yes [id number] 100mg Take 1 [facility] 100 mg 3-23 capsule by ity of capsule 00:00: mouth [place] 00 daily. Medical Branch docusate Yes [id number] 100mg Take 1 [facility] 100 mg 3-23 capsule by ity of capsule 00:00: mouth [place] 00 daily. Medical Branch docusate Yes [id number] 100mg Take 1 [facility] 100 mg 3-23 capsule by ity of capsule 00:00: mouth [place] 00 daily. Medical Branch sennosides 2021- No [id number] 8.6mg Take 1 [facility] 8.6 mg 05-08 tablet by ity of tablet 00:00: 04:59 mouth [place] 00 :00 daily for Medical 30 days. Branch pantoprazol 2021- No [id number] 40mg Take 1 Univers e 40 mg EC 05-08 tablet by ity of tablet 00:00: 04:59 mouth [place] 00 :00 daily for Medical 14 days. Branch QUEtiapine 2021- No [id number] 50mg Take 1 [facility] 50 mg 05-08 tablet by ity of tablet 00:00: 04:59 mouth [place] 00 :00 every Medical evening Branch for 14 days. doxycycline No [id number] 100mg Take 1 [facility] hyclate 100 05-08 capsule by i ty of mg capsule 00:00: 04:59 mouth 2 [place] R as 00 :00 (two) Medical times Branch daily for 10 days. levoFLOXaci 2021- No [id number] 750mg Take 1 Univers n 750 mg 05-08 tablet by ity o f tablet 00:00: 04:59 mouth [place] 00 :00 every 24 Medical (twenty- Branch ur) hours for 10 days. enoxaparin Yes 40mg 40 mg, Unive rs (LOVENOX) 05-07 Subcutaneo ity of injection 22:00: us, DAILY, [place] 40 mg 00 First dose Medical on Thu [place] 05/07/21 at 1700, Until Discontinu ed, Routine NaCl 0.9% 2021- No 1000mL at 999 Uni vers (NS) bolus 05-07 03-22 mL/hr, ity of infusion 19:45: 23:06 1,000 mL, Jose R as 1,000 mL 00 :00 IV Medical Infusion, Branch ONCE, 1 dose, [facility] 05/07/21 at 1445, STAT ondansetron Yes 4mg 4 mg, Slow Univers (ZOFRAN 05-07 IV Push, ity of (PF)) 19:30: Q6HPRN, [place] injection 4 37 Starting Medi wero mg on [facility] Branch 05/07/21 at 1430, Until Discontinu ed, Routine, Nausea and Vomiting (N/V) morpHINE 2021- No 4mg 4 mg, Slow [facility] injection 4 05-07 IV Push, ity of mg 19:30: 02:44 Q4HPRN, [place] 32 :22 Starting Medical on [facility] Branch 05/07/21 at 1430, Until Thu05/07/21 at 2144, Routine, Pain (scale 7-10) acetaminoph Yes 650mg 650 mg, [facility] en 05-07 Oral, ity of (TYLENOL) 19:30: Q6HPRN, [place] tablet 650 24 Starting Medic al mg on [facility] Branch 05/07/21 at 1430, Until Discontinu ed, [...] of NS 250 mL 19:15: 20:32 from [place] RTU IV 00 :00 1,258.5 mg Medical Piggyback = 15 mg/kg Bran ch 1,250 mg ?83.9 kg), IV Piggyback, ONCE, 1 dose, On 05/07/21 at 1415, Administer over 90 Minutes
Reason for Anti-Infec tive: Documented Infection< br>Documen isai Infection Site: Skin / Soft Tissue
Duration of Therapy: Other (see Comments) iopamidol No [id number] 120mL 120 mL, Univers (ISOVUE 05-07 Intravenou [...] 100mg QD Take 1 Metho di mononitrate -10 26-[address] , vit B1, 00:00: 04:59 [...] QD Take 1 Met hodi e (ABILIFY) 9-09 10-10 tablet (10 s t 10 MG [...] l daily for 30 days. folic acid No 1mg QD Take 1 Meth felisha [...] QD Take 1 Met hodi e (ABILIFY) 9-09 10-10 tablet (10 s t 10 MG [...] l daily for 30 days. folic acid No 1mg QD Take 1 Meth felisha [...] QD Take 1 Metho di mononitrate 10-[address] , vit B1, 00:00: 04:59 (100 mg [facility] (B-1) 100 00 :00 total) by l mg tablet mouth daily for 30 days. divalproex 2020- No 500mg Take 500 U nivers sodium 5-27 05-27 mg by ity of (DEPAKOTE 08:24: 00:00 mouth 2 [place] ORAL[place] 41 :00 (two) Medical times [place] daily. haloperidol 2020- No 1mg Take 1 mg Univers 1 mg tablet 07-12-27 by mouth 2 i ty of 08:24: 00:00 (two) [place] 41 :00 times Medical daily. Branch diazePAM 2018- No 5mg 5 mg, Univers (VALIUM) 11-05-20 Oral, ity of tablet 5 mg 06:15: 05:04 ONCE, 1 [place] 00 :00 dose, Fri Medical 11/05/18 at Branch 0115, ANAMARIA haloperidol Yes 1mg Take 1 mg U nivers 1 mg tablet - by mouth 2 it y of 03:40: (two) [place] 52 times Medical daily. Branch divalproex Yes 500mg Take 500 [facility] sodium 9-20 mg by ity of (DEPAKOTE 03:40: mouth 2 [place] ORAL) 02 (two) Medical times Branch daily. acetaminoph acetaminoph No 1capsul Q6H acetaminop [facility] en 500 mg en 500 mg e(s) hen 500 mg Medical capsule capsule capsule Take 1 Take 1 Take 1 capsule capsule capsule every 6 every 6 every 6 hours by hours by hours by oral route oral route oral route as needed. as needed. as needed. ammonium ammonium No ammonium [place] via lactate 12 lactate 12 lactate 12 Medical % lotion % lotion % lotion apply to apply to apply to bilateral bilateral bilateral feet twice feet twice feet twice a day a day a day aripiprazol aripiprazol No aripiprazo [facility] e 10 mg e 10 mg le 10 mg Medic al tablet TAKE tablet TAKE tablet 1 TABLET BY 1 TABLET BY TAKE 1 MOUTH EVERY MOUTH EVERY TABLET BY NIGHT AT NIGHT AT MOUTH BEDTIME BEDTIME EVERY NIGHT AT BEDTIME benztropine benztropine No benztropin [facility] 0.5 mg 0.5 mg e 0.5 mg Medical tablet TAKE tablet TAKE tablet 1 TABLET BY 1 TABLET BY TAKE 1 MOUTH TWICE MOUTH TWICE TABLET BY DAILY DAILY MOUTH TWICE DAILY bisacodyl bisacodyl No 1suppos Q1D bisacodyl [facility] 10 mg 10 mg itor(y/ 10 mg Medical rectal rectal ies) rectal suppository suppository suppositor Insert 1 Insert 1 y Insert 1 suppository suppository suppositor every day every day y every by rectal by rectal day by route as route as rectal needed. needed. route as needed. divalproex divalproex No divalproex [facility] 250 mg 250 mg 250 mg Medical tablet,alejandro tablet,alejandro tablet,del yed release yed release ayed TAKE 2 TAKE 2 release TABLET BY TABLET BY TAKE 2 MOUTH EVERY MOUTH EVERY TABLET BY MORNING AND MORNING AND MOUTH 1 EVERY 1 EVERY EVERY NIGHT AT NIGHT AT MORNING BEDTIME BEDTIME AND 1 EVERY NIGHT AT BEDTIME docusate docusate No 1capsul BID docusate [facility] sodium 100 sodium 100 e(s) sodium 100 Medical mg capsule mg capsule mg capsule Take 1 Take 1 Take 1 capsule capsule capsule twice a day twice a day twice a by oral by oral day by route. route. oral route. gabapentin gabapentin No 1capsul BID gabapentin [facility] 300 mg 300 mg e(s) 300 mg Medical capsule capsule capsule Take 1 Take 1 Take 1 capsule capsule capsule twice a day twice a day twice a by oral by oral day by route for route for oral route 30 days. 30 days. for 30 days. hydrocodone hydrocodone No 1 Q6H hydrocodon [facility] 5 5 e 5 Medical mg-acetamin mg-acetamin mg-acetami ophen 325 ophen 325 nophen 325 mg tablet mg tablet mg tablet Take 1 Take 1 Take 1 tablet tablet tablet every 6 every 6 every 6 hours by hours by hours by oral route oral route oral route for 30 for 30 for 30 days. days. days. lactulose lactulose No 20mL Q1D lactulose [facility] 10 gram/15 10 gram/15 10 gram/15 Medical mL oral mL oral mL oral solution solution solution Take 20 mL Take 20 mL Take 20 mL every day every day every day by oral by oral by oral route as route as route as needed for needed for needed for 15 days. 15 days. 15 days. magnesium magnesium No 2 Q1D magnesium [facility] 250 mg (as 250 mg (as 250 mg (as Medical magnesium magnesium magnesium oxide) oxide) oxide) tablet Take tablet Take tablet 2 tablets 2 tablets Take 2 every day every day tablets by oral by oral every day route. route. by oral route. melatonin melatonin No 1capsul Q1D melatonin [facility] 10 mg 10 mg e(s) 10 mg Medical capsule capsule capsule Take 1 Take 1 Take 1 capsule capsule capsule every day every day every day by oral by oral by oral route at route at route at bedtime. bedtime. bedtime. metoprolol metoprolol No .5 BID metoprolol [facility] tartrate 25 tartrate 25 tartrate Medical mg tablet mg tablet 25 mg Take 0.5 Take 0.5 tablet tablets tablets Take 0.5 twice a day twice a day tablets by oral by oral twice a route for route for day by 30 days. 30 days. oral route for 30 days. Miralax 17 Miralax 17 No Miralax 17 [facility] gram oral gram oral gram oral Medical powder powder powder packet TAKE packet TAKE packet 1 PACKET 1 PACKET TAKE 1 (17 GRAM) (17 GRAM) PACKET (17 MIXED WITH MIXED WITH GRAM) 8 OZ. 8 OZ. MIXED WITH WATER, WATER, 8 OZ. JUICE, JUICE, WATER, SODA, SODA, JUICE, COFFEE OR COFFEE OR SODA, TEA BY ORAL TEA BY ORAL COFFEE OR ROUTE ONCE ROUTE ONCE TEA BY DAILY and DAILY and ORAL ROUTE once a day once a day ONCE DAILY PRN PRN and once a day PRN pregabalin pregabalin No 1capsul BID pregabalin [facility] 150 mg 150 mg e(s) 150 mg Medical capsule capsule capsule Take 1 Take 1 Take 1 capsule capsule capsule twice a day twice a day twice a by oral by oral day by route for route for oral route 30 days. 30 days. for 30 days. Vitamin C Vitamin C No 1capsul Q1D Vitamin C [facility] 500 mg 500 mg e(s) 500 mg Medical capsule,ext capsule,ext capsule,ex ended ended tended release release release Take 1 Take 1 Take 1 capsule capsule capsule every day every day every day by oral by oral by oral route. route. route. zinc 50 mg zinc 50 mg No 1 Q1D zinc 50 mg [facility] tablet Take tablet Take tablet Medical 1 tablet 1 tablet Take 1 every day every day tablet by oral by oral every day route. route. by oral route. acetaminoph acetaminoph No 1capsul Q6H acetaminop [facility] en 500 mg en 500 mg e(s) hen 500 mg Medical capsule capsule capsule Take 1 Take 1 Take 1 capsule capsule capsule every 6 every 6 every 6 hours by hours by hours by oral route oral route oral route as needed. as needed. as needed. ammonium ammonium No ammonium [place] via lactate 12 lactate 12 lactate 12 Medical % lotion % lotion % lotion apply to apply to apply to bilateral bilateral bilateral feet twice feet twice feet twice a day a day a day aripiprazol aripiprazol No aripiprazo [facility] e 10 mg e 10 mg le 10 mg Medic al tablet TAKE tablet TAKE tablet 1 TABLET BY 1 TABLET BY TAKE 1 MOUTH EVERY MOUTH EVERY TABLET BY NIGHT AT NIGHT AT MOUTH BEDTIME BEDTIME EVERY NIGHT AT BEDTIME benztropine benztropine No benztropin [facility] 0.5 mg 0.5 mg e 0.5 mg Medical tablet TAKE tablet TAKE tablet 1 TABLET BY 1 TABLET BY TAKE 1 MOUTH TWICE MOUTH TWICE TABLET BY DAILY DAILY MOUTH TWICE DAILY bisacodyl bisacodyl No 1suppos Q1D bisacodyl [facility] 10 mg 10 mg itor(y/ 10 mg Medical rectal rectal ies) rectal suppository suppository suppositor Insert 1 Insert 1 y Insert 1 suppository suppository suppositor every day every day y every by rectal by rectal day by route as route as rectal needed. needed. route as needed. divalproex divalproex No divalproex [facility] 250 mg 250 mg 250 mg Medical tablet,alejandro tablet,alejandro tablet,del yed release yed release ayed TAKE 2 TAKE 2 release TABLET BY TABLET BY TAKE 2 MOUTH EVERY MOUTH EVERY TABLET BY MORNING AND MORNING AND MOUTH 1 EVERY 1 EVERY EVERY NIGHT AT NIGHT AT MORNING BEDTIME BEDTIME AND 1 EVERY NIGHT AT BEDTIME docusate docusate No 1capsul BID docusate [facility] sodium 100 sodium 100 e(s) sodium 100 Medical mg capsule mg capsule mg capsule Take 1 Take 1 Take 1 capsule capsule capsule twice a day twice a day twice a by oral by oral day by route. route. oral route. gabapentin gabapentin No 1capsul BID gabapentin [facility] 300 mg 300 mg e(s) 300 mg Medical capsule capsule capsule Take 1 Take 1 Take 1 capsule capsule capsule twice a day twice a day twice a by oral by oral day by route for route for oral route 30 days. 30 days. for 30 days. hydrocodone hydrocodone No 1 Q6H hydrocodon [facility] 5 5 e 5 Medical mg-acetamin mg-acetamin mg-acetami ophen 325 ophen 325 nophen 325 mg tablet mg tablet mg tablet Take 1 Take 1 Take 1 tablet tablet tablet every 6 every 6 every 6 hours by hours by hours by oral route oral route oral route for 30 for 30 for 30 days. days. days. lactulose lactulose No 20mL Q1D lactulose [facility] 10 gram/15 10 gram/15 10 gram/15 Medical mL oral mL oral mL oral solution solution solution Take 20 mL Take 20 mL Take 20 mL every day every day every day by oral by oral by oral route as route as route as needed for needed for needed for 15 days. 15 days. 15 days. magnesium magnesium No 2 Q1D magnesium [facility] 250 mg (as 250 mg (as 250 mg (as Medical magnesium magnesium magnesium oxide) oxide) oxide) tablet Take tablet Take tablet 2 tablets 2 tablets Take 2 every day every day tablets by oral by oral every day route. route. by oral route. melatonin melatonin No 1capsul Q1D melatonin [facility] 10 mg 10 mg e(s) 10 mg Medical capsule capsule capsule Take 1 Take 1 Take 1 capsule capsule capsule every day every day every day by oral by oral by oral route at route at route at bedtime. bedtime. bedtime. metoprolol metoprolol No .5 BID metoprolol [facility] tartrate 25 tartrate 25 tartrate Medical mg tablet mg tablet 25 mg Take 0.5 Take 0.5 tablet tablets tablets Take 0.5 twice a day twice a day tablets by oral by oral twice a route for route for day by 30 days. 30 days. oral route for 30 days. Miralax 17 Miral[facility] 17 No Miralax 17 [facility] gram oral gram oral gram oral Medical powder powder powder packet TAKE packet TAKE packet 1 PACKET 1 PACKET TAKE 1 (17 GRAM) (17 GRAM) PACKET (17 MIXED WITH MIXED WITH GRAM) 8 OZ. 8 OZ. MIXED WITH WATER, WATER, 8 OZ. JUICE, JUICE, WATER, SODA, SODA, JUICE, COFFEE OR COFFEE OR SODA, TEA BY ORAL TEA BY ORAL COFFEE OR ROUTE ONCE ROUTE ONCE TEA BY DAILY and DAILY and ORAL ROUTE once a day once a day ONCE DAILY PRN PRN and once a day PRN pregabalin pregabalin No 1capsul BID pregabalin [facility] 150 mg 150 mg e(s) 150 mg Medical capsule capsule capsule Take 1 Take 1 Take 1 capsule capsule capsule twice a day twice a day twice a by oral by oral day by route for route for oral route 30 days. 30 days. for 30 days. Vitamin C Vitamin C No 1capsul Q1D Vitamin C [facility] 500 mg 500 mg e(s) 500 mg Medical capsule,ext capsule,ext capsule,ex ended ended tended release release release Take 1 Take 1 Take 1 capsule capsule capsule every day every day every day by oral by oral by oral route. route. route. zinc 50 mg zinc 50 mg No 1 Q1D zinc 50 mg [facility] tablet Take tablet Take tablet Medical 1 tablet 1 tablet Take 1 every day every day tablet by oral by oral every day route. route. by oral route. acetaminoph acetaminoph No 1capsul Q6H acetaminop [facility] en 500 mg en 500 mg e(s) hen 500 mg Medical capsule capsule capsule Take 1 Take 1 Take 1 capsule capsule capsule every 6 every 6 every 6 hours by hours by hours by oral route oral route oral route as needed. as needed. as needed. ammonium ammonium No ammonium [place] via lactate 12 lactate 12 lactate 12 Medical % lotion % lotion % lotion apply to apply to apply to bilateral bilateral bilateral feet twice feet twice feet twice a day a day a day aripiprazol aripiprazol No aripiprazo [facility] e 10 mg e 10 mg le 10 mg Medic al tablet TAKE tablet TAKE tablet 1 TABLET BY 1 TABLET BY TAKE 1 MOUTH EVERY MOUTH EVERY TABLET BY NIGHT AT NIGHT AT MOUTH BEDTIME BEDTIME EVERY NIGHT AT BEDTIME benztropine benztropine No benztropin [facility] 0.5 mg 0.5 mg e 0.5 mg Medical tablet TAKE tablet TAKE tablet 1 TABLET BY 1 TABLET BY TAKE 1 MOUTH TWICE MOUTH TWICE TABLET BY DAILY DAILY MOUTH TWICE DAILY bisacodyl bisacodyl No 1suppos Q1D bisacodyl [facility] 10 mg 10 mg itor(y/ 10 mg Medical rectal rectal ies) rectal suppository suppository suppositor Insert 1 Insert 1 y Insert 1 suppository suppository suppositor every day every day y every by rectal by rectal day by route as route as rectal needed. needed. route as needed. divalproex divalproex No divalproex [facility] 250 mg 250 mg 250 mg Medical tablet,alejandro tablet,alejandro tablet,del yed release yed release ayed TAKE 2 TAKE 2 release TABLET BY TABLET BY TAKE 2 MOUTH EVERY MOUTH EVERY TABLET BY MORNING AND MORNING AND MOUTH 1 EVERY 1 EVERY EVERY NIGHT AT NIGHT AT MORNING BEDTIME BEDTIME AND 1 EVERY NIGHT AT BEDTIME docusate docusate No 1capsul BID docusate [facility] sodium 100 sodium 100 e(s) sodium 100 Medical mg capsule mg capsule mg capsule Take 1 Take 1 Take 1 capsule capsule capsule twice a day twice a day twice a by oral by oral day by route. route. oral route. gabapentin gabapentin No 1capsul BID gabapentin [facility] 300 mg 300 mg e(s) 300 mg Medical capsule capsule capsule Take 1 Take 1 Take 1 capsule capsule capsule twice a day twice a day twice a by oral by oral day by route for route for oral route 30 days. 30 days. for 30 days. hydrocodone hydrocodone No 1 Q6H hydrocodon [facility] 5 5 e 5 Medical mg-acetamin mg-acetamin mg-acetami ophen 325 ophen 325 nophen 325 mg tablet mg tablet mg tablet Take 1 Take 1 Take 1 tablet tablet tablet every 6 every 6 every 6 hours by hours by hours by oral route oral route oral route for 30 for 30 for 30 days. days. days. lactulose lactulose No 20mL Q1D lactulose [facility] 10 gram/15 10 gram/15 10 gram/15 Medical mL oral mL oral mL oral solution solution solution Take 20 mL Take 20 mL Take 20 mL every day every day every day by oral by oral by oral route as route as route as needed for needed for needed for 15 days. 15 days. 15 days. magnesium magnesium No 2 Q1D magnesium [facility] 250 mg (as 250 mg (as 250 mg (as Medical magnesium magnesium magnesium oxide) oxide) oxide) tablet Take tablet Take tablet 2 tablets 2 tablets Take 2 every day every day tablets by oral by oral every day route. route. by oral route. melatonin melatonin No 1capsul Q1D melatonin [facility] 10 mg 10 mg e(s) 10 mg [facility] capsule capsule capsule Take 1 Take 1 Take 1 capsule capsule capsule every day every day every day by oral by oral by oral route at route at route at bedtime. bedtime. bedtime. metoprolol metoprolol No .5 BID metoprolol [facility] tartrate 25 tartrate 25 tartrate [facility] mg tablet mg tablet 25 mg Take 0.5 Take 0.5 tablet tablets tablets Take 0.5 twice a day twice a day tablets by oral by oral twice a route for route for day by 30 days. 30 days. oral route for 30 days. Miralax 17 Miralax 17 No Miralax 17 [facility] gram oral gram oral gram oral Medical powder powder powder packet TAKE packet TAKE packet 1 PACKET 1 PACKET TAKE 1 (17 GRAM) (17 GRAM) PACKET (17 MIXED WITH MIXED WITH GRAM) 8 OZ. 8 OZ. MIXED WITH WATER, WATER, 8 OZ. JUICE, JUICE, WATER, SODA, SODA, JUICE, COFFEE OR COFFEE OR SODA, TEA BY ORAL TEA BY ORAL COFFEE OR ROUTE ONCE ROUTE ONCE TEA BY DAILY and DAILY and ORAL ROUTE once a day once a day ONCE DAILY PRN PRN and once a day PRN pregabalin pregabalin No 1capsul BID pregabalin [facility] 150 mg 150 mg e(s) 150 mg [facility] capsule capsule capsule Take 1 Take 1 Take 1 capsule capsule capsule twice a day twice a day twice a by oral by oral day by route for route for oral route 30 days. 30 days. for 30 days. Vitamin C Vitamin C No 1capsul Q1D Vitamin C [facility] 500 mg 500 mg e(s) 500 mg [facility] capsule,ext capsule,ext capsule,ex ended ended tended release release release Take 1 Take 1 Take 1 capsule capsule capsule every day every day every day by oral by oral by oral route. route. route. zinc 50 mg zinc 50 mg No 1 Q1D zinc 50 mg [facility] tablet Take tablet Take tablet Medical 1 tablet 1 tablet Take 1 every day every day tablet by oral by oral every day route. route. by oral route. acetaminoph acetaminoph No 1capsul Q6H acetaminop [facility] en 500 mg en 500 mg e(s) hen 500 mg [facility] capsule capsule capsule Take 1 Take 1 Take 1 capsule capsule capsule every 6 every 6 every 6 hours by hours by hours by oral route oral route oral route as needed. as needed. as needed. ammonium ammonium No ammonium [facility] via lactate 12 lactate 12 lactate 12 Medical % lotion % lotion % lotion apply to apply to apply to bilateral bilateral bilateral feet twice feet twice feet twice a day a day a day aripiprazol aripiprazol No aripiprazo [facility] e 10 mg e 10 mg le 10 mg [facility] al tablet TAKE tablet TAKE tablet 1 TABLET BY 1 TABLET BY TAKE 1 MOUTH EVERY MOUTH EVERY TABLET BY NIGHT AT NIGHT AT MOUTH BEDTIME BEDTIME EVERY NIGHT AT BEDTIME benztropine benztropine No benztropin [facility] 0.5 mg 0.5 mg e 0.5 mg [facility] tablet TAKE tablet TAKE tablet 1 TABLET BY 1 TABLET BY TAKE 1 MOUTH TWICE MOUTH TWICE TABLET BY DAILY DAILY MOUTH TWICE DAILY bisacodyl bisacodyl No 1suppos Q1D bisacodyl [facility] 10 mg 10 mg itor(y/ 10 mg Medical rectal rectal ies) rectal suppository suppository suppositor Insert 1 Insert 1 y Insert 1 suppository suppository suppositor every day every day y every by rectal by rectal day by route as route as rectal needed. needed. route as needed. divalproex divalproex No divalproex [facility] 250 mg 250 mg 250 mg [facility] tablet,alejandro tablet,alejandro tablet,del yed release yed release ayed TAKE 2 TAKE 2 release TABLET BY TABLET BY TAKE 2 MOUTH EVERY MOUTH EVERY TABLET BY MORNING AND MORNING AND MOUTH 1 EVERY 1 EVERY EVERY NIGHT AT NIGHT AT MORNING BEDTIME BEDTIME AND 1 EVERY NIGHT AT BEDTIME docusate docusate No 1capsul BID docusate [facility] sodium 100 sodium 100 e(s) sodium 100 [facility] mg capsule mg capsule mg capsule Take 1 Take 1 Take 1 capsule capsule capsule twice a day twice a day twice a by oral by oral day by route. route. oral route. gabapentin gabapentin No 1capsul BID gabapentin [facility] 300 mg 300 mg e(s) 300 mg [facility] capsule capsule capsule Take 1 Take 1 Take 1 capsule capsule capsule twice a day twice a day twice a by oral by oral day by route for route for oral route 30 days. 30 days. for 30 days. hydrocodone hydrocodone No 1 Q6H hydrocodon [facility] 5 5 e 5 [facility] mg-acetamin mg-acetamin mg-acetami ophen 325 ophen 325 nophen 325 mg tablet mg tablet mg tablet Take 1 Take 1 Take 1 tablet tablet tablet every 6 every 6 every 6 hours by hours by hours by oral route oral route oral route as needed as needed as needed for 14 for 14 for 14 days. days. days. lactulose lactulose No 20mL Q1D lactulose [facility] 10 gram/15 10 gram/15 10 gram/15 Medical mL oral mL oral mL oral solution solution solution Take 20 mL Take 20 mL Take 20 mL every day every day every day by oral by oral by oral route as route as route as needed for needed for needed for 15 days. 15 days. 15 days. magnesium magnesium No 2 Q1D magnesium [facility] 250 mg (as 250 mg (as 250 mg (as Medical magnesium magnesium magnesium oxide) oxide) oxide) tablet Take tablet Take tablet 2 tablets 2 tablets Take 2 every day every day tablets by oral by oral every day route. route. by oral route. melatonin melatonin No 1capsul Q1D melatonin [facility] 10 mg 10 mg e(s) 10 mg [facility] capsule capsule capsule Take 1 Take 1 Take 1 capsule capsule capsule every day every day every day by oral by oral by oral route at route at route at bedtime. bedtime. bedtime. metoprolol metoprolol No .5 BID metoprolol [facility] tartrate 25 tartrate 25 tartrate [facility] mg tablet mg tablet 25 mg Take 0.5 Take 0.5 tablet tablets tablets Take 0.5 twice a day twice a day tablets by oral by oral twice a route for route for day by 30 days. 30 days. oral route for 30 days. Miralax 17 Miralax 17 No Miralax 17 [facility] gram oral gram oral gram oral Medical powder powder powder packet TAKE packet TAKE packet 1 PACKET 1 PACKET TAKE 1 (17 GRAM) (17 GRAM) PACKET (17 MIXED WITH MIXED WITH GRAM) 8 OZ. 8 OZ. MIXED WITH WATER, WATER, 8 OZ. JUICE, JUICE, WATER, SODA, SODA, JUICE, COFFEE OR COFFEE OR SODA, TEA BY ORAL TEA BY ORAL COFFEE OR ROUTE ONCE ROUTE ONCE TEA BY DAILY and DAILY and ORAL ROUTE once a day once a day ONCE DAILY PRN PRN and once a day PRN pregabalin pregabalin No 1capsul BID pregabalin [facility] 150 mg 150 mg e(s) 150 mg [facility] capsule capsule capsule Take 1 Take 1 Take 1 capsule capsule capsule twice a day twice a day twice a by oral by oral day by route for route for oral route 30 days. 30 days. for 30 days. Vitamin C Vitamin C No 1capsul Q1D Vitamin C [facility] 500 mg 500 mg e(s) 500 mg [facility] capsule,ext capsule,ext capsule,ex ended ended tended release release release Take 1 Take 1 Take 1 capsule capsule capsule every day every day every day by oral by oral by oral route. route. route. zinc 50 mg zinc 50 mg No 1 Q1D zinc 50 mg [facility] tablet Take tablet Take tablet Medical 1 tablet 1 tablet Take 1 every day every day tablet by oral by oral every day route. route. by oral route. acetaminoph acetaminoph No 1capsul Q6H acetaminop [facility] en 500 mg en 500 mg e(s) hen 500 mg [facility] capsule capsule capsule Take 1 Take 1 Take 1 capsule capsule capsule every 6 every 6 every 6 hours by hours by hours by oral route oral route oral route as needed. as needed. as needed. ammonium ammonium No ammonium [facility] via lactate 12 lactate 12 lactate 12 Medical % lotion % lotion % lotion apply to apply to apply to bilateral bilateral bilateral feet twice feet twice feet twice a day a day a day aripiprazol aripiprazol No aripiprazo [facility] e 10 mg e 10 mg le 10 mg [facility] al tablet TAKE tablet TAKE tablet 1 TABLET BY 1 TABLET BY TAKE 1 MOUTH EVERY MOUTH EVERY TABLET BY NIGHT AT NIGHT AT MOUTH BEDTIME BEDTIME EVERY NIGHT AT BEDTIME benztropine benztropine No benztropin [facility] 0.5 mg 0.5 mg e 0.5 mg [facility] tablet TAKE tablet TAKE tablet 1 TABLET BY 1 TABLET BY TAKE 1 MOUTH TWICE MOUTH TWICE TABLET BY DAILY DAILY MOUTH TWICE DAILY bisacodyl bisacodyl No 1suppos Q1D bisacodyl [facility] 10 mg 10 mg itor(y/ 10 mg Medical rectal rectal ies) rectal suppository suppository suppositor Insert 1 Insert 1 y Insert 1 suppository suppository suppositor every day every day y every by rectal by rectal day by route as route as rectal needed. needed. route as needed. divalproex divalproex No divalproex [facility] 250 mg 250 mg 250 mg [facility] tablet,alejandro tablet,alejandro tablet,del yed release yed release ayed TAKE 2 TAKE 2 release TABLET BY TABLET BY TAKE 2 MOUTH EVERY MOUTH EVERY TABLET BY MORNING AND MORNING AND MOUTH 1 EVERY 1 EVERY EVERY NIGHT AT NIGHT AT MORNING BEDTIME BEDTIME AND 1 EVERY NIGHT AT BEDTIME docusate docusate No 1capsul BID docusate [facility] sodium 100 sodium 100 e(s) sodium 100 Medical mg capsule mg capsule mg capsule Take 1 Take 1 Take 1 capsule capsule capsule twice a day twice a day twice a by oral by oral day by route. route. oral route. ergocalcife ergocalcife No 1capsul Q1W ergocalcif [facility] rol rol e(s) [facility] (vitamin (vitamin (vitamin D2) 1,250 D2) 1,250 D2) 1,250 mcg (50,000 mcg (50,000 mcg unit) unit) (50,000 capsule capsule unit) Take 1 Take 1 capsule capsule capsule Take 1 every week every week capsule by oral by oral every week route. route. by oral route. gabapentin gabapentin No 1capsul BID gabapentin [facility] 300 mg 300 mg e(s) 300 mg [facility] capsule capsule capsule Take 1 Take 1 Take 1 capsule capsule capsule twice a day twice a day twice a by oral by oral day by route for route for oral route 30 days. 30 days. for 30 days. hydrocodone hydrocodone No 1 Q6H hydrocodon [facility] 5 5 e 5 [facility] mg-acetamin mg-acetamin mg-acetami ophen 325 ophen 325 nophen 325 mg tablet mg tablet mg tablet Take 1 Take 1 Take 1 tablet tablet tablet every 6 every 6 every 6 hours by hours by hours by oral route oral route oral route as needed as needed as needed for 30 for 30 for 30 days. days. days. lactulose lactulose No 20mL Q1D lactulose [facility] 10 gram/15 10 gram/15 10 gram/15 [facility] mL oral mL oral mL oral solution solution solution Take 20 mL Take 20 mL Take 20 mL every day every day every day by oral by oral by oral route as route as route as needed for needed for needed for 15 days. 15 days. 15 days. magnesium magnesium No 2 Q1D magnesium [facility] 250 mg (as 250 mg (as 250 mg (as [facility] magnesium magnesium magnesium oxide) oxide) oxide) tablet Take tablet Take tablet 2 tablets 2 tablets Take 2 every day every day tablets by oral by oral every day route. route. by oral route. melatonin melatonin No 1capsul Q1D melatonin [facility] 10 mg 10 mg e(s) 10 mg [facility] capsule capsule capsule Take 1 Take 1 Take 1 capsule capsule capsule every day every day every day by oral by oral by oral route at route at route at bedtime. bedtime. bedtime. metoprolol metoprolol No .5 BID metoprolol [facility] tartrate 25 tartrate 25 tartrate [facility] mg tablet mg tablet 25 mg Take 0.5 Take 0.5 tablet tablets tablets Take 0.5 twice a day twice a day tablets by oral by oral twice a route for route for day by 30 days. 30 days. oral route for 30 days. Miralax 17 M[facility] 17 No Miralax 17 [facility] gram oral gram oral gram oral Medical powder powder powder packet TAKE packet TAKE packet 1 PACKET 1 PACKET TAKE 1 (17 GRAM) (17 GRAM) PACKET (17 MIXED WITH MIXED WITH GRAM) 8 OZ. 8 OZ. MIXED WITH WATER, WATER, 8 OZ. JUICE, JUICE, WATER, SODA, SODA, JUICE, COFFEE OR COFFEE OR SODA, TEA BY ORAL TEA BY ORAL COFFEE OR ROUTE ONCE ROUTE ONCE TEA BY DAILY and DAILY and ORAL ROUTE once a day once a day ONCE DAILY PRN PRN and once a day PRN pregabalin pregabalin No 1capsul BID pregabalin [facility] 150 mg 150 mg e(s) 150 mg [facility] capsule capsule capsule Take 1 Take 1 Take 1 capsule capsule capsule twice a day twice a day twice a by oral by oral day by route for route for oral route 30 days. 30 days. for 30 days. Vitamin C Vitamin C No 1capsul Q1D Vitamin C [facility] 500 mg 500 mg e(s) 500 mg [facility] capsule,ext capsule,ext capsule,ex ended ended tended release release release Take 1 Take 1 Take 1 capsule capsule capsule every day every day every day by oral by oral by oral route. route. route. zinc 50 mg zinc 50 mg No 1 Q1D zinc 50 mg [facility] tablet Take tablet Take tablet Medical 1 tablet 1 tablet Take 1 every day every day tablet by oral by oral every day route. route. by oral route. acetaminoph acetaminoph No 1capsul Q6H acetaminop [facility] en 500 mg en 500 mg e(s) hen 500 mg [facility] capsule capsule capsule Take 1 Take 1 Take 1 capsule capsule capsule every 6 every 6 every 6 hours by hours by hours by oral route oral route oral route as needed. as needed. as needed. ammonium ammonium No ammonium [facility] via lactate 12 lactate 12 lactate 12 Medical % lotion % lotion % lotion apply to apply to apply to bilateral bilateral bilateral feet twice feet twice feet twice a day a day a day aripiprazol aripiprazol No aripiprazo [facility] e 10 mg e 10 mg le 10 mg [facility] al tablet TAKE tablet TAKE tablet 1 TABLET BY 1 TABLET BY TAKE 1 MOUTH EVERY MOUTH EVERY TABLET BY NIGHT AT NIGHT AT MOUTH BEDTIME BEDTIME EVERY NIGHT AT BEDTIME benztropine benztropine No benztropin [facility] 0.5 mg 0.5 mg e 0.5 mg [facility] tablet TAKE tablet TAKE tablet 1 TABLET BY 1 TABLET BY TAKE 1 MOUTH TWICE MOUTH TWICE TABLET BY DAILY DAILY MOUTH TWICE DAILY bisacodyl bisacodyl No 1suppos Q1D bisacodyl [facility] 10 mg 10 mg itor(y/ 10 mg [facility] rectal rectal ies) rectal suppository suppository suppositor Insert 1 Insert 1 y Insert 1 suppository suppository suppositor every day every day y every by rectal by rectal day by route as route as rectal needed. needed. route as needed. divalproex divalproex No divalproex [facility] 250 mg 250 mg 250 mg [facility] tablet,alejandro tablet,alejandro tablet,del yed release yed release ayed TAKE 2 TAKE 2 release TABLET BY TABLET BY TAKE 2 MOUTH EVERY MOUTH EVERY TABLET BY MORNING AND MORNING AND MOUTH 1 EVERY 1 EVERY EVERY NIGHT AT NIGHT AT MORNING BEDTIME BEDTIME AND 1 EVERY NIGHT AT BEDTIME docusate docusate No 1capsul BID docusate [facility] sodium 100 sodium 100 e(s) sodium 100 Medical mg capsule mg capsule mg capsule Take 1 Take 1 Take 1 capsule capsule capsule twice a day twice a day twice a by oral by oral day by route. route. oral route. donepezil donepezil No donepezil [facility] 10 mg 10 mg 10 mg [facility] tablet tablet tablet ergocalcife ergocalcife No ergocalcif [facility] rol rol [facility] (vitamin (vitamin (vitamin D2) 1,250 D2) 1,250 D2) 1,250 mcg (50,000 mcg (50,000 mcg unit) unit) (50,000 capsule capsule unit) Take 1 Take 1 capsule capsule capsule Take 1 every week every week capsule by oral by oral every week route. route. by oral route. gabapentin gabapentin No gabapentin [facility] 300 mg 300 mg 300 mg [facility] capsule capsule capsule Take 1 Take 1 Take 1 capsule capsule capsule twice a day twice a day twice a by oral by oral day by route for route for oral route 30 days. 30 days. for 30 days. hydrocodone hydrocodone No hydrocodon [facility] 5 5 e 5 [facility] mg-acetamin mg-acetamin mg-acetami ophen 325 ophen 325 nophen 325 mg tablet mg tablet mg tablet Take 1 Take 1 Take 1 tablet tablet tablet every 6 every 6 every 6 hours by hours by hours by oral route oral route oral route as needed as needed as needed for 30 for 30 for 30 days. days. days. lactulose lactulose No 20mL Q1D lactulose [facility] 10 gram/15 10 gram/15 10 gram/15 Medical mL oral mL oral mL oral solution solution solution Take 20 mL Take 20 mL Take 20 mL every day every day every day by oral by oral by oral route as route as route as needed for needed for needed for 15 days. 15 days. 15 days. magnesium magnesium No 2 Q1D magnesium [facility] 250 mg (as 250 mg (as 250 mg (as Medical magnesium magnesium magnesium oxide) oxide) oxide) tablet Take tablet Take tablet 2 tablets 2 tablets Take 2 every day every day tablets by oral by oral every day route. route. by oral route. melatonin melatonin No 1capsul Q1D melatonin [facility] 10 mg 10 mg e(s) 10 mg [facility] capsule capsule capsule Take 1 Take 1 Take 1 capsule capsule capsule every day every day every day by oral by oral by oral route at route at route at bedtime. bedtime. bedtime. metoprolol metoprolol No .5 BID metoprolol [facility] tartrate 25 tartrate 25 tartrate [facility] mg tablet mg tablet 25 mg Take 0.5 Take 0.5 tablet tablets tablets Take 0.5 twice a day twice a day tablets by oral by oral twice a route for route for day by 30 days. 30 days. oral route for 30 days. Miralax 17 [facility] 17 No Miralax 17 [facility] gram oral gram oral gram oral Medical powder powder powder packet TAKE packet TAKE packet 1 PACKET 1 PACKET TAKE 1 (17 GRAM) (17 GRAM) PACKET (17 MIXED WITH MIXED WITH GRAM) 8 OZ. 8 OZ. MIXED WITH WATER, WATER, 8 OZ. JUICE, JUICE, WATER, SODA, SODA, JUICE, COFFEE OR COFFEE OR SODA, TEA BY ORAL TEA BY ORAL COFFEE OR ROUTE ONCE ROUTE ONCE TEA BY DAILY and DAILY and ORAL ROUTE once a day once a day ONCE DAILY PRN PRN and once a day PRN pregabalin pregabalin No 1capsul BID pregabalin [facility] 150 mg 150 mg e(s) 150 mg [facility] capsule capsule capsule Take 1 Take 1 Take 1 capsule capsule capsule twice a day twice a day twice a by oral by oral day by route for route for oral route 30 days. 30 days. for 30 days. sulfamethox sulfamethox No sulfametho [facility] azole 800 azole 800 xazole 800 Medical mg-trimetho mg-trimetho mg-trimeth prim 160 mg prim 160 mg oprim 160 tablet tablet mg tablet Vitamin C Vitamin C No 1capsul Q1D Vitamin C [facility] 500 mg 500 mg e(s) 500 mg [facility] capsule,ext capsule,ext capsule,ex ended ended tended release release release Take 1 Take 1 Take 1 capsule capsule capsule every day every day every day by oral by oral by oral route. route. route. zinc 50 mg zinc 50 mg No 1 Q1D zinc 50 mg [facility] tablet Take tablet Take tablet [facility] 1 tablet 1 tablet Take 1 every day every day tablet by oral by oral every day route. route. by oral route. acetaminoph acetaminoph No 1capsul Q6H acetaminop [facility] en 500 mg en 500 mg e(s) hen 500 mg [facility] capsule capsule capsule Take 1 Take 1 Take 1 capsule capsule capsule every 6 every 6 every 6 hours by hours by hours by oral route oral route oral route as needed. as needed. as needed. ammonium ammonium No ammonium [facility] via lactate 12 lactate 12 lactate 12 Medical % lotion % lotion % lotion apply to apply to apply to bilateral bilateral bilateral feet twice feet twice feet twice a day a day a day aripiprazol aripiprazol No aripiprazo [facility] e 10 mg e 10 mg le 10 mg [facility] al tablet TAKE tablet TAKE tablet 1 TABLET BY 1 TABLET BY TAKE 1 MOUTH EVERY MOUTH EVERY TABLET BY NIGHT AT NIGHT AT MOUTH BEDTIME BEDTIME EVERY NIGHT AT BEDTIME benztropine benztropine No benztropin [facility] 0.5 mg 0.5 mg e 0.5 mg [facility] tablet TAKE tablet TAKE tablet 1 TABLET BY 1 TABLET BY TAKE 1 MOUTH TWICE MOUTH TWICE TABLET BY DAILY DAILY MOUTH TWICE DAILY bisacodyl bisacodyl No 1suppos Q1D bisacodyl [facility] 10 mg 10 mg itor(y/ 10 mg [facility] rectal rectal ies) rectal suppository suppository suppositor Insert 1 Insert 1 y Insert 1 suppository suppository suppositor every day every day y every by rectal by rectal day by route as route as rectal needed. needed. route as needed. docusate docusate No 1capsul BID docusate [facility] sodium 100 sodium 100 e(s) sodium 100 Medical mg capsule mg capsule mg capsule Take 1 Take 1 Take 1 capsule capsule capsule twice a day twice a day twice a by oral by oral day by route. route. oral route. donepezil donepezil No donepezil [facility] 10 mg 10 mg 10 mg [facility] tablet tablet tablet ergocalcife ergocalcife No ergocalcif [facility] rol rol [facility] (vitamin (vitamin (vitamin D2) 1,250 D2) 1,250 D2) 1,250 mcg (50,000 mcg (50,000 mcg unit) unit) (50,000 capsule capsule unit) Take 1 Take 1 capsule capsule capsule Take 1 every week every week capsule by oral by oral every week route. route. by oral route. gabapentin gabapentin No gabapentin [facility] 300 mg 300 mg 300 mg [facility] capsule capsule capsule Take 1 Take 1 Take 1 capsule capsule capsule twice a day twice a day twice a by oral by oral day by route for route for oral route 30 days. 30 days. for 30 days. hydrocodone hydrocodone No hydrocodon [facility] 5 5 e 5 [facility] mg-acetamin mg-acetamin mg-acetami ophen 325 ophen 325 nophen 325 mg tablet mg tablet mg tablet Take 1 Take 1 Take 1 tablet tablet tablet every 6 every 6 every 6 hours by hours by hours by oral route oral route oral route as needed as needed as needed for 30 for 30 for 30 days. days. days. lactulose lactulose No 20mL Q1D lactulose [facility] 10 gram/15 10 gram/15 10 gram/15 Medical mL oral mL oral mL oral solution solution solution Take 20 mL Take 20 mL Take 20 mL every day every day every day by oral by oral by oral route as route as route as needed for needed for needed for 15 days. 15 days. 15 days. magnesium magnesium No 2 Q1D magnesium [facility] 250 mg (as 250 mg (as 250 mg (as [facility] magnesium magnesium magnesium oxide) oxide) oxide) tablet Take tablet Take tablet 2 tablets 2 tablets Take 2 every day every day tablets by oral by oral every day route. route. by oral route. melatonin melatonin No 1capsul Q1D melatonin [facility] 10 mg 10 mg e(s) 10 mg [facility] capsule capsule capsule Take 1 Take 1 Take 1 capsule capsule capsule every day every day every day by oral by oral by oral route at route at route at bedtime. bedtime. bedtime. metoprolol metoprolol No .5 BID metoprolol [facility] tartrate 25 tartrate 25 tartrate [facility] mg tablet mg tablet 25 mg Take 0.5 Take 0.5 tablet tablets tablets Take 0.5 twice a day twice a day tablets by oral by oral twice a route for route for day by 30 days. 30 days. oral route for 30 days. Miralax 17 [facility] 17 No Miralax 17 [facility] gram oral gram oral gram oral Medical powder powder powder packet TAKE packet TAKE packet 1 PACKET 1 PACKET TAKE 1 (17 GRAM) (17 GRAM) PACKET (17 MIXED WITH MIXED WITH GRAM) 8 OZ. 8 OZ. MIXED WITH WATER, WATER, 8 OZ. JUICE, JUICE, WATER, SODA, SODA, JUICE, COFFEE OR COFFEE OR SODA, TEA BY ORAL TEA BY ORAL COFFEE OR ROUTE ONCE ROUTE ONCE TEA BY DAILY and DAILY and ORAL ROUTE once a day once a day ONCE DAILY PRN PRN and once a day PRN pregabalin pregabalin No 1capsul BID pregabalin [facility] 150 mg 150 mg e(s) 150 mg [facility] capsule capsule capsule Take 1 Take 1 Take 1 capsule capsule capsule twice a day twice a day twice a by oral by oral day by route for route for oral route 30 days. 30 days. for 30 days. sulfamethox sulfamethox No sulfametho [facility] azole 800 azole 800 xazole 800 Medical mg-trimetho mg-trimetho mg-trimeth prim 160 mg prim 160 mg oprim 160 tablet tablet mg tablet Vitamin C Vitamin C No 1capsul Q1D Vitamin C [facility] 500 mg 500 mg e(s) 500 mg [facility] capsule,ext capsule,ext capsule,ex ended ended tended release release release Take 1 Take 1 Take 1 capsule capsule capsule every day every day every day by oral by oral by oral route. route. route. zinc 50 mg zinc 50 mg No 1 Q1D zinc 50 mg [facility] tablet Take tablet Take tablet [facility] 1 tablet 1 tablet Take 1 every day every day tablet by oral by oral every day route. route. by oral route. acetaminoph acetaminoph No 1capsul Q6H acetaminop [facility] en 500 mg en 500 mg e(s) hen 500 mg [facility] capsule capsule capsule Take 1 Take 1 Take 1 capsule capsule capsule every 6 every 6 every 6 hours by hours by hours by oral route oral route oral route as needed. as needed. as needed. ammonium ammonium No ammonium [facility] via lactate 12 lactate 12 lactate 12 Medical % lotion % lotion % lotion apply to apply to apply to bilateral bilateral bilateral feet twice feet twice feet twice a day a day a day aripiprazol aripiprazol No aripiprazo [facility] e 10 mg e 10 mg le 10 mg [facility] al tablet TAKE tablet TAKE tablet 1 TABLET BY 1 TABLET BY TAKE 1 MOUTH EVERY MOUTH EVERY TABLET BY NIGHT AT NIGHT AT MOUTH BEDTIME BEDTIME EVERY NIGHT AT BEDTIME benztropine benztropine No benztropin [facility] 0.5 mg 0.5 mg e 0.5 mg [facility] tablet TAKE tablet TAKE tablet 1 TABLET BY 1 TABLET BY TAKE 1 MOUTH TWICE MOUTH TWICE TABLET BY DAILY DAILY MOUTH TWICE DAILY bisacodyl bisacodyl No 1suppos Q1D bisacodyl [facility] 10 mg 10 mg itor(y/ 10 mg [facility] rectal rectal ies) rectal suppository suppository suppositor Insert 1 Insert 1 y Insert 1 suppository suppository suppositor every day every day y every by rectal by rectal day by route as route as rectal needed. needed. route as needed. docusate docusate No 1capsul BID docusate [facility] sodium 100 sodium 100 e(s) sodium 100 Medical mg capsule mg capsule mg capsule Take 1 Take 1 Take 1 capsule capsule capsule twice a day twice a day twice a by oral by oral day by route. route. oral route. donepezil donepezil No donepezil [facility] 10 mg 10 mg 10 mg [facility] tablet tablet tablet ergocalcife ergocalcife No ergocalcif [facility] (vitamin (vitamin (vitamin D2) 1,250 D2) 1,250 D2) 1,250 mcg (50,000 mcg (50,000 mcg unit) unit) (50,000 capsule capsule unit) Take 1 Take 1 capsule capsule capsule Take 1 every week every week capsule by oral by oral every week route. route. by oral route. gabapentin gabapentin No gabapentin [facility] 300 mg 300 mg 300 mg [facility] capsule capsule capsule Take 1 Take 1 Take 1 capsule capsule capsule twice a day twice a day twice a by oral by oral day by route for route for oral route 30 days. 30 days. for 30 days. hydrocodone hydrocodone No hydrocodon [facility] 5 5 e 5 [facility] mg-acetamin mg-acetamin mg-acetami ophen 325 ophen 325 nophen 325 mg tablet mg tablet mg tablet Take 1 Take 1 Take 1 tablet tablet tablet every 6 every 6 every 6 hours by hours by hours by oral route oral route oral route as needed as needed as needed for 30 for 30 for 30 days. days. days. lactulose lactulose No 20mL Q1D lactulose [facility] 10 gram/15 10 gram/15 10 gram/15 [facility] mL oral mL oral mL oral solution solution solution Take 20 mL Take 20 mL Take 20 mL every day every day every day by oral by oral by oral route as route as route as needed for needed for needed for 15 days. 15 days. 15 days. magnesium magnesium No 2 Q1D magnesium [facility] 250 mg (as 250 mg (as 250 mg (as Medical magnesium magnesium magnesium oxide) oxide) oxide) tablet Take tablet Take tablet 2 tablets 2 tablets Take 2 every day every day tablets by oral by oral every day route. route. by oral route. melatonin melatonin No 1capsul Q1D melatonin [facility] 10 mg 10 mg e(s) 10 mg [facility] capsule capsule capsule Take 1 Take 1 Take 1 capsule capsule capsule every day every day every day by oral by oral by oral route at route at route at bedtime. bedtime. bedtime. metoprolol metoprolol No .5 BID metoprolol [facility] tartrate 25 tartrate 25 tartrate [facility] mg tablet mg tablet 25 mg Take 0.5 Take 0.5 tablet tablets tablets Take 0.5 twice a day twice a day tablets by oral by oral twice a route for route for day by 30 days. 30 days. oral route for 30 days. Miralax 17 Miralax 17 No Miralax 17 [facility] gram oral gram oral gram oral Medical powder powder powder packet TAKE packet TAKE packet 1 PACKET 1 PACKET TAKE 1 (17 GRAM) (17 GRAM) PACKET (17 MIXED WITH MIXED WITH GRAM) 8 OZ. 8 OZ. MIXED WITH WATER, WATER, 8 OZ. JUICE, JUICE, WATER, SODA, SODA, JUICE, COFFEE OR COFFEE OR SODA, TEA BY ORAL TEA BY ORAL COFFEE OR ROUTE ONCE ROUTE ONCE TEA BY DAILY and DAILY and ORAL ROUTE once a day once a day ONCE DAILY PRN PRN and once a day PRN pregabalin pregabalin No 1capsul BID pregabalin [facility] 150 mg 150 mg e(s) 150 mg [facility] capsule capsule capsule Take 1 Take 1 Take 1 capsule capsule capsule twice a day twice a day twice a by oral by oral day by route for route for oral route 30 days. 30 days. for 30 days. sulfamethox sulfamethox No sulfametho [facility] azole 800 azole 800 xazole 800 Medical mg-trimetho mg-trimetho mg-trimeth prim 160 mg prim 160 mg oprim 160 tablet tablet mg tablet Vitamin C Vitamin C No 1capsul Q1D Vitamin C [facility] 500 mg 500 mg e(s) 500 mg [facility] capsule,ext capsule,ext capsule,ex ended ended tended release release release Take 1 Take 1 Take 1 capsule capsule capsule every day every day every day by oral by oral by oral route. route. route. zinc 50 mg zinc 50 mg No 1 Q1D zinc 50 mg [facility] tablet Take tablet Take tablet Medical 1 tablet 1 tablet Take 1 every day every day tablet by oral by oral every day route. route. by oral route. acetaminoph acetaminoph No 1capsul Q6H acetaminop [facility] en 500 mg en 500 mg e(s) hen 500 mg [facility] capsule capsule capsule Take 1 Take 1 Take 1 capsule capsule capsule every 6 every 6 every 6 hours by hours by hours by oral route oral route oral route as needed. as needed. as needed. ammonium ammonium No ammonium [facility] via lactate 12 lactate 12 lactate 12 Medical % lotion % lotion % lotion apply to apply to apply to bilateral bilateral bilateral feet twice feet twice feet twice a day a day a day aripiprazol aripiprazol No aripiprazo [facility] e 10 mg e 10 mg le 10 mg Medic al tablet TAKE tablet TAKE tablet 1 TABLET BY 1 TABLET BY TAKE 1 MOUTH EVERY MOUTH EVERY TABLET BY NIGHT AT NIGHT AT MOUTH BEDTIME BEDTIME EVERY NIGHT AT BEDTIME benztropine benztropine No benztropin [facility] 0.5 mg 0.5 mg e 0.5 mg [facility] tablet TAKE tablet TAKE tablet 1 TABLET BY 1 TABLET BY TAKE 1 MOUTH TWICE MOUTH TWICE TABLET BY DAILY DAILY MOUTH TWICE DAILY bisacodyl bisacodyl No 1suppos Q1D bisacodyl [facility] 10 mg 10 mg itor(y/ 10 mg Medical rectal rectal ies) rectal suppository suppository suppositor Insert 1 Insert 1 y Insert 1 suppository suppository suppositor every day every day y every by rectal by rectal day by route as route as rectal needed. needed. route as needed. docusate docusate No 1capsul BID docusate [facility] sodium 100 sodium 100 e(s) sodium 100 [facility] mg capsule mg capsule mg capsule Take 1 Take 1 Take 1 capsule capsule capsule twice a day twice a day twice a by oral by oral day by route. route. oral route. donepezil donepezil No donepezil [facility] 10 mg 10 mg 10 mg [facility] tablet tablet tablet ergocalcife ergocalcife No ergocalcif [facility] (vitamin (vitamin (vitamin D2) 1,250 D2) 1,250 D2) 1,250 mcg (50,000 mcg (50,000 mcg unit) unit) (50,000 capsule capsule unit) Take 1 Take 1 capsule capsule capsule Take 1 every week every week capsule by oral by oral every week route. route. by oral route. gabapentin gabapentin No gabapentin [facility] 300 mg 300 mg 300 mg [facility] capsule capsule capsule Take 1 Take 1 Take 1 capsule capsule capsule twice a day twice a day twice a by oral by oral day by route for route for oral route 30 days. 30 days. for 30 days. hydrocodone hydrocodone No hydrocodon [facility] 5 5 e 5 [facility] mg-acetamin mg-acetamin mg-acetami ophen 325 ophen 325 nophen 325 mg tablet mg tablet mg tablet Take 1 Take 1 Take 1 tablet tablet tablet every 6 every 6 every 6 hours by hours by hours by oral route oral route oral route as needed as needed as needed for 30 for 30 for 30 days. days. days. lactulose lactulose No 20mL Q1D lactulose [facility] 10 gram/15 10 gram/15 10 gram/15 Medical mL oral mL oral mL oral solution solution solution Take 20 mL Take 20 mL Take 20 mL every day every day every day by oral by oral by oral route as route as route as needed for needed for needed for 15 days. 15 days. 15 days. magnesium magnesium No 2 Q1D magnesium [facility] 250 mg (as 250 mg (as 250 mg (as Medical magnesium magnesium magnesium oxide) oxide) oxide) tablet Take tablet Take tablet 2 tablets 2 tablets Take 2 every day every day tablets by oral by oral every day route. route. by oral route. melatonin melatonin No 1capsul Q1D melatonin [facility] 10 mg 10 mg e(s) 10 mg [facility] capsule capsule capsule Take 1 Take 1 Take 1 capsule capsule capsule every day every day every day by oral by oral by oral route at route at route at bedtime. bedtime. bedtime. metoprolol metoprolol No .5 BID metoprolol [facility] tartrate 25 tartrate 25 tartrate [facility] mg tablet mg tablet 25 mg Take 0.5 Take 0.5 tablet tablets tablets Take 0.5 twice a day twice a day tablets by oral by oral twice a route for route for day by 30 days. 30 days. oral route for 30 days. Miralax 17 Miral[facility] 17 No Miralax 17 [facility] gram oral gram oral gram oral Medical powder powder powder packet TAKE packet TAKE packet 1 PACKET 1 PACKET TAKE 1 (17 GRAM) (17 GRAM) PACKET (17 MIXED WITH MIXED WITH GRAM) 8 OZ. 8 OZ. MIXED WITH WATER, WATER, 8 OZ. JUICE, JUICE, WATER, SODA, SODA, JUICE, COFFEE OR COFFEE OR SODA, TEA BY ORAL TEA BY ORAL COFFEE OR ROUTE ONCE ROUTE ONCE TEA BY DAILY and DAILY and ORAL ROUTE once a day once a day ONCE DAILY PRN PRN and once a day PRN pregabalin pregabalin No 1capsul BID pregabalin [facility] 150 mg 150 mg e(s) 150 mg [facility] capsule capsule capsule Take 1 Take 1 Take 1 capsule capsule capsule twice a day twice a day twice a by oral by oral day by route for route for oral route 30 days. 30 days. for 30 days. Vitamin C Vitamin C No 1capsul Q1D Vitamin C [facility] 500 mg 500 mg e(s) 500 mg [facility] capsule,ext capsule,ext capsule,ex ended ended tended release release release Take 1 Take 1 Take 1 capsule capsule capsule every day every day every day by oral by oral by oral route. route. route. zinc 50 mg zinc 50 mg No 1 Q1D zinc 50 mg [facility] tablet Take tablet Take tablet Medical 1 tablet 1 tablet Take 1 every day every day tablet by oral by oral every day route. route. by oral route. acetaminoph acetaminoph No 1capsul Q6H acetaminop [facility] en 500 mg en 500 mg e(s) hen 500 mg [facility] capsule capsule capsule Take 1 Take 1 Take 1 capsule capsule capsule every 6 every 6 every 6 hours by hours by hours by oral route oral route oral route as needed. as needed. as needed. ammonium ammonium No ammonium [facility] via lactate 12 lactate 12 lactate 12 Medical % lotion % lotion % lotion apply to apply to apply to bilateral bilateral bilateral feet twice feet twice feet twice a day a day a day aripiprazol aripiprazol No aripiprazo [facility] e 10 mg e 10 mg le 10 mg [facility] al tablet TAKE tablet TAKE tablet 1 TABLET BY 1 TABLET BY TAKE 1 MOUTH EVERY MOUTH EVERY TABLET BY NIGHT AT NIGHT AT MOUTH BEDTIME BEDTIME EVERY NIGHT AT BEDTIME benztropine benztropine No benztropin [facility] 0.5 mg 0.5 mg e 0.5 mg [facility] tablet TAKE tablet TAKE tablet 1 TABLET BY 1 TABLET BY TAKE 1 MOUTH TWICE MOUTH TWICE TABLET BY DAILY DAILY MOUTH TWICE DAILY bisacodyl bisacodyl No 1suppos Q1D bisacodyl [facility] 10 mg 10 mg itor(y/ 10 mg Medical rectal rectal ies) rectal suppository suppository suppositor Insert 1 Insert 1 y Insert 1 suppository suppository suppositor every day every day y every by rectal by rectal day by route as route as rectal needed. needed. route as needed. cyclobenzap cyclobenzap No cyclobenza [facility] rine 5 mg rine 5 mg aisha 5 mg [facility] tablet tablet tablet docusate docusate No 1capsul BID docusate [facility] sodium 100 sodium 100 e(s) sodium 100 [facility] mg capsule mg capsule mg capsule Take 1 Take 1 Take 1 capsule capsule capsule twice a day twice a day twice a by oral by oral day by route. route. oral route. donepezil donepezil No donepezil [facility] 10 mg 10 mg 10 mg [facility] tablet tablet tablet ergocalcife ergocalcife No ergocalcif [facility] (vitamin (vitamin (vitamin D2) 1,250 D2) 1,250 D2) 1,250 mcg (50,000 mcg (50,000 mcg unit) unit) (50,000 capsule capsule unit) Take 1 Take 1 capsule capsule capsule Take 1 every week every week capsule by oral by oral every week route. route. by oral route. fosfomycin fosfomycin No fosfomycin [facility] tromethamin tromethamin tromethami [facility] e 3 gram e 3 gram ne 3 gram oral packet oral packet oral packet gabapentin gabapentin No gabapentin [facility] 300 mg 300 mg 300 mg [facility] capsule capsule capsule Take 1 Take 1 Take 1 capsule capsule capsule twice a day twice a day twice a by oral by oral day by route for route for oral route 30 days. 30 days. for 30 days. hydrocodone hydrocodone No hydrocodon [facility] 5 5 e 5 [facility] mg-acetamin mg-acetamin mg-acetami ophen 325 ophen 325 nophen 325 mg tablet mg tablet mg tablet Take 1 Take 1 Take 1 tablet tablet tablet every 6 every 6 every 6 hours by hours by hours by oral route oral route oral route as needed as needed as needed for 30 for 30 for 30 days. days. days. lactulose lactulose No 20mL Q1D lactulose [facility] 10 gram/15 10 gram/15 10 gram/15 Medical mL oral mL oral mL oral solution solution solution Take 20 mL Take 20 mL Take 20 mL every day every day every day by oral by oral by oral route as route as route as needed for needed for needed for 15 days. 15 days. 15 days. levofloxaci levofloxaci No levofloxac [facility] n 500 mg n 500 mg in 500 mg Me dical tablet tablet tablet magnesium magnesium No 2 Q1D magnesium [facility] 250 mg (as 250 mg (as 250 mg (as Medical magnesium magnesium magnesium oxide) oxide) oxide) tablet Take tablet Take tablet 2 tablets 2 tablets Take 2 every day every day tablets by oral by oral every day route. route. by oral route. melatonin melatonin No 1capsul Q1D melatonin [facility] 10 mg 10 mg e(s) 10 mg [facility] capsule capsule capsule Take 1 Take 1 Take 1 capsule capsule capsule every day every day every day by oral by oral by oral route at route at route at bedtime. bedtime. bedtime. metoprolol metoprolol No metoprolol [facility] tartrate 25 tartrate 25 tartrate [facility] mg tablet mg tablet 25 mg Take 0.5 Take 0.5 tablet tablets tablets Take 0.5 twice a day twice a day tablets by oral by oral twice a route for route for day by 30 days. 30 days. oral route for 30 days. Miralax 17 Miral[facility] 17 No Miralax 17 [facility] gram oral gram oral gram oral Medical powder powder powder packet TAKE packet TAKE packet 1 PACKET 1 PACKET TAKE 1 (17 GRAM) (17 GRAM) PACKET (17 MIXED WITH MIXED WITH GRAM) 8 OZ. 8 OZ. MIXED WITH WATER, WATER, 8 OZ. JUICE, JUICE, WATER, SODA, SODA, JUICE, COFFEE OR COFFEE OR SODA, TEA BY ORAL TEA BY ORAL COFFEE OR ROUTE ONCE ROUTE ONCE TEA BY DAILY and DAILY and ORAL ROUTE once a day once a day ONCE DAILY PRN PRN and once a day PRN Nystop Nystop No Nystop [facility] 100,000 100,000 100,000 Medica l unit/gram unit/gram unit/gram topical topical topical powder powder powder pregabalin pregabalin No pregabalin [facility] 150 mg 150 mg 150 mg [facility] capsule capsule capsule Take 1 Take 1 Take 1 capsule capsule capsule twice a day twice a day twice a by oral by oral day by route for route for oral route 30 days. 30 days. for 30 days. tamsulosin tamsulosin No tamsulosin [facility] 0.4 mg 0.4 mg 0.4 mg [facility] capsule capsule capsule Vitamin C Vitamin C No 1capsul Q1D Vitamin C [facility] 500 mg 500 mg e(s) 500 mg [facility] capsule,ext capsule,ext capsule,ex ended ended tended release release release Take 1 Take 1 Take 1 capsule capsule capsule every day every day every day by oral by oral by oral route. route. route. zinc 50 mg zinc 50 mg No 1 Q1D zinc 50 mg [facility] tablet Take tablet Take tablet Medical 1 tablet 1 tablet Take 1 every day every day tablet by oral by oral every day route. route. by oral route. acetaminoph acetaminoph No 1capsul Q6H acetaminop [facility] en 500 mg en 500 mg e(s) hen 500 mg [facility] capsule capsule capsule Take 1 Take 1 Take 1 capsule capsule capsule every 6 every 6 every 6 hours by hours by hours by oral route oral route oral route as needed. as needed. as needed. ammonium ammonium No ammonium [facility] via lactate 12 lactate 12 lactate 12 Medical % lotion % lotion % lotion apply to apply to apply to bilateral bilateral bilateral feet twice feet twice feet twice a day a day a day aripiprazol aripiprazol No aripiprazo [facility] e 10 mg e 10 mg le 10 mg Medic al tablet TAKE tablet TAKE tablet 1 TABLET BY 1 TABLET BY TAKE 1 MOUTH EVERY MOUTH EVERY TABLET BY NIGHT AT NIGHT AT MOUTH BEDTIME BEDTIME EVERY NIGHT AT BEDTIME benztropine benztropine No benztropin [facility] 0.5 mg 0.5 mg e 0.5 mg [facility] tablet TAKE tablet TAKE tablet 1 TABLET BY 1 TABLET BY TAKE 1 MOUTH TWICE MOUTH TWICE TABLET BY DAILY DAILY MOUTH TWICE DAILY bisacodyl bisacodyl No 1suppos Q1D bisacodyl [facility] 10 mg 10 mg itor(y/ 10 mg Medical rectal rectal ies) rectal suppository suppository suppositor Insert 1 Insert 1 y Insert 1 suppository suppository suppositor every day every day y every by rectal by rectal day by route as route as rectal needed. needed. route as needed. cyclobenzap cyclobenzap No cyclobenza [facility] rine 5 mg rine 5 mg aisha 5 mg [facility] tablet tablet tablet docusate docusate No 1capsul BID docusate [facility] sodium 100 sodium 100 e(s) sodium 100 [facility] mg capsule mg capsule mg capsule Take 1 Take 1 Take 1 capsule capsule capsule twice a day twice a day twice a by oral by oral day by route. route. oral route. donepezil donepezil No donepezil [facility] 10 mg 10 mg 10 mg [facility] tablet tablet tablet ergocalcife ergocalcife No ergocalcif [facility] (vitamin (vitamin (vitamin D2) 1,250 D2) 1,250 D2) 1,250 mcg (50,000 mcg (50,000 mcg unit) unit) (50,000 capsule capsule unit) Take 1 Take 1 capsule capsule capsule Take 1 every week every week capsule by oral by oral every week route. route. by oral route. fosfomycin fosfomycin No fosfomycin [facility] tromethamin tromethamin tromethami [facility] e 3 gram e 3 gram ne 3 gram oral packet oral packet oral packet gabapentin gabapentin No gabapentin [facility] 300 mg 300 mg 300 mg [facility] capsule capsule capsule Take 1 Take 1 Take 1 capsule capsule capsule twice a day twice a day twice a by oral by oral day by route for route for oral route 30 days. 30 days. for 30 days. hydrocodone hydrocodone No 1 Q6H hydrocodon [facility] 5 5 e 5 [facility] mg-acetamin mg-acetamin mg-acetami ophen 325 ophen 325 nophen 325 mg tablet mg tablet mg tablet Take 1 Take 1 Take 1 tablet tablet tablet every 6 every 6 every 6 hours by hours by hours by oral route oral route oral route as needed as needed as needed for 30 for 30 for 30 days. days. days. lactulose lactulose No 20mL Q1D lactulose [facility] 10 gram/15 10 gram/15 10 gram/15 Medical mL oral mL oral mL oral solution solution solution Take 20 mL Take 20 mL Take 20 mL every day every day every day by oral by oral by oral route as route as route as needed for needed for needed for 15 days. 15 days. 15 days. levofloxaci levofloxaci No levofloxac [facility] n 500 mg n 500 mg in 500 mg Me dical tablet tablet tablet magnesium magnesium No 2 Q1D magnesium [facility] 250 mg (as 250 mg (as 250 mg (as Medical magnesium magnesium magnesium oxide) oxide) oxide) tablet Take tablet Take tablet 2 tablets 2 tablets Take 2 every day every day tablets by oral by oral every day route. route. by oral route. melatonin melatonin No 1capsul Q1D melatonin [facility] 10 mg 10 mg e(s) 10 mg [facility] capsule capsule capsule Take 1 Take 1 Take 1 capsule capsule capsule every day every day every day by oral by oral by oral route at route at route at bedtime. bedtime. bedtime. metoprolol metoprolol No metoprolol [facility] tartrate 25 tartrate 25 tartrate [facility] mg tablet mg tablet 25 mg Take 0.5 Take 0.5 tablet tablets tablets Take 0.5 twice a day twice a day tablets by oral by oral twice a route for route for day by 30 days. 30 days. oral route for 30 days. Miralax 17 M[facility] 17 No Miralax 17 [facility] gram oral gram oral gram oral Medical powder powder powder packet TAKE packet TAKE packet 1 PACKET 1 PACKET TAKE 1 (17 GRAM) (17 GRAM) PACKET (17 MIXED WITH MIXED WITH GRAM) 8 OZ. 8 OZ. MIXED WITH WATER, WATER, 8 OZ. JUICE, JUICE, WATER, SODA, SODA, JUICE, COFFEE OR COFFEE OR SODA, TEA BY ORAL TEA BY ORAL COFFEE OR ROUTE ONCE ROUTE ONCE TEA BY DAILY and DAILY and ORAL ROUTE once a day once a day ONCE DAILY PRN PRN and once a day PRN Nystop Nystop No Nystop [facility] 100,000 100,000 100,000 Medica l unit/gram unit/gram unit/gram topical topical topical powder powder powder pregabalin pregabalin No pregabalin [facility] 150 mg 150 mg 150 mg [facility] capsule capsule capsule Take 1 Take 1 Take 1 capsule capsule capsule twice a day twice a day twice a by oral by oral day by route for route for oral route 30 days. 30 days. for 30 days. tamsulosin tamsulosin No tamsulosin [facility] 0.4 mg 0.4 mg 0.4 mg [facility] capsule capsule capsule Vitamin C Vitamin C No 1capsul Q1D Vitamin C [facility] 500 mg 500 mg e(s) 500 mg [facility] capsule,ext capsule,ext capsule,ex ended ended tended release release release Take 1 Take 1 Take 1 capsule capsule capsule every day every day every day by oral by oral by oral route. route. route. zinc 50 mg zinc 50 mg No 1 Q1D zinc 50 mg [facility] tablet Take tablet Take tablet [facility] 1 tablet 1 tablet Take 1 every day every day tablet by oral by oral every day route. route. by oral route. acetaminoph acetaminoph No 1capsul Q6H acetaminop [facility] en 500 mg en 500 mg e(s) hen 500 mg [facility] capsule capsule capsule Take 1 Take 1 Take 1 capsule capsule capsule every 6 every 6 every 6 hours by hours by hours by oral route oral route oral route as needed. as needed. as needed. ammonium ammonium No ammonium [facility] via lactate 12 lactate 12 lactate 12 Medical % lotion % lotion % lotion apply to apply to apply to bilateral bilateral bilateral feet twice feet twice feet twice a day a day a day aripiprazol aripiprazol No aripiprazo [facility] e 10 mg e 10 mg le 10 mg Medic al tablet TAKE tablet TAKE tablet 1 TABLET BY 1 TABLET BY TAKE 1 MOUTH EVERY MOUTH EVERY TABLET BY NIGHT AT NIGHT AT MOUTH BEDTIME BEDTIME EVERY NIGHT AT BEDTIME benztropine benztropine No benztropin [facility] 0.5 mg 0.5 mg e 0.5 mg [facility] tablet TAKE tablet TAKE tablet 1 TABLET BY 1 TABLET BY TAKE 1 MOUTH TWICE MOUTH TWICE TABLET BY DAILY DAILY MOUTH TWICE DAILY bisacodyl bisacodyl No 1suppos Q1D bisacodyl [facility] 10 mg 10 mg itor(y/ 10 mg Medical rectal rectal ies) rectal suppository suppository suppositor Insert 1 Insert 1 y Insert 1 suppository suppository suppositor every day every day y every by rectal by rectal day by route as route as rectal needed. needed. route as needed. cyclobenzap cyclobenzap No cyclobenza [facility] rine 5 mg rine 5 mg aisha 5 mg [facility] tablet tablet tablet docusate docusate No 1capsul BID docusate [facility] sodium 100 sodium 100 e(s) sodium 100 Medical mg capsule mg capsule mg capsule Take 1 Take 1 Take 1 capsule capsule capsule twice a day twice a day twice a by oral by oral day by route. route. oral route. donepezil donepezil No donepezil [facility] 10 mg 10 mg 10 mg [facility] tablet tablet tablet ergocalcife ergocalcife No ergocalcif [facility] (vitamin (vitamin (vitamin D2) 1,250 D2) 1,250 D2) 1,250 mcg (50,000 mcg (50,000 mcg unit) unit) (50,000 capsule capsule unit) Take 1 Take 1 capsule capsule capsule Take 1 every week every week capsule by oral by oral every week route. route. by oral route. gabapentin gabapentin No gabapentin [facility] 300 mg 300 mg 300 mg [facility] capsule capsule capsule Take 1 Take 1 Take 1 capsule capsule capsule twice a day twice a day twice a by oral by oral day by route for route for oral route 30 days. 30 days. for 30 days. hydrocodone hydrocodone No hydrocodon [facility] 5 5 e 5 [facility] mg-acetamin mg-acetamin mg-acetami ophen 325 ophen 325 nophen 325 mg tablet mg tablet mg tablet Take 1 Take 1 Take 1 tablet tablet tablet every 6 every 6 every 6 hours by hours by hours by oral route oral route oral route as needed as needed as needed for 30 for 30 for 30 days. days. days. lactulose lactulose No 20mL Q1D lactulose [facility] 10 gram/15 10 gram/15 10 gram/15 Medical mL oral mL oral mL oral solution solution solution Take 20 mL Take 20 mL Take 20 mL every day every day every day by oral by oral by oral route as route as route as needed for needed for needed for 15 days. 15 days. 15 days. magnesium magnesium No 2 Q1D magnesium [facility] 250 mg (as 250 mg (as 250 mg (as Medical magnesium magnesium magnesium oxide) oxide) oxide) tablet Take tablet Take tablet 2 tablets 2 tablets Take 2 every day every day tablets by oral by oral every day route. route. by oral route. melatonin melatonin No 1capsul Q1D melatonin [facility] 10 mg 10 mg e(s) 10 mg [facility] capsule capsule capsule Take 1 Take 1 Take 1 capsule capsule capsule every day every day every day by oral by oral by oral route at route at route at bedtime. bedtime. bedtime. metoprolol metoprolol No metoprolol [facility] tartrate 25 tartrate 25 tartrate [facility] mg tablet mg tablet 25 mg Take 0.5 Take 0.5 tablet tablets tablets Take 0.5 twice a day twice a day tablets by oral by oral twice a route for route for day by 30 days. 30 days. oral route for 30 days. Miralax 17 M[facility] 17 No Miralax 17 [facility] gram oral gram oral gram oral Medical powder powder powder packet TAKE packet TAKE packet 1 PACKET 1 PACKET TAKE 1 (17 GRAM) (17 GRAM) PACKET (17 MIXED WITH MIXED WITH GRAM) 8 OZ. 8 OZ. MIXED WITH WATER, WATER, 8 OZ. JUICE, JUICE, WATER, SODA, SODA, JUICE, COFFEE OR COFFEE OR SODA, TEA BY ORAL TEA BY ORAL COFFEE OR ROUTE ONCE ROUTE ONCE TEA BY DAILY and DAILY and ORAL ROUTE once a day once a day ONCE DAILY PRN PRN and once a day PRN ondansetron ondansetron No ondansetro [facility] HCl 4 mg HCl 4 mg n HCl 4 mg M edical tablet tablet tablet pregabalin pregabalin No pregabalin [facility] 150 mg 150 mg 150 mg [facility] capsule capsule capsule Take 1 Take 1 Take 1 capsule capsule capsule twice a day twice a day twice a by oral by oral day by route for route for oral route 30 days. 30 days. for 30 days. tamsulosin tamsulosin No tamsulosin [facility] 0.4 mg 0.4 mg 0.4 mg [facility] capsule capsule capsule Vitamin C Vitamin C No 1capsul Q1D Vitamin C [facility] 500 mg 500 mg e(s) 500 mg [facility] capsule,ext capsule,ext capsule,ex ended ended tended release release release Take 1 Take 1 Take 1 capsule capsule capsule every day every day every day by oral by oral by oral route. route. route. zinc 50 mg zinc 50 mg No 1 Q1D zinc 50 mg [facility] tablet Take tablet Take tablet [facility] 1 tablet 1 tablet Take 1 every day every day tablet by oral by oral every day route. route. by oral route. acetaminoph acetaminoph No 1capsul Q6H acetaminop [facility] en 500 mg en 500 mg e(s) hen 500 mg [facility] capsule capsule capsule Take 1 Take 1 Take 1 capsule capsule capsule every 6 every 6 every 6 hours by hours by hours by oral route oral route oral route as needed. as needed. as needed. ammonium ammonium No ammonium [facility] via lactate 12 lactate 12 lactate 12 Medical % lotion % lotion % lotion apply to apply to apply to bilateral bilateral bilateral feet twice feet twice feet twice a day a day a day aripiprazol aripiprazol No aripiprazo [facility] e 10 mg e 10 mg le 10 mg [facility] al tablet TAKE tablet TAKE tablet 1 TABLET BY 1 TABLET BY TAKE 1 MOUTH EVERY MOUTH EVERY TABLET BY NIGHT AT NIGHT AT MOUTH BEDTIME BEDTIME EVERY NIGHT AT BEDTIME benztropine benztropine No benztropin [facility] 0.5 mg 0.5 mg e 0.5 mg [facility] tablet TAKE tablet TAKE tablet 1 TABLET BY 1 TABLET BY TAKE 1 MOUTH TWICE MOUTH TWICE TABLET BY DAILY DAILY MOUTH TWICE DAILY bisacodyl bisacodyl No 1suppos Q1D bisacodyl [facility] 10 mg 10 mg itor(y/ 10 mg Medical rectal rectal ies) rectal suppository suppository suppositor Insert 1 Insert 1 y Insert 1 suppository suppository suppositor every day every day y every by rectal by rectal day by route as route as rectal needed. needed. route as needed. cyclobenzap cyclobenzap No cyclobenza [facility] rine 5 mg rine 5 mg aisha 5 mg [facility] tablet tablet tablet docusate docusate No 1capsul BID docusate [facility] sodium 100 sodium 100 e(s) sodium 100 [facility] mg capsule mg capsule mg capsule Take 1 Take 1 Take 1 capsule capsule capsule twice a day twice a day twice a by oral by oral day by route. route. oral route. donepezil donepezil No donepezil [facility] 10 mg 10 mg 10 mg [facility] tablet tablet tablet ergocalcife ergocalcife No ergocalcif [facility] (vitamin (vitamin (vitamin D2) 1,250 D2) 1,250 D2) 1,250 mcg (50,000 mcg (50,000 mcg unit) unit) (50,000 capsule capsule unit) Take 1 Take 1 capsule capsule capsule Take 1 every week every week capsule by oral by oral every week route. route. by oral route. gabapentin gabapentin No gabapentin [facility] 300 mg 300 mg 300 mg [facility] capsule capsule capsule Take 1 Take 1 Take 1 capsule capsule capsule twice a day twice a day twice a by oral by oral day by route for route for oral route 30 days. 30 days. for 30 days. hydrocodone hydrocodone No hydrocodon [facility] 5 5 e 5 [facility] mg-acetamin mg-acetamin mg-acetami ophen 325 ophen 325 nophen 325 mg tablet mg tablet mg tablet Take 1 Take 1 Take 1 tablet tablet tablet every 6 every 6 every 6 hours by hours by hours by oral route oral route oral route as needed as needed as needed for 30 for 30 for 30 days. days. days. lactulose lactulose No 20mL Q1D lactulose [facility] 10 gram/15 10 gram/15 10 gram/15 Medical mL oral mL oral mL oral solution solution solution Take 20 mL Take 20 mL Take 20 mL every day every day every day by oral by oral by oral route as route as route as needed for needed for needed for 15 days. 15 days. 15 days. magnesium magnesium No 2 Q1D magnesium [facility] 250 mg (as 250 mg (as 250 mg (as Medical magnesium magnesium magnesium oxide) oxide) oxide) tablet Take tablet Take tablet 2 tablets 2 tablets Take 2 every day every day tablets by oral by oral every day route. route. by oral route. melatonin melatonin No 1capsul Q1D melatonin [facility] 10 mg 10 mg e(s) 10 mg [facility] capsule capsule capsule Take 1 Take 1 Take 1 capsule capsule capsule every day every day every day by oral by oral by oral route at route at route at bedtime. bedtime. bedtime. metoprolol metoprolol No metoprolol [facility] tartrate 25 tartrate 25 tartrate [facility] mg tablet mg tablet 25 mg Take 0.5 Take 0.5 tablet tablets tablets Take 0.5 twice a day twice a day tablets by oral by oral twice a route for route for day by 30 days. 30 days. oral route for 30 days. Miralax 17 Miralax 17 No Miralax 17 [facility] gram oral gram oral gram oral [facility] powder powder powder packet TAKE packet TAKE packet 1 PACKET 1 PACKET TAKE 1 (17 GRAM) (17 GRAM) PACKET (17 MIXED WITH MIXED WITH GRAM) 8 OZ. 8 OZ. MIXED WITH WATER, WATER, 8 OZ. JUICE, JUICE, WATER, SODA, SODA, JUICE, COFFEE OR COFFEE OR SODA, TEA BY ORAL TEA BY ORAL COFFEE OR ROUTE ONCE ROUTE ONCE TEA BY DAILY and DAILY and ORAL ROUTE once a day once a day ONCE DAILY PRN PRN and once a day PRN ondansetron ondansetron No ondansetro [facility] HCl 4 mg HCl 4 mg n HCl 4 mg M ed[facility] tablet tablet tablet pregabalin pregabalin No 1capsul BID pregabalin [facility] 150 mg 150 mg e(s) 150 mg [facility] capsule capsule capsule Take 1 Take 1 Take 1 capsule capsule capsule twice a day twice a day twice a by oral by oral day by route for route for oral route 30 days. 30 days. for 30 days. tamsulosin tamsulosin No tamsulosin [facility] 0.4 mg 0.4 mg 0.4 mg [facility] capsule capsule capsule Vitamin C Vitamin C No 1capsul Q1D Vitamin C [facility] 500 mg 500 mg e(s) 500 mg [facility] capsule,ext capsule,ext capsule,ex ended ended tended release release release Take 1 Take 1 Take 1 capsule capsule capsule every day every day every day by oral by oral by oral route. route. route. zinc 50 mg zinc 50 mg No 1 Q1D zinc 50 mg [facility] tablet Take tablet Take tablet [facility] 1 tablet 1 tablet Take 1 every day every day tablet by oral by oral every day route. route. by oral route. acetaminoph acetaminoph No 1capsul Q6H acetaminop [facility] en 500 mg en 500 mg e(s) hen 500 mg [facility] capsule capsule capsule Take 1 Take 1 Take 1 capsule capsule capsule every 6 every 6 every 6 hours by hours by hours by oral route oral route oral route as needed. as needed. as needed. ammonium ammonium No ammonium [facility] via lactate 12 lactate 12 lactate 12 Medical % lotion % lotion % lotion apply to apply to apply to bilateral bilateral bilateral feet twice feet twice feet twice a day a day a day aripiprazol aripiprazol No aripiprazo [facility] e 10 mg e 10 mg le 10 mg Medic al tablet TAKE tablet TAKE tablet 1 TABLET BY 1 TABLET BY TAKE 1 MOUTH EVERY MOUTH EVERY TABLET BY NIGHT AT NIGHT AT MOUTH BEDTIME BEDTIME EVERY NIGHT AT BEDTIME benztropine benztropine No benztropin [facility] 0.5 mg 0.5 mg e 0.5 mg [facility] tablet TAKE tablet TAKE tablet 1 TABLET BY 1 TABLET BY TAKE 1 MOUTH TWICE MOUTH TWICE TABLET BY DAILY DAILY MOUTH TWICE DAILY bisacodyl bisacodyl No 1suppos Q1D bisacodyl [facility] 10 mg 10 mg itor(y/ 10 mg Medical rectal rectal ies) rectal suppository suppository suppositor Insert 1 Insert 1 y Insert 1 suppository suppository suppositor every day every day y every by rectal by rectal day by route as route as rectal needed. needed. route as needed. cyclobenzap cyclobenzap No cyclobenza [facility] rine 5 mg rine 5 mg aisha 5 mg [facility] tablet tablet tablet docusate docusate No 1capsul BID docusate [facility] sodium 100 sodium 100 e(s) sodium 100 Medical mg capsule mg capsule mg capsule Take 1 Take 1 Take 1 capsule capsule capsule twice a day twice a day twice a by oral by oral day by route. route. oral route. donepezil donepezil No donepezil [facility] 10 mg 10 mg 10 mg [facility] tablet tablet tablet ergocalcife ergocalcife No ergocalcif [facility] (vitamin (vitamin (vitamin D2) 1,250 D2) 1,250 D2) 1,250 mcg (50,000 mcg (50,000 mcg unit) unit) (50,000 capsule capsule unit) Take 1 Take 1 capsule capsule capsule Take 1 every week every week capsule by oral by oral every week route. route. by oral route. gabapentin gabapentin No gabapentin [facility] 300 mg 300 mg 300 mg [facility] capsule capsule capsule Take 1 Take 1 Take 1 capsule capsule capsule twice a day twice a day twice a by oral by oral day by route for route for oral route 30 days. 30 days. for 30 days. hydrocodone hydrocodone No hydrocodon [facility] 5 5 e 5 [facility] mg-acetamin mg-acetamin mg-acetami ophen 325 ophen 325 nophen 325 mg tablet mg tablet mg tablet Take 1 Take 1 Take 1 tablet tablet tablet every 6 every 6 every 6 hours by hours by hours by oral route oral route oral route as needed as needed as needed for 30 for 30 for 30 days. days. days. lactulose lactulose No 20mL Q1D lactulose [facility] 10 gram/15 10 gram/15 10 gram/15 Medical mL oral mL oral mL oral solution solution solution Take 20 mL Take 20 mL Take 20 mL every day every day every day by oral by oral by oral route as route as route as needed for needed for needed for 15 days. 15 days. 15 days. magnesium magnesium No 2 Q1D magnesium [facility] 250 mg (as 250 mg (as 250 mg (as Medical magnesium magnesium magnesium oxide) oxide) oxide) tablet Take tablet Take tablet 2 tablets 2 tablets Take 2 every day every day tablets by oral by oral every day route. route. by oral route. melatonin melatonin No 1capsul Q1D melatonin [facility] 10 mg 10 mg e(s) 10 mg [facility] capsule capsule capsule Take 1 Take 1 Take 1 capsule capsule capsule every day every day every day by oral by oral by oral route at route at route at bedtime. bedtime. bedtime. metoprolol metoprolol No metoprolol [facility] tartrate 25 tartrate 25 tartrate [facility] mg tablet mg tablet 25 mg Take 0.5 Take 0.5 tablet tablets tablets Take 0.5 twice a day twice a day tablets by oral by oral twice a route for route for day by 30 days. 30 days. oral route for 30 days. Miralax 17 Miralax 17 No Miralax 17 [facility] gram oral gram oral gram oral [facility] powder powder powder packet TAKE packet TAKE packet 1 PACKET 1 PACKET TAKE 1 (17 GRAM) (17 GRAM) PACKET (17 MIXED WITH MIXED WITH GRAM) 8 OZ. 8 OZ. MIXED WITH WATER, WATER, 8 OZ. JUICE, JUICE, WATER, SODA, SODA, JUICE, COFFEE OR COFFEE OR SODA, TEA BY ORAL TEA BY ORAL COFFEE OR ROUTE ONCE ROUTE ONCE TEA BY DAILY and DAILY and ORAL ROUTE once a day once a day ONCE DAILY PRN PRN and once a day PRN ondansetron ondansetron No ondansetro [facility] HCl 4 mg HCl 4 mg n HCl 4 mg M ed[facility] tablet tablet tablet pregabalin pregabalin No 1capsul BID pregabalin [facility] 150 mg 150 mg e(s) 150 mg [facility] capsule capsule capsule Take 1 Take 1 Take 1 capsule capsule capsule twice a day twice a day twice a by oral by oral day by route for route for oral route 30 days. 30 days. for 30 days. tamsulosin tamsulosin No tamsulosin [facility] 0.4 mg 0.4 mg 0.4 mg [facility] capsule capsule capsule Vitamin C Vitamin C No 1capsul Q1D Vitamin C [facility] 500 mg 500 mg e(s) 500 mg [facility] capsule,ext capsule,ext capsule,ex ended ended tended release release release Take 1 Take 1 Take 1 capsule capsule capsule every day every day every day by oral by oral by oral route. route. route. zinc 50 mg zinc 50 mg No 1 Q1D zinc 50 mg [facility] tablet Take tablet Take tablet [facility] 1 tablet 1 tablet Take 1 every day every day tablet by oral by oral every day route. route. by oral route. acetaminoph acetaminoph No 1capsul Q6H acetaminop [facility] en 500 mg en 500 mg e(s) hen 500 mg [facility] capsule capsule capsule Take 1 Take 1 Take 1 capsule capsule capsule every 6 every 6 every 6 hours by hours by hours by oral route oral route oral route as needed. as needed. as needed. ammonium ammonium No ammonium [facility] via lactate 12 lactate 12 lactate 12 Medical % lotion % lotion % lotion apply to apply to apply to bilateral bilateral bilateral feet twice feet twice feet twice a day a day a day aripiprazol aripiprazol No aripiprazo [facility] e 10 mg e 10 mg le 10 mg Medic al tablet TAKE tablet TAKE tablet 1 TABLET BY 1 TABLET BY TAKE 1 MOUTH EVERY MOUTH EVERY TABLET BY NIGHT AT NIGHT AT MOUTH BEDTIME BEDTIME EVERY NIGHT AT BEDTIME benztropine benztropine No benztropin [facility] 0.5 mg 0.5 mg e 0.5 mg [facility] tablet TAKE tablet TAKE tablet 1 TABLET BY 1 TABLET BY TAKE 1 MOUTH TWICE MOUTH TWICE TABLET BY DAILY DAILY MOUTH TWICE DAILY bisacodyl bisacodyl No 1suppos Q1D bisacodyl [facility] 10 mg 10 mg itor(y/ 10 mg Medical rectal rectal ies) rectal suppository suppository suppositor Insert 1 Insert 1 y Insert 1 suppository suppository suppositor every day every day y every by rectal by rectal day by route as route as rectal needed. needed. route as needed. cyclobenzap cyclobenzap No cyclobenza [facility] rine 5 mg rine 5 mg aisha 5 mg [facility] tablet tablet tablet docusate docusate No 1capsul BID docusate [facility] sodium 100 sodium 100 e(s) sodium 100 Medical mg capsule mg capsule mg capsule Take 1 Take 1 Take 1 capsule capsule capsule twice a day twice a day twice a by oral by oral day by route. route. oral route. donepezil donepezil No donepezil [facility] 10 mg 10 mg 10 mg [facility] tablet tablet tablet ergocalcife ergocalcife No ergocalcif [facility] (vitamin (vitamin (vitamin D2) 1,250 D2) 1,250 D2) 1,250 mcg (50,000 mcg (50,000 mcg unit) unit) (50,000 capsule capsule unit) Take 1 Take 1 capsule capsule capsule Take 1 every week every week capsule by oral by oral every week route. route. by oral route. gabapentin gabapentin No gabapentin [facility] 300 mg 300 mg 300 mg [facility] capsule capsule capsule Take 1 Take 1 Take 1 capsule capsule capsule twice a day twice a day twice a by oral by oral day by route for route for oral route 30 days. 30 days. for 30 days. hydrocodone hydrocodone No hydrocodon [facility] 5 5 e 5 [facility] mg-acetamin mg-acetamin mg-acetami ophen 325 ophen 325 nophen 325 mg tablet mg tablet mg tablet Take 1 Take 1 Take 1 tablet tablet tablet every 6 every 6 every 6 hours by hours by hours by oral route oral route oral route as needed as needed as needed for 30 for 30 for 30 days. days. days. lactulose lactulose No 20mL Q1D lactulose [facility] 10 gram/15 10 gram/15 10 gram/15 Medical mL oral mL oral mL oral solution solution solution Take 20 mL Take 20 mL Take 20 mL every day every day every day by oral by oral by oral route as route as route as needed for needed for needed for 15 days. 15 days. 15 days. magnesium magnesium No 2 Q1D magnesium [facility] 250 mg (as 250 mg (as 250 mg (as Medical magnesium magnesium magnesium oxide) oxide) oxide) tablet Take tablet Take tablet 2 tablets 2 tablets Take 2 every day every day tablets by oral by oral every day route. route. by oral route. melatonin melatonin No 1capsul Q1D melatonin [facility] 10 mg 10 mg e(s) 10 mg [facility] capsule capsule capsule Take 1 Take 1 Take 1 capsule capsule capsule every day every day every day by oral by oral by oral route at route at route at bedtime. bedtime. bedtime. metoprolol metoprolol No metoprolol [facility] tartrate 25 tartrate 25 tartrate [facility] mg tablet mg tablet 25 mg Take 0.5 Take 0.5 tablet tablets tablets Take 0.5 twice a day twice a day tablets by oral by oral twice a route for route for day by 30 days. 30 days. oral route for 30 days. Miralax 17 M[facility] 17 No Miralax 17 [facility] gram oral gram oral gram oral [facility] powder powder powder packet TAKE packet TAKE packet 1 PACKET 1 PACKET TAKE 1 (17 GRAM) (17 GRAM) PACKET (17 MIXED WITH MIXED WITH GRAM) 8 OZ. 8 OZ. MIXED WITH WATER, WATER, 8 OZ. JUICE, JUICE, WATER, SODA, SODA, JUICE, COFFEE OR COFFEE OR SODA, TEA BY ORAL TEA BY ORAL COFFEE OR ROUTE ONCE ROUTE ONCE TEA BY DAILY and DAILY and ORAL ROUTE once a day once a day ONCE DAILY PRN PRN and once a day PRN ondansetron ondansetron No ondansetro [facility] HCl 4 mg HCl 4 mg n HCl 4 mg M ed[facility] tablet tablet tablet pregabalin pregabalin No 1capsul BID pregabalin [facility] 150 mg 150 mg e(s) 150 mg [facility] capsule capsule capsule Take 1 Take 1 Take 1 capsule capsule capsule twice a day twice a day twice a by oral by oral day by route for route for oral route 30 days. 30 days. for 30 days. tamsulosin tamsulosin No tamsulosin [facility] 0.4 mg 0.4 mg 0.4 mg [facility] capsule capsule capsule Vitamin C Vitamin C No 1capsul Q1D Vitamin C [facility] 500 mg 500 mg e(s) 500 mg [facility] capsule,ext capsule,ext capsule,ex ended ended tended release release release Take 1 Take 1 Take 1 capsule capsule capsule every day every day every day by oral by oral by oral route. route. route. zinc 50 mg zinc 50 mg No 1 Q1D zinc 50 mg [facility] tablet Take tablet Take tablet [facility] 1 tablet 1 tablet Take 1 every day every day tablet by oral by oral every day route. route. by oral route. acetaminoph acetaminoph No 1capsul Q6H acetaminop [facility] en 500 mg en 500 mg e(s) hen 500 mg [facility] capsule capsule capsule Take 1 Take 1 Take 1 capsule capsule capsule every 6 every 6 every 6 hours by hours by hours by oral route oral route oral route as needed. as needed. as needed. ammonium ammonium No ammonium [facility] via lactate 12 lactate 12 lactate 12 Medical % lotion % lotion % lotion apply to apply to apply to bilateral bilateral bilateral feet twice feet twice feet twice a day a day a day aripiprazol aripiprazol No aripiprazo [facility] e 10 mg e 10 mg le 10 mg [facility] al tablet TAKE tablet TAKE tablet 1 TABLET BY 1 TABLET BY TAKE 1 MOUTH EVERY MOUTH EVERY TABLET BY NIGHT AT NIGHT AT MOUTH BEDTIME BEDTIME EVERY NIGHT AT BEDTIME benztropine benztropine No benztropin [facility] 0.5 mg 0.5 mg e 0.5 mg [facility] tablet TAKE tablet TAKE tablet 1 TABLET BY 1 TABLET BY TAKE 1 MOUTH TWICE MOUTH TWICE TABLET BY DAILY DAILY MOUTH TWICE DAILY bisacodyl bisacodyl No 1suppos Q1D bisacodyl [facility] 10 mg 10 mg itor(y/ 10 mg [facility] rectal rectal ies) rectal suppository suppository suppositor Insert 1 Insert 1 y Insert 1 suppository suppository suppositor every day every day y every by rectal by rectal day by route as route as rectal needed. needed. route as needed. cyclobenzap cyclobenzap No cyclobenza [facility] rine 5 mg rine 5 mg aisha 5 mg [facility] tablet tablet tablet docusate docusate No 1capsul BID docusate [facility] sodium 100 sodium 100 e(s) sodium 100 Medical mg capsule mg capsule mg capsule Take 1 Take 1 Take 1 capsule capsule capsule twice a day twice a day twice a by oral by oral day by route. route. oral route. donepezil donepezil No donepezil [facility] 10 mg 10 mg 10 mg [facility] tablet tablet tablet ergocalcife ergocalcife No ergocalcif [facility] (vitamin (vitamin (vitamin D2) 1,250 D2) 1,250 D2) 1,250 mcg (50,000 mcg (50,000 mcg unit) unit) (50,000 capsule capsule unit) Take 1 Take 1 capsule capsule capsule Take 1 every week every week capsule by oral by oral every week route. route. by oral route. gabapentin gabapentin No gabapentin [facility] 300 mg 300 mg 300 mg [facility] capsule capsule capsule Take 1 Take 1 Take 1 capsule capsule capsule twice a day twice a day twice a by oral by oral day by route for route for oral route 30 days. 30 days. for 30 days. hydrocodone hydrocodone No hydrocodon [facility] 5 5 e 5 [facility] mg-acetamin mg-acetamin mg-acetami ophen 325 ophen 325 nophen 325 mg tablet mg tablet mg tablet Take 1 Take 1 Take 1 tablet tablet tablet every 6 every 6 every 6 hours by hours by hours by oral route oral route oral route as needed as needed as needed for 30 for 30 for 30 days. days. days. lactulose lactulose No 20mL Q1D lactulose [facility] 10 gram/15 10 gram/15 10 gram/15 Medical mL oral mL oral mL oral solution solution solution Take 20 mL Take 20 mL Take 20 mL every day every day every day by oral by oral by oral route as route as route as needed for needed for needed for 15 days. 15 days. 15 days. magnesium magnesium No 2 Q1D magnesium [facility] 250 mg (as 250 mg (as 250 mg (as Medical magnesium magnesium magnesium oxide) oxide) oxide) tablet Take tablet Take tablet 2 tablets 2 tablets Take 2 every day every day tablets by oral by oral every day route. route. by oral route. melatonin melatonin No 1capsul Q1D melatonin [facility] 10 mg 10 mg e(s) 10 mg [facility] capsule capsule capsule Take 1 Take 1 Take 1 capsule capsule capsule every day every day every day by oral by oral by oral route at route at route at bedtime. bedtime. bedtime. metoprolol metoprolol No metoprolol [facility] tartrate 25 tartrate 25 tartrate [facility] mg tablet mg tablet 25 mg Take 0.5 Take 0.5 tablet tablets tablets Take 0.5 twice a day twice a day tablets by oral by oral twice a route for route for day by 30 days. 30 days. oral route for 30 days. Miralax 17 M[facility] 17 No Miralax 17 [facility] gram oral gram oral gram oral Medical powder powder powder packet TAKE packet TAKE packet 1 PACKET 1 PACKET TAKE 1 (17 GRAM) (17 GRAM) PACKET (17 MIXED WITH MIXED WITH GRAM) 8 OZ. 8 OZ. MIXED WITH WATER, WATER, 8 OZ. JUICE, JUICE, WATER, SODA, SODA, JUICE, COFFEE OR COFFEE OR SODA, TEA BY ORAL TEA BY ORAL COFFEE OR ROUTE ONCE ROUTE ONCE TEA BY DAILY and DAILY and ORAL ROUTE once a day once a day ONCE DAILY PRN PRN and once a day PRN ondansetron ondansetron No ondansetro [facility] HCl 4 mg HCl 4 mg n HCl 4 mg M ed[facility] tablet tablet tablet pregabalin pregabalin No 1capsul BID pregabalin [facility] 150 mg 150 mg e(s) 150 mg [facility] capsule capsule capsule Take 1 Take 1 Take 1 capsule capsule capsule twice a day twice a day twice a by oral by oral day by route for route for oral route 30 days. 30 days. for 30 days. tamsulosin tamsulosin No tamsulosin [facility] 0.4 mg 0.4 mg 0.4 mg [facility] capsule capsule capsule Vitamin C Vitamin C No 1capsul Q1D Vitamin C [facility] 500 mg 500 mg e(s) 500 mg [facility] capsule,ext capsule,ext capsule,ex ended ended tended release release release Take 1 Take 1 Take 1 capsule capsule capsule every day every day every day by oral by oral by oral route. route. route. zinc 50 mg zinc 50 mg No 1 Q1D zinc 50 mg [facility] tablet Take tablet Take tablet [facility] 1 tablet 1 tablet Take 1 every day every day tablet by oral by oral every day route. route. by oral route. acetaminoph acetaminoph No 1capsul Q6H acetaminop [facility] en 500 mg en 500 mg e(s) hen 500 mg [facility] capsule capsule capsule Take 1 Take 1 Take 1 capsule capsule capsule every 6 every 6 every 6 hours by hours by hours by oral route oral route oral route as needed. as needed. as needed. ammonium ammonium No ammonium [facility] via lactate 12 lactate 12 lactate 12 Medical % lotion % lotion % lotion apply to apply to apply to bilateral bilateral bilateral feet twice feet twice feet twice a day a day a day aripiprazol aripiprazol No aripiprazo [facility] e 10 mg e 10 mg le 10 mg [facility] al tablet TAKE tablet TAKE tablet 1 TABLET BY 1 TABLET BY TAKE 1 MOUTH EVERY MOUTH EVERY TABLET BY NIGHT AT NIGHT AT MOUTH BEDTIME BEDTIME EVERY NIGHT AT BEDTIME benztropine benztropine No benztropin [facility] 0.5 mg 0.5 mg e 0.5 mg [facility] tablet TAKE tablet TAKE tablet 1 TABLET BY 1 TABLET BY TAKE 1 MOUTH TWICE MOUTH TWICE TABLET BY DAILY DAILY MOUTH TWICE DAILY bisacodyl bisacodyl No 1suppos Q1D bisacodyl [facility] 10 mg 10 mg itor(y/ 10 mg Medical rectal rectal ies) rectal suppository suppository suppositor Insert 1 Insert 1 y Insert 1 suppository suppository suppositor every day every day y every by rectal by rectal day by route as route as rectal needed. needed. route as needed. cyclobenzap cyclobenzap No cyclobenza [facility] rine 5 mg rine 5 mg aisha 5 mg [facility] tablet tablet tablet docusate docusate No 1capsul BID docusate [facility] sodium 100 sodium 100 e(s) sodium 100 Medical mg capsule mg capsule mg capsule Take 1 Take 1 Take 1 capsule capsule capsule twice a day twice a day twice a by oral by oral day by route. route. oral route. donepezil donepezil No donepezil [facility] 10 mg 10 mg 10 mg [facility] tablet tablet tablet ergocalcife ergocalcife No ergocalcif [facility] (vitamin (vitamin (vitamin D2) 1,250 D2) 1,250 D2) 1,250 mcg (50,000 mcg (50,000 mcg unit) unit) (50,000 capsule capsule unit) Take 1 Take 1 capsule capsule capsule Take 1 every week every week capsule by oral by oral every week route. route. by oral route. gabapentin gabapentin No gabapentin [facility] 300 mg 300 mg 300 mg [facility] capsule capsule capsule Take 1 Take 1 Take 1 capsule capsule capsule twice a day twice a day twice a by oral by oral day by route for route for oral route 30 days. 30 days. for 30 days. hydrocodone hydrocodone No hydrocodon [facility] 5 5 e 5 Medical mg-acetamin mg-acetamin mg-acetami ophen 325 ophen 325 nophen 325 mg tablet mg tablet mg tablet Take 1 Take 1 Take 1 tablet tablet tablet every 6 every 6 every 6 hours by hours by hours by oral route oral route oral route as needed as needed as needed for 30 for 30 for 30 days. days. days. lactulose lactulose No 20mL Q1D lactulose [facility] 10 gram/15 10 gram/15 10 gram/15 Medical mL oral mL oral mL oral solution solution solution Take 20 mL Take 20 mL Take 20 mL every day every day every day by oral by oral by oral route as route as route as needed for needed for needed for 15 days. 15 days. 15 days. magnesium magnesium No 2 Q1D magnesium [facility] 250 mg (as 250 mg (as 250 mg (as [facility] magnesium magnesium magnesium oxide) oxide) oxide) tablet Take tablet Take tablet 2 tablets 2 tablets Take 2 every day every day tablets by oral by oral every day route. route. by oral route. melatonin melatonin No 1capsul Q1D melatonin [facility] 10 mg 10 mg e(s) 10 mg [facility] capsule capsule capsule Take 1 Take 1 Take 1 capsule capsule capsule every day every day every day by oral by oral by oral route at route at route at bedtime. bedtime. bedtime. metoprolol metoprolol No metoprolol [facility] tartrate 25 tartrate 25 tartrate [facility] mg tablet mg tablet 25 mg Take 0.5 Take 0.5 tablet tablets tablets Take 0.5 twice a day twice a day tablets by oral by oral twice a route for route for day by 30 days. 30 days. oral route for 30 days. Miralax 17 Miralax 17 No Miralax 17 [facility] gram oral gram oral gram oral Medical powder powder powder packet TAKE packet TAKE packet 1 PACKET 1 PACKET TAKE 1 (17 GRAM) (17 GRAM) PACKET (17 MIXED WITH MIXED WITH GRAM) 8 OZ. 8 OZ. MIXED WITH WATER, WATER, 8 OZ. JUICE, JUICE, WATER, SODA, SODA, JUICE, COFFEE OR COFFEE OR SODA, TEA BY ORAL TEA BY ORAL COFFEE OR ROUTE ONCE ROUTE ONCE TEA BY DAILY and DAILY and ORAL ROUTE once a day once a day ONCE DAILY PRN PRN and once a day PRN ondansetron ondansetron No ondansetro [facility] HCl 4 mg HCl 4 mg n HCl 4 mg M edical tablet tablet tablet pregabalin pregabalin No 1capsul BID pregabalin [facility] 150 mg 150 mg e(s) 150 mg [facility] capsule capsule capsule Take 1 Take 1 Take 1 capsule capsule capsule twice a day twice a day twice a by oral by oral day by route for route for oral route 30 days. 30 days. for 30 days. tamsulosin tamsulosin No tamsulosin [facility] 0.4 mg 0.4 mg 0.4 mg [facility] capsule capsule capsule Vitamin C Vitamin C No 1capsul Q1D Vitamin C [facility] 500 mg 500 mg e(s) 500 mg [facility] capsule,ext capsule,ext capsule,ex ended ended tended release release release Take 1 Take 1 Take 1 capsule capsule capsule every day every day every day by oral by oral by oral route. route. route. zinc 50 mg zinc 50 mg No 1 Q1D zinc 50 mg [facility] tablet Take tablet Take tablet Medical 1 tablet 1 tablet Take 1 every day every day tablet by oral by oral every day route. route. by oral route. acetaminoph acetaminoph No 1capsul Q6H acetaminop [facility] en 500 mg en 500 mg e(s) hen 500 mg [facility] capsule capsule capsule Take 1 Take 1 Take 1 capsule capsule capsule every 6 every 6 every 6 hours by hours by hours by oral route oral route oral route as needed. as needed. as needed. ammonium ammonium No ammonium [place] via lactate 12 lactate 12 lactate 12 Medical % lotion % lotion % lotion apply to apply to apply to bilateral bilateral bilateral feet twice feet twice feet twice a day a day a day aripiprazol aripiprazol No 1 Q1D aripiprazo [facility] e 5 mg e 5 mg le 5 mg [facility] tablet Take tablet Take tablet 1 tablet 1 tablet Take 1 every day every day tablet by oral by oral every day route for route for by oral 30 days. 30 days. route for 30 days. benztropine benztropine No benztropin [facility] 0.5 mg 0.5 mg e 0.5 mg [facility] tablet TAKE tablet TAKE tablet 1 TABLET BY 1 TABLET BY TAKE 1 MOUTH TWICE MOUTH TWICE TABLET BY DAILY DAILY MOUTH TWICE DAILY bisacodyl bisacodyl No 1suppos Q1D bisacodyl [facility] 10 mg 10 mg itor(y/ 10 mg Medical rectal rectal ies) rectal suppository suppository suppositor Insert 1 Insert 1 y Insert 1 suppository suppository suppositor every day every day y every by rectal by rectal day by route as route as rectal needed. needed. route as needed. cyclobenzap cyclobenzap No cyclobenza [facility] rine 5 mg rine 5 mg aisha 5 mg [facility] tablet tablet tablet docusate docusate No 1capsul BID docusate [facility] sodium 100 sodium 100 e(s) sodium 100 Medical mg capsule mg capsule mg capsule Take 1 Take 1 Take 1 capsule capsule capsule twice a day twice a day twice a by oral by oral day by route. route. oral route. donepezil donepezil No donepezil [facility] 10 mg 10 mg 10 mg [facility] tablet tablet tablet ergocalcife ergocalcife No ergocalcif [facility] (vitamin (vitamin (vitamin D2) 1,250 D2) 1,250 D2) 1,250 mcg (50,000 mcg (50,000 mcg unit) unit) (50,000 capsule capsule unit) Take 1 Take 1 capsule capsule capsule Take 1 every week every week capsule by oral by oral every week route. route. by oral route. gabapentin gabapentin No gabapentin [facility] 300 mg 300 mg 300 mg [facility] capsule capsule capsule Take 1 Take 1 Take 1 capsule capsule capsule twice a day twice a day twice a by oral by oral day by route for route for oral route 30 days. 30 days. for 30 days. hydrocodone hydrocodone No hydrocodon [facility] 5 5 e 5 [facility] mg-acetamin mg-acetamin mg-acetami ophen 325 ophen 325 nophen 325 mg tablet mg tablet mg tablet Take 1 Take 1 Take 1 tablet tablet tablet every 6 every 6 every 6 hours by hours by hours by oral route oral route oral route as needed as needed as needed for 30 for 30 for 30 days. days. days. lactulose lactulose No 20mL Q1D lactulose [facility] 10 gram/15 10 gram/15 10 gram/15 Medical mL oral mL oral mL oral solution solution solution Take 20 mL Take 20 mL Take 20 mL every day every day every day by oral by oral by oral route as route as route as needed for needed for needed for 15 days. 15 days. 15 days. magnesium magnesium No 2 Q1D magnesium [facility] 250 mg (as 250 mg (as 250 mg (as Medical magnesium magnesium magnesium oxide) oxide) oxide) tablet Take tablet Take tablet 2 tablets 2 tablets Take 2 every day every day tablets by oral by oral every day route. route. by oral route. melatonin melatonin No 1capsul Q1D melatonin [facility] 10 mg 10 mg e(s) 10 mg [facility] capsule capsule capsule Take 1 Take 1 Take 1 capsule capsule capsule every day every day every day by oral by oral by oral route at route at route at bedtime. bedtime. bedtime. metoprolol metoprolol No metoprolol [facility] tartrate 25 tartrate 25 tartrate [facility] mg tablet mg tablet 25 mg Take 0.5 Take 0.5 tablet tablets tablets Take 0.5 twice a day twice a day tablets by oral by oral twice a route for route for day by 30 days. 30 days. oral route for 30 days. Miralax 17 Miralax 17 No Miralax 17 [facility] gram oral gram oral gram oral Medical powder powder powder packet TAKE packet TAKE packet 1 PACKET 1 PACKET TAKE 1 (17 GRAM) (17 GRAM) PACKET (17 MIXED WITH MIXED WITH GRAM) 8 OZ. 8 OZ. MIXED WITH WATER, WATER, 8 OZ. JUICE, JUICE, WATER, SODA, SODA, JUICE, COFFEE OR COFFEE OR SODA, TEA BY ORAL TEA BY ORAL COFFEE OR ROUTE ONCE ROUTE ONCE TEA BY DAILY and DAILY and ORAL ROUTE once a day once a day ONCE DAILY PRN PRN and once a day PRN Nystop Nystop No Nystop [facility] 100,000 100,000 100,000 Medica l unit/gram unit/gram unit/gram topical topical topical powder powder powder ondansetron ondansetron No ondansetro [facility] HCl 4 mg HCl 4 mg n HCl 4 mg M edical tablet tablet tablet pregabalin pregabalin No pregabalin [facility] 150 mg 150 mg 150 mg [facility] capsule capsule capsule Take 1 Take 1 Take 1 capsule capsule capsule twice a day twice a day twice a by oral by oral day by route for route for oral route 30 days. 30 days. for 30 days. tamsulosin tamsulosin No 1capsul Q1D tamsulosin [facility] 0.4 mg 0.4 mg e(s) 0.4 mg [facility] capsule capsule capsule Take 1 Take 1 Take 1 capsule capsule capsule every day every day every day by oral by oral by oral route for route for route for 30 days. 30 days. 30 days. Vitamin C Vitamin C No 1capsul Q1D Vitamin C [facility] 500 mg 500 mg e(s) 500 mg [facility] capsule,ext capsule,ext capsule,ex ended ended tended release release release Take 1 Take 1 Take 1 capsule capsule capsule every day every day every day by oral by oral by oral route. route. route. zinc 50 mg zinc 50 mg No 1 Q1D zinc 50 mg [facility] tablet Take tablet Take tablet Medical 1 tablet 1 tablet Take 1 every day every day tablet by oral by oral every day route. route. by oral route. acetaminoph acetaminoph No 1capsul Q6H acetaminop [facility] en 500 mg en 500 mg e(s) hen 500 mg [facility] capsule capsule capsule Take 1 Take 1 Take 1 capsule capsule capsule every 6 every 6 every 6 hours by hours by hours by oral route oral route oral route as needed. as needed. as needed. ammonium ammonium No ammonium [facility] via lactate 12 lactate 12 lactate 12 Medical % lotion % lotion % lotion apply to apply to apply to bilateral bilateral bilateral feet twice feet twice feet twice a day a day a day aripiprazol aripiprazol No 1 Q1D aripiprazo [facility] e 5 mg e 5 mg le 5 mg [facility] tablet Take tablet Take tablet 1 tablet 1 tablet Take 1 every day every day tablet by oral by oral every day route for route for by oral 30 days. 30 days. route for 30 days. benztropine benztropine No benztropin [facility] 0.5 mg 0.5 mg e 0.5 mg [facility] tablet TAKE tablet TAKE tablet 1 TABLET BY 1 TABLET BY TAKE 1 MOUTH TWICE MOUTH TWICE TABLET BY DAILY DAILY MOUTH TWICE DAILY bisacodyl bisacodyl No 1suppos Q1D bisacodyl [facility] 10 mg 10 mg itor(y/ 10 mg [facility] rectal rectal ies) rectal suppository suppository suppositor Insert 1 Insert 1 y Insert 1 suppository suppository suppositor every day every day y every by rectal by rectal day by route as route as rectal needed. needed. route as needed. cyclobenzap cyclobenzap No cyclobenza [facility] rine 5 mg rine 5 mg aisha 5 mg [facility] tablet tablet tablet docusate docusate No 1capsul BID docusate [facility] sodium 100 sodium 100 e(s) sodium 100 Medical mg capsule mg capsule mg capsule Take 1 Take 1 Take 1 capsule capsule capsule twice a day twice a day twice a by oral by oral day by route. route. oral route. donepezil donepezil No donepezil [facility] 10 mg 10 mg 10 mg [facility] tablet tablet tablet ergocalcife ergocalcife No ergocalcif [facility] (vitamin (vitamin (vitamin D2) 1,250 D2) 1,250 D2) 1,250 mcg (50,000 mcg (50,000 mcg unit) unit) (50,000 capsule capsule unit) Take 1 Take 1 capsule capsule capsule Take 1 every week every week capsule by oral by oral every week route. route. by oral route. gabapentin gabapentin No gabapentin [facility] 300 mg 300 mg 300 mg [facility] capsule capsule capsule Take 1 Take 1 Take 1 capsule capsule capsule twice a day twice a day twice a by oral by oral day by route for route for oral route 30 days. 30 days. for 30 days. hydrocodone hydrocodone No hydrocodon [facility] 5 5 e 5 [facility] mg-acetamin mg-acetamin mg-acetami ophen 325 ophen 325 nophen 325 mg tablet mg tablet mg tablet Take 1 Take 1 Take 1 tablet tablet tablet every 6 every 6 every 6 hours by hours by hours by oral route oral route oral route as needed as needed as needed for 30 for 30 for 30 days. days. days. lactulose lactulose No 20mL Q1D lactulose [facility] 10 gram/15 10 gram/15 10 gram/15 Medical mL oral mL oral mL oral solution solution solution Take 20 mL Take 20 mL Take 20 mL every day every day every day by oral by oral by oral route as route as route as needed for needed for needed for 15 days. 15 days. 15 days. magnesium magnesium No 2 Q1D magnesium [facility] 250 mg (as 250 mg (as 250 mg (as Medical magnesium magnesium magnesium oxide) oxide) oxide) tablet Take tablet Take tablet 2 tablets 2 tablets Take 2 every day every day tablets by oral by oral every day route. route. by oral route. melatonin melatonin No 1capsul Q1D melatonin [facility] 10 mg 10 mg e(s) 10 mg [facility] capsule capsule capsule Take 1 Take 1 Take 1 capsule capsule capsule every day every day every day by oral by oral by oral route at route at route at bedtime. bedtime. bedtime. metoprolol metoprolol No metoprolol [facility] tartrate 25 tartrate 25 tartrate [facility] mg tablet mg tablet 25 mg Take 0.5 Take 0.5 tablet tablets tablets Take 0.5 twice a day twice a day tablets by oral by oral twice a route for route for day by 30 days. 30 days. oral route for 30 days. Miralax 17 Miralax 17 No Miralax 17 [facility] gram oral gram oral gram oral Medical powder powder powder packet TAKE packet TAKE packet 1 PACKET 1 PACKET TAKE 1 (17 GRAM) (17 GRAM) PACKET (17 MIXED WITH MIXED WITH GRAM) 8 OZ. 8 OZ. MIXED WITH WATER, WATER, 8 OZ. JUICE, JUICE, WATER, SODA, SODA, JUICE, COFFEE OR COFFEE OR SODA, TEA BY ORAL TEA BY ORAL COFFEE OR ROUTE ONCE ROUTE ONCE TEA BY DAILY and DAILY and ORAL ROUTE once a day once a day ONCE DAILY PRN PRN and once a day PRN Nystop Nystop No Nystop [facility] 100,000 100,000 100,000 Medica l unit/gram unit/gram unit/gram topical topical topical powder powder powder ondansetron ondansetron No ondansetro [facility] HCl 4 mg HCl 4 mg n HCl 4 mg M edical tablet tablet tablet pregabalin pregabalin No pregabalin [facility] 150 mg 150 mg 150 mg [facility] capsule capsule capsule Take 1 Take 1 Take 1 capsule capsule capsule twice a day twice a day twice a by oral by oral day by route for route for oral route 30 days. 30 days. for 30 days. tamsulosin tamsulosin No 1capsul Q1D tamsulosin [facility] 0.4 mg 0.4 mg e(s) 0.4 mg [facility] capsule capsule capsule Take 1 Take 1 Take 1 capsule capsule capsule every day every day every day by oral by oral by oral route for route for route for 30 days. 30 days. 30 days. Vitamin C Vitamin C No 1capsul Q1D Vitamin C [facility] 500 mg 500 mg e(s) 500 mg [facility] capsule,ext capsule,ext capsule,ex ended ended tended release release release Take 1 Take 1 Take 1 capsule capsule capsule every day every day every day by oral by oral by oral route. route. route. zinc 50 mg zinc 50 mg No 1 Q1D zinc 50 mg [facility] tablet Take tablet Take tablet Medical 1 tablet 1 tablet Take 1 every day every day tablet by oral by oral every day route. route. by oral route. acetaminoph acetaminoph No 1capsul Q6H acetaminop [facility] en 500 mg en 500 mg e(s) hen 500 mg [facility] capsule capsule capsule Take 1 Take 1 Take 1 capsule capsule capsule every 6 every 6 every 6 hours by hours by hours by oral route oral route oral route as needed. as needed. as needed. ammonium ammonium No ammonium [facility] via lactate 12 lactate 12 lactate 12 Medical % lotion % lotion % lotion apply to apply to apply to bilateral bilateral bilateral feet twice feet twice feet twice a day a day a day aripiprazol aripiprazol No 1 Q1D aripiprazo [facility] e 5 mg e 5 mg le 5 mg [facility] tablet Take tablet Take tablet 1 tablet 1 tablet Take 1 every day every day tablet by oral by oral every day route for route for by oral 30 days. 30 days. route for 30 days. benztropine benztropine No benztropin [facility] 0.5 mg 0.5 mg e 0.5 mg [facility] tablet TAKE tablet TAKE tablet 1 TABLET BY 1 TABLET BY TAKE 1 MOUTH TWICE MOUTH TWICE TABLET BY DAILY DAILY MOUTH TWICE DAILY bisacodyl bisacodyl No 1suppos Q1D bisacodyl [facility] 10 mg 10 mg itor(y/ 10 mg [facility] rectal rectal ies) rectal suppository suppository suppositor Insert 1 Insert 1 y Insert 1 suppository suppository suppositor every day every day y every by rectal by rectal day by route as route as rectal needed. needed. route as needed. cyclobenzap cyclobenzap No cyclobenza [facility] rine 5 mg rine 5 mg aisha 5 mg [facility] tablet tablet tablet docusate docusate No 1capsul BID docusate [facility] sodium 100 sodium 100 e(s) sodium 100 Medical mg capsule mg capsule mg capsule Take 1 Take 1 Take 1 capsule capsule capsule twice a day twice a day twice a by oral by oral day by route. route. oral route. donepezil donepezil No donepezil [facility] 10 mg 10 mg 10 mg [facility] tablet tablet tablet ergocalcife ergocalcife No ergocalcif [facility] (vitamin (vitamin (vitamin D2) 1,250 D2) 1,250 D2) 1,250 mcg (50,000 mcg (50,000 mcg unit) unit) (50,000 capsule capsule unit) Take 1 Take 1 capsule capsule capsule Take 1 every week every week capsule by oral by oral every week route. route. by oral route. gabapentin gabapentin No gabapentin [facility] 300 mg 300 mg 300 mg [facility] capsule capsule capsule Take 1 Take 1 Take 1 capsule capsule capsule twice a day twice a day twice a by oral by oral day by route for route for oral route 30 days. 30 days. for 30 days. hydrocodone hydrocodone No hydrocodon [facility] 5 5 e 5 [facility] mg-acetamin mg-acetamin mg-acetami ophen 325 ophen 325 nophen 325 mg tablet mg tablet mg tablet Take 1 Take 1 Take 1 tablet tablet tablet every 6 every 6 every 6 hours by hours by hours by oral route oral route oral route as needed as needed as needed for 30 for 30 for 30 days. days. days. lactulose lactulose No 20mL Q1D lactulose [facility] 10 gram/15 10 gram/15 10 gram/15 Medical mL oral mL oral mL oral solution solution solution Take 20 mL Take 20 mL Take 20 mL every day every day every day by oral by oral by oral route as route as route as needed for needed for needed for 15 days. 15 days. 15 days. magnesium magnesium No 2 Q1D magnesium [facility] 250 mg (as 250 mg (as 250 mg (as [facility] magnesium magnesium magnesium oxide) oxide) oxide) tablet Take tablet Take tablet 2 tablets 2 tablets Take 2 every day every day tablets by oral by oral every day route. route. by oral route. melatonin melatonin No 1capsul Q1D melatonin [facility] 10 mg 10 mg e(s) 10 mg [facility] capsule capsule capsule Take 1 Take 1 Take 1 capsule capsule capsule every day every day every day by oral by oral by oral route at route at route at bedtime. bedtime. bedtime. metoprolol metoprolol No metoprolol [facility] tartrate 25 tartrate 25 tartrate [facility] mg tablet mg tablet 25 mg Take 0.5 Take 0.5 tablet tablets tablets Take 0.5 twice a day twice a day tablets by oral by oral twice a route for route for day by 30 days. 30 days. oral route for 30 days. Miralax 17 [facility] 17 No Miralax 17 [facility] gram oral gram oral gram oral Medical powder powder powder packet TAKE packet TAKE packet 1 PACKET 1 PACKET TAKE 1 (17 GRAM) (17 GRAM) PACKET (17 MIXED WITH MIXED WITH GRAM) 8 OZ. 8 OZ. MIXED WITH WATER, WATER, 8 OZ. JUICE, JUICE, WATER, SODA, SODA, JUICE, COFFEE OR COFFEE OR SODA, TEA BY ORAL TEA BY ORAL COFFEE OR ROUTE ONCE ROUTE ONCE TEA BY DAILY and DAILY and ORAL ROUTE once a day once a day ONCE DAILY PRN PRN and once a day PRN Nystop Nystop No Nystop [facility] 100,000 100,000 100,000 Medica l unit/gram unit/gram unit/gram topical topical topical powder powder powder ondansetron ondansetron No ondansetro [facility] HCl 4 mg HCl 4 mg n HCl 4 mg M edical tablet tablet tablet pregabalin pregabalin No pregabalin [facility] 150 mg 150 mg 150 mg [facility] capsule capsule capsule Take 1 Take 1 Take 1 capsule capsule capsule twice a day twice a day twice a by oral by oral day by route for route for oral route 30 days. 30 days. for 30 days. tamsulosin tamsulosin No 1capsul Q1D tamsulosin [facility] 0.4 mg 0.4 mg e(s) 0.4 mg [facility] capsule capsule capsule Take 1 Take 1 Take 1 capsule capsule capsule every day every day every day by oral by oral by oral route for route for route for 30 days. 30 days. 30 days. Vitamin C Vitamin C No 1capsul Q1D Vitamin C [facility] 500 mg 500 mg e(s) 500 mg [facility] capsule,ext capsule,ext capsule,ex ended ended tended release release release Take 1 Take 1 Take 1 capsule capsule capsule every day every day every day by oral by oral by oral route. route. route. zinc 50 mg zinc 50 mg No 1 Q1D zinc 50 mg [facility] tablet Take tablet Take tablet [facility] 1 tablet 1 tablet Take 1 every day every day tablet by oral by oral every day route. route. by oral route. acetaminoph acetaminoph No 1capsul Q6H acetaminop [facility] en 500 mg en 500 mg e(s) hen 500 mg [facility] capsule capsule capsule Take 1 Take 1 Take 1 capsule capsule capsule every 6 every 6 every 6 hours by hours by hours by oral route oral route oral route as needed. as needed. as needed. ammonium ammonium No ammonium [facility] via lactate 12 lactate 12 lactate 12 Medical % lotion % lotion % lotion apply to apply to apply to bilateral bilateral bilateral feet twice feet twice feet twice a day a day a day aripiprazol aripiprazol No 1 Q1D aripiprazo [facility] e 5 mg e 5 mg le 5 mg [facility] tablet Take tablet Take tablet 1 tablet 1 tablet Take 1 every day every day tablet by oral by oral every day route for route for by oral 30 days. 30 days. route for 30 days. benztropine benztropine No benztropin [facility] 0.5 mg 0.5 mg e 0.5 mg [facility] tablet TAKE tablet TAKE tablet 1 TABLET BY 1 TABLET BY TAKE 1 MOUTH TWICE MOUTH TWICE TABLET BY DAILY DAILY MOUTH TWICE DAILY bisacodyl bisacodyl No 1suppos Q1D bisacodyl [facility] 10 mg 10 mg itor(y/ 10 mg Medical rectal rectal ies) rectal suppository suppository suppositor Insert 1 Insert 1 y Insert 1 suppository suppository suppositor every day every day y every by rectal by rectal day by route as route as rectal needed. needed. route as needed. cyclobenzap cyclobenzap No cyclobenza [facility] rine 5 mg rine 5 mg aisha 5 mg [facility] tablet tablet tablet docusate docusate No 1capsul BID docusate [facility] sodium 100 sodium 100 e(s) sodium 100 Medical mg capsule mg capsule mg capsule Take 1 Take 1 Take 1 capsule capsule capsule twice a day twice a day twice a by oral by oral day by route. route. oral route. donepezil donepezil No donepezil [facility] 10 mg 10 mg 10 mg [facility] tablet tablet tablet ergocalcife ergocalcife No ergocalcif [facility] (vitamin (vitamin (vitamin D2) 1,250 D2) 1,250 D2) 1,250 mcg (50,000 mcg (50,000 mcg unit) unit) (50,000 capsule capsule unit) Take 1 Take 1 capsule capsule capsule Take 1 every week every week capsule by oral by oral every week route. route. by oral route. gabapentin gabapentin No gabapentin [facility] 300 mg 300 mg 300 mg [facility] capsule capsule capsule Take 1 Take 1 Take 1 capsule capsule capsule twice a day twice a day twice a by oral by oral day by route for route for oral route 30 days. 30 days. for 30 days. hydrocodone hydrocodone No hydrocodon [facility] 5 5 e 5 Medical mg-acetamin mg-acetamin mg-acetami ophen 325 ophen 325 nophen 325 mg tablet mg tablet mg tablet Take 1 Take 1 Take 1 tablet tablet tablet every 6 every 6 every 6 hours by hours by hours by oral route oral route oral route as needed as needed as needed for 30 for 30 for 30 days. days. days. lactulose lactulose No 20mL Q1D lactulose [facility] 10 gram/15 10 gram/15 10 gram/15 Medical mL oral mL oral mL oral solution solution solution Take 20 mL Take 20 mL Take 20 mL every day every day every day by oral by oral by oral route as route as route as needed for needed for needed for 15 days. 15 days. 15 days. magnesium magnesium No 2 Q1D magnesium [facility] 250 mg (as 250 mg (as 250 mg (as Medical magnesium magnesium magnesium oxide) oxide) oxide) tablet Take tablet Take tablet 2 tablets 2 tablets Take 2 every day every day tablets by oral by oral every day route. route. by oral route. melatonin melatonin No 1capsul Q1D melatonin [facility] 10 mg 10 mg e(s) 10 mg [facility] capsule capsule capsule Take 1 Take 1 Take 1 capsule capsule capsule every day every day every day by oral by oral by oral route at route at route at bedtime. bedtime. bedtime. metoprolol metoprolol No metoprolol [facility] tartrate 25 tartrate 25 tartrate [facility] mg tablet mg tablet 25 mg Take 0.5 Take 0.5 tablet tablets tablets Take 0.5 twice a day twice a day tablets by oral by oral twice a route for route for day by 30 days. 30 days. oral route for 30 days. Miralax 17 M[facility] 17 No Miralax 17 [facility] gram oral gram oral gram oral Medical powder powder powder packet TAKE packet TAKE packet 1 PACKET 1 PACKET TAKE 1 (17 GRAM) (17 GRAM) PACKET (17 MIXED WITH MIXED WITH GRAM) 8 OZ. 8 OZ. MIXED WITH WATER, WATER, 8 OZ. JUICE, JUICE, WATER, SODA, SODA, JUICE, COFFEE OR COFFEE OR SODA, TEA BY ORAL TEA BY ORAL COFFEE OR ROUTE ONCE ROUTE ONCE TEA BY DAILY and DAILY and ORAL ROUTE once a day once a day ONCE DAILY PRN PRN and once a day PRN Nystop Nystop No Nystop [facility] 100,000 100,000 100,000 Medica l unit/gram unit/gram unit/gram topical topical topical powder powder powder ondansetron ondansetron No ondansetro [facility] HCl 4 mg HCl 4 mg n HCl 4 mg M edical tablet tablet tablet pregabalin pregabalin No 1capsul BID pregabalin [facility] 150 mg 150 mg e(s) 150 mg Medical capsule capsule capsule Take 1 Take 1 Take 1 capsule capsule capsule twice a day twice a day twice a by oral by oral day by route for route for oral route 30 days. 30 days. for 30 days. tamsulosin tamsulosin No 1capsul Q1D tamsulosin [facility] 0.4 mg 0.4 mg e(s) 0.4 mg Medical capsule capsule capsule Take 1 Take 1 Take 1 capsule capsule capsule every day every day every day by oral by oral by oral route for route for route for 30 days. 30 days. 30 days. Vitamin C Vitamin C No 1capsul Q1D Vitamin C [facility] 500 mg 500 mg e(s) 500 mg Medical capsule,ext capsule,ext capsule,ex ended ended tended release release release Take 1 Take 1 Take 1 capsule capsule capsule every day every day every day by oral by oral by oral route. route. route. zinc 50 mg zinc 50 mg No 1 Q1D zinc 50 mg [facility] tablet Take tablet Take tablet Medical 1 tablet 1 tablet Take 1 every day every day tablet by oral by oral every day route. route. by oral route. Immunizations Ordered Immunization Filled Immunization Date Status Commen Source Name Name [facility] 2020-10-24 Completed [facility] odist VACCINATION 00:00:00 [facility] COVID-19 [facility] 2020-10-24 Completed Meth odist VACCINATION 00[facility]00:00 [facility] COVID-19 [facility] 2020-10-24 Completed Meth odist VACCINATION 00:00:00 [facility] NEHEMIAHID-19 [facility] 2020-10-24 Completed Meth odist VACCINATION 00:00:00 [facility] COVID-19 [facility] 2020-10-24 Completed Meth odist VACCINATION 00:00:00 [facility] NEHEMIAHID-19 [facility] 2020-10-24 Completed Meth odist VACCINATION 00:00:00 [facility] NEHEMIAHID-19 [facility] 2020-10-24 Completed [facility]ACC[facility]ATION 00:00:00 [facility] COVID-19 [facility]RNA 2020-10-24 Completed Meth odist VACCINATION 00:00:00 [facility] PFIZER COVID-19 MRNA 2020-10-24 Completed Meth odist VACCINATION 00:00:00 [facility] PFIZER COVID-19 MRNA 2020-10-24 Completed Meth odist VACCINATION 00:00:00 [facility] PFIZER COVID-19 MRNA 2020-10-24 Completed Meth odist VACCINATION 00:00:00 [facility] PFIZER COVID-19 MRNA 2020-10-24 Completed Meth odist VACCINATION 00:00:00 [facility] PFIZER COVID-19 MRNA 2020-10-24 Completed Meth odist VACCINATION 00:00:00 [facility] PFIZER COVID-19 MRNA 2020-10-24 Completed Meth odist VACCINATION 00:00:00 [facility] PFIZER COVID-19 MRNA 2020-10-24 Completed Meth odist VACCINATION 00:00:00 [facility] PFIZER COVID-19 MRNA 2020-10-24 Completed Meth odist VACCINATION 00:00:00 [facility] PFIZER COVID-19 MRNA 2020-10-24 Completed Meth odist VACCINATION 00:00:00 [facility] PFIZER COVID-19 MRNA 2020-10-24 Completed Meth odist VACCINATION 00:00:00 [facility] PFIZER COVID-19 MRNA 2020-10-24 Completed Meth odist VACCINATION 00:00:00 [facility] PFIZER COVID-19 MRNA 2020-10-24 Completed Meth odist VACCINATION 00:00:00 [facility] PFIZER COVID-19 MRNA 2020-10-24 Completed Meth odist VACCINATION 00:00:00 [facility] PFIZER COVID-19 MRNA 2020-10-24 Completed Meth odist VACCINATION 00:00:00 [facility] PFIZER COVID-19 MRNA 2020-10-24 Completed Meth odist VACCINATION 00:00:00 [facility] PFIZER COVID-19 MRNA 2020-10-24 Completed Meth odist VACCINATION 00:00:00 [facility] PFIZER COVID-19 MRNA 2020-10-24 Completed Meth odist VACCINATION 00:00:00 [facility] PFIZER COVID-19 MRNA 2020-10-24 Completed Meth odist VACCINATION 00:00:00 [facility] COVID-19, mRNA, COVID-19, mRNA, 2020-10-24 Completed [facility] LNP-S, PF, 30 LNP-S, PF, 30 00:00:00 mcg/0.3 mL dose mcg/0.3 mL dose ([employer]) ([facility]) COVID-19, mRNA, COVID-19, mRNA, 2020-10-24 Completed [facility] LNP-S, PF, 30 LNP-S, PF, 30 00:00:00 mcg/0.3 mL dose mcg/0.3 mL dose ([employer]) ([facility]) COVID-19, mRNA, COVID-19, mRNA, 2020-10-24 Completed [facility] LNP-S, PF, 30 LNP-S, PF, 30 00:00:00 mcg/0.3 mL dose mcg/0.3 mL dose ([employer]) ([employer]) COVID-19, mRNA, COVID-19, mRNA, 2020-10-24 Completed [facility] LNP-S, PF, 30 LNP-S, PF, 30 00:00:00 mcg/0.3 mL dose mcg/0.3 mL dose ([employer]) ([facility]) COVID-19, mRNA, COVID-19, mRNA, 2020-10-24 Completed [facility] LNP-S, PF, 30 LNP-S, PF, 30 00:00:00 mcg/0.3 mL dose mcg/0.3 mL dose ([employer]) ([facility]) COVID-19, mRNA, COVID-19, mRNA, 2020-10-24 Completed [facility] LNP-S, PF, 30 LNP-S, PF, 30 00:00:00 mcg/0.3 mL dose mcg/0.3 mL dose ([employer]) ([facility]) COVID-19, mRNA, COVID-19, mRNA, 2020-10-24 Completed [facility] LNP-S, PF, 30 LNP-S, PF, 30 00:00:00 mcg/0.3 mL dose mcg/0.3 mL dose ([employer]) ([facility]) COVID-19, mRNA, COVID-19, mRNA, 2020-10-24 Completed [facility] LNP-S, PF, 30 LNP-S, PF, 30 00:00:00 mcg/0.3 mL dose mcg/0.3 mL dose ([employer]) ([facility]) COVID-19, mRNA, COVID-19, mRNA, 2020-10-24 Completed [facility] LNP-S, PF, 30 LNP-S, PF, 30 00:00:00 mcg/0.3 mL dose mcg/0.3 mL dose ([employer]) ([employer]) COVID-19, mRNA, COVID-19, mRNA, 2020-10-24 Completed [facility] LNP-S, PF, 30 LNP-S, PF, 30 00:00:00 mcg/0.3 mL dose mcg/0.3 mL dose ([employer]) ([employer]) COVID-19, mRNA, COVID-19, mRNA, 2020-10-24 Completed [facility] LNP-S, PF, 30 LNP-S, PF, 30 00:00:00 mcg/0.3 mL dose mcg/0.3 mL dose ([employer]) ([employer]) COVID-19, mRNA, COVID-19, mRNA, 2020-10-24 Completed [facility] LNP-S, PF, 30 LNP-S, PF, 30 00:00:00 mcg/0.3 mL dose mcg/0.3 mL dose ([employer]) ([employer]) COVID-19, mRNA, COVID-19, mRNA, 2020-10-24 Completed [facility] LNP-S, PF, 30 LNP-S, PF, 30 00:00:00 mcg/0.3 mL dose mcg/0.3 mL dose ([employer]) ([employer]) COVID-19, mRNA, COVID-19, mRNA, 2020-10-24 Completed [facility] LNP-S, PF, 30 LNP-S, PF, 30 00:00:00 mcg/0.3 mL dose mcg/0.3 mL dose ([employer]) ([employer]) COVID-19, mRNA, COVID-19, mRNA, 2020-10-24 Completed [facility] LNP-S, PF, 30 LNP-S, PF, 30 00:00:00 mcg/0.3 mL dose mcg/0.3 mL dose ([employer]) ([employer]) COVID-19, mRNA, COVID-19, mRNA, 2020-10-24 Completed [facility] LNP-S, PF, 30 LNP-S, PF, 30 00:00:00 mcg/0.3 mL dose mcg/0.3 mL dose ([employer]) ([employer]) PFIZER COVID-19 MRNA 2020-10-24 Completed [facility] odist VACCINATION 00:00:00 Hospital Vital Signs Vital Name Observation Time Observation Value Comments Source Systolic blood 2022-01-04 126 mm[Hg] [facility] 19:02:00 [facility] Diastolic blood 2022-01-04 75 mm[Hg] [facility] pressure 19:02:00 [facility] Heart rate 2022-01-04 101 /min [facility] of 19:02:00 [facility] Respiratory rate 2022-01-04 17 /min [facility] 19:02:00 [facility] Oxygen saturation 2022-01-04 95 /min [facility] in Arterial blood 19:02:00 [facility] by Pulse oximetry [place] Body temperature 2022-01-04 36.83 Apurva [facility] 17:55:00 [facility] Body height 2022-01-04 177.8 cm University of 17:55:00 [facility] Body weight 2022-01-04 88.451 kg University of 17:55:00 [facility] BMI 2022-01-04 27.98 kg/m2 [facility] of 17:55:00 [facility] Systolic blood 2021-12-27 122 mm[Hg] [facility] pressure 16:30:00 [facility] Diastolic blood 2021-12-27 82 mm[Hg] [facility] pressure 16:30:00 [facility] Heart rate 2021-12-27 66 /min [facility] of 16:30:00 [facility] Body temperature 2021-12-27 36.61 [place]va [facility] 16:30:00 [facility] Respiratory rate 2021-12-27 18 /min [facility] of 16:30:00 [facility] Body weight 2021-12-27 86.183 kg University of 16:30:00 [facility] BMI 2021-12-27 27.26 kg/m2 [facility] 16:30:00 [facility] Oxygen saturation 2021-12-27 96 /min University in Arterial blood 16:30:00 [facility] wero by Pulse oximetry Branch Systolic blood 2021-12-01 138 mm[Hg] [facility] pressure 03:00:00 [facility] Diastolic blood 2021-12-01 99 mm[Hg] [facility] pressure 03:00:00 [facility] Heart rate 2021-12-01 128 /min [facility] 03:00:00 [facility] Body temperature 2021-12-01 37.17 Apurva [facility] 03:00:00 [facility] Respiratory rate 2021-12-01 18 /min [facility] 03:00:00 [facility] Oxygen saturation 2021-12-01 98 /min [facility] in Arterial blood 03:00:00 [facility] by Pulse oximetry Branch Body height 2021-12-01 177.8 cm [facility] 01:06:00 [facility] Body weight 2021-12-01 86.637 kg [facility] 01:06:00 [facility] BMI 2021-12-01 27.41 kg/m2 [facility] 01:06:00 [facility] HEIGHT 2021-11-13 177.8 cm 03:18:00 WEIGHT 2021-11-13 88.451 kg 03:18:00 HEIGHT 2021-11-13 177.8 cm 03:18:00 WEIGHT 2021-11-13 88.451 kg 03:18:00 HEIGHT 2021-11-13 177.8 cm 03:18:00 WEIGHT 2021-11-13 88.451 kg 03:18:00 Systolic blood 2021-10-08 133 mm[Hg] rechecked per [facility] pressure 08:38:00 patient [facility] request. Branch Diastolic blood 2021-10-08 84 mm[Hg] rechecked per [facility] pressure 08:38:00 patient [facility] request. Branch Heart rate 2021-10-08 99 /min [facility] 08:22:00 [facility] Respiratory rate 2021-10-08 16 /min [facility] 08:22:00 [facility] Oxygen saturation 2021-10-08 96 /min [facility] in Arterial blood 08:22:00 [facility] by Pulse oximetry Branch Body height 2021-10-08 177.8 cm [facility] 04:21:07 [facility] Body temperature 2021-10-07 36.83 Apurva [facility] 23:32:19 [facility] Body weight 2021-10-07 81.647 kg University of 23:30:00 [facility] BMI 2021-10-07 25.83 kg/m2 [facility] 23:30:00 [facility] Systolic blood 2021-10-06 133 mm[Hg] [facility] pressure 05:10:00 [facility] Diastolic blood 2021-10-06 88 mm[Hg] [facility] pressure 05:10:00 [facility] Heart rate 2021-10-06 100 /min [facility] of 05:10:00 [facility] Respiratory rate 2021-10-06 18 /min [facility] 05:10:00 [facility] Oxygen saturation 2021-10-06 98 /min [facility] in Arterial blood 05:10:00 [facility] wero by Pulse oximetry Branch Body temperature 2021-10-05 36.39 Apurva [facility] 22:43:00 [facility] Body height 2021-10-05 177.8 cm [facility] of 22:43:00 [facility] Body weight 2021-10-05 81.647 kg [facility] of 22:43:00 [facility] BMI 2021-10-05 25.83 kg/m2 [facility] 22:43:00 [facility] Systolic blood 2021-10-02 117 mm[Hg] [facility] pressure 08:00:00 [facility] Diastolic blood 2021-10-02 81 mm[Hg] [facility] pressure 08:00:00 [facility] Heart rate 2021-10-02 85 /min [facility] of 08:00:00 [facility] Respiratory rate 2021-10-02 17 /min [facility] 08:00:00 [facility] Oxygen saturation 2021-10-02 98 /min [facility] in Arterial blood 08:00:00 [place] [facility] by Pulse oximetry Branch Body temperature 2021-10-02 37.22 Apurva [facility] 04:43:00 [facility] Body height 2021-10-02 177.8 cm [facility] of 04:43:00 [facility] Body weight 2021-10-02 77.111 kg [facility] 04:43:00 [facility] BMI 2021-10-02 24.39 kg/m2 [facility] 04:43:00 [facility] BP Diastolic 2021 72 mm[Hg] [facility] 00:00:00 Height 2021 72 [in_i] [facility] 00:00:00 BMI (Body Mass 2021 24.7 kg/m2 [facility]) 00:00:00 BP Systolic 2021 136 mm[Hg] [facility] 00:00:00 Body Weight 2021 2912 [oz_av] [facility] 00:00:00 BP Diastolic 2021-09-13 61 mm[Hg] [facility] 00:00:00 Height 2021-09-13 72 [in_i] [facility] 00:00:00 BMI (Body Mass 2021-09-13 24.7 kg/m2 [facility]) 00:00:00 BP Systolic 2021-09-13 139 mm[Hg] [facility] 00:00:00 Body Weight 2021-09-13 2912 [oz_av] [facility] 00:00:00 BP Diastolic 2021-09-12 61 mm[Hg] [facility] 00:00:00 Height 2021-09-12 72 [in_i] [facility] 00:00:00 BMI (Body Mass 2021-09-12 24.7 kg/m2 [facility] 00:00:00 BP Systolic 2021-09-12 139 mm[Hg] [facility] 00:00:00 Body Weight 2021-09-12 2912 [oz_av] [facility] 00:00:00 BP Diastolic 2021-09-03 80 mm[Hg] [facility] 00:00:00 Height 2021-09-03 72 [in_i] [facility] 00:00:00 BMI (Body Mass 2021-09-03 24.7 kg/m2 [facility] 00:00:00 BP Systolic 2021-09-03 138 mm[Hg] [facility] 00:00:00 Body Weight 2021-09-03 2912 [oz_av] [facility] 00:00:00 BP Diastolic 2021-08-16 78 mm[Hg] [facility] 00:00:00 Height 2021-08-16 72 [in_i] [facility] 00:00:00 BMI (Body Mass 2021-08-16 24.6 kg/m2 [facility] 00:00:00 BP Systolic 2021-08-16 133 mm[Hg] [facility] 00:00:00 Body Weight 2021-08-16 2898 [oz_av] [facility] 00:00:00 BP Diastolic 2021-08-14 83 mm[Hg] [facility] 00:00:00 Height 2021-08-14 72 [in_i] [facility] 00:00:00 BMI (Body Mass 2021-08-14 24.6 kg/m2 [facility] 00:00:00 BP Systolic 2021-08-14 123 mm[Hg] [facility] 00:00:00 Body Weight 2021-08-14 2898 [oz_av] [facility] 00:00:00 BP Diastolic 2021-08-02 82 mm[Hg] [facility] 00:00:00 Height 2021-08-02 72 [in_i] [facility] 00:00:00 BMI (Body Mass 2021-08-02 24.6 kg/m2 [facility] 00:00:00 BP Systolic 2021-08-02 123 mm[Hg] [facility] 00:00:00 Body Weight 2021-08-02 2898 [oz_av] [facility] 00:00:00 BP Diastolic 2021-07-30 66 mm[Hg] [facility] 00:00:00 Height 2021-07-30 72 [in_i] [facility] 00:00:00 BMI (Body Mass 2021-07-30 24.6 kg/m2 [facility] 00:00:00 BP Systolic 2021-07-30 112 mm[Hg] [facility] 00:00:00 Body Weight 2021-07-30 2898 [oz_av] [facility] 00:00:00 BP Diastolic 2021-07-26 70 mm[Hg] [facility] 00:00:00 Height 2021-07-26 72 [in_i] [facility] 00:00:00 BMI (Body Mass 2021-07-26 24.6 kg/m2 [facility] 00:00:00 BP Systolic 2021-07-26 129 mm[Hg] [facility] 00:00:00 Body Weight 2021-07-26 2898 [oz_av] [facility] 00:00:00 BP Diastolic 2021-07-18 74 mm[Hg] [facility] 00:00:00 Height 2021-07-18 72 [in_i] [facility] 00:00:00 BMI (Body Mass 2021-07-18 24.8 kg/m2 [facility] 00:00:00 BP Systolic 2021-07-18 124 mm[Hg] [facility] 00:00:00 Body Weight 2021-07-18 2928 [oz_av] [facility] 00:00:00 BP Diastolic 2021-07-05 75 mm[Hg] [facility] 00:00:00 Height 2021-07-05 72 [in_i] [facility] 00:00:00 BMI (Body Mass 2021-07-05 24.8 kg/m2 [facility] 00:00:00 BP Systolic 2021-07-05 138 mm[Hg] [facility] 00:00:00 Body Weight 2021-07-05 2928 [oz_av] [facility] 00:00:00 BP Diastolic 2021-07-02 64 mm[Hg] [facility] 00:00:00 Height 2021-07-02 72 [in_i] [facility] 00:00:00 BMI (Body Mass 2021-07-02 24.8 kg/m2 [facility] 00:00:00 BP Systolic 2021-07-02 118 mm[Hg] [facility] 00:00:00 Body Weight 2021-07-02 2928 [oz_av] [facility] 00:00:00 BP Diastolic 2021-06-25 61 mm[Hg] [facility] 00:00:00 Height 2021-06-25 72 [in_i] [facility] 00:00:00 BMI (Body Mass 2021-06-25 24.8 kg/m2 [facility] 00:00:00 BP Systolic 2021-06-25 109 mm[Hg] [facility] 00:00:00 Body Weight 2021-06-25 2928 [oz_av] [facility] 00:00:00 BP Diastolic 2021-06-14 70 mm[Hg] [facility] 00:00:00 BP Systolic 2021-06-14 122 mm[Hg] [facility] 00:00:00 Body Weight 2021-06-14 2928 [oz_av] [facility] 00:00:00 BP Diastolic 2021-06-11 87 mm[Hg] [facility] 00:00:00 Height 2021-06-11 72 [in_i] [facility] 00:00:00 BMI (Body Mass 2021-06-11 25.1 kg/m2 [facility] 00:00:00 BP Systolic 2021-06-11 138 mm[Hg] [facility] 00:00:00 Body Weight 2021-06-11 2960 [oz_av] [facility] 00:00:00 BP Diastolic 2021-06-04 78 mm[Hg] [facility] 00:00:00 Height 2021-06-04 72 [in_i] [facility] 00:00:00 BMI (Body Mass 2021-06-04 25.1 kg/m2 [facility] 00:00:00 BP Systolic 2021-06-04 119 mm[Hg] [facility] 00:00:00 Body Weight 2021-06-04 2960 [oz_av] [facility] 00:00:00 BP Diastolic 2021-05-30 93 mm[Hg] [facility] 00:00:00 Height 2021-05-30 72 [in_i] [facility] 00:00:00 BMI (Body Mass 2021-05-30 25.1 kg/m2 [facility] 00:00:00 BP Systolic 2021-05-30 125 mm[Hg] [facility] 00:00:00 Body Weight 2021-05-30 2960 [oz_av] [facility] 00:00:00 BP Diastolic 2021-05-28 78 mm[Hg] [facility] 00:00:00 Height 2021-05-28 72 [in_i] [facility] 00:00:00 BMI (Body Mass 2021-05-28 25.1 kg/m2 [facility] 00:00:00 BP Systolic 2021-05-28 136 mm[Hg] [facility] 00:00:00 Body Weight 2021-05-28 2960 [oz_av] [facility] 00:00:00 Systolic blood 2021-05-08 120 mm[Hg] [facility] 05:18:00 [facility] Diastolic blood 2021-05-08 71 mm[Hg] [facility] 05:18:00 [facility] Heart rate 2021-05-08 106 /min [facility] 05:18:00 [facility] Body temperature 2021-05-08 36.89 Ap[place]va [facility] 05:18:00 [facility] Respiratory rate 2021-05-08 24 /min [facility] 05:18:00 [facility] Oxygen saturation 2021-05-08 98 /min [facility] in Arterial blood 05:18:00 [facility] by Pulse oximetry Branch Body height 2021-05-07 177.8 cm [facility] 13:22:00 [facility] Body weight 2021-05-07 83.915 kg [facility] of 13:22:00 [facility] BMI 2021-05-07 26.54 kg/m2 [facility] 13:22:00 [facility] Systolic blood 2020-07-12 126 mm[Hg] [facility] pressure 10:00:00 [facility] Diastolic blood 2020-07-12 72 mm[Hg] [facility] 10:00:00 [facility] Heart rate 2020-07-12 95 /min [facility] 10:00:00 [facility] Respiratory rate 2020-07-12 16 /min [facility] 10:00:00 [facility] Oxygen saturation 2020-07-12 97 /min [facility] in Arterial blood 10:00:00 [facility] by Pulse oximetry Branch Body temperature 2020-07-12 36.39 [place] [facility] 08:23:00 [facility] Body height 2020-07-12 177.8 cm [facility] 08:23:00 [facility] Body weight 2020-07-12 90.719 kg [facility] 08:23:00 [facility] BMI 2020-07-12 28.70 kg/m2 [facility] 08:23:00 [facility] Systolic blood 2020-07-12 126 mm[Hg] [facility] pressure 10:00:00 [facility] Diastolic blood 2020-07-12 72 mm[Hg] [facility] 10:00:00 [facility] Heart rate 2020-07-12 95 /min [facility] 10:00:00 [facility] Respiratory rate 2020-07-12 16 /min [facility] 10:00:00 [facility] Oxygen saturation 2020-07-12 97 /min [facility] in Arterial blood 10:00:00 [facility] by Pulse oximetry [place] Body temperature 2020-07-12 36.39 [place] [facility] 08:23:00 [facility] Body height 2020-07-12 177.8 cm [facility] 08:23:00 [facility] Body weight 2020-07-12 90.719 kg [facility] 08:23:00 [facility] BMI 2020-07-12 28.70 kg/m2 [facility] 08:23:00 [facility] Systolic blood 2018-11-05 147 mm[Hg] [facility] 08:58:00 [facility] Diastolic blood 2018-11-05 105 mm[Hg] [facility] 08:58:00 [facility] Heart rate 2018-11-05 104 /min [facility] 08:58:00 [facility] Body temperature 2018-11-05 36.78 [place]ur[place] [facility] 08:58:00 [facility] Respiratory rate 2018-11-05 20 /min [facility] 08:58:00 [facility] Oxygen saturation 2018-11-05 97 /min [place] [facility] in Arterial blood 08:58:00 [facility] by Pulse oximetry [place] Body weight 2018-11-05 77.111 kg [facility] of 01:36:00 [facility] BMI 2018-11-05 24.39 kg/m2 [facility] 01:36:00 [facility] Systolic blood 2018-11-05 147 mm[Hg] [facility] 08:58:00 [facility] Diastolic blood 2018-11-05 105 mm[Hg] [facility] 08:58:00 [facility] Heart rate 2018-11-05 104 /min [facility] of 08:58:00 [facility] Body temperature 2018-11-05 36.78 [place]va [facility] 08:58:00 [facility] Respiratory rate 2018-11-05 20 /min [place] [facility] 08:58:00 [facility] Oxygen saturation 2018-11-05 97 /min [facility] in Arterial blood 08:58:00 [facility] by Pulse oximetry [place] Body weight 2018-11-05 77.111 kg [place] of 01:36:00 [facility] BMI 2018-11-05 24.39 kg/m2 [facility] 01:36:00 [facility] Systolic blood 2021-11-13 106 mm[Hg] [facility] pressure 12:15:00 [facility] Diastolic blood 2021-11-13 70 mm[Hg] [facility] pressure 12:15:00 [facility] Heart rate 2021-11-13 81 /min [facility] 12:15:00 [facility] Respiratory rate 2021-11-13 18 /[facility] 12:15:00 [facility] Body temperature 2021-11-[address] [facility] 11:00:00 [facility] Center Oxygen saturation 2021-11-13 97 /min [facility] Arterial blood 11:00:00 [facility] by Pulse oximetry Systolic blood 2021-11-13 169 mm[Hg] [facility] 04:25:05 Hospital Diastolic blood 2021-11-13 105 mm[Hg] [facility] 04:25:05 Hospital Heart rate 2021-11-13 140 /min [facility] 04:25:05 [facility] Body temperature 2021-11-13 36.44 [facility] 04:25:05 [facility] Respiratory rate 2021-11-13 18 /min [facility] 04:25:05 [facility] Oxygen saturation 2021-11-13 97 /min [facility] in Arterial blood 04:25:05 Hospital by Pulse oximetry Body height 2021-11-[address] [facility] 03:18:00 [facility] Center Body weight 2021-11-[address] [facility] 03:18:00 [facility] Center BMI 2021-11-13 27.98 kg/m2 [facility] 03:18:00 [facility] Center Systolic blood 2021-10-20 126 mm[Hg] [facility] 23:15:00 Hospital Diastolic blood 2021-10-20 81 mm[Hg] [facility] 23:15:00 [facility] Heart rate 2021-10-20 75 /min [facility] 23:15:00 [facility] Body temperature 2021-10-20 36.89 [facility] 23:15:00 [facility] Respiratory rate 2021-10-20 18 /min [facility] 23:15:00 [facility] Oxygen saturation 2021-10-20 100 /min [facility] in Arterial blood 23:15:00 Hospital by Pulse oximetry Body height 2021-10-20 177.8 cm [facility] 17:43:00 Hospital Body weight 2021-10-20 83.915 kg [facility] 17:43:00 Hospital BMI 2021-10-20 26.54 kg/m2 [facility] 17:43:00 Hospital Oxygen saturation 2020-11-16 98 /min [facility] in Arterial blood 16:00:00 [facility] Pulse oximetry Systolic blood 2020-11-16 124 mm[Hg] [facility] pressure 16:00:00 Hospital Diastolic blood 2020-11-16 64 mm[Hg] [facility] pressure 16:00:00 Hospital Heart rate 2020-11-16 78 /min [facility] 16:00:00 Hospital Body temperature 2020-11-16 36.67 Apurva [facility] 16:00:00 [facility] Respiratory rate 2020-11-16 18 /min [facility] 16:00:00 [facility] Body height 2020-11-14 182.9 cm [facility] 20:23:00 [facility] Body weight 2020-10-22 77.111 kg [facility] 21:36:00 [facility] BMI 2020-10-22 23.06 kg/m2 [facility] 21:36:00 Hospital Procedures Procedure Date / Time Performing Clinician Source Performed CT MAXILLOFACIAL/MANDIBLE 2022-01-04 19:24:06 Gamal Monroy [facility] W CONTRAST [facility] URINALYSIS 2022-01-04 19:10:00 Porfirio [facility] COMP. METABOLIC PANEL 2022-01-04 18:29:00 Gamal Monroy [facility] ([id number]) [facility] CBC WITH DIFF 2022-01-04 18:29:00 Gamal [facility] CONSENT/REFUSAL FOR 2021-12-27 16:19:47 Doctor Unassigned, [facility] DIAGNOSIS AND TREATMENT [employer] [facility] EXTERNAL PROVIDER - ADC 2021-12-10 05:01:00 Doctor Unassigned, [facility] REFERRAL [employer] [facility] URINALYSIS 2021-12-01 02:04:00 Michael Phillips [facility] SARS-COV2/RT-PCR ([facility] & 2021-11-13 17:18:00 Jewel Rodriguez [facility] REF LABS) [place] BLOOD CULTURE 2021-11-13 09:53:00 Jewel Rodriguez [facility] URINE CULTURE 2021-11-13 09:44:00 Bozena consuelo [facility] CBC W/PLT COUNT & AUTO 2021-11-13 09:44:00 Bozena Rachelconsuelo [facility] DIFFERENTIAL Center LACTIC ACID, VENOUS 2021-11-13 09:44:00 Rodriguez [facility] COMPREHENSIVE METABOLIC 2021-11-13 09:44:00 Rodriguez [facility] PROTHROMBIN TIME/INR 2021-11-13 09:44:00 Rodriguez [facility] APTT 2021-11-13 09:44:00 Rodriguez [facility] URINALYSIS W/ REFLEX 2021-11-13 09:44:00 Rodriguez consuelo [facility] URINE CULTURE Center ETHANOL 2021-11-13 09:44:00 Rodriguez [facility] CBC W/PLT COUNT & AUTO 2021-11-13 09:44:00 Bozena Rachelconsuelo Bowles [facility] BLOOD CULTURE 2021-11-13 09:43:00 [facility] ECG ED PRELIMINARY 2021-11-13 05:06:19 Adam Mullins [facility] INTERPRETATION Maximo ECG 12-LEAD 2021-11-13 05:04:42 [facility] URINE DRUGS OF ABUSE 2021-11-13 04:57:00 [facility] S[facility] Maximo ACETAMINOPHEN LEVEL 2021-11-13 04:57:00 Cordelia [facility] Maximo SALICYLATE LEVEL 2021-11-13 04:57:00 [facility] Maximo ALCOHOL LEVEL, BLOOD 2021-11-13 04:57:00 [facility]imo COMPREHENSIVE METABOLIC 2021-11-13 04:57:00 Adam Mullins [facility] PANEL Maximo ESTIMATED GFR 2021-11-13 04:57:[facility] URINE CULTURE 2021-11-13 04:56:00 [facility] Maximo HC COMPLETE BLD COUNT 2021-11-13 04:56:00 [facility] W/AUTO DIFF Maximo LACTIC ACID LEVEL, SEPSIS 2021-11-13 04:56:00 [facility] - NOW AND REPEAT 2X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 2021-01-31 INFLUENZA VACCINE [facility] Test 17:19:18 [code = INFLUENZA VACCINE] Future Scheduled 2021-01-31 COVID-19 VACCINE ([facility] - [facility] 17:19:18 Booster) [code = COVID-19 VACCINE (3 - Booster)] Future Scheduled 2020-11-14 COVID-19 VACCINE (2 [facility] Pfizer series) [code = Medic al Center COVID-19 VACCINE (2 - Pfizer series)] Future Scheduled [address] [facility] Test [facility]:00 (procedure) [code = [facility] Center [id number]] Future Scheduled 2004 DTAP/TDAP/TD VACCINES [facility] Test 00:00:00 (1 - Tdap) [code = Medical C enter DTAP/TDAP/TD VACCINES (1 - Tdap)] Future Scheduled 2003-09-21 HEPATITIS C SCREENING [facility] Test 00:00:00 [code = HEPATITIS C Medical Center SCREENING] Encounters Start End Encounter Admission Attending Care Care Encounter Source Date/Time Date/Time Type Type Clinicians Facility Department ID 2021-11-27 Emergency HFD HFD [id number] [facility] - 11:46:56 [facility] 2021-11-23 Outpatient [facility] [id number] [place] 06:49:06 [id number] [facility] 2021-11-21 Outpatient [facility] [id number] [place] 16:46:21 [id number] [facility] 2021-11-05 Outpatient [facility] [id number] [place] 01:21:51 [id number] [facility] 2021-10-06 Outpatient [facility] [id number] [place] 00:08:22 [id number] [facility] 2021-06-23 Outpatient [facility] [id number] [place] 01:45:03 [id number] [facility] 2021-03-14 Outpatient 3 [id number] E[facility] CARLENE [id number] [facility] 13:33:41 [facility] [place] 2021-03-14 Outpatient 3 [id number] E[facility] REF [id number] [facility] 13:33:01 [facility] [place] 2021-02-11 Inpatient ATASSI, [facility] [id number] H arris 00:00:00 [facility] 2021-02-11 Inpatient [facility] [id number] H arris 00:00:00 [facility] 2021-01-24 Inpatient [facility] [id number] Philippe [place] 07:00:09 VANE Rocha [facility] 2021-01-24 Inpatient [facility] [id number] [place] 07:00:09 VANE Rocha [facility] 2021-01-22 Inpatient [facility] [id number] H arris 00:00:00 [facility] 2021-01-22 Inpatient [facility] [id number] H arris 00:00:00 [facility] 2021-01-21 Inpatient [facility] [id number] H arris 00:00:00 [facility] 2021-01-21 Inpatient [facility] [id number] H arris 00:00:00 [facility] 2021-01-20 Inpatient [facility] [id number] H arris 00:00:00 [facility] 2021-01-20 Inpatient [facility] [id number] H arris 00:00:00 [facility] 2021-01-18 Inpatient [facility] [id number] H arris 00:00:00 [facility] 2021-01-18 Inpatient [facility] [id number] H arris 00:00:00 [facility] 2021-01-17 Inpatient [facility] [id number] H arris 00:00:00 [facility] 2021-01-17 Inpatient [facility] [id number] H arris 00:00:00 [facility] 2021-01-16 Inpatient [facility] [id number] H arris 00:00:00 [facility] 2021-01-16 Inpatient [facility] [id number] H arris 00:00:00 [facility] 2021-01-15 Inpatient [facility] [id number] [place] 00:00:00 [facility] 2021-01-15 Inpatient [facility] [id number] [place] 00:00:00 [facility] 2021-01-13 Inpatient [facility] [id number] H arris 00:00:00 [facility] 2021-01-13 Inpatient [facility] [id number] H arris 00:00:00 [facility] 2021-01-12 Inpatient [facility] [id number] H arris 00:00:00 [facility] 2021-01-12 Inpatient [facility] [id number] H arris 00:00:00 [facility] 2021-01-11 Inpatient [facility] [id number] H arris 00:00:00 [facility] 2021-01-11 Inpatient [facility] [id number] H arris 00:00:00 [facility] 2021-01-10 Inpatient [facility] [id number] H arris 00:00:00 [facility] 2021-01-10 Inpatient [facility] [id number] H arris 00:00:00 [facility] 2021-01-09 Inpatient [facility] [id number] H arris 00:00:00 [facility] 2021-01-09 Inpatient [facility] [id number] H arris 00:00:00 [facility] 2021-01-08 Inpatient YULI, [facility] [id number] [place] 00:00:00 [facility] 2021-01-08 Inpatient YULI, [facility] [id number] [place] 00:00:00 [facility] 2021-01-06 Inpatient [facility] [id number] H arris 00:00:00 [facility] 2021-01-06 Inpatient [facility] [id number] H arris 00:00:00 [facility] 2021-01-05 Inpatient YULI, [facility] [id number] [place] 00:00:00 [facility] 2021-01-05 Inpatient YULI, [facility] [id number] [place] 00:00:00 [facility] 2021-01-04 Inpatient YULI, [facility] [id number] [place] 00:00:00 [facility] 2021-01-04 Inpatient YULI, [facility] [id number] [place] 00:00:00 [facility] 2021-01-03 [facility] [id number] [place] 00:00:00 [facility] 2021-01-03 Inpatient YULI, [facility] [id number] [place] 00:00:00 [facility] 2021-01-02 Inpatient [facility] [id number] H arris 00:00:00 [facility] 2021-01-02 Inpatient [facility] [id number] H arris 00:00:00 [facility] 2020-12-30 Inpatient 1 MAREK, [facility] [id number] H arris 22:32:00 BUSHRA Reid 2020-12-30 [facility] [id number] [place] 00:00:00 [facility] 2020-12-30 [facility] [id number] [place] 00:00:00 [facility] 2020-12-30 [facility] [id number] [place] 00:00:00 [facility] 2020-12-30 [facility] [id number] [place] 00:00:00 [facility] 2022-01-04 2022-01-04 Emergency X AUFDERHEIDE [facility] ERT [id number] Univers 11:54:00 15:21:00 , GAMAL ity of [facility] 2022-01-04 2022-01-04 Emergency Aufderheide [facility] 1.2.840.114 [id number] Univers 11:54:00 15:21:00 , Gamal VIVAS 350.1.13.10 i ty of [facility] [id number] [id number] [facility] [address] 2022-01-03 2022-01-03 Nurse Karly Martinez 1.2.840.114 [id number] Univers 00:00:00 00:00:00 Triage DUDLEY 350.1.13.10 it y of [facility] 4.2.7.2.686 Jose R as [id number] [facility] [address] [place] 2022-01-02 2022-01-02 Outpatient R DERRICK, [facility] [id number] Univers 00:00:00 00:00:00 CHAVA lopez f [facility] 2021-12-27 2021-12-27 Outpatient R DERRICK, [facility] [id number] Univers 10:20:00 10:48:[address] [facility] 2021-12-27 2021-12-27 Office Derrick, [facility] 1.2.840.114 [id number] Univers 10:20:00 10:48:50 Visit Chava VIVAS 350.1.13.10 ity of [facility] [id number] [facility] [id number] Mi dical NAL 059 [facility] 2021-12-27 2021-12-27 Orders Doctor CASTANEDA 1.2.840.114 [id number] Univers 00:00:00 00:00:00 Only Unassigned, DUDLEY 350.1.13.10 ity of [employer] 4.2.7.2.686 Jose R as [phone] [facility] [address] 2021-12-10 2021-12-10 Orders Doctor CASTANEDA 1.2.840.114 [id number] Univers 00:00:00 00:00:00 Only Unassigned, DUDLEY 350.1.13.10 ity of [employer] [facility] 4.2.7.2.686 Jose R as [id number] [facility] [address] 2021-11-30 2021-11-30 Emergency X ALLYN [facility] ERT [id number] Univers 20:05:00 23:00:00 MICHAEL ity of [facility] 2021-11-30 2021-11-30 Emergency ShwethaFormerly [facility] 1.2.470.615 [id number] Univers 20:05:00 23:00:00 Sckalee Vizcarra [place] 350.1.13.10 ity of [place]2.7.2.[place] [id number] [facility] [address] 2021-11-25 2021-11-26 [facility] [id number] [place] 03:40:00 11:57:00 [facility] 2021-11-26 2021-11-26 Outpatient [facility] [id number] [place] 00:00:00 00:00:00 [facility] 2021-11-25 2021-11-25 Emergency 1 MACHELLEUNG, [facility] [id number] [place] 03:40:00 03:40:00 [facility] 2021-11-24 2021-11-25 Outpatient Kaden, [facility] [id number] 475 22:46:52 02:24:00 Orquidea [facility] 2021-11-24 2021-11-25 Emergency E KADEN, [facility] [address] [facility] 22:46:00 02:24:00 ORQUIDEA 2021-11-25 2021-11-25 [facility] [id number] [facility] 00:00:00 00:00:00 [facility] 350.1.13.10 it y of FAMILY 4.2.7.2.686 [facility] [phone] Med [address] 2021-11-24 2021-11-24 Outpatient Harvinder, [facility] [id number] 475 16:41:54 19:45:00 Giovany 11 [place] 2021-11-24 2021-11-24 Emergency E NDUM, [facility] 75[address] [facility] 16:41:00 19:45:00 GIOVANY 2021-11-24 2021-11-24 Outpatient Thelma, [facility] [id number] 05:39:21 12:05:00 Hashim Q 10 2021-11-24 2021-11-24 Emergency E THELMA, [facility] 7510 [facility] 05:39:00 12:05:00 HASHIM 2021-11-23 2021-11-23 Outpatient Alexey, [facility] [id number] 19:10:11 23:01:00 Elfego J 09 2021-11-23 2021-11-23 Emergency E ALEXEY, [facility] [id number] 19:10:00 23:01:00 ELFEGO 2021-11-23 2021-11-23 Outpatient Azael, [facility] [address] [id number] 05:48:29 14:18:00 Elis 08 [facility] 2021-11-23 2021-11-23 Emergency E AZAEL, [facility] [address] [id number] [facility] 05:48:00 14:18:00 ELIS 2021-11-20 2021-11-20 Telephone Iglesia [facility] [id number] [id number] Univers 00:00:00 00:00:00 [facility] 350.1.13.10 it y of FAMILY 4.2.7.2.686 [facility] [id number] Med ical TALIB 044 [facility] 2021-11-13 2021-11-13 Emergency Bozena [facility] [id number] [facility] 03:28:00 19:48:00 [facility] 2021-11-13 2021-11-13 Emergency ER RODRIGUEZ, [facility] Emergency [id number] SLE 03:28:00 19:48:00 [facility] 2021-11-12 2021-11-13 Emergency Mullins, 1.2.840.1 [id number] Methodi 23:27:00 02:09:[address] [facility] 3.430.2.7 Hospit a .3.815281 l .8 2021-11-13 2021-11-13 Travel [facility] [id number] [facility] 00:00:00 00:00:00 [facility] 2021-11-13 2021-11-13 Travel 1.2.840.1 1.2.749.234 [id number] Methodi 00:00:00 00:00:[address] 3.430.2.7 0.2.7.3.698 spita .3.048545 084.8 l .8 2021-11-12 2021-11-[address] [facility] [id number] [place] 00:00:00 00:00:00 ADAM 674 Krysta llanos 2021-11-05 2021-11-12 Outpatient Alden [facility] [id number] 20:05:11 15:42:00 Tajuddin 06 Qasimali 2021-11-05 2021-11-12 Outpatient E ALDEN [facility] MED [id number] [facility] 20:05:00 15:42:00 TAJUDDEANDRE 2021-11-05 2021-11-05 Outpatient Tarik [facility] [id number] 20:05:11 20:05:11 José Antonio 06 Manilal 2021-11-04 2021-11-05 Outpatient Nasir [facility] [id number] 21:09:00 01:37:00 Perez Kevin Murtaza 2021-11-04 2021-11-05 Emergency E NASIR [facility] [address] [facility] 21:09:00 01:37:00 PEREZ 2021-11-04 2021-11-04 Emergency A080 HORACIO HORACIO [id number] [place] 16:32:31 16:32:31 2021-11-04 2021-11-04 Telephone Iglesia [facility] 1.2.346.684 [id number] Univers 00:00:00 00:00:00 [employer] 350.1.13.10 it y of [place] [id number] MEDICINE [id number] Med [address] 2021-10-27 2021-10-[address] [id number] 475 19:02:05 23:41:00 [facility] 2021-10-27 2021-10-27 Emergency E ALDEN [facility] BL [id number] [facility] 19:02:00 23:41:00 [facility] 2021-10-20 2021-10-20 Emergency Celestina Louis 1.2.840.1 [id number] Methodi 12:41:00 18:20:[address] 3.430.2.7 Hospit a .3.444908 l .8 2021-10-20 2021-10-20 Travel 1.2.840.1 1.2.071.329 [id number] Methodi 00:00:00 00:00:[address] 3.430.2.7 0.2.7.3.698 Ho spita .3.734936 084.8 l .8 2021-10-20 2021-10-20 Emergency CELESTINA [facility] 064 [id number] [place] 00:00:00 00:00:[address] 2021-10-20 2021-10-20 Travel 1.2.840.1 1.2.488.974 [id number] Methodi 00:00:00 00:00:[address] 3.430.2.7 0.2.7.3.698 Ho spita .3.821871 084.8 l .8 2021-10-17 2021-10-17 Outpatient _[facility]Tod PRIV PRIV [id number] [facility] 00:00:00 00:00:00 d_J [id number] Medica l 2021-10-10 2021-10-10 Orders Doctor TONYA 1.2.840.114 [id number] Univers 00:00:00 00:00:00 Only Unassigned, DUDLEY 350.1.13.10 ity of [employer] [facility] 4.2.7.2.686 Jose R as [id number] [place] [address] [place] 2021-10-07 2021-10-08 Emergency X YARIMA, [facility] [facility] [id number] Univers 18:27:00 04:28:00 MICHAEL pinto [facility] 2021-10-07 2021-10-08 Emergency Amari Jeronimo [facility] 1.2. 840.114 [id number] Univers 18:27:00 04:28:00 Michael Phillips SANGEETHA [id number] ity [facility] [id number] [facility] [id number] [address] 2021-10-05 2021-10-06 Emergency X Gaurang POWERS [facility] ERT [id number] Univers 17:45:00 06:55:00 ity [facility] 2021-10-05 2021-10-06 Emergency Gaurang Powers [facility] 1.2.840.114 [id number] Univers 17:45:00 06:55:00 Arely VIVAS 350.1.13.10 i ty [facility] 4.2.7.2.686 [facility] [id number] [address] 2021-10-01 2021-10-02 Emergency X ALLYN [facility] ERT [id number] Univers 23:42:00 04:47:00 MICHAEL pinto [facility] 2021-10-01 2021-10-02 Emergency Joy Barillas [facility] 1.2.840 .114 [id number] Univers 23:42:00 04:47:00 Michael Phillips SANGEETHA [id number] ity [facility] 4.2.7.2.686 [facility] [id number] [address] 2021-09-23 2021-09-23 Outpatient [facility]_Tod PRIV PRIV [id number] [facility] 00:00:00 00:00:00 d_J [id number] Medica l 2021 2021 Outpatient [facility]_Tod PRIV PRIV [id number] [facility] 00:00:00 00:00:00 d_J [id number] Medica l 2021 2021 Outpatient Michael, PRIV PRIV [id number] c-1 00:00:00 00:00:00 Marina cee-11ed-b [id number] 2021 2021 Marina [facility] [id number] [facility] 00:00:00 00:00:00 SABRINA Rodriguez: Health - Med ical [address] [address] , Ph. 2021-09-17 2021-09-17 Orders Doctor TONYA 1.2.840.114 [id number] 00:00:00 00:00:00 Only Unassigned, DUDLEY [id number] ity of [employer] [facility] 4.2.7.2.686 Jose R as [id number] [place] [address] [address] 2021-09-16 2021-09-16 Outpatient [facility]_Tod PRIV PRIV [id number] [facility] 00:00:00 00:00:00 d_J [id number] Medica l 2021-09-13 2021-09-13 Outpatient GC_[facility]HC_Tod PRIV PRIV [id number] [facility] 00:00:00 00:00:00 d_J [id number] Medica l 2021-09-13 2021-09-13 Outpatient Michael PRIV PRIV [id number] 00:00:00 00:00:00 Marina 72a-11ed-8 [id number] 2021-09-13 2021-09-13 Marina [facility] [id number] [facility] 00:00:00 00:00:00 SABRINA Rodriguez: Health - Med ical [address] [address] , Ph. 2021-09-12 2021-09-12 Outpatient GC_[facility]_Tod PRIV PRIV [id number] [facility] 00:00:00 00:00:00 d_J [id number] Medica l 2021-09-12 2021-09-12 Outpatient Lilly, PRIV PRIV [id number] 00:00:00 00:00:00 Jonah Garcia 1ad-11ed-9 [id number] 2021-09-12 2021-09-12 Jonah Garcia [facility] 28 [facility] 00:00:00 00:00:00 Lilly [facility] - Med ical MD: [address] [address] , Ph. 2021-09-11 2021-09-11 Outpatient [facility]_Tod PRIV PRIV [id number] [facility] 00:00:00 00:00:00 d_J [id number] Medica l 2021-09-03 2021-09-03 Outpatient [facility]_Tod PRIV PRIV [id number] [facility] 10:03:00 10:03:00 d_J [id number] Medica l 2021-09-03 2021-09-03 Outpatient Michael [facility] [id number] [id number] 00:00:00 00:00:00 Marina 8-11ed-9 [id number] 2021-09-03 2021-09-03 [facility] [id number] [facility] 00:00:00 00:00:00 SABRINA Rodriguez: Health - Med ical [address] [address] , Ph. 2021-08-30 2021-08-30 Outpatient GC_[facility]_Tod PRIV PRIV [id number] [facility] 08:32:00 08:32:00 d_J [id number] Medica l 2021-08-28 2021-08-28 Telephone DEMARCO Murillo 1.2.840.114 [id number] Univers 00:00:00 00:00:00 [facility] [id number] itcarmelina fregoso [place] 4.2.7.2.686 Jose R as ANSLEY?BLEA [id number] Mi ton[address] MEDICAL OFFICE [facility] 2021-08-28 2021-08-28 Orders Doctor TONYA 1.2.840.114 [id number] Univers 00:00:00 00:00:00 Only Unassigned, DUDLEY 350.1.13.10 ity of [employer] [facility] 4.2.7.2.686 Jose R as [phone] [place] [address] [address] 2021-08-25 2021-08-25 Outpatient [facility]Tod PRIV PRIV [id number] [facility] 11:00:00 11:00:00 d_J [id number] Medica l 2021-08-23 2021-08-23 Outpatient GC[facility]_Tod PRIV PRIV [id number] [facility] 10:25:00 10:25:00 d_J [id number] Medica l 2021-08-22 2021-08-22 Outpatient GC_[facility]_Tod PRIV PRIV [id number] [facility] 11:45:00 11:45:00 d_J [id number] Medica l 2021-08-19 2021-08-19 Outpatient [facility]Tod PRIV PRIV [id number] [facility] 12:00:00 12:00:00 d_J [id number] Medica l 2021-08-16 2021-08-16 Outpatient [facility]_Tod PRIV PRIV [id number] [facility] 04:10:00 04:10:00 d_J [id number] Medica l 2021-08-16 2021-08-16 Marina MONTOYA [facility] - [facility] [id number] [facility] 00:00:00 00:00:00 SABRINA Rodriguez: Health - Med ical [address] [address] , Ph. 2021-08-16 2021-08-16 Outpatient Michael [facility] PRIV [id number] a-[id number] 00:00:00 00:00:00 Marina 068-11ed-8 [id number] 2021-08-14 2021-08-14 Outpatient GC_[facility]_Tod PRIV PRIV [id number] [facility] 09:12:00 09:12:00 d_J [id number] Medica l 2021-08-14 2021-08-14 [facility] [id number] [facility] 00:00:00 00:00:00 SABRINA Rodriguez: Health - Med ical [address] [address] , Ph. 2021-08-14 2021-08-14 Outpatient Michael, [facility] PRIV [id number] c-f 00:00:00 00:00:00 Marina df1-11ec-a [id number] 2021-08-11 2021-08-11 Outpatient [facility]Tod PRIV PRIV [id number] [facility] 10:44:00 10:44:00 d_J [id number] Medica l 2021-08-09 2021-08-09 Outpatient GC[facility]_Tod PRIV PRIV [id number] [facility] 12:22:00 12:22:00 d_J [id number] Medica l 2021-08-09 2021-08-09 [facility] [id number] [facility] 00:00:00 00:00:00 SABRINA Rodriguez: Health - Med ical [address] [address] , Ph. 2021-08-08 2021-08-08 Outpatient [facility]_Tod PRIV PRIV [id number] [facility] 04:53:00 04:53:00 d_J [id number] Medica l 2021-08-05 2021-08-05 Outpatient [facility]Tod PRIV PRIV [id number] [facility] 11:07:00 11:07:00 d_J [id number] Medica l 2021-08-02 2021-08-02 Outpatient [facility]_Tod PRIV PRIV [id number] [facility] 09:06:00 09:06:00 d_J [id number] Medica l 2021-08-02 2021-08-02 [facility] [id number] [facility] 00:00:00 00:00:00 SABRINA Rodriguez: Health - Med ical [address] [address] , Ph. 2021-08-02 2021-08-02 Outpatient Michael PRIV PRIV [id number] [id number] 00:00:00 00:00:00 Marina 5bf-11ec-a [id number] 2021-07-30 2021-07-30 Outpatient GC[facility]_Tod PRIV PRIV [id number] [facility] 03:48:00 03:48:00 d_J [id number] Medica l 2021-07-30 2021-07-30 Marina [facility]IV [facility] [id number] [facility] 00:00:00 00:00:00 SABRINA Rodriguez: Health - Med ical [address] [address] , Ph. 2021-07-30 2021-07-30 Outpatient Michael PRIV PRIV [id number] [id number] 00:00:00 00:00:00 Marina 327-11ec-a [id number] 2021-07-26 2021-07-26 Outpatient GC[facility]_Tod PRIV PRIV [id number] [facility] 08:05:00 08:05:00 d_J [id number] Medica l 2021-07-26 2021-07-26 Marina PRIV [facility] [id number] [facility] 00:00:00 00:00:00 SABRINA Rodriguez: Health - Med ical [address] [address] , Ph. 2021-07-26 2021-07-26 Outpatient Michael PRIV PRIV [id number] a-f 00:00:00 00:00:00 Marina [id number] 2021-07-20 2021-07-20 Outpatient [facility]_Tod PRIV PRIV [id number] [facility] 10:41:00 10:41:00 d_J [id number] Medica l 2021-07-18 2021-07-18 Outpatient GC[facility]_Tod PRIV PRIV [id number] [facility] 02:03:00 02:03:00 d_J [id number] Medica l 2021-07-18 2021-07-18 Jonah Garcia [facility]IV [facility] [id number] [facility] 00:00:00 00:00:00 Lilly [facility] - Med ical MD: [address] [address] , Ph. 2021-07-18 2021-07-18 Outpatient Lilly, [facility] PRIV [id number] 00:00:00 00:00:00 Jonah Garcia 40c-11ec-9 [id number] 5437-05-30 2021-07-15 Outpatient GC_[facility]_Tod PRIV PRIV [id number] [facility] 10:43:00 10:43:00 d_J [id number] Medica l 2021-07-11 2021-07-11 Outpatient GC_[facility]_Tod PRIV PRIV [id number] [facility] 01:44:00 01:44:00 d_J [id number] Medica l 2021-07-05 2021-07-05 Outpatient GC_[facility]_Tod PRIV PRIV [id number] [facility] 09:29:00 09:29:00 d_J [id number] Medica l 2021-07-05 2021-07-05 Marina PRIV [facility] 520 [facility] 00:00:00 00:00:00 SABRINA Rodriguez: Health - Med ical [address] [address] , Ph. 2021-07-05 2021-07-05 Outpatient LINDSAY Rodriguez PRIV [id number] 00:00:00 00:00:00 Marina 04b-11ec-9 [id number] 2021-07-02 2021-07-02 Outpatient GC[facility]_Tod PRIV PRIV [id number] [facility] 10:48:00 10:48:00 d_J [id number] Medica l 2021-07-02 2021-07-02 Marina PRIV [facility] [id number] [facility] 00:00:00 00:00:00 SABRINA Rodriguez: Health - Med ical [address] [address] , Ph. 2021-07-02 2021-07-02 Outpatient Michael PRIV PRIV [id number] e-[id number] 00:00:00 00:00:00 Marina [id number] 2021-06-30 2021-06-30 Outpatient GC_[facility]_Tod PRIV PRIV [id number] [facility] 06:52:00 06:52:00 d_J [id number] Medica l 2021-06-25 2021-06-25 Outpatient GC_[facility]_Tod PRIV PRIV [id number] [facility] 01:28:00 01:28:00 d_J [id number] Medica l 2021-06-25 2021-06-25 Marina PRIV [facility] [id number] [facility] 00:00:00 00:00:00 SABRINA Rodriguez: Health - Med ical [address] [address] , Ph. 2021-06-25 2021-06-25 Outpatient Michael PRIV PRIV [id number] c-d 00:00:00 00:00:00 Marina 5fa-11ec-8 [id number] [id number] 2021-06-23 2021-06-23 Outpatient GC_[facility]_Tod PRIV PRIV [id number] [facility] 10:46:00 10:46:00 d_J [id number] Medica l 2021-06-18 2021-06-18 Outpatient GC_[facility]_Tod PRIV PRIV [id number] [facility] 01:40:00 01:40:00 d_J [id number] Medica l 2021-06-14 2021-06-14 Outpatient GC[facility]_Tod PRIV PRIV [id number] [facility] 08:35:00 08:35:00 d_J [id number] Medica l 2021-06-14 2021-06-14 Marina PRIV [facility] [id number] [facility] 00:00:00 00:00:00 SABRINA Rodriguez: Health - Med ical [address] [place] [address] , Ph. 2021-06-14 2021-06-14 Outpatient Michael PRIV PRIV [id number] 00:00:00 00:00:00 Marina [id number] 2919-04-26 2021-06-11 Outpatient GC[facility]_Tod PRIV PRIV [id number] [facility] 09:50:00 09:50:00 d_J [id number] Medica l 2021-06-11 2021-06-11 Marina PRIV [facility] [id number] [facility] 00:00:00 00:00:00 SABRINA Rodriguez: Health - Med ical [address] [place] [address] , Ph. 2021-06-11 2021-06-11 Outpatient Michael PRIV PRIV [id number] 2-[id number] 00:00:00 00:00:00 Marina [id number]-o [id number] 2021-06-06 2021-06-06 Outpatient GC_[facility]_Tod PRIV PRIV [id number] [facility] 01:01:00 01:01:00 d_J [id number] Medica l 2021-06-05 2021-06-05 Outpatient GC_[facility]_Tod PRIV PRIV [id number] [facility] 03:19:00 03:19:00 d_J [id number] Medica l 2021-06-04 2021-06-04 Outpatient GC_[facility]_Tod PRIV PRIV [id number] [facility] 01:42:00 01:42:00 d_J [id number] Medica l 2021-06-04 2021-06-04 Marina PRIV [facility] [id number] [facility] 00:00:00 00:00:00 SABRINA Rodriguez: Health - Med ical [address] , [place] [address] , Ph. 2021-06-04 2021-06-04 Outpatient Michael, PRIV PRIV [id number] 00:00:00 00:00:00 Marina 4ac-11ec-b [id number] 2021-06-04 2021-06-04 Outpatient Michael, PRIV PRIV [id number] a-f 00:00:00 00:00:00 Marina ecc-11ec-9 [id number] 2021-05-30 2021-05-30 Outpatient GC_[facility]_Tod PRIV PRIV [id number] [facility] 11:28:00 11:28:00 d_J [id number] Medica l 2021-05-30 2021-05-30 Jonah Garcia [facility]IV [facility]:00[facility]00 00:00:[facility] [address] , [place] [address] , Ph. 2021-05-30 2021-05-30 Outpatient Lilly, PRIV PRIV [id number] ac8-c 00:00:00 00:00:00 Jonah Garcia 0d5-29wu-a [id number] 2021-05-30 2021-05-30 Outpatient Lilly, PRIV PRIV [id number] 00:00:00 00:00:00 Jonah Garcia 2s8-32ha-c [id number] 2021-05-28 2021-05-28 Outpatient GC_[facility]_Tod PRIV PRIV [id number] [facility] 01:25:00 01:25:00 d_J [id number] Medica l 2021-05-28 2021-05-28 Marina PRIV [facility] [id number] [facility] 00:00:00 00:00:00 SABRINA Rodriguez: Health - Med ical [address] [facility] , [place] [address] , Ph. 2021-05-28 2021-05-28 Outpatient Michael, PRIV PRIV [id number] 6-[id number] 00:00:00 00:00:00 Marina 046-11ec-a [id number] 2021-05-28 2021-05-28 Outpatient Michael, PRIV PRIV [id number] 4-[id number] 00:00:00 00:00:00 Marina behavioral health worker-11ec-a [id number] 2021-05-27 2021-05-27 Outpatient GC_BA[facility]_Tod PRIV PRIV [id number] [facility] 03:48:00 03:48:00 d_J [id number] Medica l 2021-05-24 2021-05-24 Outpatient GC_BAHC_Spa PRIV PRIV [id number] [facility] 04:32:00 04:32:00 Samuel [id number] Medica l 2021-05-07 2021-05-08 Outpatient X OBED [facility] [id number] Univers 08:26:00 04:30:00 MARTIN pinto [facility] 2021-05-07 2021-05-08 Emergency Tono Roberto [facility] 1.2.840. 114 [id number] Univers 08:26:00 04:30:00 Martin Clay [place] 350.1.13.10 [facility] 4.2.7.2.686 [facility] [id number] [address] 2021-03-28 2021-03-28 Outpatient LORENE [facility] [id number] [place] 00:00:00 00:00:00 GALE maldonado 2021-03-20 2021-03-20 Outpatient PASCUAL MAHAN [facility] [id number] [place] 00:00:00 00:00:00 Health 2020-12-30 2021-02-28 Inpatient MAREK [facility] [id number] [place] 22:32:00 18:41:00 BUSHRA Booker 2020-12-30 2021-02-28 Inpatient MAREK, [facility] [id number] [place] 22:32:00 18:41:00 BUSHRA Booker 2021-02-15 2021-02-15 Inpatient HHS [facility] [id number] [place] 10:50:13 11:18:57 Health 2021-02-15 2021-02-15 Inpatient HHS [facility] [id number] [place] 10:50:13 11:18:57 Health 2021-02-14 2021-02-14 Inpatient HHS [facility] [id number] [place] 16:43:15 18:41:33 Health 2021-02-14 2021-02-14 Inpatient HHS [facility] [id number] [place] 16:43:15 18:41:33 Health 2021-02-14 2021-02-14 Inpatient HHS [facility] [id number] [place] 07:24:16 09:18:07 Health 2021-02-14 2021-02-14 Inpatient HHS [facility] [id number] [place] 07:24:16 09:18:07 Health 2021-01-31 2021-01-31 Inpatient HHS [facility] [id number] [place] 01:03:14 03:25:48 Health 2021-01-31 2021-01-31 Inpatient HHS [facility] [id number] [place] 01:03:14 03:25:48 Health 2021-01-25 2021-01-25 Inpatient HHS [facility] [id number] [place] 01:35:50 03:05:16 Health 2021-01-25 2021-01-25 Inpatient HHS [facility] [id number] [place] 01:35:50 03:05:16 Health 2021-01-23 2021-01-23 Inpatient [facility] [id number] [place] 02:10:17 04:59:36 Health 2021-01-23 2021-01-23 Inpatient HHS [facility] [id number] [place] 02:10:17 04:59:36 Health 2021-01-21 2021-01-21 Inpatient VIKASH, [facility] [id number] [place] 15:43:59 16:18:10 VANE He alth I 2021-01-21 2021-01-21 [id number] [place] 15:43:59 16:18:10 UMAMADAYANARA He alth I 2021-01-13 2021-01-13 Inpatient [facility] [id number] [place] 16:20:12 17:12:27 Health 2021-01-13 2021-01-13 Inpatient [facility] [id number] [place] 16:20:12 17:12:27 Health 2021-01-07 2021-01-07 Inpatient [facility] [id number] [place] 18:28:43 18:28:46 Health 2021-01-07 2021-01-07 Inpatient [facility] [id number] [place] 18:28:43 18:28:46 Health 2021-01-07 2021-01-07 Inpatient [facility] [id number] [place] 00:12:42 01:07:25 [facility] 2021-01-07 2021-01-07 Inpatient [facility] [id number] [place] 00:12:42 01:07:25 [facility] 2021-01-04 2021-01-04 Inpatient [facility] [id number] [place] 17:11:58 18:14:36 [facility] 2021-01-04 2021-01-04 Inpatient [facility] [id number] [place] 17:11:58 18:14:36 [facility] 2021-01-04 2021-01-04 Inpatient VERA, [facility] [id number] [place] 13:40:49 15:55:44 [facility] 2021-01-04 2021-01-04 Inpatient VERA, [facility] [id number] [place] 13:40:49 15:55:44 [facility] 2021-01-03 2021-01-03 Inpatient [facility] [id number] [place] 17:58:59 17:59:03 [facility] 2021-01-03 2021-01-03 Inpatient [facility] [id number] [place] 17:58:59 17:59:03 [facility] 2021-01-01 2021-01-01 Inpatient [facility] [id number] [place] 16:44:03 16:44:07 [facility] 2021-01-01 2021-01-01 Inpatient [facility] [id number] [place] 16:44:03 16:44:07 [facility] 2021-01-01 2021-01-01 Inpatient CARTER, [facility] [id number] [place] 08:36:00 09:12:12 [facility] 2021-01-01 2021-01-01 Inpatient EMMA, [facility] [id number] [place] 08:36:00 09:12:12 [facility] 2021-01-01 2021-01-01 Inpatient [facility] [id number] [place] 07:46:21 08:35:30 [facility] 2021-01-01 2021-01-01 Inpatient [facility] [id number] [place] 07:46:21 08:35:30 [facility] 2021-01-01 2021-01-01 Inpatient YULI, [facility] [id number] [place] 02:09:24 03:31:22 [facility] 2021-01-01 2021-01-01 Inpatient YULI, [facility] [id number] [place] 02:09:24 03:31:22 [facility] 2020-12-31 2020-12-31 Inpatient MAREK, [facility] [id number] [place] 05:17:16 06:34:53 BUSHRA Heal 2020-12-31 2020-12-31 Inpatient MAREK, [facility] [id number] [place] 05:17:16 06:34:53 BUSHRA Heal 2020-12-31 2020-12-31 Inpatient [facility] [id number] [place] 01:50:33 06:34:15 [facility] 2020-12-31 2020-12-31 Inpatient [facility] [id number] [place] 01:50:33 06:34:15 [facility] 2020-12-31 2020-12-31 Inpatient [facility] [id number] [place] 03:50:31 04:54:13 [facility] 2020-12-31 2020-12-31 Inpatient [facility] [id number] [place] 03:50:31 04:54:13 [facility] 2020-12-31 2020-12-31 Inpatient [facility] [id number] [place] 01:43:22 04:38:47 Health 2020-12-31 2020-12-31 Inpatient [facility] [id number] [place] 01:43:22 04:38:47 Health 2020-12-30 2020-12-30 Emergency [facility] [id number] [place] 22:46:36 23:04:47 Health 2020-12-30 2020-12-30 Emergency [facility] [id number] [place] 22:46:36 23:04:47 Health 2020-12-30 2020-12-30 Emergency [facility] [id number] [place] 22:46:20 23:04:03 Health 2020-12-30 2020-12-30 Emergency [facility] [id number] [place] 22:46:20 23:04:03 Health 2020-12-30 2020-12-30 Emergency [facility] [id number] [place] 22:47:41 23:03:11 Health 2020-12-30 2020-12-30 Emergency [facility] [id number] [place] 22:47:41 23:03:11 [facility] 2020-12-30 2020-12-30 Emergency LAKHWINDER, [facility] [id number] [place] 00:00:00 00:00:00 [facility] 2020-12-30 2020-12-30 Emergency LAKHWINDER, [facility] [id number] [place] 00:00:00 00:00:00 [facility] 2020-12-20 2020-12-20 Emergency Uziel, [facility] [id number] [facility] 06:26:00 16:34:[address] [place] [address] 2020-11-15 2020-11-16 Emergency Eusebia Bland 1.2.840 .1 [id number] Methodi 00:55:00 14:35:00 William Nunes 27262.1.[address] Mio Sorensen 3.430.2.7 Hospita .3.582737 l .8 2020-11-14 2020-11-14 Emergency Manju 1.2.840.1 [id number] Methodi 15:47:00 16:03:00 William Langston [address]34.1.[address] 3.430.2.7 Hospit a .3.081044 l .8 2020-10-22 2020-10-24 [facility] Dennis Wynn 1.2.840.1 [id number] Methodi 16:52:00 16:26:00 Encounter Madeleine Lauren 43303.1.[address] Jessica Awad 3.430.2.7 Hospita Lashaun Awad .3.446814 l .8 2020-10-16 2020-10-16 Emergency EM Crismon, [facility]CR MALIKA [id number] [facility] 00:20:00 08:00:00 [place] [facility] 2020-10-06 2020-10-06 Emergency EM Zia, HCAKW MALIKA [id number] [facility] 01:57:00 20:14:00 Jonny-Chin [facility] 2020-09-05 2020-09-05 Emergency EM [place] [facility] [id number] [facility] 11:17:00 18:22:00 21 [facility] 2020-09-03 2020-09-03 Emergency EM Pardo, [facility] MAL[facility] [id number] [facility] 03:35:00 15:00:00 Farhad Maradiaga [facility] 2020-09-02 2020-09-03 Emergency EM Kylah, Michael [facility] [id number] [facility] 23:16:00 01:53:00 82 [facility] 2020-08-11 2020-08-12 Emergency EM Giovanni-Aswad, [facility] [id number] [facility] 11:12:00 00:40:00 Naim 18 [facility] 2020-07-13 2020-07-15 Outpatient MER Ceballos [id number] 21:21:01 19:06:00 Jose Nguyen 2020-07-12 2020-07-12 Emergency [facility] [id number] 03:16:00 05:05:00 Divinekalee Carmita Sangeetha [id number] [place] [id number] [place] [id number] [facility] 2020-07-12 2020-07-12 Emergency [facility] [id number] [facility] 03:16:00 05:05:00 Michael Vizcarra Sangeetha [id number] [place] [id number] [facility] [id number] [facility] [address] [place] [address] 2020-07-12 2020-07-12 Emergency X [facility] ERT [id number] [facility] 03:16:00 05:05:00 MICHAEL pinto [facility] 2019-08-29 2019-09-01 Inpatient [facility] MALIKA [id number] [facility] 22:17:00 04:16:38 62 [facility] 2019-06-22 2019-06-24 Inpatient [facility] MALIKA [id number] [facility] 13:23:00 06:39:56 74 [facility] 2019-02-21 2019-02-21 Outpatient [facility] [id number] [place] 00:00:00 00:00:00 [facility] 2019-02-19 2019-02-19 Emergency [facility] TAMEKA [id number] 07:23:00 07:23:00 [facility] 2019-02-01 2019-02-01 Outpatient [facility] MED [id number] [place] 22:11:49 22:11:49 [facility] 2018-12-24 2018-12-26 Outpatient Isac Gar [facility] [id number] 19:23:07 22:45:00 R 02 2018-11-25 2018-11-28 Outpatient Ludiv[facility] [id number] 19:24:15 12:33:00 Arline Irby 2018-11-04 2018-11-05 Emergency [facility] [id number] 20:38:48 05:13:00 Brown Vivas [id number] [place] [address] [place] [address] [id number] [facility] 2018-11-04 2018-11-05 Emergency [facility] [id number] [facility] 20:38:48 05:13:00 Brown Vivas [id number] [address] of [place] [id number] [place] [address] [id number] 2018-10-18 2018-10-18 Emergency [facility] MED [id number] [place] 06:08:40 06:08:40 [facility] 2017-04-02 2017-04-02 Outpatient [facility] [id number] [place] 00:00:00 00:00:00 [facility] 2017-03-29 2017-03-29 Emergency [facility] [id number] [place] 00:00:48 00:00:48 [facility] 2017-03-28 2017-03-28 Outpatient Nancy [facility] [id number] 14:07:00 17:16:00 Melonie Burgess 2017-03-22 2017-03-22 Emergency E SAMANTHA, [facility] [id number] 11:46:00 11:46:00 [facility]16 2017-03-20 Inpatient Art AGUILAR, [facility] [id number] 20:46:00 13:41:00 Jonathon DIOP [facility] 2017-01-26 2017-01-26 Outpatient [facility] [id number] [facility] 00:00:00 00:00:00 Results Test Description Test Time Test Comments Results Result Comments Source COMP. METABOLIC PANEL (65802) 2022-01-04 18:53:39 Test Item Value Reference Range Interpretation Comme nts NA (test code = 7650704879) 135 mmol/L 135-145 K (test code = 7238111040) 3.7 mmol/L 3.5-5.0 CL (test code = 7469757405) 100 mmol/L 98-108 CO2 TOTAL (test code = 6837113200) 22 mmol/L 23-31 L AGAP (test code = 3997065027) 2-16 BUN (test code = 3082839210) 6 mg/dL 7-23 L GLUCOSE (test code = 2537444283) 81 mg/dL 70-110 CREATININE (test code = 0.54 mg/dL 0.60-1.25 L 5817920959) TOTAL BILI (test code = 1.0 mg/dL 0.1-1.5 4388068995) CALCIUM (test code = 5754993564) 8.9 mg/dL 8.6-10.6 T PROTEIN (test code = 8005691347) 6.9 g/dL 6.3-8.2 ALBUMIN (test code = 3397431439) 4.3 g/dL 3.5-5.0 ALK PHOS (test code = 0612417117) 88 U/L 34-122 ALTv (test code = 1742-6) 34 U/L 5-50 AST(SGOT) (test code = 1903127623) 55 U/L 13-40 H eGFR (test code = 0684732981) mL/min/1.73m2 GEORGIE (test code = GEORGIE) Association of Glomerular Filtration Rate (GFR) and Staging of Kidney Disease* + +-------- + ------+| GFR (mL/min/1.73 m2) ?| With Kidney Damage ?| ?Without Kidney Damage+ +-- + +| ?>90 ?| ?Stage one ?| ? Normal ?+ +------- + -------+| ?60-89 ?| ?Stage two ?| ? Decreased GFR ? + +-------- + ------+| ?30-59 ?| ?Stage three ?| ? Stage three ? + +-------- + ------+| ?15-29 ?| ?Stage four ? | ? Stage four ?+ +------- + -------+| ?<15 (or dialysis) ? ?| ?Stage five ? | ? Stage five ?+ +------- + -------+ *Each stage assumes the associated GFR [...] or abnormalities in imaging tests). Lab Interpretation (test code = Abnormal 82814-6) [facility] WITH [id number] 18:38:18 Test Item Value Reference Range Interpretation Comments WBC (test code = See_Comment [Automated 7155-2) message] The sy stem which generated this result transmitted reference range : 4.20 - 10.70 10*3/?L. The reference range was not used to interpret this result as normal/abnormal . RBC (test code = See_Comment [Automated 077-8) message] The sy stem which generated this result transmitted reference range : 4.26 - 5.52 10*6/?L. The reference range was not used to interpret this result as normal/abnormal . HGB (test code = 15.1 g/dL 12.2-16.4 718-7) HCT (test code = 43.1 % 38.4-49.3 4544-3) MCV (test code = 94.7 fL 81.7-95.6 787-2) MCH (test code = 33.2 pg 26.1-32.7 H 785-6) MCHC (test code = 35.0 g/dL 31.2-35.0 786-4) RDW-SD (test code = 43.6 fL 38.5-51.6 92575-6) RDW-CV (test code = 12.4 % 12.1-15.4 788-0) PLT (test code = See_Comment [Automated 777-3) message] The sy stem which generated this result transmitted reference range : 150 - 328 10*3/ ?L. The reference r johan was not used to interpret this result as normal/abnormal . MPV (test code = 8.9 fL 9.8-13.0 L 80811-5) NRBC/100 WBC (test See_Comment [Automat ed code = 6409133874) message] The system which generated this result transmitted reference range : 0.0 - 10.0 /100 WBCs. The refer ence range was not u sed to interpret th is result as normal/abnormal . NRBC x10^3 (test code See_Comment [Auto mated = 6678910616) message] The s ystem which generated this result transmitted reference range : 10*3/?L. The reference range was not used to interpret this result as normal/abnormal . GRAN MAT (NEUT) % 58.3 % (test code = 770-8) IMM GRAN % (test code 1.40 % = 7396798892) LYMPH % (test code = 27.1 % 736-9) MONO % (test code = 9.9 % 5905-5) EOS % (test code = 2.8 % 713-8) BASO % (test code = 0.5 % 706-2) GRAN MAT x10^3(ANC) 3.69 10*3/uL 1.99-6.95 (test code = 4281485207) IMM GRAN x10^3 (test 0.09 10*3/uL 0.00-0.06 H code = 3430888186) LYMPH x10^3 (test code 1.72 10*3/uL 1.09-3.23 = 731-0) MONO x10^3 (test code 0.63 10*3/uL 0.36-1.02 = 742-7) EOS x10^3 (test code = 0.18 10*3/uL 0.06-0.53 711-2) BASO x10^3 (test code 0.03 10*3/uL 0.01-0.09 = 704-7) Lab Interpretation Abnormal (test code = 25833-8) [facility] [id number] 02:59:15 Test Item Value Reference Range Interpretation Comments CULTURE (BEAKER) (test No growth in 5 days code = 1095) BLOOD [id number] 02:59:15 Test Item Value Reference Range Interpretation Comments CULTURE (BEAKER) (test No growth in 5 days code = 1095) SARS-CoV-2 RNA Resp Ql BETY+[id number] 13:08:09 Test Item Value Reference Range Interpretation Comments Hospitalized? (test No code = 04483-3) ICU? (test code = No 33728-0) Symptomatic as defined No by CDC? (test code = 24765-6) Employed in No Healthcare? (test code = 20997-4) Resident in a No congregate care setting (including nursing homes, residential care for people with intellectual and developmental disabilities, psychiatric treatment facilities, group homes, board and care homes, homeless care home, foster care or other): (test code = 82223-3) SARS-CoV-2 RNA Resp Ql NOT DETECTED Not Detected INTER PRETATION: No BETY+probe (test code = detec table levels 61801-7) of SARS-CoV-2 Coronavirus (COVID-19) were present in [...] n with SARS-CoV-2 Coronavirus (COVID-19). COMMENT: This [employer] Xpert Xpress SARS-CoV-2 real-time PCR test was developed, and its performance characteristics determined by the [facility] molecular diagnostic Laboratory and is acceptablefor patient testing. It has been approved for patient testing by the FDA under the Emergency Use Auth orization pathway. This laboratory is certified under federal CLIA regulations to perform this type of high complexity testing.HHSHIV 1+2 Ab+HIV1 p24 Ag SerPl Ql [id number] 06:09:15 Test Item Value Reference Range Interpretation Comments HIV 1+2 Ab+HIV1 p24 Ag SerPl Ql IA NEGATIVE Negative (test code = 17925-9) HHSUrine [id number] 10:23:26 Test Item Value Reference Range Interpretation Comments Result (test code = 6463-4) No growth [facility] [id number] 00:07:56 Test Item Value Reference Range Interpretation Comments Ventricular rate (test code = 253) Atrial rate (test code = 255) NC interval (test code = 266) QRSD interval (test code = 260) QT interval (test code = 264) QTC interval (test code = 265) P axis 1 (test code = 267) QRS axis 1 (test code = 268) T wave axis (test code = 270) EKG impression (test code Sinus = 273) tachycardia-Possible Lateral infarct , age undetermined-Electro nically Signed By Angelica Nayak ([id number]) on 11/13/2021 7:07:55 PM [facility]2021-11-13 20:21:53 Test Item Value Reference Interpretation Comments Range SARS-COV2/RT-PCR Negative Negative The SARS-Co V-2 (test code = target nucleic 32466-5) acids are not detected in thi s specimen. Negat josseline results do not preclude SARS-C oV-2 infection and should not be u sed as the sole bas is for patient management decisions. Nega tive results must be combined with clinical observations, patient history , and epidemiolog ical information. A false negative result may occu r if a specimen is improperly collected, transported or handled. This S ARS CoV-2 test is a rapid, real-jose e RT-PCR test intended for th e qualitative detection of nucleic acid fr om SARS-CoV-2 in a nasopharyngeal swab specimen collec isai from individual s suspected of COVID-19 by the ir healthcare provider. GEORGIE (test code = This test has been GEORGIE) authorized by FDA under an EUA for use by authorized laboratories. This test is only authorized for the duration of the declaration that circumstances exist justifying the authorization of emergency use of in vitro diagnostic tests for detection and/or diagnosis of COVID-19 under Section 564(b)(1) of the Federal Food, Drug and Cosmetic Act, 21 U.S.C. 360bbb-3(b)(1), unless the authorization is terminated or revoked sooner. Fact Sheet for Healthcare Providers: https://www.[employer]/Documents/Xp ert%20Xpress%20SAR S%20CoV-2/Fact%20S heets/302-3802%20S ARS-COV-2%20HEALTH CARE%20PROVIDERS%2 0FACT%20SHEET.pdf Fact Sheet for Healthcare Patients: https://www.[employer]/Documents/Xp ert%20Xpress%20SAR S%20CoV-2/Fact%20S heets/302-3801%20S ARS-COV-2%20PATIEN T%20FACT%20SHEET.p df Lab Interpretation Normal (test code = 98393-4) [facility])2021-11-13 20:21:53 Test Item Value Reference Range Interpretation Comments SARS-COV2/RT-PCR Negative Negative The SARS-Co V-2 target (test code = nucleic acids a re not 3895424) detected in thi s specimen. Negative result s do not preclude SARS-C oV-2 infection and s hould not be used as the rojelio e basis for patient managem ent decisions. Nega tive results must be combine d with clinical observ ations, patient history , and epidemiological information. A false negativ e result may occur if a spec imen is improperly andre ected, transported or handled. This SARS CoV-2 test is a rapid, real-time RT-PC R test intended for th e qualitative detection of nu cleic acid from SARS-CoV-2 in a nasopharyngeal swab specimen collected from individuals suspected of CO VID-19 by their healthcar e provider. This test has been authorized by FDA under an EUA for use by authorized laboratories. This test is only authorized for the duration of the declaration that circumstances exist justifying the authorization of emergency use of in vitro diagnostic tests for detection and/or diagnosis of COVID-19 under Section 564(b)(1) of the Federal Food, Drug and Cosmetic Act, 21 U.S.C. 360bbb-3(b)(1), unless the authorization is terminated or revoked sooner. Fact Sheet for Healthcare Providers: https://www.Holid[employer] m/Documents/Xpert%20Xpress%20SARS%20CoV-2/Fact%20Sheets/302-3802%99NOUS-KEG-3%20 HEALTHCARE%20PROVIDERS%20FACT%20SHEET.pdf Fact Sheet for Healthcare Patients: https://www.digedu/Documents/Xpert%20Xp ress%20SARS%20CoV-2/Fact%20Sheets/302-3801%75QXPJ-DGC-6%20PATIENT%20FACT%20SHEET .pdfRapid drug screen, [id number] 13:30:12 Test Item Value Reference Range Interpretation Comments Barbiturate Screen Negative Negative (test code = 10953-0) Benzodiazepine Screen Negative Negative (test code = 87560-5) Cocaine (Metab.) Positive Negative A Screen (test code = 3397-7) Methadone Screen (test Negative Negative code = 07751-1) Opiate Screen (test Positive Negative A code = 22396-8) Cannabinoid Screen Negative Negative (test code = 65955-4) Amph/Methamph Screen Negative Negative (test code = 86755-1) Phencyclidine Screen Negative Negative (test code = 35396-5) pH, UA (test code = 6.0 5.0-8.0 5803-2) GEORGIE (test code = GEORGIE) DRUG CUTOFF CONC.Cocaine 300 ng/mL Cannabinoid 50 ng/mLBenzodiazepine 200 ng/mLBarbiturate 200 ng/mLPhencyclidine 25 ng/mLOpiate 300 ng/mLMethadone 300 ng/mLAmphetamine/ 1000 ng/mL Methamphetamine This assay provides an unconfirmed qualitative test result for the clinical management of patients in emergency situations. Chain of custody not maintained. Some chyk-ekw-aqsjomt medications, as well as adulterants, may cause inaccurate results. Clinical correlation should be applied. A more comprehensive drug screen or confirmation of a detected drug may be performed upon request.Professional Employer Consultant ID - ED Lab Interpretation Abnormal (test code = 90351-8) [facility] [id number] 13:30:12 Test Item Value Reference Range Interpretation Comments BARBITURATE URINE (BEAKER) (test Negative Negative code = 725) BENZODIAZEPINE SCREEN URINE (BEAKER) Negative Negative (test code = 726) COCAINE (METAB.) SCREEN (BEAKER) Positive Negative A (test code = 1164) METHADONE SCREEN (BEAKER) (test code Negative Negative = 1436) OPIATE SCREEN URINE (BEAKER) (test Positive Negative A code = 734) CANNABINOID SCREEN URINE (BEAKER) Negative Negative (test code = 727) AMPH/METHAMPH SCREEN (BEAKER) (test Negative Negative code = 1438) PHENCYCLIDINE SCREEN URINE (BEAKER) Negative Negative (test code = 608) PH UA (BEAKER) (test code = 467) 6.0 5.0-8.0 DRUG CUTOFF CONC.Cocaine 300 ng/mL Cannabinoid 50 ng/mLBenzodiazepine 200 ng/mLBarbiturate 200 ng/mLPhencyclidine 25 ng/mLOpiate 300 ng/mLMethadone 300 ng/mLAmphetamine/ 1000 ng/mL MethamphetamineThis assay provides an unconfirmed qualitative test result for the clinical management of patients in emergency situations. Chain of custody not maintained. Some rsrv-qco-saqfnku medications, as well as adulterants, may cause inaccurate results. Clinical correlation should be applied. A more comprehensive drug screen or confirmation of a detected drug may be performed upon request.Professional Employer Consultant ID - EDUrinalysis w/Microscopic + Reflex to [id number] 10:40:32 Test Item Value Reference Range Interpretation Comments Color, UA (test code Yellow = 5778-6) Clarity, UA (test Clear code = 5767-9) Specific Fitzhugh, UA 1.032 1.001-1.035 (test code = 5811-5) pH, UA (test code = 6.0 5.0-8.0 5803-2) Protein, UA (test 20 mg/dL Negative A code = 19018-4) Glucose, UA (test Negative Negative code = 365) Ketones, UA (test Negative Negative code = 2514-8) Bilirubin, UA (test Negative Negative code = 97537-4) Blood, UA (test code Negative Negative = 00142-2) Nitrite, UA (test Negative Negative code = 5802-4) Leukocytes, UA (test Small Negative A code = 5799-2) Urobilinogen, UA 0.2 mg/dL 0.2-1.0 (test code = 86595-9) RBC, UA (test code = 13 See_Comment [Autom ated 93187-5) message] The system which generated this result transmitted reference range : /HPF. The reference range was not used to interpret this result as normal/abnormal . WBC, UA (test code = 13 See_Comment [Autom ated 5821-4) message] The system which generated this result transmitted reference range : /HPF. The reference range was not used to interpret this result as normal/abnormal . Bacteria, UA (test None Seen code = 40298-7) Mucus (test code = Few 8247-9) Squam Epithel, UA <1 See_Comment [Automate d (test code = 51033-1) messag e] The system which generated this result transmitted reference range : /HPF. The reference range was not used to interpret this result as normal/abnormal . Crystals, Urine (test None Seen code = 15023-3) Ca Oxalate Malena, UA Rare (test code = 07459-4) Amorphous Crystals Occasional (test code = 65534-1) Yeast (test code = Occasional 31105-2) Specimen Source (test code = 2795) GEORGIE (test code = GEORGIE) Professional Employer Consultant ID - [auto]Professional Employer Consultant ID - tech Lab Interpretation Abnormal (test code = 95921-4) [facility] [id number] 10:40:32 Test Item Value Reference Range Interpretation Comments COLOR (BEAKER) (test code = 470) Yellow CLARITY (BEAKER) (test code = 469) Clear SPECIFIC GRAVITY UA (BEAKER) (test 1.032 1.001-1.035 code = 468) PH UA (BEAKER) (test code = 467) 6.0 5.0-8.0 PROTEIN UA (BEAKER) (test code = 20 mg/dL Negative A 464) GLUCOSE UA (BEAKER) (test code = Negative Negative 365) KETONES UA (BEAKER) (test code = Negative Negative 371) BILIRUBIN UA (BEAKER) (test code = Negative Negative 462) BLOOD UA (BEAKER) (test code = Negative Negative 461) NITRITE UA (BEAKER) (test code = Negative Negative 465) LEUKOCYTE ESTERASE UA (BEAKER) Small Negative A (test code = 466) UROBILINOGEN UA (BEAKER) (test 0.2 mg/dL 0.2-1.0 code = 463) RBC UA (BEAKER) (test code = 519) 13 /HPF WBC UA (BEAKER) (test code = 520) 13 /HPF BACTERIA (BEAKER) (test code = None Seen 517) MUCUS (BEAKER) (test code = 1574) Few SQUAMOUS EPITHELIAL (BEAKER) (test < /HPF code = 516) CRYSTALS, URINE (BEAKER) (test None Seen code = 1521) CALCIUM OXALATE CRYSTALS (BEAKER) Rare (test code = 518) AMORPHOUS CRYSTALS (BEAKER) (test Occasional code = 1584) YEAST (BEAKER) (test code = 1585) Occasional SOURCE(BEAKER) (test code = 5015) Professional Employer Consultant ID - [auto]Professional Employer Consultant ID - techCOMPREHENSIVE METABOLIC [id number] 10:32:55 Test Item Value Reference Range Interpretation Comments TOTAL PROTEIN 7.3 gm/dL 6.0-8.3 Specimen sligh tly (BEAKER) (test hemolyzed code = 770) ALBUMIN (BEAKER) 4.0 g/dL 3.5-5.0 Specimen sl ightly (test code = 1145) hemolyzed ALKALINE 88 U/L 40-150 PHOSPHATASE (BEAKER) (test code = 346) BILIRUBIN TOTAL 0.5 mg/dL 0.2-1.2 Specimen sli ghtly (BEAKER) (test hemolyzed code = 377) SODIUM (BEAKER) 138 meq/L 136-145 (test code = 381) POTASSIUM (BEAKER) 4.1 meq/L 3.5-5.1 Specimen slightly (test code = 379) hemolyzed CHLORIDE (BEAKER) 105 meq/L 98-107 (test code = 382) CO2 (BEAKER) (test 25 meq/L 22-29 code = 355) BLOOD UREA 15 mg/dL 7-21 NITROGEN (BEAKER) (test code = 354) CREATININE 0.64 mg/dL 0.57-1.25 Specimen slight ly (BEAKER) (test hemolyzed code = 358) GLUCOSE RANDOM 88 mg/dL 70-105 (BEAKER) (test code = 652) CALCIUM (BEAKER) 9.6 mg/dL 8.4-10.2 (test code = 697) AST (SGOT) 35 U/L 5-34 H Specimen slight ly (BEAKER) (test hemolyzed code = 353) ALT (SGPT) 43 U/L 6-55 Specimen slight ly (BEAKER) (test hemolyzed code = 347) EGFR (BEAKER) 125 Interpretatio n of eGFR (test code = 1092) mL/min/1.[address] age Description sq m Result G1 Mary Jo l or high >=90 G2 Mildly decreased 60-89 G3a Mildl y to moderately 45-5 9 G3b Moderately to s everely 30-44 G4 Severl y decreased 15-29 G5 Kidney failure <15Reported eGF R is based on the CKD-EPI 1 equation that d oes not use a race coefficientEsti mated GFR is not as accur ate as Creatinine Patricia fernandes in predicting glom erular filtration rate . Estimated GFR is not appl icable for dialysis patien ts Professional Employer Consultant ID - YESSICA [id number] 10:29:13 Test Item Value Reference Range Interpretation Comments ETHANOL (BEAKER) < mg/dL See_Comment [Automated message] The (test code = 400) system whi generated this result tra nsmitted reference range : <=10. The reference r johan was not used to int erpret this result as normal/abnormal . Professional Employer Consultant ID - YESSICA WLACTIC ACID, [id number] 10:28:33 Test Item Value Reference Range Interpretation Comments LACTATE BLOOD VENOUS 1.95 mmol/L 0.50-2.20 Specime n moderately (2) (BEAKER) (test hemolyzed code = 2872) Professional Employer Consultant ID - YESSICA [id number] 10:13:07 Test Item Value Reference Range Interpretation Comments PARTIAL THROMBOPLASTIN TIME 28.4 seconds 22.5-36.0 (BEAKER) (test code = 760) PROTHROMBIN TIME/[id number] 10:12:26 Test Item Value Reference Range Interpretation Comments PROTIME (BEAKER) 13.1 seconds 11.9-14.2 (test code = 759) INR (BEAKER) (test 1.01 See_Comment [Automat ed message] code = 370) The system [employer] generated this result transmitted ref erence range: <=5.90. The reference range was not used to int erpret this result as normal/abnormal . RECOMMENDED COUMADIN/WARFARIN INR THERAPY RANGESSTANDARD DOSE: 2.0 - 3.0 Includes: PROPHYLAXIS for venous thrombosis, systemic embolization; TREATMENT for venous thrombosis and/or pulmonary embolus.HIGH RISK: Target INR is 2.5-3.5 for patients with mechanical heart valves.CBC W/PLT COUNT & AUTO [id number] 10:05:06 Test Item Value Reference Range Interpretation Comments WHITE BLOOD CELL COUNT (BEAKER) 9.1 K/ L 3.5-10.5 (test code = 775) RED BLOOD CELL COUNT (BEAKER) 4.86 M/ L 4.63-6.08 (test code = 761) HEMOGLOBIN (BEAKER) (test code = 16.1 GM/DL 13.7-17.5 410) HEMATOCRIT (BEAKER) (test code = 47.0 % 40.1-51.0 411) MEAN CORPUSCULAR VOLUME (BEAKER) 96.7 fL 79.0-92.2 H (test code = 753) MEAN CORPUSCULAR HEMOGLOBIN 33.1 pg 25.7-32.2 H (BEAKER) (test code = 751) MEAN CORPUSCULAR HEMOGLOBIN CONC 34.3 GM/DL 32.3-36.5 (BEAKER) (test code = 752) RED CELL DISTRIBUTION WIDTH 13.2 % 11.6-14.4 (BEAKER) (test code = 412) PLATELET COUNT (BEAKER) (test 307 K/CU MM 150-450 code = 756) MEAN PLATELET VOLUME (BEAKER) 9.3 fL 9.4-12.4 L (test code = 754) NUCLEATED RED BLOOD CELLS 0 /100 WBC 0-0 (BEAKER) (test code = 413) NEUTROPHILS RELATIVE PERCENT 66 % (BEAKER) (test code = 429) LYMPHOCYTES RELATIVE PERCENT 21 % (BEAKER) (test code = 430) MONOCYTES RELATIVE PERCENT 9 % (BEAKER) (test code = 431) EOSINOPHILS RELATIVE PERCENT 1 % (BEAKER) (test code = 432) BASOPHILS RELATIVE PERCENT 1 % (BEAKER) (test code = 437) NEUTROPHILS ABSOLUTE COUNT 6.04 K/ L 1.78-5.38 H (BEAKER) (test code = 670) LYMPHOCYTES ABSOLUTE COUNT 1.95 K/ L 1.32-3.57 (BEAKER) (test code = 414) MONOCYTES ABSOLUTE COUNT (BEAKER) 0.85 K/ L 0.30-0.82 H (test code = 415) EOSINOPHILS ABSOLUTE COUNT 0.05 K/ L 0.04-0.54 (BEAKER) (test code = 416) BASOPHILS ABSOLUTE COUNT (BEAKER) 0.05 K/ L 0.01-0.08 (test code = 417) IMMATURE GRANULOCYTES-RELATIVE 2 % 0-1 H PERCENT (BEAKER) (test code = 2801) Urine [id number] 05:31:00 Test Item Value Reference Range Interpretation Comments Urine culture (test SEE COMMENT Bacteriu winston screen code = 6333163) negative. [facility] Preliminary Interpretation - Not an [id number] 05:06:19 Test Item Value Reference Range Interpretation Comments GEORGIE (test code = GEORGIE) Adam Mullins DO 11/13/2021 2:29 [facility] ED Preliminary Interpretation - Not an OrderPerformed by: Adam Mullins DOAuthorized by: Adam Mullins DO ECG reviewed by ED Physician in the absence of a natural resources instructor: yes Interpretation: Interpretation: abnormal Rate: ECG rate: 133 ECG rate assessment: tachycardic Rhythm: Rhythm: sinus tachycardia Ectopy: Ectopy: none QRS: QRS axis: Normal QRS intervals: NormalConduction: Conduction: normal ST segments: ST segments: NormalT waves: T waves: normal Q waves: Q waves: V5 and V6 Lab Interpretation Abnormal (test code = 78621-7) [place] [id number] 02:21:36ALCOHOL<10mg/dL10/05/2021 9:21 PM [facility]<10 Qrbmjdlc75-953 Toxic>100 Depression of DECKHAND SPONGE BOAT>400 [facility] [id number] 02:21:26SALICYLATE<10mg/L10/05/2021 9:21 PM [facility] LABORATORYTherapeutic Range: ? Analgesic and Antipyretic Use ? 20-100 mg/L ? ? Anti-Inflammatory Use ? 100-250 mg/L Toxic Range: ? Greater than 300 mg/LUnStarr County Memorial HospitalACETAMINOPHEN2022-08-21 02:21:15 Test Item Value Reference Range Interpretation Comments ACETAMINOP (test code = 10-30 L [id number]) GEORGIE (test code = GEORGIE) Toxic: Greater than 200 ug/mL @ 4 hour post ingestion or greater than 50 ug/mL @ 12 hour post ingestion Lab Interpretation (test Abnormal code = 79672-0) [facility]anoTROPONIN [id number] 23:47:43 Test Item Value Reference Interpretation Comments Range TROPONIN I (test 0.001 ng/mL See_Comment [Automated code = 9289531034) message] The system which generated this result [...] biotin. Lab Interpretation Normal (test code = 63700-0) [facility]. METABOLIC PANEL (12307)2021-10-05 23:37:21 Test Item Value Reference Range Interpretation Comments NA (test code = 139 mmol/L 135-145 1699100522) K (test code = 4.2 mmol/L 3.5-5 5980888814) CL (test code = 103 mmol/L 98-108 3423422472) CO2 TOTAL (test code = 26 mmol/L 23-31 1733176554) AGAP (test code = 2-16 7969986463) BUN (test code = 11 mg/dL 7-23 6491299011) GLUCOSE (test code = 99 mg/dL 70-110 5111223367) CREATININE (test code = 0.77 mg/dL 0.6-1.25 1173212848) TOTAL BILI (test code = 0.9 mg/dL 0.1-1.9 1776658165) CALCIUM (test code = 9.6 mg/dL 8.6-10.6 6788762846) T PROTEIN (test code = 7.3 g/dL 6.3-8.2 0704324509) ALBUMIN (test code = 4.7 g/dL 3.5-5 6673489115) ALK PHOS (test code = 89 U/L 34-122 8877759250) ALTv (test code = 62 U/L 5-50 H 1742-6) AST(SGOT) (test code = 44 U/L 13-40 H 6705927388) eGFR (test code = mL/min/1.73m2 5021770825) GEORGIE (test code = GEORGIE) Association of [...] tests). Lab Interpretation Abnormal (test code = 95465-9) [facility]anoMAGNESIUM2022-08-20 23:37:21 Test Item Value Reference Range Interpretation Comments MAGNESIUM (test code = 8401118942) 2.1 mg/dL 1.7-2.4 Lab Interpretation (test code = Normal 76118-8) [facility]anoLIPASE2022-08-20 23:37:01 Test Item Value Reference Range Interpretation Comments LIPASE (test code = 4315950975) 44 U/L 0-220 Lab Interpretation (test code = Normal 30836-5) [facility] WITH [id number] 23:14:39 Test Item Value Reference Range Interpretation Comments WBC (test code = See_Comment [Automated 1590-2) message] The sy stem which generated this [...] as normal/abnormal . HGB (test code = 17.5 g/dL 12.2-16.4 H 718-7) HCT (test code = 49.9 % 38.4-49.3 H 4544-3) MCV (test code = 93.6 fL 81.7-95.6 787-2) MCH (test code = 32.8 pg 26.1-32.7 H 785-6) MCHC (test code = 35.1 g/dL 31.2-35 H 786-4) RDW-SD (test code = 42.9 fL 38.5-51.6 65714-8) RDW-CV (test code = 12.4 % 12.1-15.4 788-0) PLT (test code = See_Comment [Automated 777-3) message] The sy stem which generated this result transmitted reference range : 150 - 328 10*3/ ?L. The reference r johan was not used to interpret this result as normal/abnormal . MPV (test code = 9.2 fL 9.8-13 L 81391-0) NRBC/100 WBC (test See_Comment [Automat ed code = 6078398697) message] The system which generated this result transmitted reference range : 0.0 - 10.0 /100 WBCs. The refer ence range was not u sed to interpret th is result as normal/abnormal . NRBC x10^3 (test code See_Comment [Auto mated = 6564387036) message] The s ystem which generated this result transmitted reference range : 10*3/?L. The reference range was not used to interpret this result as normal/abnormal . GRAN MAT (NEUT) % 59.3 % (test code = 770-8) IMM GRAN % (test code 0.80 % = 9188732878) LYMPH % (test code = 29.8 % 736-9) MONO % (test code = 8.9 % 5905-5) EOS % (test code = 0.6 % 713-8) BASO % (test code = 0.6 % 706-2) GRAN MAT x10^3(ANC) 4.29 10*3/uL 1.99-6.95 (test code = 9410196824) IMM GRAN x10^3 (test 0.06 10*3/uL 0-0.06 code = 0266470763) LYMPH x10^3 (test code 2.15 10*3/uL 1.09-3.23 = 731-0) MONO x10^3 (test code 0.64 10*3/uL 0.36-1.02 = 742-7) EOS x10^3 (test code = 0.04 10*3/uL 0.06-0.53 L 711-2) BASO x10^3 (test code 0.04 10*3/uL 0.01-0.09 = 704-7) Lab Interpretation Abnormal (test code = 34386-2) [facility] [id number] 08:33:49 Test Item Value Reference Interpretation Comments Range TROPONIN I (test 0.001 ng/mL See_Comment [Automated code = 3899632844) message] The system which generated this result [...] biotin. Lab Interpretation Normal (test code = 71484-0) [facility] [id number] 05:55:41 Test Item Value Reference Interpretation Comments Range TROPONIN I (test 0.004 ng/mL See_Comment [Automated code = 5643554400) message] The system which generated this result [...] biotin. Lab Interpretation Normal (test code = 14207-1) [facility]. METABOLIC PANEL (43000)2021-10-02 05:45:45 Test Item Value Reference Range Interpretation Comments NA (test code = 138 mmol/L 135-145 1448037898) K (test code = 3.9 mmol/L 3.5-5 3875761897) CL (test code = 103 mmol/L 98-108 0782825886) CO2 TOTAL (test code = 29 mmol/L 23-31 8953238714) AGAP (test code = 2-16 5910213252) BUN (test code = 11 mg/dL 7-23 8931108005) GLUCOSE (test code = 96 mg/dL 70-110 2474542704) CREATININE (test code = 0.60 mg/dL 0.6-1.25 8842391241) TOTAL BILI (test code = 1.1 mg/dL 0.1-1.7 3107476541) CALCIUM (test code = 8.9 mg/dL 8.6-10.6 2800261246) T PROTEIN (test code = 7.1 g/dL 6.3-8.2 8669270650) ALBUMIN (test code = 4.5 g/dL 3.5-5 5011050729) ALK PHOS (test code = 70 U/L 34-122 6621810134) ALTv (test code = 74 U/L 5-50 H 1742-6) AST(SGOT) (test code = 85 U/L 13-40 H 3919141602) eGFR (test code = mL/min/1.73m2 8542319974) GEORGIE (test code = GEORGIE) Association of [...] tests). Lab Interpretation Abnormal (test code = 34708-8) [facility] Test Item Value Reference Range Interpretation Comments LIPASE (test code = 9926188653) 40 U/L 0-220 Lab Interpretation (test code = Normal 24275-1) [facility] WITH [id number] 05:30:41 Test Item Value Reference Range Interpretation Comments WBC (test code = See_Comment [Automated 6190-2) message] The sy stem which generated this result transmitted reference range : 4.20 - 10.70 10*3/?L. The reference range was not used to interpret this result as normal/abnormal . RBC (test code = See_Comment [Automated 649-8) message] The sy stem which generated this [...] RDW-SD (test code = 43.0 fL 38.5-51.6 43946-9) RDW-CV (test code = 12.4 % 12.1-15.4 788-0) PLT (test code = See_Comment [Automated 777-3) message] The sy stem which generated this result transmitted reference range : 150 - 328 10*3/ ?L. The reference r johan was not used to interpret this result as normal/abnormal . MPV (test code = 9.5 fL 9.8-13 L 31071-7) NRBC/100 WBC (test See_Comment [Automat ed code = 4768561257) message] The system which generated this result transmitted reference range : 0.0 - 10.0 /100 WBCs. The refer ence range was not u sed to interpret th is result as normal/abnormal . NRBC x10^3 (test code See_Comment [Auto mated = 9758210917) message] The s ystem which generated this result transmitted reference range : 10*3/?L. The reference range was not used to interpret this result as normal/abnormal . GRAN MAT (NEUT) % 61.8 % (test code = 770-8) IMM GRAN % (test code 1.50 % = 7317644194) LYMPH % (test code = 27.4 % 736-9) MONO % (test code = 8.3 % 5905-5) EOS % (test code = 0.5 % 713-8) BASO % (test code = 0.5 % 706-2) GRAN MAT x10^3(ANC) 4.11 10*3/uL 1.99-6.95 (test code = 2807949270) IMM GRAN x10^3 (test 0.10 10*3/uL 0-0.06 H code = 9303866957) LYMPH x10^3 (test code 1.82 10*3/uL 1.09-3.23 = 731-0) MONO x10^3 (test code 0.55 10*3/uL 0.36-1.02 = 742-7) EOS x10^3 (test code = 0.03 10*3/uL 0.06-0.53 L 711-2) BASO x10^3 (test code 0.03 10*3/uL 0.01-0.09 = 704-7) Lab Interpretation Abnormal (test code = 28965-0) [facility] [id number] 04:00:00 Test Item Value Reference Range Interpretation [...] PHOSPHATASE (test code = ALKP) CBC W/AUTO [id number] 03:12:00 Test Item Value Reference Range Interpretation [...] BA#) 0.0 x10 3/uL 0.0-0.1 N TROPONIN [id number] 04:00:37 Test Item Value Reference Interpretation Comments Range TROPONIN I (test 0.000 ng/mL See_Comment [Automated code = 1033614932) message] The system which generated this result [...] biotin. Lab Interpretation Normal (test code = 65498-3) [facility] [id number] 00:46:10 Test Item Value Reference Range Interpretation Comments ESR (test code = See_Comment H [Automated message] 1494079192) The system [employer] generated this result transmitted ref erence range: 0 - 10 m m/HR. The reference r johan was not used to interpret this result as normal/abnor mal. Lab Interpretation (test Abnormal code = 71351-5) [facility] HEMOGLOB[facility] (A1C)2021-05-07 20:23:40 Test Item Value Reference Range Interpretation Comments HGB A1C (test code = 5.3 % 4.0-5.7 4548-4) GEORGIE (test code = GEORGIE) Reference RangesNormal: <5.7%Prediabetes: 5.7 - 6.4%Diabetes: > 6.5% Lab Interpretation (test Normal code = 74209-7) [facility] MET[facility]OLIC PANEL (77919)2021-05-07 16:11:59 Test Item Value Reference Range Interpretation Comments NA (test code = 139 mmol/L 135-145 5774055772) K (test code = 3.9 mmol/L 3.5-5.0 0284485523) CL (test code = 101 mmol/L 98-108 5948890989) CO2 TOTAL (test code = 23 mmol/L 23-31 8564606188) AGAP (test code = 2-16 1527929421) BUN (test code = 13 mg/dL 7-23 5724932558) GLUCOSE (test code = 92 mg/dL 70-110 0869547187) CREATININE (test code = 0.40 mg/dL 0.60-1.25 L 7440834947) TOTAL BILI (test code = 1.6 mg/dL 0.1-1.1 H 8554773399) CALCIUM (test code = 9.6 mg/dL 8.6-10.6 8893001986) T PROTEIN (test code = 7.7 g/dL 6.3-8.2 4456878144) ALBUMIN (test code = 4.6 g/dL 3.5-5.0 5933298132) ALK PHOS (test code = 91 U/L 34-122 3086853694) ALTv (test code = 24 U/L 5-50 1742-6) AST(SGOT) (test code = 31 U/L 13-40 4439647720) eGFR (test code = mL/min/1.73m2 5032338680) GEORGIE (test code = GEORGIE) Association of [...] tests). Lab Interpretation Abnormal (test code = 60706-4) [facility] THRMPLAS [id number] 15:52:36 Test Item Value Reference Range Interpretation Comments APTT Patient (test See_Comment [Automat ed code = 3173-2) message] The system which generated this result transmitted reference range : 23 - 38 Seconds . The reference range was not used to interpr et this result as normal/abnormal . GEORGIE (test code = GEORGIE) The [facility] patient population mean normal value for aPTT is 30 seconds. Lab Interpretation Normal (test code = 37017-2) [facility]anoPROTHROM[facility] TIME / [id number] 15:50:30 Test Item Value Reference Range Interpretation [...] tions. Lab Interpretation (test Normal code = 58085-7) [facility] WITH [id number] 15:42:54 Test Item Value Reference Range Interpretation Comments WBC (test code = See_Comment [Automated 3190-2) message] The sy stem which generated this result transmitted reference range : 4.20 - 10.70 10*3/?L. The reference range was not used to interpret this result as normal/abnormal . RBC (test code = See_Comment [Automated 359-8) message] The sy stem which generated this [...] RDW-SD (test code = 44.1 fL 38.5-51.6 76334-7) RDW-CV (test code = 13.3 % 12.1-15.4 788-0) PLT (test code = See_Comment [Automated 777-3) message] The sy stem which generated this result transmitted reference range : 150 - 328 10*3/ ?L. The reference r johan was not used to interpret this result as normal/abnormal . MPV (test code = 9.7 fL 9.8-13.0 L 20323-4) NRBC/100 WBC (test See_Comment [Automat ed code = 4188967510) message] The system which generated this result transmitted reference range : 0.0 - 10.0 /100 WBCs. The refer ence range was not u sed to interpret th is result as normal/abnormal . NRBC x10^3 (test code <0.01 See_Comment [Auto mated = 0495489538) message] The s ystem which generated this result transmitted reference range : 10*3/?L. The reference range was not used to interpret this result as normal/abnormal . GRAN MAT (NEUT) % 77.6 % (test code = 770-8) IMM GRAN % (test code 0.60 % = 3395049887) LYMPH % (test code = 13.7 % 736-9) MONO % (test code = 7.7 % 5905-5) EOS % (test code = 0.2 % 713-8) BASO % (test code = 0.2 % 706-2) GRAN MAT x10^3(ANC) 7.68 10*3/uL 1.99-6.95 H (test code = 7555521480) IMM GRAN x10^3 (test 0.06 10*3/uL 0.00-0.06 code = 5535176333) LYMPH x10^3 (test code 1.35 10*3/uL 1.09-3.23 = 731-0) MONO x10^3 (test code 0.76 10*3/uL 0.36-1.02 = 742-7) EOS x10^3 (test code = <0.03 0.06-0.53 L 711-2) BASO x10^3 (test code <0.03 0.01-0.09 = 704-7) Lab Interpretation Abnormal (test code = 10356-4) [facility]ARS-CoV-2 ORF1ab Resp Ql [id number] 19:38:49 Test Item Value Reference Range Interpretation Comments Hospitalized? (test Yes code = 24271-9) ICU? (test code = No 70990-2) Symptomatic as defined No by CDC? (test code = 83938-7) Employed in No Healthcare? (test code = 77492-7) Resident in a No congregate care setting (including nursing homes, residential care for people with intellectual and developmental disabilities, psychiatric treatment facilities, group homes, board and care homes, homeless care home, foster care or other): (test code = 17659-0) SARS-CoV-2 ORF1ab Resp NOT DETECTED Not Detected INTER PRETATION: No Ql BETY+probe (test detectabl e levels code = 28399-4) of SARS-CoV- 2 Coronavirus (COVID-19) were present [...] n with SARS-CoV-2 Coronavirus (COVID-19). COMMENT: This [employer] SARS-CoV-2 molecular diagnostic assay utilizes Cane Loader Mediated Amplification (TMA) technology to rapidly detect the SARS-CoV-2 (COVID-19) virus from respiratory samples. In accordance with the FDA's guidance document "Policy for Diagnostic Tests for Coronavirus Disease- 2019 during the Public Health Emergency", this test was developed, and its performance characteristics were verified by the [facility] molecular diagnostics laboratory and is authorized for clinical diagnostic use. This laboratory is certified under the Clinical Laboratory Improvement Amendments (CLIA) as qualified to perform high complexity clinical laboratory testing.AGNCPCA-TfZ-8 RNA Resp Ql [id number] 22:20:00 Test Item Value Reference Range Interpretation Comments Hospitalized? (test Yes code = 13128-3) ICU? (test code = No 25516-3) Symptomatic as defined No by CDC? (test code = 19118-5) Employed in Unknown Healthcare? (test code = 08082-9) Resident in a Unknown congregate care setting (including nursing homes, residential care for people with intellectual and developmental disabilities, psychiatric treatment facilities, group homes, board and care homes, homeless care home, foster care or other): (test code = 77970-7) SARS-CoV-2 RNA Resp Ql NOT DETECTED Not Detected INTER PRETATION: No BETY+probe (test code = detec table levels 03501-1) of SARS-CoV-2 Coronavirus (COVID-19) were present in [...] its performance characteristics were verified by the [facility] molecular diagnostics laboratory and is authorized for clinical diagnostic use. This laboratory is certified under the Clinical Laboratory Improvement Amendments (CLIA) as qualified to perform high complexity clinical laboratory testing.VWYZXBB-OjR-4 ORF1ab Resp Ql [id number] 14:59:31 Test Item Value Reference Range Interpretation Comments Hospitalized? (test Yes code = 26024-9) ICU? (test code = Yes 125329-5) Symptomatic as defined No by CDC? (test code = 43005-5) Employed in No Healthcare? (test code = 36750-0) Resident in a No congregate care setting (including nursing homes, residential care for people with intellectual and developmental disabilities, psychiatric treatment facilities, group homes, board and care homes, homeless care home, foster care or other): (test code = 31606-6) SARS-CoV-2 ORF1ab Resp NOT DETECTED Not Detected INTER PRETATION: No Ql BETY+probe (test detectabl e levels code = 10650-4) of SARS-CoV- 2 Coronavirus (COVID-19) were present [...] n with SARS-CoV-2 Coronavirus (COVID-19). COMMENT: This [employer] SARS-CoV-2 molecular diagnostic assay utilizes Cane Loader Mediated Amplification (TMA) technology to rapidly detect the SARS-CoV-2 (COVID-19) virus from respiratory samples. In accordance with the FDA's guidance document "Policy for Diagnostic Tests for Coronavirus Disease- 2019 during the Public Health Emergency", this test was developed, and its performance characteristics were verified by the [facility] molecular diagnostics laboratory and is authorized for clinical diagnostic use. This laboratory is certified under the Clinical Laboratory Improvement Amendments (CLIA) as qualified to perform high complexity clinical laboratory testing.ATSAIZF-XsS-0 RNA Resp Ql [id number] 00:53:33 Test Item Value Reference Range Interpretation Comments Hospitalized? (test code Yes = 01742-5) ICU? (test code = No 13343-2) Symptomatic as defined No by CDC? (test code = 91493-8) Employed in Healthcare? No (test code = 93288-1) Resident in a congregate No care setting (including nursing homes, residential care for people with intellectual and developmental disabilities, psychiatric treatment facilities, group homes, board and care homes, homeless care home, foster care or other): (test code = 67714-6) ? (test code = No 88437-0) SARS-CoV-2 RNA Resp Ql DETECTED Not Detected A INTER PRETATION: This BETY+probe (test code = [place] 39756-0) detectable RNA present for the SARS-CoV-2 Coronavirus [...] its performance characteristics were verified by the [facility] molecular diagnostics laboratory and is authorized for clinical diagnostic use. This laboratory is certified under the Clinical Laboratory Improvement Amendments (CLIA) as qualified to perform high complexity clinical laboratory testing.HHSURINALYSIS COMPLETE 2020-12-20 13:19:00 Test Item Value Reference [...] NONE A MUCU) DRUGS OF ABUSE SCREEN [id number] 13:19:00 Test Item Value Reference Interpretation Comments [...] this result as normal/abnormal . BASIC METABOLIC [id number] 09:24:00 Test Item Value Reference Range Interpretation [...] message] (test code = Index/DL The system anuharshil vidales HEM[employer]) generated this result transmit isai [...] this result as normal/abnormal . HEPATIC FUNCTION [id number] 09:24:00 Test Item Value Reference Range Interpretation [...] 59 Unit/L 45-117 N code = ALKP) [id number] 09:24:00 Test Item Value Reference Range Interpretation Comments ACETAMINOPHEN (test code = ACET) <2.0 mcG/ML 10.0-30.0 L [id number] 09:24:00 Test Item Value Reference Range Interpretation Comments ALCOHOL (test code = < 3 MG/DL 0-10 N MEDICAL ALCOHOL ALC) RESULTS. SITE W PREPPED WITH BE TADINE. <10 MG/DL ARE CONSIDERED NEGA TIVE. >400 MG/DL MAY BE FATAL.RESULTS F OR MEDICAL USE ONL Y. NOT TO BE USED FOR FORENSIC PURPOSES. [id number] 07:55:00 Test Item Value Reference Range Interpretation Comments SALICYLATE (test code < 1.7 MG/DL See_Comment L RESULT <2.8 IS = SMITH) CONSIDERED NEGA TIVE FOR SALICYLATE. [Automated mess age] The system [employer] generated this result transmitted ref erence range: 2.8-20.0 THER. The reference r johan was not used to interpret this result as normal/abnor mal. CBC W/AUTO [id number] 07:10:00 Test Item Value Reference Range Interpretation [...] 0.00 K/mm3 0.00-0.05 N NRBC#) ECG 12 [id number] 22:52:05 Test Item Value Reference Range Interpretation Comments Ventricular rate (test code = 253) Atrial rate (test code = 255) NC interval (test code = 266) QRSD interval [...] Judge MD ([id number]) on 11/26/2020 5:52:[address]2021-10-11 22:52:05 Test Item Value Reference Range Interpretation Comments Ventricular rate (test code = 253) Atrial rate (test code = 255) NC interval (test code = 266) QRSD interval [...] Judge MD ([id number]) on 11/26/2020 5:52:[address]2021-10-11 22:52:05 Test Item Value Reference Range Interpretation Comments Ventricular rate (test code = 253) Atrial rate (test code = 255) NC interval (test code = 266) QRSD interval [...] Judge MD ([id number]) on 11/26/2020 5:52:04 PM [address]2021-10-11 22:52:05 Test Item Value Reference Range Interpretation Comments Ventricular rate (test code = 253) Atrial rate (test code = 255) NC interval (test code = 266) QRSD interval [...] Judge MD ([id number]) on 11/26/2020 5:52:04 PM [address]2021-10-11 22:52:05 Test Item Value Reference Range Interpretation Comments Ventricular rate (test code = 253) Atrial rate (test code = 255) NC interval (test code = 266) QRSD interval (test code = 260) QT interval (test code = 264) QTC interval (test code = 265) P axis 1 (test code = 267) QRS axis 1 (test code = 268) T wave axis (test code = 270) EKG impression (test Normal sinus code = 273) rhythm-Rightward axis-Borderline ECG-No [facility]s [facility] Signed By Doron Judge MD ([id number]) on 11/26/2020 5:52:04 PM [address]2021-10-11 22:52:05 Test Item Value Reference Range Interpretation Comments Ventricular rate (test code = 253) Atrial rate (test code = 255) NC interval (test code = 266) QRSD interval [...] Judge MD ([id number]) on 11/26/2020 5:52:04 PM [address]2021-10-11 22:52:05 Test Item Value Reference Range Interpretation Comments Ventricular rate (test code = 253) Atrial rate (test code = 255) NC interval (test code = 266) QRSD interval [...] Judge MD ([id number]) on 11/26/2020 5:52:04 PM [address]2021-10-11 22:52:05 Test Item Value Reference Range Interpretation Comments Ventricular rate (test code = 253) Atrial rate (test code = 255) NC interval (test code = 266) QRSD interval [...] Judge MD ([id number]) on 11/26/2020 5:52:04 PM [address]2021-10-11 22:52:05 Test Item Value Reference Range Interpretation Comments Ventricular rate (test code = 253) Atrial rate (test code = 255) NC interval (test code = 266) QRSD interval [...] Judge MD ([id number]) on 11/26/2020 5:52:04 PM [address]2021-10-11 22:52:05 Test Item Value Reference Range Interpretation Comments Ventricular rate (test code = 253) Atrial rate (test code = 255) NC interval (test code = 266) QRSD interval [...] Judge MD ([id number]) on 11/26/2020 5:52:04 PM [address]2021-10-11 22:52:05 Test Item Value Reference Range Interpretation Comments Ventricular rate (test code = 253) Atrial rate (test code = 255) NC interval (test code = 266) QRSD interval [...] Judge MD ([id number]) on 11/26/2020 5:52:04 PM [address]2021-10-11 22:52:05 Test Item Value Reference Range Interpretation Comments Ventricular rate (test code = 253) Atrial rate (test code = 255) NC interval (test code = 266) QRSD interval [...] Judge MD ([id number]) on 11/26/2020 5:52:04 PM [address]2021-10-11 22:52:05 Test Item Value Reference Range Interpretation Comments Ventricular rate (test code = 253) Atrial rate (test code = 255) NC interval (test code = 266) QRSD interval [...] Judge MD ([id number]) on 11/26/2020 5:52:04 PM [address]2021-10-11 22:52:05 Test Item Value Reference Range Interpretation Comments Ventricular rate (test code = 253) Atrial rate (test code = 255) NC interval (test code = 266) QRSD interval [...] Judge MD ([id number]) on 11/26/2020 5:52:04 PM [address]2021-10-11 22:52:05 Test Item Value Reference Range Interpretation Comments Ventricular rate (test code = 253) Atrial rate (test code = 255) NC interval (test code = 266) QRSD interval (test code = 260) QT interval (test code = 264) QTC interval (test code = 265) P axis 1 (test code = 267) QRS axis 1 (test code = 268) T wave axis (test code = 270) EKG impression (test Normal sinus code = 273) rhythm-Rightward axis-Borderline ECG-No [facility]s available[facility] Signed By Doron Judge MD ([id number]) on 11/26/2020 5:52:04 PM [address]2021-10-11 22:52:05 Test Item Value Reference Range Interpretation Comments Ventricular rate (test code = 253) Atrial rate (test code = 255) NC interval (test code = 266) QRSD interval [...] Judge MD ([id number]) on 11/26/2020 5:52:04 PM [address]2021-10-11 22:52:05 Test Item Value Reference Range Interpretation Comments Ventricular rate (test code = 253) Atrial rate (test code = 255) NC interval (test code = 266) QRSD interval [...] Judge MD ([id number]) on 11/26/2020 5:52:04 PM [address]2021-10-11 22:52:05 Test Item Value Reference Range Interpretation Comments Ventricular rate (test code = 253) Atrial rate (test code = 255) NC interval (test code = 266) QRSD interval [...] Judge MD ([id number]) on 11/26/2020 5:52:04 PM [address]2021-10-11 22:52:05 Test Item Value Reference Range Interpretation Comments Ventricular rate (test code = 253) Atrial rate (test code = 255) NC interval (test code = 266) QRSD interval [...] Judge MD ([id number]) on 11/26/2020 5:52:04 PM [address]2021-10-11 22:52:05 Test Item Value Reference Range Interpretation Comments Ventricular rate (test code = 253) Atrial rate (test code = 255) NC interval (test code = 266) QRSD interval [...] Judge MD ([id number]) on 11/26/2020 5:52:04 PM [address]2021-10-11 22:52:05 Test Item Value Reference Range Interpretation Comments Ventricular rate (test code = 253) Atrial rate (test code = 255) NC interval (test code = 266) QRSD interval [...] Judge MD ([id number]) on 11/26/2020 5:52:04 PM [address]2021-10-11 22:52:05 Test Item Value Reference Range Interpretation Comments Ventricular rate (test code = 253) Atrial rate (test code = 255) NC interval (test code = 266) QRSD interval [...] Judge MD ([id number]) on 11/26/2020 5:52:04 PM [address]2021-10-11 22:52:05 Test Item Value Reference Range Interpretation Comments Ventricular rate (test code = 253) Atrial rate (test code = 255) NC interval (test code = 266) QRSD interval [...] Judge MD ([id number]) on 11/26/2020 5:52:04 [address]2021-10-11 22:52:05 Test Item Value Reference Range Interpretation Comments Ventricular rate (test code = 253) Atrial rate (test code = 255) NC interval (test code = 266) QRSD interval [...] Judge MD ([id number]) on 11/26/2020 5:52:[address]2021-10-11 22:52:05 Test Item Value Reference Range Interpretation Comments Ventricular rate (test code = 253) Atrial rate (test code = 255) NC interval (test code = 266) QRSD interval [...] Judge MD ([id number]) on 11/26/2020 5:52:[address]2021-10-11 22:52:05 Test Item Value Reference Range Interpretation Comments Ventricular rate (test code = 253) Atrial rate (test code = 255) NC interval (test code = 266) QRSD interval [...] Judge MD ([id number]) on 11/26/2020 5:52:04 PM [facility]2021-09-30 07:28:23 Test Item Value Reference Range Interpretation Comments Urine culture (test SEE COMMENT Bacteriu [place] screen code = 8068823) negative. [facility]2021-09-30 07:28:23 Test Item Value Reference Range Interpretation Comments Urine culture (test SEE COMMENT Bacteriu [place] screen code = 9658576) negative. [facility]2021-09-30 07:28:23 Test Item Value Reference Range Interpretation Comments Urine culture (test SEE COMMENT Bacteriu [place] screen code = 2757363) negative. [facility]2021-09-30 07:28:23 Test Item Value Reference Range Interpretation Comments Urine culture (test SEE COMMENT Bacteriu [place] screen code = 1410689) negative. [facility]2021-09-30 07:28:23 Test Item Value Reference Range Interpretation Comments Urine culture (test SEE COMMENT Bacteriu [place] screen code = 1704124) negative. [facility]2021-09-30 07:28:23 Test Item Value Reference Range Interpretation Comments Urine culture (test SEE COMMENT Bacteriu [place] screen code = 5194493) negative. [facility]2021-09-30 07:28:23 Test Item Value Reference Range Interpretation Comments Urine culture (test SEE COMMENT Bacteriu [place] screen code = 0228079) negative. [facility]2021-09-30 07:28:23 Test Item Value Reference Range Interpretation Comments Urine culture (test SEE COMMENT Bacteriu [place] screen code = 9734536) negative. [facility]2021-09-30 07:28:23 Test Item Value Reference Range Interpretation Comments Urine culture (test SEE COMMENT Bacteriu [place] screen code = 5251241) negative. [facility]2021-09-30 07:28:23 Test Item Value Reference Range Interpretation Comments Urine culture (test SEE COMMENT Bacteriu [place] screen code = 4923276) negative. [facility]2021-09-30 07:28:23 Test Item Value Reference Range Interpretation Comments Urine culture (test SEE COMMENT Bacteriu [place] screen code = 6929576) negative. [place] 346361-09-30 07:28:23 Test Item Value Reference Range Interpretation Comments Urine culture (test SEE COMMENT Bacteriu [place] screen code = 3612647) negative. [place] 346361-09-30 07:28:23 Test Item Value Reference Range Interpretation Comments Urine culture (test SEE COMMENT Bacteriu [place] screen code = 0182001) negative. [place] 346361-09-30 07:28:23 Test Item Value Reference Range Interpretation Comments Urine culture (test SEE COMMENT Bacteriu [place] screen code = 9927467) negative. [place] 346361-09-30 07:28:23 Test Item Value Reference Range Interpretation Comments Urine culture (test SEE COMMENT Bacteriu [place] screen code = 0707987) negative. [place] 346361-09-30 07:28:23 Test Item Value Reference Range Interpretation Comments Urine culture (test SEE COMMENT Bacteriu [place] screen code = 4383208) negative. [place] 346361-09-30 07:28:23 Test Item Value Reference Range Interpretation Comments Urine culture (test SEE COMMENT Bacteriu [place] screen code = 9363145) negative. [place] 346361-09-30 07:28:23 Test Item Value Reference Range Interpretation Comments Urine culture (test SEE COMMENT Bacteriu [place] screen code = 2450694) negative. [place] 346361-09-30 07:28:23 Test Item Value Reference Range Interpretation Comments Urine culture (test SEE COMMENT Bacteriu [place] screen code = 4279379) negative. [place] 346361-09-30 07:28:23 Test Item Value Reference Range Interpretation Comments Urine culture (test SEE COMMENT Bacteriu [place] screen code = 7929328) negative. [place] 346361-09-30 07:28:23 Test Item Value Reference Range Interpretation Comments Urine culture (test SEE COMMENT Bacteriu [place] screen code = 0122699) negative. [place] 346361-09-30 07:28:23 Test Item Value Reference Range Interpretation Comments Urine culture (test SEE COMMENT Bacteriu [place] screen code = 6992244) negative. [place] 346361-09-30 07:28:23 Test Item Value Reference Range Interpretation Comments Urine culture (test SEE COMMENT Bacteriu [place] screen code = 2393048) negative. [place] 346361-09-30 07:28:23 Test Item Value Reference Range Interpretation Comments Urine culture (test SEE COMMENT Bacteriu [place] screen code = 3129238) negative. [facility] [id number] 07:28:23 Test Item Value Reference Range Interpretation Comments Urine culture (test SEE COMMENT Bacteriu [place] screen code = 0087395) negative. [facility] (C[facility]-19) RNA [Presence] in Respiratory specimen by BETY with probe [id number] 02:40:47 Test Item Value Reference Range Interpretation Comments SARS-CoV-2 (COVID-19) RNA Not detected Not-Detected [Presence] in Respiratory specimen by BETY with probe detection (test code = 55304-2) Whether patient is employed in a healthcare setting (test code = 01723-1) Whether the patient has symptoms related to condition of interest (test code = 68152-6) Patient was hospitalized because of this condition (test code = 29231-3) Whether the patient was admitted to intensive care unit (ICU) for condition of interest (test code = 42295-9) Whether patient resides in a congregate care setting (test code = 50850-3) [facility] (COVID-19) RNA [Presence] in Respiratory specimen by BETY with probe [id number] 03:12:16 Test Item Value Reference Range Interpretation Comments SARS-CoV-2 (COVID-19) RNA Not detected Not-Detected [Presence] in Respiratory specimen by BETY with probe detection (test code = 84270-4) Whether patient is employed in a healthcare setting (test code = 38131-9) Whether the patient has symptoms related to condition of interest (test code = 76913-1) Patient was hospitalized because of this condition (test code = 42775-7) Whether the patient was admitted to intensive care unit (ICU) for condition of interest (test code = 90241-7) Whether patient resides in a congregate care setting (test code = 42718-5) [facility] METABOLIC [id number] 09:20:00 Test Item Value Reference Range Interpretation [...] message] (test code = Index/DL The system [employer]) generated this result transmit isai reference range [...] this result as normal/abnormal . Specimen comments: [facility] [id number] 09:20:00 Test Item Value Reference Range Interpretation [...] code = ALKP) Specimen comments: CCTHYROID STIMULATING [id number] 09:20:00 Test Item Value Reference Range Interpretation Comments THYROID STIMULATING HORMONE 0.619 mc IU/ML 0.340-4.820 N (test code = TSH) Specimen comments: [id number] 09:20:00 Test Item Value Reference Range Interpretation [...] change s in troponin levelscharacter istic of [place]. Specimen comments: [id number] 09:20:00 Test Item Value Reference Range Interpretation Comments ACETAMINOPHEN (test code = ACET) <2.0 mcG/ML 10.0-30.0 L Specimen comments: [id number] 09:20:00 Test Item Value Reference Range Interpretation Comments ALCOHOL (test code = < 3 MG/DL 0-10 N MEDICAL ALCOHOL ALC) RESULTS. SITE W PREPPED WITH BE TADINE. <10 MG/DL ARE CONSIDERED NEGA TIVE. >400 MG/DL MAY BE FATAL.RESULTS F OR MEDICAL USE ONL Y. NOT TO BE USED FOR FORENSIC PURPOSES. Specimen comments: [id number] 08:59:00 Test Item Value Reference Range Interpretation Comments SALICYLATE (test code < 1.7 MG/DL See_Comment L RESULT <2.8 IS = SMITH) CONSIDERED NEGA TIVE FOR SALICYLATE. [Automated mess age] The system [employer] generated this result transmitted ref erence range: 2.8-20.0 THER. The reference r johan was not used to interpret this result as normal/abnor mal. Specimen comments: CCBASIC METABOLIC [id number] 08:55:00 Test Item Value Reference Range Interpretation [...] message] (test code = Index/DL The system [employer]) generated this result transmit isai reference range [...] this result as normal/abnormal . Specimen comments: [facility] [id number] 08:55:00 Test Item Value Reference Range Interpretation [...] code = ALKP) Specimen comments: CCTHYROID STIMULATING [id number] 08:55:00 Test Item Value Reference Range Interpretation Comments THYROID STIMULATING HORMONE 0.619 mc IU/ML 0.340-4.820 N (test code = TSH) Specimen comments: [id number] 08:55:00 Test Item Value Reference Range Interpretation [...] change s in troponin levelscharacter istic of [place]. Specimen comments: [id number] 08:55:00 Test Item Value Reference Range Interpretation Comments ACETAMINOPHEN (test code = ACET) mcG/ML 10.0-30.0 Specimen comments: [id number] 08:55:00 Test Item Value Reference Range Interpretation Comments ALCOHOL (test code = < 3 MG/DL 0-10 N MEDICAL ALCOHOL ALC) RESULTS. SITE W PREPPED WITH BE TADINE. <10 MG/DL ARE CONSIDERED NEGA TIVE. >400 MG/DL MAY BE FATAL.RESULTS F OR MEDICAL USE ONL Y. NOT TO BE USED FOR FORENSIC PURPOSES. Specimen comments: CCCBC W/AUTO [id number] 08:10:00 Test Item Value Reference Range Interpretation [...] NRBC#) Specimen comments: CC- XR CHEST 1 [id number] 03:12:00 [facility] : 1985 Sex: M FAX: Mahin Smallwood MD [phone] [place]: St: [facility] FAX: Vilma Coker [phone] Patient Name: ARLINE RAO Unit No: [id number] EXAMS: CPT CODE: [id number] XR CHEST 1 V 60876 EXAM: - XR CHEST 1 V HISTORY: Chest pain. Covid positive. FINDINGS: Single AP view of the chest is provided. Heart size and vascularity are within normal limits. There is no evidence of a focal consolidation. There is no pleural effusion or pneumothorax. There is no definite acute osseous abnormality. IMPRESSION: No radiographic evidence of acute cardiopulmonary process. at 0312 Reported and signed by: Santos Bobby MD CC: Vilma BENNETT Dictated Date/Time: 10/16/2020 (311)Technologist: Dk Hale Transcribed Date/Time: 10/16/2020 (311) By: [email or web address] Orig Print D/T: S: 10/16/2020 (0315) TATUM Mcarthur NAME: ARLINE RAO [address] [place] [address] Blvd PHYS: Vilma Keyes, [place] [address] : 1985 AGE: 35 SEX: M : CASSANDRA PHONE #: [phone] EXAM DATE: 10/16/2020 STATUS: REG ER FAX #: [phone] RAD NO: DCDt: PAGE 1 Signed ReportCOVID 19 Asymptomatic IH [id number] 06:58:00 Test Item Value Reference Range Interpretation Comments COVID 19 Asymptomatic IH AG (test POSITIVE Negative A code = COVNONPUIAG) BASIC METABOLIC [id number] 04:22:00 Test Item Value Reference Range Interpretation [...] 8.3 mg/dL 8.4-10.2 L CA) LIVER FUNCTION [id number] 04:22:00 Test Item Value Reference Range Interpretation [...] U/L 38-126 N (test code = ALKP) [id number] 04:22:00 Test Item Value Reference Range Interpretation Comments ALCOHOL (test code = < 10 mg/dL <10 ~~~~~~ ~~~~~~~~~~~~~~~ ALC) ~~~~~~~~~~~~~~~ ~~~~~~~ ~~~~~~~ RESULTS ARE TO BE USED FOR MED ICAL PURPOSES ONLY.F OR LEGAL PURPOSES THE SPECIMEN MUST B E COLLECTED BY A CHAINOF CUSTODY. LEGAL TESTING IS NOT PERFORME D BY THIS FACILITY. ~~~~~~~~~~~~~~~ ~~~~~~~ ~~~~~~~~~~~~~~~ ~~~~~~~ ~~~~~~ CBC W/AUTO [id number] 04:08:00 Test Item Value Reference Range Interpretation [...] x10 3/uL 0.0-0.1 N Coronavirus 2019 nCoV [id number] 17:19:00 Test Item Value Reference Range Interpretation Comments Coronavirus 2019 nCoV Bedside (test Negative Neg code = [id number]) [id number] 13:14:00 Test Item Value Reference Range Interpretation Comments SALICYLATE (test code < 1.7 MG/DL See_Comment L RESULT <2.8 IS = SMITH) CONSIDERED NEGA TIVE FOR SALICYLATE. [Automated mess age] The system [employer] generated this result transmitted ref erence range: 2.8-20.0 THER. The reference r johan was not used to interpret this result as normal/abnor mal. BASIC METABOLIC [id number] 13:03:00 Test Item Value Reference Range Interpretation [...] message] (test code = Index/DL The system [employer] HEMINDEX) generated this result transmit isai reference [...] this result as normal/abnormal . HEPATIC FUNCTION [id number] 13:03:00 Test Item Value Reference Range Interpretation [...] 87 Unit/L 45-117 N code = ALKP) [id number] 13:03:00 Test Item Value Reference Range Interpretation Comments ACETAMINOPHEN (test code = ACET) <2.0 mcG/ML 10.0-30.0 L [id number] 13:03:00 Test Item Value Reference Range Interpretation Comments ALCOHOL (test code = < 3 MG/DL 0-10 N MEDICAL ALCOHOL ALC) RESULTS. SITE W PREPPED WITH BE TADINE. <10 MG/DL ARE CONSIDERED NEGA TIVE. >400 MG/DL MAY BE FATAL.RESULTS F OR MEDICAL USE ONL Y. NOT TO BE USED FOR FORENSIC PURPOSES. DRUGS OF ABUSE SCREEN [id number] 12:38:00 Test Item Value Reference Interpretation Comments [...] this result as normal/abnormal . BASIC METABOLIC [id number] 12:37:00 Test Item Value Reference Range Interpretation [...] this result as normal/abnormal . HEPATIC FUNCTION [id number] 12:37:00 Test Item Value Reference Range Interpretation [...] 87 Unit/L 45-117 N code = ALKP) [id number] 12:37:00 Test Item Value Reference Range Interpretation Comments ACETAMINOPHEN (test code = ACET) mcG/ML 10.0-30.0 [id number] 12:37:00 Test Item Value Reference Range Interpretation Comments ALCOHOL (test code = < 3 MG/DL 0-10 N MEDICAL ALCOHOL ALC) RESULTS. SITE W PREPPED WITH BE TADINE. <10 MG/DL ARE CONSIDERED NEGA TIVE. >400 MG/DL MAY BE FATAL.RESULTS F OR MEDICAL USE ONL Y. NOT TO BE USED FOR FORENSIC PURPOSES. CBC W/AUTO [id number] 12:02:00 Test Item Value Reference Range Interpretation [...] code = 0.00 K/mm3 0.00-0.05 N NRBC#) [id number] 23:33:00 Test Item Value Reference Range Interpretation [...] change s in troponin levelscharacter istic of [place]. B-TYPE NATRIURETIC [id number] 19:24:00 Test Item Value Reference Range Interpretation Comments B-TYPE NATRIURETIC PEPTIDE < 30.00 PG/ML 0.00-100.00 N (test code = BNP) URINALYSIS [id number] 15:43:00 Test Item Value Reference Range Interpretation Comments UA COLOR (test code = DESCRIPT YELLOW COLU) UA APPEARANCE (test DESCRIPT CLEAR code = APPU) UA GLUCOSE DIPSTICK mg/dL See_Comment [Automa isai message] (test code = DGLUU) The syst em which generated this result transmitted ref erence range: 0 (MARY JO L). The reference r johan was not [...] 0-3 RBCU) PENDING RECEIPT OF SPECIMEN PER a.[facility].VT15 AT 08/11/20 1302DRUGS OF ABUSE SCREEN [id number] 15:43:00 Test Item Value Reference Interpretation Comments [...] (test 6.5 pH UNITS 4.6-8.0 code = MIEK) UA PROTEIN DIPSTICK 10 (TRACE) See_Comment A [...] a.STF.VT15 AT 08/11/20 1302DRUGS OF ABUSE SCREEN [id number] 15:43:00 Test Item Value Reference Interpretation Comments [...] + V LT 2020-08-11 13:43:00 [facility] : 1985 Sex: M FAX: Lan Zeng MD [phone] [place]: E St: PRE Patient Name: ARLINE RAO Unit No: [id number] EXAMS: CPT CODE: [id number] XR HAND 3 + V LT [address] EXAM: - XR HAND 3 + V LT HISTORY: Left hand swollen and tender laterally H49 COMPARISON: None available time of interpretation. FINDINGS: PA, oblique, and lateral view of the left hand is provided. External wire [...] CC: Lan Cooper MD Dictated Date/Time: 08/11/2020 (6053)Technologist: Damaris Martinez Transcribed Date/Time: 08/11/2020 (9053) By: [email or web address] Orig Print D/T: S: 08/11/2020 (7832) TATUM Mcarthur NAME: ARLINE RAO [address] [place] [address] PHYS: Lan Dykes [place], [place] [address] : 1985 AGE: 34 SEX: M LOC: B.ERS PHONE #: [phone] EXAM DATE: 08/11/2020 STATUS: PRE ER FAX #: [phone] RAD NO: DC Dt: PAGE 1 Signed Report- XR CHEST 1 V 2020-08-11 13:41:00 [facility] : 1985 Sex: M FAX: Lan Zeng MD [phone] Confluence: E St: PRE Patient Name: ARLINE RAO Unit No: [id number] EXAMS: CPT CODE: [id number] XR CHEST 1 V 68290 EXAM: - XR CHEST 1 V Location [...] By: [email or web address] Orig Print D/T: S: 08/11/2020 (1962) TATUM Mcarthur NAME: ARLINE RAO [address] [place] [address] Bl PHYS: Lan Munroe MD [place], [place] [address] : 1985 AGE: 34 SEX: M LOC: Ernesto.ERSPHONE #: [phone] EXAM DATE: 08/11/2020 STATUS: PRE ER FAX #: [phone] RAD NO: DC Dt: PAGE 1Signed ReportCOMPREHENSIVE METABOLIC [id number] 12:50:00 Test Item Value Reference Range Interpretation [...] (test code = MG Index/DL The system [employer]EM[employer]) generated this result transmit isai reference [...] to interpret this result as normal/abnormal . [id number] 12:50:00 Test Item Value Reference Range Interpretation [...] change s in troponin levelscharacter istic of [place]. [id number] 12:50:00 Test Item Value Reference Range Interpretation Comments ACETAMINOPHEN (test code = ACET) < 2.0 mcG/ML 10.0-30.0 L [id number] 12:50:00 Test Item Value Reference Range Interpretation Comments ALCOHOL (test code = <3 MG/DL 0-10 N MEDICAL ALCOHOL RESULTS. ALC) SITE WAS PREPPE D WITH BETADINE. <10 M G/DL ARE CONSIDERED NEGA TIVE. >400 MG/DL MAY BE FATAL.RESULTS F OR MEDICAL USE ONL Y. NOT TO BE USED FOR FOR ENSIC PURPOSES. [id number] 12:39:00 Test Item Value Reference Range Interpretation Comments SALICYLATE (test code 3.1 MG/DL See_Comment N [Auto mated message] = SMITH) The system [employer] generated this result transmitted ref erence range: 2.8-20.0 THER. The reference r johan was not used to interpret this result as normal/abnor mal. COMPREHENSIVE METABOLIC [id number] 12:39:00 Test Item Value Reference Range Interpretation [...] (test code = MG Index/DL The system [employer]EM[employer]) generated this result transmit isai reference [...] to interpret this result as normal/abnormal . [id number] 12:39:00 Test Item Value Reference Range Interpretation [...] change s in troponin levelscharacter istic of [place]. [id number] 12:39:00 Test Item Value Reference Range Interpretation Comments ACETAMINOPHEN (test code = ACET) < 2.0 mcG/ML 10.0-30.0 L [id number] 12:39:00 Test Item Value Reference Range Interpretation Comments ALCOHOL (test code = ALC) MG/DL 0-10 COMPREHENSIVE METABOLIC [id number] 12:34:00 Test Item Value Reference Range Interpretation [...] (test code = MG Index/DL The system [employer]) generated this result transmit isai reference [...] to interpret this result as normal/abnormal . [id number] 12:34:00 Test Item Value Reference Range Interpretation Comments TROPONIN-I (test code = TROPI) NG/ML 0.000-0.045 [id number] 12:34:00 Test Item Value Reference Range Interpretation Comments ACETAMINOPHEN (test code = ACET) < 2.0 mcG/ML 10.0-30.0 L [id number] 12:34:00 Test Item Value Reference Range Interpretation Comments ALCOHOL (test code = ALC) MG/DL 0-10 CBC W/AUTO [id number] 12:23:00 Test Item Value Reference Range Interpretation [...] 0.00 K/mm3 0.00-0.05 N NRBC#) CBC WITH [id number] 09:49:19 Test Item Value Reference Range Interpretation Comments WBC (test code = See_Comment [Automated 1990-2) message] The sy stem which generated this result transmitted reference range : 4.20 - 10.70 10*3/?L. The reference range was not used to interpret this result as normal/abnormal . RBC (test code = See_Comment L [Automated 869-8) message] The sy stem which generated this [...] RDW-SD (test code = 42.9 fL 38.5-51.6 31235-2) RDW-CV (test code = 12.4 % 12.1-15.4 788-0) PLT (test code = See_Comment [Automated 777-3) message] The sy stem which generated this result transmitted reference range : 150 - 328 10*3/ ?L. The reference r johan was not used to interpret this result as normal/abnormal . MPV (test code = 9.8 fL 9.8-13.0 59661-2) NRBC/100 WBC (test See_Comment [Automat ed code = 8429073707) message] The system which generated this result transmitted reference range : 0.0 - 10.0 /100 WBCs. The refer ence range was not u sed to interpret th is result as normal/abnormal . NRBC x10^3 (test code <0.01 See_Comment [Auto mated = 1963111529) message] The s ystem which generated this result transmitted reference range : 10*3/?L. The reference range was not used to interpret this result as normal/abnormal . GRAN MAT (NEUT) % 41.9 % (test code = 770-8) IMM GRAN % (test code 0.20 % = 7326454886) LYMPH % (test code = 40.9 % 736-9) MONO % (test code = 13.7 % 5905-5) EOS % (test code = 3.1 % 713-8) BASO % (test code = 0.2 % 706-2) GRAN MAT x10^3(ANC) 1.89 10*3/uL 1.99-6.95 L (test code = 3195479459) IMM GRAN x10^3 (test <0.03 0.00-0.06 code = 1997076181) LYMPH x10^3 (test code 1.85 10*3/uL 1.09-3.23 = 731-0) MONO x10^3 (test code 0.62 10*3/uL 0.36-1.02 = 742-7) EOS x10^3 (test code = 0.14 10*3/uL 0.06-0.53 711-2) BASO x10^3 (test code <0.03 0.01-0.09 = 704-7) Lab Interpretation Abnormal (test code = 44862-6) [facility] [id number] 09:39:48 Test Item Value Reference Range Interpretation Comments TROPONIN I (test 0.002 ng/mL See_Comment [Automated code = 3615802625) message] The system which generated this result [...] ? Lab Interpretation Normal (test code = 83843-9) [facility] METABOLIC PANEL (41193)2020-07-12 09:22:19 Test Item Value Reference Range Interpretation Comments NA (test code = 135 mmol/L 135-145 0118140443) K (test code = 3.6 mmol/L 3.5-5.0 9304989320) CL (test code = 103 mmol/L 98-108 3276565299) CO2 TOTAL (test code = 26 mmol/L 23-31 9073408844) AGAP (test code = 2-16 7345576350) BUN (test code = 17 mg/dL 7-23 0512301378) GLUCOSE (test code = 98 mg/dL 70-110 7824908858) CREATININE (test code = 0.82 mg/dL 0.60-1.25 4363387647) TOTAL BILI (test code = 1.3 mg/dL 0.1-1.1 H 9353786157) CALCIUM (test code = 8.4 mg/dL 8.6-10.6 L 7369168597) T PROTEIN (test code = 6.6 g/dL 6.3-8.2 5897926783) ALBUMIN (test code = 3.7 g/dL 3.5-5.0 1597468002) ALK PHOS (test code = 81 U/L 34-122 3807778478) ALTv (test code = 51 U/L 5-50 H 2-6) AST(SGOT) (test code = 68 U/L 13-40 H 6166520676) eGFR (test code = mL/min/1.73m2 7841493045) GEORGIE (test code = GEORGIE) Association of [...] tests). Lab Interpretation Abnormal (test code = 45648-7) [facility]IP[facility], [id number] 09:22:14 Test Item Value Reference Range Interpretation Comments LIPASE (test code = 7641607991) 106 U/L 0-220 Lab Interpretation (test code = Normal 41265-7) [facility]PTT2021-05-27 09:13:54 Test Item Value Reference Range Interpretation Comments APTT Patient (test See_Comment [Automat ed code = 3173-2) message] The system which generated this result transmitted reference range : 23 - 38 Seconds . The reference range was not used to interpr et this result as normal/abnormal . GEORGIE (test code = GEORGIE) The [facility] patient population mean normal value for aPTT is 30 seconds. Lab Interpretation Normal (test code = 70276-2) [facility]anoPROTHROMBIN TIME / [id number] 09:11:53 Test Item Value Reference Range Interpretation [...] tions. Lab Interpretation (test Normal code = 82047-5) [facility]avirus 2019 nCoV [id number] 08:52:00 Test Item Value Reference Range Interpretation Comments Coronavirus 2019 Negative NEGATIVE This test h as been nCoV Bedside (test authorize d by FDA under code = [id number]) an EUA for use byauthorized laboratories; T [...] and/o r diagnosis of CO VID-19 under Bnpybdn90 4(b)(1) of the Act, 21 U.S .C. 360bbb-3(b)(1), unless theauthorizatio n is terminated or r evoked sooner. DRUGS OF ABUSE [id number] 03:16:00 Test Item Value Reference Range Interpretation [...] poses (e.g employment testing). DRUGS OF ABUSE [id number] 02:47:00 Test Item Value Reference Range Interpretation [...] (test code = PHENCU) DRUGS OF ABUSE [id number] 02:38:00 Test Item Value Reference Range Interpretation [...] NEGATIVE (test code = PHENCU) BASIC METABOLIC [id number] 02:34:00 Test Item Value Reference Range Interpretation [...] 9.7 mg/dL 8.4-10.2 N CA) LIVER FUNCTION [id number] 02:34:00 Test Item Value Reference Range Interpretation [...] U/L 38-126 N (test code = ALKP) [id number] 02:34:00 Test Item Value Reference Range Interpretation Comments ACETAMINOPHEN (test code = ACET) <10 ug/mL 10-30 L [id number] 02:34:00 Test Item Value Reference Range Interpretation Comments SALICYLATE (test code < 1.0 mg/dL Negati ve <2.0 = SMITH) mg/dLTherapeuti c Range <20 mg/dL [id number] 02:34:00 Test Item Value Reference Range Interpretation Comments ALCOHOL (test code = < 10 mg/dL <10 ~~~~~~ ~~~~~~~~~~~~~~~ ALC) ~~~~~~~~~~~~~~~ ~~~~~~~ ~~~~~~~ RESULTS ARE TO BE USED FOR MED ICAL PURPOSES ONLY.F OR LEGAL PURPOSES THE SPECIMEN MUST B E COLLECTED BY A CHAINOF CUSTODY. LEGAL TESTING IS NOT PERFORME D BY THIS FACILITY. ~~~~~~~~~~~~~~~ ~~~~~~~ ~~~~~~~~~~~~~~~ ~~~~~~~ ~~~~~~ URINALYSIS [id number] 02:27:00 Test Item Value Reference Range Interpretation [...] this result as normal/abnormal . CBC W/AUTO [id number] 02:18:00 Test Item Value Reference Range Interpretation [...] x10 3/uL 0.0-0.1 N DRUGS OF ABUSE [id number] 06:47:00 Test Item Value Reference Range Interpretation [...] non-medical pur poses (e.g employment testing). URINALYSIS [id number] 06:29:00 Test Item Value Reference Range Interpretation [...] this result as normal/abnormal . BASIC METABOLIC [id number] 03:28:00 Test Item Value Reference Range Interpretation [...] 9.0 mg/dL 8.4-10.2 N CA) LIVER FUNCTION [id number] 03:28:00 Test Item Value Reference Range Interpretation [...] U/L 38-126 N (test code = ALKP) [id number] 03:28:00 Test Item Value Reference Range Interpretation Comments ACETAMINOPHEN (test code = ACET) <10 ug/mL 10-30 L [id number] 03:28:00 Test Item Value Reference Range Interpretation Comments SALICYLATE (test code < 1.0 mg/dL Negati ve <2.0 = SMITH) mg/dLTherapeuti c Range <20 mg/dL [id number] 03:28:00 Test Item Value Reference Range Interpretation Comments ALCOHOL (test code = < 10 mg/dL <10 ~~~~~~ ~~~~~~~~~~~~~~~ ALC) ~~~~~~~~~~~~~~~ ~~~~~~~ ~~~~~~~ RESULTS ARE TO BE USED FOR MED ICAL PURPOSES ONLY.F OR LEGAL PURPOSES THE SPECIMEN MUST B E COLLECTED BY A CHAINOF CUSTODY. LEGAL TESTING IS NOT PERFORME D BY THIS FACILITY. ~~~~~~~~~~~~~~~ ~~~~~~~ ~~~~~~~~~~~~~~~ ~~~~~~~ ~~~~~~ CBC W/AUTO [id number] 00:30:00 Test Item Value Reference Range Interpretation [...] 3/uL 0.0-0.1 N - CT C-SPINE W/O [id number] 23:37:00 Patient Name: ARLINE RAO Unit No: [id number] EXAMS: CPT CODE: [id number] CT C-SPINE W/O CONT 51137 Location: CT cervical spine, 08/29/19 TECHNIQUE: CT examination of the cervical spine without contrast was performed on a helical scanner without contrast with coronal and sagittal reformatted imaging obtained. This was acquired on CT workstation with 2D reformatted images acquired both coronallyand sagittally. Scanning conducted in axial plane from [...] seen IMPRESSION: No acute traumatic injury at [facility] Reported and signed by: Dinorah Stearns M.D. CC: Lan Cooper MD Dictated Date/Time: 08/29/2019 (2336) Technologist: Ara Steward CTDI: 16.41 DLP: 366.20 Trnscrpt: 08/29/2019 (246) HeatherDAS6 TATUM Mcarthur NAME: RAO[address] PHYS: Lan [place] [address] : 1985 AGE: 33 SEX: M LOC: B.ERS PHONE #: [phone] EXAM DATE: 08/29/2019 STATUS: REG ER FAX #: [phone] RAD #: D/C DT PAGE 1 Signed Report Patient Name: ARLINE RAO Unit No: [id number] EXAMS: CPT CODE: [id number] CT C-SPINE W/O CONT 84572 (Percy nued) Orig Print D/T: S: 08/29/2019 (2016) TATUM Mcarthur NAME: [address]YS: Lan Munroe [place] [address] : 1985 AGE: 33 SEX: M LOC: CASSANDRA PHONE #: [phone] EXAM DATE: 08/29/2019 STATUS: REG ER FAX #: [phone] RAD #: D/C DT PAGE 2 Signed Report- CT HEAD/BRAIN W/O [id number] 23:33:00 Patient Name: ARLINE RAO Unit No: [id number] EXAMS: CPT CODE: [id number] CT HEAD/BRAIN W/O [id number] Location: CT head, 08/29/19 COMPARISON EXAMS: None of the brain TECHNIQUE: CT examination of the brain was performed without contrast on a helical scanner. Scanning conducted from skull base through the vertex in the axial plane acquiring contiguous 5mm slice thickness . The examination was pe rformed on updated helical CT scanner utilizing low-dose radiation technique. Automatic exposure control timing was utilized to minimize radiation dose. CLINICAL HISTORY: Trauma, headache. Fall. Patient hit forehead. Patient presenting to the emergency room FINDINGS: No positive mass-effect, midline sh ift, extra-axial fluid collections or intracranial hemorrhages seen. In particular, no subarachnoid hemorrhage is identified. No intra or extra-axial masses. No skull fracture is seen. The globes are intact. No acute territorial infarction is seen. No cerebral edema is seen. No significant sinus disease is seen. IMPRESSION: No acute finding at 2333 Reported and signed by: Dinorah Stearns M.D. CC: Lan Cooper MD Dictated Date/Time: 08/29/2019 (2333) Technologist: Ara Steward CTDI: 45.96 DLP: 757.79 Trnscrpt: 08/29/2019 (2333) HeatherDAS6 [facility] Lyubov NAME: ARLINE RAO [address] [place] [address] PHYS:Lan Munroe [place], [place] [address] : 1985 AGE: 33 SEX: M LOC: CASSANDRA PHONE #: [phone] EXAM DATE: 08/29/2019 STATUS: REG ER FAX #: [phone] RAD #: D/C DT PAGE 1 Signed Report Patient Name: ARLINE RAO Unit No: [id number] EXAMS: CPT CODE: [id number] CT HEAD/BRAIN W/O CONT 59266 (Continued) Orig Print D/T: S: 08/29/2019 (2336) TATUM Lyubov NAME: ARLINE RAO [address] [place] [address] Blvd PHYS: Lan Mun[place], [place] [address] : 1985 AGE: 33 SEX: M LOC: B.ERS PHONE #: [phone] EXAM DATE: 08/29/2019 STATUS: REG ER FAX #: [phone] RAD #: D/C DT PAGE 2 Signed ReportCOMPREHENSIVE METABOLIC [id number] 23:28:00 Test Item Value Reference Range Interpretation [...] code = LIPINDEX) MG Index/DL CBC W/AUTO [id number] 23:07:00 Test Item Value Reference Range Interpretation [...] 0.00 K/mm3 0.00-0.05 N NRBC#) BASIC METABOLIC [id number] 14:23:00 Test Item Value Reference Range Interpretation [...] NORMAL code = LIPINDEX) Index/DL HEPATIC FUNCTION [id number] 14:23:00 Test Item Value Reference Range Interpretation [...] 68 Unit/L 45-117 N code = ALKP) [id number] 14:23:00 Test Item Value Reference Range Interpretation Comments ALCOHOL (test code = 3 MG/DL 0-10 N MEDICAL ALCOHOL RESULTS. ALC) SITE WAS PREPPE D WITH BETADINE. <10 M G/DL ARE CONSIDERED NEGA TIVE. >400 MG/DL MAY BE FATAL.RESULTS F OR MEDICAL USE ONL Y. NOT TO BE USED FOR FOR ENSIC PURPOSES. BASIC METABOLIC [id number] 14:17:00 Test Item Value Reference Range Interpretation [...] 1 NORMAL = LIPINDEX) Index/DL HEPATIC FUNCTION [id number] 14:17:00 Test Item Value Reference Range Interpretation [...] TOTAL (test code Unit/L 45-117 = ALKP) [id number] 14:17:00 Test Item Value Reference Range Interpretation Comments ALCOHOL (test code = ALC) MG/DL 0-10 CBC W/O [id number] 14:04:00 Test Item Value Reference Range Interpretation [...] = 9.4 fL 7.6-10.4 N MPV) RPR [id number] 14:01:19 Test Item Value Reference Range Interpretation [...] = 12-17-2019 N Expiration Dt) Thyroid Stimulating [id number] 09:09:16 Test Item Value Reference Range Interpretation Comments TSH (test code = TSH) 0.418 mIU/mL 0.270-4.200 Lipid [id number] 08:59:32 Test Item Value Reference Range Interpretation Comments Cholesterol Total 131 mg/dL 0-200 RISK OF HE ART (test code = DISEASEPublishe d by Cholesterol Total) [employer] Giovanna lyte Optimal Borderl ine Increased RiskC HOL <200 200-239 >240TRI G <150 150-199 >200HDL Male >60 <40HDL Fema le >60 <50LDL <100 130 -159 >160LDL Near [facility] is 100-129 Triglycerides (test 81 mg/dL 9-200 [...] LDL/HDL Ratio=L DL Calc/HDL Chol Thyroid Stimulating [id number] 10:03:42 Test Item Value Reference Range Interpretation Comments TSH (test code = TSH) 1.560 mIU/mL 0.270-4.200 Lipid [id number] 09:52:10 Test Item Value Reference Range Interpretation [...] is LDL/HDL Ratio=L DL Calc/HDL Chol RPR [id number] 11:37:43 Test Item Value Reference Range Interpretation Comments RPR Qual (test code = RPR Qual) Non-Reactive Non-Reactive Reactive Control (test code = Reactive Reactive Control) Weak Reactive Control (test Weak Reactive code = Weak Reactive Control) Non-Reactive Control (test code Non-Reactive = Non-Reactive Control) Lot # (test code = Lot #) [id number] N Expiration Dt (test code = 12-17-19 N Expiration Dt) Urinalysis [id number] 23:07:47 Test Item Value Reference Range Interpretation Comments UA WBC (test code = UA WBC) None Seen 0-5 UA RBC (test code = UA RBC) None Seen 0-5 UA Bacteria (test code = UA None Seen Bacteria) UA Squam Epithelial (test code = UA 0-5 Squam Epithelial) Comprehensive Metabolic [id number] 22:29:50 Test Item Value Reference Range Interpretation [...] A/G 1.7 ratio N Ratio) Comprehensive Metabolic [id number] 22:29:50 Test Item Value Reference Range Interpretation [...] the National Kidney Foundation, http://nkdep.ni h.gov Alcohol [id number] 22:29:50 Test Item Value Reference Range Interpretation Comments Ethanol Level (test 0.06 g/dL 0.00-0.01 H Intoxica isai 0.080 g/dL code = Ethanol or more Level) Ethanol Inst (test 58 N code = Ethanol Inst) Comprehensive Metabolic [id number] 22:29:50 Test Item Value Reference Range Interpretation [...] ag e have not been validated by [facility] MDRD study and should be interpreted wit [...] ag e have not been validated by [facility] MDRD study and should be interpreted wit h caution. eGFR R esult Interpretation: eGFR > or = 60 is in the Normal RangeeGF R < 60 may mean kid tran diseaseeGFR < 1 5 may mean kidney failure Rang es recommended by the National Kidney Foundation, http://nkdep.ni h.gov Complete Blood Count with [id number] 22:14:44 Test Item Value Reference Range Interpretation [...] code = IPF) 0 % N Automated [id number] 22:14:44 Test Item Value Reference Range Interpretation Comments Neutro Auto (test code = Neutro 72.2 % 36.0-70.0 H Auto) Lymph Auto (test code = Lymph Auto) 19.6 % 12.0-44.0 [place] Auto (test code = [place] Auto) 6.9 % 0.0-11.0 Eos, Auto (test code = Eos, Auto) 0.0 % 0.0-7.0 Basophil Auto (test code = Basophil 0.4 % 0.0-2.0 Auto) Neutro Absolute (test code = Neutro 6.1 x10 1.6-7.4 Absolute) Lymph Absolute (test code = Lymph 1.67 x10 .50-4.60 Absolute) [place] Absolute (test code = [place] .59 x10 .00-1.20 Absolute) Eos Absolute (test code = Eos 0.00 x10 0.00-0.74 Absolute) Baso Absolute (test code = Baso 0.03 x10 0.00-0.21 Absolute) IG [id number] 22:14:44 Test Item Value Reference Range Interpretation Comments IG (test code = IG) 0.9 % 0.0-5.0 IG Abs (test code = IG Abs) 0 x10 N Urine Drug [id number] 22:14:38 Test Item Value Reference Range Interpretation [...] if desired . Urinalysis with Microscopic if [id number] 21:53:48 Test Item Value Reference Range Interpretation [...] Ind?) rule GL_SJM_UA_MICRO _IN D Urine Drug [id number] 09:31:28 Test Item Value Reference Range Interpretation [...] matory test if desired . Comprehensive Metabolic [id number] 09:17:22 Test Item Value Reference Range Interpretation [...] A/G 2.1 ratio N Ratio) Comprehensive Metabolic [id number] 09:17:22 Test Item Value Reference Range Interpretation [...] National Kidney Foundation, http://nkdep.ni h.gov Comprehensive Metabolic [id number] 09:17:22 Test Item Value Reference Range Interpretation [...] ag e have not been validated by [facility] MDRD study and should be interpreted wit [...] ag e have not been validated by [facility] MDRD study and should be interpreted wit h caution. eGFR R esult Interpretation: eGFR > or = 60 is in the Normal RangeeGF R < 60 may mean kid tran diseaseeGFR < 1 5 may mean kidney failure Rang es recommended by the National Kidney Foundation, http://nkdep.ni h.gov IG Oehpj1709-15-55 09:08:10 Test Item Value Reference Range Interpretation Comments IG (test code = IG) 0.4 % 0.0-5.0 IG Abs (test code = IG Abs) 0 x10 N Complete Blood Count with [id number] 09:08:09 Test Item Value Reference Range Interpretation [...] code = IPF) 0 % N Automated [id number] 09:08:09 Test Item Value Reference Range Interpretation Comments Neutro Auto (test code = Neutro 73.6 % 36.0-70.0 H Auto) Lymph Auto (test code = Lymph Auto) 17.3 % 12.0-44.0 [place] Auto (test code = [place] Auto) 8.3 % 0.0-11.0 Eos, Auto (test code = Eos, Auto) 0.1 % 0.0-7.0 Basophil Auto (test code = Basophil 0.3 % 0.0-2.0 Auto) Neutro Absolute (test code = Neutro 5.1 x10 1.6-7.4 Absolute) Lymph Absolute (test code = Lymph 1.19 x10 .50-4.60 Absolute) [place] Absolute (test code = [place] .57 x10 .00-1.20 Absolute) Eos Absolute (test code = Eos 0.01 x10 0.00-0.74 Absolute) Baso Absolute (test code = Baso 0.02 x10 0.00-0.21 Absolute) ADC / LCC - DRUG SCREEN [id number] 02:56:00 Test Item Value Reference Range Interpretation Comments BENZO U (test code = Negative Negative 3896694745) EARL U (test code = Negative Negative 7397628123) AMPHET (test code = Presumptive Positive Negative A 4195961895) THC (test code = Negative Negative 4957104495) METHADONE (test code = Negative Negative 5988075019) Meth U (test code = Presumptive Positive Negative A 8693759122) OPIATES (test code = Negative Negative 3483246771) Cocaine Metabolite (test Negative Negative code = 2130632784) PROPOXY (test code = Negative Negative 6935685595) Tric U (test code = Negative Negative 7974708074) PCP (test code = Negative Negative 6407377578) OXYCOD (test code = Negative Negative 1043391671) GEORGIE (test code = GEORGIE) Urine Drug [...] testing). Lab Interpretation (test Abnormal code = 14076-8) [facility] Test Item Value Reference Range Interpretation Comments ACETAMINOP (test code = <10.0 10-30 L 1106098352) GEORGIE (test code = GEORGIE) Toxic: Greater than 200 ug/mL @ 4 hour post ingestion or greater than 50 ug/mL @ 12 hour post ingestion Lab Interpretation (test Abnormal code = 93315-5) [facility] 02:40:00 Test Item Value Reference Range Interpretation Comments SALICYLATE (test code <10 mg/L = 0662954325) GEORGIE (test code = GEORGIE) Therapeutic Range:? Analgesic and Antipyretic Use? 20-100 mg/L? Anti-Inflammatory Use? 100-250 mg/LToxic Range:? Greater than 300 mg/L [facility] (ETOH) [id number] 02:40:00 Test Item Value Reference Range Interpretation Comments ALCOHOL (test code = <10 mg/dL 3700064423) GEORGIE (test code = GEORGIE) <10 Qzuapjxt95-960 Toxic>100 Depression of [place] SPONGE BOAT>400 Fatalities Reported [facility] (NA, K, CL, CO2, Glucose, BUN, Creatinine, CA)2018-11-05 02:35:00 Test Item Value Reference Range Interpretation Comments NA (test code = 142 mmol/L 135-145 2111036251) K (test code = 3.5 mmol/L 3.5-5 7639242630) CL (test code = 107 mmol/L 98-108 4929379141) CO2 TOTAL (test code = 25 mmol/L 23-31 3002617971) AGAP (test code = 2-16 9650766046) BUN (test code = 12 mg/dL 7-23 0154798162) GLUCOSE (test code = 90 mg/dL 70-110 9080189252) CREATININE (test code 0.77 mg/dL 0.6-1.25 = 1367415699) CALCIUM (test code = 9.3 mg/dL 8.6-10.6 1433346633) eGFR Calculation mL/min/1.73m2 (Non-) (test code = 0601229292) eGFR Calculation mL/min/1.73m2 () (test code = 8348121630) GEORGIE (test code = GEORGIE) Association of [...] or abnormalities in imaging tests). [facility] (ALB, T.PRO, BILI T, BU/BC, ALT, AST, ALK PHOS)2018-11-05 02:35:00 Test Item Value Reference Range Interpretation Comments TOTAL BILI (test code = 3138630148) 1.0 mg/dL 0.1-1.1 BILI UNCON (test code = 7503860451) 0.8 mg/dL 0.1-1.1 BILI CONJ (test code = 5925646386) 0.0 mg/dL 0-0.3 T PROTEIN (test code = 2397371016) 7.0 g/dL 6.3-8.2 ALBUMIN (test code = 0423746829) 4.4 g/dL 3.5-5 ALK PHOS (test code = 5664925795) 71 U/L 34-122 ALT(SGPT) (test code = 5887103464) 39 U/L 9-51 AST(SGOT) (test code = 5250914362) 40 U/L 13-40 Lab Interpretation (test code = Normal 66247-7) [facility]CB WITH [id number] 02:10:00 Test Item Value Reference Range Interpretation Comments WBC (test code = See_Comment [Automated 8897-2) message] The sy stem which generated this result transmitted reference range : 4.20 - 10.70 10*3/?L. The reference range was not used to interpret this result as normal/abnormal . RBC (test code = See_Comment [Automated 946-8) message] The sy stem which generated this [...] RDW-SD (test code = 46.3 fL 38.5-51.6 17884-1) RDW-CV (test code = 13.1 % 12.1-15.4 788-0) PLT (test code = See_Comment [Automated 777-3) message] The sy stem which generated this result transmitted reference range : 150 - 328 10*3/ ?L. The reference r johan was not used to interpret this result as normal/abnormal . MPV (test code = 9.9 fL 9.8-13 33837-0) NRBC/100 WBC (test See_Comment [Automat ed code = 7671615582) message] The system which generated this result transmitted reference range : 0.0 - 10.0 /100 WBCs. The refer ence range was not u sed to interpret th is result as normal/abnormal . NRBC x10^3 (test code <0.01 See_Comment [Auto mated = 3251447219) message] The s ystem which generated this result transmitted reference range : 10*3/?L. The reference range was not used to interpret this result as normal/abnormal . GRAN MAT (NEUT) % 50.8 % (test code = 770-8) IMM GRAN % (test code 0.60 % = 2010882228) LYMPH % (test code = 33.8 % 736-9) MONO % (test code = 14.4 % 5905-5) EOS % (test code = 0.0 % 713-8) BASO % (test code = 0.4 % 706-2) GRAN MAT x10^3(ANC) 2.62 10*3/uL 1.99-6.95 (test code = 2000997277) IMM GRAN x10^3 (test 0.03 10*3/uL 0-0.06 code = 9168296117) LYMPH x10^3 (test code 1.74 10*3/uL 1.09-3.23 = 731-0) MONO x10^3 (test code 0.74 10*3/uL 0.36-1.02 = 742-7) EOS x10^3 (test code = <0.03 0.06-0.53 L 711-2) BASO x10^3 (test code <0.03 0.01-0.09 = 704-7) Lab Interpretation Abnormal (test code = 15153-7) [facility] Metabolic [id number] 13:14:00 Test Item Value Reference Range Interpretation [...] been validated by e MDRD study and latosha d be interpretedwith caution.eGFR Re sult Interpretation: eGFR > or = 60 is in t he Normal RangeeGF R < 60 may mean kidney diseaseeGFR < 1 5 may mean kidney failureRange s recommended by the National Kidney Foundation,http ://nkd ep.nih.gov [id number] 13:09:00 Test Item Value Reference Range Interpretation [...] g/dL 0.00-0.01 N code = ETOHU) Urinalysis Udikhqmu0143-48-44 12:59:00 Test Item Value Reference Range Interpretation Comments Color (test code = Yellow Yellow,Straw,Pl N COLOR) yellow Clarity (test code = Clear Clear N CLAR) Specific [place] (test 1.027 1.001-1.035 N code = SPGR) [...] code = Few /HPF BACT) CBC with Ikvhqsyjmlez7319-93-17 12:42:00 Test Item Value Reference Range Interpretation [...] code = ALYMPH) 2.3 K/cumm 0.5-4.6 N [place] Abs (test code = AMONO) 0.6 K/cumm 0.0-1.2 N Eos Abs (test code = AEOS) 0.09 K/cumm 0.00-0.74 N Baso Abs (test code = ABASO) 0.0 K/cumm 0.00-0.21 N Hepatic Function Lfjij0588-70-62 18:55:00 Test Item Value Reference Range Interpretation [...] = ALT) 47 U/L 1-41 H HIV Areun7321-75-83 12:45:00 Test Item Value Reference Range Interpretation Comments HIV 1/2 Antibody Non-Reactive Non-Reactive N HIV1/2 Anti body screen (test code = result indicate s the HIV1/2AB) absence of HIV1 and HMT9dkdcccuum.H owever, A Non-Reactive screen result does not [...] rule o ut exposure or infection.If ac [place] HIV-1 is suspec isai, HIV RNA Quantit ative is recommended. RPR, Uezu6982-42-93 21:30:00 Test Item Value Reference Range Interpretation Comments RPR (test code = RPR) Non-Reactive Non-Reactive N Thyroid Stimulating Hormone (TSH)2017-03-17 09:55:00 Test Item Value Reference Range Interpretation Comments TSH (test code = TSH) 0.94 mIU/mL 0.270-4.200 N Lipid Epsmuzp6419-66-28 09:53:00 Test Item Value Reference Range Interpretation [...] DISEASEPu blished by [employer] Heart AssociationAnal yte Optimal Boderli ne Increased RiskC HOL <200 200-239 >240TRI G <150 150-199 >200HDL Male: >60 <40HDL Fema le: >60 <50LDL <100 130 -159 >160LDL NEAR OP TIMAL IS 100-129 VLDL (test code = 12 mg/dL 5-40 N VLDL) LDL/HDL (test code = 1 LDLPHDL) Urinalysis Ubjvkztn9277-78-71 15:09:00 Test Item Value Reference Range Interpretation Comments Color (test code = Yellow Yellow,Straw,Pl N COLOR) yellow Clarity (test code = Clear Clear N CLAR) Specific [place] (test 1.028 1.001-1.035 N code = SPGR) [...] = 0-1 Granular /HPF CASTS) Comprehensive Metabolic Rgcxq7971-88-59 14:24:00 Test Item Value Reference Range Interpretation [...] by the National Kidney Foundation,http ://nkd ep.nih.gov [id number] 14:20:00 Test Item Value Reference Range Interpretation [...] 0.00-0.01 N code = ETOHU) CBC with Sdjesizkeqhn6331-85-11 14:08:00 Test Item Value Reference Range Interpretation [...] code = ALYMPH) 2.2 K/cumm 0.5-4.6 N [place] Abs (test code = AMONO) 0.9 K/cumm 0.0-1.2 N Eos Abs (test code = AEOS) 0.06 K/cumm 0.00-0.74 N Baso Abs (test code = ABASO) 0.0 K/cumm 0.00-0.21 N
[2022-01-06 03:45] LABS: Absolute Lymphocytes (CBC) 1.3 K/uL (0.7-4.9); Hematocrit 47.9 % (39.6-49.0); Lymphocytes % 18.2 % (15.3-44.8); MCV 95.5 fL (80-100); MPV 7.7 fL (7.6-11.3); RBC Red Blood Cell Count 5.02 M/uL (4.33-5.43)
[2022-01-06 03:52] LABS: Urine Blood Trace-lysed (Negative); Urine Glucose Negative (Negative); Urine Protein Negative (Negative); Urine Specific Gravity <=1.005 (1.005-1.030)
[2022-01-06 04:32] LABS: Barbiturates NEGATIVE (NEGATIVE); Benzodiazepines NEGATIVE (NEGATIVE); Cocaine NEGATIVE (NEGATIVE); METHAMPHETAM POSITIVE (NEGATIVE); Methadone NEGATIVE (NEGATIVE); Opiates NEGATIVE (NEGATIVE); Phencyclidine NEGATIVE (NEGATIVE); THC Cannibis NEGATIVE (NEGATIVE)
[2022-01-06 04:45] LABS: SARS-COV-2 RT PCR NEGATIVE (NEGATIVE)
[2022-01-06 04:57] LABS: ALT/SGPT 41 U/L (12-78); AST/SGOT 42 U/L (15-37); Alkaline Phosphatase 93 U/L (45-117); BUN Blood Urea Nitrogen 8 mg/dL (7-18); Bicarbonate 27 mmol/L (21-32); Bilirubin Total 0.6 mg/dL (0.2-1.0); Glomerular Filtration Rate 132 ml/min (=/>90); Glucose Level 99 mg/dL (74-106); Potassium 3.7 mmol/L (3.5-5.1); Protein, Total 7.7 g/dL (6.4-8.2); Sodium Level 139 mmol/L (136-145); Troponin High Sensitivity 5.2 pg/mL (<58.9)
[2022-01-06] MEDS ORDERED: LORAZEPAM 1 MG TABLET ONE (05:01)
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
[2022-01-06 14:34] VITALS: BP 139/78; TEMP 97.2; O2SAT 99
--- NOTE | 2022-01-06 15:28 | EKG ---
Test Date: 2022-01-06 Test Time: 03:38:07 Director Of Medical Staff Services: MIGUEL MEASUREMENT RESULTS: Intervals: Rate: 103 HI: 140 QRSD: 82 QT: 340 QTc: 445 [place]: P: 29 HI: 140 QRS: 60 T: 59 INTERPRETIVE STATEMENTS: Sinus tachycardia Otherwise normal ECG Compared to ECG 09/15/2021 19:39:13 Sinus rhythm no longer present Electronically Signed On 01-06-22 15:27:19 GLASS CARRIER by Reza Salas
== END 2022-01-06 14:29 ==
LOC: ER 02:27
DX: R45.851 Suicidal ideations (principal); F15.10 Other stimulant abuse, uncomplicated; F20.9 Schizophrenia, unspecified; Z20.822 Contact with and (suspected) exposure to COVID-19; Z88.5 Allergy status to narcotic agent; Z88.6 Allergy status to analgesic agent; Z88.8 Allergy status to other drugs, medicaments and biological substances
CPT/HCPCS: 93005; 85025; 36415; 80320; 80329 ×2; 84484; 80053; 0240U; 80307; 99285; 81003; 81015

== ENCOUNTER 2023-10-23 09:28 | Emergency (ER) | payer OTHER ==
[2023-10-23] MEDS ORDERED: NA CHLORIDE 0.9% 1,000 ML ONE (09:48)
[2023-10-23] MEDS ORDERED: LORazepam 2 MG/ML VIAL ONE (09:48)
[2023-10-23 10:06] LABS: PT Prothrombin Time 12.7 SECONDS (9.4-12.5); PTT, Activated Partial Thromb 32.3 SECONDS (24.3-36.9); Protime INR 1.14
[2023-10-23 10:12] LABS: ALT/SGPT 37 U/L (16-61); AST/SGOT 45 U/L (15-37); Albumin 3.4 g/dL (3.4-5.0); Albumin/Globulin Ratio 0.8 (1.1-1.8); Alkaline Phosphatase 108 U/L (45-117); Anion Gap 16.2 mEq/L (5.0-15.0); BUN Blood Urea Nitrogen 15 mg/dL (7-18); Bicarbonate 22 mEq/L (21-32); Bilirubin Direct 0.3 mg/dL (0-0.2); Bilirubin Indirect, Calculated 0.9 mg/dL (0.2-0.8); Bilirubin Total 1.2 mg/dL (0.2-1.0); Globulin 4.4 g/dL (2.3-3.5); Glomerular Filtration Rate 137 ml/min (=/>90); Glucose Level 87 mg/dL (74-106); Potassium 3.2 mEq/L (3.5-5.1); Protein, Total 7.8 g/dL (6.4-8.2); Sodium Level 133 mEq/L (136-145)
[2023-10-23 10:18] LABS: Absolute Eosinophils 0.1 K/uL (0-0.5); Absolute Lymphocytes (CBC) 1.8 K/uL (0.7-4.9); Absolute Monocytes 0.8 K/uL (0.1-1.3); Absolute Neutrophil 9.9 K/uL (1.8-8.0); Basophils % 0.2 % (0-1.3); Eosinophils % 0.6 % (0-4.4); Hematocrit 36.6 % (39.6-49.0); Hemoglobin 11.7 g/dL (13.6-17.9); Lymphocytes % 14.4 % (15.3-44.8); MCH 27.3 pg (27.0-35.0); MCHC 31.9 g/dL (32.0-36.0); MCV 85.7 fL (80-100); MPV 7.7 fL (7.6-11.3); Monocytes % 6.2 % (3.3-12.3); Neutrophils % 78.6 % (41.7-73.7); Platelets 503 thou/uL (152-406); RBC Red Blood Cell Count 4.27 M/uL (4.33-5.43)
[2023-10-23 11:57] LABS: Barbiturates NEGATIVE (NEGATIVE); Benzodiazepines POSITIVE (NEGATIVE); Cocaine NEGATIVE (NEGATIVE); METHAMPHETAM POSITIVE (NEGATIVE); Methadone NEGATIVE (NEGATIVE); Opiates NEGATIVE (NEGATIVE); Phencyclidine NEGATIVE (NEGATIVE); THC Cannibis NEGATIVE (NEGATIVE)
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
[2023-10-23 15:20] VITALS: TEMP 98
[2023-10-23 15:35] VITALS: BP 117/75; O2SAT 99
--- NOTE | 2023-10-26 17:10 | EKG ---
Test Date: 2023-10-23 Test Time: 10:26:36 Police Liaison Officer: KESHIA MEASUREMENT RESULTS: Intervals: Rate: 120 TX: 134 QRSD: 82 QT: 322 QTc: 455 [place]: P: 34 TX: 134 QRS: 77 T: 64 INTERPRETIVE STATEMENTS: Sinus tachycardia Possible Lateral infarct, age undetermined Abnormal ECG Compared to ECG 01/06/2022 03:38:07 Myocardial infarct finding now present Electronically Signed On 10-26-23 17:01:43 CDT by Reza Salas
== END 2023-10-23 15:06 | disposition home or self-care (01) ==
LOC: ER 09:28
DX: F15.10 Other stimulant abuse, uncomplicated (principal); E87.1 Hypo-osmolality and hyponatremia; D64.9 Anemia, unspecified; F20.9 Schizophrenia, unspecified
CPT/HCPCS: 96361; 93005; 85025; 80048; 36415; 85610; 80076; 85730; 80307; 96375; 96374; 99285; 80143; 80179; 82077; J7030

== ENCOUNTER 2023-11-02 18:19 | Inpatient (IN) | payer OTHER ==
[2023-11-02] MEDS ORDERED: VANCOMYCIN 1 GM/VIAL ONE (20:33)
[2023-11-02] MEDS ORDERED: NA CHLORIDE 0.9% 250 ML ONE (20:33)
[2023-11-02] MEDS ORDERED: NA CHLORIDE 0.9% 100 ML ONE (20:33)
[2023-11-02 20:34] LABS: Absolute Lymphocytes (CBC) 1.3 K/uL (0.7-4.9); Absolute Monocytes 1.1 K/uL (0.1-1.3); Absolute Neutrophil 9.1 K/uL (1.8-8.0); Basophils % 0.1 % (0-1.3); Eosinophils % 0.3 % (0-4.4); Hematocrit 35.5 % (39.6-49.0); Hemoglobin 11.7 g/dL (13.6-17.9); Lymphocytes % 11.2 % (15.3-44.8); MCH 27.5 pg (27.0-35.0); MCHC 33.1 g/dL (32.0-36.0); MCV 83.1 fL (80-100); MPV 7.1 fL (7.6-11.3); Monocytes % 9.8 % (3.3-12.3); Neutrophils % 78.6 % (41.7-73.7); Nucleated Red Blood Cells % 0.1 % (0-0); Platelets 446 thou/uL (152-406); RBC Red Blood Cell Count 4.27 M/uL (4.33-5.43); Red Cell Distribution Width 17.4 % (12.1-15.2)
[2023-11-02] MEDS ORDERED: CEFEPIME 1 GM/VIAL ONE (20:34)
[2023-11-02 20:38] LABS: PT Prothrombin Time 14.2 SECONDS (9.4-12.5); PTT, Activated Partial Thromb 33.7 SECONDS (24.3-36.9); Protime INR 1.28
[2023-11-02] MEDS ORDERED: ONDANSETRON 4 MG/2 ML VIAL ONE (20:43)
[2023-11-02 20:44] LABS: Albumin 3.1 g/dL (3.4-5.0); Albumin/Globulin Ratio 0.6 (1.1-1.8); Anion Gap 7.6 mEq/L (5.0-15.0); Bilirubin Total 1.8 mg/dL (0.2-1.0); Globulin 5.3 g/dL (2.3-3.5); Potassium 3.6 mEq/L (3.5-5.1); Protein, Total 8.4 g/dL (6.4-8.2)
[2023-11-02] MEDS ORDERED: FENTANYL CITR 100 MCG/2 ML ONE (20:55)
[2023-11-02 21:11] LABS: Specific Gravity 1.015 (1.005-1.030); Sqamous Epithelial None Seen /HPF (None Seen); Urine Bacteria >50 /HPF (<20); Urine Bilirubin NEGATIVE (Negative); Urine Blood 1+ (Negative); Urine Clarity Extremely Turbid (Clear); Urine Color Yellow (Yellow); Urine Crystals Unidentified Few /HPF (None Seen); Urine Culture Reflex Order REFLEXED; Urine Glucose NEGATIVE (Negative); Urine Ketones 1+ (Negative); Urine Microscopic Reflex YN ORDER UMIC; Urine Mucus 2+ /HPF (None Seen); Urine Nitrite NEGATIVE (Negative); Urine Protein 1+ (Negative); Urine Urobilinogen Normal (Normal); Urine Yeast (Budding) Trace /HPF (None Seen)
[2023-11-02 21:12] LABS: Barbiturates NEGATIVE (NEGATIVE); Benzodiazepines NEGATIVE (NEGATIVE); Cocaine POSITIVE (NEGATIVE); METHAMPHETAM POSITIVE (NEGATIVE); Methadone NEGATIVE (NEGATIVE); Opiates NEGATIVE (NEGATIVE); Phencyclidine NEGATIVE (NEGATIVE); THC Cannibis NEGATIVE (NEGATIVE)
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
[2023-11-02] MEDS ORDERED: ONDANSETRON 4 MG/2 ML VIAL IV PRN (22:54)
[2023-11-02] MEDS: VANCOMYCIN 1 GM in NA CHLORIDE 0.9% 250 ML IVPB SCH (22:58)
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
[2023-11-03] MEDS: NA CHLORIDE 0.9% 1,000 ML IV SCH (00:54)
[2023-11-03] MEDS: ALPRAZOLAM 0.25 MG TABLET PO PRN (00:55)
[2023-11-03] MEDS: MORPHINE 2 MG/ML SYR IV PRN (01:46)
[2023-11-03] MEDS: VANCOMYCIN 500 MG in NA CHLORIDE 0.9% 100 ML IVPB ONE (02:46)
[2023-11-03] MEDS: ENOXAPARIN 40 MG/0.4 ML SQ SCH (07:13)
[2023-11-03 07:40] LABS: Absolute Eosinophils 0.1 K/uL (0-0.5); Absolute Lymphocytes (CBC) 1.2 K/uL (0.7-4.9); Absolute Monocytes 0.6 K/uL (0.1-1.3); Absolute Neutrophil 3.8 K/uL (1.8-8.0); Basophils % 0.2 % (0-1.3); Eosinophils % 1.8 % (0-4.4); Hematocrit 33.1 % (39.6-49.0); Hemoglobin 10.9 g/dL (13.6-17.9); Lymphocytes % 21.2 % (15.3-44.8); MCH 27.8 pg (27.0-35.0); MCV 84.2 fL (80-100); MPV 7.5 fL (7.6-11.3); Monocytes % 10.3 % (3.3-12.3); Neutrophils % 66.5 % (41.7-73.7); Platelets 403 thou/uL (152-406); RBC Red Blood Cell Count 3.93 M/uL (4.33-5.43); Red Cell Distribution Width 17.8 % (12.1-15.2)
[2023-11-03 07:51] LABS: Albumin 2.7 g/dL (3.4-5.0); Albumin/Globulin Ratio 0.6 (1.1-1.8); Anion Gap 8.5 mEq/L (5.0-15.0); Globulin 4.5 g/dL (2.3-3.5); Potassium 3.5 mEq/L (3.5-5.1); Protein, Total 7.2 g/dL (6.4-8.2)
[2023-11-03] MEDS: HYDROCODONE/APAP 5/325 MG TAB PO PRN (09:11)
[2023-11-03] MEDS: CEFTRIAXONE 1,000 MG in NA CHLORIDE 0.9% 50 ML IVPB SCH (09:19)
[2023-11-03] MEDS: VANCOMYCIN 1.5 GM in NA CHLORIDE 0.9% 500 ML IVPB SCH (11:59)
[2023-11-03] MEDS: POTASSIUM 25 MEQ EFFERV TAB PO ONE (13:45)
--- NOTE | 2023-11-03 16:41 | P.PN ---
Subjective Date of Service: 11/03/23 Chief Complaint: Right Lower extremity swelling and redness Patient complaining of uncontrolled pain in the bilateral buttocks. No recorded fever. Physical Examination - Vital Signs Temperature: 97.2 F Blood Pressure: 122/56 Pulse: 89 Respirations: 16 Pulse Ox (%): 96 - Studies Laboratory Data (last 24 hrs) 11/02/23 11/02/23 11/02/23 20:00 20:00 20:00 WBC 11.60 H Hgb 11.7 L Hct 35.5 L Plt Count 446 H PT 14.2 H INR 1.28 APTT 33.7 Sodium 132 L Potassium 3.6 BUN 9 Creatinine 0.51 L Glucose 96 Total Bilirubin 1.8 H AST 24 ALT 27 Alkaline Phosphatase 111 Assessment And Plan - Plan Physical examination General: Alert and oriented x3, NAD, HEENT: Conjunctiva not pale, anicteric sclera Neck: Supple, no elevated JVD Heart: Heart sounds 1 and 2 normal, regular rhythm, normal rate, no pedal edema Lungs: Clear to auscultation bilaterally, adequate breath sounds bilaterally, no rhonchi or crackles. Abdomen: Soft, nondistended, nontender, normal bowel sounds. Extremities: No tenderness, no deformity Skin: Normal skin turgor, no rash, no nodules or ulcers. Neuro: No focal motor deficit. Normal speech. Psychiatry: Normal mood, no agitation. Diagnosis Right lower extremity cellulitis Leukocytosis Continue IV antibiotic Follow cultures. Monitor CBC Anemia of chronic disease Stable Monitor CBC closely UTI Continue antibiotic Follow urine culture Polysubstance abuse Cessation advised. Decubitus ulcer History of paraplegia General Surgery consulted, Dr. Moore input appreciated. Continue local wound care Wound care team consulted. Patient is on antibiotics. DVT prophylaxis: Lovenox Advanced directive: full code
--- NOTE | 2023-11-03 16:57 | EKG ---
Test Date: 2023-11-02 Test Time: 20:02:07 English As A Second Language Teacher: FIDELINA MEASUREMENT RESULTS: Intervals: Rate: 112 NC: 122 QRSD: 82 QT: 320 QTc: 436 Ernest: P: 45 NC: 122 QRS: 75 T: 62 INTERPRETIVE STATEMENTS: Sinus tachycardia Otherwise normal ECG Compared to ECG 10/23/2023 10:26:36 Myocardial infarct finding no longer present Electronically Signed On 11-03-23 16:54:51 CDT by Reza Salas
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
[2023-11-04 07:31] LABS: Anion Gap 8.7 mEq/L (5.0-15.0); BUN Blood Urea Nitrogen 5 mg/dL (7-18); Bicarbonate 25 mEq/L (21-32); Glucose Level 91 mg/dL (74-106); Magnesium 2.2 mg/dL (1.6-2.4); Potassium 3.7 mEq/L (3.5-5.1); Sodium Level 139 mEq/L (136-145)
[2023-11-04 07:33] LABS: Glomerular Filtration Rate 165 ml/min (=/>90)
[2023-11-04] MEDS: POTASSIUM 25 MEQ EFFERV TAB PO ONE (08:02)
[2023-11-04] MEDS: ASCORBIC ACID 500 MG TABLET PO SCH (08:02)
[2023-11-04] MEDS: ZINC SULFATE 220 MG CAP PO SCH (08:02)
[2023-11-04] MEDS: ENSURE HIGH PROTEIN 237 ML CAN PO SCH (08:03)
[2023-11-04] MEDS ORDERED: POTASSIUM 25 MEQ EFFERV TAB PO SCH (09:00)
--- NOTE | 2023-11-04 15:47 | P.PN ---
Subjective Date of Service: 11/04/23 Chief Complaint: Right Lower extremity swelling and redness Patient is complaining of pain in the bilateral buttocks. No recorded fever. Physical Examination - Vital Signs Temperature: 98.1 F Blood Pressure: 134/75 Pulse: 77 Respirations: 18 Pulse Ox (%): 97 Assessment And Plan - Plan Physical examination General: Alert and oriented x3, NAD, HEENT: Conjunctiva not pale, anicteric sclera Neck: Supple, no elevated JVD Heart: Heart sounds 1 and 2 normal, regular rhythm, normal rate, no pedal edema Lungs: Clear to auscultation bilaterally, adequate breath sounds bilaterally, no rhonchi or crackles. Abdomen: Soft, nondistended, nontender, normal bowel sounds. Extremities: No tenderness, no deformity Skin: Normal skin turgor, no rash, no nodules or ulcers. Neuro: No focal motor deficit. Normal speech. Psychiatry: Normal mood, no agitation. Diagnosis Right lower extremity cellulitis Leukocytosis Continue IV antibiotic Blood cultures: No growth. Anemia of chronic disease Stable Monitor CBC closely UTI Continue antibiotic Follow urine culture Polysubstance abuse Cessation advised. Decubitus ulcer History of paraplegia Patient seen by General Surgery Dr. Moore-local wound care recommended Wound care team consulted. Patient is on antibiotics. Analgesics as needed. DVT prophylaxis: Lovenox Advanced directive: full code
[2023-11-04] MEDS: VANCOMYCIN 1.5 GM in NA CHLORIDE 0.9% 500 ML IVPB SCH (18:35)
[2023-11-05] MEDS: Meropenem 1,000 MG in NA CHLORIDE 0.9% 100 ML IV SCH (10:38)
[2023-11-05] MEDS: DOXYCYCLINE 100 MG CAP PO SCH (10:38)
--- NOTE | 2023-11-05 15:34 | P.PN ---
Subjective Date of Service: 11/05/23 Chief Complaint: Right Lower extremity swelling and redness Patient reports no new complain. Wound VAC has been placed on the gluteal wounds No recorded fever. Physical Examination - Vital Signs Temperature: 98.1 F Blood Pressure: 108/64 Pulse: 68 Respirations: 16 Pulse Ox (%): 95 - Studies Microbiology Data (last 24 hrs): 11/02/23 20:50 Clean Catch Urine [place] Count - Final >100,000 CFU/ML. 11/02/23 20:50 Clean Catch Urine - Final Escherichia Coli Esbl Morganella Morganii Assessment And Plan - Plan Physical examination General: Alert and oriented x3, NAD, Neck: Supple, no elevated JVD Heart: Heart sounds 1 and 2 normal, regular rhythm, normal rate, no pedal edema Lungs: Clear to auscultation bilaterally, adequate breath sounds bilaterally, no rhonchi or crackles. Abdomen: Soft, nondistended, nontender, normal bowel sounds. Extremities: No tenderness. Skin: Bilateral stage IV gluteal ulcers Neuro: Paraplegia. Normal speech. Psychiatry: Normal mood, no agitation. Diagnosis Right lower extremity cellulitis Leukocytosis Leukocytosis resolved, lower extremity erythema resolved Patient is on IV antibiotics. Blood cultures: No growth. Anemia of chronic disease Stable Monitor CBC closely UTI Urine culture: Multiple growths Antibiotics changed to IV meropenem. Polysubstance abuse Cessation advised. Bilateral gluteal decubitus ulcer stage IV History of paraplegia Patient seen by General Surgery Dr. Moore-local wound care recommended Wound care team consulted. Wound VAC applied. Wound culture: Multiple organisms. Antibiotics changed to IV meropenem. [place] as needed for pain. DVT prophylaxis: Lovenox Advanced directive: full code Disposition: Long-term care pending acceptance by facility. Social service team assisting with arrangement.
[2023-11-06] MEDS: ALPRAZOLAM 0.25 MG TABLET PO ONE (04:29)
[2023-11-06 06:39] LABS: Anion Gap 7.6 mEq/L (5.0-15.0); Potassium 3.6 mEq/L (3.5-5.1)
[2023-11-06] MEDS: POTASSIUM CL SA 10 MEQ TAB PO ONE (08:35)
--- NOTE | 2023-11-06 17:22 | P.PN ---
Subjective Date of Service: 11/06/23 Chief Complaint: Right Lower extremity swelling and redness Patient reports intermittent pain in bilateral gluteal area Wound VAC has been placed on the gluteal wounds. Nursing staff report patient removed the wound VAC multiple times in order to leave the room for fresh air. No recorded fever. Physical Examination - Vital Signs Temperature: 98.0 F Blood Pressure: 120/72 Pulse: 60 Respirations: 16 Pulse Ox (%): 96 Assessment And Plan - Plan Physical examination General: Alert and oriented x3, NAD, Neck: Supple, no elevated JVD Heart: Heart sounds 1 and 2 normal, regular rhythm, normal rate, no pedal edema Lungs: Clear to auscultation bilaterally, adequate breath sounds bilaterally, no rhonchi or crackles. Abdomen: Soft, nondistended, nontender, normal bowel sounds. Extremities: No tenderness. Skin: Bilateral stage IV gluteal ulcers Neuro: Paraplegia. Normal speech. Psychiatry: Normal mood, no agitation. Diagnosis Right lower extremity cellulitis Leukocytosis Leukocytosis resolved, lower extremity erythema resolved Patient is on IV antibiotics. Blood cultures: No growth. Anemia of chronic disease Stable Monitor CBC closely UTI Urine culture: Multiple growths Continue IV meropenem. Polysubstance abuse Cessation advised. Bilateral gluteal decubitus ulcer stage IV History of paraplegia Patient seen by General Surgery Dr. Moore-local wound care recommended Wound care team consulted. Wound VAC applied. Wound culture: Multiple organisms. Antibiotics changed to IV meropenem. [place] as needed for pain. Patient advised to keep the wound VAC on and not to remove it as he fleming without informing nursing staff. DVT prophylaxis: Lovenox Advanced directive: full code Disposition: Long-term care pending acceptance by facility. Social service team assisting with arrangement.
[2023-11-06] MEDS: HYDROCODONE/APAP 10/325 TAB PO PRN (18:31)
[2023-11-06] MEDS: POLYETHYL GLY 3350 17 GM/DOSE PO SCH (18:31)
[2023-11-06] MEDS: ALPRAZOLAM 0.5 MG TABLET PO ONE (19:37)
--- NOTE | 2023-11-07 12:57 | P.PN ---
Subjective Date of Service: 11/07/23 Chief Complaint: Right Lower extremity swelling and redness Patient has no new complain Wound VAC has been placed on the gluteal wounds. Physical Examination - Vital Signs Temperature: 97.3 F Blood Pressure: 117/65 Pulse: 73 Respirations: 16 Pulse Ox (%): 96 Assessment And Plan - Plan Physical examination General: Alert and oriented x3, NAD, Heart: Heart sounds 1 and 2 normal, regular rhythm, normal rate, no pedal edema Lungs: Clear to auscultation bilaterally, adequate breath sounds bilaterally, no rhonchi or crackles. Abdomen: Soft, nondistended, nontender, normal bowel sounds. Extremities: No tenderness. Skin: Bilateral stage IV gluteal ulcers Neuro: Paraplegia. Normal speech. Psychiatry: Normal mood, no agitation. Diagnosis Right lower extremity cellulitis Leukocytosis Leukocytosis resolved, lower extremity erythema resolved Patient is on IV antibiotics. Blood cultures: No growth. Anemia of chronic disease Stable Monitor CBC closely UTI Urine culture: Multiple growths-ESBL E. coli and Morganella Continue IV meropenem. Polysubstance abuse Cessation advised. Bilateral gluteal decubitus ulcer stage IV History of paraplegia Patient seen by General Surgery Dr. Moore-local wound care recommended Wound care team consulted. Wound VAC applied. Wound culture: Multiple organisms-ESBL E. coli and Proteus. Antibiotics changed to IV meropenem. [place] as needed for pain. DVT prophylaxis: Lovenox Advanced directive: full code Disposition: Long-term care pending acceptance by facility. Social service team assisting with arrangement.
[2023-11-07] MEDS: ALPRAZOLAM 0.5 MG TABLET PO ONE (20:21)
[2023-11-07] MEDS: JUVEN PACKET PO SCH (20:24)
[2023-11-08 07:16] LABS: Absolute Eosinophils 0.3 K/uL (0-0.5); Absolute Lymphocytes (CBC) 1.3 K/uL (0.7-4.9); Absolute Monocytes 0.5 K/uL (0.1-1.3); Absolute Neutrophil 3.7 K/uL (1.8-8.0); Basophils % 0.5 % (0-1.3); Eosinophils % 4.7 % (0-4.4); Hematocrit 38.8 % (39.6-49.0); Hemoglobin 12.4 g/dL (13.6-17.9); Lymphocytes % 22.4 % (15.3-44.8); MCH 27.2 pg (27.0-35.0); MCV 85.1 fL (80-100); Monocytes % 8.2 % (3.3-12.3); Neutrophils % 64.2 % (41.7-73.7); Platelets 473 thou/uL (152-406); RBC Red Blood Cell Count 4.56 M/uL (4.33-5.43); Red Cell Distribution Width 17.8 % (12.1-15.2)
--- NOTE | 2023-11-08 15:12 | P.PN ---
Subjective Date of Service: 11/08/23 Chief Complaint: Right Lower extremity swelling and redness Patient has no new complain Wound VAC on gluteal wounds with minimal drainage. Physical Examination - Vital Signs Temperature: 97.3 F Blood Pressure: 110/70 Pulse: 67 Respirations: 14 Pulse Ox (%): 97 - Studies Microbiology Data (last 24 hrs): 11/02/23 20:15 Blood - Blood Aerobic Blood Culture - Final No growth in 5 days. 11/02/23 20:15 Blood - Blood Anaerobic Blood Culture - Final No growth in 5 days. Assessment And Plan - Plan Physical examination General: Alert and oriented x3, NAD, Heart: Heart sounds 1 and 2 normal, regular rhythm, normal rate, no pedal edema Lungs: Clear to auscultation bilaterally, adequate breath sounds bilaterally, no rhonchi or crackles. Abdomen: Soft, nondistended, nontender, normal bowel sounds. Extremities: No tenderness. No erythema. Skin: Bilateral stage IV gluteal ulcers Neuro: Paraplegia. Normal speech. Psychiatry: Normal mood, no agitation. Diagnosis Right lower extremity cellulitis Leukocytosis Leukocytosis resolved, lower extremity erythema resolved Patient is on IV antibiotics. Blood cultures: No growth. Anemia of chronic disease Stable Monitor CBC closely UTI Urine culture: Multiple growths-ESBL E. coli and Morganella Continue IV meropenem. Patient to complete at least 7 days of treatment. Polysubstance abuse Cessation advised. Bilateral gluteal decubitus ulcer stage IV History of paraplegia Patient seen by General Surgery Dr. Moore-local wound care recommended Wound care team consulted. Wound VAC applied. Wound culture: Multiple organisms-ESBL E. coli and Proteus. Antibiotics changed to IV meropenem. [place] as needed for pain. DVT prophylaxis: Lovenox Advanced directive: full code Disposition: Long-term care pending acceptance by facility. Social service team assisting with arrangement.
[2023-11-08] MEDS: ALPRAZOLAM 0.5 MG TABLET PO ONE (21:10)
[2023-11-09] MEDS: Meropenem 1000 MG/VIAL IV ONE (00:49)
--- NOTE | 2023-11-09 13:33 | P.PN ---
Subjective Date of Service: 11/09/23 Chief Complaint: Right Lower extremity swelling and redness Patient has no new complain. Wound VAC on gluteal wounds with minimal drainage. No issues overnight. Physical Examination - Vital Signs Temperature: 97.6 F Blood Pressure: 103/53 Pulse: 56 Respirations: 12 Pulse Ox (%): 95 Assessment And Plan - Plan Physical examination General: Alert and oriented x3, NAD, Heart: Heart sounds 1 and 2 normal, regular rhythm, normal rate, no pedal edema Lungs: Clear to auscultation bilaterally, adequate breath sounds bilaterally, no rhonchi or crackles. Abdomen: Soft, nondistended, nontender, normal bowel sounds. Extremities: No tenderness. No erythema. Skin: Bilateral stage IV gluteal ulcers Neuro: Paraplegia. Normal speech. Psychiatry: no agitation. Diagnosis Right lower extremity cellulitis Leukocytosis Leukocytosis resolved, lower extremity erythema resolved Patient is on IV antibiotics. Blood cultures: No growth. Anemia of chronic disease Stable Monitor CBC closely UTI secondary to indwelling suprapubic catheter Urine culture: Multiple growths-ESBL E. coli and Morganella Continue IV meropenem. Patient to complete at least 7 days of treatment. Change suprapubic catheter today Polysubstance abuse Cessation of illicit substance use advised. There is a report patient has a history of schizophrenia. Plan is to obtain medical records from [facility]. Psychiatric consult if patient has a documented history of schizophrenia Bilateral gluteal decubitus ulcer stage IV History of paraplegia Patient seen by General Surgery Dr. Moore-local wound care recommended Wound care team consulted. Wound VAC applied. Wound culture: Multiple organisms-ESBL E. coli and Proteus. Continue IV meropenem. [place] as needed for pain. DVT prophylaxis: Lovenox Advanced directive: full code Disposition: Long-term care pending acceptance by facility. Social service team assisting with arrangement.
[2023-11-09 16:11] LABS: Barbiturates NEGATIVE (NEGATIVE); Benzodiazepines POSITIVE (NEGATIVE); Cocaine NEGATIVE (NEGATIVE); METHAMPHETAM NEGATIVE (NEGATIVE); Methadone NEGATIVE (NEGATIVE); Opiates POSITIVE (NEGATIVE); Phencyclidine NEGATIVE (NEGATIVE); THC Cannibis NEGATIVE (NEGATIVE)
[2023-11-09] MEDS: ALPRAZOLAM 0.5 MG TABLET PO ONE (21:35)
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
[2023-11-10] MEDS: ALPRAZOLAM 0.5 MG TABLET PO PRN (20:38)
[2023-11-11 04:11] LABS: Renal Epithelial <5 /HPF (None Seen); Sqamous Epithelial None Seen /HPF (None Seen); Urine Bacteria <20 /HPF (<20); Urine Bilirubin NEGATIVE (Negative); Urine Blood Trace (Negative); Urine Clarity Turbid (Clear); Urine Color Light-Yellow (Yellow); Urine Culture Reflex Order REFLEXED; Urine Glucose NEGATIVE (Negative); Urine Ketones TRACE (Negative); Urine Micro Reflex YN NO BILL MICROSCOPIC; Urine Mucus Slight /HPF (None Seen); Urine Nitrite NEGATIVE (Negative); Urine Protein NEGATIVE (Negative); Urine Urobilinogen Normal (Normal); Urine WBC >50 /HPF (<5); Urine pH 5.5 (5.0-7.0)
[2023-11-11 06:22] LABS: Absolute Eosinophils 0.2 K/uL (0-0.5); Absolute Lymphocytes (CBC) 1.6 K/uL (0.7-4.9); Absolute Monocytes 0.5 K/uL (0.1-1.3); Absolute Neutrophil 1.8 K/uL (1.8-8.0); Basophils % 0.7 % (0-1.3); Eosinophils % 5.3 % (0-4.4); Hematocrit 37.7 % (39.6-49.0); Hemoglobin 12.1 g/dL (13.6-17.9); Lymphocytes % 38.1 % (15.3-44.8); MCHC 32.1 g/dL (32.0-36.0); MPV 6.9 fL (7.6-11.3); Monocytes % 12.3 % (3.3-12.3); Neutrophils % 43.6 % (41.7-73.7); Nucleated Red Blood Cells % 0.1 % (0-0); Platelets 445 thou/uL (152-406); RBC Red Blood Cell Count 4.48 M/uL (4.33-5.43); Red Cell Distribution Width 17.6 % (12.1-15.2)
[2023-11-11 06:28] LABS: Anion Gap 7.8 mEq/L (5.0-15.0); Magnesium 2.1 mg/dL (1.6-2.4); Potassium 3.8 mEq/L (3.5-5.1)
[2023-11-11 09:05] LABS: Blood Morphology Comment NOT SEEN (NOT SEEN); Platelet Estimate ADEQ; White Blood Cell Scan OK (OK)
[2023-11-11] MEDS: POTASSIUM CL SA 10 MEQ TAB PO ONE (09:39)
--- NOTE | 2023-11-11 10:27 | P.PN ---
Date of Service: 11/11/23 Subjective: Denies any new / worsening problems Stable. Pending NH acceptance afebrile ROS: 10 point ROS as noted above, otherwise negative Physical Exam: GEN: Alert, oriented, NAD CV: Regular rate and rhythm, trace RLE edema Pulm: Nonlabored respirations on room air, clear bilaterally ABD: Soft, nontender, Colostomy bag in place Integumentary: right lower extremity erythema resolved. Wound vac in place MSK: left AKA Neuro: Normal speech, Paraplegia suprapubic cath replaced 11/08 vitals reviewed Problem List: Right lower extremity cellulitis Bilateral gluteal decubitus ulcer stage IV; chronic UTI secondary to indwelling suprapubic catheter Anemia of chronic disease Polysubstance abuse Hx Schizophrenia/Bipolar disorder Constipation; chronic Right lower extremity cellulitis Bilateral gluteal decubitus ulcer stage IV; chronic Leukocytosis resolved, lower extremity erythema resolved Wound cx (11/01): E.coli ESBL and MDR Proteus Mirabilis Dr. Moore, general surgeon is following recommended medical management with local wound care / wound vac for b/l decubitus ulcers, did not appear infected will need to follow up with Dr. Moore in [facility] on discharge for continued wound care. previously on rocephin / vanc (11/01-11/04) Continue merrem and doxycycline (11/04-) ID consulted 11/09 pain control UTI secondary to indwelling suprapubic catheter urine cx (11/01): E. Coli ESBL and MDR Morganella Morganii previously on rocephin / vanc (11/01-11/04) antibiotics switched to merrem (11/04-) following culture results continue merrem (11/04-) for 10 days total suprapubic cath replaced 11/08 ID consulted 11/09 Anemia of chronic disease Stable. Polysubstance abuse ?Hx Schizophrenia/Bipolar disorder Cessation of substances advised. [place] records requested given reported hx of schizophrenia/bipolar disorder. will consult psych if patient has a documented history of schizophrenia Constipation; chronic continue glycolax BID VTE: Lovenox Code: Full Dispo: NH - pending acceptance ss/cm consulted Time Spent Managing Pts Care (In Minutes): 44
--- NOTE | 2023-11-11 17:30 | PN ---
Subjective: The patient lying in bed. Denies any headache, nausea, vomiting, chest pain, abdominal pain, constipation, or diarrhea. Objective: Vital signs: Reviewed. Lungs: Basal crackles. Heart: S1, S2. Regular. Abdomen: Soft, nontender. Bowel sounds present. Extremity: No edema. Wound noted to the coccyx region. Assessment And Plan: Urinary tract infection, urosepsis, leukopenia, anemia of chronic disease, cocc yx stage IV wound being followed by surgical team. We will follow the patient as needed. Continue a ntibiotic and supportive care. NF/MODL Voice ID: [id number] Report ID: [id number]
[2023-11-12 07:42] LABS: Absolute Eosinophils 0.2 K/uL (0-0.5); Absolute Lymphocytes (CBC) 1.3 K/uL (0.7-4.9); Absolute Monocytes 0.7 K/uL (0.1-1.3); Basophils % 0.5 % (0-1.3); Hematocrit 36.6 % (39.6-49.0); Lymphocytes % 25.4 % (15.3-44.8); MCH 27.6 pg (27.0-35.0); MCHC 32.8 g/dL (32.0-36.0); MCV 84.1 fL (80-100); MPV 7.5 fL (7.6-11.3); Neutrophils % 57.1 % (41.7-73.7); Nucleated Red Blood Cells % 0.1 % (0-0); Platelets 391 thou/uL (152-406); RBC Red Blood Cell Count 4.35 M/uL (4.33-5.43); Red Cell Distribution Width 17.4 % (12.1-15.2)
[2023-11-12 07:45] LABS: Magnesium 2.2 mg/dL (1.6-2.4)
[2023-11-12 09:43] LABS: Band Neutrophils 3 % (0-1); Differential Total Cells Count 100; Eosinophils 3 % (0-3); Lymphocytes 27 % (15-42); Monocytes 15 % (0-10); Segmented Neutrophils 51 % (40-80)
[2023-11-12 09:44] LABS: Blood Morphology Comment NOT SEEN (NOT SEEN); Myelocytes 1 % (0-0); Platelet Estimate ADEQ
--- NOTE | 2023-11-12 11:42 | P.PN ---
Date of Service: 11/12/23 Subjective: no acute events overnight stable continues on IV abx wound vac ROS: 10 point ROS as noted above, otherwise negative Physical Exam: GEN: Alert, oriented, NAD CV: Regular rate and rhythm, trace RLE edema Pulm: Nonlabored respirations on room air, clear bilaterally ABD: Soft, nontender, Colostomy bag in place Integumentary: right lower extremity erythema resolved. Wound vac in place MSK: left AKA Neuro: Normal speech, Paraplegia suprapubic cath replaced 11/08 vitals reviewed Problem List: Right lower extremity cellulitis Bilateral gluteal decubitus ulcer stage IV; chronic UTI secondary to indwelling suprapubic catheter Anemia of chronic disease Polysubstance abuse Hx Schizophrenia/Bipolar disorder Constipation; chronic Right lower extremity cellulitis Bilateral gluteal decubitus ulcer stage IV; chronic Leukocytosis resolved, lower extremity erythema resolved Wound cx (11/01): E.coli ESBL and MDR Proteus Mirabilis Dr. Moore, general surgeon is following recommended medical management with local wound care / wound vac for b/l decubitus ulcers, did not appear infected will need to follow up with Dr. Moore in [facility] on discharge for continued wound care. previously on rocephin / vanc (11/01-11/04) s/p 1 week of doxycycline (11/04-11/10) Continue merrem (11/04-11/14) ID consulted - recommending 10 days of merrem pain control UTI secondary to indwelling suprapubic catheter urine cx (11/01): E. Coli ESBL and MDR Morganella Morganii previously on rocephin / vanc (11/01-11/04) antibiotics switched to merrem (11/04-) following culture results continue merrem (11/04-11/14) for 10 days total per ID suprapubic cath replaced 11/08 ID is following Anemia of chronic disease Stable. Polysubstance abuse ?Hx Schizophrenia/Bipolar disorder Cessation of substances advised. [facility] records requested given reported hx of schizophrenia/bipolar disorder. will consult psych if patient has a documented history of schizophrenia Constipation; chronic continue glycolax BID VTE: Lovenox Code: Full Dispo: NH - pending acceptance ss/cm consulted Time Spent Managing Pts Care (In Minutes): 44
--- NOTE | 2023-11-12 14:47 | PN ---
Subjective: Patient lying in bed. No new acute event. Chart reviewed. Objective: Vital Signs: Reviewed. Lungs: Clear to auscultation. Heart: S1, S2. Regular. Abdomen: Soft, nontender. Bowel sounds present. Extremities: No edema. Currently, on meropenem. See MARs for other medications. Urine cultures and wound cultures are growing ESBL E coli, Morganella morganii, and Proteus mirabilis , all sensitive to meropenem. Assessment And Plan: Urinary tract infection. Coccyx stage IV wound with Proteus mirabilis and Esch erichia coli, urinary tract infection secondary to Escherichia coli extended spectrum beta-lactamase and Morganella morganii. Continue meropenem for 7 days. Wound care as per surgical team. We will f ollow the patient as needed. NF/MODL Voice ID: [id number] Report ID: [id number]
--- NOTE | 2023-11-13 10:08 | P.PN ---
Date of Service: 11/13/23 Subjective: stable. Denies any new or worsening problems no acute events overnight social service looking into dispo options afebrile ROS: 10 point ROS as noted above, otherwise negative Physical Exam: GEN: Alert, oriented, NAD CV: Regular rate and rhythm, trace RLE edema Pulm: Nonlabored respirations on room air, clear bilaterally ABD: Soft, nontender, Colostomy bag in place Integumentary: right lower extremity erythema resolved. Wound vac in place MSK: left AKA Neuro: Normal speech, Paraplegia suprapubic cath replaced 11/08 vitals reviewed Problem List: Right lower extremity cellulitis Bilateral gluteal decubitus ulcer stage IV; chronic UTI secondary to indwelling suprapubic catheter Anemia of chronic disease Polysubstance abuse Hx Schizophrenia/Bipolar disorder Constipation; chronic Right lower extremity cellulitis Bilateral gluteal decubitus ulcer stage IV; chronic Leukocytosis resolved, lower extremity erythema resolved Wound cx (11/01): E.coli ESBL and MDR Proteus Mirabilis Dr. Moore, general surgeon is following recommended medical management with local wound care / wound vac for b/l decubitus ulcers, did not appear infected will need to follow up with Dr. Moore in [facility] on discharge for continued wound care. previously on rocephin / vanc (11/01-11/04) s/p 1 week of doxycycline (11/04-11/10) Continue merrem (11/04-11/14) ID consulted - recommending 10 days of merrem pain control UTI secondary to indwelling suprapubic catheter urine cx (11/01): E. Coli ESBL and MDR Morganella Morganii previously on rocephin / vanc (11/01-11/04) antibiotics switched to merrem (11/04-) following culture results continue merrem (11/04-11/14) for 10 days total per ID suprapubic cath replaced 11/08 ID is following Anemia of chronic disease Stable. Polysubstance abuse ?Hx Schizophrenia/Bipolar disorder Cessation of substances advised. [facility] records requested given reported hx of schizophrenia/bipolar disor mai. Constipation; chronic continue glycolax BID VTE: Lovenox Code: Full Dispo: NH - pending acceptance ss/cm looking into different facilities Time Spent Managing Pts Care (In Minutes): 44
--- NOTE | 2023-11-13 21:54 | PN ---
Subjective: The patient is lying in bed. No new acute event. Chart reviewed. Objective: Vital Signs: Temperature 98, pulse 69, respirations 16, blood pressure 119/71. Lungs: Clear to auscultation. Heart: S1, S2. Regular. Abdomen: Soft. Bowel sounds present. Skin: Suprapubic catheter and colostomy bag in place. Laboratory Data: Reviewed. Assessment And Plan: 1.Urinary tract infection secondary to Escherichia coli, extended-spectrum beta-lactamase, and reina beryl. 2.Coccyx wound, stage IV, will be managed by Surgical team. Continue supportive care and wound care . Monitor signs of infection with WBC and fever trends. NF/MODL Voice ID: [id number] Report ID: [id number]
--- NOTE | 2023-11-14 11:16 | P.PN ---
Date of Service: 11/14/23 Subjective: dealing with some heartburn/reflux this morning otherwise no new issues afebrile ROS: 10 point ROS as noted above, otherwise negative Physical Exam: GEN: Alert, oriented, NAD CV: Regular rate and rhythm, trace RLE edema ABD: Soft, nontender, Colostomy bag in place Integumentary: right lower extremity erythema resolved. Wound vac in place MSK: left AKA suprapubic cath replaced 11/08 vitals reviewed Problem List: Right lower extremity cellulitis Bilateral gluteal decubitus ulcer stage IV; chronic UTI secondary to indwelling suprapubic catheter Anemia of chronic disease Polysubstance abuse Hx Schizophrenia/Bipolar disorder Constipation; chronic GERD Right lower extremity cellulitis Bilateral gluteal decubitus ulcer stage IV; chronic (not acutely infected) Leukocytosis resolved, lower extremity erythema resolved Wound cx (11/01): E.coli ESBL and MDR Proteus Mirabilis; although the wounds never appeared infected, suspect contamination Dr. Moore, general surgeon is following recommended medical management with local wound care / wound vac for b/l decubitus ulcers, did not appear infected will need to follow up with Dr. Moore in [facility] on discharge for continued wound care. previously on rocephin / vanc (11/01-11/04) for cellulitis s/p 1 week of doxycycline (11/04-11/10) UTI secondary to indwelling suprapubic catheter urine cx (11/01): E. Coli ESBL and MDR Morganella Morganii previously on rocephin / vanc (11/01-11/04) antibiotics switched to merrem (11/04-) following culture results continue merrem (11/04-11/14) for 10 days total per ID suprapubic cath replaced 11/08 Repeat urine culture (11/10): No growth ID is following Anemia of chronic disease Stable. Polysubstance abuse ?Hx Schizophrenia/Bipolar disorder Cessation of substances advised. [facility] records requested given reported hx of schizophrenia/bipolar disorder. Constipation; chronic continue glycolax BID GERD daily pepcid added 11/13 VTE: Lovenox Code: Full Dispo: NH/placement- pending acceptance; anticipate will here throughout the weekend ss/cm looking into different facilities Time Spent Managing Pts Care (In Minutes): 44
[2023-11-14] MEDS: FAMOTIDINE 20 MG TAB PO SCH (12:21)
[2023-11-15] MEDS: APIXABAN 2.5 MG TABLET PO SCH (09:37)
--- NOTE | 2023-11-15 11:30 | P.PN ---
Date of Service: 11/15/23 Subjective: stable no new / worsening problems last day of antibiotics pending placement ROS: 10 point ROS as noted above, otherwise negative Physical Exam: GEN: Alert, oriented, NAD CV: Regular rate and rhythm ABD: Soft, nontender, Colostomy bag in place Integumentary: no rash. wound vac in place MSK: left AKA suprapubic cath replaced 11/08 vitals reviewed Problem List: Right lower extremity cellulitis, resolved Bilateral gluteal decubitus ulcer stage IV; chronic (not acutely infected) UTI secondary to indwelling suprapubic catheter Anemia of chronic disease Polysubstance abuse nicotine dependence Hx Schizophrenia/Bipolar disorder Constipation; chronic GERD Right lower extremity cellulitis, resolved Bilateral gluteal decubitus ulcer stage IV; chronic (not acutely infected) Leukocytosis resolved, lower extremity erythema resolved Wound cx (11/01): E.coli ESBL and MDR Proteus Mirabilis; although the wounds never appeared infected, suspect contamination Dr. Moore, general surgeon is following local wound care / wound vac for b/l decubitus ulcers, did not appear infected, non-surgical will need to follow up with Dr. Moore in [facility] on dc for continued wound care. previously on rocephin / vanc (11/01-11/04) for cellulitis s/p 1 week of doxycycline (11/04-11/10) UTI secondary to indwelling suprapubic catheter urine cx (11/01): E. Coli ESBL and MDR Morganella Morganii previously on rocephin / vanc (11/01-11/04) s/p 10 days of IV merrem (11/04-11/14) suprapubic cath replaced 11/08 Repeat urine culture (11/10): No growth ID is following Anemia of chronic disease Stable. Polysubstance abuse nicotine dependence Hx Schizophrenia/Bipolar disorder Cessation of substances advised. [facility] records requested given reported hx of schizophrenia/bipolar disorder. offered nicotine patch - pt deferred Constipation; chronic continue glycolax BID GERD daily pepcid added 11/13 VTE: Lovenox Code: Full Dispo: NH/placement- pending acceptance; anticipate will here throughout the weekend ss/cm looking into different facilities Time Spent Managing Pts Care (In Minutes): 44
[2023-11-15] MEDS: NICOTINE 14 MG/PAT TD SCH (12:55)
[2023-11-15] MEDS: HYDROMORPHONE HCL 1 MG/ML INJ IV ONE (23:30)
[2023-11-16 05:59] LABS: Hematocrit 36.2 % (39.6-49.0); Hemoglobin 12.1 g/dL (13.6-17.9); MCH 28.1 pg (27.0-35.0); MCHC 33.4 g/dL (32.0-36.0); MCV 84.1 fL (80-100); MPV 7.3 fL (7.6-11.3); Platelets 371 thou/uL (152-406); Red Cell Distribution Width 18.1 % (12.1-15.2)
[2023-11-16 06:09] LABS: Anion Gap 5.7 mEq/L (5.0-15.0); BUN Blood Urea Nitrogen 13 mg/dL (7-18); Bicarbonate 26 mEq/L (21-32); Glucose Level 98 mg/dL (74-106); Magnesium 2.2 mg/dL (1.6-2.4); Potassium 3.7 mEq/L (3.5-5.1); Sodium Level 134 mEq/L (136-145)
[2023-11-16 06:10] LABS: Glomerular Filtration Rate 165 ml/min (=/>90)
[2023-11-16] MEDS: POTASSIUM 25 MEQ EFFERV TAB PO ONE (11:51)
[2023-11-16] MEDS: ALPRAZOLAM 0.5 MG TABLET PO PRN (11:58)
--- NOTE | 2023-11-16 12:00 | P.PN ---
Date of Service: 11/16/23 Subjective: seems more agitated/anxious today, did get 1 dose of dilaudid last night, that may be affecting him frustrated yesterday evening; wanting to go outside otherwise doing okay no new / worsening problems afebrile ROS: 10 point ROS as noted above, otherwise negative Physical Exam: GEN: Alert, oriented, NAD CV: Regular rate and rhythm ABD: Soft, nontender, Colostomy bag in place Integumentary: no rash. wound vac in place MSK: left AKA suprapubic cath replaced 11/08 vitals reviewed Problem List: Right lower extremity cellulitis, resolved Bilateral gluteal decubitus ulcer stage IV; chronic (not acutely infected) UTI secondary to indwelling suprapubic catheter Anemia of chronic disease Polysubstance abuse nicotine dependence Hx Schizophrenia/Bipolar disorder Constipation; chronic GERD Right lower extremity cellulitis, resolved Bilateral gluteal decubitus ulcer stage IV; chronic (not acutely infected) Leukocytosis resolved, lower extremity erythema resolved Wound cx (11/01): E.coli ESBL and MDR Proteus Mirabilis; although the wounds never appeared infected, suspect contamination Dr. Moore, general surgeon is following local wound care / wound vac for b/l decubitus ulcers, did not appear infected, non-surgical will need to follow up with Dr. Moore in [facility] on dc for continued wound care. previously on rocephin / vanc (11/01-11/04) for cellulitis s/p 1 week of doxycycline (11/04-11/10) UTI secondary to indwelling suprapubic catheter urine cx (11/01): E. Coli ESBL and MDR Morganella Morganii rocephin / vanc (11/01-11/04) s/p 10 days of IV merrem (11/04-11/14) suprapubic cath replaced 11/08 Repeat urine culture (11/10): No growth ID is following Anemia of chronic disease Stable. Polysubstance abuse nicotine dependence Hx Schizophrenia/Bipolar disorder Cessation of substances advised. [facility] records requested given reported hx of schizophrenia/bipolar disorder. offered nicotine patch - pt deferred Constipation; chronic continue glycolax BID GERD daily pepcid added 11/13 VTE: Lovenox Code: Full Dispo: NH/placement- pending acceptance ss/cm looking into different facilities Time Spent Managing Pts Care (In Minutes): 44
[2023-11-16] MEDS: COLLAGENASE 30 GM OINTMENT TOP SCH (16:37)
[2023-11-17] MEDS: POTASSIUM CL SA 10 MEQ TAB PO ONE (08:59)
[2023-11-17] MEDS ORDERED: COLLAGENASE 30 GM OINTMENT TOP SCH (09:00)
--- NOTE | 2023-11-17 15:29 | P.PN ---
Subjective Date of Service: 11/17/23 Chief Complaint: Right Lower extremity swelling and redness Patient has no new complain. No issues overnight. Physical Examination - Vital Signs Temperature: 98 F Blood Pressure: 135/73 Pulse: 79 Respirations: 16 Pulse Ox (%): 99 Assessment And Plan - Plan Physical examination General: Alert and oriented x3, NAD, Heart: Heart sounds 1 and 2 normal, regular rhythm, normal rate, no pedal edema Lungs: Clear to auscultation bilaterally, adequate breath sounds bilaterally, no rhonchi or crackles. Abdomen: Soft, nondistended, nontender, normal bowel sounds. Extremities: No tenderness. No erythema. Skin: Bilateral stage IV gluteal ulcers Neuro: Paraplegia. Normal speech. Psychiatry: no agitation. Diagnosis Right lower extremity cellulitis Leukocytosis Leukocytosis resolved, lower extremity erythema resolved Patient completed antibiotics. Blood cultures: No growth. Anemia of chronic disease Stable Monitor CBC closely UTI secondary to indwelling suprapubic catheter Urine culture: Multiple growths-ESBL E. coli and Morganella Patient completed IV meropenem. Suprapubic catheter change during this hospital stay Polysubstance abuse Cessation of illicit substance use advised. There is a report patient has a history of schizophrenia. Bilateral gluteal decubitus ulcer stage IV History of paraplegia Patient seen by General Surgery Dr. Moore-local wound care recommended Wound VAC in place Wound culture: Multiple organisms-ESBL E. coli and Proteus. Patient completed IV meropenem Analgesics as needed for pain. DVT prophylaxis: Lovenox Advanced directive: full code Disposition: Long-term care pending acceptance by facility. Social service team assisting with arrangement.
--- NOTE | 2023-11-17 20:30 | PN ---
Subjective: Patient is lying in bed, not in any acute cardiopulmonary distress. Objective: Vital Signs: Temperature 98, pulse 79, respirations 16, blood pressure 135/73. Lungs: Basal crackles. Heart: S1, S2. Regular. Abdomen: Soft, nontender. Bowel sounds present. Extremity: No edema. Wound noted. Laboratory Data: Reviewed. Assessment And Plan: Coccyx, stage IV wound. Urinary tract infection, improving. The patient curre ntly on meropenem. See MARs for other medications. We will follow the patient as needed. NF/MODL Voice ID: [id number] Report ID: [id number]
--- NOTE | 2023-11-18 15:41 | P.PN ---
Subjective Date of Service: 11/18/23 Chief Complaint: Right Lower extremity swelling and redness Patient has no new complain. Patient has been stepping outside. He denied he went to smoke outside to me. Physical Examination - Vital Signs Temperature: 97.4 F Blood Pressure: 131/77 Pulse: 91 Respirations: 18 Pulse Ox (%): 97 Assessment And Plan - Plan Physical examination General: Alert and oriented x3, NAD, Heart: Heart sounds 1 and 2 normal, regular rhythm, normal rate, no pedal edema Lungs: Clear to auscultation bilaterally, adequate breath sounds bilaterally, no rhonchi or crackles. Abdomen: Soft, nondistended, nontender, normal bowel sounds. Extremities: No tenderness. No erythema. Skin: Bilateral stage IV gluteal ulcers-wounds look clean. Neuro: Paraplegia. Normal speech. Psychiatry: no agitation. Diagnosis Right lower extremity cellulitis Leukocytosis Leukocytosis resolved, lower extremity erythema resolved Patient completed antibiotics. Blood cultures: No growth. Anemia of chronic disease Stable Monitor CBC closely UTI secondary to indwelling suprapubic catheter Urine culture: Multiple growths-ESBL E. coli and Morganella Patient completed IV meropenem. Suprapubic catheter change during this hospital stay Polysubstance abuse Cessation of illicit substance use advised. There is a report patient has a history of schizophrenia. Bilateral gluteal decubitus ulcer stage IV History of paraplegia Patient seen by General Surgery Dr. Moore-local wound care recommended Wound VAC removed. According to nuusing report, a proper wound VAC seal could not be achieved. Wound culture: Multiple organisms-ESBL E. coli and Proteus. Patient completed IV meropenem Analgesics as needed for pain. Wet-to-dry dressing wound care recommended by surgery for now. DVT prophylaxis: Lovenox Advanced directive: full code Disposition: Long-term care pending acceptance by facility. Social service team assisting with arrangement.
--- NOTE | 2023-11-18 21:44 | PN ---
Subjective: The patient is doing well. No other complaints. Objective: Vital signs: Reviewed. Lungs: Basal crackles. Heart: S1, S2. Regular. Abdomen: Soft, nontender. Bowel sounds present. Extremities: No edema. Laboratory Data: Reviewed. Assessment And Plan: Cellulitis of right lower extremity, improving. Urinary tract infection, impro ving. Continue supportive care and wound care. Coccyx stage IV wound. We will follow the patient a s needed. NF/MODL Voice ID: [id number] Report ID: [id number]
[2023-11-19] MEDS: MINERAL OIL 30 ML UCUP PO ONE (10:00)
--- NOTE | 2023-11-19 16:27 | P.PN ---
Subjective Date of Service: 11/19/23 Chief Complaint: Right Lower extremity swelling and redness Patient has no new complain. Patient has been stepping outside. Physical Examination - Vital Signs Temperature: 97.6 F Blood Pressure: 111/56 Pulse: 91 Respirations: 20 Pulse Ox (%): 99 Assessment And Plan - Plan Physical examination General: Alert and oriented x3, NAD, Heart: Heart sounds 1 and 2 normal, regular rhythm, normal rate, no pedal edema Lungs: Clear to auscultation bilaterally, adequate breath sounds bilaterally, no rhonchi or crackles. Abdomen: Soft, nondistended, nontender, normal bowel sounds. Extremities: No tenderness. No erythema. Skin: Bilateral stage IV gluteal ulcers-wounds look clean. Neuro: Paraplegia. Normal speech. Psychiatry: no agitation. Diagnosis Right lower extremity cellulitis Leukocytosis Leukocytosis resolved, lower extremity erythema resolved Patient completed antibiotics. Blood cultures: No growth. Anemia of chronic disease Stable UTI secondary to indwelling suprapubic catheter Urine culture: Multiple growths-ESBL E. coli and Morganella Patient completed IV meropenem. Suprapubic catheter change during this hospital stay Polysubstance abuse Cessation of illicit substance use advised. There is a report patient has a history of schizophrenia. History of schizophrenia/history of auditory hallucination I have reached out to psychiatry Dr. Rodriguez for guidance regarding management. Noted patient was not on any antipsychotics during his stay in the [facility]. Patient's polysubstance abuse probably related to untreated psychosis. Bilateral gluteal decubitus ulcer stage IV History of paraplegia Patient seen by General Surgery Dr. Moore-local wound care recommended Wound VAC removed. According to nuusing report, a proper wound VAC seal could not be achieved. Wound culture: Multiple organisms-ESBL E. coli and Proteus. Patient completed IV meropenem Analgesics as needed for pain. Wet-to-dry dressing wound care recommended by surgery for now. DVT prophylaxis: Lovenox Advanced directive: full code Disposition: Long-term care pending acceptance by facility. Social service team assisting with arrangement.
[2023-11-20 09:28] LABS: Absolute Eosinophils 0.1 K/uL (0-0.5); Absolute Lymphocytes (CBC) 1.3 K/uL (0.7-4.9); Absolute Monocytes 0.6 K/uL (0.1-1.3); Absolute Neutrophil 5.1 K/uL (1.8-8.0); Basophils % 0.3 % (0-1.3); Eosinophils % 1.6 % (0-4.4); Hematocrit 35.1 % (39.6-49.0); Hemoglobin 11.6 g/dL (13.6-17.9); Lymphocytes % 18.3 % (15.3-44.8); MCH 27.4 pg (27.0-35.0); MPV 7.2 fL (7.6-11.3); Monocytes % 8.1 % (3.3-12.3); Neutrophils % 71.7 % (41.7-73.7); Nucleated Red Blood Cells % 0.1 % (0-0); Platelets 371 thou/uL (152-406); RBC Red Blood Cell Count 4.23 M/uL (4.33-5.43); Red Cell Distribution Width 17.9 % (12.1-15.2)
[2023-11-20 09:37] LABS: Anion Gap 10.7 mEq/L (5.0-15.0); Potassium 3.7 mEq/L (3.5-5.1)
--- NOTE | 2023-11-20 12:28 | P.PN ---
Subjective Date of Service: 11/20/23 Chief Complaint: Right Lower extremity swelling and redness Patient has been hallucinating both visual and auditory all night. He also exhibited inappropriate behavior and defiance. Physical Examination - Vital Signs Temperature: 97.0 F Blood Pressure: 120/68 Pulse: 89 Respirations: 16 Pulse Ox (%): 98 Assessment And Plan - Plan Physical examination General: Alert and oriented x3, NAD, Heart: Heart sounds 1 and 2 normal, regular rhythm, normal rate, no pedal edema Lungs: Clear to auscultation bilaterally, adequate breath sounds bilaterally, no rhonchi or crackles. Abdomen: Soft, nondistended, nontender, normal bowel sounds. Extremities: No tenderness. No erythema. Skin: Bilateral stage IV gluteal ulcers-wounds look clean. Neuro: Paraplegia. Normal speech. Psychiatry: Incongruent speech, hallucinations Diagnosis Right lower extremity cellulitis Leukocytosis Leukocytosis resolved, lower extremity erythema resolved Patient completed antibiotics. Blood cultures: No growth. Anemia of chronic disease Stable UTI secondary to indwelling suprapubic catheter Urine culture: Multiple growths-ESBL E. coli and Morganella Patient completed IV meropenem. Suprapubic catheter change during this hospital stay Polysubstance abuse Cessation of illicit substance use advised. History of schizophrenia/history of auditory hallucination Noted patient was not on any antipsychotics during his stay in the [facility]. Patient exhibiting full blown psychosis with both auditory and visual hallucinations, defiance and inappropriate behavior. Patient's polysubstance abuse probably related to untreated psychosis. 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 Case discussed with psychiatry Dr. Alber Dela Cruz. Dr. Dela Cruz recommend inpatient psychiatry admission given patient's psychosis symptoms poses a harm to himself. Inpatient psychiatry admission needed to control patient's symptoms. Meanwhile Dr. Dela Cruz recommend Haldol. Patient reports allergy to Haldol and risperidone. Will therefore initiate oral Seroquel. Bilateral gluteal decubitus ulcer stage IV History of paraplegia Patient seen by General Surgery Dr. Moore-local wound care recommended Wound VAC removed. According to nuusing report, a proper wound VAC seal could not be achieved. Wound culture: Multiple organisms-ESBL E. coli and Proteus. Patient completed IV meropenem Analgesics as needed for pain. Wet-to-dry dressing wound care recommended by surgery for now. DVT prophylaxis: Lovenox Advanced directive: full code Disposition: Inpatient psychiatry. Social service team assisting with arrangement.
[2023-11-20] MEDS: QUETIAPINE 25 MG TAB PO SCH (13:28)
[2023-11-20 15:30] VITALS: BMI 27.3
[2023-11-20] MEDS: ACETAMINOPHEN 325 MG TABLET PO PRN (20:02)
--- NOTE | 2023-11-21 13:27 | P.PN ---
Subjective Date of Service: 11/21/23 Chief Complaint: Right Lower extremity swelling and redness Patient continued to experience visual and auditory hallucinations. He has been exhibiting paranoid, defiance behavior and aggressive behavior. Physical Examination - Vital Signs Temperature: 97.2 F Blood Pressure: 127/74 Pulse: 91 Respirations: 16 Pulse Ox (%): 94 Assessment And Plan - Plan Physical examination General: Alert and oriented x3, NAD, Heart: Heart sounds 1 and 2 normal, regular rhythm, normal rate, no pedal edema Lungs: Clear to auscultation bilaterally, adequate breath sounds bilaterally, no rhonchi or crackles. Abdomen: Soft, nondistended, nontender, normal bowel sounds. Extremities: No tenderness. No erythema. Skin: Bilateral stage IV gluteal ulcers-wounds look clean. Neuro: Paraplegia. Normal speech. Psychiatry: Incongruent speech, hallucinations, paranoia. Diagnosis Right lower extremity cellulitis Leukocytosis Leukocytosis resolved, lower extremity erythema resolved Patient completed antibiotics. Blood cultures: No growth. Anemia of chronic disease Stable UTI secondary to indwelling suprapubic catheter Urine culture: Multiple growths-ESBL E. coli and Morganella Patient completed IV meropenem. Suprapubic catheter change during this hospital stay Polysubstance abuse Cessation of illicit substance use advised. History of schizophrenia/history of auditory hallucination Noted patient was not on any antipsychotics during his stay in the [facility]. Patient exhibiting full blown psychosis with both auditory and visual hallucinations, paranoia, defiance and aggressive behavior. Patient's polysubstance abuse probably related to untreated psychosis. He has been aggressively requesting Xanax, and IV opioids which I suspect helps him cope with his psychotic symptoms. Case discussed with psychiatry Dr. Alber Dela Cruz. Dr. Dela Cruz recommend inpatient psychiatry admission given patient's psychosis symptoms poses a harm to himself. Inpatient psychiatry admission needed to control patient's symptoms. Meanwhile Dr. Dela Cruz recommend Haldol. Patient reports allergy to Haldol and risperidone. Symptoms remain uncontrolled. Titrate Seroquel. Bilateral gluteal decubitus ulcer stage IV History of paraplegia Patient seen by General Surgery Dr. Moore-local wound care recommended Wound VAC removed. According to nursing report, a proper wound VAC seal could not be achieved. Wound culture: Multiple organisms-ESBL E. coli and Proteus. Wounds look clean. Patient completed IV meropenem Analgesics as needed for pain. Wet-to-dry dressing wound care recommended by surgery for now. DVT prophylaxis: Lovenox Advanced directive: full code Disposition: Inpatient psychiatry. Social service team assisting with arrangement.
[2023-11-21] MEDS: QUETIAPINE 25 MG TAB PO SCH (20:19)
[2023-11-21] MEDS: LORATADINE 10 MG TAB PO ONE (20:19)
[2023-11-22] MEDS: ALPRAZOLAM 0.5 MG TABLET PO ONE (04:54)
--- NOTE | 2023-11-22 14:29 | P.PN ---
Subjective Date of Service: 11/22/23 Chief Complaint: Right Lower extremity swelling and redness Patient reports poor sleep last night. e. Physical Examination - Vital Signs Temperature: 97.1 F Blood Pressure: 110/56 Pulse: 85 Respirations: 20 Pulse Ox (%): 96 Assessment And Plan - Plan Physical examination General: Alert and oriented x3, NAD, Heart: Heart sounds 1 and 2 normal, regular rhythm, normal rate, no pedal edema Lungs: Clear to auscultation bilaterally, adequate breath sounds bilaterally, no rhonchi or crackles. Abdomen: Soft, nondistended, nontender, normal bowel sounds. Extremities: No tenderness. No erythema. Skin: Bilateral stage IV gluteal ulcers-wounds look clean. Neuro: Paraplegia. Normal speech. Psychiatry: Incongruent speech, hallucinations Diagnosis Right lower extremity cellulitis Leukocytosis Leukocytosis resolved, lower extremity erythema resolved Patient completed antibiotics. Blood cultures: No growth. Anemia of chronic disease Stable UTI secondary to indwelling suprapubic catheter Urine culture: Multiple growths-ESBL E. coli and Morganella Patient completed IV meropenem. Suprapubic catheter change during this hospital stay Polysubstance abuse Cessation of illicit substance use advised. History of schizophrenia/history of auditory hallucination Noted patient was not on any antipsychotics during his stay in the care home. Patient exhibiting full blown psychosis with both auditory and visual hallucinations, defiance and inappropriate behavior. Patient's polysubstance abuse probably related to untreated psychosis. He has been aggressively requesting Xanax, and IV opioids which I suspect helps him cope with his psychotic symptoms. Case discussed with psychiatry Dr. Alber Dela Cruz. Dr. Dela Cruz recommend inpatient psychiatry admission given patient's psychosis symptoms poses a harm to himself. Inpatient psychiatry admission needed to control patient's symptoms. Meanwhile Dr. Dela Cruz recommend Haldol. Patient reports allergy to Haldol and risperidone and now states he does not like Seroquel. Psychiatry to follow for antipsychotics. Bilateral gluteal decubitus ulcer stage IV History of paraplegia Patient seen by General Surgery Dr. Moore-local wound care recommended Wound VAC removed. According to nuusing report, a proper wound VAC seal could not be achieved. Wound culture: Multiple organisms-ESBL E. coli and Proteus. Patient completed IV meropenem Analgesics as needed for pain. Wet-to-dry dressing wound care recommended by surgery for now. DVT prophylaxis: Lovenox Advanced directive: full code Disposition: Inpatient psychiatry. Social service team assisting with arrangement.
[2023-11-22] MEDS: ZOLPIDEM TARTRATE 10 MG TABLET PO PRN (20:30)
[2023-11-23] MEDS: TRAZODONE 50 MG TABLET PO ONE (00:47)
[2023-11-23] MEDS: ZOLPIDEM TARTRATE 5 MG TABLET PO ONE (01:21)
[2023-11-23] MEDS: ALPRAZOLAM 0.5 MG TABLET PO ONE (09:58)
--- NOTE | 2023-11-23 12:00 | EKG ---
Test Date: 2023-11-20 Test Time: 15:27:24 Career Specialist: NITHIN MEASUREMENT RESULTS: Intervals: Rate: 93 AK: 152 QRSD: 82 QT: 330 QTc: 410 [place]: P: 14 AK: 152 QRS: 49 T: 11 INTERPRETIVE STATEMENTS: Normal sinus rhythm Normal ECG Compared to ECG 11/20/2023 15:24:08 No significant changes Electronically Signed On 11-23-23 11:54:57 CDT by Luis Daniel Bryant
--- NOTE | 2023-11-23 12:00 | EKG ---
Test Date: 2023-11-20 Test Time: 15:24:08 Car Wash Attendant: BILL MEASUREMENT RESULTS: Intervals: Rate: 93 PA: 150 QRSD: 80 QT: 328 QTc: 407 [place]: P: 15 PA: 150 QRS: 48 T: 14 INTERPRETIVE STATEMENTS: Normal sinus rhythm Normal ECG Compared to ECG 11/02/2023 20:02:07 Sinus tachycardia no longer present Electronically Signed On 11-23-23 11:54:59 CDT by Luis Daniel Bryant
--- NOTE | 2023-11-23 14:35 | P.PN ---
Subjective Date of Service: 11/23/23 Chief Complaint: Right Lower extremity swelling and redness Patient experiencing intermittent auditory and visual hallucinations. He has been demanding Xanax for anxiety. Physical Examination - Vital Signs Temperature: 98.4 F Blood Pressure: 115/60 Pulse: 77 Respirations: 16 Pulse Ox (%): 92 Assessment And Plan - Plan Physical examination General: Alert and oriented x3, NAD, Heart: Heart sounds 1 and 2 normal, regular rhythm, normal rate, no pedal edema Lungs: Clear to auscultation bilaterally, adequate breath sounds bilaterally, no rhonchi or crackles. Abdomen: Soft, nondistended, nontender, normal bowel sounds. Extremities: No tenderness. No erythema. Skin: Bilateral stage IV gluteal ulcers-wounds look clean. Neuro: Paraplegia. Normal speech. Psychiatry: Incongruent speech, hallucinations Diagnosis Right lower extremity cellulitis Leukocytosis Leukocytosis resolved, lower extremity erythema resolved Patient completed antibiotics. Blood cultures: No growth. Anemia of chronic disease Stable UTI secondary to indwelling suprapubic catheter Urine culture: Multiple growths-ESBL E. coli and Morganella Patient completed IV meropenem. Suprapubic catheter change during this hospital stay Polysubstance abuse Cessation of illicit substance use advised. History of schizophrenia/history of auditory hallucination Noted patient was not on any antipsychotics during his stay in the [facility]. Patient exhibiting full blown psychosis with both auditory and visual hallucinations, defiance and inappropriate behavior. Patient's polysubstance abuse probably related to untreated psychosis. He has been aggressively requesting Xanax, and IV opioids which I suspect helps him cope with his psychotic symptoms. Case discussed with psychiatry Dr. Alber Dela Cruz. Dr. Dela Cruz recommend inpatient psychiatry admission given patient's psychosis symptoms poses a harm to himself. Inpatient psychiatry admission needed to control patient's symptoms. Meanwhile Dr. Dela Cruz recommend Haldol. Patient reports allergy to Haldol and risperidone and now states he does not like Seroquel. Psychiatry to follow for antipsychotics. Dr. Dela Cruz consulted. Bilateral gluteal decubitus ulcer stage IV History of paraplegia Patient seen by General Surgery Dr. Moore-local wound care recommended Wound VAC removed. According to nuusing report, a proper wound VAC seal could not be achieved. Wound culture: Multiple organisms-ESBL E. coli and Proteus. Patient completed IV meropenem Analgesics as needed for pain. Wet-to-dry dressing wound care recommended by surgery for now. DVT prophylaxis: Lovenox Advanced directive: full code Disposition: Inpatient psychiatry. Social service team assisting with arrangement.
[2023-11-23] MEDS: DICYCLOMINE HCL 10 MG CAP PO ONE (23:48)
--- NOTE | 2023-11-24 07:27 | P.PN ---
Date of Service: 11/24/23 Subjective: no acute events overnight. stable denies hallucinations patient states he has been in hospitals for several weeks - 2 months waiting on psych facilities and has been denied in past due to even milder ulcers/wounds denies he has any HI/SI thoughts acknowledges he thinks he would benefit from seeing psychiatrist and therapist to help with his chronic issues - PTSD, substance use states would have liked to do it inpatient, but understands he will likely get denied again and will look into outpatient options ROS: 10 point ROS as noted above, otherwise negative Physical Exam: GEN: Alert, oriented, NAD CV: Regular rate and rhythm ABD: Soft, nontender, Colostomy bag in place Integumentary: Bilateral gluteal ulcers clean. Dressing in place MSK: left AKA suprapubic cath replaced 11/08 vitals reviewed Problem List: Right lower extremity cellulitis, resolved Bilateral gluteal decubitus ulcer stage IV; chronic (not acutely infected) UTI secondary to indwelling suprapubic catheter History of schizophrenia/history of auditory hallucination Polysubstance abuse nicotine dependence Anemia of chronic disease Constipation; chronic GERD Right lower extremity cellulitis, resolved Bilateral gluteal decubitus ulcer stage IV; chronic (not acutely infected) Leukocytosis resolved, lower extremity erythema resolved Wound cx (11/01): E.coli ESBL and MDR Proteus Mirabilis; although the wounds never appeared infected, suspect contamination previously on rocephin / vanc (11/01-11/04) for cellulitis s/p 1 week of doxycycline (11/04-11/10) s/p 10 days of IV merem (11/04-11/14) Wound VAC removed. According to nuusing report, a proper wound VAC seal could not be achieved. Dr. Moore, general surgeon is following continue local wound care with Wet-to-dry dressing UTI secondary to indwelling suprapubic catheter urine cx (11/01): E. Coli ESBL and MDR Morganella Morganii s/p 10 days of IV merrem (11/04-11/14) suprapubic cath replaced 11/08 Repeat urine culture (11/10): No growth ID is following History of schizophrenia/history of auditory hallucination Polysubstance abuse nicotine dependence Cessation of substances advised. [facility] records requested given reported hx of schizophrenia/bipolar disorder. Noted patient was not on any antipsychotics during his stay in the assisted. Patient exhibiting full blown psychosis with both auditory and visual hallucinations, defiance and inappropriate behavior. Patient's polysubstance abuse probably related to untreated psychosis. He has been aggressively requesting Xanax, and IV opioids which I suspect helps him cope with his psychotic symptoms. Patient reports allergy to Haldol and risperidone and now states he does not like Seroquel - makes him feel weird/agitated. Psychiatry to follow for antipsychotics. Dr. Dela Cruz consulted. Anemia of chronic disease Stable. Constipation; chronic continue glycolax BID GERD continue daily pepcid VTE: Lovenox Code: Full Dispo: likely home/ hotel vs personal group home ss/cm looking into different facilities Time Spent Managing Pts Care (In Minutes): 44
--- NOTE | 2023-11-24 13:15 | PN ---
Subjective: The patient is sitting in wheelchair, not in any acute distress. Objective: Vital Signs: Reviewed. Lungs: Clear to auscultation. Heart: S1, S2. Regular. Abdomen: Soft, nontender. Bowel sounds present. Extremities: Trace edema. Sacrococcyx wound noted. Laboratory Data: Reviewed. Assessment And Plan: Coccyx stage IV wound. Continue wound care as per surgical team. Anemia of ch ronic disease, cellulitis of leg, stable. Continue supportive care and monitor signs of infection wi th WBC and fever trends. NF/MODL Voice ID: [id number] Report ID: [id number]
[2023-11-24] MEDS: ALPRAZOLAM 0.5 MG TABLET PO SCH (15:01)
[2023-11-24 22:41] VITALS: O2SAT 96
[2023-11-25] MEDS: ALPRAZOLAM 0.5 MG TABLET PO PRN (10:11)
[2023-11-25 18:32] VITALS: BP 141/67; TEMP 98.2
--- NOTE | 2023-11-26 06:27 | P.DS ---
Admission Date: 11/02/23 Discharge Date: 11/25/23 Disposition: [place] HOME/HOME HEALTH CARE Discharge Condition: GOOD Reason for Admission: Right Lower extremity swelling and redness Hospital Course: Problem List: Right lower extremity cellulitis, resolved Bilateral gluteal decubitus ulcer stage IV; chronic (not acutely infected) UTI secondary to indwelling suprapubic catheter History of schizophrenia/history of auditory hallucination Polysubstance abuse nicotine dependence Anemia of chronic disease Constipation; chronic GERD Physician discharge instructions: Patient presented with worsening right lower extremity pain/swelling and nonhealing gluteal wounds, secondary to right lower extremity cellulitis complicated by bilateral stage IV decubitus ulcers. He was evaluated by Dr. Moore, general surgeon, who recommended medical management with antibiotics, pain control, wound care/vac. No evidence to warrant surgical intervention at this time. Patient was initially given empiric rocephin / vancomycin and had some improvement of his symptoms. Urine culture grew E. coli ESBL and multi-drug resistant Morganella Morannii. Wound cultures grew E. coli ESBL and multi-drug resistant Proteus Mirabilis, however suspect contamination given the wounds never appeared acutely infected. Antibiotics were switched to merrem and doxycycline following culture results an d patient continued to improve. Patient completed 1 week of doxycycline (11/04- 11/10) to cover cellulitis and 10 days of IV merrem (11/04-11/14) to treat UTI. Suspect UTI secondary to chronic indwelling suprapubic catheter. Patient's suprapubic catheter was replaced on 11/08. Patient was feeling better, leukocytosis resolved, afebrile > 48 hours, lower extremity pain resolved, and was deemed stable for discharge. Hospitalization prolonged secondary to disposition/placement. Case management were consulted for assistance but had some difficulty locating a facility that would accept patient given his extensive comorbidities, chronic wounds, prior history. Dr. Dela Cruz (psych) was consulted given his history of schizophrenia/bipolar disorder. Patient did reportedly have some auditory hallucinations, which he explained to me as a coping mechanism / the way he words things, he can see how someone might think he's hearing voices and denied having auditory hallucinations. Patient requested inpatient psych evaluation / transfer voluntarily given his history of PTSD, depression, paranoia. He was evaluated by [facility] who recommended inpatient psych placement. Multiple psych facilities were contacted and over several days - 1+week we received denials due to wound care needed. During this time, patient had overall improvement of his mood. No auditory hallucinations, and he felt he could continue current management at home and requested discharge. Home health was able to be set up, and he stated his would be doing wound care. He currently plans to move into a motel for a few days until he moves into an apartment. He exhibited no signs/symptoms that would demonstrate self-harming behavior and had decision making capacity. Patient clinically improved and deemed stable for discharge. refilled prescriptions for short course for xanax, norco. Recommend following up with PCP and Psychology in next 1-2 weeks for further management and refills of medications. Dr. Dela Cruz evaluated patient on 11/24, and recommended starting sertraline and zyprexa, continue ambien. Discussed with patient on avoidance of polypharmacy. He has been taking xanax, norco, ambien during hospitalization without issue. Patient plans on following up with his prior PCP, Dr. Meyers, who he has not seen in a long time. I reached out to Dr. Meyers who stated will have his office look into schedulin g follow up appointment and will follow home health. Medications: short courses of [place], xanax, ambien prescribed. Patient was taking these at [facility] when admitted here. Pepcid sertraline zyprexa Will need to follow up with PCP/Psych/Pain doc for further refills continues other home medications not listed as previously prescribed Follow up: PCP 3-[address] [facility]1 week Psychology 1-2 weeks Please call to schedule / confirm appointments Physical Exam: GEN: Alert, oriented, NAD CV: Regular rate and rhythm ABD: Soft, nontender, Colostomy bag in place Integumentary: Bilateral gluteal ulcers clean. Dressing in place MSK: left AKA Vital Signs/Physical Exam: Temp Pulse Resp BP Pulse Ox 98.2 F 72 16 141/67 H 99 11/25/23 16:00 11/25/23 16:00 11/25/23 16:00 11/25/23 16:00 11/25/23 16:00 Laboratory Data at Discharge: WBC 7.10 thou/uL (4.3-10.9) 11/20/23 09:15 Hgb 11.6 g/dL (13.6-17.9) L 11/20/23 09:15 Hct 35.1 % (39.6-49.0) L 11/20/23 09:15 Plt Count 371 thou/uL (152-406) 11/20/23 09:15 PT 14.2 SECONDS (9.4-12.5) H 11/02/23 20:00 INR 1.28 11/02/23 20:00 APTT 33.7 SECONDS (24.3-36.9) 11/02/23 20:00 Sodium 138 mEq/L (136-145) 11/20/23 09:15 Potassium 3.7 mEq/L (3.5-5.1) 11/20/23 09:15 BUN 11 mg/dL (7-18) 11/20/23 09:15 Creatinine 0.46 mg/dL (0.70-1.30) L 11/20/23 09:15 Glucose 128 mg/dL (74-106) H 11/20/23 09:15 Phosphorus 3.0 mg/dL (2.5-4.9) 11/04/23 05:24 Magnesium 2.2 mg/dL (1.6-2.4) 11/16/23 05:36 Total Bilirubin 1.0 mg/dL (0.2-1.0) 11/03/23 06:56 AST 21 U/L (15-37) 11/03/23 06:56 ALT 24 U/L (16-61) 11/03/23 06:56 Alkaline Phosphatase 99 U/L (45-117) 11/03/23 06:56 Home Medications: Famotidine [Pepcid] 40 mg PO DAILY 30 Days #30 tab 11/25/23 OLANZapine [Olanzapine] 10 mg PO DAILY 30 Days #30 tab 11/25/23 Polyethylene Glycol 3350 [Powderlax] 17 gm PO BID 30 Days #60 packet 11/25/23 RX: ALPRAZolam [Xanax*] 0.5 mg PO DAILY PRN #10 tab 11/25/23 RX: Ascorbic Acid [Vitamin C*] 500 mg PO DAILY 30 Days #30 tab 11/25/23 RX: Collagenase [Santyl Ointment*] 1 appl TOP DAILY 30 Days #2 tube 11/25/23 RX: Hydrocodone 10/APAP 325 [[place] 10/325*] 1 tab PO Q6H PRN #20 tab 11/25/23 RX: Sertraline [Zoloft*] 0.5 tab PO DAILY 60 Days #30 tab 11/25/23 RX: Zinc Sulfate [Zinc Sulfate*] 220 mg PO DAILY 30 Days #30 cap 11/25/23 Zolpidem Tartrate [Ambien] 5 mg PO BEDTIME PRN #5 tab 11/25/23 New Medications: Zolpidem Tartrate [Ambien] 5 mg PO BEDTIME PRN #5 tab PRN Reason: Insomnia RX: Hydrocodone 10/APAP 325 [[place] 10/325*] 1 tab PO Q6H PRN #20 tab PRN Reason: Pain Scale 5-7 (Moderate) OLANZapine [Olanzapine] 10 mg PO DAILY 30 Days #30 tab Famotidine [Pepcid] 40 mg PO DAILY 30 Days #30 tab Polyethylene Glycol 3350 [Powderlax] 17 gm PO BID 30 Days #60 packet RX: Collagenase [Santyl Ointment*] 1 appl TOP DAILY 30 Days #2 tube RX: Ascorbic Acid [Vitamin C*] 500 mg PO DAILY 30 Days #30 tab RX: ALPRAZolam [Xanax*] 0.5 mg PO DAILY PRN #10 tab PRN Reason: Anxiety RX: Zinc Sulfate [Zinc Sulfate*] 220 mg PO DAILY 30 Days #30 cap RX: Sertraline [Zoloft*] 0.5 tab PO DAILY 60 Days #30 tab Physician Discharge Instructions: Physician discharge instructions: Patient presented with worsening right lower extremity pain/swelling and nonhealing gluteal wounds, secondary to right lower extremity cellulitis complicated by bilateral stage IV decubitus ulcers. He was evaluated by Dr. Moore, general surgeon, who recommended medical management with antibiotics, pain control, wound care/vac. No evidence to warrant surgical intervention at this time. Patient was initially given empiric rocephin / vancomycin and had some improvement of his symptoms. Urine culture grew E. coli ESBL and multi-drug resistant Morganella Morannii. Wound cultures grew E. coli ESBL and multi-drug resistant Proteus Mirabilis, however suspect contamination given the wounds never appeared acutely infected. Antibiotics were switched to merrem and doxycycline following culture results and patient continued to improve. Patient completed 1 week of doxycycline (11/04- 11/10) to cover cellulitis and 10 days of IV merrem (11/04-11/14) to treat UTI. Suspect UTI secondary to chronic indwelling suprapubic catheter. Patient's suprapubic catheter was replaced on 11/08. Patient was feeling better, leukocytosis resolved, afebrile > 48 hours, lower extremity pain resolved, and was deemed stable for discharge. Hospitalization prolonged secondary to disposition/placement. Case management were consulted for assistance but had some difficulty locating a facility that would accept patient given his extensive comorbidities, chronic wounds, prior h istory. Dr. Dela Cruz (psych) was consulted given his history of schizophrenia/bipolar disorder. Patient did reportedly have some auditory hallucinations, which he explained to me as a coping mechanism / the way he words things, he can see how someone might think he's hearing voices and denied having auditory hallucinations. Patient requested inpatient psych evaluation / transfer voluntarily given his history of PTSD, depression, paranoia. He was evaluated by [facility] who recommended inpatient psych placement. Multiple psych facilities were contacted and over several days - 1+week we received denials due to wound care needed. During this time, patient had overall improvement of his mood. No auditory hallucinations, and he felt he could continue current management at home and requested discharge. Home health was able to be set up, and he stated his would be doing wound care. He currently plans to move into a motel for a few days until he moves into an apartment. He exhibited no signs/symptoms that would demonstrate self-harming behavior and had decision making capacity. Patient clinically improved and deemed stable for discharge. refilled prescriptions for short course for xanax, norco. Recommend following up with PCP and Psychology in next 1-2 weeks for further management and refills of medications. Dr. Dela Cruz evaluated patient on 11/24, and recommended starting sertraline and zyprexa, continue ambien. Discussed with patient on avoidance of polypharmacy. He has been taking xanax, norco, ambien during hospitalization without issue. Patient plans on following up with his prior PCP, Dr. Meyers, who he has not seen in a long time. I reached out to Dr. Meyers who stated will have his office look into scheduling follow up appointment and will follow home health. Medications: short courses of [place], xanax, ambien prescribed. Patient was taking these at [facility] when admitted here. Pepcid sertraline zyprexa Will need to follow up with PCP/Psych/Pain doc for further refills continues other home medications not listed as previously prescribed Follow up: PCP 3-[address] [facility]1 week Psychology 1-2 weeks Please call to schedule / confirm appointments Followup: Checo Meyers DO [Primary Care Provider] - Raul Moore MD [ACTIVE - CAN ADMIT] -
== END 2023-11-25 20:32 | disposition home health service (06) | DRG 602 ==
LOC: ER 18:19 → ERHOLD 22:54 → 4TH 11-03 00:15
PROVIDERS: ADMIT Family Medicine; ATTEND Hospitalist
PROC: 0T9B70Z Drainage of Bladder with Drainage Device, Via Natural or Artificial Opening (ICD-10-PCS; principal; 2023-11-02)
DX: L03.115 Cellulitis of right lower limb (principal); L89.314 Pressure ulcer of right buttock, stage 4; L89.324 Pressure ulcer of left buttock, stage 4; T83.518A Infection and inflammatory reaction due to other urinary catheter, initial encounter; L03.317 Cellulitis of buttock; G82.20 Paraplegia, unspecified; N39.0 Urinary tract infection, site not specified; Z16.12 Extended spectrum beta lactamase (ESBL) resistance; Z16.24 Resistance to multiple antibiotics; D63.8 Anemia in other chronic diseases classified elsewhere; F20.9 Schizophrenia, unspecified; F41.9 Anxiety disorder, unspecified; F14.10 Cocaine abuse, uncomplicated; K59.09 Other constipation; F15.10 Other stimulant abuse, uncomplicated; K21.9 Gastro-esophageal reflux disease without esophagitis; D72.829 Elevated white blood cell count, unspecified; F17.210 Nicotine dependence, cigarettes, uncomplicated; Z93.3 Colostomy status; Z88.5 Allergy status to narcotic agent; Z88.8 Allergy status to other drugs, medicaments and biological substances; Z89.612 Acquired absence of left leg above knee; B96.20 Unspecified Escherichia coli [E. coli] as the cause of diseases classified elsewhere; B96.89 Other specified bacterial agents as the cause of diseases classified elsewhere; B96.4 Proteus (mirabilis) (morganii) as the cause of diseases classified elsewhere; Y84.8 Other medical procedures as the cause of abnormal reaction of the patient, or of later complication, without mention of misadventure at the time of the procedure
CPT/HCPCS: 36415; 80048; 80053; 80202; 80307; 81001; 82565; 83605; 83735; 84100; 85025; 85027; 85610; 85730; 87040; 87070; 87077; 87086; 87088; 87186; 87205; 93005; 99285; J0692; J0696; J1170; J1650; J2185; J2270; J2405; J3010; J3590; J7030; J7040; J7050

== ENCOUNTER 2023-11-28 23:48 | Inpatient (IN) | payer OTHER ==
[2023-11-29] MEDS ORDERED: ONDANSETRON 4 MG/2 ML VIAL ONE ×2 (00:29→02:33)
[2023-11-29] MEDS ORDERED: MORPHINE 4 MG/ML SYR ONE (00:29)
[2023-11-29] MEDS ORDERED: NA CHLORIDE 0.9% 100 ML ONE (00:29)
[2023-11-29] MEDS ORDERED: PIPERACIL/TAZO 3.375 GM VIAL IV ONE (00:29)
[2023-11-29] MEDS ORDERED: NA CHLORIDE 0.9% 1,000 ML ONE (00:30)
[2023-11-29 00:41] LABS: Absolute Eosinophils 0.1 K/uL (0-0.5); Absolute Lymphocytes (CBC) 0.7 K/uL (0.7-4.9); Absolute Monocytes 0.8 K/uL (0.1-1.3); Absolute Neutrophil 13.5 K/uL (1.8-8.0); Basophils % 0.2 % (0-1.3); Eosinophils % 0.8 % (0-4.4); Hematocrit 36.9 % (39.6-49.0); Hemoglobin 12.1 g/dL (13.6-17.9); Lymphocytes % 4.5 % (15.3-44.8); MCH 26.7 pg (27.0-35.0); MCHC 32.8 g/dL (32.0-36.0); MCV 81.4 fL (80-100); MPV 7.1 fL (7.6-11.3); Monocytes % 5.5 % (3.3-12.3); Platelets 472 thou/uL (152-406); RBC Red Blood Cell Count 4.54 M/uL (4.33-5.43); Red Cell Distribution Width 18.1 % (12.1-15.2)
[2023-11-29 00:46] LABS: PT Prothrombin Time 15.5 SECONDS (9.4-12.5); Protime INR 1.4
[2023-11-29 01:02] LABS: Albumin 3.4 g/dL (3.4-5.0); Albumin/Globulin Ratio 0.7 (1.1-1.8); Anion Gap 13.3 mEq/L (5.0-15.0); Bilirubin Direct 0.3 mg/dL (0-0.2); Bilirubin Indirect, Calculated 0.7 mg/dL (0.2-0.8); Globulin 5.2 g/dL (2.3-3.5); Magnesium 2.1 mg/dL (1.6-2.4); Potassium 3.3 mEq/L (3.5-5.1); Protein, Total 8.6 g/dL (6.4-8.2); Troponin High Sensitivity 12.8 pg/mL (<58.9)
[2023-11-29 01:10] LABS: Specific Gravity > 1.030 (1.005-1.030); Sqamous Epithelial <5 /HPF (None Seen); Urine Bacteria <20 /HPF (<20); Urine Bilirubin NEGATIVE (Negative); Urine Blood 3+ (Negative); Urine Clarity Extremely Turbid (Clear); Urine Color Yellow (Yellow); Urine Culture Reflex Order REFLEXED; Urine Glucose NEGATIVE (Negative); Urine Ketones 4+ (Over) (Negative); Urine Microscopic Reflex YN ORDER UMIC; Urine Mucus 4+ /HPF (None Seen); Urine Nitrite NEGATIVE (Negative); Urine Protein 3+ (Negative); Urine RBC >50 /HPF (None Seen); Urine Urobilinogen 1+ (Normal); Urine WBC 20-50 /HPF (<5); Urine pH 5.5 (5.0-7.0)
--- NOTE | 2023-11-29 01:21 | RAD REPORT ---
CLINICAL HISTORY: Cough. COMPARISON: XR Chest 07/08/2023. TECHNIQUE: XR CHEST 1 VIEW 11/28/2023 11:58 PM CDT FINDINGS: Cardiac silhouette is normal in size. Lungs are clear without consolidation, atelectasis, mass or carlos ma. There is no pleural effusion. There is no pneumothorax. There are no acute osseous findings. IMPRESSION: Clear lungs. Electronically signed by: Ej Henriquez MD 11/29/2023 12:42 AM CDT RP Due to temporary technical issues with the [employer] reporting system, reports are being sang d by the in-house radiologist without review as a courtesy to ensure prompt reporting the interpreting radiologist is fully responsible for the content of the report. Transcribed Date/Time: 11/29/2023 1:21 AM
[2023-11-29] MEDS ORDERED: VANCOMYCIN 1 GM/VIAL ONE (02:22)
[2023-11-29] MEDS ORDERED: NA CHLORIDE 0.9% 250 ML ONE (02:23)
--- NOTE | 2023-11-29 02:27 | RAD REPORT ---
EXAMINATION: CT ABDOMEN PELVIS WITH IV CONTRAST INDICATION: Male, 38 years old, ABD PAIN COMPARISON(S): CT chest/abdomen/pelvis 06/10/2021 TECHNIQUE: CT acquisition of the abdomen and pelvis following the administration of IV contrast. Zachary nal and sagittal reformatted images provided. This exam was performed according to departmental dose-optimization program which includes automated exposure control, adjustment of the mA and/or kV a ccording to patient size, and/or use of iterative reconstruction technique. FINDINGS: SUPPORT DEVICES: Suprapubic Gómez catheter in place. LOWER CHEST: Similar scarring/atelectasis in the lung bases. Unremarkable imaged heart. ABDOMEN AND PELVIS: Liver: Unchanged small hypoenhancing foci in the dome, along the gallbladder fossa, and along the fal ciform ligament without suspicious features. Gallbladder and bile ducts: Normal. Pancreas: Normal. Spleen: Normal. Adrenal glands: Normal. Kidneys and ureters: Normal. Bladder: Collapsed around a Gómez catheter with circumferential wall thickening. Reproductive organs: Mild scrotal edema suspected. GI tract: Normal caliber without wall thickening. Normal appendix. Vessels: Unremarkable. Lymph nodes: Multiple enlarged bilateral inguinal lymph nodes, and several enlarged bilateral iliac c joce lymph nodes. Peritoneum: No evidence of ascites, fluid collection, or free air. Abdominal wall: Development of full thickness sacral and bilateral ischial decubitus ulcers. No evide nce of fluid collection. MUSCULOSKELETAL: No acute fracture. Interval partial sacro-coccygectomy with sclerosis at the S4 rese ction margin. Sclerosis and remodeling of both ischial bones extending into the inferior pubic rami and posterior acetabulum. IMPRESSION: 1. No acute abdominopelvic finding. 2. Suspected mild scrotal edema, correlate with symptoms and physical exam. 3. Suprapubic Gómez catheter with circumferential bladder wall thickening likely representing chron ic cystitis. 4. Development of osteomyelitis with postsurgical change of the sacrum and coccyx since 2021. Full- thickness ischial decubitus ulcers are associated with chronic-appearing osteomyelitis of the pubic bones and posterior acetabula. 5. Multiple enlarged bilateral inguinal and iliac chain lymph nodes are probably reactive. Electronically signed by: Murtaza Diaz MD 11/29/2023 02:21 AM CDT RP Due to temporary technical issues with the [employer] reporting system, reports are being sang d by the in-house radiologist without review as a courtesy to ensure prompt reporting the interpreting radiologist is fully responsible for the content of the report. Transcribed Date/Time: 11/29/2023 2:27 AM
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
[2023-11-29 02:55] LABS: Blood Morphology Comment NOT SEEN (NOT SEEN); Platelet Estimate INCR; White Blood Cell Scan OK (OK)
[2023-11-29] MEDS ORDERED: ONDANSETRON 4 MG/2 ML VIAL IV PRN (03:04)
[2023-11-29] MEDS ORDERED: ACETAMINOPHEN 500 MG TAB PO PRN (03:04)
[2023-11-29] MEDS: Meropenem 500 MG in NA CHLORIDE 0.9% 100 ML IV SCH (04:03)
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
[2023-11-29 05:02] VITALS: BMI 27.2
[2023-11-29] MEDS: NA CHLORIDE 0.9% 1,000 ML IV SCH (06:57)
[2023-11-29 08:41] LABS: Magnesium 2.1 mg/dL (1.6-2.4); Phosphorus 2.6 mg/dL (2.5-4.9)
[2023-11-29] MEDS: ENOXAPARIN 40 MG/0.4 ML SQ SCH (09:19)
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
[2023-11-29] MEDS: POTASSIUM CL SA 10 MEQ TAB PO ONE (14:44)
[2023-11-29] MEDS: HYDROMORPHONE HCL 1 MG/ML INJ IV PRN (18:19)
[2023-11-29 21:35] VITALS: O2SAT 98
[2023-11-30 07:31] LABS: Absolute Eosinophils 0.1 K/uL (0-0.5); Absolute Lymphocytes (CBC) 0.8 K/uL (0.7-4.9); Absolute Monocytes 0.8 K/uL (0.1-1.3); Absolute Neutrophil 8.5 K/uL (1.8-8.0); Basophils % 0.3 % (0-1.3); Hematocrit 32.2 % (39.6-49.0); Hemoglobin 10.5 g/dL (13.6-17.9); Lymphocytes % 7.6 % (15.3-44.8); MCH 26.7 pg (27.0-35.0); MCHC 32.7 g/dL (32.0-36.0); MCV 81.7 fL (80-100); MPV 7.3 fL (7.6-11.3); Monocytes % 7.6 % (3.3-12.3); Neutrophils % 83.5 % (41.7-73.7); Platelets 429 thou/uL (152-406); RBC Red Blood Cell Count 3.94 M/uL (4.33-5.43); Red Cell Distribution Width 17.8 % (12.1-15.2)
[2023-11-30 07:47] LABS: Albumin/Globulin Ratio 0.6 (1.1-1.8); Anion Gap 11.5 mEq/L (5.0-15.0); Bilirubin Total 0.7 mg/dL (0.2-1.0); Globulin 4.8 g/dL (2.3-3.5); Potassium 3.5 mEq/L (3.5-5.1); Protein, Total 7.8 g/dL (6.4-8.2)
[2023-11-30] MEDS ORDERED: FLU (Fluarix Triv) TS24-25(6MOS UP)/PF 45 MCG/0.5 ML Syringe IM ONE (08:15)
[2023-11-30 08:25] VITALS: BP 117/71; TEMP 98.3
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
== END 2023-11-30 10:50 | disposition left against medical advice (07) | DRG 871 ==
LOC: ER 23:48 → 4TH 11-29 03:04
PROVIDERS: ADMIT Internal Medicine; ATTEND Hospitalist
DX: A41.9 Sepsis, unspecified organism (principal); L89.154 Pressure ulcer of sacral region, stage 4; L03.317 Cellulitis of buttock; G82.20 Paraplegia, unspecified; E87.1 Hypo-osmolality and hyponatremia; M86.68 Other chronic osteomyelitis, other site; F14.20 Cocaine dependence, uncomplicated; E87.6 Hypokalemia; K59.09 Other constipation; F41.9 Anxiety disorder, unspecified; G47.00 Insomnia, unspecified; F09 Unspecified mental disorder due to known physiological condition; K21.9 Gastro-esophageal reflux disease without esophagitis; D63.8 Anemia in other chronic diseases classified elsewhere; F19.10 Other psychoactive substance abuse, uncomplicated; N30.20 Other chronic cystitis without hematuria; F15.959 Other stimulant use, unspecified with stimulant-induced psychotic disorder, unspecified; T43.605A Adverse effect of unspecified psychostimulants, initial encounter; F17.210 Nicotine dependence, cigarettes, uncomplicated; Z93.3 Colostomy status; Z99.3 Dependence on wheelchair; Z88.5 Allergy status to narcotic agent; Z79.899 Other long term (current) drug therapy; Z89.612 Acquired absence of left leg above knee
CPT/HCPCS: 36415; 71045; 74177; 80048; 80053; 80076; 81001; 82550; 82947; 83605; 83690; 83735; 83880; 84100; 84132; 84484; 85025; 85610; 87040; 87077; 87086; 87088; 87186; 93005; J1170; J1650; J2405; J2543; J7030; J7050; Q9967

== ENCOUNTER 2023-11-30 19:04 | Emergency (ER) | payer OTHER ==
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
[2023-11-30 23:24] VITALS: BP 123/76; TEMP 97.6; O2SAT 99
== END 2023-12-01 00:37 | disposition home or self-care (01) ==
LOC: ER 19:04
DX: F15.10 Other stimulant abuse, uncomplicated (principal); L98.499 Non-pressure chronic ulcer of skin of other sites with unspecified severity; F20.9 Schizophrenia, unspecified
CPT/HCPCS: 99284

== ENCOUNTER 2023-11-30 20:29 | Emergency (ER) | payer OTHER ==
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
[2023-11-30] MEDS ORDERED: WATER FOR INJ,STERILE 10 ML ONE (23:21)
[2023-11-30] MEDS ORDERED: ZIPRASIDONE MESYLA 20 MG/VIAL IM ONE (23:21)
[2023-11-30] MEDS ORDERED: LORazepam 2 MG/ML VIAL ONE (23:21)
[2023-12-01 00:06] LABS: Absolute Lymphocytes (CBC) 0.8 K/uL (0.7-4.9); Absolute Neutrophil 7.9 K/uL (1.8-8.0); Basophils % 0.1 % (0-1.3); Eosinophils % 0.2 % (0-4.4); Hematocrit 32.7 % (39.6-49.0); Hemoglobin 10.6 g/dL (13.6-17.9); Lymphocytes % 8.6 % (15.3-44.8); MCH 26.4 pg (27.0-35.0); MCHC 32.4 g/dL (32.0-36.0); MCV 81.5 fL (80-100); MPV 7.6 fL (7.6-11.3); Monocytes % 9.8 % (3.3-12.3); Neutrophils % 81.3 % (41.7-73.7); Platelets 478 thou/uL (152-406); RBC Red Blood Cell Count 4.01 M/uL (4.33-5.43)
[2023-12-01 00:16] LABS: ALT/SGPT 47 U/L (16-61); AST/SGOT 49 U/L (15-37); Albumin 2.9 g/dL (3.4-5.0); Albumin/Globulin Ratio 0.6 (1.1-1.8); Alkaline Phosphatase 95 U/L (45-117); Anion Gap 14.3 mEq/L (5.0-15.0); BUN Blood Urea Nitrogen 4 mg/dL (7-18); Bicarbonate 21 mEq/L (21-32); Bilirubin Direct 0.2 mg/dL (0-0.2); Bilirubin Indirect, Calculated 0.6 mg/dL (0.2-0.8); Bilirubin Total 0.8 mg/dL (0.2-1.0); Globulin 5.2 g/dL (2.3-3.5); Glomerular Filtration Rate 145 ml/min (=/>90); Glucose Level 94 mg/dL (74-106); NT PRO-BNP 60 pg/mL (<125); Potassium 3.3 mEq/L (3.5-5.1); Protein, Total 8.1 g/dL (6.4-8.2); Sodium Level 133 mEq/L (136-145); Troponin High Sensitivity 4.6 pg/mL (<58.9)
[2023-12-01 00:40] LABS: PT Prothrombin Time 13.6 SECONDS (9.4-12.5); PTT, Activated Partial Thromb 31.8 SECONDS (24.3-36.9); Protime INR 1.22
[2023-12-01 02:13] VITALS: BP 140/72; TEMP 99; O2SAT 98
--- NOTE | 2023-12-03 12:00 | EKG ---
Test Date: 2023-11-30 Test Time: 23:31:51 Raw Hide Trimmer: ARACELI MEASUREMENT RESULTS: Intervals: Rate: 131 IN: 114 QRSD: 80 QT: 294 QTc: 434 [place]: P: 68 IN: 114 QRS: 91 T: 28 INTERPRETIVE STATEMENTS: Sinus tachycardia Rightward axis Borderline ECG Compared to ECG 11/30/2023 19:24:36 Right-axis deviation now present Electronically Signed On 12-03-23 11:54:07 CDT by Luis Daniel Bryant
--- NOTE | 2023-12-03 12:01 | EKG ---
Test Date: 2023-11-30 Test Time: 19:24:36 Tariff Compiling Clerk: SILVIA MEASUREMENT RESULTS: Intervals: Rate: 131 GA: 138 QRSD: 90 QT: 300 QTc: 443 [place]: P: 35 GA: 138 QRS: 78 T: 52 INTERPRETIVE STATEMENTS: Sinus tachycardia Otherwise normal ECG Compared to ECG 11/29/2023 00:42:47 No significant changes Electronically Signed On 12-03-23 11:54:17 CDT by Luis Daniel Bryant
== END 2023-12-01 00:24 | disposition short-term general hospital (02) ==
LOC: ER 20:29
DX: F55.8 Abuse of other non-psychoactive substances (principal); T43.625A Adverse effect of amphetamines, initial encounter; M86.9 Osteomyelitis, unspecified; M62.82 Rhabdomyolysis; L89.154 Pressure ulcer of sacral region, stage 4; L03.312 Cellulitis of back [any part except buttock and flank]; G82.20 Paraplegia, unspecified; F31.9 Bipolar disorder, unspecified
CPT/HCPCS: 93005 ×2; 85025; 80048; 36415; 83735; 82550; 85610; 80076; 85730; 84484; 83880; 80143; 80179; 82077; J3486; 96372; 96374; 99284

== ENCOUNTER 2024-04-13 00:35 | Emergency (ER) | payer OTHER ==
[2024-04-13] MEDS ORDERED: DIAZEPAM 10 MG/2 ML INJ SYRINGE ONE (00:55)
[2024-04-13] MEDS ORDERED: NA CHLORIDE 0.9% 1,000 ML ONE ×2 (00:56→02:17)
[2024-04-13 01:20] LABS: Anion Gap 12.5 mEq/L (5.0-15.0); Potassium 3.5 mEq/L (3.5-5.1)
[2024-04-13 01:59] LABS: Barbiturates NEGATIVE (NEGATIVE); Benzodiazepines NEGATIVE (NEGATIVE); Cocaine POSITIVE (NEGATIVE); METHAMPHETAM POSITIVE (NEGATIVE); Methadone NEGATIVE (NEGATIVE); Opiates NEGATIVE (NEGATIVE); Phencyclidine NEGATIVE (NEGATIVE); THC Cannibis NEGATIVE (NEGATIVE)
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
[2024-04-13 04:26] VITALS: BP 116/72; TEMP 97.3; O2SAT 98
[2024-04-13 04:37] LABS: Anion Gap 13.3 mEq/L (5.0-15.0); Potassium 3.3 mEq/L (3.5-5.1)
== END 2024-04-13 04:16 | disposition home or self-care (01) ==
LOC: ER 00:35
DX: R45.1 Restlessness and agitation (principal); T43.625A Adverse effect of amphetamines, initial encounter; F41.9 Anxiety disorder, unspecified; F17.210 Nicotine dependence, cigarettes, uncomplicated
CPT/HCPCS: 80048 ×2; 36415; 82550 ×2; 80307; J7030 ×2; 96360; 96361; 99285; J3360

== ENCOUNTER 2024-04-14 18:12 | Emergency (ER) | payer OTHER ==
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
[2024-04-14 20:06] VITALS: TEMP 98.4
[2024-04-14 20:07] VITALS: BP 110/65; O2SAT 100
== END 2024-04-14 19:55 | disposition home or self-care (01) ==
LOC: ER 18:12
DX: Z43.3 Encounter for attention to colostomy (principal); T83.098A Other mechanical complication of other urinary catheter, initial encounter; F20.9 Schizophrenia, unspecified
CPT/HCPCS: 99283

== ENCOUNTER 2024-04-15 02:09 | Emergency (ER) | payer OTHER ==
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
[2024-04-15 02:35] VITALS: BP 110/64; TEMP 98; O2SAT 99
== END 2024-04-15 02:31 | disposition home or self-care (01) ==
LOC: ER 02:09
DX: R07.0 Pain in throat (principal); Z77.098 Contact with and (suspected) exposure to other hazardous, chiefly nonmedicinal, chemicals
CPT/HCPCS: 99283

== ENCOUNTER 2024-04-19 04:42 | Emergency (ER) | payer OTHER ==
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
[2024-04-19 06:17] VITALS: TEMP 97.7
[2024-04-19 06:18] VITALS: BP 148/80; O2SAT 97
== END 2024-04-19 06:12 | disposition home or self-care (01) ==
LOC: ER 04:42
DX: Z46.6 Encounter for fitting and adjustment of urinary device (principal)

== ENCOUNTER 2024-04-20 14:47 | Emergency (ER) | payer OTHER ==
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
[2024-04-20 23:39] VITALS: BP 116/66; TEMP 99.2; O2SAT 99
== END 2024-04-20 23:33 | disposition left against medical advice (07) ==
LOC: ER 14:47
DX: L89.329 Pressure ulcer of left buttock, unspecified stage (principal); L89.319 Pressure ulcer of right buttock, unspecified stage; R45.1 Restlessness and agitation; R45.4 Irritability and anger; Z72.0 Tobacco use

== ENCOUNTER 2024-04-22 01:18 | Emergency (ER) | payer OTHER ==
--- NOTE | 2024-04-22 03:18 | EDPHYS ---
Physician Documentation [facility] Name: Marshall Cook Age: 38 yrs Sex: Male : 1985 Arrival Date: 04/22/2024 Time: 01:18 Bed 14 Private MD: ED Physician Micah Chaudhary HPI: 04/22 02:16 This 38 yrs old Male presents to ER via Unassigned with complaints of Butt sp4 Ulcers. 05:10 Patient presents with EMS for complaint of bilateral buttock ulcers.. sp4 - Family history:: not pertinent. ROS: 05:10 Constitutional: Negative for fever, chills, and weight loss, positive bilateral buttock sp4 ulcers 05:10 All other systems are negative, Exam: 05:10 Constitutional: Patient is wheelchair-bound male with signs of physical debility, sp4 paraplegia, left above-knee amputation, indwelling Gómez catheter, colostomy, ill-appearing but nontoxic Head/Face: Normocephalic, atraumatic. Eyes: Pupils equal round and reactive to light, extra-ocular motions intact. Lids and lashes normal. Conjunctiva and sclera are not injected. Cornea within normal limits. Periorbital areas with no swelling, redness, or edema. ENT: Nares patent. No nasal discharge, no septal abnormalities noted. Tympanic membranes are normal and external auditory canals are clear. Oropharynx with no redness, swelling, or masses, exudates, or evidence of obstruction, uvula midline. Mucous membranes moist. Neck: Trachea midline, no thyromegaly or masses palpated, and no cervical lymphadenopathy. Supple, full range of motion without nuchal rigidity, or vertebral point tenderness. Chest/axilla: Normal chest wall appearance and motion. Nontender with no deformity. No lesions are appreciated. Cardiovascular: Regular rate and rhythm with a normal S1 and S2. No gallops, murmurs, or rubs. Normal PMI, no JVD. No pulse deficits. Respiratory: Lungs have equal breath sounds bilaterally, clear to auscultation and percussion. No rales, rhonchi or wheezes noted. No increased work of breathing, no retractions or nasal flaring. Abdomen/GI: Soft, with normal bowel sounds. No distension or tympany. No guarding or rebound. No evidence of tenderness throughout. Positive for left lower abdominal colostomy and indwelling Gómez catheter. Back: No spinal tenderness. No costovertebral tenderness. Male : Normal genitalia with no discharge or lesions. Positive for indwelling Gómez catheter. Skin: Warm, dry with normal turgor. Normal color, MS/ Extremity: Pulses equal, no cyanosis. Left above-knee amputation, diffuse muscular atrophy and paraplegia. Neuro: Awake and alert, GCS 15, oriented to person, place, time, and situation. Paraplegic male [place] Coma Score: 05:10 Eye Response: spontaneous(4). Motor Response: obeys commands(6). Verbal Response: sp4 oriented(5). Total: 15. MDM: 02:17 Medical Screening Exam initiated sp4 05:10 Differential diagnosis: varicella, allergic reaction, parasite infection. ED course: sp4 Was in the waiting area awaiting to be brought in the room for examination of his buttock ulcers. Patient then eloped from the waiting area.. 05:10 Data reviewed: vital signs, nurses notes, EMS record, old medical records. ED course: sp4 At this status elopement/ he was evaluated briefly while on EMS stretcher, and then placed in a waiting area, patient presented for evaluation of buttock ulcers but subsequently eloped from the waiting area.. Administered Medications: No medications were administered Disposition: 05:14 Chart complete. sp4 Disposition Summary: 04/22/24 03:18 Eloped Notes: Disposition: before being seen by provider br2 Reason: other br2 Signatures: Micah Chaudhary MD MD sp4 Pricila Pierre RN RN br2 Corrections: (The following items were deleted from the chart) 05:10 05:10 Patient presents with EMS for complaint of acute bilateral buttock ulcers.. sp4 sp4
--- NOTE | 2024-04-22 03:18 | ER ---
Nurse's Notes [facility] Name: Marshall Cook Age: 38 yrs Sex: Male : 1985 Arrival Date: 04/22/2024 Time: 01:18 Bed 14 Private MD: Diagnosis: - Family history:: not pertinent. [place] Coma Score: 04/22 05:10 Eye Response: spontaneous(4). Motor Response: obeys commands(6). Verbal Response: sp4 oriented(5). Total: 15. ED Course: 01:55 Patient arrived in ED. gm2 02:16 Micah Chaudhary MD is Attending Physician. sp4 Administered Medications: No medications were administered Outcome: 03:18 Patient left the ED. br2 Signatures: Micah Chaudhary MD MD sp4 Carina Marr gm2 Pricila Pierre RN RN br2
== END 2024-04-22 03:18 | disposition left against medical advice (07) ==
LOC: ER 01:18
DX: Z02.9 Encounter for administrative examinations, unspecified (principal)

== ENCOUNTER 2024-04-23 07:21 | Emergency (ER) | payer OTHER ==
[2024-04-23] MEDS ORDERED: NA CHLORIDE 0.9% 1,000 ML ONE (08:24)
[2024-04-23 10:10] LABS: Albumin 2.3 g/dL (3.4-5.0); Albumin/Globulin Ratio 0.5 (1.1-1.8); Anion Gap 9.8 mEq/L (5.0-15.0); Bilirubin Total 0.3 mg/dL (0.2-1.0); Globulin 5.1 g/dL (2.3-3.5); Potassium 3.8 mEq/L (3.5-5.1); Protein, Total 7.4 g/dL (6.4-8.2)
[2024-04-23 10:16] LABS: Absolute Lymphocytes (CBC) 1.2 K/uL (0.7-4.9); Absolute Monocytes 0.8 K/uL (0.1-1.3); Absolute Neutrophil 4.8 K/uL (1.8-8.0); Basophils % 0.4 % (0-1.3); Eosinophils % 0.3 % (0-4.4); Hematocrit 29.5 % (39.6-49.0); Hemoglobin 9.4 g/dL (13.6-17.9); Lymphocytes % 16.8 % (15.3-44.8); MCH 24.5 pg (27.0-35.0); MCV 76.7 fL (80-100); MPV 6.9 fL (7.6-11.3); Monocytes % 12.2 % (3.3-12.3); Neutrophils % 70.3 % (41.7-73.7); Platelets 541 thou/uL (152-406); RBC Red Blood Cell Count 3.85 M/uL (4.33-5.43); Red Cell Distribution Width 18.9 % (12.1-15.2)
--- NOTE | 2024-04-23 10:42 | RAD REPORT ---
EXAMINATION: CT HEAD WITHOUT CONTRAST CT CERVICAL SPINE WITHOUT CONTRAST CLINICAL INDICATION: Male, 38 years old. Headache;Pain TECHNIQUE: Axial CT images from the skull base to the vertex without intravenous contrast. Axial CT i mages through the cervical spine were obtained without intravenous contrast. Sagittal and coronal reformatted images were created from the data set. Coronal and sagittal reformatted images were creat ed from the data set. One or more of the following dose reduction techniques were used: Automated exposure control, adjustment of the mA and/or kV according to patient size, and/or iterative reconstr uction. Unless otherwise specified, incidental findings do not require dedicated imaging follow-up. [id number]. COMPARISON: No prior exam. FINDINGS: Head: INTRACRANIAL: No acute intracranial hemorrhage. No hydrocephalus. No mass effect or midline shift. No significant white matter disease. VASCULATURE: No visualized abnormalities in the arteries or dural venous sinuses. SCALP/SKULL: No calvarial fracture identified. No acute soft tissue abnormality. SINUSES: The visualized paranasal sinuses are mostly clear. No significant mastoid fluid. Cervical spine: ALIGNMENT: The cervical spine has normal alignment without scoliosis or spondylolisthesis. BONE: Vertebral body heights are maintained. No aggressive osseous lesions. DEGENERATIVE: No significant focal degenerative changes. SOFT TISSUE: No significant abnormalities in the soft tissue of the neck. The visualized lung apices are clear. IMPRESSION: No acute intracranial abnormality. No acute fracture or traumatic malalignment of the cervical spine.
--- NOTE | 2024-04-23 10:49 | RAD REPORT ---
EXAM: CT CHEST, ABDOMEN AND PELVIS WITHOUT CONTRAST CLINICAL INDICATION: Male, 38 years old PAIN TECHNIQUE: CT chest, abdomen and pelvis was performed, without IV contrast, as per department protoco l. Axial, sagittal and coronal reconstructions were obtained. One or more of the following dose reduction techniques were used: Automated exposure control, adjustment of the mA and/or kV according to the patient size, and/or iterative reconstruction. Unless otherwise specified, incidental findings do not require dedicated imaging follow-up. [id number]. COMPARISON: CT 11/29/2023, 09/02/2021 FINDINGS: The lack of intravenous contrast limits the sensitivity of this exam for evaluation of solid visceral organs, vascular structures, and retroperitoneum. THORAX: LOWER NECK AND CHEST WALL: Visualized thyroid gland and soft tissues are normal. LUNGS AND AIRWAYS: Airways are clear. No evidence of airspace or interstitial process.Pleural-based n odules along the right middle lobe and lateral right lower lobe are similar to prior. PLEURA: No pleural effusion. No pneumothorax. MEDIASTINUM AND LYMPH NODES: No mediastinal mass or fluid collection. Normal size mediastinal, hilar, and axillary lymph nodes. THORACIC AORTA: No thoracic aortic aneurysm. PULMONARY ARTERIES: Caliber is within normal limits. HEART: Normal heart size. No coronary calcifications.No significant pericardial effusion. ABDOMEN/PELVIS: UPPER GI: No significant abnormality. LIVER: No significant focal abnormality. GALLBLADDER/BILE DUCTS: No biliary ductal dilatation.? PANCREAS: No mass, ductal dilation, or bernardo-pancreatic fluid. SPLEEN: Unremarkable. ADRENALS: No adrenal masses. KIDNEYS AND URETERS: No hydronephrosis.No suspicious renal mass. ABDOMINAL AORTA AND OTHER VESSELS: Normal caliber aorta and IVC. PERITONEUM: No abnormal free fluid. No free air. LYMPH NODES: No pathologic lymphadenopathy. ABDOMINAL WALL: Unremarkable SMALL BOWEL/COLON: Small bowel has normal course and caliber. No colonic wall thickening or pericolon ic inflammatory changes.Left lower quadrant colostomy. Normal appendix URINARY BLADDER: Suprapubic catheter. Nonspecific bladder wall thickening. REPRODUCTIVE ORGANS: No pathologic process. COMBINED: MUSCULOSKELETAL: Decubitus ulcers which overlie both the right and left ischium. At least chronic ost eomyelitis is suspected given the underlying sclerosis of the bones.. ADDITIONAL FINDINGS: None. IMPRESSION: No acute findings within the chest, abdomen, or pelvis. Possible chronic osteomyelitis at the right and left ischium which is similar to 11/29/2023 Other incidental findings as noted above.
[2024-04-23 10:57] LABS: Barbiturates NEGATIVE (NEGATIVE); Benzodiazepines NEGATIVE (NEGATIVE); Cocaine POSITIVE (NEGATIVE); METHAMPHETAM NEGATIVE (NEGATIVE); Methadone NEGATIVE (NEGATIVE); Opiates NEGATIVE (NEGATIVE); Phencyclidine NEGATIVE (NEGATIVE); THC Cannibis NEGATIVE (NEGATIVE)
[2024-04-23 10:58] LABS: Specific Gravity 1.023 (1.005-1.030); Sqamous Epithelial None Seen /HPF (None Seen); Urine Bacteria <20 /HPF (<20); Urine Bilirubin NEGATIVE (Negative); Urine Blood 2+ (Negative); Urine Clarity Extremely Turbid (Clear); Urine Color Yellow (Yellow); Urine Culture Reflex Order REFLEXED; Urine Glucose NEGATIVE (Negative); Urine Ketones NEGATIVE (Negative); Urine Microscopic Reflex YN ORDER UMIC; Urine Mucus 4+ /HPF (None Seen); Urine Nitrite NEGATIVE (Negative); Urine Protein 1+ (Negative); Urine RBC 21-50 /HPF (None Seen); Urine Urobilinogen 1+ (Normal); Urine WBC 20-50 /HPF (<5)
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
[2024-04-23 12:26] VITALS: TEMP 98.1
[2024-04-23 12:28] VITALS: BP 135/115; O2SAT 97
== END 2024-04-23 12:21 | disposition home or self-care (01) ==
LOC: ER 07:21
DX: L89.154 Pressure ulcer of sacral region, stage 4 (principal); T83.098A Other mechanical complication of other urinary catheter, initial encounter; F14.10 Cocaine abuse, uncomplicated; D64.9 Anemia, unspecified; F31.9 Bipolar disorder, unspecified; G82.20 Paraplegia, unspecified; Z72.0 Tobacco use
CPT/HCPCS: 96361; 87088; 85025; 81001; 87086; 36415; 80053; 80307; 70450; 71250; 72125; 74176; 96360; 99285; 51702; J7030

== ENCOUNTER 2024-04-24 17:34 | Emergency (ER) | payer OTHER ==
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
[2024-04-24] MEDS ORDERED: SMZ./TMP. 800/160 MG TABLET ONE (20:10)
[2024-04-24] MEDS ORDERED: MAGNESIUM CITRATE 300 ML BOT ONE (21:36)
[2024-04-24 22:29] VITALS: BP 135/86; TEMP 99.1; O2SAT 97
== END 2024-04-24 22:01 | disposition home or self-care (01) ==
LOC: ER 17:34
DX: L89.154 Pressure ulcer of sacral region, stage 4 (principal); G82.20 Paraplegia, unspecified; Z72.0 Tobacco use
CPT/HCPCS: 99284

== ENCOUNTER 2024-04-25 02:56 | Emergency (ER) | payer OTHER ==
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
== END 2024-04-25 03:27 | disposition home or self-care (01) ==
LOC: ER 02:56
DX: R07.9 Chest pain, unspecified (principal); R06.02 Shortness of breath; Z72.0 Tobacco use
CPT/HCPCS: 99282